=== PATIENT | female | born 1995 | race Caucasian/White ===

== ENCOUNTER 2024-01-27 18:59 | Outpatient (REF) | payer BC, OTHER, SELFPAY ==
[2024-02-02 09:09] LABS: Age Gdln ACOG Testing Note (.); IGP, rfx Aptima HPV ASCU Note (.)
== END 2024-01-27 19:00 | disposition home or self-care (01) ==
LOC: LAB 18:59
PROVIDERS: PCP Family Medicine; Visit Provider Physician Assistant
DX: Z01.419 Encounter for gynecological examination (general) (routine) without abnormal findings (principal)
CPT/HCPCS: 88175

== ENCOUNTER 2024-02-03 10:31 | Outpatient (OUT) | payer BC, OTHER, SELFPAY ==
--- NOTE | 2024-02-03 10:34 | US_ITS ---
[address] [address] Patient Name: FAHEEM BABB MRN: [id number] date: 1995 Sex: F Assigned Patient Location: [facility] Current Patient Location: LAB Accession/Order Number: [id number] Exam Date: 02/03/2024 10:36 Report Date: 02/03/2024 11:31 At the request of: TRISTA BIRCH Procedure: US pelvis EXAMINATION: US pelvis HISTORY: PELVIC PAIN for 6 months increasing in severity COMPARISON: No relevant comparison available. TECHNIQUE: Transabdominal and/or transvaginal sonographic examination was performed as indicated by examination type. FINDINGS: UTERUS: Normal size and appearance. Uterus size: 9.1 x 3.0 x 4.7 cm ENDOMETRIUM: Normal homogeneous appearance. Endometrial thickness: 4 mm RIGHT OVARY: Normal size and appearance. Duplex Doppler demonstrates normal waveform and flow; resistive index 0.5. Ovary size: 4.0 x 2.3 x 3.9 cm LEFT OVARY: Normal size and appearance. Duplex Doppler demonstrates normal waveform and flow; resistive index 0.6. Ovary size: 4.5 x 2.3 x 2.4 cm CUL-DE-SAC: Unremarkable. No significant free fluid. BLADDER: Unremarkable. OTHER: None. US/US pelvis IMPRESSION: 1. Normal pelvic ultrasound. Electronically authenticated by: FERMIN JIMENEZ Date: 02/03/2024 11:31
== END 2024-02-03 10:32 | disposition home or self-care (01) ==
LOC: NOMS 10:32
PROVIDERS: PCP Family Medicine; Visit Provider Obstetrics & Gynecology
DX: R10.2 Pelvic and perineal pain (principal)
CPT/HCPCS: 76856

== ENCOUNTER 2024-03-21 12:39 | Outpatient (OUT) | payer BC, OTHER, SELFPAY ==
--- NOTE | 2024-03-21 12:54 | XR_ITS ---
The [address] [address] Patient Name: FAHEEM BABB MRN: [id number] date: 1995 Sex: F Assigned Patient Location: US Current Patient Location: US Accession/Order Number: [id number] Exam Date: 03/21/2024 13:38 Report Date: 03/22/2024 11:48 At the request of: PURNIMA PINEDO Procedure: XR abdomen 1V EXAMINATION: XR abdomen 1V HISTORY: Kidney Stones COMPARISON: Ultrasound renal bilateral 03/21/2024 FINDINGS: KIDNEY/URETER - RIGHT: No visible renal or ureteral calcifications. KIDNEY/URETER - LEFT: No visible renal or ureteral calcifications. PELVIS: No convincing ureteral stones. Tiny calcification within lower right and lower left pelvis are nonspecific but favor phleboliths. BOWEL: No abnormal dilation or deviation. BONES: No acute abnormality. OTHER: Negative. No abnormal gaseous collections. XR/XR abdomen 1V IMPRESSION: 1. No visible urinary tract calculi on this study. Evaluation is limited by dense overlying bowel content. 2. Ultrasound of the kidneys performed on the same day showed several nonobstructing stones within the kidneys. Electronically authenticated by: FERMIN JIMENEZ Date: 03/22/2024 11:48
--- NOTE | 2024-03-21 12:54 | US_ITS ---
The [address] [address] Patient Name: FAHEEM BABB MRN: [id number] date: 1995 Sex: F Assigned Patient Location: US Current Patient Location: Accession/Order Number: [id number] Exam Date: 03/21/2024 12:58 Report Date: 03/22/2024 06:57 At the request of: PURNIMA PINEDO Procedure: US renal BI EXAMINATION: US renal BI HISTORY: Kidney Stones COMPARISON: No relevant comparison available. TECHNIQUE: Ultrasound examination was performed of the kidneys and urinary bladder. FINDINGS: RIGHT KIDNEY: Contain several small nonobstructing stones. Normal parenchymal echogenicity. Color Doppler demonstrates blood flow within the kidney. Kidney: 11.3 x 4.4 x 4.7 cm LEFT KIDNEY: Contain several nonobstructing stones, largest is 6 mm. Normal parenchymal echogenicity. Color Doppler demonstrates blood flow within the kidney. Kidney: 11.6 x 5.3 x 5.5 cm BLADDER: No visible wall thickening, mass, or calculi. Post void residual: 5 mL URETERAL JETS: Visualized bilaterally. US/US renal BI IMPRESSION: 1. Bilateral nonobstructing nephrolithiasis. Electronically authenticated by: FERMIN JIMENEZ Date: 03/22/2024 06:57
== END 2024-03-21 12:40 | disposition home or self-care (01) ==
LOC: US 12:40
PROVIDERS: PCP Family Medicine; Visit Provider Nurse Practitioner Family
DX: N20.0 Calculus of kidney (principal)
CPT/HCPCS: 74018; 76775

== ENCOUNTER 2024-03-21 12:43 | Outpatient (OUT) | payer BC, OTHER, SELFPAY | END 2024-03-21 12:44 | disposition home or self-care (01) | LOC: PST 12:43 | PROVIDERS: PCP Family Medicine; Visit Provider Obstetrics & Gynecology | DX: Z01.818 Encounter for other preprocedural examination (principal); R10.2 Pelvic and perineal pain ==

== ENCOUNTER 2024-04-01 07:07 | Day surgery (SDC) | payer BC, OTHER, SELFPAY ==
[2024-03-21 14:37] VITALS: BP 112/73; PULSE 68; TEMP 36.4; O2SAT 99; BMI 22.0
[2024-04-01] VITALS (12 sets, daily range): BP systolic 95–114; BP diastolic 62–81; PULSE 70–94; TEMP 36.1–36.3; O2SAT 95–100; BMI 22.0
--- OUTSIDE RECORDS SUMMARY | 2024-04-01 07:12 | XMS_ITS | CCD ---
Author Organization [facility] ion Partnership [facility] Care Team Providers Care Exhibition Specialist Name Role Phone Sri Ramírez MD Primary Care Provider JASON FABIAN Referring Unavailable DESIREE SRI Samaria Primary Care Unavailable JASON FABIAN Referring Unavailable DESIREE SRI Samaria Primary Care Unavailable JASON FABIAN Referring Unavailable DESIREE SRI Samaria Primary Care Unavailable JASON FABIAN Referring Unavailable DESIREE SRI Samaria Primary Care Unavailable DESIREE, DR BAER Primary Care Unavailable BK DENT Admitting Unavailable BK DENT Attending Unavailable DEVAUGHNCHALISA VALDEZ Consulting Unavailable MAXIM, DR WESTON Admitting Unavailable MAXIM, DR WESTON Attending Unavailable DESIREE, DR BAER Primary Care Unavailable MAXIM, DR WESTON Consulting Unavailable DESIREE SRI Samaria Primary Care Unavailable DILCIA LAZO Attending Unavailable Desiree DILLON Sri Samaria Primary Care Provider Kayla Kahn DO Unavailable [phone] [place] BRUNSON-Elvie ENCISO Unavailable SRI RAMÍREZ Primary Care Physician [phone] Kayla Kahn DO R Unavailable SRI RAMÍREZ Attending Unavailable ELVIE BARAHONA Attending Unavailab ALEXIS Camacho Attending Unavailable ALEXIS DONG Attending Unavailable ALEXIS DONG Referring Unavailable SRI RAMÍREZ Attending Unavailable ELVIE BARAHONA Attending Unavailab ELVIE Singer Attending Unavailab TRISTA El Attending Unavailable DAJA EPPERSON Attending Unavailable TRISTA PAN Attending Unavailable TRISTA PAN Attending Unavailable Bonita Yu Attending Unavailable Bonita Yu Attending Unavailable Mitra Ellis Admitting Unavailable Mitra Ellis Attending Unavailable Allergies Allergy Classification Reported Allergen(s) Allergy Type Date of Onset Reaction(s) Facility (16 sources) Bacitracin / Polymyxin B; Translations: [bacitracin-taylor ymyxin B topical] Drug Allergy 3 Unknown (qualifier value) [facility] (16 sources) busPIRone; Translations: [buspirone] Drug Allergy 3 Anxiety, Anxiety (finding) [facility] (16 sources) Escitalopram; Translations: [escitalopram] Drug Allergy 3 Other, Drowsy (finding) [facility] (1 source) busPIRone; Translations: [BuSpar] Drug Allergy [facility] (1 source) Escitalopram; Translations: [Lexapro] Drug Allergy [facility] (1 source) Bacitracin-Poly myxin; Translations: [Bacitracin-Taylor ymyxin] Propensity to adverse reactions (disorder) [facility] Medications Current Medications Medication Drug Class(es) Dates Sig (Normalized) Sig (Original) azithromycin 500 mg oral tablet (4 sources) Macrolide Antimicrobial Start: 02-15-2024 take 1 tablet by mouth once daily azithromycin (Zithromax) 500 MG tablet Indications: Bacterial infection due to mycoplasma Day 1: Take 2 tablets PO onetime dose; Day 2,3,4: Take 1 tablet daily 5 tablet 02/15/2024 Active Clindamycin (1 source) Lincosamide Antibacterial Start: 03-09-2024 End: 03-10-2024 Clindamycin Phosphate (Xaciato) 2 % gel Indications: Bacterial vaginosis Insert 1 applicator into the vagina at bedtime for 1 day 8 g 03/09/2024 03/10/2024 Active doxycycline hyclate 100 mg oral capsule (9 sources) Tetracycline-class Drug Start: 02-15-2024 End: 02-22-2024 doxycycline (Vibramycin) 100 MG capsule Indications: Bacterial infection due to mycoplasma Take 1 capsule (100 mg) by mouth in the morning and 1 capsule (100 mg) before bedtime. Do all this for 7 days. Take with at least 8 ounces (large glass) of water, do not lie down for 30 minutes after. 14 capsule 02/15/2024 02/22/2024 Active Start: 01-11-2024 End: 2024 doxycycline (Vibramycin) 100 MG capsule Indications: Pelvic pain in female Take 1 capsule (100 mg) by mouth in the morning and 1 capsule (100 mg) before bedtime. Take with at least 8 ounces (large glass) of water, do not lie down for 30 minutes after. 60 capsule 01/11/2024 2024 Active escitalopram 5 mg oral tablet (4 sources) Serotonin Reuptake Inhibitor Start: 06-08-2021 escitalopram (LEXAPRO) 5 MG tablet metroNIDAZOLE 0.0075 mg/mg vaginal gel (6 sources) Nitroimidazole Antimicrobial Start: 03-09-2024 End: 03-14-2024 metroNIDAZOLE (Metrogel) 0.75 % vaginal gel Indications: Bacterial vaginosis Insert into the vagina Daily for 5 days 70 g 03/09/2024 03/14/2024 Active Start: 2024 End: 02-17-2024 take 1 tablet by mouth in the morning metroNIDAZOLE (Flagyl) 500 MG tablet Indications: BV (bacterial vaginosis) Take 1 tablet (500 mg) by mouth in the morning and 1 tablet (500 mg) before bedtime. Do all this for 7 days. Do not drink alcohol while taking this medication. 14 tablet 2024 02/17/2024 Active Start: 01-13-2024 End: 01-27-2024 take 1 tablet by mouth in the morning metroNIDAZOLE (Flagyl) 500 MG tablet Indications: BV (bacterial vaginosis) Take 1 tablet (500 mg) by mouth in the morning and 1 tablet (500 mg) before bedtime. Do all this for 7 days. Do not drink alcohol while taking this medication. 14 tablet 01/13/2024 01/27/2024 Discontinued moxifloxacin 400 mg oral tablet (2 sources) Quinolone Antimicrobial Start: 02-15-2024 End: 02-22-2024 take 1 tablet by mouth once daily moxifloxacin (Avelox) 400 MG tablet Indications: Bacterial infection due to mycoplasma Take 1 tablet (400 mg) by mouth Daily for 7 days start medication AFTER completing course of Doxycycline & Azithromycin. 7 tablet 02/15/2024 02/22/2024 Active polyethylene glycol 3350 17757 mg powder for oral solution (4 sources) Osmotic Laxative Start: 06-12-2021 End: 07-12-2021 polyethylene glycol (GLYCOLAX) 17 GM/SCOOP powder Take 17 g by mouth daily 1530 g 1 06/12/2021 07/12/2021 Active tamsulosin hydrochloride 0.4 mg oral capsule (4 sources) alpha-Adrenergic Yaquelin Start: 06-12-2021 take 1 capsule by mouth once daily tamsulosin (FLOMAX) 0.4 MG capsule Take 1 capsule by mouth daily 30 capsule 0 06/12/2021 Active Completed/Discontinued Medications Medication Drug Class(es) Dates Sig (Normalized) Sig (Original) atomoxetine 40 mg oral capsule (3 sources) Norepinephrine Reuptake Inhibitor End: 01-11-2024 take 1 capsule by mouth once daily atomoxetine (Strattera) 40 MG capsule Take 1 capsule by mouth Daily 01/11/2024 Discontinued (Other) sertraline 25 mg oral tablet (3 sources) Serotonin Reuptake Inhibitor Start: 11-16-2023 End: 11-15-2024 take 1 tablet by mouth once daily sertraline (Zoloft) 25 MG tablet Indications: Generalized anxiety disorder (CMS/HCC) Take 1 tablet (25 mg) by mouth Daily 30 tablet 1 11/16/2023 01/11/2024 Discontinued (Other) Problems Active Problems Problem Classification Problem Date Documented Da te Episodic/Chronic Abdominal pain (20 sources) Suprapubic pain; Translations: [Pelvic and perineal pain] Onset: 09-06-2022 Episodic Adjustment disorders (16 sources) Adjustment disorder with mixed anxiety and depressed mood; Translations: [Adjustment disorder with mixed anxiety and depressed mood] Onset: 09-06-2022 09-06-2022 Chronic Allergic reactions (1 source) Unspecified contact dermatitis, unspecified cause; Translations: [UNS CONTACT DERMATITIS UNS CAUSE] Onset: 05-05-2022 Episodic Anxiety disorders (20 sources) Anxiety; Translations: [Anxiety disorder, unspecified] Onset: 09-06-2022 09-06-2022 Chronic Bacterial infection; unspecified site (6 sources) Mycoplasma infection; Translations: [Mycoplasma infection, unspecified site] Onset: 02-15-2024 02-15-2024 Episodic Calculus of urinary tract (11 sources) Kidney stone; Translations: [Calculus of kidney] Onset: 07-25-2013 03-27-2014 Episodic Genitourinary symptoms and ill-defined conditions (13 sources) Dysuria; Translations: [Dysuria] Onset: 03-01-2024 Episodic Inflammatory diseases of female pelvic organs (7 sources) Bacterial vaginosis; Translations: [Acute vaginitis] Onset: 02-15-2024 02-15-2024 Episodic Menstrual disorders (20 sources) Amenorrhea; Translations: [Amenorrhea, unspecified] Onset: 09-06-2022 09-06-2022 Chronic Mood disorders (16 sources) Bipolar affective disorder, currently depressed, moderate; Translations: [Bipolar disorder, current episode depressed, moderate] Onset: 09-06-2022 09-06-2022 Chronic Other diseases of kidney and ureters (3 sources) Hydronephrosis; Translations: [Hydronephrosis with renal and ureteral calculous obstruction] Episodic Other female genital disorders (6 sources) Vaginal odor; Translations: [Other specified noninflammatory disorders of vagina] Onset: 02-15-2024 02-15-2024 Episodic Other gastrointestinal disorders (16 sources) Irritable bowel syndrome with diarrhea; Translations: [Irritable bowel syndrome with diarrhea] Onset: 09-06-2022 09-06-2022 Chronic Other gastrointestinal disorders (16 sources) Slow transit constipation; Translations: [Slow transit constipation] Onset: 09-06-2022 09-06-2022 Episodic Other infections; including parasitic (16 sources) History of chlamydial infection; Translations: [Personal history of other infectious and parasitic diseases] Onset: 03-26-2020 10-21-2023 Episodic Other inflammatory condition of skin (3 sources) Pruritus, unspecified; Translations: [PRURITUS UNSPECIFIED] Onset: 05-03-2022 Episodic Other nervous system disorders (16 sources) Inattention; Translations: [Attention and concentration deficit] Onset: 09-06-2022 09-06-2022 Chronic Urinary tract infections (7 sources) Cystitis, unspecified with hematuria; Translations: [Urinary tract infectious disease] Onset: 09-22-2023 02-15-2024 Episodic Past or Other Problems Problem Classification Problem Date Documented Date Episodic/Chronic Complication of device; implant or graft (13 sources) Disorder of intrauterine contraceptive device; Translations: [Unspecified complication of genitourinary prosthetic device, implant and graft, initial encounter] Onset: 09-06-2022 09-06-2022 Episodic Immunizations and screening for infectious disease (1 source) Encounter for screening for human papillomavirus (HPV); Translations: [ENC SCREENING HUMAN PAPILLOMAVIRUS] Onset: 05-22-2021 Episodic Other complications of (13 sources) Anxiety in ; Translations: [Other mental disorders complicating , unspecified trimester] Onset: 03-26-2020 11-17-2022 Episodic Other complications of (13 sources) 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 ; Translations: [Other mental disorders complicating , unspecified trimester] Onset: 03-26-2020 11-17-2022 Episodic Other screening for suspected conditions (not mental disorders or infectious disease) (4 sources) Encounter for screening for malignant neoplasm of cervix; Translations: [ENC SCREENING MALIG NEOPLASM CERV] Onset: 05-21-2021 Episodic Results Test Name Value Interpretation Reference Range Facility C Urineon 03-24-2024 Bacteria identified Cx Nom (U) Microbiology PROCEDURE: Urine Culture [R1] SOURCE: U CleanCatch BODY SITE: COLLECTED DATE/TIME: 03/21/2024 16:10 EST RECEIVED DATE/TIME: 03/22/2024 18:32 EST START DATE/TIME: 03/22/2024 18:32 EST FREE TEXT SOURCE: Mitra Mcfarlane Alysha J FINAL REPORTS Final Report [] Verified Date/Time: 03/24/2024 09:13 EST >100,000 cfu/ml Klebsiella pneumoniae SUSCEPTIBILITY RESULTS LEGEND: S=Susceptible, N/R=Not Reported, Blank=Data not available, or drug not advisable or tested, I=Intermediate, ESBL=Extended spectrum beta-lactamase, R=Resistant, TFG=Thymidine-depende nt strain, PAUL=Beta-lactamase positive, RIO=mcg/m;(mg/L), S*=Predicted susceptible interp, R*=Predicted resistant interp Klepne Antibiotic RIO Dilutn RIO Interp Ampicillin >16 R Ampicillin/ <=8/4 S Sulbactam Aztreonam <=4 S Cefazolin <=2 S Cefepime <=2 S Ceftazidime <=1 S Ceftazidime/ <=8 S Avibactam Ceftriaxone <=1 S Cefuroxime <=4 S Ciprofloxacin <=0.25 S Ertapenem <=0.5 S Gentamicin <=2 S Levofloxacin <=0.5 S Meropenem <=1 S Nitrofurantoin 64 I Piperacillin/ <=8 S Tazobactam Tetracycline >8 R Tobramycin <=2 S Trimethoprim/ <=2/38 S Sulfa Performing Locations R1: This test was performed at: [facility], [address] [place] [address], [phone]- , , [facility] Comment on above: Performed By: #### 2 [id number] #### [facility] [address] [place] [address] Reminderson 03-01-2024 Reminders Reminders From: Anayeli Laureano To: EU - Administrative; Sent: 03/01/2024 11:42:31 EST Show up: 03/22/2024 11:42:00 EST Subject: Ambulatory Reminder Due Date/Time: 05/28/2024 11:42:00 EST Reminder/Recall Patient needs scheduled with SUR[facility] for a 3 month F/U, due back in May 2024 Normal [facility] Urinalysis macro (dipstick) panel (U)on 02-15-2024 Bilirubin, UA Negative Negative - 4(70) +++ mg/dL [facility] Blood, UA Negative Negative - 50 Allen/mcL [facility] Clarity, UA Clear [facility] Color, UA Yellow [facility] [employer] Glucose, UA Negative Negative - 1999(110) ++++ mg/dL [facility] Interpretation and review of laboratory results Normal [facility] Ketones, UA Negative Negative - 160(16) ++++ mg/dL [facility] Leukocytes, UA Negative Negative - 500+++ Andrei/mcL [facility] Nitrite, UA Negative Negative - Positive [facility] pH, UA 7 5 - 9 [facility] [employer] [facility] Protein, UA Negative Negative - 1999(20) ++++ mg/dL [facility] Spec Grav, UA 1.01 1 - 1.[address] [facility] Urobilinogen, UA 0.2 0.2 - 12 mg/dL [facility] IGP,APTIMA HPV,AGE GDLNon AGE GDLN ACOG TESTING Note . [facility] Comment on above: TESTS RESULT FLAG UN ITS REF RANGE LAB Clinician Provided Cytology Information Source.............Cervix;Endocervix No. of containers..01 ThinPrep Vial Age Algo ACOG Dione... -11 05 FLAG LEGEND: L-Low Normal,H-High Normal,LL-Alert Low,HH-Alert High <-Panic Low,>-Panic High,A-Abnormal,AA-Critical Abnormal Performed at: 01 =[facility] [address] [place] [address] Cristiane Eduardo MD, IGP, RFX APTIMA HPV ASCU Note . [facility] Comment on above: TESTS RESULT FLAG UN ITS REF RANGE LAB DIAGNOSIS: 02 NEGATIVE FOR INTRAEPITHELIAL LESION OR MALIGNANCY. Specimen adequacy: 02 Satisfactory for evaluation. Endocervical and/or squamous metaplastic cells (endocervical component) are present. Performed by: Jemma Sin, Surgery Technician (ASC) . 02 Note: Note 03 The Pap smear is a screening test designed to aid in the detection of premalignant and malignant conditions of the uterine cervix. It is not a diagnostic procedure and should not be used as the sole means of detecting cervical cancer. Both false-positive and false-negative reports do occur. Test Methodology: Note 03 This liquid based ThinPrep(R) pap test was screened with the use of an image guided system. . 02 The HPV DNA reflex criteria were not met with this specimen result therefore, no HPV testing was performed. FLAG LEGEND: L-Low Normal,H-High Normal,LL-Alert Low,HH-Alert High <-Panic Low,>-Panic High,A-Abnormal,AA-Critical Abnormal Performed at: 02 [facility] [address] [address] [address] [place] [address] Mayur Coleman MD, [address] [address] Cristiane Eduardo MD, Performed at: =G - [facility] [address] [id number] Book Coverer: Cristiane Eduardo MD, Phone: [phone] Performed at: [facility] - [facility] [address] [address] [place], [place] [id number] Book Coverer: Mayur Coleman MD, Phone: [phone] BRUSH-SPATULA CERVIX ENDOCERVIX CL[facility]ISYNC [facility] Cytology Cervical or vaginal smear or scraping studyon 01-27-2024 [facility] No Panel Informationon 01-12 STAPHYLOCOCCUS EPIDERMIDIS, HAEMOLYTICUS, LUGDUNENSIS, SAPROPHYTICUS (URINA [address] [facility] STAPHYLOCOCCUS EPIDERMIDIS, HAEMOLYTICUS, LUGDUNENSIS, SAPROPHYTICUS (URINA Not detected [facility] URINARY TRACT INFECTION (HTR X)on 01-13-2024 ACINETOBACTER BAUMANII 0.000 [facility] ACINETOBACTER BAUMANII Not detected [facility] REAL ALBICANS, PARAPSILOSIS, TROPICALIS 0.000 [facility] REAL ALBICANS, PARAPSILOSIS, TROPICALIS Not detected [facility] Healthcare REAL GLABRATA 0.000 [facility] GLAB[facility] Not detected [facility] ealthcare REAL KRUSEI 0.000 [facility] REAL KRUSEI Not detected [facility] Hea lthcare CITROBACTER FREUNDII 0.000 [facility] Healthcare CITROBACTER FREUNDII Not detected NO [facility] ENTEROBACTER AEROGENES, CLOACAE 0.000 [facility] re ENTEROBACTER AEROGENES, CLOACAE Not detected [facility] ENTEROCOCCUS FAECALIS, FAECIUM 0.000 [facility] ENTEROCOCCUS FAECALIS, FAECIUM Not detected [facility] ESCHERICHIA COLI 0.000 [facility] ESCHERICHIA COLI Not detected [facility] H ealthcare KLEBSIELLA PNEUMONIAE, OXYTOCA 0.000 [facility] are KLEBSIELLA PNEUMONIAE, OXYTOCA Not detected [facility] are MORGANELLA MORGANII 0.000 [facility] MORGANELLA MORGANII Not detected [facility] PROTEUS MIRABILIS, VULGARIS 0.000 [facility] PROTEUS MIRABILIS, VULGARIS Not detected [facility] PSEUDOMONAS AERUGINOSA 0.000 [facility] PSEUDOMONAS AERUGINOSA Not detected [facility] SERRATIA MARCESCENS 0.000 [facility] SERRATIA MARCESCENS Not detected [facility] STAPHYLOCOCCUS AUREUS 0.000 [facility] STAPHYLOCOCCUS AUREUS Not detected [facility] STREPTOCOCCUS AGALACTIAE (GROUP B STREP) 0.000 [facility] STREPTOCOCCUS AGALACTIAE (GROUP B STREP) Not detected [facility] STREPTOCOCCUS PYOGENES (GROUP A STREP) 0.000 [facility] STREPTOCOCCUS PYOGENES (GROUP A STREP) Not detected [facility] HCG ( test) Ql (U)o n 01-11-2024 Interpretation and review of laboratory results Normal [facility] Preg Test, Ur Negative [facility] Urinalysis macro (dipstick) panel (U)on 01-11-2024 Bilirubin, UA Negative Negative - 4(70) +++ mg/dL [facility] Blood, UA Positive Negative - 50 Allen/mcL [facility] Clarity, UA Clear [facility] re Color, UA Yellow [facility] Glucose, UA Negative Negative - 1999(110) ++++ mg/dL [facility] Interpretation and review of laboratory results Abnormal [facility] Ketones, UA Positive Negative - 160(16) ++++ mg/dL [facility] Leukocytes, UA Negative Negative - 500+++ Andrei/mcL [facility] Nitrite, UA Negative Negative - Positive [facility] pH, UA 6.5 5 - 9 [facility] e Protein, UA Negative Negative - 1999(20) ++++ mg/dL [facility] Spec Grav, UA 1.015 1 - 1.[address] [facility] Urobilinogen, UA 1.0 0.2 - 12 mg/dL [facility] XR CERVICAL SPINE COMPLETE 4 -5 VIEWSon 09-28-2023 XR CERVICAL SPINE COMPLETE 4-5 VIEWS FINDINGS: Normal disc space heights. No significant osteophyte formation. Mild diffuse facet arthropathy. No significant neuroforaminal compromise. IMPRESSION: Minimal arthritis, normal alignment. TRANSCRIBED BY: ELECTRONICALLY SIGNED BY: Elpidio Díaz MD Normal Not Available Cult,Urineon 09-23-2023 Cult,Urine Specimen Description .URINE Unknown Culture NO SIGNIFICANT GROWTH Report Status FINAL 09/23/[address] [facility] Comment on above: Performed By: #### U RC #### [address] [place] [address] Book Coverer: Moisés Carl MD [place] [phone] Book Coverer: Wan Morales MD HCG, ,Urineon 09-21 Beta HCG ( test) Ql (U) Negative Normal NEG [facility] Comment on above: Result Comment: Spec imens with hCG levels near the threshold of the test (25 mIU/mL) may give a negative or indeterminate result. In such cases, another test should be performed with a new specimen in 48-72 hours. If early is suspected clinically in this setting, correlation with quantitative serum b-hCG level is suggested. Performed By: #### U AX VIDAL, UMICAO #### [address] [address] Book Coverer: Wan Morales MD UA w/Reflex Cultureon 2023 Bilirubin, SemiQt,Ur Negative Abnormal NEG [facility] Comment on above: Performed By: #### U AX UHCG, UMICAO #### [address] [address] Book Coverer: Wan Morales MD Blood, Urine LARGE Abnormal NEG [facility] Comment on above: Performed By: #### U AX, UHCG, UMICAO #### [address] [address] Book Coverer: Wan Morales MD Clarity (U) SLIGHTLY CLOUDY Abnormal CLEAR [facility] Comment on above: Performed By: #### U AX, UHCG, UMICAO #### [address] [address] Book Coverer: Wan Morales MD Color (U) Red Abnormal YEL [facility] Comment on above: Performed By: #### U AX, UHCG, UMICAO #### [place] [address] Book Coverer: Wan Morales MD Comment INTERPRET WITH CAUTION DUE TO INTENSE COLOR OF URINE. Normal [facility] Comment on above: Performed By: #### U AX, UHCG, UMICAO #### [address] [address] Book Coverer: Wan Morales MD Glucose Ql (U) Negative Normal NEG [facility] Comment on above: Performed By: #### U AX, UHCG, UMICAO #### [address] [address] Book Coverer: Wan Morales MD Ketones Ql (U) Negative Normal NEG [facility] Comment on above: Performed By: #### U AX, UHCG, UMICAO #### [address] [address] Book Coverer: Wan Morales MD Leukocyte esterase Test strip Ql (U) MODERATE Abnormal NEG [facility] Comment on above: Performed By: #### U AX, UHCG, UMICAO #### [address] [address] Book Coverer: Wan Morales MD Nitrite,Ur Positive Abnormal NEG [facility] Comment on above: Performed By: #### U AX, UHCG, UMICAO #### [place] [address] Book Coverer: Wan Morales MD PH,Ur 7.0 Normal 5.0-8.[address] [facility] Comment on above: Performed By: #### U AX UHCG, UMICAO #### [place] [address] Book Coverer: Wan Morales MD Protein Ql (U) 3+ mg/dL Abnormal NEG [facility] Comment on above: Performed By: #### U AX CG, UMICAO #### [place] [address] Book Coverer: Wan Morales MD Spec. Spencer,Ur 1.010 Normal 1.005-1.030 [facility] Comment on above: Performed By: #### U GRAZYNA VIDAL, UMICAO #### [place] [address] Book Coverer: Wan Morales MD Urobilinogen,Ur Normal Normal 0.0-1.[address] [facility] Comment on above: Performed By: #### U AX UHCG, UMICAO #### [place] [address] Book Coverer: Wan Morales MD Urinalysis,Microon 4 Bacteria MODERATE Abnormal NONE [facility] Comment on above: Performed By: #### U AX, UHCG, UMICAO #### [place] [address] Book Coverer: Wan Morales MD Epithelial cells LM Ql (Urine sed) 5 TO 10 Normal 0-[address] [facility] Comment on above: Performed By: #### U AX, UHCG, UMICAO #### [place] [address] Book Coverer: Wan Morales MD Other Observations Culture ordered base d on defined criteria. Abnormal NREQ [facility] Comment on above: Performed By: #### U AX, UHCG, UMICAO #### [place] [id number] Book Coverer: Wan Morales MD Urine RBC's TOO NUMEROUS TO COUNT Normal 0-2 [facility] Comment on above: Performed By: #### U AX, UHCG, UMICAO #### [place] [address] Book Coverer: Wan Morales MD Urine WBC's TOO NUMEROUS TO COUNT Normal 0-5 [facility] Comment on above: Performed By: #### U AX, UHCG, UMICAO #### [place] [address] Book Coverer: Wan Morales MD US RENAL COMPLETEon 06-21-19 US RENAL COMPLETE EXAMINATION: RETROPERITONEAL ULTRASOUND OF THE KIDNEYS AND URINARY BLADDER 06/19/2021 COMPARISON: None HISTORY: ORDERING SYSTEM PROVIDED HISTORY: Ureteral stone with hydronephrosis FINDINGS: Kidneys: The right kidney measures 11.9 cm in length and the left kidney measures 10.3 cm in length. Kidneys demonstrate normal cortical echogenicity. No evidence of hydronephrosis. Left renal stones measure up to 5 mm. Bladder: Unremarkable appearance of the bladder. No significant post void residual. IMPRESSION: 1. Nonobstructing left renal stones measuring up to 5 mm. 2. No hydronephrosis. Interpreted by: Sri Galeas MD Signed by: Sri Galeas MD 06/20/21 Final result Normal [facility] 1. Nonobstructing left renal stones measuring up to 5 mm. 2. No hydronephrosis. [facility] EXAMINATION: RETROPERITONEAL ULTRASOUND OF THE KIDNEYS AND URINARY BLADDER 06/19/2021 COMPARISON: None HISTORY: ORDERING SYSTEM PROVIDED HISTORY: Ureteral stone with hydronephrosis FINDINGS: Kidneys: The right kidney measures 11.9 cm in length and the left kidney measures 10.3 cm in length. Kidneys demonstrate normal cortical echogenicity. No evidence of hydronephrosis. Left renal stones measure up to 5 mm. Bladder: Unremarkable appearance of the bladder. No significant post void residual. [facility] Sri Galeas MD - 06/20/2021 EXAMINATION: RETROPERITONEAL ULTRASOUND OF THE KIDNEYS AND URINARY BLADDER 06/19/2021 COMPARISON: None HISTORY: ORDERING SYSTEM PROVIDED HISTORY: Ureteral stone with hydronephrosis FINDINGS: Kidneys: The right kidney measures 11.9 cm in length and the left kidney measures 10.3 cm in length. Kidneys demonstrate normal cortical echogenicity. No evidence of hydronephrosis. Left renal stones measure up to 5 mm. Bladder: Unremarkable appearance of the bladder. No significant post void residual. IMPRESSION: 1. Nonobstructing left renal stones measuring up to 5 mm. 2. No hydronephrosis. [employer] Phone: US RENAL COMPLETEOrdered By: Sri Galeas on 06-20-2021 [employer] Phone: US RENAL COMPLETEon 06-20-19 Radiology Study observation (narrative) [employer] Phone: XR ABDOMEN (KUB) (SINGLE AP VIEW)on 06-19-2021 XR ABDOMEN (KUB) (SINGLE AP VIEW) EXAMINATION: ONE SUPINE XRAY VIEW(S) OF THE ABDOMEN 06/19/2021 4:30 pm COMPARISON: None. HISTORY: ORDERING SYSTEM PROVIDED HISTORY: Ureteral stone with hydronephrosis TECHNOLOGIST PROVIDED HISTORY: susprected ureteral stone with hydro on prior US and KUB, no ureteral jet noted on right FINDINGS: The bowel gas pattern is nonobstructive. No calcifications are seen projecting over the renal silhouettes. No definite calcifications are seen along the course of the urine collecting system. Osseous structures are normal. IMPRESSION: No definite evidence of renal or ureteral stones. Interpreted by: See Herrera Signed by: See Herrera 06/19/21 Final result Normal [facility] No definite evidence of renal or ureteral stones. [facility] EXAMINATION: ONE SUPINE XRAY VIEW(S) OF THE ABDOMEN 06/19/2021 4:30 pm COMPARISON: None. HISTORY: ORDERING SYSTEM PROVIDED HISTORY: Ureteral stone with hydronephrosis TECHNOLOGIST PROVIDED HISTORY: susprected ureteral stone with hydro on prior US and KUB, no ureteral jet noted on right FINDINGS: The bowel gas pattern is nonobstructive. No calcifications are seen projecting over the renal silhouettes. No definite calcifications are seen along the course of the urine collecting system. Osseous structures are normal. [facility] See Herrera - 06/19/2021 EXAMINATION: ONE SUPINE XRAY VIEW(S) OF THE ABDOMEN 06/19/2021 4:30 pm COMPARISON: None. HISTORY: ORDERING SYSTEM PROVIDED HISTORY: Ureteral stone with hydronephrosis TECHNOLOGIST PROVIDED HISTORY: susprected ureteral stone with hydro on prior US and KUB, no ureteral jet noted on right FINDINGS: The bowel gas pattern is nonobstructive. No calcifications are seen projecting over the renal silhouettes. No definite calcifications are seen along the course of the urine collecting system. Osseous structures are normal. IMPRESSION: No definite evidence of renal or ureteral stones. [employer] Phone: Radiology Study observation (narrative) [employer] Phone: XR ABDOMEN (KUB) (SINGLE AP VIEW)Ordered By: See Herrera on 06-19-2021 [employer] Phone: Cult,Urineon 06-14-2021 Cult,Urine Specimen Description .VOIDED URINE Culture NO SIGNIFICANT GROWTH Report Status FINAL 06/14/2021 Normal [facility] Comment on above: Performed By: #### U #### [facility] [employer] [address] [place] [address] Book Coverer: Moisés Carl MD [facility] [address] [place] [address] Book Coverer: Filemon Gutiérrez MD Urinalysis w/ Microon 2021 ----- Normal [facility] Comment on above: Performed By: #### U AMIC #### [facility] [address] [place], [place] [id number] Book Coverer: Filemon Gutiérrez MD Epithelial cells LM Ql (Urine sed) 2 TO 5 Normal 0-25 [facility] Comment on above: Performed By: #### U AMIC #### [facility] [address] [place], [place] [id number] Book Coverer: Filemon Gutiérrez MD Urine RBC's 0 TO 2 Normal 0-2 [facility] Comment on above: Performed By: #### U AMIC #### [facility] [address] [place], [place] [id number] Book Coverer: Filemon Gutiérrez MD Urine WBC's 0 TO 2 Normal 0-5 [facility] Comment on above: Performed By: #### U AMIC #### [facility] [address] [place], [place] [id number] Book Coverer: Filemon Gutiérrez MD Bilirubin, SemiQt,Ur Negative Normal NEG [facility] Comment on above: Performed By: #### U AMIC #### [facility] [address] [place], [place] [id number] Book Coverer: Filemon Gutiérrez MD Blood, Urine Negative Normal NEG [facility] Comment on above: Performed By: #### U AMIC #### [facility] [address] [place], [place] [id number] Book Coverer: Filemon Gutiérrez MD Clarity (U) Clear Normal CLEAR [facility] Comment on above: Performed By: #### U AMIC #### [facility] [address] [place], [place] [id number] Book Coverer: Filemon Gutiérrez MD Color (U) Yellow Normal YEL [facility] Comment on above: Performed By: #### U AMIC #### [facility] [address] [place] [address] Dr[address] [place], [place] [id number] Book Coverer: Filemon Gutiérrez MD Glucose Ql (U) Negative Normal NEG [facility] Comment on above: Performed By: #### U AMIC #### [facility] [address] [place], [place] [id number] Book Coverer: Filemon Gutiérrez MD Ketones Ql (U) Negative Normal NEG [facility] Comment on above: Performed By: #### U AMIC #### [facility] [address] [place] [address] Dr. [place], [place] [id number] Book Coverer: Filemon Gutiérrez MD Leukocyte esterase Test strip Ql (U) Negative Normal NEG [facility] Comment on above: Performed By: #### U AMIC #### [facility] [address] [place], [place] [id number] Book Coverer: Filemon Gutiérrez MD Nitrite,Ur Negative Normal NEG [facility] Comment on above: Performed By: #### U AMIC #### [facility] [address] [place] [address] Dr. [place], [place] [id number] Book Coverer: Filemon Gutiérrez MD PH,Ur 7.0 Normal 5.0-9.0 [facility] Comment on above: Performed By: #### U AMIC #### [facility] [address] [place], [place] [phone] Book Coverer: Filemon Gutiérrez MD Protein Ql (U) Negative Normal NEG [facility] Comment on above: Performed By: #### U AMIC #### [facility] [address] [place] [address] [place] [address] Book Coverer: Filemon Gutiérrez MD Spec. Spencer,Ur 1.010 Normal 1.010-1.020 [facility] Comment on above: Performed By: #### U AMIC #### [facility] [address] [place], [place] [phone] Book Coverer: Filemon Gutiérrez MD Urobilinogen,Ur Normal Normal NORM [facility] Comment on above: Performed By: #### U AMIC #### [facility] [address] [place] [address] Book Coverer: Filemon Gutiérrez MD Urinalysis with Microscopico n 06-12-2021 - [facility] Bilirubin Urine Negative NEGATIVE [facility] Color, UA Yellow Yellow [facility] Epithelial Cells UA 2 TO 5 [facility] Glucose, Ur Negative NEGATIVE [facility] Ketones Ql (U) Negative NEGATIVE [facility] Leukocyte esterase Test strip Ql (U) Negative NEGATIVE [facility] Nitrite, Urine Negative NEGATIVE [facility] pH, UA 7.0 [facility] Protein, UA Negative NEGATIVE [facility] RBC, UA 0 TO 2 [facility] Specific Spencer, UA 1.010 [facility] Turbidity UA Clear Clear [facility] Urine Hgb Negative NEGATIVE [facility] Urobilinogen, Urine Normal Normal [facility] WBC, UA 0 TO 2 [facility] PAP ACOG PANEL 2: 21 to 29on 05-25-2021 . . Normal [facility] Comment on above: Performed By: #### [id number] #### [facility] [address] [place] [address] Age Gdln ACOG Testing - [facility] Comment on above: Performed By: #### 4 [id number] #### [facility] [address] DIAGNOSIS: Comment [facility] Comment on above: Result Comment: NEGA TIVE FOR INTRAEPITHELIAL LESION OR MALIGNANCY. Performed By: #### 4 [id number] #### [facility] [address] [place] [address] Methodology: Comment [facility] Comment on above: Result Comment: This liquid based ThinPrep(R) pap test was screened with the use of an image guided system. Performed By: #### 4 [id number] #### [facility] [address] Note: Comment Normal [facility] Comment on above: Result Comment: The Pap smear is a screening test designed to aid in the detection of premalignant and malignant conditions of the uterine cervix. It is not a diagnostic procedure and should not be used as the sole means of detecting cervical cancer. Both false-positive and false-negative reports do occur. . Performed By: #### 4 [id number] #### [facility] [address] Performed by: Comment Normal [facility] Comment on above: Result Comment: Mariia Negron Surgery Technician (ASCP) Performed By: #### 4 [id number] #### [facility] [address] [place] [address] Reflex Criteria: Comment Normal [facility] Comment on above: Result Comment: The HPV DNA reflex criteria were not met with this specimen result therefore, no HPV testing was performed. . Performed By: #### 4 [id number] #### [facility] [address] [place] [address] Specimen adequacy: Comment Normal [facility] Comment on above: Result Comment: Sati sfactory for evaluation. Endocervical and/or squamous metaplastic cells (endocervical component) are present. Performed By: #### 4 [id number] #### [facility] [address] [place] [address] Vital Signs Date Time Vital Sign Value Performing Clinician Facility 03-09-2024 11:20-0500 Body mass index (BMI) [Ratio] 22.55 kg/m2 [place] Work Phone: [facility] 03-09-2024 11:20-0500 Body weight 65.32 kg [place] Work Phone: [facility] 03-09-2024 11:20-0500 Diastolic blood pressure 70 mm[Hg] [place] Work Phone: [facility] 03-09-2024 11:20-0500 Systolic blood pressure 114 mm[Hg] Trista Maxim DO Work Phone: [facility] 03-01-2024 10:47-0500 Blood Pressure Location Bonita Orzech [facility] 03-01-2024 10:47-0500 Diastolic blood pressure 66 mm[Hg] Bonita Orzech [facility] 03-01-2024 10:47-0500 Heart rate 79 /min Bonita Orzech [facility] 03-01-2024 10:47-0500 Respiratory rate 19 /min Bonita Orzech [facility] 03-01-2024 10:47-0500 Systolic blood pressure 102 mm[Hg] Bonita Orzech [facility] 02-15-2024 11:11-0500 Body mass index (BMI) [Ratio] 22.4 kg/m2 Trisat Maxim DO Work Phone: [facility] 02-15-2024 11:11-0500 Body weight 64.86 kg Trista Maxim DO Work Phone: [facility] 02-15-2024 11:11-0500 Diastolic blood pressure 70 mm[Hg] Trista Maxim DO Work Phone: [facility] 02-15-2024 11:11-0500 Systolic blood pressure 110 mm[Hg] Trista Maxim DO Work Phone: [facility] 01-27-2024 14:13-0400 Body mass index (BMI) [Ratio] 22.08 kg/m2 Daja CUELLAR Work Phone: [facility] 01-27-2024 14:13-0400 Body weight 63.96 kg Daja CUELLAR Work Phone: [facility] 01-27-2024 14:13-0400 Diastolic blood pressure 68 mm[Hg] Daja CUELLAR Work Phone: [facility] 01-27-2024 14:13-0400 Systolic blood pressure 110 mm[Hg] Daja CUELLAR Work Phone: [facility] 01-11-2024 11:52-0400 Body mass index (BMI) [Ratio] 22.42 kg/m2 Trista Maxim DO Work Phone: [facility] 01-11-2024 11:52-0400 Body weight 64.92 kg Trista Maxim DO Work Phone: [facility] 01-11-2024 11:52-0400 Diastolic blood pressure 72 mm[Hg] Trista Maxim DO Work Phone: [facility] 01-11-2024 11:52-0400 Systolic blood pressure 108 mm[Hg] Trista Maxim DO Work Phone: [facility] Encounters Encounter Date Encounter Type Care Provider Facility Start: 03-21-2024 End: 03-21-2024 ambulatory Mitra J Galea Facility:[facility] Start: 03-21-2024 End: 03-21-2024 Lab Drop off Mitra J Galea [facility] Start: 03-21-2024 End: 03-21-2024 ambulatory Bonita X Orzech Facility:[facility] Start: 03-21-2024 End: 03-21-2024 Patient encounter procedure Bonita X Orzech [facility] Start: 03-09-2024 End: 03-09-2024 Bamboo flowsheet Trista Maxim DO Work Phone: [facility] Start: 03-09-2024 End: 03-09-2024 Bamboo flowsheet Trista Maxim DO Work Phone: [facility] Start: 03-09-2024 End: 03-09-2024 Office outpatient visit 15 minutes Trista Maxim DO Work Phone: [facility] Comment on above: Pre-op evaluation; Pelvic pain in female; Bacterial vaginosis Start: 03-09-2024 End: 03-09-2024 Preprocedural examination done Trista Maxim DO Work Phone: [facility] Start: 03-09-2024 End: 03-09-2024 ambulatory TRISTA MAXIM Not Available Start: 03-01-2024 End: 03-01-2024 ambulatory Bonita X Orzech Facility:[facility] Start: 03-01-2024 End: 03-01-2024 Patient encounter procedure Bonita X Orzech [facility] Start: 02-15-2024 End: 02-15-2024 Bamboo flowsheet Trista Maxim DO Work Phone: [facility] Start: 02-15-2024 End: 02-15-2024 Bamboo flowsheet Trista Maxim DO Work Phone: [facility] Start: 02-15-2024 End: 02-15-2024 Office outpatient visit 15 minutes Trista Maxim DO Work Phone: [facility] Comment on above: Bacterial vaginosis; Urinary tract infection without hematuria, site unspecified; Vaginal odor; Bacterial infection due to mycoplasma Start: 02-15-2024 End: 02-15-2024 ambulatory TRISTA MAXIM Not Available Start: 01-27-2024 End: 01-27-2024 Bamboo flowsheet Daja CUELLAR Work Phone: [facility] Start: 01-27-2024 End: 02-02-2024 Bamboo flowsheet Daja CUELLAR Work Phone: [facility] Start: 01-27-2024 End: 02-02-2024 Clinisync Result Encounter Generic External Data Provider [facility] External [facility] Unsolicited Start: 01-27-2024 End: 01-27-2024 Patient encounter procedure Daja Epperson PA Work Phone: [facility] Work Phone: Start: 01-27-2024 End: 01-27-2024 Periodic preventive med est patient 18-39 yrs Daja Connor CUELLAR Work Phone: [facility] Comment on above: Well woman exam with routine gynecological exam Start: 01-27-2024 End: 01-27-2024 ambulatory DAJA EPPERSON Not Available Start: 01-11-2024 End: 01-11-2024 Bamboo flowsheet Trista Maxim DO Work Phone: [facility] Start: 01-11-2024 End: 01-13-2024 External Result Encounter Trista Maxim DO Work Phone: [facility] Unsolicited Start: 01-11-2024 End: 01-13-2024 External Result Encounter Trista Maxim DO Work Phone: [facility] Unsolicited Start: 01-11-2024 End: 01-11-2024 ambulatory TRISTA MAXIM Not Available Start: 01-11-2024 End: 01-11-2024 Office outpatient visit 15 minutes Trista Maxim DO Work Phone: [facility] Comment on above: Pelvic pain in femal e Start: 11-16-2023 End: 11-16-2023 ambulatory ELVIE M MARVEL-NOSSEK Not Available Start: 10-21-2023 End: 10-21-2023 ambulatory ELVIE M MARVEL-NOSSEK Not Available Start: 10-21-2023 End: 10-21-2023 ambulatory SRI Mera DESIREE Not Available Start: 09-28-2023 End: 09-28-2023 ambulatory ALEXIS DONG Not Available Start: 09-22-2023 End: 09-22-2023 Emergency department patient visit SRI RAMÍREZ [facility] Start: 08-03-2023 End: 08-03-2023 ambulatory ALEXIS DONG Not Available Start: 05-04-2023 End: 05-04-2023 ambulatory ELVIE Evans [place] Not Available Start: 05-04-2023 End: 05-04-2023 ambulatory SRI RAMÍREZ Not Available Start: 05-03-2022 End: 05-03-[address] SRI RAMÍREZ Facility:[facility] Start: 06-19-2021 End: 06-22-2021 ambulatory JASON Driscoll [facility] Start: 06-19-2021 End: 06-21-2021 Subsequent hospital visit by physician Juan Miguel Wilcox [address] [place] [address] Radiology Comment on above: Ureteral stone with hydronephrosis Ureteral stone with hydronephrosis; Suprapubic pain; Dysuria; Urgency of urination Start: 06-12-2021 End: 06-13-2021 ambulatory JASON FABIAN [facility] Start: 06-12-2021 End: 06-12-2021 Subsequent hospital visit by physician Sri Ramírez MD Work Phone: [facility] Laboratory Comment on above: Ureteral stone with hydronephrosis; Suprapubic pain; Dysuria; Urgency of urination Start: 05-21-2021 End: 05-21-[address] TRISTA PAN Facility:[facility] Procedures Date Procedure Procedure Detail Performing Clinician Start: 02-15-2024 Urnls dip stick/tabl et rgnt non-auto w/o micrscp Trista Maxim DO Work Phone: Start: 01-27-2024 IGP,APTIMA HPV,AGE GDLN Daja CUELLAR Work Phone: Start: 01-27-2024 Cytp cerv/vag auto t hin layer prep mnl screen Trista Maxim DO Work Phone: Start: 01-11-2024 URINARY TRACT INFECT ION (HTRX) Trista Pan DO Work Phone: Start: 01-11-2024 End: 01-11-2024 Urnls dip stick/tablet rgnt non-auto w/o micrscp Trista Maxim DO Work Phone: Start: 06-19-2021 Radiologic exam abdo men 1 view Jason Fabian SIGN PAINTER - INVESTMENT BANKING ANALYST Work Phone: Start: 06-19-2021 Us retroperitoneal r eal time w/image complete Jason Fabian SIGN PAINTER - INVESTMENT BANKING ANALYST Work Phone: Start: 06-12-2021 Urnls dip stick/tabl et reagent auto microscopy Jason Fabian SIGN PAINTER - INVESTMENT BANKING ANALYST Work Phone: Start: 04-13-2014 Lithotripsy Bonita Orz ech Plan of Treatment Date Care Activity Detail Author Start: 06-24-2030 DTaP/Tdap/Td vaccine (8 - Td or Tdap) DTaP/Tdap/Td vaccine (8 - Td or Tdap) [facility] Start: 02-06-2025 End: 02-06-2025 Patient encounter procedure 02/06/2025 11:00 AM EDT Office Visit [facility] [address] [place] [id number] Trista Pan, DO [address] [place], [place] [id number] [facility] Start: 03-09-2024 End: 03-09-2024 Patient encounter procedure 03/09/2024 11:20 AM EST Consult [facility] [address] [place] [id number] Trista Pan, DO [address] [place] [address] Arrived [facility] Comment on above: Arrived Start: 02-15-2024 End: 02-15-2024 Patient encounter procedure [facility] Comment on above: Arrived Start: 02-03-2024 End: 02-03-2024 Professional / ancillary services management 02/03/2024 10:30 AM EDT Ancillary Procedure [facility] [address] [place] [id number] [facility] Start: 01-27-2024 End: 01-27-2024 Patient encounter procedure [facility] Comment on above: Arrived Start: 01-20-2024 End: 01-20-2024 Professional / ancillary services management 01/20/2024 8:30 AM EDT Ancillary Procedure [facility] [address] [place] [phone] [facility] Start: 01-11-2024 End: 01-10-2025 SURESWAB(R) ADVANCED VAGINITIS PLUS, TMA SURESWAB(R) ADVANCED VAGINITIS PLUS, TMA Pathology and Cytology Routine Pelvic pain in female Expected: 01/11/2024 (Approximate), Expires: 01/10/2025 [facility] Work Phone: Comment on above: Expected: 01/11/2024 (Approximate), Expires: 01/10/2025 Start: 01-11-2024 End: 01-10-2025 US for US PELVIS-TRANSVAG IF INDICATED Imaging Routine Pelvic pain in female Expected: 01/11/2024 (Approximate), Expires: 01/10/2025 [facility] Comment on above: Expected: 01/11/2024 (Approximate), Expires: 01/10/2025 Start: 12-13-2023 Influenza vaccination Influenza Vacc ine (#1) [facility] Start: 06-27-2021 End: 06-27-2021 Patient encounter procedure 06/27/2021 Office Visit Urology Jason Fabian, SIGN PAINTER - INVESTMENT BANKING ANALYST [address] [facility] [address] [facility] [place] [address] [facility] Start: 06-19-2021 End: 06-19-2021 Patient encounter procedure 06/19/2021 Appointment Radiology [facility] Ultrasound Start: 03-04-2021 COVID-19 Vaccine (3 - Booster for Pfizer series) COVID-19 Vaccine (3 - Booster for Pfizer series) [facility] Start: 12-12-2020 Influenza vaccination Flu vaccine (# 1) [facility] Start: 2018 Screening for malign ant neoplasm of cervix Pap smear [facility] Start: 2013 Screening for Chlamy stan trachomatis Chlamydia screen [facility] Start: 02-11-2012 [facility] Start: 2009 Depression Screen Depression Screen [facility] Start: 2003 Pneumococcal 0-64 ye ars Vaccine (1 of 2 - PPSV23) Pneumococcal 0-64 years Vaccine (1 of 2 - PPSV23) [facility] Start: 1998 Varicella vaccine (1 of 2 - 2-dose childhood series) Varicella vaccine (1 of 2 - 2-dose childhood series) [facility] Start: 1997 Hepatitis C screening Hepatitis C sc reen [facility] Bacteria identified in Urine by Culture Urine culture Microbiology Routine Pelvic pain in female Ordered: 01/11/2024 [facility] Comment on above: Ordered: 01/11/2024 CHLAMYDIA TRACHOMATI S (GENITO/STI) CHLAMYDIA TRACHOMATIS (GENITO/STI) Lab Routine Vaginal odor Ordered: 02/15/2024 [facility] Comment on above: Ordered: 02/15/2024 CHLAMYDIA TRACHOMATI S (GENITO/STI) CHLAMYDIA TRACHOMATIS (GENITO/STI) Lab Routine Pelvic pain in female Ordered: 01/11/2024 [facility] Comment on above: Ordered: 01/11/2024 End: 06-12-2021 Culture, Urine [facility] Work Phone: Comment on above: 1 Occurrences starti ng 06/12/2021 until 06/12/2021 Cytology Cervical or vaginal smear or scraping study Pap Smear Pathology and Cytology Routine Well woman exam with routine gynecological exam Ordered: 01/27/2024 [facility] [employer] Work Phone: Comment on above: Ordered: 01/27/2024 Neisseria gonorrhoea e DNA [Presence] in Unspecified specimen by REKHA with probe detection Neisseria gonorrhea DNA probe, direct Lab Routine Vaginal odor Ordered: 02/15/2024 [facility] Comment on above: Ordered: 02/15/2024 Neisseria gonorrhoea e DNA [Presence] in Unspecified specimen by REKHA with probe detection Neisseria gonorrhea DNA probe, direct Lab Routine Pelvic pain in female Ordered: 01/11/2024 [facility] Comment on above: Ordered: 01/11/2024 SURESWAB(R) ADVANCED VAGINITIS PLUS, TMA SURESWAB(R) ADVANCED VAGINITIS PLUS, TMA Pathology and Cytology Routine Bacterial vaginosis Vaginal odor Ordered: 02/15/2024 [facility] Work Phone: Comment on above: Ordered: 02/15/2024 Immunizations Immunization Date Immunization Notes Care Provider [facility] 06-24-2020 diphtheria, tetanus toxoids and pertussis vaccine Trista Maxim DO Work Phone: [facility] 06-04-2010 human papilloma viru s vaccine, quadrivalent Trista Maxim DO Work Phone: [facility] 02-05-2010 human papilloma viru s vaccine, quadrivalent Trista Maxim DO Work Phone: [facility] 11-26-2009 human papilloma viru s vaccine, quadrivalent Trista Maxim DO Work Phone: [facility] 11-26-2009 tetanus toxoid, redu riky diphtheria toxoid, and acellular pertussis vaccine, adsorbed Trista Maxim DO Work Phone: [facility] 10-27-2002 diphtheria, tetanus toxoids and acellular pertussis vaccine, unspecified formulation Trista Maxim DO Work Phone: [facility] Work Phone: 10-27-2002 measles, mumps and rubella virus vaccine Trista Maxim DO Work Phone: [facility] 10-27-2002 poliovirus vaccine, inactivated Trista Maxim DO Work Phone: [facility] 05-15-1998 diphtheria, tetanus toxoids and acellular pertussis vaccine, unspecified formulation Trista Maxim DO Work Phone: [facility] 05-15-1998 haemophilus influenz ae type b vaccine, PRP-T conjugate Trista Maxim DO Work Phone: [facility] 05-15-1998 measles, mumps and rubella virus vaccine Trista Maxim DO Work Phone: [facility] 05-15-1998 poliovirus vaccine, inactivated Trista Maxim DO Work Phone: [facility] 1997 diphtheria, tetanus toxoids and acellular pertussis vaccine, unspecified formulation Trisat Maxim DO Work Phone: [facility] 1997 haemophilus influenz ae type b conjugate and Hepatitis B vaccine Trista Maxim DO Work Phone: [facility] 1997 diphtheria, tetanus toxoids and acellular pertussis vaccine, unspecified formulation Trista Maxim DO Work Phone: [facility] 1997 haemophilus influenz ae type b vaccine, conjugate unspecified formulation Trista Maxim DO Work Phone: [facility] 1997 poliovirus vaccine, inactivated Trista Maxim DO Work Phone: [facility] 1997 diphtheria, tetanus toxoids and acellular pertussis vaccine, unspecified formulation Trista Amxim DO Work Phone: [facility] 1997 haemophilus influenz ae type b vaccine, conjugate unspecified formulation Trista Maxim DO Work Phone: [facility] 1997 hepatitis B vaccine, pediatric or pediatric/adolescent dosage Trista Maxim DO Work Phone: [facility] 1997 poliovirus vaccine, inactivated Trista Maxim DO Work Phone: [facility] 1997 hepatitis B vaccine, pediatric or pediatric/adolescent dosage Trista Maxim DO Work Phone: [facility] Payers Date Payer Category Payer [facility] [id number] 2023 Unknown BCBS BCBS [id number] 2023-Present [phone] [address] [place] [address] [id number] 2020 Medicaid [facility] MEDICA[facility] [place] [employer] [id number] 2020-Present [address] [place] [address] [id number] 2020 Medicaid (Managed Care) [employer] [facility] [employer] [id number] 2020 Unknown [id number] 1997 Unknown [id number] 73 1997 Unknown [id number] 2.16.840.1.782614.3.579.2.1 73 1997 Unknown [id number] 2.16.840.1.016866.3.579.2.1 73 1997 Unknown [id number] 2.16.840.1.077523.3.579.2.1 73 1997 Unknown [id number] 2.16.840.1.434298.3.579.2.5 93 1997 Unknown [id number] 2.16.840.1.391248.3.579.2.5 93 1997 Unknown [id number] 2.16.840.1.240641.3.579.2.1 75 1997 Unknown [id number] 2.16.840.1.151674.3.579.2.1 259 1997 Unknown [id number] 2.16.840.1.000162.3.579.2.1 259 1997 Unknown [id number] 2.16.840.1.805395.3.579.2.1 259 1997 Unknown [id number] 2.16.840.1.547479.3.579.2.1 259 1997 Unknown [id number] 2.16.840.1.951429.3.579.2.1 259 1997 Unknown [id number] 2.16.840.1.491206.3.579.2.1 259 1997 Unknown [id number] 2.16.840.1.800655.3.579.2.1 259 1997 Unknown [id number] 2.16.840.1.401233.3.579.2.1 259 1997 Unknown [id number] 2.16.840.1.311739.3.579.2.1 259 1997 Unknown [id number] 2.16.840.1.875694.3.579.2.1 259 1997 Unknown [id number] 2.16.840.1.216497.3.579.2.1 259 1997 Unknown [id number] 2.16.840.1.585921.3.579.2.1 259 1997 Unknown [id number] 2.16.840.1.017073.3.579.2.7 27 1997 Unknown [id number] 2.16.840.1.162521.3.579.2.7 27 1997 Unknown [id number] 2.16.840.1.360925.3.579.2.7 27 1959 Unknown [id number] 1.2.840.318199.1.13.239.2.7 .[id number] 1959 Unknown [id number] [id number] .[id number] 1959 Unknown [id number] Social History Date Type Detail Facility Start: 06-12-2021 End: 11-16-2023 Tobacco smoking status [facility] Start: 06-12-2021 End: 09-24-2023 Cigarettes smoked current (pack per day) - Reported 0.25 [facility] Start: 06-12-2021 End: 11-16-2023 Tobacco use and exposure Smokeless tobacco non-user [facility] Phone: Start: 06-12-2021 Alcohol intake Current non-drinker of alcohol (finding) [facility] Phone: Start: 1997 Sex Assigned At Not on file [facility] Phone: History of tobacco use Current smoker [facility] Start: 11-16-2023 End: 01-11-2024 Alcoholic beverage intake Lifetime non-drinker (finding) [facility] Start: 09-24-2023 End: 11-16-2023 [id number] Health Literacy [facility] How often do you nee d to have someone help you when you read instructions, pamphlets, or other written material from your doctor or pharmacy [SILS] Never [facility] Do you belong to any clubs or organizations such as mandaen groups, unions, fraternal or athletic groups, or school groups? No [facility] How often to you hav e a drink containing alcohol? Never [facility] Do you feel stress - tense, restless, nervous, or anxious, or unable to sleep at night because your mind is troubled all the time - these days [OSQ] Rather much [facility] (I/We) worried wheth er (my/our) food would run out before (I/we) got money to buy more. Never true [facility] Start: 05-04-2023 Alcohol Comment caffeine: 1-2 cups coffee or energy drink occasionally [facility] Functional Status Date Assessment Result Facility 03-01-2024 Functional Status N/A [facility] Clinical Notes 01-11-2024 to 03-21-2024 Anatressa Mcintosh, OCCUPATIONAL HEALTH AND SAFETY MANAGER - 03/09/2024 11:20 AM ESTSusamanish Phipps, OCCUPATIONAL HEALTH AND SAFETY MANAGER - 02/15/2024 11:00 AM ALIAS Gallegos - 01/27/2024 2:00 PM EDTSusamanish Phipps, OCCUPATIONAL HEALTH AND SAFETY MANAGER - 01/11/2024 11:10 AM EDT Note Date & Type Note Facility 03-21-2024 Evaluation + Plan note Diagnostic Tests PendingUrine Culture 03/21/24 [facility] 03-09-2024 History of Present illness Narrative Reason for Appointment: Patient ID: Faheem Belcher is a 29 y.o. female who presents for Pre-op Visit Patient presents today for Pre Op appointment. Patient is scheduled to undergo Da Neha assisted Diagnostic Laparoscopy, possible ZAHRA, possible FOE, possible BSO on 04/01/[address] Pan at [facility]. MEDICATIONS Current Outpatient Medications Medication Instructions azithromycin (Zithromax) 500 MG tablet Day 1: Take 2 tablets PO onetime dose; Day 2,3,4: Take 1 tablet daily ALLERGIES Allergies Allergen Reactions Bacitracin-Polymyxin B Other Reaction(s): Unknown Lexapro [Escitalopram] Other groggy Buspar [Buspirone] Anxiety Caused heart palpitations and increased anxiety PROBLEMS Active Ambulatory Problems Diagnosis Date Noted Adjustment disorder with mixed anxiety and depressed mood (CMS/HCC) 09/06/2022 Amenorrhea 09/06/2022 Anxiety 09/06/2022 Bipolar affective disorder, currently depressed, moderate (CMS/HCC) 09/06/2022 Complication of intrauterine device (IUD) ([facility]) 09/06/2022 Inattention 09/06/2022 Irregular menses 09/06/2022 Irritable bowel syndrome with diarrhea 09/06/2022 Menstrual cramp 09/06/2022 Pain in pelvis 09/06/2022 Generalized anxiety disorder ([facility]) 09/06/2022 Post-traumatic stress disorder ([facility]) 09/06/2022 Slow transit constipation 09/06/2022 Anxiety during 03/26/2020 Depression affecting ([facility]) 03/26/2020 History of chlamydia 03/26/2020 Bacterial infection due to mycoplasma 02/15/2024 Vaginal odor 02/15/2024 Urinary tract infection without hematuria 02/15/2024 Bacterial vaginosis 02/15/2024 Resolved Ambulatory Problems Diagnosis Date Noted No Resolved Ambulatory Problems Past Medical History: Diagnosis Date ADHD (attention deficit hyperactivity disorder) ([facility]) Bipolar disorder (manic depression) ([facility]) BMI 24.0-24.9, adult Chicken pox 2007 Headache IBS (irritable bowel syndrome) Intrauterine device surveillance Pelvic pain Urinary tract infection HISTORY PAST MEDICAL HISTORY SOCIAL HISTORY Past Medical History: Diagnosis Date ADHD (attention deficit hyperactivity disorder) ([facility]) Adjustment disorder with mixed anxiety and depressed mood ([facility]) Amenorrhea Anxiety Bipolar disorder (manic depression) ([facility]) BMI 24.0-24.9, adult Chicken pox 2007 Complication of intrauterine device (IUD) ([facility]) Headache IBS (irritable bowel syndrome) IBS with diarrhea Inattention Intrauterine device surveillance Irregular menses Pelvic pain Urinary tract infection Social History Tobacco Use Smoking status: Former Current packs/day: 0.50 Average packs/day: 0.5 packs/day for 5.0 years (2.5 ttl pk-yrs) Types: Cigarettes Smokeless tobacco: Never Vaping Use Vaping status: Never Used Substance Use Topics Alcohol use: Never Comment: caffeine: 1-2 cups coffee or energy drink occasionally Drug use: Never Types: Marijuana Comment: Quit in August FAMILY HISTORY Family History Problem Relation Name Age of Onset Cancer Mother kaila Mental illness Mother kaila manic depressive bipolar disorder No Known Problems Brother 2 brothers Breast cancer Paternal Grandmother juan pablo Cancer Paternal Grandmother juan pablo No Known Problems Daughter SURGICAL HISTORY Past Surgical History: Procedure Laterality Date LITHOTRIPSY 2015 kidney stones/lithotrypsy PAP SMEAR 05/21/2021 negative WISDOM TOOTH EXTRACTION 2015 [place] teeth REVIEW OF SYSTEMS Review of Systems: Review of Systems Constitutional: Negative. HENT: Negative. Eyes: Negative. Respiratory: Negative. Cardiovascular: Negative. Gastrointestinal: Negative. Genitourinary: Positive for dyspareunia and pelvic pain. Musculoskeletal: Negative. Skin: Negative. Neurological: Negative. All other systems reviewed and are negative. Hematological: Negative. Endocrine: Negative. Allergic/Immunologic: Negative. OBJECTIVE Objective: Physical Exam Constitutional: Appearance: Normal appearance. She is well-developed. Cardiovascular: Rate and Rhythm: Normal rate and regular rhythm. Pulmonary: Effort: Pulmonary effort is normal. Breath sounds: Normal breath sounds. Abdominal: General: Bowel sounds are normal. There is no distension. Palpations: Abdomen is soft. Tenderness: There is no abdominal tenderness. There is no guarding or rebound. Musculoskeletal: General: No swelling. Normal range of motion. Right lower leg: No edema. Left lower leg: No edema. Neurological: Mental Status: She is alert and oriented to person, place, and time. Skin: General: Skin is warm and dry. Psychiatric: Mood and Affect: Mood normal. Behavior: Behavior normal. Vitals and nursing note reviewed. Exam conducted with a cupola repairer present. Vitals: Estimated body mass index is 22.55 kg/m as calculated from the following: Height as of 10/21/23: 5' 7 . Weight as of this encounter: 144 lb. BP: 114/70 Patient's last menstrual period was 02/26/2024 (exact date). ASSESSMENT & PLAN ICD-10-CM 1. Pre-op evaluation Z01.818 2. Pelvic pain in female R10.2 3. Bacterial vaginosis N76.0 B96.89 Pre Op: Patient is doing well but has complaints of pelvic pain and dyspareunia. I have discussed conservative management vs. surgical management with the patient in detail and patient desires surgical management at this time. Patient will undergo Da Neha assisted Diagnostic Laparoscopy, possible ZAHRA, possible FOE, possible BSO on 04/01/24. Surgical consents were signed, mmc was reviewed, and patient is to proceed to [facility] OR. Pt has vaginal discharge and recurrent bv- rx for xaciato and metrogel faxed to pharmacy. Follow Up: Patient is to follow up between 1-2 weeks post operative to assess proper healing and recovery from procedure. Documented by Ana Mcintosh LPN on behalf of: Trista Pan DO documented in this encounter [facility] 02-15-2024 History of Present illness Narrative Reason for Appointment: Patient ID: Faheem Belcher is a 29 y.o. female who presents for Vaginitis/Bacterial Vaginosis (Pt present today for follow up on BV/UTI. Pt complains of having an odor and would like cx's done at todays visit. ) Patient presents today for Consult appointment. MEDICATIONS Current Outpatient Medications Medication Instructions azithromycin (Zithromax) 500 MG tablet Day 1: Take 2 tablets PO onetime dose; Day 2,3,4: Take 1 tablet daily doxycycline (VIBRAMYCIN) 100 mg, Oral, 2 times daily, Take with at least 8 ounces (large glass) of water, do not lie down for 30 minutes after metroNIDAZOLE (FLAGYL) 500 mg, Oral, 2 times daily, Do not drink alcohol while taking this medication moxifloxacin (AVELOX) 400 mg, Oral, Daily, start medication AFTER completing course of Doxycycline & Azithromycin. ALLERGIES Allergies Allergen Reactions Bacitracin-Polymyxin B Other Reaction(s): Unknown Lexapro [Escitalopram] Other groggy Buspar [Buspirone] Anxiety Caused heart palpitations and increased anxiety PROBLEMS Active Ambulatory Problems Diagnosis Date Noted Adjustment disorder with mixed anxiety and depressed mood ([facility]) 09/06/2022 Amenorrhea 09/06/2022 Anxiety 09/06/2022 Bipolar affective disorder, currently depressed, moderate (CMS/[facility]) 09/06/2022 Complication of intrauterine device (IUD) (CMS/[facility]) 09/06/2022 Inattention 09/06/2022 Irregular menses 09/06/2022 Irritable bowel syndrome with diarrhea 09/06/2022 Menstrual cramp 09/06/2022 Pain in pelvis 09/06/2022 Generalized anxiety disorder (CMS/HCC) 09/06/2022 Post-traumatic stress disorder (CMS/[facility]) 09/06/2022 Slow transit constipation 09/06/2022 Anxiety during 03/26/2020 Depression affecting ([facility]) 03/26/2020 History of chlamydia 03/26/2020 Resolved Ambulatory Problems Diagnosis Date Noted No Resolved Ambulatory Problems Past Medical History: Diagnosis Date ADHD (attention deficit hyperactivity disorder) ([facility]) Bipolar disorder (manic depression) ([facility]) BMI 24.0-24.9, adult Chicken pox 2007 Headache IBS (irritable bowel syndrome) Intrauterine device surveillance Pelvic pain Urinary tract infection HISTORY PAST MEDICAL HISTORY SOCIAL HISTORY Past Medical History: Diagnosis Date ADHD (attention deficit hyperactivity disorder) ([facility]) Adjustment disorder with mixed anxiety and depressed mood ([facility]) Amenorrhea Anxiety Bipolar disorder (manic depression) ([facility]) BMI 24.0-24.9, adult Chicken pox 2007 Complication of intrauterine device (IUD) ([facility]) Headache IBS (irritable bowel syndrome) IBS with diarrhea Inattention Intrauterine device surveillance Irregular menses Pelvic pain Urinary tract infection Social History Tobacco Use Smoking status: Former Current packs/day: 0.50 Average packs/day: 0.5 packs/day for 5.0 years (2.5 ttl pk-yrs) Types: Cigarettes Smokeless tobacco: Never Vaping Use Vaping status: Never Used Substance Use Topics Alcohol use: Never Comment: caffeine: 1-2 cups coffee or energy drink occasionally Drug use: Never Types: Marijuana Comment: Quit in August FAMILY HISTORY Family History Problem Relation Name Age of Onset Cancer Mother kaila Mental illness Mother kaila manic depressive bipolar disorder No Known Problems Brother 2 brothers Breast cancer Paternal Grandmother juan pablo Cancer Paternal Grandmother juan pablo No Known Problems Daughter SURGICAL HISTORY Past Surgical History: Procedure Laterality Date LITHOTRIPSY 2015 kidney stones/lithotrypsy PAP SMEAR 05/21/2021 negative WISDOM TOOTH EXTRACTION 2015 [place] teeth REVIEW OF SYSTEMS Review of Systems: Review of Systems Genitourinary: Positive for vaginal discharge. All other systems reviewed and are negative. OBJECTIVE Objective: Physical Exam Constitutional: Appearance: Normal appearance. She is well-developed. Genitourinary: Vulva normal. Cardiovascular: Rate and Rhythm: Normal rate and regular rhythm. Pulmonary: Effort: Pulmonary effort is normal. Breath sounds: Normal breath sounds. Abdominal: General: Bowel sounds are normal. There is no distension. Palpations: Abdomen is soft. Tenderness: There is no abdominal tenderness. There is no guarding or rebound. Musculoskeletal: General: No swelling. Normal range of motion. Right lower leg: No edema. Left lower leg: No edema. Neurological: Mental Status: She is alert and oriented to person, place, and time. Skin: General: Skin is warm and dry. Psychiatric: Mood and Affect: Mood normal. Behavior: Behavior normal. Vitals and nursing note reviewed. Exam conducted with a cupola repairer present. Vitals: Estimated body mass index is 22.4 kg/m as calculated from the following: Height as of 10/21/23: 5' 7 . Weight as of this encounter: 143 lb. BP: 110/70 Patient's last menstrual period was 01/18/2024. ASSESSMENT & PLAN ICD-10-CM 1. Bacterial vaginosis N76.0 SURESWAB(R) ADVANCED VAGINITIS PLUS, TMA B96.89 2. Urinary tract infection without hematuria, site unspecified N39.0 POCT urinalysis dipstick manually resulted 3. Vaginal odor N89.8 SURESWAB(R) ADVANCED VAGINITIS PLUS, TMA CHLAMYDIA TRACHOMATIS (GENITO/STI) Neisseria gonorrhea DNA probe, direct 4. Bacterial infection due to mycoplasma A49.3 doxycycline (Vibramycin) 100 MG capsule azithromycin (Zithromax) 500 MG tablet moxifloxacin (Avelox) 400 MG tablet Patient presents today for vaginal discharge. Obtained vaginal cultures to be sent out and patient will be made aware of results when reviewed. Sent in medication regimen for Mycoplasma and explained to patient how to take medications. Patient voiced that she has frequent UTI's and would like a referral to Urology. Patient aware that [facility] will reach out to her to sent up surgery date for Dx Lap as well. Patient aware of referral process. Documented by Estela Phipps LPN on behalf of: Trista Pan DO documented in this encounter [facility] 01-27-2024 History of Present illness Narrative Reason for Appointment: Patient ID: Faheem Belcher is a 28 y.o. female who presents for Well Women Visit Patient presents today for Annual Exam. MEDICATIONS Current Outpatient Medications Medication Instructions doxycycline (VIBRAMYCIN) 100 mg, Oral, 2 times daily, Take with at least 8 ounces (large glass) of water, do not lie down for 30 minutes after ALLERGIES Allergies Allergen Reactions Bacitracin-Polymyxin B Other Reaction(s): Unknown Lexapro [Escitalopram] Other groggy Buspar [Buspirone] Anxiety Caused heart palpitations and increased anxiety PROBLEMS Active Ambulatory Problems Diagnosis Date Noted Adjustment disorder with mixed anxiety and depressed mood ([facility]) 09/06/2022 Amenorrhea 09/06/2022 Anxiety 09/06/2022 Bipolar affective disorder, currently depressed, moderate ([facility]) 09/06/2022 Complication of intrauterine device (IUD) ([facility]) 09/06/2022 Inattention 09/06/2022 Irregular menses 09/06/2022 Irritable bowel syndrome with diarrhea 09/06/2022 Menstrual cramp 09/06/2022 Pain in pelvis 09/06/2022 Generalized anxiety disorder ([facility]) 09/06/2022 Post-traumatic stress disorder ([facility]) 09/06/2022 Slow transit constipation 09/06/2022 Anxiety during 03/26/2020 Depression affecting ([facility]) 03/26/2020 History of chlamydia 03/26/2020 Resolved Ambulatory Problems Diagnosis Date Noted No Resolved Ambulatory Problems Past Medical History: Diagnosis Date ADHD (attention deficit hyperactivity disorder) ([facility]) Bipolar disorder (manic depression) ([facility]) BMI 24.0-24.9, adult Chicken pox 2007 Headache IBS (irritable bowel syndrome) Intrauterine device surveillance Pelvic pain Urinary tract infection HISTORY PAST MEDICAL HISTORY SOCIAL HISTORY Past Medical History: Diagnosis Date ADHD (attention deficit hyperactivity disorder) ([facility]) Adjustment disorder with mixed anxiety and depressed mood ([facility]) Amenorrhea Anxiety Bipolar disorder (manic depression) ([facility]) BMI 24.0-24.9, adult Chicken pox 2007 Complication of intrauterine device (IUD) ([facility]) Headache IBS (irritable bowel syndrome) IBS with diarrhea Inattention Intrauterine device surveillance Irregular menses Pelvic pain Urinary tract infection Social History Tobacco Use Smoking status: Former Current packs/day: 0.50 Average packs/day: 0.5 packs/day for 5.0 years (2.5 ttl pk-yrs) Types: Cigarettes Smokeless tobacco: Never Vaping Use Vaping status: Never Used Substance Use Topics Alcohol use: Never Comment: caffeine: 1-2 cups coffee or energy drink occasionally Drug use: Never Types: Marijuana Comment: Quit in August FAMILY HISTORY Family History Problem Relation Name Age of Onset Cancer Mother kaila Mental illness Mother kaila manic depressive bipolar disorder No Known Problems Brother 2 brothers Breast cancer Paternal Grandmother juan pablo Cancer Paternal Grandmother juan pablo No Known Problems Daughter SURGICAL HISTORY Past Surgical History: Procedure Laterality Date LITHOTRIPSY 2014 kidney stones/lithotrypsy PAP SMEAR 05/21/2021 negative WISDOM TOOTH EXTRACTION 2015 [place] teeth REVIEW OF SYSTEMS Review of Systems: Review of Systems Constitutional: Negative. HENT: Negative. Eyes: Negative. Respiratory: Negative. Cardiovascular: Negative. Gastrointestinal: Negative. Genitourinary: Negative. Musculoskeletal: Negative. Skin: Negative. Neurological: Negative. All other systems reviewed and are negative. Hematological: Negative. Endocrine: Negative. Allergic/Immunologic: Negative. OBJECTIVE Objective: Physical Exam Constitutional: Appearance: Normal appearance. Genitourinary: Right Adnexa: not tender and no mass present. Left Adnexa: not tender and no mass present. No cervical discharge. Breasts: Breasts are soft. Right: Normal. Left: Normal. HENT: Head: Normocephalic. Nose: Nose normal. Mouth/Throat: Mouth: Mucous membranes are moist. Cardiovascular: Rate and Rhythm: Normal rate. Pulmonary: Effort: Pulmonary effort is normal. Abdominal: General: Bowel sounds are normal. Palpations: Abdomen is soft. Musculoskeletal: General: Normal range of motion. Cervical back: Normal range of motion. Neurological: General: No focal deficit present. Mental Status: She is alert. Skin: General: Skin is warm and dry. Psychiatric: Mood and Affect: Mood normal. Vitals and nursing note reviewed. Exam conducted with a cupola repairer present. Vitals: Estimated body mass index is 22.08 kg/m as calculated from the following: Height as of 10/21/23: 5' 7 . Weight as of this encounter: 141 lb. BP: 110/68 Patient's last menstrual period was 01/18/2024. ASSESSMENT & PLAN ICD-10-CM 1. Well woman exam with routine gynecological exam Z01.419 Pap Smear Annual Exam: Patient presents today for an annual exam. Patient states she is doing well and has no complaints. Pap was obtained without difficulty. No orders of the defined types were placed in this encounter. Follow Up: Patient is to return in one year for annual unless needed otherwise. Documented by ALISA Coyle on behalf of: ALISA Coyle documented in this encounter [facility] 01-11-2024 History of Present illness Narrative Reason for Appointment: Patient ID: Faheem Belcher is a 28 y.o. female who presents for pelvic pressure Patient presents today for Consult appointment. MEDICATIONS No current outpatient medications ALLERGIES Allergies Allergen Reactions Bacitracin-Polymyxin B Other Reaction(s): Unknown Lexapro [Escitalopram] Other groggy Buspar [Buspirone] Anxiety Caused heart palpitations and increased anxiety PROBLEMS Active Ambulatory Problems Diagnosis Date Noted Adjustment disorder with mixed anxiety and depressed mood ([facility]/HCC) 09/06/2022 Amenorrhea 09/06/2022 Anxiety 09/06/2022 Bipolar affective disorder, currently depressed, moderate (CMS/HCC) 09/06/2022 Complication of intrauterine device (IUD) (CMS/HCC) 09/06/2022 Inattention 09/06/2022 Irregular menses 09/06/2022 Irritable bowel syndrome with diarrhea 09/06/2022 Menstrual cramp 09/06/2022 Pain in pelvis 09/06/2022 Generalized anxiety disorder ([facility]/HCC) 09/06/2022 Post-traumatic stress disorder ([facility]/HCC) 09/06/2022 Slow transit constipation 09/06/2022 Anxiety during 03/26/2020 Depression affecting (CMS/HCC) 03/26/2020 History of chlamydia 03/26/2020 Resolved Ambulatory Problems Diagnosis Date Noted No Resolved Ambulatory Problems Past Medical History: Diagnosis Date ADHD (attention deficit hyperactivity disorder) (CMS/HCC) Bipolar disorder (manic depression) (CMS/HCC) BMI 24.0-24.9, adult Chicken pox 2007 Headache IBS (irritable bowel syndrome) Intrauterine device surveillance Pelvic pain Urinary tract infection HISTORY PAST MEDICAL HISTORY SOCIAL HISTORY Past Medical History: Diagnosis Date ADHD (attention deficit hyperactivity disorder) (CMS/HCC) Adjustment disorder with mixed anxiety and depressed mood (CMS/HCC) Amenorrhea Anxiety Bipolar disorder (manic depression) (CMS/HCC) BMI 24.0-24.9, adult Chicken pox 2007 Complication of intrauterine device (IUD) ([facility]) Headache IBS (irritable bowel syndrome) IBS with diarrhea Inattention Intrauterine device surveillance Irregular menses Pelvic pain Urinary tract infection Social History Tobacco Use Smoking status: Former Current packs/day: 0.50 Average packs/day: 0.5 packs/day for 5.0 years (2.5 ttl pk-yrs) Types: Cigarettes Smokeless tobacco: Never Vaping Use Vaping status: Never Used Substance Use Topics Alcohol use: Never Comment: caffeine: 1-2 cups coffee or energy drink occasionally Drug use: Never Types: Marijuana Comment: Quit in August FAMILY HISTORY Family History Problem Relation Name Age of Onset Cancer Mother kaila Mental illness Mother kaila manic depressive bipolar disorder No Known Problems Brother 2 brothers Breast cancer Paternal Grandmother juan pablo Cancer Paternal Grandmother juan pablo No Known Problems Daughter SURGICAL HISTORY Past Surgical History: Procedure Laterality Date LITHOTRIPSY 2014 kidney stones/lithotrypsy PAP SMEAR 05/21/2021 negative WISDOM TOOTH EXTRACTION 2015 [place] teeth REVIEW OF SYSTEMS Review of Systems: Review of Systems Genitourinary: Positive for pelvic pain, vaginal bleeding and vaginal pain. All other systems reviewed and are negative. OBJECTIVE Objective: Physical Exam Constitutional: Appearance: Normal appearance. She is well-developed. Genitourinary: Vulva normal. Cardiovascular: Rate and Rhythm: Normal rate and regular rhythm. Pulmonary: Effort: Pulmonary effort is normal. Breath sounds: Normal breath sounds. Abdominal: General: Bowel sounds are normal. There is no distension. Palpations: Abdomen is soft. Tenderness: There is no abdominal tenderness. There is no guarding or rebound. Musculoskeletal: General: No swelling. Normal range of motion. Right lower leg: No edema. Left lower leg: No edema. Neurological: Mental Status: She is alert and oriented to person, place, and time. Skin: General: Skin is warm and dry. Psychiatric: Mood and Affect: Mood normal. Behavior: Behavior normal. Vitals and nursing note reviewed. Exam conducted with a cupola repairer present. Vitals: Estimated body mass index is 22.42 kg/m as calculated from the following: Height as of 10/21/23: 5' 7 . Weight as of this encounter: 143 lb 1.9 oz. BP: 108/72 No LMP recorded. ASSESSMENT & PLAN ICD-10-CM 1. Pelvic pain in female R10.2 POCT urinalysis dipstick manually resulted POCT , urine manually resulted SURESWAB(R) ADVANCED VAGINITIS PLUS, TMA Neisseria gonorrhea DNA probe, direct CHLAMYDIA TRACHOMATIS (GENITO/STI) US PELVIS-TRANSVAG IF INDICATED Urine culture Patient presents today for pelvic pain. Urine dip obtained in office showed trace blood. Urine will be sent off for culture. Obtained vaginal cultures and sent Doxycycline to patients pharmacy to take BID for 1 month. Patient to setup follow up appointment in 4 weeks to assess symptoms. Discussed with patient possible interstitial cystitis and if no improvement then patient will have referral to Urology. Patient verbalized understanding and will follow up in 1 month. Documented by Estela Phipps LPN on behalf of: Trista Pan DO documented in this encounter [facility] Evaluation + Plan note No data available for this section [facility] Evaluation note Diagnosis Ureteral stone with hydronephrosis Calculus of ureter Suprapubic pain Abdominal pain, other specified site Dysuria Urgency of urination documented in this encounter [employer] Phone: evaluation note* Diagnosis Ureteral stone with hydronephrosis Calculus of ureter documented in this encounter [facility] [employer]: evaluation note* Diagnosis Ureteral stone with hydronephrosis Calculus of ureter Suprapubic pain Abdominal pain, other specified site Dysuria Urgency of urination documented in this encounter [employer]: evaluation note* Diagnosis Well woman exam with routine gynecological exam Routine gynecological examination documented in this encounter [facility] HealthcareEvaluation note* Diagnosis Bacterial vaginosis Unspecified vaginitis and vulvovaginitis Urinary tract infection without hematuria, site unspecified Vaginal odor Unspecified symptom associated with female genital organs Bacterial infection due to mycoplasma documented in this encounter [facility] HealthcareEvaluation note* Diagnosis Pre-op evaluation Pelvic pain in female Unspecified symptom associated with female genital organs Bacterial vaginosis Unspecified vaginitis and vulvovaginitis documented in this encounter [facility] HealthcareEvaluation note* Diagnosis Pelvic pain in female Unspecified symptom associated with female genital organs documented in this encounter [facility] Discharge instructions No data available for this section [facility] progress note No data available for this section [facility] Advance Directives Documents on File Type Date Recorded Patient Clinical Review Nurse Expl anation ACP-Advance Directive ACP-Power of Hadoop Application Developer Latest Code Status on File Code Status Date Activated Date Inactivated Comments Full Code 03/28/2014 9:49 AM 03/28/2014 5:17 PM Documents on File Type Date Recorded Patient Clinical Review Nurse Expl anation ACP-Advance Directive ACP-[employer] Application Developer Latest Code Status on File Code Status Date Activated Date Inactivated Comments Full Code 03/28/2014 9:49 AM 03/28/2014 5:17 PM Reason for Referral Specialty Diagnoses / Procedures Referred By Contac t Referred To Contact Radiology Diagnoses Ureteral stone with hydronephrosis Suprapubic pain Dysuria Urgency of urination Procedures US RENAL COMPLETE Jason Fabian, SIGN PAINTER - INVESTMENT BANKING ANALYST [address] [facility] [address] [place] [address] Referral ID Status Reason Start Date Expiration Date Visits Re quested Visits Authorized [id number] Closed 06/12/2021 06/12/2022 1 1 Summary Purpose Family History No Family History Records FoundNo Family History Records FoundNo Family History Records Found No data available for this section No Family History Records FoundNo Family History Records Found No data available for this section No data available for this section No Family History Records FoundNo Family History Records Found Additional Source Comments Care Teams (unrecognized sec tion and content) Exhibition Specialist Relationship Specialty Start Date End Date Sri Ramírez MD [address] [place] [address] PCP - General 07/20/13 Exhibition Specialist Relationship Specialty Start Date End Date Sri Ramírez MD [address] [place] [address] PCP - General 07/20/13 Exhibition Specialist Relationship Specialty Start Date End Date Sri Ramírez MD [address] [place] [address] PCP - General 07/20/13 Exhibition Specialist Relationship Specialty Start Date End Date Sri Ramírez MD [address] [place] [address] PCP - General 07/20/13 Exhibition Specialist Relationship Specialty Start Date End Date Sri Ramírez MD [address] [place] [address] PCP - General Family Medicine 09/19/22 Elvie Barahona, SIGN PAINTER-[facility] [address] [facility] [address] [place] [address] PCP - [employer] 09/12/23 Kayla Kahn DO [address] [place] [address] Referring Physician 09/19/22 Exhibition Specialist Relationship Specialty Start Date End Date Sri Ramírez MD [address] [place] [address] PCP - General Family Medicine 09/19/22 Elvie Barahona, SIGN PAINTER-[facility] [address] [facility] [address] [place] [address] PCP - [employer] 09/12/23 Kayla Kahn DO [address] [place] [address] Referring Physician 09/19/22 Exhibition Specialist Relationship Specialty Start Date End Date Sri Ramírez MD [address] [facility] [address] PCP - General Family Medicine 09/19/22 Elvie Barahona, SIGN PAINTER-[facility] [address] [facility] [address] [place] [address] PCP - [employer] 09/12/23 Kayla Kahn DO [address] [place] [address] Referring Physician 09/19/22 Exhibition Specialist Relationship Specialty Start Date End Date Sri Ramírez MD [address] [facility] [address] PCP - General Family Medicine 09/19/22 Elvie Barahona, SIGN PAINTER-MUSIC MIXER [address] [facility] [address] [place] [address] PCP - [employer] 09/12/23 Kayla Kahn DO [address] [place] [address] Referring Physician 09/19/22 Exhibition Specialist Relationship Specialty Start Date End Date Sri Ramírez MD [address] [facility] [place] [address] PCP - General Family Medicine 09/19/22 Elive Barahona, SIGN PAINTER-MUSIC MIXER [address] [facility] [address] [place] [address] PCP - [employer] 09/12/23 Kayla Kahn DO [address] [place] [address] Referring Physician 09/19/22 Exhibition Specialist Relationship Specialty Start Date End Date Sri Ramírez MD [address] [place] [address] PCP - General Family Medicine 09/19/22 Elvie Barahona, SIGN PAINTER-MUSIC MIXER [address] [facility] [address] [place] [address] PCP - [employer] 09/12/23 Kayla Kahn DO [address] [place] [address] Referring Physician 09/19/22 Exhibition Specialist Relationship Specialty Start Date End Date Sri Ramírez MD [address] [place] [address] PCP - General Family Medicine 09/19/22 Elvie Barahona, BOY-MUSIC MIXER [address] [facility] [address] [place] [address] PCP - [employer] 09/12/23 Kay[facility]ahn DO [address] [facility] [address] [place] [address] Referring Physician 09/19/22 Reason for Visit (unrecogniz ed section and content) Specialty Diagnoses / Procedures Referred By Wilman coker Referred To Contact Radiology Diagnoses Ureteral stone with hydronephrosis Suprapubic pain Dysuria Urgency of urination Procedures US RENAL COMPLETE Jason Fabian, SIGN PAINTER - INVESTMENT BANKING ANALYST [address] [facility] [address] [place] [address] Referral ID Status Reason Start Date Expiration Date Visits Re quested Visits Authorized [id number] Closed 06/12/2021 06/12/2022 1 1 Reason Comments Well Women Visit Reason Comments Vaginitis/Bacterial Vaginosis Pt present today for follow up on BV/UTI. Pt complains of having an odor and would like cx's done at todays visit. Reason Comments Pre-op Visit Reason Comments pelvic pressure INFORMATION SOURCE (unrecogn ized section and content) DATE CREATED AUTHOR 06/23/2021 [facility] DATE CREATED AUTHOR AUTHOR'S ORGANIZ ATION 05/20/2022 [facility] DATE CREATED AUTHOR AUTHOR'S ORGANIZ ATION 09/25/2023 [facility] DATE CREATED AUTHOR AUTHOR'S ORGANIZ ATION 03/12/2024 [facility] DATE CREATED AUTHOR AUTHOR'S ORGANIZ ATION 03/24/2024 [facility] DATE CREATED AUTHOR AUTHOR'S ORGANIZ ATION 03/27/2024 [facility] FOR RECORDS PERTAINING TO PATIENTS WHO ARE OR HAVE BEEN ENROLLED IN A CHEMICAL DEPENDENCY/SUBSTANCEABUSE PROGRAM, SOME INFORMATION MAY BE OMITTED. This clinical summary was aggregated from multiple sources. Caution should be exercised in using it in the provision of clinical care. This summary normalizes information from multiple sources, and as a consequence, information in this document may materially change the coding, format and clinical context of patient data. In addition, data may be omitted in some cases. CLINICAL DECISIONS SHOULD BE BASED ON THE PRIMARY CLINICAL RECORDS. [employer] provides no warranty or guarantee of the accuracy or completeness of information in this document.
[2024-04-01 07:21] LABS: Basophils Percent Auto 0.4 % (0.2-2.0); Eosinophils Absolute Auto 0.1 10^3/uL (0.0-0.7); Eosinophils Percent Auto 2.3 % (0.9-7.0); Hemoglobin 14.4 g/dL (12.0-16.0); Immature Granulocytes Abs Auto 0.01 10^3/uL (0.00-0.03); Immature Granulocytes Pct Auto 0.2 % (0.0-0.5); Lymphocytes Percent Auto 42.5 % (20.5-60.0); Mean Corpuscular HGB Conc 34.3 g/dL (29.9-35.2); Mean Corpuscular Hemoglobin 30.6 pg (26.7-34.0); Mean Corpuscular Volume 89.2 fL (81.0-99.0); Mean Platelet Volume 9.4 fL (9.5-13.5); Monocytes Absolute Auto 0.5 10^3/uL (0.3-0.8); Neutrophils Absolute Auto 2.1 10^3/uL (1.4-6.5); Neutrophils Percent Auto 43.6 % (43.0-75.0); Platelet Count 293 10^3/uL (150-450); Red Blood Count 4.71 10^6/uL (4.20-5.40); Red Cell Distribution Width 11.9 % (11.0-15.0); White Blood Count 4.7 10^3/uL (4.0-11.0)
[2024-04-01 07:46] LABS: HCG Quantitative <1 mIU/mL
[2024-04-01] MEDS: LACTATED RINGER'S SOLUTION 1,000 ML 50 ML IV (07:47)
--- NOTE | 2024-04-01 09:05 | PM.ONB ---
Brief Operative Note Date of procedure: 04/01/24 Pre-op diagnosis general: pelvic pain Post-op diagnosis: other (posterior culdesac endometriosis) Procedure: NAME OF PROCEDURE: [diagnostic laparoscopy ] findings-posterior culdesac endometriosis PROCEDURE: The patient was taken back to the Operating Room where she was placed in dorsal lithotomy position after given general anesthesia. The patient was prepped and draped in normal sterile fashion. A sponge stick was placed into the patient's vagina. Attention was turned to the patient's abdomen, where a small umbilical incision was made. The fascia was tented using Shama clamps and the fascia was entered sharply. Confirmation of intraabdominal placement of the 10 mm port was confirmed under direct visualization using a laparoscope. The patient's abdomen was then insufflated using CO2 gas with approximately 4 liters. A second port was placed left laterally, this was done under direct visualization with a 5 mm port. Survey of the patient's abdomen demonstrated normal liver and gallbladder. Survey of the patient's pelvic anatomy demonstrated normal appearing rt and lt ovary and tubes as well as normal appearing uterus. posterior culdesac endometrial implants could be noted, no evidence of any pelvic disease was seen, normal appearing pelvic cavity. All instruments were removed from the patient's abdomen. The patient's abdomen was deinsufflated of CO2 gas. The patient tolerated the procedure well. Sponge stick was removed from the patient's vagina. The patient's infraumbilical fascia was closed using #0 Vicryl on a GI needle. The patient's skin was closed laterally and infraumbilically using 4-0 Vicryl. The patient tolerated the procedure well. Sponge, lap and needle counts were correct x 2. The patient was taken to Recovery Room in stable condition. Anesthesia: GETA Surgeon: Jose Pan Survey Technologist: Consuelo Che Estimated blood loss (mL): 5 Pathology: none sent Condition: stable Disposition: PACU Urinary Catheter Management Urinary Catheter Management Urethral: Cath placed during this visit: no
--- NOTE | 2024-04-01 10:05 | PC.NURSE ---
1005: pt ambulates to bathroom with minimal assistance,pt voids without difficulty.
[2024-04-01] MEDS: HYDROCODONE/ACET 5-325 MG TABLET 1 TAB PO (10:18)
== END 2024-04-01 11:20 | disposition home or self-care (01) ==
PROVIDERS: PCP Family Medicine; Visit Provider Obstetrics & Gynecology
PROC: (CPT 49320; principal; 2024-04-01 08:25)
DX: N80.329 Endometriosis of the posterior cul-de-sac, unspecified depth (principal); R10.2 Pelvic and perineal pain; Z87.442 Personal history of urinary calculi; Z87.440 Personal history of urinary (tract) infections; Z88.8 Allergy status to other drugs, medicaments and biological substances
CPT/HCPCS: 49320; 36415; 84702; 85025; J1100; J1885; J2250; J2405; J2704; J3010

== ENCOUNTER 2024-06-01 18:33 | Emergency (ER) | payer BC, OTHER, SELFPAY ==
[2024-06-01 18:38] VITALS: BP 141/97; PULSE 96; TEMP 36.8; O2SAT 100; BMI 21.9
--- NOTE | 2024-06-01 18:40 | ED_ITS ---
HPI - Wound/Laceration General Chief Complaint: Wound/Laceration Stated Complaint: RIGHT THUMB LACERATION Time Seen by Provider: 06/01/24 18:35 Source: patient History of Present Illness HPI narrative: Patient is a very pleasant 29-year-old female who presents to the emergency department for a laceration to the right thumb that occurred at home just prior to arrival. She was attempting to open a metal can of tomatoes when she sliced her thumb on the edge. She has had moderate bleeding since that time. Tetanus is up-to-date. No other associated injuries. She is right-hand dominant. Related Data Home Medications ?Medication ?Instructions ?Recorded ?Confirmed Bacillus coagulans-inulin 1 cap PO 03/21/24 billion cell-250 mg capsule (Probiotic Formula (inulin)) multivitamin (Daily Multi-Vitamin 1 tab PO DAILY 03/21/24 04/01/24 tablet) Previous Rx's ?Medication ?Instructions ?Recorded hydrocodone 5 mg-acetaminophen 325 1 tab PO Q4H PRN pain 4 days #16 04/01/24 mg tablet tabs ibuprofen 800 mg tablet 800 mg PO Q8H PRN pain 14 days #40 04/01/24 tabs Allergies Allergy/AdvReac Type Severity Reaction Status Date / Time bacitracin (From Neosporin Allergy Rash Verified 06/01/24 18:37 ([id number])) buspirone (From BuSpar) Allergy Anxiety Verified 06/01/24 18:37 escitalopram (From Lexapro) Allergy Fatigued Verified 06/01/24 18:37 neomycin (From Neosporin Allergy Rash Verified 06/01/24 18:37 ([id number])) polymyxin B (From Neosporin Allergy Rash Verified 06/01/24 18:37 ([id number])) Review of Systems ROS Constitutional Denies: fever or chills Ears, nose, mouth, and throat Denies: throat pain or nasal congestion Respiratory Denies: shortness of breath Gastrointestinal Denies: nausea or vomiting Integumentary/Breast Denies: rash Neurological Denies: numbness in extremities or weakness in extremities Hematologic/Lymphatic Denies: easy bruising or easy bleeding PFS PFS Medical History (Updated 06/01/24 @ 19:08 by ALISA Doty) Neck pain ?M54.2 - Cervicalgia (ICD-10) Anemia ?D64.9 - Anemia, unspecified (ICD-10) ADHD ?F90.9 - Attention-deficit hyperactivity disorder, unspecified type (ICD-10) Depression ?F32.A - Depression, unspecified (ICD-10) Migraine ?G43.909 - Migraine, unspecified, not intractable, without status migrainosus (ICD-10) Urinary tract infection ?N39.0 - Urinary tract infection, site not specified (ICD-10) Pelvic pain ?R10.2 - Pelvic and perineal pain (ICD-10) Kidney stones ?N20.0 - Calculus of kidney (ICD-10) IBS (irritable bowel syndrome) ?K58.9 - Irritable bowel syndrome, unspecified (ICD-10) Anxiety ?F41.9 - Anxiety disorder, unspecified (ICD-10) Surgical History (Updated 04/01/24 @ 07:27 by Ronel Israel) History of lithotripsy ?Z98.890 - Other specified postprocedural states (ICD-10) H/O removal of cyst ?Z98.890 - Other specified postprocedural states (ICD-10) History of wisdom tooth extraction ?K08.409 - Partial loss of teeth, unspecified cause, unspecified class (ICD- 10) Family History (Updated 03/21/24 @ 14:21 by Ita Ramírez NP) Other Family history of breast cancer Family history of heart disease Family history of hypertension Family history of myocardial infarction Family history of stroke Social History Within the past year, how often did you have a drink containing alcohol: never Score interpretation: A score less than 3 is consistent with normal alcohol consumption. Smoking status: Former smoker Non-prescribed substance use: denies use Previous occupational history: [employer] Highest level of school completed/degree received: Associate degree: occupational, technical, vocational program Little interest or pleasure in doing things: not at all Feeling down, depressed, or hopeless: not at all Exam Narrative Exam Narrative: Gen.: Awake, alert, in no distress Head: Normocephalic, atraumatic ENT: Moist mucous membranes Respiratory: No respiratory distress Extremities: Normal flexion and extension at the IP joint of the right thumb. 2.5 cm laceration noted across the fat pad of the right thumb. Minimal pulsatile bleeding from a capillary noted, no bone or significant tissue exposure Psych: Normal mood and affect Neuro: No focal neuro deficit Skin: Warm, dry Constitutional Vital Signs, click to edit/add: Last Vital Signs Temp 98.2 F 06/01/24 18:38 Pulse 96 H 06/01/24 18:38 Resp 20 06/01/24 18:38 BP 141/97 H 06/01/24 18:38 Pulse Ox 100 06/01/24 18:38 O2 Del Method Room Air 06/01/24 18:38 Course Vital Signs Vital signs: Vital Signs Temperature 98.2 F 06/01/24 18:38 Pulse Rate 96 H 06/01/24 18:38 Respiratory Rate 06/01/24 18:38 Blood Pressure 141/97 H 06/01/24 18:38 Pulse Oximetry 100 06/01/24 18:38 Oxygen Delivery Method Room Air 06/01/24 18:38 Temperature 98.2 F 06/01/24 18:38 Pulse Rate 96 H 06/01/24 18:38 Respiratory Rate 06/01/24 18:38 Blood Pressure 141/97 H 06/01/24 18:38 Pulse Oximetry 100 06/01/24 18:38 Oxygen Delivery Method Room Air 06/01/24 18:38 MDM - Wound/Laceration MDM Narrative Medical decision making narrative: Laceration repaired without difficulty. Please see procedure note for details. Patient was feeling nauseous prior to the procedure and was given Zofran ODT. She was encouraged to continue wound care for home. She is allergic to topical antibiotic ointments. She was encouraged to use Vaseline for wound care at home. Laceration repair: Done under sterile conditions. The use of Shur-Clens prep the area. Digital block with lidocaine 1% was used, approximately 5 cc. The wound was irrigated copiously with normal saline. The wound was explored there was no evidence of foreign material. The laceration was approximated with 4-0 nylon. 5 interrupted sutures were placed. Patient tolerated the procedure well. The patient was neurovascularly intact post. the patient had bacitracin applied to the laceration and a dry sterile dressing was place. The patient will need to follow-up in the next 8-10 days for removal SUPERVISED APC VISIT, PHYSICIAN ATTESTATION: Based on the medical record the care appears appropriate. ? Medical Records Attestation: I reviewed the patient's medical records. Discharge Plan Discharge Chief Complaint: Wound/Laceration Clinical Impression: Laceration of thumb Patient Disposition: Home, Self-Care Time of Disposition Decision: 19:07 Condition: Good Prescriptions / Home Meds: No Action Probiotic Formula (inulin) 1 billion-250 cell-mg capsule PO multivitamin [Daily Multi-Vitamin] Tablet 1 tab PO DAILY ibuprofen 800 mg tablet 800 mg PO Q8H PRN (Reason: pain) 14 Days Qty: 40 0RF hydrocodone-acetaminophen 5-325 mg tablet 1 tab PO Q4H PRN (Reason: pain) 4 Days Qty: 16 0RF Print Language: Sinhala Instructions: Finger Laceration (ED) Additional Instructions: Sutures removed in 8 to 10 days with primary care or urgent care Referrals: BUFFY DIANE [Primary Care Provider] - 1 week
--- OUTSIDE RECORDS SUMMARY | 2024-06-01 18:41 | XMS_ITS | CCD ---
Author Organization [facility] Care Team Providers Care Teacher Lip Reading Name Role Phone Sri Ramírez MD Primary Care Provider [phone] JASON FABIAN Referring Unavailable DESIREE, SRI Mera Primary Care Unavailable PARSJASON WELCH Referring Unavailable DESIREE, SRI Samaria Primary Care Unavailable JASON FABIAN Referring Unavailable DESIREE, SRI Mera Primary Care Unavailable JASON FABIAN Referring Unavailable DESIREE, SRI Mera Primary Care Unavailable DESIREE, DR BAER Primary Care Unavailable BK DENT Admitting Unavailable BK DENT Attending Unavailable ALISA MOULTON Consulting Unavailable MAXIM, DR WESTON Admitting Unavailable MAXIM, DR WESTON Attending Unavailable DESIREE, DR BAER Primary Care Unavailable MAXIM, DR WESTON Consulting Unavailable DESIREE SRI Mera Primary Care Unavailable DILCIA LAZO Attending Unavailable Desiree DILLON Sri Samaria Primary Care Provider Damien Kahn DOca Richard Unavailable Aris BRUNSON-Elvie ENCISO Unavailable DESIREE SRI Samaria Primary Care Physician Femi ROQUE Kayla R Unavailable Bonita Yu Attending Unavailable Bonita Yu Attending Unavailable Mitra Ellis Attending Unavailable Mitra Ellis Admitting Unavailable JONAH GOMEZ Attending Unavailable JONAH GOMEZ Attending Unavailable DAJA EPPERSON Attending Unavailable ALEXIS DONG Attending Unavailable ALEXIS DONG Attending Unavailable ALEXIS DONG Referring Unavailable DESIREE SRI Samaria Attending Unavailable ELVIE BARAHONA Attending Unavailab le ELVIE BARAHONA Attending Unavailab JOSE El Attending Unavailable DAJA EPPERSON Attending Unavailable JOSE PAN Attending Unavailable JOSE PAN Attending Unavailable JOSE PAN Attending Unavailable Allergies Allergy Classification Reported Allergen(s) Allergy Type Date of Onset Reaction(s) Facility (20 sources) Bacitracin / Polymyxin B; Translations: [bacitracin-taylor ymyxin B topical] Drug Allergy 3 Unknown (qualifier value) [facility] (20 sources) busPIRone; Translations: [buspirone] Drug Allergy 3 Anxiety, Anxiety (finding) [facility] (20 sources) Escitalopram; Translations: [escitalopram] Drug Allergy 3 Other, Drowsy (finding) [facility] (2 sources) busPIRone; Translations: [BuSpar] Drug Allergy [facility] (2 sources) Escitalopram; Translations: [Lexapro] Drug Allergy [facility] (2 sources) Bacitracin-Poly myxin; Translations: [Bacitracin-Taylor ymyxin] Propensity to adverse reactions (disorder) [facility] Medications Current Medications Medication Drug Class(es) Dates Sig (Normalized) Sig (Original) Clindamycin (1 source) Lincosamide Antibacterial Start: 03-09-2024 [...] 06-08-2021 escitalopram (LEXAPRO) 5 MG tablet metroNIDAZOLE 0.013 mg/mg vaginal gel (10 sources) Nitroimidazole Antimicrobial Start: 05-23-2024 End: 05-23-2024 metroNIDAZOLE (Nuvessa) 1.3 % gel Indications: Vaginal discharge , Vaginal burning Insert 5 g into the vagina 1 time for 1 dose 5 g 05/23/2024 05/23/2024 Discontinued (Other) Start: 03-09-2024 End: 03-14-2024 metroNIDAZOLE (Metrogel) 0.7 5 % vaginal gel Indications: Bacterial vaginosis Insert [...] & Azithromycin. 7 tablet 02/15/2024 02/22/2024 Active Multiple Vitamin (multivitamin) tablet (5 sources) take 1 tablet by mouth once daily Multiple Vitamin (multivitamin) tablet Take 1 tablet by mouth Daily Active polyethylene glycol 3350 22282 mg powder for oral solution (4 sources) [...] mouth daily 30 capsule 0 06/12/2021 Active ubidecarenone 30 mg oral capsule (2 sources) take 1 capsule by mouth once daily co-enzyme Q-10 30 MG capsule Take 30 mg by mouth Daily Active Completed/Discontinued Medications Medication Drug Class(es) Dates Sig (Normalized) Sig (Original) atomoxetine 40 mg oral capsule (3 sources) Norepinephrine Reuptake Inhibitor End: 01-11-2024 take 1 capsule by mouth once daily atomoxetine (Strattera) 40 MG capsule Take 1 capsule by mouth Daily 01/11/2024 Discontinued (Other) azithromycin 500 mg oral tablet (8 sources) Macrolide Antimicrobial Start: 02-15-2024 End: 04-20-2024 take 1 tablet by mouth once daily azithromycin (Zithromax) 500 MG tablet Indications: Bacterial infection due to mycoplasma Day 1: Take 2 tablets PO onetime dose; Day 2,3,4: Take 1 tablet daily 5 tablet 02/15/2024 04/20/2024 Discontinued (Therapy completed) sertraline 25 mg oral tablet (3 sources) Serotonin Reuptake Inhibitor Start: 11-16-2023 End: 11-15-2024 take 1 tablet by mouth once daily sertraline (Zoloft) 25 MG tablet Indications: Generalized anxiety disorder (CMS/HCC) Take 1 tablet (25 mg) by mouth Daily 30 tablet 1 11/16/2023 01/11/2024 Discontinued (Other) Problems Active Problems Problem Classification Problem Date Documented Da te Episodic/Chronic Adjustment disorders (20 sources) Adjustment disorder with mixed anxiety and depressed mood; Translations: [Adjustment disorder with mixed anxiety and depressed mood] Onset: 09-06-2022 09-06-2022 Chronic Allergic reactions (1 source) Unspecified contact dermatitis, unspecified cause; Translations: [UNS CONTACT DERMATITIS UNS CAUSE] Onset: 05-05-2022 Episodic Anxiety disorders (20 sources) Anxiety; Translations: [Anxiety disorder, unspecified] Onset: 09-06-2022 09-06-2022 Chronic Calculus of urinary tract (13 sources) Kidney stone; Translations: [Calculus of kidney] Onset: 07-25-2013 03-27-2014 Episodic Genitourinary symptoms and ill-defined conditions (15 sources) Dysuria; Translations: [Dysuria] Onset: 03-01-2024 Episodic Menstrual disorders (20 sources) Amenorrhea; Translations: [Amenorrhea, unspecified] Onset: 09-06-2022 09-06-2022 Chronic Mood disorders (20 sources) Bipolar affective disorder, currently depressed, moderate; Translations: [Bipolar disorder, current episode depressed, moderate] Onset: 09-06-2022 09-06-2022 Chronic Other aftercare (2 sources) Surgical follow-up; Translations: [Encounter for follow-up examination after completed treatment for conditions other than malignant neoplasm] 04-20-2024 Episodic Other diseases of kidney and ureters (3 sources) Hydronephrosis; Translations: [Hydronephrosis with renal and ureteral calculous obstruction] Episodic Other female genital disorders (2 sources) Vaginal discharge; Translations: [Other specified noninflammatory disorders of vagina] 05-23-2024 Episodic Other female genital disorders (2 sources) Burning sensation of vagina; Translations: [Other specified conditions associated with female genital organs and menstrual cycle] 05-23-2024 Episodic Other gastrointestinal disorders (20 sources) Irritable bowel syndrome with diarrhea; Translations: [Irritable bowel syndrome with diarrhea] Onset: 09-06-2022 09-06-2022 Chronic Other inflammatory condition of skin (3 sources) Pruritus, unspecified; Translations: [PRURITUS UNSPECIFIED] Onset: 05-03-2022 Episodic Other nervous system disorders (20 sources) Inattention; Translations: [Attention and concentration deficit] Onset: 09-06-2022 09-06-2022 Chronic Past or Other Problems Problem Classification Problem Date Documented Da te Episodic/Chronic Abdominal pain (20 sources) Suprapubic pain; Translations: [Pelvic and perineal pain] Onset: 09-06-2022 Episodic Bacterial infection; unspecified site (13 sources) Mycoplasma infection; Translations: [Mycoplasma infection, unspecified site] Onset: 02-15-2024 02-15-2024 Episodic Complication of device; implant or graft (20 sources) Disorder of intrauterine contraceptive device; Translations: [Unspecified complication of genitourinary prosthetic device, implant and graft, initial encounter] Onset: 09-06-2022 09-06-2022 Episodic Immunizations and screening for infectious disease (1 source) Encounter for screening for human papillomavirus (HPV); Translations: [ENC SCREENING HUMAN PAPILLOMAVIRUS] Onset: 05-22-2021 Episodic Inflammatory diseases of female pelvic organs (14 sources) Bacterial vaginosis; Translations: [Acute vaginitis] Onset: 02-15-2024 02-15-2024 Episodic Other complications of (20 sources) Anxiety in ; Translations: [Other mental disorders complicating , unspecified trimester] Onset: 03-26-2020 11-17-2022 Episodic Other complications of (20 sources) 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 ; Translations: [Other mental disorders complicating , unspecified trimester] Onset: 03-26-2020 11-17-2022 Episodic Other female genital disorders (13 sources) Vaginal odor; Translations: [Other specified noninflammatory disorders of vagina] Onset: 02-15-2024 02-15-2024 Episodic Other gastrointestinal disorders (20 sources) Slow transit constipation; Translations: [Slow transit constipation] Onset: 09-06-2022 09-06-2022 Episodic Other infections; including parasitic (20 sources) History of chlamydial infection; Translations: [Personal history of other infectious and parasitic diseases] Onset: 03-26-2020 10-21-2023 Episodic Other screening for suspected conditions (not mental disorders or infectious disease) (4 sources) Encounter for screening for malignant neoplasm of cervix; Translations: [ENC SCREENING MALIG NEOPLASM CERV] Onset: 05-21-2021 Episodic Urinary tract infections (14 sources) Cystitis, unspecified with hematuria; Translations: [Urinary tract infectious disease] Onset: 09-22-2023 02-15-2024 Episodic Results Test Name Value Interpretation Reference Range Facility Reminderson 04-12-2024 Reminders Reminders From: Anayeli Laureano To: EU - Administrative; Sent: 03/01/2024 11:42:31 EST Show up: 03/22/2024 11:42:00 EST Subject: Ambulatory Reminder Due Date/Time: 05/28/2024 11:42:00 EST Reminder/Recall Patient needs scheduled with SURYA for a 3 month F/U, due back in May 2024 MAY 16 W/ [facility] IN [facility] ALL CBC WITH AUTO DIFFon BASOPHILS ABSOLUTE AUTO 0 [facility] Basophils/100 WBC (Bld) 0.4 % 0.2 - 2.0 % [facility] Eosinophils/100 WBC (Bld) 2.3 % 0.9 - 7.0 % [facility] Erythrocyte distribution width (RBC) [Ratio] 11.9 % 11.0 - 15.0 % [facility] Hematocrit (Bld) [Volume fraction] 42 % 36.0 - 48.0 % [facility] Hemoglobin (Bld) [Mass/Vol] 14.4 g/dL 12.0 - 16.0 g/dL [facility] IMMATURE GRANULOCYTES ABS AUTO 0.01 [facility] Immature granulocytes/100 WBC (Bld) 0.2 % 0.0 - 0.5 % [facility] Interpretation and review of laboratory results Abnormal [facility] LYMPHOC[facility]TES ABSOLUTE AUTO 2 [facility] Lymphocytes/100 WBC (Bld) 42.5 % 20.5 - 60.0 % [facility] MCH (RBC) [Entitic mass] 30.6 pg 26.7 - 34.0 pg [facility] MCHC (RBC) [Mass/Vol] 34.3 g/dL 29.9 - 35.2 g/dL [facility] MCV (RBC) [Entitic vol] 89.2 fL 81.0 - 99.0 fL [facility] MONOCYTES ABSOLUTE AUTO 0.5 [facility] Monocytes/100 WBC (Bld) 11 % 1.7 - 12.0 % [facility] NEUTROPHILS ABSOLUTE AUTO 2.1 [facility] Neutrophils/100 WBC (Bld) 43.6 % 43.0 - 75.0 % [facility] Platelet mean volume (Bld) [Entitic vol] 9.4 fL Low 9.5 - 13.5 fL [facility] EO # 0.1 [facility] PLT 293 [facility] RBC 4.71 [facility] WBC 4.7 [facility] C Urineon 03-24-2024 Bacteria identified Cx Nom (U) Microbiology PROCEDURE: Urine Culture [R1] SOURCE: U CleanCatch BODY SITE: COLLECTED DATE/TIME: 03/21/2024 16:10 EST RECEIVED DATE/TIME: 03/22/2024 18:32 EST START DATE/TIME: 03/22/2024 18:32 EST FREE TEXT SOURCE: Rhonda NEGRO, Mitra NEGRO, Mitra Barrera FINAL REPORTS Final Report [] Verified Date/Time: [...] Locations R1: This test was performed at: [facility], [address] [place] [address], [phone] [phone] , [facility] Comment on above: Performed By: #### [id number] #### [facility] [address] [place] [id number] Urinalysis macro (dipstick) panel (U)on 02-15-2024 Bilirubin, UA Negative Negative - 4(70) +++ mg/dL [facility] Blood, UA Negative Negative - 50 Allen/mcL [facility] Clarity, UA [facility] re Color, UA Yellow [facility] e Glucose, UA Negative Negative - 1999(110) ++++ mg/dL [facility] Interpretation and review of laboratory results Normal [facility] Ketones, UA Negative Negative - 160(16) ++++ mg/dL [facility] Leukocytes, UA Negative Negative - 500+++ Andrei/mcL [facility] Nitrite, UA Negative Negative - Positive [facility] pH, UA 7 5 - 9 [facility] Protein, UA Negative Negative - 1999(20) ++++ mg/dL [facility] Spec Grav, UA 1.01 1 - 1.03 [facility] Urobilinogen, UA 0.2 0.2 - 12 mg/dL [facility] IGP,APTIMA HPV,AGE GDLNon AGE GDLN ACOG TESTING Note . [facility] Comment on above: TESTS RESULT FLAG UN ITS REF RANGE LAB Clinician Provided Cytology Information Source.............Cervix;Endocervix No. of containers..01 ThinPrep Vial Age Leslie TERRELL Dione... FLAG LEGEND: L-Low Normal,H-High Normal,LL-Alert Low,HH-Alert High <-Panic Low,>-Panic High,A-Abnormal,AA-Critical Abnormal Performed at: 01 [facility] [address] [place] [address] Cristiane Eduardo MD, IGP, RFX APTIMA HPV ASCU Note . [facility] Comment on above: TESTS RESULT FLAG UN ITS REF RANGE LAB DIAGNOSIS: 02 NEGATIVE FOR INTRAEPITHELIAL LESION OR MALIGNANCY. Specimen adequacy: 02 Satisfactory for evaluation. Endocervical and/or squamous metaplastic cells (endocervical component) are present. Performed by: Jemma Sin Property Controller ([facility]) . 02 Note: Note 03 The Pap [...] <-Panic Low,>-Panic High,A-Abnormal,AA-Critical Abnormal Performed at: 02 [facility] [address] [place] [address] Mayur Coleman MD, 03 WB [facility] [address] [address] Cristiane Eduardo MD, Performed at: =G - [facility] [address] [id number] Fitness Centre Manager: Cristiane Eduardo MD, Phone: [phone] Performed at: [facility] - [facility] [address] [place], [place] [id number] Fitness Centre Manager: Mayur Coleman MD, Phone: [phone] BRUSH-SPATULA CERVIX ENDOCERVIX [facility] Cytology Cervical or vaginal smear or scraping studyon 01-27-2024 [facility] No Panel Informationon 01-12 STAPHYLOCOCCUS EPIDERMIDIS, HAEMOLYTICUS, LUGDUNENSIS, SAPROPHYTICUS (URINA 0.000 [facility] STAPHYLOCOCCUS EPIDERMIDIS, HAEMOLYTICUS, LUGDUNENSIS, SAPROPHYTICUS (URINA Not detected [facility] URINARY TRACT INFECTION (HTR X)on 01-13-2024 ACINETOBACTER BAUMANII 0.000 [facility] ACINETOBACTER BAUMANII Not detected [facility] REAL ALBICANS, PARAPSILOSIS, TROPICALIS 0.000 [facility] REAL ALBICANS, PARAPSILOSIS, TROPICALIS Not detected [facility] REAL GLABRATA 0.000 [facility] REAL GLABRATA Not detected [facility] REAL KRUSEI 0.000 [facility] REAL KRUSEI Not detected [facility] CITROBACTER FREUNDII 0.000 [facility] CITROBACTER FREUNDII Not detected [facility] ENTEROBACTER AEROGENES, CLOACAE 0.000 [facility] ENTEROBACTER AEROGENES, CLOACAE Not detected [facility] ENTEROCOCCUS FAECALIS, FAECIUM 0.000 [facility] ENTEROCOCCUS FAECALIS, FAECIUM Not detected [facility] ESCHERICHIA COLI 0.000 [facility] ESCHERICHIA COLI Not detected [facility] KLEBSIELLA PNEUMONIAE, OXYTOCA 0.000 [facility] KLEBSIELLA PNEUMONIAE, OXYTOCA Not detected [facility] MORGANELLA MORGANII 0.000 [facility] MORGANELLA MORGANII Not detected [facility] PROTEUS MIRABILIS, VULGARIS 0.000 [facility] PROTEUS MIRABILIS, VULGARIS Not detected [facility] PSEUDOMONAS AERUGINOSA 0.000 [facility] PSEUDOMONAS AERUGINOSA Not detected [facility] SERRATIA MARCESCENS 0.000 [facility] SERRATIA MARCESCENS Not detected [facility] STAPHYLOCOCCUS AUREUS 0.000 [facility] STAPHYLOCOCCUS AUREUS Not detected [facility] STREPTOCOCCUS AGALACTIAE (GROUP B STREP) 0.000 [facility] STREPTOCOCCUS AGALACTIAE (GROUP B STREP) Not detected [facility] STREPTOCOCCUS PYOGENES (GROUP A STREP) 0.000 [facility] STREPTOCOCCUS PYOGENES (GROUP A STREP) Not detected [facility] HCG ( test) Ql (U)o n 01-11-2024 Interpretation and review of laboratory results Normal [facility] Preg Test, Ur Negative [facility] Urinalysis macro (dipstick) panel (U)on 01-11-2024 Bilirubin, UA Negative Negative - 4(70) +++ mg/dL [facility] Blood, UA Positive Negative - 50 Allen/mcL [facility] Clarity, UA Clear [facility] Color, UA Yellow [facility] Glucose, UA Negative Negative - 2000(110) ++++ mg/dL [facility] Interpretation and review of laboratory results Abnormal [facility] Ketones, UA Positive Negative - 160(16) ++++ mg/dL [facility] Leukocytes, UA Negative Negative - 500+++ Andrei/mcL [facility] Nitrite, UA Negative Negative - Positive [facility] pH, UA 6.5 5 - 9 [facility] Protein, UA Negative Negative - 2000(20) ++++ mg/dL [facility] Spec Grav, UA 1.015 1 - 1.03 [facility] Urobilinogen, UA 1.0 0.2 - 12 mg/dL [facility] XR CERVICAL SPINE COMPLETE 4 [...] SIGNIFICANT GROWTH Report Status FINAL 09/23/2023 Normal [facility] Comment on above: Performed By: #### U RC #### [place] [address] Fitness Centre Manager: Moisés Carl MD [address] [address] Fitness Centre Manager: Wan Morales MD HCG, ,Urineon 09-21 Beta HCG ( test) Ql (U) Negative Normal NEG [facility] Comment on above: Result Comment: Spec imens with hCG levels near the threshold of the test (25 mIU/mL) may give a negative or indeterminate result. In such cases, another test should be performed with a new specimen in 48-72 hours. If early is suspected clinically in this setting, correlation with quantitative serum b-hCG level is suggested. Performed By: #### U AX, UHCG, UMICAO #### [address] [address] Fitness Centre Manager: Wan Morales MD UA w/Reflex Cultureon 2023 Bilirubin, SemiQt,Ur Negative Abnormal NEG [facility] Comment on above: Performed By: #### U AX, UHCG, UMICAO #### [address] [address] Fitness Centre Manager: Wan Morales MD Blood, Urine LARGE Abnormal NEG [facility] Comment on above: Performed By: #### U AX, UHCG, UMICAO #### [address] [address] Fitness Centre Manager: Wan Morales MD Clarity (U) SLIGHTLY CLOUDY Abnormal CLEAR [facility] Comment on above: Performed By: #### U AX, UHCG, UMICAO #### [place] [address] Fitness Centre Manager: Wan Morales MD Color (U) Red Abnormal YEL [facility] Comment on above: Performed By: #### U AX, UHCG, UMICAO #### [address] [address] Fitness Centre Manager: Wan Morales MD Comment INTERPRET WITH CAUTION DUE TO INTENSE COLOR OF URINE. Normal [facility] Comment on above: Performed By: #### U AX, UHCG, UMICAO #### [address] [address] Fitness Centre Manager: Wan Morales MD Glucose Ql (U) Negative Normal NEG [facility] Comment on above: Performed By: #### U AX, UHCG, UMICAO #### [address] [address] Fitness Centre Manager: Wan Morales MD Ketones Ql (U) Negative Normal NEG [facility] Comment on above: Performed By: #### U AX, UHCG, UMICAO #### [place] [address] Fitness Centre Manager: Wan Morales MD Leukocyte esterase Test strip Ql (U) MODERATE Abnormal NEG [facility] Comment on above: Performed By: #### U AX, UHCG, UMICAO #### [place] [id number] Fitness Centre Manager: Wan Morales MD Nitrite,Ur Positive Abnormal NEG [facility] Comment on above: Performed By: #### U AX, UHCG, UMICAO #### [place] [address] Fitness Centre Manager: Wan Morales MD PH,Ur 7.0 Normal 5.0-8.0 [facility] Comment on above: Performed By: #### U AX, CG, UMICAO #### [place] [id number] Fitness Centre Manager: Wan Morales MD Protein Ql (U) 3+ mg/dL Abnormal NEG [facility] Comment on above: Performed By: #### U AX, UHCG, UMICAO #### [place] [address] Fitness Centre Manager: Wan Morales MD Spec. [place],Ur 1.010 Normal 1.005-1.030 [facility] Comment on above: Performed By: #### U AX, UHCG, UMICAO #### [place] [id number] Fitness Centre Manager: Wan Morales MD Urobilinogen,Ur Normal Normal 0.0-1.0 [facility] Comment on above: Performed By: #### U AX, UHCG, UMICAO #### [place] [address] Fitness Centre Manager: Wan Morales MD Urinalysis,Microon 4 Bacteria MODERATE Abnormal NONE [facility] Comment on above: Performed By: #### U AX, UHCG, UMICAO #### [place] [address] Fitness Centre Manager: Wan Morales MD Epithelial cells LM Ql (Urine sed) 5 TO 10 Normal 0-5 [facility] Comment on above: Performed By: #### U AX, UHCG, UMICAO #### [place] [address] Fitness Centre Manager: Wan Morales MD Other Observations Culture ordered base d on defined criteria. Abnormal NREQ [facility] Comment on above: Performed By: #### U AX, UHCG, UMICAO #### [place] [address] Fitness Centre Manager: Wan Morales MD Urine RBC's TOO NUMEROUS TO COUNT Normal 0-2 Me [facility] Comment on above: Performed By: #### U AX, UHCG, UMICAO #### [place] [address] Fitness Centre Manager: Wan Morales MD Urine WBC's TOO NUMEROUS TO COUNT Normal 0-5 Me [facility] Comment on above: Performed By: #### U AX, UHCG, UMICAO #### [place] [address] Fitness Centre Manager: Wan Morales MD US RENAL COMPLETEon 06-21-19 [...] Sri Galeas MD 06/20/21 Final result Normal [facility] 1. Nonobstructing left renal stones measuring up to 5 mm. 2. No hydronephrosis. [facility] RIS CONSOLIDATED EXAMINATION: RETROPERITONEAL ULTRASOUND OF THE KIDNEYS [...] the bladder. No significant post void residual. [facility] RIS CONSOLIDATED Sri Galeas MD - 06/20/2021 EXAMINATION: [...] up to 5 mm. 2. No hydronephrosis. [employer] Phone: US RENAL COMPLETEOrdered By: Sri Galeas on 06-20-2021 [employer] Phone: US RENAL COMPLETEon 06-20-19 Radiology Study observation (narrative) [employer] Phone: XR ABDOMEN (KUB) (SINGLE AP VIEW)on [...] by: See Herrera 06/19/21 Final result Normal [facility] No definite evidence of renal or ureteral stones. [facility] CONSOLIDATED EXAMINATION: ONE SUPINE XRAY VIEW(S) OF [...] urine collecting system. Osseous structures are normal. [facility] CONSOLIDATED See Herrera - 06/19/2021 EXAMINATION: ONE [...] definite evidence of renal or ureteral stones. [employer] Phone: Radiology Study observation (narrative) [facility] [employer] Phone: XR ABDOMEN (KUB) (SINGLE AP VIEW)Ordered By: See Herrera on 06-19-2021 [facility] Phone: Cult,Urineon 06-14-2021 Cult,Urine Specimen Description .VOIDED URINE Culture NO SIGNIFICANT GROWTH Report Status FINAL 06/14/2021 Normal [facility] Comment on above: Performed By: #### U RC #### [facility] [address] [place], [place] [id number] Fitness Centre Manager: Moisés Carl MD [facility] [address] [place] [address] [place] [address] Fitness Centre Manager: Filemon Gutiérrez MD Urinalysis w/ Microon 2021 ----- Normal [facility] Comment on above: Performed By: #### U AMIC #### [facility] [address] [place] [address] Dr. [place], [place] [id number] Fitness Centre Manager: Filemon Gutiérrez MD Epithelial cells LM Ql (Urine sed) 2 TO 5 Normal 0-25 [facility] Comment on above: Performed By: #### U AMIC #### [facility] [address] [place] [address] Dr. [place], [place] [id number] Fitness Centre Manager: Filemon Gutiérrez MD Urine RBC's 0 TO 2 Normal 0-2 [facility] Comment on above: Performed By: #### U AMIC #### [facility] [address] [place] [address] Fitness Centre Manager: Filemon Gutiérrez MD Urine WBC's 0 TO 2 Normal 0-5 [facility] Comment on above: Performed By: #### U AMIC #### [facility] [address] [place] [address] Fitness Centre Manager: Filemon Gutiérrez MD Bilirubin, SemiQt,Ur Negative Normal NEG [facility] Comment on above: Performed By: #### U AMIC #### [facility] [address] [place] [address] Fitness Centre Manager: Filemon Gutiérrez MD Blood, Urine Negative Normal NEG [facility] Comment on above: Performed By: #### U AMIC #### [facility] [address] [place] [address] Fitness Centre Manager: Filemon Gutiérrez MD Clarity (U) Clear Normal CLEAR [facility] Comment on above: Performed By: #### U AMIC #### [facility] [address] [place] [address] Fitness Centre Manager: Filemon Gutiérrez MD Color (U) Yellow Normal YEL [facility] Comment on above: Performed By: #### U AMIC #### [facility] [address] [place], [facility] Fitness Centre Manager: Filemon Gutiérrez MD Glucose Ql (U) Negative Normal NEG [facility] Comment on above: Performed By: #### U AMIC #### [facility] [address] [place] [address] [place] [address] Fitness Centre Manager: Filemon Gutiérrez MD Ketones Ql (U) Negative Normal NEG [facility] Comment on above: Performed By: #### U AMIC #### [facility] [address] [place], [facility] Fitness Centre Manager: Filemon Gutiérrez MD Leukocyte esterase Test strip Ql (U) Negative Normal NEG [facility] Comment on above: Performed By: #### U AMIC #### [facility] [address] [place] [address] Fitness Centre Manager: Filemon Gutiérrez MD Nitrite,Ur Negative Normal NEG [facility] Comment on above: Performed By: #### U AMIC #### [facility] [address] [place], [place] [id number] Fitness Centre Manager: Filemon Gutiérrez MD PH,Ur 7.0 Normal 5.0-9.0 [facility] Comment on above: Performed By: #### U AMIC #### [facility] [address] [place], [place] [id number] Fitness Centre Manager: Filemon Gutiérrez MD Protein Ql (U) Negative Normal NEG [facility] Comment on above: Performed By: #### U AMIC #### [facility] [address] [place], [place] [id number] Fitness Centre Manager: Filemon Gutiérrez MD Spec. [place],Ur 1.010 Normal 1.010-1.020 [facility] Comment on above: Performed By: #### U AMIC #### [facility] [address] [place] [address] [place], [place] [id number] Fitness Centre Manager: Filemon Gutiérrez MD Urobilinogen,Ur Normal Normal NORM [facility] Comment on above: Performed By: #### U AMIC #### [facility] [address] [place], [place] [id number] Fitness Centre Manager: Filemon Gutiérrez MD Urinalysis with Microscopico n 06-12-2021 - [facility] Bilirubin Urine Negative NEGATIVE [facility] Color, UA Yellow Yellow [facility] Epithelial Cells UA 2 TO 5 [facility] Glucose, Ur Negative NEGATIVE [facility] Ketones Ql (U) Negative NEGATIVE [facility] Leukocyte esterase Test strip Ql (U) Negative NEGATIVE [facility] Nitrite, Urine Negative NEGATIVE [facility] pH, UA 7.0 [facility] Protein, UA Negative NEGATIVE [facility] RBC, UA 0 TO 2 [facility] Specific [place], UA 1.010 [facility] Turbidity UA Clear Clear [facility] Urine Hgb Negative NEGATIVE [facility] Urobilinogen, Urine Normal Normal [facility] WBC, UA 0 TO 2 [facility] PAP ACOG PANEL 2: 21 to 29on 05-25-2021 . . Normal [facility] Comment on above: Performed By: #### [id number] #### [facility] [address] [place] [address] Age Gdln ACOG Testing 21-[address] [facility] Comment on above: Performed By: #### [id number] #### [facility] [address] [place] [address] DIAGNOSIS: Comment [facility] Comment on above: Result Comment: NEGA TIVE FOR INTRAEPITHELIAL LESION OR MALIGNANCY. Performed By: #### [id number] #### [facility] [address] [place] [address] Methodology: Comment [facility] Comment on above: Result Comment: This liquid based ThinPrep(R) pap test was screened with the use of an image guided system. Performed By: #### [id number] #### [facility] [address] [place] [address] Note: Comment [facility] Comment on above: Result Comment: The Pap smear is a screening test designed to aid in the detection of premalignant and malignant conditions of the uterine cervix. It is not a diagnostic procedure and should not be used as the sole means of detecting cervical cancer. Both false-positive and false-negative reports do occur. . Performed By: #### [id number] #### [facility] [address] [place] [address] Performed by: Comment Normal [facility] Comment on above: Result Comment: Mariia Negron Property Controller (ASCP) Performed By: #### [id number] #### [facility] [address] [place] [address] Reflex Criteria: Comment [facility] Comment on above: Result Comment: The HPV DNA reflex criteria were not met with this specimen result therefore, no HPV testing was performed. . Performed By: #### [id number] #### [facility] [address] [place] [address] Specimen adequacy: Comment Normal [facility] Comment on above: Result Comment: Sati sfactory for evaluation. Endocervical and/or squamous metaplastic cells (endocervical component) are present. Performed By: #### [id number] #### [facility] [address] [place] [address] Vital Signs Date Time Vital Sign Value Performing Clinician Facility 05-23-2024 09:03-0500 Body mass index (BMI) [Ratio] 22.57 kg/m2 Daja CUELLAR Work Phone: [facility] 05-23-2024 09:03-0500 Body weight 65.37 kg Daja CUELLAR Work Phone: [facility] 05-23-2024 09:03-0500 Diastolic blood pressure 74 mm[Hg] Daja CUELLAR Work Phone: [facility] 05-23-2024 09:03-0500 Systolic blood pressure 118 mm[Hg] Daja CUELLAR Work Phone: [facility] 04-20-2024 14:37-0500 Body mass index (BMI) [Ratio] 22.57 kg/m2 Jose Maxim DO Work Phone: [facility] 04-20-2024 14:37-0500 Body weight 65.37 kg Jose Maxim DO Work Phone: [facility] 04-20-2024 14:37-0500 Diastolic blood pressure 68 mm[Hg] Jose Maxim DO Work Phone: [facility] 04-20-2024 14:37-0500 Systolic blood pressure 106 mm[Hg] Jose Maxim DO Work Phone: [facility] 03-09-2024 11:20-0500 Body mass index (BMI) [Ratio] 22.55 kg/m2 Jose Maxim DO Work Phone: [facility] 03-09-2024 11:20-0500 Body weight 65.32 kg Jose Maxim DO Work Phone: [facility] 03-09-2024 11:20-0500 Diastolic blood pressure 70 mm[Hg] Jose Maxim DO Work Phone: [facility] 03-09-2024 11:20-0500 Systolic blood pressure 114 mm[Hg] Jose Maxim DO Work Phone: [facility] 03-01-2024 10:47-0500 Blood Pressure Location Bonita Orzech [facility] 03-01-2024 10:47-0500 Diastolic blood pressure 66 mm[Hg] Bonita Orzech [facility] 03-01-2024 10:47-0500 Heart rate 79 /min Bonita Orzech [facility] 03-01-2024 10:47-0500 Respiratory rate 19 /min Bonita Orzech [facility] 03-01-2024 10:47-0500 Systolic blood pressure 102 mm[Hg] Bonita Orzech [facility] 02-15-2024 11:11-0500 Body mass index (BMI) [Ratio] 22.4 kg/m2 Jose Maxim DO Work Phone: [facility] 02-15-2024 11:11-0500 Body weight 64.86 kg Jose Maxim DO Work Phone: [facility] 02-15-2024 11:11-0500 Diastolic blood pressure 70 mm[Hg] Jose Maxim DO Work Phone: [facility] 02-15-2024 11:11-0500 Systolic blood pressure 110 mm[Hg] Jose Maxim DO Work Phone: [facility] 01-27-2024 14:13-0400 Body mass index (BMI) [Ratio] 22.08 kg/m2 Daja CUELLAR Work Phone: [facility] 01-27-2024 14:13-0400 Body weight 63.96 kg Daja CUELLAR Work Phone: [facility] 01-27-2024 14:13-0400 Diastolic blood pressure 68 mm[Hg] Daja CUELLAR Work Phone: [facility] 01-27-2024 14:13-0400 Systolic blood pressure 110 mm[Hg] Daja CUELLAR Work Phone: [facility] 01-11-2024 11:52-0400 Body mass index (BMI) [Ratio] 22.42 kg/m2 Jose Maxim DO Work Phone: [facility] 01-11-2024 11:52-0400 Body weight 64.92 kg Jose Maxim DO Work Phone: [facility] 01-11-2024 11:52-0400 Diastolic blood pressure 72 mm[Hg] Jose Maxim DO Work Phone: [facility] 01-11-2024 11:52-0400 Systolic blood pressure 108 mm[Hg] Jose Maxim DO Work Phone: [facility] Encounters Encounter Date Encounter Type Care Provider Facility Start: 05-23-2024 End: 05-23-2024 Bamboo flowsheet Daja CUELLAR Work Phone: [facility] Start: 05-23-2024 End: 05-23-2024 Bamboo flowsheet Daja CUELLAR Work Phone: [facility] Start: 05-23-2024 ambulatory JONAH GOMEZ Facili ty: [facility] Start: 05-23-2024 End: 05-23-2024 ambulatory DAJA EPPERSON Not Available Start: 05-23-2024 End: 05-23-2024 Office outpatient visit 15 minutes Daja CUELLAR Work Phone: [facility] Comment on above: Vaginal discharge; Vaginal burning Start: 05-16-2024 End: 05-16-2024 ambulatory JONAH GOMEZ Facility:[facility] Start: 05-16-2024 End: 05-16-2024 Patient encounter procedure JONAH GOMEZ [facility] Start: 04-20-2024 End: 04-20-2024 Bamboo flowsheet Daja CUELLAR Work Phone: [facility] Start: 04-20-2024 End: 04-20-2024 Bamboo flowsheet Daja CUELLAR Work Phone: [facility] Start: 04-20-2024 End: 04-20-2024 Postop follow up visit related to original px Jose Maxim DO Work Phone: [facility] Comment on above: Postoperative examin ation Start: 04-20-2024 End: 04-20-2024 ambulatory JOSE MAXIM Not Available Start: 04-01-2024 End: 04-01-2024 Clinisync Result Encounter Generic External Data Provider [facility] Unsolicited Start: 04-01-2024 End: 04-01-2024 Clinisync Result Encounter Generic External Data Provider [facility] Unsolicited Start: 03-21-2024 End: 03-21-2024 ambulatory Mitra J Leroyea [place] Start: 03-21-2024 End: 03-21-2024 Lab Drop off Mitra Barrera Gale[facility] Start: 03-21-2024 End: 03-21-2024 ambulatory Bonita X Orzech Facility:[facility] Start: 03-21-2024 End: 03-21-2024 Patient encounter procedure Bonita X Orzech [facility] Start: 03-09-2024 End: 03-09-2024 Bamboo flowsheet Jose Maxim DO Work Phone: [facility] Start: 03-09-2024 End: 03-09-2024 Bamboo flowsheet Jose Maxim DO Work Phone: [facility] Start: 03-09-2024 End: 03-09-2024 Office outpatient visit 15 minutes Jose Maxim DO Work Phone: [facility] Comment on above: Pre-op evaluation; Pelvic pain in female; Bacterial vaginosis Start: 03-09-2024 End: 03-09-2024 Preprocedural examination done Jose Maxim DO Work Phone: [facility] Start: 03-09-2024 End: 03-09-2024 ambulatory JOSE MAXIM Not Available Start: 03-01-2024 End: 03-01-2024 ambulatory Bonita X Orzech Facility:[facility] Start: 03-01-2024 End: 03-01-2024 Patient encounter procedure Bonita X Orzech [facility] Start: 02-15-2024 End: 02-15-2024 Bamboo flowsheet Jose Maxim DO Work Phone: [facility] Start: 02-15-2024 End: 02-15-2024 Bamboo flowsheet Jose Maxim DO Work Phone: [facility] Start: 02-15-2024 End: 02-15-2024 Office outpatient visit 15 minutes Jose Maxim DO Work Phone: [facility] Comment on above: Bacterial vaginosis; Urinary tract infection without hematuria, site unspecified; Vaginal odor; Bacterial infection due to mycoplasma Start: 02-15-2024 End: 02-15-2024 ambulatory JOSE MAXIM Not Available Start: 01-27-2024 End: 01-27-2024 Bamboo flowsheet Daja CUELLAR Work Phone: [facility] Start: 01-27-2024 End: 02-02-2024 Bamboo flowsheet Daja CUELLAR Work Phone: [facility] Start: 01-27-2024 End: 02-02-2024 Clinisync Result Encounter Generic External Data Provider [facility] External [facility] Unsolicited Start: 01-27-2024 End: 01-27-2024 Patient encounter procedure Daja Umanaey PA Work Phone: [facility] Work Phone: Start: 01-27-2024 End: 01-27-2024 Periodic preventive med est patient 18-39 yrs Daja Umanajuve CUELLAR Work Phone: [facility] Comment on above: Well woman exam with routine gynecological exam Start: 01-27-2024 End: 01-27-2024 ambulatory DAJA EPPERSON Not Available Start: 01-11-2024 End: 01-11-2024 Bamboo flowsheet Jose Maxim DO Work Phone: [facility] Start: 01-11-2024 End: 01-13-2024 External Result Encounter Jose Maxim DO Work Phone: [facility] Unsolicited Start: 01-11-2024 End: 01-13-2024 External Result Encounter Jose Maxim DO Work Phone: [facility] Unsolicited Start: 01-11-2024 End: 01-11-2024 ambulatory JOSE MAXIM Not Available Start: 01-11-2024 End: 01-11-2024 Office outpatient visit 15 minutes Jose Maxim DO Work Phone: [facility] Comment on above: Pelvic pain in femal e Start: 11-16-2023 End: 11-16-2023 ambulatory ELVIE M MARVEL-NOSSEK Not Available Start: 10-21-2023 End: 10-21-2023 ambulatory ELVIE M MARVEL-NOSSEK Not Available Start: 10-21-2023 End: 10-21-2023 ambulatory SRI RAMÍREZ Not Available Start: 09-28-2023 End: 09-28-2023 ambulatory ALEXIS DONG Not Available Start: 09-22-2023 End: 09-22-2023 Emergency department patient visit SRI Mera DESIREE [facility] Start: 08-03-2023 End: 08-03-2023 ambulatory ALEXIS DONG Not Available Start: 05-03-2022 End: 05-03-[address] SRI RAMÍREZ Facility:[facility] Start: 06-19-2021 End: 06-22-2021 ambulatory JASON Driscoll [facility] Start: 06-19-2021 End: 06-21-2021 Subsequent hospital visit by physician Juan Miguel Wilcox [address] [place] [address] Radiology Comment on above: Ureteral stone with hydronephrosis Ureteral stone with hydronephrosis; Suprapubic pain; Dysuria; Urgency of urination Start: 06-12-2021 End: 06-13-2021 ambulatory JASON FABIAN [facility] Start: 06-12-2021 End: 06-12-2021 Subsequent hospital visit by physician Sri Ramírez MD Work Phone: [facility] Comment on above: Ureteral stone with hydronephrosis; Suprapubic pain; Dysuria; Urgency of urination Start: 05-21-2021 End: 05-21-[address] JOSE PAN Facility:[facility] Procedures Date Procedure Procedure Detail Performing Clinician Start: 04-01-2024 ALL CBC WITH AUTO DIFF Jose Maxim DO Work Phone: Start: 02-15-2024 Urnls dip stick/tabl et rgnt non-auto w/o micrscp Jose Maxim DO Work Phone: Start: 01-27-2024 IGP,APTIMA HPV,AGE GDLN Daja CUELLAR Work Phone: Start: 01-27-2024 Cytp cerv/vag auto t hin layer prep mnl screen Jose Maxim DO Work Phone: Start: 01-11-2024 URINARY TRACT INFECT ION (HTRX) Jose Maxim DO Work Phone: Start: 01-11-2024 End: 01-11-2024 Urnls dip stick/tablet rgnt non-auto w/o micrscp Jose Maxim DO Work Phone: Start: 06-19-2021 Radiologic exam abdo men 1 view Jason Fabian IMAGERY ANALYST - ENAMEL DIPPER Work Phone: Start: 06-19-2021 Us retroperitoneal r eal time w/image complete Jason Fabian IMAGERY ANALYST - ENAMEL DIPPER Work Phone: Start: 06-12-2021 Urnls dip stick/tabl et reagent auto microscopy Jason Fabian IMAGERY ANALYST - ENAMEL DIPPER Work Phone: Start: 04-13-2014 Lithotripsy Bonita Orz ech Plan of Treatment Date Care Activity Detail Author Start: 06-24-2030 DTaP/Tdap/Td vaccine (8 - Td or Tdap) DTaP/Tdap/Td vaccine (8 - Td or Tdap) [employer] Start: 02-06-2025 End: 02-06-2025 Patient encounter procedure 02/06/2025 11:00 AM EDT Office Visit [facility] [address] [place] [id number] Jose Pan, DO [address] [place] [address] [facility] Start: 04-20-2024 End: 04-20-2024 Patient encounter procedure 04/20/2024 8:50 AM EST Office Visit [facility] [address] [place] [phone] Daja Epperson, ALISA [address] [place] [address] Arrived [facility] Comment on above: Arrived Start: 03-09-2024 End: 03-09-2024 Patient encounter procedure 03/09/2024 11:20 AM EST Consult [facility] [address] [place] [id number] Jose Pan, DO [address] [place] [address] Arrived [facility] Comment on above: Arrived Start: 02-15-2024 End: 02-15-2024 Patient encounter procedure [facility] Comment on above: Arrived Start: 02-03-2024 End: 02-03-2024 Professional / ancillary services management 02/03/2024 10:30 AM EDT Ancillary Procedure [facility] [address] [place] [address] [facility] Start: 01-27-2024 End: 01-27-2024 Patient encounter procedure [facility] Comment on above: Arrived Start: 01-20-2024 End: 01-20-2024 Professional / ancillary services management 01/20/2024 8:30 AM EDT Ancillary Procedure [facility] [address] [place] [address] [facility] Start: 01-11-2024 End: 01-10-2025 SURESWAB(R) ADVANCED VAGINITIS PLUS, TMA SURESWAB(R) ADVANCED VAGINITIS PLUS, TMA Pathology and Cytology Routine Pelvic pain in female Expected: 01/11/2024 (Approximate), Expires: 01/10/2025 [facility] Work Phone: Comment on above: Expected: 01/11/2024 (Approximate), Expires: 01/10/2025 Start: 01-11-2024 End: 01-10-2025 US for US PELVIS-TRANSVAG IF INDICATED Imaging Routine Pelvic pain in female Expected: 01/11/2024 (Approximate), Expires: 01/10/2025 [facility] Comment on above: Expected: 01/11/2024 (Approximate), Expires: 01/10/2025 Start: 12-13-2023 Influenza vaccination Influenza Vacc ine (#1) [facility] Start: 06-27-2021 End: 06-27-2021 Patient encounter procedure 06/27/2021 Office Visit Urology Jason Fabian, IMAGERY ANALYST - ENAMEL DIPPER [address] [place] [address] [facility] Start: 06-19-2021 End: 06-19-2021 Patient encounter procedure 06/19/2021 Appointment Radiology [facility] Start: 03-04-2021 COVID-19 Vaccine (3 - Booster for Pfizer series) COVID-19 Vaccine (3 - Booster for Pfizer series) [facility] Start: 12-12-2020 Influenza vaccination Flu vaccine (# 1) [facility] Start: 2018 Screening for malign ant neoplasm of cervix Pap smear [facility] Start: 2013 Screening for Chlamy stan trachomatis Chlamydia screen [facility] Start: 02-11-2012 HIV screening HIV screen [facility] Start: 2009 Depression Screen Depression Screen [facility] Start: 2003 Pneumococcal 0-64 ye ars Vaccine (1 of 2 - PPSV23) Pneumococcal 0-64 years Vaccine (1 of 2 - PPSV23) [facility] Start: 1998 Varicella vaccine (1 of 2 - 2-dose childhood series) Varicella vaccine (1 of 2 - 2-dose childhood series) [facility] Start: 1997 Hepatitis C screening Hepatitis C sc reen [facility] Bacteria identified in Urine by Culture Urine culture Microbiology Routine Pelvic pain in female Ordered: 01/11/2024 [facility] Comment on above: Ordered: 01/11/2024 CHLAMYDIA TRACHOMATI S (GENITO/STI) CHLAMYDIA TRACHOMATIS (GENITO/STI) Lab Routine Vaginal odor Ordered: 02/15/2024 [facility] Comment on above: Ordered: 02/15/2024 CHLAMYDIA TRACHOMATI S (GENITO/STI) CHLAMYDIA TRACHOMATIS (GENITO/STI) Lab Routine Pelvic pain in female Ordered: 01/11/2024 [facility] Comment on above: Ordered: 01/11/2024 CHLAMYDIA TRACHOMATI S (GENITO/STI) CHLAMYDIA TRACHOMATIS (GENITO/STI) Lab Routine Vaginal discharge Vaginal burning Ordered: 05/23/2024 [facility] Comment on above: Ordered: 05/23/2024 End: 06-12-2021 Culture, Urine [facility] Work Phone: Comment on above: 1 Occurrences starti ng 06/12/2021 until 06/12/2021 Cytology Cervical or vaginal smear or scraping study Pap Smear Pathology and Cytology Routine Well woman exam with routine gynecological exam Ordered: 01/27/2024 [facility] Work Phone: Comment on above: Ordered: 01/27/2024 Neisseria gonorrhoea e DNA [Presence] in Unspecified specimen by REKHA with probe detection Neisseria gonorrhea DNA probe, direct Lab Routine Vaginal odor Ordered: 02/15/2024 [facility] Comment on above: Ordered: 02/15/2024 Neisseria gonorrhoea e DNA [Presence] in Unspecified specimen by REKHA with probe detection Neisseria gonorrhea DNA probe, direct Lab Routine Pelvic pain in female Ordered: 01/11/2024 [facility] Comment on above: Ordered: 01/11/2024 Neisseria gonorrhoea e DNA [Presence] in Unspecified specimen by REKHA with probe detection Neisseria gonorrhea DNA probe, direct Lab Routine Vaginal discharge Vaginal burning Ordered: 05/23/2024 [facility] Comment on above: Ordered: 05/23/2024 SURESWAB(R) ADVANCED VAGINITIS PLUS, TMA SURESWAB(R) ADVANCED VAGINITIS PLUS, TMA Pathology and Cytology Routine Bacterial vaginosis Vaginal odor Ordered: 02/15/2024 [facility] Work Phone: Comment on above: Ordered: 02/15/2024 SURESWAB(R) ADVANCED VAGINITIS PLUS, TMA SURESWAB(R) ADVANCED VAGINITIS PLUS, TMA Pathology and Cytology Routine Vaginal discharge Vaginal burning Ordered: 05/23/2024 [facility] Work Phone: Comment on above: Ordered: 05/23/2024 Immunizations Immunization Date Immunization Notes Care Provider [facility] 06-24-2020 diphtheria, tetanus toxoids and pertussis vaccine Jose Maxim DO Work Phone: [facility] 06-04-2010 human papilloma viru s vaccine, quadrivalent Jose Maxim DO Work Phone: [facility] 02-05-2010 human papilloma viru s vaccine, quadrivalent Jose Maxim DO Work Phone: [facility] 11-26-2009 human papilloma viru s vaccine, quadrivalent Jose Maxim DO Work Phone: [facility] 11-26-2009 tetanus toxoid, redu riky diphtheria toxoid, and acellular pertussis vaccine, adsorbed Jose Maxim DO Work Phone: [facility] 10-27-2002 diphtheria, tetanus toxoids and acellular pertussis vaccine, unspecified formulation Jose Maxim DO Work Phone: [facility] Work Phone: 10-27-2002 measles, mumps and rubella virus vaccine Jose Maxim DO Work Phone: [facility] 10-27-2002 poliovirus vaccine, inactivated Jose Maxim DO Work Phone: [facility] 05-15-1998 diphtheria, tetanus toxoids and acellular pertussis vaccine, unspecified formulation Jose Maxim DO Work Phone: [facility] 05-15-1998 haemophilus influenz ae type b vaccine, PRP-T conjugate Jose Maxim DO Work Phone: [facility] 05-15-1998 measles, mumps and rubella virus vaccine Jose Maxim DO Work Phone: [facility] 05-15-1998 poliovirus vaccine, inactivated Jose Maxim DO Work Phone: [facility] 1997 diphtheria, tetanus toxoids and acellular pertussis vaccine, unspecified formulation Jose Maxim DO Work Phone: [facility] 1997 haemophilus influenz ae type b conjugate and Hepatitis B vaccine Jose Maxim DO Work Phone: [facility] 1997 diphtheria, tetanus toxoids and acellular pertussis vaccine, unspecified formulation Jose Maxim DO Work Phone: [facility] 1997 haemophilus influenz ae type b vaccine, conjugate unspecified formulation Jose Maxim DO Work Phone: [facility] 1997 poliovirus vaccine, inactivated Jose Maxim DO Work Phone: [facility] 1997 diphtheria, tetanus toxoids and acellular pertussis vaccine, unspecified formulation Jose Maxim DO Work Phone: [facility] 1997 haemophilus influenz ae type b vaccine, conjugate unspecified formulation Jose Maxim DO Work Phone: [facility] 1997 hepatitis B vaccine, pediatric or pediatric/adolescent dosage Jose Maxim DO Work Phone: [facility] 1997 poliovirus vaccine, inactivated Jose Maxim DO Work Phone: [facility] 1997 hepatitis B vaccine, pediatric or pediatric/adolescent dosage Jose Maxim DO Work Phone: [facility] Healthcare Payers Date Payer Category Payer [facility] BCBS [id number] 2023 [id number]-Present [phone] [address] [place] [address] [id number] 2020 Medicaid [employer] [place] [id number] 2020-Present [address] [place] [address] [id number] 2020 Medicaid (Managed Care) [employer] [id number] 2020 Unknown [id number] 1997 Unknown [id number] 2.16.840.1.507803.3.579.2.1 73 1997 Unknown [id number] 2.16.840.1.214880.3.579.2.1 73 1997 Unknown [id number] 2.16.840.1.622347.3.579.2.1 73 1997 Unknown [id number] 2.16.840.1.961088.3.579.2.1 73 1997 Unknown [id number] 2.16.840.1.556301.3.579.2.5 93 1997 Unknown [id number] 2.16.840.1.722644.3.579.2.5 93 1997 Unknown [id number] 2.16.840.1.255792.3.579.2.1 75 1997 Unknown [id number] 2.16.840.1.686903.3.579.2.7 27 1997 Unknown [id number] 2.16.840.1.505917.3.579.2.7 27 1997 Unknown [id number] 2.16.840.1.540807.3.579.2.7 27 1997 Unknown [id number] 2.16.840.1.788718.3.579.2.7 27 1997 Unknown [id number] 2.16.840.1.006043.3.579.2.7 27 1997 Unknown [id number] 2.16.840.1.794385.3.579.2.1 259 1997 Unknown [id number] 2.16.840.1.372035.3.579.2.1 259 1997 Unknown [id number] 2.16.840.1.582614.3.579.2.1 259 1997 Unknown [id number] 2.16.840.1.600534.3.579.2.1 259 1997 Unknown [id number] 2.16.840.1.081642.3.579.2.1 259 1997 Unknown [id number] 2.16.840.1.456494.3.579.2.1 259 1997 Unknown [id number] 2.16.840.1.687785.3.579.2.1 259 1997 Unknown [id number] 2.16.840.1.705526.3.579.2.1 259 1997 Unknown [id number] 2.16.840.1.445636.3.579.2.1 259 1997 Unknown [id number] 2.16.840.1.524830.3.579.2.1 259 1997 Unknown [id number] 2.16.840.1.840859.3.579.2.1 259 1997 Unknown [id number] 2.16.840.1.925165.3.579.2.1 259 1959 Unknown [id number] 1.2.840.731548.1.13.239.2.7 .[id number] 1959 Unknown [id number] [id number] .[id number] 1959 Unknown [id number] Social History Date Type Detail Facility Start: 06-12-2021 End: 11-16-2023 Tobacco smoking status AKIS Ex-smoker [facility] History of tobacco use Cigarette Smoker [facility] [place] Phone: Start: 06-12-2021 End: 09-24-2023 Cigarettes smoked current (pack per day) - Reported 0.25 [facility] Start: 06-12-2021 End: 11-16-2023 Tobacco use and exposure Smokeless tobacco non-user [employer] Phone: Start: 06-12-2021 Alcohol intake Current non-drinker of alcohol (finding) [employer] Phone: Start: 1995 Sex Assigned At Not on file [employer] Phone: History of tobacco use Current smoker [facility] Start: 01-11-2024 End: 04-20-2024 Alcoholic beverage intake Lifetime non-drinker (finding) [facility] Start: 09-24-2023 End: 11-16-2023 [id number] Health Literacy [facility] How often do you nee d to have someone help you when you read instructions, pamphlets, or other written material from your doctor or pharmacy [SILS] Never [facility] Do you belong to any clubs or organizations such as latter day groups, unions, fraternal or athletic groups, or [...] 03-01-2024 Functional Status N/A [facility] Clinical Notes 01-11-2024 to 05-23-2024 ALISA Coyle - 05/23/2024 8:40 AM Malou Mcintosh LPN - 04/20/2024 2:00 PM Malou Mcintosh LPN - 03/09/2024 11:20 AM ESTSusan Юлияr, INVESTMENT SALES ASSISTANT - 02/15/2024 11:00 AM EST Note Date & Type Note Facility 05-23-2024 History of Present illness Narrative Reason for Appointment: Patient ID: Sarah Belcher is a 29 y.o. female who presents for BV and Cultures Patient presents today for STD Check. MEDICATIONS Current Outpatient Medications Medication Instructions co-enzyme Q-10 30 mg, Oral, Daily Multiple Vitamin (multivitamin) tablet 1 tablet, Oral, Daily ALLERGIES Allergies Allergen Reactions Bacitracin-Polymyxin B Other Reaction(s): Unknown Escitalopram Other groggy Other Reaction(s): Sleepy Buspar [Buspirone] Anxiety Caused heart palpitations and increased anxiety PROBLEMS Active Ambulatory Problems Diagnosis Date Noted Adjustment disorder with mixed anxiety and depressed mood ([facility]) 09/06/2022 Amenorrhea 09/06/2022 Anxiety 09/06/2022 Bipolar affective disorder, currently depressed, moderate ([facility]) 09/06/2022 Complication of intrauterine device (IUD) ([facility]) 09/06/2022 Inattention 09/06/2022 Irregular menses 09/06/2022 Irritable bowel syndrome with diarrhea 09/06/2022 Menstrual cramp 09/06/2022 Pain in pelvis 09/06/2022 Generalized anxiety disorder ([facility]) 09/06/2022 Post-traumatic stress disorder ([facility]) 09/06/2022 Slow transit constipation 09/06/2022 Anxiety during 03/26/2020 Depression affecting ([facility]) 03/26/2020 History of chlamydia 03/26/2020 Bacterial infection due to mycoplasma 02/15/2024 Vaginal odor 02/15/2024 Urinary tract infection without hematuria 02/15/2024 Bacterial vaginosis 02/15/2024 Resolved Ambulatory Problems Diagnosis Date Noted No Resolved Ambulatory Problems Past Medical History: Diagnosis Date ADHD (attention deficit hyperactivity disorder) ([facility]) Bipolar disorder (manic depression) ([facility]) BMI 24.0-24.9, adult Chicken pox 2007 Headache IBS (irritable bowel syndrome) Intrauterine device surveillance Pelvic pain Urinary tract infection HISTORY PAST MEDICAL HISTORY SOCIAL HISTORY Past Medical History: Diagnosis Date ADHD (attention deficit hyperactivity disorder) ([facility]) Adjustment disorder with mixed anxiety and depressed mood ([facility]) Amenorrhea Anxiety Bipolar disorder (manic depression) ([facility]) BMI 24.0-24.9, adult Chicken pox 2008 Complication of intrauterine device (IUD) ([facility]) Headache IBS (irritable bowel syndrome) IBS with [...] HISTORY Past Surgical History: Procedure Laterality Date LAPAROSCOPY DIAGNOSTIC / BIOPSY / ASPIRATION / LYSIS 04/01/2024 LITHOTRIPSY 2014 kidney stones/lithotrypsy PAP SMEAR 05/21/2021 negative WISDOM TOOTH EXTRACTION 2015 [place] teeth REVIEW OF SYSTEMS Review of Systems: Review of Systems Constitutional: Negative. HENT: Negative. Eyes: Negative. Respiratory: Negative. Cardiovascular: Negative. Gastrointestinal: Negative. Genitourinary: Negative. Musculoskeletal: Negative. Skin: Negative. Neurological: Negative. All other systems reviewed and are negative. Hematological: Negative. Endocrine: Negative. Allergic/Immunologic: Negative. OBJECTIVE Objective: Physical Exam Constitutional: Appearance: Normal appearance. She is normal weight. HENT: Head: Normocephalic. Cardiovascular: Rate and Rhythm: Normal rate. Pulses: Normal pulses. Pulmonary: Effort: Pulmonary effort is normal. Breath sounds: Normal breath sounds. Abdominal: Palpations: Abdomen is soft. Musculoskeletal: General: Normal range of motion. Neurological: General: No focal deficit present. Mental Status: She is alert and oriented to person, place, and time. Psychiatric: Mood and Affect: Mood normal. Behavior: Behavior normal. Thought Content: Thought content normal. Judgment: Judgment normal. Vitals and nursing note reviewed. Vitals: Estimated body mass index is 22.57 kg/m as calculated from the following: Height as of 10/21/23: 5' 7 . Weight as of this encounter: 144 lb 1.9 oz. BP: 118/74 No LMP recorded. ASSESSMENT & PLAN ICD-10-CM 1. Vaginal discharge N89.8 SURESWAB(R) ADVANCED VAGINITIS PLUS, TMA CHLAMYDIA TRACHOMATIS (GENITO/STI) Neisseria gonorrhea DNA probe, direct 2. Vaginal burning N94.89 SURESWAB(R) ADVANCED VAGINITIS PLUS, TMA CHLAMYDIA TRACHOMATIS (GENITO/STI) Neisseria gonorrhea DNA probe, direct Patient presents for recurrent BV. Patient states she has had multiple treatments, including treatment for mycoplasma in past to help treat Bv. Previous cultures positive for BV only. Culutres obtained and we will send in script for nuvessa Documented by Ameena Booker MA on behalf of: ALISA Coyle documented in this encounter [facility] 04-20-2024 History of Present illness Narrative Reason for Appointment: Patient ID: Sarah Belcher is a 29 y.o. female who presents for Post-op Visit Patient presents today for 2 Week Post Op Follow Up appointment. MEDICATIONS Current Outpatient Medications Medication Instructions Multiple Vitamin (multivitamin) tablet 1 tablet, Oral, Daily ALLERGIES Allergies Allergen Reactions Bacitracin-Polymyxin B Other Reaction(s): Unknown Escitalopram Other groggy Other Reaction(s): Sleepy Buspar [Buspirone] Anxiety Caused heart palpitations and increased anxiety PROBLEMS Active Ambulatory Problems Diagnosis Date Noted Adjustment disorder with mixed anxiety and depressed mood ([facility]) 09/06/2022 Amenorrhea 09/06/2022 Anxiety 09/06/2022 Bipolar affective disorder, currently depressed, moderate ([facility]) 09/06/2022 Complication of intrauterine device (IUD) ([facility]) 09/06/2022 Inattention 09/06/2022 Irregular menses 09/06/2022 Irritable bowel syndrome with diarrhea 09/06/2022 Menstrual cramp 09/06/2022 Pain in pelvis 09/06/2022 Generalized anxiety disorder (CMS/HCC) 09/06/2022 Post-traumatic stress disorder ([facility]) 09/06/2022 Slow transit constipation 09/06/2022 Anxiety during 03/26/2020 Depression affecting ([facility] 03/26/2020 History of chlamydia 03/26/2020 Bacterial infection due to mycoplasma 02/15/2024 Vaginal odor 02/15/2024 Urinary tract infection without hematuria 02/15/2024 Bacterial vaginosis 02/15/2024 Resolved Ambulatory Problems Diagnosis Date Noted No Resolved Ambulatory Problems Past Medical History: Diagnosis Date ADHD (attention deficit hyperactivity disorder) ([facility]) Bipolar disorder (manic depression) ([facility]) BMI 24.0-24.9, adult Chicken pox 2007 Headache IBS (irritable bowel syndrome) Intrauterine device surveillance Pelvic pain Urinary tract infection HISTORY PAST MEDICAL HISTORY SOCIAL HISTORY Past Medical History: Diagnosis Date ADHD (attention deficit hyperactivity disorder) ([facility]) Adjustment disorder with mixed anxiety and depressed mood ([facility]) Amenorrhea Anxiety Bipolar disorder (manic depression) ([facility]) BMI 24.0-24.9, adult Chicken pox 2007 Complication of intrauterine device (IUD) ([facility]) Headache IBS (irritable bowel syndrome) IBS with [...] HISTORY Past Surgical History: Procedure Laterality Date LAPAROSCOPY DIAGNOSTIC / BIOPSY / ASPIRATION / LYSIS 04/01/2024 LITHOTRIPSY 2015 kidney stones/lithotrypsy PAP SMEAR 05/21/2021 negative WISDOM TOOTH EXTRACTION 2015 [place] teeth REVIEW OF SYSTEMS Review of Systems: [...] nursing note reviewed. Exam conducted with a chief meter reader present. Vitals: Estimated body mass index is 22.57 kg/m as calculated from the following: Height as of 10/21/23: 5' 7 . Weight as of this encounter: 144 lb 1.9 oz. BP: 106/68 Patient's last menstrual period was 04/19/2024. ASSESSMENT & PLAN ICD-10-CM 1. Postoperative examination Z09 Pt presents for postop visit - dx lap- surgery discussed with pt in detail. Incisions healing well with no signs and symptoms of infection. Pt to return for annual unless needed sooner? Documented by Ana Mcintosh LPN on behalf of: Jose Pan DO documented in this encounter [facility] 03-29-2024 Note Urology Office/Clini c Note Chief Complaint referral HPI Staff 29 year old female referred by Dr. Pan for recurrent UTI. Pt. states she does have a H/O kidney stones. Pt. states last kidney stone was 2013 and had Lithotripsy done UA micro/UA with reflex culture 09/22/23 renal US 06/20/21 KUB 06/19/21 Urine culture 06/12/21 Dysuria: occasionally Incomplete bladder emptying: no Hematuria: Pt. states September 21 she had gross hematuria. Pt. states she was in [place] [facility] for cystitis Frequency: 2-3 hours Urgency: yes Nocturia: no Stream: good stream Post void dripping: no Wearing pads/ Depends: no Urge incontinence: no Stress incontinence: occasionally, Incontinence without Sensory Awareness: no Abdominal pain: Pt. states in the morning she will have lower abd pain, once she voids she still will have some discomfort for a while Flank pain: occasionally bilateral History of Present Illness I have reviewed and verified the staff HPI to be accurate for this encounter. Portions of this record may have been created with voice recognition artificial intelligence software, specifically [employer], [employer] and or [employer]. Substitutions may have occurred due to the inherent limitations of voice recognition and artificial intelligence software. Review of Systems PHQ Score Initial Depression Screen Score: 0 SCORE Physical Exam Vitals & Measurements HR: 79(Peripheral) RR: 19 BP: 102/66 HT: 69 in HT: 174 cm WT: 63 kg WT: 138.891 lb BMI: 20.81 General: Well developed, well nourished, in no acute distress. Genitourinary: Flank Pain: none. Bladder: nonpalpable. Assessment/Plan BBS 14 1. Gross hematuria (R31.0: Gross hematuria) Gross hematuria, frequency, urgency, dysuria, low back pain UCX 09/22/2023 negative Treated with Macrobid twice daily x 7 days Does not recall stone passing, but states she felt pretty bad and could have been stone episode Per external pharmacy review patient also had Bactrim DS twice daily x 3 days in July See #2 UA today w/ trace intact blood, no signs of infection. Denies UTI sxs at this time. Denies any recurrence of gross hem since that episode. 2. Bladder pain (R39.89: Other symptoms and signs involving the genitourinary system) Pelvic pain x 6 months, increasing in severity Pelvic ultrasound 02/03/2024 negative Is having workup w/ OBGYN regarding poss endometriosis dx May be PLATINUM AND PALLADIUM KETTLE TENDER source of pain Does not necessarily improve w/ abx treatment PVR today 0 3. Kidney stones (N20.0: Calculus of kidney) hx of lithotripsy about 2013 Denies any know stone event since R US 06/20/21 with nonobstructing left renal stones measuring up to 5 mm KUB 06/19/2021 negative Discussed imagine w/ pt. Would like to update as unclear if recent gross hem episode could have been stone event? Pt agrees. Discussed generalized stone prevention - pt encouraged to increase fluid intake so that he/she producing 2.5L of urine daily. Add 1/4 cup of lemon juice to water throughout the day or can also drink sugar free lemonade or clear soda. Avoid dark dakota. Restrict sodium intake. Restrict animal protein. -KUB/ MARCIA at [facility], call pt w/ results Orders: cephalexin, 500 mg = 1 cap(s), Oral, BID, X 7 day(s), # 14 cap(s), Refills(s) 0, Pharmacy: [id number], 174, cm, 03/01/24 10:48:00 EST, Height/Length Dosing, 63, kg, 03/01/24 10:48:00 EST, Weight Dosing Follow-up No qualifying data available Problem List/Past Medical History Ongoing Adjustment disorder with mixed anxiety and depressed mood Amenorrhea Anxiety Bipolar affective disorder, currently depressed, moderate Bladder pain Generalized anxiety disorder Gross hematuria H/O chlamydia infection Inattention Irregular menses Irritable bowel syndrome with diarrhea Kidney stone Kidney stones Pain in pelvis Post-traumatic stress disorder Slow transit constipation Historical No qualifying data Procedure/Surgical History Lithotripsy (2014). Medications cephalexin 500 mg Cap, 500 mg= 1 cap(s), Oral, BID Allergies Bacitracin-Polymyxin (Unknown) BuSpar (Anxiety) Lexapro (Sleepy) Social History Alcohol Never., 03/01/2024 Substance Abuse Never., 03/01/2024 Tobacco Former smoker, quit more than 30 days ago Tobacco Use:., 03/01/2024 Family History Cancer: Mother. Mental illness: Mother. Primary malignant neoplasm of female breast: Grandparent. [facility] Comment on above: Result Comment: Elec tronically Signed By: SRUTHI Yu APRN, Bonita Reynolds\.br\Date and Time Signed: 03/29/24 10:28 EST 03-21-2024 Evaluation + Plan note Diagnostic Tests PendingUrine Culture 03/21/24 [facility] 03-09-2024 History of Present illness Narrative Reason for Appointment: Patient ID: Sarah Belcher is a 29 y.o. female who presents for Pre-op Visit Patient presents today for Pre Op appointment. Patient is scheduled to undergo Da Neha assisted Diagnostic Laparoscopy, possible ZAHRA, possible FOE, possible BSO on 04/01/[address] Pan at [facility]. MEDICATIONS Current Outpatient Medications Medication Instructions azithromycin (Zithromax) 500 MG tablet Day 1: Take 2 tablets PO onetime dose; Day 2,3,4: Take 1 tablet daily ALLERGIES Allergies Allergen Reactions Bacitracin-Polymyxin B Other Reaction(s): Unknown Lexapro [Escitalopram] Other groggy Buspar [Buspirone] Anxiety Caused heart palpitations and increased anxiety PROBLEMS Active Ambulatory Problems Diagnosis Date Noted Adjustment disorder with mixed anxiety and depressed mood ([facility]) 09/06/2022 Amenorrhea 09/06/2022 Anxiety 09/06/2022 Bipolar affective disorder, currently depressed, moderate ([facility]) 09/06/2022 Complication of intrauterine device (IUD) ([facility]) 09/06/2022 Inattention 09/06/2022 Irregular menses 09/06/2022 Irritable bowel syndrome with diarrhea 09/06/2022 Menstrual cramp 09/06/2022 Pain in pelvis 09/06/2022 Generalized anxiety disorder ([facility]) 09/06/2022 Post-traumatic stress disorder ([facility]) 09/06/2022 Slow transit constipation 09/06/2022 Anxiety during 03/26/2020 Depression affecting ([facility]) 03/26/2020 History of chlamydia 03/26/2020 Bacterial infection due to mycoplasma 02/15/2024 Vaginal odor 02/15/2024 Urinary tract infection without hematuria 02/15/2024 Bacterial vaginosis 02/15/2024 Resolved Ambulatory Problems Diagnosis Date Noted No Resolved Ambulatory Problems Past Medical History: Diagnosis Date ADHD (attention deficit hyperactivity disorder) ([facility]) Bipolar disorder (manic depression) ([facility]) BMI 24.0-24.9, adult Chicken pox 2007 Headache IBS (irritable bowel syndrome) Intrauterine device surveillance Pelvic pain Urinary tract infection HISTORY PAST MEDICAL HISTORY SOCIAL HISTORY Past Medical History: Diagnosis Date ADHD (attention deficit hyperactivity disorder) ([facility]) Adjustment disorder with mixed anxiety and depressed mood ([facility]) Amenorrhea Anxiety Bipolar disorder (manic depression) ([facility]) BMI 24.0-24.9, adult Chicken pox 2008 Complication of intrauterine device (IUD) ([facility]) Headache IBS (irritable bowel syndrome) IBS with [...] SMEAR 05/21/2021 negative WISDOM TOOTH EXTRACTION 2015 [place] teeth REVIEW OF SYSTEMS Review of Systems: [...] nursing note reviewed. Exam conducted with a chief meter reader present. Vitals: Estimated body mass index is [...] reviewed, and patient is to proceed to [facility] OR. Pt has vaginal discharge and recurrent bv- rx for xaciato and metrogel faxed to pharmacy. Follow Up: Patient is to follow up between 1-2 weeks post operative to assess proper healing and recovery from procedure. Documented by Ana Mcintosh LPN on behalf of: Jose Pan DO documented in this encounter [facility] 02-15-2024 History of Present illness Narrative Reason for Appointment: Patient ID: Sarah Belcher is a 29 y.o. female who [...] disorder with mixed anxiety and depressed mood ([facility]) 09/06/2022 Amenorrhea 09/06/2022 Anxiety 09/06/2022 Bipolar affective disorder, currently depressed, moderate ([facility]) 09/06/2022 Complication of intrauterine device (IUD) ([facility]) 09/06/2022 Inattention 09/06/2022 Irregular menses 09/06/2022 Irritable bowel syndrome with diarrhea 09/06/2022 Menstrual cramp 09/06/2022 Pain in pelvis 09/06/2022 Generalized anxiety disorder ([facility]) 09/06/2022 Post-traumatic stress disorder ([facility]) 09/06/2022 Slow transit constipation 09/06/2022 Anxiety during 03/26/2020 Depression affecting ([facility]) 03/26/2020 History of chlamydia 03/26/2020 Resolved Ambulatory Problems Diagnosis Date Noted No Resolved Ambulatory Problems Past Medical History: Diagnosis Date ADHD (attention deficit hyperactivity disorder) [place] Bipolar disorder (manic depression) ([facility] BMI 24.0-24.9, adult Chicken pox 2007 Headache IBS (irritable bowel syndrome) Intrauterine device surveillance Pelvic pain Urinary tract infection HISTORY PAST MEDICAL HISTORY SOCIAL HISTORY Past Medical History: Diagnosis Date ADHD (attention deficit hyperactivity disorder) ([facility] Adjustment disorder with mixed anxiety and depressed mood ([facility]) Amenorrhea Anxiety Bipolar disorder (manic depression) ([facility] BMI 24.0-24.9, adult Chicken pox 2008 Complication of intrauterine device (IUD) ([facility] Headache IBS (irritable bowel syndrome) IBS with [...] SMEAR 05/21/2021 negative WISDOM TOOTH EXTRACTION 2015 [place] teeth REVIEW OF SYSTEMS Review of Systems: [...] nursing note reviewed. Exam conducted with a chief meter reader present. Vitals: Estimated body mass index is [...] a referral to Urology. Patient aware that [facility] [employer] will reach out to her to sent up surgery date for Dx Lap as well. Patient aware of referral process. Documented by Estela Phipps LPN on behalf of: Jose Pan DO documented in this encounter [facility] 01-27-2024 History of Present illness Narrative Reason for Appointment: Patient ID: Sarah Belcher is a 28 y.o. female who [...] disorder with mixed anxiety and depressed mood ([facility]) 09/06/2022 Amenorrhea 09/06/2022 Anxiety 09/06/2022 Bipolar affective disorder, currently depressed, moderate ([facility]) 09/06/2022 Complication of intrauterine device (IUD) ([facility]) 09/06/2022 Inattention 09/06/2022 Irregular menses 09/06/2022 Irritable bowel syndrome with diarrhea 09/06/2022 Menstrual cramp 09/06/2022 Pain in pelvis 09/06/2022 Generalized anxiety disorder ([facility]) 09/06/2022 Post-traumatic stress disorder ([facility]) 09/06/2022 Slow transit constipation 09/06/2022 Anxiety during 03/26/2020 Depression affecting ([facility]) 03/26/2020 History of chlamydia 03/26/2020 Resolved Ambulatory Problems Diagnosis Date Noted No Resolved Ambulatory Problems Past Medical History: Diagnosis Date ADHD (attention deficit hyperactivity disorder) ([facility]) Bipolar disorder (manic depression) ([facility] BMI 24.0-24.9, adult Chicken pox 2008 Headache IBS (irritable bowel syndrome) Intrauterine device surveillance Pelvic pain Urinary tract infection HISTORY PAST MEDICAL HISTORY SOCIAL HISTORY Past Medical History: Diagnosis Date ADHD (attention deficit hyperactivity disorder) ([facility] Adjustment disorder with mixed anxiety and depressed mood ([facility]) Amenorrhea Anxiety Bipolar disorder (manic depression) ([facility] BMI 24.0-24.9, adult Chicken pox 2008 Complication of intrauterine device (IUD) ([facility] Headache IBS (irritable bowel syndrome) IBS with [...] SMEAR 05/21/2021 negative WISDOM TOOTH EXTRACTION 2015 [place] teeth REVIEW OF SYSTEMS Review of Systems: [...] nursing note reviewed. Exam conducted with a chief meter reader present. Vitals: Estimated body mass index is [...] of: ALISA Coyle documented in this encounter [facility] 01-11-2024 History of Present illness Narrative Reason for Appointment: Patient ID: Sarah Belcher is a 28 y.o. female who presents for pelvic pressure Patient presents today for Consult appointment. MEDICATIONS No current outpatient medications ALLERGIES Allergies Allergen Reactions Bacitracin-Polymyxin B Other Reaction(s): Unknown Lexapro [Escitalopram] Other groggy Buspar [Buspirone] Anxiety Caused heart palpitations and increased anxiety PROBLEMS Active Ambulatory Problems Diagnosis Date Noted Adjustment disorder with mixed anxiety and depressed mood ([facility]) 09/06/2022 Amenorrhea 09/06/2022 Anxiety 09/06/2022 Bipolar affective disorder, currently depressed, moderate ([facility]) 09/06/2022 Complication of intrauterine device (IUD) ([facility]) 09/06/2022 Inattention 09/06/2022 Irregular menses 09/06/2022 Irritable bowel syndrome with diarrhea 09/06/2022 Menstrual cramp 09/06/2022 Pain in pelvis 09/06/2022 Generalized anxiety disorder ([facility]) 09/06/2022 Post-traumatic stress disorder ([facility]) 09/06/2022 Slow transit constipation 09/06/2022 Anxiety during 03/26/2020 Depression affecting ([facility] 03/26/2020 History of chlamydia 03/26/2020 Resolved Ambulatory Problems Diagnosis Date Noted No Resolved Ambulatory Problems Past Medical History: Diagnosis Date ADHD (attention deficit hyperactivity disorder) ([facility] Bipolar disorder (manic depression) ([facility] BMI 24.0-24.9, adult Chicken pox 2007 Headache IBS (irritable bowel syndrome) Intrauterine device surveillance Pelvic pain Urinary tract infection HISTORY PAST MEDICAL HISTORY SOCIAL HISTORY Past Medical History: Diagnosis Date ADHD (attention deficit hyperactivity disorder) ([facility] Adjustment disorder with mixed anxiety and depressed mood ([facility]) Amenorrhea Anxiety Bipolar disorder (manic depression) ([facility] BMI 24.0-24.9, adult Chicken pox 2007 Complication of intrauterine device (IUD) ([facility] Headache IBS (irritable bowel syndrome) IBS with [...] SMEAR 05/21/2021 negative WISDOM TOOTH EXTRACTION 2015 [place] teeth REVIEW OF SYSTEMS Review of Systems: [...] nursing note reviewed. Exam conducted with a chief meter reader present. Vitals: Estimated body mass index is [...] by Estela Phipps LPN on behalf of: Jose Pan DO documented in this encounter [facility] Evaluation + Plan note No data available for this section [facility] Evaluation note Diagnosis Ureteral stone with hydronephrosis Calculus of ureter Suprapubic pain Abdominal pain, other specified site Dysuria Urgency of urination documented in this encounter [employer] Phone: evaluation note* Diagnosis Ureteral stone with hydronephrosis Calculus of ureter documented in this encounter [employer] Phone: evaluation note* Diagnosis Ureteral stone with hydronephrosis Calculus of ureter Suprapubic pain Abdominal pain, other specified site Dysuria Urgency of urination documented in this encounter [employer] Phone: evaluation note* Diagnosis Well woman exam with routine gynecological exam Routine gynecological examination documented in this encounter [facility] HealthcareEvaluation note* Diagnosis Bacterial vaginosis Unspecified vaginitis and vulvovaginitis Urinary tract infection without hematuria, site unspecified Vaginal odor Unspecified symptom associated with female genital organs Bacterial infection due to mycoplasma documented in this encounter [facility] note* Diagnosis Pre-op evaluation Pelvic pain in female Unspecified symptom associated with female genital organs Bacterial vaginosis Unspecified vaginitis and vulvovaginitis documented in this encounter [facility] note* Diagnosis Pelvic pain in female Unspecified symptom associated with female genital organs documented in this encounter [facility]* Diagnosis Postoperative examination Follow-up examination, following unspecified surgery documented in this encounter [facility]* Diagnosis Vaginal discharge Leukorrhea, not specified as infective Vaginal burning Other specified symptom associated with female genital organs documented in this encounter [facility] Discharge instructions No data available for this section [facility] [employer] progress note No data available for this section [facility] [employer] Advance Directives No Advanced Directives Records FoundDocuments on File Type Date Recorded Patient Major Assembler Expl anation ACP-Advance Directive ACP-Power of Log Inspector Latest Code Status on File Code Status Date Activated Date Inactivated Comments Full Code 03/28/2014 9:49 AM 03/28/2014 5:17 PM Documents on File Type Date Recorded Patient Major Assembler Expl anation ACP-Advance Directive ACP-Power of Log Inspector Latest Code Status on File Code Status Date Activated Date Inactivated Comments Full Code 03/28/2014 9:49 AM 03/28/2014 5:17 PM Reason for Referral Specialty Diagnoses / Procedures Referred By Contac t Referred To Contact Radiology Diagnoses Ureteral stone with hydronephrosis Suprapubic pain Dysuria Urgency of urination Procedures US RENAL COMPLETE Jason Fabian, IMAGERY ANALYST - ENAMEL DIPPER [address] [facility] [address] [place] [address] Referral ID Status Reason Start Date Expiration Date Visits Re quested Visits Authorized [id number] Closed 06/12/2021 06/12/2022 1 1 Summary Purpose [...] Care Teams (unrecognized sec tion and content) Teacher Lip Reading Relationship Specialty Start Date End Date Sri Ramírez MD [address] [place] [address] PCP - General 07/20/13 Teacher Lip Reading Relationship Specialty Start Date End Date Sri Ramírez MD [address] [place] [address] PCP - General 07/20/13 Teacher Lip Reading Relationship Specialty Start Date End Date Sri Ramírez MD [address] [place] [address] PCP - General 07/20/13 Teacher Lip Reading Relationship Specialty Start Date End Date Sri Ramírez MD [address] [place] [address] PCP - General 07/20/13 Teacher Lip Reading Relationship Specialty Start Date End Date Sri Ramírez MD [facility] [place] [address] PCP - General Family Medicine 09/19/22 Elvie Barahona, IMAGERY ANALYST-PERFORMANCE IMPROVEMENT CONSULTANT [address] [facility] [address] [place] [address] PCP - [place] [employer] 09/12/23 Kayla Kahn DO [address] [place] [address] Referring Physician 09/19/22 Teacher Lip Reading Relationship Specialty Start Date End Date Sri Ramírez MD [address] [place] [address] PCP - General Family Medicine 09/19/22 Elvie Barahona, IMAGERY ANALYST-PERFORMANCE IMPROVEMENT CONSULTANT [address] [facility] [address] [place] [address] PCP - [place] [employer] 09/12/23 Kayla Kahn DO [address] [place] [address] Referring Physician 09/19/22 Teacher Lip Reading Relationship Specialty Start Date End Date Sri Ramírez MD [address] [place] [address] PCP - General Family Medicine 09/19/22 Elvie Barahona, IMAGERY ANALYST-PERFORMANCE IMPROVEMENT CONSULTANT [address] [facility] [address] [place] [address] PCP - [place] [employer] 09/12/23 Kayla Kahn DO [address] [place] [address] Referring Physician 09/19/22 Teacher Lip Reading Relationship Specialty Start Date End Date Sri Ramírez MD [address] [place], [place] [id number] PCP - General Family Medicine 09/19/22 Elvie Barahona, IMAGERY ANALYST-PERFORMANCE IMPROVEMENT CONSULTANT [address] [facility] [address] [place] [address] PCP - [place] [employer] 09/12/23 Kayla Kahn DO [address] [place] [address] Referring Physician 09/19/22 Teacher Lip Reading Relationship Specialty Start Date End Date Sri Ramírez MD [address] [place] [address] PCP - General Family Medicine 09/19/22 Elvie Barahona, IMAGERY ANALYST-PERFORMANCE IMPROVEMENT CONSULTANT [address] [facility] [address] [place] [address] PCP - [place] [employer] 09/12/23 Kayla Kahn DO [address] [place] [address] Referring Physician 09/19/22 Teacher Lip Reading Relationship Specialty Start Date End Date Sri Ramírez MD [address] [place] [address] PCP - General [facility] 09/19/22 Elvie Barahona, IMAGERY ANALYST-[facility] [address] [facility] [address] [place] [address] PCP - [place] [employer] 09/12/23 Kayla Kahn DO [address] [place] [address] Referring Physician 09/19/22 Teacher Lip Reading Relationship Specialty Start Date End Date Sri Ramírez MD [address] [place] [address] PCP - General Family Medicine 09/19/22 Elvie Barahona, IMAGERY ANALYST-PERFORMANCE IMPROVEMENT CONSULTANT [address] [facility] [address] [place] [address] PCP - [place] [employer] 09/12/23 Kayla Kahn DO [address] [place] [address] Referring Physician 09/19/22 Teacher Lip Reading Relationship Specialty Start Date End Date Sri Ramírez MD [address] [place] [address] PCP - General Family Medicine 09/19/22 Elvie Barahona, IMAGERY ANALYST-PERFORMANCE IMPROVEMENT CONSULTANT [address] [facility] [address] [place] [address] PCP - [place] [employer] 09/12/23 Kayla Kahn DO [address] [place] [address] Referring Physician 09/19/22 Teacher Lip Reading Relationship Specialty Start Date End Date Sri Ramírez MD [address] [place] [address] PCP - General Family Medicine 09/19/22 Elvie Barahona, IMAGERY ANALYST-PERFORMANCE IMPROVEMENT CONSULTANT [address] [facility] [address] [place] [address] PCP - [place] [employer] 09/12/23 Kayla Kahn DO [address] [place] [address] Referring Physician 09/19/22 Teacher Lip Reading Relationship Specialty Start Date End Date Sri Ramírez MD [address] [place] [address] PCP - General Family Medicine 09/19/22 Elvie Barahona, IMAGERY ANALYST-PERFORMANCE IMPROVEMENT CONSULTANT [address] [address] PCP - [place] [employer] 09/12/23 Kayla Kahn DO [address] [place] [address] Referring Physician 09/19/22 Teacher Lip Reading Relationship Specialty Start Date End Date Sri Ramírez MD [address] [place] [address] PCP - General Family Medicine 09/19/22 Elvie Barahona APRN-PERFORMANCE IMPROVEMENT CONSULTANT [address] [address] PCP - [place] [employer] 09/12/23 Kayla Kahn DO [address] [place] [address] Referring Physician 09/19/22 Reason for Visit (unrecogniz ed section and content) Specialty Diagnoses / Procedures Referred By Wilman coker Referred To Contact Radiology Diagnoses Ureteral stone with hydronephrosis Suprapubic pain Dysuria Urgency of urination Procedures US RENAL COMPLETE Jason Fabian, IMAGERY ANALYST - ENAMEL DIPPER [address] [facility] [address] [place] [address] Referral ID Status Reason Start Date Expiration Date Visits Re quested Visits Authorized [id number] Closed 06/12/2021 06/12/2022 1 1 Reason Comments Well Women Visit Reason Comments Vaginitis/Bacterial Vaginosis Pt present today for follow up on BV/UTI. Pt complains of having an odor and would like cx's done at todays visit. Reason Comments Pre-op Visit Reason Comments pelvic pressure Reason Comments Post-op Visit Reason Comments BV and Cultures INFORMATION SOURCE (unrecogn ized section and content) DATE CREATED AUTHOR 06/23/2021 [facility] DATE CREATED AUTHOR AUTHOR'S ORGANIZ ATION 05/20/2022 [facility] DATE CREATED AUTHOR AUTHOR'S ORGANIZ ATION 09/25/2023 [facility] DATE CREATED AUTHOR AUTHOR'S ORGANIZ ATION 03/27/2024 Higdon Harshad [facility] DATE CREATED AUTHOR AUTHOR'S ORGANIZ ATION 04/13/2024 [facility] DATE CREATED AUTHOR AUTHOR'S ORGANIZ ATION 05/24/2024 [facility] DATE CREATED AUTHOR AUTHOR'S ORGANIZ ATION 05/24/2024 [facility] FOR RECORDS PERTAINING TO PATIENTS WHO ARE [...] BE BASED ON THE PRIMARY CLINICAL RECORDS. [facility] [employer] provides no warranty or guarantee of the accuracy or completeness of information in this document.
[2024-06-01] MEDS: ONDANSETRON 4 MG RAPDIS TABLET SL (19:06)
[2024-06-01] MEDS: LIDOCAINE HCL 1% 100 MG/10 ML MDV INJ (19:06)
--- NOTE | 2024-06-01 19:12 | PC.NURSE ---
i gave this patient verbal and paper discharge orders along with 1 work note and this patient voices yes to understanding these. at time of discharge this patient voices no concerns and shows no signs of distress. the PA dressed this laceration prior to discharge
== END 2024-06-01 19:14 | disposition home or self-care (01) ==
PROVIDERS: Emergency Provider Student in an Organized Health Care Education/Training Program; PCP Family Medicine
DX: S61.011A Laceration without foreign body of right thumb without damage to nail, initial encounter (principal); W26.8XXA Contact with other sharp object(s), not elsewhere classified, initial encounter; Z87.891 Personal history of nicotine dependence
CPT/HCPCS: 12001; 99283; Q0162

== ENCOUNTER 2024-08-12 18:57 | Emergency (ER) | payer BC, SELFPAY ==
[2024-08-12 19:06] VITALS: BP 132/88; PULSE 104; TEMP 36.8; O2SAT 99; BMI 21.7
[2024-08-12 20:26] LABS: Basophils Percent Auto 0.2 % (0.2-2.0); Eosinophils Percent Auto 0.6 % (0.9-7.0); Hematocrit 41.3 % (36.0-48.0); Hemoglobin 14.5 g/dL (12.0-16.0); Immature Granulocytes Abs Auto 0.03 10^3/uL (0.00-0.03); Immature Granulocytes Pct Auto 0.5 % (0.0-0.5); Lymphocytes Percent Auto 15.9 % (20.5-60.0); Mean Corpuscular HGB Conc 35.1 g/dL (29.9-35.2); Mean Corpuscular Hemoglobin 30.9 pg (26.7-34.0); Mean Corpuscular Volume 87.9 fL (81.0-99.0); Mean Platelet Volume 9.7 fL (9.5-13.5); Monocytes Absolute Auto 0.6 10^3/uL (0.3-0.8); Monocytes Percent Auto 9.1 % (1.7-12.0); Neutrophils Absolute Auto 4.8 10^3/uL (1.4-6.5); Neutrophils Percent Auto 73.7 % (43.0-75.0); Platelet Count 264 10^3/uL (150-450); Red Cell Distribution Width 12.2 % (11.0-15.0); White Blood Count 6.5 10^3/uL (4.0-11.0)
[2024-08-12 20:28] LABS: Bilirubin Urine NEGATIVE (NEGATIVE); Blood Urine TRACE-I (NEGATIVE); Clarity Urine CLEAR (CLEAR); Color Urine LT. YELLOW (YELLOW); Glucose Urine UA NEGATIVE (NEGATIVE); Ketones Urine NEGATIVE (NEGATIVE); Leukocyte Esterase Urine NEGATIVE (NEGATIVE); Nitrite Urine NEGATIVE (NEGATIVE); Protein Urine NEGATIVE (NEG/TRACE); Specific Gravity Urine <=1.005 (1.005-1.025); Urobilinogen Urine 0.2 EU/dL (0.2-1.0); pH Urine 6.5 (5.0-9.0)
[2024-08-12 20:33] LABS: HCG Qualitative Urine* POSITIVE (NEGATIVE); Internal Control Within Normal Limits
[2024-08-12 20:41] LABS: WBC Urine 0-2 #/HPF (NONE SEEN)
[2024-08-12 20:42] LABS: Amorphous Sediment Urine MODERATE; Bacteria Urine MODERATE #/HPF (NONE SEEN); Cast Seen? NONE SEEN #/LPF (NONE SEEN); Crystals Seen? None Seen #/HPF (None Seen); Mucus Urine NONE SEEN (NONE SEEN); Squamous Epithelial Cell Urine MODERATE #/LPF (NONE/RARE); Urine Culture Indicated YES-FRMC
[2024-08-12 20:43] LABS: RBC Urine 0-2 #/HPF (0-2)
[2024-08-12 20:46] LABS: Alanine Aminotransferase 18 U/L (14-59); Albumin Globulin Ratio 1.1; Albumin Level 3.9 g/dL (3.4-5.0); Alkaline Phosphatase 58 U/L (46-116); Anion Gap 11.2; Aspartate Amino Transferase 18 U/L (15-37); BUN Creatinine Ratio 13.3; Calcium 9.4 mg/dL (8.5-10.1); Carbon Dioxide 31.3 mmol/L (21.0-32.0); Chloride 101 mmol/L (98-107); Estimated GFR (African America >60 (>=60 mL/min/1.73m^2); Estimated GFR (Non-African Ame >60 (>=60 mL/min/1.73m^2); Globulin 3.5 g/dL; Glucose 84 mg/dL (74-106); Potassium 3.5 mmol/L (3.5-5.1); Sodium 140 mmol/L (136-145); Total Protein 7.4 g/dL (6.4-8.2)
[2024-08-12] MEDS: ONDANSETRON PF 4 MG/2 ML VIAL IV (20:52)
[2024-08-12 21:09] LABS: HCG Quantitative 115376 mIU/mL
--- NOTE | 2024-08-12 21:22 | ED.GENADUL1 ---
Documented by User: Daja Ryan 08/12/24 21:35 HPI HPI - General Adult General Chief complaint: OB/Uterine Contractions Stated complaint: abdominal pain-8 weeks Time Seen by Provider: 08/12/24 19:59 Source: patient Mode of arrival: walk-in Limitations: no limitations History of Present Illness HPI narrative: 29-year-old female presents here with chief complaint of abdominal cramping and nausea and vomiting. She is currently 8 weeks per dating. She is scheduled to have her official OB intake this week at Dr. Pan's office. She is here because she had some cramping and small spotting of brown dark blood while she was here in our waiting room. She says she has had nausea and vomiting but unable to keep food or fluids down recently. She does not appear toxic or lethargic. Her abdomen soft nontender palpation she is afebrile. She believes she is A+ blood type. Related Data Home Medications ?Medication ?Instructions ?Recorded ?Confirmed Bacillus coagulans-inulin 1 cap PO 03/21/24 billion cell-250 mg capsule (Probiotic Formula (inulin)) multivitamin (Daily Multi-Vitamin 1 tab PO DAILY 03/21/24 08/12/24 tablet) Previous Rx's ?Medication ?Instructions ?Recorded ondansetron 4 mg disintegrating 4 mg PO Q8H PRN nausea and 08/12/24 tablet vomiting 20 days #30 tabs Allergies Allergy/AdvReac Type Severity Reaction Status Date / Time bacitracin (From Neosporin Allergy Rash Verified 08/12/24 19:10 ([id number])) buspirone (From BuSpar) Allergy Anxiety Verified 08/12/24 19:10 escitalopram (From Lexapro) Allergy Fatigued Verified 08/12/24 19:10 neomycin (From Neosporin Allergy Rash Verified 08/12/24 19:10 ([id number])) polymyxin B (From Neosporin Allergy Rash Verified 08/12/24 19:10 ([id number])) Opioid HPI Opioid Management Most Recent Opioid Data: Last Pain Scale 6 06/01/24, 18:54 Review of Systems ROS Status of ROS 10 or more systems reviewed and unremarkable except as noted in history and below PFSH PFSH Medical History Neck pain ?M54.2 - Cervicalgia (ICD-10) Anemia ?D64.9 - Anemia, unspecified (ICD-10) ADHD ?F90.9 - Attention-deficit hyperactivity disorder, unspecified type (ICD-10) Depression ?F32.A - Depression, unspecified (ICD-10) Migraine ?G43.909 - Migraine, unspecified, not intractable, without status migrainosus (ICD-10) Urinary tract infection ?N39.0 - Urinary tract infection, site not specified (ICD-10) Pelvic pain ?R10.2 - Pelvic and perineal pain (ICD-10) Kidney stones ?N20.0 - Calculus of kidney (ICD-10) IBS (irritable bowel syndrome) ?K58.9 - Irritable bowel syndrome, unspecified (ICD-10) Anxiety ?F41.9 - Anxiety disorder, unspecified (ICD-10) Surgical History History of lithotripsy ?Z98.890 - Other specified postprocedural states (ICD-10) H/O removal of cyst ?Z98.890 - Other specified postprocedural states (ICD-10) History of wisdom tooth extraction ?K08.409 - Partial loss of teeth, unspecified cause, unspecified class (ICD-10) Family History Other Family history of breast cancer Family history of heart disease Family history of hypertension Family history of myocardial infarction Family history of stroke Social History Within the past year, how often did you have a drink containing alcohol: never Score interpretation: A score less than 3 is consistent with normal alcohol consumption. 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 General: The patient appears well and in no apparent distress. Patient is resting comfortably on cart. Skin: Warm, dry, no pallor noted. There is no rash noted. Head: Normocephalic, atraumatic Eye: Normal conjunctiva, no drainage, EOMI. PERRL Ears, Nose, Mouth, and Throat: oral mucosa is moist. Nares patent. Mouth without vesicles. Ear canals patent. Tm's without Erythema Cardiovascular: Regular Rate and Rhythm Respiratory: Patient is in no distress, no accessory muscle use, lungs are clear to auscultation, no wheezing, rales or rhonchi Back: non-tender, no CVA tenderness bilaterally to percussion. GI: Normal bowel sounds, no tenderness to palpation, no masses appreciated. No rebound, guarding, or rigidity noted. Musculoskeletal: The patient has no evidence of calf tenderness, no pitting edema, symmetrical pulses noted bilaterally Neurological: A&O x4, normal speech Psychiatric: Cooperative Constitutional Vital Signs, click to edit/add: Last Vital Signs Temp 98.2 F 08/12/24 19:06 Pulse 104 H 08/12/24 19:06 Resp 18 08/12/24 19:06 BP 132/88 08/12/24 19:06 Pulse Ox 99 08/12/24 19:06 O2 Del Method Room Air 08/12/24 19:06 Course Vital Signs Vital signs: Vital Signs Temperature 98.2 F 08/12/24 19:06 Pulse Rate 104 H 08/12/24 19:06 Respiratory Rate 18 08/12/24 19:06 Blood Pressure 132/88 08/12/24 19:06 Pulse Oximetry 99 08/12/24 19:06 Oxygen Delivery Method Room Air 08/12/24 19:06 Temperature 98.2 F 08/12/24 19:06 Pulse Rate 104 H 08/12/24 19:06 Respiratory Rate 18 08/12/24 19:06 Blood Pressure 132/88 08/12/24 19:06 Pulse Oximetry 99 08/12/24 19:06 Oxygen Delivery Method Room Air 08/12/24 19:06 Medical Decision Making MDM Narrative Medical decision making narrative: 29-year-old female presents here with chief complaint of abdominal cramping and nausea and vomiting. She is currently 8 weeks per dating. She is scheduled to have her official OB intake this week at Dr. Maxim's office. She is here because she had some cramping and small spotting of brown dark blood while she was here in our waiting room. She says she has had nausea and vomiting but unable to keep food or fluids down recently. She does not appear toxic or lethargic. Her abdomen soft nontender palpation she is afebrile. She believes she is A+ blood type. Here concern for nausea vomiting with . She also states she had small brown spotting. Ultrasound was performed and showed a heart rate of around 175 single live intrauterine measuring approximately 8 weeks. Patient does have an intake at Dr. Pan's office this week. She will be discharged home with Zofran. Patient is able to keep fluids down and to feels much better at this time. Patient be discharged home with abdominal pain in and hyperemesis. Patient is encouraged to follow-up with the office as scheduled or call office if symptoms change or worsen. Differential Diagnosis Differential Diagnosis: abdominal pain , hyperemesis Medical Records Medical records reviewed: Yes I reviewed the patient's medical records Lab Data Lab results reviewed: Yes I reviewed the patient's lab results Labs: Lab Results 08/12/24 Range/Units 20:15 WBC 6.5 (4.0-11.0) 10^3/uL RBC 4.70 (4.20-5.40) 10^6/uL Hgb 14.5 (12.0-16.0) g/dL Hct 41.3 (36.0-48.0) % MCV 87.9 (81.0-99.0) fL MCH 30.9 (26.7-34.0) pg MCHC 35.1 (29.9-35.2) g/dL RDW 12.2 (11.0-15.0) % Plt Count 264 (150-450) 10^3/uL MPV 9.7 (9.5-13.5) fL Neut % (Auto) 73.7 (43.0-75.0) % Lymph % (Auto) 15.9 L (20.5-60.0) % [place] % (Auto) 9.1 (1.7-12.0) % Eos % (Auto) 0.6 L (0.9-7.0) % Baso % (Auto) 0.2 (0.2-2.0) % Neut # (Auto) 4.8 (1.4-6.5) 10^3/uL Lymph # (Auto) 1.0 L (1.2-3.8) 10^3/uL [place] # (Auto) 0.6 (0.3-0.8) 10^3/uL Eos # (Auto) 0.0 (0.0-0.7) 10^3/uL Baso # (Auto) 0.0 (0.0-0.1) 10^3/uL Abs Immat Gran (auto) 0.03 (0.00-0.03) 10^3/uL Imm/Tot Granulo (auto) 0.5 (0.0-0.5) % Sodium 140 (136-145) mmol/L Potassium 3.5 (3.5-5.1) mmol/L Chloride 101 (98-107) mmol/L Carbon Dioxide 31.3 (21.0-32.0) mmol/L Anion Gap 11.2 BUN 8.0 (7.0-18.0) mg/dL Creatinine 0.60 (0.55-1.02) mg/dL Est GFR ( Amer) >60 (>=60 mL/min/1.73m^2) Est GFR (Non-Af Amer) >60 (>=60 mL/min/1.73m^2) BUN/Creatinine Ratio 13.3 Glucose 84 (74-106) mg/dL Calcium 9.4 (8.5-10.1) mg/dL Total Bilirubin 1.0 (0.2-1.0) mg/dL AST 18 (15-37) U/L ALT 18 (14-59) U/L Alkaline Phosphatase 58 (46-116) U/L Total Protein 7.4 (6.4-8.2) g/dL Albumin 3.9 (3.4-5.0) g/dL Globulin 3.5 g/dL Albumin/Globulin Ratio 1.1 HCG, Quant 175114 mIU/mL Urine Color Lt. yellow (YELLOW) Urine Clarity Clear (CLEAR) Urine pH 6.5 (5.0-9.0) Ur Specific [place] <=1.005 A (1.005-1.025) Urine Protein Negative (NEG/TRACE) mg/dL Urine Glucose (UA) Negative (NEGATIVE) mg/dL Urine Ketones Negative (NEGATIVE) mg/dL Urine Occult Blood Trace-i (NEGATIVE) Urine Nitrite Negative (NEGATIVE) Urine Bilirubin Negative (NEGATIVE) Urine Urobilinogen 0.2 (0.2-1.0) EU/dL Ur Leukocyte Esterase Negative (NEGATIVE) Urine RBC 0-2 (0-2) #/HPF Urine WBC 0-2 A (NONE SEEN) #/HPF Ur Squamous Epith Cells Moderate A (NONE/RARE) #/LPF Urine Crystals None seen (None Seen) #/HPF Amorphous Sediment Moderate Urine Bacteria Moderate A (NONE SEEN) #/HPF Urine Casts None seen (NONE SEEN) #/LPF Urine Mucus None seen (NONE SEEN) Ur Culture Indicated[place] [place] HCG, Qual Positive A (NEGATIVE) Discharge Plan Discharge Chief Complaint: OB/Uterine Contractions Clinical Impression: Abdominal pain during , Nausea and vomiting during Patient Disposition: Home, Self-Care Time of Disposition Decision: 21:20 Condition: Good Mode of Transportation: Private Vehicle Prescriptions / Home Meds: New ondansetron 4 mg tablet,disintegrating 4 mg PO Q8H PRN (Reason: nausea and vomiting) 20 Days Qty: 30 0RF No Action Probiotic Formula (inulin) 1 billion-250 cell-mg capsule PO multivitamin [Daily Multi-Vitamin] Tablet 1 tab PO DAILY Print Language: Wallisian Instructions: Nausea and Vomiting in (ED), Abdominal Pain in (ED) Referrals: Jose Pan DO [Physician, [employer]NAGER] - 08/18/24 Referral Note: as scheduled BUFFY DIANE [Primary Care Provider, Family Practice] - 1 week Discharge Date/Time: 08/12/24 21:37 Documented by User: Serena Enriquez DO 08/14/24 02:40 HPI HPI - General Adult General Chief complaint: OB/Uterine Contractions Stated complaint: abdominal pain-8 weeks Time Seen by Provider: 08/12/24 19:59 Related Data Home Medications ?Medication ?Instructions ?Recorded ?Confirmed Bacillus coagulans-inulin 1 cap PO 03/21/24 billion cell-250 mg capsule (Probiotic Formula (inulin)) multivitamin (Daily Multi-Vitamin 1 tab PO DAILY 03/21/24 08/12/24 tablet) Previous Rx's ?Medication ?Instructions ?Recorded ondansetron 4 mg disintegrating 4 mg PO Q8H PRN nausea and 08/12/24 tablet vomiting 20 days #30 tabs Allergies Allergy/AdvReac Type Severity Reaction Status Date / Time bacitracin (From Neosporin Allergy Rash Verified 08/12/24 19:10 ([id number])) buspirone (From BuSpar) Allergy Anxiety Verified 08/12/24 19:10 escitalopram (From Lexapro) Allergy Fatigued Verified 08/12/24 19:10 neomycin (From Neosporin Allergy Rash Verified 08/12/24 19:10 ([id number])) polymyxin B (From Neosporin Allergy Rash Verified 08/12/24 19:10 ([id number])) Opioid HPI Opioid Management Most Recent Opioid Data: Last Pain Scale 6 06/01/24, 18:54 PFSH PFS Medical History Neck pain ?M54.2 - Cervicalgia (ICD-10) Anemia ?D64.9 - Anemia, unspecified (ICD-10) ADHD ?F90.9 - Attention-deficit hyperactivity disorder, unspecified type (ICD-10) Depression ?F32.A - Depression, unspecified (ICD-10) Migraine ?G43.909 - Migraine, unspecified, not intractable, without status migrainosus (ICD-10) Urinary tract infection ?N39.0 - Urinary tract infection, site not specified (ICD-10) Pelvic pain ?R10.2 - Pelvic and perineal pain (ICD-10) Kidney stones ?N20.0 - Calculus of kidney (ICD-10) IBS (irritable bowel syndrome) ?K58.9 - Irritable bowel syndrome, unspecified (ICD-10) Anxiety ?F41.9 - Anxiety disorder, unspecified (ICD-10) Surgical History History of lithotripsy ?Z98.890 - Other specified postprocedural states (ICD-10) H/O removal of cyst ?Z98.890 - Other specified postprocedural states (ICD-10) History of wisdom tooth extraction ?K08.409 - Partial loss of teeth, unspecified cause, unspecified class (ICD-10) Family History Other Family history of breast cancer Family history of heart disease Family history of hypertension Family history of myocardial infarction Family history of stroke Social History Within the past year, how often did you have a drink containing alcohol: never Score interpretation: A score less than 3 is consistent with normal alcohol consumption. 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 Highest level of school completed/degree received: Associate degree: occupational, technical, vocational program Little interest or pleasure in doing things: not at all Feeling down, depressed, or hopeless: not at all Exam Constitutional Vital Signs, click to edit/add: Last Vital Signs Temp 98.2 F 08/12/24 19:06 Pulse 104 H 08/12/24 19:06 Resp 18 08/12/24 19:06 BP 132/88 08/12/24 19:06 Pulse Ox 99 08/12/24 19:06 O2 Del Method Room Air 08/12/24 19:06 Course Vital Signs Vital signs: Vital Signs Temperature 98.2 F 08/12/24 19:06 Pulse Rate 104 H 08/12/24 19:06 Respiratory Rate 18 08/12/24 19:06 Blood Pressure 132/88 08/12/24 19:06 Pulse Oximetry 99 08/12/24 19:06 Oxygen Delivery Method Room Air 08/12/24 19:06 Temperature 98.2 F 08/12/24 19:06 Pulse Rate 104 H 08/12/24 19:06 Respiratory Rate 18 08/12/24 19:06 Blood Pressure 132/88 08/12/24 19:06 Pulse Oximetry 99 08/12/24 19:06 Oxygen Delivery Method Room Air 08/12/24 19:06 Medical Decision Making Differential Diagnosis Differential Diagnosis: abdominal pain , hyperemesis, dehydration, viral illness, otitis Lab Data Labs: Lab Results 08/12/24 Range/Units 20:15 WBC 6.5 (4.0-11.0) 10^3/uL RBC 4.70 (4.20-5.40) 10^6/uL Hgb 14.5 (12.0-16.0) g/dL Hct 41.3 (36.0-48.0) % MCV 87.9 (81.0-99.0) fL MCH 30.9 (26.7-34.0) pg MCHC 35.1 (29.9-35.2) g/dL RDW 12.2 (11.0-15.0) % Plt Count 264 (150-450) 10^3/uL MPV 9.7 (9.5-13.5) fL Neut % (Auto) 73.7 (43.0-75.0) % Lymph % (Auto) 15.9 L (20.5-60.0) % [place] % (Auto) 9.1 (1.7-12.0) % Eos % (Auto) 0.6 L (0.9-7.0) % Baso % (Auto) 0.2 (0.2-2.0) % Neut # (Auto) 4.8 (1.4-6.5) 10^3/uL Lymph # (Auto) 1.0 L (1.2-3.8) 10^3/uL [place] # (Auto) 0.6 (0.3-0.8) 10^3/uL Eos # (Auto) 0.0 (0.0-0.7) 10^3/uL Baso # (Auto) 0.0 (0.0-0.1) 10^3/uL Abs Immat Gran (auto) 0.03 (0.00-0.03) 10^3/uL Imm/Tot Granulo (auto) 0.5 (0.0-0.5) % Sodium 140 (136-145) mmol/L Potassium 3.5 (3.5-5.1) mmol/L Chloride 101 (98-107) mmol/L Carbon Dioxide 31.3 (21.0-32.0) mmol/L Anion Gap 11.2 BUN 8.0 (7.0-18.0) mg/dL Creatinine 0.60 (0.55-1.02) mg/dL Est GFR ( Amer) >60 (>=60 mL/min/1.73m^2) Est GFR (Non-Af Amer) >60 (>=60 mL/min/1.73m^2) BUN/Creatinine Ratio 13.3 Glucose 84 (74-106) mg/dL Calcium 9.4 (8.5-10.1) mg/dL Total Bilirubin 1.0 (0.2-1.0) mg/dL AST 18 (15-37) U/L ALT 18 (14-59) U/L Alkaline Phosphatase 58 (46-116) U/L Total Protein 7.4 (6.4-8.2) g/dL Albumin 3.9 (3.4-5.0) g/dL Globulin 3.5 g/dL Albumin/Globulin Ratio 1.1 HCG, Quant [id number] mIU/mL Urine Color Lt. yellow (YELLOW) Urine Clarity Clear (CLEAR) Urine pH 6.5 (5.0-9.0) Ur Specific [place] <=1.005 A (1.005-1.025) Urine Protein Negative (NEG/TRACE) mg/dL Urine Glucose (UA) Negative (NEGATIVE) mg/dL Urine Ketones Negative (NEGATIVE) mg/dL Urine Occult Blood Trace-i (NEGATIVE) Urine Nitrite Negative (NEGATIVE) Urine Bilirubin Negative (NEGATIVE) Urine Urobilinogen 0.2 (0.2-1.0) EU/dL Ur Leukocyte Esterase Negative (NEGATIVE) Urine RBC 0-2 (0-2) #/HPF Urine WBC 0-2 A (NONE SEEN) #/HPF Ur Squamous Epith Cells Moderate A (NONE/RARE) #/LPF Urine Crystals None seen (None Seen) #/HPF Amorphous Sediment Moderate Urine Bacteria Moderate A (NONE SEEN) #/HPF Urine Casts None seen (NONE SEEN) #/LPF Urine Mucus None seen (NONE SEEN) Ur Culture Indicated? [place] [place] HCG, Qual Positive A (NEGATIVE) Discharge Plan Discharge Chief Complaint: OB/Uterine Contractions Clinical Impression: Abdominal pain during , Nausea and vomiting during Patient Disposition: Home, Self-Care Time of Disposition Decision: 21:20 Condition: Good Mode of Transportation: Private Vehicle Prescriptions / Home Meds: New ondansetron 4 mg tablet,disintegrating 4 mg PO Q8H PRN (Reason: nausea and vomiting) 20 Days Qty: 30 0RF No Action Probiotic Formula (inulin) 1 billion-250 cell-mg capsule PO multivitamin [Daily Multi-Vitamin] Tablet 1 tab PO DAILY Print Language: Wallisian Instructions: Nausea and Vomiting in (ED), Abdominal Pain in (ED) Referrals: Jose Pan DO [Physician, [employer] PROGRAM MANAGER] - 08/18/24 Referral Note: as scheduled BUFFY DIANE [Primary Care Provider, Family Practice] - 1 week Discharge Date/Time: 08/12/24 21:37 Procedures ED US Ultrasound Pelvic Ultrasound Pelvic exam #1: Status: positive Anatomical areas examined: uterus Indications: other (Patient is nauseous and not feeling well and concerned that there is something wrong with her baby. She is not having any abdominal pain but she is concerned.) Exam type: limited transabdominal ultrasound Impression: normal exam and live IUP
== END 2024-08-12 21:37 | disposition home or self-care (01) ==
PROVIDERS: Physician Assistant; Emergency Provider Emergency Medicine; PCP Family Medicine
DX: O26.891 Other specified pregnancy related conditions, first trimester (principal); R10.9 Unspecified abdominal pain; O21.9 Vomiting of pregnancy, unspecified; Z3A.08 8 weeks gestation of pregnancy; Z87.891 Personal history of nicotine dependence
CPT/HCPCS: 36415; 76817; 80053; 81001; 84702; 84703; 85025; 86900; 86901; 87086; 96374; 99285; J2405

== ENCOUNTER 2024-08-22 10:04 | Outpatient (OUT) | payer BC, MEDICAID, SELFPAY ==
--- OUTSIDE RECORDS SUMMARY | 2024-08-22 10:28 | XMS_ITS | CCD ---
Author Organization [facility] Care Team Providers Care Clinic Specialist Name Role Phone Sri Ramírez MD Primary Care Provider JASON FABIAN Referring Unavailable BENEDICTO, SRI Mera Primary Care Unavailable PARSJASON WELCH Referring Unavailable BENEDICTO, SRI Mera Primary Care Unavailable JASON FABIAN Referring Unavailable BENEDICTO, SRI Mera Primary Care Unavailable JASON FABIAN Referring Unavailable BENEDICTO SRI Mera Primary Care Unavailable BENEDICTO, DR BAER Primary Care Unavailable BK DENT Admitting Unavailable BK DENT Attending Unavailable ALISA MOULTON Consulting Unavailable MAXIM, DR WESTON Admitting Unavailable MAXIM, DR WESTON Attending Unavailable BENEDICTO, DR BAER Primary Care Unavailable MAXIM, DR WESTON Consulting Unavailable BENEDICTO SRI Mera Primary Care Unavailable DILCIA LAZO Attending Unavailable Sri Ramírez MD Primary Care Provider [phone] Femi ROQUE Kayla R Unavailable [phone] Sharifa-Nossek SOCIAL STAFF WORKER-PIPE BENDING MACHINE OPERATOR, Elvie M Unavailable BENEDICTO SRI Samaria Primary Care Physician [phone] Femi ROQUE, Kayla R Unavailable Bonita Yu Attending Unavailable Bonita Yu Attending Unavailable Mitra Ellis Attending Unavailable Mitra Ellis Admitting Unavailable Femi ROQUE Kayla R Unavailable Bonita Yu Attending Unavailable JONAH GOMEZ Attending Unavailable JONAH GOMEZ Attending Unavailable JONAH GOMEZ Attending Unavailable DAJA EPPERSON Attending Unavailable REGGIE SUH Attending Unavailable BENEDICTO SRI Samaria Attending Unavailable BENEDICTOSRI Referring Unavailable ALEXIS DONG Attending Unavailable ALEXIS DONG Referring Unavailable SRI RAMÍREZ Attending Unavailable ELVIE BARAHONA Attending Unavailab ELVIE Singer Attending Unavailab JOSE El Attending Unavailable DAJA EPPERSON Attending Unavailable JOSE PAN Attending Unavailable MAXIM, JOSE Attending Unavailable JOSE PAN Attending Unavailable Allergies Allergy Classification Reported Allergen(s) Allergy Type Date of Onset Reaction(s) Facility (20 sources) Bacitracin / Polymyxin B; Translations: [bacitracin-taylor ymyxin B topical] Drug Allergy 3 Unknown (qualifier value) [facility] (20 sources) busPIRone; Translations: [buspirone] Drug Allergy 3 Anxiety, Anxiety (finding) [facility] (20 sources) Escitalopram; Translations: [escitalopram] Drug Allergy 3 Other, Drowsy (finding) [facility] (2 sources) busPIRone; Translations: [BuSpar] Drug Allergy [facility] (2 sources) Escitalopram; Translations: [Lexapro] Drug Allergy [facility] (2 sources) Bacitracin-Poly myxin; Translations: [Bacitracin-Taylor ymyxin] Propensity to adverse reactions (disorder) [facility] Medications Current Medications Medication Drug Class(es) Dates Sig (Normalized) Sig (Original) cephalexin 500 mg oral capsule (3 sources) Cephalosporin Antibacterial Start: 06-10-2024 End: 06-17-2024 cephalexin (Keflex) 500 MG capsule Indications: Cellulitis of finger of right hand Take 1 capsule (500 mg) by mouth in the morning and 1 capsule (500 mg) at noon and 1 capsule (500 mg) in the evening and 1 capsule (500 mg) before bedtime. Do all this for 7 days. 28 capsule 06/10/2024 06/17/2024 Active Clindamycin (1 source) Lincosamide Antibacterial Start: [...] 02/15/2024 02/22/2024 Active Multiple Vitamin (multivitamin) tablet (15 sources) take 1 tablet by mouth once daily Multiple Vitamin (multivitamin) tablet Take 1 tablet by mouth Daily Active ondansetron 4 mg disintegrating oral tablet (1 source) Serotonin-3 Receptor Antagonist Start: 08-13-2024 ondansetron ODT (Zofran-ODT) 4 MG disintegrating tablet DISSOLVE 1 TABLET on tongue EVERY 8 HOURS NEEDED FOR NAUSEA & FOR VOMITING 08/13/2024 Active polyethylene glycol 3350 99665 mg powder for oral solution (4 sources) [...] 06/12/2021 Active ubidecarenone 30 mg oral capsule (12 sources) take 1 capsule by mouth once [...] [Anxiety disorder, unspecified] Onset: 09-06-2022 09-06-2022 Chronic Genitourinary symptoms and ill-defined conditions (20 sources) Dysuria; Translations: [Dysuria] Onset: 03-01-2024 Episodic Menstrual disorders (20 sources) Amenorrhea; Translations: [Amenorrhea, unspecified] Onset: 09-06-2022 09-06-2022 Chronic Mood disorders (20 sources) Bipolar affective disorder, currently depressed, moderate; Translations: [Bipolar disorder, current episode depressed, moderate] Onset: 09-06-2022 09-06-2022 Chronic Nonmalignant breast conditions (2 sources) Lump in lower outer quadrant of left breast; Translations: [Unspecified lump in the left breast, lower outer quadrant] 07-18-2024 Episodic Other aftercare (2 sources) Surgical follow-up; Translations: [Encounter for follow-up examination after completed treatment for conditions other than malignant neoplasm] 04-20-2024 Episodic Other aftercare (2 sources) Removal of sutures done; Translations: [Encounter for removal of sutures] 06-10-2024 Episodic Other diseases of kidney and ureters [...] and concentration deficit] Onset: 09-06-2022 09-06-2022 Chronic Other and delivery including normal (2 sources) ; Translations: [Encounter for supervision of normal , unspecified, unspecified trimester] 08-18-2024 Episodic Skin and subcutaneous tissue infections (2 sources) Cellulitis of finger of right hand; Translations: [Cellulitis of right finger] 06-10-2024 Episodic Past or Other Problems Problem Classification Problem Date Documented Da te Episodic/Chronic Abdominal pain (20 sources) Suprapubic pain; Translations: [Pelvic and perineal pain] Onset: 09-06-2022 Episodic Bacterial infection; unspecified site (20 sources) Mycoplasma infection; Translations: [Mycoplasma infection, unspecified site] Onset: 02-15-2024 02-15-2024 Episodic Calculus of urinary tract (18 sources) Kidney stone; Translations: [Calculus of kidney] Onset: 07-25-2013 03-27-2014 Episodic Complication of device; implant or graft (20 sources) Disorder of intrauterine contraceptive device; Translations: [Unspecified complication of genitourinary prosthetic device, implant and graft, initial encounter] Onset: 09-06-2022 09-06-2022 Episodic Immunizations and screening for infectious disease (1 source) Encounter for screening for human papillomavirus (HPV); Translations: [ENC SCREENING HUMAN PAPILLOMAVIRUS] Onset: 05-22-2021 Episodic Inflammatory diseases of female pelvic organs (20 sources) Bacterial vaginosis; Translations: [Acute vaginitis] Onset: 02-15-2024 02-15-2024 Episodic Other complications of (20 sources) Anxiety in ; Translations: [Other mental disorders complicating , unspecified trimester] Onset: 03-26-2020 11-17-2022 Episodic Other complications of (20 sources) 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 ; Translations: [Other mental disorders complicating , unspecified trimester] Onset: 03-26-2020 11-17-2022 Episodic Other complications of (6 sources) Other mental disorders complicating , unspecified trimester; Translations: [Mental disorders of mother, antepartum condition or complication] Onset: 03-26-2020 11-17-2022 Episodic Other female genital disorders (20 sources) Vaginal odor; Translations: [Other specified noninflammatory [...] CERV] Onset: 05-21-2021 Episodic Urinary tract infections (20 sources) Cystitis, unspecified with hematuria; Translations: [Urinary tract infectious disease] Onset: 09-22-2023 02-15-2024 Episodic Results Test Name Value Interpretation Reference Range Facility HCG ( test) Ql (U)o n 08-18-2024 Interpretation and review of laboratory results Abnormal [facility] Preg Test, Ur Positive Negative [facility] US OB TRANSVAGINALon 025 US OB TRANSVAGINAL EXAM: US OB TRANSVAGINAL HISTORY: Dating. LMP 06/19/2024. . COMPARISON: None. TECHNIQUE: Two-dimensional transvaginal grayscale and color Doppler ultrasound imaging of the pelvis was performed. FINDINGS: The uterus demonstrates a normal homogeneous echotexture. The cervical os is closed. The right ovary measures 4.5 x 1.7 x 1.9 cm and demonstrates a normal echotexture. There is normal color Doppler flow. The left ovary measures 4.2 x 2.8 x 3.0 cm and demonstrates a normal echotexture. There is normal color Doppler flow. No fluid is present within the cul-de-sac. There is a single, live intrauterine gestation identified with a heart rate of 181 beats per minute and a crown-rump length measurement of 2.2 cm, correlating to a gestational age of 8 weeks 6 days (+/- 6 days). There is no subchorionic hemorrhage visualized. A yolk sac is visualized. IMPRESSION: 1. Single, live intrauterine gestation 8 weeks, 4 days by LMP. Today's ultrasound measurements correlate with a gestational age of 8 weeks 6 days (+/- 6 days). ALAN by today's ultrasound is 05/25/2024. Interpreted by: Electronically signed by CARMINA REYNOSO II, MD, PHD at 21-Aug-2024 08:21:12 PM [facility] Normal Not Available Comment on above: Order Comment: US OB TRANSVAGINAL No LMP recorded. Urinalysis macro (dipstick) panel (U)on 08-18-2024 Bilirubin, UA Negative Negative - 4(70) +++ mg/dL [facility] Blood, UA Negative Negative - 50 Allen/mcL [facility] Clarity, UA Clear [facility] Color, UA Yellow [facility] Glucose, UA Negative Negative - 1999(110) ++++ mg/dL [facility] Interpretation and review of laboratory results Normal [facility] Ketones, UA Negative Negative - 160(16) ++++ mg/dL [facility] Leukocytes, UA Negative Negative - 500+++ Andrei/mcL [facility] Nitrite, UA Negative Negative - Positive [facility] pH, UA 7 5 - 9 [facility] Protein, UA Negative Negative - 1999(20) ++++ mg/dL [facility] Spec Grav, UA 1.01 1 - 1.03 [facility] Urobilinogen, UA 0.2 0.2 - 12 mg/dL [facility] Ambulatory Visit Summaryon 0 08-01-2024 Ambulatory Visit Summary Ambulatory Visit Summary FAHEEM BELCHER :1995 Visit Date:08/01/2024 Ambulatory Visit Instructions Your Diagnosis UTI symptoms Your Care Team Attending Physician - JONAH GOMEZ PA-C Primary Care Physician - BENEDICTO DILLON, SRI Mera This Is Your Medications List Non-Formulary Medication (demannose and cranberry) bifidobacterium-lacto bacillus (Probiotic 10 Ultra Strength) multivitamin, (Vitafusion ) Procedures Performed Lithotripsy (2014). Discharge Vitals Temperature (Temporal Artery) 37 ???C Heart Rate (Peripheral) 89 Respiratory Rate 16 Blood Pressure 137/82 Height 174 cm Height 69 in Weight 64 kg Weight 141.096 lb BMI 21.14 Medications What How Much When Instructions Unchanged bifidobacterium-lacto bacillus (Probiotic 10 Ultra Strength) 1 Capsules By Mouth Every day Unchanged multivitamin, (Vitafusion ) Chewed Every day Unchanged Non-Formulary Medication (demannose and cranberry) See instructions Allergies Bacitracin-Polymyxin (Unknown) BuSpar (Anxiety) Lexapro (Sleepy) Problems Ongoing - Any problem that you are currently receiving treatment for. Adjustment disorder with mixed anxiety and depressed mood Amenorrhea Anxiety Bipolar affective disorder, currently depressed, moderate Bladder pain Generalized anxiety disorder Gross hematuria H/O chlamydia infection Inattention Irregular menses Irritable bowel syndrome with diarrhea Kidney stone Kidney stones Pain in pelvis Post-traumatic stress disorder Slow transit constipation Patient Survey You may receive a survey via text or e-mail asking about your office visit. Please share your experience with us by completing your survey. We appreciate your feedback and thank you for choosing us for your care. Normal [facility] Urology Office/Clinic Noteon 08-01-2024 Urology Office/Clinic Note Urology Office/Clinic Note Chief Complaint possible UTI HPI Staff Pt is here for possible UTI. She is 6 weeks . Dx: gross hematuria, bladder pain and kidney stones. States that she has been having a pressure that makes her feel like she constantly has to void this is chronic but worse last few days. Has mild burning. States that intercourse is very painful for her also chronic but recently worse. Denies any visible blood. Pt states that she does have some low back pain off and on but no flank pain or abdominal pain. Review of Systems PHQ Score Initial Depression Screen Score: 0 SCORE no fever, chills, malaise, myalgia. no rash/lesions. no chest pain, palpitations, or SOB. no nausea, vomiting. Physical Exam Vitals & Measurements T: 37 ???C(Temporal Artery) HR: 89(Peripheral) RR: 16 BP: 137/82 HT: 69 in HT: 174 cm WT: 141.096 lb WT: 64 kg BMI: 21.14 General: nontoxic, NAD Mouth: moist mucosa Lungs: normal respiratory effort Cardio: regular rate, good distal perfusion Abdomen: nondistended Neurologic: Grossly normal Skin: No rashes or suspicious lesions Assessment/Plan 1. Bladder pain (R39.89: Other symptoms and signs involving the genitourinary system) x1 yr. Evaluated by OBGYN and dx'd w mild-moderate Endometriosis he took care of what he could while he was in there. Didn't notice any change in urinary sx/pelvic pain after procedure. Does not necessarily change w abx. Called w sx 03/21. Cx showed 100k Klebsiella. Tx'd w Bactrim x5d. Sx persisted so AO sent 7d Keflex. MANAGER FINE spoke with her about possible IC. We discussed this at length today. Unfortunately there aren't great studies about safety of Amitriptyline or Elmiron with . Anticholinergics should be used with caution. I did advise there are some reports of improvement w antihistamines, which are safe in . Pt will speak w OB and consider this. Can consider other meds once she has baby. Pt noticed worsening sx past few days. Was concerned for UTI since she's . UA looks totally normal. No indication for Cx. Pt requesting to be able to submit UA throughout when she has sx flares. This is fine. Does not need appt every time (as this could delay evaluation). However once she is no longer , will need to follow office policy regarding appts. Pt verbalizes understanding and is grateful for plan while . 2. Kidney stones (N20.0: Calculus of kidney) Hx of lithotripsy about 2013. Denies any know stone event since. R US 06/20/21 with nonobstructing left renal stones measuring up to 5 mm. KUB 06/19/2021 negative. MARCIA 03/21/24 shows bilat nonobstructing stones up to 6mm. However these were not visible on KUB 03/21/24. Pt has had no flank pain, gross hematuria, abdominal pain. Bladder/pelvic pain does not feel consistent w previous stone episodes. Orders: E&M of Est. Patient Moderate 30-39 Min 88868 Urnls Dip Stick Auto w/o Microscopy POC 82001 Follow-up With When Contact Information Call for UTI symptoms. Call to schedule follow up after . Additional Instructions: Patient Education Kidney Stones, Uteh-ft-Hdxh Problem List/Past Medical History Ongoing Adjustment disorder with mixed anxiety and depressed mood Amenorrhea Anxiety Bipolar affective disorder, currently depressed, moderate Bladder pain Generalized anxiety disorder Gross hematuria H/O chlamydia infection Inattention Irregular menses Irritable bowel syndrome with diarrhea Kidney stones Pain in pelvis Post-traumatic stress disorder Slow transit constipation Historical No qualifying data Procedure/Surgical History Lithotripsy (2014). Medications demannose and cranberry, See Instructions Probiotic 10 Ultra Strength, 1 cap(s), Oral, Daily Vitafusion , Chewed, Daily Allergies Bacitracin-Polymyxin (Unknown) BuSpar (Anxiety) Lexapro (Sleepy) Social History Alcohol Never., 03/01/2024 Substance Abuse Never., 03/01/2024 Tobacco Former smoker, quit more than 30 days ago Tobacco Use:. Never Smokeless Tobacco Use:. Cigarettes, Household tobacco concerns: No. Yes, 08/01/2024 Family History Cancer: Mother. Mental illness: Mother. Primary malignant neoplasm of female breast: Grandparent. Lab Results Ambulatory Point of Care Results Bilirubin Urine Dipstick: Negative (08/01/24 13:23:00) Blood Urine Dipstick: Negative (08/01/24 13:23:00) Glucose Urine Dipstick: Negative (08/01/24 13:23:00) Ketones Urine Dipstick: Negative (08/01/24 13:23:00) Leukocytes Urine Dipstick: Negative (08/01/24 13:23:00) Nitrite Urine Dipstick: Negative (08/01/24 13:23:00) Protein Urine Dipstick: Negative (08/01/24 13:23:00) Specific Brandon Urine Dipstick: <=1.005 (08/01/24 13:23:00) Urine Appearance Urine Dipstick: Clear (08/01/24 13:23:00) Urine Color Urine Dipstick: Yellow (08/01/24 13:23:00) Urobilinogen Urine Dipstick: Normal 0.2-1 EU/dl (08/01/24 13:23:00) pH Urine Dipstick (more content not included)... Normal [facility] Comment on above: Result Comment: Elec tronically Signed By: JONAH GOMEZ PA-C\.robbin\Date and Time Signed: 08/01/24 16:14 EDT BI US BREAST LIMITED LEFTon 07-20-2024 BI US BREAST LIMITED LEFT This is a summary report. The complete report is available in the patient's medical record. If you cannot access the medical record, please contact the sending organization for a detailed fax or copy. Examination: BI US BREAST LIMITED LEFT Reason for Study: breast lump Comparison: None Technique: Left breast ultrasound study was performed from the 3:00 to the 5 o'clock position to include area of lump. Findings: No obvious solid or cystic mass. No obvious solid vascular mass to suggest neoplasm. No obvious abnormal calcifications or vascularity. No obvious ductal dilatation. Dense fibroglandular tissue is noted. IMPRESSION: Impression: Left breast ultrasound study fails to convincingly demonstrate evidence of neoplasm. Dense fibroglandular tissue not felt to be acutely significant. BI-RADS 2 ELECTRONICALLY SIGNED BY: Jairo Hernández M.D. Normal Not Available Reminderson 04-12-2024 Reminders Reminders From: Anayeli Laureano To: EU - Administrative; Sent: 03/01/2024 11:42:31 EST Show up: 03/22/2024 11:42:00 EST Subject: Ambulatory Reminder Due Date/Time: 05/28/2024 11:42:00 EST Reminder/Recall Patient needs scheduled with SURYA for a 3 month F/U, due back in May 2024 MAY 16 W/ [facility] IN [place] Normal [facility] ALL CBC WITH AUTO DIFFon BASOPHILS ABSOLUTE AUTO 0 [facility] Basophils/100 WBC (Bld) 0.4 % 0.2 - 2.0 % [facility] Eosinophils/100 WBC (Bld) 2.3 % 0.9 - 7.0 % [facility] Erythrocyte distribution width (RBC) [Ratio] 11.9 % 11.0 - 15.0 % [facility] Hematocrit (Bld) [Volume fraction] 42 % 36.0 - 48.0 % [facility] Hemoglobin (Bld) [Mass/Vol] 14.4 g/dL 12.0 - 16.0 g/dL [facility] IMMATURE GRANULOCYTES ABS AUTO 0.01 [facility] Immature granulocytes/100 WBC (Bld) 0.2 % 0.0 - 0.5 % [facility] Interpretation and review of laboratory results Abnormal [facility] LYMPHOCYTES ABSOLUTE AUTO 2 [facility] Lymphocytes/100 WBC (Bld) 42.5 % 20.5 - 60.0 % [facility] MCH (RBC) [Entitic mass] 30.6 pg 26.7 - 34.0 pg [facility] MCHC (RBC) [Mass/Vol] 34.3 g/dL 29.9 - 35.2 g/dL [facility] MCV (RBC) [Entitic vol] 89.2 fL 81.0 - 99.0 fL [facility] MONOCYTES ABSOLUTE AUTO 0.5 [facility] Monocytes/100 WBC (Bld) 11 % 1.7 - 12.0 % [facility] NEUTROPHILS ABSOLUTE AUTO 2.1 [facility] Neutrophils/100 WBC (Bld) 43.6 % 43.0 - 75.0 % [facility] Platelet mean volume (Bld) [Entitic vol] 9.4 fL Low 9.5 - 13.5 fL [facility] EO # 0.1 [facility] TB PLT 293 [facility] RBC 4.71 [facility] WBC 4.7 [facility] C Urineon 03-24-2024 Bacteria identified [...] Locations R1: This test was performed at: [facility], [address] [place] [address], [id number] , [place], Normal [facility] Comment on above: Performed By: #### [id number] #### [facility] [address] [place] [id number] Urinalysis macro (dipstick) panel (U)on 02-15-2024 Bilirubin, UA Negative Negative - 4(70) +++ mg/dL [facility] Blood, UA Negative Negative - 50 Allen/mcL [facility] Clarity, UA Clear [facility] [employer] re Color, UA Yellow [facility] [employer] [facility] Glucose, UA Negative Negative - 1999(110) ++++ mg/dL [facility] Interpretation and review of laboratory results Normal [facility] Ketones, UA Negative Negative - 160(16) ++++ mg/dL [facility] Leukocytes, UA Negative Negative - 500+++ Andrei/mcL [facility] Nitrite, UA Negative Negative - Positive [facility] pH, UA 7 5 - 9 [facility] [employer] e Protein, UA Negative Negative - 1999(20) ++++ mg/dL [facility] Spec Grav, UA 1.01 1 - 1.03 [facility] Urobilinogen, UA 0.2 0.2 - 12 mg/dL [facility] IGP,APTIMA HPV,AGE GDLNon AGE GDLN ACOG TESTING Note . [facility] Comment on above: TESTS RESULT FLAG UN ITS REF RANGE LAB Clinician Provided Cytology Information Source.............Cervix;Endocervix No. of containers..01 ThinPrep Vial Age Algo ACOG Dione... -11 05 FLAG LEGEND: L-Low Normal,H-High Normal,LL-Alert Low,HH-Alert High <-Panic Low,>-Panic High,A-Abnormal,AA-Critical Abnormal Performed at: 01 =G [facility] [address] [place] [address] Cristiane Eduardo MD, IGP, RFX APTIMA HPV ASCU Note . [facility] Comment on above: TESTS RESULT FLAG UN ITS REF RANGE LAB DIAGNOSIS: 02 NEGATIVE FOR INTRAEPITHELIAL LESION OR MALIGNANCY. Specimen adequacy: 02 Satisfactory for evaluation. Endocervical and/or squamous metaplastic cells (endocervical component) are present. Performed by: Jemma Sin, Industrial Economics Professor ([facility]) . 02 Note: Note 03 The Pap [...] <-Panic Low,>-Panic High,A-Abnormal,AA-Critical Abnormal Performed at: 02 [facility] [address] [address] [address] [place] [address] Mayur Coleman MD, [address] [address] Cristiane Eduardo MD, Performed at: =G - [facility] [id number] [place] Working Supervisor: Cristiane Eduardo MD, Phone: [phone] Performed at: [facility] [address] [address] [place], [place] [id number] [place] Working Supervisor: Mayur Coleman MD, Phone: [phone] BRUSH-SPATULA CERVIX ENDOCERVIX [facility] Cytology Cervical or vaginal smear or scraping studyon 01-27-2024 [facility] No Panel Informationon 01-12 STAPHYLOCOCCUS EPIDERMIDIS, HAEMOLYTICUS, LUGDUNENSIS, SAPROPHYTICUS (URINA 0.000 [facility] STAPHYLOCOCCUS EPIDERMIDIS, HAEMOLYTICUS, LUGDUNENSIS, SAPROPHYTICUS (URINA Not detected [facility] URINARY TRACT INFECTION (HTR X)on 01-13-2024 ACINETOBACTER BAUMANII 0.000 [facility] ACINETOBACTER BAUMANII Not detected [facility] REAL ALBICANS, PARAPSILOSIS, TROPICALIS 0.000 [facility] Healthcare REAL ALBICANS, PARAPSILOSIS, TROPICALIS Not detected [facility] Healthcare REAL GLABRATA 0.000 [facility] REAL GLABRATA Not detected [facility] REAL KRUSEI 0.000 [facility] REAL KRUSEI Not detected [facility] Hea lthcare CITROBACTER FREUNDII 0.000 [facility] CITROBACTER FREUNDII Not detected [place] [facility] ENTEROBACTER AEROGENES, CLOACAE 0.000 [facility] Healthoh re ENTEROBACTER AEROGENES, CLOACAE Not detected [facility] re ENTEROCOCCUS FAECALIS, FAECIUM 0.000 [facility] Healthcar e ENTEROCOCCUS FAECALIS, FAECIUM Not detected [facility] Healthcar e ESCHERICHIA COLI 0.000 [facility] Hea lthcare ESCHERICHIA COLI Not detected [facility] H ealthcare KLEBSIELLA PNEUMONIAE, OXYTOCA 0.000 [facility] are KLEBSIELLA PNEUMONIAE, OXYTOCA Not detected [facility] are MORGANELLA MORGANII 0.000 [facility] MORGANELLA MORGANII Not detected [facility] PROTEUS MIRABILIS, VULGARIS 0.000 [facility] PROTEUS MIRABILIS, VULGARIS Not detected [facility] PSEUDOMONAS AERUGINOSA 0.000 [facility] PSEUDOMONAS AERUGINOSA Not detected [facility] SERRATIA MARCESCENS 0.000 [facility] SERRATIA MARCESCENS Not detected [facility] STAPHYLOCOCCUS AUREUS 0.000 [facility] STAPHYLOCOCCUS AUREUS Not detected [facility] STREPTOCOCCUS AGALACTIAE (GROUP B STREP) 0.000 [facility] STREPTOCOCCUS AGALACTIAE (GROUP B STREP) Not detected [facility] STREPTOCOCCUS PYOGENES (GROUP A STREP) 0.000 [facility] STREPTOCOCCUS PYOGENES (GROUP A STREP) Not detected [facility] H[facility] ( test) Ql (U)o n 01-11-2024 Interpretation and review of laboratory results Normal [facility] Preg Test, Ur Negative [facility] Urinalysis macro (dipstick) panel (U)on 01-11-2024 Bilirubin, UA Negative Negative - (70) +++ mg/dL [facility] Blood, UA Positive Negative - 50 Allen/mcL [facility] Clarity, UA Clear [facility] re Color, UA Yellow [facility] Healthcar e Glucose, UA Negative Negative - 1999(110) ++++ mg/dL [facility] Interpretation and review of laboratory results Abnormal [facility] Ketones, UA Positive Negative - 160(16) ++++ mg/dL [facility] Leukocytes, UA Negative Negative - 500+++ Andrei/mcL [facility] Nitrite, UA Negative Negative - Positive [facility] pH, UA 6.5 5 - 9 [facility] Healthcar e Protein, UA Negative Negative - 1999(20) ++++ mg/dL [facility] Spec Grav, UA 1.015 1 - 1.03 [facility] Urobilinogen, UA 1.0 0.2 - 12 mg/dL [facility] XR CERVICAL SPINE [...] GROWTH Report Status FINAL 09/23/2023 Normal [facility] Comment on above: Performed By: #### U RC #### [address] [address] [place] Working Supervisor: Moisés Carl MD [address] [address] [place] Working Supervisor: Wan Morales MD HCG, ,Urineon 09-21 Beta HCG ( test) Ql (U) Negative Normal NEG [facility] Comment on above: Result Comment: Spec [...] #### U AX, UHCG, UMICAO #### [address] [address] [place] Working Supervisor: Wan Morales MD UA w/Reflex Cultureon 2023 Bilirubin, SemiQt,Ur Negative Abnormal NEG [facility] Comment on above: Performed By: #### U AX, UHCG, UMICAO #### [address] [address] [place] Working Supervisor: Wan Morales MD Blood, Urine LARGE Abnormal NEG [facility] Comment on above: Performed By: #### U AX, UHCG, UMICAO #### [address] [address] [place] Working Supervisor: Wan Morales MD Clarity (U) SLIGHTLY CLOUDY Abnormal CLEAR [facility] Comment on above: Performed By: #### U AX, UHCG, UMICAO #### [address] [address] [place] Working Supervisor: Wan Morales MD Color (U) Red Abnormal YEL [facility] Comment on above: Performed By: #### U AX, UHCG, UMICAO #### [place] [address] Shore Working Supervisor: Wan Morales MD Comment INTERPRET WITH CAUTION DUE TO INTENSE COLOR OF URINE. Normal [facility] Comment on above: Performed By: #### U AX, UHCG, UMICAO #### [address] [address] [place] Working Supervisor: Wan Morales MD Glucose Ql (U) Negative Normal NEG [facility] Comment on above: Performed By: #### U AX, UHCG, UMICAO #### [address] [address] [place] Working Supervisor: Wan Morales MD Ketones Ql (U) Negative Normal NEG [facility] Comment on above: Performed By: #### U AX, UHCG, UMICAO #### [address] [address] [place] Working Supervisor: Wna Morales MD Leukocyte esterase Test strip Ql (U) MODERATE Abnormal NEG [facility] Comment on above: Performed By: #### U AX, UHCG, UMICAO #### [address] [place] [address] Shore Working Supervisor: Wan Morales MD Nitrite,Ur Positive Abnormal NEG [facility] Comment on above: Performed By: #### U AX, UHCG, UMICAO #### [place] [address] Shore Working Supervisor: Wan Morales MD PH,Ur 7.0 Normal 5.0-8.0 [facility] Comment on above: Performed By: #### U AX, UHCG, UMICAO #### [place] [address] Shore Working Supervisor: Wan Morales MD Protein Ql (U) 3+ mg/dL Abnormal NEG [facility] Comment on above: Performed By: #### U AX, UHCG, UMICAO #### [place] [address] Shore Working Supervisor: Wan Morales MD Spec. Brandon,Ur 1.010 Normal 1.005-1.030 [facility] Comment on above: Performed By: #### U AX, UHCG, UMICAO #### [place] [address] Shore Working Supervisor: Wan Morales MD Urobilinogen,Ur Normal Normal 0.0-1.0 [facility] Comment on above: Performed By: #### U AX, UHCG, UMICAO #### [place] [address] [place] Working Supervisor: Wan Morales MD Urinalysis,Microon 4 Bacteria MODERATE Abnormal NONE [facility] Comment on above: Performed By: #### U AX, UHCG, UMICAO #### [place] [address] Shore Working Supervisor: Wan Morales MD Epithelial cells LM Ql (Urine sed) 5 TO 10 Normal 0-5 [facility] Comment on above: Performed By: #### U AX, UHCG, UMICAO #### [place] [address] [place] Working Supervisor: Wan Morales MD Other Observations Culture ordered base d on defined criteria. Abnormal NREQ [facility] Comment on above: Performed By: #### U AX, UHCG, UMICAO #### [place] [address] Shore Working Supervisor: Wan Morales MD Urine RBC's TOO NUMEROUS TO COUNT Normal 0-2 [facility] Comment on above: Performed By: #### U AX, UHCG, UMICAO #### [place] [address] [place] Working Supervisor: Wan Morales MD Urine WBC's TOO NUMEROUS TO COUNT Normal 0-5 [facility] Comment on above: Performed By: #### U AX, UHCG, UMICAO #### [place] [address] Shore Working Supervisor: Wan Morales MD US RENAL COMPLETEon 06-21-19 [...] Sri Galeas MD 06/20/21 Final result Normal [facility] 1. Nonobstructing left renal stones measuring up to 5 mm. 2. No hydronephrosis. [facility] EXAMINATION: RETROPERITONEAL ULTRASOUND OF THE KIDNEYS [...] the bladder. No significant post void residual. [facility] Sri Galeas MD - 06/20/2021 EXAMINATION: [...] up to 5 mm. 2. No hydronephrosis. [employer] Phone: US RENAL COMPLETEOrdered By: Sri Galeas on 06-20-2021 [employer] Phone: US RENAL COMPLETEon 06-20-19 Radiology Study observation (narrative) [employer] Phone: XR ABDOMEN (KUB) (SINGLE AP VIEW)on [...] by: See Herrera 06/19/21 Final result Normal [facility] No definite evidence of renal or ureteral stones. [facility] EXAM[facility]ATION: ONE SUPINE XRAY VIEW(S) OF [...] urine collecting system. Osseous structures are normal. [facility] See Herrera - 06/19/2021 EXAMINATION: ONE [...] definite evidence of renal or ureteral stones. [employer] Phone: Radiology Study observation (narrative) [employer] Phone: XR ABDOMEN (KUB) (SINGLE AP VIEW)Ordered By: See Herrera on 06-19-2021 [employer] Phone: Cult,Urineon 06-14-2021 Cult,Urine Specimen Description .VOIDED URINE Culture NO SIGNIFICANT GROWTH Report Status FINAL 06/14/2021 Normal [facility] Comment on above: Performed By: #### U #### [employer] [address] [place], [place] [id number] [place] Working Supervisor: Moisés Carl MD [facility] [address] [place] [address] [place] [address] [place] Working Supervisor: Filemon Gutiérrez MD Urinalysis w/ Microon 2021 ----- Normal [facility] Comment on above: Performed By: #### U AMIC #### [facility] [address] [place] [address] [place]. [place], [place] [id number] [place] Working Supervisor: Filemon Gutiérrez MD Epithelial cells LM Ql (Urine sed) 2 TO 5 Normal 0-25 [facility] Comment on above: Performed By: #### U AMIC #### [facility] [address] [place] [address] Dr. [place], [place] [id number] [place] Working Supervisor: Filemon Gutiérrez MD Urine RBC's 0 TO 2 Normal 0-2 [facility] Comment on above: Performed By: #### U AMIC #### [facility] [address] [place] [address] Dr. [place], [place] [phone] [place] Working Supervisor: Filemon Gutiérrez MD Urine WBC's 0 TO 2 Normal 0-5 [facility] Comment on above: Performed By: #### U AMIC #### [facility] [address] [place] [address] Dr. [place], [place] [phone] [place] Working Supervisor: Filemon Gutiérrez MD Bilirubin, SemiQt,Ur Negative Normal NEG [facility] Comment on above: Performed By: #### U AMIC #### [facility] [address] [place] [address] [place]. [place], [place] [phone] [place] Working Supervisor: Filemon Gutiérrez MD Blood, Urine Negative Normal NEG [facility] Comment on above: Performed By: #### U AMIC #### [facility] [address] [place], [place] [phone] [place] Working Supervisor: Filemon Gutiérrez MD Clarity (U) Clear Normal CLEAR [facility] Comment on above: Performed By: #### U AMIC #### [facility] [address] [place] [address] Dr. [place], [place] [phone] [place] Working Supervisor: Filemon Gutiérrez MD Color (U) Yellow Normal YEL [facility] Comment on above: Performed By: #### U AMIC #### [facility] [address] [place] [address] Dr. [place], [place] [phone] [place] Working Supervisor: Filemon Gutiérrez MD Glucose Ql (U) Negative Normal NEG [facility] in Hospital Comment on above: Performed By: #### U AMIC #### [facility] [address] [place] [address] Dr. [place], [place] [phone] [place] Working Supervisor: Filemon Gutiérrez MD Ketones Ql (U) Negative Normal NEG [facility] in Hospital Comment on above: Performed By: #### U AMIC #### [facility] [address] [place] [address] Dr. [place], [place] [phone] [place] Working Supervisor: Filemon Gutiérrez MD Leukocyte esterase Test strip Ql (U) Negative Normal NEG [facility] Comment on above: Performed By: #### U AMIC #### [address] [place], [place] [phone] [place] Working Supervisor: Filemon Gutiérrez MD Nitrite,Ur Negative Normal [facility] Comment on above: Performed By: #### U AMIC #### [facility] [address] [place] [address] Dr. [place], [place] [phone] [place] Working Supervisor: Filemon Gutiérrez MD PH,Ur 7.0 Normal 5.0-9.0 [facility] Comment on above: Performed By: #### U AMIC #### [facility] [address] [place] [address] Dr. [place], [place] [phone] [place] Working Supervisor: Filemon Gutiérrez MD Protein Ql (U) Negative Normal NEG [facility] in Hospital Comment on above: Performed By: #### U AMIC #### [facility] [address] [place] [address] [place] [place], [place] [phone] Shore Working Supervisor: Filemon Gutiérrez MD Spec. Brandon,Ur 1.010 Normal 1.010-1.020 [facility] Comment on above: Performed By: #### U AMIC #### [facility] [address] [place], [place] [phone] [place] Working Supervisor: Filemon Gutiérrez MD Urobilinogen,Ur Normal Normal NORM [facility] Comment on above: Performed By: #### U AMIC #### [facility] [address] [place] [address] [place] Working Supervisor: Filemon Gutiérrez MD Urinalysis with Microscopico n 06-12-2021 - [facility] Bilirubin [facility] Color, UA Yellow Yellow [facility] Epithelial Cells UA 2 TO 5 [facility] Glucose, Ur Negative NEGATIVE [facility] Ketones Ql (U) Negative NEGATIVE [facility] Leukocyte esterase Test strip Ql (U) Negative NEGATIVE [facility] Nitrite, Urine Negative NEGATIVE [facility] pH, UA 7.0 [facility] Protein, UA Negative NEGATIVE [facility] RBC, UA 0 TO 2 [facility] Specific Brandon, UA 1.010 [facility] Turbidity UA Clear Clear [facility] Urine Hgb Negative NEGATIVE [facility] Urobilinogen, Urine Normal Normal [facility] WBC, UA 0 TO 2 [facility] PAP ACOG PANEL 2: 21 to 31on 05-25-[address] [facility] Comment on above: Performed By: #### [id number] #### [facility] [address] [place] [address] Age Gdln ACOG Testing 21-29 [facility] Comment on above: Performed By: #### 4 [id number] #### [facility] [address] [place] [address] DIAGNOSIS: Comment [facility] Comment on above: Result Comment: NEGA TIVE FOR INTRAEPITHELIAL LESION OR MALIGNANCY. Performed By: #### 4 [id number] #### [facility] [address] [address] Methodology: Comment Normal [facility] Comment on above: Result Comment: This liquid based ThinPrep(R) pap test was screened with the use of an image guided system. Performed By: #### 4 [id number] #### [facility] [address] [place] [address] Note: Comment Normal [facility] Comment on above: Result Comment: The Pap smear is a screening test designed to aid in the detection of premalignant and malignant conditions of the uterine cervix. It is not a diagnostic procedure and should not be used as the sole means of detecting cervical cancer. Both false-positive and false-negative reports do occur. . Performed By: #### [id number] #### [facility] [address] [place] [address] Performed by: Comment Normal [facility] Comment on above: Result Comment: Mariia Negron Industrial Economics Professor (ASCP) Performed By: #### [id number] #### [facility] [address] [place] [address] Reflex Criteria: Comment Normal [facility] Comment on above: Result Comment: The HPV DNA reflex criteria were not met with this specimen result therefore, no HPV testing was performed. . Performed By: #### [id number] #### [facility] [address] [place] [address] Specimen adequacy: Comment Normal [facility] Comment on above: Result Comment: Sati sfactory for evaluation. Endocervical and/or squamous metaplastic cells (endocervical component) are present. Performed By: #### 4 [id number] #### [facility] [address] [place] [address] Vital Signs Date Time Vital Sign Value Performing Clinician Facility 08-18-2024 13:39-0400 Body mass index (BMI) [Ratio] 22.87 kg/m2 [facility] Nurse [facility] 08-18-2024 13:39-0400 Body weight 66.22 kg [facility] Nurse [facility] 08-18-2024 13:39-0400 Diastolic blood pressure 68 mm[Hg] [facility] Nurse [facility] 08-18-2024 13:39-0400 Systolic blood pressure 118 mm[Hg] [facility] Nurse [facility] 07-18-2024 08:15-0400 Body height 170.2 cm Sri Ramírez MD Work Phone: [facility] 07-18-2024 08:15-0400 Body mass index (BMI) [Ratio] 23.05 kg/m2 Sri Ramírez MD Work Phone: [facility] 07-18-2024 08:15-0400 Body weight 66.77 kg Sri Ramírez MD Work Phone: [facility] 07-18-2024 08:15-0400 Diastolic blood pressure 70 mm[Hg] Sri Ramírez MD Work Phone: [facility] 07-18-2024 08:15-0400 Heart rate 92 /min Sri Ramírez MD Work Phone: [facility] 07-18-2024 08:15-0400 Respiratory rate 18 /min Sri Ramírez MD Work Phone: [facility] 07-18-2024 08:15-0400 SaO2% (BldA) [Mass fraction] 99 % Sri Ramírez MD Work Phone: [facility] 07-18-2024 08:15-0400 Systolic blood pressure 122 mm[Hg] Sri Ramírez MD Work Phone: [facility] 06-10-2024 08:03-0500 Body mass index (BMI) [Ratio] 22.96 kg/m2 Reggie Suh CERTIFIED PERSONAL CHEF Work Phone: [facility] 06-10-2024 08:03-0500 Body temperature 95 [degF] Reggie Suh CERTIFIED PERSONAL CHEF Work Phone: [facility] 06-10-2024 08:03-0500 Body weight 66.5 kg Reggie Suh CERTIFIED PERSONAL CHEF Work Phone: [facility] 06-10-2024 08:03-0500 Diastolic blood pressure 78 mm[Hg] Reggie Suh CERTIFIED PERSONAL CHEF Work Phone: [facility] 06-10-2024 08:03-0500 Heart rate 96 /min Reggie Suh CERTIFIED PERSONAL CHEF Work Phone: [facility] 06-10-2024 08:03-0500 SaO2% (BldA) [Mass fraction] 98 % Reggie Suh CERTIFIED PERSONAL CHEF Work Phone: [facility] 06-10-2024 08:03-0500 Systolic blood pressure 122 mm[Hg] Reggie Suh CERTIFIED PERSONAL CHEF Work Phone: [facility] 05-23-2024 09:03-0500 Body mass index (BMI) [Ratio] 22.57 kg/m2 Daja [place] PA Work Phone: [facility] 05-23-2024 09:03-0500 Body weight 65.37 kg Daja [place] PA Work Phone: [facility] 05-23-2024 09:03-0500 Diastolic blood pressure 74 mm[Hg] Daja Connor PA Work Phone: [facility] 05-23-2024 09:03-0500 Systolic blood pressure 118 mm[Hg] Daja [place] PA Work Phone: [facility] 04-20-2024 14:37-0500 Body mass index (BMI) [Ratio] 22.57 kg/m2 Jose Maxim DO Work Phone: [facility] 04-20-2024 14:37-0500 Body weight 65.37 kg Jose Maxim DO Work Phone: [facility] 04-20-2024 14:37-0500 Diastolic blood pressure 68 mm[Hg] Jose Maxim DO Work Phone: [facility] 04-20-2024 14:37-0500 Systolic blood pressure 106 mm[Hg] Jose Maxim DO Work Phone: [facility] 03-09-2024 11:20-0500 Body mass index (BMI) [Ratio] 22.55 kg/m2 Jose Maxim DO Work Phone: [facility] 03-09-2024 11:20-0500 Body weight 65.32 kg Jose Maxim DO Work Phone: [facility] 03-09-2024 11:20-0500 Diastolic blood pressure 70 mm[Hg] Jose Maxim DO Work Phone: [facility] 03-09-2024 11:20-0500 Systolic blood pressure 114 mm[Hg] Jose Maxim DO Work Phone: [facility] 03-01-2024 10:47-0500 Blood Pressure Location Bonita Orzech [facility] 03-01-2024 10:47-0500 Diastolic blood pressure 66 mm[Hg] Bonita Orzech [facility] 03-01-2024 10:47-0500 Heart rate 79 /min Bonita Orzech [facility] 03-01-2024 10:47-0500 Respiratory rate 19 /min Bonita Orzech [facility] 03-01-2024 10:47-0500 Systolic blood pressure 102 mm[Hg] Bonita Orzech [facility] 02-15-2024 11:11-0500 Body mass index (BMI) [Ratio] 22.4 kg/m2 Jose Maxim DO Work Phone: [facility] 02-15-2024 11:11-0500 Body weight 64.86 kg Jose Maxim DO Work Phone: [facility] 02-15-2024 11:11-0500 Diastolic blood pressure 70 mm[Hg] Jose Maxim DO Work Phone: [facility] 02-15-2024 11:11-0500 Systolic blood pressure 110 mm[Hg] Jose Maxim DO Work Phone: [facility] 01-27-2024 14:13-0400 Body mass index (BMI) [Ratio] 22.08 kg/m2 Daja Epperson ALISA Work Phone: [facility] 01-27-2024 14:13-0400 Body weight 63.96 kg Daja Epperson PA Work Phone: [facility] 01-27-2024 14:13-0400 Diastolic blood pressure 68 mm[Hg] Daja Epperson ALISA Work Phone: [facility] 01-27-2024 14:13-0400 Systolic blood pressure 110 mm[Hg] Daja Epperson PA Work Phone: [facility] 01-11-2024 11:52-0400 Body mass index (BMI) [Ratio] 22.42 kg/m2 Joes Maxim DO Work Phone: [facility] 01-11-2024 11:52-0400 Body weight 64.92 kg Jose Maxim DO Work Phone: [facility] 01-11-2024 11:52-0400 Diastolic blood pressure 72 mm[Hg] Jose Maxim DO Work Phone: [facility] 01-11-2024 11:52-0400 Systolic blood pressure 108 mm[Hg] Jose Maxim DO Work Phone: [facility] Healthcare Encounters Encounter Date Encounter Type Care Provider Facility Start: 08-18-2024 End: 08-18-2024 ambulatory DAJA EPPERSON Not Available Start: 08-18-2024 End: 08-18-2024 Office outpatient visit 5 minutes [facility] Maxim Nurse [facility] Comment on above: GA: [id number] Start: 08-18-2024 End: 08-18-2024 ambulatory DAJA CONNOR Not Available Start: 08-12-2024 End: 08-13-2024 Clinisync Result Encounter Generic External Data Provider [facility] External Department Unsolicited Start: 08-12-2024 End: 08-15-2024 Clinisync Result Encounter Generic External Data Provider [facility] External Department Unsolicited Start: 08-12-2024 End: 08-15-2024 External Result Encounter Daja Connor PA Work Phone: [facility] External Department Unsolicited Start: 08-02-2024 ambulatory Bonita X Orzech Facilit y:[facility] Ty[facility] Start: 08-01-2024 End: 08-01-2024 ambulatory JONAH GOMEZ Facility: [facility] Start: 07-20-2024 End: 07-20-2024 ambulatory SRI RAMÍREZ Not Available Start: 07-18-2024 End: 07-18-2024 Bamboo flowsheet Sri Ramírez MD Work Phone: [facility] Start: 07-18-2024 End: 07-18-2024 Bamboo flowsheet Sri Ramírez MD Work Phone: [facility] Start: 07-18-2024 End: 07-18-2024 Office outpatient visit 15 minutes Sri Ramírez MD Work Phone: [facility] Comment on above: Mass of lower outer quadrant of left breast (Primary Dx) Start: 07-18-2024 End: 07-18-2024 ambulatory SRI RAMÍREZ Not Available Start: 06-10-2024 End: 06-10-2024 Bamboo flowsheet Reggiemane Suh CERTIFIED PERSONAL CHEF Work Phone: [facility] Start: 06-10-2024 End: 06-10-2024 Bamboo flowsheet Reggie Majors CERTIFIED PERSONAL CHEF Work Phone: [facility] Start: 06-10-2024 End: 06-10-2024 Telephone encounter Sri Ramírez MD Work Phone: [facility] Start: 06-10-2024 End: 06-10-2024 Office outpatient visit 25 minutes Reggie Suh CERTIFIED PERSONAL CHEF Work Phone: [facility] Comment on above: Encounter for remova l of sutures (Primary Dx); Cellulitis of finger of right hand Start: 06-10-2024 End: 06-10-2024 ambulatory REGGIE MAJORS Not Available Start: 05-23-2024 End: 05-23-2024 Bamboo flowsheet Daja CUELLAR Work Phone: [facility] Start: 05-23-2024 End: 05-23-2024 Bamboo flowsheet Daja CUELLAR Work Phone: [facility] Start: 05-23-2024 ambulatory JONAH GOMEZ Facili ty:[facility] Start: 05-23-2024 End: 05-23-2024 ambulatory DAJA EPPERSON Not Available Start: 05-23-2024 End: 05-23-2024 Office outpatient visit 15 minutes Daja CUELLAR Work Phone: [facility] Comment on above: Vaginal discharge; Vaginal burning Start: 05-16-2024 End: 05-16-2024 ambulatory JONAH GOMEZ Facility:[facility] Start: 05-16-2024 End: 05-16-2024 Patient encounter procedure JONAH GOMEZ [facility] Start: 04-20-2024 End: 04-20-2024 Bamboo flowsheet Daja [...] Unsolicited Start: 03-21-2024 End: 03-21-2024 ambulatory Mitra Ellis Facility:[facility] Start: 03-21-2024 End: 03-21-2024 Lab Drop off Mitra Ellis [facility] Start: 03-21-2024 End: 03-21-2024 ambulatory Bonita X Orzech Facility:[facility] Start: 03-21-2024 End: 03-21-2024 Patient encounter procedure Bonita X Orzech [facility] Start: 03-09-2024 End: 03-09-2024 Bamboo flowsheet Jose Maxim DO Work Phone: [facility] Start: 03-09-2024 End: 03-09-2024 Bamboo flowsheet Jose Maxim DO Work Phone: [facility] Start: 03-09-2024 End: 03-09-2024 Office outpatient visit 15 minutes Jose Maxim DO Work Phone: [facility] Comment on above: Pre-op evaluation; Pelvic pain in female; Bacterial vaginosis Start: 03-09-2024 End: 03-09-2024 Preprocedural examination done Jose Maxim DO Work Phone: [facility] Start: 03-09-2024 End: 03-09-2024 ambulatory JOSE MAXIM Not Available Start: 03-01-2024 End: 03-01-2024 ambulatory Bonita X Orzech Facility:[facility] Start: 03-01-2024 End: 03-01-2024 Patient encounter procedure Bonita X Orzech [facility] Start: 02-15-2024 End: 02-15-2024 Bamboo flowsheet Jose Maxim DO Work Phone: [facility] Start: 02-15-2024 End: 02-15-2024 Bamboo flowsheet Ojse Maxim DO Work Phone: [facility] Start: 02-15-2024 End: 02-15-2024 Office outpatient visit 15 minutes Jose Maxim DO Work Phone: [facility] Comment on above: Bacterial vaginosis; Urinary tract infection without hematuria, site unspecified; Vaginal odor; Bacterial infection due to mycoplasma Start: 02-15-2024 End: 02-15-2024 ambulatory JOSE MAXIM Not Available Start: 01-27-2024 End: 01-27-2024 Bamboo flowsheet Daja CUELLAR Work Phone: [facility] Start: 01-27-2024 End: 02-02-2024 Bamboo flowsheet Daja CUELLAR Work Phone: [facility] Start: 01-27-2024 End: 02-02-2024 Clinisync Result Encounter Generic External Data Provider [facility] External Department Unsolicited Start: 01-27-2024 End: 01-27-2024 Patient encounter procedure Daja CUELLAR Work Phone: [facility] Work Phone: Start: 01-27-2024 End: 01-27-2024 Periodic preventive med est patient 18-39 yrs Daja CUELLAR Work Phone: [facility] Comment on above: Well woman exam with routine gynecological exam Start: 01-27-2024 End: 01-27-2024 ambulatory DAJA EPPERSON Not Available Start: 01-11-2024 End: 01-11-2024 Bamboo flowsheet Jose Maxim DO Work Phone: [facility] Start: 01-11-2024 End: 01-13-2024 External Result Encounter Jose Maxim DO Work Phone: [facility] Unsolicited Start: 01-11-2024 End: 01-13-2024 External Result Encounter Jose Maxim DO Work Phone: [facility] External Department Unsolicited Start: 01-11-2024 End: 01-11-2024 ambulatory JOSE MAXIM Not Available Start: 01-11-2024 End: 01-11-2024 Office outpatient visit 15 minutes Jose Maxim DO Work Phone: [facility] Comment on above: Pelvic pain in femal e Start: 11-16-2023 End: 11-16-2023 ambulatory ELVIE Evans SHARIFA-NOSSEK Not Available Start: 10-21-2023 End: 10-21-2023 ambulatory ELVIE GRIER-NOSSEK Not Available Start: 10-21-2023 End: 10-21-2023 ambulatory SRI RAMÍREZ Not Available Start: 09-28-2023 End: 09-28-2023 ambulatory ALEXIS DONG Not Available Start: 09-22-2023 End: 09-22-2023 Emergency department patient visit SRI ASTUDILLOER [facility] Start: 05-03-2022 End: 05-03-[address] SRI RAMÍREZ Facility:[facility] Start: 06-19-2021 End: 06-22-2021 ambulatory JASON Driscoll [facility] Start: 06-19-2021 End: 06-21-2021 Subsequent hospital visit by physician Juan Miguel Wilcox [address] [place] [address] Radiology Comment on above: Ureteral stone with hydronephrosis Ureteral stone with hydronephrosis; Suprapubic pain; Dysuria; Urgency of urination Start: 06-12-2021 End: 06-13-2021 ambulatory JASON Americo FABIAN [facility] Start: 06-12-2021 End: 06-12-2021 Subsequent hospital visit by physician Sri Ramírez MD Work Phone: [facility] Laboratory Comment on above: Ureteral stone with hydronephrosis; Suprapubic pain; Dysuria; Urgency of urination Start: 05-21-2021 End: 05-21-[address] JOSE PAN Facility:[facility] Procedures Date Procedure Procedure Detail Performing Clinician Start: 08-18-2024 Urnls dip stick/tabl et rgnt non-auto w/o micrscp Jose Pan DO Work Phone: Start: 08-12-2024 Culture bacterial quanttative colony count urine Daja CUELLAR Work Phone: Start: 08-12-2024 URINE CULTURE - [facility] External Data Provider Start: 04-01-2024 ALL CBC WITH AUTO DIFF Jose Chacono DO Work Phone: Start: 02-15-2024 Urnls dip stick/tabl et rgnt non-auto w/o micrscp Jose Maxim DO Work Phone: Start: 01-27-2024 IGP,APTIMA HPV,AGE GDLN Daja Epperson PA Work Phone: Start: 01-27-2024 Cytp cerv/vag auto t hin layer prep mnl screen Josematthieu Chacono DO Work Phone: Start: 01-11-2024 URINARY TRACT INFECT ION (HTRX) Josematthieu Chacono DO Work Phone: Start: 01-11-2024 End: 01-11-2024 Urnls dip stick/tablet rgnt non-auto w/o micrscp Jose Maxim DO Work Phone: Start: 06-19-2021 Radiologic exam abdo men 1 view Jason Fabian [employer] WORK[employer] - [employer] Work Phone: Start: 06-19-2021 Us retroperitoneal r eal time w/image complete Jason Fabian [employer] WORKER - [employer] Work Phone: Start: 06-12-2021 Urnls dip stick/tabl et reagent auto microscopy Jason Fabian [employer]FF WORKER - [employer] Work Phone: Start: 04-13-2014 Lithotripsy Bonita Orz ech Plan of Treatment Date Care Activity Detail Author Start: 06-24-2030 DTaP/Tdap/Td vaccine (8 - Td or Tdap) DTaP/Tdap/Td vaccine (8 - Td or Tdap) [facility] Start: 02-06-2025 End: 02-06-2025 Patient encounter procedure 02/06/2025 11:00 AM EDT Office Visit [facility] [address] [place] [address] Jose Pan [address] [place] [address] [facility] Start: 12-12-2024 Influenza vaccination Influenz a Vaccine (Season Ended) [facility] Start: 09-14-2024 End: 09-14-2024 Patient encounter procedure 09/14/2024 1:40 PM EDT Routine [address] [place] [address] Jose Pan, [address] [place] [address] [facility] Start: 08-18-2024 End: 08-18-2025 ABO/Rh ABO/Rh Lab Routine Missed menses , unspecified gestational age Expected: 08/18/2024 (Approximate), Expires: 08/18/2025 [facility] Comment on above: Expected: 08/18/2024 (Approximate), Expires: 08/18/2025 Start: 08-18-2024 End: 08-18-2025 Blood type and Indirect antibody screen panel - Blood Type and screen Lab Routine Missed menses , unspecified gestational age Expected: 08/18/2024 (Approximate), Expires: 08/18/2025 [facility] Work Phone: Comment on above: Expected: 08/18/2024 (Approximate), Expires: 08/18/2025 Start: 08-18-2024 End: 08-18-2025 Drugs of abuse panel - Urine by Screen method Rapid drug screen, urine Lab Routine , unspecified gestational age Encounter for supervision of normal first in first trimester Expected: 08/18/2024 (Approximate), Expires: 08/18/2025 [facility] Comment on above: Expected: 08/18/2024 (Approximate), Expires: 08/18/2025 Start: 08-18-2024 End: 08-18-2024 ambulatory 08/18/2024 1:00 PM EDT Initial [facility] [address] [place] [address] [facility] Start: 08-18-2024 End: 08-18-2024 Professional / ancillary services management 08/18/2024 12:30 PM EDT Ancillary Procedure [facility] [address] [place] [phone] [facility] Start: 07-20-2024 End: 07-20-2024 Professional / ancillary services management 07/20/2024 3:30 PM EDT Ancillary Procedure [facility] [address] [place] [id number] [facility] Start: 07-18-2024 End: 09-17-2025 US Breast - left Left breast US complete Imaging Routine Mass of lower outer quadrant of left breast Expected: 07/18/2024, Expires: 09/17/2025 [facility] Work Phone: Comment on above: Expected: 07/18/2024 , Expires: 09/17/2025 Start: 07-18-2024 End: 07-18-2024 Patient encounter procedure 07/18/2024 8:20 AM EDT Office Visit [facility] [address] [facility] [place] [phone] Sri Ramírez MD [address] [facility] [place] [address] Arrived [facility] Comment on above: Arrived Start: 06-10-2024 End: 06-10-2024 Patient encounter procedure 06/10/2024 8:00 AM EST Office Visit [facility] [address] [facility] [place] [phone] Reggie Suh NP [address] [facility] [place] [address] Arrived [facility] Comment on above: Arrived Start: 04-20-2024 End: 04-20-2024 Patient encounter procedure 04/20/2024 8:50 AM EST Office Visit [facility] [address] [place] [phone] Daja Epperson, ALISA [address] [place], [place] [phone] Arrived [facility] Comment on above: Arrived Start: 03-09-2024 End: 03-09-2024 Patient encounter procedure 03/09/2024 11:20 AM EST Consult [facility] [address] [place] [address] Jose Pan, DO [address] [place], [place] [phone] Arrived [facility] Comment on above: Arrived Start: 02-15-2024 End: 02-15-2024 Patient encounter procedure [facility] Comment on above: Arrived Start: 02-03-2024 End: 02-03-2024 Professional / ancillary services management 02/03/2024 10:30 AM EDT Ancillary Procedure [facility] [address] [place] [address] [facility] Start: 01-27-2024 End: 01-27-2024 Patient encounter procedure [facility] Comment on above: Arrived Start: 01-20-2024 End: 01-20-2024 Professional / ancillary services management 01/20/2024 8:30 AM EDT Ancillary Procedure [facility] [address] [place] [address] [facility] Start: 01-11-2024 End: 01-10-2025 SURESWAB(R) ADVANCED VAGINITIS PLUS, TMA SURESWAB(R) ADVANCED VAGINITIS PLUS, TMA Pathology and Cytology Routine Pelvic pain in female Expected: 01/11/2024 (Approximate), Expires: 01/10/2025 [facility] Work Phone: Comment on above: Expected: 01/11/2024 (Approximate), Expires: 01/10/2025 Start: 01-11-2024 End: 01-10-2025 US for US PELVIS-TRANSVAG IF INDICATED Imaging Routine Pelvic pain in female Expected: 01/11/2024 (Approximate), Expires: 01/10/2025 [facility] Comment on above: Expected: 01/11/2024 (Approximate), Expires: 01/10/2025 Start: 12-13-2023 Influenza vaccination Influenza Vacc ine (#1) [facility] Start: 06-27-2021 End: 06-27-2021 Patient encounter procedure 06/27/2021 Office Visit Urology Jason Fabian, SOC[employer] STAFF WORKER - [employer] [address] [facility] [address] [place] [phone] [facility] Start: 06-19-2021 End: 06-19-2021 Patient encounter procedure 06/19/2021 Appointment Radiology [facility]trasound Start: 03-04-2021 COVID-19 Vaccine (3 - Booster for Pfizer series) COVID-19 Vaccine (3 - Booster for Pfizer series) [facility] Start: 12-12-2020 Influenza vaccination Flu vaccine (# 1) [facility] Start: 2018 Screening for malign ant neoplasm of cervix Pap smear [facility] Start: 2013 Screening for Chlamy stan trachomatis Chlamydia screen [facility] Start: 02-11-2012 HIV screening HIV screen [facility] Start: 2009 Depression Screen Depression Screen [facility] Start: 2003 Pneumococcal 0-64 ye ars Vaccine (1 of 2 - PPSV23) Pneumococcal 0-64 years Vaccine (1 of 2 - PPSV23) [facility] Start: 1998 Varicella vaccine (1 of 2 - 2-dose childhood series) Varicella vaccine (1 of 2 - 2-dose childhood series) [facility] Start: 1997 Hepatitis C screening Hepatitis C sc [facility] Bacteria identified in Urine by Culture Urine culture Microbiology Routine Pelvic pain in female Ordered: 01/11/2024 [facility] Comment on above: Ordered: 01/11/2024 Bacteria identified in Urine by Culture Urine culture Microbiology Routine 08/12/2024 8:15 PM EDT [facility] Work Phone: Bacteria identified in Urine by Culture Urine culture Microbiology Routine Missed menses Ordered: 08/18/2024 [facility] Comment on above: Ordered: 08/18/2024 CBC W Auto Different ial panel - Blood CBC and differential Lab Routine Missed menses , unspecified gestational age Ordered: 08/18/2024 [facility] Comment on above: Ordered: 08/18/2024 CHLAMYDIA TRACHOMATI S (GENITO/STI) CHLAMYDIA TRACHOMATIS (GENITO/STI) Lab Routine Vaginal odor Ordered: 02/15/2024 [facility] Comment on above: Ordered: 02/15/2024 CHLAMYDIA TRACHOMATI S (GENITO/STI) CHLAMYDIA TRACHOMATIS (GENITO/STI) Lab Routine Pelvic pain in female Ordered: 01/11/2024 [facility] Comment on above: Ordered: 01/11/2024 CHLAMYDIA TRACHOMATI S (GENITO/STI) CHLAMYDIA TRACHOMATIS (GENITO/STI) Lab Routine Vaginal discharge Vaginal burning Ordered: 05/23/2024 [facility] Comment on above: Ordered: 05/23/2024 End: 06-12-2021 Culture, Urine [facility] [employer] Work Phone: Comment on above: 1 Occurrences starti ng 06/12/2021 until 06/12/2021 Cytology Cervical or vaginal smear or scraping study Pap Smear Pathology and Cytology Routine Well woman exam with routine gynecological exam Ordered: 01/27/2024 [facility] Work Phone: Comment on above: Ordered: 01/27/2024 Hemoglobin A1c/Hemoglobin.total in Blood Hemoglobin A1c Lab Routine Missed menses , unspecified gestational age Ordered: 08/18/2024 [facility] Comment on above: Ordered: 08/18/2024 Hepatitis B virus surface Ag [Presence] in Serum or Plasma by Immunoassay Hepatitis B surface antigen Lab Routine Missed menses , unspecified gestational age Ordered: 08/18/2024 [facility] Comment on above: Ordered: 08/18/2024 Hepatitis C virus Ab [Presence] in Serum or Plasma by Immunoassay Hepatitis C antibody Lab Routine Missed menses , unspecified gestational age Ordered: 08/18/2024 [facility] Comment on above: Ordered: 08/18/2024 HIV-1/HIV-2 antigen/antibody combination immunoassay HIV-1 and HIV-2 antibodies Lab Routine Missed menses , unspecified gestational age Ordered: 08/18/2024 [facility] Comment on above: Ordered: 08/18/2024 Neisseria gonorrhoea e DNA [Presence] in Unspecified specimen by REKHA with probe detection Neisseria gonorrhea DNA probe, direct Lab Routine Vaginal odor Ordered: 02/15/2024 [facility] Comment on above: Ordered: 02/15/2024 Neisseria gonorrhoea e DNA [Presence] in Unspecified specimen by REKHA with probe detection Neisseria gonorrhea DNA probe, direct Lab Routine Pelvic pain in female Ordered: 01/11/2024 [facility] Comment on above: Ordered: 01/11/2024 Neisseria gonorrhoea e DNA [Presence] in Unspecified specimen by REKHA with probe detection Neisseria gonorrhea DNA probe, direct Lab Routine Vaginal discharge Vaginal burning Ordered: 05/23/2024 [facility] Comment on above: Ordered: 05/23/2024 Reagin Ab [Presence] in Serum by RPR RPR Lab Routine Missed menses , unspecified gestational age Ordered: 08/18/2024 [facility] Comment on above: Ordered: 08/18/2024 Rubella antibody, IgG Rubella an tibody, IgG Lab Routine Missed menses , unspecified gestational age Ordered: 08/18/2024 [facility] Comment on above: Ordered: 08/18/2024 SURESWAB(R) ADVANCED VAGINITIS PLUS, TMA SURESWAB(R) ADVANCED VAGINITIS PLUS, TMA Pathology and Cytology Routine Bacterial vaginosis Vaginal odor Ordered: 02/15/2024 [facility] Work Phone: Comment on above: Ordered: 02/15/2024 SURESWAB(R) ADVANCED VAGINITIS PLUS, TMA SURESWAB(R) ADVANCED VAGINITIS PLUS, TMA Pathology and Cytology Routine Vaginal discharge Vaginal burning Ordered: 05/23/2024 [facility] Work Phone: Comment on above: Ordered: 05/23/2024 URINE CULTURE - [facility] [place] URINE CULTU RE - [facility] [place] Lab Routine 08/12/2024 8:15 PM EDT [facility] Immunizations Immunization Date Immunization Notes Care Provider Kinza lawton 06-24-2020 diphtheria, tetanus toxoids and pertussis vaccine [facility] [employer] Work Phone: [facility] 06-04-2010 human papilloma viru s vaccine, quadrivalent Jose Maxim DO Work Phone: [facility] 02-05-2010 human papilloma viru s vaccine, quadrivalent Jose Maxim DO Work Phone: [facility] 11-26-2009 human papilloma viru s vaccine, quadrivalent Jose Maxim DO Work Phone: [facility] 11-26-2009 tetanus toxoid, redu riky diphtheria toxoid, and acellular pertussis vaccine, adsorbed Jose Maxim DO Work Phone: [facility] 10-27-2002 diphtheria, tetanus toxoids and acellular pertussis vaccine, unspecified formulation Jose Maxim DO Work Phone: [facility] Work Phone: 10-27-2002 measles, mumps and rubella virus vaccine Jose Maxim DO Work Phone: [facility] 10-27-2002 poliovirus vaccine, inactivated Jose Maxim DO Work Phone: [facility] 05-15-1998 diphtheria, tetanus toxoids and acellular pertussis vaccine, unspecified formulation Jose Maxim DO Work Phone: [facility] 05-15-1998 haemophilus influenz ae type b vaccine, PRP-T conjugate Jose Maxim DO Work Phone: [facility] 05-15-1998 measles, mumps and rubella virus vaccine Jose Maxim DO Work Phone: [facility] 05-15-1998 poliovirus vaccine, inactivated Jose Maxim DO Work Phone: [facility] 1997 diphtheria, tetanus toxoids and acellular pertussis vaccine, unspecified formulation Jose Maxim DO Work Phone: [facility] 1997 haemophilus influenz ae type b conjugate and Hepatitis B vaccine Jose Maxim DO Work Phone: [facility] 1997 diphtheria, tetanus toxoids and acellular pertussis vaccine, unspecified formulation Jose Maxim DO Work Phone: [facility] 1997 haemophilus influenz ae type b vaccine, conjugate unspecified formulation Jose Maxim DO Work Phone: [facility] 1997 poliovirus vaccine, inactivated Jose Maxim DO Work Phone: [facility] 1997 diphtheria, tetanus toxoids and acellular pertussis vaccine, unspecified formulation Jose Maxim DO Work Phone: [facility] 1997 haemophilus influenz ae type b vaccine, conjugate unspecified formulation Jose Maxim DO Work Phone: [facility] 1997 hepatitis B vaccine, pediatric or pediatric/adolescent dosage Jose Maxim DO Work Phone: [facility] 1997 poliovirus vaccine, inactivated Jose Maxim DO Work Phone: [facility] 1997 hepatitis B vaccine, pediatric or pediatric/adolescent dosage Jose Maxim DO Work Phone: [facility] Payers Date Payer Category Payer [facility] [id number] 2023 Unknown [facility] xxxxxx [id number] 2023-Present [phone] [address] [place] [address] [id number] 2020 Medicaid [facility] MEDICAID [place] MEDICAID [id number] 2020-Present [address] [place] [address] [id number] 2020 Medicaid (Managed Care) [facility] MEDICAID [id number] 2020 Unknown [id number] 1997 Unknown [id number] 2.16.840.1.559339.3.579.2.1 73 1997 Unknown [id number] 2.16.840.1.523176.3.579.2.1 73 1997 Unknown [id number] 2.16.840.1.792846.3.579.2.1 73 1997 Unknown [id number] 2.16.840.1.637191.3.579.2.1 73 1997 Unknown [id number] 2.16.840.1.069079.3.579.2.5 93 1997 Unknown [id number] 2.16.840.1.522448.3.579.2.5 93 1997 Unknown [id number] 2.16.840.1.804031.3.579.2.1 75 1997 Unknown [id number] 2.16.840.1.864762.3.579.2.7 27 1997 Unknown [id number] 2.16.840.1.988305.3.579.2.7 27 1997 Unknown [id number] 2.16.840.1.978338.3.579.2.7 27 1997 Unknown [id number] 2.16.840.1.017656.3.579.2.7 27 1997 Unknown [id number] 2.16.840.1.465896.3.579.2.7 27 1997 Unknown [id number] 2.16.840.1.599076.3.579.2.7 27 1997 Unknown [id number] 2.16.840.1.929381.3.579.2.7 27 1997 Unknown [id number] 2.16.840.1.777285.3.579.2.1 259 1997 Unknown [id number] 2.16.840.1.041818.3.579.2.1 259 1997 Unknown [id number] 2.16.840.1.603945.3.579.2.1 259 1997 Unknown [id number] 2.16.840.1.547299.3.579.2.1 259 1997 Unknown [id number] 2.16.840.1.737727.3.579.2.1 259 1997 Unknown [id number] 2.16.840.1.926676.3.579.2.1 259 1997 Unknown [id number] 2.16.840.1.974865.3.579.2.1 259 1997 Unknown [id number] 2.16.840.1.707219.3.579.2.1 259 1997 Unknown [id number] 2.16.840.1.771159.3.579.2.1 259 1997 Unknown [id number] 2.16.840.1.479292.3.579.2.1 259 1997 Unknown [id number] 2.16.840.1.893679.3.579.2.1 259 1997 Unknown [id number] 2.16.840.1.641724.3.579.2.1 259 1997 Unknown [id number] 2.16.840.1.730230.3.579.2.1 259 1997 Unknown [id number] 2.16.840.1.277508.3.579.2.1 259 1997 Unknown [id number] 2.16.840.1.855233.3.579.2.1 259 1997 Unknown [id number] 2.16.840.1.361421.3.579.2.1 259 1959 Unknown [id number] 1.2.840.210031.1.13.239.2.7 .3.927637.315 1959 Unknown [id number] 1.2.840.533444.1.13.239.2.7 .3.631626.315 1959 Unknown [id number] Social History Date Type Detail Facility Start: 06-12-2021 End: 11-16-2023 Tobacco smoking status [facility] Ex-smoker [facility] History of tobacco use Cigarette Smoker [facility] [email or web address] Phone: Start: 06-12-2021 End: 09-24-2023 Cigarettes smoked current (pack per day) - Reported 0.25 [facility] Start: 06-12-2021 End: 11-16-2023 Tobacco use and exposure Smokeless [facility]-user [email or web address] Phone: Start: 06-12-2021 Alcohol intake Current non-drinker of alcohol (finding) [employer] Phone: Start: 1995 Sex Assigned At Not on file [employer] Phone: History of tobacco use Current smoker [facility] Start: 01-11-2024 End: 08-18-2024 Alcoholic beverage intake Lifetime non-drinker (finding) [facility] Start: 09-24-2023 End: 07-18-2024 [id number] Health Literacy [facility] How often do you nee d to have someone help you when you read instructions, pamphlets, or other written material from your doctor or pharmacy [SILS] Never [facility] Do you belong to any clubs or organizations such as taoism groups, unions, fraternal or athletic groups, or [...] coffee or energy drink occasionally [facility] Start: 07-03-2024 [facility] Functional Status Date Assessment Result Facility 03-01-2024 Functional Status N/A [facility] Clinical Notes 01-11-2024 to 08-18-2024 Nasreen Figueroa MA - 08/18/2024 1:00 PM Namrata Ramírez MD - 07/18/2024 8:20 AM EDTTelephone Encounter - Lopez Gan - 06/10/2024 9:17 AM ESTTelephone Encounter - Lopez Gan - 06/10/2024 9:17 AM EST Note Date & Type Note Facility 08-18-2024 History of Presen t illness Narrative Reason for Appointment: Patient ID: Faheem Belcher is a 29 y.o. female who presents for Amenorrhea Patient presents today for a Nurse OB Intake appointment. Patient is 8w4d with a Estimated Date of Delivery: 03/26/25 OB History Para Term AB Living 2 0 1 SAB IAB Ectopic Multiple Live Births 1 # Outcome Date GA Lbr Derek/2nd Weight Sex Type Anes PTL Lv 2 Current 1 06/22/20 F Vag-Spont VIRIDIANA Obstetric Comments Menarche: age 14 Premenstrual Syndrome symptoms: tension , pelvic pain, irritability Menstruation: Time last menstrual period - 1 to 2 months. Time between period - 21 to 32 days apart, Lasts: 2-7 days Pad/tampon use per day 4-6. Character of period: severe pain Last pap smear date 05/21/2021 neg Current Medications: has a current medication list which includes the following prescription(s): ondansetron odt, co-enzyme q-10, and multivitamin. Medical History: Active Ambulatory Problems Diagnosis Date Noted Adjustment disorder with mixed anxiety and depressed mood ([facility]) 09/06/2022 Amenorrhea 09/06/2022 Anxiety 09/06/2022 Bipolar affective disorder, currently depressed, moderate ([facility]) 09/06/2022 Complication of intrauterine device (IUD) ([facility]) 09/06/2022 Inattention 09/06/2022 Irregular menses 09/06/2022 Irritable bowel syndrome with diarrhea 09/06/2022 Menstrual cramp 09/06/2022 Pain in pelvis 09/06/2022 Generalized anxiety disorder ([facility]) 09/06/2022 Post-traumatic stress disorder ([facility]) 09/06/2022 Slow transit constipation 09/06/2022 Anxiety during 03/26/2020 Depression affecting ([facility]) 03/26/2020 History of chlamydia 03/26/2020 Bacterial infection due to mycoplasma 02/15/2024 Vaginal odor 02/15/2024 Urinary tract infection without hematuria 02/15/2024 Bacterial vaginosis 02/15/2024 Bladder pain 07/18/2024 Calculus of kidney 07/25/2013 Gross hematuria 07/18/2024 Resolved Ambulatory Problems Diagnosis Date Noted No Resolved Ambulatory Problems Past Medical History: Diagnosis Date ADHD (attention deficit hyperactivity disorder) ([facility]) Bipolar disorder (manic depression) ([facility]) BMI 24.0-24.9, adult Chicken pox 2007 Headache IBS (irritable bowel syndrome) Intrauterine device surveillance Pelvic pain Urinary tract infection Family History Problem Relation Name Age of Onset Cancer Mother kaila Mental illness Mother kaila manic depressive bipolar disorder No Known Problems Brother 2 brothers Breast cancer Paternal Grandmother juan pablo Cancer Paternal Grandmother juan pablo No Known Problems Daughter Social History Tobacco Use Smoking status: Former Current packs/day: 0.50 Average packs/day: 0.5 packs/day for 5.0 years (2.5 ttl pk-yrs) Types: Cigarettes Smokeless tobacco: Never Vaping Use Vaping status: Never Used Substance Use Topics Alcohol use: Never Comment: caffeine: 1-2 cups coffee or energy drink occasionally Drug use: Never Types: Marijuana Comment: Quit in August Past Surgical History: Procedure Laterality Date LAPAROSCOPY DIAGNOSTIC / BIOPSY / ASPIRATION / LYSIS 04/01/2024 LITHOTRIPSY 2014 kidney stones/lithotrypsy PAP SMEAR 05/21/2021 negative WISDOM TOOTH EXTRACTION 2015 [place] teeth Allergies Allergen Reactions Bacitracin-Polymyxin B Other Reaction(s): Unknown Escitalopram Other groggy Other Reaction(s): Sleepy Buspar [Buspirone] Anxiety Caused heart palpitations and increased anxiety Vitals: Estimated body mass index is 22.87 kg/m as calculated from the following: Height as of 07/18/24: 5' 7 . Weight as of this encounter: 146 lb. BP: 118/68 Patient's last menstrual period was 06/19/2024. Assessment/Plan Diagnoses and all orders for this visit: Missed menses - Type and screen; Future - ABO/Rh; Future - CBC and differential - Hemoglobin A1c - RPR - Rubella antibody, IgG - Hepatitis B surface antigen - Hepatitis C antibody - HIV-1 and HIV-2 antibodies - Urine culture - POCT , urine manually resulted - POCT urinalysis dipstick manually resulted , unspecified gestational age - Type and screen; Future - ABO/Rh; Future - CBC and differential - Hemoglobin A1c - RPR - Rubella antibody, IgG - Hepatitis B surface antigen - Hepatitis C antibody - HIV-1 and HIV-2 antibodies - Rapid drug screen, urine; Future Encounter for supervision of normal first in first trimester - Rapid drug screen, urine; Future Nurse Note: Patient unsure of [employer] to one. OB Intake: Patient presents today for first OB visit. Patients history has been reviewed in great detail including any potential risks. Patient signed consent forms and patient desires testing in both trimesters. Patient currently has no complaints and has been advised to drink 6-8 glasses of water a day, eat no raw or undercooked meat, and stay away from [facility]. Patient has also been advised to not change litter boxes and eat 6 small meals a day. Patient has been consulted regarding the do's and don'ts of . Patient was given labs and all questions and concerns were answered. Follow Up: Patient is to return in 4 weeks for routine OB appointment. Follow Up: Patient is to have labs drawn at directed and return to office for initial OB appointment with provider. Patient may call office as needed with any concerns or questions. Nurse Visit Completed by: Nasreen Figueroa MA documented in this encounter [facility] 08-01-2024 Note Patient Education Urology Kidney Stones Kidney stones are rock-like masses that form inside of the kidneys. Kidneys are organs that make pee (urine). A kidney stone may move into other parts of the urinary tract, including: ??? The tubes that connect the kidneys to the bladder (ureters). ??? The bladder. ??? The tube that carries urine out of the body (urethra). Kidney stones can cause very bad pain and can block the flow of pee. The stone usually leaves your body through your pee. A doctor may need to take out the stone. What are the causes? Kidney stones may be caused by: ??? Too much calcium in the body. This may be caused by too much parathyroid hormone in the blood. ??? Uric acid crystals in the bladder. The body makes uric acid when you eat certain foods. ??? Narrowing of one or both of the ureters. ??? A kidney blockage that you were born with. ??? Past surgery on the kidney or the ureters. What increases the risk? You are more likely to develop this condition if: ??? You have had a kidney stone in the past. ??? Other people in your family have had kidney stones. ??? You do not drink enough water. ??? You eat a diet that is high in protein, salt (sodium), or sugar. ??? You are very overweight (obese). What are the signs or symptoms? Symptoms of a kidney stone may include: ??? Pain in the side of the belly, right below the ribs. Pain usually spreads to the groin. ??? Needing to pee often or right away. ??? Pain when peeing. ??? Blood in your pee. ??? Feeling like you may vomit (nauseous). ??? Vomiting. ??? Fever and chills. How is this treated? Treatment depends on the size, location, and makeup of the kidney stones. The stones will often pass out of the body when you pee. You may need to: ??? Drink more fluid to help pass the stone. ? In some cases, you may be given fluids through an IV tube at the hospital. ??? Take medicine for pain. ??? Change your diet to help keep kidney stones from coming back. Sometimes, you may need: ??? A procedure to break up kidney stones using a beam of light (laser) or shock waves. ??? Surgery to remove the kidney stones. Follow these instructions at home: Medicines ??? Take [id number] and prescription medicines only as told by your doctor. ??? Ask your doctor if the medicine prescribed to you requires you to avoid driving or using machinery. Eating and drinking ??? Drink enough fluid to keep your pee pale yellow. ? You may be told to drink at least 8?10 glasses of water each day. This will help you pass the stone. ??? If told by your doctor, change your diet. You may be told to: ? Limit how much salt you eat. ? Eat more fruits and vegetables. ? Limit how much meat, poultry, fish, and eggs you eat. ??? Follow instructions from your doctor about what you may eat and drink. General instructions ??? Collect pee samples as told by your doctor. You may need to collect a pee sample: ? 24 hours after a stone comes out. ? 8?12 weeks after a stone comes out, and every 6?12 months after that. ??? Strain your pee every time you pee. Use the strainer that your doctor recommends. ??? Do not throw out the stone. Keep it so that it can be tested by your doctor. ??? Keep all follow-up visits. You may need X-rays and ultrasounds to make sure the stone has come out. How is this prevented? To prevent another kidney stone: ??? Drink enough fluid to keep your pee pale yellow. This is the best way to prevent kidney stones. ??? Eat healthy foods. ??? Avoid certain foods as told by your doctor. You may be told to eat less protein. ??? Stay at a healthy weight. Where to find more information ??? National Kidney Foundation (NKF): kidney.org ??? U[employer] Care Foundation (UCF): urologyhealth.org Contact a doctor if: ??? You have pain that gets worse or does not get better with medicine. Get help right away if: ??? You have a fever or chills. ??? You get very bad pain. ??? You get new pain in your belly. ??? You faint. ??? You cannot pee. This information is not intended to replace advice given to you by your health care provider. Make sure you discuss any questions you have with your health care provider. Document Revised: 11/21/2022 Document Reviewed: 11/21/2022 [employer] Patient Education ? 2023 [employer]. [facility] 07-18-2024 History of Presen t illness Narrative Images from the original note were not included. Faheem Belcher is a 29 y.o. female presents with chief complaint of Annual Exam and Breast Mass HPI: HPI History of Present Illness The patient presents for evaluation of a lump in her left breast. She was last seen in 10/2023, at which time she reported a palpable mass in her left breast. The initial assessment suggested the presence of fibroids, and an ultrasound was recommended. However, during her subsequent annual visit with her RN [facility], the diagnosis of bilateral fibroids was confirmed, leading her to forego the ultrasound. Over the past weekend, she has noticed an increase in the size of the left breast mass, accompanied by tenderness. She recently had a positive test. She is scheduled to see her RN [facility]GR[facility]ARE in 08/2024. Supplemental Information She takes D-mannose and cranberry due to a history of urinary tract infections (UTIs), and she also takes a probiotic. MEDICATIONS D-mannose, cranberry, probiotic SUBJECTIVE: MEDICATIONS: Current Outpatient Medications Medication Instructions co-enzyme Q-10 30 mg, Daily Multiple Vitamin (multivitamin) tablet 1 tablet, Daily ALLERGIES: Allergies Allergen Reactions Bacitracin-Polymyxin B Other Reaction(s): Unknown Escitalopram Other groggy Other Reaction(s): Sleepy Buspar [Buspirone] Anxiety Caused heart palpitations and increased anxiety SURGICAL HISTORY: Past Surgical History: Procedure Laterality Date LAPAROSCOPY DIAGNOSTIC / BIOPSY / ASPIRATION / LYSIS 04/01/2024 LITHOTRIPSY 2014 kidney stones/lithotrypsy PAP SMEAR 05/21/2021 negative WISDOM TOOTH EXTRACTION 2015 [place] teeth FAMILY HISTORY: Family History Problem Relation Name Age of Onset Cancer Mother kaila Mental illness Mother kaila manic depressive bipolar disorder No Known Problems Brother 2 brothers Breast cancer Paternal Grandmother juan pablo Cancer Paternal Grandmother juan pablo No Known Problems Daughter SOCIAL HISTORY: Social History Tobacco Use Smoking status: Former Current packs/day: 0.50 Average packs/day: 0.5 packs/day for 5.0 years (2.5 ttl pk-yrs) Types: Cigarettes Smokeless tobacco: Never Vaping Use Vaping status: Never Used Substance Use Topics Alcohol use: Never Comment: caffeine: 1-2 cups coffee or energy drink occasionally Drug use: Never Types: Marijuana Comment: Quit in August Depression: Not at risk (07/18/2024) PHQ-2 PHQ-2 Score: 0 REVIEW OF SYMPTOMS: Review of Systems OBJECTIVE: Visit Vitals BP 122/70 (BP Location: Left arm, Patient Position: Sitting, BP Cuff Size: Adult) Pulse 92 Resp 18 Ht 5' 7 Wt 147 lb 3.2 oz SpO2 99% BMI 23.05 kg/m OB Status Having periods Smoking Status Former BSA 1.78 m Physical Exam Fibrous nodule left breast at 4 o'clock ASSESSMENT AND PLAN: Assessment/Plan Problem List Items Addressed This Visit None Visit Diagnoses Mass of lower outer quadrant of left breast - Primary Relevant Orders Left breast US complete Assessment & Plan 1. Left breast lump. The etiology of the lump is likely hormonal, potentially indicative of fibroadenomas or breast cysts. An ultrasound has been ordered to further investigate the nature of the lump. She has been advised to report any increase in the size of the lump. documented in this encounter [facility] 06-10-2024 Telephone encounter Note Faheem called - she asked if its ok that you go ahead and send the referral for her hand now,please. Ty [facility] 06-10-2024 Miscellaneous Notes Faheem called - she asked if its ok that you go ahead and send the referral for her hand now,please. Ty documented in this encounter [facility] 06-10-2024 History of Presen t illness Narrative Images from the original note were not included. Faheem Belcher is a 29 y.o. female presents with chief complaint of ER Follow-up HPI: Patient presents to the office for an ER follow up and suture removal. Reports she was opening a can of tomatoes and cut her right 1st finger (thumb). She was seen in the ER on 06/01/24 and 5 sutures were placed in her right thumb. Has been cleaning the area 1-2 times a day and has been using vaseoline on the area as she is allergic to Neosporin and Bacitracin. Reports still having increasing swelling, pain, and discolored drainage from the wound. Reports the drainage is a orange/green color. She was not placed on antibiotics in the ER. Tetanus is up to date. Has good ROM of her right thumb. Flowsheet Row Patient Outreach from 06/09/2024 in [facility] with Massimo Buchanan LPN Hospital Information ED, Hospital or Correction Facility Discharge? ED Patient has been contacted within 1 week of being seen in the ED No Have two attempts been made to contact the patient within one week of being seen in the ED? Yes Diagnosis Right thumb laceration. Discharge Date 06/01/24 Discharged To: Home Setting Discharge Hospital [facility] Engagement Admission Date 06/01/24 Medications Appointments Does the patient have a primary care provider? Yes [Dr. Sri Ramírez.] Nursing Interventions -- [Scheduled for follow-up on June 10.] Self Management Patient Teaching Wrap Up Wrap Up Additional Comments Suture removal in 8 to 10 days. ER Follow-up SUBJECTIVE: MEDICATIONS: ALLERGIES Current Outpatient Medications Medication Instructions co-enzyme Q-10 30 mg, Daily Multiple Vitamin (multivitamin) tablet 1 tablet, Daily Allergies Allergen Reactions Bacitracin-Polymyxin B Other Reaction(s): Unknown Escitalopram Other groggy Other Reaction(s): Sleepy Buspar [Buspirone] Anxiety Caused heart palpitations and increased anxiety PAST MEDICAL HISTORY: SOCIAL HISTORY SURGICAL HISTORY: Past Medical History: Diagnosis Date ADHD (attention deficit hyperactivity disorder) ([facility]) Adjustment disorder with mixed anxiety and depressed mood ([facility]) Amenorrhea Anxiety Bipolar disorder (manic depression) ([facility]) BMI 24.0-24.9, adult Chicken pox 2008 Complication of intrauterine device (IUD) ([facility]) Headache IBS (irritable bowel syndrome) IBS with [...] Never Types: Marijuana Comment: Quit in August Past Surgical History: Procedure Laterality Date LAPAROSCOPY DIAGNOSTIC / BIOPSY / ASPIRATION / LYSIS 04/01/2024 LITHOTRIPSY 2015 kidney stones/lithotrypsy PAP SMEAR 05/21/2021 negative WISDOM TOOTH EXTRACTION 2015 [place] teeth REVIEW OF SYMPTOMS: Review of Systems Constitutional: Negative. HENT: Negative. Eyes: Negative. Respiratory: Negative. Cardiovascular: Negative. Gastrointestinal: Negative. Genitourinary: Negative. Musculoskeletal: Negative. Skin: Positive for wound. Neurological: Negative. Psychiatric/Behavioral: Negative. OBJECTIVE: Vitals: 06/10/24 0803 BP: 122/78 Pulse: 96 Temp: 95 F SpO2: 98% Physical Exam Vitals and nursing note reviewed. HENT: Head: Normocephalic and atraumatic. Cardiovascular: Rate and Rhythm: Normal rate and regular rhythm. Heart sounds: Normal heart sounds. Pulmonary: Effort: Pulmonary effort is normal. Breath sounds: Normal breath sounds. Skin: General: Skin is warm and dry. Findings: Laceration present. Comments: Closed laceration noted to right thumb. 5 Sutures noted. Slight redness around the area, increased swelling Neurological: General: No focal deficit present. Mental Status: She is alert and oriented to person, place, and time. Psychiatric: Mood and Affect: Mood normal. Behavior: Behavior normal. ASSESSMENT AND PLAN: Assessment/Plan 5 sutures removed from right thumb. Area was well approximated and closed before suture removal. During suture removal, the middle of the laceration on the pad of her right thumb opened up again. Steri strips placed over the middle of the laceration on right thumb to close the area again. Problem List Items Addressed This Visit None Visit Diagnoses Encounter for removal of sutures - Primary Cellulitis of finger of right hand Relevant Medications cephalexin (Keflex) 500 MG capsule Take 1 capsule (500 mg) by mouth in the morning and 1 capsule (500 mg) at noon and 1 capsule (500 mg) in the evening and 1 capsule (500 mg) before bedtime. Do all this for 7 days Keep area clean and dry for 24 hours after steri strips Clean with soap and water a couple times daily Continue use of Vasoline to area. Keep area covered while doing things but keep open to air at night and throughout the day when you can. Keflex given for increased redness and swelling. If still having increased pain, swelling, or redness after 3-5 days on antibiotics, please call the office. May need referral to hand specialist if still having issues Follow up as needed. documented in this encounter [facility] 05-23-2024 History of Presen t illness Narrative Reason for Appointment: Patient ID: [...] disorder with mixed anxiety and depressed mood ([facility]) 09/06/2022 Amenorrhea 09/06/2022 Anxiety 09/06/2022 Bipolar affective disorder, currently depressed, moderate ([facility]) 09/06/2022 Complication of intrauterine device (IUD) ([facility]) 09/06/2022 Inattention 09/06/2022 Irregular menses 09/06/2022 Irritable bowel syndrome with diarrhea 09/06/2022 Menstrual cramp 09/06/2022 Pain in pelvis 09/06/2022 Generalized anxiety disorder ([facility]) 09/06/2022 Post-traumatic stress disorder ([facility]) 09/06/2022 Slow transit constipation 09/06/2022 Anxiety during 03/26/2020 Depression affecting ([facility]) 03/26/2020 History of chlamydia 03/26/2020 Bacterial infection due to mycoplasma 02/15/2024 Vaginal odor 02/15/2024 Urinary tract infection without hematuria 02/15/2024 Bacterial vaginosis 02/15/2024 Resolved Ambulatory Problems Diagnosis Date Noted No Resolved Ambulatory Problems Past Medical History: Diagnosis Date ADHD (attention deficit hyperactivity disorder) ([facility]) Bipolar disorder (manic depression) ([facility]) BMI 24.0-24.9, adult Chicken pox 2007 Headache IBS (irritable bowel syndrome) Intrauterine device surveillance Pelvic pain Urinary tract infection HISTORY PAST MEDICAL HISTORY SOCIAL HISTORY Past Medical History: Diagnosis Date ADHD (attention deficit hyperactivity disorder) ([facility]) Adjustment disorder with mixed anxiety and depressed mood ([facility]) Amenorrhea Anxiety Bipolar disorder (manic depression) ([facility]) BMI 24.0-24.9, adult Chicken pox 2007 Complication of intrauterine device (IUD) ([facility]) Headache IBS (irritable bowel syndrome) IBS with [...] SMEAR 05/21/2021 negative WISDOM TOOTH EXTRACTION 2015 [place] teeth REVIEW OF SYSTEMS Review of Systems: [...] of: ALISA Coyle documented in this encounter [facility] 04-20-2024 History of Presen t illness Narrative Reason for Appointment: Patient ID: [...] disorder with mixed anxiety and depressed mood ([facility]) 09/06/2022 Amenorrhea 09/06/2022 Anxiety 09/06/2022 Bipolar affective disorder, currently depressed, moderate ([facility]) 09/06/2022 Complication of intrauterine device (IUD) ([facility]) 09/06/2022 Inattention 09/06/2022 Irregular menses 09/06/2022 Irritable bowel syndrome with diarrhea 09/06/2022 Menstrual cramp 09/06/2022 Pain in pelvis 09/06/2022 Generalized anxiety disorder ([facility]) 09/06/2022 Post-traumatic stress disorder ([facility]) 09/06/2022 Slow transit constipation 09/06/2022 Anxiety during 03/26/2020 Depression affecting ([facility]) 03/26/2020 History of chlamydia 03/26/2020 Bacterial infection due to mycoplasma 02/15/2024 Vaginal odor 02/15/2024 Urinary tract infection without hematuria 02/15/2024 Bacterial vaginosis 02/15/2024 Resolved Ambulatory Problems Diagnosis Date Noted No Resolved Ambulatory Problems Past Medical History: Diagnosis Date ADHD (attention deficit hyperactivity disorder) ([facility] [facility]) Bipolar disorder (manic depression) ([facility]) BMI 24.0-24.9, adult Chicken pox 2007 Headache IBS (irritable bowel syndrome) Intrauterine device surveillance Pelvic pain Urinary tract infection HISTORY PAST MEDICAL HISTORY SOCIAL HISTORY Past Medical History: Diagnosis Date ADHD (attention deficit hyperactivity disorder) ([facility]) Adjustment disorder with mixed anxiety and depressed mood ([facility]) Amenorrhea Anxiety Bipolar disorder (manic depression) ([facility]) BMI 24.0-24.9, adult Chicken pox 2007 Complication of intrauterine device (IUD) ([facility]) Headache IBS (irritable bowel syndrome) IBS with [...] SMEAR 05/21/2021 negative WISDOM TOOTH EXTRACTION 2015 [place] teeth REVIEW OF SYSTEMS Review of Systems: [...] nursing note reviewed. Exam conducted with a retail analytics manager present. Vitals: Estimated body mass index is [...] Jose Pan DO documented in this encounter [facility] 03-29-2024 Note Urology Office/Clini c Note Chief [...] gross hematuria. Pt. states she was in [facility] for cystitis Frequency: 2-3 hours Urgency: [...] with voice recognition artificial intelligence software, specifically [employer] and or [employer]. Substitutions may have occurred due to the [...] OBGYN regarding poss endometriosis dx May be MANAGER FINE source of pain Does not necessarily improve [...] free lemonade or clear soda. Avoid dark [place]. Restrict sodium intake. Restrict animal protein. -KUB/ MARCIA at [facility], call pt w/ results Orders: cephalexin, 500 mg = 1 cap(s), Oral, BID, X 7 day(s), # 14 cap(s), Refills(s) 0, Pharmacy: [id number], 174, cm, 03/01/24 10:48:00 EST, Height/Length [...] Primary malignant neoplasm of female breast: Grandparent. [facility] Comment on above: Result Comment: Elec tronically Signed By: SRUTHI Yu APRN, [facility]\.br\Date and Time Signed: 03/29/24 10:28 EST 03-21-2024 Evaluation + Plan note Diagnostic Tests PendingUrine Culture 03/21/24 [facility] 03-09-2024 History of Presen t illness Narrative Reason for Appointment: Patient ID: Faheem Belcher is a 29 y.o. female who presents for Pre-op Visit Patient presents today for Pre Op appointment. Patient is scheduled to undergo Da Neha assisted Diagnostic Laparoscopy, possible ZAHRA, possible FOE, possible BSO on 04/01/[address] Pan at [facility] MEDICATIONS Current Outpatient Medications Medication Instructions azithromycin [...] anxiety disorder (CMS/HCC) 09/06/2022 Post-traumatic stress disorder ([facility]) 09/06/2022 Slow transit constipation 09/06/2022 Anxiety during 03/26/2020 Depression affecting ([facility]) 03/26/2020 History of chlamydia 03/26/2020 Bacterial infection due to mycoplasma 02/15/2024 Vaginal odor 02/15/2024 Urinary tract infection without hematuria 02/15/2024 Bacterial vaginosis 02/15/2024 Resolved Ambulatory Problems Diagnosis Date Noted No Resolved Ambulatory Problems Past Medical History: Diagnosis Date ADHD (attention deficit hyperactivity disorder) ([facility]) Bipolar disorder (manic depression) ([facility]) BMI 24.0-24.9, adult Chicken pox 2007 Headache IBS (irritable bowel syndrome) Intrauterine device surveillance Pelvic pain Urinary tract infection HISTORY PAST MEDICAL HISTORY SOCIAL HISTORY Past Medical History: Diagnosis Date ADHD (attention deficit hyperactivity disorder) ([facility]) Adjustment disorder with mixed anxiety and depressed mood ([facility]) Amenorrhea Anxiety Bipolar disorder (manic depression) ([facility]) BMI 24.0-24.9, adult Chicken pox 2007 Complication of intrauterine device (IUD) ([facility]) Headache IBS (irritable bowel syndrome) IBS with [...] SMEAR 05/21/2021 negative WISDOM TOOTH EXTRACTION 2015 [place] teeth REVIEW OF SYSTEMS Review of Systems: [...] nursing note reviewed. Exam conducted with a retail analytics manager present. Vitals: Estimated body mass index is [...] reviewed, and patient is to proceed to [facility] OR. Pt has vaginal discharge and recurrent bv- rx for xaciato and metrogel faxed to pharmacy. Follow Up: Patient is to follow up between 1-2 weeks post operative to assess proper healing and recovery from procedure. Documented by Ana Mcintosh LPN on behalf of: Jose Pan DO documented in this encounter [facility] 02-15-2024 History of Presen t illness Narrative Reason for Appointment: Patient ID: Faheem Beclher is a 29 y.o. female who presents [...] disorder with mixed anxiety and depressed mood ([facility]) 09/06/2022 Amenorrhea 09/06/2022 Anxiety 09/06/2022 Bipolar affective disorder, currently depressed, moderate ([facility]) 09/06/2022 Complication of intrauterine device (IUD) ([facility]) 09/06/2022 Inattention 09/06/2022 Irregular menses 09/06/2022 Irritable bowel syndrome with diarrhea 09/06/2022 Menstrual cramp 09/06/2022 Pain in pelvis 09/06/2022 Generalized anxiety disorder ([facility]) 09/06/2022 Post-traumatic stress disorder ([facility]) 09/06/2022 Slow transit constipation 09/06/2022 Anxiety during 03/26/2020 Depression affecting ([facility]) 03/26/2020 History of chlamydia 03/26/2020 Resolved Ambulatory Problems Diagnosis Date Noted No Resolved Ambulatory Problems Past Medical History: Diagnosis Date ADHD (attention deficit hyperactivity disorder) ([facility]) Bipolar disorder (manic depression) ([facility]) BMI 24.0-24.9, adult Chicken pox 2008 Headache IBS (irritable bowel syndrome) Intrauterine device surveillance Pelvic pain Urinary tract infection HISTORY PAST MEDICAL HISTORY SOCIAL HISTORY Past Medical History: Diagnosis Date ADHD (attention deficit hyperactivity disorder) ([facility]) Adjustment disorder with mixed anxiety and depressed mood ([facility]) Amenorrhea Anxiety Bipolar disorder (manic depression) ([facility]) BMI 24.0-24.9, adult Chicken pox 2008 Complication of intrauterine device (IUD) ([facility]) Headache IBS (irritable bowel syndrome) IBS with [...] SMEAR 05/21/2021 negative WISDOM TOOTH EXTRACTION 2015 [place] teeth REVIEW OF SYSTEMS Review of Systems: [...] nursing note reviewed. Exam conducted with a retail analytics manager present. Vitals: Estimated body mass index is [...] a referral to Urology. Patient aware that Building Performance Consultant will reach out to her to sent up surgery date for Dx Lap as well. Patient aware of referral process. Documented by Estela Phipps LPN on behalf of: Jose Pan DO documented in this encounter [facility] 01-27-2024 History of Presen t illness Narrative Reason for Appointment: Patient ID: [...] disorder with mixed anxiety and depressed mood ([facility]) 09/06/2022 Amenorrhea 09/06/2022 Anxiety 09/06/2022 Bipolar affective disorder, currently depressed, moderate ([facility]) 09/06/2022 Complication of intrauterine device (IUD) ([facility]) 09/06/2022 Inattention 09/06/2022 Irregular menses 09/06/2022 Irritable bowel syndrome with diarrhea 09/06/2022 Menstrual cramp 09/06/2022 Pain in pelvis 09/06/2022 Generalized anxiety disorder ([facility]) 09/06/2022 Post-traumatic stress disorder ([facility]) 09/06/2022 Slow transit constipation 09/06/2022 Anxiety during 03/26/2020 Depression affecting ([facility]) 03/26/2020 History of chlamydia 03/26/2020 Resolved Ambulatory Problems Diagnosis Date Noted No Resolved Ambulatory Problems Past Medical History: Diagnosis Date ADHD (attention deficit hyperactivity disorder) ([facility]) Bipolar disorder (manic depression) ([facility]) BMI 24.0-24.9, adult Chicken pox 2007 Headache IBS (irritable bowel syndrome) Intrauterine device surveillance Pelvic pain Urinary tract infection HISTORY PAST MEDICAL HISTORY SOCIAL HISTORY Past Medical History: Diagnosis Date ADHD (attention deficit hyperactivity disorder) ([facility]) Adjustment disorder with mixed anxiety and depressed mood ([facility]) Amenorrhea Anxiety Bipolar disorder (manic depression) ([facility]) BMI 24.0-24.9, adult Chicken pox 2008 Complication of intrauterine device (IUD) ([facility]) Headache IBS (irritable bowel syndrome) IBS with [...] SMEAR 05/21/2021 negative WISDOM TOOTH EXTRACTION 2015 [place] teeth REVIEW OF SYSTEMS Review of Systems: [...] nursing note reviewed. Exam conducted with a retail analytics manager present. Vitals: Estimated body mass index is [...] of: ALISA Coyle documented in this encounter [facility] 01-11-2024 History of Presen t illness Narrative Reason for Appointment: Patient ID: [...] disorder with mixed anxiety and depressed mood ([facility]) 09/06/2022 Amenorrhea 09/06/2022 Anxiety 09/06/2022 Bipolar affective disorder, currently depressed, moderate ([facility]) 09/06/2022 Complication of intrauterine device (IUD) ([facility]) 09/06/2022 Inattention 09/06/2022 Irregular menses 09/06/2022 Irritable bowel syndrome with diarrhea 09/06/2022 Menstrual cramp 09/06/2022 Pain in pelvis 09/06/2022 Generalized anxiety disorder ([facility]) 09/06/2022 Post-traumatic stress disorder ([facility]) 09/06/2022 Slow transit constipation 09/06/2022 Anxiety during 03/26/2020 Depression affecting ([facility]) 03/26/2020 History of chlamydia 03/26/2020 Resolved Ambulatory Problems Diagnosis Date Noted No Resolved Ambulatory Problems Past Medical History: Diagnosis Date ADHD (attention deficit hyperactivity disorder) ([facility]) Bipolar disorder (manic depression) ([facility]) BMI 24.0-24.9, adult Chicken pox 2007 Headache IBS (irritable bowel syndrome) Intrauterine device surveillance Pelvic pain Urinary tract infection HISTORY PAST MEDICAL HISTORY SOCIAL HISTORY Past Medical History: Diagnosis Date ADHD (attention deficit hyperactivity disorder) ([facility]) Adjustment disorder with mixed anxiety and depressed mood ([facility]) Amenorrhea Anxiety Bipolar disorder (manic depression) ([facility]) BMI 24.0-24.9, adult Chicken pox 2007 Complication of intrauterine device (IUD) ([facility]) Headache IBS (irritable bowel syndrome) IBS with [...] SMEAR 05/21/2021 negative WISDOM TOOTH EXTRACTION 2015 [place] teeth REVIEW OF SYSTEMS Review of Systems: [...] nursing note reviewed. Exam conducted with a retail analytics manager present. Vitals: Estimated body mass index is [...] Jose Pan DO documented in this encounter [facility] Evaluation + Plan note No data available for this section [facility] [id number] Evaluation note Diagnosis Ureteral stone with hydronephrosis Calculus of ureter Suprapubic pain Abdominal pain, other specified site Dysuria Urgency of urination documented in this encounter [employer] Phone: evaluation note* Diagnosis Ureteral stone with hydronephrosis Calculus of ureter documented in this encounter [employer] Phone: evaluation note* Diagnosis Ureteral stone with hydronephrosis Calculus of ureter Suprapubic pain Abdominal pain, other specified site Dysuria Urgency of urination documented in this encounter [employer] Phone: evaluation note* Diagnosis Well woman exam with routine gynecological exam Routine gynecological examination documented in this encounter [facility] HealthcareEvaluation note* Diagnosis Bacterial vaginosis Unspecified vaginitis and vulvovaginitis Urinary tract infection without hematuria, site unspecified Vaginal odor Unspecified symptom associated with female genital organs Bacterial infection due to mycoplasma documented in this encounter [facility] HealthcareEvaluation note* Diagnosis Pre-op evaluation Pelvic pain in female Unspecified symptom associated with female genital organs Bacterial vaginosis Unspecified vaginitis and vulvovaginitis documented in this encounter [facility] HealthcareEvaluation note* Diagnosis Pelvic pain in female Unspecified symptom associated with female genital organs documented in this encounter [facility] HealthcareEvaluation note* Diagnosis Postoperative examination Follow-up examination, following unspecified surgery documented in this encounter [facility] HealthcareEvaluation note* Diagnosis Vaginal discharge Leukorrhea, not specified as infective Vaginal burning Other specified symptom associated with female genital organs documented in this encounter [facility] HealthcareEvaluation note* Diagnosis Encounter for removal of sutures- Primary Cellulitis of finger of right hand documented in this encounter [facility] HealthcareEvaluation note* Diagnosis Mass of lower outer quadrant of left breast- Primary documented in this encounter [facility] HealthcareEvaluation note* Diagnosis Missed menses , unspecified gestational age Encounter for supervision of normal first in first trimester documented in this encounter [facility] HealthcareHospital Discharge instructions No data available for this section [facility] progress note No data available for this section [facility] Advance Directives No Advanced Directives Records FoundDocuments on File Type Date Recorded Patient Municipal Services Manager Expl anation ACP-Advance Directive ACP-[employer] Shift Manager Latest Code Status on File Code Status Date Activated Date Inactivated Comments Full Code 03/28/2014 9:49 AM 03/28/2014 5:17 PM Documents on File Type Date Recorded Patient Municipal Services Manager Expl anation ACP-Advance Directive ACP[employer] Shift Manager Latest Code Status on File Code Status Date Activated Date Inactivated Comments Full Code 03/28/2014 9:49 AM 03/28/2014 5:17 PM Reason for Referral Specialty Diagnoses / Procedures Referred By Wilman coker Referred To Contact Radiology Diagnoses Ureteral stone with hydronephrosis Suprapubic pain Dysuria Urgency of urination Procedures US RENAL COMPLETE Jason Fabian, SOCIAL STAFF WORKER - [employer]EL STAFF MEMBER [address] [place] [address] Referral ID Status Reason Start Date Expiration Date Visits Re quested Visits Authorized [id number] Closed 06/12/2021 06/12/2022 1 1 Summary Purpose [...] Care Teams (unrecognized sec tion and content) Clinic Specialist Relationship Specialty Start Date End Date Sri Ramírez MD [address] [place] [address] PCP - General 07/20/13 Clinic Specialist Relationship Specialty Start Date End Date Sri Ramírez MD [address] [place] [address] PCP - General 07/20/13 Clinic Specialist Relationship Specialty Start Date End Date Sri Ramírez MD [address] [place] [address] PCP - General 07/20/13 Clinic Specialist Relationship Specialty Start Date End Date Sri Ramírez MD [address] [place] [address] PCP - General 07/20/13 Clinic Specialist Relationship Specialty Start Date End Date Sri Ramírez MD [facility] [place] [address] PCP - General Family Medicine 09/19/22 Elvie Barahona, SOCIAL STAFF WORKER-PIPE BENDING MACHINE OPERATOR [address] [facility] [address] [place] [address] PCP - [place] 09/12/23 Kayla Kahn DO [address] [facility] [address] [place] [address] Referring Physician 09/19/22 Clinic Specialist Relationship Specialty Start Date End Date Sri Ramírez MD [address] [place] [address] PCP - General Family Medicine 09/19/22 Elvie Barahona, SOCIAL STAFF WORKER-PIPE BENDING MACHINE OPERATOR [address] [facility] [address] [place] [address] PCP - [place] [employer] 09/12/23 Kayla Kahn DO [address] [place] [address] Referring Physician 09/19/22 Clinic Specialist Relationship Specialty Start Date End Date Sri Ramírez MD [address] [place] [address] PCP - General Family Medicine 09/19/22 Elvie Barahona, SOCIAL STAFF WORKER-PIPE BENDING MACHINE OPERATOR [address] [facility] [address] [place] [address] PCP - [place] [employer] 09/12/23 Kayla Kahn DO [address] [facility] [address] [place] [address] Referring Physician 09/19/22 Clinic Specialist Relationship Specialty Start Date End Date Sri Ramírez MD [address] [place] [address] PCP - General Family Medicine 09/19/22 Elvie Barahona, SOCIAL STAFF WORKER-PIPE BENDING MACHINE OPERATOR [address] [facility] [address] [place] [address] PCP - [place] 09/12/23 Kayla Kahn DO [address] [place] [address] Referring Physician 09/19/22 Clinic Specialist Relationship Specialty Start Date End Date Sri Ramírez MD [address] [place] [address] PCP - General Family Medicine 09/19/22 Elvie Barahona, SOCIAL STAFF WORKER-[facility] [address] [facility] [address] [place] [address] PCP - [place] [employer] 09/12/23 Kayla Kahn DO [address] [place] [address] Referring Physician 09/19/22 Clinic Specialist Relationship Specialty Start Date End Date Sri Ramírez MD [address] [place] [address] PCP - General Family Medicine 09/19/22 Elvie Barahona, [facility] [address] [facility] [address] [place] [address] PCP - [place] [employer] 09/12/23 Kayla Kahn DO [address] [place] [address] Referring Physician 09/19/22 Clinic Specialist Relationship Specialty Start Date End Date Sri Ramírez MD [address] [place] [address] PCP - General Family Medicine 09/19/22 Elvie Barahona, SOCIAL STAFF WORKER-[facility] [address] [facility] [address] [place] [address] PCP - [place] [employer] 09/12/23 Kayla Kahn DO [address] [place] [address] Referring Physician 09/19/22 Clinic Specialist Relationship Specialty Start Date End Date Sri Ramírez MD [address] [facility] [place] [address] PCP - General Family Medicine 09/19/22 Elvie Barahona, SOCIAL STAFF WORKER-[facility] [address] [facility] [address] [place] [address] PCP - [place] [employer] 09/12/23 Kayla Kahn DO [address] [facility] [place] [address] Referring Physician 09/19/22 Clinic Specialist Relationship Specialty Start Date End Date Sri Ramírez MD [address] [place] [address] PCP - General Family Medicine 09/19/22 Elvie Barahona, SOCIAL STAFF WORKER-[facility] [address] [place] [address] PCP - [place] [employer] 09/12/23 Kayla Kahn DO [address] [facility] [place] [address] Referring Physician 09/19/22 Clinic Specialist Relationship Specialty Start Date End Date Sri Ramírez MD [address] [place] [address] PCP - General Family Medicine 09/19/22 Elvie Barahona, SOCIAL STAFF WORKER-[facility] [address] [facility] [address] [place] [address] PCP - [place] [employer] 09/12/23 Kayla Kahn DO [address] [place] [facility] [place] [address] Referring Physician 09/19/22 Clinic Specialist Relationship Specialty Start Date End Date Sri Ramírez MD [address] [facility] [place] [address] PCP - General Family Medicine 09/19/22 Elvie Barahnoa, SOCIAL STAFF WORKER-PIPE BENDING MACHINE OPERATOR [address] [facility] [address] [place] [address] PCP - [place] [employer] 09/12/23 Kayla Kahn DO [address] [facility] [place] [address] Referring Physician 09/19/22 Clinic Specialist Relationship Specialty Start Date End Date Sri Ramírez MD [address] [facility] [place] [address] PCP - General Family Medicine 09/19/22 Elvie Barahona, SOCIAL STAFF WORKER-PIPE BENDING MACHINE OPERATOR [address] [facility] [address] [place] [address] PCP - [place] [employer] 09/12/23 Kayla Kahn DO [address] [facility] [place] [address] Referring Physician 09/19/22 Clinic Specialist Relationship Specialty Start Date End Date Sri Ramírez MD [address] [facility] [place] [address] PCP - General Family Medicine 09/19/22 Elvie Barahona, SOCIAL STAFF WORKER-PIPE BENDING MACHINE OPERATOR [address] [facility] [address] [place] [address] PCP - [employer] [employer] 09/12/23 Kayla Kahn DO [address] [place] [address] Referring Physician 09/19/22 Clinic Specialist Relationship Specialty Start Date End Date Sri Ramírez MD [address] [place] [address] PCP - General Family Medicine 09/19/22 Elvie Barahona, SOCIAL STAFF WORKER-[facility] [address] [facility] [address] [place] [address] PCP - [place] [employer] 09/12/23 Kayla Kahn DO [address] [place] [address] Referring Physician 09/19/22 Clinic Specialist Relationship Specialty Start Date End Date Sri Ramírez MD [address] [place] [address] PCP - General Family Medicine 09/19/22 Elvie Barahona, SOCIAL STAFF WORKER-[facility] [address] [address] PCP - [place] [employer] 09/12/23 Kayla Kahn DO [address] [facility] [address] Referring Physician 09/19/22 Clinic Specialist Relationship Specialty Start Date End Date Sri Ramírez MD [address] [place] [address] PCP - General Family Medicine 09/19/22 Elvie Barahona, SOCIAL STAFF WORKER-PIPE BENDING MACHINE OPERATOR [address] [facility] [address] [place] [address] PCP - [place] [employer] 09/12/23 Kayla Kahn DO [address] [place] [address] Referring Physician 09/19/22 Reason for Visit (unrecogniz ed section and content) Specialty Diagnoses / Procedures Referred By Contac t Referred To Contact Radiology Diagnoses Ureteral stone with hydronephrosis Suprapubic pain Dysuria Urgency of urination Procedures US RENAL COMPLETE Jason Fabian, SOCIAL STAFF WORKER - [employer] STAFF MEMBER [address] [place] [address] Referral ID Status Reason Start Date Expiration Date Visits Re quested Visits Authorized [id number] Closed 06/12/2021 06/12/2022 1 1 Reason Comments Well Women Visit Reason Comments Vaginitis/Bacterial Vaginosis Pt present today for follow up on BV/UTI. Pt complains of having an odor and would like cx's done at todays visit. Reason Comments Pre-op Visit Reason Comments pelvic pressure Reason Comments Post-op Visit Reason Comments BV and Cultures Reason Comments ER Follow-up Reason Comments Annual Exam Breast Mass Reason Comments Amenorrhea INFORMATION SOURCE (unrecogn ized section and content) DATE CREATED AUTHOR 06/23/2021 Joann Ferraro [facility] DATE CREATED AUTHOR AUTHOR'S ORGANIZ ATION 05/20/2022 [facility] DATE CREATED AUTHOR AUTHOR'S ORGANIZ ATION 09/25/2023 [facility] DATE CREATED AUTHOR AUTHOR'S ORGANIZ ATION 03/27/2024 [facility] DATE CREATED AUTHOR AUTHOR'S ORGANIZ ATION 04/13/[address] [place] [address] [facility] DATE CREATED AUTHOR AUTHOR'S ORGANIZ ATION 08/02/2024 [place] [facility] DATE CREATED AUTHOR AUTHOR'S ORGANIZ ATION 08/22/2024 [facility] EPIC FOR RECORDS PERTAINING TO PATIENTS WHO ARE [...] BE BASED ON THE PRIMARY CLINICAL RECORDS. [facility]. provides no warranty or guarantee of the accuracy or completeness of information in this document.
[2024-08-22 10:38] LABS: BOX Test Reference Lab unity; BOX Test Sent Out unity
[2024-08-22 10:42] LABS: Basophils Percent Auto 0.2 % (0.2-2.0); Eosinophils Absolute Auto 0.1 10^3/uL (0.0-0.7); Eosinophils Percent Auto 0.9 % (0.9-7.0); Hematocrit 38.5 % (36.0-48.0); Hemoglobin 13.5 g/dL (12.0-16.0); Immature Granulocytes Abs Auto 0.02 10^3/uL (0.00-0.03); Immature Granulocytes Pct Auto 0.2 % (0.0-0.5); Lymphocytes Absolute Auto 1.8 10^3/uL (1.2-3.8); Lymphocytes Percent Auto 22.2 % (20.5-60.0); Mean Corpuscular HGB Conc 35.1 g/dL (29.9-35.2); Mean Corpuscular Volume 88.5 fL (81.0-99.0); Mean Platelet Volume 9.4 fL (9.5-13.5); Monocytes Absolute Auto 0.5 10^3/uL (0.3-0.8); Monocytes Percent Auto 5.6 % (1.7-12.0); Neutrophils Absolute Auto 5.7 10^3/uL (1.4-6.5); Neutrophils Percent Auto 70.9 % (43.0-75.0); Platelet Count 282 10^3/uL (150-450); Red Blood Count 4.35 10^6/uL (4.20-5.40); Red Cell Distribution Width 12.3 % (11.0-15.0); White Blood Count 8.1 10^3/uL (4.0-11.0)
[2024-08-22 11:04] LABS: Amphetamine Screen Urine NEGATIVE (NEGATIVE); Benzodiazepines Screen Urine NEGATIVE (NEGATIVE); Cannabinoid Screen Urine NEGATIVE (NEGATIVE); Cocaine Screen Urine NEGATIVE (NEGATIVE); Methamphetamines Screen Urine NEGATIVE (NEGATIVE); Opiate Screen Urine NEGATIVE (NEGATIVE); Phencyclidine Screen Urine NEGATIVE (NEGATIVE)
[2024-08-22 11:05] LABS: Barbiturates Screen Urine NEGATIVE (NEGATIVE); Buprenorphine Screen Urine NEGATIVE (NEGATIVE); Methadone Screen Urine NEGATIVE (NEGATIVE); Oxycodone Screen Urine NEGATIVE (NEGATIVE); Tricyclic Antidepressant Urine NEGATIVE (NEGATIVE)
[2024-08-22 11:16] LABS: Estimated Average Glucose 97 mg/dL
[2024-08-23 05:07] LABS: HIV Ab/p24 Ag Screen Non Reactive (Non Reactive)
[2024-08-23 06:07] LABS: HBsAg Screen Negative (Negative); HCV Ab Non Reactive (Non Reactive)
[2024-08-23 07:07] LABS: Rubella Antibodies, IgG 3.49 index (Immune >0.99)
[2024-08-23 12:08] LABS: Rapid Plasma Reagin, Quant Non Reactive titer (NonRea<1:1)
== END 2024-08-22 10:05 | disposition home or self-care (01) ==
PROVIDERS: PCP Family Medicine; Visit Provider Obstetrics & Gynecology
DX: Z34.01 Encounter for supervision of normal first pregnancy, first trimester (principal); Z36.0 Encounter for antenatal screening for chromosomal anomalies; N92.6 Irregular menstruation, unspecified
CPT/HCPCS: 36415; 80307; 83036; 85025; 86592; 86762; 86803; 86850; 86900; 86901; 87086; 87340; 87389

== ENCOUNTER 2024-11-02 14:26 | Outpatient (OUT) | payer BC, SELFPAY | END 2024-11-02 14:27 | disposition home or self-care (01) | LOC: LAB 14:27 | PROVIDERS: PCP Family Medicine; Visit Provider Obstetrics & Gynecology | DX: Z34.92 Encounter for supervision of normal pregnancy, unspecified, second trimester (principal) | CPT/HCPCS: 36415; 82105 ==

== ENCOUNTER 2024-11-07 10:56 | Outpatient (OUT) | payer BC, SELFPAY ==
--- OUTSIDE RECORDS SUMMARY | 2024-11-07 10:58 | XMS_ITS | Encounter Summary ---
Author Organization [facility] Address [address] [facility] [place] [address] Care Team Providers Care Instrumental Music Teacher Name Role Phone Sri Ramírez MD Primary Care Provider [phone] Kayla Kahn DO Unavailable [phone] Maria Elena Stephenson RESPIRATORY CLINICIAN Unavailable [phone] Daisy Hurst INDUSTRIAL WELDER-VISUALIZER Unavailable Encounter Details Date Type Department Care Team (Late Contact Info) Description 09/06/2022 Orders Only [facility] [address] [facility] [address] [place] [address] Saira Murray LPN Social History Tobacco Use Types Packs/Day Years Used Date Smoking Tobacco: Never Assessed Comments Unknown Sex and Gender Information Value Date Recorded Sex Assigned at Not on file Legal Sex Female 6:40 PM EDT Gender Identity Not on file Sexual Orientation Not on file documented as of this encounter Plan of Treatment Upcoming Encounters Date Type Department Care Team (Late Contact Info) Description 11/07/2024 2:00 PM EDT Routine [facility] [address] [facility] [place] [address] Jose Pan DO [address] [place] [address] documented as of this encounter Visit Diagnoses Not on filedocumented in this encounter Care Teams Instrumental Music Teacher Relationship Specialty Start Date End Date Sri Ramírez MD [address] [facility] [place] [address] PCP - General Family Medicine 09/19/22 Maria Elena Stephenson NP [address] [place] [address] PCP - [facility] 10/11/22 Daisy Hurst, INDUSTRIAL WELDER-VISUALIZER [address] [facility] [address] [place] [address] [facility] 09/12/23 Kayla Kahn DO [address] [place] [address] Referring Physician 09/19/22 documented as of this encounter
--- OUTSIDE RECORDS SUMMARY | 2024-11-07 10:58 | XMS_ITS | Patient Health Record ---
Author Organization [facility] es Address [address] [place] [address] Care Team Providers Care Vp Organizational Development Name Role Phone Dr. Elpidio Michelle Primary Care Provider Reason For Referral No Information Plan Of Treatment No Information Insurance Providers Payer Name Payer Address Payer Phone Subscriber Number Group Number Insured Name Patient Relationship to Insured Coverage Start Date Coverage End Date zDENTAL BUCKEYE-te rmed [address] [address] [place] [address] [id number] FAHEEM BASURTO Self - patient is the insured [facility] [place] after BUCKEYE-te rmed [address] [place] [address] [id number] FAHEEM BASURTO Self - patient is the insured 1
--- OUTSIDE RECORDS SUMMARY | 2024-11-07 10:58 | XMS_ITS | Encounter Summary ---
Author Organization [facility] Address [address] [facility] [place] [address] Care Team Providers Care Garden Machinery Mechanic Name Role Phone Sri Ramírez MD Primary Care Provider [phone] Kayla Kahn DO Unavailable [phone] Encounter Details Date Type Department Care Team (Late st Contact Info) Description 08/29/2024 Abstract [facility] [address] [facility] [place] [address] Jose Pan DO [address] [facility] [address] [place], [facility] Social History Tobacco Use Types Packs/Day Years Used Date Smoking Tobacco: Former Cigarettes 0.5 5 Smokeless Tobacco: Never Alcohol Use Standard Drinks/Week Comments Never 0 (1 standard drink = 0.6 oz pure alcohol) caffeine: 1-2 cups coffee or energy drink occasionally B1300 Health Literacy Answer Date Recor ded How often do you need to hav e someone help you when you read instructions, pamphlets, or other written material from your doctor or pharmacy? Never 09/24/2023 Social Connection and Isolat ion Panel [NHANES] Answer Date Recorded In a typical week, how many times do you talk on the phone with family, friends, or neighbors? More than three times a week 09/24/2023 How often do you get togethe r with friends or relatives? Twice a week 09/24/2023 How often do you attend [facility] or anabaptist services? Patient declined 09/24/2023 Do you belong to any clubs o r organizations such as rastafarian groups, unions, fraternal or athletic groups, or school groups? No 09/24/2023 How often do you attend meet ings of the clubs or organizations you belong to? Never 09/24/2023 Are you , , di vorced, , never , or living with a partner? Patient declined 09/24/2023 AUDIT-C Answer Date Recorded Q1: How often do you have a drink containing alcohol? Never 09/24/2023 Q2: How many drinks containi ng alcohol do you have on a typical day when you are drinking? Patient does not drink Q3: How often do you have si x or more drinks on one occasion? Never 09/24/2023 Overall Financial Resource Strain (CARDIA) Answe r Date Recorded How hard is it for you to pa y for the very basics like food, housing, medical care, and heating? Not hard at all 09/24/2023 PHQ-2 Answer Date Recorded Patient Health Questionnaire-2 Score 0 07/18/2024 [facility] - Occupational Stress Questionnaire Answer Date Recorded Do you feel stress - tense, restless, nervous, or anxious, or unable to sleep at night because your mind is troubled all the time - these days? Rather much 09/24/2023 Exercise Vital Sign Answer Date Recorde d On average, how many days pe r week do you engage in moderate to strenuous exercise (like a brisk walk)? 3 days 09/24/2023 On average, how many minutes do you engage in exercise at this level? 60 min 09/24/2023 Hunger Vital Sign Answer Date Recorded Within the past 12 months, y ou worried that your food would run out before you got the money to buy more. Never true 09/24/19 24 Within the past 12 months, t he food you bought just didn't last and you didn't have money to get more. Never true 09/24/2023 PRAPARE - Transportation Answer Date Re corded In the past 12 months, has l ack of transportation kept you from medical appointments or from getting medications? No 09/11 In the past 12 months, has l ack of transportation kept you from meetings, work, or from getting things needed for daily living? No 09/24/2023 Housing Stability Vital Sign Answer Jose Elias e Recorded In the last 12 months, was t here a time when you were not able to pay the mortgage or rent on time? No 09/24/2023 In the past 12 months, how m any times have you moved where you were living? 0 09/24/2023 At any time in the past 12 [facility], were you homeless or living in a snf (including now)? No 09/24/2023 Estimated Date of Delivery Comme nts Yes 03/26/2025 Based on last me nstrual period of 06/19/2024 Sex and Gender Information Value Date Recorded Sex Assigned at Not on file Legal Sex Female 6:40 PM EDT Gender Identity Not on file Sexual Orientation Not on file documented as of this encounter Plan of Treatment Upcoming Encounters Date Type Department Care Team (Late st Contact Info) Description 11/07/2024 2:00 PM EDT Routine [facility] [address] [facility] [place] [id number] Jose Pan DO [address] [facility] [place] [address] documented as of this encounter Visit Diagnoses Not on filedocumented in this encounter Care Teams Garden Machinery Mechanic Relationship Specialty Start Date End Date Sri Ramírez MD [address] [place] [address] PCP - General Family Medicine 09/19/22 Kayla Kahn DO [address] [place] [address] Referring Physician 09/19/22 documented as of this encounter
--- OUTSIDE RECORDS SUMMARY | 2024-11-07 10:58 | XMS_ITS | Clinical Summary ---
Author Organization [facility] Address [address] [place] [address] Care Team Providers Care Eyedotter Name Role Phone Sri Ramírez MD Primary Care Provider [phone] Kayla Kahn DO Unavailable [phone] Allergies Active Allergy Reactions Criticality Noted Date Comments Bacitracin-Polymyxin B 09/06/2022 Other Reaction(s): Unknown Buspirone Anxiety Low 01/07/2023 Caused heart palpitations and increased anxiety Escitalopram Other 01/07/2023 groggy Other Reaction(s): Sleepy Medications Multiple Vitamin (multivitamin) tablet Take 1 tablet by mouth Daily Active co-enzyme Q-10 30 MG capsule Take 30 mg by mouth Daily Active ondansetron ODT (Zofran-ODT) 4 MG disintegrating tablet DISSOLVE 1 TABLET on tongue EVERY 8 HOURS NEEDED FOR NAUSEA & FOR VOMITING Active Active Problems Problem Noted Date Diagnosed Date Bladder pain 07/18/2024 Gross hematuria 07/18/2024 Bacterial infection due to mycoplasma 02/15/2024 Vaginal odor 02/15/2024 Urinary tract infection without hematuria 2023 Bacterial vaginosis 02/15/2024 Adjustment disorder with mixed anxiety and depre ssed mood 09/06/2022 Amenorrhea 09/06/2022 Anxiety 09/06/2022 Bipolar affective disorder, currently depressed, moderate 09/06/2022 Complication of intrauterine device (IUD) 2022 Inattention 09/06/2022 Irregular menses 09/06/2022 Irritable bowel syndrome with diarrhea Menstrual cramp 09/06/2022 Pain in pelvis 09/06/2022 Generalized anxiety disorder 09/06/2022 Post-traumatic stress disorder 09/06/2022 Slow transit constipation 09/06/2022 Anxiety during ([facility]) 03/26/2020 Depression affecting 03/26/2020 History of chlamydia 03/26/2020 Calculus of kidney 07/25/2013 Estimated Date of Delivery Comme nts Yes 03/26/2025 Based on last me nstrual period of 06/19/2024 Encounters Date Type Department Care Team Description 11/02/2024 Clinisync Result Encounter [facility] External Department Unsolicited Jose Pan DO 10/10/2024 2:20 PM EDT [place] [phone] Jose Pan, Second trimester ([facility]); 16 weeks gestation of ([facility]); Screening, , for anatomic survey ([facility]) 10/10/2024 Bamboo flowsheet [facility] [address] [place] [address] Jose Pan DO 09/28/2024 2:50 PM EDT Office Visit [facility] [address] [place] [phone] Daja Ryan PA Second trimester ([facility]); 14 weeks gestation of ([facility]); Screen for STD (sexually transmitted disease) 09/28/2024 External Result Encounter NOMS External Department Unsolicited Daja Ryan PA 09/28/2024 Bamboo flowsheet [facility] [address] [place] [address] Daja Ryan PA 09/13/2024 1:40 PM EDT Routine [facility] [address] [place] [address] Jose Pan DO First trimester ([facility]); 12 weeks gestation of ([facility]); Urinary tract infection in mother during , antepartum ([facility]) 09/13/2024 [place]amboo [place] [address] Jose Pan, DO 08/29/2024 Abstract [facility] [address] [place] [address] Jose Pan, DO 08/22/2024 Clinisync Result Encounter NOMS External Department Unsolicited Jose Pan, DO 08/18/2024 1:00 PM EDT [place] [address] GA: 8w4d 08/18/2024 12:30 PM EDT Ancillary [place] [address] Missed menses 08/16/2024 Patient Outreach [facility] [address] [place] [address] Gisele Daily LSW 08/15/2024 Abstract [facility] [address] [place] [address] Jose Pan, DO 08/15/2024 Telephone [facility] [address] [address] [place] [address] Jose Pan, DO 08/14/2024 Abstract [facility] [address] [place] [phone] Sri Ramírez MD 08/14/2024 Abstract [facility] [address] [place] [phone] Sri Ramírez MD 08/13/2024 Travel 08/12/2024 External Result Encounter [facility]OM[facility] External Department Unsolicited Daja Ryan PA 08/12/2024 Clinisync Result Encounter [facility] External Department Unsolicited Provider, Generic External Data from Last 3 Months Immunizations Immunization Administration Dates Next Due DTP 06/24/2020 DTaP, Unspecified 10/27/2002, 9,1997,1997,0 1997 HPV, Quadrivalent 06/04/2010,02/05/2010,11/27/19 10 Hep B, Adolescent or Pediatric 1997,1996 HiB, unspecified 1997,1997 Hib (PRP-T) 05/15/1998 Hib / Hep B 1997 IPV 10/27/2002,05/15/1998,1997 ,1997 MMR 10/27/2002,05/15/1998 Tdap 11/26/2009 Family History Medical History Relation Name Comments No Known Problems Brother 2 brothers No Known Problems Daughter Cancer Mother kaila Mental illness Mother kaila manic depress kandy bipolar disorder Breast cancer Paternal Grandmother juan pablo Cancer Paternal Grandmother juan pablo Relation Name Status Comments Brother 2 Daughter Alive Father Alive Maternal Grandmother Mother kalia Alive Paternal Grandmother juan pablo Alive Social History Tobacco Use Types Packs/Day Years Used Date Smoking Tobacco: Former Cigarettes 0.5 5 Smokeless Tobacco: Never Tobacco Cessation:Counseling Given: Not Answered Alcohol Use Standard Drinks/Week Comments Never 0 [...] week 09/24/2023 How often do you attend chur or jainism services? Patient declined 09/24/2023 Do you belong to any clubs o r organizations such as adventism groups, unions, fraternal or athletic groups, or [...] Recorded Patient Health Questionnaire-2 Score 0 07/18/2024 [facility] - Occupational Stress Questionnaire Answer Date Recorded [...] any time in the past [address] [facility], were you homeless or living in a half-way (including now)? No 09/24/2023 Estimated Date of Delivery Comme nts Yes 03/26/2025 Based on last me nstrual period of 06/19/2024 Sex and Gender Information Value Date Recorded Sex Assigned at Not on file Legal Sex Female 6:40 PM EDT Gender Identity Not on file Sexual Orientation Not on file Last Filed Vital Signs Vital Sign Reading Time Taken Comments Blood Pressure 108/60 10/10/2024 2:44 PM EDT Pulse 92 07/18/2024 8:15 AM EDT Temperature 35 C (95 F) 06/10/2024 8:03 AM EST Respiratory Rate 18 07/18/2024 8:15 AM EDT Oxygen Saturation 99% 07/18/2024 8:15 AM EDT Inhaled Oxygen Concentration - - Weight 69.5 kg (153 lb 4 oz) 10/10/2024 2:44 PM EDT Height 170.2 cm (5' 7 ) 07/18/2024 8:15 AM EDT Body Mass Index 24 07/18/2024 8:15 AM EDT Plan of Treatment Upcoming Encounters Date Type Department Care Team (Late st Contact Info) Description 11/07/2024 2:00 PM EDT Routine [facility] [address] [place] [address] Jose Pan DO [address] [place] [address] Health Maintenance Due Date Last Done Comments Influenza Vaccine (#1) 2024 Procedures Procedure Name Priority Date/Time Associated Diagnosis Comments AFP, SERUM, OPEN SPINA BIFIDA Routine 11/02/2024 2:38 PM EDT POCT URINALYSIS DIPSTICK Routine 10/10/2024 2:51 PM EDT Second trimester ([facility]) RECURRENT VAGINITIS (HTRX) Routine 09/28/2024 3:56 PM EDT POCT URINALYSIS DIPSTICK Routine 09/28/2024 3:30 PM EDT Second trimester ([facility]) POCT URINALYSIS DIPSTICK Routine 09/13/2024 2:09 PM EDT First trimester ([facility]) 12 weeks gestation of ([facility]) HBSAG SCREEN Routine 08/22/2024 10:32 AM EDT RAPID PLASMA REAGIN, QUANT Routine 08/22/2024 10:32 AM EDT HCV ANTIBODY RFX TO QUANT PCR Routine 08/22/2024 10:32 AM EDT ALL RUBELLA IGG AB Routine 08/22/2024 10 :32 AM EDT HIV AB/P24 AG WITH REFLEX Routine 08/22/2024 10:32 AM EDT ALL TYPE AND SCREEN Routine 08/22/2024 1 0:32 AM EDT MLR HEMOGLOBIN A1C Routine 08/22/2024 10 :32 AM EDT ALL CBC WITH AUTO DIFF Routine 08/22/2024 10:32 AM EDT BOX TEST Routine 08/22/2024 10:32 AM EDT URINE CULTURE, ROUTINE Routine 08/22/2024 10:14 AM EDT [facility] DRUG SCREEN RAPID (URINE) Routine 08/22/2024 10:14 AM EDT POCT URINALYSIS DIPSTICK Routine 08/18/2024 1:41 PM EDT Missed menses POCT , URINE Routine 08/18/2024 1:41 PM EDT Missed menses US OB TRANSVAGINAL Routine 08/18/2024 12 :58 PM EDT Missed menses URINE CULTURE - [facility] Routine 08/12/2024 8:15 PM EDT CULTURE, URINE, ROUTINE Routine 08/12/2024 8:15 PM EDT from Last 3 Months Results * AFP, SERUM, OPEN SPINA BIFIDA (11/02/2024 2:38 PM EDT) RESULTS Report . [facility] TEST RESULTS: *Screen Negative* . [facility] GEST. AGE ON COLLECTION DATE 19.4 . weeks [facility] GESTAT. AGE BASED ON LMP . [facility] Comment: Recalculations are not recommended when gestational dating by LMP and ultrasound are within 10 days. [age] [facility] RACE . [facility] WEIGHT 153 . lbs [facility] INSULIN DEP DIABETES No . TB MULTIPLE GESTATION No . [facility] AFP VALUE 52.0 . ng/mL [facility] AFP MOM 1.01 . [facility] [place] [address] [place] [id number] . [facility] INTERPRETATION Comment . [facility] Comment: Interpretation: Screen Negative This result is screen negative for OSB. The AFP MoM calculated is based on the gestational age provided. MS-AFP can identify up to 80% of open neural tube defects. Closed neural tube defects and some open defects may not be detected by this test. This test does not screen for Down Syndrome or Trisomy 18. If screening for Down Syndrome or Trisomy 18 is desired, contact [facility] to discuss available options. The [employer] recommends amniocentesis be offered to women age 35 and older. COMMENT: Comment . [facility] Comment: Alejandra Santiago, Ph.D., [facility] Director References: Available Upon Request. Multiples Of Median Cutoffs For AFP Elevations Mascorro 2.5 Black 2.8 IDD 2.0 Twins 4.5 Abbreviation Definitions IDD - Insulin Dep Diabetes OSBR - Open Spina Bifida Risk For further inquiries contact [facility] at [phone]. This test was developed and its performance characteristics determined by [facility]. It has not been cleared or approved by the Food and Drug Administration. Performed at: [facility] [address] [place], [place] [id number] [employer] Paralegal: Halina Hill [facility], Phone: [phone] 11/02/2024 2:38 PM EDT 11/02/2024 2:40 PM EDT Narrative [facility] - 11/04/2024 1:07 AM EDT N N LMP [id number] 1 16 N 1 Y 153 N N N N N White/ us Generic External Data Provider LAB BLOOD ORDERAB LES Final Result [facility] * POCT urinalysis dipstick manually resulted (10/10/2024 2:51 PM EDT) Only the most recent of4 resultswithin the time period is included. Color, UA Yellow Clarity, UA Clear Glucose, UA Negative Negative - 2000(110) ++++ mg/dL Bilirubin, UA Negative Negative - 4(70) +++ mg/dL Ketones, UA Negative Negative - 160(16) ++++ mg/dL Spec Grav, UA 1.020 1 - 1.03 Blood, UA Negative Negative - 50 Allen/mcL pH, UA 7.0 5 - 9 Protein, UA Negative Negative - 2000(20) ++++ mg/dL Urobilinogen, UA 0.2 0.2 - 12 mg/dL Leukocytes, UA Negative Negative - 500+++ Nadrei/mcL Nitrite, UA Negative Negative - Positive Urine 10/10/2024 2:51 PM EDT us Jose Maxim DO POINT OF CARE TEST ENTER/EDIT OR DERABLES Final Result * RECURRENT VAGINITIS (HTRX) (09/28/2024 3:56 PM EDT) ATOPOBIUM VAGINAE 0 19.961 - 24.689 ppm 09/30/2024 6:40 AM EDT [facility] ATOPOBIUM VAGINAE Not Detected 19.961 - 24.689 ppm 09/30/2024 6:40 AM EDT [facility] BVAB 2,3 (BACTERIAL VAGINOSIS ASSOCIATED BACTERIA 2, 3); MOBILUNCUS SPP 0 19.961 - 24.689 ppm 09/30/2024 6:41 AM EDT [facility] BVAB 2,3 (BACTERIAL VAGINOSIS ASSOCIATED BACTERIA 2, 3); MOBILUNCUS SPP Not Detected 19.961 - 24.689 ppm 09/30/2024 6:41 AM EDT [facility] REAL ALBICANS, PARAPSILOSIS, TROPICALIS 0 19.961 - 30.770 ppm 09/30/2024 6:41 AM EDT [facility] REAL ALBICANS, PARAPSILOSIS, TROPICALIS Not Detected 19.961 - 30.770 ppm 09/30/2024 6:41 AM EDT [facility] REAL GLABRATA 0 23.000 - 32.138 ppm 09/30/2024 6:40 AM EDT [facility] REAL GLABRATA Not Detected 23.000 - 32.138 ppm 09/30/2024 6:40 AM EDT [facility] REAL KRUSEI 0 23.000 - 32.271 ppm 09/30/2024 6:40 AM EDT [facility] REAL KRUSEI Not Detected 23.000 - 32.271 ppm 09/30/2024 6:40 AM EDT [facility] CHLAMYDIA TRACHOMATIS 0 23.000 - 31.467 ppm 09/30/2024 6:41 AM EDT [facility] CHLAMYDIA TRACHOMATIS Not Detected 23.000 - 31.467 ppm 09/30/2024 6:41 AM EDT [facility] GARDNERELLA VAGINALIS 0 19.961 - 24.689 ppm 09/30/2024 6:40 AM EDT [facility] GARDNERELLA VAGINALIS Not Detected 19.961 - 24.689 ppm 09/30/2024 6:40 AM EDT [facility] MEGASPHAERA (TYPES 1, 2) 0 19.961 - 24.689 ppm 09/30/2024 6:41 AM EDT [facility] MEGASPHAERA (TYPES 1, 2) Not Detected 19.961 - 24.689 ppm 09/30/2024 6:41 AM EDT [facility] NEISSERIA GONORRHOEAE 0 23.000 - 32.117 ppm 09/30/2024 6:41 AM EDT [facility] NEISSERIA GONORRHOEAE Not Detected 23.000 - 32.117 ppm 09/30/2024 6:41 AM EDT [facility] TRICHOMONAS VAGINALIS 0 23.000 - 32.119 ppm 09/30/2024 6:40 AM EDT [facility] TRICHOMONAS VAGINALIS Not Detected 23.000 - 32.119 ppm 09/30/2024 6:40 AM EDT [facility] MYCOPLASMA GENITALIUM 0 19.961 - 24.689 ppm 09/30/2024 6:41 AM EDT [facility] MYCOPLASMA GENITALIUM Not Detected 19.961 - 24.689 ppm 09/30/2024 6:41 AM EDT [facility] Tissue 09/28/2024 3:56 PM EDT 09/30/2024 1:41 AM EDT us Daja CUELLAR LAB BLOOD ORDERABLES Final Resul t [facility] [address] [facility] [address] * BOX TEST (08/22/2024 10:32 AM EDT) BOX TEST SENT OUT [facility] BOX1 [facility] BOX2 08/22/24 [facility] 08/22/2024 10:3 2 AM EDT 08/22/2024 10:36 AM EDT Narrative [facility] - 08/22/2024 10:38 AM EDT UNITY BOX Generic External Data Provider LAB BLOOD ORDERAB LES Final Result Performing Organization Address [facility] Co ny Phone Number [facility] * HBSAG SCREEN (08/22/2024 10:32 AM EDT) [facility] HBSAG SCREEN Negative Negative [facility] Comment: Performed at: [address] [id number] [employer] Paralegal: Anthony Harrison PhD, Phone: [phone] 08/22/2024 10:3 2 AM EDT 08/22/2024 10:36 AM EDT Narrative [facility] - 08/23/2024 12:08 PM EDT Jose Maxim DO LAB BLOOD ORDERABLES Final Resul t Performing Organization Address [facility] Phone Number [facility] * RAPID PLASMA REAGIN, QUANT (08/22/2024 10:32 AM EDT) [facility] RAPID PLASMA REAGIN, QUANT Non Reactive NonRea<1: 1 titer [facility] Comment: Please Note: This test does not meet current guidelines for screening and diagnosis of syphilis. This test is intended for following treatment response in patients being treated for syphilis infection. To screen for syphilis infection, a reflex cascade that includes both RPR and a treponema-specific assay should be utilized, such as Treponema pallidum (Syphilis) Screening [place] (274714) or Rapid Plasma Reagin (RPR) Test With Reflex to Quantitative RPR and Confirmatory Treponema pallidum Antibodies (162069). Performed at: [address] [id number] [employer] Paralegal: Anthony Harrison PhD, Phone: [phone] 08/22/2024 10:3 2 AM EDT 08/22/2024 10:36 AM EDT Narrative [facility] - 08/23/2024 12:08 PM EDT Jose Maxim DO LAB BLOOD ORDERABLES Final Resul t Performing Organization Address [facility]/ZIP Co de Phone Number [facility] * HIV AB/P24 AG WITH REFLEX (08/22/2024 10:32 AM EDT) Pathologist [facility] HIV AB/P24 AG SCREEN Non Reactive Non Reactive [facility] Comment: HIV-1/HIV-2 antibodies and HIV-1 p24 antigen were NOT detected. There is no laboratory evidence of HIV infection. HIV Negative Performed at: [address] [id number] [employer] Paralegal: Anthony Harrison PhD, Phone: [phone] 08/22/2024 10:3 2 AM EDT 08/22/2024 10:36 AM EDT Narrative [facility] - 08/23/2024 5:07 AM EDT us Jose Pan DO LAB BLOOD ORDERABLES Final Resul t Performing Organization Address [facility] Phone Number [facility] * HCV ANTIBODY RFX TO QUANT PCR (08/22/2024 10:32 AM EDT) [facility] HCV AB Non Reactive Non Reactive [facility] INTERPRETATION: Comment . [facility] Comment: Not infected with HCV unless early or acute infection is suspected (which may be delayed in an immunocompromised individual), or other evidence exists to indicate HCV infection. Performed at: [address] [id number] [employer] Paralegal: Anthony Harrison PhD, Phone: [phone] 08/22/2024 10:3 2 AM EDT 08/22/2024 10:36 AM EDT Narrative [facility] 08/23/2024 7:07 AM EDT us Generic External Data Provider LAB BLOOD ORDERAB LES Final Result Performing Organization Address [facility] de Phone Number [facility] * MLR HEMOGLOBIN A1C (08/22/2024 10:32 AM EDT) [facility] GLYCOHEMOGLOBIN A1C 5.0 4.5 - 6.2 % [facility] Comment: ADA RECOMMENDED LIMIT 4.0 - 6.0 ADA THERAPEUTIC TARGET < 7.0 ACTION SUGGESTED > 7.0 ESTIMATED AVERAGE GLUCOSE 97 mg/dL TB 08/22/2024 10:3 2 AM EDT 08/22/2024 10:36 AM EDT Narrative [facility] - 08/22/2024 11:22 AM EDT us Jose Chacono DO CL[facility] Final Result Performing Organization Address [facility]/ZIP Co de Phone Number [facility] * ALL TYPE AND SCREEN (08/22/2024 10:32 AM EDT) [facility] BLOOD TYPE A Positive [facility] ANTIBODY SCREEN NEGATIVE TB 08/22/2024 10:3 2 AM EDT 08/22/2024 10:36 AM EDT [facility]INIS[facility] - 08/22/2024 11:52 AM EDT [facility] , Generic External Data Provider [facility] F inal Result Performing Organization Address [facility] de Phone Number [facility] * ALL RUBELLA IGG AB (08/22/2024 10:32 AM EDT) [facility] RUBELLA ANTIBODIES, IGG 3.49 Immune >0.99 index [facility] Comment: Non-immune <0.90 Equivocal 0.90 - 0.99 Immune >0.99 Performed at: [address] [id number] [employer] Paralegal: Anthony Harrison PhD, Phone: [phone] 08/22/2024 10:3 2 AM EDT 08/22/2024 10:36 AM EDT Narrative [facility] - 08/23/2024 7:07 AM EDT Generic External Data Provider [facility] F inal Result Performing Organization Address [facility] Co de Phone Number [facility] * (ABNORMAL) ALL CBC WITH AUTO DIFF (08/22/2024 10:32 AM EDT) [facility] WBC 8.1 4.0 - 11.0 10 3/uL [facility]H TBH RBC 4.35 4.20 - 5.40 10 6/uL [facility]H HGB 13.5 12.0 - 16.0 g/dL [facility] TBH HCT 38.5 36.0 - 48.0 % [facility]H MCV 88.5 81.0 - 99.0 fL [facility]H TBH MCH 31.0 26.7 - 34.0 pg TBH TB MCHC 35.1 29.9 - 35.2 g/dL TB[facility] TB RDW 12.3 11.0 - 15.0 % [facility] TBH PLT 282 150 - 450 10 3/uL [facility] TBH MPV 9.4(L) 9.5 - 13.5 fL [facility] NEUTROPHILS PERCENT AUTO 70.9 43.0 - 75.0 % [facility] LYMPHOCYTES PERCENT AUTO 22.2 20.5 - 60.0 % [facility] MONOCYTES PERCENT AUTO 5.6 1.7 - 12.0 % [facility] TBH EO % 0.9 0.9 - 7.0 % [facility] BASOPHILS PERCENT AUTO 0.2 0.2 - 2.0 % [facility] IMMATURE GRANULOCYTES PCT AUTO 0.2 0.0 - 0.5 % [facility] NEUTROPHILS ABSOLUTE AUTO 5.7 1.4 - 6.5 10 3/uL [facility] LYMPHOCYTES ABSOLUTE AUTO 1.8 1.2 - 3.8 10 3/uL [facility] MONOCYTES ABSOLUTE AUTO 0.5 0.3 - 0.8 10 3/uL [facility] TBH EO # 0.1 0.0 - 0.7 10 3/uL [facility] BASOPHILS ABSOLUTE AUTO 0.0 0.0 - 0.1 10 3/uL [facility] IMMATURE GRANULOCYTES ABS AUTO 0.02 0.00 - 0.03 10 3/uL [facility] 08/22/2024 10:3 2 AM EDT 08/22/2024 10:36 AM EDT Narrative [facility] - 08/22/2024 10:47 AM EDT us Jose Maxim DO [facility] Final Result [facility] * URINE CULTURE, ROUTINE (08/22/2024 10:14 AM EDT) URINE CULTURE, ROUTINE Urine Culture, Routine [facility] URINE CULTURE, ROUTINE Culture shows less than 10,000 colony forming units of bacteria per [facility] URINE CULTURE, ROUTINE milliliter of urine. This colony count is not generally considered [facility] URINE CULTURE, ROUTINE to be clinically significant. [facility] URINE CULTURE, ROUTINE Performed at: - [facility], ROUTINE [address], [place] [id number] [facility] URINE CULTURE, ROUTINE [employer] Paralegal: Anthony Harrison PhD, Phone: [phone] [facility] 08/22/2024 10:1 4 AM EDT 08/22/2024 10:36 AM EDT Narrative [facility] - 08/23/2024 9:07 PM EDT us Generic External Data Provider LAB BLOOD ORDERAB LES Final Result [facility] * [facility] DRUG SCREEN RAPID (URINE) (08/22/2024 10:14 AM EDT) CANNABINOID SCREEN URINE NEGATIVE NEGATIVE TB[facility] PHENCYCLIDINE SCREEN URINE NEGATIVE NEGATIVE TB[facility] COCAINE SCREEN URINE NEGATIVE NEGATIVE TBH METHAMPHETAMINES SCREEN URINE NEGATIVE NEGATIVE TBH OPIATE SCREEN URINE NEGATIVE NEGATIVE TBH AMPHETAMINE SCREEN URINE NEGATIVE NEGATIVE TBH BENZODIAZEPINES SCREEN URINE NEGATIVE NEGATIVE TBH TRICYCLIC ANTIDEPRESSANT URINE NEGATIVE NEGATIVE TBH METHADONE SCREEN URINE NEGATIVE NEGATIVE TBH BARBITURATES SCREEN URINE NEGATIVE NEGATIVE TBH OXYCODONE SCREEN URINE NEGATIVE NEGATIVE TBH BUPRENORPHINE SCREEN URINE NEGATIVE NEGATIVE [facility] Comment: DRUG CLASS TEST SYSTEM CUT-OFF CONCENTRATIONS ARE FOLLOWS: AMP (Amphetamine): 500 ng/mL BAR (Barbiturates): 200 ng/mL BZO (Benzodiazepines): 150 ng/mL BUP (Buprenorphine): 10 ng/mL BO (Cocaine): 150 ng/mL mAMP (Methamphetamine): 500 ng/mL MTD (Methadone): 200 ng/mL OPI (Opiates): 100 ng/mL OXY (Oxycodone): 100 ng/mL PCP (Phencyclidine): 25 ng/mL THC (Cannabinoids): 50 ng/mL TCA (Trycyclic Antidepressants): 300 ng/mL 08/22/2024 10:1 4 AM EDT 08/22/2024 10:36 AM EDT Narrative [facility] - 08/22/2024 11:05 AM EDT us Jose Maxim DO CLINISYNC Final Result [facility] * (ABNORMAL) POCT , urine manually resulted (08/18/2024 1:41 PM EDT) Preg Test, Ur Positive Negative Urine 08/18/2024 1:41 PM EDT us Jose Maxim DO POINT OF CARE TEST ENTER/EDIT OR DERABLES Final Result * US OB transvaginal (08/18/2024 12:58 PM EDT) Anatomical Region Laterality Modality Body Ultrasound 08/21/2024 8:22 PM EDT Narrative 08/21/2024 8:22 PM EDT EXAM: US OB TRANSVAGINAL HISTORY: Dating. LMP [...] II, MD, PHD at 21-Aug-2024 08:21:12 PM [facility] Procedure Note Carmina Reynoso MD - 08/21/2024 EXAM: US OB TRANSVAGINAL HISTORY: Dating. LMP 06/19/2024. . COMPARISON: None. TECHNIQUE: Two-dimensional transvaginal grayscale and color Dopplerultrasound imaging of the pelvis was performed. FINDINGS: The uterus demonstrates a normal homogeneous echotexture. The cervical osis closed. The right ovary measures 4.5 x 1.7 x 1.9 cm and demonstrates a normalechotexture. There is normal color Doppler flow. The left ovary measures 4.2 x 2.8 x 3.0 cm and demonstrates a normalechotexture. There is normal color Doppler flow. No fluid is present within the cul-de-sac. There is a single, live intrauterine gestation identified with a fetalheart rate of 181 beats per minute and a crown-rump length measurement of2.2 cm, correlating to a gestational age of 8 weeks 6 days (+/- 6 days).There is no subchorionic hemorrhage visualized. A yolk sac isvisualized. IMPRESSION: 1. Single, live intrauterine gestation 8 weeks, 4 days by LMP. Today'sultrasound measurements correlate with a gestational age of 8 weeks 6days (+/- 6 days). ALAN by today's ultrasound is 05/25/2024. Interpreted by: Electronically signed by CARMINA REYNOSO II, MD, PHD [id number] 08:21:12 PM [facility] us Jose Maxim DO IMG OB US PROCEDURES Final Resul t * URINE CULTURE - [facility] (08/12/2024 8:15 PM EDT) [facility] URINE CULTURE - FR Urine Culture - FR <9,000 colonies/ml mixed [facility] URINE CULTURE - FR bacterial skin contaminants [facility] URINE CULTURE - FR 2 Days [facility] URINE CULTURE - [facility] URINE CULTURE - [facility] Testing performed at [facility] URINE CULTURE - FR [address] [place] [address] [facility] 08/12/2024 8:15 PM EDT 08/12/2024 8:24 PM EDT Narrative CLIN[facility] - 08/15/2024 3:30 PM EDT us Generic External Data Provider LAB BLOOD ORDERAB LES Final Result [facility] * Urine culture (08/12/2024 8:15 PM EDT) [facility] NOTE <9,000 colonies/ml mixed bacterial skin contaminants 2 Days 08/15/2024 7:57 AM EDT [facility] Urine Urine specimen obtained by clean catch procedure / Unknown 08/12/2024 8:15 PM EDT 08/13/2024 12:40 PM EDT Comment:Clean-Voided Midstre am [facility] MICROBIOLOGY - GENERAL ORDER DAGMAR Final Result Performing Organization Address [facility] Co de Phone Number [facility] [address] [place] [address], [facility] [address] [place] [address] from Last 3 Months Insurance [facility] Care Teams Eyedotter Relationship Specialty Start Date End Date Sri Ramírez MD [address] [place] [address] PCP - General Family Medicine 09/19/22 Kayla Kahn DO [address] [place] [address] Referring Physician 09/19/22
--- OUTSIDE RECORDS SUMMARY | 2024-11-07 10:58 | XMS_ITS | Encounter Summary ---
Author Organization [facility] Address [address] [facility] [place] [address] Care Team Providers Care Administrative Director Name Role Phone Sri Ramírez MD Primary Care Provider [phone] Kayla Kahn DO Unavailable [phone] Encounter Details Date Type Department Care Team (Late st Contact Info) Description 08/14/2024 Abstract [facility] [address] [facility] [place] [address] Sri Ramírez MD [address] [facility] [place] [address] Social History Tobacco Use Types Packs/Day Years [...] week 09/24/2023 How often do you attend [facility] or zoroastrian services? Patient declined 09/24/2023 Do you belong to any clubs o r organizations such as mandaeism groups, unions, fraternal or athletic groups, or [...] Recorded Patient Health Questionnaire-2 Score 0 07/18/2024 [facility] of Occupat ional [facility] - Occupational Stress Questionnaire Answer Date Recorded [...] any time in the past 12 m [facility], were you homeless or living in a long term (including now)? No 09/24/2023 Comments No Sex and Gender Information Value Date Recorded Sex Assigned at Not on file Legal Sex Female 6:40 PM EDT Gender Identity Not on file Sexual Orientation Not on file documented as of this encounter Plan of Treatment Upcoming Encounters Date Type Department Care Team (Late st Contact Info) Description 11/07/2024 2:00 PM EDT Routine [facility] [address] [place] [address] Jose Pan DO [address] [place], [place] [id number] documented as of this encounter Visit Diagnoses Not on filedocumented in this encounter Care Teams Administrative Director Relationship Specialty Start Date End Date Sri Ramírez MD [address] [place] [address] PCP - General Family Medicine 09/19/22 Kayla Kahn DO [address] [facility] [place] [address] Referring Physician 09/19/22 documented as of this encounter
--- OUTSIDE RECORDS SUMMARY | 2024-11-07 10:58 | XMS_ITS | Encounter Summary ---
Author Organization [facility] Address [address] [place] [address] Care Team Providers Care Cap Inspector Name Role Phone Sri Ramírez MD Primary Care Provider [phone] Kayla Kahn DO Unavailable [phone] Encounter Details Date Type Department Care Team (Late st Contact Info) Description 11/02/2024 Clinisync Result Encounter [facility] External Department Unsolicited Jose Pan DO [address] [place] [address] Social History Tobacco Use Types Packs/Day Years [...] How often do you attend chur or latter day services? Patient declined 09/24/2023 Do you belong to any clubs o r organizations such as uatsdin groups, unions, fraternal or athletic groups, or [...] 0 07/18/2024 [facility] of Occupat ional [facility] - Occupational Stress Questionnaire Answer Date [...] any time in the past 12 m [facility], were you homeless or living in a prison (including now)? No 09/24/2023 Estimated Date of [...] PM EDT Routine [facility] [address] [place] [address] Jose Pan DO [address] [place] [address] documented as of this encounter Procedures Procedure Name Priority Date/Time Associated Diagnosis Comments AFP, SERUM, OPEN SPINA BIFIDA Routine 11/02/2024 2:38 PM EDT documented in this encounter Results * AFP, SERUM, OPEN SPINA BIFIDA (11/02/2024 2:38 PM EDT) RESULTS Report . [facility] TEST RESULTS: *Screen Negative* . [facility] GEST. AGE ON COLLECTION DATE 19.4 . weeks [facility] GESTAT. AGE BASED ON LMP . [facility] Comment: Recalculations are not recommended when gestational dating by LMP and ultrasound are within 10 days. [age]AN [age] . [age] [facility] RACE . [facility] WEIGHT 153 . lbs [facility] INSULIN DEP DIABETES No . [facility] MULTIPLE GESTATION No . [facility] AFP VALUE 52.0 . ng/mL [facility] AFP MOM 1.01 . [facility] OS[place] [address] [place] [address] . [facility] INTERPRETATION Comment . [facility] Comment: Interpretation: Screen Negative This result [...] Customer Services to discuss available options. The [employer] recommends amniocentesis be offered to women age 35 and older. COMMENT: Comment . [facility] Comment: Alejandra Santiago, Ph.D., [facility] Director References: Available Upon Request. Multiples Of Median Cutoffs For AFP Elevations Mascorro 2.5 Black 2.8 IDD 2.0 Twins 4.5 Abbreviation Definitions IDD - Insulin Dep Diabetes OSBR - Open Spina Bifida Risk For further inquiries contact [employer] [facility] at [phone]. This test was developed and its performance characteristics determined by [employer]. It has not been cleared or approved by the Food and Drug Administration. Performed at: [facility] [address] [id number] Vp Medical: Halina Hill [facility], Phone: [phone] 11/02/2024 2:38 PM EDT 11/02/2024 2:40 PM EDT Narrative ANILA - 11/04/2024 1:07 AM EDT N N LMP [id number] 1 16 N 1 Y 153 N N N N N White/ us Generic External Data Provider LAB BLOOD ORDERAB LES Final Result Performing Organization Address City/State/[facility] Co in Phone Number [facility] documented in this encounter Visit Diagnoses Not on filedocumented in this encounter Care Teams Cap Inspector Relationship Specialty Start Date End Date Sri Ramírez MD [address] [facility] [place] [address] PCP - General Family Medicine 09/19/22 Kayla Kahn DO [address] [facility] [place] [address] Referring Physician 09/19/22 documented as of this encounter
--- OUTSIDE RECORDS SUMMARY | 2024-11-07 10:58 | XMS_ITS | Encounter Summary ---
Author Organization [facility] Address [address] [place] [address] Care Team Providers Care Color Paste Mixing Supervisor Name Role Phone Buffy Diane MD Primary Care Provider [phone] Kayla Kahn DO Unavailable [phone] Daisy Hurst BATTERY LOADER-AIR SUPPORT CONTROL OFFICER Unavailable Encounter Details Date Type Department Care Team (Late st Contact Info) Description 02/03/2024 Clinisync Result Encounter [facility] External Department Unsolicited Provider, Generic External Data Social History Tobacco Use Types Packs/Day Years [...] 09/24/2023 How often do you attend chur ch or buddhism services? Patient declined 09/24/2023 Do you belong to any clubs o r organizations such as temple groups, unions, fraternal or athletic groups, or [...] Date Recorded Patient Health Questionnaire-2 Score 0 11/16/2023 [facility] of Occupat ional Health - Occupational Stress Questionnaire Answer Date Recorded [...] any time in the past 12 m [facility], were you homeless or living in a half-way (including now)? No 09/24/2023 Comments Unknown Sex and Gender Information Value Date Recorded Sex Assigned at Not on file Legal Sex Female 6:40 PM EDT Gender Identity Not on file Sexual Orientation Not on file documented as of this encounter Plan of Treatment Upcoming Encounters Date Type Department Care Team (Late st Contact Info) Description 11/07/2024 2:00 PM EDT Routine [facility] [address] [place] [phone] Trista Pan DO [address] [place] [address] documented as of this encounter Procedures Procedure Name Priority Date/Time Associated Diagnosis Comments US PELVIS 02/03/2024 11:31 AM EDT documented in this encounter Results * US PELVIS (02/03/2024 11:31 AM EDT) Anatomical Region Laterality Modality Other 02/03/2024 11:3 1 AM EDT Narrative 02/03/2024 11:33 AM EDT The [address] [address] Ultrasound Report Signed Patient: FAHEEM BELCHER MR#: [id number] : 1995 Acct:[id number] Age/Sex: 28 / F ADM Date: 02/03/24 Loc: [facility] Attending Dr: Trista Pan D.O. Ordering Physician: Trista Pan D.O. Date of Service: 02/03/24 Procedure(s): US pelvis Accession Number(s): [id number] cc: BUFFY DIANE ; Trista Pan D.O. The [address] [address] Patient Name: FAHEEM BELCHER MRN: [facility]:[id number] date: 1995 Sex: F Assigned Patient Location: [facility] Current Patient Location: LAB Accession/Order Number: [id number] Exam Date: 02/03/2024 10:36 Report Date: 02/03/2024 11:31 At the request of: TRISTA PAN Procedure: US pelvis EXAMINATION: US pelvis HISTORY: PELVIC PAIN for 6 months increasing in severity COMPARISON: No relevant comparison available. TECHNIQUE: Transabdominal and/or transvaginal sonographic examination was performed as indicated by examination type. FINDINGS: UTERUS: Normal size and appearance. Uterus size: 9.1 x 3.0 x 4.7 cm ENDOMETRIUM: Normal homogeneous appearance. Endometrial thickness: 4 mm RIGHT OVARY: Normal size and appearance. Duplex Doppler demonstrates normal waveform and flow; resistive index 0.5. Ovary size: 4.0 x 2.3 x 3.9 cm LEFT OVARY: Normal size and appearance. Duplex Doppler demonstrates normal waveform and flow; resistive index 0.6. Ovary size: 4.5 x 2.3 x 2.4 cm CUL-DE-SAC: Unremarkable. No significant free fluid. BLADDER: Unremarkable. OTHER: None. US/US pelvis IMPRESSION: 1. Normal pelvic ultrasound. Electronically authenticated by: GARY VASQUEZ Date: 02/03/2024 11:31 Dictated By: Gary Vasquez M.D. Signed By: 02/03/24 1133 DD/ 1131 TD/TT: Medical Staff Assistant: Procedure Note Radiology, Radiologist, MD - 02/03/2024 [place] [address] Ultrasound Report Signed Patient: FAHEEM BELCHER RMR#: [id number] : 1995Acct:[id number] Age/Sex: 28 / FADM Date: 02/03/24 Loc: [facility] Attending Dr: Trista Pan D.O. Ordering Physician: Trista Pan D.O. Date of Service: 02/03/24 Procedure(s): US pelvis Accession Number(s): [id number] cc: BUFFY DIANE ; Trista Pan D.O. [address] [address] Patient Name: FAHEEM BELCHER MRN: [id number] date: 1995 Sex: F Assigned Patient Location: [facility] Current Patient Location: LAB Accession/Order Number: [id number] Exam Date: 02/03/2024 10:36 Report Date: 02/03/2024 11:31 At the request of: TRISTA PAN Procedure: US pelvis EXAMINATION: US pelvis HISTORY: PELVIC PAIN for 6 months increasing in severity COMPARISON: No relevant comparison available. TECHNIQUE: Transabdominal and/or transvaginal sonographic examination was performed as indicated by examination type. FINDINGS: UTERUS: Normal size and appearance. Uterus size: 9.1 x 3.0 x 4.7 cm ENDOMETRIUM: Normal homogeneous appearance. Endometrial thickness: 4 mm RIGHT OVARY: Normal size and appearance. Duplex Doppler demonstratesnormal waveform and flow; resistive index 0.5. Ovary size: 4.0 x 2.3 x 3.9 cm LEFT OVARY: Normal size and appearance. Duplex Doppler demonstrates normal waveform and flow; resistive index 0.6. Ovary size: 4.5 x 2.3 x 2.4 cm CUL-DE-SAC: Unremarkable. No significant free fluid. BLADDER: Unremarkable. OTHER: None. US/US pelvis IMPRESSION: 1. Normal pelvic ultrasound. Electronically authenticated by: GARY VASQUEZ Date: 02/03/2024 11:31 Dictated By: Gary Vasquez M.D. Signed By:02/03/24 1133 DD/ 1131 TD/TT: Medical Staff Assistant: us Generic External Data Provider [facility] Final Result documented in this encounter Visit Diagnoses Not on filedocumented in this encounter Care Teams Color Paste Mixing Supervisor Relationship Specialty Start Date End Date Buffy Diane MD [address] [place] [address] PCP - General Family Medicine 09/19/22 Daisy Hurst, BATTERY LOADER-AIR SUPPORT CONTROL OFFICER [address] [address] PCP - [place] [employer] 09/12/23 Kayla Kahn DO [address] [place] [address] Referring Physician 09/19/22 documented as of this encounter
--- OUTSIDE RECORDS SUMMARY | 2024-11-07 10:58 | XMS_ITS | Encounter Summary ---
Author Organization [facility] Address [address] [place] [address] Care Team Providers Care Electronic Health Records Specialist Name Role Phone Buffy Diane MD Primary Care Provider [phone] Kayla Kahn DO Unavailable [phone] Daisy Hurst PARI MUTUAL TICKET CHECKER-STRIPPING SHOVEL OILER Unavailable Encounter Details Date Type Department Care Team (Late st Contact Info) Description 03/22/2024 Clinisync Result Encounter [facility] External Department Unsolicited [...] often do you attend chur ch or oriental orthodox services? Patient declined 09/24/2023 Do you belong to any clubs o r organizations such as zoroastrian groups, unions, fraternal or athletic groups, or [...] Recorded Patient Health Questionnaire-2 Score 0 11/16/2023 [facility] of Occupat ional Health - Occupational Stress [...] any time in the past 12 m [facility], were you homeless or living in a intermediate (including now)? No 09/24/2023 Comments Unknown Sex [...] PM EDT Routine [facility] [address] [place] [phone] Jose Pan DO [address] [place] [address] documented as of this encounter Procedures Procedure Name Priority Date/Time Associated Diagnosis Comments XR ABDOMEN 1V 03/22/2024 11:48 AM EST documented in this encounter Results * XR ABDOMEN 1V (03/22/2024 11:48 AM EST) Anatomical Region Laterality Modality Other 03/22/2024 11:4 8 AM EST Narrative 03/22/2024 11:51 AM EST The [address] [address] XRay Report Signed Patient: FAHEEM BELCHER MR#: [id number] : 1995 Acct:[id number] Age/Sex: 29 / F ADM Date: 03/21/24 Loc: US Attending Dr: Bonita Yu JUNIOR QA ANALYST Ordering Physician: Bonita Yu NP Date of Service: 03/21/24 Procedure(s): XR abdomen 1V Accession Number(s): [id number] cc: BUFFY DIANE ; Bonita Yu NP The [address] [address] Patient Name: FAHEEM BELCHER MRN: [id number] date: 1995 Sex: F Assigned Patient Location: US Current Patient Location: US Accession/Order Number: [id number] Exam Date: 03/21/2024 13:38 Report Date: 03/22/2024 11:48 At the request of: BONITA YU Procedure: XR abdomen 1V EXAMINATION: XR abdomen 1V HISTORY: Kidney Stones COMPARISON: Ultrasound renal bilateral 03/21/2024 FINDINGS: KIDNEY/URETER - RIGHT: No visible renal or ureteral calcifications. KIDNEY/URETER - LEFT: No visible renal or ureteral calcifications. PELVIS: No convincing ureteral stones. Tiny calcification within lower right and lower left pelvis are nonspecific but favor phleboliths. BOWEL: No abnormal dilation or deviation. BONES: No acute abnormality. OTHER: Negative. No abnormal gaseous collections. XR/XR abdomen 1V IMPRESSION: 1. No visible urinary tract calculi on this study. Evaluation is limited by dense overlying bowel content. 2. Ultrasound of the kidneys performed on the same day showed several nonobstructing stones within the kidneys. Electronically authenticated by: GARY VASQUEZ Date: 03/22/2024 11:48 Dictated By: Gary Vasquez M.D. Signed By: 03/22/24 1151 DD/ 1148 TD/TT: Optometric Aide: Procedure Note Radiology, Radiologist, - 03/22/2024 [place] [address] XRay Report Signed Patient: FAHEEM BELCHER RMR#: [id number] : 1995Acct:[id number] Age/Sex: 29 / FADM Date: 03/21/24 Loc: US Attending Dr: Bonita Yu NP Ordering Physician: Bonita Yu NP Date of Service: 03/21/24 Procedure(s): XR abdomen 1V Accession Number(s): [id number] cc: BUFFY DIANE ; Bonita Yu NP The [place] [id number] Patient Name: FAHEEM BELCHER MRN: [facility]:[id number] date: 1995 Sex: F Assigned Patient Location: US Current Patient Location: US Accession/Order Number: [id number] Exam Date: 03/21/2024 13:38 Report Date: 03/22/2024 11:48 At the request of: BONITA YU Procedure: XR abdomen 1V EXAMINATION: XR abdomen 1V HISTORY: Kidney Stones COMPARISON: Ultrasound renal bilateral 03/21/2024 FINDINGS: KIDNEY/URETER - RIGHT: No visible renal or ureteral calcifications. KIDNEY/URETER - LEFT: No visible renal or ureteral calcifications. PELVIS: No convincing ureteral stones. Tiny calcification within lowerright and lower left pelvis are nonspecific but favor phleboliths. BOWEL: No abnormal dilation or deviation. BONES: No acute abnormality. OTHER: Negative. No abnormal gaseous collections. XR/XR abdomen 1V IMPRESSION: 1. No visible urinary tract calculi on this study. Evaluation is limitedby dense overlying bowel content. 2. Ultrasound of the kidneys performed on the same day showed several nonobstructing stones within the kidneys. Electronically authenticated by: GARY VASQUEZ Date: 03/22/2024 11:48 Dictated By: Gary Vasquez M.D. Signed By:03/22/24 1151 DD/ 1148 TD/TT: Optometric Aide: Generic External Data Provider [facility] Final Result documented in this encounter Visit Diagnoses Not on filedocumented in this encounter Care Teams Electronic Health Records Specialist Relationship Specialty Start Date End Date Buffy Diane MD [address] [place] [address] PCP - General Family Medicine 09/19/22 Daisy Hurst, PARI MUTUAL TICKET CHECKER-STRIPPING SHOVEL OILER [address] [facility] [address] [place] [address] PCP - [place] [facility] 09/12/23 Kayla Kahn DO [address] [place] [address] Referring Physician 09/19/22 documented as of this encounter
--- OUTSIDE RECORDS SUMMARY | 2024-11-07 10:58 | XMS_ITS ---
Author Organization [facility] Source Produ ction (ClinicalSummary Clone) Address Unknown Care Team Providers Care Rug Touch Up Painter Name Role Phone Unavailable Primary Care Physician Unavailab le Results * [UNITY] ANEUPLOIDY NIPT Performed by: Message Missile Component Value Range Date Fraction 9.4% 08/28/2024 06 :07 am UT Rh(D) NIPT RhD DETECTED 08/28/2024 06:0 7 am UTC Sex Chromosome Aneuploidy NOT DETECTED 06:07 am UTC Monosomy X LOW RISK <1 in 10,000 2024 06:07 am UTC Trisomy 13 LOW RISK <1 in 10,000 2024 06:07 am UTC Trisomy 18 LOW RISK <1 in 10,000 2024 06:07 am UTC Trisomy 21 LOW RISK <1 in 10,000 2024 06:07 am UTC Sex FEMALE 08/28/2024 06:0 7 am UTC Gestation WHITMAN 08/29/19 06:07 am UT For detailed report, see PDF See PDF 08/28/2024 06:07 am UTC 08/28/2024 06:0 7 am UT Social History Observation Value Start Date End Date
--- OUTSIDE RECORDS SUMMARY | 2024-11-07 10:58 | XMS_ITS | Encounter Summary ---
Author Organization [facility] Address [address] [place] [address] Care Team Providers Care Water Quality Analyst Name Role Phone Buffy Diane MD Primary Care Provider [phone] Kayla Kahn DO Unavailable [phone] Daisy Hurst GLOST PLACER-CEMENT TRUCK DRIVER Unavailable Encounter Details Date Type Department Care [...] often do you attend chur ch or sikhism services? Patient declined 09/24/2023 Do you belong to any clubs o r organizations such as jehovah's witness groups, unions, fraternal or athletic groups, or [...] Recorded Patient Health Questionnaire-2 Score 0 11/16/2023 [facility] - Occupational Stress [...] any time in the past 12 m [facility], were you homeless or living in a halfway (including now)? No 09/24/2023 Comments Unknown Sex [...] PM EDT Routine [facility] [address] [place] [address] Jose Pan DO [address] [place] [address] documented as of this encounter Procedures Procedure Name Priority Date/Time Associated Diagnosis Comments US RENAL BI 03/22/2024 6:57 AM EST documented in this encounter Results * US RENAL BI (03/22/2024 6:57 AM EST) Anatomical Region Laterality Modality Other 03/22/2024 6:57 AM EST Narrative 03/22/2024 6:59 AM EST The [address] [address] Ultrasound Report Signed Patient: FAHEEM BELCHER MR#: [id number] : 1995 Acct:[id number] Age/Sex: 29 / F ADM Date: 03/21/24 Loc: US Attending Dr: Bonita Yu CABANA ATTENDANT Ordering Physician: Bonita Yu NP Date of Service: 03/21/24 Procedure(s): US renal BI Accession Number(s): [id number] cc: BUFFY DIANE ; Bonita Yu NP The [address] [address] Patient Name: FAHEEM BELCHER MRN: [id number] date: 1995 Sex: F Assigned Patient Location: US Current Patient Location: Accession/Order Number: [id number] Exam Date: 03/21/2024 12:58 Report Date: 03/22/2024 06:57 At the request of: BONITA YU Procedure: US renal BI EXAMINATION: US renal BI HISTORY: Kidney Stones COMPARISON: No relevant comparison available. TECHNIQUE: Ultrasound examination was performed of the kidneys and urinary bladder. FINDINGS: RIGHT KIDNEY: Contain several small nonobstructing stones. Normal parenchymal echogenicity. Color Doppler demonstrates blood flow within the kidney. Kidney: 11.3 x 4.4 x 4.7 cm LEFT KIDNEY: Contain several nonobstructing stones, largest is 6 mm. Normal parenchymal echogenicity. Color Doppler demonstrates blood flow within the kidney. Kidney: 11.6 x 5.3 x 5.5 cm BLADDER: No visible wall thickening, mass, or calculi. Post void residual: 5 mL URETERAL JETS: Visualized bilaterally. US/US renal BI IMPRESSION: 1. Bilateral nonobstructing nephrolithiasis. Electronically authenticated by: GARY VASQUEZ Date: 03/22/2024 06:57 Dictated By: Gary Vasquez M.D. Signed By: 03/22/2459 DD/ TD/TT: Signal Inspector: Procedure Note Radiology, Radiologist, MD - 03/22/2024 [place] [address] Ultrasound Report Signed Patient: FAHEEM BELCHER RMR#: [id number] : 1995Acct:[id number] Age/Sex: 29 / FADM Date: 03/21/24 Loc: US Attending Dr: Bonita Yu CABANA ATTENDANT Ordering Physician: Bonita Yu NP Date of Service: 03/21/24 Procedure(s): US renal BI Accession Number(s): [id number] cc: BUFFY DIANE ; Bonita Yu NP The [address] [address] Patient Name: FAHEEM BELCHER MRN: [id number] date: 1995 Sex: F Assigned Patient Location: US Current Patient Location: Accession/Order Number: [id number] Exam Date: 03/21/2024 12:58 Report Date: 03/22/2024 06:57 At the request of: BONITA YU Procedure: US renal BI EXAMINATION: US renal BI HISTORY: Kidney Stones COMPARISON: No relevant comparison available. TECHNIQUE: Ultrasound examination was performed of the kidneys and urinary bladder. FINDINGS: RIGHT KIDNEY: Contain several small nonobstructing stones. Normalparenchymal echogenicity. Color Doppler demonstrates blood flow within the kidney.Kidney: 11.3 x 4.4 x 4.7 cm LEFT KIDNEY: Contain several nonobstructing stones, largest is 6 mm.Normal parenchymal echogenicity. Color Doppler demonstrates blood flow within the kidney. Kidney: 11.6 x 5.3 x 5.5 cm BLADDER: No visible wall thickening, mass, or calculi. Post void residual:5 mL URETERAL JETS: Visualized bilaterally. US/US renal BI IMPRESSION: 1. Bilateral nonobstructing nephrolithiasis. Electronically authenticated by: GARY VASQUEZ Date: 03/22/2024 06:57 Dictated By: Gary Vasquez M.D. Signed By:03/22/2459 DD/ 6 TD/TT: Signal Inspector: us Generic External Data Provider [facility] Final Result documented in this encounter Visit Diagnoses Not on filedocumented in this encounter Care Teams Water Quality Analyst Relationship Specialty Start Date End Date Buffy Diane MD [address] [place] [address] PCP - General Family Medicine 09/19/22 Daisy Hurst APRN-CEMENT TRUCK DRIVER [address] [place] [address] PCP - [place] [employer] 09/12/23 Kayla Kahn DO [address] [place] [address] Referring Physician 09/19/22 documented as of this encounter
--- OUTSIDE RECORDS SUMMARY | 2024-11-07 10:58 | XMS_ITS | Encounter Summary ---
Author Organization [facility] Address [address] [facility] [place] [address] Care Team Providers Care Outreach Consultant Name Role Phone Sri Ramírez MD Primary Care Provider [phone] Kayla Kahn DO Unavailable [phone] Maria Elena Stephenson WAREHOUSE HELPER Unavailable [phone] Daisy Hrust COAL OR ORE CONTROLLER-BODY REPAIRER Unavailable Encounter Details Date Type Department Care Team (Late Contact Info) Description 12/20/2022 Abstract [facility] [address] [facility] [place] [address] Sri Ramírez MD [address] [place] [address] Social History Tobacco Use Types Packs/Day Years Used Date Smoking Tobacco: Former Cigarettes Alcohol Use Standard Drinks/Week Comments Never 0 (1 standard drink = 0.6 oz pur e alcohol) caffeine: 1-2 cups/day coffee Comments Unknown Sex and Gender Information Value Date Recorded Sex Assigned at Not on file Legal Sex Female 6:40 PM EDT Gender Identity Not on file Sexual Orientation Not on file documented as of this encounter Plan of Treatment Upcoming Encounters Date Type Department Care Team (Late Contact Info) Description 11/07/2024 2:00 PM EDT Routine [facility] [address] [place] [address] Jose Pan DO [address] [place] [address] documented as of this encounter Visit Diagnoses Not on filedocumented in this encounter Care Teams Outreach Consultant Relationship Specialty Start Date End Date Sri Ramírez MD [address] [facility] [place] [address] PCP - General Family Medicine 09/19/22 Maria Elena Stephenson, WAREHOUSE HELPER [address] [place] [address] PCP - [facility] 10/11/22 Daisy Hurst APRN-BODY REPAIRER [address] [place] [address] PCP - [place] [facility] 09/12/23 Kayla Kahn DO [address] [place] [address] Referring Physician 09/19/22 documented as of this encounter
--- OUTSIDE RECORDS SUMMARY | 2024-11-07 10:58 | XMS_ITS | Encounter Summary ---
Author Organization [facility] Address [address] [facility] [place] [address] Care Team Providers Care Technical Laboratory Asst Name Role Phone Sri Ramírez MD Primary Care Provider [phone] Kayla Kahn DO Unavailable [phone] Encounter Details Date Type Department Care Team (Late st Contact Info) Description 08/15/2024 Abstract [facility] [address] [facility] [place] [address] Jose Pan DO [address] [facility] [address] [place], [facility] Social History Tobacco Use Types Packs/Day Years [...] week 09/24/2023 How often do you attend [facility] or congregational services? Patient declined 09/24/2023 Do you belong to any clubs o r organizations such as hindu groups, unions, fraternal or athletic groups, or [...] Recorded Patient Health Questionnaire-2 Score 0 07/18/2024 [facility] - Occupational Stress Questionnaire Answer Date [...] any time in the past 12 m [facility], were you homeless or living in a residential (including now)? No 09/24/2023 Comments No Sex [...] PM EDT Routine [facility] [address] [place] [place] [address] Jose Pan DO [address] [facility] [address] [place], [place] [id number] documented as of this encounter Visit Diagnoses Not on filedocumented in this encounter Care Teams Technical Laboratory Asst Relationship Specialty Start Date End Date Sri Ramírez MD [address] [place] [address] PCP - General Family Medicine 09/19/22 Kayla Kahn DO [address] [place] [address] Referring Physician 09/19/22 documented as of this encounter
--- OUTSIDE RECORDS SUMMARY | 2024-11-07 10:58 | XMS_ITS | Encounter Summary ---
Author Organization [facility] Address [address] [place] [address] Care Team Providers Care Storm Chaser Name Role Phone Sri Ramírez MD Primary Care Provider [phone] Kayla Kahn DO Unavailable [phone] Maria Elena Stephenson [employer] Unavailable [phone] Daisy Hurst STRAIGHTEDGE MAN-GAS METER REPAIR SUPERVISOR Unavailable Encounter Details Date Type Department Care Team (Late st Contact Info) Description 11/17/2022 Abstract [facility] [address] [place] [address] Maye Salvador, [employer] Social History Tobacco Use Types Packs/Day Years [...] PM EDT Routine [facility] [address] [facility] [place] [address] Jose Pan DO [address] [facility] [address] [place], [place] [address] documented as of this encounter Visit Diagnoses Not on filedocumented in this encounter Care Teams Storm Chaser Relationship Specialty Start Date End Date Sri Ramírez MD [address] [place] [address] PCP - General Family Medicine 09/19/22 Maria Elena Stephenson, VIC [address] [place] [address] PCP - [facility] 10/11/22 Daisy Hurst APRN-GAS METER REPAIR SUPERVISOR [address] [address] [facility] 09/12/23 Kayla Kahn DO [address] [place] [address] Referring Physician 09/19/22 documented as of this encounter
--- OUTSIDE RECORDS SUMMARY | 2024-11-07 10:58 | XMS_ITS | Encounter Summary ---
Author Organization [facility] Address [address] [facility] [place] [address] Care Team Providers Care Software Design Engineer Name Role Phone Sri Ramírez MD Primary Care Provider [phone] Kayla Kahn DO Unavailable [phone] Encounter Details Date Type Department Care Team (Late st Contact Info) Description 08/14/2024 Abstract [facility] [address] [facility] [place] [address] Sri Ramírez MD [address] [facility] [place] [address] Social History Tobacco Use Types [...] week 09/24/2023 How often do you attend [facility] or alevism services? Patient declined 09/24/2023 Do you belong to any clubs o r organizations such as pentecostalism groups, unions, fraternal or athletic groups, or [...] Recorded Patient Health Questionnaire-2 Score 0 07/18/2024 [facility] - Occupational Stress Questionnaire Answer Date [...] any time in the past 12 m [facility], were you homeless or living in a intermediate (including now)? No 09/24/2023 Comments No Sex [...] [address] [facility] [place] [address] Jose Pan DO [address] [facility] [address] [place], [place] [address] documented as of this encounter Visit Diagnoses Not on filedocumented in this encounter Care Teams Software Design Engineer Relationship Specialty Start Date End Date Sri Ramírez MD [address] [place] [address] PCP - General Family Medicine 09/19/22 Kayla Kahn DO [address] [facility] [place] [address] Referring Physician 09/19/22 documented as of this encounter
--- OUTSIDE RECORDS SUMMARY | 2024-11-07 10:58 | XMS_ITS | Encounter Summary ---
Author Organization [facility] Address [address] [facility] [address] Care Team Providers Care Threading Machine Operator Name Role Phone Sri Ramírez MD Primary Care Provider [phone] Kayla Kahn DO Unavailable [phone] Daisy Hurst PROFESSOR OF LATIN AMERICAN STUDIES-BIN PACKER Unavailable Encounter Details Date Type Department Care Team (Late st Contact Info) Description 04/01/2024 Abstract [facility] [address] [facility] [place] [address] Jose Pan DO [address] [facility] [address] [place], [facility] Social History Tobacco Use Types Packs/Day Years [...] week 09/24/2023 How often do you attend [facility] or islam services? Patient declined 09/24/2023 Do you belong to any clubs o r organizations such as holiness groups, unions, fraternal or athletic groups, or [...] Recorded Patient Health Questionnaire-2 Score 0 11/16/2023 [facility] Occupat ional [place] - Occupational Stress Questionnaire Answer Date Recorded [...] any time in the past 12 m [facility], were you homeless or living in a long term (including now)? No 09/24/2023 Comments Unknown Sex [...] OBGYN [address] [facility] [place] [address] Jose Pan DO [address] [facility] [place] [address] documented as of this encounter Visit Diagnoses Not on filedocumented in this encounter Care Teams Threading Machine Operator Relationship Specialty Start Date End Date Sri Ramírez MD [facility] [place] [address] PCP - General Family Medicine 09/19/22 Daisy Hurst APRN-BIN PACKER [address] [facility] [address] [place] [address] PCP - [facility] 09/12/23 Kayla Kahn DO [address] [place] [address] Referring Physician 09/19/22 documented as of this encounter
--- NOTE | 2024-11-07 10:59 | US_ITS ---
The [address] [address] Patient Name: FAHEEM BABB MRN: [id number] date: 1995 Sex: F Assigned Patient Location: Current Patient Location: US Accession/Order Number: [id number] Exam Date: 11/07/2024 12:17 Report Date: 11/07/2024 12:24 At the request of: TRISTA BIRCH DO Procedure: US OB cervical length CLINICAL DATA: Anatomy screening ULTRASOUND OB ANATOMY COMPARISON: 08/12/2024 There is a single live intrauterine gestation in transverse presentation with head to the maternal right. The amniotic fluid volume is subjectively normal. There is an anterior placenta which is unremarkable in appearance. There is cardiac and somatic activity with heart rate of 152 bpm. The neural axis and all 4 extremities were surveyed by the immigration lawyer. 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 No other abnormalities were reported. The stomach, bladder, three-vessel cord with insertion, kidneys, diaphragm, female genitalia, four-chamber heart with right and left outflow tracts and facial features were seen. The following measurements were obtained: Biparietal diameter 5.0 cm 21 weeks 1 day 84% Head circumference 18.4 cm 20 weeks 5 days 69% Abdominal circumference 14.9 cm 20 weeks 1 day 46% Femur length 3.3 cm 20 weeks 1 day 41% The composite ultrasound age based on these measurements is 20 weeks 4 days +/- 1 week 3 days. This is within standard deviation of dates based on last menstrual period on the comparison. US/US OB anatomy IMPRESSION: SINGLE LIVE INTRAUTERINE GESTATION WITH ULTRASOUND AGE OF 20 WEEKS 4 DAYS. UNREMARKABLE ANATOMY SURVEY OTHER THAN CHOROID PLEXUS CYSTS. OB CERVICAL LENGTH COMPARISON: 08/12/2024 The cervix was evaluated with the transvaginal probe. The cervix is closed and the length is estimated at 4.4 cm. The anterior placenta is approximately 3.1 cm from the internal cervical os. IMPRESSION: UNREMARKABLE, CLOSED CERVIX. Impression dictated by: Ana Michael M.D. 11/07/2024 12:24 PM Dictation Location: [place] [address] Electronically authenticated by: [id number] Y Date: 11/07/2024 12:24
--- NOTE | 2024-11-07 11:04 | US_ITS ---
The [address] [address] Patient Name: FAHEEM BABB MRN: [id number] date: 1995 Sex: F Assigned Patient Location: Current Patient Location: US Accession/Order Number: [id number] Exam Date: 11/07/2024 12:17 Report Date: 11/07/2024 12:24 At the request of: TRISTA BIRCH DO Procedure: US OB cervical length CLINICAL DATA: Anatomy screening ULTRASOUND OB ANATOMY COMPARISON: 08/12/2024 There is a single live intrauterine gestation in transverse presentation with head to the maternal right. The amniotic fluid volume is subjectively normal. There is an anterior placenta which is unremarkable in appearance. There is cardiac and somatic activity with heart rate of 152 bpm. The neural axis and all 4 extremities were surveyed by the esters and emulsifiers supervisor. 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 No other abnormalities were reported. The stomach, bladder, three-vessel cord with insertion, kidneys, diaphragm, female genitalia, four-chamber heart with right and left outflow tracts and facial features were seen. The following measurements were obtained: Biparietal diameter 5.0 cm 21 weeks 1 day 84% Head circumference 18.4 cm 20 weeks 5 days 69% Abdominal circumference 14.9 cm 20 weeks 1 day 46% Femur length 3.3 cm 20 weeks 1 day 41% The composite ultrasound age based on these measurements is 20 weeks 4 days +/- 1 week 3 days. This is within standard deviation of dates based on last menstrual period on the comparison. US/US OB cervical length IMPRESSION: SINGLE LIVE INTRAUTERINE GESTATION WITH ULTRASOUND AGE OF 20 WEEKS 4 DAYS. UNREMARKABLE ANATOMY SURVEY OTHER THAN CHOROID PLEXUS CYSTS. OB CERVICAL LENGTH COMPARISON: 08/12/2024 The cervix was evaluated with the transvaginal probe. The cervix is closed and the length is estimated at 4.4 cm. The anterior placenta is approximately 3.1 cm from the internal cervical os. IMPRESSION: UNREMARKABLE, CLOSED CERVIX. Impression dictated by: Ana Michael M.D. 11/07/2024 12:24 PM Dictation Location: [place] [address] Electronically authenticated by: [id number] Y Date: 11/07/2024 12:24
== END 2024-11-07 10:57 | disposition home or self-care (01) ==
LOC: US 10:56
PROVIDERS: PCP Family Medicine; Visit Provider Obstetrics & Gynecology
DX: Z36.89 Encounter for other specified antenatal screening (principal); Z3A.20 20 weeks gestation of pregnancy
CPT/HCPCS: 76805; 76817

== ENCOUNTER 2024-12-05 13:00 | Outpatient (OUT) | payer BC, SELFPAY ==
--- OUTSIDE RECORDS SUMMARY | 2024-12-05 13:02 | XMS_ITS | Patient Health Record ---
Author Organization [facility] Address [address] [place] [address] Care Team Providers Care Coding Coordinator Name Role Phone Dr. Elpidio Michelle Primary Care Provider Reason For Referral No Information Plan Of Treatment No Information Insurance Providers Payer Name Payer Address Payer Phone Subscriber Number Group Number Insured Name Patient Relationship to Insured Coverage Start Date Coverage End Date zDENTAL BUCKEYE-te rmed 22 [address] [address] [place] [address] [id number] FAHEEM BASURTO Self - [facility] the [facility] [employer] after BUCKEYE-te rmed 22 [address] [place] [address] [id number] FAHEEM BASURTO Self - patient is the insured 1
--- NOTE | 2024-12-05 13:06 | US_ITS ---
The [address] [address] Patient Name: FAHEEM BABB MRN: [id number] date: 1995 Sex: F Assigned Patient Location: US Current Patient Location: US Accession/Order Number: [id number] Exam Date: 12/05/2024 13:08 Report Date: 12/05/2024 14:33 At the request of: JAKE PHAM Procedure: US OB follow up OB ultrasound. Reason for exam:Follow-up choroid plexus cysts. Comparison:Anatomy ultrasound 11/07/2024 Technique: Transabdominal imaging of the gravid uterus was obtained. Findings: The previously identified choroid plexus cysts are less conspicuous on today's study but likely still appear to be present as seen on the cine imaging. heart rate 159 bpm. US/US OB follow up Impression: The previously identified choroid plexuses are less conspicuous on today's study but appear to still be present best seen on the cine imaging. Impression dictated by: Elpidio Brush Jr., D.O. 12/05/2024 2:33 PM Dictation Location: [place] [address] Electronically authenticated by: [id number] Y Date: 12/05/2024 14:33
== END 2024-12-05 13:01 | disposition home or self-care (01) ==
LOC: US 13:00
PROVIDERS: PCP Family Medicine; Visit Provider Nurse Practitioner Family
DX: Z36.89 Encounter for other specified antenatal screening (principal); Z36.2 Encounter for other antenatal screening follow-up
CPT/HCPCS: 76816

== ENCOUNTER 2024-12-10 09:04 | Outpatient (OUT) | payer BC, SELFPAY ==
--- OUTSIDE RECORDS SUMMARY | 2024-12-05 13:50 | XMS_ITS | Encounter Summary ---
Author Organization [facility] Address [address] [place] [address] Care Team Providers Care Rag Washer Name Role Phone Sri Ramírez MD Primary Care Provider [phone] Kayla Kahn DO Unavailable [phone] Reason for Visit * Reason Comments Routine Visit Encounter Details Date Type Department Care Team ([facility] Contact Info) Description 12/05/2024 1:50 PM EDT Routine [facility] [address] [facility] [address] Jose Pan DO [address] [facility] [place] [address] Acne, unspecified acne type (Primary Dx); Second trimester ([facility]); 24 weeks gestation of ([facility]); Diabetes mellitus screening; Screening, , for anatomic survey ([facility]) Social History Tobacco Use Types Packs/Day Years [...] How often do you attend chur or hoahaoism services? Patient declined 09/24/2023 Do you belong to any clubs o r organizations such as gnosticist groups, unions, fraternal or athletic groups, or [...] Recorded Patient Health Questionnaire-2 Score 0 07/18/2024 [facility] Occupat ional Health - Occupational Stress [...] any time in the past 12 m [facility], were you homeless or living in a detention (including now)? No 09/24/2023 Estimated Date of Delivery Comme nts Yes 03/26/2025 Based on last me nstrual period of 06/19/2024 Sex and Gender Information Value Date Recorded Sex Assigned at Not on file Legal Sex Female 6:40 PM EDT Gender Identity Not on file Sexual Orientation Not on file documented as of this encounter Last Filed Vital Signs Vital Sign Reading Time Taken Comments Blood Pressure 110/72 12/05/2024 2:09 PM EDT Pulse - - Temperature - - Respiratory Rate - - Oxygen Saturation - - Inhaled Oxygen Concentration - - Weight 73 kg (161 lb) 12/05/2024 2:09 PM EDT Height - - Body Mass Index 25.22 07/18/2024 8:15 AM EDT documented in this encounter Progress Notes * Padmini Gunter NP - 12/05/2024 1:50 PM EDT Reason for Appointment: Patient ID: Sarah Belcher is a 29 y.o. female who presents for Routine Visit Patient presents today for Return OB appointment. MEDICATIONS Current Outpatient Medications Medication Instructions co-enzyme Q-10 30 mg, Daily Multiple Vitamin (multivitamin) tablet 1 tablet, Daily ondansetron ODT (Zofran-ODT) 4 MG disintegrating tablet DISSOLVE 1 TABLET on tongue EVERY 8 HOURS NEEDED FOR NAUSEA & FOR VOMITING ALLERGIES Allergies Allergen Reactions Bacitracin-Polymyxin B Other Reaction(s): Unknown Escitalopram Other groggy Other Reaction(s): Sleepy Buspar [Buspirone] Anxiety Caused heart palpitations and increased anxiety PROBLEMS Active Ambulatory Problems Diagnosis Date Noted Adjustment disorder with mixed anxiety and depressed mood 09/06/2022 Amenorrhea 09/06/2022 Anxiety 09/06/2022 Bipolar affective disorder, currently depressed, moderate ([facility]) 09/06/2022 Complication of intrauterine device (IUD) 09/06/2022 Inattention 09/06/2022 Irregular menses 09/06/2022 Irritable bowel syndrome with diarrhea 09/06/2022 Menstrual cramp 09/06/2022 Pain in pelvis 09/06/2022 Generalized anxiety disorder 09/06/2022 Post-traumatic stress disorder 09/06/2022 Slow transit constipation 09/06/2022 Anxiety during ([facility]) 03/26/2020 Depression affecting ([facility]) 03/26/2020 History of chlamydia 03/26/2020 Bacterial infection due to mycoplasma 02/15/2024 Vaginal odor 02/15/2024 Urinary tract infection without hematuria 02/15/2024 Bacterial vaginosis 02/15/2024 Bladder pain 07/18/2024 Calculus of kidney 07/25/2013 Gross hematuria 07/18/2024 Resolved Ambulatory Problems Diagnosis Date Noted No Resolved Ambulatory Problems Past Medical History: Diagnosis Date ADHD (attention deficit hyperactivity disorder) Bipolar disorder (manic depression) ([facility]) BMI 24.0-24.9, adult Chicken pox 2007 Headache IBS (irritable bowel syndrome) Intrauterine device surveillance Pelvic pain Urinary tract infection HISTORY PAST MEDICAL HISTORY SOCIAL HISTORY Past Medical History: Diagnosis Date ADHD (attention deficit hyperactivity disorder) Adjustment disorder with mixed anxiety and depressed mood Amenorrhea Anxiety Bipolar disorder (manic depression) ([facility]) BMI 24.0-24.9, adult Chicken pox 2007 Complication of intrauterine device (IUD) Headache IBS (irritable bowel syndrome) IBS with [...] SMEAR 05/21/2021 negative WISDOM TOOTH EXTRACTION 2015 [place] teeth REVIEW OF SYSTEMS Review of Systems: [...] nursing note reviewed. Exam conducted with a unemployment inspector present. Vitals: Estimated body mass index is 25.22 kg/m?? as calculated from the following: Height as of 07/18/24: 5' 7 . Weight as of this encounter: 161 lb. BP: 110/72 Patient's last menstrual period was 06/19/2024. ASSESSMENT & PLAN ICD-10-CM 1. Second trimester ([facility]) Z34.92 POCT urinalysis dipstick manually resulted 2. 24 weeks gestation of ([facility]) Z3A.24 3. Diabetes mellitus screening Z13.1 CBC Glucose tolerance, 1 hour CBC Glucose tolerance, 1 hour Return OB: Patient presents today for a routine obstetrics appointment. Patient is currently 24w1d . Patient states she is doing well but has complaints of being tired due to current . Patient has verbalizes frequent movement. labor precautions was discussed/given and patient was instructed to perform kick counts three times a day. Orders Placed This Encounter Procedures CBC Glucose tolerance, 1 hour POCT urinalysis dipstick manually resulted Follow Up: Patient is to return to office in 2 week for routine OB appointment. Will repeat anatomy ultrasoundin 4 weeks at 28 weeks. Reviewed ultrasound today and previously identified choroid plexuses are less conspicuous on 12/05/24 study. Documented by Padmini Gunter NP on behalf of: Jose Pan DO documented in this encounter Plan of Treatment Upcoming Encounters Date Type Department Care Team (Late st Contact Info) Description 12/28/2024 1:20 PM EDT Routine [facility] [address] [facility] [address] Jose Pan DO [address] [place], [place] [id number] Scheduled Orders Name Type Priority Associated Diagnoses Orde r Schedule CBC Lab Routine Diabetes mellitus screening Expected: 12/05/2024 (Approximate), Expires: 12/05/2025 Glucose tolerance, 1 hour Lab Routine Diabetes mellitus screening Expected: 12/05/2024 (Approximate), Expires: 12/05/2025 OB 14+ weeks anatomy scan Imaging Routine Screening, , for anatomic survey ([facility]) Expected: 12/05/2024, Expires: 03/07/2025 documented as of this encounter Procedures Procedure Name Priority Date/Time Associated Diagnosis Comments POCT URINALYSIS DIPSTICK Routine 12/05/2024 2:15 PM EDT Second trimester ([facility]) documented in this encounter Results * POCT urinalysis dipstick manually resulted (12/05/2024 2:15 PM EDT) Color, UA Yellow Clarity, UA Clear Glucose, UA Negative Negative - 2000(110) ++++ mg/dL Bilirubin, UA Negative Negative - 4(70) +++ mg/dL Ketones, UA Negative Negative - 160(16) ++++ mg/dL Spec Grav, UA 1.010 1 - 1.03 Blood, UA Negative Negative - 50 Allen/mcL pH, UA 6.5 5 - 9 Protein, UA Negative Negative - 2000(20) ++++ mg/dL Urobilinogen, UA 0.2 0.2 - 12 mg/dL Leukocytes, UA Negative Negative - 500+++ Andrei/mcL Nitrite, UA Negative Negative - Positive Urine 12/05/2024 2:15 PM EDT [facility] DO POINT OF CARE TEST ENTER/EDIT OR DERABLES Final Result documented in this encounter Visit Diagnoses Diagnosis Acne, unspecified acne type- Primary Second trimester ([facility]) state, incidental 24 weeks gestation of ([facility]) Diabetes mellitus screening Screening for diabetes mellitus Screening, , for anatomic survey ([facility]) Encounter for anatomic survey documented in this encounter Care Teams Rag Washer Relationship Specialty Start Date End Date Sri Ramírez MD [address] [place] [address] PCP - General Family Medicine 09/19/22 Kayla Kahn DO [address] [place] [address] Referring Physician 09/19/22 documented as of this encounter
--- OUTSIDE RECORDS SUMMARY | 2024-12-10 09:06 | XMS_ITS | Encounter Summary ---
Author Organization [facility] Address [address] [place] [address] Care Team Providers Care Fuel Truck Driver Name Role Phone Buffy Diane MD Primary Care Provider [phone] Kayla Kahn DO Unavailable [phone] Daisy Hurst ARCHITECT MANAGER-PRODUCT DEVELOPMENT CONSULTANT Unavailable Encounter Details Date Type Department Care [...] often do you attend chur ch or pentecostal services? Patient declined 09/24/2023 Do you belong [...] Recorded Patient Health Questionnaire-2 Score 0 11/16/2023 [facility] Occupat ional Health - [...] any time in the past 12 m [facility], were you homeless or living in a alf (including now)? No 09/24/2023 Comments Unknown Sex [...] [address] [place] [address] Jose Pan DO [address] [facility] [place] [address] documented as of this encounter Procedures Procedure Name Priority Date/Time Associated Diagnosis Comments US RENAL BI 03/22/2024 6:57 AM EST documented in this encounter Results * US RENAL BI (03/22/2024 6:57 AM EST) Anatomical Region Laterality Modality Other 03/22/2024 6:57 AM EST Narrative 03/22/2024 6:59 AM EST The [address] [address] Ultrasound Report Signed Patient: FAHEEM BELCHER MR#: [id number] : 1995 Acct:[id number] Age/Sex: 29 / F ADM Date: 03/21/24 Loc: US Attending Dr: Bonita Yu SENIOR ANALYTICAL CHEMIST Ordering Physician: Bonita Yu NP Date of Service: 03/21/24 Procedure(s): US renal BI Accession Number(s): [id number] cc: BUFFY DIANE ; Bonita Yu NP The [address] [address] Patient Name: FAHEEM BELCHER MRN: [id number] date: 1995 Sex: F Assigned Patient Location: US Current Patient Location: Accession/Order Number: [id number] Exam Date: 03/21/2024 12:58 Report Date: 03/22/2024 [...] Vasquez M.D. Signed By: 03/22/2459 DD/ TD/TT: Stiff Leg Derrick Operator: Procedure Note Radiology, Radiologist, MD - 03/22/2024 [place] [address] Ultrasound Report Signed Patient: FAHEEM BELCHER RMR#: [id number] : 1995Acct:[id number] Age/Sex: 29 / FADM Date: 03/21/24 Loc: US Attending Dr: Bonita Yu SENIOR ANALYTICAL CHEMIST Ordering Physician: Bonita Yu NP Date of Service: 03/21/24 Procedure(s): US renal BI Accession Number(s): [id number] cc: BUFFY DIANE ; Bonita Yu NP The [address] [address] Patient Name: FAHEEM BELCHER MRN: [id number] date: 1995 Sex: F Assigned Patient Location: US Current Patient Location: Accession/Order Number: [id number] Exam Date: 03/21/2024 12:58 Report Date: 03/22/2024 [...] Vasquez M.D. Signed By:03/22/2459 DD/ 6 TD/TT: Stiff Leg Derrick Operator: us Generic External Data Provider [facility] Final Result documented in this encounter Visit Diagnoses Not on filedocumented in this encounter Care Teams Fuel Truck Driver Relationship Specialty Start Date End Date Buffy Diane MD [address] [place] [address] PCP - General Family Medicine 09/19/22 Daisy Hurst APRN-PRODUCT DEVELOPMENT CONSULTANT [address] [place] [address] PCP - [place] [employer] 09/12/23 Kayla Kahn DO [address] [place] [address] Referring Physician 09/19/22 documented as of this encounter
--- OUTSIDE RECORDS SUMMARY | 2024-12-10 09:07 | XMS_ITS | Encounter Summary ---
Author Organization [facility] Address [address] [place] [address] Care Team Providers Care Railcar Switcher Name Role Phone Buffy Diane MD Primary Care Provider [phone] Kayla Kahn DO Unavailable [phone] Daisy Hurst ELEVATOR REPAIRER-REPTILE KEEPER Unavailable Encounter Details Date Type Department Care [...] often do you attend chur ch or scientologist services? Patient declined 09/24/2023 Do you belong to any clubs o r organizations such as congregational groups, unions, fraternal or athletic groups, or [...] Patient Health Questionnaire-2 Score 0 11/16/2023 [facility] of Occupat ional Health - Occupational [...] any time in the past 12 m [facility], were you homeless or living in a penitentiary (including now)? No 09/24/2023 Comments Unknown Sex [...] PM EDT Routine [facility] [address] [facility] [place] [phone] Trista Pan DO [address] [facility] [place] [address] documented as of this encounter Procedures Procedure Name Priority Date/Time Associated Diagnosis Comments US PELVIS 02/03/2024 11:31 AM EDT documented in this encounter Results * US PELVIS (02/03/2024 11:31 AM EDT) Anatomical Region Laterality Modality Other 02/03/2024 11:3 1 AM EDT Narrative 02/03/2024 11:33 AM EDT The [address] [address] Ultrasound Report Signed Patient: FAHEEM BELCHER MR#: [id number] : 1995 Acct:[id number] Age/Sex: 28 / F ADM Date: 02/03/24 Loc: [facility] Attending Dr: Trista Pan D.O. Ordering Physician: Trista Pan D.O. Date of Service: 02/03/24 Procedure(s): US pelvis Accession Number(s): [id number] cc: BUFFY DIANE ; Trista Pan D.O. The [address] [address] Patient Name: FAHEEM BELCHER MRN: [facility]:[id number] date: 1995 Sex: F Assigned Patient Location: [facility] Current Patient Location: LAB Accession/Order Number: [id number] Exam Date: 02/03/2024 10:36 Report Date: 02/03/2024 [...] Signed By: 02/03/24 1133 DD/ 1131 TD/TT: White Mixing Operator: Procedure Note Radiology, Radiologist, MD - 02/03/2024 [place] [address] Ultrasound Report Signed Patient: FAHEEM BELCHER RMR#: [id number] : 1995Acct:[id number] Age/Sex: 28 / FADM Date: 02/03/24 Loc: [facility] Attending Dr: Trista Pan D.O. Ordering Physician: Trista Pan D.O. Date of Service: 02/03/24 Procedure(s): US pelvis Accession Number(s): [id number] cc: BUFFY DIANE ; Trista Pan D.O. [address] [address] Patient Name: FAHEEM BELCHER MRN: [id number] date: 1995 Sex: F Assigned Patient Location: [facility] Current Patient Location: LAB Accession/Order Number: [id number] Exam Date: 02/03/2024 10:36 Report Date: 02/03/2024 [...] M.D. Signed By:02/03/24 1133 DD/ 1131 TD/TT: White Mixing Operator: us Generic External Data Provider [facility] Final Result documented in this encounter Visit Diagnoses Not on filedocumented in this encounter Care Teams Railcar Switcher Relationship Specialty Start Date End Date Buffy Diane MD [address] [place] [address] PCP - General Family Medicine 09/19/22 Daisy Hurst, ELEVATOR REPAIRER-REPTILE KEEPER [address] [address] PCP - [place] [employer] 09/12/23 Kayla Kahn DO [address] [place] [address] Referring Physician 09/19/22 documented as of this encounter
--- OUTSIDE RECORDS SUMMARY | 2024-12-10 09:07 | XMS_ITS | Encounter Summary ---
Author Organization [facility] Address [address] [place] [address] Care Team Providers Care Singing Teacher Name Role Phone Sri Ramírez MD Primary Care Provider [phone] Kayla Kahn DO Unavailable [phone] Maria Elena Stephenson KILN REPAIRER Unavailable [phone] Daisy Hurst WAREHOUSE INVENTORY CLERK-CHIEF METER READER Unavailable Encounter Details Date Type Department Care Team (Late st Contact Info) Description 11/17/2022 Abstract [facility] [address] [place] [address] Maye Salvador, KILN REPAIRER Social History Tobacco Use Types Packs/Day Years [...] EDT Routine [facility] [address] [facility] [place] [address] Jose Pan DO [address] [facility] [address] [place] [place], [place] [address] documented as of this encounter Visit Diagnoses Not on filedocumented in this encounter Care Teams Singing Teacher Relationship Specialty Start Date End Date Sri Ramírez MD [address] [place] [address] PCP - General Family Medicine 09/19/22 Maria Elena Stephenson, VIC [address] [place] [address] PCP - [facility] 10/11/22 Daisy Hurst APRN-CHIEF METER READER [address] [address] PCP - [facility] 09/12/23 Kayla Kahn DO [address] [place] [address] Referring Physician 09/19/22 documented as of this encounter
--- OUTSIDE RECORDS SUMMARY | 2024-12-10 09:07 | XMS_ITS | Encounter Summary ---
Author Organization [facility] Address [address] [facility] [place] [address] Care Team Providers Care Officer Lieutenant Name Role Phone Sri Ramírez MD Primary Care Provider [phone] Kayla Kahn DO Unavailable [phone] Encounter Details Date Type Department Care Team (Late st Contact Info) Description 08/14/2024 Abstract [facility] [address] [facility] [place] [address] Sri Ramírez MD [address] [facility] [place] [address] Social History Tobacco Use Types [...] week 09/24/2023 How often do you attend [facility] or synagogue services? Patient declined 09/24/2023 Do you belong to any clubs o r organizations such as buddhist groups, unions, fraternal or athletic groups, or [...] Recorded Patient Health Questionnaire-2 Score 0 07/18/2024 [facility] Occupat ional [facility] - Occupational Stress Questionnaire Answer Date [...] any time in the past 12 m [facility], were you homeless or living in a senior living (including now)? No 09/24/2023 Comments No Sex [...] PM EDT Routine [facility] [address] [facility] [place] [address] Jose Pan DO [address] [facility] [address] [place], [place] [address] documented as of this encounter Visit Diagnoses Not on filedocumented in this encounter Care Teams Officer Lieutenant Relationship Specialty Start Date End Date Sri Ramírez MD [address] [place] [address] PCP - General Family Medicine 09/19/22 Kayla Kahn DO [address] [facility] [place] [address] Referring Physician 09/19/22 documented as of this encounter
--- OUTSIDE RECORDS SUMMARY | 2024-12-10 09:07 | XMS_ITS | Patient Health Record ---
Author Organization [facility] es Address [address] [place] [address] Care Team Providers Care Yeast Pusher Name Role Phone Dr. Elpidio Michelle Primary Care Provider [phone] Reason For Referral No Information Plan Of Treatment No Information Insurance Providers Payer Name Payer Address Payer Phone Subscriber Number Group Number Insured Name Patient Relationship to Insured Coverage Start Date Coverage End Date zDENTAL BUCKEYE-te rmed 22 [address] [address] [place] [address] [id number] FAHEEM BASURTO Self - patient is the insured [facility] [employer] MEDICAID [employer] after BUCKEYE-te rmed 22 [address] [place] [address] [id number] FAHEEM BASURTO Self - patient is the insured 1
--- OUTSIDE RECORDS SUMMARY | 2024-12-10 09:07 | XMS_ITS | Encounter Summary ---
Author Organization [facility] Address [address] [place] [address] Care Team Providers Care Consultant Intern Name Role Phone Buffy Diane MD Primary Care Provider [phone] Kayla Kahn DO Unavailable [phone] Encounter Details Date Type Department Care Team (Late st Contact Info) Description 12/05/2024 Clinisync Result Encounter [facility] External Department Unsolicited [...] often do you attend chur ch or taoist services? Patient declined 09/24/2023 Do you belong to any clubs o r organizations such as jain groups, unions, fraternal or athletic groups, or [...] Recorded Patient Health Questionnaire-2 Score 0 07/18/2024 [facility] of Occupat ional Health - Occupational [...] time in the past 12 m [facility], were you homeless or living in a [place] (including now)? No 09/24/2023 Estimated Date of [...] PM EDT Routine [facility] [address] [facility] [place] [address] Jose Pan DO [address] [facility] [place] [address] documented as of this encounter Procedures Procedure Name Priority Date/Time Associated Diagnosis Comments US OB FOLLOW UP 12/05/2024 2:33 PM EDT documented in this encounter Results * US OB FOLLOW UP (12/05/2024 2:33 PM EDT) Anatomical Region Laterality Modality Radiographic Erin ging 12/05/2024 2:33 PM EDT Narrative 12/05/2024 2:36 PM EDT [address] [address] Ultrasound Report Signed Patient: FAHEEM BELCHER MR#: [id number] : 1995 Acct:[id number] Age/Sex: 29 / F ADM Date: 12/05/24 Loc: US Attending Dr: Jake Gunter Ordering Physician: Jake Gunter Date of Service: 12/05/24 Procedure(s): US OB follow up Accession Number(s): [id number] cc: BUFFY DIANE ; Jake Gunter [address] [address] Patient Name: FAHEEM BELCHER MRN: [id number] date: 1995 Sex: F Assigned Patient Location: US Current Patient Location: US Accession/Order Number: [id number] Exam Date: 12/05/2024 13:08 Report Date: 12/05/2024 14:33 At the request of: JAKE GUNTER Procedure: US OB follow up OB ultrasound. Reason for exam:Follow-up choroid plexus cysts. Comparison:Anatomy ultrasound 11/07/2024 Technique: Transabdominal imaging of the gravid uterus was obtained. Findings: The previously identified choroid plexus cysts are less conspicuous on today's study but likely still appear to be present as seen on the cine imaging. heart rate 159 bpm. US/US OB follow up Impression: The previously identified choroid plexuses are less conspicuous on today's study but appear to still be present best seen on the cine imaging. Impression dictated by: Elpidio Brush Jr., D.O. 12/05/2024 2:33 PM Dictation Location: [place] [address] Electronically authenticated by: [id number] Y Date: 12/05/2024 14:33 Dictated By: Elipdio Brush M.D. Signed By: 12/05/24 1436 DD/ 1433 TD/TT: Projector Operator: Procedure Note Radiology, Radiologist, MD - 12/05/2024 [place] [address] Ultrasound Report Signed Patient: FAHEEM BELCHER RMR#: [id number] : 1995Acct:[id number] Age/Sex: 29 / FADM Date: 12/05/24 Loc: US Attending Dr: Jake Gunter Ordering Physician: Jake Gunter Date of Service: 12/05/24 Procedure(s): US OB follow up Accession Number(s): [id number] cc: BUFFY DIANE ; Jake Gunter The [place] [id number] Patient Name: FAHEEM BELCHER MRN: [facility]:[id number] date: 1995 Sex: F Assigned Patient Location: US Current Patient Location: US Accession/Order Number: [id number] Exam Date: 12/05/2024 13:08 Report Date: 12/05/2024 14:33 At the request of: JAKE GUNTER Procedure: US OB follow up OB ultrasound. Reason for exam:Follow-up choroid plexus cysts. Comparison:Anatomy ultrasound 11/07/2024 Technique: Transabdominal imaging of the gravid uterus was obtained. Findings: The previously identified choroid plexus cysts are less conspicuous ontoday's study but likely still appear to be present as seen on the cine imaging. heart rate 159 bpm. US/US OB follow up Impression: The previously identified choroid plexuses are less conspicuous on today's study but appear to still be present best seen on the cine imaging. Impression dictated by: Elpidio Brush Jr., D.O. 12/05/2024 2:33 PM Dictation Location: [place] [address] Electronically authenticated by: [id number] Y Date: 4:33 Dictated By: Elpidio Brush M.D. Signed By:12/05/24 1436 DD/ 1433 TD/TT: Projector Operator: us Generic External Data Provider IMG XR PROCEDURES Final Result documented in this encounter Visit Diagnoses Not on filedocumented in this encounter Care Teams Consultant Intern Relationship Specialty Start Date End Date Buffy Diane MD [address] [place] [address] PCP - General Family Medicine 09/19/22 Kayla Kahn DO [address] [place] [address] Referring Physician 09/19/22 documented as of this encounter
--- OUTSIDE RECORDS SUMMARY | 2024-12-10 09:07 | XMS_ITS | Encounter Summary ---
Author Organization [facility] Address [address] [facility] [place] [address] Care Team Providers Care Laborer Cheesemaking Name Role Phone Sri Ramírez MD Primary Care Provider [phone] Kayla Kahn DO Unavailable [phone] Maria Elena Stephenson TRAVEL PHYSICAL THERAPIST Unavailable [phone] Daisy Hurst BUNDLE COLLECTOR-MANAGER STORAGE Unavailable Encounter Details Date Type Department Care Team (Late Contact Info) Description 12/20/2022 Abstract [facility] [address] [facility] [place] [address] Sri Ramírez MD [address] [place] [address] Social History Tobacco Use Types [...] Department Care Team (Late Contact Info) Description 12/28/2024 1:20 PM EDT Routine [facility] [address] [facility] [place] [address] Jose Pan DO [address] [place] [address] documented as of this encounter Visit Diagnoses Not on filedocumented in this encounter Care Teams Laborer Cheesemaking Relationship Specialty Start Date End Date Sri Ramírez MD [address] [facility] [place] [address] PCP - General Family Medicine 09/19/22 Maria Elena Stephenson, TRAVEL PHYSICAL THERAPIST [address] [place] [address] PCP - [facility] 10/11/22 Daisy Hurst APRN-MANAGER STORAGE [address] [place] [address] PCP - [facility] 09/12/23 Kayla Kahn DO [address] [place] [address] Referring Physician 09/19/22 documented as of this encounter
--- OUTSIDE RECORDS SUMMARY | 2024-12-10 09:07 | XMS_ITS | Encounter Summary ---
Author Organization [facility] Address [address] [facility] [place] [address] Care Team Providers Care Digital Coordinator Name Role Phone Sri Ramírez MD Primary Care Provider [phone] Kayla Kahn DO Unavailable [phone] Encounter Details Date Type Department Care Team (Late st Contact Info) Description 08/14/2024 Abstract [facility] [address] [facility] [place] [address] Sri Ramírez MD [address] [facility] [place] [address] Social History Tobacco Use Types [...] week 09/24/2023 How often do you attend [facility] or mormon services? Patient declined 09/24/2023 Do you belong to any clubs o r organizations such as catholic groups, unions, fraternal or athletic groups, or [...] Recorded Patient Health Questionnaire-2 Score 0 07/18/2024 [facility] of Occupat ional [facility] - Occupational Stress Questionnaire Answer [...] any time in the past 12 m [facility], were you homeless or living in a detention (including now)? No 09/24/2023 Comments No Sex [...] Routine [facility] [address] [place] [id number] Jose Pan DO [address] [place], [place] [id number] documented as of this encounter Visit Diagnoses Not on filedocumented in this encounter Care Teams Digital Coordinator Relationship Specialty Start Date End Date Sri Ramírez MD [address] [place] [address] PCP - General Family Medicine 09/19/22 Kayla Kahn DO [address] [facility] [place] [address] Referring Physician 09/19/22 documented as of this encounter
--- OUTSIDE RECORDS SUMMARY | 2024-12-10 09:07 | XMS_ITS | Encounter Summary ---
Author Organization [facility] Address [address] [facility] [place] [address] Care Team Providers Care Small Brake Form Operator Name Role Phone Sri Ramírez MD Primary Care Provider [phone] Kayla Kahn DO Unavailable [phone] Encounter Details Date Type Department Care Team (Late st Contact Info) Description 08/29/2024 Abstract [facility] [address] [facility] [place] [address] Jose Pan DO [address] [facility] [address] [place], [facility] Social History Tobacco Use Types Packs/Day [...] week 09/24/2023 How often do you attend [facility] or denominational services? Patient declined 09/24/2023 Do you belong to any clubs o r organizations such as christianity groups, unions, fraternal or athletic groups, or [...] Recorded Patient Health Questionnaire-2 Score 0 07/18/2024 [facility] - Occupational Stress Questionnaire Answer Date [...] any time in the past 12 m [facility], were you homeless or living in a custodial (including now)? No 09/24/2023 Estimated Date of [...] PM EDT Routine [facility] [address] [facility] [id number] Jose Pan DO [address] [facility] [place] [address] documented as of this encounter Visit Diagnoses Not on filedocumented in this encounter Care Teams Small Brake Form Operator Relationship Specialty Start Date End Date Sri Ramírez MD [address] [place] [address] PCP - General Family Medicine 09/19/22 Kayla Kahn DO [address] [place] [address] Referring Physician 09/19/22 documented as of this encounter
--- OUTSIDE RECORDS SUMMARY | 2024-12-10 09:07 | XMS_ITS | Clinical Summary ---
Author Organization [facility] Address [address] [place] [address] Care Team Providers Care Director Channel Name Role Phone Sri Ramírez MD Primary Care Provider [phone] Kayla Kahn DO Unavailable [phone] Allergies Active Allergy Reactions Criticality Noted Date [...] HOURS NEEDED FOR NAUSEA & FOR VOMITING 08/14/19 25 Active azelaic acid (Finacea) 15 % gelIndications:Acn e, unspecified acne type Apply 1 application topically in the morning and 1 application before bedtime. 60 g 11 12/06/19 25 026 Active Active Problems Problem Noted Date Diagnosed [...] 09/06/2022 Slow transit constipation 09/06/2022 Anxiety during ([facility]) 03/26/2020 Depression affecting 03/26/2020 History of chlamydia 03/26/2020 Calculus of kidney 07/25/2013 Estimated Date of Delivery Comme nts Yes 03/26/2025 Based on last me nstrual period of 06/19/2024 Encounters Date Type Department Care Team Description 12/05/2024 1:50 PM EDT Routine [facility] [address] [place] [phone] Trista Pan DO Acne, unspecified acne type (Primary Dx); Second trimester ([facility]); 24 weeks gestation of ([facility]); Diabetes mellitus screening; Screening, , for anatomic survey ([facility]) 12/05/2024 Clinisync Result Encounter [facility] External Department Unsolicited Provider, Generic External Data 12/05/2024 Orders Only [facility] [place] [place] [phone] Estela Phipps LPN Encounter for follow-up ultrasound of anatomy ([facility]) 11/07/2024 2:00 PM EDT Routine [facility] [address] [place] [address] Trista Pan DO Screening, , for anatomic survey ([facility]) (Primary Dx); Second trimester ([facility]); 20 weeks gestation of ([facility]) 11/07/2024 Clinisync Result Encounter [facility] External Department Unsolicited Trista Pan DO 11/07/2024 Clinisync Result Encounter [facility] External Department Unsolicited Provider, Generic External Data 11/02/2024 Clinisync Result Encounter [facility] External Department Unsolicited Trista Pan DO 10/10/2024 2:20 PM [place] [address] Trista Pan DO Second trimester ([facility]); 16 weeks gestation of ([facility]); Screening, , for anatomic survey ([facility]) 10/10/2024 Bamboo [place] [address] Trista Pan DO 09/28/2024 2:50 PM [place] [address] Daja Ryan PA Second trimester ([facility]); 14 weeks gestation of ([facility]); Screen for STD (sexually transmitted disease) 09/28/2024 External Result Encounter [facility] External Department Unsolicited Daja Ryan PA 09/28/2024 Bamboo flowsheet [facility] [place] [address] Daja Ryan PA 09/13/2024 1:40 PM ED[place] [phone] Trista Pan DO First trimester ([facility]); 12 weeks gestation of ([facility]); Urinary tract infection in mother during , antepartum ([facility]) 09/13/2024 [place] [address] Trista Pan DO from Last 3 Months Immunizations Immunization Administration [...] Daughter Alive Father Alive Maternal Grandmother Mother kaila Alive Paternal Grandmother juan pablo Alive Social [...] often do you attend chur ch or gnosticist services? Patient declined 09/24/2023 Do you belong to any clubs o r organizations such as orthodox groups, unions, fraternal or athletic groups, or [...] Recorded Patient Health Questionnaire-2 Score 0 07/18/2024 [facility] - Occupational [...] any time in the past 12 m [facility], were you homeless or living in a nursing home (including now)? No 09/24/2023 Estimated Date of [...] Pressure 110/72 12/05/2024 2:09 PM EDT Pulse 92 07/18/2024 8:15 AM EDT Temperature 35 C (95 F) 06/10/2024 8:03 AM EST Respiratory Rate 18 07/18/2024 8:15 AM EDT Oxygen Saturation 99% 07/18/2024 8:15 AM EDT Inhaled Oxygen Concentration - - Weight 73 kg (161 lb) 12/05/2024 2:09 PM EDT Height 170.2 cm (5' 7 ) 07/18/2024 8:15 AM EDT Body Mass Index 25.22 07/18/2024 8:15 AM EDT Plan of Treatment Upcoming Encounters Date Type Department Care Team (Late st Contact Info) Description 12/28/2024 1:20 PM EDT Routine [facility] [address] [place] [address] Trista Pan DO [address] [place] [address] Health Maintenance Due Date Last Done Comments Influenza Vaccine (#1) 2024 Procedures Procedure Name Priority Date/Time Associated Diagnosis Comments US OB FOLLOW UP 12/05/2024 2:33 PM EDT POCT URINALYSIS DIPSTICK Routine 12/05/2024 2:15 PM EDT Second trimester ([facility]) POCT URINALYSIS DIPSTICK Routine 11/07/2024 2:17 PM EDT Second trimester ([facility]) US OB CERVICAL LENGTH 11/07/2024 12:24 PM EDT US OB ANATOMY 11/07/2024 12:24 PM EDT AFP, SERUM, OPEN SPINA BIFIDA Routine 11/02/2024 2:38 PM EDT POCT URINALYSIS DIPSTICK Routine 10/10/2024 2:51 PM EDT Second trimester ([facility]) RECURRENT VAGINITIS (HTRX) Routine 09/28/2024 3:56 PM EDT POCT URINALYSIS DIPSTICK Routine 09/28/2024 3:30 PM EDT Second trimester ([facility]) POCT URINALYSIS DIPSTICK Routine 09/13/2024 2:09 PM EDT First trimester ([facility]) 12 weeks gestation of ([facility]) from Last 3 Months Results * US OB FOLLOW UP (12/05/2024 2:33 PM EDT) Anatomical Region Laterality Modality Radiographic Erin ging 12/05/2024 2:33 PM EDT Narrative 12/05/2024 2:36 PM EDT [address] [address] Ultrasound Report Signed Patient: FAHEEM BELCHER MR#: [id number] : 1995 Acct:[id number] Age/Sex: 29 / F ADM Date: 12/05/24 Loc: US Attending Dr: Padmini Gunter Ordering Physician: Padmini Gunter Date of Service: 12/05/24 Procedure(s): US OB follow up Accession Number(s): [id number] cc: SRI RAMÍREZ Kristina The [address] [address] Patient Name: FAHEEM BELCHER MRN: [id number] date: 1995 Sex: F Assigned Patient Location: US Current Patient Location: US Accession/Order Number: [id number] Exam Date: 12/05/2024 13:08 Report Date: 12/05/2024 14:33 At the request of: PADMINI GUNTER Procedure: US OB follow up OB [...] imaging. Impression dictated by: Elpidio Brush Jr., DYoanaOYoana 12/05/2024 2:33 PM Dictation Location: [place] [address] Electronically authenticated by: [id number] Y Date: 12/05/2024 14:33 Dictated By: Elpidio Brush M.D. Signed By: 12/05/24 1436 DD/ 1433 TD/TT: Reproduction Technician: Procedure Note Radiology, Radiologist, MD - 12/05/2024 [place] [address] Ultrasound Report Signed Patient: FAHEEM BELCHER RMR#: [id number] : 1995Acct:[id number] Age/Sex: 29 / FADM Date: 12/05/24 Loc: US Attending Dr: Padmini Gunter Ordering Physician: Padmini Gunter Date of Service: 12/05/24 Procedure(s): US OB follow up Accession Number(s): [id number] cc: SRI ARMÍREZ Kristina The [place] [id number] Patient Name: FAHEEM BELCHER MRN: [id number] date: 1995 Sex: F Assigned Patient Location: US Current Patient Location: US Accession/Order Number: [id number] Exam Date: 12/05/2024 13:08 Report Date: 12/05/2024 14:33 At the request of: PADMINI EBERLY Procedure: US OB follow up OB ultrasound. [...] Jr., D.O. 12/05/2024 2:33 PM Dictation Location: [place] [address] Electronically authenticated by: [id number] Y Date: 4:33 Dictated By: Elpidio Brush M.D. Signed By:12/05/24 1436 DD/ 1433 TD/TT: Reproduction Technician: Generic External Data Provider IMG XR PROCEDURES Final Result * POCT urinalysis dipstick manually resulted (12/05/2024 2:15 PM EDT) Only the most recent of5 resultswithin the time period is included. Color, UA Yellow Clarity, UA Clear Glucose, UA Negative Negative - 1999(110) ++++ mg/dL Bilirubin, UA Negative Negative - 4(70) +++ mg/dL Ketones, UA Negative Negative - 160(16) ++++ mg/dL Spec Grav, UA 1.010 1 - 1.03 Blood, UA Negative Negative - 50 Allen/mcL pH, UA 6.5 5 - 9 Protein, UA Negative Negative - 1999(20) ++++ mg/dL Urobilinogen, UA 0.2 0.2 - 12 mg/dL Leukocytes, UA Negative Negative - 500+++ Andrei/mcL Nitrite, UA Negative Negative - Positive Urine 12/05/2024 2:15 PM EDT us Trista Pan DO POINT OF CARE TEST ENTER/EDIT OR DERABLES Final Result * US OB CERVICAL LENGTH (11/07/2024 12:24 PM EDT) Anatomical Region Laterality Modality Other 11/07/2024 12:2 4 PM EDT Narrative 11/07/2024 12:26 [place] [address] Ultrasound Report Signed Patient: FAHEEM BELCHER MR#: [id number] : 1995 Acct:[id number] Age/Sex: 29 / F ADM Date: 11/07/24 Loc: US Attending Dr: Trista Pan D.O. Ordering Physician: Trista Pan D.O. Date of Service: 11/07/24 Procedure(s): US OB cervical length Accession Number(s): [id number] cc: SRI RAMÍREZ ; Trista Pan D.O. [place] [id number] Patient Name: FAHEEM BELCHER MRN: [id number] date: 1995 Sex: F Assigned Patient Location: US Current Patient Location: US Accession/Order Number: [id number] Exam Date: 11/07/2024 12:17 Report Date: 11/07/2024 12:24 At the request of: TRISTA PAN DO Procedure: US OB cervical length CLINICAL DATA: Anatomy screening ULTRASOUND OB ANATOMY COMPARISON: 08/12/2024 There is a single live intrauterine gestation in transverse presentation with head to the maternal right. The amniotic fluid volume is subjectively normal. There is an anterior placenta which is unremarkable in appearance. There is cardiac and somatic activity with heart rate of 152 bpm. The neural axis and all 4 extremities were surveyed by the respiratory tech. 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 No other abnormalities were reported. The stomach, bladder, three-vessel cord with insertion, kidneys, diaphragm, female genitalia, four-chamber heart with right and left outflow tracts and facial features were seen. The following measurements were obtained: Biparietal diameter 5.0 cm 21 weeks 1 day 84% Head circumference 18.4 cm 20 weeks 5 days 69% Abdominal circumference 14.9 cm 20 weeks 1 day 46% Femur length 3.3 cm 20 weeks 1 day 41% The composite ultrasound age based on these measurements is 20 weeks 4 days +/- 1 week 3 days. This is within standard deviation of dates based on last menstrual period on the comparison. US/US OB cervical length IMPRESSION: SINGLE LIVE INTRAUTERINE GESTATION WITH ULTRASOUND AGE OF 20 WEEKS 4 DAYS. UNREMARKABLE ANATOMY SURVEY OTHER THAN CHOROID PLEXUS CYSTS. OB CERVICAL LENGTH COMPARISON: 08/12/2024 The cervix was evaluated with the transvaginal probe. The cervix is closed and the length is estimated at 4.4 cm. The anterior placenta is approximately 3.1 cm from the internal cervical os. IMPRESSION: UNREMARKABLE, CLOSED CERVIX. Impression dictated by: Ana Michael M.D. 11/07/2024 12:24 PM Dictation Location: [place] [address] Electronically authenticated by: [id number] Y Date: 11/07/2024 12:24 Dictated By: Ana Michael M.D. Signed By: 11/07/24 1226 DD/ 1224 TD/TT: Reproduction Technician: Procedure Note Radiology, Radiologist, - 11/07/2024 [place] [address] Ultrasound Report Signed Patient: FAHEEM BELCHER RMR#: [id number] : 1995Acct:[id number] Age/Sex: 29 / FADM Date: 11/07/24 Loc: US Attending Dr: Trista Pan D.O. Ordering Physician: Trista Pan D.O. Date of Service: 11/07/24 Procedure(s): US OB cervical length Accession Number(s): [id number] cc: SRI RAMÍREZ ; Trista Pan D.O. The [place] [address] Patient Name: FAHEEM BELCHER MRN: [id number] date: 1995 Sex: F Assigned Patient Location: US Current Patient Location: US Accession/Order Number: [id number] Exam Date: 11/07/2024 12:17 Report Date: 11/07/2024 12:24 At the request of: TRISTA PAN DO Procedure: US OB cervical length CLINICAL DATA: Anatomy screening ULTRASOUND OB ANATOMY COMPARISON: 08/12/2024 There is a single live intrauterine gestation in transverse presentationwith head to the maternal right. The amniotic fluid volume is subjectivelynormal. There is an anterior placenta which is unremarkable in appearance. Thereis cardiac and somatic activity with heart rate of 152 bpm. The neural axis and all 4 extremities were surveyed by the respiratory tech. 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 No other abnormalities werereported. The stomach, bladder, three-vessel cord with insertion, kidneys, diaphragm, female genitalia, four-chamber heart with right and leftoutflow tracts and facial features were seen. The following measurements were obtained: Biparietal diameter 5.0 cm 21 weeks 1 day 84% Head circumference 18.4 cm 20 weeks 5 days 69% Abdominal circumference 14.9 cm 20 weeks 1 day 46% Femur length 3.3 cm 20 weeks 1 day 41% The composite ultrasound age based on these measurements is 20 weeks 4days +/- 1 week 3 days. This is within standard deviation of dates based onlast menstrual period on the comparison. US/US OB cervical length IMPRESSION: SINGLE LIVE INTRAUTERINE GESTATION WITH ULTRASOUND AGE OF 20 WEEKS 4 DAYS. UNREMARKABLE ANATOMY SURVEY OTHER THAN CHOROID PLEXUS CYSTS. OB CERVICAL LENGTH COMPARISON: 08/12/2024 The cervix was evaluated with the transvaginal probe. The cervix isclosed and the length is estimated at 4.4 cm. The anterior placenta isapproximately 3.1 cm from the internal cervical os. IMPRESSION: UNREMARKABLE, CLOSED CERVIX. Impression dictated by: Ana Michael M.D. 11/07/2024 12:24 PM Dictation Location: [place] [address] Electronically authenticated by: [id number] Y Date: 2:24 Dictated By: Ana Michael M.D. Signed By:11/07/24 1226 DD/ 1224 TD/TT: Reproduction Technician: us Trista Pan DO [facility] Final Result * US OB ANATOMY (11/07/2024 12:24 PM EDT) Anatomical Region Laterality Modality Other 11/07/2024 12:2 4 PM EDT Narrative 11/07/2024 12:26 PM EDT [address] [address] Ultrasound Report Signed Patient: FAHEEM BELCHER MR#: [id number] : 1995 Acct:[id number] Age/Sex: 29 / F ADM Date: 11/07/24 Loc: US Attending Dr: Trista Pan D.O. Ordering Physician: Trista Pan D.O. Date of Service: 11/07/24 Procedure(s): US OB anatomy Accession Number(s): [id number] cc: SRI RAMÍREZ ; Trista Pan D.O. [address] [address] Patient Name: FAHEEM BELCHER MRN: [id number] date: 1995 Sex: F Assigned Patient Location: US Current Patient Location: US Accession/Order Number: [id number] Exam Date: 11/07/2024 12:17 Report Date: 11/07/2024 12:24 At the request of: TRISTA PAN DO Procedure: US OB cervical length CLINICAL DATA: Anatomy screening ULTRASOUND OB ANATOMY COMPARISON: 08/12/2024 There is a single live intrauterine gestation in transverse presentation with head to the maternal right. The amniotic fluid volume is subjectively normal. There is an anterior placenta which is unremarkable in appearance. There is cardiac and somatic activity with heart rate of 152 bpm. The neural axis and all 4 extremities were surveyed by the respiratory tech. 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 No other abnormalities were reported. The stomach, bladder, three-vessel cord with insertion, kidneys, diaphragm, female genitalia, four-chamber heart with right and left outflow tracts and facial features were seen. The following measurements were obtained: Biparietal diameter 5.0 cm 21 weeks 1 day 84% Head circumference 18.4 cm 20 weeks 5 days 69% Abdominal circumference 14.9 cm 20 weeks 1 day 46% Femur length 3.3 cm 20 weeks 1 day 41% The composite ultrasound age based on these measurements is 20 weeks 4 days +/- 1 week 3 days. This is within standard deviation of dates based on last menstrual period on the comparison. US/US OB anatomy IMPRESSION: SINGLE LIVE INTRAUTERINE GESTATION WITH ULTRASOUND AGE OF 20 WEEKS 4 DAYS. UNREMARKABLE ANATOMY SURVEY OTHER THAN CHOROID PLEXUS CYSTS. OB CERVICAL LENGTH COMPARISON: 08/12/2024 The cervix was evaluated with the transvaginal probe. The cervix is closed and the length is estimated at 4.4 cm. The anterior placenta is approximately 3.1 cm from the internal cervical os. IMPRESSION: UNREMARKABLE, CLOSED CERVIX. Impression dictated by: Ana Michael M.D. 11/07/2024 12:24 PM Dictation Location: [place] [address] Electronically authenticated by: [id number] Y Date: 11/07/2024 12:24 Dictated By: Ana Michael M.D. Signed By: 11/07/24 1226 DD/ 1224 TD/TT: Reproduction Technician: Procedure Note Radiology, Radiologist, MD - 11/07/2024 [place] [address] Ultrasound Report Signed Patient: FAHEEM BELCHER RMR#: [id number] : 1995Acct:[id number] Age/Sex: 29 / FADM Date: 11/07/24 Loc: US Attending Dr: Trista Pan D.O. Ordering Physician: Trista Pan D.O. Date of Service: 11/07/24 Procedure(s): US OB anatomy Accession Number(s): [id number] cc: SRI RAMÍREZ ; Trista Pan D.O. The [place] [address] Patient Name: FAHEEM BELCHER MRN: [id number] date: 1995 Sex: F Assigned Patient Location: US Current Patient Location: US Accession/Order Number: [id number] Exam Date: 11/07/2024 12:17 Report Date: 11/07/2024 12:24 At the request of: TRISTA PAN DO Procedure: US OB cervical length CLINICAL DATA: Anatomy screening ULTRASOUND OB ANATOMY COMPARISON: 08/12/2024 There is a single live intrauterine gestation in transverse presentationwith head to the maternal right. The amniotic fluid volume is subjectivelynormal. There is an anterior placenta which is unremarkable in appearance. Thereis cardiac and somatic activity with heart rate of 152 bpm. The neural axis and all 4 extremities were surveyed by the respiratory tech. 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 No other abnormalities werereported. The stomach, bladder, three-vessel cord with insertion, kidneys, diaphragm, female genitalia, four-chamber heart with right and leftoutflow tracts and facial features were seen. The following measurements were obtained: Biparietal diameter 5.0 cm 21 weeks 1 day 84% Head circumference 18.4 cm 20 weeks 5 days 69% Abdominal circumference 14.9 cm 20 weeks 1 day 46% Femur length 3.3 cm 20 weeks 1 day 41% The composite ultrasound age based on these measurements is 20 weeks 4days +/- 1 week 3 days. This is within standard deviation of dates based onlast menstrual period on the comparison. US/US OB anatomy IMPRESSION: SINGLE LIVE INTRAUTERINE GESTATION WITH ULTRASOUND AGE OF 20 WEEKS 4 DAYS. UNREMARKABLE ANATOMY SURVEY OTHER THAN CHOROID PLEXUS CYSTS. OB CERVICAL LENGTH COMPARISON: 08/12/2024 The cervix was evaluated with the transvaginal probe. The cervix isclosed and the length is estimated at 4.4 cm. The anterior placenta isapproximately 3.1 cm from the internal cervical os. IMPRESSION: UNREMARKABLE, CLOSED CERVIX. Impression dictated by: Ana Michael M.D. 11/07/2024 12:24 PM Dictation Location: [place] [address] Electronically authenticated by: [id number] Y Date: 2:24 Dictated By: Ana Michael M.D. Signed By:11/07/24 1226 DD/ 1224 TD/TT: Reproduction Technician: us Generic External Data Provider [facility] Final Result * AFP, SERUM, OPEN SPINA BIFIDA (11/02/2024 2:38 PM EDT) RESULTS Report . [facility] TEST RESULTS: *Screen Negative* . [facility] GEST. AGE ON COLLECTION DATE 19.4 . weeks [facility] GESTAT. AGE BASED ON LMP . [facility] Comment: Recalculations are not recommended when gestational dating by LMP and ultrasound are within 10 days. [age] [facility] RACE . [facility] WEIGHT 153 . lbs [facility] INSULIN DEP DIABETES No . [facility] MULTIPLE GESTATION No . [facility] AFP VALUE 52.0 . ng/mL [facility] AFP MOM 1.01 . [facility] [place] [address] . [facility] INTERPRETATION Comment . [facility] Comment: Interpretation: Screen Negative This result [...] Customer Services to discuss available options. The [place] [employer] recommends amniocentesis be offered to women age 35 and older. COMMENT: Comment . [facility] Comment: Alejandra Santiago, Ph.D., [facility] Director References: Available Upon Request. Multiples Of Median Cutoffs For AFP Elevations Mascorro 2.5 Black 2.8 IDD 2.0 Twins 4.5 Abbreviation Definitions IDD - Insulin Dep Diabetes OSBR - Open Spina Bifida Risk For further inquiries contact [employer] at [phone]. This test was developed and its performance characteristics determined by [employer]. It has not been cleared or approved by the Food and Drug Administration. Performed at: [facility] [address] [place], [place] [id number] Bail Agent: Halina Hill [facility], Phone: [phone] 11/02/2024 2:38 PM EDT 11/02/2024 2:40 PM EDT Narrative [facility] - 11/04/2024 1:07 AM EDT N N LMP [id number] 1 16 N 1 Y 153 N N N N N White/ us Generic External Data Provider LAB BLOOD ORDERAB LES Final Result [facility] * RECURRENT VAGINITIS (HTRX) (09/28/2024 3:56 PM EDT) [facility] ATOPOBIUM VAGINAE 0 19.961 - 24.689 ppm 09/30/2024 6:40 AM EDT [facility] ATOPOBIUM VAGINAE Not Detected 19.961 - 24.689 ppm 09/30/2024 6:40 AM EDT [facility] [place] BVAB 2,3 (BACTERIAL VAGINOSIS ASSOCIATED BACTERIA 2, 3); MOBILUNCUS SPP 0 19.961 - 24.689 ppm 09/30/2024 6:41 AM EDT [facility] BVAB 2,3 (BACTERIAL VAGINOSIS ASSOCIATED BACTERIA 2, 3); MOBILUNCUS SPP Not Detected 19.961 - 24.689 ppm 09/30/2024 6:41 AM EDT [facility] REAL ALBICANS, PARAPSILOSIS, TROPICALIS 0 19.961 - 30.770 ppm 09/30/2024 6:41 AM EDT [facility] REAL ALBICANS, PARAPSILOSIS, TROPICALIS Not Detected 19.961 - 30.770 ppm 09/30/2024 6:41 AM EDT [facility] REAL GLABRATA 0 23.000 - 32.138 ppm 09/30/2024 6:40 AM EDT [facility] REAL GLABRATA Not Detected 23.000 - 32.138 ppm 09/30/2024 6:40 AM EDT [facility] REAL KRUSEI 0 23.000 - 32.271 ppm 09/30/2024 6:40 AM EDT [facility] REAL KRUSEI Not Detected 23.000 - 32.271 ppm 09/30/2024 6:40 AM EDT [facility] CHLAMYDIA TRACHOMATIS 0 23.000 - 31.467 ppm 09/30/2024 6:41 AM EDT [facility] CHLAMYDIA TRACHOMATIS Not Detected 23.000 - 31.467 ppm 09/30/2024 6:41 AM EDT [facility] [place] GARDNERELLA VAGINALIS 0 19.961 - 24.689 ppm 09/30/2024 6:40 AM EDT [facility] [place] GARDNERELLA VAGINALIS Not Detected 19.961 - 24.689 ppm 09/30/2024 6:40 AM EDT [facility] MEGASPHAERA (TYPES 1, 2) 0 19.961 - 24.689 ppm 09/30/2024 6:41 AM EDT [facility] MEGASPHAERA (TYPES 1, 2) Not Detected 19.961 - 24.689 ppm 09/30/2024 6:41 AM EDT [facility] NEISSERIA GONORRHOEAE 0 23.000 - 32.117 ppm 09/30/2024 6:41 AM EDT [facility] NEISSERIA GONORRHOEAE Not Detected 23.000 - 32.117 ppm 09/30/2024 6:41 AM EDT [facility] TRICHOMONAS VAGINALIS 0 23.000 - 32.119 ppm 09/30/2024 6:40 AM EDT [facility] [place] TRICHOMONAS VAGINALIS Not Detected 23.000 - 32.119 ppm 09/30/2024 6:40 AM EDT [facility] MYCOPLASMA GENITALIUM 0 19.961 - 24.689 ppm 09/30/2024 6:41 AM EDT [facility] MYCOPLASMA GENITALIUM Not Detected 19.961 - 24.689 ppm 09/30/2024 6:41 AM EDT [facility] Tissue 09/28/2024 3:56 PM EDT 09/30/2024 1:41 AM EDT us Daja CUELLAR LAB BLOOD ORDERABLES Final Resul t [facility] [address] [facility] [place] [address] from Last 3 Months Insurance BCBS Care Teams Director Channel Relationship Specialty Start Date End Date Sri Ramírez MD [address] [place] [address] PCP - General Family Medicine 09/19/22 Kayla Kahn DO [address] [place] [address] Referring Physician 09/19/22
--- OUTSIDE RECORDS SUMMARY | 2024-12-10 09:07 | XMS_ITS | Encounter Summary ---
Author Organization [facility] Address [address] [facility] [place] [address] Care Team Providers Care Insurance Customer Service Specialist Name Role Phone Sri Ramírez MD Primary Care Provider [phone] Kayla Kahn DO Unavailable [phone] Encounter Details Date Type Department Care Team (Late st Contact Info) Description 12/05/2024 Orders Only [facility] [address] [place] [address] [place] [address] Estela Phipps LPN Encounter for follow-up ultrasound of anatomy ([facility]) Social History Tobacco Use Types Packs/Day Years [...] How often do you attend chur or nondenominational services? Patient declined 09/24/2023 Do you belong to any clubs o r organizations such as judaism groups, unions, fraternal or athletic groups, or [...] Recorded Patient Health Questionnaire-2 Score 0 07/18/2024 [facility] - Occupational Stress Questionnaire Answer [...] [facility] were you homeless or living in a skilled nursing (including now)? No 09/24/2023 Estimated Date of Delivery Comme nts Yes 03/26/2025 Based on last me nstrual period of 06/19/2024 Sex and Gender Information Value Date Recorded Sex Assigned at Not on file Legal Sex Female 6:40 PM EDT Gender Identity Not on file Sexual Orientation Not on file documented as of this encounter Progress Notes * Estela Phipps LPN - 12/05/2024 1:17 PM EDT biomedical repair technician for [facility] called and voiced order was needed to follow up anatomy. Sent to [facility] Radiology and [facility] Scheduling--ss documented in this encounter Plan of Treatment Upcoming Encounters Date Type Department Care Team (Late st Contact Info) Description 12/28/2024 1:20 PM EDT Routine [facility] [address] [place] [address] Jose Pan DO [address] [place] [address] Scheduled Orders Name Type Priority Associated Diagnoses Orde r Schedule US OB limited 1+ fetuses Imaging Routine Encounter for follow-up ultrasound of anatomy ([facility]) Expected: 12/05/2024, Expires: 03/07/2025 documented as of this encounter Visit Diagnoses Diagnosis Encounter for follow-up ultrasound of anatomy ([facility]) documented in this encounter Care Teams Insurance Customer Service Specialist Relationship Specialty Start Date End Date Sri Ramírez MD [address] [place] [address] PCP - General Family Medicine 09/19/22 Kayla Kahn DO [address] [place] [address] Referring Physician 09/19/22 documented as of this encounter
--- OUTSIDE RECORDS SUMMARY | 2024-12-10 09:07 | XMS_ITS | Encounter Summary ---
Author Organization [facility] Address [address] [facility] [place] [address] Care Team Providers Care Die Sinker Apprentice Name Role Phone Sri Ramírez MD Primary Care Provider [phone] Kayla Kahn DO Unavailable [phone] Encounter Details Date Type Department Care Team (Late st Contact Info) Description 08/15/2024 Abstract [facility] [address] [facility] [place] [address] Jose Pan DO [address] [facility] [address] [place], [facility] Social History Tobacco Use Types Packs/Day [...] often do you attend [facility] or scientologist services? Patient declined 09/24/2023 Do you belong to any clubs o r organizations such as nondenominational groups, unions, fraternal or athletic groups, or [...] Health Questionnaire-2 Score 0 07/18/2024 [facility] - Occupational Stress Questionnaire Answer Date [...] were you homeless or living in a chcf (including now)? No 09/24/2023 Comments No Sex [...] PM EDT Routine [facility] [address] [facility] [place] [id number] Jose Pan DO [address] [facility] [address] [place], [place] [id number] documented as of this encounter Visit Diagnoses Not on filedocumented in this encounter Care Teams Die Sinker Apprentice Relationship Specialty Start Date End Date Sri Ramírez MD [address] [place] [address] PCP - General Family Medicine 09/19/22 Kayla Kahn DO [address] [place] [address] Referring Physician 09/19/22 documented as of this encounter
--- OUTSIDE RECORDS SUMMARY | 2024-12-10 09:07 | XMS_ITS | Encounter Summary ---
Author Organization [facility] Address [address] [facility] [place] [address] Care Team Providers Care Fishing Guide Name Role Phone Sri Ramírez MD Primary Care Provider [phone] Kayla Kahn DO Unavailable [phone] Maria Elena Stephenson COW BUYER Unavailable [phone] Daisy Hurst INSTRUCTIONAL SUPPORT TECHNICIAN-BILLING CLERK Unavailable Encounter Details Date Type Department Care Team (Late Contact Info) Description 09/06/2022 Orders Only [facility] [address] [facility] [address] [place] [address] Saira Murray LPN Social History [...] 12/28/2024 1:20 PM EDT Routine [facility] [address] [facility] [place] [address] Jose Pan DO [address] [place] [address] documented as of this encounter Visit Diagnoses Not on filedocumented in this encounter Care Teams Fishing Guide Relationship Specialty Start Date End Date Sri Ramírez MD [address] [facility] [place] [address] PCP - General Family Medicine 09/19/22 Maria Elena Stephenson NP [address] [facility] [place] [address] PCP - [facility] 10/11/22 Daisy Hurst, INSTRUCTIONAL SUPPORT TECHNICIAN-BILLING CLERK [address] [facility] [address] [place] [address] [facility] 09/12/23 Kayla Kahn DO [address] [place] [address] Referring Physician 09/19/22 documented as of this encounter
--- OUTSIDE RECORDS SUMMARY | 2024-12-10 09:07 | XMS_ITS | CCD ---
Author Organization [facility] Care Team Providers Care Private Branch Exchange Operator Name Role Phone Sri Ramírez MD Primary Care Provider [phone] JASON FABIAN Referring Unavailable BENEDICTO, SRI Mera Primary Care Unavailable PARSELLJASON Referring Unavailable BENEDICTO, SRI Mera Primary Care Unavailable JASON FABIAN Referring Unavailable BENEDICTO, SRI Mera Primary Care Unavailable JASON FABIAN Referring Unavailable BENEDICTO, SRI Mera Primary Care Unavailable BENEDICTO, DR BAER Primary Care Unavailable BK DENT Admitting Unavailable BK DENT Attending Unavailable ALISA MOULTON Consulting Unavailable MAXIM, DR WESTON Admitting Unavailable MAXIM, DR WESTON Attending Unavailable BENEDICTO, DR BAER Primary Care Unavailable MAXIM, DR WESTON Consulting Unavailable BENEDICTO SRI Mera Primary Care Unavailable DILCIA LAZO Attending Unavailable Sri Ramírez MD Primary Care Provider Femi ROQUE, Kayla R Unavailable Sharifa-Nossek DOOR REPAIRER BUS-DIRECTOR MEDICAL, Daisy M Unavailable SRI RAMÍREZ Primary Care Physician Femi ROQUE, Kayla R Unavailable Bonita Yu Attending Unavailable Bonita Yu Attending Unavailable Mitra Ellis Attending Unavailable Mitra Ellis Admitting Unavailable Femi ROQUE Kayla R Unavailable [phone] Bnoita Yu Attending Unavailable JONAH GOMEZ Attending Unavailable JONAH GOMEZ Attending Unavailable JONAH GOMEZ Attending Unavailable DAJA EPPERSON Attending Unavailable REGGIE SUH Attending Unavailable BENEDICTO SRI Samaria Attending Unavailable BENEDICTO SRI Mera Referring Unavailable MAXIM, JOSE Attending Unavailable DAJA EPPERSON Attending Unavailable MAXIM, JOSE Attending Unavailable MAXIM, JOSE Attending Unavailable DAJA EPPERSON Attending Unavailable MAXIM, JOSE Attending Unavailable MAXIM, JOSE Attending Unavailable MAXIM, JOSE Attending Unavailable MAXIM, JOSE Attending Unavailable MAXIM, JOSE Attending Unavailable Allergies Allergy Classification Reported Allergen(s) Allergy Type Date of Onset Reaction(s) Facility (20 sources) Bacitracin / Polymyxin B; Translations: [bacitracin-taylor ymyxin B topical] Drug Allergy 3 Unknown (qualifier value) [facility] (20 sources) busPIRone; Translations: [buspirone] Drug Allergy 3 Anxiety, Anxiety (finding) [facility] (20 sources) Escitalopram; Translations: [escitalopram] Drug Allergy 3 Other, Drowsy (finding) [facility] (2 sources) busPIRone; Translations: [BuSpar] Drug Allergy [facility] Repository (2 sources) Escitalopram; Translations: [Lexapro] Drug Allergy [facility] Rep[facility] (2 sources) Bacitracin-Poly myxin; Translations: [Bacitracin-Taylor ymyxin] Propensity to adverse reactions (disorder) [facility] Repository Medications Current Medications Medication Drug Class(es) Dates Sig (Normalized) Sig (Original) azelaic acid 0.15 mg/mg topical gel (2 sources) Start: 12-05-2024 End: 12-05-2025 azelaic acid (Finacea) 15 % gel Indications: Acne, unspecified acne type Apply 1 application topically in the morning and 1 application before bedtime. 60 g 11 12/05/2024 12/05/2025 Active cephalexin 500 mg oral capsule (3 sources) [...] 02/15/2024 02/22/2024 Active Multiple Vitamin (multivitamin) tablet (20 sources) take 1 tablet by mouth once daily Multiple Vitamin (multivitamin) tablet Take 1 tablet by mouth Daily Active nitrofurantoin, macrocrystals 25 mg / nitrofurantoin, monohydrate 75 mg oral capsule (2 sources) Nitrofuran Antibacterial Start: 09-13-2024 End: 09-20-2024 take 1 capsule by mouth in the morning nitrofurantoin, macrocrystal-monohy drate, (Macrobid) 100 MG capsule Indications: Urinary tract infection in mother during , antepartum Take 1 capsule (100 mg) by mouth in the morning and 1 capsule (100 mg) before bedtime. Do all this for 7 days. 14 capsule 09/13/2024 09/20/2024 Active ondansetron 4 mg disintegrating oral tablet (20 sources) Serotonin-3 Receptor Antagonist Start: 08-13-2024 ondansetron ODT (Zofran-ODT) 4 MG disintegrating tablet DISSOLVE 1 TABLET on tongue EVERY 8 HOURS NEEDED FOR NAUSEA & FOR VOMITING 08/13/2024 Active polyethylene glycol 3350 12904 mg powder for oral solution (4 sources) [...] 06/12/2021 Active ubidecarenone 30 mg oral capsule (20 sources) take 1 capsule by mouth once [...] [Anxiety disorder, unspecified] Onset: 09-06-2022 09-06-2022 Chronic Immunizations and screening for infectious disease (3 sources) Encounter for screening for human papillomavirus (HPV); Translations: [Patient encounter status] Onset: 05-22-2021 09-28-2024 Episodic Menstrual disorders (20 sources) Amenorrhea; Translations: [...] for removal of sutures] 06-10-2024 Episodic Other complications of (2 sources) Urinary tract infection in ; Translations: [Unspecified infection of urinary tract in , unspecified trimester] 09-13-2024 Episodic Other diseases of kidney and ureters [...] 09-06-2022 Chronic Other and delivery including normal (12 sources) ; Translations: [Encounter for supervision of normal , unspecified, unspecified trimester] 08-18-2024 Episodic Other screening for suspected conditions (not mental disorders or infectious disease) (12 sources) Encounter for screening for malignant neoplasm of cervix; Translations: [Patient encounter status] Onset: 05-21-2021 Episodic Other skin disorders (2 sources) Acne; Translations: [Acne, unspecified] 12-05-2024 Episodic Residual codes; unclassified (2 sources) Gestation period, 12 weeks; Translations: [12 weeks gestation of ] 09-13-2024 Episodic Residual codes; unclassified (2 sources) Gestation period, 14 weeks; Translations: [14 weeks gestation of ] 09-28-2024 Episodic Residual codes; unclassified (2 sources) Gestation period, 16 weeks; Translations: [16 weeks gestation of ] 10-10-2024 Episodic Residual codes; unclassified (2 sources) Gestation period, 20 weeks; Translations: [20 weeks gestation of ] 11-07-2024 Episodic Residual codes; unclassified (2 sources) Gestation period, 24 weeks; Translations: [24 weeks gestation of ] 12-05-2024 Episodic Skin and subcutaneous tissue infections (2 [...] 02-15-2024 02-15-2024 Episodic Calculus of urinary tract (20 sources) Kidney stone; Translations: [Calculus of kidney] Onset: 07-25-2013 03-27-2014 Episodic Complication of device; implant or graft (20 sources) Disorder of intrauterine contraceptive device; Translations: [Unspecified complication of genitourinary prosthetic device, implant and graft, initial encounter] Onset: 09-06-2022 09-06-2022 Episodic Genitourinary symptoms and ill-defined conditions (20 sources) [...] 11-17-2022 Episodic Other complications of (20 sources) Other mental disorders complicating , unspecified [...] and parasitic diseases] Onset: 03-26-2020 10-21-2023 Episodic Urinary tract infections (20 sources) Cystitis, unspecified with hematuria; Translations: [Urinary tract infectious disease] Onset: 09-22-2023 02-15-2024 Episodic Results Test Name Value Interpretation Reference Range Facility US for multiple gestation pr egnancy limitedon 12-05-[address] [address] Ultrasound Report Signed Patient: FAHEEM BELCHER MR#: [id number] : 1995 Acct:[id number] Age/Sex: 29 / F ADM Date: 12/05/24 Loc: US Attending Dr: Jake Gunter Ordering Physician: Jake Gunter Date of Service: 12/05/24 Procedure(s): US OB follow up Accession Number(s): [id number] cc: SRI RAMÍREZ ; Jake Gunter [address] [address] Patient Name: FAHEEM BELCHER MRN: [id number] date: 1995 Sex: F Assigned Patient Location: US Current Patient Location: US Accession/Order Number: [id number] Exam Date: 12/05/2024 13:08 Report Date: 12/05/2024 [...] Jr., D.O. 12/05/2024 2:33 PM Dictation Location: [place] [address] Electronically authenticated by: [id number] Y Date: 12/05/2024 14:33 Dictated By: Elpidio Brush M.D. Signed By: 12/05/24 1436 DD/ 143 TD/TT: Applications Sales Consultant: [facility] Radiology, Radiologist, - 12/05/2024 [place] [address] Ultrasound Report Signed Patient: FAHEEM BELCHER MR#: [id number] : 1995 Acct:[id number] Age/Sex: 29 / F ADM Date: 12/05/24 Loc: US Attending Dr: Jake Gunter Ordering Physician: Jake Gunter Date of Service: 12/05/24 Procedure(s): US OB follow up Accession Number(s): [id number] cc: SRI RAMÍREZ ; Jake Gunter The [address] [address] Patient Name: FAHEEM BELCHER MRN: [id number] date: 1995 Sex: F Assigned Patient Location: US Current Patient Location: US Accession/Order Number: [id number] Exam Date: 12/05/2024 13:08 Report Date: 12/05/2024 14:33 At the request of: JAKE EBERLY Procedure: US OB follow up OB [...] Jr., D.O. 12/05/2024 2:33 PM Dictation Location: [place] [address] Electronically authenticated by: [id number] Y Date: 12/05/2024 14:33 Dictated By: Elpidio Brush M.D. Signed By: 12/05/24 1436 DD/ 1433 TD/TT: Applications Sales Consultant: [facility] Radiology Study observation (narrative) [facility] US for multiple gestation pr egnancy limitedOrdered By: Radiologist Radiology on 12-05-2024 [facility] e Work Phone: Urinalysis macro (dipstick) panel (U)on 12-05-2024 Bilirubin, UA Negative Negative - 4(70) +++ mg/dL [facility] Blood, UA Negative Negative - 50 Allen/mcL [facility] Clarity, UA Clear [facility] Color, UA Yellow [facility] e Glucose, UA Negative Negative - 2000(110) ++++ mg/dL [facility] Interpretation and review of laboratory results Normal [facility] Ketones, UA Negative Negative - 160(16) ++++ mg/dL [facility] Leukocytes, UA Negative Negative - 500+++ Andrei/mcL [facility] Nitrite, UA Negative Negative - Positive [facility] pH, UA 6.5 5 - 9 [facility] [employer] e Protein, UA Negative Negative - 1999(20) ++++ mg/dL [facility] Spec Grav, UA 1.01 1 - 1.03 [facility] Urobilinogen, UA 0.2 0.2 - 12 mg/dL [facility] No Panel InformationOrdered By: Radiologist Radiology on 11-07-2024 [facility] [employer] e Work Phone: No Panel Informationon 11-07 Radiology Study observation (narrative) [facility] US OB ANATOMYon 11-07-2024 [place] [address] Ultrasound Report Signed Patient: FAHEEM BELCHER MR#: [id number] : 1995 Acct:[id number] Age/Sex: 29 / F ADM Date: 11/07/24 Loc: US Attending Dr: Jose Pan D.O. Ordering Physician: Jose Pan D.O. Date of Service: 11/07/24 Procedure(s): US OB anatomy Accession Number(s): [id number] cc: SRI RAMÍREZ ; Jose Pan D.O. [address] [address] Patient Name: FAHEEM BELCHER MRN: [id number] date: 1995 Sex: F Assigned Patient Location: Current Patient Location: US Accession/Order Number: [id number] Exam Date: 11/07/2024 12:17 Report Date: 11/07/2024 12:24 At the request of: JOSE PAN DO Procedure: US OB cervical length [...] all 4 extremities were surveyed by the tanker driver. 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 [...] Michael M.D. 11/07/2024 12:24 PM Dictation Location: [place] [address] Electronically authenticated by: [id number] Y Date: 11/07/2024 12:24 Dictated By: Ana Michael M.D. Signed By: 11/07/24 1226 DD/ 1224 TD/TT: Applications Sales Consultant: [facility] Radiology, Radiologist, MD - 11/07/2024 [place] [address] Ultrasound Report Signed Patient: FAHEEM BELCHER MR#: [id number] : 1995 Acct:[id number] Age/Sex: 29 / F ADM Date: 11/07/24 Loc: US Attending Dr: Jose Pan D.O. Ordering Physician: Jose Pan D.O. Date of Service: 11/07/24 Procedure(s): US OB anatomy Accession Number(s): [id number] cc: SRI RAMÍREZ ; Jose Pan D.O. The [address] [address] Patient Name: FAHEEM BELCHER MRN: [id number] date: 1995 Sex: F Assigned Patient Location: US Current Patient Location: US Accession/Order Number: [id number] Exam Date: 11/07/2024 12:17 Report Date: 11/07/2024 12:24 At the request of: JOSE PAN DO Procedure: US OB cervical length [...] all 4 extremities were surveyed by the tanker driver. 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 [...] Michael M.D. 11/07/2024 12:24 PM Dictation Location: [place] [address] Electronically authenticated by: [id number] Y Date: 11/07/2024 12:24 Dictated By: Ana Michael M.D. Signed By: 11/07/24 1226 DD/ 1224 TD/TT: Applications Sales Consultant: [facility] OB CERVICAL LENGTHon 10-[address] [address] Ultrasound Report Signed Patient: FAHEEM BELCHER MR#: [id number] : 1995 Acct:[id number] Age/Sex: 29 / F ADM Date: 11/07/24 Loc: US Attending Dr: Jose Pan D.O. Ordering Physician: Jose Pan D.O. Date of Service: 11/07/24 Procedure(s): US OB cervical length Accession Number(s): [id number] cc: SRI RAMÍREZ ; Jose Pan D.O. [address] [address] Patient Name: FAHEEM BELCHER MRN: [id number] date: 1995 Sex: F Assigned Patient Location: US Current Patient Location: US Accession/Order Number: [id number] Exam Date: 11/07/2024 12:17 Report Date: 11/07/2024 12:24 At the request of: JOSE PAN DO Procedure: US OB cervical length [...] all 4 extremities were surveyed by the tanker driver. 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 [...] Michael M.D. 11/07/2024 12:24 PM Dictation Location: [place] [address] Electronically authenticated by: [id number] Y Date: 11/07/2024 12:24 Dictated By: Ana Michael M.D. Signed By: 11/07/24 1226 DD/ 1224 TD/TT: Applications Sales Consultant: [facility] Radiology, Radiologist, MD - 11/07/2024 [place] [address] Ultrasound Report Signed Patient: FAHEEM BELCHER MR#: [id number] : 1995 Acct:[id number] Age/Sex: 29 / F ADM Date: 11/07/24 Loc: US Attending Dr: Jose Pan D.O. Ordering Physician: Jose Pan D.O. Date of Service: 11/07/24 Procedure(s): US OB cervical length Accession Number(s): [id number] cc: SRI RAMÍREZ ; Jose Pan D.O. The [place] [address] Patient Name: FAHEEM BELCHER MRN: [facility]:[id number] date: 1995 Sex: F Assigned Patient Location: US Current Patient Location: US Accession/Order Number: [id number] Exam Date: 11/07/2024 12:17 Report Date: 11/07/2024 12:24 At the request of: JOSE PAN DO Procedure: US OB cervical length [...] all 4 extremities were surveyed by the tanker driver. 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 [...] Michael M.D. 11/07/2024 12:24 PM Dictation Location: [place] [address] Electronically authenticated by: [id number] Y Date: 11/07/2024 12:24 Dictated By: Ana Michael M.D. Signed By: 11/07/24 1226 DD/ 1224 TD/TT: Applications Sales Consultant: [facility] Urinalysis macro (dipstick) panel (U)on 11-07-2024 Bilirubin, UA Negative Negative - 4(70) +++ mg/dL [facility] Blood, UA Negative Negative - 50 Allen/mcL [facility] Clarity, UA Clear [facility] re Color, UA Yellow [facility] Glucose, UA Negative Negative - 2000(110) ++++ mg/dL [facility] Interpretation and review of laboratory results Normal [facility] Ketones, UA Negative Negative - 160(16) ++++ mg/dL [facility] Leukocytes, UA Negative Negative - 500+++ Andrei/mcL [facility] Nitrite, UA Negative Negative - Positive [facility] pH, UA 6 5 - 9 [facility] e Protein, UA Negative Negative - 2000(20) ++++ mg/dL [facility] Spec Grav, UA 1.015 1 - 1.03 [facility] Urobilinogen, UA 0.2 0.2 - 12 mg/dL [facility] AFP, SERUM, OPEN SPINA BIFID Aon 11-04-2024 AFP MOM 1.01 . [facility] AFP VALUE 52.0 ng/mL . [facility] COMMENT: Comment . [facility] e Comment on above: Alejandra Santiago , Ph.D., [facility] Director References: Available Upon Request. Multiples Of Median Cutoffs For AFP Elevations Mascorro 2.5 Black 2.8 IDD 2.0 Twins 4.5 Abbreviation Definitions IDD - Insulin Dep Diabetes OSBR - Open Spina Bifida Risk For further inquiries contact [employer] at [phone]. This test was developed and its performance characteristics determined by [employer]. It has not been cleared or approved by the Food and Drug Administration. Performed at: [facility] [place], [place] [id number] Silverware Washer: Halina Hill [facility], Phone: [phone] GEST. AGE ON COLLECTION DATE 19.4 . weeks [facility] GESTAT. AGE BASED ON LMP . [facility] Comment on above: Recalculations are n ot recommended when gestational dating by LMP and ultrasound are within 10 days. INSULIN DEP DIABETES No . [facility] INTERPRETATION Comment . [facility] Healt hcare Comment on above: Interpretation: Scre en Negative This result is screen negative for [...] Customer Services to discuss available options. The [employer] recommends amniocentesis be offered to women age 35 and older. [age] [facility] MULTIPLE GESTATION No . [facility] OSBR RISK [address] [place] [address] . [facility] RACE . [facility] RESULTS Report . [facility] TEST RESULTS: Negative . [facility] WEIGHT 153 . lbs [facility] N N LMP [id number] 1 16 N 1 Y 153 N N N N N White/ [facility] e Urinalysis macro (dipstick) panel (U)on 10-10-2024 Bilirubin, UA Negative Negative - 4(70) +++ mg/dL [facility] Blood, UA Negative Negative - 50 Allen/mcL [facility] Clarity, UA Clear [facility] re Color, UA Yellow [facility] Glucose, UA Negative Negative - 1999(110) ++++ mg/dL [facility] Interpretation and review of laboratory results Normal [facility] Ketones, UA Negative Negative - 160(16) ++++ mg/dL [facility] Leukocytes, UA Negative Negative - 500+++ Andrei/mcL [facility] Nitrite, UA Negative Negative - Positive [facility] pH, UA 7 5 - 9 [facility] Protein, UA Negative Negative - 1999(20) ++++ mg/dL [facility] Spec Grav, UA 1.02 1 - 1.03 [facility] Urobilinogen, UA 0.2 0.2 - 12 mg/dL [facility] RECURRENT VAGINITIS (HTRX)on 09-30-2024 ATOPOBIUM VAGINAE 0 [facility] ATOPOBIUM VAGINAE Not detected [facility] BVAB 2,3 (BACTERIAL VAGINOSIS ASSOCIATED BACTERIA 2, 3); MOBILUNCUS SPP 0 [facility] BVAB 2,3 (BACTERIAL VAGINOSIS ASSOCIATED BACTERIA 2, 3); MOBILUNCUS SPP Not detected [facility] REAL ALBICANS, PARAPSILOSIS, TROPICALIS 0 [facility] REAL ALBICANS, PARAPSILOSIS, TROPICALIS Not detected [facility] REAL GLABRATA 0 [facility] REAL GLABRATA Not detected [facility] REAL KRUSEI 0 [facility] hcare REAL KRUSEI Not detected [facility] CHLAMYDIA TRACHOMATIS 0 [facility] CHLAMYDIA TRACHOMATIS Not detected [facility] GARDNERELLA VAGINALIS 0 [facility] GARDNERELLA VAGINALIS Not detected [facility] MEGASPHAERA (TYPES 1, 2) 0 [facility] MEGASPHAERA (TYPES 1, 2) Not detected [facility] MYCOPLASMA GENITALIUM 0 [facility] MYCOPLASMA GENITALIUM Not detected [facility] NEISSERIA GONORRHOEAE 0 [facility] NEISSERIA GONORRHOEAE Not detected [facility] TRICHOMONAS VAGINALIS 0 [facility] TRICHOMONAS VAGINALIS Not detected [facility] Urinalysis macro (dipstick) panel (U)on 09-28-2024 Bilirubin, UA Negative Negative - 4(70) +++ mg/dL [facility] Blood, UA Positive Negative - 50 Allen/mcL [facility] Healthcare Comment on above: trace Clarity, UA Clear [facility] re Color, UA Yellow [facility] Glucose, UA Negative Negative - 1999(110) ++++ mg/dL [facility] Interpretation and review of laboratory results Normal [facility] Ketones, UA Negative Negative - 160(16) ++++ mg/dL [facility] Leukocytes, UA Negative Negative - 500+++ Andrei/mcL [facility] Nitrite, UA Negative Negative - Positive [facility] pH, UA 6.5 5 - 9 [facility] Protein, UA Negative Negative - 1999(20) ++++ mg/dL [facility] Spec Grav, UA 1.025 1 - 1.03 [facility] Urobilinogen, UA 0.2 0.2 - 12 mg/dL [facility] Urinalysis macro (dipstick) panel (U)on 09-13-2024 Bilirubin, UA Negative Negative - 4(70) +++ mg/dL [facility] Blood, UA Positive Negative - 50 Allen/mcL [facility] Clarity, UA Clear [facility] Color, UA Yellow [facility] Glucose, UA Negative Negative - 1999(110) ++++ mg/dL [facility] Interpretation and review of laboratory results Abnormal [facility] Ketones, UA Positive Negative - 160(16) ++++ mg/dL [facility] Leukocytes, UA Negative Negative - 500+++ Andrei/mcL [facility] Nitrite, UA Negative Negative - Positive [facility] pH, UA 7 5 - 9 [facility] Protein, UA Negative Negative - 1999(20) ++++ mg/dL [facility] Spec Grav, UA 1.02 1 - 1.03 [facility] Urobilinogen, UA 1.0 0.2 - 12 mg/dL [facility] BOX TESTon 08-22-2024 [facility] [address] unity [facility] BOX2 08/22/24 [facility] [place] [facility] [employer] [facility] HCG ( test) Ql (U)o n 08-18-2024 Interpretation and review of laboratory results Abnormal [facility] Preg Test, Ur Positive Negative [facility] OB TRANSVAGINALon 025 US [...] II, MD, PHD at 21-Aug-2024 08:21:12 PM [facility] Normal Not Available Comment on above: Order Comment: US OB TRANSVAGINAL No LMP recorded. Urinalysis macro (dipstick) panel (U)on 08-18-2024 Bilirubin, UA Negative Negative - 4(70) +++ mg/dL [facility] Blood, UA Negative Negative - 50 Allen/mcL [facility] Clarity, UA Clear [facility] Color, UA Yellow [facility] Glucose, UA Negative Negative - 1999(110) ++++ mg/dL [facility] Interpretation and review of laboratory results Normal [facility] Ketones, UA Negative Negative - 160(16) ++++ mg/dL [facility] Leukocytes, UA Negative Negative - 500+++ Andrei/mcL [facility] Nitrite, UA Negative Negative - Positive [facility] pH, UA 7 5 - 9 [facility] e Protein, UA Negative Negative - 1999(20) ++++ mg/dL [facility] Spec Grav, UA 1.01 1 - 1.03 [facility] Urobilinogen, UA 0.2 0.2 - 12 mg/dL [facility] Ambulatory Visit Summaryon 0 08-01-2024 Ambulatory Visit Summary Ambulatory Visit Summary FAHEEM BELCHER :1995 Visit Date:08/01/2024 Ambulatory Visit Instructions Your Diagnosis UTI symptoms Your Care Team Attending Physician - JONAH GOMEZ PA-C Primary Care Physician - SRI RAMÍREZ MD This Is Your Medications List Non-Formulary Medication (demannose and cranberry) bifidobacterium-lact obacillus (Probiotic 10 Ultra Strength) multivitamin, (Vitafusion ) Procedures Performed Lithotripsy (2014). Discharge Vitals Temperature (Temporal Artery) 37 ???C Heart Rate (Peripheral) 89 Respiratory Rate 16 Blood Pressure 137/82 Height 174 cm Height 69 in Weight 64 kg Weight 141.096 lb BMI 21.14 Medications What How Much When Instructions Unchanged bifidobacterium-lact obacillus (Probiotic 10 Ultra Strength) 1 Capsules By [...] for choosing us for your care. Normal [facility] Urology Office/Clinic Noteon 08-01-2024 Urology Office/Clinic Note [...] Sx persisted so AO sent 7d Keflex. HOTEL RECEPTIONIST spoke with her about possible IC. We [...] E&M of Est. Patient Moderate 30-39 Min [id number] Urnls Dip Stick Auto w/o Microscopy POC [id number] Follow-up With When Contact Information Call for UTI symptoms. Call to schedule follow up after . Additional Instructions: Patient Education Kidney Stones, [id number] Problem List/Past Medical History Ongoing Adjustment disorder [...] Protein Urine Dipstick: Negative (08/01/24 13:23:00) Specific [place] Urine Dipstick: <=1.005 (08/01/24 13:23:00) Urine Appearance Urine Dipstick: Clear (08/01/24 13:23:00) Urine Color Urine Dipstick: Yellow (08/01/24 13:23:00) Urobilinogen Urine Dipstick: Normal 0.2-1 EU/dl (08/01/24 13:23:00) pH Urine Dipstick (more content not included)... Normal [facility] Comment on above: Result Comment: Elec tronically [...] Normal Not Available Reminderson 04-12-2024 Reminders Reminders - From: Anayeli Laureano To: EU - Administrative; Sent: 03/01/2024 11:42:31 EST Show up: 03/22/2024 11:42:00 EST Subject: Ambulatory Reminder Due Date/Time: 05/28/2024 11:42:00 EST Reminder/Recall Patient needs scheduled with SURYA for a 3 month F/U, due back in May 2024 MAY 16 W/ SURYA IN [facility] ALL CBC WITH AUTO DIFFon BASOPHILS ABSOLUTE AUTO 0 [facility] Basophils/100 WBC (Bld) 0.4 % 0.2 - 2.0 % [facility] Eosinophils/100 WBC (Bld) 2.3 % 0.9 - 7.0 % [facility] Erythrocyte distribution width (RBC) [Ratio] 11.9 % 11.0 - 15.0 % [facility] Hematocrit (Bld) [Volume fraction] 42 % 36.0 - 48.0 % [facility] (Bld) [Mass/Vol] 14.4 g/dL 12.0 - 16.0 g/dL [facility] IMMATURE GRANULOCYTES ABS AUTO 0.01 [facility] Immature granulocytes/100 WBC (Bld) 0.2 % 0.0 - 0.5 % [facility] Interpretation and review of laboratory results Abnormal [facility] LYMPHOCYTES ABSOLUTE AUTO 2 [facility] Lymphocytes/100 WBC (Bld) 42.5 % 20.5 - 60.0 % [facility] MCH (RBC) [Entitic mass] 30.6 pg 26.7 - 34.0 pg [facility] MCHC (RBC) [Mass/Vol] 34.3 g/dL 29.9 - 35.2 g/dL [facility] MCV (RBC) [Entitic vol] 89.2 fL 81.0 - 99.0 fL [facility] MONOCYTES ABSOLUTE AUTO 0.5 [facility] Monocytes/100 WBC (Bld) 11 % 1.7 - 12.0 % [facility] NEUTROPHILS ABSOLUTE AUTO 2.1 [facility] Neutrophils/100 WBC (Bld) 43.6 % 43.0 - 75.0 % [facility] Platelet mean volume (Bld) [Entitic vol] 9.4 fL Low 9.5 - 13.5 fL [facility] EO # 0.1 [facility] [...] 03/22/2024 18:32 EST FREE TEXT SOURCE: Mitra Mcfarlane, Mitra Barrera FINAL REPORTS Final Report [] Verified Date/Time: 03/24/2024 09:13 EST >100,000 cfu/ml Klebsiella pneumoniae SUSCEPTIBILITY RESULTS LEGEND: S=Susceptible, N/R=Not Reported, Blank=Data not available, or drug not advisable or tested, I=Intermediate, ESBL=Extended spectrum beta-lactamase, R=Resistant, TFG=Thymidine-depend ent strain, PAUL=Beta-lactamase positive, RIO=mcg/m;(mg/L), S*=Predicted susceptible interp, [...] This test was performed at: [facility], [address] [place] [address], [id number] , , [facility] Comment on above: Performed By: #### 2 [id number] #### [facility] [address] [place] [id number] Urinalysis macro (dipstick) panel (U)on 02-15-2024 Bilirubin, UA Negative Negative - 4(70) +++ mg/dL [facility] Blood, UA Negative Negative - 50 Allen/mcL [facility] Clarity, UA Clear [facility] re Color, UA Yellow [facility] Glucose, UA Negative Negative - 1999(110) ++++ mg/dL [facility] Interpretation and review of laboratory results Normal [facility] Ketones, UA Negative Negative - 160(16) ++++ mg/dL [facility] Leukocytes, UA Negative Negative - 500+++ Andrei/mcL [facility] Nitrite, UA Negative Negative - Positive [facility] pH, UA 7 5 - 9 [facility] Protein, UA Negative Negative - 1999(20) ++++ mg/dL [facility] Spec Grav, UA 1.01 1 - 1.03 [facility] Urobilinogen, UA 0.2 0.2 - 12 mg/dL [facility] IGP,APTIMA HPV,AGE GDLNon AGE GDLN ACOG TESTING Note . [facility] Comment on above: TESTS RESULT FLAG [facility] REF RANGE LAB Clinician Provided Cytology Information Source.............Cervix;Endocervix No. of containers..01 ThinPrep Vial Age Algo ACOG Dione... FLAG LEGEND: L-Low Normal,H-High Normal,LL-Alert Low,HH-Alert High <-Panic Low,>-Panic High,A-Abnormal,AA-Critical Abnormal Performed at: 01 =G [address] [address] Cristiane Eduardo MD, IGP, RFX APTIMA HPV ASCU Note . [facility] Comment on above: TESTS RESULT FLAG [facility] REF RANGE LAB DIAGNOSIS: 02 NEGATIVE FOR INTRAEPITHELIAL LESION OR MALIGNANCY. Specimen adequacy: 02 Satisfactory for evaluation. Endocervical and/or squamous metaplastic cells (endocervical component) are present. Performed by: Jemma Sin [employer] Ii Assembler (ASCP) . 02 Note: Note 03 The Pap [...] Low,>-Panic High,A-Abnormal,AA-Critical Abnormal Performed at: 02 [facility] [address] [place] [address] Mayur Coleman MD, 03 WB [facility] [address] [address] Cristiane Eduardo MD, Performed at: =G - [facility] [address] [id number] Silverware Washer: Cristiane Eduardo MD, Phone: [phone] Performed at: [facility] [address] [employer] [place], [place] [id number] Silverware Washer: Mayur Coleman MD, Phone: [phone] BRUSH-SPATULA CERVIX ENDOCERVIX [facility] Cytology Cervical or vaginal smear or scraping studyon 01-27-2024 [facility] No Panel Informationon 01-12 STAPHYLOCOCCUS EPIDERMIDIS, HAEMOLYTICUS, LUGDUNENSIS, SAPROPHYTICUS (URINA 0.000 [facility] STAPHYLOCOCCUS EPIDERMIDIS, HAEMOLYTICUS, LUGDUNENSIS, SAPROPHYTICUS (URINA Not detected [facility] URINARY TRACT INFECTION (HTR X)on 01-13-2024 ACINETOBACTER BAUMANII 0.000 [facility] ACINETOBACTER BAUMANII Not detected [facility] REAL ALBICANS, PARAPSILOSIS, TROPICALIS 0.000 [facility] REAL ALBICANS, PARAPSILOSIS, TROPICALIS Not detected [facility] REAL GLABRATA 0.000 [facility] REAL GLABRATA Not detected [facility] REAL KRUSEI 0.000 [facility] REAL KRUSEI Not detected [facility] CITROBACTER FREUNDII 0.000 [facility] CITROBACTER FREUNDII Not detected [facility] ENTEROBACTER AEROGENES, CLOACAE 0.000 [facility] ENTEROBACTER AEROGENES, CLOACAE Not detected [facility] ENTEROCOCCUS FAECALIS, FAECIUM 0.000 [facility] ENTEROCOCCUS FAECALIS, FAECIUM Not detected [facility] ESCHERICHIA COLI 0.000 [facility] ESCHERICHIA COLI Not detected [facility] KLEBSIELLA PNEUMONIAE, OXYTOCA 0.000 [facility] KLEBSIELLA PNEUMONIAE, OXYTOCA Not detected [facility] MORGANELLA MORGANII 0.000 [facility] MORGANELLA MORGANII Not detected [facility] PROTEUS MIRABILIS, VULGARIS 0.000 [facility] PROTEUS MIRABILIS, VULGARIS Not detected [facility] PSEUDOMONAS AERUGINOSA 0.000 [facility] PSEUDOMONAS AERUGINOSA Not detected [facility] SERRATIA MARCESCENS 0.000 [facility] SERRATIA MARCESCENS Not detected [facility] STAPHYLOCOCCUS AUREUS 0.000 [facility] STAPHYLOCOCCUS AUREUS Not detected [facility] STREPTOCOCCUS AGALACTIAE (GROUP B STREP) 0.000 [facility] STREPTOCOCCUS AGALACTIAE (GROUP B STREP) Not detected [facility] STREPTOCOCCUS PYOGENES (GROUP A STREP) 0.000 [facility] STREPTOCOCCUS PYOGENES (GROUP A STREP) Not detected [facility] HCG ( test) Ql (U)o n 01-11-2024 Interpretation and review of laboratory results Normal [facility] Preg Test, Ur Negative [facility] Urinalysis macro (dipstick) panel (U)on 01-11-2024 Bilirubin, UA Negative Negative - 4(70) +++ mg/dL [facility] Blood, UA Positive Negative - 50 Allen/mcL [facility] Clarity, UA Clear [facility] re Color, UA Yellow [facility] Glucose, UA Negative Negative - 1999(110) ++++ mg/dL [facility] Interpretation and review of laboratory results Abnormal [facility] Ketones, UA Positive Negative - 160(16) ++++ mg/dL [facility] Leukocytes, UA Negative Negative - 500+++ Andrei/mcL [facility] Nitrite, UA Negative Negative - Positive [facility] pH, UA 6.5 5 - 9 [facility] e Protein, UA Negative Negative - 1999(20) ++++ mg/dL [facility] Spec Grav, UA 1.015 1 - 1.03 [facility] Urobilinogen, UA 1.0 0.2 - 12 mg/dL [facility] Cult,Urineon 09-23-2023 Cult,Urine Specimen Description .URINE Unknown Culture NO SIGNIFICANT GROWTH Report Status FINAL 09/23/2023 Normal [facility] Comment on above: Performed By: #### U RC #### [address] [id number] Silverware Washer: Moisés Carl MD [address] [address] Silverware Washer: Wan Morales MD HCG, ,Urineon 09-21 Beta HCG ( test) Ql (U) Negative Normal NEG [facility] Comment on above: Result Comment: Spec [...] By: #### U AX, UHCG, UMICAO #### [address] [address] Silverware Washer: Wan Morales MD UA w/Reflex Cultureon 2023 Bilirubin, SemiQt,Ur Negative Abnormal NEG [facility] Comment on above: Performed By: #### U AX, UHCG, UMICAO #### [address] [address] Silverware Washer: Wan Morales MD Blood, Urine LARGE Abnormal NEG [facility] Comment on above: Performed By: #### U AX, UHCG, UMICAO #### [address] [address] Silverware Washer: Wan Morales MD Clarity (U) SLIGHTLY CLOUDY Abnormal CLEAR [facility] Comment on above: Performed By: #### U AX, UHCG, UMICAO #### [address] [address] Silverware Washer: Wan Morales MD Color (U) Red Abnormal YEL [facility] Comment on above: Performed By: #### U AX, UHCG, UMICAO #### [address] [id number] Silverware Washer: Wan Morales MD Comment INTERPRET WITH CAUTION DUE TO INTENSE COLOR OF URINE. Normal [facility] Comment on above: Performed By: #### U AX, UHCG, UMICAO #### [address] [address] Silverware Washer: Wan Morales MD Glucose Ql (U) Negative Normal NEG [facility] Comment on above: Performed By: #### U AX, UHCG, UMICAO #### [address] [id number] Silverware Washer: Wan Morales MD Ketones Ql (U) Negative Normal NEG [facility] Comment on above: Performed By: #### U AX, CG, UMICAO #### [place] [address] Silverware Washer: Wan Morales MD Leukocyte esterase Test strip Ql (U) MODERATE Abnormal NEG [facility] Comment on above: Performed By: #### U AX, CG, UMICAO #### [place] [address] Silverware Washer: Wan Morales MD Nitrite,Ur Positive Abnormal NEG [facility] Comment on above: Performed By: #### U AX, UHCG, UMICAO #### [place] [address] Silverware Washer: Wan Morales MD PH,Ur 7.0 Normal 5.0-8.0 [facility] Comment on above: Performed By: #### U AX, [facility], UMICAO #### [place] [address] Silverware Washer: Wan Morales MD Protein Ql (U) 3+ mg/dL Abnormal NEG [facility] Comment on above: Performed By: #### U AX, CG, UMICAO #### [place] [address] Silverware Washer: Wan Morales MD Spec. [place],Ur 1.010 Normal 1.005-1.030 [facility] Comment on above: Performed By: #### U AX, UHCG, UMICAO #### [place] [id number] Silverware Washer: Wan Morales MD Urobilinogen,Ur Normal Normal 0.0-1.0 [facility] Comment on above: Performed By: #### U AX, UHCG, UMICAO #### [place] [address] Silverware Washer: Wan Morales MD Urinalysis,Microon 4 Bacteria MODERATE Abnormal NONE [facility] Comment on above: Performed By: #### U AX, UHCG, UMICAO #### [place] [address] Silverware Washer: Wan Morales MD Epithelial cells LM Ql (Urine sed) 5 TO 10 Normal 0-5 [facility] Comment on above: Performed By: #### U AX, UHCG, UMICAO #### [place] [address] Silverware Washer: Wan Morales MD Other Observations Culture ordered based on defined criteria. Abnormal NREQ [facility] Comment on above: Performed By: #### U AX, UHCG, UMICAO #### [place] [address] Silverware Washer: Wan Morales MD Urine RBC's TOO NUMEROUS TO COUNT Normal 0-2 [facility] Comment on above: Performed By: #### U AX, UHCG, UMICAO #### [place] [address] Silverware Washer: Wan Morales MD Urine WBC's TOO NUMEROUS TO COUNT Normal 0-5 [facility] Comment on above: Performed By: #### U AX, UHCG, UMICAO #### [place] [address] Silverware Washer: Wan Morales MD US RENAL COMPLETEon 06-21-19 [...] Sri Galeas MD 06/20/[address] [facility] 1. Nonobstructing left renal stones measuring up to 5 mm. 2. No hydronephrosis. [facility] EXAMINATION: RETROPERITONEAL ULTRASOUND OF THE KIDNEYS [...] the bladder. No significant post void residual. [facility] Sri Galeas MD - 06/20/2021 EXAMINATION: [...] up to 5 mm. 2. No hydronephrosis. [employer] Phone: US RENAL COMPLETEOrdered By: Sri Galeas on 06-20-2021 [employer] Phone: US RENAL COMPLETEon 06-20-19 Radiology Study observation (narrative) [employer] Phone: XR ABDOMEN (KUB) (SINGLE AP VIEW)on [...] stones. Interpreted by: See Herrera Signed by: eSe Herrera 06/19/[address] [facility] No definite evidence of renal or ureteral stones. [facility] EXAMINATION: ONE SUPINE [...] urine collecting system. Osseous structures are normal. [facility] See Herrera - [...] definite evidence of renal or ureteral stones. [employer] Phone: Radiology Study observation (narrative) [facility] [employer] Phone: XR ABDOMEN (KUB) (SINGLE AP VIEW)Ordered By: See Herrera on 06-19-2021 [facility] [employer] Phone: Cult,Urineon 06-14-2021 Cult,Urine Specimen Description .VOIDED URINE Culture NO SIGNIFICANT GROWTH Report Status FINAL 06/14/[address] [facility] Comment on above: Performed By: #### U RC #### [facility] [address] [place], [place] [id number] Silverware Washer: Moisés Carl MD [facility] [address] [place] [address] [place] [address] Silverware Washer: Filemon Gutiérrez MD Urinalysis w/ Microon 2021 ----- Normal [facility] Comment on above: Performed By: #### U AMIC #### [facility] [address] [place] [address] Silverware Washer: Filemon Gutiérrez MD Epithelial cells LM Ql (Urine sed) 2 TO 5 Normal 0-25 [facility] Comment on above: Performed By: #### U AMIC #### [facility] [address] [place] [address] Silverware Washer: Filemon Gutiérrez MD Urine RBC's 0 TO 2 Normal 0-2 [facility] Comment on above: Performed By: #### U AMIC #### [facility] [address] [place] [address] Silverware Washer: Filemon Gutiérrez MD Urine WBC's 0 TO 2 Normal 0-5 [facility] Comment on above: Performed By: #### U AMIC #### [facility] [address] [place] [address] Silverware Washer: Filemon Gutiérrez MD Bilirubin, SemiQt,Ur Negative Normal NEG [facility] Comment on above: Performed By: #### U AMIC #### [facility] [address] [place], [place] [phone] Silverware Washer: Filemon Gutiérrez MD Blood, Urine Negative Normal NEG [facility] Comment on above: Performed By: #### U AMIC #### [facility] [address] [place] [address] Dr[place], [place] [phone] Silverware Washer: Filemon Gutiérrez MD Clarity (U) Clear Normal CLEAR [facility] Comment on above: Performed By: #### U AMIC #### [facility] [address] [place], [place] [phone] Silverware Washer: Filemon Gutiérrez MD Color (U) Yellow Normal YEL [facility] Comment on above: Performed By: #### U AMIC #### [facility] [address] [place] [address] Dr. [place], [place] [phone] Silverware Washer: Filemon Gutiérrez MD Glucose Ql (U) Negative Normal NEG [facility] Comment on above: Performed By: #### U AMIC #### [facility] [address] [place] [address] Dr. [place], [place] [phone] Silverware Washer: Filemon Gutiérrez MD Ketones Ql (U) Negative Normal NEG [facility] Comment on above: Performed By: #### U AMIC #### [facility] [address] [place] [address] Dr. [place], [place] [phone] Silverware Washer: Filemon Gutiérrez MD Leukocyte esterase Test strip Ql (U) Negative Normal NEG [facility] Comment on above: Performed By: #### U AMIC #### [facility] [address] [place] [address] Dr. [place], [place] [phone] Silverware Washer: Filemon Gutiérrez MD Nitrite,Ur Negative Normal NEG [facility] Comment on above: Performed By: #### U AMIC #### [facility] [address] [place] [address] Dr. [place], [place] [phone] Silverware Washer: Filemon Gutiérrez MD PH,Ur 7.0 Normal 5.0-9.0 [facility] Comment on above: Performed By: #### U AMIC #### [facility] [address] [place] [address] Silverware Washer: Filemon Gutiérrez MD Protein Ql (U) Negative Normal NEG [facility] Comment on above: Performed By: #### U AMIC #### [facility] [address] [place], [place] [phone] Silverware Washer: Filemon Gutiérrez MD Spec. [place],Ur 1.010 Normal 1.010-1.020 [facility] Comment on above: Performed By: #### U AMIC #### [facility] [address] [place] [address] [place] [address] Silverware Washer: Filemon Gutiérrez MD Urobilinogen,Ur Normal Normal NORM [facility] Comment on above: Performed By: #### U AMIC #### [facility] [address] [place] [address] [place] [address] Silverware Washer: Filemon Gutiérrez MD Urinalysis with Microscopico n 06-12-2021 - [facility] Bilirubin Urine Negative NEGATIVE [facility] Color, UA Yellow Yellow [facility] Epithelial Cells UA 2 TO 5 [facility] Glucose, Ur Negative NEGATIVE [facility] Ketones Ql (U) Negative NEGATIVE [facility] Leukocyte esterase Test strip Ql (U) Negative NEGATIVE [facility] Nitrite, Urine Negative NEGATIVE [facility] pH, UA 7.0 [facility] Protein, UA Negative NEGATIVE [facility] RBC, UA 0 TO 2 [facility] Specific [place], UA 1.010 [facility] Turbidity UA Clear Clear [facility] Urine Hgb Negative NEGATIVE [facility] Urobilinogen, Urine Normal Normal [facility] WBC, UA 0 TO 2 [facility] PAP ACOG PANEL 2: 21 to 29on 05-25-2021 . . Normal Comment on above: Performed By: #### 4 [id number] #### [facility] [address] [place] [address] Age Gdln ACOG Testing 21-29 Normal Comment on above: Performed By: #### 4 [id number] #### [facility] [address] [place] [address] DIAGNOSIS: Comment Normal Comment on above: Result Comment: NEGA TIVE FOR INTRAEPITHELIAL LESION OR MALIGNANCY. Performed By: #### 4 [id number] #### [facility] [address] [address] Methodology: Comment Normal Comment on above: Result Comment: This liquid based ThinPrep(R) pap test was screened with the use of an image guided system. Performed By: #### 4 [id number] #### [facility] [address] [place] [address] Note: Comment Normal Comment on above: Result Comment: The Pap smear is a screening test designed to aid in the detection of premalignant and malignant conditions of the uterine cervix. It is not a diagnostic procedure and should not be used as the sole means of detecting cervical cancer. Both false-positive and false-negative reports do occur. . Performed By: #### 4 [id number] #### [facility] [address] [place] [address] Performed by: Comment Normal [facility] Comment on above: Result Comment: Mariia Negron Electrical Accessories Ii Assembler (ASCP) Performed By: #### 4 [id number] #### [facility] [address] [place] [address] Reflex Criteria: Comment Normal [facility] Comment on above: Result Comment: The HPV DNA reflex criteria were not met with this specimen result therefore, no HPV testing was performed. . Performed By: #### 4 [id number] #### [facility] [address] [place] [address] Specimen adequacy: Comment Normal [facility] Comment on above: Result Comment: Sati sfactory for evaluation. Endocervical and/or squamous metaplastic cells (endocervical component) are present. Performed By: #### 4 [id number] #### [facility] [address] [place] [address] Vital Signs Date Time Vital Sign Value Performing Clinician Facility 12-05-2024 14:09-0400 Body mass index (BMI) [Ratio] 25.22 kg/m2 Jose Maxim DO Work Phone: [facility] 12-05-2024 14:09040 Body weight 73.03 kg Jose Maxim DO Work Phone: [facility] 12-05-2024 14:09-0400 Diastolic blood pressure 72 mm[Hg] Jose Maxim DO Work Phone: [facility] 12-05-2024 14:09-0400 Systolic blood pressure 110 mm[Hg] Jose Maxim DO Work Phone: [facility] 11-07-2024 14:11-0400 Body mass index (BMI) [Ratio] 24.59 kg/m2 Jose Maxim DO Work Phone: [facility] 11-07-2024 14:11-0400 Body weight 71.22 kg Jose Maxim DO Work Phone: [facility] 11-07-2024 14:11-0400 Diastolic blood pressure 70 mm[Hg] Jose Maxim DO Work Phone: [facility] 11-07-2024 14:11-0400 Systolic blood pressure 118 mm[Hg] Jose Maxim DO Work Phone: [facility] 10-10-2024 14:44-0400 Body mass index (BMI) [Ratio] 24 kg/m2 Jose Maxim DO Work Phone: [facility] 10-10-2024 14:44-0400 Body weight 69.51 kg Jose Maxim DO Work Phone: [facility] 10-10-2024 14:44-0400 Diastolic blood pressure 60 mm[Hg] Jose Maxim DO Work Phone: [facility] 10-10-2024 14:44-0400 Systolic blood pressure 108 mm[Hg] Jose Maxim DO Work Phone: [facility] 09-28-2024 15:30-0400 Body mass index (BMI) [Ratio] 23.34 kg/m2 Daja Epperson PA Work Phone: [facility] 09-28-2024 15:30-0400 Body weight 67.59 kg Daja Connor PA Work Phone: [facility] 09-28-2024 15:30-0400 Diastolic blood pressure 70 mm[Hg] Daja Connor PA Work Phone: [facility] 09-28-2024 15:30-0400 Systolic blood pressure 116 mm[Hg] Daja Umanaey PA Work Phone: [facility] 09-13-2024 14:04-0400 Body mass index (BMI) [Ratio] 22.99 kg/m2 Jose Maxim DO Work Phone: [facility] 09-13-2024 14:04-0400 Body weight 66.59 kg Jose Maxim DO Work Phone: [facility] 09-13-2024 14:04-0400 Diastolic blood pressure 70 mm[Hg] Jose Maxim DO Work Phone: [facility] 09-13-2024 14:04-0400 Systolic blood pressure 114 mm[Hg] Jose Maxim DO Work Phone: [facility] 08-18-2024 13:39-0400 Body mass index (BMI) [Ratio] 22.87 kg/m2 [facility] 08-18-2024 13:39-0400 Body weight 66.22 kg [facility] [facility] 08-18-2024 13:39-0400 Diastolic blood pressure 68 mm[Hg] Nom Nurse [facility] 08-18-2024 13:39-0400 Systolic blood pressure 118 mm[Hg] Noms Nurse [facility] 07-18-2024 08:15-0400 Body height 170.2 cm Sri Ramírez MD Work Phone: [facility] 07-18-2024 08:15-0400 Body mass index (BMI) [Ratio] 23.05 kg/m2 Sri Ramírez MD Work Phone: [facility] 07-18-2024 08:15-0400 Body weight 66.77 kg Sri Ramírze MD Work Phone: [facility] 07-18-2024 08:15-0400 Diastolic blood pressure 70 mm[Hg] Sri Ramírez MD Work Phone: [facility] 07-18-2024 08:15-0400 Heart rate 92 /min Sri Ramírez MD Work Phone: [facility] 07-18-2024 08:15-0400 Respiratory rate 18 /min Sri Ramírez MD Work Phone: [facility] 07-18-2024 08:15-0400 SaO2% (BldA) [Mass fraction] 99 % Sri Ramírez MD Work Phone: [facility] 07-18-2024 08:15-0400 Systolic blood pressure 122 mm[Hg] Sri Ramírez MD Work Phone: [facility] 06-10-2024 08:03-0500 Body mass index (BMI) [Ratio] 22.96 kg/m2 Reggie Majors FORGING PRESS OPERATOR Work Phone: [facility] 06-10-2024 08:03-0500 Body temperature 95 [degF] Reggie Majors FORGING PRESS OPERATOR Work Phone: [facility] 06-10-2024 08:03-0500 Body weight 66.5 kg Reggie Majors FORGING PRESS OPERATOR Work Phone: [facility] 06-10-2024 08:03-0500 Diastolic blood pressure 78 mm[Hg] Reggie Majors FORGING PRESS OPERATOR Work Phone: [facility] 06-10-2024 08:03-0500 Heart rate 96 /min Reggie Majors FORGING PRESS OPERATOR Work Phone: [facility] 06-10-2024 08:03-0500 SaO2% (BldA) [Mass fraction] 98 % Reggie Majors FORGING PRESS OPERATOR Work Phone: [facility] 06-10-2024 08:03-0500 Systolic blood pressure 122 mm[Hg] Reggie Suh FORGING PRESS OPERATOR Work Phone: [facility] 05-23-2024 09:03-0500 Body mass index (BMI) [Ratio] 22.57 kg/m2 Daja Connor PA Work Phone: [facility] 05-23-2024 09:03-0500 Body weight 65.37 kg Daja Connor PA Work Phone: [facility] 05-23-2024 09:03-0500 Diastolic blood pressure 74 mm[Hg] Daja Forsyth PA Work Phone: [facility] 05-23-2024 09:03-0500 Systolic blood pressure 118 mm[Hg] Daja Connor PA Work Phone: [facility] 04-20-2024 14:37-0500 Body mass index (BMI) [Ratio] 22.57 kg/m2 Jose Maxim DO Work Phone: [facility] 04-20-2024 14:37-0500 Body weight 65.37 kg Jose Maxim DO Work Phone: [facility] 04-20-2024 14:37-0500 Diastolic blood pressure 68 mm[Hg] Jose Maxim DO Work Phone: [facility] 04-20-2024 14:37-0500 Systolic blood pressure 106 mm[Hg] Jose Maxim DO Work Phone: [facility] 03-09-2024 11:20-0500 Body mass index (BMI) [Ratio] 22.55 kg/m2 Jose Maxim DO Work Phone: [facility] 03-09-2024 11:20-0500 Body weight 65.32 kg Jose Maxim DO Work Phone: [facility] 03-09-2024 11:20-0500 Diastolic blood pressure 70 mm[Hg] Jose Maxim DO Work Phone: [facility] 03-09-2024 11:20-0500 Systolic blood pressure 114 mm[Hg] Jose Maxim DO Work Phone: [facility] 03-01-2024 10:47-0500 Blood Pressure Location Bonita Orzech [facility] 03-01-2024 10:47-0500 Diastolic blood pressure 66 mm[Hg] Bonita Orzech [facility] 03-01-2024 10:47-0500 Heart rate 79 /min Bonita Orzech [facility] 03-01-2024 10:47-0500 Respiratory rate 19 /min Bonita Orzech [facility] 03-01-2024 10:47-0500 Systolic blood pressure 102 mm[Hg] Bonita Orzech [facility] 02-15-2024 11:11-0500 Body mass index (BMI) [Ratio] 22.4 kg/m2 Jose Maxim DO Work Phone: [facility] 02-15-2024 11:11-0500 Body weight 64.86 kg Jose Maxim DO Work Phone: [facility] 02-15-2024 11:11-0500 Diastolic blood pressure 70 mm[Hg] Jose Maxim DO Work Phone: [facility] 02-15-2024 11:11-0500 Systolic blood pressure 110 mm[Hg] Jose Maxim DO Work Phone: [facility] 01-27-2024 14:13-0400 Body mass index (BMI) [Ratio] 22.08 kg/m2 Daja CUELLAR Work Phone: [facility] 01-27-2024 14:13-0400 Body weight 63.96 kg Daja CUELLAR Work Phone: [facility] [employer] 01-27-2024 14:13-0400 Diastolic blood pressure 68 mm[Hg] Daja Umanajuve CUELLAR Work Phone: [facility] [employer] 01-27-2024 14:13-0400 Systolic blood pressure 110 mm[Hg] Daja Epperson ALISA Work Phone: [facility] [employer] 01-11-2024 11:52-0400 Body mass index (BMI) [Ratio] 22.42 kg/m2 Jose Maxim DO Work Phone: [facility] [employer] 01-11-2024 11:52-0400 Body weight 64.92 kg Jose Maxim DO Work Phone: [facility] [employer] 01-11-2024 11:52-0400 Diastolic blood pressure 72 mm[Hg] Jose Maxim DO Work Phone: [facility] [employer] 01-11-2024 11:52-0400 Systolic blood pressure 108 mm[Hg] Jose Maxim DO Work Phone: [facility] Healthcare Encounters Encounter Date Encounter Type Care Provider Facility Start: 12-05-2024 End: 12-05-2024 Clinisync Result Encounter Generic External Data Provider [facility] External Department Unsolicited Start: 12-05-2024 End: 12-05-2024 Clinisync Result Encounter Generic External Data Provider [facility] External Department Unsolicited Start: 12-05-2024 End: 12-05-2024 flow sheet Jose Maxim DO Work Phone: [facility] Comment on above: Acne, unspecified ac ne type (Primary Dx); Second trimester ([facility]); 24 weeks gestation of ([facility]); Diabetes mellitus screening; Screening, , for anatomic survey ([facility]) Start: 12-05-2024 End: 12-05-2024 ambulatory JOSE MAXIM Not Available Start: 11-07-2024 End: 11-07-2024 Clinisync Result Encounter Generic External Data Provider [facility] External Department Unsolicited Start: 11-07-2024 End: 11-07-2024 Clinisync Result Encounter Generic External Data Provider [facility] External Department Unsolicited Start: 11-07-2024 End: 11-07-2024 flow sheet Jose Maxim DO Work Phone: [facility] Comment on above: Screening, , for anatomic survey ([facility]) (Primary Dx); Second trimester ([facility]); 20 weeks gestation of ([facility]) Start: 11-07-2024 End: 11-07-2024 ambulatory JOSE MAXIM Not Available Start: 11-02-2024 End: 11-04-2024 Clinisync Result Encounter Jose Maxim DO Work Phone: [facility] External Department Unsolicited Start: 11-02-2024 End: 11-04-2024 Clinisync Result Encounter Jose Maxim DO Work Phone: [facility] External Department Unsolicited Start: 10-10-2024 End: 10-10-2024 flow sheet Jose Maxim DO Work Phone: [facility] Comment on above: Second trimester pre gnancy ([facility]); 16 weeks gestation of ([facility]); Screening, , for anatomic survey ([facility]) Start: 10-10-2024 End: 10-10-2024 ambulatory JOSE MAXIM Not Available Start: 10-10-2024 End: 10-10-2024 Bamboo flowsheet Jose Maxim DO Work Phone: [facility] Start: 10-10-2024 End: 10-10-2024 Bamboo flowsheet Jose Maxim DO Work Phone: [facility] Start: 09-28-2024 End: 09-28-2024 Office outpatient visit 15 minutes Daja CUELLAR Work Phone: [facility] Comment on above: Second trimester pre gnancy ([facility]); 14 weeks gestation of ([facility]); Screen for STD (sexually transmitted disease) Start: 09-28-2024 End: 09-28-2024 ambulatory DAJA EPPERSON Not Available Start: 09-28-2024 End: 09-28-2024 Bamboo flowsheet Daja CUELLAR Work Phone: [facility] Start: 09-28-2024 End: 09-30-2024 Bamboo flowsheet Daja CUELLAR Work Phone: [facility] Start: 09-28-2024 End: 09-30-2024 External Result Encounter Daja CUELLAR Work Phone: [facility] External Department Unsolicited Start: 09-13-2024 End: 09-13-2024 Bamboo flowsheet Jose Maxim DO Work Phone: [facility] Start: 09-13-2024 End: 09-13-2024 Bamboo flowsheet Jose Maxim DO Work Phone: [facility] Start: 09-13-2024 End: 09-13-2024 ambulatory JOSE MAXIM Not Available Start: 09-13-2024 End: 09-13-2024 flow sheet Jose Maxim DO Work Phone: [facility] Comment on above: First trimester preg francisca; 12 weeks gestation of ; Urinary tract infection in mother during , antepartum Start: 08-22-2024 End: 08-22-2024 Clinisync Result Encounter Jose Maxim DO Work Phone: [facility] External [facility] Unsolicited Start: 08-22-2024 End: 08-22-2024 Clinisync Result Encounter Jose Maxim DO Work Phone: [facility] External Department Unsolicited Start: 08-18-2024 End: 08-18-2024 ambulatory DAJA EPPERSON [...] 08-12-2024 End: 08-15-2024 External Result Encounter Daja CUELLAR Work Phone: [facility] Unsolicited Start: 08-02-2024 ambulatory Bonita X Orzech Facilit y:[facility] Start: 08-01-2024 End: 08-01-2024 ambulatory JONAH GOMEZ [...] Dx) Start: 07-18-2024 End: 07-18-2024 ambulatory SRI Mera BENEDICTO Not Available Start: 06-10-2024 End: 06-10-2024 Bamboo flowsheet Reggie Suh FORGING PRESS OPERATOR Work Phone: [facility] Start: 06-10-2024 End: 06-10-2024 Bamboo flowsheet Reggiemane Suh FORGING PRESS OPERATOR Work Phone: [facility] Start: 06-10-2024 End: 06-10-2024 Telephone encounter Sri Ramírez MD Work Phone: [facility] Start: 06-10-2024 End: 06-10-2024 Office outpatient visit 25 minutes Reggie Suh FORGING PRESS OPERATOR Work Phone: [facility] Comment on above: Encounter for remova l of sutures (Primary Dx); Cellulitis of finger of right hand Start: 06-10-2024 End: 06-10-2024 ambulatory REGGIE OCHOAS Not Available Start: 05-23-2024 End: 05-23-2024 Bamboo flowsheet Daja CUELLAR Work Phone: [facility] Start: 05-23-2024 End: 05-23-2024 Bamboo flowsheet Daja CUELLAR Work Phone: [facility] Start: 05-23-2024 [facility]ulatory [facility] Start: 05-23-2024 End: 05-23-2024 ambulatory DAJA EPPERSON Not Available Start: 05-23-2024 End: 05-23-2024 Office outpatient visit 15 minutes Daja CUELLAR Work Phone: [facility] Comment on above: Vaginal discharge; Vaginal burning Start: 05-16-2024 End: 05-16-2024 ambulatory JONAH GOMEZ Facility:[facility] Start: 05-16-2024 End: 05-16-2024 Patient encounter procedure JONAH GOMEZ [facility] Start: 04-20-2024 End: 04-20-2024 Bamboo flowsheet Daja CUELLAR Work Phone: [facility] Start: 04-20-2024 End: 04-20-2024 Bamboo flowsheet Daja CUELLAR Work Phone: [facility] Start: 04-20-2024 End: 04-20-2024 Postop follow up visit related to original px Jose Maxim DO Work Phone: [facility] Comment on above: Postoperative examin ation Start: 04-20-2024 End: 04-20-2024 ambulatory JOSE MAXIM Not Available Start: 04-01-2024 End: 04-01-2024 Clinisync Result Encounter Generic External Data Provider [facility] External Department Unsolicited Start: 04-01-2024 End: 04-01-2024 Clinisync Result Encounter Generic External Data Provider [facility] External Department Unsolicited Start: 03-21-2024 End: 03-21-2024 ambulatory Mitra Ellis [place] Start: 03-21-2024 End: 03-21-2024 Lab Drop off Mitra Ellis [facility] Start: 03-21-2024 End: 03-21-2024 ambulatory Bonita X Orzech [facility] Start: 03-21-2024 End: 03-21-2024 Patient encounter procedure Bonita X Orzech [facility] Start: 03-09-2024 End: 03-09-2024 Bamboo flowsheet Jose Maxim DO Work Phone: [facility] Start: 03-09-2024 End: 03-09-2024 Bamboo flowsheet Jose Maxim DO Work Phone: [facility] Start: 03-09-2024 End: 03-09-2024 Office outpatient visit 15 minutes Jsoe Maxim DO Work Phone: [facility] Comment on above: Pre-op evaluation; Pelvic pain in female; Bacterial vaginosis Start: 03-09-2024 End: 03-09-2024 Preprocedural examination done Jose Maxim DO Work Phone: [facility] Start: 03-09-2024 End: 03-09-2024 ambulatory JOSE MAXIM Not Available Start: 03-01-2024 End: 03-01-2024 ambulatory Bonita X Orzech [facility] Start: 03-01-2024 End: 03-01-2024 Patient encounter procedure Bonita X Orzech [facility] Start: 02-15-2024 End: 02-15-2024 Bamboo flowsheet Jose Maxim DO Work Phone: [facility] Start: 02-15-2024 End: 02-15-2024 Bamboo flowsheet Jose Maxim DO Work Phone: [facility] Start: 02-15-2024 End: 02-15-2024 Office outpatient visit 15 minutes Jose Maxim DO Work Phone: [facility] Comment on above: Bacterial vaginosis; Urinary tract infection without hematuria, site unspecified; Vaginal odor; Bacterial infection due to mycoplasma Start: 02-15-2024 End: 02-15-2024 ambulatory JOSE MAXIM Not Available Start: 01-27-2024 End: 01-27-2024 Bamboo flowsheet Daja CUELLAR Work Phone: [facility] Start: 01-27-2024 End: 02-02-2024 Bamboo flowsheet Daja CUELLAR Work Phone: [facility] Start: 01-27-2024 End: 02-02-2024 Clinisync Result Encounter Generic External Data Provider [facility] External Department Unsolicited Start: 01-27-2024 End: 01-27-2024 Patient encounter procedure Daja CUELLAR Work Phone: [facility] Work Phone: Start: 01-27-2024 End: 01-27-2024 Periodic preventive med est patient 18-39 yrs Daja CUELLAR Work Phone: [facility] Comment on above: Well woman exam with routine gynecological exam Start: 01-27-2024 End: 01-27-2024 ambulatory DAJA EPPERSON Not Available Start: 01-11-2024 End: 01-11-2024 Bamboo flowsheet Jose Maxim DO Work Phone: [facility] Start: 01-11-2024 End: 01-13-2024 External Result Encounter Jose Maxim DO Work Phone: [facility] External Department Unsolicited Start: 01-11-2024 End: 01-13-2024 External Result Encounter Jose Maxim DO Work Phone: [facility] External Department Unsolicited Start: 01-11-2024 End: 01-11-2024 ambulatory JOSE PAN Not Available Start: 01-11-2024 End: 01-11-2024 Office outpatient visit 15 minutes Jose aPn DO Work Phone: [facility] Comment on above: Pelvic pain in femal e Start: 09-22-2023 End: 09-22-2023 Emergency department patient visit SRI RAMÍREZ [facility] Start: 05-03-2022 End: 05-03-[address] SRI RAMÍREZ Facility:[facility] Start: 06-19-2021 End: 06-22-2021 ambulatory JASON [facility] Start: 06-19-2021 End: 06-21-2021 Subsequent hospital visit by physician Juan Miguel Gardner Dr [address] Radiology Comment on above: Ureteral stone with hydronephrosis Ureteral stone with hydronephrosis; Suprapubic pain; Dysuria; Urgency of urination Start: 06-12-2021 End: 06-13-2021 ambulatory JASON [facility] Start: 06-12-2021 End: 06-12-2021 Subsequent hospital visit by physician Sri Ramírez MD Work Phone: [facility] Laboratory Comment on above: Ureteral stone with hydronephrosis; Suprapubic pain; Dysuria; Urgency of urination Start: 05-21-2021 End: 05-21-[address] JOSE PAN Facility:[facility] Procedures Date Procedure Procedure Detail Performing Clinician Start: 12-05-2024 US for multiple gest ation limited Generic External Data Provider Start: 12-05-2024 Urnls dip stick/tabl et rgnt non-auto w/o micrscp Jose Maxim DO Work Phone: Start: 11-07-2024 Urnls dip stick/tabl et rgnt non-auto w/o micrscp Jose Maxim DO Work Phone: Start: 11-07-2024 US OB ANATOMY Generic E xternal Data Provider Start: 11-07-2024 US OB CERVICAL LENGTH C orey Maxim DO Work Phone: Start: 11-02-2024 AFP, SERUM, OPEN SPI NA BIFIDA Generic External Data Provider Start: 10-10-2024 Urnls dip stick/tabl et rgnt non-auto w/o micrscp Jose Maxim DO Work Phone: Start: 09-28-2024 RECURRENT VAGINITIS (HTRX) Daja CUELLAR Work Phone: Start: 09-28-2024 Urnls dip stick/tabl et rgnt non-auto w/o micrscp Daja CUELLAR Work Phone: Start: 09-13-2024 Urnls dip stick/tabl et rgnt non-auto w/o micrscp Jose Maxim DO Work Phone: Start: 08-22-2024 BOX TEST Generic Ex ternal Data Provider Start: 08-18-2024 Urnls dip stick/tabl et rgnt non-auto w/o micrscp Jose Maxim DO Work Phone: Start: 08-12-2024 Culture bacterial quanttative colony count urine Daja CUELLAR Work Phone: Start: 08-12-2024 [place]INE [place]ULTURE [place] [facility] [place] External Data Provider Start: 04-01-2024 [...] dip stick/tablet rgnt non-auto w/o micrscp Jose Pan DO Work Phone: Start: 06-19-2021 Radiologic exam abdo men 1 view Jason Driscoll Caren [employer]OR REPAIRER [employer] - [employer]TLE [employer]READER Work Phone: Start: 06-19-2021 Us retroperitoneal r eal time w/image complete Jason Driscoll Caren DOOR REPAIRER [employer] - [employer]TLE [employer]READER Work Phone: Start: 06-12-2021 Urnls dip stick/tabl et reagent auto microscopy Jason Fabian DOOR REPAIRER BUS - SHUTTLE THREADER Work Phone: Start: 04-13-2014 Lithotripsy Bonita Orz ech Plan of Treatment Date Care Activity Detail Author Start: 06-24-2030 DTaP/Tdap/Td vaccine (8 - Td or Tdap) DTaP/Tdap/Td vaccine (8 - Td or Tdap) [facility] Start: 02-06-2025 End: 02-06-2025 Patient encounter procedure 02/06/2025 11:00 AM EDT Office Visit [facility] [address] [place] [phone] Jose Pan, [address] [place] [address] [facility] Start: 12-28-2024 End: 12-28-2024 Patient encounter procedure 12/28/2024 1:20 PM EDT Routine [facility] [address] [place] [address] Jose Pan DO [address] [place], [place] [id number] [facility] Start: 12-12-2024 Influenza vaccination [facility] Start: 12-08-2024 End: 02-07-2025 US for US OB 14+ weeks anatomy scan Imaging Routine Screening, , for anatomic survey ([facility]) Expected: 12/08/2024, Expires: 02/07/2025 [facility] [employer] [employer] [employer] Work Phone: Comment on above: Expected: 12/08/2024 , Expires: 02/07/2025 Start: 12-05-2024 End: 12-05-2025 CBC panel - Blood by Automated count CBC Lab Routine Diabetes mellitus screening Expected: 12/05/2024 (Approximate), Expires: 12/05/2025 [facility] [employer] [place] [employer] Work Phone: Comment on above: Expected: 12/05/2024 (Approximate), Expires: 12/05/2025 Start: 12-05-2024 End: 12-05-2025 Measurement of glucose 1 hour after glucose challenge for glucose tolerance test Glucose tolerance, 1 hour Lab Routine Diabetes mellitus screening Expected: 12/05/2024 (Approximate), Expires: 12/05/2025 [facility] [employer] Comment on above: Expected: 12/05/2024 (Approximate), Expires: 12/05/2025 Start: 12-05-2024 End: 03-07-2025 US for US OB 14+ weeks anatomy scan Imaging Routine Screening, , for anatomic survey ([facility]) Expected: 12/05/2024, Expires: 03/07/2025 [facility] [employer] Work Phone: Comment on above: Expected: 12/05/2024 , Expires: 03/07/2025 Start: 12-05-2024 End: 12-05-2024 Professional / ancillary services management 12/05/2024 1:00 PM EDT Ancillary Procedure [facility] [address] [place] [address] [place] [address] [facility] Start: 11-07-2024 End: 11-07-2024 Patient encounter procedure [facility] Start: 10-10-2024 End: 10-10-2024 Patient encounter procedure [facility] Comment on above: Arrived Start: 10-10-2024 End: 12-10-2024 Alpha fetoprotein, maternal Alpha fetoprotein, maternal Lab Routine Second trimester ([facility]) Expected: 10/10/2024 (Approximate), Expires: 12/10/2024 [facility] Comment on above: Expected: 10/10/2024 (Approximate), Expires: 12/10/2024 Start: 10-10-2024 End: 01-10-2025 US for US OB 14+ weeks anatomy scan Imaging Routine Screening, , for anatomic survey ([facility]) Expected: 10/10/2024, Expires: 01/10/2025 [facility] Work Phone: Comment on above: Expected: 10/10/2024 , Expires: 01/10/2025 Start: 09-28-2024 End: 09-28-2024 Patient encounter procedure 09/28/2024 2:50 PM EDT Office Visit [facility] [address] [place] [phone] Daja Epperson PA [address] [facility] [address] [place], [place] [id number] Arrived [facility] Comment on above: Arrived Start: 09-14-2024 End: 09-14-2024 Patient encounter procedure 09/14/2024 1:40 PM EDT Routine [facility] [address] [place] [phone] Jose Pan DO [address] [facility] [place] [address] [facility] Start: 08-18-2024 End: 08-18-2025 ABO/Rh ABO/Rh Lab Routine Missed menses , unspecified gestational age Expected: 08/18/2024 (Approximate), Expires: 08/18/2025 [facility] Comment on above: Expected: 08/18/2024 (Approximate), Expires: 08/18/2025 Start: 08-18-2024 End: 08-18-2025 Blood type and Indirect antibody screen panel - Blood Type and screen Lab Routine Missed menses , unspecified gestational age Expected: 08/18/2024 (Approximate), Expires: 08/18/2025 [facility] Work Phone: Comment on above: Expected: 08/18/2024 (Approximate), Expires: 08/18/2025 Start: 08-18-2024 End: 08-18-2025 Drugs of abuse panel - Urine by Screen method Rapid drug screen, urine Lab Routine , unspecified gestational age Encounter for supervision of normal first in first trimester Expected: 08/18/2024 (Approximate), Expires: 08/18/2025 [facility] Comment on above: Expected: 08/18/2024 (Approximate), Expires: 08/18/2025 Start: 08-18-2024 End: 08-18-2024 ambulatory 08/18/2024 1:00 PM EDT Initial [facility] [address] [place] [address] [facility] Start: 08-18-2024 End: 08-18-2024 Professional / ancillary services management 08/18/2024 12:30 PM EDT Ancillary Procedure [facility] [address] [place] [address] [facility] Start: 07-20-2024 End: 07-20-2024 Professional / ancillary services management 07/20/2024 3:30 PM EDT Ancillary Procedure [facility] [address] [place] [address] [facility] Start: 07-18-2024 End: 09-17-2025 US Breast - left Left breast US complete Imaging Routine Mass of lower outer quadrant of left breast Expected: 07/18/2024, Expires: 09/17/2025 [facility] Work Phone: Comment on above: Expected: 07/18/2024 , Expires: 09/17/2025 Start: 07-18-2024 End: 07-18-2024 Patient encounter procedure 07/18/2024 8:20 AM EDT Office Visit [facility] [address] [place] [phone] Sri Ramírez MD [address] [facility] [place] [address] Arrived [facility] Comment on above: Arrived Start: 06-10-2024 End: 06-10-2024 Patient encounter procedure 06/10/2024 8:00 AM EST Office Visit [facility] [address] [facility] [place] [phone] Reggie Suh NP [address] [facility] [place] [address] Arrived [facility] Comment on above: Arrived Start: 04-20-2024 End: 04-20-2024 Patient encounter procedure 04/20/2024 8:50 AM EST Office Visit [facility] [address] [place] [phone] Daja Epperson PA [address] [facility] [address] [place], [place] [phone] Arrived [facility] Comment on above: Arrived Start: 03-09-2024 End: 03-09-2024 Patient encounter procedure 03/09/2024 11:20 AM EST Consult [facility] [address] [place] [address] Jose Pan DO [address] [place] [address] Arrived [facility] Comment on above: Arrived Start: 02-15-2024 End: 02-15-2024 Patient encounter procedure [facility] Comment on above: Arrived Start: 02-03-2024 End: 02-03-2024 Professional / ancillary services management 02/03/2024 10:30 AM EDT Ancillary Procedure [facility] [address] [place] [address] [facility] Start: 01-27-2024 End: 01-27-2024 Patient encounter procedure [facility] Comment on above: Arrived Start: 01-20-2024 End: 01-20-2024 Professional / ancillary services management 01/20/2024 8:30 AM EDT Ancillary Procedure [facility] [facility] [address] [place] [id number] [facility] Start: 01-11-2024 End: 01-10-2025 SURESWAB(R) ADVANCED VAGINITIS PLUS, TMA SURESWAB(R) ADVANCED VAGINITIS PLUS, TMA Pathology and Cytology Routine Pelvic pain in female Expected: 01/11/2024 (Approximate), Expires: 01/10/2025 [facility] Work Phone: Comment on above: Expected: 01/11/2024 (Approximate), Expires: 01/10/2025 Start: 01-11-2024 End: 01-10-2025 US for US PELVIS-TRANSVAG IF INDICATED Imaging Routine Pelvic pain in female Expected: 01/11/2024 (Approximate), Expires: 01/10/2025 [facility] Comment on above: Expected: 01/11/2024 (Approximate), Expires: 01/10/2025 Start: 12-13-2023 Influenza vaccination Influenza Vacc ine (#1) [facility] Start: 06-27-2021 End: 06-27-2021 Patient encounter procedure 06/27/2021 Office Visit Urology Jason Fabian, DOOR REPAIRER [employer] - [employer] [address] [place] [address] [facility] UROLOGY Part of [facility] Start: 06-19-2021 End: 06-19-2021 Patient encounter procedure 06/19/2021 Appointment Radiology [facility] Ultrasound Start: 03-04-2021 COVID-19 Vaccine (3 - Booster for Pfizer series) COVID-19 Vaccine (3 - Booster for Pfizer series) [facility] Start: 12-12-2020 Influenza vaccination Flu vaccine (# 1) [facility] Start: 2018 Screening for malign ant neoplasm of cervix Pap smear [facility] Start: 2013 Screening for Chlamy stan trachomatis Chlamydia screen [facility] Start: 02-11-2012 HIV screening HIV screen [facility] Start: 2009 Depression Screen Depression Screen [facility] Start: 2003 Pneumococcal 0-64 ye ars Vaccine (1 of 2 - PPSV23) Pneumococcal 0-64 years Vaccine (1 of 2 - PPSV23) [facility] Start: 1998 Varicella vaccine (1 of 2 - 2-dose childhood series) Varicella vaccine (1 of 2 - 2-dose childhood series) [facility] Start: 1997 Hepatitis C screening Hepatitis C sc reen [facility] Bacteria identified in Urine by Culture Urine culture Microbiology Routine Pelvic pain in female Ordered: 01/11/2024 [facility] Comment on above: Ordered: 01/11/2024 Bacteria identified in Urine by Culture Urine culture Microbiology Routine 08/12/2024 8:15 PM EDT [facility] [employer] Work Phone: Bacteria identified in Urine by Culture Urine culture Microbiology Routine Missed menses Ordered: 08/18/2024 [facility] Comment on above: Ordered: 08/18/2024 CBC W Auto Different ial panel - Blood CBC and differential Lab Routine Missed menses , unspecified gestational age Ordered: 08/18/2024 [facility] Comment on above: Ordered: 08/18/2024 CHLAMYDIA TRACHOMATI S (GENITO/STI) CHLAMYDIA TRACHOMATIS (GENITO/STI) Lab Routine Vaginal odor Ordered: 02/15/2024 [facility] Comment on above: Ordered: 02/15/2024 CHLAMYDIA TRACHOMATI S (GENITO/STI) CHLAMYDIA TRACHOMATIS (GENITO/STI) Lab Routine Pelvic pain in female Ordered: 01/11/2024 [facility] Comment on above: Ordered: 01/11/2024 CHLAMYDIA TRACHOMATI S (GENITO/STI) CHLAMYDIA TRACHOMATIS (GENITO/STI) Lab Routine Vaginal discharge Vaginal burning Ordered: 05/23/2024 [facility] Comment on above: Ordered: 05/23/2024 CHLAMYDIA TRACHOMATI S (GENITO/STI) CHLAMYDIA TRACHOMATIS (GENITO/STI) Lab Routine Screen for STD (sexually transmitted disease) Ordered: 09/28/2024 [facility] Comment on above: Ordered: 09/28/2024 End: 06-12-2021 Culture, Urine [facility] Work Phone: Comment on above: 1 Occurrences starti ng 06/12/2021 until 06/12/2021 Cytology Cervical or vaginal smear or scraping study Pap Smear Pathology and Cytology Routine Well woman exam with routine gynecological exam Ordered: 01/27/2024 [facility] Work Phone: Comment on above: Ordered: 01/27/2024 Hemoglobin A1c/Hemoglobin.total in Blood Hemoglobin A1c Lab Routine Missed menses , unspecified gestational age Ordered: 08/18/2024 [facility] Comment on above: Ordered: 08/18/2024 Hepatitis B virus surface Ag [Presence] in Serum or Plasma by Immunoassay Hepatitis B surface antigen Lab Routine Missed menses , unspecified gestational age Ordered: 08/18/2024 [facility] Comment on above: Ordered: 08/18/2024 Hepatitis C virus Ab [Presence] in Serum or Plasma by Immunoassay Hepatitis C antibody Lab Routine Missed menses , unspecified gestational age Ordered: 08/18/2024 [facility] Comment on above: Ordered: 08/18/2024 HIV-1/HIV-2 antigen/antibody combination immunoassay HIV-1 and HIV-2 antibodies Lab Routine Missed menses , unspecified gestational age Ordered: 08/18/2024 [facility] Comment on above: Ordered: 08/18/2024 Neisseria gonorrhoea e DNA [Presence] in Unspecified specimen by REKHA with probe detection Neisseria gonorrhea DNA probe, direct Lab Routine Vaginal odor Ordered: 02/15/2024 [facility] Comment on above: Ordered: 02/15/2024 Neisseria gonorrhoea e DNA [Presence] in Unspecified specimen by REKAH with probe detection Neisseria gonorrhea DNA probe, direct Lab Routine Pelvic pain in female Ordered: 01/11/2024 [facility] Comment on above: Ordered: 01/11/2024 Neisseria gonorrhoea e DNA [Presence] in Unspecified specimen by REKHA with probe detection Neisseria gonorrhea DNA probe, direct Lab Routine Vaginal discharge Vaginal burning Ordered: 05/23/2024 [facility] Comment on above: Ordered: 05/23/2024 Neisseria gonorrhoea e DNA [Presence] in Unspecified specimen by REKHA with probe detection Neisseria gonorrhea DNA probe, direct Lab Routine Screen for STD (sexually transmitted disease) Ordered: 09/28/2024 [facility] Comment on above: Ordered: 09/28/2024 Reagin Ab [Presence] in Serum by RPR RPR Lab Routine Missed menses , unspecified gestational age Ordered: 08/18/2024 [facility] Comment on above: Ordered: 08/18/2024 Rubella antibody, IgG Rubella an tibody, IgG Lab Routine Missed menses , unspecified gestational age Ordered: 08/18/2024 [facility] Comment on above: Ordered: 08/18/2024 SURESWAB(R) ADVANCED VAGINITIS PLUS, TMA SURESWAB(R) ADVANCED VAGINITIS PLUS, TMA Pathology and Cytology Routine Bacterial vaginosis Vaginal odor Ordered: 02/15/2024 [facility] Work Phone: Comment on above: Ordered: 02/15/2024 SURESWAB(R) ADVANCED VAGINITIS PLUS, TMA SURESWAB(R) ADVANCED VAGINITIS PLUS, TMA Pathology and Cytology Routine Vaginal discharge Vaginal burning Ordered: 05/23/2024 [facility] Work Phone: Comment on above: Ordered: 05/23/2024 SURESWAB(R) ADVANCED VAGINITIS PLUS, TMA SURESWAB(R) ADVANCED VAGINITIS PLUS, TMA Pathology and Cytology Routine Screen for STD (sexually transmitted disease) Ordered: 09/28/2024 [facility] Work Phone: Comment on above: Ordered: 09/28/2024 [place] [facility] [place] [facility] [place] Routine 08/12/2024 8:15 PM EDT [facility] Immunizations Immunization Date Immunization Notes Care Provider [facility] 06-24-2020 diphtheria, tetanus toxoids and pertussis vaccine Jose Maxim DO Work Phone: [facility] 06-04-2010 human papilloma viru s vaccine, quadrivalent Jose Maxim DO Work Phone: [facility] 02-05-2010 human papilloma viru s vaccine, quadrivalent Jose Maxim DO Work Phone: [facility] 11-26-2009 human papilloma viru s vaccine, quadrivalent Jose Maxim DO Work Phone: [facility] 11-26-2009 tetanus toxoid, redu riky diphtheria toxoid, and acellular pertussis vaccine, adsorbed Jose Maxim DO Work Phone: [facility] 10-27-2002 diphtheria, tetanus toxoids and acellular pertussis vaccine, unspecified formulation Jose Maxim DO Work Phone: [facility] Work Phone: 10-27-2002 measles, mumps and rubella virus vaccine Jose Maxim DO Work Phone: [facility] 10-27-2002 poliovirus vaccine, inactivated Jose Maxim DO Work Phone: [facility] 05-15-1998 diphtheria, tetanus toxoids and acellular pertussis vaccine, unspecified formulation Jose Maxim DO Work Phone: [facility] 05-15-1998 haemophilus influenz ae type b vaccine, PRP-T conjugate Ojse Maxim DO Work Phone: [facility] 05-15-1998 measles, mumps and rubella virus vaccine Jose Maxim DO Work Phone: [facility] 05-15-1998 poliovirus vaccine, inactivated Jose Maxim DO Work Phone: [facility] 1997 diphtheria, tetanus toxoids and acellular pertussis vaccine, unspecified formulation Jose Maxim DO Work Phone: [facility] 1997 haemophilus influenz ae type b conjugate and Hepatitis B vaccine Jose Maxim DO Work Phone: [facility] 1997 diphtheria, tetanus toxoids and acellular pertussis vaccine, unspecified formulation Jose Maxim DO Work Phone: [facility] 1997 haemophilus influenz ae type b vaccine, conjugate unspecified formulation Jose Maxim DO Work Phone: [facility] 1997 poliovirus vaccine, inactivated Jose Maxim DO Work Phone: [facility] 1997 diphtheria, tetanus toxoids and acellular pertussis vaccine, unspecified formulation Jose Maxim DO Work Phone: [facility] 1997 haemophilus influenz ae type b vaccine, conjugate unspecified formulation Jose Maxim DO Work Phone: [facility] 1997 hepatitis B vaccine, pediatric or pediatric/adolescent dosage Jose Maxim DO Work Phone: [facility] 1997 poliovirus vaccine, inactivated Jose Maxim DO Work Phone: [facility] 1997 hepatitis B vaccine, pediatric or pediatric/adolescent dosage Jose Maxim DO Work Phone: [facility] Healthcare Payers Date Payer Category Payer [facility] BCBS [id number] 2023 [id number] 2023-Present [phone] [address] [place] [address] [id number] 2020 Medicaid [employer] [employer] [id number] 2020-Present [address] [place] [address] [id number] 2020 Medicaid (Managed Care) [employer] [id number] 2020 Unknown [id number] 1997 Unknown [id number] 2.16.840.1.292152.3.579.2.1 73 1997 Unknown [id number] 2.16.840.1.253529.3.579.2.1 73 1997 Unknown [id number] 2.16.840.1.586211.3.579.2.1 73 1997 Unknown [id number] 2.16.840.1.595811.3.579.2.1 73 1997 Unknown [id number] 2.16.840.1.312828.3.579.2.5 93 1997 Unknown [id number] 2.16.840.1.252697.3.579.2.5 93 1997 Unknown [id number] 2.16.840.1.437994.3.579.2.1 75 1997 Unknown [id number] 2.16.840.1.955534.3.579.2.7 27 1997 Unknown [id number] 2.16.840.1.862892.3.579.2.7 27 1997 Unknown [id number] 2.16.840.1.408027.3.579.2.7 27 1997 Unknown [id number] 2.16.840.1.689418.3.579.2.7 27 1997 Unknown [id number] 2.16.840.1.888918.3.579.2.7 27 1997 Unknown [id number] 2.16.840.1.052145.3.579.2.7 27 1997 Unknown [id number] 2.16.840.1.066958.3.579.2.7 27 1997 Unknown [id number] 2.16.840.1.811113.3.579.2.1 259 1997 Unknown [id number] 2.16.840.1.383087.3.579.2.1 259 1997 Unknown [id number] 2.16.840.1.109914.3.579.2.1 259 1997 Unknown [id number] 2.16.840.1.176785.3.579.2.1 259 1997 Unknown [id number] 2.16.840.1.215678.3.579.2.1 259 1997 Unknown [id number] 2.16.840.1.109442.3.579.2.1 259 1997 Unknown [id number] 2.16.840.1.653699.3.579.2.1 259 1997 Unknown [id number] 2.16.840.1.236683.3.579.2.1 259 1997 Unknown [id number] 2.16.840.1.319015.3.579.2.1 259 1997 Unknown [id number] 2.16.840.1.534854.3.579.2.1 259 1997 Unknown [id number] 2.16.840.1.581544.3.579.2.1 259 1997 Unknown [id number] 2.16.840.1.065838.3.579.2.1 259 1997 Unknown [id number] 2.16.840.1.022081.3.579.2.1 259 1997 Unknown [id number] 2.16.840.1.852795.3.579.2.1 259 1997 Unknown [id number] 2.16.840.1.265697.3.579.2.1 259 1997 Unknown [id number] 2.16.840.1.667385.3.579.2.1 259 1959 Unknown [id number] 1.2.840.237748.1.13.239.2.7 .3.493869.315 1959 Unknown [id number] 1.2.840.375593.1.13.239.2.7 .3.371284.315 1959 Unknown [id number] Social History Date Type Detail Facility Start: 06-12-2021 End: 11-16-2023 Tobacco smoking status [facility] Start: 06-12-2021 End: 09-24-2023 Cigarettes smoked current (pack per day) - Reported 0.25 [facility] Start: 06-12-2021 End: 11-16-2023 Tobacco use and exposure Smokeless tobacco non-user [employer] Phone: Start: 06-12-2021 Alcohol intake Current non-drinker of alcohol (finding) [employer] Phone: Start: 1997 Sex Assigned At Not on file [employer] Phone: History of tobacco use Current smoker [facility] Start: 01-11-2024 End: 09-28-2024 Alcoholic beverage intake Lifetime non-drinker (finding) [facility] Start: 09-24-2023 End: 07-18-2024 [id number] Health Literacy [facility] How often do you nee d to have someone help you when you read instructions, pamphlets, or other written material from your doctor or pharmacy [SILS] Never [facility] Do you belong to any clubs or organizations such as anabaptist groups, unions, fraternal or athletic groups, or [...] 03-01-2024 Functional Status N/A [facility] Clinical Notes 01-11-2024 to 12-05-2024 Jake Guntre NP - 12/05/2024 1:50 PM Ricardo Gunter NP - 11/07/2024 2:00 PM Ricardo Gunter NP - 10/10/2024 2:20 PM EDTMandrea Figueroa MA - 09/28/2024 2:50 PM EDT Note Date & Type Note Facility 12-05-2024 History of Presen t illness Narrative Reason [...] 09/06/2022 Bipolar affective disorder, currently depressed, moderate (HCC) 09/06/2022 Complication of intrauterine device (IUD) 09/06/2022 Inattention 09/06/2022 Irregular menses 09/06/2022 Irritable bowel syndrome with diarrhea 09/06/2022 Menstrual cramp 09/06/2022 Pain in pelvis 09/06/2022 Generalized anxiety disorder 09/06/2022 Post-traumatic stress disorder 09/06/2022 Slow transit constipation 09/06/2022 Anxiety during ([facility]) 03/26/2020 Depression affecting ([facility]) 03/26/2020 History of chlamydia 03/26/2020 Bacterial infection due to mycoplasma 02/15/2024 Vaginal odor 02/15/2024 Urinary tract infection without hematuria 02/15/2024 Bacterial vaginosis 02/15/2024 Bladder pain 07/18/2024 Calculus of kidney 07/25/2013 Gross hematuria 07/18/2024 Resolved Ambulatory Problems Diagnosis Date Noted No Resolved Ambulatory Problems Past Medical History: Diagnosis Date ADHD (attention deficit hyperactivity disorder) Bipolar disorder (manic depression) ([facility]) BMI 24.0-24.9, adult Chicken pox 2007 Headache IBS (irritable bowel syndrome) Intrauterine device surveillance Pelvic pain Urinary tract infection HISTORY PAST MEDICAL HISTORY SOCIAL HISTORY Past Medical History: Diagnosis Date ADHD (attention deficit hyperactivity disorder) Adjustment disorder with mixed anxiety and depressed mood Amenorrhea Anxiety Bipolar disorder (manic depression) ([facility]) BMI 24.0-24.9, adult Chicken pox 2007 Complication [...] SMEAR 05/21/2021 negative WISDOM TOOTH EXTRACTION 2015 [place] teeth REVIEW OF SYSTEMS Review of Systems: [...] nursing note reviewed. Exam conducted with a supervisor drilling and shooting present. Vitals: Estimated body mass index is 25.22 kg/m as calculated from the following: Height as of 07/18/24: 5' 7 . Weight as of this encounter: 161 lb. BP: 110/72 Patient's last menstrual period was 06/19/2024. ASSESSMENT & PLAN ICD-10-CM 1. Second trimester ([facility]) Z34.92 POCT urinalysis dipstick manually resulted 2. 24 weeks gestation of ([facility]) Z3A.24 3. Diabetes mellitus screening Z13.1 CBC [...] for routine OB appointment. Will repeat anatomy ultrasound in 4 weeks at 28 weeks. Reviewed ultrasound today and previously identified choroid plexuses are less conspicuous on 12/05/24 study. Documented by Jake Gunter NP on behalf of: Jose Pan DO documented in this encounter [facility] 11-07-2024 History of Presen t illness Narrative Reason [...] 09/06/2022 Bipolar affective disorder, currently depressed, moderate ([facility]) 09/06/2022 Complication of intrauterine device (IUD) 09/06/2022 Inattention 09/06/2022 Irregular menses 09/06/2022 Irritable bowel syndrome with diarrhea 09/06/2022 Menstrual cramp 09/06/2022 Pain in pelvis 09/06/2022 Generalized anxiety disorder 09/06/2022 Post-traumatic stress disorder 09/06/2022 Slow transit constipation 09/06/2022 Anxiety during ([facility]) 03/26/2020 Depression affecting ([facility]) 03/26/2020 History of chlamydia 03/26/2020 Bacterial infection due to mycoplasma 02/15/2024 Vaginal odor 02/15/2024 Urinary tract infection without hematuria 02/15/2024 Bacterial vaginosis 02/15/2024 Bladder pain 07/18/2024 Calculus of kidney 07/25/2013 Gross hematuria 07/18/2024 Resolved Ambulatory Problems Diagnosis Date Noted No Resolved Ambulatory Problems Past Medical History: Diagnosis Date ADHD (attention deficit hyperactivity disorder) Bipolar disorder (manic depression) ([facility]) BMI 24.0-24.9, adult Chicken pox 2008 Headache IBS (irritable bowel syndrome) Intrauterine device surveillance Pelvic pain Urinary tract infection HISTORY PAST MEDICAL HISTORY SOCIAL HISTORY Past Medical History: Diagnosis Date ADHD (attention deficit hyperactivity disorder) Adjustment disorder with mixed anxiety and depressed mood Amenorrhea Anxiety Bipolar disorder (manic depression) ([facility]) BMI 24.0-24.9, adult Chicken pox 2008 Complication of intrauterine device (IUD) Headache IBS [...] SMEAR 05/21/2021 negative WISDOM TOOTH EXTRACTION 2015 [place] teeth REVIEW OF SYSTEMS Review of Systems: [...] nursing note reviewed. Exam conducted with a supervisor drilling and shooting present. Vitals: Estimated body mass index is 24.59 kg/m as calculated from the following: Height as of 25: 5' 7 . Weight as of this encounter: 157 lb. BP: 118/70 Patient's last menstrual period was 06/19/2024. ASSESSMENT & PLAN (Z34.92) Second trimester ([facility]) Plan: POCT urinalysis dipstick manually resulted (Z3A.20) 20 weeks gestation of ([facility]) Return OB: Patient presents today for a routine obstetrics appointment. Patient is currently 20w1d . Patient states she is doing well but has complaints of being tired due to current . Patient has verbalizes frequent movement. labor precautions was discussed/given and patient was instructed to perform kick counts three times a day. Orders Placed This Encounter Procedures US OB 14+ weeks anatomy scan POCT urinalysis dipstick manually resulted Follow Up: Patient is to return to office in 4 week for routine OB appointment. Will repeat anatomy ultrasound in 4 weeks choroid cyst noted on last ultrasound Documented by Jake Gunter NP on behalf of: Jose Pan DO documented in this encounter [facility] 10-10-2024 History of Presen t illness Narrative Reason [...] 09/06/2022 Bipolar affective disorder, currently depressed, moderate ([facility]) 09/06/2022 Complication of intrauterine device (IUD) 09/06/2022 Inattention 09/06/2022 Irregular menses 09/06/2022 Irritable bowel syndrome with diarrhea 09/06/2022 Menstrual cramp 09/06/2022 Pain in pelvis 09/06/2022 Generalized anxiety disorder 09/06/2022 Post-traumatic stress disorder 09/06/2022 Slow transit constipation 09/06/2022 Anxiety during ([facility]) 03/26/2020 Depression affecting ([facility]) 03/26/2020 History of chlamydia 03/26/2020 Bacterial infection due to mycoplasma 02/15/2024 Vaginal odor 02/15/2024 Urinary tract infection without hematuria 02/15/2024 Bacterial vaginosis 02/15/2024 Bladder pain 07/18/2024 Calculus of kidney 07/25/2013 Gross hematuria 07/18/2024 Resolved Ambulatory Problems Diagnosis Date Noted No Resolved Ambulatory Problems Past Medical History: Diagnosis Date ADHD (attention deficit hyperactivity disorder) Bipolar disorder (manic depression) ([facility]) BMI 24.0-24.9, adult Chicken pox 2007 Headache IBS (irritable bowel syndrome) Intrauterine device surveillance Pelvic pain Urinary tract infection HISTORY PAST MEDICAL HISTORY SOCIAL HISTORY Past Medical History: Diagnosis Date ADHD (attention deficit hyperactivity disorder) Adjustment disorder with mixed anxiety and depressed mood Amenorrhea Anxiety Bipolar disorder (manic depression) ([facility]) BMI 24.0-24.9, adult Chicken pox 2007 Complication [...] SMEAR 05/21/2021 negative WISDOM TOOTH EXTRACTION 2015 [place] teeth REVIEW OF SYSTEMS Review of Systems: [...] nursing note reviewed. Exam conducted with a supervisor drilling and shooting present. Vitals: Estimated body mass index is 24 kg/m as calculated from the following: Height as of 25: 5' 7 . Weight as of this encounter: 153 lb 4 oz. BP: 108/60 Patient's last menstrual period was 06/19/2024. ASSESSMENT & PLAN ICD-10-CM 1. Second trimester ([facility]) Z34.92 Alpha fetoprotein, maternal Alpha fetoprotein, maternal POCT urinalysis dipstick manually resulted 2. 16 weeks gestation of ([facility]) Z3A.16 3. Screening, , for anatomic survey ([facility]) Z36.89 US OB 14+ weeks anatomy scan Return OB: Patient presents today for a routine obstetrics appointment. Patient is currently 16w1d . Patient states she is doing well but has complaints of being tired due to current . Patient has verbalizes frequent movement. labor precautions was discussed/given and patient was instructed to perform kick counts three times a day. Orders Placed This Encounter Procedures US OB 14+ weeks anatomy scan Alpha fetoprotein, maternal POCT urinalysis dipstick manually resulted Follow Up: Patient is to return to office in 4 week for routine OB appointment. Documented by Jake Gunter NP on behalf of: Jose Pan DO documented in this encounter [facility] 09-28-2024 History of Presen t illness Narrative Reason [...] 09/06/2022 Bipolar affective disorder, currently depressed, moderate ([facility]) 09/06/2022 Complication of intrauterine device (IUD) 09/06/2022 Inattention 09/06/2022 Irregular menses 09/06/2022 Irritable bowel syndrome with diarrhea 09/06/2022 Menstrual cramp 09/06/2022 Pain in pelvis 09/06/2022 Generalized anxiety disorder 09/06/2022 Post-traumatic stress disorder 09/06/2022 Slow transit constipation 09/06/2022 Anxiety during ([facility]) 03/26/2020 Depression affecting ([facility]) 03/26/2020 History of chlamydia 03/26/2020 Bacterial infection due to mycoplasma 02/15/2024 Vaginal odor 02/15/2024 Urinary tract infection without hematuria 02/15/2024 Bacterial vaginosis 02/15/2024 Bladder pain 07/18/2024 Calculus of kidney 07/25/2013 Gross hematuria 07/18/2024 Resolved Ambulatory Problems Diagnosis Date Noted No Resolved Ambulatory Problems Past Medical History: Diagnosis Date ADHD (attention deficit hyperactivity disorder) Bipolar disorder (manic depression) ([facility]) BMI 24.0-24.9, adult Chicken pox 2007 Headache IBS (irritable bowel syndrome) Intrauterine device surveillance Pelvic pain Urinary tract infection HISTORY PAST MEDICAL HISTORY SOCIAL HISTORY Past Medical History: Diagnosis Date ADHD (attention deficit hyperactivity disorder) Adjustment disorder with mixed anxiety and depressed mood Amenorrhea Anxiety Bipolar disorder (manic depression) ([facility]) BMI 24.0-24.9, adult Chicken pox 2007 Complication [...] SMEAR 05/21/2021 negative WISDOM TOOTH EXTRACTION 2015 [place] teeth REVIEW OF SYSTEMS Review of Systems: Review of Systems All other systems reviewed and are negative. [...] nursing note reviewed. Exam conducted with a supervisor drilling and shooting present. Vitals: Estimated body mass index is 23.34 kg/m as calculated from the following: Height as of 07/18/24: 5' 7 . Weight as of this encounter: 149 lb. BP: 116/70 Patient's last menstrual period was 06/19/2024. ASSESSMENT & PLAN ICD-10-CM 1. Second trimester ([facility]) Z34.92 POCT urinalysis dipstick manually resulted 2. 14 weeks gestation of ([facility]) Z3A.14 3. Screen for STD (sexually transmitted disease) Z11.3 SURESWAB(R) ADVANCED VAGINITIS PLUS, TMA CHLAMYDIA TRACHOMATIS (GENITO/STI) Neisseria gonorrhea DNA probe, direct Return OB/Annual Exam: Patient presents today for an annual exam/routine obstetrics appointment. Patient is currently 14w3d . Complaining of light yellow discharge and feeling uncomfortable/itching for a few days. Patient is doing well and states she has no complaints. Pap was done on 01/27/2024 and not due until January 2025. Cultures was obtained without difficulty. Orders Placed This Encounter Procedures CHLAMYDIA TRACHOMATIS (GENITO/STI) Neisseria gonorrhea DNA probe, direct POCT urinalysis dipstick manually resulted Follow Up: Patient is to return to our office in 4 weeks for routine OB appointment Documented by Nasreen Figueroa MA on behalf of: ALISA Coyle Reason for Appointment: Patient ID: Faheem Belcher is a 29 y.o. female who presents for Routine Visit Patient presents today for Acute Visit. MEDICATIONS Current Outpatient Medications Medication Instructions co-enzyme [...] 09/06/2022 Bipolar affective disorder, currently depressed, moderate ([facility]) 09/06/2022 Complication of intrauterine device (IUD) 09/06/2022 Inattention 09/06/2022 Irregular menses 09/06/2022 Irritable bowel syndrome with diarrhea 09/06/2022 Menstrual cramp 09/06/2022 Pain in pelvis 09/06/2022 Generalized anxiety disorder 09/06/2022 Post-traumatic stress disorder 09/06/2022 Slow transit constipation 09/06/2022 Anxiety during ([facility]) 03/26/2020 Depression affecting ([facility]) 03/26/2020 History of chlamydia 03/26/2020 Bacterial infection due to mycoplasma 02/15/2024 Vaginal odor 02/15/2024 Urinary tract infection without hematuria 02/15/2024 Bacterial vaginosis 02/15/2024 Bladder pain 07/18/2024 Calculus of kidney 07/25/2013 Gross hematuria 07/18/2024 Resolved Ambulatory Problems Diagnosis Date Noted No Resolved Ambulatory Problems Past Medical History: Diagnosis Date ADHD (attention deficit hyperactivity disorder) Bipolar disorder (manic depression) ([facility]) BMI 24.0-24.9, adult Chicken pox 2007 Headache IBS (irritable bowel syndrome) Intrauterine device surveillance Pelvic pain Urinary tract infection HISTORY PAST MEDICAL HISTORY SOCIAL HISTORY Past Medical History: Diagnosis Date ADHD (attention deficit hyperactivity disorder) Adjustment disorder with mixed anxiety and depressed mood Amenorrhea Anxiety Bipolar disorder (manic depression) ([facility]) BMI 24.0-24.9, adult Chicken pox 2007 Complication [...] SMEAR 05/21/2021 negative WISDOM TOOTH EXTRACTION 2015 [place] teeth REVIEW OF SYSTEMS Review of Systems: Review of Systems Constitutional: Negative. HENT: Negative. Eyes: Negative. Respiratory: Negative. Cardiovascular: Negative. Gastrointestinal: Negative. Genitourinary: Positive for vaginal discharge. Musculoskeletal: Negative. Skin: Negative. Neurological: Negative. All [...] nursing note reviewed. Exam conducted with a supervisor drilling and shooting present. Vitals: Estimated body mass index is 23.34 kg/m as calculated from the following: Height as of 07/18/24: 5' 7 . Weight as of this encounter: 149 lb. BP: 116/70 Patient's last menstrual period was 06/19/2024. ASSESSMENT & PLAN ICD-10-CM 1. Second trimester ([facility]) Z34.92 POCT urinalysis dipstick manually resulted 2. 14 weeks gestation of ([facility]) Z3A.14 3. Screen for STD (sexually transmitted disease) Z11.3 SURESWAB(R) ADVANCED VAGINITIS PLUS, TMA CHLAMYDIA TRACHOMATIS (GENITO/STI) Neisseria gonorrhea DNA probe, direct Patient presents with complaints of vaginal discharge. She denies any pelvic pain today. Cultures are obtained today. She will return in 2 weeks for her routine OB appointment. Documented by Jake Gunter NP on behalf of: ALISA Coyle documented in this encounter [facility] 09-13-2024 History of Presen t illness Narrative Reason [...] disorder with mixed anxiety and depressed mood ([facility]) 09/06/2022 Amenorrhea 09/06/2022 Anxiety 09/06/2022 Bipolar affective disorder, currently depressed, moderate ([facility]) 09/06/2022 Complication of intrauterine device (IUD) ([facility]) 09/06/2022 Inattention 09/06/2022 Irregular menses 09/06/2022 Irritable bowel syndrome with diarrhea 09/06/2022 Menstrual cramp 09/06/2022 Pain in pelvis 09/06/2022 Generalized anxiety disorder ([facility]) 09/06/2022 Post-traumatic stress disorder ([facility]) 09/06/2022 Slow transit constipation 09/06/2022 Anxiety during 03/26/2020 Depression affecting ([facility]) 03/26/2020 History of chlamydia 03/26/2020 Bacterial infection due to mycoplasma 02/15/2024 Vaginal odor 02/15/2024 Urinary tract infection without hematuria 02/15/2024 Bacterial vaginosis 02/15/2024 Bladder pain 07/18/2024 Calculus of kidney 07/25/2013 Gross hematuria 07/18/2024 Resolved Ambulatory Problems Diagnosis Date Noted No Resolved Ambulatory Problems Past Medical History: Diagnosis Date ADHD (attention deficit hyperactivity disorder) ([facility]) Bipolar disorder (manic depression) ([facility]) BMI 24.0-24.9, adult Chicken pox 2007 Headache IBS (irritable bowel syndrome) Intrauterine device surveillance Pelvic pain Urinary tract infection HISTORY PAST MEDICAL HISTORY SOCIAL HISTORY Past Medical History: Diagnosis Date ADHD (attention deficit hyperactivity disorder) ([facility]) Adjustment disorder with mixed anxiety and depressed mood ([facility]) Amenorrhea Anxiety Bipolar disorder (manic depression) ([facility]) BMI 24.0-24.9, adult Chicken pox 2007 Complication of intrauterine device (IUD) ([facility]) Headache IBS (irritable bowel syndrome) IBS [...] SMEAR 05/21/2021 negative WISDOM TOOTH EXTRACTION 2015 [place] teeth REVIEW OF SYSTEMS Review of Systems: [...] nursing note reviewed. Exam conducted with a supervisor drilling and shooting present. Vitals: Estimated body mass index is 22.99 kg/m as calculated from the following: Height as of 07/18/24: 5' 7 . Weight as of this encounter: 146 lb 12.8 oz. BP: 114/70 Patient's last menstrual period was 06/19/2024. ASSESSMENT & PLAN ICD-10-CM 1. First trimester Z34.91 POCT urinalysis dipstick manually resulted 2. 12 weeks gestation of Z3A.12 POCT urinalysis dipstick manually resulted New OB: Patient presents today for 1st time obstetrics appointment with provider. Patient is currently 12w2d . Patients history has been reviewed in great detail including any potential risks. Patient stated she currently has no complaints. Expectations throughout regarding labs, ultrasounds, and appointments have been discussed with the patient in detail. It was reiterated that the patient is to drink 6-8 glasses of water a day, eat 6 small meals a day, do not consume raw or undercooked meat, and stay away from [facility]. Patient has been consulted regarding any further do's and don'ts of . Patient voiced understanding and all questions and concerns were answered. Pt has uti symptoms- rx for macrobid faxed to pharmacy. Orders Placed This Encounter Procedures POCT urinalysis dipstick manually resulted Follow Up: Patient is to return in 4 weeks for routine OB appointment. Documented by Ana Mcintosh LPN on behalf of: Jose Pan DO documented in this encounter [facility] 08-18-2024 History of Presen t illness Narrative [...] disorder with mixed anxiety and depressed mood ([facility]) 09/06/2022 Amenorrhea 09/06/2022 Anxiety 09/06/2022 Bipolar affective disorder, currently depressed, moderate ([facility]) 09/06/2022 Complication of intrauterine device (IUD) ([facility]) 09/06/2022 Inattention 09/06/2022 Irregular menses 09/06/2022 Irritable bowel syndrome with diarrhea 09/06/2022 Menstrual cramp 09/06/2022 Pain in pelvis 09/06/2022 Generalized anxiety disorder ([facility]) 09/06/2022 Post-traumatic stress disorder ([facility]) 09/06/2022 Slow transit constipation 09/06/2022 Anxiety during 03/26/2020 Depression affecting ([facility]) 03/26/2020 History of chlamydia 03/26/2020 Bacterial infection due to mycoplasma 02/15/2024 Vaginal odor 02/15/2024 Urinary tract infection without hematuria 02/15/2024 Bacterial vaginosis 02/15/2024 Bladder pain 07/18/2024 Calculus of kidney 07/25/2013 Gross hematuria 07/18/2024 Resolved Ambulatory Problems Diagnosis Date Noted No Resolved Ambulatory Problems Past Medical History: Diagnosis Date ADHD (attention deficit hyperactivity disorder) ([facility]) Bipolar disorder (manic depression) ([facility]) BMI 24.0-24.9, adult Chicken pox 2007 Headache [...] SMEAR 05/21/2021 negative WISDOM TOOTH EXTRACTION 2015 [place] teeth Allergies Allergen Reactions Bacitracin-Polymyxin B Other [...] urine; Future Nurse Note: Patient unsure of [place] [employer] to one. OB Intake: Patient presents today for first OB visit. Patients history has been reviewed in great detail including any potential risks. Patient signed consent forms and patient desires testing in both trimesters. Patient currently has no complaints and has been advised to drink 6-8 glasses of water a day, eat no raw or undercooked meat, and stay away from [facility]. Patient has also been advised to [...] Nasreen Figueroa MA documented in this encounter [facility] 08-01-2024 Note Patient Education Urology Kidney Stones [...] these instructions at home: Medicines ??? Take [id number] and prescription medicines only as told by [...] provider. Document Revised: 11/21/2022 Document Reviewed: 11/21/2022 [employer] Patient Education ? 2023 [employer]. [facility] 07-18-2024 History of Presen t illness Narrative [...] during her subsequent annual visit with her STAFF COUNSEL, the diagnosis of bilateral fibroids was confirmed, leading her to forego the ultrasound. Over the past weekend, she has noticed an increase in the size of the left breast mass, accompanied by tenderness. She recently had a positive test. She is scheduled to see her STAFF COUNSEL in 08/2024. Supplemental Information She takes D-mannose [...] SMEAR 05/21/2021 negative WISDOM TOOTH EXTRACTION 2015 [place] teeth FAMILY HISTORY: Family History Problem Relation [...] of the lump. documented in this encounter [facility] 06-10-2024 Telephone encounter Note Faheem called - she asked if its ok that you go ahead and send the referral for her hand now,please. Ty [facility] 06-10-2024 Miscellaneous Notes Faheem called - she asked if its ok that you go ahead and send the referral for her hand now,please. Ty documented in this encounter [facility] 06-10-2024 History of Presen t illness Narrative [...] Flowsheet Row Patient Outreach from 06/09/2024 in [facility] with Massimo Buchanan LPN Hospital Information ED, Hospital or [facility] Facility Discharge? ED Patient has been contacted within 1 week of being seen in the ED No Have two attempts been made to contact the patient within one week of being seen in the ED? Yes Diagnosis Right thumb laceration. Discharge Date 06/01/24 Discharged To: Home Setting Discharge Hospital [facility] Admission Date 06/01/24 Medications Appointments Does the [...] Diagnosis Date ADHD (attention deficit hyperactivity disorder) ([facility]) Adjustment disorder with mixed anxiety and depressed mood ([facility]) Amenorrhea Anxiety Bipolar disorder (manic depression) ([facility]) BMI 24.0-24.9, adult Chicken pox 2008 Complication of intrauterine device (IUD) ([facility]) Headache IBS (irritable bowel syndrome) IBS with [...] SMEAR 05/21/2021 negative WISDOM TOOTH EXTRACTION 2015 [place] teeth REVIEW OF SYMPTOMS: Review of Systems [...] up as needed. documented in this encounter [facility] 05-23-2024 History of Presen t illness Narrative [...] disorder with mixed anxiety and depressed mood ([facility]) 09/06/2022 Amenorrhea 09/06/2022 Anxiety 09/06/2022 Bipolar affective disorder, currently depressed, moderate ([facility]) 09/06/2022 Complication of intrauterine device (IUD) ([facility]) 09/06/2022 Inattention 09/06/2022 Irregular menses 09/06/2022 Irritable bowel syndrome with diarrhea 09/06/2022 Menstrual cramp 09/06/2022 Pain in pelvis 09/06/2022 Generalized anxiety disorder ([facility]) 09/06/2022 Post-traumatic stress disorder ([facility]) 09/06/2022 Slow transit constipation 09/06/2022 Anxiety during 03/26/2020 Depression affecting ([facility]) 03/26/2020 History of chlamydia 03/26/2020 Bacterial infection due to mycoplasma 02/15/2024 Vaginal odor 02/15/2024 Urinary tract infection without hematuria 02/15/2024 Bacterial vaginosis 02/15/2024 Resolved Ambulatory Problems Diagnosis Date Noted No Resolved Ambulatory Problems Past Medical History: Diagnosis Date ADHD (attention deficit hyperactivity disorder) ([facility]) Bipolar disorder (manic depression) ([facility]) BMI 24.0-24.9, adult Chicken pox 2007 Headache IBS (irritable bowel syndrome) Intrauterine device surveillance Pelvic pain Urinary tract infection HISTORY PAST MEDICAL HISTORY SOCIAL HISTORY Past Medical History: Diagnosis Date ADHD (attention deficit hyperactivity disorder) ([facility]) Adjustment disorder with mixed anxiety and depressed mood ([facility]) Amenorrhea Anxiety Bipolar disorder (manic depression) ([facility]) BMI 24.0-24.9, adult Chicken pox 2007 Complication of intrauterine device (IUD) ([facility]) Headache IBS (irritable bowel syndrome) IBS [...] SMEAR 05/21/2021 negative WISDOM TOOTH EXTRACTION 2015 [place] teeth REVIEW OF SYSTEMS Review of Systems: [...] of: ALISA Coyle documented in this encounter [facility] 04-20-2024 History of Presen t illness Narrative [...] disorder with mixed anxiety and depressed mood ([facility]) 09/06/2022 Amenorrhea 09/06/2022 Anxiety 09/06/2022 Bipolar affective disorder, currently depressed, moderate ([facility]) 09/06/2022 Complication of intrauterine device (IUD) ([facility]) 09/06/2022 Inattention 09/06/2022 Irregular menses 09/06/2022 Irritable bowel syndrome with diarrhea 09/06/2022 Menstrual cramp 09/06/2022 Pain in pelvis 09/06/2022 Generalized anxiety disorder (CMS/[facility]) 09/06/2022 Post-traumatic stress disorder ([facility]) 09/06/2022 Slow transit constipation 09/06/2022 Anxiety during 03/26/2020 Depression affecting ([facility]) 03/26/2020 History of chlamydia 03/26/2020 Bacterial infection due to mycoplasma 02/15/2024 Vaginal odor 02/15/2024 Urinary tract infection without hematuria 02/15/2024 Bacterial vaginosis 02/15/2024 Resolved Ambulatory Problems Diagnosis Date Noted No Resolved Ambulatory Problems Past Medical History: Diagnosis Date ADHD (attention deficit hyperactivity disorder) ([facility]) Bipolar disorder (manic depression) ([facility]) BMI 24.0-24.9, adult Chicken pox 2008 Headache IBS (irritable bowel syndrome) Intrauterine device surveillance Pelvic pain Urinary tract infection HISTORY PAST MEDICAL HISTORY SOCIAL HISTORY Past Medical History: Diagnosis Date ADHD (attention deficit hyperactivity disorder) ([facility]) Adjustment disorder with mixed anxiety and depressed mood ([facility]) Amenorrhea Anxiety Bipolar disorder (manic depression) ([facility]) BMI 24.0-24.9, adult Chicken pox 2008 Complication of intrauterine device (IUD) ([facility]) Headache IBS (irritable bowel syndrome) IBS [...] SMEAR 05/21/2021 negative WISDOM TOOTH EXTRACTION 2015 [place] teeth REVIEW OF SYSTEMS Review of Systems: [...] nursing note reviewed. Exam conducted with a supervisor drilling and shooting present. Vitals: Estimated body mass index is [...] Jose Pan DO documented in this encounter [facility] 03-29-2024 Note Urology Office/Clini c Note [...] gross hematuria. Pt. states she was in [place] ER for cystitis Frequency: 2-3 hours Urgency: [...] with voice recognition artificial intelligence software, specifically [employer], [employer] and or [employer]. Substitutions may have occurred due to the [...] OBGYN regarding poss endometriosis dx May be [employer] source of pain Does not necessarily improve [...] intake. Restrict animal protein. -KUB/ MARCIA at [facility], call pt w/ results Orders: cephalexin, 500 mg = 1 cap(s), Oral, BID, X 7 day(s), # 14 cap(s), Refills(s) 0, Pharmacy: [id number], 174, cm, 03/01/24 10:48:00 EST, Height/Length [...] Primary malignant neoplasm of female breast: Grandparent. [facility] Comment on above: Result Comment: Elec tronically Signed By: SRUTHI Yu APRN, [place] X\.br\Date and Time Signed: 03/29/24 10:28 EST 03-21-2024 Evaluation + Plan note Diagnostic Tests PendingUrine Culture 03/21/24 [facility] 03-09-2024 History of Presen t illness Narrative Reason for Appointment: Patient ID: Faheem Belcher is a 29 y.o. female who presents for Pre-op Visit Patient presents today for Pre Op appointment. Patient is scheduled to undergo Da Neha assisted Diagnostic Laparoscopy, possible ZAHRA, possible FOE, possible BSO on 04/01/[address] Pan at [facility]. MEDICATIONS Current Outpatient Medications Medication Instructions azithromycin (Zithromax) 500 MG tablet Day 1: Take 2 tablets PO onetime dose; Day 2,3,4: Take 1 tablet daily ALLERGIES Allergies Allergen Reactions Bacitracin-Polymyxin B Other Reaction(s): Unknown Lexapro [Escitalopram] Other groggy Buspar [Buspirone] Anxiety Caused heart palpitations and increased anxiety PROBLEMS Active Ambulatory Problems Diagnosis Date Noted Adjustment disorder with mixed anxiety and depressed mood ([facility]) 09/06/2022 Amenorrhea 09/06/2022 Anxiety 09/06/2022 Bipolar affective disorder, currently depressed, moderate ([facility]) 09/06/2022 Complication of intrauterine device (IUD) ([facility]) 09/06/2022 Inattention 09/06/2022 Irregular menses 09/06/2022 Irritable bowel syndrome with diarrhea 09/06/2022 Menstrual cramp 09/06/2022 Pain in pelvis 09/06/2022 Generalized anxiety disorder ([facility]) 09/06/2022 Post-traumatic stress disorder ([facility]) 09/06/2022 Slow transit constipation 09/06/2022 Anxiety during 03/26/2020 Depression affecting ([facility]) 03/26/2020 History of chlamydia 03/26/2020 Bacterial infection due to mycoplasma 02/15/2024 Vaginal odor 02/15/2024 Urinary tract infection without hematuria 02/15/2024 Bacterial vaginosis 02/15/2024 Resolved Ambulatory Problems Diagnosis Date Noted No Resolved Ambulatory Problems Past Medical History: Diagnosis Date ADHD (attention deficit hyperactivity disorder) ([facility]) Bipolar disorder (manic depression) ([facility]) BMI 24.0-24.9, adult Chicken pox 2007 Headache IBS (irritable bowel syndrome) Intrauterine device surveillance Pelvic pain Urinary tract infection HISTORY PAST MEDICAL HISTORY SOCIAL HISTORY Past Medical History: Diagnosis Date ADHD (attention deficit hyperactivity disorder) ([facility]) Adjustment disorder with mixed anxiety and depressed mood ([facility]) Amenorrhea Anxiety Bipolar disorder (manic depression) ([facility]) BMI 24.0-24.9, adult Chicken pox 2007 Complication of intrauterine device (IUD) ([facility]) Headache IBS (irritable bowel syndrome) IBS [...] SMEAR 05/21/2021 negative WISDOM TOOTH EXTRACTION 2015 [place] teeth REVIEW OF SYSTEMS Review of Systems: [...] nursing note reviewed. Exam conducted with a supervisor drilling and shooting present. Vitals: Estimated body mass index is [...] reviewed, and patient is to proceed to [facility] OR. Pt has vaginal discharge and recurrent bv- rx for xaciato and metrogel faxed to pharmacy. Follow Up: Patient is to follow up between 1-2 weeks post operative to assess proper healing and recovery from procedure. Documented by Ana Mcintosh LPN on behalf of: Jose Pan DO documented in this encounter [facility] 02-15-2024 History of Presen t illness Narrative [...] (CMS/HCC) 09/06/2022 Complication of intrauterine device (IUD) ([facility]) 09/06/2022 Inattention 09/06/2022 Irregular menses 09/06/2022 Irritable bowel syndrome with diarrhea 09/06/2022 Menstrual cramp 09/06/2022 Pain in pelvis 09/06/2022 Generalized anxiety disorder ([facility]) 09/06/2022 Post-traumatic stress disorder ([facility]) 09/06/2022 Slow transit constipation 09/06/2022 Anxiety during 03/26/2020 Depression affecting ([facility]) 03/26/2020 History of chlamydia 03/26/2020 Resolved Ambulatory Problems Diagnosis Date Noted No Resolved Ambulatory Problems Past Medical History: Diagnosis Date ADHD (attention deficit hyperactivity disorder) ([facility]) Bipolar disorder (manic depression) ([facility]) BMI 24.0-24.9, adult Chicken pox 2007 Headache IBS (irritable bowel syndrome) Intrauterine device surveillance Pelvic pain Urinary tract infection HISTORY PAST MEDICAL HISTORY SOCIAL HISTORY Past Medical History: Diagnosis Date ADHD (attention deficit hyperactivity disorder) ([facility]) Adjustment disorder with mixed anxiety and depressed mood ([facility] [facility] [place] [facility] Amenorrhea Anxiety Bipolar disorder (manic depression) ([facility]) BMI 24.0-24.9, adult Chicken pox 2007 Complication of intrauterine device (IUD) ([facility]) Headache IBS (irritable bowel syndrome) IBS [...] SMEAR 05/21/2021 negative WISDOM TOOTH EXTRACTION 2015 [place] teeth REVIEW OF SYSTEMS Review of Systems: [...] nursing note reviewed. Exam conducted with a supervisor drilling and shooting present. Vitals: Estimated body mass index is [...] a referral to Urology. Patient aware that [employer] Estate [employer] will reach out to her to sent up surgery date for Dx Lap as well. Patient aware of referral process. Documented by Estela Phipps LPN on behalf of: Jose Pan DO documented in this encounter [facility] 01-27-2024 History of Presen t illness Narrative [...] disorder with mixed anxiety and depressed mood ([facility]) 09/06/2022 Amenorrhea 09/06/2022 Anxiety 09/06/2022 Bipolar affective disorder, currently depressed, moderate ([facility]) 09/06/2022 Complication of intrauterine device (IUD) ([facility]) 09/06/2022 Inattention 09/06/2022 Irregular menses 09/06/2022 Irritable bowel syndrome with diarrhea 09/06/2022 Menstrual cramp 09/06/2022 Pain in pelvis 09/06/2022 Generalized anxiety disorder ([facility]) 09/06/2022 Post-traumatic stress disorder ([facility]) 09/06/2022 Slow transit constipation 09/06/2022 Anxiety during 03/26/2020 Depression affecting ([facility]) 03/26/2020 History of chlamydia 03/26/2020 Resolved Ambulatory Problems Diagnosis Date Noted No Resolved Ambulatory Problems Past Medical History: Diagnosis Date ADHD (attention deficit hyperactivity disorder) (CMS/HCC) Bipolar disorder (manic depression) ([facility]) BMI 24.0-24.9, adult Chicken pox 2007 Headache IBS (irritable bowel syndrome) Intrauterine device surveillance Pelvic pain Urinary tract infection HISTORY PAST MEDICAL HISTORY SOCIAL HISTORY Past Medical History: Diagnosis Date ADHD (attention deficit hyperactivity disorder) ([facility]) Adjustment disorder with mixed anxiety and depressed mood ([facility]) Amenorrhea Anxiety Bipolar disorder (manic depression) (CMS/HCC) BMI 24.0-24.9, adult Chicken pox 2008 Complication of intrauterine device (IUD) ([facility]) Headache IBS (irritable bowel syndrome) IBS with [...] SMEAR 05/21/2021 negative WISDOM TOOTH EXTRACTION 2015 [place] teeth REVIEW OF SYSTEMS Review of Systems: [...] nursing note reviewed. Exam conducted with a supervisor drilling and shooting present. Vitals: Estimated body mass index is 22.08 kg/m as calculated from the following: Height as of 24: 5' 7 . Weight as of this [...] of: ALISA Coyle documented in this encounter [facility] 01-11-2024 History of Presen t illness Narrative [...] disorder with mixed anxiety and depressed mood ([facility]) 09/06/2022 Amenorrhea 09/06/2022 Anxiety 09/06/2022 Bipolar affective disorder, currently depressed, moderate ([facility]) 09/06/2022 Complication of intrauterine device (IUD) ([facility]) 09/06/2022 Inattention 09/06/2022 Irregular menses 09/06/2022 Irritable bowel syndrome with diarrhea 09/06/2022 Menstrual cramp 09/06/2022 Pain in pelvis 09/06/2022 Generalized anxiety disorder ([facility]) 09/06/2022 Post-traumatic stress disorder ([facility]) 09/06/2022 Slow transit constipation 09/06/2022 Anxiety during 03/26/2020 Depression affecting ([facility]) 03/26/2020 History of chlamydia 03/26/2020 Resolved Ambulatory Problems Diagnosis Date Noted No Resolved Ambulatory Problems Past Medical History: Diagnosis Date ADHD (attention deficit hyperactivity disorder) ([facility]) Bipolar disorder (manic depression) ([facility]) BMI 24.0-24.9, adult Chicken pox 2008 Headache IBS (irritable bowel syndrome) Intrauterine device surveillance Pelvic pain Urinary tract infection HISTORY PAST MEDICAL HISTORY SOCIAL HISTORY Past Medical History: Diagnosis Date ADHD (attention deficit hyperactivity disorder) ([facility]) Adjustment disorder with mixed anxiety and depressed mood ([facility]) Amenorrhea Anxiety Bipolar disorder (manic depression) ([facility]) BMI 24.0-24.9, adult Chicken pox 2008 Complication of intrauterine device (IUD) ([facility]) Headache IBS (irritable bowel syndrome) IBS with [...] SMEAR 05/21/2021 negative WISDOM TOOTH EXTRACTION 2015 [place] teeth REVIEW OF SYSTEMS Review of Systems: [...] nursing note reviewed. Exam conducted with a supervisor drilling and shooting present. Vitals: Estimated body mass index is 22.42 kg/m as calculated from the following: Height as of 24: 5' 7 . Weight as of this [...] Jose Pan DO documented in this encounter [facility] Evaluation + Plan note No data available for this section [facility] [employer] Evaluation note Diagnosis Ureteral stone with hydronephrosis Calculus of ureter Suprapubic pain Abdominal pain, other specified site Dysuria Urgency of urination documented in this encounter [employer] Phone: evaluation note* Diagnosis Ureteral stone with hydronephrosis Calculus of ureter documented in this encounter [employer] Phone: evaluation note* Diagnosis Ureteral stone with hydronephrosis Calculus of ureter Suprapubic pain Abdominal pain, other specified site Dysuria Urgency of urination documented in this encounter [employer] Phone: evaluation note* Diagnosis Well woman exam with routine gynecological exam Routine gynecological examination [facility] Diagnosis Bacterial vaginosis Unspecified vaginitis and vulvovaginitis Urinary tract infection without hematuria, site unspecified Vaginal odor Unspecified symptom associated with female genital organs Bacterial infection due to mycoplasma [facility] Diagnosis Pre-op evaluation Pelvic pain in female Unspecified symptom associated with female genital organs Bacterial vaginosis Unspecified vaginitis and vulvovaginitis documented in this encounter [facility]* Diagnosis Pelvic pain in female Unspecified symptom associated with female genital organs [facility]* Diagnosis Postoperative examination Follow-up examination, following unspecified surgery [facility]* Diagnosis Vaginal discharge Leukorrhea, not specified as infective Vaginal burning Other specified symptom associated with female genital organs documented in this encounter [facility]* Diagnosis Encounter for removal of sutures- Primary Cellulitis of finger of right hand documented in this encounter [facility]* Diagnosis Mass of lower outer quadrant of left breast- Primary [facility]* Diagnosis Missed menses , unspecified gestational age Encounter for supervision of normal first in first trimester [facility]* Diagnosis First trimester state, incidental 12 weeks gestation of Urinary tract infection in mother during , antepartum [facility]* Diagnosis Second trimester ([facility]) state, incidental 14 weeks gestation of ([facility]) Screen for STD (sexually transmitted disease) Screening examination for venereal disease documented [facility]* Diagnosis Second trimester ([facility]) state, incidental 16 weeks gestation of ([facility]) Screening, , for anatomic survey ([facility]) Encounter for anatomic survey [facility] Diagnosis Screening, , for anatomic survey ([facility])- Primary Encounter for anatomic survey Second trimester ([facility]) state, incidental 20 weeks gestation of ([facility]) documented [facility]* Diagnosis Acne, unspecified acne type- Primary Second trimester ([facility]) state, incidental 24 weeks gestation of ([facility]) Diabetes mellitus screening Screening for diabetes mellitus Screening, , for anatomic survey ([facility]) Encounter for anatomic survey [facility] No data available for this section [facility] progress note No data available for this section [facility] Advance Directives No Advanced Directives Records FoundDocuments on File Type Date Recorded Patient Tooling Manager Expl anation ACP-Advance Directive ACP-Power of Agricultural Production Engineer Latest Code Status on File Code Status Date Activated Date Inactivated Comments Full Code 03/28/2014 9:49 AM 03/28/2014 5:17 PM Documents on File Type Date Recorded Patient Tooling Manager Expl anation ACP-Advance Directive ACP-Power of Agricultural Production Engineer Latest Code Status on File Code Status Date Activated Date Inactivated Comments Full Code 03/28/2014 9:49 AM 03/28/2014 5:17 PM Reason for Referral Specialty Diagnoses / Procedures Referred By Wilman coker Referred To Contact Radiology Diagnoses Ureteral stone with hydronephrosis Suprapubic pain Dysuria Urgency of urination Procedures US RENAL COMPLETE Jason Fabian, DOOR REPAIRER BUS - SHUTTLE THREADER [address] [facility] [address] [place] [address] Referral ID Status Reason Start Date Expiration Date Visits Re quested Visits Authorized [id number] Closed 06/12/2021 06/12/2022 1 1 Summary Purpose [...] Care Teams (unrecognized sec tion and content) Private Branch Exchange Operator Relationship Specialty Start Date End Date Sri Ramírez MD [address] [place], [place] [id number] PCP - General 07/20/13 Private Branch Exchange Operator Relationship Specialty Start Date End Date Sri Ramírez MD [address] [place] [id number] PCP - General 07/20/13 Private Branch Exchange Operator Relationship Specialty Start Date End Date Sri Ramírez MD [address] [facility] [place] [address] PCP - General 07/20/13 Private Branch Exchange Operator Relationship Specialty Start Date End Date Sri Ramírez MD [address] [facility] [place] [address] PCP - General 07/20/13 Private Branch Exchange Operator Relationship Specialty Start Date End Date Sri Ramírez MD [address] [facility] [place] [address] PCP - General Family Medicine 09/19/22 Daisy Hurst, DOOR REPAIRER BUS-DIRECTOR MEDICAL [address] [facility] [address] [place] [address] PCP - [place] [employer] 09/12/23 Kayla Kahn DO [address] [place] [address] Referring Physician 09/19/22 Private Branch Exchange Operator Relationship Specialty Start Date End Date Sri Ramírez MD [address] [facility] [place] [address] PCP - General Family Medicine 09/19/22 Daisy Hurts, DOOR REPAIRER BUS-DIRECTOR MEDICAL [address] [facility] [address] [place] [address] PCP - [place] [employer] 09/12/23 Kayla Kahn DO [address] [place] [address] Referring Physician 09/19/22 Private Branch Exchange Operator Relationship Specialty Start Date End Date Sri Ramírez MD [address] [place] [address] PCP - General Family Medicine 09/19/22 Daisy Hurst, DOOR REPAIRER BUS-DIRECTOR MEDICAL [address] [facility] [address] [place] [address] PCP - [place] [employer] 09/12/23 Kayla Kahn DO [address] [place] [address] Referring Physician 09/19/22 Private Branch Exchange Operator Relationship Specialty Start Date End Date Sri Ramírez MD [address] [place] [address] PCP - General [facility] Medicine 09/19/22 Daisy Hurst, DOOR REPAIRER BUS-DIRECTOR MEDICAL [address] [facility] [address] [place] [address] PCP - [place] [employer] 09/12/23 Kayla Kahn DO [address] [place] [address] Referring Physician 09/19/22 Private Branch Exchange Operator Relationship Specialty Start Date End Date Sri Ramírez MD [address] [place] [address] PCP - General [facility] Medicine 09/19/22 Daisy Hurst, DOOR REPAIRER BUS-DIRECTOR MEDICAL [address] [facility] [address] [place] [address] PCP - [place] [employer] 09/12/23 Kayla Kahn DO [address] [facility] [place] [address] Referring Physician 09/19/22 Private Branch Exchange Operator Relationship Specialty Start Date End Date Sri Ramírez MD [address] [place] [address] PCP - General Family Medicine 09/19/22 Daisy Hurst, DOOR REPAIRER BUS-DIRECTOR MEDICAL [address] [facility] [address] [place] [address] PCP - [place] [employer] 09/12/23 Kayla Kahn DO [address] [place] [address] Referring Physician 09/19/22 Private Branch Exchange Operator Relationship Specialty Start Date End Date Sri Ramírez MD [address] [place] [address] PCP - General Family Medicine 09/19/22 Daisy Hurst, DOOR REPAIRER BUS-DIRECTOR MEDICAL [address] [facility] [address] [place] [address] PCP - [place] [employer] 09/12/23 Kayla Kahn DO [address] [facility] [address] [place] [address] Referring Physician 09/19/22 Private Branch Exchange Operator Relationship Specialty Start Date End Date Sri Ramírez MD [address] [place] [address] PCP - General Family Medicine 09/19/22 Daisy Hurst, DOOR REPAIRER BUS-[facility] [address] [facility] [address] [place] [address] PCP - [place] [employer] 09/12/23 Kayla Kahn DO [address] [place] [address] Referring Physician 09/19/22 Private Branch Exchange Operator Relationship Specialty Start Date End Date Sri Ramírez MD [address] [place] [address] PCP - General Family Medicine 09/19/22 Daisy Hurst, [facility] [address] [facility] [address] [place] [address] PCP - [place] [employer] 09/12/23 Kayla Kahn DO [address] [place] [address] Referring Physician 09/19/22 Private Branch Exchange Operator Relationship Specialty Start Date End Date Sri Ramírez MD [address] [place] [address] PCP - General Family Medicine 09/19/22 Daisy Hurst, [facility] [address] [facility] [address] [place] [address] PCP - [place] [employer] 09/12/23 Kayla Kahn DO [address] [place] [address] Referring Physician 09/19/22 Private Branch Exchange Operator Relationship Specialty Start Date End Date Sri Ramírez MD [address] [place] [address] PCP - General Family Medicine 09/19/22 Daisy Hurst, DOOR REPAIRER BUS-DIRECTOR MEDICAL 112 [facility] [address] [place] [address] PCP - [place] [employer] 09/12/23 Kayla Kahn DO [address] [place] [address] Referring Physician 09/19/22 Private Branch Exchange Operator Relationship Specialty Start Date End Date Sri Ramírez MD [address] [place] [address] PCP - General Family Medicine 09/19/22 Daisy Hurst, DOOR REPAIRER BUS-DIRECTOR MEDICAL [address] [address] PCP - [place] [employer] 09/12/23 Kayla Kahn DO [address] [facility] [place] [address] Referring Physician 09/19/22 Private Branch Exchange Operator Relationship Specialty Start Date End Date Sri Ramírez MD [address] [place] [address] PCP - General Family Medicine 09/19/22 Daisy Hurst, DOOR REPAIRER BUS-DIRECTOR MEDICAL [address] [address] PCP - [place] [employer] 09/12/23 Kayla Kahn DO [address] [place] [address] Referring Physician 09/19/22 Private Branch Exchange Operator Relationship Specialty Start Date End Date Sri Ramírez MD [address] [place] [address] PCP - General Family Medicine 09/19/22 Daisy Hurst, DOOR REPAIRER BUS-DIRECTOR MEDICAL 112 [facility] [address] [place] [address] PCP - [place] [employer] 09/12/23 Kayla Kahn DO [address] [place] [address] Referring Physician 09/19/22 Private Branch Exchange Operator Relationship Specialty Start Date End Date Sri Ramírez MD [address] [place] [address] PCP - General Family Medicine 09/19/22 Daisy Hurst, DOOR REPAIRER BUS-DIRECTOR MEDICAL [address] [address] PCP - [place] [employer] 09/12/23 Kayla Kahn DO [address] [place] [address] Referring Physician 09/19/22 Private Branch Exchange Operator Relationship Specialty Start Date End Date Sri Ramírez MD [address] [place] [address] PCP - General Family Medicine 09/19/22 Daisy Hurst, DOOR REPAIRER BUS-DIRECTOR MEDICAL 112 [facility] [address] [place] [address] PCP - [place] [employer] 09/12/23 Kayla Kahn DO [address] [place] [address] Referring Physician 09/19/22 Private Branch Exchange Operator Relationship Specialty Start Date End Date Sri Ramírez MD [address] [place] [address] PCP - General Family Medicine 09/19/22 Kayla Kahn DO [address] [facility] [place] [address] Referring Physician 09/19/22 Private Branch Exchange Operator Relationship Specialty Start Date End Date Sri Ramírez MD [address] [facility] [place] [address] PCP - General Family Medicine 09/19/22 Kayla Kahn DO [address] [facility] [place] [address] Referring Physician 09/19/22 Private Branch Exchange Operator Relationship Specialty Start Date End Date Sri Ramírez MD [address] [facility] [place] [address] PCP - General Family Medicine 09/19/22 Kayla Kahn DO [address] [facility] [place] [address] Referring Physician 09/19/22 Private Branch Exchange Operator Relationship Specialty Start Date End Date Sri Ramírez MD [address] [facility] [place] [address] PCP - General Family Medicine 09/19/22 Kayla Kahn DO [address] [facility] [place] [address] Referring Physician 09/19/22 Private Branch Exchange Operator Relationship Specialty Start Date End Date Sri Ramírez MD [address] [facility] [place] [address] PCP - General Family Medicine 09/19/22 Kayla Kahn DO [address] [facility] [place] [address] Referring Physician 09/19/22 Private Branch Exchange Operator Relationship Specialty Start Date End Date Sri Ramírez MD [address] [facility] [place] [address] PCP - General Family Medicine 09/19/22 Kayla Kahn DO [address] [facility] [place] [address] Referring Physician 09/19/22 Private Branch Exchange Operator Relationship Specialty Start Date End Date Sri Ramírez MD [address] [facility] [place] [address] PCP - General Family Medicine 09/19/22 Kayla Kahn DO [address] [facility] [place] [address] Referring Physician 09/19/22 Private Branch Exchange Operator Relationship Specialty Start Date End Date Sri Ramírez MD [address] [facility] [place] [address] PCP - General Family Medicine 09/19/22 Kayla Kahn DO [address] [place] [address] Referring Physician 09/19/22 Reason for Visit (unrecogniz ed section and content) Specialty Diagnoses / Procedures Referred By Wilman coker Referred To Contact Radiology Diagnoses Ureteral stone with hydronephrosis Suprapubic pain Dysuria Urgency of urination Procedures US RENAL COMPLETE Jason Fabian, DOOR REPAIRER BUS - SHUTTLE THREADER [address] [facility] [address] [place] [address] Referral ID Status Reason Start Date Expiration Date Visits Re quested Visits Authorized [id number] Closed 06/12/2021 06/12/2022 1 1 Reason Comments [...] Annual Exam Breast Mass Reason Comments Amenorrhea Reason Comments Routine Visit INFORMATION SOURCE (unrecogn ized section and content) DATE CREATED AUTHOR 06/23/2021 [facility] [address] [facility] DATE CREATED AUTHOR AUTHOR'S ORGANIZ ATION 05/20/2022 [facility] DATE CREATED AUTHOR AUTHOR'S ORGANIZ ATION 09/25/2023 [facility] DATE CREATED AUTHOR AUTHOR'S ORGANIZ ATION 03/27/[address] [facility] DATE CREATED AUTHOR AUTHOR'S ORGANIZ ATION 04/13/[address] [facility] DATE CREATED AUTHOR AUTHOR'S ORGANIZ ATION 08/02/[address] [facility] DATE CREATED AUTHOR AUTHOR'S ORGANIZ ATION 12/06/2024 [facility] dical Specialists EPIC FOR RECORDS PERTAINING TO PATIENTS [...] BE BASED ON THE PRIMARY CLINICAL RECORDS. [facility]. provides no warranty or guarantee of the accuracy or completeness of information in this document.
--- OUTSIDE RECORDS SUMMARY | 2024-12-10 09:07 | XMS_ITS | Encounter Summary ---
Author Organization [facility] Address [address] [place] [address] Care Team Providers Care Career Professional Name Role Phone Sri Ramírez MD Primary Care Provider [phone] Kayla Kahn DO Unavailable [phone] Daisy Hurst SURGICAL SERVICES MANAGER-CROP PRODUCTION ADVISOR Unavailable Encounter Details Date Type Department Care Team (Late st Contact Info) Description 04/01/2024 Abstract [facility] [address] [address] Jose Pan DO [address], [facility] Social History Tobacco Use Types Packs/Day Years [...] week 09/24/2023 How often do you attend [facility] or worship services? Patient declined 09/24/2023 Do you belong [...] Recorded Patient Health Questionnaire-2 Score 0 11/16/2023 [facility] of Occupat ional [facility] - Occupational Stress Questionnaire Answer Date [...] health care facility (including now)? No 09/24/2023 Comments Unknown Sex and Gender Information Value Date Recorded Sex Assigned at Not on file Legal Sex Female 6:40 PM EDT Gender Identity Not on file Sexual Orientation Not on file documented as of this encounter Plan of Treatment Upcoming Encounters Date Type Department Care Team (Late st Contact Info) Description 12/28/2024 1:20 PM EDT Routine [facility] [address] [place] [phone] Jose Pan DO [address] [place] [address] documented as of this encounter Visit Diagnoses Not on filedocumented in this encounter Care Teams Career Professional Relationship Specialty Start Date End Date Sri Ramírez MD [facility] [place] [address] PCP - General Family Medicine 09/19/22 Daisy Hurst APRN-CROP PRODUCTION ADVISOR [address] [facility] [address] [place] [address] PCP - [place] [employer] 09/12/23 Kayla Kahn DO [address] [place] [address] Referring Physician 09/19/22 documented as of this encounter
[2024-12-10 10:41] LABS: Hematocrit 38.5 % (36.0-48.0); Hemoglobin 12.9 g/dL (12.0-16.0); Immature Granulocytes Abs Auto 0.15 10^3/uL (0.00-0.03); Immature Granulocytes Pct Auto 1.3 % (0.0-0.5); Lymphocytes Absolute Auto 1.4 10^3/uL (1.2-3.8); Mean Corpuscular HGB Conc 33.5 g/dL (29.9-35.2); Mean Corpuscular Hemoglobin 31.2 pg (26.7-34.0); Mean Corpuscular Volume 93.0 fL (81.0-99.0); Platelet Count 237 10^3/uL (150-450); Red Blood Count 4.14 10^6/uL (4.20-5.40); White Blood Count 11.6 10^3/uL (4.0-11.0)
[2024-12-10 11:21] LABS: Glucose 1 Hour 124 mg/dL (<130)
== END 2024-12-10 09:05 | disposition home or self-care (01) ==
LOC: LAB 09:04
PROVIDERS: PCP Family Medicine; Visit Provider Obstetrics & Gynecology
DX: Z13.1 Encounter for screening for diabetes mellitus (principal)
CPT/HCPCS: 36415; 82950; 85025

== ENCOUNTER 2025-02-01 13:33 | Outpatient (OUT) | payer BC, SELFPAY ==
--- OUTSIDE RECORDS SUMMARY | 2025-01-09 10:10 | XMS_ITS | Encounter Summary ---
Author Organization [facility] Address [address] [place] [address] Care Team Providers Care Program Research Specialist Name Role Phone Sri Ramírez MD Primary Care Provider [phone] Kayla Kahn DO Unavailable [phone] Reason for Visit * ReasonCommentsRoutine Visit Encounter Details DateTypeDepartmentCare Team (Latest Contact Info)Kfkwbgjnfah29/29/2025 10:10 AM EDTRoutine [facility] [address] [place] [address] Padmini Gunter, V[place] [address] [place] [address] Third [facility] ([facility]); 29 weeks gestation of ([facility]); Choroid plexus cyst Social History Tobacco UseTypesPacks/DayYears UsedDateSmoking Tobacco: FormerCigarettes0.55 Smokeless Tobacco: NeverAlcohol UseStandard Drinks/WeekCommentsNever0 (1 standard drink = 0.6 oz pure alcohol)caffeine: 1-2 cups coffee or energy drink [id number] Health LiteracyAnswerDate RecordedHow often do you need to have someone help you when you read instructions, pamphlets, or other written material from your doctor or pharmacy?Never09/24/2023Social Connection and Isolation PanelAnswerDate RecordedIn a typical week, how many times do you talk on the phone with family, friends, or neighbors?More than three times a week 09/24/2023How often do you get together with friends or relatives?Twice a week 09/24/2023How often do you attend muslim or mormonism services?Patient declined 09/24/2023o you belong to any clubs or organizations such as muslim groups, unions, fraternal or athletic groups, or school groups?No09/24/2023How often do you attend meetings of the clubs or organizations you belong to?Never09/24/2023 Are you , , , , never , or living with a partner?Patient xuxffbwg92/13/2024UDIT-CAnswerDate RecordedQ1: How often do you have a drink containing alcohol?Never09/24/2023Q2: How many drinks containing alcohol do you have on a typical day when you are drinking?Patient does not drink09/24/2023Q3: How often do you have six or more drinks on one occasion? Never09/24/2023Overall Financial Resource Strain (CARDIA)AnswerDate RecordedHow hard is it for you to pay for the very basics like food, housing, medical care, and heating?Not hard at all09/24/2023HQ-2AnswerDate RecordedPatient Health Questionnaire-2 [id number] of Occupational Health - Occupational Stress QuestionnaireAnswerDate RecordedDo you feel stress - tense, restless, nervous, or anxious, or unable to sleep at night because yourmind is troubled all the time - these days?Rather much09/24/2023Exercise Vital Sign AnswerDate RecordedOn average, how many days per week do you engage in moderate to strenuous exercise (like a brisk walk)?3 days09/24/2023On average, how many minutes do you engage in exercise at this level?60 min09/24/2023Hunger Vital SignAnswerDate RecordedWithin the past 12 months, you worried that your food would run out before you got the money to buymore.Never true09/24/2023Within the past 12 months, the food you bought just didn't last and you didn't have money to get more.Never true09/24/2023RAPARE - TransportationAnswerDate RecordedIn the past 12 months, has lack of transportation kept you from medical appointments or from getting medications?No09/24/2023In the past 12 months, has lack of transportation kept you from meetings, work, or from getting things needed for daily living?No09/24/2023Housing Stability Vital SignAnswerDate RecordedIn the last 12 months, was there a time when you were not able to pay the mortgage or rent on time?No09/24/2023In the past 12 months, how many times have you moved where you were living?t any time in the past 12 months, were you homeless or living in a half-way (including now)?No09/24/2023 Estimated Date of EadcearfFptebetcWos22/14/2025ased on last menstrual period of 06/19/2024Sex and Gender InformationValueDate RecordedSex Assigned at BirthNot on fileLegal NahAmbowd70/15/2023 6:40 PM EDTGender IdentityNot on file Sexual OrientationNot on filedocumented as of this encounter Last Filed Vital Signs Vital SignReadingTime TakenCommentsBlood Uonjuutc257/7209 10:17 AM EDT Pulse--Temperature--Respiratory Rate--Oxygen Saturation--Inhaled Oxygen Concentration--Kxekuu40.1 kg (170 lb)01/09/2025 10:17 AM EDTHeight--Body Mass Index26.6304 8:15 AM EDTdocumented in this encounter Progress Notes * Padmini Gunter NP - 01/09/2025 10:10 AM EDT Reason for Appointment: Patient ID: Sarah Belcher is a 29 y.o. female who presents for Routine Visit Patient presents today for Return OB appointment. MEDICATIONS Current Outpatient Medications Medication Instructions azelaic acid (Finacea) 15 % gel 1 application , Topical, 2 times daily co-enzyme Q-10 30 mg, Daily Multiple Vitamin [...] 09/06/2022 Bipolar affective disorder, currently depressed, moderate ([facility]) 09/06/2022 Complication of intrauterine device (IUD) 09/06/2022 Inattention 09/06/2022 Irregular menses 09/06/2022 Irritable bowel syndrome with diarrhea 09/06/2022 Menstrual cramp 09/06/2022 Pain in pelvis 09/06/2022 Generalized anxiety disorder 09/06/2022 Post-traumatic stress disorder 09/06/2022 Slow transit constipation 09/06/2022 Anxiety during ([facility]) 03/26/2020 Depression affecting ([facility]) 03/26/2020 History of chlamydia 03/26/2020 Bacterial infection due to mycoplasma 02/15/2024 Vaginal odor 02/15/2024 Urinary tract infection without hematuria 02/15/2024 Bacterial vaginosis 02/15/2024 Bladder pain 07/18/2024 Calculus of kidney 07/25/2013 Gross hematuria 07/18/2024 Resolved Ambulatory Problems Diagnosis Date Noted No Resolved Ambulatory Problems Past Medical History: Diagnosis Date ADHD (attention deficit hyperactivity disorder) Bipolar disorder (manic depression) ([facility]) BMI 24.0-24.9, adult Chicken pox 2007 Headache IBS (irritable bowel syndrome) Intrauterine device surveillance Pelvic pain Urinary tract infection HISTORY PAST MEDICAL HISTORY SOCIAL HISTORY Past Medical History: Diagnosis Date ADHD (attention deficit hyperactivity disorder) Adjustment disorder with mixed anxiety and depressed mood Amenorrhea Anxiety Bipolar disorder (manic depression) ([facility]) BMI 24.0-24.9, adult [...] SMEAR 05/21/2021 negative WISDOM TOOTH EXTRACTION 2015 [place] REVIEW OF SYSTEMS Review of Systems: [...] nursing note reviewed. Exam conducted with a permastone installer present. Vitals: Estimated body mass index is 26.31 kg/m?? as calculated from the following: Height as of 07/18/24: 5' 7 . Weight as of 12/28/24: 168 lb. BP: Patient's last menstrual period was 06/19/2024. ASSESSMENT & PLAN ICD-10-CM 1. Third trimester ([facility]) Z34.93 POCT urinalysis dipstick manually resulted 2. 29 weeks gestation of ([facility]) Z3A.29 3. Choroid plexus cyst G93.0 US OB limited 1+ fetuses Return OB: Patient presents today for a routine obstetrics appointment. Patient is currently 29w1d . Patient states she is doing well but has complaints of being tired due to current . Patient has verbalizes frequent movement. labor precautions was discussed/given and patient was instructed to perform kick counts three times a day. A repeat US for Choroid cysts given to patient to obtain. Orders Placed This Encounter Procedures US OB limited 1+ fetuses POCT urinalysis dipstick manually resulted Follow Up: Patient is to return to office in 3-4 week for routine OB appointment. Documented by Shruthi Vaz MA on behalf of: Padmini Gunter NP documented in this encounter Miscellaneous Notes * Addendum Note - Shruthi Vaz MA - 01/09/2025 10:10 AM EDTAddended by: SHRUTHI VAZ on: 01/23/2025 11:46 AM Modules accepted: Orders documented in this encounter Plan of Treatment DateTypeDepartmentCare Team (Latest Contact Info)Yspeczxxfga11/28/2025 10:20 AM EDTRoutine [facility] [address] [place] [address] Jose Pan DO [address] [place] [address] documented as of this encounter Procedures Procedure NamePriorityDate/TimeAssociated DiagnosisCommentsPOCT URINALYSIS YMEKEQGZEdzakdu51/29/2025 10:19 AM EDT Third trimester ([facility]) documented in this encounter Results * POCT urinalysis dipstick manually resulted (01/09/2025 10:19 AM EDT)Component ValueRef RangeTest MethodAnalysis TimePerformed AtPathologist SignatureColor, UAYellowClarity, UAClearGlucose, UANegativeNegative - 2000(110) ++++ mg/dL Bilirubin, UANegativeNegative - 4(70) +++ mg/dLKetones, UANegativeNegative - 160(16) ++++ mg/dLSpec Grav, UA1.0101 - 1.03Blood, UANegativeNegative - 50 Allen/mcLpH, UA7.05 - 9Protein, UANegativeNegative - 2000(20) ++++ mg/dL Urobilinogen, UA1.00.2 - 12 mg/dLLeukocytes, UANegativeNegative - 500+++ Andrei/mcLNitrite, UANegativeNegative - PositiveSpecimen (Source)Anatomical Location / LateralityCollection Method / VolumeCollection TimeReceived Time Urine01/09/2025 10:19 AM EDT Narrative Authorizing ProviderResult TypeResult StatusPadmini Gunter NPPOINT OF CARE TEST ENTER/EDIT ORDERABLESFinal Result documented in this encounter Visit Diagnoses Diagnosis Third trimester ([facility]) state, incidental 29 weeks gestation of ([facility]) Choroid plexus cyst Cerebral cysts documented in this encounter Care Teams Team MemberRelationshipSpecialtyStart DateEnd Date Sri Ramírez MD [address] [place] [address] PCP - GeneralFamily Medicine09/19/22 Kayla Kahn DO [address] [place] [address] Referring Physician09/19/22documented as of this encounter
--- OUTSIDE RECORDS SUMMARY | 2025-01-24 09:30 | XMS_ITS | Encounter Summary ---
Author Organization [facility] Address [address] [place] [address] Care Team Providers Care Legal Document Assistant Name Role Phone Sri Ramírez MD Primary Care Provider [phone] Kayla Kahn DO Unavailable [phone] Encounter Details DateTypeDepartmentCare Team (Latest Contact Info)Aqlwitlazef33/14/2025 9:30 AM EDTAncillary Procedure [facility] [address] [place] [address] [place] [address] Encounter for ultrasound recheck of choroid plexus cyst, antepartum ([facility]) Social History Tobacco UseTypesPacks/DayYears UsedDateSmoking Tobacco: FormerCigarettes0.55 Smokeless Tobacco: NeverAlcohol UseStandard Drinks/WeekCommentsNever0 (1 standard drink = 0.6 oz pure alcohol)caffeine: 1-2 cups coffee or energy drink [id number] Health LiteracyAnswerDate RecordedHow often do you need [...] a week 09/24/2023How often do you attend nondenominational or confucianism services?Patient declined 09/24/2023o you belong to any clubs or organizations such as nondenominational groups, unions, fraternal or athletic groups, or school groups?No09/24/2023How often do you attend meetings of the clubs or organizations you belong to?Never09/24/2023 Are you , , , , never , or living with a partner?Patient lgwtwmfo03/13/2024UDIT-CAnswerDate RecordedQ1: How often do you have a [...] heating?Not hard at all09/24/2023HQ-2AnswerDate RecordedPatient Health Questionnaire-2 Jkwwa352[facility] [place] of Occupational Health - Occupational Stress QuestionnaireAnswerDate [...] were you homeless or living in a longterm (including now)?No09/24/2023 Estimated Date of SozafmngNimwkuopHql22/14/2025ased on last menstrual period of 06/19/2024Sex and Gender InformationValueDate RecordedSex Assigned at BirthNot on fileLegal CjrKrkgsx90/15/2023 6:40 PM EDTGender IdentityNot on file Sexual OrientationNot on filedocumented as of this encounter Plan of Treatment DateTypeDepartmentCare Team (Latest Contact Info)Mqrlytzzpfx72/28/2025 10:20 AM EDTRoutine [facility] [address] [place] [address] Jose Pan, [address] [place] [address] documented as of this encounter Procedures Procedure NamePriorityDate/TimeAssociated DiagnosisCommentsUS OB LIMITED 1+ MHNGFZVFgvtwyv83/14/2025 10:06 AM EDT Encounter for ultrasound recheck of choroid plexus cyst, antepartum ([facility]) documented in this encounter Results * OB limited 1+ fetuses (01/24/2025 10:06 AM [...] Díaz MD Authorizing ProviderResult TypeResult StatusCorey Maxim DOIMG OB US PROCEDURES Final Result documented in this encounter Visit Diagnoses Diagnosis Encounter for ultrasound recheck of choroid plexus cyst, antepartum ([facility]) documented in this encounter Care Teams Team MemberRelationshipSpecialtyStart DateEnd Date Sri Ramírez MD [address] [facility] [place] [address] PCP - GeneralFamily Medicine09/19/22 Kayla Kahn DO [address] [place] [address] Referring Physician09/19/22documented as of this encounter
--- OUTSIDE RECORDS SUMMARY | 2025-01-24 10:00 | XMS_ITS | Encounter Summary ---
Author Organization [facility] Address [address] [place] [address] Care Team Providers Care Plant Operations Engineer Name Role Phone Sri Ramírez MD Primary Care Provider [phone] Kayla Kahn DO Unavailable [phone] Reason for Visit * ReasonCommentsRoutine Visit Encounter Details DateTypeDepartmentCare Team (Latest Contact Info)Gjcfjdnfcfv28/14/2025 10:00 AM EDTRoutine [facility] [address] [place] [place] [address] Jose Pan DO [address] [place] [address] Encounter for ultrasound recheck of choroid plexus cyst, antepartum ([facility]); Third trimester ([facility]); 31 weeks gestation of ([facility]); size inconsistent with dates ([facility] Social History Tobacco UseTypesPacks/DayYears UsedDateSmoking Tobacco: FormerCigarettes0.55 Smokeless Tobacco: NeverAlcohol UseStandard Drinks/WeekCommentsNever0 (1 standard drink = 0.6 oz pure alcohol)caffeine: 1-2 cups coffee or energy drink [id number] Health LiteracyAnswerDate RecordedHow often do you need [...] a week 09/24/2023How often do you attend zoroastrian or adventist services?Patient declined 09/24/2023o you belong to any clubs or organizations such as zoroastrian groups, unions, fraternal or athletic groups, or school groups?No09/24/2023How often do you attend meetings of the clubs or organizations you belong to?Never09/24/2023 Are you , , , , never , or living with a partner?Patient edzrmewf64/13/2024UDIT-CAnswerDate RecordedQ1: How often do you have a [...] heating?Not hard at all09/24/2023HQ-2AnswerDate RecordedPatient Health Questionnaire-2 Jzxbo742F[facility] [place] of Occupational Health - Occupational Stress QuestionnaireAnswerDate [...] were you homeless or living in a group home (including now)?No09/24/2023 Estimated Date of FjrhnlejLvudigaxSac55/14/2025ased on last menstrual period of 06/19/2024Sex and Gender InformationValueDate RecordedSex Assigned at BirthNot on fileLegal LrtVlzrji60/15/2023 6:40 PM EDTGender IdentityNot on file Sexual OrientationNot on filedocumented as of this encounter Last Filed Vital Signs Vital SignReadingTime TakenCommentsBlood Fqiugkbm760/7201/24/2025 10:15 AM EDT Pulse--Temperature--Respiratory Rate--Oxygen Saturation--Inhaled Oxygen Concentration--Txqtsd69.2 kg (172 lb 6.4 oz)01/24/2025 10:15 AM EDTHeight--Body Mass Xezkq8500/07/2025 8:15 AM EDTdocumented in this encounter Progress [...] depressed, moderate ([facility]) 09/06/2022 Complication of intrauterine device (IUD) 09/06/2022 Inattention 09/06/2022 Irregular menses 09/06/2022 Irritable bowel syndrome with diarrhea 09/06/2022 Menstrual cramp 09/06/2022 Pain in pelvis 09/06/2022 Generalized anxiety disorder 09/06/2022 Post-traumatic stress disorder 09/06/2022 Slow transit constipation 09/06/2022 Anxiety during ([facility]) 03/26/2020 Depression affecting ([facility]) 03/26/2020 History of chlamydia 03/26/2020 Bacterial infection due to mycoplasma 02/15/2024 Vaginal odor 02/15/2024 Urinary tract infection without hematuria 02/15/2024 Bacterial vaginosis 02/15/2024 Bladder pain 07/18/2024 Calculus of kidney 07/25/2013 Gross hematuria 07/18/2024 Resolved Ambulatory Problems Diagnosis Date Noted No Resolved Ambulatory Problems Past Medical History: Diagnosis Date ADHD (attention deficit hyperactivity disorder) Bipolar disorder (manic depression) ([facility]) BMI 24.0-24.9, adult Chicken pox 2007 Headache [...] nursing note reviewed. Exam conducted with a fretted string instrument repairer present. Vitals: Estimated body mass index is 27 kg/m?? as calculated from the following: Height as of 07/18/24: 5' 7 . Weight as of this encounter: 172 lb 6.4 oz. BP: 108/72 Patient's last menstrual period was 06/19/2024. ASSESSMENT & PLAN ICD-10-CM 1. Encounter for ultrasound recheck of choroid plexus cyst, antepartum ([facility]) O35.03X0 US OB limited 1+ fetuses 2. Third trimester ([facility]) Z34.93 3. 31 weeks gestation of ([facility]) Z3A.31 POCT urinalysis dipstick manually resulted 4. size inconsistent with dates ([facility]) O26.849 US OB follow up transabdominal approach [...] (manic depression) ([facility]) BMI 24.0-24.9, adult Chicken pox 2007 Complication of intrauterine device (IUD) Headache IBS (irritable bowel syndrome) IBS with diarrhea Inattention Intrauterine device surveillance Irregular menses Pelvic pain Urinary tract infection [3] Family History Problem Relation Name Age of Onset Cancer Mother kaial Mental illness Mother kaila manic depressive bipolar disorder No Known Problems Brother 2 brothers Breast cancer Paternal Grandmother juan pablo Cancer Paternal Grandmother juan pablo No Known Problems Daughter [4] Past Surgical History: Procedure Laterality Date LAPAROSCOPY DIAGNOSTIC / BIOPSY / ASPIRATION / LYSIS 04/01/2024 LITHOTRIPSY 2014 kidney stones/lithotrypsy PAP SMEAR 05/21/2021 negative WISDOM TOOTH EXTRACTION 2014 [place] teeth documented in this encounter Plan of Treatment DateTypeDepartmentCare Team (Latest Contact Info)Jpjztemscwy67/28/2025 10:20 AM EDTRoutine [facility] [address] [place] [place] [address] Jose Pan, [address] [place], [place] [id number] NameTypePriorityAssociated DiagnosesOrder ScheduleUS OB follow up transabdominal approachImagingRoutine size inconsistent with dates ([facility]) Expected: 01/24/2025, Expires: 05/27/2025documented as of this encounter Procedures Procedure NamePriorityDate/TimeAssociated DiagnosisCommentsPOCT URINALYSIS BTXNXVCWOahyuwt86/14/2025 10:23 AM EDT 31 weeks gestation of ([facility]) documented in this encounter Results * POCT [...] 10:23 AM EDT Narrative Authorizing ProviderResult TypeResult StatusCorematthieu Pan DOPOINT OF CARE TEST ENTER/EDIT ORDERABLESFinal [...] Díaz MD Authorizing ProviderResult TypeResult StatusCorey Maxim [facility] OB US PROCEDURES Final Result documented in this encounter Visit Diagnoses Diagnosis Encounter for ultrasound recheck of choroid plexus cyst, antepartum ([facility]) Encounter for ultrasound recheck of choroid plexus cyst, antepartum ([facility]) Third trimester ([facility]) state, incidental 31 weeks gestation of ([facility]) size inconsistent with dates ([facility]) documented in this encounter Care Teams Team MemberRelationshipSpecialtyStart DateEnd Date Sri Ramírez MD [address], [place] [id number] PCP - GeneralFamily Medicine09/19/22 Kayla Kahn DO [address] [place] [address] Referring Physician09/19/22documented as of this encounter
--- NOTE | 2025-02-01 13:35 | US_ITS ---
The [address] [address] Patient Name: FAHEEM BABB MRN: [id number] date: 1995 Sex: F Assigned Patient Location: Current Patient Location: Accession/Order Number: [id number] Exam Date: 02/01/2025 13:36 Report Date: 02/02/2025 08:33 At the request of: TRISTA BIRCH DO Procedure: US OB growth ULTRASOUND OB GROWTH COMPARISON: 11/07/2024 and 12/05/2004 CLINICAL DATA: size and consistent with dates There is a single live intrauterine gestation in cephalic presentation. There is cardiac and somatic activity with heart rate of 144 bpm. The amniotic fluid index measures 15.8 cm which is in upper normal range. The following measurements were obtained: Biparietal diameter 8.0 cm 32 weeks 1 day 34% Head circumference 30.3 cm 33 weeks 5 days 46% Abdominal circumference 28.7 cm 32 weeks 5 days 58% Femur length 6.2 cm 32 weeks 5 days 26% The composite ultrasound age based on these measurements is 32 weeks 5 days +/- 2 weeks 2 days. This correlates with dates based on the prior. The estimated date of delivery is 03/24/2025. Estimated weight is 4 lbs. 6 oz. +/- 11 ounces (43%). US/US OB growth IMPRESSION: SINGLE LIVE INTRAUTERINE GESTATION WITH ULTRASOUND AGE OF 32 WEEKS 5 DAYS Impression dictated by: Ana Michael M.D. 02/02/2025 8:33 AM Dictation Location: [place] [address] Electronically authenticated by: [id number] Y Date: 02/02/2025 08:33
--- OUTSIDE RECORDS SUMMARY | 2025-02-01 13:36 | XMS_ITS | Encounter Summary ---
Author Organization [facility] Address [address] [place] [address] Care Team Providers Care C D Area Supervisor Name Role Phone Sri Ramírez MD Primary Care Provider [phone] Kayla Kahn DO Unavailable [phone] Encounter Details DateTypeDepartmentCare Team (Latest Contact Info)Dmcmzteyxpd62/20/2025bstract [facility] [address] [place] [address] [place] [address] Ameena Booker MA Social History Tobacco UseTypesPacks/DayYears UsedDateSmoking Tobacco: FormerCigarettes0.55 Smokeless Tobacco: NeverAlcohol UseStandard Drinks/WeekCommentsNever0 (1 standard drink = 0.6 oz pure alcohol)caffeine: 1-2 cups coffee or energy drink kixqseogirzhY2164 Health LiteracyAnswerDate RecordedHow often do you need [...] a week 09/24/2023How often do you attend protestant or catholic services?Patient declined 09/24/2023o you belong to any clubs or organizations such as protestant groups, unions, fraternal or athletic groups, or school groups?No09/24/2023How often do you attend meetings of the clubs or organizations you belong to?Never09/24/2023 Are you , , , , never , or living with a partner?Patient kuqffybl61/13/2024UDIT-CAnswerDate RecordedQ1: How often do you have a [...] heating?Not hard at all09/24/2023HQ-2AnswerDate RecordedPatient Health Questionnaire-2 Slcby928Finblue mountain hospital [place] of Occupational Health - Occupational Stress QuestionnaireAnswerDate [...] homeless or living in a penitentiary (including now)?No09/24/2023 Estimated Date of RgjacwglHzcoyrkfPwf27/14/2025Based on last menstrual period of 06/19/2024Sex and Gender InformationValueDate RecordedSex Assigned at BirthNot on fileLegal SjsTowsns73/15/2023 6:40 PM EDTGender IdentityNot on file Sexual OrientationNot on filedocumented as of this encounter Plan of Treatment DateTypeDepartmentCare Team (Latest Contact Info)Qgtxmwopmvg32/28/2025 10:20 AM EDTRoutine [facility] [address] [place] [address] Jose Pan DO [address] [facility] [address] [place], [place] [address] documented as of this encounter Visit Diagnoses Not on filedocumented in this encounter Care Teams Team MemberRelationshipSpecialtyStart DateEnd Date Sri Ramírez MD [address] [place] [address] PCP - GeneralFamily Medicine09/19/22 Kayla Kahn DO [address] [place] [address] Referring Physician09/19/22documented as of this encounter
--- OUTSIDE RECORDS SUMMARY | 2025-02-01 13:36 | XMS_ITS | Patient Health Record ---
Author Organization [facility] Address [address] [place] [address] Care Team Providers Care Director Of Hotel Operations Name Role Phone Dr. Elpidio Michelle Primary Care Provider [phone] Reason For Referral No Information Plan Of Treatment No Information Insurance Providers Payer Name Payer Address Payer Phone Subscriber Number Group Number Insured Name Patient Relationship to Insured Coverage Start Date Coverage End Date zDENTAL SHERIEKATRIN-termed 22 [address] [place] [address] [id number] Fadi BASURTO - patient is the [id number] 2020[facility] [employer] after SHERIEANTHONYRaymundo-termed [address] [place] [phone] [id number], HAILEYSelf - patient is the [id number] 2020
--- OUTSIDE RECORDS SUMMARY | 2025-02-01 13:37 | XMS_ITS | Clinical Summary ---
Author Organization [facility] Address [address] [place] [address] Care Team Providers Care Geologist Name Role Phone Sri Ramírez MD Primary Care Provider [phone] Kayla Kahn DO Unavailable [phone] Allergies Active AllergyReactionsCriticalityNoted DateCommentsBacitracin-Polymyxin B 09/06/2022 Other Reaction(s): Unknown QdpqawezrIiyktsbSaq52/27/2023 Caused heart palpitations and increased anxiety PlroiixkqkvsWtomh73/27/2023 groggy Other Reaction(s): Sleepy Medications MedicationSigDispense QuantityRefillsLast FilledStart DateEnd DateStatus Multiple Vitamin (multivitamin) tablet Take 1 tablet by mouth DailyActive co-enzyme Q-10 30 MG capsule Take 30 mg by mouth DailyActive ondansetron ODT (Zofran-ODT) 4 MG disintegrating tablet DISSOLVE 1 TABLET on tongue EVERY 8 HOURS NEEDED FOR NAUSEA & FOR VOMITING 5Active azelaic acid (Finacea) 15 % gel Indications:Acne, unspecified acne typeApply 1 application topically in the morning and 1 application before bedtime. 60 g 1108/25/470442/6Active Active Problems ProblemNoted DateDiagnosed DateBladder pain07/18/2024Gross bmeerpllg31/07/2025 Bacterial infection due to wfacsvzajq26/04/2024Vaginal odor02/15/2024Urinary tract infection without nepnpbkkb94/04/2024acterial hezdggsfb98/04/2024 Adjustment disorder with mixed anxiety and depressed mood09/06/2022menorrhea 09/06/20220199Skqrijc75/27/2023ipolar affective disorder, currently depressed, hjydgcbc78/27/2023omplication of intrauterine device (IUD)09/06/2022Inattention 09/06/2022Irregular dbccpx7909/06/2022Irritable bowel syndrome with diarrhea 09/06/2022Menstrual cramp09/06/2022ain in aaqncw6309/06/2022eneralized anxiety xontshsz45/27/2023ost-traumatic stress selqvfva68/27/2023Slow transit uwtzhagvzevq24/27/2023nxiety during ([facility])03/26/2020Depression affecting mhzplwhzy37/14/2020History of /14/2020Calculus of kidney 07/25/2013Estimated Date of BlnssyizJejqcpiyNzg36/14/2025ased on last menstrual period of 06/19/2024 Encounters DateTypeDepartmentCare RnnsUwgfahvwxmu99/20/20[place] [address] Jhony [place], [place] 01/24/2025 10:00 [place] [address] Trista Pan DO Encounter for ultrasound recheck of choroid plexus cyst, antepartum ([facility]); Third trimester ([facility]); 31 weeks gestation of ([facility]); size inconsistent with dates ([facility])01/24/2025 9:30 AM EDTAncillary Procedure [facility] [address] Encounter for ultrasound recheck of choroid plexus cyst, antepartum ([facility])01/09/2025 10:10 AM EDTRoutine PABLITO Craft [facility] [address] Padmini Gunter, VIC Third trimester ([facility]); 29 weeks gestation of ([facility]); Choroid plexus cyst09/29/2025Bamboo flowsheet [facility] [address] [place] [phone] Padmini Gunter NP 5Abstract [facility] [address] [place] [phone] Trista Pan DO 12/28/2024 3:20 PM EDTRoutine [facility] [address] [place] [phone] Daja Ryan PA Second trimester ([facility]); 27 weeks gestation of ([facility])5Bamboo flowsheet [facility] DOMINGUEZN [address] [place] [address] Daja Ryan PA 5Clinisync Result Encounter [facility]OM[facility] External Department Unsolicited Provider, Generic External Data 12/05/2024 1:50 PM EDTRoutine [facility] DOMINGUEZN [address] [place] [address] Trista Pan DO Acne, unspecified acne type (Primary Dx); Second trimester ([facility]); 24 weeks gestation of ([facility]); Diabetes mellitus screening; Screening, , for anatomic survey ([facility])5Clinisync Result Encounter [facility] External Department Unsolicited Provider, Generic External Data 12/05/2024Orders Only [facility] [address] [place] [phone] Estela Phipps LPN Encounter for follow-up ultrasound of anatomy ([facility])11/07/2024 2:00 PM EDTRoutine [facility] ROBIN [address] [place] [phone] Trista Pan DO Screening, , for anatomic survey ([facility]) (Primary Dx); Second trimester ([facility]); 20 weeks gestation of ([facility])5Clinisync Result Encounter [facility] External Department Unsolicited Trista Pan DO 11/07/2024linisync Result Encounter [facility] External Department Unsolicited Provider, Generic External Data 11/02/2024linisync Result Encounter [facility] External Department Unsolicited Trista Pan, from Last 3 Months Immunizations ImmunizationAdministration DatesNext FaoDSU501DTaP, Xhwxqmgvebx80/17/2003 ,05/15/1998,1997,1997,1997HPV, Epnnfozrfiqg96/22/2011, 02/05/2010,11/26/2009Hep B, Adolescent or Gkfbqhqpc68/23/1998,1997HiB, nmxzuqhfnnw68/27/1998,1997Hib (PRP-T)05/15/1998Hib / Hep B009/11/1997IPV 10/27/2002,05/15/1998,1997,1997MMR10/27/2002,05/15/1998Tdap 11/26/2009 Family History Medical HistoryRelationNameCommentsNo Known ProblemsBrother2 brothersNo Known ProblemsDaughterCancerMotherbernadetteMental illnessMotherbernadettemanic depressive bipolar disorderBreast cancerPaternal GrandmotherdebCancerPaternal TivvbgvgbaooidDczwfeokTbpeSvbcdfPbjgbzszPvqvnet2QiszcfxjVmgmgGgtyqzMxpppJscizczq GrandmotherMotherbernadetteAlivePaternal GrandmotherdebAlive Social History Tobacco UseTypesPacks/DayYears UsedDateSmoking Tobacco: FormerCigarettes0.55 Smokeless Tobacco: Never Tobacco Cessation:Counseling Given: Not Answered Alcohol UseStandard Drinks/WeekCommentsNever0 (1 standard drink = 0.6 oz pure alcohol)caffeine: 1-2 cups coffee or energy drink ujfgeenzbjqlG6732 Health LiteracyAnswerDate RecordedHow often do you need to have someone help you when you read instructions, pamphlets, or other written material from your doctor or pharmacy?Never09/24/2023Social Connection and Isolation PanelAnswerDate Recorded In a typical week, how many times do you talk on the phone with family, friends, or neighbors?More than three times a week09/24/2023How often do you get together with friends or relatives?Twice a week09/24/2023How often do you attend pentecostal or sabianism services?Patient evyxdugz16/13/2024o you belong to any clubs or organizations such as pentecostal groups, unions, fraternal or athletic groups, or school groups?No09/24/2023How often do you attend meetings of the clubs or organizations you belong to?Never09/24/2023re you , , , , never , or living with a partner?Patient lbiwvqcr46/13/2024 AUDIT-CAnswerDate RecordedQ1: How often do you have a drink containing alcohol? Never09/24/2023Q2: How many drinks containing alcohol do you have on a typical day when you are drinking?Patient does not drink09/24/2023Q3: How often do you have six or more drinks on one occasion?Never09/24/2023Overall Financial Resource Strain (CARDIA)AnswerDate RecordedHow hard is it for you to pay for the very basics like food, housing, medical care, and heating?Not hard at all 09/24/2023HQ-2AnswerDate RecordedPatient Health Questionnaire-2 Score0 07/18/2024[facility] [place] [facility] Occup[facility] - Occupational Stress QuestionnaireAnswerDate RecordedDo you feel stress - tense, restless, nervous, or anxious, or unable to sleep at night because yourmind is troubled all the time - these days?Rather much09/24/2023Exercise Vital SignAnswerDate RecordedOn average, how many days per week do you engage in moderate to strenuous exercise (like a brisk walk)?3 days09/24/2023On average, how many minutes do you engage in exercise at this level?60 min09/24/2023Hunger Vital SignAnswerDate Recorded Within the past 12 months, you worried that your food would run out before you got the money to buymore.Never true09/24/2023Within the past 12 months, the food you bought just didn't last and you didn't have money to get more.Never true 09/24/2023RAPARE - TransportationAnswerDate RecordedIn the past 12 months, has lack of transportation kept you from medical appointments or from getting medications?No09/24/2023In the past 12 months, has lack of transportation kept you from meetings, work, or from getting things needed for daily living?No 09/24/2023Housing Stability Vital SignAnswerDate RecordedIn the last 12 months, was there a time when you were not able to pay the mortgage or rent on time?No 09/24/2023In the past 12 months, how many times have you moved where you were living?t any time in the past 12 months, were you homeless or living in a halfway (including now)?No09/24/2023Estimated Date of Delivery QvztythjQnr24/14/2025ased on last menstrual period of 06/19/2024Sex and Gender InformationValueDate RecordedSex Assigned at BirthNot on fileLegal SexFemale 06/25/2022 6:40 PM EDTGender IdentityNot on fileSexual OrientationNot on file Last Filed Vital Signs Vital SignReadingTime TakenCommentsBlood Eoceofdg214/7201/24/2025 10:15 AM EDT Xffve3637 8:15 AM ALRQltzeaazxrp93 ??C (95 ??F)06/10/2024 8:03 AM EST Respiratory Dzin173107/18/2024 8:15 AM EDTOxygen Tnsvlbtfri44%07/18/2024 8:15 AM EDTInhaled Oxygen Concentration--Axhpoa68.2 kg (172 lb 6.4 oz)01/24/2025 10:15 AM OBMBujxvr767.2 cm (5' 7 )07/18/2024 8:15 AM EDTBody Mass Atmdp1885/07/2025 8:15 AM EDT Plan of Treatment DateTypeDepartmentCare Team (Latest Contact Info)Gbkaepveyct16/28/2025 10:20 AM EDTRoutine [facility] [address] [place] [address] Trista Pan DO [address] [place] [address] Health MaintenanceDue DateLast DoneCommentsInfluenza Vaccine (#1)12/12/2024 Procedures Procedure NamePriorityDate/TimeAssociated DiagnosisCommentsPOCT URINALYSIS XGWTDYZATegzzdg78/14/2025 10:23 AM EDT 31 weeks gestation of ([facility]) US OB LIMITED 1+ BZZZTAVQurzipd35/14/2025 10:06 AM EDT Encounter for ultrasound recheck of choroid plexus cyst, antepartum ([facility]) POCT URINALYSIS IIEBVGIGHyddvcm26/29/2025 10:19 AM EDT Third trimester ([facility]) POCT URINALYSIS MQXSVUBNXkrajjc11/17/2025 3:47 PM EDT Second trimester ([facility]) 27 weeks gestation of ([facility]) ALL CBC WITH AUTO YUGGWcdhcdu50/30/2025 10:15 AM EDT GLUCOSE 1 FHALDqqoehg06/30/2025 10:15 AM EDT US OB FOLLOW UP12/05/2024 2:33 PM EDT POCT URINALYSIS EULVFRCCFwleswe78/25/2025 2:15 PM EDT Second trimester ([facility]) POCT URINALYSIS OMADPCVBElfyoco84/28/2025 2:17 PM EDT Second trimester ([facility]) US OB CERVICAL QXCUBE9311/07/2024 12:24 PM EDT US OB WDPPORZ8111/07/2024 12:24 PM EDT AFP, SERUM, OPEN SPINA OYPONQVqsaidb55/23/2025 2:38 PM EDT from Last 3 Months Results * POCT urinalysis dipstick manually resulted (01/24/2025 10:23 AM EDT) Only the most recent of5 resultswithin the time period is included. ComponentValueRef RangeTest MethodAnalysis TimePerformed AtPathologist Signature Color, UAYellowClarity, UAClearGlucose, UANegativeNegative - 2000(110) ++++ mg/dLBilirubin, UANegativeNegative - 4(70) +++ mg/dLKetones, UANegativeNegative - 160(16) ++++ mg/dLSpec Grav, UA1.0101 - 1.03Blood, UANegativeNegative - 50 Allen/mcLpH, UA6.55 - 9Protein, UANegativeNegative - 2000(20) ++++ mg/dL Urobilinogen, UA2.00.2 - 12 mg/dLLeukocytes, UANegativeNegative - 500+++ Andrei/mcL Nitrite, UANegativeNegative - PositiveSpecimen (Source)Anatomical Location / LateralityCollection Method / VolumeCollection TimeReceived FyjuHcesk73/14/2025 10:23 AM EDT Narrative Authorizing ProviderResult TypeResult StatusCorey Maxim DOPOINT OF CARE TEST ENTER/EDIT ORDERABLESFinal Result [...] Díaz MD Authorizing ProviderResult TypeResult StatusCorey Maxim [facility] PROCED[facility] Final Result * GLUCOSE 1 HOUR (12/10/2024 10:15 AM EDT)ComponentValueRef RangeTest Method Analysis TimePerformed AtPathologist SignatureGLUCOSE 1 IUSD369<130 mg/dLTBH Specimen (Source)Anatomical Location / LateralityCollection Method / Volume Collection TimeReceived Time12/10/2024 10:15 AM EDT12/10/2024 10:16 AM EDT Narrative [facility] - 12/10/2024 11:26 AM EDT Authorizing ProviderResult TypeResult StatusCorematthieu Pan DOL BLOOD ORDERABLES Final ResultPerforming OrganizationAddressCity/State/ZIP CodePhone Number [facility] * (ABNORMAL) ALL CBC WITH AUTO DIFF (12/10/2024 10:15 AM EDT)ComponentValueRef RangeTest MethodAnalysis TimePerformed AtPathologist SignatureTBH WBC11.6(H) 4.0 - 11.0 10 3/uLTBHTBH RBC4.14(L)4.20 - 5.40 10 6/uLTBHTBH HGB12.912.0 - 16.0 g/dLTBHTBH HCT38.536.0 - 48.0 %TBHTBH MCV93.081.0 - 99.0 fLTBHTBH MCH31.2 26.7 - 34.0 pgTBHTBH MCHC33.529.9 - 35.2 g/dLTBHTBH RDW13.111.0 - 15.0 %TBHTBH VGQ327615 - 450 10 3/uLTBHTBH MPV9.99.5 - 13.5 fLTBHNEUTROPHILS PERCENT AUTO 81.6(H)43.0 - 75.0 %TBHLYMPHOCYTES PERCENT AUTO12.3(L)20.5 - 60.0 %TBH MONOCYTES PERCENT AUTO4.11.7 - 12.0 %TBHTBH EO %0.4(L)0.9 - 7.0 %TBHBASOPHILS PERCENT AUTO0.30.2 - 2.0 %TBHIMMATURE GRANULOCYTES PCT AUTO1.3(H)0.0 - 0.5 % TBHNEUTROPHILS ABSOLUTE AUTO9.5(H)1.4 - 6.5 10 3/uLTBHLYMPHOCYTES ABSOLUTE AUTO1.41.2 - 3.8 10 3/uLTBHMONOCYTES ABSOLUTE AUTO0.50.3 - 0.8 10 3/uLTBHTBH EO #0.10.0 - 0.7 10 3/uLTBHBASOPHILS ABSOLUTE AUTO0.00.0 - 0.1 10 3/uLTBH IMMATURE GRANULOCYTES ABS AUTO0.15(H)0.00 - 0.03 10 3/uLTBHSpecimen (Source) Anatomical Location / LateralityCollection Method / VolumeCollection Time Received Time12/10/2024 10:15 AM EDT12/10/2024 10:16 AM EDT Narrative [facility] - 12/10/2024 11:28 AM EDT Authorizing ProviderResult TypeResult StatusCorey Maxim DOCLINISYNCFinal Result Performing OrganizationAddressCity/State/ZIP CodePhone Number [facility] TB * OB FOLLOW UP (12/05/2024 2:33 PM EDT)Anatomical RegionLateralityModality Radiographic ImagingSpecimen (Source)Anatomical Location / Laterality Collection Method / VolumeCollection TimeReceived Time12/05/2024 2:33 PM EDT Narrative 12/05/2024 2:36 PM EDT [facility] ?[address] ? [place] [address] ? Ultrasound Report ? Signed ? Patient: FAHEEM BELCHER R ?MR#: [id number] ?? : 1995 ?Acct:[id number] ?? Age/Sex: 29 / F ?ADM Date: 12/05/24 ?? Loc: US ? Attending Dr: Padmini Gunter ? Ordering Physician: Padmini Gunter ?? Date of Service: 12/05/24 ?? Procedure(s): US OB follow up ?? Accession Number(s): [id number] ? cc: SRI RAMÍREZ ; JaniPadmini ? [facility] ? [address] ? [place] [address] ? Patient Name: ?? FAHEEM BELCHER ? MRN: [facility]:[id number] ? date: 1995 ?Sex: F ?? Assigned Patient Location: ?? Current Patient Location: US ?? Accession/Order Number: [id number] ?? Exam Date: 12/05/2024 ??13:08 ?Report Date: 12/05/2024 ??14:33 ? At the request of: ?? PADMINI ??JANI ? Procedure: ??US OB follow up ? OB ultrasound. ? Reason for exam:Follow-up choroid plexus cysts. ? Comparison:Anatomy ultrasound 11/07/2024 ? Technique: Transabdominal imaging of the gravid uterus was obtained. ? Findings: ? The previously identified choroid plexus cysts are less conspicuous on today's ?? study but likely still appear to be present as seen on the cine imaging. ? heart rate 159 bpm. ? US/US OB follow up ?? Impression: ? The previously identified choroid plexuses are less conspicuous on today's ?? study but appear to still be present best seen on the cine imaging. ? Impression dictated by: Elpidio Brush Jr., DYoanaOYoana ??12/05/2024 2:33 PM ? Dictation Location: [facility]- ? Electronically authenticated by: [id number] ??Y ?? Date: 12/05/2024 ??14:33 ? Dictated By: ?Elpidio Brush M.D. ? Signed By: ?12/05/24 1436 ? DD/ 1433 ? TD/TT: ? Plant Worker: Procedure Note Radiology, Radiologist, MD - 12/05/2024 [place] [address] Ultrasound Report Signed Patient: FAHEEM BELCHER R#: [id number] : 1995Acct:[id number] Age/Sex: 29 / FADM Date: 12/05/24 Loc: US Attending Dr: Padmini Gunter Ordering Physician: Padmini Gunter Date of Service: 12/05/24 Procedure(s): US OB follow up Accession Number(s): [id number] cc: SRI RAMÍREZ Kristina The [place] [id number] Patient Name: FAHEEM BELCHER MRN: [id number] date: 1995 Sex: F Assigned Patient Location: US Current Patient Location: US Accession/Order Number: [id number] Exam Date: 12/05/2024 13:08 Report Date: 12/05/2024 [...] Jr., D.O. 12/05/2024 2:33 PM Dictation Location: [place] [address] Electronically authenticated by: [id number] Y Date: 514:33 Dictated By: Elpidio Brush M.D. Signed By:12/05/24 1436 DD/ 1433 TD/TT: Plant Worker: Authorizing ProviderResult TypeResult StatusGeneric External Data ProviderIMG XR PROCEDURESFinal Result * US OB CERVICAL LENGTH (11/07/2024 12:24 PM EDT)Anatomical RegionLaterality ModalityOtherSpecimen (Source)Anatomical Location / LateralityCollection Method / VolumeCollection TimeReceived Time11/07/2024 12:24 PM EDT Narrative 11/07/2024 12:26 PM EDT [facility] ?[address] ? [place] [address] ? Ultrasound Report ? Signed ? Patient: HOLLEY,FAHEEM R ?MR#: [id number] ?? : 1995 ?Acct:[id number] ?? Age/Sex: 29 / F ?ADM Date: 07/28/25 ?? Loc: US ? Attending Dr: Trista Pan D.O. ? Ordering Physician: Trista Pan D.O. ?? Date of Service: 11/07/24 ?? Procedure(s): US OB cervical length ?? Accession Number(s): [id number] ? cc: SRI RAMÍREZ ; Trista Pan D.O. ? [facility] ? [address] ? [place] [address] ? Patient Name: ?? FAHEEM BELCHER ? MRN: [facility]:[id number] ? date: 1995 ?Sex: F ?? Assigned Patient Location: US ?? Current Patient Location: US ?? Accession/Order Number: [id number] ?? Exam Date: 11/07/2024 ??12:17 ?Report Date: 11/07/2024 ??12:24 ? At the request of: ?? TRISTA ??MAXIM ??DO ? Procedure: ??US OB cervical length ? CLINICAL DATA: Anatomy screening ? ULTRASOUND OB ANATOMY ? COMPARISON: 08/12/2024 ? There is a single live intrauterine gestation in transverse presentation with ?? head to the maternal right. ??The amniotic fluid volume is subjectively normal. ?? There is an anterior placenta which is unremarkable in appearance. ??There is ?? cardiac and somatic activity with heart rate of 152 bpm. ??The neural ?? axis and all 4 extremities were surveyed by the wearing apparel folder. ??There are ?? complex cord plexus cysts bilaterally. ??No other abnormalities were reported. ? The stomach, bladder, three-vessel cord with insertion, kidneys, ?? diaphragm, female genitalia, four-chamber heart with right and left outflow ?? tracts and facial features were seen. ?? The following measurements were obtained: ?? Biparietal diameter ? 5.0 cm ?? 21 weeks 1 day ?84% ?? Head circumference ? 18.4 cm ?? 20 weeks 5 days ?69% ?? Abdominal circumference ?14.9 cm ?? 20 weeks 1 day ? 46% ?? Femur length ?3.3 cm ?? 20 weeks 1 day ? 41% ?? The composite ultrasound age based on these measurements is 20 weeks 4 days ?? +/- 1 week 3 days. ??This is within standard deviation of dates based on last ?? menstrual period on the comparison. ? US/ OB cervical length ?? IMPRESSION: ? SINGLE LIVE INTRAUTERINE GESTATION WITH ULTRASOUND AGE OF 20 WEEKS 4 DAYS. ? UNREMARKABLE ANATOMY SURVEY OTHER THAN CHOROID PLEXUS CYSTS. ? OB CERVICAL LENGTH ? COMPARISON: 08/12/2024 ? The cervix was evaluated with the transvaginal probe. ??The cervix is closed ?? and the length is estimated at 4.4 cm. ??The anterior placenta is approximately ?? 3.1 cm from the internal cervical os. ? IMPRESSION: ? UNREMARKABLE, CLOSED CERVIX. ? Impression dictated by: Ana Michael M.D. ??11/07/2024 12:24 PM ? Dictation Location: [place] [address] ? Electronically authenticated by: [id number] ??Y ?? Date: 11/07/2024 ??12:24 ? Dictated By: ?Ana Michael M.D. ? Signed By: ?11/07/24 1226 ? DD/ 1224 ? TD/TT: ? Plant Worker: Procedure Note Radiology, Radiologist, - 11/07/2024 [place] [address] Ultrasound Report Signed Patient: FAHEEM BELCHER RMR#: [id number] : 1995Acct:[id number] Age/Sex: 29 / FADM Date: 11/07/24 Loc: US Attending Dr: Trista Pan D.O. Ordering Physician: Trista Pan D.O. Date of Service: 11/07/24 Procedure(s): US OB cervical length Accession Number(s): [id number] cc: SRI RAMÍREZ ; Trista Pan D.O. The [address] [address] Patient Name: FAHEEM BELCHER MRN: [facility]:[id number] date: 1995 Sex: F Assigned Patient Location: US Current Patient Location: US Accession/Order Number: [id number] Exam Date: 11/07/2024 12:17 Report Date: 11/07/2024 [...] all 4 extremities were surveyed by the wearing apparel folder. 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 [...] Michael M.D. 11/07/2024 12:24 PM Dictation Location: [place] [address] Electronically authenticated by: [id number] Y Date: 2:24 Dictated By: Ana Michael M.D. Signed By:11/07/24 1226 DD/ 1224 TD/TT: Plant Worker: Authorizing ProviderResult TypeResult StatusCorey Maxim DOCLINISYNC IMAGINGFinal Result * US OB ANATOMY (11/07/2024 12:24 PM EDT)Anatomical RegionLateralityModality OtherSpecimen (Source)Anatomical Location / LateralityCollection Method / VolumeCollection TimeReceived Time11/07/2024 12:24 PM EDT Narrative 11/07/2024 12:26 PM EDT [facility] ?[address] ? [place], [facility] ? Ultrasound Report ? Signed ? Patient: FAHEEM BELCHER R ?MR#: [id number] ?? : 1995 ?Acct:[id number] ?? Age/Sex: 29 / F ?ADM Date: 11/07/24 ?? Loc: US ? Attending Dr: Trista Pan D.O. ? Ordering Physician: Trista Pan D.O. ?? Date of Service: 11/07/24 ?? Procedure(s): US OB anatomy ?? Accession Number(s): [id number] ? cc: SRI RAMÍREZ ; Trista Pan D.O. ? [facility] ? [address] ? [place] [address] ? Patient Name: ?? FAHEEM BELCHER ? MRN: [facility]:[id number] ? date: 1995 ?Sex: F ?? Assigned Patient Location: US ?? Current Patient Location: US ?? Accession/Order Number: [id number] ?? Exam Date: 11/07/2024 ??12:17 ?Report Date: 11/07/2024 ??12:24 ? At the request of: ?? TRISTA ??MAXIM ??DO ? Procedure: ??US OB cervical length ? CLINICAL DATA: Anatomy screening ? ULTRASOUND OB ANATOMY ? COMPARISON: 08/12/2024 ? There is a single live intrauterine gestation in transverse presentation with ?? head to the maternal right. ??The amniotic fluid volume is subjectively normal. ?? There is an anterior placenta which is unremarkable in appearance. ??There is ?? cardiac and somatic activity with heart rate of 152 bpm. ??The neural ?? axis and all 4 extremities were surveyed by the wearing apparel folder. ??There are ?? complex cord plexus cysts bilaterally. ??No other abnormalities were reported. ? The stomach, bladder, three-vessel cord with insertion, kidneys, ?? diaphragm, female genitalia, four-chamber heart with right and left outflow ?? tracts and facial features were seen. ?? The following measurements were obtained: ?? Biparietal diameter ? 5.0 cm ?? 21 weeks 1 day ?84% ?? Head circumference ? 18.4 cm ?? 20 weeks 5 days ?69% ?? Abdominal circumference ?14.9 cm ?? 20 weeks 1 day ? 46% ?? Femur length ?3.3 cm ?? 20 weeks 1 day ? 41% ?? The composite ultrasound age based on these measurements is 20 weeks 4 days ?? +/- 1 week 3 days. ??This is within standard deviation of dates based on last ?? menstrual period on the comparison. ? / OB anatomy ?? IMPRESSION: ? SINGLE LIVE INTRAUTERINE GESTATION WITH ULTRASOUND AGE OF 20 WEEKS 4 DAYS. ? UNREMARKABLE ANATOMY SURVEY OTHER THAN CHOROID PLEXUS CYSTS. ? OB CERVICAL LENGTH ? COMPARISON: 08/12/2024 ? The cervix was evaluated with the transvaginal probe. ??The cervix is closed ?? and the length is estimated at 4.4 cm. ??The anterior placenta is approximately ?? 3.1 cm from the internal cervical os. ? IMPRESSION: ? UNREMARKABLE, CLOSED CERVIX. ? Impression dictated by: Ana Michael M.D. ??11/07/2024 12:24 PM ? Dictation Location: [facility] ? Electronically authenticated by: [id number] ??Y ?? Date: 11/07/2024 ??12:24 ? Dictated By: ?Ana Michael M.D. ? Signed By: ?11/07/24 1226 ? DD/ 1224 ? TD/TT: ? Plant Worker: Procedure Note Radiology, Radiologist, MD - 11/07/[address] [address] Ultrasound Report Signed Patient: FAHEEM BELCHER RMR#: [id number] : 1995Acct:[id number] Age/Sex: 29 / FADM Date: 11/07/24 Loc: US Attending Dr: Trista Pan D.O. Ordering Physician: Trista Pan D.O. Date of Service: 11/07/24 Procedure(s): US OB anatomy Accession Number(s): [id number] cc: SRI RAMÍREZ ; Trista Pan D.O. [place] [id number] Patient Name: FAHEEM BELCHER MRN: [id number] date: 1995 Sex: F Assigned Patient Location: [place] Current Patient Location: [place] Accession/Order Number: [id number] Exam Date: 11/07/2024 12:17 Report Date: 11/07/2024 [...] all 4 extremities were surveyed by the wearing apparel folder. 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 [...] Michael M.D. 11/07/2024 12:24 PM Dictation Location: [place] [address] Electronically authenticated by: [id number] Y Date: 2:24 Dictated By: Ana Michael M.D. Signed By:11/07/24 1226 DD/ 1224 TD/TT: Plant Worker: Authorizing ProviderResult TypeResult StatusGeneric External Data Provider [facility] IMAGINGFinal Result * AFP, SERUM, OPEN SPINA BIFIDA (11/02/2024 2:38 PM EDT)ComponentValueRef Range Test MethodAnalysis TimePerformed AtPathologist SignatureRESULTSReport.TBHTEST RESULTS:*Screen Negative*.TBHGEST. AGE ON COLLECTION DATE19.4. weeksTBHGESTAT. AGE BASED ONLMP.TBHComment: Recalculations are not recommended when gestational dating by LMP and ultrasound are within 10 days. MATERNAL AGE AT EDD30.1. yrTBHRACECaucasian.WCOOPKABT207. lbsTBHINSULIN DEP DIABETESNo.TBHMULTIPLE GESTATIONNo.TBHAFP VALUE52.0. ng/mLTBHAFP MOM1.01.TBHOSBR RISK 1 [id number].TBHINTERPRETATIONComment.TBHComment: Interpretation: Screen Negative This result is screen [...] Genetic Customer Services to discuss available options. ??The [employer] recommends amniocentesis be offered to women age 35 and older. COMMENT:Comment.TBHComment: Alejandra Santiago, Ph.D., [facility] Director References: Available Upon Request. Multiples Of Median Cutoffs ?For AFP Elevations Mascorro ?? 2.5 ? Black ?2.8 IDD ? 2.0 ? Twins ?4.5 ?Abbreviation Definitions IDD - Insulin Dep Diabetes OSBR - Open Spina Bifida Risk For further inquiries contact [facility] at [phone]. This test was developed and its performance characteristics determined by [employer]. It has not been cleared or approved by the Food and Drug Administration. Performed at: ?? - [place] [address] [place], [place] [id number] Lumber Sorter: Halina Hill [facility], Phone: ??[phone] Specimen (Source)Anatomical Location / LateralityCollection Method / Volume Collection TimeReceived Time11/02/2024 2:38 PM EDT11/02/2024 2:40 PM EDT Narrative [facility] - 11/04/2024 1:07 AM EDT N N LMP [id number] 1 16 N 1 Y 153 N N N N N White/ Authorizing ProviderResult TypeResult StatusGeneric External Data ProviderLAB BLOOD ORDERABLESFinal ResultPerforming OrganizationAddressCity/State/ZIP Code Phone Number [facility] Last 3 Months Insurance Care Teams Team MemberRelationshipSpecialtyStart DateEnd Date Sri Ramírez MD [address] [place], [place] [phone] PCP - GeneralFamily Medicine09/19/22 Kayla Kahn DO [address] [place] [address] Referring Physician09/19/22
--- OUTSIDE RECORDS SUMMARY | 2025-02-01 13:38 | XMS_ITS | CCD ---
Author Organization [facility] Care Team Providers Care Towing Pilot Name Role Phone Sri Ramírez MD Primary Care Provider JASON BRADLEY Referring Unavailable BENEDICTO, SRI Mera Primary Care Unavailable PARSELLJASON Referring Unavailable BENEDICTO, SRI Mera Primary Care Unavailable JASON BRADLEY Referring Unavailable BENEDICTO, SRI Mera Primary Care Unavailable JASON BRADLEY Referring Unavailable BENEDICTO, SRI Mera Primary Care Unavailable BENEDICTO, DR BAER Primary Care Unavailable BK DENT Admitting Unavailable BK DENT Attending Unavailable ALISA MOULTON Consulting Unavailable MAXIM, DR WESTON Admitting Unavailable MAXIM, DR WESTON Attending Unavailable BENEDICTO, DR BAER Primary Care Unavailable MAXIM, DR WESTON Consulting Unavailable BENEDICTO SRI Mera Primary Care Unavailable DILCIA LAZO Attending Unavailable Sri Ramírez MD Primary Care Provider [phone] Femi ROQUE, Kayla R Unavailable Sharifa[employer] SHIPPING [employer] RECEIVING WEIGHER-NEUROLOGY TEACHER, Daisy M Unavailable SRI RAMÍREZ Primary Care Physician Femi ROQUE, Kayla R Unavailable Bonita Yu Attending Unavailable Bonita Yu Attending Unavailable Mitra Ellis Attending Unavailable Mitra Ellis Admitting Unavailable Femi ROQUE Kayla R Unavailable Bonita Yu Attending Unavailable JONAH GOMEZ Attending Unavailable JONAH GOMEZ Attending Unavailable JONAH GOMEZ Attending Unavailable DAJA RYAN Attending Unavailable REGGIE DONOVAN Attending Unavailable BENEDICTO SRI Samaria Attending Unavailable BENEDICTO SRI Samaria Referring Unavailable MAXIM, JOSE Attending Unavailable CONNOR, DAJA Attending Unavailable MAXIM, JOSE Attending Unavailable MAXIM, JOSE Attending Unavailable MAXIM, JOSE Attending Unavailable CONNOR, DAJA Attending Unavailable ANKITJAKE COVARRUBIAS Attending Unavailable ANKITJAKE COVARRUBIAS Referring Unavailable CONNOR, DAJA Attending Unavailable MAXIM, JOSE Attending Unavailable MAXIM, JOSE Attending Unavailable MAXIM, JOSE Attending Unavailable MAXIM, JOSE Attending Unavailable Allergies Allergy ClassificationReported Allergen(s)Allergy TypeDate of OnsetReaction(s) Facility (20 sources)Bacitracin / Polymyxin B; Translations: [bacitracin-polymyxin B topical]Drug Vsqrffn22-23-1510Vqtxkis (qualifier value)[facility] (20 sources)busPIRone; Translations: [buspirone]Drug Yoxabjt00-86-2104Oczlvcz, Anxiety (finding)[facility] (20 sources)Escitalopram; Translations: [escitalopram]Drug Ugqibdl33-01-3641 Other, Drowsy (finding)[facility] (2 sources)busPIRone; Translations: [BuSpar][facility] ([facility] sources)Escitalopram; Translations: [Lexapro][facility] (2 sources)Bacitracin-Polymyxin; Translations: [Bacitracin-Polymyxin]Propensity to adverse reactions (disorder)[facility] Medications Current Medications MedicationDrug Class(es)DatesSig (Normalized)Sig (Original)azelaic acid 0.15 mg/mg topical gel (11 sources)Start: 12-05-2024 End: 65-26-6642jsznlde acid (Finacea) 15 % gel Indications: Acne, unspecified acne type Apply 1 application topically in the morning and 1 application before bedtime. 60 g 11 12/05/2024 12/05/2025 Activecephalexin 500 mg oral capsule (3 sources)Cephalosporin AntibacterialStart: 06-10-2024 End: 14-42-1272koczddkgrt (Keflex) 500 MG capsule Indications: Cellulitis of finger of right hand Take 1 capsule (500 mg) by mouth in the morning and 1 capsule (500 mg) at noon and 1 capsule (500 mg) in the eveningand 1 capsule (500 mg) before bedtime. Do all this for 7 days. 28 capsule 06/10/2024 06/17/2024 ActiveClindamycin (1 source)Lincosamide AntibacterialStart: 03-09-2024 End: 11-40-2082Uvwhgnhgcvh Phosphate (Xaciato) 2 % gel Indications: Bacterial vaginosis Insert 1 applicator into the vagina at bedtime for 1 day 8 g 03/09/2024 03/10/2024 Activedoxycycline hyclate 100 mg oral capsule (9 sources)Tetracycline-class DrugStart: 02-15-2024 End: 73-29-7397flaczasevgy (Vibramycin) 100 MG capsule Indications: Bacterial infection due to mycoplasma Take 1 capsule (100 mg) by mouth in the morning and 1 capsule (100 mg) before bedtime. Do all this for 7 days. Take with at least 8 ounces (large glass) of water, do not lie down for 30 minutes after. 14 capsule 02/15/2024 02/22/2024 ActiveStart: 01-11-2024 End: 28-36-0259soogudxvksh (Vibramycin) 100 MG capsule Indications: Pelvic pain in female Take 1 capsule (100 mg) by mouth in the morning and 1 capsule (100 mg) before bedtime. Take with at least 8 ounces (large glass) of water, do not lie down for 30 minutes after. 60 capsule 01/11/2024 2024 Activeescitalopram 5 mg oral tablet (4 sources)Serotonin Reuptake InhibitorStart: 42-63-3951xzerftktedsx (LEXAPRO) 5 MG tabletmetroNIDAZOLE 0.013 mg/mg vaginal gel (10 sources)Nitroimidazole AntimicrobialStart: 05-23-2024 End: 19-46-3598bggqzTEGSYXDA (Nuvessa) 1.3 % gel Indications: Vaginal discharge , Vaginal burning Insert 5 g into the vagina 1 time for 1 dose 5 g 05/23/2024 05/23/2024 Discontinued (Other)Start: 03-09-2024 End: 58-26-8827rwkmwOFGVXEMT (Metrogel) 0.75 % vaginal gel Indications: Bacterial vaginosis Insert into the vaginaDaily for 5 days 70 g 03/09/2024 03/14/2024 ActiveStart: 2024 End: 82-08-2476olht 1 tablet by mouth in the morningmetroNIDAZOLE (Flagyl) 500 MG tablet Indications: BV (bacterial vaginosis) Take 1 tablet (500 mg) by mouth in the morning and 1 tablet (500 mg) before bedtime. Do all this for 7 days. Do not drink alcohol while taking this medication. 14 tablet 2024 02/17/2024 ActiveStart: 01-13-2024 End: 68-23-5514bufi 1 tablet by mouth in the morningmetroNIDAZOLE (Flagyl) 500 MG tablet Indications: BV (bacterial vaginosis) Take 1 tablet (500 mg) by mouth in the morning and 1 tablet (500 mg) before bedtime. Do all this for 7 days. Do not drink alcohol while taking this medication. 14 tablet 01/13/2024 01/27/2024 Discontinuedmoxifloxacin 400 mg oral tablet (2 sources)Quinolone AntimicrobialStart: 02-15-2024 End: 48-08-4604erqw 1 tablet by mouth once dailymoxifloxacin (Avelox) 400 MG tablet Indications: Bacterial infection due to mycoplasma Take 1 tablet (400 mg) by mouth Daily for 7 days start medication AFTER completing course of Doxycycline & Azithromycin. 7 tablet 02/15/2024 02/22/2024 ActiveMultiple Vitamin (multivitamin) tablet (20 sources)take 1 tablet by mouth once dailyMultiple Vitamin (multivitamin) tablet Take 1 tablet by mouth Daily Activenitrofurantoin, macrocrystals 25 mg / nitrofurantoin, monohydrate 75 mg oral capsule (2 sources)Nitrofuran AntibacterialStart: 09-13-2024 End: 83-29-1419qkvx 1 capsule by mouth in the morningnitrofurantoin, macrocrystal-monohydrate, (Macrobid) 100 MG capsule Indications: Urinary tract infection in mother during , antepartum Take 1 capsule (100 mg) by mouth in the morning and 1 capsule (100 mg) before bedtime. Do all this for 7 days. 14 capsule 09/13/2024 09/20/2024 Activeondansetron 4 mg disintegrating oral tablet (20 sources)Serotonin-3 Receptor AntagonistStart: 91-73-2767xnsdwnptesm ODT (Zofran-ODT) 4 MG disintegrating tablet DISSOLVE 1 TABLET on tongue EVERY 8 HOURS NEEDED FOR NAUSEA & FOR VOMITING 08/13/2024 Activepolyethylene glycol 3350 60697 mg powder for oral solution (4 sources)Osmotic LaxativeStart: 06-12-2021 End: 76-76-3767wxgshljvtans glycol (GLYCOLAX) 17 GM/SCOOP powder Take 17 g by mouth daily 1530 g 1 06/12/2021 07/12/2021 Activetamsulosin hydrochloride 0.4 mg oral capsule (4 sources)alpha-Adrenergic BlockerStart: 62-07-9975hlye 1 capsule by mouth once dailytamsulosin (FLOMAX) 0.4 MG capsule Take 1 capsule by mouth daily 30 capsule 0 06/12/2021 Activeubidecarenone 30 mg oral capsule (20 sources)take 1 capsule by mouth once dailyco-enzyme Q-10 30 MG capsule Take 30 mg by mouth Daily Active Completed/Discontinued Medications MedicationDrug Class(es)DatesSig (Normalized)Sig (Original)atomoxetine 40 mg oral capsule (3 sources)Norepinephrine Reuptake Inhibitor End: 71-19-8729ujpd 1 capsule by mouth once dailyatomoxetine (Strattera) 40 MG capsule Take 1 capsule by mouth Daily 01/11/2024 Discontinued (Other) azithromycin 500 mg oral tablet (8 sources)Macrolide AntimicrobialStart: 02-15-2024 End: 71-91-5870ierj 1 tablet by mouth once dailyazithromycin (Zithromax) 500 MG tablet Indications: Bacterial infection due to mycoplasma Day 1: Take 2 tablets PO onetime dose; Day 2,3,4: Take 1 tablet daily 5 tablet 02/15/2024 04/20/2024 Discontinued (Therapy completed)sertraline 25 mg oral tablet (3 sources)Serotonin Reuptake InhibitorStart: 11-16-2023 End: 60-06-9993mpxa 1 tablet by mouth once dailysertraline (Zoloft) 25 MG tablet Indications: Generalized anxiety disorder (CMS/HCC) Take 1 tablet (25 mg) by mouth Daily 30 tablet 1 11/16/2023 01/11/2024 Discontinued (Other) Problems Active Problems Problem ClassificationProblemDateDocumented DateEpisodic/ChronicAdjustment disorders (20 sources)Adjustment disorder with mixed anxiety and depressed mood; Translations: [Adjustment disorder with mixed anxiety and depressed mood]Onset: 644287-63-0020ZlknnryCwduetmf reactions (1 source)Unspecified contact dermatitis, unspecified cause; Translations: [[facility] CONTACT DERMATITIS UNS CAUSE]Onset: 43-90-0707UokqnqsaDtbknau disorders (20 sources)Anxiety; Translations: [Anxiety disorder, unspecified]Onset: 787901-83-0025FleegpxZvaiyzcosvcof and screening for infectious disease (3 sources)Encounter for screening for human papillomavirus (HPV); Translations: [Patient encounter status]Onset: 511860-85-4420XbkpknlyYyhgysilz disorders (20 sources)Amenorrhea; Translations: [Amenorrhea, unspecified]Onset: 09-06-2022 12-01-2023DrwgieaRiwn disorders (20 sources)Bipolar affective disorder, currently depressed, moderate; Translations: [Bipolar disorder, currentepisode depressed, moderate]Onset: 548126-49-1942XvfyzbrGpiaogiulpwq breast conditions (2 sources)Lump in lower outer quadrant of left breast; Translations: [Unspecified lump in the left breast, lower outer quadrant]28-29-6989Riknfdtp Other aftercare (2 sources)Surgical follow-up; Translations: [Encounter for follow-up examination after completed treatment for conditions other than malignant neoplasm]95-64-4119JohwtpbeNzucz aftercare (2 sources)Removal of sutures done; Translations: [Encounter for removal of sutures]77-10-8526UtygwmzrYxrvh complications of (2 sources)Urinary tract infection in ; Translations: [Unspecified infection of urinary tract in , unspecified trimester]09-13-2024 EpisodicOther complications of (2 sources) size does not accord with dates; Translations: [Uterine size- date discrepancy, unspecified trimester]94-98-5494PyfslzeaNmpdj diseases of kidney and ureters (3 sources)Hydronephrosis; Translations: [Hydronephrosis with renal and ureteral calculous obstruction]EpisodicOther female genital disorders (2 sources)Vaginal discharge; Translations: [Other specified noninflammatory disorders of vagina]20-77-7053LqspqrygXikux female genital disorders (2 sources)Burning sensation of vagina; Translations: [Other specified conditions associated with female genital organs and menstrual cycle]05-23-2024 EpisodicOther gastrointestinal disorders (20 sources)Irritable bowel syndrome with diarrhea; Translations: [Irritable bowel syndrome with diarrhea]Onset: 384997-73-4352RnnkykqDcqry inflammatory condition of skin (3 sources)Pruritus, unspecified; Translations: [PRURITUS UNSPECIFIED]Onset: 40-57-3650VjduxyusWwcqb nervous system disorders (20 sources)Inattention; Translations: [Attention and concentration deficit] Onset: 825489-42-1866GlmjwivNflzo nervous system disorders (2 sources)Choroid plexus cyst; Translations: [Cerebral cysts]07-34-0533Mvmnyoz Other and delivery including normal (18 sources); Translations: [Encounter for supervision of normal , unspecified, unspecified trimester]96-53-4608LtzkszszJfcht screening for suspected conditions (not mental disorders or infectious disease) (14 sources)Encounter for screening for malignant neoplasm of cervix; Translations: [Patient encounter status]Onset: 16-13-1945GqvnbopsEdibf skin disorders (2 sources)Acne; Translations: [Acne, unspecified]34-06-4344TpqtztbpDcrjzaxu codes; unclassified (2 sources)Gestation period, 12 weeks; Translations: [12 weeks gestation of ]60-44-1983DueqxnhhRphitrkq codes; unclassified (2 sources)Gestation period, 14 weeks; Translations: [14 weeks gestation of ]44-84-7283OdhbibsrRasbveln codes; unclassified (2 sources)Gestation period, 16 weeks; Translations: [16 weeks gestation of ]52-01-8562WqglpzlkYwlqagga codes; unclassified (2 sources)Gestation period, 20 weeks; Translations: [20 weeks gestation of ]94-52-6317KdyoldepQwrkdneu codes; unclassified (2 sources)Gestation period, 24 weeks; Translations: [24 weeks gestation of ]35-12-0060DiasfwabPqqrujue codes; unclassified (2 sources)Gestation period, 27 weeks; Translations: [27 weeks gestation of ]96-63-1653VhxwtdimXkldleez codes; unclassified (2 sources)Gestation period, 29 weeks; Translations: [29 weeks gestation of ]89-60-2530SiylvzkyEjermmml codes; unclassified (2 sources)Gestation period, 31 weeks; Translations: [31 weeks gestation of ]96-52-1318JyvzzvdqIbrz and subcutaneous tissue infections (2 sources)Cellulitis of finger of right hand; Translations: [Cellulitis of right finger]22-46-9893PqwxrodmPwjccucjcnuv (2 sources)Pain in pelvis; Translations: [Pain in pelvis]Onset: 09-06-2022 09-06-2022 Past or Other Problems Problem ClassificationProblemDateDocumented DateEpisodic/ChronicAbdominal pain (20 sources)Suprapubic pain; Translations: [Pelvic and perineal pain]Onset: 03-14-9905VbtgcsucNexkpdxgh infection; unspecified site (20 sources)Mycoplasma infection; Translations: [Mycoplasma infection, unspecified site]Onset: 744002-29-4195AvgieyhtCiyiqlvc of urinary tract (20 sources)Kidney stone; Translations: [Calculus of kidney]Onset: 07-25-2013 04-54-0872OuvlalohVksipjpctigj of device; implant or graft (20 sources)Disorder of intrauterine contraceptive device; Translations: [Unspecified complication of genitourinary prosthetic device, implant and graft, initial encounter]Onset: 239457-80-0744GzqthfhyBglailwblgznm symptoms and ill-defined conditions (20 sources)Dysuria; Translations: [Dysuria]Onset: 85-34-7105Aiqwmlla Inflammatory diseases of female pelvic organs (20 sources)Bacterial vaginosis; Translations: [Acute vaginitis]Onset: 666062-64-5660TlcpjsxdQvmge complications of (20 sources)Anxiety in ; Translations: [Other mental disorders complicating , unspecified trimester]Onset: EpisodicOther complications of (20 sources)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 ; Translations: [Other mental disorders complicating , unspecified trimester]Onset: 674736-06-6083IkaxvycgUcpfq complications of (20 sources)Other mental disorders complicating , unspecified trimester; Translations: [Mental disorders of mother, antepartum condition or complication]Onset: 006196-58-3855WupqpgxqKxmiy female genital disorders (20 sources)Vaginal odor; Translations: [Other specified noninflammatory disorders of vagina]Onset: 868517-26-7216ZhcmjataAjbcx gastrointestinal disorders (20 sources)Slow transit constipation; Translations: [Slow transit constipation] Onset: 322401-38-2879PxskoexaVxjcp infections; including parasitic (20 sources)History of chlamydial infection; Translations: [Personal history of other infectious and parasitic diseases]Onset: 829352-59-5487Myurxois Urinary tract infections (20 sources)Cystitis, unspecified with hematuria; Translations: [Urinary tract infectious disease]Onset: 060227-80-6393Tihavxob Results Test NameValueInterpretationReference RangeFacilityUS OB LIMITED 1+ FETUSESon 80-03-3712DM OB LIMITED 1+ FETUSESFINDINGS: Comparison made with prior examination of November 18, 2024. Single viable intrauterine with normal and cardiac activity, heart rate 144 bpm. Intracranial examinations demonstrates no significant choroid plexus cyst or hydrocephalus. Gestational age of 31 weeks, 2 days with an estimated delivery date of March 26, 2025. IMPRESSION: Normal intracranial appearing, viable intrauterine . TRANSCRIBED BY: ELECTRONICALLY SIGNED BY: Arnel RivasalNot AvailableComment on above:Order Comment: US OB REEVAL ABN Estimated Date of Delivery: 03/26/25 Gestational Age as of 01/24/2025: 26z6yOkbtvyvgyo macro (dipstick) panel (U)on 27-16-3390Cjntbxezy, UANegativeNegative - 4(70) +++ mg/dLNOMS HealthcareBlood, UANegativeNegative - 50 Allen/mcLNOMS HealthcareClarity, UAClearNOMS Healthcare Color, UAYellowNOMS HealthcareGlucose, UANegativeNegative - 2000(110) ++++ mg/dL NOMS HealthcareKetones, UANegativeNegative - 160(16) ++++ mg/dLNOMS Healthcare Leukocytes, UANegativeNegative - 500+++ Andrei/mcLNOMS HealthcareNitrite, UA NegativeNegative - PositiveNOMS HealthcarepH, UA6.55 - 9NOMS HealthcareProtein, UANegativeNegative - 1999(20) ++++ mg/dLNOMS HealthcareSpec Grav, UA1.0101 - 1.03NOMS HealthcareUrobilinogen, UA2.00.2 - 12 mg/dLNOMS HealthcareNOMS HealthcareUrinalysis macro (dipstick) panel (U)on 57-54-7923Vxoqwkfgb, UA NegativeNegative - 4(70) +++ mg/dLNOMS HealthcareBlood, UANegativeNegative - 50 Allen/mcLNOMS HealthcareClarity, UAClearNOMS HealthcareColor, UAYellowNOMS HealthcareGlucose, UANegativeNegative - 1999(110) ++++ mg/dLNOMS Healthcare Interpretation and review of laboratory resultsNormalNOMS HealthcareKetones, UA NegativeNegative - 160(16) ++++ mg/dLNOMS HealthcareLeukocytes, UANegative Negative - 500+++ Andrei/mcLNOMS HealthcareNitrite, UANegativeNegative - Positive NOMS HealthcarepH, UA75 - 9NOMS HealthcareProtein, UANegativeNegative - 1999(20) ++++ mg/dLNOMS HealthcareSpec Grav, UA1.011 - 1.03NOMS HealthcareUrobilinogen, UA1.00.2 - 12 mg/dLNOMS HealthcareNOMS HealthcareUrinalysis macro (dipstick) panel (U)on 03-62-2113Xjowpukju, UANegativeNegative - 4(70) +++ mg/dLNOMS HealthcareBlood, UANegativeNegative - 50 Allen/mcLNOMS HealthcareClarity, UAClear NOMS HealthcareColor, UAYellowNOMS HealthcareGlucose, UANegativeNegative - 1999(110) ++++ mg/dLNOMS HealthcareInterpretation and review of laboratory resultsNormalNOMS HealthcareKetones, UANegativeNegative - 160(16) ++++ mg/dLNOMS HealthcareLeukocytes, UANegativeNegative - 500+++ Andrei/mcLNOMS HealthcareNitrite, UANegativeNegative - PositiveNOMS HealthcarepH, UA6.55 - 9N[facility] Protein, UANegativeNegative - 2000(20) ++++ mg/dLNOMS HealthcareSpec Grav, UA 1.011 - 1.03NOMS HealthcareUrobilinogen, UA1.00.2 - 12 mg/dLNOMS HealthcareNOMS HealthcareGLUCOSE 1 HOURon 83-42-2888Qbxxiui [Mass/Vol]124 mg/dLNINF - 130 mg/dL NOMS HealthcareCLINISYNCNOMS HealthcareUS for multiple gestation limitedon 21-32-9131VdjDe [place], [place] [address] Ultrasound Report Signed Patient: FAHEEM BABB MR#: [id number] : 1995 Acct:[id number] Age/Sex: 29 / F ADM Date: 12/05/24 Loc: US Attending Dr: Jake Gunter Ordering Physician: Jake Gunter Date of Service: 12/05/24 Procedure(s): US OB follow up Accession Number(s): [id number] cc: SRI RAMÍREZ Kristina [place] [address] Patient Name: FAHEEM BABB MRN: [id number] date: 1995 Sex: F Assigned Patient Location: US Current Patient Location: US Accession/Order Number: [id number] Exam Date: 12/05/2024 13:08 Report Date: 12/05/2024 [...] Jr., D.O. 12/05/2024 2:33 PM Dictation Location: [place] [address] Electronically authenticated by: [id number] Y Date: 12/05/2024 14:33 Dictated By: Elpidio Brush M.D. Signed By: 12/05/24 1436 DD/ 32 TD/TT: Chair Car Attendant:TBHRadiology, Radiologist, MD - 12/05/2024 [place] [address] Ultrasound Report Signed Patient: FAHEEM BABB MR#: [id number] : 1995 Acct:[id number] Age/Sex: 29 / F ADM Date: 12/05/24 Loc: US Attending Dr: Jake Gunter Ordering Physician: Jake Gunter Date of Service: 12/05/24 Procedure(s): US OB follow up Accession Number(s): [id number] cc: SRI RAMÍREZ Kristina [place] [address] Patient Name: FAHEEM BABB MRN: [id number] date: 1995 Sex: F Assigned Patient Location: US Current Patient Location: US Accession/Order Number: [id number] Exam Date: 12/05/2024 13:08 Report Date: 12/05/2024 [...] Jr., D.O. 12/05/2024 2:33 PM Dictation Location: [place] [address] Electronically authenticated by: [id number] Y Date: 12/05/2024 14:33 Dictated By: Elpidio Brush M.D. Signed By: 12/05/24 1436 DD/ 32 TD/TT: Chair Car Attendant: [facility] LouisRad[facility] Study observation (narrative)NOMS HealthcareUS for multiple gestation limitedOrdered By: Radiologist Radiology on 21-73-0966FW[facility] Work Phone: Urinalysis macro (dipstick) panel (U)on 12-05-2024 Bilirubin, UANegativeNegative - 4(70) +++ mg/dLNOMS HealthcareBlood, UANegative Negative - 50 Allen/mcLNOMS HealthcareClarity, UAClearNOMS HealthcareColor, UA YellowNOMS HealthcareGlucose, UANegativeNegative - 2000(110) ++++ mg/dLNOMS HealthcareInterpretation and review of laboratory resultsNormalNOMS Healthcare Ketones, UANegativeNegative - 160(16) ++++ mg/dLNOMS HealthcareLeukocytes, UA NegativeNegative - 500+++ Andrei/mcLNOMS HealthcareNitrite, UANegativeNegative - PositiveNOMS HealthcarepH, UA6.55 - 9NOMS HealthcareProtein, UANegativeNegative - 2000(20) ++++ mg/dLNOMS HealthcareSpec Grav, UA1.011 - 1.03N[facility] Urobilinogen, UA0.20.2 - 12 mg/dLNOMS HealthcareNOMS HealthcareNo Panel InformationOrdered By: Radiologist Radiology on 84-60-1074[facility] Work Phone: No Panel Informationon 55-01-4082Uqanfhmpf Study observation (narrative)NOMS HealthcareUS OB ANATOMYon 55-61-4369[place]nDe [place] [address] Ultrasound Report Signed Patient: FAHEEM BABB MR#: [id number] : 1995 Acct:[id number] Age/Sex: 29 / F ADM Date: 11/07/24 Loc: US Attending Dr: Jose Pan D.O. Ordering Physician: Jose Pan D.O. Date of Service: 11/07/24 Procedure(s): US OB anatomy Accession Number(s): [id number] cc: SRI RAMÍREZ ; Jose Pan D.O. [place] [id number] Patient Name: FAHEEM BABB MRN: [id number] date: 1995 Sex: F Assigned Patient Location: US Current Patient Location: US Accession/Order Number: [id number] Exam Date: 11/07/2024 12:17 Report Date: 11/07/2024 [...] all 4 extremities were surveyed by the monument erector. 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 [...] Michael M.D. 11/07/2024 12:24 PM Dictation Location: [place] [address] Electronically authenticated by: [id number] Y Date: 11/07/2024 12:24 Dictated By: Ana Michael M.D. Signed By: 11/07/24 1226 DD/ 1224 TD/TT: Chair Car Attendant:TBHRadiology, Radiologist, - 11/07/2024 [place] [address] Ultrasound Report Signed Patient: FAHEEM BABB MR#: [id number] : 1995 Acct:[id number] Age/Sex: 29 / F ADM Date: 11/07/24 Loc: US Attending Dr: Jose Pan D.O. Ordering Physician: Jose Pan D.O. Date of Service: 11/07/24 Procedure(s): US OB anatomy Accession Number(s): [id number] cc: SRI RAMÍREZ ; Jose Pan D.O. The [place] [id number] Patient Name: FAHEEM BABB MRN: [id number] date: 1995 Sex: F Assigned Patient Location: US Current Patient Location: US Accession/Order Number: [id number] Exam Date: 11/07/2024 12:17 Report Date: 11/07/2024 [...] all 4 extremities were surveyed by the monument erector. 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 [...] Michael M.D. 11/07/2024 12:24 PM Dictation Location: [place] [address] Electronically authenticated by: [id number] Y Date: 11/07/2024 12:24 Dictated By: Ana Michael M.D. Signed By: 11/07/24 1226 DD/ 1224 TD/TT: Chair Car Attendant: PABLITO Germain OB CERVICAL LENGTHon 35-69-3836[place]fDe [place] [address] Ultrasound Report Signed Patient: FAHEEM BABB MR#: [id number] : 1995 Acct:[id number] Age/Sex: 29 / F ADM Date: 11/07/24 Loc: US Attending Dr: Jose Pan D.O. Ordering Physician: Jose Pan D.O. Date of Service: 11/07/24 Procedure(s): US OB cervical length Accession Number(s): [id number] cc: SRI RAMÍREZ ; Jose Pan D.O. [place] [id number] Patient Name: FAHEEM BABB MRN: [id number] date: 1995 Sex: F Assigned Patient Location: Current Patient Location: US Accession/Order Number: [id number] Exam Date: 11/07/2024 12:17 Report Date: 11/07/2024 [...] all 4 extremities were surveyed by the monument erector. 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 [...] Michael M.D. 11/07/2024 12:24 PM Dictation Location: [place] [address] Electronically authenticated by: [id number] Y Date: 11/07/2024 12:24 Dictated By: Ana Michael M.D. Signed By: 11/07/24 1226 DD/ 1224 TD/TT: Chair Car Attendant:CHRISadiologmatthieu, Radiologist, - 11/07/[address] [address] Ultrasound Report Signed Patient: FAHEEM BABB MR#: [id number] : 1995 Acct:[id number] Age/Sex: 29 / F ADM Date: 11/07/24 Loc: US Attending Dr: Jose Pan D.O. Ordering Physician: Jose Pan D.O. Date of Service: 11/07/24 Procedure(s): US OB cervical length Accession Number(s): [id number] cc: SRI RAMÍREZ ; Jose Pan D.O. The [address] [address] Patient Name: FAHEEM BABB MRN: [id number] date: 1995 Sex: F Assigned Patient Location: US Current Patient Location: US Accession/Order Number: [id number] Exam Date: 11/07/2024 12:17 Report Date: 11/07/2024 [...] all 4 extremities were surveyed by the monument erector. 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 [...] Michael M.D. 11/07/2024 12:24 PM Dictation Location: [place] [address] Electronically authenticated by: [id number] Y Date: 11/07/2024 12:24 Dictated By: Ana Michael M.D. Signed By: 11/07/24 1226 DD/ 1224 TD/TT: Chair Car Attendant: [facility]. LouisUrinalysis macro (dipstick) panel (U)on 22-53-7595Mrjyjbaga, UA NegativeNegative - 4(70) +++ mg/dLNOMS HealthcareBlood, UANegativeNegative - 50 Allen/mcLNOMS HealthcareClarity, UAClearNOMS HealthcareColor, UAYellowNOMS HealthcareGlucose, UANegativeNegative - 2000(110) ++++ mg/dLNOMS Healthcare Interpretation and review of laboratory resultsNormalNOMS HealthcareKetones, UA NegativeNegative - 160(16) ++++ mg/dLNOMS HealthcareLeukocytes, UANegative Negative - 500+++ Andrei/mcLNOMS HealthcareNitrite, UANegativeNegative - Positive NOMS HealthcarepH, UA65 - 9NOMS HealthcareProtein, UANegativeNegative - 2000(20) ++++ mg/dLNOMS HealthcareSpec Grav, UA1.0151 - 1.03NOMS HealthcareUrobilinogen, UA0.20.2 - 12 mg/dLNOMS HealthcareNOMS HealthcareAFP, SERUM, OPEN SPINA BIFIDA on 94-07-3870RTA MOM1.01.NOMS HealthcareAFP VALUE52.0 ng/mL.[facility] Healthcare COMMENT:Comment.[facility] HealthcareComment on above:Alejandra Santiago, Ph.D., [facility] Director References: Available Upon Request. Multiples Of Median Cutoffs For AFP Elevations Mascorro 2.5 Black 2.8 IDD 2.0 Twins 4.5 Abbreviation Definitions IDD - Insulin Dep Diabetes OSBR - Open Spina Bifida Risk For further inquiries contact [facility] at [phone]. This test was developed and its performance characteristics determined by [facility] It has not been cleared or approved by the Food and Drug Administration. Performed at: [facility] [address] [facility], [place], [place] [id number] Frit Mixer: Halina Hill [facility], Phone: [phone] GEST. AGE ON COLLECTION DATE19.4. weeksNOOK HealthcareGESTAT. AGE BASED ONLMP. [facility] HealthcareComment on above:Recalculations are not recommended when gestational dating by LMP and ultrasound are within 10 days. INSULIN DEP DIABETESNo.[facility] HealthcareINTERPRETATIONComment.[facility] Healthcare Comment on above:Interpretation: Screen Negative This result is screen negative [...] Customer Services to discuss available options. The [employer] recommends amniocentesis be offered to women age 35 and older. MATERNAL AGE AT EDD28.1. yrNOOK HealthcareMULTIPLE GESTATIONNo.[facility]OM Healthcare OSBR RISK 1 [id number].NOM HealthcareRACECaucasian.[facility] HealthcareRESULTSReport. [facility] HealthcareTEST RESULTS:Negative.[facility] GsopjiappsKFYEWM036. lbsNOMS HealthcarePREGNANCY N N LMP [id number] 1 16 N 1 Y 153 N N N N N White/ CLINISYNCNOMS HealthcareUrinalysis macro (dipstick) panel (U)on 10-10-2024 Bilirubin, UANegativeNegative - 4(70) +++ mg/dLNOMS HealthcareBlood, UANegative Negative - 50 Allen/mcLNOMS HealthcareClarity, UAClearNOMS HealthcareColor, UA YellowNOMS HealthcareGlucose, UANegativeNegative - 2000(110) ++++ mg/dLDA[facility] HealthcareInterpretation and review of laboratory resultsNormalNOOK Healthcare Ketones, UANegativeNegative - 160(16) ++++ mg/dLNOOK HealthcareLeukocytes, UA NegativeNegative - 500+++ Andrei/mcLNOOK HealthcareNitrite, UANegativeNegative - PositiveNOMS HealthcarepH, UA75 - 9NOMS HealthcareProtein, UANegativeNegative - 2000(20) ++++ mg/dLNOOK HealthcareSpec Grav, UA1.021 - 1.03NOOK Healthcare Urobilinogen, UA0.20.2 - 12 mg/dLNOCitizens Memorial HealthcareNOOK HealthcareRECURRENT VAGINITIS (HTRX)on 49-74-7527HLTFFZECW ZSIXMDZ1EIKA HealthcareATOPOBIUM VAGINAE Not detectedNOMS HealthcareBVAB 2,3 (BACTERIAL VAGINOSIS ASSOCIATED BACTERIA 2, 3); MOBILUNCUS [id number] HealthcareBVAB 2,3 (BACTERIAL VAGINOSIS ASSOCIATED BACTERIA 2, 3); MOBILUNCUS SPPNot detectedNOMS HealthcareCANDIDA ALBICANS, PARAPSILOSIS, [id number] HealthcareCANDIDA ALBICANS, PARAPSILOSIS, TROPICALISNot detectedNOMS HealthcareCANDIDA EPVNVUAH2TFKL HealthcareCANDIDA GLABRATANot detectedNOMS HealthcareCANDIDA JITZOR4FNNP HealthcareCANDIDA KRUSEI Not detectedNOMS HealthcareCHLAMYDIA OCWEOHZHBYD8ZFHZ HealthcareCHLAMYDIA TRACHOMATISNot detectedNOMS HealthcareGARDNERELLA LLPEREAEN4YGTV Healthcare GARDNERELLA VAGINALISNot detectedNOMS HealthcareMEGASPHAERA (TYPES 1, 2)0NOMS HealthcareMEGASPHAERA (TYPES 1, 2)Not detectedNOMS HealthcareMYCOPLASMA HYENSNSDYY7YVCL HealthcareMYCOPLASMA GENITALIUMNot detectedNOMS Healthcare NEISSERIA DPYXFTQUSRC6NWIJ HealthcareNEISSERIA GONORRHOEAENot detectedNOMS HealthcareTRICHOMONAS CFCSHPGIE2DWTF HealthcareTRICHOMONAS VAGINALISNot detected NOMS HealthcareNOMS HealthcareUrinalysis macro (dipstick) panel (U)on 09-28-2024 Bilirubin, UANegativeNegative - 4(70) +++ mg/dLNOMS HealthcareBlood, UAPositive Negative - 50 Allen/mcLNOMS HealthcareComment on above:traceClarity, UAClearNOMS HealthcareColor, UAYellowNOMS HealthcareGlucose, UANegativeNegative - 2000(110) ++++ mg/dLNOMS HealthcareInterpretation and review of laboratory resultsNormal NOMS HealthcareKetones, UANegativeNegative - 160(16) ++++ mg/dLNOMS Healthcare Leukocytes, UANegativeNegative - 500+++ Andrei/mcLNOMS HealthcareNitrite, UA NegativeNegative - PositiveNOMS HealthcarepH, UA6.55 - 9NOMS HealthcareProtein, UANegativeNegative - 1999(20) ++++ mg/dLNOMS HealthcareSpec Grav, UA1.0251 - 1.03NOMS HealthcareUrobilinogen, UA0.20.2 - 12 mg/dLNOMS HealthcareNOMS HealthcareUrinalysis macro (dipstick) panel (U)on 86-46-1434Fejvdvtvr, UA NegativeNegative - 4(70) +++ mg/dLNOMS HealthcareBlood, UAPositiveNegative - 50 Allen/mcLNOMS HealthcareClarity, UAClearNOMS HealthcareColor, UAYellowNOMS HealthcareGlucose, UANegativeNegative - 2000(110) ++++ mg/dLNOMS Healthcare Interpretation and review of laboratory resultsAbnormalNOMS HealthcareKetones, UAPositiveNegative - 160(16) ++++ mg/dLNOMS HealthcareLeukocytes, UANegative Negative - 500+++ Andrei/Central Park HospitalNOOK HealthcareNitrite, UANegativeNegative - Positive NOMS HealthcarepH, UA75 - 9NOMS HealthcareProtein, UANegativeNegative - 2000(20) ++++ mg/dLNOMS HealthcareSpec Grav, UA1.021 - 1.03NOMS HealthcareUrobilinogen, UA1.00.2 - 12 mg/dLNOMS HealthcareNOMS HealthcareBOX TESTon 61-33-6455RFO TEST SENT OUTunThe [facility] HsyflmimbpHQN1pogseBZBW PgcjhczrijIRU82/12/25NOOK Healthcare [facility]ISYNCD[facility] HealthcareHCG ( test) Ql (U)on 96-15-6026Ogpbjgyjrpibac and review of laboratory resultsAbnormalNOMS HealthcarePreg Test, UrPositive NegativeNOMS HealthcareNOMS HealthcareUS OB TRANSVAGINALon 56-49-1835RE OB TRANSVAGINALEXAM: US OB TRANSVAGINAL HISTORY: Dating. LMP 06/19/2024. [...] II, MD, PHD at 21-Aug-2024 08:21:12 PM [facility] TeleradiologyNormalNot AvailableComment on above:Order Comment: US OB TRANSVAGINAL No LMP recorded.Urinalysis macro (dipstick) panel (U)on 34-69-7992Rbsrxdwqp, UA NegativeNegative - 4(70) +++ mg/dLNOMS HealthcareBlood, UANegativeNegative - 50 Allen/mcLNOMS HealthcareClarity, UAClearNOMS HealthcareColor, UAYellowNOMS HealthcareGlucose, UANegativeNegative - 2000(110) ++++ mg/dLNOMS Healthcare Interpretation and review of laboratory resultsNormalNOMS HealthcareKetones, UA NegativeNegative - 160(16) ++++ mg/dLNOMS HealthcareLeukocytes, UANegative Negative - 500+++ Andrei/mcLNOMS HealthcareNitrite, UANegativeNegative - Positive NOMS HealthcarepH, UA75 - 9NOMS HealthcareProtein, UANegativeNegative - 2000(20) ++++ mg/dLNOOK HealthcareSpec Grav, UA1.011 - 1.03NOOK HealthcareUrobilinogen, UA0.20.2 - 12 mg/dLNOCitizens Memorial HealthcareNOOK HealthcareAmbulatory Visit Summaryon 45-07-0722Nnvctebsgv Visit SummaryAmbulatory Visit Summary FAHEEM BABB :1995 Visit Date:08/01/2024 Ambulatory Visit Instructions Your Diagnosis UTI symptoms Your Care Team Attending Physician - JONAH GOMEZ PA-C Primary Care Physician - SRI RAMÍREZ MD This Is Your Medications List Non-Formulary Medication (demannose and cranberry) bifidobacterium-lactobacillus (Probiotic 10 Ultra Strength) multivitamin, (Vitafusion ) Procedures Performed Lithotripsy (2014). Discharge Vitals Temperature (Temporal Artery) 37 ???C Heart Rate (Peripheral) 89 Respiratory Rate 16 Blood Pressure 137/82 Height 174 cm Height 69 in Weight 64 kg Weight 141.096 lb BMI 21.14 Medications What How Much When Instructions Unchanged bifidobacterium-lactobacillus (Probiotic 10 Ultra Strength) 1 Capsules By [...] you for choosing us for your care. [facility] HospitalUrology Office/Clinic Noteon 29-19-4759Ytlitoi Office/Clinic NoteUrology Office/Clinic Note Chief Complaint possible UTI HPI Staff Pt is here for possible UTI. She is 6 weeks . Dx: gross hematuria, bladder pain and kidney stones. States that she has been having a pressure that makes her feel like she constantly has to void thisis chronic but worse last few days. Has [...] Sx persisted so AO sent 7d Keflex. SOIL TESTER spoke with her about possible IC. We discussed this at length today. Unfortunately there aren'tgreat studies about safety of Amitriptyline or Elmiron with . Anticholinergics should be used with caution. I did advise there are some reports of improvement w antihistamines, which are safe in . Pt will speak w OB and consider this. Can consider other meds once she has baby. Pt noticed worsening sx past few days. Was concerned for UTI since she's . UA looks totallynormal. No indication for Cx. Pt requesting to be able to submit UA throughout when she has sx flares. This is fine. Does not need appt every time (as this could delay evaluation). However once she is no longer , will need to follow office policy regarding appts. Pt verbalizes understanding and is grateful forplan while . 2. Kidney stones (N20.0: Calculus [...] E&M of Est. Patient Moderate 30-39 Min [address] Urnls Dip Stick Auto w/o Microscopy POC 42658 Follow-up With When Contact Information Call for UTI symptoms. Call to schedule follow up after . Additional Instructions: Patient Education Kidney Stones, Hhys-ug-Qorm Problem List/Past Medical History Ongoing Adjustment disorder [...] Protein Urine Dipstick: Negative (08/01/24 13:23:00) Specific Haiku Urine Dipstick: <=1.005 (08/01/24 13:23:00) Urine Appearance Urine Dipstick: Clear (08/01/24 13:23:00) Urine Color Urine Dipstick: Yellow (08/01/24 13:23:00) Urobilinogen Urine Dipstick: Normal 0.2-1 EU/dl (08/01/24 13:23:00) pH Urine Dipstick (more content not included)...[facility] City HospitalComment on above:Result Comment: Electronically Signed By: JONAH GOMEZ PA-C\.robbin\Date and Time Signed: 08/02/2515:14 EDTBI US BREAST LIMITED LEFT on 97-02-4528JN US BREAST LIMITED LEFTThis is a summary report. The complete report [...] BI-RADS 2 ELECTRONICALLY SIGNED BY: Jairo Hernández M.D.NormalNot AvailableBaylor Scott & White Medical [facility] 45-74-0168PucjoblckUzvvcfbdi From: Anayeli Laureano To: EU - Administrative; Sent: 03/01/2024 11:42:31 EST Show up: 03/22/2024 11:42:00 EST Subject: Ambulatory Reminder Due Date/Time: 05/28/2024 11:42:00 EST Reminder/Recall Patient needs scheduled with SURYA for a 3 month F/U, due back in May 2024May 3, 25 W/ [facility] WITH AUTO DIFFon 76-60-8256EBCFXAZFL ABSOLUTE TXAU9UKEK HealthcareBasophils/100 WBC (Bld) 0.4 %0.2 - 2.0 %NOMS HealthcareEosinophils/100 WBC (Bld)2.3 %0.9 - 7.0 %NOMS HealthcareErythrocyte distribution width (RBC) [Ratio]11.9 %11.0 - 15.0 %NOMS HealthcareHematocrit (Bld) [Volume fraction]42 %36.0 - 48.0 %[facility] Healthcare Hemoglobin (Bld) [Mass/Vol]14.4 g/dL12.0 - 16.0 g/dLNOOK HealthcareIMMATURE GRANULOCYTES ABS AUTO0.01NOMS HealthcareImmature granulocytes/100 WBC (Bld)0.2 % 0.0 - 0.5 %NOM HealthcareInterpretation and review of laboratory results AbnormalNOMS HealthcareLYMPHOCYTES ABSOLUTE HTOJ0IXHF HealthcareLymphocytes/100 WBC (Bld)42.5 %20.5 - 60.0 %NOMSaint Louis University Health Science CenterH (RBC) [Entitic mass]30.6 pg26.7 - 34.0 pgNOPike County Memorial HospitalHC (RBC) [Mass/Vol]34.3 g/dL29.9 - 35.2 g/dLNOCitizens Memorial HealthcareMCV (RBC) [Entitic vol]89.2 fL81.0 - 99.0 fLNOOK HealthcareMONOCYTES ABSOLUTE AUTO0.5NOMS HealthcareMonocytes/100 WBC (Bld)11 %1.7 - 12.0 %NOMS HealthcareNEUTROPHILS ABSOLUTE AUTO2.1NOMS HealthcareNeutrophils/100 WBC (Bld) 43.6 %43.0 - 75.0 %NOMS HealthcarePlatelet mean volume (Bld) [Entitic vol]9.4 fL Low9.5 - 13.5 fLNOMS [facility] EO #0.1NOMS HealthcareTB UPF468XQOF HealthcareTB RBC4.71NOMS HealthcareFAIRVIEW H[facility]ITAL WBC4.7NOMS HealthcareCLINISYNCNOMS [facility] Urineon 31-09-2723Mkqlbkrh identified Cx Nom (U)Microbiology PROCEDURE: Urine Culture [R1] SOURCE: U CleanCatch [...] or tested, I=Intermediate, ESBL=Extended spectrum beta-lactamase, R=Resistant, TFG=Thymidine-dependent strain, PAUL=Beta-lactamase positive, RIO=mcg/m;(mg/L), S*=Predicted susceptible interp, [...] Locations R1: This test was performed at: [facility], [address] [place] [address], [address] , , YqooyrIbkfbgTwin City HospitalComment on above:Performed By: #### [id number] #### [facility] [address] [place] [address]Jgoxmshnej macro (dipstick) panel (U)on 63-39-8503Ennllylwm, UA NegativeNegative - 4(70) +++ mg/dLNOMS HealthcareBlood, UANegativeNegative - 50 Allen/mcLNOOK HealthcareClarity, UAClearNOMS HealthcareColor, UAYellowNOMS HealthcareGlucose, UANegativeNegative - 2000(110) ++++ mg/dLNOOK Healthcare Interpretation and review of laboratory resultsNormalNOOK HealthcareKetones, UA NegativeNegative - 160(16) ++++ mg/dLNOMS HealthcareLeukocytes, UANegative Negative - 500+++ Andrei/mcLNOMS HealthcareNitrite, UANegativeNegative - Positive NOMS HealthcarepH, UA75 - 9NOMS HealthcareProtein, UANegativeNegative - 2000(20) ++++ mg/dLNOMS HealthcareSpec Grav, UA1.011 - 1.03NOMS HealthcareUrobilinogen, UA0.20.2 - 12 mg/dLNOMS HealthcareNOMS HealthcareIGP,APTIMA HPV,AGE GDLNon 56-40-8172NQC GDLN ACOG TESTINGNote.NOMS HealthcareComment on above:TESTS RESULT FLAG UNITS REF RANGE LAB Clinician Provided Cytology Information Source.............Cervix;Endocervix No. of containers..01 ThinPrep Vial Age Leslie TERRELL Dione... FLAG LEGEND: L-Low Normal,H-High Normal,LL-Alert Low,HH-Alert High <-Panic Low,>-Panic High,A-Abnormal,AA-Critical Abnormal Performed at: 01 =G [facility] [address] [place] [address] Cristiane Eduardo MD, IGP, RFX APTIMA HPV ASCUNote.NOMS HealthcareComment on above:TESTS RESULT FLAG UNITS REF RANGE LAB DIAGNOSIS: 02 NEGATIVE FOR INTRAEPITHELIAL LESION OR MALIGNANCY. Specimen adequacy: 02 Satisfactory for evaluation. Endocervical and/or squamous metaplastic cells (endocervical component) are present. Performed by: Jemma Sin Automation Tender ([facility]) . 02 Note: Note 03 [...] High,A-Abnormal,AA-Critical Abnormal Performed at: 02 KWCYT [facility] [facility] [address] [place] [address] Mayur Coleman MD, 03 WB [facility] [address] [address] Cristiane Eduardo MD, Performed at: =G - [facility] [address] [id number] Frit Mixer: Cristiane Eduardo MD, Phone: [phone] Performed at: [facility] [address] [place], [place] [id number] Frit Mixer: Mayur Coleman MD, Phone: [phone] BRUSH-SPATULA CERVIX ENDOCERVIX CLINISYNCNOOK HealthcareCytology Cervical or vaginal smear or scraping studyon 36-86-6154BKIG HealthcareNo Panel Informationon 54-05-3978MWCUMRQRFOYPFH EPIDERMIDIS, HAEMOLYTICUS, LUGDUNENSIS, SAPROPHYTICUS (URINA0.000NOMS Healthcare STAPHYLOCOCCUS EPIDERMIDIS, HAEMOLYTICUS, LUGDUNENSIS, SAPROPHYTICUS (URINANot detectedNOMS HealthcareURINARY TRACT INFECTION (HTRX)on 08-79-6997KINPOEHKRHDWR BAUMANII0.000NOMS HealthcareACINETOBACTER BAUMANIINot detectedNOMS Healthcare REAL ALBICANS, PARAPSILOSIS, TROPICALIS0.000NOMS HealthcareCANDIDA ALBICANS, PARAPSILOSIS, TROPICALISNot detectedNOMS HealthcareCANDIDA GLABRATA0.000NOMS HealthcareCANDIDA GLABRATANot detectedNOMS HealthcareCANDIDA KRUSEI0.000NOMS HealthcareCANDIDA KRUSEINot detectedNOMS HealthcareCITROBACTER FREUNDII0.000NOMS HealthcareCITROBACTER FREUNDIINot detectedNOMS HealthcareENTEROBACTER AEROGENES, CLOACAE0.000NOMS HealthcareENTEROBACTER AEROGENES, CLOACAENot detectedNOMS HealthcareENTEROCOCCUS FAECALIS, FAECIUM0.000N[facility] Healthcare ENTEROCOCCUS FAECALIS, FAECIUMNot detectedNOMS HealthcareESCHERICHIA COLI0.000 NOMS HealthcareESCHERICHIA COLINot detectedNOMS HealthcareKLEBSIELLA PNEUMONIAE, OXYTOCA0.000NOMS HealthcareKLEBSIELLA PNEUMONIAE, OXYTOCANot detectedNOMS HealthcareMORGANELLA MORGANII0.000NOMS HealthcareMORGANELLA MORGANIINot detected NOMS HealthcarePROTEUS MIRABILIS, VULGARIS0.000NOMS HealthcarePROTEUS MIRABILIS, VULGARISNot detectedNOMS HealthcarePSEUDOMONAS AERUGINOSA0.000NOMS Healthcare PSEUDOMONAS AERUGINOSANot detectedNOMS HealthcareSERRATIA MARCESCENS0.000NOMS HealthcareSERRATIA MARCESCENSNot detectedNOMS HealthcareSTAPHYLOCOCCUS AUREUS 0.000NOMS HealthcareSTAPHYLOCOCCUS AUREUSNot detectedNOMS Healthcare STREPTOCOCCUS AGALACTIAE (GROUP B STREP)0.000NOMS HealthcareSTREPTOCOCCUS AGALACTIAE (GROUP B STREP)Not detectedNOMS HealthcareSTREPTOCOCCUS PYOGENES (GROUP A STREP)0.000NOMS HealthcareSTREPTOCOCCUS PYOGENES (GROUP A STREP)Not detectedNOMS HealthcareNOMS HealthcareHCG ( test) Ql (U)on 01-11-2024 Interpretation and review of laboratory resultsNormalNOMS HealthcarePreg Test, UrNegativeNOMS HealthcareNOMS HealthcareUrinalysis macro (dipstick) panel (U)on 83-09-6486Hpdeqhbre, UANegativeNegative - 4(70) +++ mg/dLNOMS HealthcareBlood, UAPositiveNegative - 50 Allen/mcLNOMS HealthcareClarity, UAClearNOMS Healthcare Color, UAYellowNOMS HealthcareGlucose, UANegativeNegative - 2000(110) ++++ mg/dL NOMS HealthcareInterpretation and review of laboratory resultsAbnormalNOMS HealthcareKetones, UAPositiveNegative - 160(16) ++++ mg/dLNOMS Healthcare Leukocytes, UANegativeNegative - 500+++ Andrei/mcLNOMS HealthcareNitrite, UA NegativeNegative - PositiveNOMS HealthcarepH, UA6.55 - 9NOMS HealthcareProtein, UANegativeNegative - 2000(20) ++++ mg/dLNOMS HealthcareSpec Grav, UA1.0151 - 1.03NOMS HealthcareUrobilinogen, UA1.00.2 - 12 mg/dLNOMS HealthcareNOMS HealthcareCult,Urineon 26-23-1579Qlta,UrineSpecimen Description .URINE Unknown Culture NO SIGNIFICANT GROWTH Report Status FINAL 09/23/2023NoSelect Medical Specialty Hospital - Southeast OhioComment on above:Performed By: #### URC #### [facility] [address] [place], [place] [id number] Frit Mixer: Moisés Carl MD [address] [address] Frit Mixer: Wan Morales MDHCG, ,Urineon 29-62-6314Kqeq HCG ( test) Ql (U)NegativeNoalNorwalk Memorial HospitalComment on above:Result Comment: Specimens with hCG levels near the threshold of the test (25 mIU/mL) may give a negative or indeterminate result. In such cases, another test should be performed with a new specimen in 48-72 hours. If early is suspected clinically in this setting, correlation with quantitative serum b-hCG level is suggested.Performed By: #### UAX, UHCG, UMICAO #### [address] [address] Frit Mixer: Wan Morales MDUA w/Reflex Cultureon 79-35-8469Exlgyftdl, SemiQt,UrNegativeAbnormalNEGMercy Emanuel Medical CenterComment on above: Performed By: #### UAX, UHCG, UMICAO #### [address] [id number] Frit Mixer: Brynn Werner, UrineLARGEAbnormalNEGMerSan Francisco VA Medical CenterComment on above:Performed By: #### UAX, UHCG, UMICAO #### [address] [id number] Frit Mixer: MICKEY Wernerlarity (U)SLIGHTLY CLOUDYAbnormalCLEARMercy Emanuel Medical CenterComment on above:Performed By: #### UAX, UHCG, UMICAO #### [address] [address] Frit Mixer: MICKEY Wernerolor (U)RedAbnormalYELMerSan Francisco VA Medical CenterComment on above:Performed By: #### UAX, UHCG, UMICAO #### [address] [id number] Frit Mixer: Iman WernerINTERPRET WITH CAUTION DUE TO INTENSE COLOR OF URINE.NormalMercy Emanuel Medical CenterComment on above:Performed By: #### UAX, UHCG, UMICAO #### [address] [address] Frit Mixer: Wan Morales MDGlucose Ql (U)NegativeNormalNEGMerSan Francisco VA Medical CenterComment on above:Performed By: #### UAX, UHCG, UMICAO #### [address] [id number] Frit Mixer: Lucia Werner Ql (U)NegativeNormalNEGThe Surgical Hospital At SouthwoodsComment on above:Performed By: #### UAX, UHCG, UMICAO #### [place] [address] Frit Mixer: Wan Morales MDLeukocyte esterase Test strip Ql (U)MODERATE AbnormalNEGMerSan Francisco VA Medical CenterComment on above:Performed By: #### UAX, UHCG, UMICAO #### [place] [address] Frit Mixer: Shirley Werner,UrPositiveAbnormalNEGThe Surgical Hospital At SouthwoodsComment on above:Performed By: #### UAX, UHCG, UMICAO #### [place] [address] Frit Mixer: SONNY Werner,Ur7.8Zywgrg8.0-8.0The Surgical Hospital At SouthwoodsComment on above:Performed By: #### UAX, UHCG, UMICAO #### [place] [address] Frit Mixer: Rnee Werner Ql (U)3+ mg/dLAbnormalNEGThe Surgical Hospital At SouthwoodsComment on above:Performed By: #### UAX, UHCG, UMICAO #### [place] [address] Frit Mixer: Jared Werner. Haiku,Ur1.385Ogztar9.005-1.030The Surgical Hospital At SouthwoodsComment on above:Performed By: #### UAX, UHCG, UMICAO #### [facility] [id number] Frit Mixer: Wan Morales MDUrobilinogen,UrNormalNormal0.0-1.0The Surgical Hospital At SouthwoodsComment on above:Performed By: #### UAX, UHCG, UMICAO #### [place] [address] Frit Mixer: Wan Morales MDUrinalysis,Microon 68-71-2907DqtqzmuhJKGWOJWI AbnormalNONEMercy Emanuel Medical CenterComment on above:Performed By: #### UAX, UHCG, UMICAO #### [place] [address] Frit Mixer: Wan Morales MDEpithelial cells LM Ql (Urine sed)5 TO 10Normal 0-5The Surgical Hospital At SouthwoodsComment on above:Performed By: #### UAX, UHCG, UMICAO #### [place] [address] Frit Mixer: Wan Morales MDOther ObservationsCulture ordered based on defined criteria.AbnormalNREQThe Surgical Hospital At SouthwoodsComment on above: Performed By: #### UAX, UHCG, UMICAO #### [place] [id number] Frit Mixer: Brennan Werner RBC'sTOO NUMEROUS TO COUNTNormal0-2Mercy Emanuel Medical CenterComment on above:Performed By: #### UAX, UHCG, UMICAO #### [address] [id number] Frit Mixer: Brennan Werner WBC'sTOO NUMEROUS TO COUNTNormal0-5Mercy Emanuel Medical CenterComment on above:Performed By: #### UAX, [facility], [facility] #### [facility] [address] [place] [id number] Frit Mixer: Wan Morales MDUS RENAL COMPLETEon 78-37-3801LV RENAL COMPLETE EXAMINATION: RETROPERITONEAL ULTRASOUND OF THE [...] Signed by: Sri Galeas MD 06/20/21 Final resultNormalMercy Natchaug Hospital1. Nonobstructing left renal stones measuring up to 5 mm. 2. No hydronephrosis. [facility] CONSOLIDATEDEXAMINATION: RETROPERITONEAL ULTRASOUND OF THE KIDNEYS AND URINARY [...] the bladder. No significant post void residual. [facility] Sri Hall MD - 06/20/2021 EXAMINATION: RETROPERITONEAL ULTRASOUND OF [...] up to 5 mm. 2. No hydronephrosis. [employer] Phone: us RENAL COMPLETEOrdered By: Sri Galeas on [id number] Phone: us RENAL COMPLETEon 89-18-0840Kgnlqasnp Study observation (narrative)[employer] Phone: XR ABDOMEN (KUB) (SINGLE AP VIEW)on [id number] ABDOMEN (KUB) (SINGLE AP VIEW)EXAMINATION: ONE SUPINE XRAY VIEW(S) OF THE ABDOMEN [...] Herrera Signed by: See Herrera 06/19/21 Final resultNormalWestern Reserve HospitalNo definite evidence of renal or ureteral stones. [facility] RIS CONSOLIDATEDEXAMINATION: ONE SUPINE XRAY VIEW(S) OF THE ABDOMEN [...] urine collecting system. Osseous structures are normal. [facility] See Wilburn - 06/19/2021 EXAMINATION: ONE SUPINE XRAY VIEW(S) [...] definite evidence of renal or ureteral stones. [facility] HospitalAisleBuyer Phone: radiology Study observation (narrative)[facility] tibdit Phone: XR ABDOMEN (KUB) (SINGLE AP VIEW)Ordered By: See Herrera on [phone] tibdit Phone: Cult,Urineon [id number],UrineSpecimen Description .VOIDED URINE Culture NO SIGNIFICANT GROWTH Report Status FINAL 06/14/2021NoAdena Fayette Medical CenterComment on above: Performed By: #### URC #### [address] [id number] Frit Mixer: Moisés Carl MD [address] [place] [address] Frit Mixer: Filemon Gutiérrez MDUrinalysis w/ Microon 06-12-2021-----[facility] HospitalComment on above:Performed By: #### UAMIC #### [address] [place], [place] [address] Frit Mixer: Filemon Gutiérrez MDEpithelial cells LM Ql (Urine sed)2 TO 3Uduzzf7-97 Western Reserve HospitalComment on above:Performed By: #### UAMIC #### [facility] [address] [place] [address] [place] [address] Frit Mixer: Filemon Gutiérrez MDUrine RBC's0 TO 2Yvllih8-1AohkwSelect Medical Specialty Hospital - Trumbull Comment on above:Performed By: #### UAMIC #### [address] [place] [address] Frit Mixer: Filemon Gutiérrez MDUrine WBC's0 TO 3Fhjvrt9-2LgzimWestern Reserve Hospital Comment on above:Performed By: #### UAMIC #### [facility] [address] [place] [address] Dr. [place], [place] [id number] Frit Mixer: Filemon Gutiérrez MDBilirubin, SemiQt,UrNegativeNormalNEGMerWaterbury HospitalComment on above:Performed By: #### UAMIC #### [facility] [address] [place] [address] Dr. [place], [facility]83 Frit Mixer: Poppy Kayood, UrineNegativeProMedica Memorial Hospital Comment on above:Performed By: #### UAMIC #### [address] [place], [facility]83 Frit Mixer: MICKEY Kaylarity ()ClearNormalCLEARWestern Reserve Hospital Comment on above:Performed By: #### UAMIC #### [facility] [address] [place] [address] Dr. [place], [facility]83 Frit Mixer: MICKEY Kayolor (U)YellowNormalYMercy Health – The Jewish Hospital Comment on above:Performed By: #### UAMIC #### [facility] [address] [place] [address] Dr. [place], [facility]83 Frit Mixer: Filemon Gutiérrez MDGlucose Ql (U)NegativeNormalNEGWestern Reserve HospitalComment on above:Performed By: #### UAMIC #### [facility] [address] [place] [address] Dr. [place], [facility]83 Frit Mixer: Filemon Gutiérrez MDKetones Ql (U)NegativeNormalNEGWestern Reserve HospitalComment on above:Performed By: #### UAMIC #### [facility] [address] [place] [address] [place] [address] Frit Mixer: Filemon Gutiérrez MDLeukocyte esterase Test strip Ql (U)NegativeNormal NEGWestern Reserve HospitalComment on above:Performed By: #### UAMIC #### [facility] [address] [place] [address] Dr. [place], [place] [id number] Frit Mixer: Viki Kayite,UrNegativeNormalNEGMercy [facility] on above:Performed By: #### UAMIC #### [facility] [address] [place] [address] Dr. [place], [place] 7596383 Frit Mixer: SONNY Kay,Ur7.6Awztev7.0-9.0Mercy Natchaug HospitalComment on above:Performed By: #### UAMIC #### [facility] [address] [place] [address] [place] [address] Frit Mixer: SONNY Kayrotein Ql (U)NegativeNormalNEGMercy Toluca HospitalComment on above:Performed By: #### UAMIC #### [address] [place], [place] [address]683 Frit Mixer: LINH Kaypec. Haiku,Ur1.352Qlxgdv5.010-1.020Mercy Toluca HospitalComment on above:Performed By: #### UAMIC #### [facility] [address] [place] [address] Dr. [place], [place] 5555383 Frit Mixer: Angelica Kaybilinogen,UrNormalNormalNORMMercy Natchaug HospitalComment on above:Performed By: #### UAMIC #### [address] [place], [place] [address]183 Frit Mixer: Filemon Gutiérrez MDUrinalysis with Microscopicon 06-12-2021-[facility] HospitalBilirubin UrineNegativeNEGATIVEMercy HealthColor, UAYellowYellowMercy HealthEpithelial Cells UA2 TO 5Mercy HealthGlucose, UrNegativeNEGATIVEMercy HealthKetones Ql (U)NegativeNEGATIVEMercy HealthLeukocyte esterase Test strip Ql (U)NegativeNEGATIVEMercy HealthNitrite, UrineNegativeNEGATIVEMercy HealthpH, UA 7.0Mercy HealthProtein, UANegativeNEGATIVEMercy HealthRBC, UA0 TO 2[facility] Specific Haiku, UA1.010Mercy HealthTurbidity UAClearClearMercy HealthUrine Hgb NegativeNEGATIVEMercy HealthUrobilinogen, UrineNormalNormalMercy HealthWBC, UA0 TO 2Mercy HealthMercy HealthPAP ACOG PANEL 2: 21 to 29on 05-25-2021..NormalThe Miami Valley HospitalComment on above:Performed By: #### [id number] #### [facility] [address] [address] [address] J[address]ene StreetAge Gdln ACOG Ujtdmin51-06PhpfavXnsMemorial Health System Marietta Memorial HospitalComcorewell health blodgett hospital on above:Performed By: #### [id number] #### [facility] [address] [place] [address] Dr. Jolene StreetDIAGNOSIS:CommentCleveland Clinic Children's Hospital for Rehabilitation on above: Result Comment: NEGATIVE FOR INTRAEPITHELIAL LESION OR MALIGNANCY.Performed By: #### [id number] #### [facility] [address] [place] [address] Dr. Jolene StreetMethodology:CommentCleveland Clinic Children's Hospital for Rehabilitation on above: Result Comment: This liquid based ThinPrep(R) pap test was screened with the use of an image guided system.Performed By: #### [id number] #### [facility] [address] [place] [address] Dr. Jolene StreetNote:CommentCleveland Clinic Children's Hospital for Rehabilitation on above:Result Comment: The Pap smear is a screening test designed to aid in the detection of premalignant and malignant conditions of the uterine cervix. It is not a diagnostic procedure and should not be used as the sole means of detecting cervical cancer. Both false-positive and false-negative reports do occur. .Performed By: #### [id number] #### [facility] [address] [place] [address] Dr. Jolene StreetPerformed by:CommentCleveland Clinic Children's Hospital for Rehabilitation on above: Result Comment: Grisel Negron, Automation Tender (ASCP)Performed By: #### [id number] #### [facility] [address] [place], [place] [address] Dr. Jolene StreetReflex Criteria:CommentCleveland Clinic Children's Hospital for Rehabilitation on above:Result Comment: The HPV DNA reflex criteria were not met with this specimen result therefore, no HPV testing was performed. .Performed By: #### [id number] #### [facility] [address] [address] [address] Jolene StreetSpecimen adequacy:CommentMercy Health St. Elizabeth Boardman HospitalComcorewell health blodgett hospital on above:Result Comment: Satisfactory for evaluation. Endocervical and/or squamous metaplastic cells (endocervical component) are present.Performed By: #### [id number] #### [facility] [address] [address] Vital Signs Date TimeVital SignValuePerforming BwkolxpoxMiveqfcw92-77-9149 10:15-0400Body mass index (BMI) [Ratio]27 kg/d5Szrxu Maxim DO Work Phone: 1(714)093-[address] [place], [place] [address]Ldypjkeylb67-80-1933 10:150400Body hsekfi66.2 kg Jose Maxim DO Work Phone: [phone])[facility] [place], [place] [address]Rtrzodjbrw67-49-9170 10:15-0400Diastolic blood hhvqcjex87 mm[Hg]Jose Maxim DO Work Phone: 1(593)[facility] [place], [place] [address]Prwadjltnp18-88-9161 10:15-0400Systolic blood lzjkjiwo841 mm[Hg]Jose Maxim DO Work Phone: 1(852)[facility] [place], [place] [address]Ccaedmarrt84-88-6819 10:17-0400Body mass index (BMI) [Ratio]26.63 kg/u0YwgsvmysJake Gunter DISABILITY INSURANCE HEARING OFFICER Work Phone: [phone] [place], [place] [address]Uusrgaumfx84-55-1234 10:170400Body bewrpc13.11 kgKrmikael Gunter DISABILITY INSURANCE HEARING OFFICER Work Phone: 1(135)[facility] [place], [place] [address]Hesxsydlba23-61-1622 10:17-0400Diastolic blood rsplptef19 mm[Hg]Jake Gunter DISABILITY INSURANCE HEARING OFFICER Work Phone: [phone] [place], [place] [address]Utxobkjbdw70-62-0918 10:17-0400Systolic blood mm[Hg]Jake Gunter NP Work Phone: [facility] LouisBgwbpgqtlj90-76-8489 15:40-0400Body mass index (BMI) [Ratio]26.31 kg/m2Daja CUELLAR Work Phone: [facility] LouisYgolrqylwt10-61-8001 15:40-0400Body ansmlh28.2 kg Daja CUELLAR Work Phone: [phone]-[facility] LouisZafloytjbc69-99-8657 15:40-0400Diastolic blood hgxwrsuw77 mm[Hg]Daja CUELLAR Work Phone: [phone])216-[facility] LouisGypuktstzk82-53-9070 15:40-0400Systolic blood mm[Hg]Daja CUELLAR Work Phone: [phone] [place], [place] [address]Cfddydxpik39-24-0759 14:09-0400Body mass index (BMI) [Ratio]25.22 kg/a6Dihgs Maxim DO Work Phone: 1(303)[facility] [place], [place] [address]Sequefpbzr98-66-5858 14:09-0400Body .03 kgCorey Maxim DO Work Phone: [phone])264-[address] [place], [place] [address]Aqorvkpboq08-34-7549 14:09-0400Diastolic blood pbtinfjf57 mm[Hg]Jose Maxim DO Work Phone: 1(782)682-[address] [place], [place] [address]Wdwmucozsf72-72-2787 14:09-0400Systolic blood ernfhixz867 mm[Hg]Jose Maxim DO Work Phone: [phone])613-[address] [place], [place] [address]Hmcpmumukq77-33-2137 14:11-0400Body mass index (BMI) [Ratio]24.59 kg/x3Ospcq Maxim DO Work Phone: 1(658)346-[address] [place], [place] [address]Fslmubvnfb13-21-3826 14:11-0400Body ltxkby23.22 kgCorey Maxim DO Work Phone: 1(231)[facility] [place], [place] [address]Gnsvoabzyh81-91-1227 14:11-0400Diastolic blood yhwjqzhm82 mm[Hg]Jose Maxim DO Work Phone: 1(171)659-[address] [place], [place] [address]Kdgjycymgf79-16-0214 14:11-0400Systolic blood mm[Hg]Jose Maxim DO Work Phone: [facility] LouisSilctmyhjx54-33-2125 14:44-0400Body mass index (BMI) [Ratio]24 kg/e7Irgjv Maxim DO Work Phone: [facility] LouisYntypxterb42-68-4261 14:44-0400Body jxlzul84.51 kgCorey Maxim DO Work Phone: [facility] LouisIsdsbbvkox02-80-4518 14:44-0400Diastolic blood ldgbxxro45 mm[Hg]Jose Maxim DO Work Phone: [facility] LouisWwjqiroiqq60-88-5418 14:44-0400Systolic blood lvaaauwd199 mm[Hg]Jose Maxim DO Work Phone: [phone] [place], [place] [address]Gmalglzzux96-87-4559 15:30-0400Body mass index (BMI) [Ratio]23.34 kg/m2Amy Connor PA Work Phone: 1(057)802-[address] [place], [place] [address]Tspwhlfjeq53-76-2279 15:30-0400Body qxjzov16.59 kgAmy Connor PA Work Phone: 1(810)058-[address] [place], [place] [address]Ltlbepfwth45-64-9670 15:30-0400Diastolic blood mm[Hg]Daja Connor PA Work Phone: [facility] LouisIszepjoeki30-84-4425 15:30-0400Systolic blood mm[Hg]Daja Connor PA Work Phone: [facility] LouisDecyarbsrq53-54-4597 14:04-0400Body mass index (BMI) [Ratio]22.99 kg/j5Bdvpk Maxim DO Work Phone: 1([phone])430-[address] [place], [place] [address]Rhppndalcg68-53-8100 14:04-0400Body .59 kgCorey Maxim DO Work Phone: [facility] LouisStyeyejhwd13-71-4583 14:04-0400Diastolic blood qoukienh94 mm[Hg]Jose Maxim DO Work Phone: [facility] LouisCwcdiynphw76-94-6871 14:04-0400Systolic blood qqucabbt866 mm[Hg]Jose Maxim DO Work Phone: [facility] LouisBfhqgsluvv84-22-2976 13:39-0400Body mass index (BMI) [Ratio]22.87 kg/m2[facility]05-08-2025 13:39-0400Body .22 kgNoFreeman [facility]opa[facility] & [facility]05-08-2025 13:39-0400Diastolic blood dqzwhirc43 mm[Hg][facility]05-08-2025 13:39-0400Systolic blood yjuewzlg446 mm[Hg][facility]04-07-2025 08:15-0400Body mrrwty749.2 cmSri Ramírez MD Work Phone: [facility] LouisLmdxypwagc76-14-3269 08:15-0400Body mass index (BMI) [Ratio]23.05 kg/m2Sri Ramírez MD Work Phone: [facility] LouisIpuxltrytn14-85-1569 08:15-0400Body ywfmyd00.77 kgSri Ramírez MD Work Phone: [facility] LouisUzpzmvvuzi83-64-2960 08:15-0400Diastolic blood yxmpolzt77 mm[Hg]Sri Ramírez MD Work Phone: [facility] LouisJuynrofpvy90-61-6123 08:15-0400Heart rate92 /min Sri Ramírez MD Work Phone: [facility] LouisKtzafahejm00-74-8446 08:15-0400Respiratory rate18 /minSri Ramírez MD Work Phone: [facility] LouisWfutrvghex48-08-9612 08:15-4447WfI2% (BldA) [Mass fraction]99 %Sri Ramírez MD Work Phone: [facility] LouisAjwsimvigp25-45-2713 08:15-0400Systolic blood goxrrvxn170 mm[Hg]Sri Ramírez MD Work Phone: [facility] LouisHntwarlygx10-68-2868 08:03-0500Body mass index (BMI) [Ratio]22.96 kg/o9Qbxloj [facility] Citygabriella HO Work Phone: [facility] LouisNsjvpazdrk38-44-4837 08:03-0500Body afjurwadluu90 [degF]Reggie Donovan DISABILITY INSURANCE HEARING OFFICER Work Phone: [facility] LouisEfxobevynb26-07-1850 08:03-0500Body eoppfq62.5 kg Reggie Donovan DISABILITY INSURANCE HEARING OFFICER Work Phone: [facility] LouisNscafjzjus79-13-0174 08:03-0500Diastolic blood whkddnap37 mm[Hg]Reggie Donovan DISABILITY INSURANCE HEARING OFFICER Work Phone: [facility] LouisLdwkdbbchm86-88-0555 08:03-0500Heart rate96 /min Reggie Donovan DISABILITY INSURANCE HEARING OFFICER Work Phone: [facility] LouisIimywyddta26-09-3333 08:03-5300QcP2% (BldA) [Mass fraction]98 %Reggie Donovan DISABILITY INSURANCE HEARING OFFICER Work Phone: [facility] LouisVhbceyumav95-31-5437 08:03-0500Systolic blood trraayka896 mm[Hg]Reggie Donovan DISABILITY INSURANCE HEARING OFFICER Work Phone: [facility] LouisWmfqlhgwai50-35-8594 09:03-0500Body mass index (BMI) [Ratio]22.57 kg/m2Amy Connor PA Work Phone: [facility] LouisCcpwhtgxox66-01-4326 09:03-0500Body ypgfpp40.37 kgAmy Bedford PA Work Phone: [facility] LouisFvpmvoparo21-95-5802 09:03-0500Diastolic blood sdrgyuio68 mm[Hg]Daja Connor PA Work Phone: [facility] LouisDfmauwcuae31-21-6379 09:03-0500Systolic blood efrxdjdf740 mm[Hg]Daja Connor PA Work Phone: [facility] LouisOwstdhcywr69-53-1007 14:37-0500Body mass index (BMI) [Ratio]22.57 kg/y2Uxbpu Maxim DO Work Phone: [facility] LouisFigribdhzn86-23-5872 14:37-0500Body .37 kgCorey Maxim DO Work Phone: [facility] LouisApmcsahpgu14-98-7839 14:37-0500Diastolic blood lzodvkkb89 mm[Hg]Jose Maxim DO Work Phone: [facility] LouisFbdbexrcfd46-02-2075 14:37-0500Systolic blood cxckbihv763 mm[Hg]Jose Maxim DO Work Phone: [facility] LouisSjkenrbbcs47-21-2630 11:20-0500Body mass index (BMI) [Ratio]22.55 kg/r2Sijla Maxim DO Work Phone: 1(987)458-[address] [place], [place] [address]Cdlecghrbp95-71-4776 11:20-0500Body .32 kgCorey Maxim DO Work Phone: 1(678)970-[address] [place] [address]-27-2024 11:20-0500Diastolic blood axhmcmvl26 mm[Hg]Jose Maxim DO Work Phone: 1(146)350-[address] [place], [place] [address]Kdehxjwnln18-89-1149 11:20-0500Systolic blood nzysfakc382 mm[Hg]Jose Maxim DO Work Phone: 1(868)720-[address] [place], [place] [address]Uivbyzfdvz19-36-5939 10:47-0500Blood Pressure LocationAurora Orzech [facility]11-19-2024 10:47-0500Diastolic blood luawwkyt02 mm[Hg]Bonita Orzech [facility]11-19-2024 10:47-0500Heart rate79 /minAurora Orzech [facility]11-19-2024 10:47-0500Respiratory rate19 /minAurora Orzech [facility]11-19-2024 10:47-0500Systolic blood xbndtuby567 mm[Hg]Bonita Orzech [facility]11-04-2024 11:11-0500Body mass index (BMI) [Ratio]22.4 kg/b8Yzzkr Maxim DO Work Phone: [facility] LouisZreuoioubg15-88-5956 11:11-0500Body fzteid89.86 kgCorey Maxim DO Work Phone: [facility] LouisFyrspvfopl02-45-9661 11:11-0500Diastolic blood ssmhhawc37 mm[Hg]Jose Maxim DO Work Phone: 1(757)380-[facility] LouisAkvcgtnvzi39-28-5363 11:11-0500Systolic blood vurescrf511 mm[Hg]Jose Maxim DO Work Phone: 1(470)041-[facility] LouisOnqyeioskm53-81-3040 14:13-0400Body mass index (BMI) [Ratio]22.08 kg/m2Amy Connor CUELLAR Work Phone: [facility] LouisXjgffpyisx32-76-9717 14:13-0400Body prswxe22.96 kgAmy Connor CUELLAR Work Phone: 1(620)782-[address] [place], [place] [address]Wywodcljdg96-83-8925 14:13-0400Diastolic blood mm[Hg]Daja CUELLAR Work Phone: [facility] LouisWnbtdradyn90-18-1425 14:13-0400Systolic blood tgmtuwec509 mm[Hg]Daja CUELLAR Work Phone: 1(140)654-[facility] LouisJppkdvwkqr34-76-3540 11:52-0400Body mass index (BMI) [Ratio]22.42 kg/f3Vigev Maxim DO Work Phone: 1(828)516-[address] [place], [place] [address]Nahqabcvyi62-92-1953 11:52-0400Body koacgu53.92 kgCorey Maxim DO Work Phone: [facility] LouisZauggkolkb56-81-9068 11:52-0400Diastolic blood zyqlxnbl58 mm[Hg]Jose Maxim DO Work Phone: 1(140)500-[facility] CenterTen[facility] St[facility] LouisJfuzditrpk49-83-7882 11:52-0400Systolic blood ybzskskm681 mm[Hg]Jose Maxim DO Work Phone: [facility] Healthcare Encounters Encounter DateEncounter TypeCare ProviderFacilityStart: 01-24-2025 End: 18-57-8574Qkbdyzla flow sheetCorey Maxim DO Work Phone: [facility] Beverly OBGYNComment on above:Encounter for ultrasound recheck of choroid plexus cyst, antepartum ([facility]); Third trimester ([facility]); 31 weeks gestation of ([facility]); size inconsistent with dates ([facility])Start: 01-24-2025 End: 30-00-9879evhkchpkhjLXRBW FAZIONot AvailableStart: 01-09-2025 End: 53-83-8521Iwhyxg Jv Gunter NP Work Phone: [facility] OBGYNStart: 01-09-2025 End: 64-40-6055Sojiho Jv Gunter NP Work Phone: [facility] OBGYNStart: 01-09-2025 End: 63-29-6003Vtwrgter flow sheetJake Gunter NP Work Phone: [facility] Vanesa OBGYNComment on above:Third trimester ([facility]); 29 weeks gestation of ([facility]); Choroid plexus cystStart: 01-09-2025 End: 29-32-1762wtsktalwzzAEQDCXBH EBERLYNot AvailableStart: 12-28-2024 End: 31-97-3073qeoupthjnjWCU RAMEYNot AvailableStart: 12-28-2024 End: 19-89-1312Wswomdui flow Debby CUELLAR Work Phone: [facility] Vanesa OBGYNComment on above:Second trimester ([facility]); 27 weeks gestation of ([facility])Start: 12-28-2024 End: 99-44-3928Laiudf Minnie CUELLAR Work Phone: [facility]anesa OBGYNStart: 12-28-2024 End: 34-45-1163Mqqyou Minnie CUELLAR Work Phone: [facility]a OBGYNStart: 12-10-2024 End: 42-80-3298Aqrnhsyfr Result EncounterGeneric External Data ProviderNOMS External Department UnsolicitedStart: 12-10-2024 End: 78-46-8867Vbdtfvhee Result EncounterGeneric External Data ProviderNOMS External Department UnsolicitedStart: 12-05-2024 End: 07-79-5057Iurgcylls Result EncounterGeneric External Data ProviderNOMS External Department UnsolicitedStart: 12-05-2024 End: 19-95-1302Mfnxqliij Result EncounterGeneric External Data ProviderNOMS External Department UnsolicitedStart: 12-05-2024 End: 76-12-0840Innesdjj flow sheetCorey Maxim DO Work Phone: [facility] Vanesa OBGYNComment on above:Acne, unspecified acne type (Primary Dx); Second trimester ([facility]); 24 weeks gestation of ([facility]); Diabetes mellitus screening; Screening, , for anatomic survey ([facility])Start: 12-05-2024 End: 20-38-5815vyndynebcoSARLE FAZIONot AvailableStart: 11-07-2024 End: 44-73-8700Waudwydnl Result EncounterGeneric External Data ProviderNOMS External Department UnsolicitedStart: 11-07-2024 End: 55-50-6406Vzeesduff Result EncounterGeneric External Data ProviderNOMS External Department UnsolicitedStart: 11-07-2024 End: 84-51-1008Abzrxqww flow sheetCorey Maxim DO Work Phone: noMS Vanesa OBGYNComment on above:Screening, , for anatomic survey ([facility]) (Primary Dx); Second trimester ([facility]); 20 weeks gestation of ([facility])Start: 11-07-2024 End: 85-00-0976nnstviqhmrOYGJE FAZIONot AvailableStart: 11-02-2024 End: 14-72-7222Yzfxywmur Result EncounterCorey Maxim DO Work Phone: noMS External Department UnsolicitedStart: 11-02-2024 End: 08-46-8212Rjqwpzbme Result EncounterCorey Maxim DO Work Phone: [facility] External Department UnsolicitedStart: 10-10-2024 End: 51-81-2335Zijekhli flow sheetCorey Maxim DO Work Phone: [facility] BCP OBComment on above:Second trimester ([facility]); 16 weeks gestation of ([facility]); Screening, , for anatomic survey ([facility])Start: 10-10-2024 End: 95-15-5470vqevcplfzcSRKIK FAZIONot AvailableStart: 10-10-2024 End: 11-43-4435Ttqaav flowsheetCorey Maxim DO Work Phone: [facility] BCP OBStart: 10-10-2024 End: 78-05-5506Dbkchd flowsheetCorey Maxim DO Work Phone: [facility] BCP OBStart: 09-28-2024 End: 83-52-0257Zhwpyo outpatient visit 15 minutesDaja CUELLAR Work Phone: [facility] BCP OBComment on above:Second trimester ([facility]); 14 weeks gestation of ([facility]); Screen for STD (sexually transmitted disease)Start: 09-28-2024 End: 53-05-4727zetixezxblSOO RAMEYNot AvailableStart: 09-28-2024 End: 26-95-9763Bjklbh flowsGermania CUELLAR Work Phone: [facility] BCP OBStart: 09-28-2024 End: 89-06-1204Rhwebj flowsGermania CUELLAR Work Phone: [facility] BCP OBStart: 09-28-2024 End: 07-06-3718Vfaedtql Result EncounterDaja CUELLAR Work Phone: [facility] External Department UnsolicitedStart: 09-13-2024 End: 11-03-6844Llexbn flowsheetCorey Maxim DO Work Phone: [facility] BCP OBStart: 09-13-2024 End: 68-96-1601Yfbbad flowsheetCorey Maxim DO Work Phone: noms BCP OBStart: 09-13-2024 End: 20-91-6605egrxokbsasQAVRI FAZIONot AvailableStart: 09-13-2024 End: 69-87-8416Frhysmno flow sheetCorey Maxim DO Work Phone: noms BCP OBComment on above:First trimester ; 12 weeks gestation of ; Urinary tract infection in mother during , antepartumStart: 08-22-2024 End: 11-13-4369Lcsguzzxf Result EncounterCorey Maxim DO Work Phone: noms External Department UnsolicitedStart: 08-22-2024 End: 23-77-7660Tdkqstngl Result EncounterCorey Maxim DO Work Phone: noms External Department UnsolicitedStart: 08-18-2024 End: 44-45-4060vkjzohekcbVJK Berenice AvailableStart: 08-18-2024 End: 43-49-8267Yjvrlk outpatient visit 5 minutesNoms Bcp Ob Maxim NurseNOMS BCP OBComment on above:[place]: 8c7eHaiix: 08-18-2024 End: 57-23-6991zzcpxonhlcRQV RAMEYNot AvailableStart: 08-12-2024 End: 81-49-7321Yaoqztdbw Result EncounterGeneric External Data ProviderNOMS External Department UnsolicitedStart: 08-12-2024 End: 34-39-9743Kyfxonzfa Result EncounterGeneric External Data ProviderNOMS External Department UnsolicitedStart: 08-12-2024 End: 94-37-0544Gdbpbsfr Result EncounterDaja Ryan PA Work Phone: noms External Department UnsolicitedStart: 08-02-2024 ambulatoryAurora X OrzechFacility:[place]Start: 08-01-2024 End: 50-71-9582jtouotqxbrUYBHBNRQ E PERRYFacility:[place]Start: 07-20-2024 End: 16-32-7139efkpchxxarSZTD F BOWERNot AvailableStart: 07-18-2024 End: 66-74-6177Tmmcuj flowsAlonso Ramírez MD Work Phone: [facility] FNR FMStart: 07-18-2024 End: 28-49-6343Suxnwc flowsAlonso Ramírez MD Work Phone: [facility] FNR FMStart: 07-18-2024 End: 68-31-5654Njljuu outpatient visit 15 minutesSri Ramírez MD Work Phone: NOMS FNR FMComment on above:Mass of lower outer quadrant of left breast (Primary Dx)Start: 07-18-2024 End: 59-25-5364hbrjzvkdumKHWK F BOWERNot AvailableStart: 06-10-2024 End: 19-56-5011Tvkanh flowsheetEncompass Health Rehabilitation Hospital Of Scottsdalemane Donovan DISABILITY INSURANCE HEARING OFFICER Work Phone: NOMS FNR FMStart: 06-10-2024 End: 13-28-0395Zzbjei flowsheetEncompass Health Rehabilitation Hospital Of Scottsdalemane Qustodio DISABILITY INSURANCE HEARING OFFICER Work Phone: NOMS FNR FMStart: 06-10-2024 End: 58-15-8316Ctuisjark encounterSri Ramírez MD Work Phone: NOMS FNR FMStart: 06-10-2024 End: 71-72-8011Rtsxkh outpatient visit 25 minutesReggie Donovan DISABILITY INSURANCE HEARING OFFICER Work Phone: NOMS FNR FMComment on above:Encounter for removal of sutures (Primary Dx); Cellulitis of finger of right handStart: 06-10-2024 End: 00-64-0157aivlrwiihzONREUT MAJORSNot AvailableStart: 05-23-2024 End: 66-41-4273Grvxsi Minnie Ryan PA Work Phone: NOMS BCP OBStart: 05-23-2024 End: 96-36-6640Bkpfwl flowsGermanai Ryan PA Work Phone: NOMS BCP OBStart: 17-98-1022lucszpejytCRWSZYJN E PATRICIA Facility:[facility]Start: 05-23-2024 End: 79-17-3142maqwddjkqtDEP RAMEYNot AvailableStart: 05-23-2024 End: 93-13-8464Ggoaoi outpatient visit 15 minutesAmy Connor CUELLAR Work Phone: noms [facility] OBComment on above:Vaginal discharge; Vaginal burningStart: 05-16-2024 End: 41-77-0623mtoyzcpvqrYRPUEHFJ E PERRYFacility:[facility] BellevueStart: 05-16-2024 End: 65-98-1492Zhhsinx encounter procedureJENNIFER E PATRICIA [facility] Vanesa start: 04-20-2024 End: 46-43-4923Wijhvk flowsheetDaja CUELLAR Work Phone: noms [facility] OBStart: 04-20-2024 End: 00-31-0336Zlbrpk crisheetDaja CUELLAR Work Phone: noms [facility] OBStart: 04-20-2024 End: 09-84-5102Apddtw follow up visit related to original pxCorey Maxim DO Work Phone: noms [facility] OBComment on above:Postoperative examination Start: 04-20-2024 End: 81-37-8784yftmkonvqdHUHAR FAZIONot AvailableStart: 04-01-2024 End: 36-47-4956Nysvpwvvl Result EncounterGeneric External Data ProviderNOMS External Department UnsolicitedStart: 04-01-2024 End: 34-89-4627Ikeumcqbt Result EncounterGeneric External Data ProviderNOMS External Department UnsolicitedStart: 03-21-2024 End: 62-66-0086bozbrdinlnCahsuy J GaleaFacility:FTMCStart: 03-21-2024 End: 65-60-4775Hdq Drop offMitra Ellis [facility] Start: 03-21-2024 End: 16-88-7269hluokbukrbQbbtri X OrzechFacility:EU BellevueStart: 03-21-2024 End: 12-50-9138Uysbdgt encounter procedureAurora X Orzech [facility] start: 03-09-2024 End: 74-87-5739Jruair flowsheetCorey Maxim DO Work Phone: noms BCP OBStart: 03-09-2024 End: 10-52-3191Cfcvff flowsheetCorey Maxim DO Work Phone: noms BCP OBStart: 03-09-2024 End: 29-33-5963Jznudc outpatient visit 15 minutesCorey Maxim DO Work Phone: noms BCP OBComment on above:Pre-op evaluation; Pelvic pain in female; Bacterial vaginosisStart: 03-09-2024 End: 36-08-4471Nchduoihuwdem examination doneCorey Maxim DO Work Phone: noMS HealthcareStart: 03-09-2024 End: 64-92-1306fdrkdiigywTOORY FAZIONot AvailableStart: 03-01-2024 End: 59-66-6839tebzsldrbgWthjui X OrzechFacility:EU BellevueStart: 03-01-2024 End: 02-35-3874Qcjyzob encounter procedureAurora X Orzech [facility] start: 02-15-2024 End: 82-89-5333Xwqpmp flowsheetCorey Maxim DO Work Phone: noms BCP OBStart: 02-15-2024 End: 15-75-7618Efeyud flowsheetCorey Maxim DO Work Phone: noMS BCP OBStart: 02-15-2024 End: 17-66-6066Ubumuu outpatient visit 15 minutesCorey Maxim DO Work Phone: noms BCP OBComment on above:Bacterial vaginosis; Urinary tract infection without hematuria, site unspecified; Vaginal odor; Bacterial infection due to mycoplasmaStart: 02-15-2024 End: 34-85-7465bgtgpoiaswSTEXP FAZIONot AvailableStart: 01-27-2024 End: 81-42-7863Tjgcao flowsGermania CUELLAR Work Phone: noms [facility] OBStart: 01-27-2024 End: 53-83-2033Oaypgz flowsheetDaja CUELLAR Work Phone: noms [facility] OBStart: 01-27-2024 End: 57-07-6405Dngrkwwwx Result EncounterGeneric External Data ProviderNOMS External Department UnsolicitedStart: 01-27-2024 End: 77-32-5910Wfcwtne encounter procedureDaja CUELLAR Work Phone: noms [facility] Work Phone: Start: 01-27-2024 End: 89-72-1413Fchabgxp preventive med est patient 18-39 yrsDaja CUELLAR Work Phone: noms [facility] OBComment on above:Well woman exam with routine gynecological examStart: 01-27-2024 End: 28-91-3281blwtymdlvuFWV RAMEYNot AvailableStart: 01-11-2024 End: 43-50-5552Vmjuln flowsheetCorey Maxim DO Work Phone: noms [facility] OBStart: 01-11-2024 End: 21-52-0860Dgiaiuhe Result EncounterCorey Maxim DO Work Phone: NOOO External Department UnsolicitedStart: 01-11-2024 End: 02-20-8700Mtzjaznn Result EncounterCorey Maxim DO Work Phone: noms External Department UnsolicitedStart: 01-11-2024 End: 36-04-4197Xawsjl outpatient visit 15 minutesCorey Maxim DO Work Phone: noms BCP OBComment on above:Pelvic pain in female Start: 09-22-2023 End: 33-26-8741Ptcftarge department patient visitSRI Chaud[facility]ary [facility] CenterStart: 05-03-2022 End: 43-84-2125cjehzruoudXS MARY BOWERFacility:M8Dubkz: 06-19-2021 End: 71-31-8210opsjqmzsaxAVFZVJXDetroit Receiving Hospital HospitalStart: 06-19-2021 End: 75-41-2368Ftwmzijphe hospital visit by Steph Wilcox [address] [place] [address] RadiologyComment on above:Ureteral stone with hydronephrosis Ureteral stone with hydronephrosis; Suprapubic pain; Dysuria; Urgency of urinationStart: 06-12-2021 End: 82-16-9802cdqpmamhgyIRFOWCJDetroit Receiving Hospital HospitalStart: 06-12-2021 End: 62-89-2161Zbykasfttl hospital visit by Reji Ramírez MD Work Phone: mthz LaboratoryComment on above:Ureteral stone with hydronephrosis; Suprapubic pain; Dysuria; Urgency of urinationStart: 05-21-2021 End: 33-35-7545mlnmzvtrvbQA JOSE FAZIOFacility:H1 Procedures DateProcedureProcedure DetailPerforming ClinicianStart: 89-02-2408Vfxxq dip stick/tablet rgnt non-auto w/o micrscpCorey Maxim DO Work Phone: Start: 27-21-0001Tpgwk dip stick/tablet rgnt non-auto w/o micrscpKrmikael Gunter NP Work Phone: Start: 86-37-6268Devnq dip stick/tablet rgnt non-auto w/o micrscpAmy Connor PA Work Phone: Start: 48-30-0266VTBVQUZ 1 HOURCorey Maxim DO Work Phone: Start: 65-48-3379JU for multiple gestation limitedGeneric External Data ProviderStart: 17-63-2167Eicdu dip stick/tablet rgnt non-auto w/o micrscpCorey Maxim DO Work Phone: Start: 01-14-7501Wubwj dip stick/tablet rgnt non-auto w/o micrscpCorey Maxim DO Work Phone: Start: 69-76-5413WV OB ANATOMYGeneric External Data ProviderStart: 81-08-2946ZK OB CERVICAL LENGTHCorey Maxim DO Work Phone: Start: 35-90-8018FRZ, SERUM, OPEN SPINA BIFIDAGeneric External Data ProviderStart: 69-94-2893Vrvyn dip stick/tablet rgnt non-auto w/o micrscpCorey Maxim DO Work Phone: Start: 34-60-4858GVHWVMIWJ VAGINITIS (HTRX)Daja CUELLAR Work Phone: Start: 99-01-5237Gjcdh dip stick/tablet rgnt non-auto w/o micrscpAmy Connor CUELLAR Work Phone: Start: 14-08-1976Kwkpv dip stick/tablet rgnt non-auto w/o micrscpCorey Maxim DO Work Phone: Start: 15-22-2670TAF TESTGeneric External Data ProviderStart: 99-35-0766Wfqbn dip stick/tablet rgnt non-auto w/o micrscpCorey Maxim DO Work Phone: Start: 64-67-8520Mwexiqp bacterial quanttative colony count urineDaja CUELLAR Work Phone: Start: 01-74-2118AYXKQ CULTURE - FRMCGeneric External Data ProviderStart: 13-98-6554OVD CBC WITH AUTO DIFFCorey Maxim DO Work Phone: Start: 14-48-5661Nzkga dip stick/tablet rgnt non-auto w/o micrscpCorey Maxim DO Work Phone: Start: 31-99-9482BGX,APTIMA HPV,AGE GDLNDaja CUELLAR Work Phone: Start: 83-17-3613Njpc cerv/vag auto thin layer prep mnl screenCorey Maxim DO Work Phone: Start: 17-98-6936HDISROV TRACT INFECTION (HTRX)Jose Maxim DO Work Phone: Start: 01-11-2024 End: 04-53-6007Ydliq dip stick/tablet rgnt non-auto w/o micrscpCorey Maxim DO Work Phone: Start: 78-78-5199Sjmnujccpl exam abdomen 1 viewBethany Americo AddictiveN EXENDIS Work Phone: Start: 68-03-3559Ls retroperitoneal real time w/image completeBeany Americo AddictiveN - Clinithink Work Phone: Start: 50-19-9205Pvdvd dip stick/tablet reagent auto microscopyBeany Americo AddictiveN EXENDIS Work Phone: Start: 69-66-5202LwedtbwvrpxOkpuhq Orzech Plan of Treatment DateCare ActivityDetailAuthorStart: 86-62-2374JFqX/Tdap/Td vaccine (8 - Td or Tdap)DTaP/Tdap/Td vaccine (8 - Td or Tdap)[facility] HospitalStart: 02-06-2025 End: 09-65-5614Rlutvtb encounter procedureNOMS BCP OBStart: 01-24-2025 End: 67-71-1392UH for pregnancyNOMS HealthcareComment on above:Expected: 01/24/2025, Expires: 05/27/2025Start: 01-24-2025 End: 82-17-7384Kbnfcyd encounter mpfkhocwz47/14/2025 10:00 AM EDT Routine NOMS Vanesa ROBIN [address] [facility] [place] [address] Jose Pan DO [address] [place] [address] NOMGabriella BOWERStart: 01-24-2025 End: 31-27-5553Ugfngcbwxvuy / ancillary services /14/2025 9:30 AM EDT Ancillary Procedure NOMS Vanesa ROBIN [address] [facility] [place] [phone] Beverly OBGYNStart: 01-23-2025 End: 80-88-2550SD for pregnancyUS OB limited 1+ fetuses Imaging Routine Encounter for ultrasound recheck of choroid plexus cyst, antepartum ([facility]) Expected: 01/23/2025 (Approximate), Expires: 01/23/2026[facility] Work Phone: comment on above:Expected: 01/23/2025 (Approximate), Expires: 01/23/2026Start: 01-09-2025 End: 65-09-1468HO for pregnancyUS OB limited 1+ fetuses Imaging Routine Choroid plexus cyst Expected: 01/09/2025, Expires: 04/10/2025[facility] Healthcare Work Phone: comment on above:Expected: 01/09/2025, Expires: 04/10/2025Start: 01-09-2025 End: 94-12-5481Xjwvyka encounter procedureNOMS Vanesa OBGYNComment on above: ArrivedStart: 12-28-2024 End: 94-97-1363Jcrqrxt encounter kdnenreep53/17/2025 1:20 PM EDT Routine NOMGabriella ROBIN [address] [facility] [address] [place], [id number] Jose Pan DO [address] [place] [address] NOMS Vanesa OBGYNStart: 12-12-2024 Influenza vaccinationNOOK HealthcareStart: 12-08-2024 End: 10-09-9782VP for pregnancyUS OB 14+ weeks anatomy scan Imaging Routine Screening, , for anatomic survey ([facility]) Expected: 12/08/2024, Expires: 02/07/2025[facility] Healthcare Work Phone: comment on above:Expected: 12/08/2024, Expires: 02/07/2025Start: 12-05-2024 End: 49-41-0646YFJ panel - Blood by Automated countCBC Lab Routine Diabetes mellitus screening Expected: 12/05/2024 (Approximate), Expires: 12/05/2025[facility] Work Phone: comment on above:Expected: 12/05/2024 (Approximate), Expires: 12/05/2025Start: 12-05-2024 End: 76-37-0359Lnpafyrbxzs of glucose 1 hour after glucose challenge for glucose tolerance testGlucose tolerance, 1 hour Lab Routine Diabetes mellitus screening Expected: 12/05/2024 (Approximate), Expires: 12/05/2025[facility] HealthcareComment on above:Expected: 12/05/2024 (Approximate), Expires: 12/05/2025Start: 12-05-2024 End: 96-47-9043JU for pregnancyUS OB 14+ weeks anatomy scan Imaging Routine Screening, , for anatomic survey ([facility]) Expected: 12/05/2024, Expires: 03/07/2025[facility] Work Phone: comment on above:Expected: 12/05/2024, Expires: 03/07/2025Start: 12-05-2024 End: 11-43-3860Oveeproohomt / ancillary services zcorkvhkag01/25/2025 1:00 PM EDT Ancillary Procedure [facility] Vanesa OBGYN [address] [place] [address] [place] [address] NZFS Vanesa OBGYNStart: 11-07-2024 End: 11-67-7224Ybyvokk encounter procedureNOMS BCP OBStart: 10-10-2024 End: 40-52-6284Editbzd encounter procedureNOMS BCP OBComment on above:Arrived Start: 10-10-2024 End: 40-48-2672Dhvij fetoprotein, maternalAlpha fetoprotein, maternal Lab Routine Second trimester ([facility]) Expected: 10/10/2024 (Approximate), Expires: 12/10/2024[facility] HealthcareComment on above:Expected: 10/10/2024 (Approximate), Expires: 12/10/2024Start: 10-10-2024 End: 33-35-8096IK for pregnancyUS OB 14+ weeks anatomy scan Imaging Routine Screening, , for anatomic survey ([facility]) Expected: 10/10/2024, Expires: 01/10/2025[facility] Work Phone: comment on above:Expected: 10/10/2024, Expires: 01/10/2025Start: 09-28-2024 End: 75-57-5727Ypzqevi encounter uohdkqzdp72/18/2025 2:50 PM EDT Office Visit [facility]OM[facility] BCP OB [address] [facility] [place] [address] Daja Ryan PA [address] [place], [place] [phone] ArrivedNOOK BCP OBComment on above:ArrivedStart: 09-14-2024 End: 94-69-7617Meejyih encounter cecqtuooo64/04/2025 1:40 PM EDT Routine NOM[facility] BCP OB [address] [facility] [place] [address] Jose Pan, DO [address] [place], [place] [phone] NOMS BCP OBStart: 08-18-2024 End: 51-10-0503QUN/RhABO/Rh Lab Routine Missed menses , unspecified gestational age Expected: 08/18/2024 (Approximate), Expires: 08/18/2025NOMS HealthcareComment on above:Expected: 08/18/2024 (Approximate), Expires: 08/18/2025Start: 08-18-2024 End: 31-45-6924Lscaw type and Indirect antibody screen panel - BloodType and screen Lab Routine Missed menses , unspecified gestational age Expected: 08/18/2024 (Approximate), Expires: 08/18/2025[facility] Work Phone: comment on above:Expected: 08/18/2024 (Approximate), Expires: 08/18/2025Start: 08-18-2024 End: 15-18-3208Umlwb of abuse panel - Urine by Screen methodRapid drug screen, urine Lab Routine , unspecified gestational age Encounter for supervision of normal first in first trimester Expected: 08/18/2024 (Approximate), Expires: 08/18/2025NOMS HealthcareComment on above:Expected: 08/18/2024 (Approximate), Expires: 08/18/2025Start: 08-18-2024 End: 84-92-0018rnbnszxzmn58/08/2025 1:00 PM EDT Initial [facility] [address] [facility] [place] [address] PBIX BCP OBStart: 08-18-2024 End: 49-93-1113Vsudqituhawi / ancillary services ungxcenxdf62/08/2025 12:30 PM EDT Ancillary Procedure [facility] [address] [facility] [place] [address] GXWG BCP OBStart: 07-20-2024 End: 11-37-1859Nuxapwahqfco / ancillary services hbwputgyjb75/09/2025 3:30 PM EDT Ancillary Procedure NOM[facility] FNR ULTRASOUND [address] [facility] [place] [address] NOMS FNR ULTRASOUNDStart: 07-18-2024 End: 50-24-7938DY Breast - leftLeft breast US complete Imaging Routine Mass of lower outer quadrant of left breast Expected: 07/18/2024, Expires: 09/17/2025 [facility] Work Phone: Comment on above:Expected: 07/18/2024, Expires: 09/17/2025Start: 07-18-2024 End: 75-43-7146Qgtaggl encounter hhtaizpmt15/07/2025 8:20 AM EDT Office Visit NOMS FNR FM [address] [facility] [place] [address] Sri Ramírez MD [address] [facility] [place] [address] ArrivedNOMS FNR FMComment on above:ArrivedStart: 06-10-2024 End: 41-06-0904Wvkzalo encounter jeinortnd59/28/2025 8:00 AM EST Office Visit [facility] FNR FM [address] [facility] [place] [address] Reggie Donovan NP [address] [facility] [place] [address] ArrivedNOMS FNR FMComment on above:ArrivedStart: 04-20-2024 End: 95-95-5209Bxmrwre encounter fbtbhkpik33/08/2025 8:50 AM EST Office Visit [facility] BCP OB [address] [facility] [place] [address] Daja Ryan, PA [address] [place], [place] [phone] ArrivedNOMS BCP OBComment on above:ArrivedStart: 03-09-2024 End: 28-24-0941Vtciylw encounter hqabejwxt53/27/2024 11:20 AM EST Consult [facility]OM[facility] BCP OB [address] [facility] [place] [address] Jose Pan DO [address] [place], [place] [address] ArrivedNOMS BCP OBComment on above:ArrivedStart: 02-15-2024 End: 91-25-1588Fjzwwjd encounter procedureNOMS BCP OBComment on above:Arrived Start: 02-03-2024 End: 41-51-0499Ltkuejgofxgk / ancillary services gwohxhkzit03/23/2024 10:30 AM EDT Ancillary Procedure [facility] BCP OB [address] [facility] [address] [place] [phone] NOMS BCP OBStart: 01-27-2024 End: 98-13-1769Dyapazf encounter procedureNOMS BCP OBComment on above:Arrived Start: 01-20-2024 End: 76-98-6842Uhgajpfgvuug / ancillary services uhouefhgwe18/09/2024 8:30 AM EDT Ancillary Procedure [facility] [address] [place] [address] [place] [address] TGHT BCP OBStart: 01-11-2024 End: 00-77-8193XFNLVOJH(R) ADVANCED VAGINITIS PLUS, TMASURESWAB(R) ADVANCED VAGINITIS PLUS, TMA Pathology and Cytology Routine Pelvic pain in female Expect ed: 01/11/2024 (Approximate), Expires: 01/10/2025[facility] Work Phone: comment on above:Expected: 01/11/2024 (Approximate), Expires: 01/10/2025Start: 01-11-2024 End: 73-75-4828AK for pregnancyUS PELVIS-TRANSVAG IF INDICATED Imaging Routine Pelvic pain in female Expected: 01/11/2024 (Approximate), Expires: 01/10/2025 [facility] HealthcareComment on above:Expected: 01/11/2024 (Approximate), Expires: 01/10/2025Start: 28-93-8252Wkdvaqdmd vaccinationInfluenza Vaccine (#1)[facility]Start: 06-27-2021 End: 14-13-6667Lizhksr encounter beyvggynu56/17/2022 Office Visit Urology Jason Bradley, SHIPPING AND RECEIVING [employer] - [employer] [address] [place], [phone] [facility]: 06-19-2021 End: 69-20-5732Ankeote encounter mttucfmxl75/09/2022 Appointment [facility]iologyC[facility] UltrasoundStart: 83-56-1972MOAFK-19 Vaccine (3 - Booster for Pfizer series)COVID-19 Vaccine (3 - Booster for Pfizer series)[facility]Start: 09-08-4263Igdmgexfn vaccinationFlu vaccine (#1)[facility] HospitalStart: 2018 Screening for malignant neoplasm of cervixPap smearC[facility]: 2013 Screening for Chlamydia trachomatisChlamydia screenC[facility]: 02-11-2012 HIV screeningHIV screenCleveland Clinic [facility]: 12-28-3143Wkvqddfvpj ScreenDepression [facility]: 51-36-7670Cbthqceuiorl 0-64 years Vaccine (1 of 2 - PPSV23)Pneumococcal 0-64 years Vaccine (1 of 2 - PPSV23)[facility]: 57-72-3352Huyvwnlbx vaccine (1 of 2 - 2-dose childhood series)Varicella vaccine (1 of 2 - 2-dose childhood series)[facility]: 29-43-3025Fucgajmcf C screeningHepatitis C [facility] HospitalBacteria identified in Urine by Culture Urine culture Microbiology Routine Pelvic pain in female Ordered: 01/11/2024[facility] HealthcareComment on above:Ordered: 01/11/2024acteria identified in Urine by CultureUrine culture Microbiology Routine 08/12/2024 8:15 PM [facility] Work Phone: bacteria identified in Urine by CultureUrine culture Microbiology Routine Missed menses Ordered: 08/18/2024[facility] HealthcareComment on above:Ordered: 08/18/2024BC W Auto Differential panel - BloodCBC and differential Lab Routine Missed menses , unspecified gestational age Ordered: 08/18/2024NOMS HealthcareComment on above:Ordered: 08/18/2024HLAMYDIA TRACHOMATIS (GENITO/STI)CHLAMYDIA TRACHOMATIS (GENITO/STI) Lab Routine Vaginal odor Ordered: 02/15/2024[facility] HealthcareComment on above:Ordered: 02/15/2024 CHLAMYDIA TRACHOMATIS (GENITO/STI)CHLAMYDIA TRACHOMATIS (GENITO/STI) Lab Routine Pelvic pain in female Ordered: 01/11/2024[facility] HealthcareComment on above: Ordered: 01/11/2024HLAMYDIA TRACHOMATIS (GENITO/STI)CHLAMYDIA TRACHOMATIS (GENITO/STI) Lab Routine Vaginal discharge Vaginal burning Ordered: 05/23/2024 [facility] HealthcareComment on above:Ordered: 05/23/2024HLAMYDIA TRACHOMATIS (GENITO/STI)CHLAMYDIA TRACHOMATIS (GENITO/STI) Lab Routine Screen for STD (sexually transmitted disease) Ordered: 09/28/2024[facility] HealthcareComment on above:Ordered: 09/28/2024 End: 89-20-9508Wdyxfxa, UrineMercy Health Work Phone: comment on above:1 Occurrences starting 06/12/2021 until 2Cytology Cervical or vaginal smear or scraping studyPap Smear Pathology and Cytology Routine Well woman exam with routine gynecological exam Ordered: 01/27/2024[facility] Healthcare Work Phone: comment on above:Ordered: 01/27/2024Hemoglobin A1c/Hemoglobin.total in BloodHemoglobin A1c Lab Routine Missed menses , unspecified gestational age Ordered: 08/18/2024[facility] HealthcareComment on above: Ordered: 08/18/2024Hepatitis B virus surface Ag [Presence] in Serum or Plasma by ImmunoassayHepatitis B surface antigen Lab Routine Missed menses , unspecified gestational age Ordered: 08/18/2024[facility] HealthcareComment on above: Ordered: 08/18/2024Hepatitis C virus Ab [Presence] in Serum or Plasma by ImmunoassayHepatitis C antibody Lab Routine Missed menses , unspecified gestational age Ordered: 08/18/2024[facility] HealthcareComment on above:Ordered: 08/18/2024HIV-1/HIV-2 antigen/antibody combination immunoassayHIV-1 and HIV-2 antibodies Lab Routine Missed menses , unspecified gestational age Ordered: 08/18/2024[facility] HealthcareComment on above:Ordered: 08/18/2024Neisseria gonorrhoeae DNA [Presence] in Unspecified specimen by REKHA with probe detection Neisseria gonorrhea DNA probe, direct Lab Routine Vaginal odor Ordered: 02/15/2024[facility] HealthcareComment on above:Ordered: 02/15/2024Neisseria gonorrhoeae DNA [Presence] in Unspecified specimen by REKHA with probe detection Neisseria gonorrhea DNA probe, direct Lab Routine Pelvic pain in female Ordered: 01/11/2024[facility] HealthcareComment on above:Ordered: 01/11/2024Neisseria gonorrhoeae DNA [Presence] in Unspecified specimen by REKHA with probe detection Neisseria gonorrhea DNA probe, direct Lab Routine Vaginal discharge Vaginal burning Ordered: 05/23/2024[facility] HealthcareComment on above:Ordered: 05/23/2024 Neisseria gonorrhoeae DNA [Presence] in Unspecified specimen by REKHA with probe detectionNeisseria gonorrhea DNA probe, direct Lab Routine Screen for STD (sexually transmitted disease) Ordered: 09/28/20[address] LouisComment on above:Ordered: 09/28/2024Reagin Ab [Presence] in Serum by RPRRPR Lab Routine Missed menses , unspecified gestational age Ordered: 08/18/2024[facility] HealthcareComment on above:Ordered: 08/18/2024Rubella antibody, IgGRubella antibody, IgG Lab Routine Missed menses , unspecified gestational age Ordered: 08/18/2024[facility] HealthcareComment on above:Ordered: 08/18/2024 SURESWAB(R) ADVANCED VAGINITIS PLUS, TMASURESWAB(R) ADVANCED VAGINITIS PLUS, TMA Pathology and Cytology Routine Bacterial vaginosis Vaginalodor Ordered: 02/15/2024[facility] Healthcare Work Phone: comment on above:Ordered: 02/15/2024SURESWAB(R) ADVANCED VAGINITIS PLUS, TMASURESWAB(R) ADVANCED VAGINITIS PLUS, TMA Pathology and Cytology Routine Vaginal discharge Vaginal burning Ordered: 05/23/2024[facility] Healthcare Work Phone: comment on above:Ordered: 05/23/2024SURESWAB(R) ADVANCED VAGINITIS PLUS, TMASURESWAB(R) ADVANCED VAGINITIS PLUS, TMA Pathology and Cytology Routine Screen for STD (sexually transmitted disease) Ordered: 09/28/2024[facility] [employer] Work Phone: comment on above:Ordered: 09/28/20[facility] [place] [facility] [place] Routine 08/12/2024 8:[address] [place] Immunizations Immunization DateImmunizationNotesCare [id number], tetanus toxoids and pertussis vaccineCorey Maxim DO Work Phone[id number] papilloma virus vaccine, quadrivalentCorey Maxim DO Work Phone: [facility] [facility] LouisFecsgahjwz39-45-2153dciqd papilloma virus vaccine, quadrivalentCorey Maxim DO Work Phone: [facility] LouisXfyiygaoto35-85-0990szqun papilloma virus vaccine, quadrivalentCorey Maxim DO Work Phone: [phone] [place], [place] [address]Cntrmsvmyw72-31-1886uvhphmg toxoid, reduced diphtheria toxoid, and acellular pertussis vaccine, adsorbedCorey Maxim DO Work Phone: [phone]-[facility] LouisJsnokxscsw27-13-9417qbeiqgmyet, tetanus toxoids and acellular pertussis vaccine, unspecified formulationCorey Maxim DO Work Phone: [phone] [place] [address] Work Phone: [phone]buui, mumps and rubella virus vaccine Jose Maxim DO Work Phone: [phone] [place], [place] [address]Onkmwiqwsp44-69-3288cbkubfhwpa vaccine, inactivatedCorey Maxim DO Work Phone: [phone]-[facility] LouisWqqmerndin75-02-1904jcafialzsl, tetanus toxoids and acellular pertussis vaccine, unspecified formulationCorey Maxim DO Work Phone: [phone] LouisDyqifqmkiy00-87-0092irmutkncjpc influenzae type b vaccine, PRP-T conjugateCorey Maxim DO Work Phone: [facility] LouisZngnzdckky08-44-9681ggqmwzi, mumps and rubella virus vaccineCorey Maxim DO Work Phone: [phone] [place], [place] [address]Axdcktskmi73-25-8851nqfxrllqio vaccine, inactivatedCorey Maxim DO Work Phone: [phone] [place], [place] [address]Jadhduypyn56-24-7306yvesnrdtpx, tetanus toxoids and acellular pertussis vaccine, unspecified formulationCorey Maxim DO Work Phone: [phone] [address] LouisNxolfoszjp82-70-9413iggrntijhet influenzae type b conjugate and Hepatitis B vaccineCorey Maxim DO Work Phone: [phone] [place], [place] [address]Jifjeqyagu69-68-7511udhkoychxk, tetanus toxoids and acellular pertussis vaccine, unspecified formulationCorey Maxim DO Work Phone: [phone] LouisVvewafhsnv97-76-3677uidxfqzhtii influenzae type b vaccine, conjugate unspecified formulationCorey Maxim DO Work Phone: [facility] LouisLmccaunvlz69-42-6354saubayjfon vaccine, inactivatedCorey Maxim DO Work Phone: [facility] LouisZnxnslcyxt87-93-6280gmjuubtpjb, tetanus toxoids and acellular pertussis vaccine, unspecified formulationCorey Maxim DO Work Phone: [facility] LouisQasunpedfh60-75-2424rtqybtxbbdz influenzae type b vaccine, conjugate unspecified formulationCorey Maxim DO Work Phone: [facility] LouisSaixfzfioe47-85-8710gttwikjfw B vaccine, pediatric or pediatric/adolescent dosageCorey Maxim DO Work Phone: [facility] LouisGixndjtsdg59-95-7705tbplicjpdu vaccine, inactivatedCorey Maxim DO Work Phone: [facility] LouisXjmxrhtona24-71-2002fqtekfmwm B vaccine, pediatric or pediatric/adolescent dosageCorey Maxim DO Work Phone: [facility] Payers DatePayer CategoryPayerPolicy [id number] Member Subscriber Plan / Payer (Effective 2023-Present) Name: Faheem Babb Relation to Subscriber: Spouse Name: MIHAI BABB Date of : 1995 Address: [address] [place] [address] Payer ID: Not on file Type: Not on file Address: [address] [place] [id number] BCBS [id number] 2023-Present [phone] [address] [place] [phone] [id number] 2021[place]icaid[place] [facility] MED[place] [id number] 2020-Present [address] [place] [id number] Medicaid (Managed Care)[employer] [employer] Member Subscriber Plan / Payer (Effective 2020-Present) Name: Faheem Babb Relation to Subscriber: Self Name: Faheem Babb Payer ID: Not on file Group ID: Not on file Type: Not on file Address: [address] [place] [id number] 2..1.028016.3.57[id number] 2..1.903696.3.57[id number] 2.0.1.624204.3.57[id number] 2..1.819395.3.57[id number] 2.0.1.086145.3.579.2.08856-21-3016Kklafno8337419 2.0.1.694935.3.57[id number] 2.0.1.217386.3.579.[id number] 2.0.1.076362.3.579.[id number] 2.16.840.1.322155.3.579.2.[id number] 2.16.840.1.157239.3.579.2.[id number] 2.16.840.1.011153.3.57[id number] 2.16.840.1.647435.3.57[id number] 2.16840.1.552428.3.579.[id number] 2.16840.1.088934.3.579.2.55069-71-7385Qbnlnyb60561421 2.840.1.652295.3.57[id number] 2.840.1.104653.3.579.2.7[id number] 2.840.1.021813.3.57[id number] 2.16.840.1.401532.3.57[id number] 2.840.1.454602.3.579.2.229711-28-5649Ywrryym03232159 2.16840.1.801705.3.579.2.812162-82-0746Ajlnkbm59912130 2.16840.1.834220.3.579.2.705360-85-9271Pkbqjlw14331489 2.16.840.1.727107.3.579.2.330897-95-7420Gwlhmfm34865526 2.16840.1.415104.3.579.2.412125-78-8381Vjoqepe1507721 2.16.840.1.844491.3.579.2.521972-31-0845Qupvayh1242641 2.16.840.1.475990.3.579.2.557375-69-2454Qkczfte2004292 2.16.840.1.025011.3.579.2.954586-00-3001Lufjjti2018179 2.16.840.1.273994.3.579.2.374065-25-7101Wrqkelg0865207 2.16.840.1.422459.3.57[id number] 2.16.840.1.087229.3.579.2.987488-40-3847Kumocbn0484747 2.16.840.1.210370.3.579.2.780690-91-5694Hydvdtp6209834 2.16.840.1.932817.3.579.2.195791-21-6791Tgzujpb1829985 2.16.840.1.542555.3.579.2.329843-95-7536Nulhlvl2049013 2.16.840.1.195009.3.579.2.[id number] 1.2.840.654601.1.13.239.2.7.3.363692.39506-79-2309Lczqdes479883990959 1.2.840.451195.1.13.239.2.7.3.804913.34689-43-7101Avtmrxc9387576546624 Social History DateTypeDetailFacilityStart: 06-12-2021 End: 63-51-4112Dktbtkq smoking status NHISEx-smokerMercy HealthHistory of tobacco useCigarette SmokerMercy Health Work Phone: start: 06-12-2021 End: 57-72-7536Hifheptfzh smoked current (pack per day) - Reported0.25NOOK HealthcareStart: 06-12-2021 End: 95-22-6672Lkxqotm use and exposureSmokeless tobacco non-userThe Bellevue HospitalCoupFlip Work Phone: start: 86-77-7684Auahoxm intakeCurrent non-drinker of alcohol (finding)[employer] Phone: start: 69-75-6553Kyy Assigned At BirthNot on [facility] MorrisNav[facility] [employer] Phone: History of tobacco useCurrent smokerDAVIS HOSP[facility] Healthcare Start: 01-11-2024 End: 99-98-6769Peknbgxzc beverage intakeLifetime non-drinker (finding)[facility] HealthcareStart: 09-24-2023 End: 56-37-0879N0640 Health LiteracyNOOK HealthcareStart: 52-22-4411Yus often do you need to have someone help you when you read instructions, pamphlets, or other written material from your doctor or pharmacy [SILS]NeverNOMS HealthcareDo you belong to any clubs or organizations such as yazdanism groups, unions, fraternal or athletic groups, or school groups?NoNOMS HealthcareHow often to you have a drink containing alcohol?NeverNOMS HealthcareDo you feel stress - tense, restless, nervous, or anxious, or unable to sleep at night because yourmind is troubled all the time - these days [OSQ]Rather muchNOMS Healthcare(I/We) worried whether (my/our) food would run out before (I/we) got money to buy more.Never trueNOMS HealthcareStart: 25-07-0098Twbnvgm Commentcaffeine: 1-2 cups coffee or energy drink occasionallyNOMS HealthcareStart: 14-39-7284PumjlcbwkQWLT Healthcare Functional Status FecyGyykgqircoVkklkoYuzlizlx26-79-5340Ljilohhqha StatusN/AExecutive [facility]rology of [facility] Clinical Notes 01-11-2024 to 01-24-2025 Note Date & QfirAkghCxmofxvq64-45-4552 History of Present illness Narrative* Ana Dayna, CLASSROOM AIDE - 01/24/2025 10:00 AM EDT Reason for Appointment: Patient ID: Faheem Babb is a 29 y.o. female who presents [...] 09/06/2022 Bipolar affective disorder, currently depressed, moderate ([facility]) 09/06/2022 Complication of intrauterine device (IUD) 09/06/2022 Inattention 09/06/2022 Irregular menses 09/06/2022 Irritable bowel syndrome with diarrhea 09/06/2022 Menstrual cramp 09/06/2022 Pain in pelvis 09/06/2022 Generalized anxiety disorder 09/06/2022 Post-traumatic stress disorder 09/06/2022 Slow transit constipation 09/06/2022 Anxiety during ([facility]) 03/26/2020 Depression affecting ([facility]) 03/26/2020 History of chlamydia 03/26/2020 Bacterial infection due to mycoplasma 02/15/2024 Vaginal odor 02/15/2024 Urinary tract infection without hematuria 02/15/2024 Bacterial vaginosis 02/15/2024 Bladder pain 07/18/2024 Calculus of kidney 07/25/2013 Gross hematuria 07/18/2024 Resolved Ambulatory Problems Diagnosis Date Noted No Resolved Ambulatory Problems Past Medical History: Diagnosis Date ADHD (attention deficit hyperactivity disorder) Bipolar disorder (manic depression) ([facility]) BMI 24.0-24.9, adult Chicken pox 2007 [...] nursing note reviewed. Exam conducted with a online health and fitness coach present. Vitals: Estimated body mass index is 27 kg/m as calculated from the following: Height as of 25: 5' 7 . Weight as of this encounter: 172 lb 6.4 oz. BP: 108/72 Patient's last menstrual period was 06/19/2024. ASSESSMENT & PLAN ICD-10-CM 1. Encounter for ultrasound recheck of choroid plexus cyst, antepartum ([facility]) O35.03X0 US OB limited 1+ fetuses 2. Third trimester ([facility]) Z34.93 3. 31 weeks gestation of ([facility]) Z3A.31 POCT urinalysis dipstick manually resulted 4. size inconsistent with dates ([facility]) O26.849 US OB follow up transabdominal [...] mood Amenorrhea Anxiety Bipolar disorder (manic depression) ([facility]) BMI 24.0-24.9, adult Chicken pox 2008 [...] SMEAR 05/21/2021 negative WISDOM TOOTH EXTRACTION 2014 [facility] documented in this encounterTen[address]. LouisClozninlfi86-55-7460 History of Present illness Narrative* Jake Gunter NP - 01/09/2025 10:10 AM EDT Reason for Appointment: Patient ID: Faheem Babb is a 29 y.o. female who presents [...] 09/06/2022 Bipolar affective disorder, currently depressed, moderate ([facility]) 09/06/2022 Complication of intrauterine device (IUD) 09/06/2022 Inattention 09/06/2022 Irregular menses 09/06/2022 Irritable bowel syndrome with diarrhea 09/06/2022 Menstrual cramp 09/06/2022 Pain in pelvis 09/06/2022 Generalized anxiety disorder 09/06/2022 Post-traumatic stress disorder 09/06/2022 Slow transit constipation 09/06/2022 Anxiety during ([facility]) 03/26/2020 Depression affecting ([facility]) 03/26/2020 History of chlamydia 03/26/2020 Bacterial infection due to mycoplasma 02/15/2024 Vaginal odor 02/15/2024 Urinary tract infection without hematuria 02/15/2024 Bacterial vaginosis 02/15/2024 Bladder pain 07/18/2024 Calculus of kidney 07/25/2013 Gross hematuria 07/18/2024 Resolved Ambulatory Problems Diagnosis Date Noted No Resolved Ambulatory Problems Past Medical History: Diagnosis Date ADHD (attention deficit hyperactivity disorder) Bipolar disorder (manic depression) ([facility]) BMI 24.0-24.9, adult Chicken pox 2007 Headache IBS (irritable bowel syndrome) Intrauterine device surveillance Pelvic pain Urinary tract infection HISTORY PAST MEDICAL HISTORY SOCIAL HISTORY Past Medical History: Diagnosis Date ADHD (attention deficit hyperactivity disorder) Adjustment disorder with mixed anxiety and depressed mood Amenorrhea Anxiety Bipolar disorder (manic depression) ([facility]) BMI 24.0-24.9, adult Chicken pox 2007 [...] SMEAR 05/21/2021 negative WISDOM TOOTH EXTRACTION 2015 [facility] REVIEW OF SYSTEMS Review of Systems: [...] nursing note reviewed. Exam conducted with a online health and fitness coach present. Vitals: Estimated body mass index is 26.31 kg/m as calculated from the following: Height as of 07/18/24: 5' 7 . Weight as of 12/28/24: 168 lb. BP: Patient's last menstrual period was 06/19/2024. ASSESSMENT & PLAN ICD-10-CM 1. Third trimester ([facility]) Z34.93 POCT urinalysis dipstick manually resulted 2. 29 weeks gestation of ([facility]) Z3A.29 3. Choroid plexus cyst G93.0 US [...] week for routine OB appointment. Documented by Nasreen Figueroa MA on behalf of: Jake Gunter NP documented in this encounterTenet St. LouisOiddwiolay45-03-8075 History of Present illness Narrative* ALISA Coyle - 12/28/2024 3:20 PM EDT Reason for Appointment: Patient ID: Faheem Babb is a 29 y.o. female who presents [...] 09/06/2022 Slow transit constipation 09/06/2022 Anxiety during ([facility]) 03/26/2020 Depression affecting ([facility]) 03/26/2020 History of chlamydia 03/26/2020 Bacterial infection due to mycoplasma 02/15/2024 Vaginal odor 02/15/2024 Urinary tract infection without hematuria 02/15/2024 Bacterial vaginosis 02/15/2024 Bladder pain 07/18/2024 Calculus of kidney 07/25/2013 Gross hematuria 07/18/2024 Resolved Ambulatory Problems Diagnosis Date Noted No Resolved Ambulatory Problems Past Medical History: Diagnosis Date ADHD (attention deficit hyperactivity disorder) Bipolar disorder (manic depression) ([facility]) BMI 24.0-24.9, adult Chicken pox 2007 Headache IBS (irritable bowel syndrome) Intrauterine device surveillance Pelvic pain Urinary tract infection HISTORY PAST MEDICAL HISTORY SOCIAL HISTORY Past Medical History: Diagnosis Date ADHD (attention deficit hyperactivity disorder) Adjustment disorder with mixed anxiety and depressed mood Amenorrhea Anxiety Bipolar disorder (manic depression) ([facility]) BMI 24.0-24.9, adult Chicken pox 2007 [...] SMEAR 05/21/2021 negative WISDOM TOOTH EXTRACTION 2015 [facility] REVIEW OF SYSTEMS Review of Systems: [...] reviewed. Vitals: Estimated body mass index is 26.31 kg/m as calculated from the following: Height as of 07/18/24: 5' 7 . Weight as of this encounter: 168 lb. BP: 108/68 Patient's last menstrual period was 06/19/2024. ASSESSMENT & PLAN ICD-10-CM 1. Second trimester ([facility]) Z34.92 POCT urinalysis dipstick manually resulted 2. 27 weeks gestation of ([facility]) Z3A.27 POCT urinalysis dipstick manually resulted Return OB: Patient presents today for a routine obstetrics appointment. Patient is currently 27w3d . Patient states she is doing well but has complaints of being tired due to current . Patient has verbalizes frequent movement. labor precautions was discussed/given and patient was instructed to perform kick counts three times a day. Orders Placed This Encounter Procedures POCT urinalysis dipstick manually resulted Follow Up: Patient is to return to office in 2 week for routine OB appointment. Documented by ALISA Coyle on behalf of: ALISA Coyle documented in this encounterTenet St. LouisTwbkcimrvb84-66-4738 History of Present illness Narrative* Jake Gunter NP - 12/05/2024 1:50 PM EDT Reason for Appointment: Patient ID: Faheem Babb is a 29 y.o. female who presents [...] 09/06/2022 Bipolar affective disorder, currently depressed, moderate ([facility]) 09/06/2022 Complication of intrauterine device (IUD) 09/06/2022 Inattention 09/06/2022 Irregular menses 09/06/2022 Irritable bowel syndrome with diarrhea 09/06/2022 Menstrual cramp 09/06/2022 Pain in pelvis 09/06/2022 Generalized anxiety disorder 09/06/2022 Post-traumatic stress disorder 09/06/2022 Slow transit constipation 09/06/2022 Anxiety during ([facility]) 03/26/2020 Depression affecting ([facility]) 03/26/2020 History of chlamydia 03/26/2020 Bacterial infection due to mycoplasma 02/15/2024 Vaginal odor 02/15/2024 Urinary tract infection without hematuria 02/15/2024 Bacterial vaginosis 02/15/2024 Bladder pain 07/18/2024 Calculus of kidney 07/25/2013 Gross hematuria 07/18/2024 Resolved Ambulatory Problems Diagnosis Date Noted No Resolved Ambulatory Problems Past Medical History: Diagnosis Date ADHD (attention deficit hyperactivity disorder) Bipolar disorder (manic depression) ([facility]) BMI 24.0-24.9, adult Chicken pox 2007 Headache IBS (irritable bowel syndrome) Intrauterine device surveillance Pelvic pain Urinary tract infection HISTORY PAST MEDICAL HISTORY SOCIAL HISTORY Past Medical History: Diagnosis Date ADHD (attention deficit hyperactivity disorder) Adjustment disorder with mixed anxiety and depressed mood Amenorrhea Anxiety Bipolar disorder (manic depression) ([facility]) BMI 24.0-24.9, adult Chicken pox 2007 [...] SMEAR 05/21/2021 negative WISDOM TOOTH EXTRACTION 2015 [facility] REVIEW OF SYSTEMS Review of Systems: [...] nursing note reviewed. Exam conducted with a online health and fitness coach present. Vitals: Estimated body mass index is 25.22 kg/m as calculated from the following: Height as of 25: 5' 7 . Weight as of this encounter: 161 lb. BP: 110/72 Patient's last menstrual period was 06/19/2024. ASSESSMENT & PLAN ICD-10-CM 1. Second trimester ([facility]) Z34.92 POCT urinalysis dipstick manually resulted 2. 24 weeks gestation of ([facility]) Z3A.24 3. Diabetes mellitus screening Z13.1 [...] of: Jose Pan DO documented in this encounterTenet St. LouisMgjdotiaia84-53-8982 History of Present illness Narrative* Jake Gunter NP - 11/07/2024 2:00 PM EDT Reason for Appointment: Patient ID: Faheem Babb is a 29 y.o. female who presents [...] 09/06/2022 Bipolar affective disorder, currently depressed, moderate ([facility]) 09/06/2022 Complication of intrauterine device (IUD) 09/06/2022 Inattention 09/06/2022 Irregular menses 09/06/2022 Irritable bowel syndrome with diarrhea 09/06/2022 Menstrual cramp 09/06/2022 Pain in pelvis 09/06/2022 Generalized anxiety disorder 09/06/2022 Post-traumatic stress disorder 09/06/2022 Slow transit constipation 09/06/2022 Anxiety during ([facility]) 03/26/2020 Depression affecting ([facility]) 03/26/2020 History of chlamydia 03/26/2020 Bacterial infection due to mycoplasma 02/15/2024 Vaginal odor 02/15/2024 Urinary tract infection without hematuria 02/15/2024 Bacterial vaginosis 02/15/2024 Bladder pain 07/18/2024 Calculus of kidney 07/25/2013 Gross hematuria 07/18/2024 Resolved Ambulatory Problems Diagnosis Date Noted No Resolved Ambulatory Problems Past Medical History: Diagnosis Date ADHD (attention deficit hyperactivity disorder) Bipolar disorder (manic depression) ([facility]) BMI 24.0-24.9, adult Chicken pox 2007 Headache IBS (irritable bowel syndrome) Intrauterine device surveillance Pelvic pain Urinary tract infection HISTORY PAST MEDICAL HISTORY SOCIAL HISTORY Past Medical History: Diagnosis Date ADHD (attention deficit hyperactivity disorder) Adjustment disorder with mixed anxiety and depressed mood Amenorrhea Anxiety Bipolar disorder (manic depression) ([facility]) BMI 24.0-24.9, adult Chicken pox 2007 [...] SMEAR 05/21/2021 negative WISDOM TOOTH EXTRACTION 2015 [facility] REVIEW OF SYSTEMS Review of Systems: [...] nursing note reviewed. Exam conducted with a online health and fitness coach present. Vitals: Estimated body mass index is 24.59 kg/m as calculated from the following: Height as of 07/18/24: 5' 7 . Weight as of this encounter: 157 lb. BP: 118/70 Patient's last menstrual period was 06/19/2024. ASSESSMENT & PLAN (Z34.92) Second trimester ([facility]) Plan: POCT urinalysis dipstick manually resulted (Z3A.20) 20 weeks gestation of ([facility]) Return OB: Patient presents today for a [...] appointment. Will repeat anatomy ultrasoundin 4 weeks choroid cyst noted on last ultrasound Documented by Jake Gunter NP on behalf of: Jose Pan DO documented in this encounterTenet St. LouisLyccwtxucb41-03-0679 History of Present illness Narrative* Jake Gunter NP - 10/10/2024 2:20 PM EDT Reason for Appointment: Patient ID: Faheem Babb is a 29 y.o. female who presents [...] 09/06/2022 Bipolar affective disorder, currently depressed, moderate ([facility]) 09/06/2022 Complication of intrauterine device (IUD) 09/06/2022 Inattention 09/06/2022 Irregular menses 09/06/2022 Irritable bowel syndrome with diarrhea 09/06/2022 Menstrual cramp 09/06/2022 Pain in pelvis 09/06/2022 Generalized anxiety disorder 09/06/2022 Post-traumatic stress disorder 09/06/2022 Slow transit constipation 09/06/2022 Anxiety during ([facility]) 03/26/2020 Depression affecting ([facility]) 03/26/2020 History of chlamydia 03/26/2020 Bacterial infection due to mycoplasma 02/15/2024 Vaginal odor 02/15/2024 Urinary tract infection without hematuria 02/15/2024 Bacterial vaginosis 02/15/2024 Bladder pain 07/18/2024 Calculus of kidney 07/25/2013 Gross hematuria 07/18/2024 Resolved Ambulatory Problems Diagnosis Date Noted No Resolved Ambulatory Problems Past Medical History: Diagnosis Date ADHD (attention deficit hyperactivity disorder) Bipolar disorder (manic depression) ([facility]) BMI 24.0-24.9, adult Chicken pox 2008 Headache IBS (irritable bowel syndrome) Intrauterine device surveillance Pelvic pain Urinary tract infection HISTORY PAST MEDICAL HISTORY SOCIAL HISTORY Past Medical History: Diagnosis Date ADHD (attention deficit hyperactivity disorder) Adjustment disorder with mixed anxiety and depressed mood Amenorrhea Anxiety Bipolar disorder (manic depression) ([facility]) BMI 24.0-24.9, adult Chicken pox 2008 [...] SMEAR 05/21/2021 negative WISDOM TOOTH EXTRACTION 2015 [facility] REVIEW OF SYSTEMS Review of Systems: [...] nursing note reviewed. Exam conducted with a online health and fitness coach present. Vitals: Estimated body mass index is 24 kg/m as calculated from the following: Height as of 25: 5' 7 . Weight as of this encounter: 153 lb 4 oz. BP: 108/60 Patient's last menstrual period was 06/19/2024. ASSESSMENT & PLAN ICD-10-CM 1. Second trimester ([facility]) Z34.92 Alpha fetoprotein, maternal Alpha fetoprotein, maternal POCT urinalysis dipstick manually resulted 2. 16 weeks gestation of ([facility]) Z3A.16 3. Screening, , for anatomic survey ([facility]) Z36.89 US OB 14+ weeks anatomy scan [...] of: Jose Pan DO documented in this encounterTenet St. LouisPlcqctzynd82-71-6528 History of Present illness Narrative* Nasreen Figueroa MA - 09/28/2024 2:50 PM EDT Reason for Appointment: Patient ID: Faheem Babb is a 29 y.o. female who presents [...] 09/06/2022 Bipolar affective disorder, currently depressed, moderate ([facility]) 09/06/2022 Complication of intrauterine device (IUD) 09/06/2022 Inattention 09/06/2022 Irregular menses 09/06/2022 Irritable bowel syndrome with diarrhea 09/06/2022 Menstrual cramp 09/06/2022 Pain in pelvis 09/06/2022 Generalized anxiety disorder 09/06/2022 Post-traumatic stress disorder 09/06/2022 Slow transit constipation 09/06/2022 Anxiety during ([facility]) 03/26/2020 Depression affecting ([facility]) 03/26/2020 History of chlamydia 03/26/2020 Bacterial infection due to mycoplasma 02/15/2024 Vaginal odor 02/15/2024 Urinary tract infection without hematuria 02/15/2024 Bacterial vaginosis 02/15/2024 Bladder pain 07/18/2024 Calculus of kidney 07/25/2013 Gross hematuria 07/18/2024 Resolved Ambulatory Problems Diagnosis Date Noted No Resolved Ambulatory Problems Past Medical History: Diagnosis Date ADHD (attention deficit hyperactivity disorder) Bipolar disorder (manic depression) ([facility]) BMI 24.0-24.9, adult Chicken pox 2007 Headache IBS (irritable bowel syndrome) Intrauterine device surveillance Pelvic pain Urinary tract infection HISTORY PAST MEDICAL HISTORY SOCIAL HISTORY Past Medical History: Diagnosis Date ADHD (attention deficit hyperactivity disorder) Adjustment disorder with mixed anxiety and depressed mood Amenorrhea Anxiety Bipolar disorder (manic depression) ([facility]) BMI 24.0-24.9, adult Chicken pox 2007 [...] SMEAR 05/21/2021 negative WISDOM TOOTH EXTRACTION 2015 [facility] REVIEW OF SYSTEMS Review of Systems: [...] nursing note reviewed. Exam conducted with a online health and fitness coach present. Vitals: Estimated body mass index is 23.34 kg/m as calculated from the following: Height as of 07/18/24: 5' 7 . Weight as of this encounter: 149 lb. BP: 116/70 Patient's last menstrual period was 06/19/2024. ASSESSMENT & PLAN ICD-10-CM 1. Second trimester ([facility]) Z34.92 POCT urinalysis dipstick manually resulted 2. 14 weeks gestation of ([facility]) Z3A.14 3. Screen for STD (sexually transmitted [...] was done on 01/27/2024 and not due untilJanuary 2025. Cultures was obtained without difficulty. Orders Placed This Encounter Procedures CHLAMYDIA TRACHOMATIS (GENITO/STI) Neisseria gonorrhea DNA probe, direct POCT urinalysis dipstick manually resulted Follow Up: Patient is to return to our office in 4 weeks for routine OB appointment Documented by Nasreen Figueroa MA on behalf of: ALISA Coyle * Jake Gunter NP - 09/28/2024 2:50 PM EDT Reason for Appointment: Patient ID: Faheem Babb is a 29 y.o. female who presents [...] 09/06/2022 Slow transit constipation 09/06/2022 Anxiety during ([facility]) 03/26/2020 Depression affecting ([facility]) 03/26/2020 History of chlamydia 03/26/2020 Bacterial infection due to mycoplasma 02/15/2024 Vaginal odor 02/15/2024 Urinary tract infection without hematuria 02/15/2024 Bacterial vaginosis 02/15/2024 Bladder pain 07/18/2024 Calculus of kidney 07/25/2013 Gross hematuria 07/18/2024 Resolved Ambulatory Problems Diagnosis Date Noted No Resolved Ambulatory Problems Past Medical History: Diagnosis Date ADHD (attention deficit hyperactivity disorder) Bipolar disorder (manic depression) ([facility]) BMI 24.0-24.9, adult Chicken pox 2007 Headache IBS (irritable bowel syndrome) Intrauterine device surveillance Pelvic pain Urinary tract infection HISTORY PAST MEDICAL HISTORY SOCIAL HISTORY Past Medical History: Diagnosis Date ADHD (attention deficit hyperactivity disorder) Adjustment disorder with mixed anxiety and depressed mood Amenorrhea Anxiety Bipolar disorder (manic depression) ([facility]) BMI 24.0-24.9, adult Chicken pox 2007 [...] SMEAR 05/21/2021 negative WISDOM TOOTH EXTRACTION 2015 [facility] REVIEW OF SYSTEMS Review of Systems: [...] nursing note reviewed. Exam conducted with a online health and fitness coach present. Vitals: Estimated body mass index is 23.34 kg/m as calculated from the following: Height as of 07/18/24: 5' 7 . Weight as of this encounter: 149 lb. BP: 116/70 Patient's last menstrual period was 06/19/2024. ASSESSMENT & PLAN ICD-10-CM 1. Second trimester ([facility]) Z34.92 POCT urinalysis dipstick manually resulted 2. 14 weeks gestation of ([facility]) Z3A.14 3. Screen for STD (sexually transmitted disease) Z11.3 SURESWAB(R) ADVANCED VAGINITIS PLUS, TMA CHLAMYDIA TRACHOMATIS (GENITO/STI) Neisseria gonorrhea DNA probe, direct Patient presents with complaints of vaginal discharge. She denies any pelvic pain today. Cultures are obtained today. She will return in 2 weeks for her routine OB appointment. Documented by Jake Gunter NP on behalf of: ALISA Coyle documented in this encounterTenet St. [id number] History of Present illness Narrative* Ana Mcintosh LPN - 09/13/2024 1:40 PM EDT Reason for Appointment: Patient ID: Faheem Babb is a 29 y.o. female who presents [...] disorder with mixed anxiety and depressed mood ([facility]) 09/06/2022 Amenorrhea 09/06/2022 Anxiety 09/06/2022 Bipolar affective disorder, currently depressed, moderate ([facility]) 09/06/2022 Complication of intrauterine device (IUD) ([facility]) 09/06/2022 Inattention 09/06/2022 Irregular menses 09/06/2022 Irritable bowel syndrome with diarrhea 09/06/2022 Menstrual cramp 09/06/2022 Pain in pelvis 09/06/2022 Generalized anxiety disorder ([facility]) 09/06/2022 Post-traumatic stress disorder ([facility]) 09/06/2022 Slow transit constipation 09/06/2022 Anxiety during 03/26/2020 Depression affecting ([facility]) 03/26/2020 History of chlamydia 03/26/2020 Bacterial infection due to mycoplasma 02/15/2024 Vaginal odor 02/15/2024 Urinary tract infection without hematuria 02/15/2024 Bacterial vaginosis 02/15/2024 Bladder pain 07/18/2024 Calculus of kidney 07/25/2013 Gross hematuria 07/18/2024 Resolved Ambulatory Problems Diagnosis Date Noted No Resolved Ambulatory Problems Past Medical History: Diagnosis Date ADHD (attention deficit hyperactivity disorder) ([facility]) Bipolar disorder (manic depression) ([facility]) BMI 24.0-24.9, adult Chicken pox 2007 Headache IBS (irritable bowel syndrome) Intrauterine device surveillance Pelvic pain Urinary tract infection HISTORY PAST MEDICAL HISTORY SOCIAL HISTORY Past Medical History: Diagnosis Date ADHD (attention deficit hyperactivity disorder) ([facility]) Adjustment disorder with mixed anxiety and depressed mood ([facility]) Amenorrhea Anxiety Bipolar disorder (manic depression) ([facility]) BMI 24.0-24.9, adult Chicken pox 2007 Complication of intrauterine device (IUD) ([facility]) Headache IBS (irritable bowel syndrome) IBS [...] SMEAR 05/21/2021 negative WISDOM TOOTH EXTRACTION 2015 [facility] REVIEW OF SYSTEMS Review of Systems: [...] nursing note reviewed. Exam conducted with a online health and fitness coach present. Vitals: Estimated body mass index is [...] or undercooked meat, and stay away from [facility]. Patient has been consulted regarding any further do's and don'tsof . Patient voiced understanding and all questions and concerns were answered. Pt has uti symptoms- rx for macrobid faxed to pharmacy. Orders Placed This Encounter Procedures POCT urinalysis dipstick manually resulted Follow Up: Patient is to return in 4 weeks for routine OB appointment. Documented by Ana Mcintosh LPN on behalf of: Jose Pan DO documented in this encounterTenet St. [id number] History of Present illness Narrative* Nasreen Figueroa MA - 08/18/2024 1:00 PM EDT Reason for Appointment: Patient ID: Faheem Babb is a 29 y.o. female who presents [...] disorder with mixed anxiety and depressed mood ([facility]) 09/06/2022 Amenorrhea 09/06/2022 Anxiety 09/06/2022 Bipolar affective disorder, currently depressed, moderate ([facility]) 09/06/2022 Complication of intrauterine device (IUD) ([facility]) 09/06/2022 Inattention 09/06/2022 Irregular menses 09/06/2022 Irritable bowel syndrome with diarrhea 09/06/2022 Menstrual cramp 09/06/2022 Pain in pelvis 09/06/2022 Generalized anxiety disorder ([facility]) 09/06/2022 Post-traumatic stress disorder ([facility]) 09/06/2022 Slow transit constipation 09/06/2022 Anxiety during 03/26/2020 Depression affecting ([facility]) 03/26/2020 History of chlamydia 03/26/2020 Bacterial infection due to mycoplasma 02/15/2024 Vaginal odor 02/15/2024 Urinary tract infection without hematuria 02/15/2024 Bacterial vaginosis 02/15/2024 Bladder pain 07/18/2024 Calculus of kidney 07/25/2013 Gross hematuria 07/18/2024 Resolved Ambulatory Problems Diagnosis Date Noted No Resolved Ambulatory Problems Past Medical History: Diagnosis Date ADHD (attention deficit hyperactivity disorder) ([facility]) Bipolar disorder (manic depression) ([facility]) BMI 24.0-24.9, adult Chicken pox 2007 [...] SMEAR 05/21/2021 negative WISDOM TOOTH EXTRACTION 2015 [facility] Allergies Allergen Reactions Bacitracin-Polymyxin B Other [...] urine; Future Nurse Note: Patient unsure of [place] [employer] to one. OB Intake: Patient presents today for first OB visit. Patients history has been reviewed in great detail including any potential risks. Patient signed consent forms and patient desires testing in both trimesters. Patient currently has no complaints and has been advised to drink 6-8 glasses of water a day, eatno raw or undercooked meat, and stay away from [facility]. Patient has also been advised to not change litter boxes and eat 6 small meals a day. Patient has been consulted regarding the do's and don'ts ofpregnancy. Patient was given labs and all questions [...] by: Nasreen Figueroa MA documented in this encounterTenet St. [id number] NotePatient Education Urology Kidney Stones Kidney stones are [...] these instructions at home: Medicines ??? Take [id number] and prescription medicines only as told by [...] provider. Document Revised: 11/21/2022 Document Reviewed: 11/21/2022 [employer] Patient Education ? 2023 [employer].[facility] 07-18-2024 History of Present illness Narrative* Sri Ramírez MD - 07/18/2024 8:20 AM EDT Images from the original note were not included. Faheem Babb is a 29 y.o. female presents with [...] during her subsequent annual visit with her [employer], the diagnosis of bilateral fibroids was confirmed, leading her to forego the ultrasound. Over the past weekend, she has noticed an increase in the sizeof the left breast mass, accompanied by tenderness. She recently had a positive test. Sheis scheduled to see her [employer] in 08/2024. Supplemental Information She takes D-mannose and cranberry due to a history of urinary tract infections (UTIs), and she alsotakes a probiotic. MEDICATIONS D-mannose, cranberry, probiotic SUBJECTIVE: [...] SMEAR 05/21/2021 negative WISDOM TOOTH EXTRACTION 2015 [facility] FAMILY HISTORY: Family History Problem Relation [...] size of the lump. documented in this encounterTenet St. [id number] Telephone encounter Note* Telephone Encounter - Lopez Gan - 06/10/2024 9:17 AM EST Faheem called - she asked if its ok that you go ahead and send the referral for her hand now,please. Ty [facility]et St[facility] [id number] Miscellaneous Notes* Telephone Encounter - Lopez Gan - 06/10/2024 9:17 AM EST Faheem called - she asked if its ok that you go ahead and send the referral for her hand now,please. Ty documented in this encounterTenet St. [id number] History of Present illness Narrative* Reggie Donovan NP - 06/10/2024 8:00 AM EST Images from the original note were not included. Faheem Babb is a 29 y.o. female presents with [...] and discolored drainage from the wound. Reports thedrainage is a orange/green color. She was not placed on antibiotics in the ER. Tetanus is up to date. Has good ROM of her right thumb. Flowsheet Row Patient Outreach from 06/09/2024 in [facility] with Massimo Buchanan LPN Hospital Information ED, Hospital or Halfway Facility Discharge? ED Patient has been contacted within 1 week of being seen in the ED No Have two attempts been made to contact the patient within one week of being seen in the ED? Yes Diagnosis Right thumb laceration. Discharge Date 06/01/24 Discharged To: Home Setting Discharge Hospital [facility] Admission Date 06/01/24 Medications Appointments Does the [...] Diagnosis Date ADHD (attention deficit hyperactivity disorder) ([facility]) Adjustment disorder with mixed anxiety and depressed mood ([facility]) Amenorrhea Anxiety Bipolar disorder (manic depression) ([facility]) BMI 24.0-24.9, adult Chicken pox 2008 Complication of intrauterine device (IUD) ([facility]) Headache IBS (irritable bowel syndrome) IBS [...] SMEAR 05/21/2021 negative WISDOM TOOTH EXTRACTION 2015 [facility] REVIEW OF SYMPTOMS: Review of Systems [...] after 3-5 days on antibiotics, please call theoffice. May need referral to hand specialist if still having issues Follow up as needed. documented in this encounterTenet St. [id number] History of Present illness Narrative* ALISA Coyle - 05/23/2024 8:40 AM EST Reason for Appointment: Patient ID: Faheem Babb is a 29 y.o. female who presents [...] 09/06/2022 Bipolar affective disorder, currently depressed, moderate ([facility]) 09/06/2022 Complication of intrauterine device (IUD) ([facility]) 09/06/2022 Inattention 09/06/2022 Irregular menses 09/06/2022 Irritable bowel syndrome with diarrhea 09/06/2022 Menstrual cramp 09/06/2022 Pain in pelvis 09/06/2022 Generalized anxiety disorder ([facility]) 09/06/2022 Post-traumatic stress disorder ([facility]) 09/06/2022 Slow transit constipation 09/06/2022 Anxiety during 03/26/2020 Depression affecting ([facility]) 03/26/2020 History of chlamydia 03/26/2020 Bacterial infection due to mycoplasma 02/15/2024 Vaginal odor 02/15/2024 Urinary tract infection without hematuria 02/15/2024 Bacterial vaginosis 02/15/2024 Resolved Ambulatory Problems Diagnosis Date Noted No Resolved Ambulatory Problems Past Medical History: Diagnosis Date ADHD (attention deficit hyperactivity disorder) ([facility]) Bipolar disorder (manic depression) ([facility]) BMI 24.0-24.9, adult Chicken pox 2007 Headache IBS (irritable bowel syndrome) Intrauterine device surveillance Pelvic pain Urinary tract infection HISTORY PAST MEDICAL HISTORY SOCIAL HISTORY Past Medical History: Diagnosis Date ADHD (attention deficit hyperactivity disorder) ([facility]) Adjustment disorder with mixed anxiety and depressed mood ([facility]) Amenorrhea Anxiety Bipolar disorder (manic depression) ([facility]) BMI 24.0-24.9, adult Chicken pox 2008 Complication of intrauterine device (IUD) ([facility]) Headache IBS (irritable bowel syndrome) IBS with [...] SMEAR 05/21/2021 negative WISDOM TOOTH EXTRACTION 2015 [facility] REVIEW OF SYSTEMS Review of Systems: [...] behalf of: ALISA Coyle documented in this encounterTenet St. [id number] History of Present illness Narrative* nAa Mcintosh, CLIFFORD - 04/20/2024 2:00 PM EST Reason for Appointment: Patient ID: Faheem Babb is a 29 y.o. female who presents [...] disorder with mixed anxiety and depressed mood ([facility]) 09/06/2022 Amenorrhea 09/06/2022 Anxiety 09/06/2022 Bipolar affective disorder, currently depressed, moderate ([facility]) 09/06/2022 Complication of intrauterine device (IUD) ([facility]) 09/06/2022 Inattention 09/06/2022 Irregular menses 09/06/2022 Irritable bowel syndrome with diarrhea 09/06/2022 Menstrual cramp 09/06/2022 Pain in pelvis 09/06/2022 Generalized anxiety disorder ([facility]) 09/06/2022 Post-traumatic stress disorder ([facility]) 09/06/2022 Slow transit constipation 09/06/2022 Anxiety during 03/26/2020 Depression affecting ([facility]) 03/26/2020 History of chlamydia 03/26/2020 Bacterial infection due to mycoplasma 02/15/2024 Vaginal odor 02/15/2024 Urinary tract infection without hematuria 02/15/2024 Bacterial vaginosis 02/15/2024 Resolved Ambulatory Problems Diagnosis Date Noted No Resolved Ambulatory Problems Past Medical History: Diagnosis Date ADHD (attention deficit hyperactivity disorder) ([facility]) Bipolar disorder (manic depression) ([facility]) BMI 24.0-24.9, adult Chicken pox 2007 Headache IBS (irritable bowel syndrome) Intrauterine device surveillance Pelvic pain Urinary tract infection HISTORY PAST MEDICAL HISTORY SOCIAL HISTORY Past Medical History: Diagnosis Date ADHD (attention deficit hyperactivity disorder) ([facility]) Adjustment disorder with mixed anxiety and depressed mood ([facility]) Amenorrhea Anxiety Bipolar disorder (manic depression) ([facility]) BMI 24.0-24.9, adult Chicken pox 2008 Complication of intrauterine device (IUD) ([facility]) Headache IBS (irritable bowel syndrome) IBS [...] SMEAR 05/21/2021 negative WISDOM TOOTH EXTRACTION 2015 [facility] REVIEW OF SYSTEMS Review of Systems: [...] nursing note reviewed. Exam conducted with a online health and fitness coach present. Vitals: Estimated body mass index is [...] of: Jose Pan DO documented in this encounterTenet St. [id number] NoteUrology Office/Clinic Note Chief Complaint referral HPI Staff 29 [...] gross hematuria. Pt. states she was in [place] ER for cystitis Frequency: 2-3 hours Urgency: [...] with voice recognition artificial intelligence software, specifically Swish, Whyd and or [employer]. Substitutions may have occurred due to the [...] OBGYN regarding poss endometriosis dx May be SOIL TESTER source of pain Does not necessarily improve [...] intake. Restrict animal protein. -KUB/ MARCIA at [facility], call pt w/ results Orders: cephalexin, 500 mg = 1 cap(s), Oral, BID, X 7 day(s), # 14 cap(s), Refills(s) 0, Pharmacy: [id number], 174, cm, 03/01/24 10:48:00 EST, Height/Length [...] Mother. Primary malignant neoplasm of female breast: Grandparent.[facility] CenterComment on above:Result Comment: Electronically Signed By: SRUTHI Yu APRN, [place] X\.br\Date and Time Signed: 03/29/24 10:28 [id number] Evaluation + Plan note Diagnostic Tests Pending * Urine Culture 03/21/24 [facility] 11-27-2024 History of Present illness Narrative* Ana Mcintosh LPN - 03/09/2024 11:20 AM EST Reason for Appointment: Patient ID: Faheem Babb is a 29 y.o. female who presents for Pre-op Visit Patient presents today for Pre Op appointment. Patient is scheduled to undergo [place] Neha assisted Diagnostic Laparoscopy, possible ZAHRA, possible FOE, possible BSO on 04/01/[address] Pan at [facility]. MEDICATIONS Current Outpatient Medications Medication Instructions azithromycin (Zithromax) 500 MG tablet Day 1: Take 2 tablets PO onetime dose; Day 2,3,4: Take 1 tablet daily ALLERGIES Allergies Allergen Reactions Bacitracin-Polymyxin B Other Reaction(s): Unknown Lexapro [Escitalopram] Other groggy Buspar [Buspirone] Anxiety Caused heart palpitations and increased anxiety PROBLEMS Active Ambulatory Problems Diagnosis Date Noted Adjustment disorder with mixed anxiety and depressed mood ([facility]) 09/06/2022 Amenorrhea 09/06/2022 Anxiety 09/06/2022 Bipolar affective disorder, currently depressed, moderate ([facility]) 09/06/2022 Complication of intrauterine device (IUD) ([facility]) 09/06/2022 Inattention 09/06/2022 Irregular menses 09/06/2022 Irritable bowel syndrome with diarrhea 09/06/2022 Menstrual cramp 09/06/2022 Pain in pelvis 09/06/2022 Generalized anxiety disorder ([facility]) 09/06/2022 Post-traumatic stress disorder ([facility]) 09/06/2022 Slow transit constipation 09/06/2022 Anxiety during 03/26/2020 Depression affecting ([facility]) 03/26/2020 History of chlamydia 03/26/2020 Bacterial infection due to mycoplasma 02/15/2024 Vaginal odor 02/15/2024 Urinary tract infection without hematuria 02/15/2024 Bacterial vaginosis 02/15/2024 Resolved Ambulatory Problems Diagnosis Date Noted No Resolved Ambulatory Problems Past Medical History: Diagnosis Date ADHD (attention deficit hyperactivity disorder) ([facility]) Bipolar disorder (manic depression) ([facility]) BMI 24.0-24.9, adult Chicken pox 2007 Headache IBS (irritable bowel syndrome) Intrauterine device surveillance Pelvic pain Urinary tract infection HISTORY PAST MEDICAL HISTORY SOCIAL HISTORY Past Medical History: Diagnosis Date ADHD (attention deficit hyperactivity disorder) ([facility]) Adjustment disorder with mixed anxiety and depressed mood ([facility]) Amenorrhea Anxiety Bipolar disorder (manic depression) ([facility]) BMI 24.0-24.9, adult Chicken pox 2007 Complication of intrauterine device (IUD) ([facility]) Headache IBS (irritable bowel syndrome) IBS with [...] SMEAR 05/21/2021 negative WISDOM TOOTH EXTRACTION 2015 [facility] REVIEW OF SYSTEMS Review of Systems: [...] nursing note reviewed. Exam conducted with a online health and fitness coach present. Vitals: Estimated body mass index is [...] were signed, mmc was reviewed, and patient isto proceed to [facility]. Pt has vaginal discharge and recurrent bv- rx for xaciato and metrogel faxed to pharmacy. Follow Up: Patient is to follow up between 1-2 weeks post operative to assess proper healing and recovery fromprocedure. Documented by Ana Mcintosh LPN on behalf of: Jose Pan DO documented in this encounterTenet St. [id number] History of Present illness Narrative* Estela Phipps LPN - 02/15/2024 11:00 AM EST Reason for Appointment: Patient ID: Faheem Babb is a 29 y.o. female who presents [...] disorder with mixed anxiety and depressed mood ([facility]) 09/06/2022 Amenorrhea 09/06/2022 Anxiety 09/06/2022 Bipolar affective disorder, currently depressed, moderate [facility] [facility]) 09/06/2022 Complication of intrauterine device (IUD) ([facility]) 09/06/2022 Inattention 09/06/2022 Irregular menses 09/06/2022 Irritable bowel syndrome with diarrhea 09/06/2022 Menstrual cramp 09/06/2022 Pain in pelvis 09/06/2022 Generalized anxiety disorder ([facility] 09/06/2022 Post-traumatic stress disorder ([facility]) 09/06/2022 Slow transit constipation 09/06/2022 Anxiety during 03/26/2020 Depression affecting ([facility]) 03/26/2020 History of chlamydia 03/26/2020 Resolved Ambulatory Problems Diagnosis Date Noted No Resolved Ambulatory Problems Past Medical History: Diagnosis Date ADHD (attention deficit hyperactivity disorder) ([facility]) Bipolar disorder (manic depression) ([facility]) BMI 24.0-24.9, adult Chicken pox 2007 Headache IBS (irritable bowel syndrome) Intrauterine device surveillance Pelvic pain Urinary tract infection HISTORY PAST MEDICAL HISTORY SOCIAL HISTORY Past Medical History: Diagnosis Date ADHD (attention deficit hyperactivity disorder) ([facility]) Adjustment disorder with mixed anxiety and depressed mood ([facility]) Amenorrhea Anxiety Bipolar disorder (manic depression) ([facility]) BMI 24.0-24.9, adult Chicken pox 2008 Complication of intrauterine device (IUD) ([facility]) Headache IBS (irritable bowel syndrome) IBS with [...] SMEAR 05/21/2021 negative WISDOM TOOTH EXTRACTION 2015 [place] [facility] REVIEW OF SYSTEMS Review of Systems: [...] nursing note reviewed. Exam conducted with a online health and fitness coach present. Vitals: Estimated body mass index is [...] Sent in medication regimen for Mycoplasma and explainedto patient how to take medications. Patient voiced that she has frequent UTI's and would like a refe rral to Urology. Patient aware that Recreation Technician will reach out to her to sent up surgery datefor Dx Lap as well. Patient aware of referral process. Documented by Estela Phipps LPN on behalf of: Jose Pan DO documented in this encounterNOMS [id number] History of Present illness Narrative* ALISA Coyle - 01/27/2024 2:00 PM EDT Reason for Appointment: Patient ID: Faheem Babb is a 28 y.o. female who presents [...] disorder with mixed anxiety and depressed mood ([facility]) 09/06/2022 Amenorrhea 09/06/2022 Anxiety 09/06/2022 Bipolar affective disorder, currently depressed, moderate ([facility] 09/06/2022 Complication of intrauterine device (IUD) ([facility]) 09/06/2022 Inattention 09/06/2022 Irregular menses 09/06/2022 Irritable bowel syndrome with diarrhea 09/06/2022 Menstrual cramp 09/06/2022 Pain in pelvis 09/06/2022 Generalized anxiety disorder ([facility]) 09/06/2022 Post-traumatic stress disorder ([facility]) 09/06/2022 Slow transit constipation 09/06/2022 Anxiety during 03/26/2020 Depression affecting ([facility]) 03/26/2020 History of chlamydia 03/26/2020 Resolved Ambulatory Problems Diagnosis Date Noted No Resolved Ambulatory Problems Past Medical History: Diagnosis Date ADHD (attention deficit hyperactivity disorder) ([facility]) Bipolar disorder (manic depression) ([facility]) BMI 24.0-24.9, adult Chicken pox 2007 Headache IBS (irritable bowel syndrome) Intrauterine device surveillance Pelvic pain Urinary tract infection HISTORY PAST MEDICAL HISTORY SOCIAL HISTORY Past Medical History: Diagnosis Date ADHD (attention deficit hyperactivity disorder) ([facility]) Adjustment disorder with mixed anxiety and depressed mood ([facility]) Amenorrhea Anxiety Bipolar disorder (manic depression) ([facility]/HCC) BMI 24.0-24.9, adult Chicken pox 2008 Complication of intrauterine device (IUD) ([facility]) Headache IBS (irritable bowel syndrome) IBS [...] SMEAR 05/21/2021 negative WISDOM TOOTH EXTRACTION 2015 [facility] REVIEW OF SYSTEMS Review of Systems: [...] nursing note reviewed. Exam conducted with a online health and fitness coach present. Vitals: Estimated body mass index is [...] behalf of: ALISA Coyle documented in this encounterTenet St. [id number] History of Present illness Narrative* Estela Phipps, CLIFFORD - 01/11/2024 11:10 AM EDT Reason for Appointment: Patient ID: Faheem Babb is a 28 y.o. female who presents for pelvic pressure Patient presents today for Consult appointment. MEDICATIONS No current outpatient medications ALLERGIES Allergies Allergen Reactions Bacitracin-Polymyxin B Other Reaction(s): Unknown Lexapro [Escitalopram] Other groggy Buspar [Buspirone] Anxiety Caused heart palpitations and increased anxiety PROBLEMS Active Ambulatory Problems Diagnosis Date Noted Adjustment disorder with mixed anxiety and depressed mood ([facility]) 09/06/2022 Amenorrhea 09/06/2022 Anxiety 09/06/2022 Bipolar affective disorder, currently depressed, moderate ([facility]) 09/06/2022 Complication of intrauterine device (IUD) ([facility]) 09/06/2022 Inattention 09/06/2022 Irregular menses 09/06/2022 Irritable bowel syndrome with diarrhea 09/06/2022 Menstrual cramp 09/06/2022 Pain in pelvis 09/06/2022 Generalized anxiety disorder ([facility]) 09/06/2022 Post-traumatic stress disorder ([facility]) 09/06/2022 Slow transit constipation 09/06/2022 Anxiety during 03/26/2020 Depression affecting ([facility]) 03/26/2020 History of chlamydia 03/26/2020 Resolved Ambulatory Problems Diagnosis Date Noted No Resolved Ambulatory Problems Past Medical History: Diagnosis Date ADHD (attention deficit hyperactivity disorder) ([facility]) Bipolar disorder (manic depression) ([facility]) BMI 24.0-24.9, adult Chicken pox 2008 Headache IBS (irritable bowel syndrome) Intrauterine device surveillance Pelvic pain Urinary tract infection HISTORY PAST MEDICAL HISTORY SOCIAL HISTORY Past Medical History: Diagnosis Date ADHD (attention deficit hyperactivity disorder) ([facility]) Adjustment disorder with mixed anxiety and depressed mood ([facility]) Amenorrhea Anxiety Bipolar disorder (manic depression) ([facility]) BMI 24.0-24.9, adult Chicken pox 2008 Complication of intrauterine device (IUD) ([facility]) Headache IBS (irritable bowel syndrome) IBS [...] SMEAR 05/21/2021 negative WISDOM TOOTH EXTRACTION 2015 [facility] REVIEW OF SYSTEMS Review of Systems: [...] nursing note reviewed. Exam conducted with a online health and fitness coach present. Vitals: Estimated body mass index is [...] obtained in office showed trace blood. Urine willbe sent off for culture. Obtained vaginal cultures [...] of: Jose Pan DO documented in this encounterNOOK HealthcareEvaluation + Plan note No data available for this section [facility] evalltkjeu [facility]* Diagnosis Ureteral stone with hydronephrosis Calculus of ureter Suprapubic pain Abdominal pain, other specified site Dysuria Urgency of urination documented in this encounter [facility] Phone: evaluation note* Diagnosis Ureteral stone with hydronephrosis Calculus of ureter documented in this encounter [employer] Phone: evaluation note* Diagnosis Ureteral stone with hydronephrosis Calculus of ureter Suprapubic pain Abdominal pain, other specified site Dysuria Urgency of urination documented in this encounter [employer] Phone: evaluation note* Diagnosis Well woman exam [...] vaginitis and vulvovaginitis documented in this encounter [facility] Healthcare[facility] note* Diagnosis Pelvic pain in female Unspecified symptom associated with female genital organs documented in this encounter [facility] note* Diagnosis Postoperative examination Follow-up examination, following unspecified surgery documented in this encounter [facility]* Diagnosis Vaginal discharge Leukorrhea, not specified as infective Vaginal burning Other specified symptom associated with female genital organs documented in this encounter [facility]* Diagnosis Encounter for removal of sutures- Primary Cellulitis of finger of right hand documented in this encounter [facility] HealthcareEvaluation note* Diagnosis Mass of lower [...] encounter [facility]Evaluation note* Diagnosis Second trimester ([facility]) state, incidental 14 weeks gestation of ([facility]) Screen for STD (sexually transmitted disease) Screening examination for venereal disease documented in this encounter [facility]* Diagnosis Second trimester ([facility]) state, incidental 16 weeks gestation of ([facility]) Screening, , for anatomic survey ([facility]) Encounter for anatomic survey documented in this encounter [facility]* Diagnosis Screening, , for anatomic survey ([facility])- Primary Encounter for anatomic survey Second trimester ([facility]) state, incidental 20 weeks gestation of ([facility]) documented in this encounter [facility]* Diagnosis Acne, unspecified acne type- Primary Second trimester ([facility]) state, incidental 24 weeks gestation of ([facility]) Diabetes mellitus screening Screening for diabetes mellitus Screening, , for anatomic survey ([facility]) Encounter for anatomic survey documented in this encounter [facility] HealthcareEvaluation note* Diagnosis Second trimester ([facility]) state, incidental 27 weeks gestation of ([facility]) documented in this encounter [facility]* Diagnosis Third trimester ([facility]) state, incidental 29 weeks gestation of ([facility]) Choroid plexus cyst Cerebral cysts documented in this encounter [facility] HealthcareEvaluation note* Diagnosis Encounter for ultrasound recheck of choroid plexus cyst, antepartum ([facility]) Third trimester ([facility]) state, incidental 31 weeks gestation of ([facility]) size inconsistent with dates ([facility]) documented in this encounter [facility] HealthcareHospital Discharge instructions No data available for this section [facility] progress note No data available for this section [facility] Advance Directives No Advanced Directives Records FoundDocuments on File TypeDate RecordedPatient RepresentativeExplanationACP-Advance DirectiveACP-Power of AttorneyCode StatusDate ActivatedDate InactivatedCommentsFull Code03/28/2014 9:49 AM03/28/2014 5:17 PMTypeDate RecordedPatient RepresentativeExplanationACP- Advance DirectiveACP-Power of AttorneyCode StatusDate ActivatedDate Inactivated CommentsFull Code03/28/2014 9:49 AM03/28/2014 5:17 PM Reason for Referral SpecialtyDiagnoses / ProceduresReferred By ContactReferred To ContactRadiology Diagnoses Ureteral stone with hydronephrosis Suprapubic pain Dysuria Urgency of urination Procedures US RENAL COMPLETE Jason Bradley, SHIPPING AND RECEIVING WEIGHER - PARQUET FLOOR LAYER'S HELPER [address] [place] [address] Referral IDStatusReasonStart DateExpiration DateVisits RequestedVisits [id number] Summary Purpose Family History No Family History [...] Care Teams (unrecognized sec tion and content) Team MemberRelationshipSpecialtyStart DateEnd Date Sri Ramírez MD [address] [place] [address] [facility] - [facility] MemberRelationshipSpecialtyStart DateEnd Date Sri Ramírez MD [facility] [place] [address] PCP - [place] [phone] MemberRelationshipSpecialtyStart DateEnd [facility] Sri Ramírez MD [facility] [place] [address] PCP - [place] [phone] MemberRelationshipSpecialtyStart DateEnd Date Sri Ramírez MD [address] [place] [id number] PCP - [place] [address]Te MemberRelationshipSpecialtyStart DateEnd Date Sri Ramírez MD [address] [place] [address] PCP - GeneralFainly [facility]09/19/22 Daisy Hurst APRN-NEUROLOGY TEACHER [address] [facility] [address] [place] [address] PCP - [facility]09/12/23 Kayla Kahn DO [address] [place] [address] Referring Physician09/19/22Te MemberRelationshipSpecialtyStart DateEnd Date Sri Ramírez MD [address] [place] [facility] [address] PCP - [facility]09/19/22 Daisy Hurst, SHIPPING AND RECEIVING WEIGHER-NEUROLOGY TEACHER [address] [place] [address] PCP - [facility]09/12/23 Kayla Kahn, DO [address] [place] [address] Referring Physician09/19/22Te MemberRelationshipSpecialtyStart DateEnd Date Sri Ramírez MD [address] [place] [facility] [address] PCP - [facility] Medicine09/19/22 Daisy Hurst, SHIPPING AND RECEIVING WEIGHER-NEUROLOGY TEACHER [address] [facility] [address] [place] [address] PCP - [employer]09/12/23 Kayla Kahn DO [address] [place] [address] Referring Physician09/19/22Te MemberRelationshipSpecialtyStart DateEnd Date Sri Ramírez MD [address] [place] [address] PCP - [facility] Medicine09/19/22 Daisy Hurst, SHIPPING AND RECEIVING WEIGHER-NEUROLOGY TEACHER [address] [place] [address] PCP - [employer]09/12/23 Kayla Kahn DO [address] [facility] [address] [place] [address] Referring Physician09/19/22Te MemberRelationshipSpecialtyStart DateEnd [facility] Sri Ramírez MD [address] [place] [address] PCP - [facility] Medicine09/19/22 Daisy Hurst, SHIPPING AND RECEIVING WEIGHER-NEUROLOGY TEACHER [address] [facility] [address] [place] [address] PCP - [employer]09/12/23 Kayla Kahn DO [address] [place] [address] Referring Physician09/19/22Te MemberRelationshipSpecialtyStart [facility] Sri Ramírez MD [address] [place] [address] PCP - [facility] Medicine09/19/22 Daisy Hurst, SHIPPING AND RECEIVING WEIGHER-NEUROLOGY TEACHER [address] [facility] [address] [place] [address] PCP - [employer]09/12/23 Kayla Kahn DO [address] [place] [address] Referring Physician09/19/22Te MemberRelationshipSpecialtyStart DateEnd [facility] Sri Ramírez MD [address] [place] [address] PCP - GeneralFamily Medicine09/19/22 Daisy Hurst, SHIPPING AND RECEIVING WEIGHER-NEUROLOGY TEACHER [address] [facility] [address] [place] [address] PCP - [employer]09/12/23 Kayla Kahn, DO [address] [place] [address] Referring Physician09/19/22Team MemberRelationshipSpecialtyStart DateEnd Date Sri Ramírez MD [address] [place] [address] PCP - [facility]FaCol[facility]09/19/22 Daisy Hurst, SHIPPING AND RECEIVING WEIGHER-NEUROLOGY TEACHER [address] [facility] [address] [place] [address] PCP - [employer]09/12/23 Kayla Kahn DO [address] [place] [address] Referring Physician09/19/22Team MemberRelationshipSpecialtyStart DateEnd Date Sri Ramírez MD [address] [place] [address] PCP - [facility] Medicine09/19/22 Daisy Hurst, SHIPPING AND RECEIVING WEIGHER-NEUROLOGY TEACHER [address] [facility] [address] [place] [address] PCP - [employer]09/12/23 Kayla Kahn DO [address] [facility] [place] [address] Referring Physician09/19/22Te MemberRelationshipSpecialtyStart [facility] Sri Ramírez MD [address] [facility] [place] [address] PCP - GeneralFamily Medicine09/19/22 Daisy Hurst, SHIPPING AND RECEIVING WEIGHER-NEUROLOGY TEACHER [address] [place] [address] PCP - [employer]09/12/23 Kayla Kahn DO [address] [facility] [place] [address] Referring Physician09/19/22Te MemberRelationshipSpecialtyStart [facility] Sri Ramírez MD [address] [facility] [place] [address] PCP - [facility] Medicine09/19/22 Daisy Hurst, SHIPPING AND RECEIVING WEIGHER-NEUROLOGY TEACHER [address] [facility] [address] [place] [address] PCP - [employer]09/12/23 Kayla Kahn DO [address] [facility] [place] [address] Referring Physician09/19/22Te MemberRelationshipSpecialtyStart [facility] Sri Ramírez MD [address] [place] [address] PCP - [facility] Medicine09/19/22 Daisy Hurst, SHIPPING AND RECEIVING WEIGHER-NEUROLOGY TEACHER [address] [place] [address] PCP - [employer]09/12/23 Kayla Kahn DO [facility] [place] [address] Referring Physician09/19/22Team MemberRelationshipSpecialtyStart [facility] Sri Ramírez MD [address] [place] [address] PCP - GeneralFamily Medicine09/19/22 Daisy Hurst SHIPPING AND RECEIVING WEIGHER-NEUROLOGY TEACHER [address] [place] [address] PCP - [employer]09/12/23 Kayla Kahn DO [facility] [place] [address] Referring Physician09/19/22Team MemberRelationshipSpecialtyStart DateOakbend Medical Center Sri Ramírez MD [facility] [place] [address] PCP - GeneralFamily Medicine09/19/22 Daisy Hurst, SHIPPING AND RECEIVING WEIGHER-NEUROLOGY TEACHER [address] [place] [address] PCP - [employer]09/12/23 Kayla Kahn DO [address] [place] [address] Referring Physician09/19/22Te MemberRelationshipSpecialtyStart DateOakbend Medical Center Sri Ramírez MD [address] [facility] [place] [address] PCP - GeneralFamily Medicine09/19/22 Daisy Hurst, [facility] [address] [facility] [address] [place] [address] PCP - [employer]09/12/23 Kayla Kahn DO [address] [facility] [place] [address] Referring Physician09/19/22Te MemberRelationshipSpecialtyStart DateEnd Date Sri Ramírez MD [address] [facility] [place] [address] PCP - [facility] Medicine09/19/22 Daisy Hurst, SHIPPING AND RECEIVING WEIGHER-NEUROLOGY TEACHER [address] [facility] [address] [place] [address] PCP - [employer]09/12/23 Kayla Kahn DO [address] [facility] [place] [address] Referring Physician09/19/22Te MemberRelationshipSpecialtyStart DateEnd Date Sri Ramírez MD [address] [place] [address] PCP - [facility]09/19/22 Kayla Kahn DO [address] [facility] [place] [address] Referring Physician09/19/22Team MemberRelationshipSpecialtyStart DateEnd Date Sri Ramírez MD [address] [place] [address] PCP - [facility] Medicine09/19/22 Kayla Kahn DO [address] [place] [address] Referring Physician09/19/22Te MemberRelationshipSpecialtyStart DateEnd Date Sri Ramírez MD [address] [place] [address] PCP - [facility]09/19/22 Kayla Kahn DO [address] [place] [address] Referring Physician09/19/22Te MemberRelationshipSpecialtyStart DateEnd Date Sri Ramírez MD [address] [place] [address] PCP - [facility]09/19/22 Kayla Kahn DO [address] [place] [address] Referring Physician09/19/22Te MemberRelationshipSpecialtyStart DateEnd Date Sri Ramírez MD [address] [place] [address] PCP - [facility]09/19/22 Kalya Kahn DO [address] [place] [address] Referring Physician09/19/22Team MemberRelationshipSpecialtyStart DateEnd Date Sri Ramírez MD [address] [facility] [place] [address] PCP - [facility] Medicine09/19/22 Kayla Kahn DO [address] [place] [address] Referring Physician09/19/22Team MemberRelationshipSpecialtyStart DateEnd Date Sri Ramírez MD [address] [place] [address] PCP - [facility]09/19/22 Kayla Kahn DO [address] [place] [address] Referring Physician09/19/22Te MemberRelationshipSpecialtyStart DateEnd Date Sri Ramírez MD [address] [place] [address] PCP - [facility]09/19/22 Kayla Kahn DO [address] [place] [address] Referring Physician09/19/22Te MemberRelationshipSpecialtyStart DateEnd Date Sri Ramírez MD [address] [place] [address] PCP - [facility]09/19/22 Kayla Kahn DO [address] [place] [address] Referring Physician09/19/22Team MemberRelationshipSpecialtyStart DateEnd Date Sri Ramírez MD [address] [place] [address] PCP - GeneralFamily Medicine09/19/22 Kayla Kahn DO [address] [place] [address] Referring Physician09/19/22 Reason for Visit (unrecogniz ed section and content) SpecialtyDiagnoses / ProceduresReferred By ContactReferred To ContactRadiology Diagnoses Ureteral stone with hydronephrosis Suprapubic pain Dysuria Urgency of urination Procedures US RENAL COMPLETE Jason Bradley, SHIPPING AND RECEIVING WEIGHER - PARQUET FLOOR LAYER'S HELPER [address] [facility] [address] [place] [address] Referral IDStatusReasonStart DateExpiration DateVisits RequestedVisits [id number] Women VisitReason CommentsVaginitis/Bacterial VaginosisPt present today for follow up on BV/UTI. Pt complains of having an odor and would like cx's done at todays visit.Reason CommentsPre-op VisitReasonCommentspelvic pressureReasonCommentsPost-op Visit ReasonCommentsBV and CulturesReasonCommentsER Follow-upReasonCommentsAnnual Exam Breast MassReasonCommentsAmenorrheaReasonCommentsRoutine Visit INFORMATION SOURCE (unrecogn ized section and content) DATE CREATED AUTHOR 06/23/2021 [facility] DATE CREATED AUTHOR AUTHOR'S ORGANIZ ATION 05/20/2022 [facility] DATE CREATED AUTHOR AUTHOR'S ORGANIZ ATION 09/25/2023 [facility] DATE CREATED AUTHOR AUTHOR'S ORGANIZ ATION 03/27/2024 [facility] DATE CREATED AUTHOR AUTHOR'S ORGANIZ ATION 04/13/2024 [facility] DATE CREATED AUTHOR AUTHOR'S ORGANIZ ATION 08/02/2024 [facility] DATE CREATED AUTHOR AUTHOR'S ORGANIZ ATION 01/25/2025 [facility] FOR RECORDS PERTAINING TO PATIENTS WHO ARE [...] BE BASED ON THE PRIMARY CLINICAL RECORDS. [facility] provides no warranty or guarantee of the accuracy or completeness of information in this document.
== END 2025-02-01 13:34 | disposition home or self-care (01) ==
LOC: US 13:33
PROVIDERS: PCP Family Medicine; Visit Provider Obstetrics & Gynecology
DX: O26.843 Uterine size-date discrepancy, third trimester (principal); Z3A.32 32 weeks gestation of pregnancy
CPT/HCPCS: 76816

== ENCOUNTER 2025-02-15 13:31 | Observation (INO) | payer BC, SELFPAY ==
--- OUTSIDE RECORDS SUMMARY | 2025-01-24 09:00 | XMS_ITS | Encounter Summary ---
Author Organization [facility] Address [address] [place] [address] Care Team Providers Care Media Arts Professor Name Role Phone Sri Ramírez MD Primary Care Provider [phone] Kayla Kahn DO Unavailable [phone] Reason for Visit * ReasonCommentsRoutine Visit Encounter Details DateTypeDepartmentCare Team (Latest Contact Info)Xjnirfcngxd53/14/2025 10:00 AM EDTRoutine [facility] [address] [address] Jose Pan DO [address] [place] [address] Encounter for ultrasound recheck of choroid plexus cyst, antepartum ([facility]); Third trimester ([facility]); 31 weeks gestation of ([facility]); size inconsistent with dates ([facility]) Social History Tobacco UseTypesPacks/DayYears UsedDateSmoking Tobacco: FormerCigarettes0.55 Smokeless Tobacco: NeverAlcohol UseStandard Drinks/WeekCommentsNever0 (1 standard drink = 0.6 oz pure alcohol)caffeine: 1-2 cups coffee or energy drink [id number] Health LiteracyAnswerDate RecordedHow often do you need [...] a week 09/24/2023How often do you attend holiness or lutheran services?Patient declined 09/24/2023o you belong to any clubs or organizations such as holiness groups, unions, fraternal or athletic groups, or school groups?No09/24/2023How often do you attend meetings of the clubs or organizations you belong to?Never09/24/2023 Are you , , , , never , or living with a partner?Patient lyzxpzqc42/13/2024UDIT-CAnswerDate RecordedQ1: How often do you have a [...] heating?Not hard at all09/24/2023HQ-2AnswerDate RecordedPatient Health Questionnaire-2 Ncupu538Finameric[facility] [place] of Occupational Health - Occupational Stress QuestionnaireAnswerDate [...] were you homeless or living in a assisted (including now)?No09/24/2023 Estimated Date of KkhvijmyRxwhuxdcNma68/14/2025ased on last menstrual period of 06/19/2024Sex and Gender InformationValueDate RecordedSex Assigned at BirthNot on fileLegal UcqMhovay14/15/2023 6:40 PM EDTGender IdentityNot on file Sexual OrientationNot on filedocumented as of this encounter Last Filed Vital Signs Vital SignReadingTime TakenCommentsBlood Fbthqsos443/7201/24/2025 10:15 AM EDT Pulse--Temperature--Respiratory Rate--Oxygen Saturation--Inhaled Oxygen Concentration--Kzasjf67.2 kg (172 lb 6.4 oz)01/24/2025 10:15 AM EDTHeight--Body Mass Zeozd5807/07/2025 8:15 AM EDTdocumented in this encounter Progress Notes * Ana Mcintosh LPN - 01/24/2025 10:00 AM EDT Reason for Appointment: Patient ID: [...] NEEDED FOR NAUSEA & FOR VOMITING ALLERGIES Allergies[1] PROBLEMS Active Ambulatory Problems Diagnosis Date Noted Adjustment disorder with mixed anxiety and depressed mood 09/06/2022 Amenorrhea 09/06/2022 Anxiety 09/06/2022 Bipolar affective disorder, currently depressed, moderate ([facility]) 09/06/2022 Complication of intrauterine device (IUD) 09/06/2022 Inattention 09/06/2022 Irregular menses 09/06/2022 Irritable bowel syndrome with diarrhea 09/06/2022 Menstrual cramp 09/06/2022 Pain in pelvis 09/06/2022 Generalized anxiety disorder 09/06/2022 Post-traumatic stress disorder 09/06/2022 Slow transit constipation 09/06/2022 Anxiety during ([facility]) 03/26/2020 Depression affecting ([facility]) 03/26/2020 History of chlamydia 03/26/2020 Bacterial infection due to mycoplasma 02/15/2024 Vaginal odor 02/15/2024 Urinary tract infection without hematuria 02/15/2024 Bacterial vaginosis 02/15/2024 Bladder pain 07/18/2024 Calculus of kidney 07/25/2013 Gross hematuria 07/18/2024 Resolved Ambulatory Problems Diagnosis Date Noted No Resolved Ambulatory Problems Past Medical History: Diagnosis Date ADHD (attention deficit hyperactivity disorder) Bipolar disorder (manic depression) ([facility]) BMI 24.0-24.9, adult Chicken pox 2007 Headache IBS (irritable bowel syndrome) Intrauterine device surveillance Pelvic pain Urinary tract infection HISTORY PAST MEDICAL HISTORY SOCIAL HISTORY Medical History[2] Social History Tobacco Use Smoking status: Former Current packs/day: 0.50 Average packs/day: 0.5 packs/day for 5.0 years (2.5 ttl pk-yrs) Types: Cigarettes Smokeless tobacco: Never Vaping Use Vaping status: Never Used Substance Use Topics Alcohol use: Never Comment: caffeine: 1-2 cups coffee or energy drink occasionally Drug use: Never Types: Marijuana Comment: Quit in August FAMILY HISTORY Family History[3] SURGICAL HISTORY Surgical History[4] REVIEW OF SYSTEMS Review of Systems: Review [...] nursing note reviewed. Exam conducted with a manager of software present. Vitals: Estimated body mass index is 27 kg/m?? as calculated from the following: Height as of 07/18/24: 5' 7 . Weight as of this encounter: 172 lb 6.4 oz. BP: 108/72 Patient's last menstrual period was 06/19/2024. ASSESSMENT & PLAN ICD-10-CM 1. Encounter for ultrasound recheck of choroid plexus cyst, antepartum ([facility]) O35.03X0 US OB limited 1+ fetuses 2. Third trimester ([facility]) Z34.93 3. 31 weeks gestation of ([facility]) Z3A.31 POCT urinalysis dipstick manually resulted 4. size inconsistent with dates ([facility]) O26.849 US OB follow up transabdominal approach Documented by Ana Mcintosh LPN on behalf of: Jose Pan DO [1] Allergies Allergen Reactions Bacitracin-Polymyxin B Other Reaction(s): Unknown Escitalopram Other groggy Other Reaction(s): Sleepy Buspar [Buspirone] Anxiety Caused heart palpitations and increased anxiety [2] Past Medical History: Diagnosis Date ADHD (attention deficit hyperactivity disorder) Adjustment disorder with mixed anxiety and depressed mood Amenorrhea Anxiety Bipolar disorder (manic depression) ([facility]) BMI 24.0-24.9, adult Chicken pox 2007 Complication of intrauterine device (IUD) Headache IBS (irritable bowel syndrome) IBS with diarrhea Inattention Intrauterine device surveillance Irregular menses Pelvic pain Urinary tract infection [3] Family History Problem Relation Name Age of Onset Cancer Mother kaila Mental illness Mother kaila manic depressive bipolar disorder No Known Problems Brother 2 brothers Breast cancer Paternal Grandmother juan pablo Cancer Paternal Grandmother juan pablo No Known Problems Daughter [4] Past Surgical History: Procedure Laterality Date LAPAROSCOPY DIAGNOSTIC / BIOPSY / ASPIRATION / LYSIS 04/01/2024 LITHOTRIPSY 2014 kidney stones/lithotrypsy PAP SMEAR 05/21/2021 negative WISDOM TOOTH EXTRACTION 2014 [place] teeth documented in this encounter Plan of Treatment DateTypeDepartmentCare Team (Latest Contact Info)Oozsxyfgcxh17/11/2025 10:30 AM ESTRoutine [facility] [address] [phone] Jose Pan, [address] [place], [place] [id number] NameTypePriorityAssociated DiagnosesOrder ScheduleUS OB follow up transabdominal approachImagingRoutine size inconsistent with dates ([facility]) Expected: 01/24/2025, Expires: 05/27/2025documented as of this encounter Procedures Procedure NamePriorityDate/TimeAssociated DiagnosisCommentsPOCT URINALYSIS EZNGYXCKHrevhth37/14/2025 10:23 AM EDT 31 weeks gestation of ([facility]) documented in this encounter Results * POCT urinalysis dipstick manually resulted (01/24/2025 10:23 AM EDT)Component ValueRef RangeTest MethodAnalysis TimePerformed AtPathologist SignatureColor, UAYellowClarity, UAClearGlucose, UANegativeNegative - 2000(110) ++++ mg/dL Bilirubin, UANegativeNegative - 4(70) +++ mg/dLKetones, UANegativeNegative - 160(16) ++++ mg/dLSpec Grav, UA1.0101 - 1.03Blood, UANegativeNegative - 50 Allen/mcLpH, UA6.55 - 9Protein, UANegativeNegative - 2000(20) ++++ mg/dL Urobilinogen, UA2.00.2 - 12 mg/dLLeukocytes, UANegativeNegative - 500+++ Andrei/mcLNitrite, UANegativeNegative - PositiveSpecimen (Source)Anatomical Location / LateralityCollection Method / VolumeCollection TimeReceived Time Urine01/24/2025 10:23 AM EDT Narrative Authorizing ProviderResult TypeResult StatusJose Pan DOPOINT OF CARE TEST ENTER/EDIT ORDERABLESFinal Result * US OB limited 1+ fetuses (01/24/2025 10:06 AM EDT)Anatomical RegionLaterality ModalityBodyUltrasoundSpecimen (Source)Anatomical Location / Laterality Collection Method / VolumeCollection TimeReceived Time01/24/2025 12:04 PM EDT Impressions 01/24/2025 2:47 PM EDT Normal intracranial appearing, viable intrauterine . TRANSCRIBED BY: ? ELECTRONICALLY SIGNED BY: Elpidio Díaz MD Narrative 01/24/2025 2:47 PM EDT FINDINGS: Comparison made with prior examination of November 18, 2024. Single viable intrauterine with normal and cardiac activity, heart rate 144 bpm. ?? Intracranial examinations demonstrates no significant choroid plexus cyst or hydrocephalus. Gestational age of 31 weeks, 2 days with an estimated delivery date of March 26, 2025. Procedure Note Elpidio Díaz MD - 01/24/2025 FINDINGS: Comparison made with prior examination of November 18, 2024. Single viable intrauterine with normal and cardiacactivity, heart rate 144 bpm. Intracranial examinations demonstrates no significant choroid plexus cystor hydrocephalus. Gestational age of 31 weeks, 2 days with an estimated delivery date ofMarch 26, 2025. IMPRESSION: Normal intracranial appearing, viable intrauterine . TRANSCRIBED BY: ELECTRONICALLY SIGNED BY: Elpidio Díaz MD Authorizing ProviderResult TypeResult StatusCorey Maxim [facility] OB US PROCEDURES Final Result documented in this encounter Visit Diagnoses Diagnosis Encounter for ultrasound recheck of choroid plexus cyst, antepartum ([facility]) Encounter for ultrasound recheck of choroid plexus cyst, antepartum ([facility]) Third trimester ([facility]) state, incidental 31 weeks gestation of ([facility]) size inconsistent with dates ([facility]) documented in this encounter Care Teams Team MemberRelationshipSpecialtyStart DateEnd Date Sri Ramírez MD [address] [place], [place] [id number] PCP - GeneralFamily Medicine09/19/22 Kayla Kahn DO [address] [place] [address] Referring Physician09/19/22documented as of this encounter
--- OUTSIDE RECORDS SUMMARY | 2025-02-07 09:20 | XMS_ITS | Encounter Summary ---
Author Organization [facility] Address [address] [place] [address] Care Team Providers Care Metal Storage Worker Name Role Phone Sri Ramírez MD Primary Care Provider [phone] Kayla Kahn DO Unavailable [phone] Reason for Visit * ReasonCommentsRoutine Visit Encounter Details DateTypeDepartmentCare Team (Latest Contact Info)Ymtjtxxkwbq69/28/2025 10:20 AM EDTRoutine [facility] [address] [place] [phone] Jose Pan DO [address] [place] [phone] Third trimester ([facility]); 33 weeks gestation of ([facility]) Social History Tobacco UseTypesPacks/DayYears UsedDateSmoking Tobacco: FormerCigarettes0.55 Smokeless Tobacco: NeverAlcohol UseStandard Drinks/WeekCommentsNever0 (1 standard drink = 0.6 oz pure alcohol)caffeine: 1-2 cups coffee or energy drink [id number] Health LiteracyAnswerDate RecordedHow often do you need [...] a week 09/24/2023How often do you attend mandaen or alevism services?Patient declined 09/24/2023o you belong to any clubs or organizations such as mandaen groups, unions, fraternal or athletic groups, or school groups?No09/24/2023How often do you attend meetings of the clubs or organizations you belong to?Never09/24/2023 Are you , , , , never , or living with a partner?Patient mgghlrei76/13/2024UDIT-CAnswerDate RecordedQ1: How often do you have a [...] heating?Not hard at all09/24/2023HQ-2AnswerDate RecordedPatient Health Questionnaire-2 Ouoyz786Finhigh[facility] [place] of Occupational Health - Occupational Stress QuestionnaireAnswerDate [...] were you homeless or living in a fci (including now)?No09/24/2023 Estimated Date of MprxtfbxVhzbuwjxImw13/14/2025ased on last menstrual period of 06/19/2024Sex and Gender InformationValueDate RecordedSex Assigned at BirthNot on fileLegal OecRfrodk05/15/2023 6:40 PM EDTGender IdentityNot on file Sexual OrientationNot on filedocumented as of this encounter Last Filed Vital Signs Vital SignReadingTime TakenCommentsBlood Mitebmuh343/6802/07/2025 10:23 AM EDT Pulse--Temperature--Respiratory Rate--Oxygen Saturation--Inhaled Oxygen Concentration--Otxled19.7 kg (175 lb 12.8 oz)02/07/2025 10:23 AM [...] 09/06/2022 Bipolar affective disorder, currently depressed, moderate ([facility]) 09/06/2022 Complication of intrauterine device (IUD) 09/06/2022 Inattention 09/06/2022 Irregular menses 09/06/2022 Irritable bowel syndrome with diarrhea 09/06/2022 Menstrual cramp 09/06/2022 Pain in pelvis 09/06/2022 Generalized anxiety disorder 09/06/2022 Post-traumatic stress disorder 09/06/2022 Slow transit constipation 09/06/2022 Anxiety during ([facility]) 03/26/2020 Depression affecting ([facility]) 03/26/2020 History of chlamydia 03/26/2020 Bacterial infection due to mycoplasma 02/15/2024 Vaginal odor 02/15/2024 Urinary tract infection without hematuria 02/15/2024 Bacterial vaginosis 02/15/2024 Bladder pain 07/18/2024 Calculus of kidney 07/25/2013 Gross hematuria 07/18/2024 Resolved Ambulatory Problems Diagnosis Date Noted No Resolved Ambulatory Problems Past Medical History: Diagnosis Date ADHD (attention deficit hyperactivity disorder) Bipolar disorder (manic depression) ([facility]) BMI 24.0-24.9, adult Chicken pox 2007 Headache IBS (irritable bowel syndrome) Intrauterine device surveillance Pelvic pain Urinary tract infection HISTORY PAST MEDICAL HISTORY SOCIAL HISTORY Past Medical History: Diagnosis Date ADHD (attention deficit hyperactivity disorder) Adjustment disorder with mixed anxiety and depressed mood Amenorrhea Anxiety Bipolar disorder (manic depression) ([facility]) BMI 24.0-24.9, adult Chicken pox 2007 [...] SMEAR 05/21/2021 negative WISDOM TOOTH EXTRACTION 2015 [facility] [place] [facility] REVIEW OF SYSTEMS Review of Systems: [...] nursing note reviewed. Exam conducted with a spanish lecturer present. Vitals: Estimated body mass index is 27.53 kg/m?? as calculated from the following: Height as of 07/18/24: 5' 7 . Weight as of this encounter: 175 lb 12.8 oz. BP: 102/68 Patient's last menstrual period was 06/19/2024. Assessment/Plan ICD-10-CM 1. Third trimester ([facility]) Z34.93 2. 33 weeks gestation of ([facility]) Z3A.33 POCT urinalysis dipstick manually resulted Return [...] Plan of Treatment DateTypeDepartmentCare Team (Latest Contact Info)Twbxkundkcp79/11/2025 10:30 AM ESTRoutine [facility] [address] [place] [phone] Jose Pan DO [address] [place] [address] documented as of this encounter Procedures Procedure NamePriorityDate/TimeAssociated DiagnosisCommentsPOCT URINALYSIS RIFDYPZDAooiwxk36/28/2025 10:33 AM EDT 33 weeks gestation of ([facility]) documented in this encounter Results * POCT [...] this encounter Visit Diagnoses Diagnosis Third trimester ([facility]) state, incidental 33 weeks gestation of ([facility]) documented in this encounter Care Teams Team MemberRelationshipSpecialtyStart DateEnd Date Sri Ramírez MD [address] [place] [address] PCP - GeneralFamily Medicine09/19/22 Kayla Kahn DO [address] [place] [address] Referring Physician09/19/22documented as of this encounter
--- OUTSIDE RECORDS SUMMARY | 2025-02-15 13:38 | XMS_ITS | Clinical Summary ---
Author Organization [facility] Address [address] [place] [address] Care Team Providers Care Anatomic Pathology Manager Name Role Phone Sri Ramírez MD Primary Care Provider [phone] Kayla Kahn DO Unavailable [phone] Allergies Active AllergyReactionsCriticalityNoted DateCommentsBacitracin-Polymyxin B 09/06/2022 Other Reaction(s): Unknown XlkzbwxptEpeewepNjx12/27/2023 Caused heart palpitations and increased anxiety NkhrkljrebgmDqkml21/27/2023 groggy Other Reaction(s): Sleepy Medications MedicationSigDispense QuantityRefillsLast [...] and 1 application before bedtime. 60 g 1108//120568/6Active terconazole (Terazol 7) 0.4 % vaginal cream Indications:Yeast infectionInsert 1 applicator into the vagina at bedtime for 7 days 45 g 02/09/20240413/5Active metroNIDAZOLE (Flagyl) 500 MG tablet Indications:BV (bacterial vaginosis)Take 1 tablet (500 mg) by mouth in the morning and 1 tablet (500 mg) before bedtime. Do all this for 7 days. Do not drink alcohol while taking this medication. 14 tablet 511/5Active Active Problems ProblemNoted DateDiagnosed DateBladder pain07/18/2024Gross qhkuoqxzp24/07/2025 Bacterial infection due to yogzslxkrv45/04/2024Vaginal odor02/15/2024Urinary tract infection without eimplzvyf75/04/2024acterial utkwnjxit41/04/2024 Adjustment disorder with mixed anxiety and depressed mood09/06/2022menorrhea 09/06/20225426Viesuir77/27/2023ipolar affective disorder, currently depressed, rufhyliq65/27/2023omplication of intrauterine device (IUD)09/06/2022Inattention 09/06/2022Irregular xpcptv9309/06/2022Irritable bowel syndrome with diarrhea 09/06/2022Menstrual cramp09/06/2022ain in gyocto6409/06/2022eneralized anxiety bhfctihu95/27/2023ost-traumatic stress iizswecv15/27/2023Slow transit xxiweizdfbpp30/27/2023nxiety during ([facility])03/26/2020Depression affecting lrkanzzxe07/14/2020History of blaokrxle42/14/2020Calculus of kidney 07/25/2013Estimated Date of KqekmnnyWbsfmrwjJmo20/14/2025ased on last menstrual period of 06/19/2024 Encounters DateTypeDepartmentCare VihtYgebhwrisiq65/05/2025Telephone [facility] [place] [address] [place] [address] Trista Pan DO 02/09/2025Telephone [facility] [place] [address] [place] [phone] Nasreen Figueroa MA 02/07/2025 10:20 AM EDTRoutine [facility] [place] [facility] [address] [place] [address] Trista Pan DO Third trimester ([facility]); 33 weeks gestation of ([facility])02/07/2025amboo flowsheet [facility] [address] [address] Trista Pan DO 5Clinisync Result Encounter [facility] External Department Unsolicited Provider, Generic External Data 01/30/2025bstract [facility] [address] [address] Ameena Booker MA 01/24/2025 10:00 AM EDTRoutine [facility] [address] [place] [address] Trista Pan DO Encounter for ultrasound recheck of choroid plexus cyst, antepartum ([facility]); Third trimester ([facility]); 31 weeks gestation of ([facility]); size inconsistent with dates ([facility])01/24/2025 9:30 AM EDTAncillary Procedure [facility] [place] [facility] [address] [place] [address] Encounter for ultrasound recheck of choroid plexus cyst, antepartum ([facility])01/09/2025 10:10 AM EDTRoutine [facility] [place] [facility] [address] [place] [address] Padmini Gunter, V[place] Third trimester ([facility]); 29 weeks gestation of ([facility]); Choroid plexus cyst01/09/2025amboo flowsheet [facility] [place] [facility] [address] [place] [address] Padmini Gunter, VIC 01/05/2025bstract [facility] [address] [place] [address] Trista Pan DO 12/28/2024 3:20 PM EDTRoutine [facility] [address] [place] [address] Daja Ryan PA Second trimester ([facility]); 27 weeks gestation of ([facility])5Bamboo [place] [phone] Daja Ryan PA 5Clinisync Result Encounter [facility] External Department Unsolicited Provider, Generic External Data 12/05/2024 1:50 PM [place] [address] Trista Pan, Acne, unspecified acne type (Primary Dx); Second trimester ([facility]); 24 weeks gestation of ([facility]); Diabetes mellitus screening; Screening, , for anatomic survey ([facility])5Clinisync Result Encounter [facility]OM[facility] External Department Unsolicited Provider, Generic External Data 12/05/2024[place] [phone] Estela Phipps LPN Encounter for follow-up ultrasound of anatomy ([facility])from Last 3 Months Immunizations ImmunizationAdministration DatesNext IarYGU871DTaP, Gqitlzchrfi92/17/2003 ,05/15/1998,1997,1997,1997HPV, Bbthrgvxhwds33/22/2011, 02/05/2010,11/26/2009Hep B, Adolescent or Fzkdzqivr12/23/1998,1997HiB, kafrezudbue67/27/1998,1997Hib (PRP-T)05/15/1998Hib / Hep B009/11/1997IPV 10/27/2002,05/15/1998,1997,1997MMR10/27/2002,05/15/1998Tdap 11/26/2009 Family History Medical HistoryRelationNameCommentsNo Known ProblemsBrother2 brothersNo Known ProblemsDaughterCancerMotherbernadetteMental illnessMotherbernadettemanic depressive bipolar disorderBreast cancerPaternal GrandmotherdebCancerPaternal RcwgouxmnehfclDyokdyyoXtssEfrmhwXskpdwpyFhasoyp5LgiyviuzAaiqpDdmogcUpjhhUwpzexoo GrandmotherMotherbernadetteAlivePaternal GrandmotherdebAlive Social History Tobacco UseTypesPacks/DayYears UsedDateSmoking Tobacco: FormerCigarettes0.55 Smokeless Tobacco: Never Tobacco Cessation:Counseling Given: Not Answered Alcohol UseStandard Drinks/WeekCommentsNever0 (1 standard drink = 0.6 oz pure alcohol)caffeine: 1-2 cups coffee or energy drink jjowknbmdkopB7761 Health LiteracyAnswerDate RecordedHow often do you need [...] relatives?Twice a week09/24/2023How often do you attend congregational or shinto services?Patient /13/2024o you belong to any clubs or organizations such as congregational groups, unions, fraternal or athletic groups, or school groups?No09/24/2023How often do you attend meetings of the clubs or organizations you belong to?Never09/24/2023re you , , , , never , or living with a partner?Patient spigurxz94/13/2024 AUDIT-CAnswerDate RecordedQ1: How often do you have [...] at all 09/24/2023HQ-2AnswerDate RecordedPatient Health Questionnaire-2 Score0 07/18/2024[facility] of Occupational Health - Occupational Stress QuestionnaireAnswerDate [...] a halfway (including now)?No09/24/2023Estimated Date of Delivery ZlkvcbbsBgr02/14/2025Based on last menstrual period of 06/19/2024Sex and Gender InformationValueDate RecordedSex Assigned at BirthNot on fileLegal SexFemale 06/25/2022 6:40 PM EDTGender IdentityNot on fileSexual OrientationNot on file Last Filed Vital Signs Vital SignReadingTime TakenCommentsBlood Xohnmeie518/6810/ 10:23 AM EDT Vimtu1106 8:15 AM KYBJjyuifgrhtf52 ??C (95 ??F)06/10/2024 8:03 AM EST Respiratory Nodk754907/18/2024 8:15 AM EDTOxygen Tmijqprrbt84%07/18/2024 8:15 AM EDTInhaled Oxygen Concentration--Oasrvj86.7 kg (175 lb 12.8 oz)02/07/2025 10:23 AM GIXMsiyco591.2 cm (5' 7 )07/18/2024 8:15 AM EDTBody Mass Index27.53007/18/2024 8:15 AM EDT Plan of Treatment DateTypeDepartmentCare Team (Latest Contact Info)Cqgsuelpdhp13/11/2025 10:30 AM ESTRoutine [facility] [address] [place] [phone] Trista Pan, [address] [place] [address] Health MaintenanceDue DateLast DoneCommentsCOVID-19 Vaccine (2024- season) 506/, 09/11/2020Influenza Vaccine (#1)2024Pneumococcal Vaccine: Pediatrics (0 to 5 Years) and At-Risk Patients (6 to 64 Years)Aged Out No longer eligible based on patient's age to complete this topic Procedures Procedure NamePriorityDate/TimeAssociated DiagnosisCommentsPOCT URINALYSIS FKSJTYXPAgjakxv33/28/2025 10:33 AM EDT 33 weeks gestation of ([facility]) US OB YJSKQV1402/02/2025 8:33 AM EDT POCT URINALYSIS DLSCMKENTaeobvo64/14/2025 10:23 AM EDT 31 weeks gestation of ([facility]) US OB LIMITED 1+ OARJHEHVvnnaeu24/14/2025 10:06 AM EDT Encounter for ultrasound recheck of choroid plexus cyst, antepartum ([facility]) POCT URINALYSIS JAYRIBCCMtjulal39/29/2025 10:19 AM EDT Third trimester ([facility]) POCT URINALYSIS QKVTRRAPNtrzjyk11/17/2025 3:47 PM EDT Second trimester ([facility]) 27 weeks gestation of ([facility]) ALL CBC WITH AUTO GZKJEjlhoxs66/30/2025 10:15 AM EDT GLUCOSE 1 UELBNamaeby23/30/2025 10:15 AM EDT US OB FOLLOW UP12/05/2024 2:33 PM EDT POCT URINALYSIS GKYHWSETMrglntw79/25/2025 2:15 PM EDT Second trimester ([facility]) from Last 3 Months Results * POCT urinalysis dipstick manually resulted (02/07/2025 10:33 AM EDT) Only the most recent of5 resultswithin the time period is included. ComponentValueRef RangeTest MethodAnalysis TimePerformed AtPathologist Signature Color, UAYellowClarity, UAClearGlucose, UANegativeNegative - 2000(110) ++++ mg/dLBilirubin, UANegativeNegative - 4(70) +++ mg/dLKetones, UANegativeNegative - 160(16) ++++ mg/dLSpec Grav, UA1.0101 - 1.03Blood, UANegativeNegative - 50 Allen/mcLpH, UA6.55 - 9Protein, UANegativeNegative - 2000(20) ++++ mg/dL Urobilinogen, UA1.00.2 - 12 mg/dLLeukocytes, UANegativeNegative - 500+++ Andrei/mcL Nitrite, UANegativeNegative - PositiveSpecimen (Source)Anatomical Location / LateralityCollection Method / VolumeCollection TimeReceived SsgpLsxwu36/28/2025 10:33 AM EDT Narrative Authorizing ProviderResult TypeResult StatusCorey Maxim DOPOINT OF CARE TEST ENTER/EDIT ORDERABLESFinal Result * US OB GROWTH (02/02/2025 8:33 AM EDT)Anatomical RegionLateralityModalityOther Specimen (Source)Anatomical Location / LateralityCollection Method / Volume Collection TimeReceived Time02/02/2025 8:33 AM EDT Narrative 02/02/2025 8:35 AM EDT [facility] ?[address] ? [place] [address] ? Ultrasound Report ? Signed ? Patient: FAHEEM BELCHER R ?MR#: [id number] ?? : 1995 ?Acct:[id number] ?? Age/Sex: 29 / F ?ADM Date: 02/01/25 ?? Loc: US ? Attending Dr: Trista Pan D.O. ? Ordering Physician: Trista Pan D.O. ?? Date of Service: 02/01/25 ?? Procedure(s): US OB growth ?? Accession Number(s): [id number] ? cc: SRI RAMÍREZ ; Trista Pan D.O. ? [facility] ? [address] ? [place] [address] ? Patient Name: ?? FAHEEM BELCHER ? MRN: [facility]:[id number] ? date: 1995 ?Sex: F ?? Assigned Patient Location: ?? Current Patient Location: ? Accession/Order Number: [id number] ?? Exam Date: 02/01/2025 ??13:36 ?Report Date: 02/02/2025 ??08:33 ? At the request of: ?? TRISTA ??MAXIM ??DO ? Procedure: ??US OB growth ? ULTRASOUND OB GROWTH ? COMPARISON: 11/07/2024 and 12/05/2004 ? CLINICAL DATA: size and consistent with dates ? There is a single live intrauterine gestation in cephalic presentation. ??There ?? is cardiac and somatic activity with heart rate of 144 bpm. ??The ?? amniotic fluid index measures 15.8 cm which is in upper normal range. ??The ?? following measurements were obtained: ?? Biparietal diameter ?8.0 cm ?? 32 weeks 1 day ?? 34% ?? Head circumference ?30.3 cm ?? 33 weeks 5 days 46% ?? Abdominal ??circumference ??28.7 cm ?? 32 weeks 5 days ??58% ? Femur length ? 6.2 ??cm ?? 32 weeks 5 days ??26% ?? The composite ultrasound age based on these measurements is 32 weeks 5 days ?? +/- 2 weeks 2 days. ??This correlates with dates based on the prior. ??The ?? estimated date of delivery is 03/24/2025. ??Estimated weight is 4 lbs. 6 ?? oz. +/- 11 ounces (43%). ? US/US OB growth ?? IMPRESSION: ? SINGLE LIVE INTRAUTERINE GESTATION WITH ULTRASOUND AGE OF 32 WEEKS 5 DAYS ? Impression dictated by: Ana Michael M.D. ??02/02/2025 8:33 AM ? Dictation Location: [place] [address] ? Electronically authenticated by: [id number] ??Y ?? Date: 02/02/2025 ??08:33 ? Dictated By: ?Ana Michael M.D. ? Signed By: ?02/02/25 0835 ? DD/ 0833 ? TD/TT: ? Clean Rice Grader And Reel Tender: Procedure Note Radiology, Radiologist, MD - 02/02/2025 [place] [address] Ultrasound Report Signed Patient: FAHEEM BELCHER RMR#: [id number] : 1995Acct:[id number] Age/Sex: 29 / FADM Date: 02/01/25 Loc: US Attending Dr: Trista Pan D.O. Ordering Physician: Trista Pan D.O. Date of Service: 02/01/25 Procedure(s): US OB growth Accession Number(s): [id number] cc: SRI RAMÍREZ ; Trista Pan D.O. The [address] [address] Patient Name: FAHEEM BELCHER MRN: [id number] date: 1995 Sex: F Assigned Patient Location: US Current Patient Location: Accession/Order Number: [id number] Exam Date: 02/01/2025 13:36 Report Date: 02/02/2025 08:33 At the request of: TRISTA PAN DO Procedure: US OB growth ULTRASOUND OB GROWTH COMPARISON: 11/07/2024 and 12/05/2004 CLINICAL DATA: size and consistent with dates There is a single live intrauterine gestation in cephalic presentation.There is cardiac and somatic activity with heart rate of 144 bpm. The amniotic fluid index measures 15.8 cm which is in upper normal range. The following measurements were obtained: Biparietal diameter 8.0 cm 32 weeks 1 day 34% Head circumference 30.3 cm 33 weeks 5 days 46% Abdominal circumference 28.7 cm 32 weeks 5 days 58% Femur length 6.2 cm 32 weeks 5 days 26% The composite ultrasound age based on these measurements is 32 weeks 5days +/- 2 weeks 2 days. This correlates with dates based on the prior. The estimated date of delivery is 03/24/2025. Estimated weight is 4lbs. 6 oz. +/- 11 ounces (43%). US/US OB growth IMPRESSION: SINGLE LIVE INTRAUTERINE GESTATION WITH ULTRASOUND AGE OF 32 WEEKS 5 DAYS Impression dictated by: Ana Michael M.D. 02/02/2025 8:33 AM Dictation Location: [place] [address] Electronically authenticated by: [id number] Y Date: 508:33 Dictated By: Ana Michael M.D. Signed By:02/02/2535 DD/ 2 TD/TT: Clean Rice Grader And Reel Tender: Authorizing ProviderResult TypeResult StatusGeneric External Data Provider [facility] IMAGINGFinal Result * US OB limited 1+ fetuses [...] Díaz MD Authorizing ProviderResult TypeResult StatusCorey Maxim MAGANA OB US PROCEDURES Final Result * GLUCOSE 1 HOUR (12/10/2024 10:15 AM EDT)ComponentValueRef RangeTest Method Analysis TimePerformed AtPathologist SignatureGLUCOSE 1 UDRS048<130 mg/dLTBH Specimen (Source)Anatomical Location / LateralityCollection Method / Volume Collection TimeReceived Time12/10/2024 10:15 AM EDT12/10/2024 10:16 AM EDT Narrative [facility] - 12/10/2024 11:26 AM EDT Authorizing ProviderResult TypeResult StatusCorematthieu Pan DOL BLOOD ORDERABLES Final ResultPerforming OrganizationAddressCity/State/ZIP CodePhone Number [facility] * (ABNORMAL) ALL CBC WITH AUTO DIFF (12/10/2024 10:15 AM EDT)ComponentValueRef RangeTest MethodAnalysis TimePerformed AtPathologist SignatureTBH WBC11.6(H) 4.0 - 11.0 10 3/uLTBHTBH RBC4.14(L)4.20 - 5.40 10 6/uLTBHTBH HGB12.912.0 - 16.0 g/dLTBHTBH HCT38.536.0 - 48.0 %TBHTBH MCV93.081.0 - 99.0 fLTBHTBH MCH31.2 26.7 - 34.0 pgTBHTBH MCHC33.529.9 - 35.2 g/dLTBHTBH RDW13.111.0 - 15.0 %TBHTBH LXD125686 - 450 10 3/uLTBHTBH MPV9.99.5 - 13.5 [...] EDT Narrative 12/05/2024 2:36 PM EDT [facility] ?[address] ? [place] [address] ? Ultrasound Report ? Signed ? Patient: HOLLEY,FAHEEM R ?MR#: [id number] ?? : 1995 ?Acct:[id number] ?? Age/Sex: 29 / F ?ADM Date: 08/25/25 ?? Loc: US ? Attending Dr: Padmini Gunter ? Ordering Physician: Padmini Gunter ?? Date of Service: 12/05/24 ?? Procedure(s): US OB follow up ?? Accession Number(s): [id number] ? cc: SRI RAMÍREZ ; Padmini Gunter ? [facility] ? [address] ? [place] [address] ? Patient Name: ?? FAHEEM BELCHER ? MRN: [facility]:[id number] ? date: 1995 ?Sex: F ?? Assigned Patient Location: ?? Current Patient Location: US ?? Accession/Order Number: [id number] ?? Exam Date: 12/05/2024 ??13:08 ?Report Date: 12/05/2024 ??14:33 ? At the request of: ?? PADMINI ??ANKIT ? Procedure: ??US OB follow up ? [...] the cine imaging. ? Impression dictated by: Mitesh Villalba Jr.OYoana ??12/05/2024 2:33 PM ? Dictation Location: [facility] ? Electronically authenticated by: [id number] ??Y ?? Date: 12/05/2024 ??14:33 ? Dictated By: ?Elpidio Brush M.D. ? Signed By: ?12/05/24 1436 ? DD/ 1433 ? TD/TT: ? Clean Rice Grader And Reel Tender: Procedure Note Radiology, Radiologist, MD - 12/05/2024 [place] [address] Ultrasound Report Signed Patient: FAHEEM BELCHER R#: [id number] : 1995Acct:[id number] Age/Sex: 29 / FADM Date: 12/05/24 Loc: US Attending Dr: Padmini Gunter Ordering Physician: Padmini Gunter Date of Service: 12/05/24 Procedure(s): US OB follow up Accession Number(s): [id number] cc: SRI RAMÍREZ ; Padmini Gunter [place] [id number] Patient Name: FAHEEM BELCHER MRN: [id number] date: 1995 Sex: F Assigned Patient Location: US Current Patient Location: US Accession/Order Number: [id number] Exam Date: 12/05/2024 13:08 Report Date: 12/05/2024 [...] Jr., D.O. 12/05/2024 2:33 PM Dictation Location: [place] [address] Electronically authenticated by: [id number] Y Date: 4:33 Dictated By: Elpidio Brush M.D. Signed By:12/05/24 1436 DD/ 32 TD/TT: Clean Rice Grader And Reel Tender: Authorizing ProviderResult TypeResult StatusGeneric External Data ProviderIMG XR PROCEDURESFinal Result from Last 3 Months Insurance Care Teams Team MemberRelationshipSpecialtyStart DateEnd Date Sri Ramírze MD [address] [place] [address] PCP - GeneralFamily Medicine09/19/22 Kayla Kahn DO [address] [place] [address] Referring Physician09/19/22
--- OUTSIDE RECORDS SUMMARY | 2025-02-15 13:38 | XMS_ITS | Encounter Summary ---
Author Organization [facility] Address [address] [place] [address] Care Team Providers Care Dish Maker Name Role Phone Sri Ramírez MD Primary Care Provider [phone] Kayla Kahn DO Unavailable [phone] Encounter Details DateTypeDepartmentCare Team (Latest Contact Info)Pqqgaxketgg16/05/2025Telephone [facility] [place] [facility] [address] [place] [address] Jose Pan DO [address] [place] [id number] Social History Tobacco UseTypesPacks/DayYears UsedDateSmoking Tobacco: FormerCigarettes0.55 Smokeless Tobacco: NeverAlcohol UseStandard Drinks/WeekCommentsNever0 (1 standard drink = 0.6 oz pure alcohol)caffeine: 1-2 cups coffee or energy drink aqvjwozgcgkfC7204 Health LiteracyAnswerDate RecordedHow often do you need [...] a week 09/24/2023How often do you attend hoahaoism or rastafari services?Patient declined 09/24/2023o you belong to any clubs or organizations such as hoahaoism groups, unions, fraternal or athletic groups, or school groups?No09/24/2023How often do you attend meetings of the clubs or organizations you belong to?Never09/24/2023 Are you , , , , never , or living with a partner?Patient obrjzmst55/13/2024UDIT-CAnswerDate RecordedQ1: How often do you have a [...] heating?Not hard at all09/24/2023HQ-2AnswerDate RecordedPatient Health Questionnaire-2 Ctrke947Finen[facility] [place] of Occupational Health - Occupational Stress QuestionnaireAnswerDate [...] homeless or living in a halfway (including now)?No09/24/2023 Estimated Date of TgymdundEckvvzlsUqu27/14/2025Based on last menstrual period of 06/19/2024Sex and Gender InformationValueDate RecordedSex Assigned at BirthNot on fileLegal TbwYdnycd28/15/2023 6:40 PM EDTGender IdentityNot on file Sexual OrientationNot on filedocumented as of this encounter Miscellaneous Notes * Telephone Encounter - Raquel Humphreys LPN - 02/15/2025 11:12 AM EST Patient called the office and she left a voicemail stating the las week off and on she is having really sore sharp pain on right top of belly she will lay on side with heating pad this will help and she will get up to do things and this will make it worse. Patient states that this feels like a ripping feeling. Patient call was returned and she states about 4 fingers high from belly button and she will try torelax and this will help and sometimes really intense. Patient states that she does not think Roslyn Espinal. Patient denies any bleeding and she is on meds for BV at this time. Patient started havingthis pain after her office visit. Patient states that she was going to head in last night but it got better with heating pad then presented back. Called and advised [facility] patient would be coming from home. documented in this encounter Plan of Treatment DateTypeDepartmentCare Team (Latest Contact Info)Yfmzsvbddjq70/11/2025 10:30 AM ESTRoutine [facility] [place] [facility] [address] [place] [phone] Jose Pan, [address] [place] [address] documented as of this encounter Visit Diagnoses Not on filedocumented in this encounter Care Teams Team MemberRelationshipSpecialtyStart DateEnd Date Sri Ramírez MD [address] [place] [address] PCP - GeneralFamily Medicine09/19/22 Kayla Kahn DO [address] [place] [address] Referring Physician09/19/22documented as of this encounter
--- OUTSIDE RECORDS SUMMARY | 2025-02-15 13:38 | XMS_ITS | Encounter Summary ---
Author Organization [facility] Address [address] [place] [address] Care Team Providers Care Cognos Name Role Phone Sri Ramírez MD Primary Care Provider [phone] Kayla Kahn DO Unavailable [phone] Daisy Hurst PERINATAL NURSE-CITY DISPATCHER Unavailable Encounter Details DateTypeDepartmentCare Team (Latest Contact Info)Ihacgxmqjgm86/23/2024Clinisync Result Encounter [facility] External Department Unsolicited Provider, Generic External Data Social History Tobacco UseTypesPacks/DayYears UsedDateSmoking Tobacco: FormerCigarettes0.55 Smokeless Tobacco: NeverAlcohol UseStandard Drinks/WeekCommentsNever0 (1 standard drink = 0.6 oz pure alcohol)caffeine: 1-2 cups coffee or energy drink [id number] Health LiteracyAnswerDate RecordedHow often do you need [...] a week 09/24/2023How often do you attend pentecostal or zoroastrian services?Patient declined 09/24/2023o you belong to any clubs or organizations such as pentecostal groups, unions, fraternal or athletic groups, or school groups?No09/24/2023How often do you attend meetings of the clubs or organizations you belong to?Never06/ Are you , , , , never , or living with a partner?Patient /13/2024UDIT-CAnswerDate RecordedQ1: How often do you have a [...] heating?Not hard at all09/24/2023HQ-2AnswerDate RecordedPatient Health Questionnaire-2 Rifij740[facility] of Occupational Health - Occupational Stress QuestionnaireAnswerDate [...] homeless or living in a detention (including now)?No09/24/2023 CommentsUnknownSex and Gender InformationValueDate RecordedSex Assigned at BirthNot on fileLegal NkqWgibvp77/15/2023 6:40 PM EDTGender IdentityNot on fileSexual OrientationNot on filedocumented as of this encounter Functional Status * Over the past 2 weeks, how often have you been bothered by any of the following problems?QuestionAnswerDate of AssessmentAuthorLittle interest or pleasure in doing thingsNot at all07/18/2024 8:00 AM Oxana Umanzor MA Feeling down, depressed, or hopelessNot at all07/18/2024 8:00 AM Oxana Umanzor MAPatient Health Questionnaire-2 Ccaeu470 8:00 AM EDT Oxana Blanca MA documented as of this encounter Plan of Treatment DateTypeDepartmentCare Team (Latest Contact Info)Zktxsqhcutd53/11/2025 10:30 AM ESTRoutine [facility] [place] [facility] [address] [address] Trista Pan DO [address] [place] [address] documented as of this encounter Procedures Procedure NamePriorityDate/TimeAssociated DiagnosisCommentsUS XXXVKD9502/03/2024 11:31 AM EDT documented in this encounter Results * US PELVIS (02/03/2024 11:31 AM EDT)Anatomical RegionLateralityModalityOther Specimen (Source)Anatomical Location / LateralityCollection Method / Volume Collection TimeReceived Time02/03/2024 11:31 AM EDT Narrative 02/03/2024 11:33 AM EDT [facility] ?[address] ? [place] [address] ? Ultrasound Report ? Signed ? Patient: HOLLEY,FAHEEM R ?MR#: [id number] ?? : 1995 ?Acct:[id number] ?? Age/Sex: 28 / F ?ADM Date: 10/23/24 ?? Loc: [facility] ? Attending Dr: Trista Pan D.O. ? Ordering Physician: Trista Pan D.O. ?? Date of Service: 02/03/24 ?? Procedure(s): US pelvis ?? Accession Number(s): [id number] ? cc: SRI RAMÍREZ ; Trista Pan D.O. ? [facility] ? [address] ? [place] [address] ? Patient Name: ?? FAHEEM BELCHER ? MRN: [facility]:[id number] ? date: 1995 ?Sex: F ?? Assigned Patient Location: [facility] ?? Current Patient Location: LAB ?? Accession/Order Number: [id number] ?? Exam Date: 02/03/2024 ??10:36 ?Report Date: 02/03/2024 ??11:31 ? At the request of: ?? TRISTA ??QUETA ? Procedure: ??US pelvis ? EXAMINATION: US pelvis ? HISTORY: PELVIC PAIN for 6 months increasing in severity ? COMPARISON: No relevant comparison available. ? TECHNIQUE: Transabdominal and/or transvaginal sonographic examination was ?? performed as indicated by examination type. ? FINDINGS: ?? UTERUS: Normal size and appearance. Uterus size: 9.1 x 3.0 x 4.7 cm ?? ENDOMETRIUM: Normal homogeneous appearance. Endometrial thickness: 4 mm ? RIGHT OVARY: Normal size and appearance. Duplex Doppler demonstrates normal ?? waveform and flow; resistive index 0.5. Ovary size: 4.0 x 2.3 x 3.9 cm ? LEFT OVARY: Normal size and appearance. Duplex Doppler demonstrates normal ?? waveform and flow; resistive index 0.6. Ovary size: 4.5 x 2.3 x 2.4 cm ? CUL-DE-SAC: Unremarkable. No significant free fluid. ?? BLADDER: Unremarkable. ?? OTHER: None. ? US/US pelvis ?? IMPRESSION: ? 1. Normal pelvic ultrasound. ? Electronically authenticated by: GARY ??BARBARA ?? Date: 02/03/2024 ??11:31 ? Dictated By: ?Gary Vasquez M.D. ? Signed By: ?02/03/24 1133 ? DD/ 1131 ? TD/TT: ? Clay Washer: Procedure Note Radiology, Radiologist, - 02/03/2024 [place] [address] Ultrasound Report Signed Patient: FAHEEM BELCHER RMR#: [id number] : 1995Acct:[id number] Age/Sex: 28 / FADM Date: 02/03/24 Loc: [facility] Attending Dr: Trista Pan D.O. Ordering Physician: Trista Pan D.O. Date of Service: 02/03/24 Procedure(s): US pelvis Accession Number(s): [id number] cc: SRI RAMÍREZ ; Trista Pan D.O. The [place] [id number] Patient Name: FAHEEM BELCHER MRN: [facility]:[id number] date: 1995 Sex: F Assigned Patient Location: [facility] Current Patient Location: LAB Accession/Order Number: [id number] Exam Date: 02/03/2024 10:36 Report Date: 02/03/2024 [...] M.D. Signed By:02/03/24 1133 DD/ 1131 TD/TT: Clay Washer: Authorizing ProviderResult TypeResult StatusGeneric External Data Provider CLINISYNC IMAGINGFinal Result documented in this encounter Visit Diagnoses Not on filedocumented in this encounter Care Teams Team MemberRelationshipSpecialtyStart DateEnd Date Sri Ramírez MD [address] [place] [address] PCP - GeneralFaally Medicine09/19/22 Sharifa-Daisy Cazares APRN-CITY DISPATCHER [address] [address] PCP - [place] [employer] Kayla Kahn DO [address] [place] [address] Referring Physician09/19/22documented as of this encounter
--- OUTSIDE RECORDS SUMMARY | 2025-02-15 13:38 | XMS_ITS | Encounter Summary ---
Author Organization [facility] Address [address] [place] [address] Care Team Providers Care Elevators Inspector Name Role Phone Sri Ramírez MD Primary Care Provider [phone] Kayla Kahn DO Unavailable [phone] Encounter Details DateTypeDepartmentCare Team (Latest Contact Info)Zhirwyttvnk24/30/2025Telephone [facility] [place] [facility] [address] [place] [place] [address] Henry Oglesby, MA [address] [place] [address] Social History Tobacco UseTypesPacks/DayYears UsedDateSmoking Tobacco: FormerCigarettes0.55 Smokeless Tobacco: NeverAlcohol UseStandard Drinks/WeekCommentsNever0 (1 standard drink = 0.6 oz pure alcohol)caffeine: 1-2 cups coffee or energy drink dbhguvjyenszL9144 Health LiteracyAnswerDate RecordedHow often do you need [...] a week 09/24/2023How often do you attend faith or orthodox services?Patient declined 09/24/2023o you belong to any clubs or organizations such as faith groups, unions, fraternal or athletic groups, or school groups?No09/24/2023How often do you attend meetings of the clubs or organizations you belong to?Never09/24/2023 Are you , , , , never , or living with a partner?Patient xoevwkpv32/13/2024UDIT-CAnswerDate RecordedQ1: How often do you have a [...] heating?Not hard at all09/24/2023HQ-2AnswerDate RecordedPatient Health Questionnaire-2 Dhisf277F[facility] [place] of Occupational Health - Occupational Stress QuestionnaireAnswerDate [...] homeless or living in a alf (including now)?No09/24/2023 Estimated Date of NzyggyhrThaibsaxKav42/14/2025Based on last menstrual period of 06/19/2024Sex and Gender InformationValueDate RecordedSex Assigned at BirthNot on fileLegal JbhBesnkj57/15/2023 6:40 PM EDTGender IdentityNot on file Sexual OrientationNot on filedocumented as of this encounter Miscellaneous Notes * Telephone Encounter - Nasreen Figueroa MA - 02/09/2025 11:46 AM EDT Pt called she was taking monastat 7 for a yeast infection and states it sanchez as she puts it in andstopped it. Pt states she is very irritated w/more vaginal discharge than usual and slight odor. I advised pt flagyl and Terazol (insertion cream) will be sent into her pharmacy. Medication will helpwith all her issues and eventually will heal and not burn/irritated anymore. PVU. documented in this encounter Plan of Treatment DateTypeDepartmentCare Team (Latest Contact Info)Ojcbkdtpeoj13/11/2025 10:30 AM ESTRoutine [facility] [place] [facility] [address] [place] [address] Jose Pan DO [address] [place] [place] [address] documented as of this encounter Visit Diagnoses Diagnosis BV (bacterial vaginosis) Unspecified vaginitis and vulvovaginitis Yeast infection documented in this encounter Care Teams Team MemberRelationshipSpecialtyStart DateEnd Date Sri Ramírez MD [address] [place] [address] PCP - GeneralFamily Medicine09/19/22 Kayla Kahn DO [address] [place] [address] Referring Physician09/19/22documented as of this encounter
--- OUTSIDE RECORDS SUMMARY | 2025-02-15 13:38 | XMS_ITS | Encounter Summary ---
Author Organization [facility] Address [address] [place] [address] Care Team Providers Care Rent And Miscellaneous Remittance Clerk Name Role Phone Buffy Diane MD Primary Care Provider [phone] Kayla Kahn DO Unavailable [phone] Encounter Details DateTypeDepartmentCare Team (Latest Contact Info)Aznykqotgis48/23/2025linisync Result Encounter [facility] External Department Unsolicited Provider, Generic External Data Social History Tobacco UseTypesPacks/DayYears UsedDateSmoking Tobacco: FormerCigarettes0.55 Smokeless Tobacco: NeverAlcohol UseStandard Drinks/WeekCommentsNever0 (1 standard drink = 0.6 oz pure alcohol)caffeine: 1-2 cups coffee or energy drink wmeqsjvkfvrxE1313 Health LiteracyAnswerDate RecordedHow often do you need [...] a week 09/24/2023How often do you attend scientology or denominational services?Patient declined 09/24/2023o you belong to any clubs or organizations such as scientology groups, unions, fraternal or athletic groups, or school groups?No09/24/2023How often do you attend meetings of the clubs or organizations you belong to?Never09/24/2023 Are you , , , , never , or living with a partner?Patient tdiqvtzr72/13/2024UDIT-CAnswerDate RecordedQ1: How often do you have a [...] heating?Not hard at all09/24/2023HQ-2AnswerDate RecordedPatient Health Questionnaire-2 Wzrtl434[facility]an[facility] [place] of Occupational Health - Occupational Stress QuestionnaireAnswerDate [...] times have you moved where you were living?4At any time in the past 12 months, were you homeless or living in a alf (including now)?No09/24/2023 Estimated Date of LlwyiksqKsqbtbsbOaq80/14/2025Based on last menstrual period of 06/19/2024Sex and Gender InformationValueDate RecordedSex Assigned at BirthNot on fileLegal AbuUjavlx89/15/2023 6:40 PM EDTGender IdentityNot on file Sexual OrientationNot on filedocumented as of this encounter Plan of Treatment DateTypeDepartmentCare Team (Latest Contact Info)Scgxpxjhcuv34/11/2025 10:30 AM ESTRoutine [facility] [place] [facility] [address] [place] [address] Trista Pan, DO [address] [place] [address] documented as of this encounter Procedures Procedure NamePriorityDate/TimeAssociated DiagnosisCommentsUS OB GROWTH 02/02/2025 8:33 AM EDT documented in this encounter Results * US OB GROWTH (02/02/2025 8:33 AM EDT)Anatomical RegionLateralityModalityOther Specimen (Source)Anatomical Location / LateralityCollection Method / Volume Collection TimeReceived Time02/02/2025 8:33 AM EDT Narrative 02/02/2025 8:35 AM EDT [facility] ?[address] ? [place] [address] ? Ultrasound Report ? Signed ? Patient: FAHEEM BELCHER R ?MR#: [id number] ?? : 1995 ?Acct:[id number] ?? Age/Sex: 29 / F ?ADM Date: 02/01/25 ?? Loc: US ? Attending Dr: Trista Pan D.O. ? Ordering Physician: Trista Pan D.O. ?? Date of Service: 02/01/25 ?? Procedure(s): US OB growth ?? Accession Number(s): [id number] ? cc: BUFFY DIANE ; Trista Pan D.O. ? [facility] ? [address] ? [place] [address] ? Patient Name: ?? FAHEEM BELCHER ? MRN: [facility]:[id number] ? date: 1995 ?Sex: F ?? Assigned Patient Location: US ?? Current Patient Location: ? Accession/Order Number: [id number] ?? Exam Date: 02/01/2025 ??13:36 ?Report Date: 02/02/2025 ??08:33 ? At the request of: ?? TRISTA ??QUETA ??DO ? Procedure: ??US OB growth ? [...] M.D. ??02/02/2025 8:33 AM ? Dictation Location: [facility]--02 ? Electronically authenticated by: [id number] ??Y ?? Date: 02/02/2025 ??08:33 ? Dictated By: ?Ana Michael M.D. ? Signed By: ?02/02/25 0835 ? DD/ 0833 ? TD/TT: ? Tube Station Attendant: Procedure Note Radiology, Radiologist, - 02/02/2025 [place] [address] Ultrasound Report Signed Patient: FAHEEM BELCHER RMR#: [id number] : 1995Acct:[id number] Age/Sex: 29 / FADM Date: 02/01/25 Loc: US Attending Dr: Trista Pan D.O. Ordering Physician: Trista Pan D.O. Date of Service: 02/01/25 Procedure(s): US OB growth Accession Number(s): [id number] cc: BUFFY DIANE ; Trista Pan D.O. The [address] [address] Patient Name: FAHEEM BELCHER MRN: [id number] date: 1995 Sex: F Assigned Patient Location: Current Patient Location: Accession/Order Number: [id number] Exam Date: 02/01/2025 13:36 Report Date: 02/02/2025 [...] Michael M.D. 02/02/2025 8:33 AM Dictation Location: [place] [address] Electronically authenticated by: [id number] Y Date: 508:33 Dictated By: Ana Michael M.D. Signed By:02/02/25834 DD/ 2 TD/TT: Tube Station Attendant: Authorizing ProviderResult TypeResult StatusGeneric External Data Provider CLINISYNC IMAGINGFinal Result documented in this encounter Visit Diagnoses Not on filedocumented in this encounter Care Teams Team MemberRelationshipSpecialtyStart DateEnd Date Buffy Diane MD [address] [place] [address] PCP - GeneralFamily Medicine09/19/22 Kayla Kahn DO [address] [place] [address] Referring Physician09/19/22documented as of this encounter
--- OUTSIDE RECORDS SUMMARY | 2025-02-15 13:38 | XMS_ITS | Encounter Summary ---
Author Organization [facility] Address [address] [place] [address] Care Team Providers Care Intern Name Role Phone Sri Ramírez MD Primary Care Provider [phone] Kayla Kahn DO Unavailable [phone] Daisy Hurst FINAL INSPECTION SUPERVISOR-MANUFACTURING QUALITY MANAGER Unavailable Encounter Details DateTypeDepartmentCare Team (Latest Contact Info)Zzlhycsbbux87/10/2024linisync Result Encounter [facility] External Department Unsolicited Provider, Generic External Data Social History Tobacco UseTypesPacks/DayYears UsedDateSmoking Tobacco: FormerCigarettes0.55 Smokeless Tobacco: NeverAlcohol UseStandard Drinks/WeekCommentsNever0 (1 standard drink = 0.6 oz pure alcohol)caffeine: 1-2 cups coffee or energy drink inoblzygmankL8103 Health LiteracyAnswerDate RecordedHow often do you need [...] a week 09/24/2023How often do you attend worship or spiritism services?Patient declined 09/24/2023o you belong to any clubs or organizations such as worship groups, unions, fraternal or athletic groups, or school groups?No09/24/2023How often do you attend meetings of the clubs or organizations you belong to?Never06/ Are you , , , , never , or living with a partner?Patient xvzswpic01/13/2024UDIT-CAnswerDate RecordedQ1: How often do you have a [...] heating?Not hard at all09/24/2023HQ-2AnswerDate RecordedPatient Health Questionnaire-2 [facility]tvwi481[facility] [place] of Occupational Health - Occupational Stress QuestionnaireAnswerDate [...] or living in a fci (including now)?No09/24/2023 CommentsUnknownSex and Gender InformationValueDate RecordedSex Assigned at BirthNot on fileLegal DplNbpmzn96/15/2023 6:40 PM EDTGender IdentityNot on fileSexual OrientationNot on filedocumented as of this encounter Functional Status * Over the past 2 weeks, how often have you been bothered by any of the following problems?QuestionAnswerDate of AssessmentAuthorLittle interest or pleasure in doing thingsNot at all07/18/2024 8:00 AM Oxana Umanzor MA Feeling down, depressed, or hopelessNot at all07/18/2024 8:00 AM Oxana Umanzor MAPatient Health Questionnaire-2 Dggvd665 8:00 AM EDT Oxana Blanca MA documented as of this encounter Plan of Treatment DateTypeDepartmentCare Team (Latest Contact Info)Vqvxtarrdbo21/11/2025 10:30 AM ESTRoutine [facility] [place] [facility] [address] [phone] Jose Pan DO [address] [place] [address] documented as of this encounter Procedures Procedure NamePriorityDate/TimeAssociated DiagnosisCommentsXR ABDOMEN 1V 03/22/2024 11:48 AM EST documented in this encounter Results * XR ABDOMEN 1V (03/22/2024 11:48 AM EST)Anatomical RegionLateralityModality OtherSpecimen (Source)Anatomical Location / LateralityCollection Method / VolumeCollection TimeReceived Time03/22/2024 11:48 AM EST Narrative 03/22/2024 11:51 AM EST [facility] ?[address] ? [place] [address] ?XRay Report ? Signed ? Patient: HOLLEY,FAHEEM R ?MR#: [id number] ?? : 1995 ?Acct:[id number] ?? Age/Sex: 29 / F ?ADM Date: 12/09/24 ?? Loc: US ? Attending Dr: Bonita Yu CARD SETTER ? Ordering Physician: Bonita Yu NP ?? Date of Service: 03/21/24 ?? Procedure(s): XR abdomen 1V ?? Accession Number(s): [id number] ? cc: BENEDICTOSRI ; Bonita Yu NP ? [facility] ? [address] ? [place] [address] ? Patient Name: ?? FAHEEM BELCHER ? MRN: [facility]:[id number] ? date: 1995 ?Sex: F ?? Assigned Patient Location: US ?? Current Patient Location: US ?? Accession/Order Number: [id number] ?? Exam Date: 03/21/2024 ??13:38 ?Report Date: 03/22/2024 ??11:48 ? At the request of: ?? BONITA ??KHRIS ? Procedure: ??XR abdomen 1V ? EXAMINATION: XR abdomen 1V ? HISTORY: Kidney Stones ? COMPARISON: Ultrasound renal bilateral 03/21/2024 ? FINDINGS: ?? KIDNEY/URETER - RIGHT: No visible renal or ureteral calcifications. ?? KIDNEY/URETER - LEFT: No visible renal or ureteral calcifications. ?? PELVIS: No convincing ureteral stones. Tiny calcification within lower right ?? and lower left pelvis are nonspecific but favor phleboliths. ? BOWEL: No abnormal dilation or deviation. ?? BONES: No acute abnormality. ?? OTHER: Negative. No abnormal gaseous collections. ? XR/XR abdomen 1V ?? IMPRESSION: ? 1. No visible urinary tract calculi on this study. Evaluation is limited by ?? dense overlying bowel content. ?? 2. Ultrasound of the kidneys performed on the same day showed several ?? nonobstructing stones within the kidneys. ? Electronically authenticated by: GARY ??BARBARA ?? Date: 03/22/2024 ??11:48 ? Dictated By: ?Gary Vasquez M.D. ? Signed By: ?03/22/24 1151 ? DD/ 1148 ? TD/TT: ? Casino Cashier: Procedure Note Radiology, Radiologist, MD - 03/22/[address] [address] XRay Report Signed Patient: FAHEEM BELCHER RMR#: [id number] : 1995Acct:[id number] Age/Sex: 29 / FADM Date: 03/21/24 Loc: US Attending Dr: Bonita Yu NP Ordering Physician: Bonita Yu NP Date of Service: 03/21/24 Procedure(s): XR abdomen 1V Accession Number(s): [id number] cc: SRI RAMÍREZ ; Bonita Yu NP [place] [address] Patient Name: FAHEEM BELCHER MRN: [id number] date: 1995 Sex: F Assigned Patient Location: Current Patient Location: Accession/Order Number: [id number] Exam Date: 03/21/2024 13:38 Report Date: 03/22/2024 [...] M.D. Signed By:03/22/24 1151 DD/ 1148 TD/TT: Casino Cashier: Authorizing ProviderResult TypeResult StatusGeneric External Data Provider CLINISYNC IMAGINGFinal Result documented in this encounter Visit Diagnoses Not on filedocumented in this encounter Care Teams Team MemberRelationshipSpecialtyStart DateEnd Date Sri Ramírez MD [address] [place] [address] [facility] - [facility]/19/22 Daisy Hurst APRN-MANUFACTURING QUALITY MANAGER [address] [facility] [address] [place] [address] PCP - [facility] Kayla Kahn DO [address] [place] [address] Referring Physician09/19/22documented as of this encounter
--- OUTSIDE RECORDS SUMMARY | 2025-02-15 13:38 | XMS_ITS | Encounter Summary ---
Author Organization [facility] Address [address] [place] [address] Care Team Providers Care Systems Test Technician Name Role Phone Sri Ramírez MD Primary Care Provider [phone] Kayla Kahn DO Unavailable [phone] Encounter Details DateTypeDepartmentCare Team (Latest Contact Info)Qserqthrwrx32/28/2025amboo flowsheet [facility] [place] [facility] [address] [place] [address] Jose Pan DO [address] [place] [id number] Social History Tobacco UseTypesPacks/DayYears UsedDateSmoking Tobacco: FormerCigarettes0.55 Smokeless Tobacco: NeverAlcohol UseStandard Drinks/WeekCommentsNever0 (1 standard drink = 0.6 oz pure alcohol)caffeine: 1-2 cups coffee or energy drink laxmoswpabldL6582 Health LiteracyAnswerDate RecordedHow often do you need [...] a week 09/24/2023How often do you attend anabaptist or hinduism services?Patient declined 09/24/2023o you belong to any [...] heating?Not hard at all09/24/2023HQ-2AnswerDate RecordedPatient Health Questionnaire-2 Gwugt862Finuniversity of [facility] [place] of Occupational Health - Occupational Stress QuestionnaireAnswerDate [...] a longterm (including now)?No09/24/2023 Estimated Date of XvqpjykkXuraasmyMiq56/14/2025Based on last menstrual period of 06/19/2024Sex and Gender InformationValueDate RecordedSex Assigned at BirthNot on fileLegal FpxHrbpjt29/15/2023 6:40 PM EDTGender IdentityNot on file Sexual OrientationNot on filedocumented as of this encounter Plan of Treatment DateTypeDepartmentCare Team (Latest Contact Info)Ygducdkbtpc60/11/2025 10:30 AM ESTRoutine [facility] [place] [facility] [address] [place] [phone] Jose Pan DO [address] [place] [address] documented as of this encounter Visit Diagnoses Not on filedocumented in this encounter Care Teams Team MemberRelationshipSpecialtyStart DateEnd Sri Ramírez MD [address] [place] [address] PCP - GeneralFamily Medicine09/19/22 Kayla Kahn DO [address] [place] [address] Referring Physician09/19/22documented as of this encounter
--- OUTSIDE RECORDS SUMMARY | 2025-02-15 13:38 | XMS_ITS | Encounter Summary ---
Author Organization [facility] Address [address] [place] [address] Care Team Providers Care Dope Mixer Name Role Phone Sri Ramírez MD Primary Care Provider [phone] Kayla Kahn DO Unavailable [phone] Daisy Hurst CONSTRUCTION TEACHER-BARREL DRILLER Unavailable Encounter Details DateTypeDepartmentCare Team (Latest Contact Info)Uyburtdyuiz49/10/2024linisync Result Encounter [facility] External Department Unsolicited Provider, Generic External Data Social History Tobacco UseTypesPacks/DayYears UsedDateSmoking Tobacco: FormerCigarettes0.55 Smokeless Tobacco: NeverAlcohol UseStandard Drinks/WeekCommentsNever0 (1 standard drink = 0.6 oz pure alcohol)caffeine: 1-2 cups coffee or energy drink [id number] Health LiteracyAnswerDate RecordedHow often do you need [...] a week 09/24/2023How often do you attend episcopal or restoration services?Patient declined 09/24/2023o you belong to any clubs or organizations such as episcopal groups, unions, fraternal or athletic groups, or school groups?No09/24/2023How often do you attend meetings of the clubs or organizations you belong to?Never06/ Are you , , , , never , or living with a partner?Patient jwibwasb35/13/2024UDIT-CAnswerDate RecordedQ1: How often do you have a [...] heating?Not hard at all09/24/2023HQ-2AnswerDate RecordedPatient Health Questionnaire-2 [id number] Occupational Health - Occupational Stress QuestionnaireAnswerDate [...] were you homeless or living in a long-term (including now)?No09/24/2023 CommentsUnknownSex and Gender InformationValueDate RecordedSex Assigned at BirthNot on fileLegal SqiFaaayx01/15/2023 6:40 PM EDTGender IdentityNot on fileSexual OrientationNot on filedocumented as of this encounter Functional Status * Over the past 2 weeks, how often have you been bothered by any of the following problems?QuestionAnswerDate of AssessmentAuthorLittle interest or pleasure in doing thingsNot at all07/18/2024 8:00 AM Oxana Umanzor MA Feeling down, depressed, or hopelessNot at all07/18/2024 8:00 AM Oxana Umanzor MAPatient Health Questionnaire-2 [id number] 8:00 AM MICHEALT Oxana Blanca MA documented as of this encounter Plan of Treatment DateTypeDepartmentCare Team (Latest Contact Info)Hyksvqvtubi12/11/2025 10:30 AM ESTRoutine [facility] [address] [phone] Jose Pan DO [address] [place] [address] documented as of this encounter Procedures Procedure NamePriorityDate/TimeAssociated DiagnosisCommentsUS RENAL BI03/22/2024 6:57 AM EST documented in this encounter Results * US RENAL BI (03/22/2024 6:57 AM EST)Anatomical RegionLateralityModalityOther Specimen (Source)Anatomical Location / LateralityCollection Method / Volume Collection TimeReceived Time03/22/2024 6:57 AM EST Narrative 03/22/2024 6:59 AM EST [facility] ?[address] ? [place] [address] ? Ultrasound Report ? Signed ? Patient: HOLLEY,FAHEEM R ?MR#: [id number] ?? : 1995 ?Acct:[id number] ?? Age/Sex: 29 / F ?ADM Date: 12/09/24 ?? Loc: US ? Attending Dr: Bonita Yu MACHINE TESTER ? Ordering Physician: Bonita Yu NP ?? Date of Service: 03/21/24 ?? Procedure(s): US renal BI ?? Accession Number(s): [id number] ? cc: SRI RAMÍREZ ; Bonita Yu NP ? [facility] ? [address] ? [place] [address] ? Patient Name: ?? FAHEEM BELCHER ? MRN: [facility]:[id number] ? date: 1995 ?Sex: F ?? Assigned Patient Location: US ?? Current Patient Location: ? Accession/Order Number: [id number] ?? Exam Date: 03/21/2024 ??12:58 ?Report Date: 03/22/2024 ??06:57 ? At the request of: ?? BONITA ??KHRIS ? Procedure: ??US renal BI ? EXAMINATION: US renal BI ? HISTORY: Kidney Stones ? COMPARISON: No relevant comparison available. ? TECHNIQUE: Ultrasound examination was performed of the kidneys and urinary ?? bladder. ? FINDINGS: ? RIGHT KIDNEY: Contain several small nonobstructing stones. Normal parenchymal ?? echogenicity. Color Doppler demonstrates blood flow within the kidney. Kidney: ? 11.3 x 4.4 x 4.7 cm ? LEFT KIDNEY: Contain several nonobstructing stones, largest is 6 mm. Normal ?? parenchymal echogenicity. Color Doppler demonstrates blood flow within the ?? kidney. Kidney: 11.6 x 5.3 x 5.5 cm ? BLADDER: No visible wall thickening, mass, or calculi. Post void residual: 5 ?? mL ? URETERAL JETS: Visualized bilaterally. ? US/US renal BI ?? IMPRESSION: ? 1. Bilateral nonobstructing nephrolithiasis. ? Electronically authenticated by: GARY ??BARBARA ?? Date: 03/22/2024 ??06:57 ? Dictated By: ?Gary Vasquez M.D. ? Signed By: ?03/22/24 0659 ? DD/ 0657 ? TD/TT: ? Glass Furnace Operator: Procedure Note Radiology, Radiologist, MD - 03/22/[address] [address] Ultrasound Report Signed Patient: FAHEEM BELCHER RMR#: [id number] : 1995Acct:[id number] Age/Sex: 29 / FADM Date: 03/21/24 Loc: US Attending Dr: Bonita Yu MACHINE TESTER Ordering Physician: Bonita Yu NP Date of Service: 03/21/24 Procedure(s): US renal BI Accession Number(s): [id number] cc: SRI RAMÍREZ ; Bonita Yu NP [place] [id number] Patient Name: FAHEEM BELCHER MRN: [id number] date: 1995 Sex: F Assigned Patient Location: US Current Patient Location: Accession/Order Number: [id number] Exam Date: 03/21/2024 12:58 Report Date: 03/22/2024 06:57 At the request of: BONITA UY Procedure: US renal BI EXAMINATION: US renal [...] Vasquez M.D. Signed By:03/22/2459 DD/ 6 TD/TT: Glass Furnace Operator: Authorizing ProviderResult TypeResult StatusGeneric External Data Provider [facility]NC IMAGINGFinal Result documented in this encounter Visit Diagnoses Not on filedocumented in this encounter Care Teams Team MemberRelationshipSpecialtyStart DateEnd Date Sri Ramírez MD [address] [place] [address] PCP - GeneralFaprly Medicine09/19/22 Daisy Hurst, CONSTRUCTION TEACHER-BARREL DRILLER [address] [address] PCP - [facility] Kayla Kahn DO [address] [place] [address] Referring Physician09/19/22documented as of this encounter
--- OUTSIDE RECORDS SUMMARY | 2025-02-15 13:38 | XMS_ITS ---
Author Organization [facility] Source Produ ction (ClinicalSummary Clone) Address Unknown Care Team Providers Care Chief Controller Center Name Role Phone Unavailable Primary Care Physician Unavailab le Results * [UNITY] ANEUPLOIDY NIPT Performed by: [employer] Component Value Range Date Fraction 9.4% 08/28/2024 06:07 am UTCRh(D) NIPTRhD SQKNJWPI80/18/2025 06:07 am UTCSex Chromosome AneuploidyNOT WHNATOJH07/18/2025 06:07 am UTCMonosomy XLOW RISK <1 in , 06:07 am UTCTrisomy 13LOW RISK <1 in , 06:07 am UTCTrisomy 18LOW RISK <1 in , 06:07 am UTCTrisomy 21LOW RISK <1 in , 06:07 am UTCFetal AaoWVXCRK05/18/2025 06:07 am UTCPregnancy AcfqfedgyIVTQCAUIT09/18/2025 06:07 am UTCFor detailed report, see PDFSee PDF 08/28/2024 06:07 am UTC08/28/2024 06:07 am UTC Social History Observation Value Start Date End Date
--- OUTSIDE RECORDS SUMMARY | 2025-02-15 13:41 | XMS_ITS | CCD ---
Author Organization [facility] Care Team Providers Care Inspector Bicycle Name Role Phone Sri Ramírez MD Primary Care Provider [phone] JASON BRADLEY Referring Unavailable BENEDICTO, SRI Mera [...] Provider Femi ROQUE, Kayla R Unavailable Sharifa-Nossek HEARING THERAPY DIRECTOR-FARE COLLECTOR, Daisy M Unavailable SRI RAMÍREZ Primary Care Physician [phone] Femi ROQUE, Kayla R Unavailable Bonita Pinedo Attending Unavailable Bonita Pinedo Attending Unavailable Mitra Ellis Attending Unavailable Mitra Ellis Admitting Unavailable Femi ROQUE Kayla R Unavailable Bonita Pinedo Attending Unavailable JONAH GOMEZ Attending Unavailable JONAH GOMEZ Attending Unavailable JONAH GOMEZ Attending Unavailable DAJA RYAN Attending Unavailable REGGIE DONOVAN Attending Unavailable BENEDICTO SRI Samaria Attending Unavailable BENEDICTO SRI Mera Referring Unavailable MAXIM, JOSE Attending Unavailable DAJA RYAN Attending Unavailable MAXIM, JOSE Attending Unavailable MAXIM, JOSE Attending Unavailable MAXIM, JOSE Attending Unavailable DAJA RYAN Attending Unavailable JANI, JAKE Attending Unavailable JANIJAKE NICHOLS Referring Unavailable MAXIM, JOSE Attending Unavailable MAXIM, JOSE Attending Unavailable MAXIM, JOSE Attending Unavailable MAXIM, JOSE Attending Unavailable MAXIM, JOSE Attending Unavailable SharifaDomingo HEARING THERAPY DIRECTOR-FARE COLLECTOR, Daisy Evans Unavailable Allergies Allergy ClassificationReported Allergen(s)Allergy TypeDate of OnsetReaction(s) Facility (20 sources)Bacitracin / Polymyxin B; Translations: [bacitracin-polymyxin B topical]Drug Dpcrqsc35-19-8678Nqyupbt (qualifier value)[facility] (20 sources)busPIRone; Translations: [buspirone]Drug Acafcrt26-02-9947Ysvjqbb, Anxiety (finding)[facility] (20 sources)Escitalopram; Translations: [escitalopram]Drug Ekafeju10-44-9409 Other, Drowsy (finding)[facility] (2 sources)busPIRone; Translations: [BuSpar][facility] ([facility] sources)Escitalopram; Translations: [Lexapro][facility] (2 sources)Bacitracin-Polymyxin; Translations: [Bacitracin-Polymyxin]Propensity to adverse reactions (disorder)[facility] Repository Medications Current Medications MedicationDrug Class(es)DatesSig (Normalized)Sig (Original)azelaic acid 0.15 mg/mg topical gel (15 sources)Start: 12-05-2024 End: 39-07-0655nuggyok acid (Finacea) 15 % gel Indications: Acne, unspecified acne type Apply 1 application topically in the morning and 1 application before bedtime. 60 g 11 12/05/2024 12/05/2025 Activecephalexin 500 mg oral capsule (3 sources)Cephalosporin AntibacterialStart: 06-10-2024 End: 13-39-9782oxwvhnqrzh (Keflex) 500 MG capsule Indications: Cellulitis of finger of right hand Take 1 capsule (500 mg) by mouth in the morning and 1 capsule (500 mg) at noon and 1 capsule (500 mg) in the eveningand 1 capsule (500 mg) before bedtime. Do all this for 7 days. 28 capsule 06/10/2024 06/17/2024 ActiveClindamycin (1 source)Lincosamide AntibacterialStart: 03-09-2024 End: 55-75-8977Jbusygriuot Phosphate (Xaciato) 2 % gel Indications: Bacterial vaginosis Insert 1 applicator into the vagina at bedtime for 1 day 8 g 03/09/2024 03/10/2024 Activedoxycycline hyclate 100 mg oral capsule (9 sources)Tetracycline-class DrugStart: 02-15-2024 End: 66-93-2665leyuxlkkpjw (Vibramycin) 100 MG capsule Indications: Bacterial infection due to mycoplasma Take 1 capsule (100 mg) by mouth in the morning and 1 capsule (100 mg) before bedtime. Do all this for 7 days. Take with at least 8 ounces (large glass) of water, do not lie down for 30 minutes after. 14 capsule 02/15/2024 02/22/2024 ActiveStart: 01-11-2024 End: 46-56-3272vktzwgucpis (Vibramycin) 100 MG capsule Indications: Pelvic pain in female Take 1 capsule (100 mg) by mouth in the morning and 1 capsule (100 mg) before bedtime. Take with at least 8 ounces (large glass) of water, do not lie down for 30 minutes after. 60 capsule 01/11/2024 2024 Activeescitalopram 5 mg oral tablet (4 sources)Serotonin Reuptake InhibitorStart: 11-65-8082qjdxeahkoadh (LEXAPRO) 5 MG tabletmetroNIDAZOLE 0.013 mg/mg vaginal gel (10 sources)Nitroimidazole AntimicrobialStart: 05-23-2024 End: 52-81-3641dyqmbOIGMNVQA (Nuvessa) 1.3 % gel Indications: Vaginal discharge , Vaginal burning Insert 5 g into the vagina 1 time for 1 dose 5 g 05/23/2024 05/23/2024 Discontinued (Other)Start: 03-09-2024 End: 90-31-1919koyaxIQFANGGU (Metrogel) 0.75 % vaginal gel Indications: Bacterial vaginosis Insert into the vaginaDaily for 5 days 70 g 03/09/2024 03/14/2024 ActiveStart: 2024 End: 34-57-6141mdcd 1 tablet by mouth in the morningmetroNIDAZOLE (Flagyl) 500 MG tablet Indications: BV (bacterial vaginosis) Take 1 tablet (500 mg) by mouth in the morning and 1 tablet (500 mg) before bedtime. Do all this for 7 days. Do not drink alcohol while taking this medication. 14 tablet 2024 02/17/2024 ActiveStart: 01-13-2024 End: 86-22-8149dyfo 1 tablet by mouth in the morningmetroNIDAZOLE (Flagyl) 500 MG tablet Indications: BV (bacterial vaginosis) Take 1 tablet (500 mg) by mouth in the morning and 1 tablet (500 mg) before bedtime. Do all this for 7 days. Do not drink alcohol while taking this medication. 14 tablet 01/13/2024 01/27/2024 Discontinuedmoxifloxacin 400 mg oral tablet (2 sources)Quinolone AntimicrobialStart: 02-15-2024 End: 39-40-3189rebn 1 tablet by mouth once dailymoxifloxacin (Avelox) [...] oral capsule (2 sources)Nitrofuran AntibacterialStart: 09-13-2024 End: 49-82-4016ulix 1 capsule by mouth in the morningnitrofurantoin, macrocrystal-monohydrate, (Macrobid) 100 MG capsule Indications: Urinary tract infection in mother during , antepartum Take 1 capsule (100 mg) by mouth in the morning and 1 capsule (100 mg) before bedtime. Do all this for 7 days. 14 capsule 09/13/2024 09/20/2024 Activeondansetron 4 mg disintegrating oral tablet (20 sources)Serotonin-3 Receptor AntagonistStart: 86-42-2022jiedejxzkdn ODT (Zofran-ODT) 4 MG disintegrating tablet DISSOLVE 1 TABLET on tongue EVERY 8 HOURS NEEDED FOR NAUSEA & FOR VOMITING 08/13/2024 Activepolyethylene glycol 3350 10614 mg powder for oral solution (4 sources)Osmotic LaxativeStart: 06-12-2021 End: 85-18-6079mwlxpafwpmga glycol (GLYCOLAX) 17 GM/SCOOP powder Take 17 g by mouth daily 1530 g 1 06/12/2021 07/12/2021 Activetamsulosin hydrochloride 0.4 mg oral capsule (4 sources)alpha-Adrenergic BlockerStart: 29-32-8910mgjn 1 capsule by mouth once dailytamsulosin (FLOMAX) 0.4 MG capsule Take 1 capsule by mouth daily 30 capsule 0 06/12/2021 Activeubidecarenone 30 mg oral capsule (20 sources)take 1 capsule by mouth once dailyco-enzyme Q-10 30 MG capsule Take 30 mg by mouth Daily Active Completed/Discontinued Medications MedicationDrug Class(es)DatesSig (Normalized)Sig (Original)atomoxetine 40 mg oral capsule (3 sources)Norepinephrine Reuptake Inhibitor End: 60-60-2263qypp 1 capsule by mouth once dailyatomoxetine (Strattera) 40 MG capsule Take 1 capsule by mouth Daily 01/11/2024 Discontinued (Other) azithromycin 500 mg oral tablet (8 sources)Macrolide AntimicrobialStart: 02-15-2024 End: 03-56-8439qgjh 1 tablet by mouth once dailyazithromycin (Zithromax) 500 MG tablet Indications: Bacterial infection due to mycoplasma Day 1: Take 2 tablets PO onetime dose; Day 2,3,4: Take 1 tablet daily 5 tablet 02/15/2024 04/20/2024 Discontinued (Therapy completed)sertraline 25 mg oral tablet (3 sources)Serotonin Reuptake InhibitorStart: 11-16-2023 End: 24-48-2232ksxw 1 tablet by mouth once dailysertraline (Zoloft) 25 MG tablet Indications: Generalized anxiety disorder (CMS/HCC) Take 1 tablet (25 mg) by mouth Daily 30 tablet 1 11/16/2023 01/11/2024 Discontinued (Other) Problems Active Problems Problem ClassificationProblemDateDocumented DateEpisodic/ChronicAdjustment disorders (20 sources)Adjustment disorder with mixed anxiety and depressed mood; Translations: [Adjustment disorder with mixed anxiety and depressed mood]Onset: 846118-02-1984JoewatcAxkdepso reactions (1 source)Unspecified contact dermatitis, unspecified cause; Translations: [[employer] CONTACT DERMATITIS UNS CAUSE]Onset: 11-99-1258UlbaiqonJvsgudc disorders (20 sources)Anxiety; Translations: [Anxiety disorder, unspecified]Onset: 447312-46-7823MfacfbbIfzvqmoydqybr and screening for infectious disease (3 sources)Encounter for screening for human papillomavirus (HPV); Translations: [Patient encounter status]Onset: 657881-36-8539PudfzbxnJdgcjfjhy disorders (20 sources)Amenorrhea; Translations: [Amenorrhea, unspecified]Onset: 09-06-2022 96-45-4776LdvhlgiYrtc disorders (20 sources)Bipolar affective disorder, currently depressed, moderate; Translations: [Bipolar disorder, currentepisode depressed, moderate]Onset: 557516-90-1963UsvehdtXwjvofsoheiy breast conditions (2 sources)Lump in lower outer quadrant of left breast; Translations: [Unspecified lump in the left breast, lower outer quadrant]13-12-6386Cxesnhnt Other aftercare (2 sources)Surgical follow-up; Translations: [Encounter for follow-up examination after completed treatment for conditions other than malignant neoplasm]08-75-2191HsofvatzQehvz aftercare (2 sources)Removal of sutures done; Translations: [Encounter for removal of sutures]70-59-3598IetiumtcYduem complications of (2 sources)Urinary tract infection in ; Translations: [Unspecified infection of urinary tract in , unspecified trimester]09-13-2024 EpisodicOther complications of (2 sources) size does not accord with dates; Translations: [Uterine size- date discrepancy, unspecified trimester]69-66-4523MnahdewqJiqci diseases of kidney and ureters (3 sources)Hydronephrosis; Translations: [Hydronephrosis with renal and ureteral calculous obstruction]EpisodicOther female genital disorders (2 sources)Vaginal discharge; Translations: [Other specified noninflammatory disorders of vagina]05-38-8789MowxhlfdBorqi female genital disorders (2 sources)Burning sensation of vagina; Translations: [Other specified conditions associated with female genital organs and menstrual cycle]05-23-2024 EpisodicOther gastrointestinal disorders (20 sources)Irritable bowel syndrome with diarrhea; Translations: [Irritable bowel syndrome with diarrhea]Onset: 545216-40-5822SykytlvOjfua inflammatory condition of skin (3 sources)Pruritus, unspecified; Translations: [PRURITUS UNSPECIFIED]Onset: 65-16-0841SmqmbflaVazwq nervous system disorders (20 sources)Inattention; Translations: [Attention and concentration deficit] Onset: 999987-38-1208LkfsjotCxzqf nervous system disorders (2 sources)Choroid plexus cyst; Translations: [Cerebral cysts]00-43-6298Svjqhjb Other and delivery including normal (20 sources); Translations: [Encounter for supervision of normal , unspecified, unspecified trimester]75-26-9492LqrglnmoDggyw screening for suspected conditions (not mental disorders or infectious disease) (14 sources)Encounter for screening for malignant neoplasm of cervix; Translations: [Patient encounter status]Onset: 25-15-2783QhonzgckVddwa skin disorders (2 sources)Acne; Translations: [Acne, unspecified]03-06-2873MbxqhhroRaglgxou codes; unclassified (2 sources)Gestation period, 12 weeks; Translations: [12 weeks gestation of ]66-35-5641MdxachiqCulvsnps codes; unclassified (2 sources)Gestation period, 14 weeks; Translations: [14 weeks gestation of ]76-95-6551HorxdkwyOrekpzhf codes; unclassified (2 sources)Gestation period, 16 weeks; Translations: [16 weeks gestation of ]46-74-0695BcorlroqIyctpgjm codes; unclassified (2 sources)Gestation period, 20 weeks; Translations: [20 weeks gestation of ]78-87-3352QivnnndhNnosgmvx codes; unclassified (2 sources)Gestation period, 24 weeks; Translations: [24 weeks gestation of ]87-80-8200PsslwjtnOblglbmi codes; unclassified (2 sources)Gestation period, 27 weeks; Translations: [27 weeks gestation of ]88-29-0264VwjnvjctEppihrre codes; unclassified (2 sources)Gestation period, 29 weeks; Translations: [29 weeks gestation of ]83-94-1012QoajjfpwUemnibrc codes; unclassified (2 sources)Gestation period, 31 weeks; Translations: [31 weeks gestation of ]76-25-0815QoistnctSwezfpqe codes; unclassified (2 sources)Gestation period, 33 weeks; Translations: [33 weeks gestation of ]54-75-4102VreggyxrCtqi and subcutaneous tissue infections (2 sources)Cellulitis of finger of right hand; Translations: [Cellulitis of right finger]63-67-6105TnwvbadgAgaoqptgusix (9 sources)Pain in pelvis; Translations: [Pain in pelvis]Onset: 09-06-2022 09-06-2022 Past or Other Problems Problem ClassificationProblemDateDocumented DateEpisodic/ChronicAbdominal pain (20 sources)Suprapubic pain; Translations: [Pelvic and perineal pain]Onset: 94-13-6001CchcnfhsYdkvdvmxq infection; unspecified site (20 sources)Mycoplasma infection; Translations: [Mycoplasma infection, unspecified site]Onset: 626982-94-1558DqqzkuyfGmtoklfr of urinary tract (20 sources)Kidney stone; Translations: [Calculus of kidney]Onset: 07-25-2013 86-14-4304EqcfgyavNgczpxpcuvzh of device; implant or graft (20 sources)Disorder of intrauterine contraceptive device; Translations: [Unspecified complication of genitourinary prosthetic device, implant and graft, initial encounter]Onset: 166631-20-6095TizkssvpZdrvqgqzczvmv symptoms and ill-defined conditions (20 sources)Dysuria; Translations: [Dysuria]Onset: 98-17-8683Mhqlkvlz Inflammatory diseases of female pelvic organs (20 sources)Bacterial vaginosis; Translations: [Acute vaginitis]Onset: 608619-73-8779IfvnkusgBzhbc complications of (20 sources)Anxiety in ; Translations: [Other mental disorders complicating , unspecified trimester]Onset: EpisodicOther complications of (20 sources)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 ; Translations: [Other mental disorders complicating , unspecified trimester]Onset: 961442-75-9068WlnpoyboMqjgl complications of (20 sources)Other mental disorders complicating , unspecified trimester; Translations: [Mental disorders of mother, antepartum condition or complication]Onset: 245175-07-2615UsgqcpvsCjcdl female genital disorders (20 sources)Vaginal odor; Translations: [Other specified noninflammatory disorders of vagina]Onset: 006500-96-8938JiukthwiNgpgs gastrointestinal disorders (20 sources)Slow transit constipation; Translations: [Slow transit constipation] Onset: 392329-29-3686EawkgjjcGuujv infections; including parasitic (20 sources)History of chlamydial infection; Translations: [Personal history of other infectious and parasitic diseases]Onset: 344567-45-0748Fwyrxvzv Urinary tract infections (20 sources)Cystitis, unspecified with hematuria; Translations: [Urinary tract infectious disease]Onset: 566741-80-2227Ydrkcrjk Results Test NameValueInterpretationReference RangeFacilityUrinalysis macro (dipstick) panel (U)on 85-30-3758Qvmxeggiy, UANegativeNegative - 4(70) +++ mg/dLNOMS HealthcareBlood, UANegativeNegative - 50 Allen/mcLNOMS HealthcareClarity, UAClear NOMS HealthcareColor, UAYellowNOMS HealthcareGlucose, UANegativeNegative - 2000(110) ++++ mg/dLNOMS HealthcareInterpretation and review of laboratory resultsNormalNOMS HealthcareKetones, UANegativeNegative - 160(16) ++++ mg/dLNOMS HealthcareLeukocytes, UANegativeNegative - 500+++ Andrei/mcLNOMS HealthcareNitrite, UANegativeNegative - PositiveNOMS HealthcarepH, UA6.55 - 9N[facility] Healthcare Protein, UANegativeNegative - 1999(20) ++++ mg/dLNOMS HealthcareSpec Grav, UA 1.0101 - 1.03NOMS HealthcareUrobilinogen, UA1.00.2 - 12 mg/dLNOMS HealthcareNOMS HealthcareUS OB GROWTHon 59-46-1223Tda [place] [address] Ultrasound Report Signed Patient: FAHEEM BABB MR#: [id number] : 1995 Acct:[id number] Age/Sex: 29 / F ADM Date: 02/01/25 Loc: US Attending Dr: Jose Pan D.O. Ordering Physician: Jose Pan D.O. Date of Service: 02/01/25 Procedure(s): US OB growth Accession Number(s): [id number] cc: SRI RAMÍREZ ; Jose Pan D.O. The [place] [id number] Patient Name: FAHEEM BABB MRN: [id number] date: 1995 Sex: F Assigned Patient Location: US Current Patient Location: Accession/Order Number: [id number] Exam Date: 02/01/2025 13:36 Report Date: 02/02/2025 08:33 At the request of: JOSE PAN DO Procedure: US OB growth ULTRASOUND OB GROWTH COMPARISON: 11/07/2024 and 12/05/2004 CLINICAL DATA: size and consistent with dates There is a single live intrauterine gestation in cephalic presentation. There is cardiac and somatic activity with [...] these measurements is 32 weeks 5 days +/- 2 weeks 2 days. This correlates with dates based on the prior. The estimated date of delivery is 03/24/2025. Estimated weight is 4 lbs. 6 oz. +/- 11 ounces (43%). US/US OB growth IMPRESSION: SINGLE LIVE INTRAUTERINE GESTATION WITH ULTRASOUND AGE OF 32 WEEKS 5 DAYS Impression dictated by: Ana Michael M.D. 02/02/2025 8:33 AM Dictation Location: [place] [address] Electronically authenticated by: [id number] Y Date: 02/02/2025 08:33 Dictated By: Ana Michael M.D. Signed By: 02/02/25834 DD/ 2 TD/TT: Commercial Lines Manager:TBHRadiology, Radiologist, - 02/02/2025 [place] [address] Ultrasound Report Signed Patient: FAHEEM BABB MR#: [id number] : 1995 Acct:[id number] Age/Sex: 29 / F ADM Date: 02/01/25 Loc: US Attending Dr: Jose Pan D.O. Ordering Physician: Jose Pan D.O. Date of Service: 02/01/25 Procedure(s): US OB growth Accession Number(s): [id number] cc: SRI RAMÍREZ ; Jose Pan D.O. The [place] [address] Patient Name: FAHEEM BABB MRN: [id number] date: 1995 Sex: F Assigned Patient Location: Current Patient Location: Accession/Order Number: [id number] Exam Date: 02/01/2025 13:36 Report Date: 02/02/2025 08:33 At the request of: JOSE PAN DO Procedure: US OB growth ULTRASOUND OB GROWTH COMPARISON: 11/07/2024 and 12/05/2004 CLINICAL DATA: size and consistent with dates There is a single live intrauterine gestation in cephalic presentation. There is cardiac and somatic activity with [...] these measurements is 32 weeks 5 days +/- 2 weeks 2 days. This correlates with dates based on the prior. The estimated date of delivery is 03/24/2025. Estimated weight is 4 lbs. 6 oz. +/- 11 ounces (43%). US/US OB growth IMPRESSION: SINGLE LIVE INTRAUTERINE GESTATION WITH ULTRASOUND AGE OF 32 WEEKS 5 DAYS Impression dictated by: Ana Michael M.D. 02/02/2025 8:33 AM Dictation Location: [place] [address] Electronically authenticated by: [id number] Y Date: 02/02/2025 08:33 Dictated By: Ana Michael M.D. Signed By: 02/02/2535 DD/ 2 TD/TT: Commercial Lines Manager: [facility] HospitalRadiology Study observation (narrative)[facility] OB GROWTHOrdered By: Radiologist Radiology on 58-41-2725ZZMVPike County Memorial Hospital Work Phone: US OB LIMITED 1+ FETUSESon 54-26-6443OQ OB LIMITED 1+ FETUSESFINDINGS: Comparison made with prior examination of November 18, 2024. Single viable intrauterine with normal and cardiac activity, heart rate 144 bpm. Intracranial examinations demonstrates no significant choroid plexus cyst or hydrocephalus. Gestational age of 31 weeks, 2 days with an estimated delivery date of March 26, 2025. IMPRESSION: Normal intracranial appearing, viable intrauterine . TRANSCRIBED BY: ELECTRONICALLY SIGNED BY: Cecilio Rivas AvailableComment on above:Order Comment: US OB REEVAL ABN Estimated Date of Delivery: 03/26/25 Gestational Age as of 01/24/2025: 73o1yLeoqywkizv macro (dipstick) panel (U)on 29-76-8783Xapizlxjn, UANegativeNegative - 4(70) +++ mg/dLNOMS HealthcareBlood, UANegativeNegative - 50 Allen/mcLNOMS HealthcareClarity, UAClearNOMS Healthcare Color, UAYellowNOMS HealthcareGlucose, UANegativeNegative - 1999(110) ++++ mg/dL NOMS HealthcareKetones, UANegativeNegative - 160(16) ++++ mg/dLNOMS Healthcare Leukocytes, UANegativeNegative - 500+++ Andrei/mcLNOMS HealthcareNitrite, UA NegativeNegative - PositiveNOMS HealthcarepH, UA6.55 - 9NOMS HealthcareProtein, UANegativeNegative - 1999(20) ++++ mg/dLNOMS HealthcareSpec Grav, UA1.0101 - 1.03NOMS HealthcareUrobilinogen, UA2.00.2 - 12 mg/dLNOMS HealthcareNOMS HealthcareUrinalysis macro (dipstick) panel (U)on 64-15-7450Rxnitoixa, UA NegativeNegative - 4(70) +++ mg/dLNOMS HealthcareBlood, [...] mg/dLNOMS HealthcareNOMS HealthcareUrinalysis macro (dipstick) panel (U)on 98-31-1673Utonqggpz, UANegativeNegative - 4(70) +++ mg/dLNOMS HealthcareBlood, UANegativeNegative [...] - 12 mg/dLNOMS HealthcareNOMS HealthcareGLUCOSE 1 HOURon 40-22-3561Cnwhiup [Mass/Vol]124 mg/dLNINF - 130 mg/dL NOMS HealthcareCLINISYNCNOMS HealthcareUS for multiple gestation limitedon 94-86-7315[place]sf[place] [address] Ultrasound Report Signed Patient: FAHEEM BABB MR#: [id number] : 1995 Acct:[id number] Age/Sex: 29 / F ADM Date: 12/05/24 Loc: US Attending Dr: Jake Gunter Ordering Physician: Jake Gunter Date of Service: 12/05/24 Procedure(s): US OB follow up Accession Number(s): [id number] cc: SRI RAMÍREZ ; Jake Gunter [place] [address] Patient Name: FAHEEM BABB MRN: [id number] date: 1995 Sex: F Assigned Patient Location: US Current Patient Location: US Accession/Order Number: [id number] Exam Date: 12/05/2024 13:08 Report Date: 12/05/2024 [...] Jr., D.O. 12/05/2024 2:33 PM Dictation Location: [place] [address] Electronically authenticated by: [id number] Y Date: 12/05/2024 14:33 Dictated By: Elpidio Brush M.D. Signed By: 12/05/24 1436 DD/ 32 TD/TT: Commercial Lines Manager:TBHRadiology, Radiologist, MD - 12/05/2024 [place] [address] Ultrasound Report Signed Patient: FAHEEM BABB MR#: [id number] : 1995 Acct:[id number] Age/Sex: 29 / F ADM Date: 12/05/24 Loc: US Attending Dr: Jake Gunter Ordering Physician: Jake Gunter Date of Service: 12/05/24 Procedure(s): US OB follow up Accession Number(s): [id number] cc: SRI RAMÍREZ Kristina [facility] [place] [address] Patient Name: FAHEEM BABB MRN: [id number] date: 1995 Sex: F Assigned Patient Location: US Current Patient Location: US Accession/Order Number: [id number] Exam Date: 12/05/2024 13:08 Report Date: 12/05/2024 [...] Jr., D.O. 12/05/2024 2:33 PM Dictation Location: [place] [address] Electronically authenticated by: [id number] Y Date: 12/05/2024 14:33 Dictated By: Elpidio Brush M.D. Signed By: 12/05/24 1436 DD/ 143 TD/TT: Commercial Lines Manager: [facility] HospitalRadiology Study observation (narrative)NOMS HealthcareUS for multiple gestation limitedOrdered By: Radiologist Radiology on 79-43-1951[facility] Work Phone: Urinalysis macro (dipstick) panel [...] HealthcareNo Panel InformationOrdered By: Radiologist Radiology on 05-25-5888[employer] Work Phone: No Panel Informationon 62-83-5550Sdseoysun Study observation (narrative)NOMS HealthcareUS OB ANATOMYon 70-97-2058[address] [address] Ultrasound Report Signed Patient: FAHEEM BABB MR#: [id number] : 1995 Acct:[id number] Age/Sex: 29 / F ADM Date: 11/07/24 Loc: US Attending Dr: Jose Pan D.O. Ordering Physician: Jose Pan D.O. Date of Service: 11/07/24 Procedure(s): US OB anatomy Accession Number(s): [id number] cc: SRI RAMÍREZ ; Jose Pan D.O. [place] [id number] Patient Name: FAHEEM BABB MRN: [id number] date: 1995 Sex: F Assigned Patient Location: US Current Patient Location: US Accession/Order Number: [id number] Exam Date: 11/07/2024 12:17 Report Date: 11/07/2024 [...] all 4 extremities were surveyed by the ripening room hand. 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 [...] Michael M.D. 11/07/2024 12:24 PM Dictation Location: [place] [address] Electronically authenticated by: [id number] Y Date: 11/07/2024 12:24 Dictated By: Ana Michael M.D. Signed By: 11/07/24 1226 DD/ 1224 TD/TT: Commercial Lines Manager:TBHRadiology, Radiologist, - 11/07/2024 [place] [address] Ultrasound Report Signed Patient: FAHEEM BABB MR#: [id number] : 1995 Acct:[id number] Age/Sex: 29 / F ADM Date: 11/07/24 Loc: US Attending Dr: Jose Pan D.O. Ordering Physician: Jose Pan D.O. Date of Service: 11/07/24 Procedure(s): US OB anatomy Accession Number(s): [id number] cc: SRI RAMÍREZ ; Jose Pan D.O. [facility] [place] [id number] Patient Name: FAHEEM BABB MRN: [id number] date: 1995 Sex: F Assigned Patient Location: US Current Patient Location: US Accession/Order Number: [id number] Exam Date: 11/07/2024 12:17 Report Date: 11/07/2024 [...] all 4 extremities were surveyed by the ripening room hand. 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 [...] Michael M.D. 11/07/2024 12:24 PM Dictation Location: [place] [address] Electronically authenticated by: [id number] Y Date: 11/07/2024 12:24 Dictated By: Ana Michael M.D. Signed By: 11/07/24 1226 DD/ 1224 TD/TT: Commercial Lines Manager: PABLITO Germain OB CERVICAL LENGTHon 09-65-[place]16[place], [place] [address] Ultrasound Report Signed Patient: FAHEEM BABB MR#: [id number] : 1995 Acct:[id number] Age/Sex: 29 / F ADM Date: 11/07/24 Loc: US Attending Dr: Jose Pan D.O. Ordering Physician: Jose Pan D.O. Date of Service: 11/07/24 Procedure(s): US OB cervical length Accession Number(s): [id number] cc: SRI RAMÍREZ ; Jose Pan D.O. The [address] [address] Patient Name: FAHEEM BABB MRN: [id number]:[id number] date: 1995 Sex: F Assigned Patient Location: Current Patient Location: Accession/Order Number: [id number] Exam Date: 11/07/2024 12:17 Report Date: 11/07/2024 [...] all 4 extremities were surveyed by the ripening room hand. 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 [...] Michael M.D. 11/07/2024 12:24 PM Dictation Location: [place] [address] Electronically authenticated by: [id number] Y Date: 11/07/2024 12:24 Dictated By: Ana Michael M.D. Signed By: 11/07/24 1226 DD/ 1224 TD/TT: Commercial Lines Manager:CHRISadiologmatthieu Radiologist, - 11/07/2024 The [place] [id number] Ultrasound Report Signed Patient: FAHEEM BABB MR#: [id number] : 1995 Acct:[id number] Age/Sex: 29 / F ADM Date: 11/07/24 Loc: US Attending Dr: Jose Pan D.O. Ordering Physician: Jose Pan D.O. Date of Service: 11/07/24 Procedure(s): US OB cervical length Accession Number(s): [id number] cc: SRI RAMÍREZ ; Jose Pan D.O. The [place] [id number] Patient Name: FAHEEM BABB MRN: [id number] date: 1995 Sex: F Assigned Patient Location: US Current Patient Location: US Accession/Order Number: [id number] Exam Date: 11/07/2024 12:17 Report Date: 11/07/2024 [...] all 4 extremities were surveyed by the ripening room hand. 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 [...] Michael M.D. 11/07/2024 12:24 PM Dictation Location: [place] [address] Electronically authenticated by: [id number] Y Date: 11/07/2024 12:24 Dictated By: Ana Michael M.D. Signed By: 11/07/24 1226 DD/ 1224 TD/TT: Commercial Lines Manager: PABLITO HealthcareUrinalysis macro (dipstick) panel (U)on 51-29-5309Lbgzjsvyu, UA NegativeNegative - 4(70) +++ mg/dLNOMS HealthcareBlood, [...] HealthcareNOMS HealthcareAFP, SERUM, OPEN SPINA BIFIDA on 55-97-8315YVB MOM1.01.NOMS HealthcareAFP VALUE52.0 ng/mL.[facility] COMMENT:Comment.[facility] HospitalComment on above:Alejandra Santiago, Ph.D., [facility] Director References: Available Upon Request. Multiples Of Median Cutoffs For AFP Elevations Mascorro 2.5 Black 2.8 IDD 2.0 Twins 4.5 Abbreviation Definitions IDD - Insulin Dep Diabetes OSBR - Open Spina Bifida Risk For further inquiries contact [employer] [facility] at [phone]. This test was developed and its performance characteristics determined by [employer]. It has not been cleared or approved by the Food and Drug Administration. Performed at: [facility] [address] [facility] [facility] [facility], [place], [place] [address] Funeral Counselor: Halina Hill [facility], Phone: [phone] GEST. AGE ON COLLECTION DATE19.4. weeksNODE HealthcareGESTAT. AGE BASED ONLMP. [facility] HealthcareComment on above:Recalculations are not recommended when gestational dating by LMP and ultrasound are within 10 days. INSULIN DEP DIABETESNo.[facility] HealthcareINTERPRETATIONComment.[facility] Comment on above:Interpretation: Screen Negative This result [...] Customer Services to discuss available options. The [employer] recommends amniocentesis be offered to women age 35 and older. MATERNAL AGE AT EDD28.1. yrNODE HealthcareMULTIPLE GESTATIONNo.[facility] Healthcare OSBR RISK 1 [id number].[facility] HealthcareRACECaucasian.[facility] HospitalRESULTSReport. [facility] HospitalTEST RESULTS:Negative.[facility] HospitalKjqxdjxedfHOHQDM491. lbsNOMS HealthcarePREGNANCY N N LMP 20241010 1 16 N 1 Y 153 N N N N N White/ CLINISYNCNOMS HealthcareUrinalysis macro (dipstick) panel (U)on 10-10-2024 Bilirubin, UANegativeNegative - 4(70) +++ mg/dLNOMS HealthcareBlood, UANegative Negative - 50 Allen/mcLNODE HealthcareClarity, UAClearNOMS HealthcareColor, UA YellowNOMS HealthcareGlucose, UANegativeNegative - 2000(110) ++++ mg/dLNODE HealthcareInterpretation and review of laboratory resultsNormalNODE Healthcare Ketones, UANegativeNegative - 160(16) ++++ mg/dLNODE HealthcareLeukocytes, UA NegativeNegative - 500+++ Andrei/mcLNODE HealthcareNitrite, UANegativeNegative - PositiveNOMS HealthcarepH, UA75 - 9NOMS HealthcareProtein, UANegativeNegative - 2000(20) ++++ mg/dLNODE HealthcareSpec Grav, UA1.021 - 1.03NODE Healthcare Urobilinogen, UA0.20.2 - 12 mg/dLNODE HealthcareNODE HealthcareRECURRENT VAGINITIS (HTRX)on 59-26-5639FAJUHBGZM LAZVZZO7TCFI HealthcareATOPOBIUM VAGINAE Not detectedNOMS HealthcareBVAB 2,3 (BACTERIAL VAGINOSIS ASSOCIATED BACTERIA 2, 3); MOBILUNCUS RMF6BZNG HealthcareBVAB 2,3 (BACTERIAL VAGINOSIS ASSOCIATED BACTERIA 2, 3); MOBILUNCUS SPPNot detectedNOMS HealthcareCANDIDA ALBICANS, PARAPSILOSIS, ZSQIYCQTBR4FXDM HealthcareCANDIDA ALBICANS, PARAPSILOSIS, TROPICALISNot detectedNOMS HealthcareCANDIDA HLATTDFL6NEBU HealthcareCANDIDA GLABRATANot detectedNOMS HealthcareCANDIDA NJGDSH5VQOO HealthcareCANDIDA KRUSEI Not detectedNOMS HealthcareCHLAMYDIA TSMZKISUIZI3VGIO HealthcareCHLAMYDIA TRACHOMATISNot detectedNOMS HealthcareGARDNERELLA KTSTLTAFA1KPIE Healthcare GARDNERELLA VAGINALISNot detectedNOMS HealthcareMEGASPHAERA (TYPES 1, 2)0NOMS HealthcareMEGASPHAERA (TYPES 1, 2)Not detectedNOMS HealthcareMYCOPLASMA XSXRRTDDSE7NBQU HealthcareMYCOPLASMA GENITALIUMNot detectedNOMS Healthcare NEISSERIA CTQOFDSKTNP4HYQJ HealthcareNEISSERIA GONORRHOEAENot detectedNOMS HealthcareTRICHOMONAS KKQGVFWXV7ATFA HealthcareTRICHOMONAS VAGINALISNot detected NOMS HealthcareNOMS HealthcareUrinalysis macro [...] mg/dLNOMS HealthcareNOMS HealthcareUrinalysis macro (dipstick) panel (U)on 52-37-0237Fiefcvxjy, UA NegativeNegative - 4(70) +++ mg/dLNOMS HealthcareBlood, UAPositiveNegative - 50 Allen/mcLNOMS HealthcareClarity, UAClearNOMS HealthcareColor, UAYellowNOMS HealthcareGlucose, UANegativeNegative - 2000(110) ++++ mg/dLNOMS Healthcare Interpretation and review of laboratory resultsAbnormalNOMS HealthcareKetones, UAPositiveNegative - 160(16) ++++ mg/dLNOMS HealthcareLeukocytes, UANegative Negative - 500+++ Andrei/mcLNOMS HealthcareNitrite, UANegativeNegative - Positive NOMS HealthcarepH, UA75 - 9NOMS HealthcareProtein, UANegativeNegative - 1999(20) ++++ mg/dLNOMS HealthcareSpec Grav, UA1.021 - 1.03NOMS HealthcareUrobilinogen, UA1.00.2 - 12 mg/dLNOMS HealthcareNOMS HealthcareBOX TESTon 16-93-6445HHP TEST SENT OUTunthe surgical hospital at southwoodsNODE RgpvxtpthiDWF3jjyzrXQXB HuucvzwgugBAX17/12/25NODE Healthcare UNITY BOX CLINISYNCNOMS HealthcareHCG ( test) Ql (U)on 16-58-7437Mjvxbfvawagsey and review of laboratory resultsAbnormalNOMS HealthcarePreg Test, UrPositive NegativeNOMS HealthcareNOMS HealthcareUS OB TRANSVAGINALon 19-76-0874LY OB TRANSVAGINALEXAM: US OB TRANSVAGINAL HISTORY: Dating. [...] II, MD, PHD at 21-Aug-2024 08:21:12 PM [facility] TeleradiologyNormalNot AvailableComment on above:Order Comment: US OB TRANSVAGINAL No LMP recorded.Urinalysis macro (dipstick) panel (U)on 02-86-3050Igtxfusxv, UA NegativeNegative - 4(70) +++ mg/dLNOMS HealthcareBlood, [...] 1.03NOMS HealthcareUrobilinogen, UA0.20.2 - 12 mg/dLNOMS HealthcareNOMS HealthcareAmbulatory Visit Summaryon 95-09-8218Nshowpknie Visit SummaryAmbulatory Visit Summary FAHEEM BABB :1995 Visit Date:08/01/2024 Ambulatory Visit Instructions Your Diagnosis UTI symptoms Your Care Team Attending Physician - PATRICIA ALBA, JONAH Fonseca Primary Care Physician - BENEDICTO DILLON, SRI [...] you for choosing us for your care. [facility] HospitalUrology Office/Clinic Noteon 76-62-4357Snqeaqk Office/Clinic NoteUrology Office/Clinic Note Chief Complaint possible [...] Sx persisted so AO sent 7d Keflex. HOSPICE MASSAGE THERAPIST spoke with her about possible IC. We [...] E&M of Est. Patient Moderate 30-39 Min 22351 Urnls Dip Stick Auto w/o Microscopy POC 36127 Follow-up With When Contact Information Call for UTI symptoms. Call to schedule follow up after . Additional Instructions: Patient Education Kidney Stones, Etqh-af-Vvuu Problem List/Past Medical History Ongoing Adjustment disorder [...] Protein Urine Dipstick: Negative (08/01/24 13:23:00) Specific [place] Urine Dipstick: <=1.005 (08/01/24 13:23:00) Urine Appearance Urine Dipstick: Clear (08/01/24 13:23:00) Urine Color Urine Dipstick: Yellow (08/01/24 13:23:00) Urobilinogen Urine Dipstick: Normal 0.2-1 EU/dl (08/01/24 13:23:00) pH Urine Dipstick (more content not included)...[facility] HospitalComment on above:Result Comment: Electronically Signed By: JONAH GOMEZ PA-C\.br\Date and Time Signed: 08/02/2515:14 EDTBI US BREAST LIMITED LEFT on 32-16-7523JH US BREAST LIMITED LEFTThis is a summary [...] 2 ELECTRONICALLY SIGNED BY: Jairo Hernández M.D.NormalNot AvailableHca Houston Healthcare Southeast 64-77-0332XqrgjjjilDnppgujzi From: Anayeli Laureano To: EU - Administrative; Sent: 03/01/2024 11:42:31 EST Show up: 03/22/2024 11:42:00 EST Subject: Ambulatory Reminder Due Date/Time: 05/28/2024 11:42:00 EST Reminder/Recall Patient needs scheduled with [facility] for a 3 month F/U, due back in May 2024 MAY 16, 25 [facility] WITH AUTO DIFFon 21-25-0032NQHCIUJRM ABSOLUTE HHLT1LFQE HealthcareBasophils/100 WBC (Bld) 0.4 %0.2 - 2.0 %NOMS HealthcareEosinophils/100 WBC (Bld)2.3 %0.9 - 7.0 %NOMS HealthcareErythrocyte distribution width (RBC) [Ratio]11.9 %11.0 - 15.0 %NOMS HealthcareHematocrit (Bld) [Volume fraction]42 %36.0 - 48.0 %NOMS Healthcare Hemoglobin (Bld) [Mass/Vol]14.4 g/dL12.0 - 16.0 g/dLNODE HealthcareIMMATURE GRANULOCYTES ABS AUTO0.01NOMS HealthcareImmature granulocytes/100 WBC (Bld)0.2 % 0.0 - 0.5 %NOM HealthcareInterpretation and review of laboratory results AbnormalNODE HealthcareLYMPHOCYTES ABSOLUTE CDKN6DQAL HealthcareLymphocytes/100 WBC (Bld)42.5 %20.5 - 60.0 %NOMS [facility] HospitalMCH (RBC) [Entitic mass]30.6 pg26.7 - 34.0 pgNOSaint Luke's North Hospital–Barry RoadMCHC (RBC) [Mass/Vol]34.3 g/dL29.9 - 35.2 g/dLNOSaint Luke's North Hospital–Barry RoadMCV (RBC) [Entitic vol]89.2 fL81.0 - 99.0 fLNODE HealthcareMONOCYTES ABSOLUTE AUTO0.5NOMS HealthcareMonocytes/100 WBC (Bld)11 %1.7 - 12.0 %NOMS HealthcareNEUTROPHILS ABSOLUTE AUTO2.1NOMS HealthcareNeutrophils/100 WBC (Bld) 43.6 %43.0 - 75.0 %NOMS HealthcarePlatelet mean volume (Bld) [Entitic vol]9.4 fL Low9.5 - 13.5 fLNOMS HealthcareTB EO #0.1NOMS HealthcareTBH NGU876XBYS HealthcareTBH RBC4.71NOMS HealthcareTB WBC4.7NOMS HealthcareCLINISYNCNOMS HealthcareC Urineon 77-67-1452Cifxvzch identified Cx Nom (U)Microbiology PROCEDURE: Urine Culture [...] Locations R1: This test was performed at: [facility], [address] [place] [address], [address] [place] [address], AzlqooSwoqsdSelect Medical OhioHealth Rehabilitation HospitalComment on above:Performed By: #### [id number] #### [facility] [address] [place] [address]LY RENAL BIon 01-82-9413[place], [place] [address] Ultrasound Report Signed Patient: FAHEEM BABB MR#: [id number] : 1995 Acct:[id number] Age/Sex: 29 / F ADM Date: 03/21/24 Loc: US Attending Dr: Bonita Pinedo [facility] Ordering Physician: Bonita Pinedo NP Date of Service: 03/21/24 Procedure(s): US renal BI Accession Number(s): [id number] cc: SRI RAMÍREZ ; Bonita Pinedo NP [address] [address] Patient Name: FAHEEM BABB MRN: [id number] date: 1995 Sex: F Assigned Patient Location: Current Patient Location: Accession/Order Number: [id number] Exam Date: 03/21/2024 12:58 Report Date: 03/22/2024 06:57 At the request of: BONITA PINEDO Procedure: US renal BI EXAMINATION: US renal [...] 1. Bilateral nonobstructing nephrolithiasis. Electronically authenticated by: FERMIN JIMENEZ Date: 03/22/2024 06:57 Dictated By: Fermin Jimenez M.D. Signed By: 03/22/2459 DD/ TD/TT: Commercial Lines Manager:TBHRadiology, Radiologist, - 03/22/2024 [place] [address] Ultrasound Report Signed Patient: FAHEEM BABB MR#: [id number] : 1995 Acct:[id number] Age/Sex: 29 / F ADM Date: 03/21/24 Loc: US Attending Dr: Bonita Pinedo NP Ordering Physician: Bonita Pinedo NP Date of Service: 03/21/24 Procedure(s): US renal BI Accession Number(s): [id number] cc: SRI RAMÍREZ ; Bonita Pinedo NP The [address] [address] Patient Name: FAHEEM BABB MRN: [id number] date: 1995 Sex: F Assigned Patient Location: US Current Patient Location: Accession/Order Number: [id number] Exam Date: 03/21/2024 12:58 Report Date: 03/22/2024 06:57 At the request of: BONITA PINEDO Procedure: US renal BI EXAMINATION: US renal [...] 1. Bilateral nonobstructing nephrolithiasis. Electronically authenticated by: FERMIN JIMENEZ Date: 03/22/2024 06:57 Dictated By: Fermin Jimenez M.D. Signed By: 03/22/2459 DD/ 6 TD/TT: Commercial Lines Manager: PABLITO [facility] HospitalRadiology Study observation (narrative)[facility] HospitalUS RENAL BI Ordered By: Radiologist Radiology on 65-11-1295EEFB [employer] Work Phone: XR ABDOMEN 1Von 76-91-6127Z[address] [address] XRay Report Signed Patient: FAHEEM BABB MR#: [id number] : 1995 Acct:[id number] Age/Sex: 29 / F ADM Date: 03/21/24 Loc: US Attending Dr: Bonita Pinedo [facility] Ordering Physician: Bonita Pinedo NP Date of Service: 03/21/24 Procedure(s): XR abdomen 1V Accession Number(s): [id number] cc: SRI RAMÍREZ ; Bonita Pinedo NP [address] [address] Patient Name: FAHEEM BABB MRN: [id number] date: 1995 Sex: F Assigned Patient Location: US Current Patient Location: US Accession/Order Number: [id number] Exam Date: 03/21/2024 13:38 Report Date: 03/22/2024 11:48 At the request of: BONITA PINEDO Procedure: XR abdomen 1V EXAMINATION: XR abdomen [...] stones within the kidneys. Electronically authenticated by: FERMIN JIMENEZ Date: 03/22/2024 11:48 Dictated By: Fermin Jimenez M.D. Signed By: 03/22/24 1151 DD/ 1148 TD/TT: Commercial Lines Manager:TBHRadiology, Radiologist, MD - 03/22/2024 [place] [address] XRay Report Signed Patient: FAHEEM BABB MR#: [id number] : 1995 Acct:[id number] Age/Sex: 29 / F ADM Date: 03/21/24 Loc: US Attending Dr: Bonita Pinedo NP Ordering Physician: Bonita Pinedo NP Date of Service: 03/21/24 Procedure(s): XR abdomen 1V Accession Number(s): [id number] cc: SRI RAMÍREZ ; Bonita Pinedo NP The [place] [id number] Patient Name: FAHEEM BABB MRN: [id number] date: 1995 Sex: F Assigned Patient Location: US Current Patient Location: US Accession/Order Number: [id number] Exam Date: 03/21/2024 13:38 Report Date: 03/22/2024 11:48 At the request of: BONITA ORZECH Procedure: XR abdomen 1V EXAMINATION: XR abdomen [...] stones within the kidneys. Electronically authenticated by: FERMIN JIMENEZ Date: 03/22/2024 11:48 Dictated By: Fermin Jimenez M.D. Signed By: 03/22/24 115 DD/ 1148 TD/TT: Commercial Lines Manager: [facility] HospitalRadiology Study observation (narrative)[facility] HospitalXR ABDOMEN 1VOrdered By: Radiologist Radiology on 94-26-5450NEZXPike County Memorial Hospital Work Phone: Urinalysis macro (dipstick) panel (U)on 02-15-2024 Bilirubin, UANegativeNegative - 4(70) +++ mg/dLNOMS HealthcareBlood, UANegative Negative - 50 Allen/mcLNODE HealthcareClarity, UAClearNODE HealthcareColor, UA YellowNOMS HealthcareGlucose, UANegativeNegative - 2000(110) ++++ mg/dLNODE HealthcareInterpretation and review of laboratory resultsNormalNOSaint Luke's North Hospital–Barry Road Ketones, UANegativeNegative - 160(16) ++++ mg/dLNODE HealthcareLeukocytes, UA NegativeNegative - 500+++ Andrei/mcLNODE HealthcareNitrite, UANegativeNegative - PositiveNOMS HealthcarepH, UA75 - 9NOMS HealthcareProtein, UANegativeNegative - 2000(20) ++++ mg/dLNODE HealthcareSpec Grav, UA1.011 - 1.03NOMS Healthcare Urobilinogen, UA0.20.2 - 12 mg/dLNODE HealthcareNOMS HealthcareUS PELVISon 89-77-2366[place], [place] [address] Ultrasound Report Signed Patient: FAHEEM BABB MR#: [id number] : 1995 Acct:[id number] Age/Sex: 28 / F ADM Date: 02/03/24 Loc: NOMS Attending Dr: Jose Pan D.O. Ordering Physician: Jose Pan D.O. Date of Service: 02/03/24 Procedure(s): US pelvis Accession Number(s): [id number] cc: SRI RAMÍREZ ; Jose Pan D.O. The [place] [address] Patient Name: FAHEEM BABB MRN: [id number] date: 1995 Sex: F Assigned Patient Location: NOMS Current Patient Location: LAB Accession/Order Number: [id number] Exam Date: 02/03/2024 10:36 Report Date: 02/03/2024 11:31 At the request of: JOSE PAN Procedure: US pelvis EXAMINATION: US pelvis [...] 1. Normal pelvic ultrasound. Electronically authenticated by: FERMIN JIMENEZ Date: 02/03/2024 11:31 Dictated By: Fermin Jimenez M.D. Signed By: 02/03/24 1133 DD/ 1131 TD/TT: Commercial Lines Manager:CHRISadiology, Radiologist, - 02/03/2024 [place] [address] Ultrasound Report Signed Patient: FAHEEM BABB MR#: [id number] : 1995 Acct:[id number] Age/Sex: 28 / F ADM Date: 02/03/24 Loc: NOMS Attending Dr: Jose Pan D.O. Ordering Physician: Jose Pan D.O. Date of Service: 02/03/24 Procedure(s): US pelvis Accession Number(s): [id number] cc: SRI RAMÍREZ ; Jose Pan D.O. The [address] [address] Patient Name: FAHEEM BABB MRN: [id number] date: 1995 Sex: F Assigned Patient Location: [facility] Current Patient Location: LAB Accession/Order Number: [id number] Exam Date: 02/03/2024 10:36 Report Date: 02/03/2024 11:31 At the request of: JOSE PAN Procedure: US pelvis EXAMINATION: US pelvis [...] 1. Normal pelvic ultrasound. Electronically authenticated by: FERMIN JIMENEZ Date: 02/03/2024 11:31 Dictated By: Fermin Jimenez M.D. Signed By: 02/03/241132 DD/ 30 TD/TT: Commercial Lines Manager: PABLITO HealthcareRadiology Study observation (narrative)NOMS HealthcareUS PELVIS Ordered By: Radiologist Radiology on 70-31-5730BJHM Healthcare Work Phone: IGP,APTIMA HPV,AGE GDLNon 25-36-7336AZP GDLN ACOG TESTINGNote.[facility] HealthcareComment on above:TESTS RESULT FLAG UNITS REF RANGE LAB Clinician Provided Cytology Information Source.............Cervix;Endocervix No. of containers..01 ThinPrep Vial Age Algo ACOG Dione... -11 05 FLAG LEGEND: L-Low Normal,H-High Normal,LL-Alert Low,HH-Alert High <-Panic Low,>-Panic High,A-Abnormal,AA-Critical Abnormal Performed at: 01 =G Makayla Thomas[address] [address] Cristiane Eduardo MD, IGP, RFX APTIMA HPV ASCUNote.[facility] HealthcareComment on above:TESTS RESULT FLAG UNITS REF RANGE LAB DIAGNOSIS: 02 NEGATIVE FOR INTRAEPITHELIAL LESION OR MALIGNANCY. Specimen adequacy: 02 Satisfactory for evaluation. Endocervical and/or squamous metaplastic cells (endocervical component) are present. Performed by: Jemma Sin Manager Utility ([facility]) . 02 Note: Note 03 The Pap [...] at: 02 [facility] Cy[address] [place] [address] Mayur Coleman MD, 03 WB [facility] [address] [address] Cristiane Eduardo MD, Performed at: = - [facility] [address] [id number] Funeral Counselor: Cristiane Eduardo MD, Phone: [phone] Performed at: [facility] - [facility] [address] [address] [place], [place] [id number] Funeral Counselor: Mayur Coleman MD, Phone: [phone] BRUSH-SPATULA CERVIX ENDOCERVIX CLINISYNCNODE HealthcareCytology Cervical or vaginal smear or scraping studyon 51-16-2609RYIO HealthcareNo Panel Informationon 71-32-6985UHSVJADXDGKEWE EPIDERMIDIS, HAEMOLYTICUS, LUGDUNENSIS, SAPROPHYTICUS (URINA0.000NOMS Healthcare STAPHYLOCOCCUS EPIDERMIDIS, HAEMOLYTICUS, LUGDUNENSIS, SAPROPHYTICUS (URINANot detectedNOMS HealthcareURINARY TRACT INFECTION (HTRX)on 97-09-7266CXNKGOHOVOELN BAUMANII0.000NOMS HealthcareACINETOBACTER BAUMANIINot detectedNOMS Healthcare REAL ALBICANS, [...] A STREP)0.000NOMS HealthcareSTREPTOCOCCUS PYOGENES (GROUP A STREP)Not detectedNODE HealthcareNOMS HealthcareHCG ( test) Ql (U)on 01-11-2024 Interpretation and review of laboratory resultsNormalNODE HealthcarePreg Test, UrNegativeNODE HealthcareNODE HealthcareUrinalysis macro (dipstick) panel (U)on 65-04-1124Ftlpjuzzr, UANegativeNegative - 4(70) +++ mg/dLNOMS HealthcareBlood, UAPositiveNegative - 50 Allen/mcLNODE HealthcareClarity, UAClearNOMS Healthcare Color, UAYellowNOMS HealthcareGlucose, UANegativeNegative - 2000(110) ++++ mg/dL NOMS HealthcareInterpretation and review of laboratory resultsAbnormalNODE HealthcareKetones, UAPositiveNegative - 160(16) ++++ mg/dLNODE Healthcare Leukocytes, UANegativeNegative - 500+++ Andrei/mcLRIVERTON HOSPITAL HealthcareNitrite, UA NegativeNegative - PositiveNODE HealthcarepH, UA6.55 - 9NOMS HealthcareProtein, UANegativeNegative - 2000(20) ++++ mg/dLRIVERTON HOSPITAL HealthcareSpec Grav, UA1.0151 - 1.03NOMS HealthcareUrobilinogen, UA1.00.2 - 12 mg/dLNODE HealthcareNOMS HealthcareCult,Urineon 59-27-0391Jfbf,UrineSpecimen Description .URINE Unknown Culture NO SIGNIFICANT GROWTH Report Status FINAL 09/23/2023NoParkview Health Bryan HospitalComment on above:Performed By: #### URC #### [address] [address] Funeral Counselor: Moisés Carl MD [address] [address] Funeral Counselor: Wan Morales MDINTEGRIS COMM[facility] [place], ,Urineon 29-60-9673Vvtn HCG ( test) Ql (U)NegativeNoMartins Ferry HospitalComment on above:Result Comment: Specimens with hCG levels near the threshold of the test (25 mIU/mL) may give a negative or indeterminate result. In such cases, another test should be performed with a new specimen in 48-72 hours. If early is suspected clinically in this setting, correlation with quantitative serum b-hCG level is suggested.Performed By: #### UAX, UHCG, UMICAO #### [place] [id number] Funeral Counselor: JUAN C Werner w/Reflex Cultureon 45-79-0730Inxgtqzqt, SemiQt,UrNegativeAbnormalNEGMercy West Valley Hospital And Health CenterComment on above: Performed By: #### UAX, UHCG, UMICAO #### [place] [address] Funeral Counselor: Brynn Werner, UrineLARGEAbnormalNEGMerNatividad Medical CenterComment on above:Performed By: #### UAX, UHCG, UMICAO #### [place] [address] Funeral Counselor: MICKEY Wernerlarity (U)SLIGHTLY CLOUDYAbnormalCLEARMercy West Valley Hospital And Health CenterComment on above:Performed By: #### UAGail, UHCG, UMICAO #### [place] [address] Funeral Counselor: MICKEY Wernerolor (U)RedAbnormalYELMerNatividad Medical CenterComment on above:Performed By: #### UAX, UHCG, UMICAO #### [address] [id number] Funeral Counselor: Iman WernerINTERPRET WITH CAUTION DUE TO INTENSE COLOR OF URINE.NormalMercy West Valley Hospital And Health CenterComment on above:Performed By: #### UAX, UHCG, UMICAO #### [place] [address] Funeral Counselor: Wan Morales MDGlucose Ql (U)NegativeNormalNEGMercy West Valley Hospital And Health CenterComment on above:Performed By: #### UAX, UHCG, UMICAO #### [place] [address] Funeral Counselor: Wan Morales MDKetones Ql (U)NegativeNormalNEGMercy West Valley Hospital And Health CenterComment on above:Performed By: #### UAX, UHCG, UMICAO #### [place] [address] Funeral Counselor: Wan Morales MDLeukocyte esterase Test strip Ql (U)MODERATE AbnormalNEGMercy West Valley Hospital And Health CenterComment on above:Performed By: #### UAX, AMBROSECG, UMICAO #### [place] [address] Funeral Counselor: Tian Wernertrite,UrPositiveAbnormalNEGMerNatividad Medical CenterComment on above:Performed By: #### UAX, UHCG, UMICAO #### [place] [address] Funeral Counselor: SONNY Werner,Ur7.1Wtazns8.0-8.0Mer[facility] Hospital And Health CenterComment on above:Performed By: #### UAX, UHCG, UMICAO #### [place] [id number] Funeral Counselor: Rene Werner Ql (U)3+ mg/dLAbnormalNEGMercy Memorial Hospitalcy West Valley Hospital And Health CenterComment on above:Performed By: #### UAX, UHCG, UMICAO #### [place] [address] Funeral Counselor: LINH Wernerpec. [place],Ur1.014Tvypti8.005-1.030Sum[facility] Health Akron CampusComment on above:Performed By: #### UAX, UHCG, UMICAO #### [place] [address] Funeral Counselor: Wan Morales MDUrobilinogen,UrNormalNormal0.0-1.0Sum[facility] Health Akron CampusComment on above:Performed By: #### UAGail, AMBROSECG, UMICAO #### [place] [address] Funeral Counselor: Wan Morales MDUrinalysis,Microon 92-04-2650BdaxveepSHFJCXJA AbnormalNONEMeWest Hills HospitalComment on above:Performed By: #### JEROME, AMBROSECG, UMICAO #### [place] [address] Funeral Counselor: Wan Morales MDEpithelial cells LM Ql (Urine sed)5 TO 10Normal 0-5Sum[facility] Health Akron CampusComment on above:Performed By: #### UAX, UHCG, UMICAO #### [place] [address] Funeral Counselor: Wan Morales MDOther ObservationsCulture ordered based on defined criteria.AbnormalNREQSumma Health Akron CampusComment on above: Performed By: #### UAX, UHCG, UMICAO #### [address], [place] [address] Funeral Counselor: Brennan Werner RBC'sTOO NUMEROUS TO COUNTNormal0-2[facility] And Health CenterComment on above:Performed By: #### UAX, UHCG, UMICAO #### [address] [id number] Funeral Counselor: Brennan Werner WBC'sTOO NUMEROUS TO COUNTNormal0-5MerNatividad Medical CenterComment on above:Performed By: #### UAX, CG, UMICAO #### [address] [address] Funeral Counselor: Wan Morales MDUS RENAL COMPLETEon 79-40-7305MZ RENAL COMPLETE EXAMINATION: RETROPERITONEAL ULTRASOUND OF THE [...] Signed by: Sri Galeas MD 06/20/21 Final resultNoSelect Medical Specialty [facility]on1. Nonobstructing left renal stones measuring up to 5 mm. 2. No hydronephrosis. [facility] RIS CONSOLIDATEDEXAMINATION: RETROPERITONEAL ULTRASOUND OF THE KIDNEYS AND [...] the bladder. No significant post void residual. [facility] Sri Bryson MD - 06/20/2021 EXAMINATION: RETROPERITONEAL ULTRASOUND OF [...] up to 5 mm. 2. No hydronephrosis. [employer] Phone: us RENAL COMPLETEOrdered By: Sri Galeas on 35-50-9923SgygxPrem[employer] Phone: us RENAL COMPLETEon 05-02-5995Xiaisnqfg Study observation (narrative)[employer] Phone: xr ABDOMEN (KUB) (SINGLE AP VIEW)on [phone] ABDOMEN (KUB) (SINGLE AP VIEW)EXAMINATION: ONE SUPINE [...] Herrera Signed by: See Herrera 06/19/21 Final resultNormalMercy Greenwich Hospital definite evidence of renal or ureteral stones. [facility] CONSOLIDATEDEXAMINATION: ONE SUPINE XRAY VIEW(S) OF THE [...] urine collecting system. Osseous structures are normal. PN See Cage P - 06/19/2021 EXAMINATION: ONE SUPINE XRAY VIEW(S) [...] definite evidence of renal or ureteral stones. [employer] Phone: radiology Study observation (narrative)[employer] Phone: XR ABDOMEN (KUB) (SINGLE AP VIEW)Ordered By: See Hererra on 05-58-4423WkkfbPremier Grocery Phone: Cult,Urineon 87-99-8637Pntp,UrineSpecimen Description .VOIDED URINE Culture NO SIGNIFICANT GROWTH Report Status FINAL 06/14/2021NormalKing'S Daughters Medical Center OhioComment on above: Performed By: #### URC #### [facility] [employer] [address] [place], [place] [id number] Funeral Counselor: Moisés Carl MD [facility] [address] [place] [address] [place] [address] Funeral Counselor: Filemon Gutiérrez MDUrinalysis w/ Microon 06-12-2021-----[facility]rus Community HospitalComment on above:Performed By: #### UAMIC #### [address] [place] [address] Funeral Counselor: Filemon Gutiérrez MDEpithelial cells LM Ql (Urine sed)2 TO 5Gmmceu0-49 [facility] OhioComment on above:Performed By: #### UAMIC #### [facility] [address] [place], [place] [id number] Funeral Counselor: Brennan Kay RBC's0 TO 3Mgsvxx2-8IpeqsLicking Memorial Hospital Comment on above:Performed By: #### UAMIC #### [facility] [address] [place], [place] [address] Funeral Counselor: Brennan Kay WBC's0 TO 3Jmodhd6-7CmhwpKing'S Daughters Medical Center Ohio Comment on above:Performed By: #### UAMIC #### [facility] [address] [place], [place] [address] Funeral Counselor: Josie Kayirubin, SemiQt,UrNegativeNormalNEGKing'S Daughters Medical Center OhioComment on above:Performed By: #### UAMIC #### [facility] [address] [place] [address] Dr. [place], [place] [address] Funeral Counselor: Brynn Kay, UrineNegativeNormalNEGKing'S Daughters Medical Center Ohio Comment on above:Performed By: #### UAMIC #### [facility] [address] [place] [address] Dr. [place], [place] [address] Funeral Counselor: MICKEY Kaylarity (U)ClearNormalCLEARKing'S Daughters Medical Center Ohio Comment on above:Performed By: #### UAMIC #### [facility] [address] [place], [place] [address] Funeral Counselor: MICKEY Kayolor (U)YellowNormalYUpper Valley Medical Center Comment on above:Performed By: #### UAMIC #### [facility] [address] [place] [address] Funeral Counselor: Deanna Kay Ql (U)NegativeNormalNEGKing'S Daughters Medical Center OhioComment on above:Performed By: #### UAMIC #### [facility] [address] [place] [address] Funeral Counselor: Filemon Gutiérrez MDKetones Ql (U)NegativeNormalNEGMercy Saint Charles HospitalComment on above:Performed By: #### UAMIC #### [address] [place], [place] [address] Funeral Counselor: Filemon Gutiérrez MDLeukocyte esterase Test strip Ql (U)NegativeNormal NEGMercy Saint Charles HospitalComment on above:Performed By: #### UAMIC #### [address] [place] [address] Funeral Counselor: Tian Kaytrgrace,UrNegativeNormalNEGKing'S Daughters Medical Center [place] Comment on above:Performed By: #### UAMIC #### [address] [place], [place] [address] Funeral Counselor: SONNY Kay,Ur7.8Brorfa6.0-9.0Mercy Danbury HospitalComment on above:Performed By: #### UAMIC #### [address] [place] [address] Funeral Counselor: Rene Kay Ql (U)NegativeNormalNEGMercy Saint Charles HospitalComment on above:Performed By: #### UAMIC #### [facility] [address] [place] [address] [place] [address] Funeral Counselor: Jared Kay. [place],Ur1.807Omxbhx8.010-1.020Mercy Saint Charles HospitalComment on above:Performed By: #### UAMIC #### [facility] [address] [place] [address] Dr. [place], [place] [address] Funeral Counselor: Angelica Kaybilinogen,UrNormalNormalNORMMercy Saint Charles HospitalComment on above:Performed By: #### UAMIC #### [facility] [address] [id number] Funeral Counselor: Filemon Gutiérrez MDUrinalysis with Microscopicon 06-12-2021-Mercy HealthBilirubin UrineNegativeNEGATIVEMercy HealthColor, UAYellowYellowMercy HealthEpithelial Cells UA2 TO 5Mercy HealthGlucose, UrNegativeNEGATIVEMercy HealthKetones Ql (U)NegativeNEGATIVEMercy HealthLeukocyte esterase Test strip Ql (U)NegativeNEGATIVEMercy HealthNitrite, UrineNegativeNEGATIVEMercy HealthpH, UA 7.0Mercy HealthProtein, UANegativeNEGATIVEMercy HealthRBC, UA0 TO 2[facility] Specific [place], UA1.010Mercy HealthTurbidity UAClearClearMercy HealthUrine Hgb NegativeNEGATIVEMercy HealthUrobilinogen, UrineNormalNormalMercy HealthWBC, UA0 TO 2Mercy HealthMercy HealthPAP ACOG PANEL 2: 21 to 29on 05-25-2021..NormalBarney Children'S Medical CenterComment on above:Performed By: #### [id number] #### [facility] [address] [place] [address] Dr. Jolene Cornejo Gdln ACOG Ufrpkei90-75SpocudHucSycamore Medical CenterComharbor beach community hospital on above:Performed By: #### [id number] #### [facility] [address] [place] [address] Dr. Jolene StreetDIAGNOSIS:CommentKettering Health Preble on above: Result Comment: NEGATIVE FOR INTRAEPITHELIAL LESION OR MALIGNANCY.Performed By: #### [id number] #### [facility] [address] [place] [address] [address] Jolene StreetMethodology:CommentNoOhio State Harding Hospital on above: Result Comment: This liquid based ThinPrep(R) pap test was screened with the use of an image guided system.Performed By: #### [id number] #### [facility] [address] [place] [address] Dr. Jolene StreetNote:CommentKettering Health Preble on above:Result Comment: The Pap smear is a screening test designed to aid in the detection of premalignant and malignant conditions of the uterine cervix. It is not a diagnostic procedure and should not be used as the sole means of detecting cervical cancer. Both false-positive and false-negative reports do occur. .Performed By: #### [id number] #### [facility] [address] [place] [address] Dr. Jolene StreetPerformed by:[facility] on above: Result Comment: Grisel Negron, Manager Utility (ASCP)Performed By: #### [id number] #### [facility] [address] [place] [address] Dr. Jolene StreetReflex Criteria:CommentKettering Health Preble on above:Result Comment: The HPV DNA reflex criteria were not met with this specimen result therefore, no HPV testing was performed. .Performed By: #### [id number] #### [place] [address] [address] Jolene StreetSpecimen adequacy:[facility] on above:Result Comment: Satisfactory for evaluation. Endocervical and/or squamous metaplastic cells (endocervical component) are present.Performed By: #### [id number] #### [facility] [address] [place] [address] Vital Signs Date TimeVital SignValuePerforming UxhymetdkJimifesy51-21-6562 10:23040Body mass index (BMI) [Ratio]27.53 kg/v7Axiwk [employer] DO Work Phone: [facility] HospitalTxtuhvfybd09-82-7347 10:Body zkwkaw27.74 kgCorey Maxim DO Work Phone: [phone] HospitalDukpuszdcl81-28-0163 10:23Diastolic blood ybazkorf38 mm[Hg]JosePolicyGenius DO Work Phone: [facility] HospitalTqtvvpvuaf68-38-3712 10:23Systolic blood ocxavdwt403 mm[Hg]Jose [employer] Work Phone: [facility] HospitalXrpbquzxpl20-21-8981 10:15-0400Body mass index (BMI) [Ratio]27 kg/z0Mzgio Maxim DO Work Phone: [phone] [place], [place] [address]Utkavfpkbg10-36-7470 10:15-0400Body ipukzg15.2 kg Jose Maxim DO Work Phone: [phone] [place], [place] [address]Iklpvsctvn41-08-1731 10:15-0400Diastolic blood mm[Hg]Jose Maxim DO Work Phone: [phone] [place], [place] [address]Rkgmtlgedr40-89-4725 10:15-0400Systolic blood vogpsvhm737 mm[Hg]Jose Maxim DO Work Phone: [phone] [place], [place] [address]Wmlepcwein66-52-9098 10:17-0400Body mass index (BMI) [Ratio]26.63 kg/q9MpznadbwJake Gunter [facility] Work Phone: [phone] [place], [place] [address]Hcdyxxudmb82-12-9600 10:17-0400Body .11 kgJake Gunter [facility] Work Phone: [phone] [place], [place] [address]Lmdxlxniey80-09-3467 10:17-0400Diastolic blood rkvpimpg32 mm[Hg]Jake Gunter [facility] Work Phone: [phone] [place], [place] [address]Amhclyruww17-90-3767 10:17-0400Systolic blood zlvmdtek925 mm[Hg]Jake Gunter [facility] Work Phone: [phone] [place], [place] [address]Lzztzugvnb84-79-3085 15:40-0400Body mass index (BMI) [Ratio]26.31 kg/m2Daja CUELLAR Work Phone: [phone] [place], [place] [address]Qzsfuldbfw22-81-7058 15:40-0400Body iphjur55.2 kg Daja CUELLAR Work Phone: [phone] [place], [place] [address]Mnygggpoep77-76-8590 15:40-0400Diastolic blood jrogchse83 mm[Hg]Daja CUELLAR Work Phone: [phone] [place], [place] [address]Pyesxdahcs53-81-7569 15:40-0400Systolic blood dtdnqrko439 mm[Hg]Daja CUELLAR Work Phone: [phone] [place], [place] [address]Uoasjhvgna38-19-8578 14:09-0400Body mass index (BMI) [Ratio]25.22 kg/u7Hgjcd Maxim DO Work Phone: [phone] [place], [place] [address]Rqosfwtexr20-87-3092 14:09-0400Body .03 kgCorey Maxim DO Work Phone: [phone] [place], [place] [address]Ajllpapavc70-88-2212 14:09-0400Diastolic blood eptjgcgy46 mm[Hg]Jose Maxim DO Work Phone: 1(419)[facility] [place], [place] [address]Gjdkfkifpq11-49-1419 14:09-0400Systolic blood dbuzoqyv038 mm[Hg]Jose Maxim DO Work Phone: [phone] [place], [place] 7053107-28-2025 14:11-0400Body mass index (BMI) [Ratio]24.59 kg/z5Iroct Maxim DO Work Phone: 1(647)[facility] [place], [place] [address]Imwgknkdex13-22-2432 14:11-0400Body xsrcot30.22 kgCorey Maxim DO Work Phone: [phone] [place], [place] 7053107-28-2025 14:11-0400Diastolic blood ozprwntn65 mm[Hg]Jose Maxim DO Work Phone: [phone])[address] [place], [place] 7053107-28-2025 14:11-0400Systolic blood nnyaeyay819 mm[Hg]Jose Maxim DO Work Phone: [phone])[address] [place], [place] 7053106-30-2025 14:44-0400Body mass index (BMI) [Ratio]24 kg/j2Tredm Maxim DO Work Phone: 1(590)[address] [place], [place] 7053106-30-2025 14:44-0400Body .51 kgCorey Maxim DO Work Phone: 1(419)[facility] [place], [place] [address]Edzqwolnwl94-41-4748 14:44-0400Diastolic blood isohiiah94 mm[Hg]Jose Maxim DO Work Phone: 1(419)[facility] [place], [place] [address]Yjbctdywcx55-50-9245 14:44-0400Systolic blood istporwn665 mm[Hg]Jose Maxim DO Work Phone: [phone] [place], [place] 7053106-18-2025 15:30-0400Body mass index (BMI) [Ratio]23.34 kg/m2Daja Umanajuve CUELLAR Work Phone: [facility] HospitalRvowfoxrxl34-92-5575 15:30-0400Body .59 kgDaja Ryan ALISA Work Phone: [facility] HospitalAkilciqvzr53-86-2575 15:30-0400Diastolic blood hclznbii74 mm[Hg]Daja Ryan PA Work Phone: [facility] HospitalJozwkatesf07-12-6641 15:30-0400Systolic blood trqcplmo117 mm[Hg]Daja Ryan PA Work Phone: [facility] HospitalNupaznpgpd96-76-1410 14:04-0400Body mass index (BMI) [Ratio]22.99 kg/k1Mwxpc Maxim DO Work Phone: [facility] HospitalUtqzqxdmdj68-69-4144 14:04-0400Body xwifxm50.59 kgCorey Maxim DO Work Phone: [facility] HospitalJrsrveibto63-15-2713 14:04-0400Diastolic blood koqlwmvj49 mm[Hg]Jose Maxim DO Work Phone: [facility] HospitalNctlnrsbwf58-40-7729 14:04-0400Systolic blood fwaeezqo725 mm[Hg]Jose Maxim DO Work Phone: [facility] HospitalNuqbxzgcds03-89-2397 13:39-0400Body mass index (BMI) [Ratio]22.87 kg/m2[facility]05-08-2025 13:39-0400Body ohpyyw17.22 kgNoCoxHealth05-08-2025 13:39-0400Diastolic blood aoxnogxp96 mm[Hg][facility]05-08-2025 13:39-0400Systolic blood dozuusjf388 mm[Hg][facility]04-07-2025 08:15-0400Body pbalsv488.2 cmSri Ramírez MD Work Phone: [facility] HospitalAxpgihgrmm96-01-3074 08:15-0400Body mass index (BMI) [Ratio]23.05 kg/m2Sri Ramírez MD Work Phone: [facility] HospitalCpbpddnepz72-75-9774 08:15-0400Body urzpsn13.77 kgSri Ramírez MD Work Phone: [facility] HospitalShfkzrfsws44-71-6178 08:15-0400Diastolic blood hcmzyxbd30 mm[Hg]Sri Ramírez MD Work Phone: [facility] HospitalZybrhrhptb65-24-1959 08:15-0400Heart rate92 /min Sri Ramírez MD Work Phone: [facility] HospitalMvvoqxiipg71-85-6028 08:15-0400Respiratory rate18 /minSri Ramírez MD Work Phone: [facility] HospitalGalehledde45-97-5284 08:15-4355YyV0% (BldA) [Mass fraction]99 %Sri Ramírez MD Work Phone: [facility] HospitalPbganmblpg59-15-7894 08:15-0400Systolic blood jayozmxs991 mm[Hg]Sri Ramírez MD Work Phone: [facility] HospitalAgdsaopvia56-13-3368 08:03-0500Body mass index (BMI) [Ratio]22.96 kg/e8Qoevhx Majors [facility] Work Phone: [facility] HospitalWqbrwbkpps33-62-7522 08:03-0500Body [degF]Reggie Farfans [facility] Work Phone: [facility] HospitalRuwhghjjll10-88-9700 08:03-0500Body loyjyb28.5 kg Reggie Majors [facility] Work Phone: [facility] HospitalLjlbotiuvn31-38-3537 08:03-0500Diastolic blood bafmduou42 mm[Hg]Reggie Majors [facility] Work Phone: [facility] HospitalIrownihcym72-68-8725 08:03-0500Heart rate96 /min Reggie Majors [facility] Work Phone: [facility] HospitalEppmuejgdd01-64-5906 08:03-6488SaY4% (BldA) [Mass fraction]98 %Reggie Majors [facility] Work Phone: [address] [place], [place] [address]Wxplrarqvm18-11-7093 08:03-0500Systolic blood mm[Hg]Reggie Donovan NP Work Phone: [facility] HospitalWgjgwreicu29-27-7752 09:03-0500Body mass index (BMI) [Ratio]22.57 kg/m2Daja CUELLAR Work Phone: [facility] HospitalNiwxmwyrea98-52-3462 09:03-0500Body .37 kgDaja CUELLAR Work Phone: [facility] HospitalBzoxxmzoid55-90-5078 09:03-0500Diastolic blood dmiwwgsb79 mm[Hg]Daja CUELLAR Work Phone: [phone] [place], [place] [address]Tmtrfrtuhj01-42-8390 09:03-0500Systolic blood wylutrcz775 mm[Hg]Daja CUELLAR Work Phone: [facility] HospitalBepnazspmi88-56-4990 14:37-0500Body mass index (BMI) [Ratio]22.57 kg/a0Uodrf Maxim DO Work Phone: [facility] HospitalYjoaictucs97-40-2746 14:37-0500Body qlofwm64.37 kgCorey Maxim DO Work Phone: [phone] [place], [place] [address]Kutdquebzg40-00-1657 14:37-0500Diastolic blood qoowcdih63 mm[Hg]Jose Maxim DO Work Phone: [facility] HospitalJcxtcrljlr47-01-7300 14:37-0500Systolic blood fxtfiolk792 mm[Hg]Jose Maxim DO Work Phone: [facility] HospitalUnlncywgko30-27-4347 11:20-0500Body mass index (BMI) [Ratio]22.55 kg/l5Yvyvg Maxim DO Work Phone: [phone] [place], [place] [address]Vikmhpqwzc61-49-2498 11:20-0500Body jdzfje34.32 kgCorey Maxim DO Work Phone: [phone])789-[address] [place], [place] [address]Umcvekwlvw11-92-9871 11:20-0500Diastolic blood fitwlmjm27 mm[Hg]Jose Maxim DO Work Phone: 1(860)802-[address] [place], [place] [address]Ewqvoxisre02-08-3821 11:20-0500Systolic blood sqzowxjd740 mm[Hg]Jose Maxim DO Work Phone: [place] [address]Jybhgldorp06-34-9094 10:47-0500Blood Pressure LocationAurora Orzech [facility]11-19-2024 10:47-0500Diastolic blood bfhaquwa15 mm[Hg]Bonita Orzech [facility]11-19-2024 10:47-0500Heart rate79 /minAurora Orzech [facility]11-19-2024 10:47-0500Respiratory rate19 /minAurora Orzech [facility]11-19-2024 10:47-0500Systolic blood bovvroyd076 mm[Hg]Bonita Orzech [facility]11-04-2024 11:11-0500Body mass index (BMI) [Ratio]22.4 kg/r4Ydkwg Maxim DO Work Phone: [facility] HospitalEexoqccjzr48-84-7076 11:11-0500Body iaxpbo71.86 kgCorey Maxim DO Work Phone: [place] [address]Umlnkopljo43-78-7400 11:11-0500Diastolic blood iwhtspip82 mm[Hg]Jose Maxim DO Work Phone: [facility] HospitalDgnxndndjs26-72-2381 11:11-0500Systolic blood lrpcpsex099 mm[Hg]Jose Maxim DO Work Phone: [facility] HospitalNikapadaca76-17-4260 14:13-0400Body mass index (BMI) [Ratio]22.08 kg/m2Daja CUELLAR Work Phone: [place] [address]Vcikjzsaeh99-05-6547 14:13-0400Body .96 kgDaja CUELLAR Work Phone: [facility] HospitalOnjnrobxzg50-27-3481 14:13-0400Diastolic blood svqllzaj05 mm[Hg]Daja CUELLAR Work Phone: NOSaint [facility] RoadIulnuudxcy70-72-2302 14:13-0400Systolic blood zvuxaxlo691 mm[Hg]Daja CUELLAR Work Phone: [facility] HospitalFowmkzsgdn72-39-0618 11:52-0400Body mass index (BMI) [Ratio]22.42 kg/q1Jnqbn Maxim DO Work Phone: [facility] HospitalXtkizzcqin38-24-4140 11:52-0400Body ogjunv75.92 kgCorey Maxim DO Work Phone: [facility] HospitalWhhwxdwtcb92-93-3113 11:52-0400Diastolic blood mm[Hg]Jose Maxim DO Work Phone: [facility] HospitalWbtaorzocg78-45-9734 11:52-0400Systolic blood cpvnuqaa549 mm[Hg]Jose Maxim DO Work Phone: [facility] Encounters Encounter DateEncounter TypeCare ProviderFacilityStart: 02-07-2025 End: 38-84-6275Quruqt flowsheetCorey Maxim DO Work Phone: [phone] Vanesa OBGYNStart: 02-07-2025 End: 59-68-0346Cxgnjv flowsheetCorey Maxim DO Work Phone: [facility] OBGYNStart: 02-07-2025 End: 29-64-9142Lgjxraue flow sheetCorey Maxim DO Work Phone: [facility] Vanesa OBGYNComment on above:Third trimester ([facility]); 33 weeks gestation of ([facility])Start: 02-07-2025 End: 63-93-9777qhihgfjbbqRAUVY FAZIONot AvailableStart: 02-02-2025 End: 01-25-2454Mufmlwtdt Result EncounterGeneric External Data ProviderNOMS External Department UnsolicitedStart: 02-02-2025 End: 45-25-8857Onbcsmnup Result EncounterGeneric External Data ProviderNOMS External Department UnsolicitedStart: 01-24-2025 End: 81-27-6059Abxuydho flow sheetCorey Maxim DO Work Phone: [facility] Vanesa OBGYNComment on above:Encounter for ultrasound recheck of choroid plexus cyst, antepartum ([facility]); Third trimester ([facility]); 31 weeks gestation of ([facility]); size inconsistent with dates ([facility])Start: 01-24-2025 End: 19-80-0522ugsnveqeqkSAMQM FAZIONot AvailableStart: 01-09-2025 End: 67-82-8597Jkazcs Jv Gunter NP Work Phone: [facility]a OBGYNStart: 01-09-2025 End: 24-97-9339Lmlbok Jv Gunter NP Work Phone: [facility] Vanesa OBGYNStart: 01-09-2025 End: 46-87-4511Huzpsfzv flow Gia Gunter NP Work Phone: [facility] Weld OBGYNComment on above:Third trimester ([facility]); 29 weeks gestation of ([facility]); Choroid plexus cystStart: 01-09-2025 End: 34-63-0602oxswfdgvtdDIUSWTLD EBERLYNot AvailableStart: 12-28-2024 End: 51-61-3594fgnzrdhccuWMZ RAMEYMarilin AvailableStart: 12-28-2024 End: 81-19-5830Vciouvcs dulce CUELLAR Work Phone: [facility] OBGYNComment on above:Second trimester ([facility]); 27 weeks gestation of ([facility])Start: 12-28-2024 End: 62-59-4838Xwgzdz Minnie CUELLAR Work Phone: [facility] OBGYNStart: 12-28-2024 End: 22-82-8025Knwqzo flowsheetAmy Connor PA Work Phone: [facility]anesa OBGYNStart: 12-10-2024 End: 57-77-9431Githibcxb Result EncounterGeneric External Data ProviderNOMS External Department UnsolicitedStart: 12-10-2024 End: 53-61-7763Uludywaxq Result EncounterGeneric External Data ProviderNOMS External Department UnsolicitedStart: 12-05-2024 End: 96-47-6388Voamfodzl Result EncounterGeneric External Data ProviderNOMS External Department UnsolicitedStart: 12-05-2024 End: 38-53-3866Wfucoqxrs Result EncounterGeneric External Data ProviderNOMS External Department UnsolicitedStart: 12-05-2024 End: 57-44-7515Qxghnhob flow sheetCorey Maxim DO Work Phone: NOMS Alexis OBGYNComment on above:Acne, unspecified acne type (Primary Dx); Second trimester ([facility]); 24 weeks gestation of ([facility]); Diabetes mellitus screening; Screening, , for anatomic survey ([facility])Start: 12-05-2024 End: 64-50-6735wzxluebzknJKRAN FAZIONot AvailableStart: 11-07-2024 End: 17-71-9057Gdgqfbsxj Result EncounterGeneric External Data ProviderNOMS External Department UnsolicitedStart: 11-07-2024 End: 51-10-5573Omxtwcizk Result EncounterGeneric External Data ProviderNOMS External Department UnsolicitedStart: 11-07-2024 End: 87-13-4990Uqwicati flow sheetCorey Maxim DO Work Phone: noMS Vanesa OBGYNComment on above:Screening, , for anatomic survey ([facility]) (Primary Dx); Second trimester ([facility]); 20 weeks gestation of ([facility])Start: 11-07-2024 End: 06-87-6835unhogkyjazRPMAG FAZIONot AvailableStart: 11-02-2024 End: 77-16-5783Mupbzawpz Result EncounterCorey Maxim DO Work Phone: noms External Department UnsolicitedStart: 11-02-2024 End: 62-79-0315Jpkmkwprw Result EncounterCorey Maxim DO Work Phone: noms External Department UnsolicitedStart: 10-10-2024 End: 89-87-4048Vsslyqwh flow sheetCorey Maxim DO Work Phone: NOMS BCP OBComment on above:Second trimester ([facility]); 16 weeks gestation of ([facility]); Screening, , for anatomic survey ([facility])Start: 10-10-2024 End: 46-85-2230qchzsldrgzZJJRR FAZIONot AvailableStart: 10-10-2024 End: 03-25-7810Bbqhty flowsheetCorey Maxim DO Work Phone: NOMS BCP OBStart: 10-10-2024 End: 76-80-1978Inyhob flowsheetCorey Maxim DO Work Phone: noms BCP OBStart: 09-28-2024 End: 64-16-8636Qpyrzp outpatient visit 15 minutesDaja CUELLAR Work Phone: NOMS BCP OBComment on above:Second trimester ([facility]); 14 weeks gestation of ([facility]); Screen for STD (sexually transmitted disease)Start: 09-28-2024 End: 19-33-4105xgwozeouwsBWQ Berenice AvailableStart: 09-28-2024 End: 58-43-2435Dguovl flowsGermania CUELLAR Work Phone: NOMS BCP OBStart: 09-28-2024 End: 62-66-8209Yqnquc Minnie CUELLAR Work Phone: NOMS BCP OBStart: 09-28-2024 End: 71-51-8669Qfhsqrvh Result EncounterDaja CUELLAR Work Phone: noMS External Department UnsolicitedStart: 09-13-2024 End: 53-63-1924Vcfetc flowsheetCorey Maxim DO Work Phone: NOPK BCP OBStart: 09-13-2024 End: 34-79-7525Vqexic flowsheetCorey Maxim DO Work Phone: NOMS BCP OBStart: 09-13-2024 End: 29-62-7346plxdalutpcYAEKR FAZIONot AvailableStart: 09-13-2024 End: 83-13-9953Choutdzr flow sheetCorey Maxim DO Work Phone: NOPQ BCP OBComment on above:First trimester ; 12 weeks gestation of ; Urinary tract infection in mother during , antepartumStart: 08-22-2024 End: 16-06-4751Oaccxrsde Result EncounterCorey Maxim DO Work Phone: noms External Department UnsolicitedStart: 08-22-2024 End: 61-39-1956Vfyvhppyw Result EncounterCorey Maxim DO Work Phone: noMS External Department UnsolicitedStart: 08-18-2024 End: 07-76-7858tqgqwcmvieLUH RAMEYNot AvailableStart: 08-18-2024 End: 91-63-0507Cklvrg outpatient visit 5 minutesNoms Bcp Ob Maxim NurseNOMS BCP OBComment on above:GA: 3x5sLyqpr: 08-18-2024 End: 72-82-2029npcqnomptwQRP RAMEYNot AvailableStart: 08-12-2024 End: 88-09-9140Hjlxebqpn Result EncounterGeneric External Data ProviderNOMS External Department UnsolicitedStart: 08-12-2024 End: 63-24-9104Oyiaocktm Result EncounterGeneric External Data ProviderNOMS External Department UnsolicitedStart: 08-12-2024 End: 38-32-0989Implhvcm Result EncounterDaja Ryan PA Work Phone: noMS External Department UnsolicitedStart: 08-02-2024 ambulatoryAurora X OrzechFacility:EU [place]uskyStart: 08-01-2024 End: 35-20-2572waqpwwqyhiJAKPKKSE E PERRYFacility:EU BellevueStart: 07-20-2024 End: 77-62-9491rjgkbxbyhhGBCJ F BOWERNot AvailableStart: 07-18-2024 End: 93-08-4680Gcxxkc Jesus Ramírez MD Work Phone: NOMS FNR FMStart: 07-18-2024 End: 74-49-4130Cyfvbk flowsAlonso Ramírez MD Work Phone: NOMS FNR FMStart: 07-18-2024 End: 44-87-5928Lxpnip outpatient visit 15 minutesSri Ramírez MD Work Phone: NOMS FNR FMComment on above:Mass of lower outer quadrant of left breast (Primary Dx)Start: 07-18-2024 End: 28-19-8045xygetutvnqUGXF F BOWERNot AvailableStart: 06-10-2024 End: 36-84-2939Mwbayy flowsAlfonso Donovan [facility] Work Phone: NOMS FNR FMStart: 06-10-2024 End: 17-38-4592Gmutkq flowsAlfonso Donovan [facility] Work Phone: NOMS FNR FMStart: 06-10-2024 End: 03-75-9730Cerqzutqi encounterSri Ramírez MD Work Phone: NOMS FNR FMStart: 06-10-2024 End: 26-74-0106Aejqol outpatient visit 25 minutesReggie Donovan [facility] Work Phone: NOMS FNR FMComment on above:Encounter for removal of sutures (Primary Dx); Cellulitis of finger of right handStart: 06-10-2024 End: 11-41-0303oyjulsjglsLMFSLE MAJORSNot AvailableStart: 05-23-2024 End: 48-99-2407Veiowr Minnie CUELLAR Work Phone: NOCX BCP OBStart: 05-23-2024 End: 94-92-0358Twzsqg Minnie CUELLAR Work Phone: noMS BCP OBStart: 85-36-9838ovailzfyudHHCSUNLZ E PATRICIA Facility:ALISHA Holcombtart: 05-23-2024 End: 13-52-7139qtiolusuofZFD RAMEYNot AvailableStart: 05-23-2024 End: 16-20-4815Ozictc outpatient visit 15 minutesDaja Connor CUELLAR Work Phone: noms BCP OBComment on above:Vaginal discharge; Vaginal burningStart: 05-16-2024 End: 87-30-3319oidhnpxchpSLYTIKPC E PERRYFacility:EU [place]Start: 05-16-2024 End: 98-51-4192Mjuchcr encounter procedureJENNIFER E PATRICIA [facility] start: 04-20-2024 End: 88-20-4253Wwwhtn Minnie CUELLAR Work Phone: noMS BCP OBStart: 04-20-2024 End: 46-39-6761Wktahpraymond CUELLAR Work Phone: NOMS BCP OBStart: 04-20-2024 End: 41-42-2731Yxropk follow up visit related to original pxCorey Maxim DO Work Phone: noms BCP OBComment on above:Postoperative examination Start: 04-20-2024 End: 70-31-7645mfbrfaogwvFCPIS FAZIONot AvailableStart: 04-01-2024 End: 03-78-0671Brnjvxfgt Result EncounterGeneric External Data ProviderNOMS External Department UnsolicitedStart: 04-01-2024 End: 95-72-2507Kkltvevyq Result EncounterGeneric External Data ProviderNOMS External Department UnsolicitedStart: 03-22-2024 End: 78-43-9649Prinwzaft Result EncounterGeneric External Data ProviderNOMS External Department UnsolicitedStart: 03-22-2024 End: 82-49-0901Fgbhpbqdj Result EncounterGeneric External Data ProviderNOMS External Department UnsolicitedStart: 03-21-2024 End: 48-83-3580hducxczxvvRyrgzz J GaleaFacility:FTMCStart: 03-21-2024 End: 00-44-0912Tee Drop offAlysha J Galea [facility] Start: 03-21-2024 End: 26-77-5701sgdicqpmtrXflpuj X OrzechFacility:EU [place]vueStart: 03-21-2024 End: 52-85-2014Xcrvaxi encounter procedureAurora X Orzech [facility] start: 03-09-2024 End: 76-50-0190Weticf flowsheetCorey Maxim DO Work Phone: noms [facility] OBStart: 03-09-2024 End: 94-82-1138Otjzrp flowsheetCorey Maxim DO Work Phone: noms [facility] OBStart: 03-09-2024 End: 44-40-4251Oplxbv outpatient visit 15 minutesCorey Maxim DO Work Phone: noms [facility] OBComment on above:Pre-op evaluation; Pelvic pain in female; Bacterial vaginosisStart: 03-09-2024 End: 08-50-5914Jhtenocnbkpif examination doneCorey Maxim DO Work Phone: NOMS HealthcareStart: 03-09-2024 End: 70-84-1420ojrnyqfybpYSLFB FAZIONot AvailableStart: 03-01-2024 End: 30-02-4443bhdsbtoyptDhnwjs X OrzechFacility:EU [place]vueStart: 03-01-2024 End: 52-54-4327Smjlxng encounter procedureAurora X Orzech [facility] start: 02-15-2024 End: 13-55-0865Swhwet flowsheetCorey Maxim DO Work Phone: noms [facility] OBStart: 02-15-2024 End: 51-12-7358Qcuthc flowsheetCorey Maxim DO Work Phone: noms [facility] OBStart: 02-15-2024 End: 77-76-6216Bahzmt outpatient visit 15 minutesCorey Maxim DO Work Phone: NOMS [facility] OBComment on above:Bacterial vaginosis; Urinary tract infection without hematuria, site unspecified; Vaginal odor; Bacterial infection due to mycoplasmaStart: 02-15-2024 End: 53-33-8152kdxruqgmmnJSQDE FAZIONot AvailableStart: 02-03-2024 End: 69-79-5512Fgqzirank Result EncounterGeneric External Data ProviderNOMS External Department UnsolicitedStart: 02-03-2024 End: 41-79-0347Xhfewejiv Result EncounterGeneric External Data ProviderNOMS External Department UnsolicitedStart: 01-27-2024 End: 37-97-5603Hdryhm flowsGermania CUELLAR Work Phone: noms [facility] OBStart: 01-27-2024 End: 61-79-8684Fdjxmy Minnie CUELLAR Work Phone: NONE [facility] OBStart: 01-27-2024 End: 44-65-7717Kdnacprry Result EncounterGeneric External Data ProviderNOMS External Department UnsolicitedStart: 01-27-2024 End: 34-07-0377Yofjcfz encounter procedureDaja CUELLAR Work Phone: noMS Healthcare Work Phone: Start: 01-27-2024 End: 07-36-7937Setxxswi preventive med est patient 18-39 yrsDaja CUELLAR Work Phone: NOMS [facility] OBComment on above:Well woman exam with routine gynecological examStart: 01-11-2024 End: 57-01-6365Jxyviz flowsheetCorey Maxim DO Work Phone: [phone] BCP OBStart: 01-11-2024 End: 20-00-3393Rrbhvyse Result EncounterCorey Maxim DO Work Phone: noms External Department UnsolicitedStart: 01-11-2024 End: 70-89-6599Jiqvywzq Result EncounterCorey Maxim DO Work Phone: noms External Department UnsolicitedStart: 01-11-2024 End: 53-86-1659Vwgopv outpatient visit 15 minutesCorey Maxim DO Work Phone: noms BCP OBComment on above:Pelvic pain in female Start: 09-22-2023 End: 58-96-2484Awzalgaog department patient visitSRI [facility] Centertart: 05-03-2022 End: 30-58-3680qszkhneyfpLV MARY BOWERFacility:K8Sthjb: 06-19-2021 End: 89-86-7063wxrlbldynwPDOUZISBaptist [facility] HospitalStart: 06-19-2021 End: 48-59-9738Bbcsellijx hospital visit by Steph Gardner [address] RadiologyComment on above:Ureteral stone with hydronephrosis Ureteral stone with hydronephrosis; Suprapubic pain; Dysuria; Urgency of urinationStart: 06-12-2021 End: 68-84-2647husyzkfkirSHRRDZG [facility] HospitalStart: 06-12-2021 End: 75-24-9477Tgtzthidet hospital visit by Reji Ramírez MD Work Phone: mthz LaboratoryComment on above:Ureteral stone with hydronephrosis; Suprapubic pain; Dysuria; Urgency of urinationStart: 05-21-2021 End: 38-04-8403hleiilmzmxSA JOSE FAZIOFacility:H1 Procedures DateProcedureProcedure DetailPerforming ClinicianStart: 53-82-3776Xoikw dip stick/tablet rgnt non-auto w/o micrscpCorey Maxim DO Work Phone: Start: 08-06-9828CW OB GROWTHGeneric External Data ProviderStart: 67-93-2562Ncosl dip stick/tablet rgnt non-auto w/o micrscpCorey Maxim DO Work Phone: Start: 46-77-2951Ulvut dip stick/tablet rgnt non-auto w/o micrscpKristina Jani HO Work Phone: Start: 09-34-1005Ioeac dip stick/tablet rgnt non-auto w/o micrscLesley CUELLAR Work Phone: Start: 73-90-3448ADSCEUO 1 HOURCorey Maxim DO Work Phone: Start: 67-92-1609KI for multiple gestation limitedGeneric External Data ProviderStart: 89-99-1571Ljqsc dip stick/tablet rgnt non-auto w/o micrscpCorey Maxim DO Work Phone: Start: 95-67-5505Ifeth dip stick/tablet rgnt non-auto w/o micrscpCorey Maxim DO Work Phone: Start: 90-55-3933JR OB ANATOMYGeneric External Data ProviderStart: 70-77-4785MH OB CERVICAL LENGTHCorey Maxim DO Work Phone: Start: 97-18-4558CUV, SERUM, OPEN SPINA BIFIDAGeneric External Data ProviderStart: 18-46-1882Tiuaz dip stick/tablet rgnt non-auto w/o micrscpCorey Maxim DO Work Phone: Start: 46-09-2651NSBWCGBTX VAGINITIS (HTRX)Daja CUELLAR Work Phone: Start: 99-92-6826Tqzoy dip stick/tablet rgnt non-auto w/o nanettescLesley CUELLAR Work Phone: Start: 11-79-3818Ffait dip stick/tablet rgnt non-auto w/o micrscpCorey Maxim DO Work Phone: Start: 05-65-7796UJJ TESTGeneric External Data ProviderStart: 02-66-3170Gjgut dip stick/tablet rgnt non-auto w/o micrscpCorey Maxim DO Work Phone: Start: 71-78-5904Fipbyio bacterial quanttative colony count urineDaja Ryan ALISA Work Phone: Start: 68-13-0912APXAW CULTURE - FRMCGeneric External Data ProviderStart: 49-63-2528TQT CBC WITH AUTO DIFFCorey Maxim DO Work Phone: Start: 33-01-3427LZ ABDOMEN 1VGeneric External Data ProviderStart: 59-53-8952MN RENAL BIGeneric External Data ProviderStart: 69-19-6875Hihcp dip stick/tablet rgnt non-auto w/o micrscpCorey Maxim DO Work Phone: Start: 14-16-5798ZA PELVISGeneric External Data ProviderStart: 48-70-8427KHX,APTIMA HPV,AGE GDLNDaja Umanajuve CUELLAR Work Phone: Start: 71-98-1251Nubr cerv/vag auto thin layer prep mnl screenCorey Maxim DO Work Phone: Start: 63-38-2245NPCGTXP TRACT INFECTION (HTRX)Jose Maxim DO Work Phone: Start: 01-11-2024 End: 78-27-8134Ytfth dip stick/tablet rgnt non-auto w/o micrscpCorey Maxim DO Work Phone: Start: 37-79-2002Nvmseztudi exam abdomen 1 viewBethany W Pedroell HEARING THERAPY DIRECTOR - FUNERAL DIRECTOR/EMBALMER Work Phone: Start: 68-44-3337Ji retroperitoneal real time w/image completeBethany W Pedroell HEARING THERAPY DIRECTOR - FUNERAL DIRECTOR/EMBALMER Work Phone: Start: 72-10-6875Sgjzq dip stick/tablet reagent auto microscopyBethany W Pedroell HEARING THERAPY DIRECTOR - FUNERAL DIRECTOR/EMBALMER Work Phone: Start: 36-91-8294PotgwpgjcrvOjqhkx Orzech Plan of Treatment DateCare ActivityDetailAuthorStart: 49-78-1432ECqG/Tdap/Td vaccine (8 - Td or Tdap)DTaP/Tdap/Td vaccine (8 - Td or Tdap)[facility]Start: [facility]30 DTaP/Tdap/Td Vaccines (8 - Td or Tdap)DTaP/Tdap/Td Vaccines (8 - Td or Tdap)NOMS HealthcareStart: 02-21-2025 End: 36-84-9557Qeyaifq encounter aequjetkz21/11/2025 10:30 AM EST Routine [facility] [address] [place] [id number] Jose Pan, DO [address] [place] [address] NOMS [facility] OBGYNStart: 02-07-2025 End: 93-84-2143Cqngrbz encounter procedureNOMS Weld OBGYNComment on above: ArrivedStart: 02-06-2025 End: 86-66-7527Apmhofm encounter procedureNOMS BCP OBStart: 01-24-2025 End: 66-70-8318UU for pregnancyNOMS HealthcareComment on above:Expected: 01/24/2025, Expires: 05/27/2025Start: 01-24-2025 End: 64-94-6131Ssigmkx encounter gxgubpepe17/14/2025 10:00 AM EDT Routine [facility] [address] [place] [address] Jose Pan, DO [address] [place] [address] [facility]OMS [facility] OBGYNStart: 01-24-2025 End: 32-10-9070Dubuuyssaftz / ancillary services cxljecgcjh30/14/2025 9:30 AM EDT Ancillary Procedure [facility] [address] [facility] [address] NOMS Weld OBGYNStart: 01-23-2025 End: 22-77-7451WA for pregnancyUS OB limited 1+ fetuses Imaging Routine Encounter for ultrasound recheck of choroid plexus cyst, antepartum ([facility]) Expected: 01/23/2025 (Approximate), Expires: 01/23/2026[facility] Work Phone: comment on above:Expected: 01/23/2025 (Approximate), Expires: 01/23/2026Start: 01-09-2025 End: 62-80-5310IF for pregnancyUS OB limited 1+ fetuses Imaging Routine Choroid plexus cyst Expected: 01/09/2025, Expires: 04/10/2025[facility] Work Phone: comment on above:Expected: 01/09/2025, Expires: 04/10/2025Start: 01-09-2025 End: 25-72-7898Ipbujql encounter procedureNOMS Vanesa OBGYNComment on above: ArrivedStart: 12-28-2024 End: 62-57-0326Qdfpuzo encounter yliasnmvw31/17/2025 1:20 PM EDT Routine [facility] [address] [place], [id number] Jose Pan DO [address] [place] [address] NOMS [facility] OBGYNStart: 03-99-5126ABZIF- 19 Vaccine ( season)COVID-19 Vaccine ( season)NOMS HealthcareStart: 72-48-2073Cmmcbdhwz vaccinationNOMS HealthcareStart: 12-08-2024 End: 94-41-3312CT for pregnancyUS OB 14+ weeks anatomy scan Imaging Routine Screening, , for anatomic survey ([facility]) Expected: 12/08/2024, Expires: 02/07/2025[facility] Work Phone: comment on above:Expected: 12/08/2024, Expires: 02/07/2025Start: 12-05-2024 End: 16-32-0150ILH panel - Blood by Automated countCBC Lab Routine Diabetes mellitus screening Expected: 12/05/2024 (Approximate), Expires: 12/05/2025[facility] Work Phone: comment on above:Expected: 12/05/2024 (Approximate), Expires: 12/05/2025Start: 12-05-2024 End: 72-76-0028Octduozeyqo of glucose 1 hour after glucose challenge for glucose tolerance testGlucose tolerance, 1 hour Lab Routine Diabetes mellitus screening Expected: 12/05/2024 (Approximate), Expires: 12/05/2025[facility] HealthcareComment on above:Expected: 12/05/2024 (Approximate), Expires: 12/05/2025Start: 12-05-2024 End: 27-45-9061WV for pregnancyUS OB 14+ weeks anatomy scan Imaging Routine Screening, , for anatomic survey ([facility]) Expected: 12/05/2024, Expires: 03/07/2025[facility] Work Phone: comment on above:Expected: 12/05/2024, Expires: 03/07/2025Start: 12-05-2024 End: 96-54-7960Vevahcyumaep / ancillary services /25/2025 1:00 PM EDT Ancillary Procedure [facility] [address] [place] [address] [place] [address] [facility]S [facility] OBGYNStart: 11-07-2024 End: 16-38-0549Bjapglz encounter procedureNOMS BCP OBStart: 10-10-2024 End: 74-53-9401Barntyq encounter procedureNOMS BCP OBComment on above:Arrived Start: 10-10-2024 End: 76-40-8158Okzjb fetoprotein, maternalAlpha fetoprotein, maternal Lab Routine Second trimester ([facility]) Expected: 10/10/2024 (Approximate), Expires: 12/10/2024NODE HealthcareComment on above:Expected: 10/10/2024 (Approximate), Expires: 12/10/2024Start: 10-10-2024 End: 62-02-1528BK for pregnancyUS OB 14+ weeks anatomy scan Imaging Routine Screening, , for anatomic survey ([facility]) Expected: 10/10/2024, Expires: 01/10/2025[facility] Work Phone: comment on above:Expected: 10/10/2024, Expires: 01/10/2025Start: 09-28-2024 End: 19-54-9254Wkmcxxa encounter /18/2025 2:50 PM EDT Office Visit [facility] [address] [facility] [address] Daja Ryan PA [address] [place] [address] ArrivedDAVIES CAMPUS OBComment on above:ArrivedStart: 09-14-2024 End: 16-68-4669Gkfgwrg encounter oncaiokbd13/04/2025 1:40 PM EDT Routine [facility] [address] [facility] [address] Jose Pan, DO [address] [place], [place] [id number] NOMS BCP OBStart: 08-18-2024 End: 26-17-7828OMO/RhABO/Rh Lab Routine Missed menses , unspecified gestational age Expected: 08/18/2024 (Approximate), Expires: 08/18/2025NODE HealthcareComment on above:Expected: 08/18/2024 (Approximate), Expires: 08/18/2025Start: 08-18-2024 End: 88-91-9812Pgzsf type and Indirect antibody screen panel - BloodType and screen Lab Routine Missed menses , unspecified gestational age Expected: 08/18/2024 (Approximate), Expires: 08/18/2025[facility] Work Phone: comment on above:Expected: 08/18/2024 (Approximate), Expires: 08/18/2025Start: 08-18-2024 End: 01-56-7729Xxuub of abuse panel - Urine by Screen methodRapid drug screen, urine Lab Routine , unspecified gestational age Encounter for supervision of normal first in first trimester Expected: 08/18/2024 (Approximate), Expires: 08/18/2025NOMS HealthcareComment on above:Expected: 08/18/2024 (Approximate), Expires: 08/18/2025Start: 08-18-2024 End: 37-49-9063qhiqwxadbt81/08/2025 1:00 PM EDT Initial [facility] [address] [place] [address] KZPJ BCP OBStart: 08-18-2024 End: 70-29-5043Yjbsuchmfrzz / ancillary services /08/2025 12:30 PM EDT Ancillary Procedure [facility] [address] [place] [address] HWYN BCP OBStart: 07-20-2024 End: 68-45-6852Xremskkokbie / ancillary services gdhslliltc16/09/2025 3:30 PM EDT Ancillary Procedure [facility] [address] [facility] [place] [address] SZVP FNR ULTRASOUNDStart: 07-18-2024 End: 13-80-2055DB Breast - leftLeft breast US complete Imaging Routine Mass of lower outer quadrant of left breast Expected: 07/18/2024, Expires: 09/17/2025 [facility] Work Phone: Comment on above:Expected: 07/18/2024, Expires: 09/17/2025Start: 07-18-2024 End: 65-20-4112Mldwiyx encounter /07/2025 8:20 AM EDT Office Visit [facility] [address] [place] [address] Sri Ramírez MD [address] [place] [facility] [place] [place] [address] ArrivedNOMS FNR FMComment on above:ArrivedStart: 06-10-2024 End: 01-27-8494Tnjdrcr encounter gamwuizrd48/28/2025 8:00 AM EST Office Visit [facility] [address] [place] [address] Reggie Donovan NP [address] [facility] [place] [address] ArrivedNOMS FNR FMComment on above:ArrivedStart: 04-20-2024 End: 57-08-2377Orkvntz encounter asxueraec69/08/2025 8:50 AM EST Office Visit [facility] [address] [facility] [address] Daja Ryan PA [address] [facility] [address] [place], [place] [address] ArrivedNOMS BCP OBComment on above:ArrivedStart: 03-09-2024 End: 52-48-0374Vcaucix encounter ethuyuusf71/27/2024 11:20 AM EST Consult [facility] [address] [facility] [address] Jose Pan, [address] [place] [address] ArrivedNOMS BCP OBComment on above:ArrivedStart: 02-15-2024 End: 14-17-0870Ofcyzls encounter procedureNOMS BCP OBComment on above:Arrived Start: 02-03-2024 End: 24-03-1530Lasrbssozbad / ancillary services kchpyhdugf82/23/2024 10:30 AM EDT Ancillary Procedure [facility] [address] [facility] [address] [address] [place] [address] NOMS BCP OBStart: 01-27-2024 End: 90-99-3576Oailkws encounter procedureNOMS [facility] OBComment on above:Arrived Start: 01-20-2024 End: 64-03-9802Vsoazcemchgi / ancillary services /09/2024 8:30 AM EDT Ancillary Procedure [facility] OB [address] [facility] [address] UBVA BCP OBStart: 01-11-2024 End: 72-57-6040NJRNGXWB(R) ADVANCED VAGINITIS PLUS, TMASURESWAB(R) ADVANCED VAGINITIS PLUS, TMA Pathology and Cytology Routine Pelvic pain in female Expect ed: 01/11/2024 (Approximate), Expires: 01/10/2025[facility] Work Phone: comment on above:Expected: 01/11/2024 (Approximate), Expires: 01/10/2025Start: 01-11-2024 End: 15-03-0894GZ for pregnancyUS PELVIS-TRANSVAG IF INDICATED Imaging Routine Pelvic pain in female Expected: 01/11/2024 (Approximate), Expires: 01/10/2025 NOMS HealthcareComment on above:Expected: 01/11/2024 (Approximate), Expires: 01/10/2025Start: 07-23-5773Prsirjois vaccinationInfluenza Vaccine (#1)[facility]: [facility] End: 88-30-6447Mfasxkp encounter mhvbnbalk63/17/2022 Office Visit Urology Jason Bradley, HEARING THERAPY DIRECTOR - FUNERAL DIRECTOR/EMBALMER [address] [place], [address] [facility]Start: 06-19-2021 End: 17-06-1828Luayfbe encounter xxvokoosr82/09/2022 Appointment [facility] UltrasoundStart: 77-32-1043TMMNO-19 Vaccine (3 - Booster for Pfizer series)COVID-19 Vaccine (3 - Booster for Pfizer series)[facility]Start: 67-53-2825Ujdaqdiyb vaccinationFlu vaccine (#1)[facility]: 2018 Screening for malignant neoplasm of cervixPap smearAdams [facility] Hospital: 2013 Screening for Chlamydia trachomatisChlamydia screenAd[facility]: 02-11-2012 HIV screeningHIV screenAdams County Hospital: 88-34-6714Cjqufsa of varicella vaccinationVaricella Vaccines (1 of 2 - 13+ 2-dose series)[facility]: 22-03-8915Obrnxqpgdn ScreenDepression ScreenAdams County Hospital: 2003 Pneumococcal 0-64 years Vaccine (1 of 2 - PPSV23)Pneumococcal 0-64 years Vaccine (1 of 2 - PPSV23)[facility]: 90-24-1070Mwkhbojte vaccine (1 of 2 - 2- dose childhood series)Varicella vaccine (1 of 2 - 2-dose childhood series)[facility]: 88-86-0111Brrvzlpfk C screeningHepatitis C [facility] Bacteria identified in Urine by CultureUrine culture Microbiology Routine Pelvic pain in female Ordered: 01/11/2024[facility] HealthcareComment on above:Ordered: 01/11/2024acteria identified in Urine by CultureUrine culture Microbiology Routine 08/12/2024 8[facility]: bacteria identified in Urine by CultureUrine culture Microbiology Routine Missed menses Ordered: 08/18/2024[facility] HealthcareComment on above:Ordered: 5CBC W Auto Differential panel - BloodCBC and differential Lab Routine Missed menses , unspecified gestational age Ordered: 08/18/2024[facility] HealthcareComment on above:Ordered: 08/18/2024HLAMYDIA TRACHOMATIS (GENITO/STI)CHLAMYDIA TRACHOMATIS (GENITO/STI) Lab Routine Vaginal odor Ordered: 02/15/2024[facility] HealthcareComment on above:Ordered: 02/15/2024 CHLAMYDIA TRACHOMATIS (GENITO/STI)CHLAMYDIA TRACHOMATIS (GENITO/STI) Lab Routine Pelvic pain in female Ordered: 01/11/2024[facility] HealthcareComment on above: Ordered: 01/11/2024HLAMYDIA TRACHOMATIS (GENITO/STI)CHLAMYDIA TRACHOMATIS (GENITO/STI) Lab Routine Vaginal discharge Vaginal burning Ordered: 05/23/2024 [facility] HealthcareComment on above:Ordered: 05/23/2024HLAMYDIA TRACHOMATIS (GENITO/STI)CHLAMYDIA TRACHOMATIS (GENITO/STI) Lab Routine Screen for STD (sexually transmitted disease) Ordered: 09/28/2024[facility] HealthcareComment on above:Ordered: 09/28/2024 End: [id number], [facility]Mer[facility] Work Phone: comment on above:1 Occurrences starting 06/12/2021 until 2Cytology Cervical or vaginal smear or scraping studyPap Smear Pathology and Cytology Routine Well woman exam with routine gynecological exam Ordered: 01/27/2024[facility] Healthcare Work Phone: comment on above:Ordered: 01/27/2024Hemoglobin A1c/Hemoglobin.total in BloodHemoglobin A1c Lab Routine Missed menses , unspecified gestational age Ordered: 08/18/2024[facility] HealthcareComment on above: Ordered: 08/18/2024Hepatitis B virus surface Ag [Presence] in Serum or Plasma by ImmunoassayHepatitis B surface antigen Lab Routine Missed menses , unspecified gestational age Ordered: 08/18/2024[facility] HealthcareComment on above: Ordered: 08/18/2024Hepatitis C virus Ab [Presence] in Serum or Plasma by ImmunoassayHepatitis C antibody Lab Routine Missed menses , unspecified gestational age Ordered: 08/18/2024[facility] HealthcareComment on above:Ordered: 08/18/2024HIV-1/HIV-2 antigen/antibody combination immunoassayHIV-1 and HIV-2 antibodies Lab Routine Missed menses , unspecified gestational age Ordered: 08/18/2024[facility] HealthcareComment on above:Ordered: 08/18/2024Neisseria gonorrhoeae DNA [Presence] in Unspecified specimen by REKHA with probe detection Neisseria gonorrhea DNA probe, direct Lab Routine Vaginal odor Ordered: 02/15/2024[facility] HealthcareComment on above:Ordered: 02/15/2024Neisseria gonorrhoeae DNA [Presence] in Unspecified specimen by REKHA with probe detection Neisseria gonorrhea DNA probe, direct Lab Routine Pelvic pain in female Ordered: 01/11/2024[facility] HealthcareComment on above:Ordered: 01/11/2024Neisseria gonorrhoeae DNA [Presence] in Unspecified specimen by REKHA with probe detection Neisseria gonorrhea DNA probe, direct Lab Routine Vaginal discharge Vaginal burning Ordered: 05/23/2024[facility] HealthcareComment on above:Ordered: 05/23/2024 Neisseria gonorrhoeae DNA [Presence] in Unspecified specimen by REKHA with probe detectionNeisseria gonorrhea DNA probe, direct Lab Routine Screen for STD (sexually transmitted disease) Ordered: 09/28/2024[facility] HealthcareComment on above:Ordered: 09/28/2024Reagin Ab [Presence] in Serum by RPRRPR Lab Routine Missed menses , unspecified gestational age Ordered: 08/18/2024[facility] HealthcareComment on above:Ordered: 08/18/2024Rubella antibody, IgGRubella antibody, IgG Lab Routine Missed menses , unspecified gestational age Ordered: 08/18/2024[facility] HealthcareComment on above:Ordered: 08/18/2024 SURESWAB(R) ADVANCED VAGINITIS PLUS, TMASURESWAB(R) ADVANCED VAGINITIS PLUS, TMA Pathology and Cytology Routine Bacterial vaginosis Vaginalodor Ordered: 02/15/2024[facility] Work Phone: comment on above:Ordered: 02/15/2024SURESWAB(R) ADVANCED VAGINITIS PLUS, TMASURESWAB(R) ADVANCED VAGINITIS PLUS, TMA Pathology and Cytology Routine Vaginal discharge Vaginal burning Ordered: 05/23/2024[facility] Work Phone: comlsyt on above:Ordered: 05/23/2024SURESWAB(R) ADVANCED VAGINITIS PLUS, TMASURESWAB(R) ADVANCED VAGINITIS PLUS, TMA Pathology and Cytology Routine Screen for STD (sexually transmitted disease) Ordered: 09/28/2024[facility] Work Phone: comrwre on above:Ordered: 09/28/2024[facility] Lab Routine 08/12[facility]24 [facility] Immun[facility] Immunization DateImmunizationNotesCare NnlwweanMqtmwyxe23-76-6060szjmfrpxsd, tetanus toxoids and pertussis vaccineCorey Maxim DO Work Phone: [phone] [place], [place] [address]Ffpsgbusll16-81-9076riljh papilloma virus vaccine, quadrivalentCorey Maxim DO Work Phone: [facility] HospitalTscapiowfu41-16-1373fssrv papilloma virus vaccine, quadrivalentCorey Maxim DO Work Phone: [phone] [place], [place] [address]Fgnkesumpq17-41-7817leaxt papilloma virus vaccine, quadrivalentCorey Maxim DO Work Phone: [phone] [place], [place] [address]Fortbqlspr42-58-4046kkdgoil toxoid, reduced diphtheria toxoid, and acellular pertussis vaccine, adsorbedCorey Maxim DO Work Phone: [phone] [place], [place] [address]Uvdrbyedzh09-00-6229sfwacsgwgi, tetanus toxoids and acellular pertussis vaccine, unspecified formulationCorey Maxim DO Work Phone: [phone] [place] [address] Work Phone: [phone]hetkji, mumps and rubella virus vaccine Jose Maxim DO Work Phone: [facility] HospitalYgaonpfdcj73-30-4500twobfzzzlj vaccine, inactivatedCorey Maxim DO Work Phone: [phone] [place], [place] [address]Ftzywudnzb27-30-5975odbkcgcwaf, tetanus toxoids and acellular pertussis vaccine, unspecified formulationCorey Maxim DO Work Phone: [phone] [place], [place] [address]Ymeyaojzzv24-59-2777rlodcgmlzgy influenzae type b vaccine, PRP-T conjugateCorey Maxim DO Work Phone: [facility] HospitalOnvpwcrckd24-41-5994nkqqllh, mumps and rubella virus vaccineCorey Maxim DO Work Phone: [phone] HospitalMgxcrqgbaa01-77-4915nuagfwcpav vaccine, inactivatedCorey Maxim DO Work Phone: [facility] HospitalZwqalvbdyy10-09-8683tosqunqjrq, tetanus toxoids and acellular pertussis vaccine, unspecified formulationCorey Maxim DO Work Phone: [facility] HospitalYbjnkgznfq33-39-2946knlxkpnskph influenzae type b conjugate and Hepatitis B vaccineCorey Maxim DO Work Phone: [phone] HospitalNuipbtgmtl69-48-4142zvacxmcwyy, tetanus toxoids and acellular pertussis vaccine, unspecified formulationCorey Mxaim DO Work Phone: [facility] HospitalCgxtingxjf16-02-8719kkdirfvuipu influenzae type b vaccine, conjugate unspecified formulationCorey Maxim DO Work Phone: [facility] HospitalZtuenktsqj93-95-4382vtuoudsqlk vaccine, inactivatedCorey Maxim DO Work Phone: [facility] HospitalEgcfbbgbau74-44-1744ppnqynjwdr, tetanus toxoids and acellular pertussis vaccine, unspecified formulationCorey Maxim DO Work Phone: [facility] HospitalSdiedfdpoz65-06-1609acacmvljrag influenzae type b vaccine, conjugate unspecified formulationCorey Maxim DO Work Phone: [facility] HospitalXrgeiteiwe93-55-2404ydhsrfrop B vaccine, pediatric or pediatric/adolescent dosageCorey Maxim DO Work Phone: [facility] HospitalAlcmxldkyd05-71-2776tnoagrxpqa vaccine, inactivatedCorey Maxim DO Work Phone: [facility] HospitalHovknqcozk23-37-1043cgrepjpgw B vaccine, pediatric or pediatric/adolescent dosageCorey Maxim DO Work Phone: [facility] Payers DatePayer CategoryPayerPolicy [id number] [id number] BCBS [id number] 2023-Present [phone] [address] [place] [address] [id number] 2021MedicaidBUCKEYEMedicaidBUCKEYE [facility] MEDICAID [place] [id number] 2020-Present [address] [place] [id number] Medicaid (Managed Care)[id number] [id number] 2.16.840.1.457996.[id number] 2.16840.1.667130.3.57[id number] 2.16.840.1.631105.3.57[id number] 2.16.840.1.586886.3.57[id number] 2.16.840.1.988946.3.57[id number] 2.16.840.1.879046.3.57[id number] 2.16.840.1.801017.3.57[id number] 2.16.840.1.523310.3.57[id number] 2.16.840.1.909581.3.57[id number] 2.16.840.1.797492.3.57[id number] 2.16.840.1.313383.3.57[id number] 2.16.840.1.326374.3.57[id number] 2.16.840.1.528251.3.57[id number] 2.16.840.1.165337.3.57[id number] 2.16.840.1.658743.3.579.[id number] 2..840.1.364732.3.57[id number] 2.0.1.146648.3.57[id number] 2.840.1.995580.3.579.[id number] 2.16.840.1.744585.3.57[id number] 2.840.1.574267.3.57[id number] 2.16840.1.690612.3.57[id number] 2.16840.1.462686.3.57[id number] 2.16.840.1.987953.3.57[id number] 2.16.840.1.061580.3.57[id number] 2.16.840.1.480540.3.57[id number] 2.16.840.1.258837.3.57[id number] 2.16.840.1.077725.3.579.2.252027-36-7194Zbtdwvp9534148 2.16.840.1.894554.3.579.2.626014-43-8214Sjbvcbw0707810 2.16.840.1.451201.3.57[id number] 2.16.840.1.661452.3.57[id number] 2.16.840.1.731028.3.579.2.552529-63-4111Rvngpyf4029264 2.16.840.1.546180.3.57[id number] 2.16.840.1.620346.3.579.2.4[id number] 1.2.840.417942.1.13.239.2.7.3.061281.[id number] 1.2.840.539383.1.13.239.2.7.3.137453.36[id number] Social History DateTypeDetailFacilityStart: 06-12-2021 End: 08-83-9100Uernndt smoking status NHISEx-smokerMercy HealthHistory of tobacco useCigarette SmokerMercy Health Work Phone: start: 06-12-2021 End: 15-39-1701Vmbpaqyuzn smoked current (pack per day) - Reported0.25[facility] HealthcareStart: 06-12-2021 End: 41-83-8202Iootijc use and exposureSmokeless tobacco non-userMer [employer] Work Phone: start: 78-85-4285Eyufkru intakeCurrent non-drinker of alcohol (finding)[employer] Work Phone: start: 89-52-9916Ddp Assigned At BirthNot on fileMercy Memorial HospitalOfficial Limited Virtual Work Phone: History of tobacco useCurrent smokerNOMS Healthcare Start: 01-11-2024 End: 64-10-3377Orvzmdclz beverage intakeLifetime non-drinker (finding)[facility] HealthcareStart: 09-24-2023 End: 60-03-4588M7093 Health LiteracyNOMS HealthcareStart: 04-89-5014Dbd often do you need to have someone [...] got money to buy more.Never trueNOMS HealthcareStart: 92-38-8774Mkzsstb Commentcaffeine: 1-2 cups coffee or energy drink occasionallyNOMS HealthcareStart: 78-51-9147ToytpzdarWEYJ Healthcare Functional Status ViwtDjozahhbkiBjwnrxUyxophiv77-67-2750Tyqdgpy Health Questionnaire 2 item (PHQ- 2) [Reported][facility] HospitalNjavgupgpc44-31-5614Wwoorvtjhi StatusN/AExecutive Urology of [facility] Clinical Notes 01-11-2024 to 02-07-2025 Note Date & FqapAuvhVouvblcl08-00-9478 History of Present illness Narrative* Ana Mcintosh, [employer]ATION [employer] - 02/07/2025 10:20 AM EDT Reason for [...] 09/06/2022 Bipolar affective disorder, currently depressed, moderate ([facility]) 09/06/2022 Complication of intrauterine device (IUD) 09/06/2022 Inattention 09/06/2022 Irregular menses 09/06/2022 Irritable bowel syndrome with diarrhea 09/06/2022 Menstrual cramp 09/06/2022 Pain in pelvis 09/06/2022 Generalized anxiety disorder 09/06/2022 Post-traumatic stress disorder 09/06/2022 Slow transit constipation 09/06/2022 Anxiety during ([facility]) 03/26/2020 Depression affecting ([facility]) 03/26/2020 History of chlamydia 03/26/2020 Bacterial infection due to mycoplasma 02/15/2024 Vaginal odor 02/15/2024 Urinary tract infection without hematuria 02/15/2024 Bacterial vaginosis 02/15/2024 Bladder pain 07/18/2024 Calculus of kidney 07/25/2013 Gross hematuria 07/18/2024 Resolved Ambulatory Problems Diagnosis Date Noted No Resolved Ambulatory Problems Past Medical History: Diagnosis Date ADHD (attention deficit hyperactivity disorder) Bipolar disorder (manic depression) ([facility]) BMI 24.0-24.9, adult Chicken pox 2007 Headache IBS (irritable bowel syndrome) Intrauterine device surveillance Pelvic pain Urinary tract infection HISTORY PAST MEDICAL HISTORY SOCIAL HISTORY Past Medical History: Diagnosis Date ADHD (attention deficit hyperactivity disorder) Adjustment disorder with mixed anxiety and depressed mood Amenorrhea Anxiety Bipolar disorder (manic depression) ([facility]) BMI 24.0-24.9, adult Chicken pox 2008 Complication [...] SMEAR 05/21/2021 negative WISDOM TOOTH EXTRACTION 2015 [place] teeth REVIEW OF SYSTEMS Review of Systems: [...] nursing note reviewed. Exam conducted with a log chain worker present. Vitals: Estimated body mass index is 27.53 kg/m as calculated from the following: Height as of 07/18/24: 5' 7 . Weight as of this encounter: 175 lb 12.8 oz. BP: 102/68 Patient's last menstrual period was 06/19/2024. Assessment/Plan ICD-10-CM 1. Third trimester ([facility]) Z34.93 2. 33 weeks gestation of ([facility]) Z3A.33 POCT urinalysis dipstick manually resulted Return [...] of: Jose Pan DO documented in this encounterPike County Memorial HospitalOkzweqogrj09-14-9244 History of Present illness Narrative* Ana Mcintosh LPN - 01/24/2025 10:00 AM [...] 09/06/2022 Bipolar affective disorder, currently depressed, moderate ([facility]) 09/06/2022 Complication of intrauterine device (IUD) 09/06/2022 Inattention 09/06/2022 Irregular menses 09/06/2022 Irritable bowel syndrome with diarrhea 09/06/2022 Menstrual cramp 09/06/2022 Pain in pelvis 09/06/2022 Generalized anxiety disorder 09/06/2022 Post-traumatic stress disorder 09/06/2022 Slow transit constipation 09/06/2022 Anxiety during ([facility]) 03/26/2020 Depression affecting ([facility]) 03/26/2020 History of chlamydia 03/26/2020 Bacterial infection due to mycoplasma 02/15/2024 Vaginal odor 02/15/2024 Urinary tract infection without hematuria 02/15/2024 Bacterial vaginosis 02/15/2024 Bladder pain 07/18/2024 Calculus of kidney 07/25/2013 Gross hematuria 07/18/2024 Resolved Ambulatory Problems Diagnosis Date Noted No Resolved Ambulatory Problems Past Medical History: Diagnosis Date ADHD (attention deficit hyperactivity disorder) Bipolar disorder (manic depression) ([facility]) BMI 24.0-24.9, adult Chicken pox 2007 Headache [...] nursing note reviewed. Exam conducted with a log chain worker present. Vitals: Estimated body mass index is 27 kg/m as calculated from the following: Height as of 07/18/24: 5' 7 . Weight as of this encounter: 172 lb 6.4 oz. BP: 108/72 Patient's last menstrual period was 06/19/2024. ASSESSMENT & PLAN ICD-10-CM 1. Encounter for ultrasound recheck of choroid plexus cyst, antepartum ([facility]) O35.03X0 US OB limited 1+ fetuses 2. Third trimester ([facility]) Z34.93 3. 31 weeks gestation of ([facility]) Z3A.31 POCT urinalysis dipstick manually resulted 4. size inconsistent with dates ([facility]) O26.849 US OB follow up transabdominal approach [...] mood Amenorrhea Anxiety Bipolar disorder (manic depression) ([facility]) BMI 24.0-24.9, adult Chicken pox 2008 Complication [...] SMEAR 05/21/2021 negative WISDOM TOOTH EXTRACTION 2015 [place] teeth documented in this encounterPike County Memorial HospitalJhmypymimo61-10-8495 History of Present illness Narrative* Jake Gunter, [facility] - 01/09/2025 10:10 AM EDT Reason for [...] Slow transit constipation 09/06/2022 Anxiety during ([facility]) 03/26/2020 Depression affecting ([facility]) 03/26/2020 History of chlamydia 03/26/2020 Bacterial infection due to mycoplasma 02/15/2024 Vaginal odor 02/15/2024 Urinary tract infection without hematuria 02/15/2024 Bacterial vaginosis 02/15/2024 Bladder pain 07/18/2024 Calculus of kidney 07/25/2013 Gross hematuria 07/18/2024 Resolved Ambulatory Problems Diagnosis Date Noted No Resolved Ambulatory Problems Past Medical History: Diagnosis Date ADHD (attention deficit hyperactivity disorder) Bipolar disorder (manic depression) ([facility]) BMI 24.0-24.9, adult Chicken pox 2008 Headache IBS (irritable bowel syndrome) Intrauterine device surveillance Pelvic pain Urinary tract infection HISTORY PAST MEDICAL HISTORY SOCIAL HISTORY Past Medical History: Diagnosis Date ADHD (attention deficit hyperactivity disorder) Adjustment disorder with mixed anxiety and depressed mood Amenorrhea Anxiety Bipolar disorder (manic depression) ([facility]) BMI 24.0-24.9, adult Chicken pox 2008 Complication [...] SMEAR 05/21/2021 negative WISDOM TOOTH EXTRACTION 2015 [place] teeth REVIEW OF SYSTEMS Review of Systems: [...] nursing note reviewed. Exam conducted with a log chain worker present. Vitals: Estimated body mass index is 26.31 kg/m as calculated from the following: Height as of 07/18/24: 5' 7 . Weight as of 12/28/24: 168 lb. BP: Patient's last menstrual period was 06/19/2024. ASSESSMENT & PLAN ICD-10-CM 1. Third trimester ([facility]) Z34.93 POCT urinalysis dipstick manually resulted 2. 29 weeks gestation of ([facility]) Z3A.29 3. Choroid plexus cyst G93.0 US [...] of: Jake Gunter NP documented in this encounterPike County Memorial HospitalPrgrugjqtt68-59-5201 History of Present illness Narrative* ALISA Coyle [...] 09/06/2022 Bipolar affective disorder, currently depressed, moderate ([facility]) 09/06/2022 Complication of intrauterine device (IUD) 09/06/2022 Inattention 09/06/2022 Irregular menses 09/06/2022 Irritable bowel syndrome with diarrhea 09/06/2022 Menstrual cramp 09/06/2022 Pain in pelvis 09/06/2022 Generalized anxiety disorder 09/06/2022 Post-traumatic stress disorder 09/06/2022 Slow transit constipation 09/06/2022 Anxiety during ([facility]) 03/26/2020 Depression affecting ([facility]) 03/26/2020 History of chlamydia 03/26/2020 Bacterial infection due to mycoplasma 02/15/2024 Vaginal odor 02/15/2024 Urinary tract infection without hematuria 02/15/2024 Bacterial vaginosis 02/15/2024 Bladder pain 07/18/2024 Calculus of kidney 07/25/2013 Gross hematuria 07/18/2024 Resolved Ambulatory Problems Diagnosis Date Noted No Resolved Ambulatory Problems Past Medical History: Diagnosis Date ADHD (attention deficit hyperactivity disorder) Bipolar disorder (manic depression) ([facility]) BMI 24.0-24.9, adult Chicken pox 2007 Headache IBS (irritable bowel syndrome) Intrauterine device surveillance Pelvic pain Urinary tract infection HISTORY PAST MEDICAL HISTORY SOCIAL HISTORY Past Medical History: Diagnosis Date ADHD (attention deficit hyperactivity disorder) Adjustment disorder with mixed anxiety and depressed mood Amenorrhea Anxiety Bipolar disorder (manic depression) ([facility]) BMI 24.0-24.9, adult Chicken pox 2007 Complication [...] SMEAR 05/21/2021 negative WISDOM TOOTH EXTRACTION 2015 [place] teeth REVIEW OF SYSTEMS Review of Systems: [...] ASSESSMENT & PLAN ICD-10-CM 1. Second trimester ([facility]) Z34.92 POCT urinalysis dipstick manually resulted 2. 27 weeks gestation of ([facility]) Z3A.27 POCT urinalysis dipstick manually resulted Return [...] Documented by ALISA Coyle on behalf of: LAISA Coyle documented in this encounterPike County Memorial HospitalZousgthpzq02-40-4215 History of Present illness Narrative* Jake Gunter [...] 09/06/2022 Bipolar affective disorder, currently depressed, moderate ([facility]) 09/06/2022 Complication of intrauterine device (IUD) 09/06/2022 Inattention 09/06/2022 Irregular menses 09/06/2022 Irritable bowel syndrome with diarrhea 09/06/2022 Menstrual cramp 09/06/2022 Pain in pelvis 09/06/2022 Generalized anxiety disorder 09/06/2022 Post-traumatic stress disorder 09/06/2022 Slow transit constipation 09/06/2022 Anxiety during ([facility]) 03/26/2020 Depression affecting ([facility]) 03/26/2020 History of chlamydia 03/26/2020 Bacterial infection due to mycoplasma 02/15/2024 Vaginal odor 02/15/2024 Urinary tract infection without hematuria 02/15/2024 Bacterial vaginosis 02/15/2024 Bladder pain 07/18/2024 Calculus of kidney 07/25/2013 Gross hematuria 07/18/2024 Resolved Ambulatory Problems Diagnosis Date Noted No Resolved Ambulatory Problems Past Medical History: Diagnosis Date ADHD (attention deficit hyperactivity disorder) Bipolar disorder (manic depression) ([facility]) BMI 24.0-24.9, adult Chicken pox 2007 Headache IBS (irritable bowel syndrome) Intrauterine device surveillance Pelvic pain Urinary tract infection HISTORY PAST MEDICAL HISTORY SOCIAL HISTORY Past Medical History: Diagnosis Date ADHD (attention deficit hyperactivity disorder) Adjustment disorder with mixed anxiety and depressed mood Amenorrhea Anxiety Bipolar disorder (manic depression) ([facility]) BMI 24.0-24.9, adult Chicken pox 2007 Complication [...] SMEAR 05/21/2021 negative WISDOM TOOTH EXTRACTION 2015 [place] teeth REVIEW OF SYSTEMS Review of Systems: [...] nursing note reviewed. Exam conducted with a log chain worker present. Vitals: Estimated body mass index is 25.22 kg/m as calculated from the following: Height as of 07/18/24: 5' 7 . Weight as of this encounter: 161 lb. BP: 110/72 Patient's last menstrual period was 06/19/2024. ASSESSMENT & PLAN ICD-10-CM 1. Second trimester ([facility]) Z34.92 POCT urinalysis dipstick manually resulted 2. 24 weeks gestation of ([facility]) Z3A.24 3. Diabetes mellitus screening Z13.1 CBC [...] of: Jose Pan DO documented in this encounterJennifer Ville [address]Ndvacgyyma67-26-4075 History of Present illness Narrative* Jake Gunter, [facility] - 11/07/2024 2:00 PM EDT Reason for [...] 09/06/2022 Bipolar affective disorder, currently depressed, moderate ([facility]) 09/06/2022 Complication of intrauterine device (IUD) 09/06/2022 Inattention 09/06/2022 Irregular menses 09/06/2022 Irritable bowel syndrome with diarrhea 09/06/2022 Menstrual cramp 09/06/2022 Pain in pelvis 09/06/2022 Generalized anxiety disorder 09/06/2022 Post-traumatic stress disorder 09/06/2022 Slow transit constipation 09/06/2022 Anxiety during ([facility]) 03/26/2020 Depression affecting ([facility]) 03/26/2020 History of chlamydia 03/26/2020 Bacterial infection due to mycoplasma 02/15/2024 Vaginal odor 02/15/2024 Urinary tract infection without hematuria 02/15/2024 Bacterial vaginosis 02/15/2024 Bladder pain 07/18/2024 Calculus of kidney 07/25/2013 Gross hematuria 07/18/2024 Resolved Ambulatory Problems Diagnosis Date Noted No Resolved Ambulatory Problems Past Medical History: Diagnosis Date ADHD (attention deficit hyperactivity disorder) Bipolar disorder (manic depression) ([facility]) BMI 24.0-24.9, adult Chicken pox 2007 Headache IBS (irritable bowel syndrome) Intrauterine device surveillance Pelvic pain Urinary tract infection HISTORY PAST MEDICAL HISTORY SOCIAL HISTORY Past Medical History: Diagnosis Date ADHD (attention deficit hyperactivity disorder) Adjustment disorder with mixed anxiety and depressed mood Amenorrhea Anxiety Bipolar disorder (manic depression) ([facility]) BMI 24.0-24.9, adult Chicken pox 2008 Complication [...] SMEAR 05/21/2021 negative WISDOM TOOTH EXTRACTION 2015 [place] REVIEW OF SYSTEMS Review of Systems: [...] nursing note reviewed. Exam conducted with a log chain worker present. Vitals: Estimated body mass index is 24.59 kg/m as calculated from the following: Height as of 07/18/24: 5' 7 . Weight as of this encounter: 157 lb. BP: 118/70 Patient's last menstrual period was 06/19/2024. ASSESSMENT & PLAN (Z34.92) Second trimester ([facility]) Plan: POCT urinalysis dipstick manually resulted (Z3A.20) 20 weeks gestation of ([facility]) Return OB: Patient presents today for a [...] of: Jose Pan DO documented in this encounterPike County Memorial [id number] History of Present illness Narrative* Jake Gunter [...] 09/06/2022 Bipolar affective disorder, currently depressed, moderate ([facility]) 09/06/2022 Complication of intrauterine device (IUD) 09/06/2022 Inattention 09/06/2022 Irregular menses 09/06/2022 Irritable bowel syndrome with diarrhea 09/06/2022 Menstrual cramp 09/06/2022 Pain in pelvis 09/06/2022 Generalized anxiety disorder 09/06/2022 Post-traumatic stress disorder 09/06/2022 Slow transit constipation 09/06/2022 Anxiety during ([facility]) 03/26/2020 Depression affecting ([facility]) 03/26/2020 History of chlamydia 03/26/2020 Bacterial infection due to mycoplasma 02/15/2024 Vaginal odor 02/15/2024 Urinary tract infection without hematuria 02/15/2024 Bacterial vaginosis 02/15/2024 Bladder pain 07/18/2024 Calculus of kidney 07/25/2013 Gross hematuria 07/18/2024 Resolved Ambulatory Problems Diagnosis Date Noted No Resolved Ambulatory Problems Past Medical History: Diagnosis Date ADHD (attention deficit hyperactivity disorder) Bipolar disorder (manic depression) ([facility]) BMI 24.0-24.9, adult Chicken pox 2007 Headache IBS (irritable bowel syndrome) Intrauterine device surveillance Pelvic pain Urinary tract infection HISTORY PAST MEDICAL HISTORY SOCIAL HISTORY Past Medical History: Diagnosis Date ADHD (attention deficit hyperactivity disorder) Adjustment disorder with mixed anxiety and depressed mood Amenorrhea Anxiety Bipolar disorder (manic depression) ([facility]) BMI 24.0-24.9, adult Chicken pox 2007 Complication [...] SMEAR 05/21/2021 negative WISDOM TOOTH EXTRACTION 2015 [place] REVIEW OF SYSTEMS Review of Systems: [...] nursing note reviewed. Exam conducted with a log chain worker present. Vitals: Estimated body mass index is 24 kg/m as calculated from the following: Height as of 07/18/24: 5' 7 . Weight as of this encounter: 153 lb 4 oz. BP: 108/60 Patient's last menstrual period was 06/19/2024. ASSESSMENT & PLAN ICD-10-CM 1. Second trimester ([facility]) Z34.92 Alpha fetoprotein, maternal Alpha fetoprotein, maternal POCT urinalysis dipstick manually resulted 2. 16 weeks gestation of ([facility]) Z3A.16 3. Screening, , for anatomic survey ([facility]) Z36.89 US OB 14+ weeks anatomy scan [...] of: Jose Pan DO documented in this encounterPike County Memorial [id number] History of Present illness Narrative* Nasreen Figueroa [...] 09/06/2022 Bipolar affective disorder, currently depressed, moderate ([facility]) 09/06/2022 Complication of intrauterine device (IUD) 09/06/2022 Inattention 09/06/2022 Irregular menses 09/06/2022 Irritable bowel syndrome with diarrhea 09/06/2022 Menstrual cramp 09/06/2022 Pain in pelvis 09/06/2022 Generalized anxiety disorder 09/06/2022 Post-traumatic stress disorder 09/06/2022 Slow transit constipation 09/06/2022 Anxiety during ([facility]) 03/26/2020 Depression affecting (HCC) 03/26/2020 History of chlamydia 03/26/2020 Bacterial infection due to mycoplasma 02/15/2024 Vaginal odor 02/15/2024 Urinary tract infection without hematuria 02/15/2024 Bacterial vaginosis 02/15/2024 Bladder pain 07/18/2024 Calculus of kidney 07/25/2013 Gross hematuria 07/18/2024 Resolved Ambulatory Problems Diagnosis Date Noted No Resolved Ambulatory Problems Past Medical History: Diagnosis Date ADHD (attention deficit hyperactivity disorder) Bipolar disorder (manic depression) ([facility]) BMI 24.0-24.9, adult Chicken pox 2007 Headache IBS (irritable bowel syndrome) Intrauterine device surveillance Pelvic pain Urinary tract infection HISTORY PAST MEDICAL HISTORY SOCIAL HISTORY Past Medical History: Diagnosis Date ADHD (attention deficit hyperactivity disorder) Adjustment disorder with mixed anxiety and depressed mood Amenorrhea Anxiety Bipolar disorder (manic depression) ([facility]) BMI 24.0-24.9, adult Chicken pox 2007 Complication [...] SMEAR 05/21/2021 negative WISDOM TOOTH EXTRACTION 2015 [place] REVIEW OF SYSTEMS Review of Systems: [...] nursing note reviewed. Exam conducted with a log chain worker present. Vitals: Estimated body mass index is 23.34 kg/m as calculated from the following: Height as of 07/18/24: 5' 7 . Weight as of this encounter: 149 lb. BP: 116/70 Patient's last menstrual period was 06/19/2024. ASSESSMENT & PLAN ICD-10-CM 1. Second trimester ([facility]) Z34.92 POCT urinalysis dipstick manually resulted 2. 14 weeks gestation of ([facility]) Z3A.14 3. Screen for STD (sexually transmitted [...] 09/06/2022 Bipolar affective disorder, currently depressed, moderate ([facility]) 09/06/2022 Complication of intrauterine device (IUD) 09/06/2022 Inattention 09/06/2022 Irregular menses 09/06/2022 Irritable bowel syndrome with diarrhea 09/06/2022 Menstrual cramp 09/06/2022 Pain in pelvis 09/06/2022 Generalized anxiety disorder 09/06/2022 Post-traumatic stress disorder 09/06/2022 Slow transit constipation 09/06/2022 Anxiety during ([facility]) 03/26/2020 Depression affecting ([facility]) 03/26/2020 History of chlamydia 03/26/2020 Bacterial infection due to mycoplasma 02/15/2024 Vaginal odor 02/15/2024 Urinary tract infection without hematuria 02/15/2024 Bacterial vaginosis 02/15/2024 Bladder pain 07/18/2024 Calculus of kidney 07/25/2013 Gross hematuria 07/18/2024 Resolved Ambulatory Problems Diagnosis Date Noted No Resolved Ambulatory Problems Past Medical History: Diagnosis Date ADHD (attention deficit hyperactivity disorder) Bipolar disorder (manic depression) ([facility]) BMI 24.0-24.9, adult Chicken pox 2007 Headache IBS (irritable bowel syndrome) Intrauterine device surveillance Pelvic pain Urinary tract infection HISTORY PAST MEDICAL HISTORY SOCIAL HISTORY Past Medical History: Diagnosis Date ADHD (attention deficit hyperactivity disorder) Adjustment disorder with mixed anxiety and depressed mood Amenorrhea Anxiety Bipolar disorder (manic depression) ([facility]) BMI 24.0-24.9, adult Chicken pox 2007 Complication [...] SMEAR 05/21/2021 negative WISDOM TOOTH EXTRACTION 2015 [place] REVIEW OF SYSTEMS Review of Systems: [...] nursing note reviewed. Exam conducted with a log chain worker present. Vitals: Estimated body mass index is 23.34 kg/m as calculated from the following: Height as of 07/18/24: 5' 7 . Weight as of this encounter: 149 lb. BP: 116/70 Patient's last menstrual period was 06/19/2024. ASSESSMENT & PLAN ICD-10-CM 1. Second trimester ([facility]) Z34.92 POCT urinalysis dipstick manually resulted 2. 14 weeks gestation of ([facility]) Z3A.14 3. Screen for STD (sexually transmitted disease) Z11.3 SURESWAB(R) ADVANCED VAGINITIS PLUS, TMA CHLAMYDIA TRACHOMATIS (GENITO/STI) Neisseria gonorrhea DNA probe, direct Patient presents with complaints of vaginal discharge. She denies any pelvic pain today. Cultures are obtained today. She will return in 2 weeks for her routine OB appointment. Documented by Jake Gunter NP on behalf of: ALISA Coyle documented in this encounterPike County Memorial [id number] History of Present illness Narrative* Ana Mcintosh, STATION CHIEF - 09/13/2024 1:40 PM EDT Reason for [...] disorder with mixed anxiety and depressed mood ([facility]) 09/06/2022 Amenorrhea 09/06/2022 Anxiety 09/06/2022 Bipolar affective disorder, currently depressed, moderate ([facility]) 09/06/2022 Complication of intrauterine device (IUD) ([facility]) 09/06/2022 Inattention 09/06/2022 Irregular menses 09/06/2022 Irritable bowel syndrome with diarrhea 09/06/2022 Menstrual cramp 09/06/2022 Pain in pelvis 09/06/2022 Generalized anxiety disorder ([facility]) 09/06/2022 Post-traumatic stress disorder ([facility]) 09/06/2022 Slow transit constipation 09/06/2022 Anxiety during 03/26/2020 Depression affecting ([facility]) 03/26/2020 History of chlamydia 03/26/2020 Bacterial infection due to mycoplasma 02/15/2024 Vaginal odor 02/15/2024 Urinary tract infection without hematuria 02/15/2024 Bacterial vaginosis 02/15/2024 Bladder pain 07/18/2024 Calculus of kidney 07/25/2013 Gross hematuria 07/18/2024 Resolved Ambulatory Problems Diagnosis Date Noted No Resolved Ambulatory Problems Past Medical History: Diagnosis Date ADHD (attention deficit hyperactivity disorder) ([facility]) Bipolar disorder (manic depression) ([facility]) BMI 24.0-24.9, adult Chicken pox 2007 Headache IBS (irritable bowel syndrome) Intrauterine device surveillance Pelvic pain Urinary tract infection HISTORY PAST MEDICAL HISTORY SOCIAL HISTORY Past Medical History: Diagnosis Date ADHD (attention deficit hyperactivity disorder) ([facility]) Adjustment disorder with mixed anxiety and depressed mood ([facility]) Amenorrhea Anxiety Bipolar disorder (manic depression) ([facility]) BMI 24.0-24.9, adult Chicken pox 2007 Complication of intrauterine device (IUD) ([facility]) Headache IBS (irritable bowel syndrome) IBS with [...] SMEAR 05/21/2021 negative WISDOM TOOTH EXTRACTION 2015 [place] REVIEW OF SYSTEMS Review of Systems: [...] nursing note reviewed. Exam conducted with a log chain worker present. Vitals: Estimated body mass index is [...] or undercooked meat, and [facility]. Patient has been consulted regarding any further [...] of: Jose Pan DO documented in this encounterPike County Memorial [id number] History of Present illness Narrative* Nasreen Figueroa [...] anxiety disorder (CMS/HCC) 09/06/2022 Post-traumatic stress disorder (CMS/HCC) 09/06/2022 Slow transit constipation 09/06/2022 Anxiety during 03/26/2020 Depression affecting ([facility]) 03/26/2020 History of chlamydia 03/26/2020 Bacterial infection due to mycoplasma 02/15/2024 Vaginal odor 02/15/2024 Urinary tract infection without hematuria 02/15/2024 Bacterial vaginosis 02/15/2024 Bladder pain 07/18/2024 Calculus of kidney 07/25/2013 Gross hematuria 07/18/2024 Resolved Ambulatory Problems Diagnosis Date Noted No Resolved Ambulatory Problems Past Medical History: Diagnosis Date ADHD (attention deficit hyperactivity disorder) ([facility]) Bipolar disorder (manic depression) ([facility]) BMI 24.0-24.9, adult Chicken pox 2007 Headache [...] SMEAR 05/21/2021 negative WISDOM TOOTH EXTRACTION 2015 [place] Allergies Allergen Reactions Bacitracin-Polymyxin B Other [...] urine; Future Nurse Note: Patient unsure of [place] [employer] to one. OB Intake: Patient presents today for first OB visit. Patients history has been reviewed in great detail including any potential risks. Patient signed consent forms and patient desires testing in both trimesters. Patient currently has no complaints and has been advised to drink 6-8 glasses of water a day, eatno raw or undercooked meat, and [facility]. Patient has also been advised to not [...] by: Nasreen Figueroa MA documented in this encounterPike County Memorial [id number] NotePatient Education Urology Kidney Stones Kidney stones [...] these instructions at home: Medicines ??? Take [id number] and prescription medicines only as told by [...] provider. Document Revised: 11/21/2022 Document Reviewed: 11/21/2022 [employer] Patient Education ? 2023 [employer] 07-18-2024 History of Present illness Narrative* Sri [...] during her subsequent annual visit with her BUSINESS INTELLIGENCE ENGINEER, the diagnosis of bilateral fibroids was confirmed, leading her to forego the ultrasound. Over the past weekend, she has noticed an increase in the sizeof the left breast mass, accompanied by tenderness. She recently had a positive test. Sheis scheduled to see her BUSINESS INTELLIGENCE ENGINEER in 08/2024. Supplemental Information She takes D-mannose [...] SMEAR 05/21/2021 negative WISDOM TOOTH EXTRACTION 2015 [place] FAMILY HISTORY: Family History Problem Relation [...] size of the lump. documented in this [facility]02-28-2025 Telephone encounter Note* Telephone Encounter - Lopez Gan - 06/10/2024 9:17 AM EST Faheem called - she asked if its ok that you go ahead and send the referral for her hand now,please. Ty [facility] [id number] Miscellaneous Notes* Telephone Encounter - Lopez Gan - 06/10/2024 9:17 AM EST Faheem called - she asked if its ok that you go ahead and send the referral for her hand now,please. Ty documented in this [facility]02-28-2025 History of Present illness Narrative* Reggie Donovan [...] Row Patient Outreach from 06/09/2024 in [facility] with Massimo Buchanan LPN Hospital Information ED, Hospital or Group Home Facility Discharge? ED Patient has been contacted within 1 week of being seen in the ED No Have two attempts been made to contact the patient within one week of being seen in the ED? Yes Diagnosis Right thumb laceration. Discharge Date 06/01/24 Discharged To: Home Setting Discharge Hospital [facility] Engagement Admission Date 06/01/24 Medications Appointments Does [...] Diagnosis Date ADHD (attention deficit hyperactivity disorder) ([facility]) Adjustment disorder with mixed anxiety and depressed mood ([facility]) Amenorrhea Anxiety Bipolar disorder (manic depression) ([facility]) BMI 24.0-24.9, adult Chicken pox 2007 Complication of intrauterine device (IUD) ([facility]) Headache IBS (irritable bowel syndrome) IBS with [...] SMEAR 05/21/2021 negative WISDOM TOOTH EXTRACTION 2015 [place] REVIEW OF SYMPTOMS: Review of Systems [...] Follow up as needed. documented in this encounterPike County Memorial [id number] History of Present illness Narrative* ALISA Coyle [...] disorder with mixed anxiety and depressed mood ([facility]) 09/06/2022 Amenorrhea 09/06/2022 Anxiety 09/06/2022 Bipolar affective disorder, currently depressed, moderate ([facility]) 09/06/2022 Complication of intrauterine device (IUD) ([facility]) 09/06/2022 Inattention 09/06/2022 Irregular menses 09/06/2022 Irritable bowel syndrome with diarrhea 09/06/2022 Menstrual cramp 09/06/2022 Pain in pelvis 09/06/2022 Generalized anxiety disorder ([facility]) 09/06/2022 Post-traumatic stress disorder ([facility]) 09/06/2022 Slow transit constipation 09/06/2022 Anxiety during 03/26/2020 Depression affecting ([facility]) 03/26/2020 History of chlamydia 03/26/2020 Bacterial infection due to mycoplasma 02/15/2024 Vaginal odor 02/15/2024 Urinary tract infection without hematuria 02/15/2024 Bacterial vaginosis 02/15/2024 Resolved Ambulatory Problems Diagnosis Date Noted No Resolved Ambulatory Problems Past Medical History: Diagnosis Date ADHD (attention deficit hyperactivity disorder) ([facility]) Bipolar disorder (manic depression) ([facility]) BMI 24.0-24.9, adult Chicken pox 2008 Headache IBS (irritable bowel syndrome) Intrauterine device surveillance Pelvic pain Urinary tract infection HISTORY PAST MEDICAL HISTORY SOCIAL HISTORY Past Medical History: Diagnosis Date ADHD (attention deficit hyperactivity disorder) ([facility]) Adjustment disorder with mixed anxiety and depressed mood ([facility]) Amenorrhea Anxiety Bipolar disorder (manic depression) ([facility] BMI 24.0-24.9, adult Chicken pox 2008 Complication of intrauterine device (IUD) ([facility]) Headache IBS (irritable bowel syndrome) IBS with [...] SMEAR 05/21/2021 negative WISDOM TOOTH EXTRACTION 2015 [place] REVIEW OF SYSTEMS Review of Systems: [...] behalf of: ALISA Coyle documented in this encounterPike County Memorial [id number] History of Present illness Narrative* Ana Mcintosh, CLIFFORD - 04/20/2024 2:00 PM EST [...] (CMS/HCC) 09/06/2022 Complication of intrauterine device (IUD) ([facility]) 09/06/2022 Inattention 09/06/2022 Irregular menses 09/06/2022 Irritable bowel syndrome with diarrhea 09/06/2022 Menstrual cramp 09/06/2022 Pain in pelvis 09/06/2022 Generalized anxiety disorder ([facility]) 09/06/2022 Post-traumatic stress disorder ([facility]) 09/06/2022 Slow transit constipation 09/06/2022 Anxiety during 03/26/2020 Depression affecting ([facility]) 03/26/2020 History of chlamydia 03/26/2020 Bacterial infection due to mycoplasma 02/15/2024 Vaginal odor 02/15/2024 Urinary tract infection without hematuria 02/15/2024 Bacterial vaginosis 02/15/2024 Resolved Ambulatory Problems Diagnosis Date Noted No Resolved Ambulatory Problems Past Medical History: Diagnosis Date ADHD (attention deficit hyperactivity disorder) ([facility]) Bipolar disorder (manic depression) ([facility]) BMI 24.0-24.9, adult Chicken pox 2007 Headache IBS (irritable bowel syndrome) Intrauterine device surveillance Pelvic pain Urinary tract infection HISTORY PAST MEDICAL HISTORY SOCIAL HISTORY Past Medical History: Diagnosis Date ADHD (attention deficit hyperactivity disorder) ([facility]) Adjustment disorder with mixed anxiety and depressed mood ([facility]) Amenorrhea Anxiety Bipolar disorder (manic depression) ([facility]) BMI 24.0-24.9, adult Chicken pox 2007 Complication of intrauterine device (IUD) ([facility]) Headache IBS (irritable bowel syndrome) IBS with [...] SMEAR 05/21/2021 negative WISDOM TOOTH EXTRACTION 2015 [place] REVIEW OF SYSTEMS Review of Systems: [...] nursing note reviewed. Exam conducted with a log chain worker present. Vitals: Estimated body mass index is [...] of: Jose Pan DO documented in this encounterPike County Memorial HospitalDenbdahxfm86-04-0579 NoteUrology Office/Clinic Note Chief Complaint referral HPI [...] gross hematuria. Pt. states she was in [place] ER for cystitis Frequency: 2-3 hours Urgency: [...] with voice recognition artificial intelligence software, specifically [employer], [employer] and or meets. Substitutions may have occurred due to the [...] OBGYN regarding poss endometriosis dx May be HOSPICE MASSAGE THERAPIST source of pain Does not necessarily improve [...] intake. Restrict animal protein. -KUB/ MARCIA at [facility], call pt w/ results Orders: cephalexin, 500 mg = 1 cap(s), Oral, BID, X 7 day(s), # 14 cap(s), Refills(s) 0, Pharmacy: [id number], 174, cm, 03/01/24 10:48:00 EST, Height/Length [...] Mother. Primary malignant neoplasm of female breast: Grandparent.[facility] HospitalComment on above:Result Comment: Electronically Signed By: SRUTHI Pinedo APRN, Bonita Reynolds\.br\Date and Time Signed: 03/29/24 10:28 [id number] Evaluation + Plan note Diagnostic Tests Pending * Urine Culture 03/21/24 [facility] [id number] History of Present illness Narrative* Ana Mcintosh, STATION CHIEF - 03/09/2024 11:20 AM EST Reason for Appointment: Patient ID: Faheem Babb is a 29 y.o. female who presents for Pre-op Visit Patient presents today for Pre Op appointment. Patient is scheduled to undergo Da Neha assisted Diagnostic Laparoscopy, possible ZAHRA, possible FOE, possible BSO on 04/01/[address] Pan at [facility]. MEDICATIONS Current Outpatient Medications Medication Instructions azithromycin (Zithromax) 500 MG tablet Day 1: Take 2 tablets PO onetime dose; Day 2,3,4: Take 1 tablet daily ALLERGIES Allergies Allergen Reactions Bacitracin-Polymyxin B Other Reaction(s): Unknown Lexapro [Escitalopram] Other groggy Buspar [Buspirone] Anxiety Caused heart palpitations and increased anxiety PROBLEMS Active Ambulatory Problems Diagnosis Date Noted Adjustment disorder with mixed anxiety and depressed mood ([facility]) 09/06/2022 Amenorrhea 09/06/2022 Anxiety 09/06/2022 Bipolar affective disorder, currently depressed, moderate ([facility]) 09/06/2022 Complication of intrauterine device (IUD) ([facility]) 09/06/2022 Inattention 09/06/2022 Irregular menses 09/06/2022 Irritable bowel syndrome with diarrhea 09/06/2022 Menstrual cramp 09/06/2022 Pain in pelvis 09/06/2022 Generalized anxiety disorder (CMS/HCC) 09/06/2022 Post-traumatic stress disorder ([facility]) 09/06/2022 Slow transit constipation 09/06/2022 Anxiety during 03/26/2020 Depression affecting ([facility] [place] 03/26/2020 History of chlamydia 03/26/2020 Bacterial infection due to mycoplasma 02/15/2024 Vaginal odor 02/15/2024 Urinary tract infection without hematuria 02/15/2024 Bacterial vaginosis 02/15/2024 Resolved Ambulatory Problems Diagnosis Date Noted No Resolved Ambulatory Problems Past Medical History: Diagnosis Date ADHD (attention deficit hyperactivity disorder) ([facility] [place] Bipolar disorder (manic depression) ([facility] [place] BMI 24.0-24.9, adult Chicken pox 2008 Headache IBS (irritable bowel syndrome) Intrauterine device surveillance Pelvic pain Urinary tract infection HISTORY PAST MEDICAL HISTORY SOCIAL HISTORY Past Medical History: Diagnosis Date ADHD (attention deficit hyperactivity disorder) ([facility] [place] Adjustment disorder with mixed anxiety and depressed mood ([facility] [place]) Amenorrhea Anxiety Bipolar disorder (manic depression) ([facility] [place] BMI 24.0-24.9, adult Chicken pox 2008 Complication of intrauterine device (IUD) ([facility] [place] Headache IBS (irritable bowel syndrome) IBS with [...] Onset Cancer Mother kaila Mental illness Mother kaial manic depressive bipolar disorder No Known Problems Brother 2 brothers Breast cancer Paternal Grandmother juan pablo Cancer Paternal Grandmother juan pablo No Known Problems Daughter SURGICAL HISTORY Past Surgical History: Procedure Laterality Date LITHOTRIPSY 2014 kidney stones/lithotrypsy PAP SMEAR 05/21/2021 negative WISDOM TOOTH EXTRACTION 2015 [place] teeth REVIEW OF SYSTEMS Review of Systems: [...] nursing note reviewed. Exam conducted with a log chain worker present. Vitals: Estimated body mass index is [...] was reviewed, and patient isto proceed to [facility] OR. Pt has vaginal discharge and recurrent bv- rx for xaciato and metrogel faxed to pharmacy. Follow Up: Patient is to follow up between 1-2 weeks post operative to assess proper healing and recovery fromprocedure. Documented by Ana Mcintosh LPN on behalf of: Jose Pan DO documented in this encounterPike County Memorial [id number] History of Present illness Narrative* Estela Phipps [...] disorder with mixed anxiety and depressed mood ([facility] [place] 09/06/2022 Amenorrhea 09/06/2022 Anxiety 09/06/2022 Bipolar affective disorder, currently depressed, moderate ([facility] [place] 09/06/2022 Complication of intrauterine device (IUD) ([facility] [place] 09/06/2022 Inattention 09/06/2022 Irregular menses 09/06/2022 Irritable bowel syndrome with diarrhea 09/06/2022 Menstrual cramp 09/06/2022 Pain in pelvis 09/06/2022 Generalized anxiety disorder ([facility] [place] 09/06/2022 Post-traumatic stress disorder ([facility] [place]) 09/06/2022 Slow transit constipation 09/06/2022 Anxiety during 03/26/2020 Depression affecting ([facility] [place] 03/26/2020 History of chlamydia 03/26/2020 Resolved Ambulatory Problems Diagnosis Date Noted No Resolved Ambulatory Problems Past Medical History: Diagnosis Date ADHD (attention deficit hyperactivity disorder) ([facility] [place] Bipolar disorder (manic depression) ([facility] [place] BMI 24.0-24.9, adult Chicken pox 2007 Headache IBS (irritable bowel syndrome) Intrauterine device surveillance Pelvic pain Urinary tract infection HISTORY PAST MEDICAL HISTORY SOCIAL HISTORY Past Medical History: Diagnosis Date ADHD (attention deficit hyperactivity disorder) ([facility] [place] Adjustment disorder with mixed anxiety and depressed mood ([facility] [place]) Amenorrhea Anxiety Bipolar disorder (manic depression) ([facility] [place] BMI 24.0-24.9, adult Chicken pox 2008 Complication of intrauterine device (IUD) ([facility] [place] Headache IBS (irritable bowel syndrome) IBS with [...] SMEAR 05/21/2021 negative WISDOM TOOTH EXTRACTION 2015 [place] teeth REVIEW OF SYSTEMS Review of Systems: [...] nursing note reviewed. Exam conducted with a log chain worker present. Vitals: Estimated body mass index is [...] refe rral to Urology. Patient aware that [employer] will reach out to her to sent up surgery datefor Dx Lap as well. Patient aware of referral process. Documented by Estela Phipps LPN on behalf of: Jose Pan DO documented in this encounterPike County Memorial [id number] History of Present illness Narrative* ALISA Coyle [...] disorder with mixed anxiety and depressed mood ([facility] [place]) 09/06/2022 Amenorrhea 09/06/2022 Anxiety 09/06/2022 Bipolar affective disorder, currently depressed, moderate ([facility] [place] 09/06/2022 Complication of intrauterine device (IUD) (CMS/HCC) 09/06/2022 Inattention 09/06/2022 Irregular menses 09/06/2022 Irritable bowel syndrome with diarrhea 09/06/2022 Menstrual cramp 09/06/2022 Pain in pelvis 09/06/2022 Generalized anxiety disorder [place] 09/06/2022 Post-traumatic stress disorder ([facility] 09/06/2022 Slow transit constipation 09/06/2022 Anxiety during 03/26/2020 Depression affecting ([facility] 03/26/2020 History of chlamydia 03/26/2020 Resolved Ambulatory Problems Diagnosis Date Noted No Resolved Ambulatory Problems Past Medical History: Diagnosis Date ADHD (attention deficit hyperactivity disorder) [place] Bipolar disorder (manic depression) [place] BMI 24.0-24.9, adult Chicken pox 2007 Headache IBS (irritable bowel syndrome) Intrauterine device surveillance Pelvic pain Urinary tract infection HISTORY PAST MEDICAL HISTORY SOCIAL HISTORY Past Medical History: Diagnosis Date ADHD (attention deficit hyperactivity disorder) ([facility] Adjustment disorder with mixed anxiety and depressed mood ([facility] Amenorrhea Anxiety Bipolar disorder (manic depression) ([facility] BMI 24.0-24.9, adult Chicken pox 2008 Complication of intrauterine device (IUD) ([facility] Headache IBS (irritable bowel syndrome) IBS with [...] SMEAR 05/21/2021 negative WISDOM TOOTH EXTRACTION 2015 [place] teeth REVIEW OF SYSTEMS Review of Systems: [...] nursing note reviewed. Exam conducted with a log chain worker present. Vitals: Estimated body mass index is [...] behalf of: ALISA Coyle documented in this encounterPike County Memorial [id number] History of Present illness Narrative* Estela Phipps LPN - 01/11/2024 11:10 AM EDT Reason for [...] disorder with mixed anxiety and depressed mood ([facility] 09/06/2022 Amenorrhea 09/06/2022 Anxiety 09/06/2022 Bipolar affective disorder, currently depressed, moderate ([facility] 09/06/2022 Complication of intrauterine device (IUD) ([facility] 09/06/2022 Inattention 09/06/2022 Irregular menses 09/06/2022 Irritable bowel syndrome with diarrhea 09/06/2022 Menstrual cramp 09/06/2022 Pain in pelvis 09/06/2022 Generalized anxiety disorder ([facility] 09/06/2022 Post-traumatic stress disorder ([facility] 09/06/2022 Slow transit constipation 09/06/2022 Anxiety during 03/26/2020 Depression affecting ([facility] [place] 03/26/2020 History of chlamydia 03/26/2020 Resolved Ambulatory Problems Diagnosis Date Noted No Resolved Ambulatory Problems Past Medical History: Diagnosis Date ADHD (attention deficit hyperactivity disorder) ([facility] [place] Bipolar disorder (manic depression) ([facility] [place] BMI 24.0-24.9, adult Chicken pox 2007 Headache IBS (irritable bowel syndrome) Intrauterine device surveillance Pelvic pain Urinary tract infection HISTORY PAST MEDICAL HISTORY SOCIAL HISTORY Past Medical History: Diagnosis Date ADHD (attention deficit hyperactivity disorder) ([facility] Adjustment disorder with mixed anxiety and depressed mood ([facility] Amenorrhea Anxiety Bipolar disorder (manic depression) ([facility] [place] BMI 24.0-24.9, adult Chicken pox 2007 Complication of intrauterine device (IUD) ([facility] [place] Headache IBS (irritable bowel syndrome) IBS with [...] SMEAR 05/21/2021 negative WISDOM TOOTH EXTRACTION 2015 [place] teeth REVIEW OF SYSTEMS Review of Systems: [...] nursing note reviewed. Exam conducted with a log chain worker present. Vitals: Estimated body mass index is [...] of: Jose Pan DO [facility] + Plan note No data available for this section [facility] [employer] evaluation note* Diagnosis Ureteral stone with hydronephrosis Calculus of ureter Suprapubic pain Abdominal pain, other specified site Dysuria Urgency of urination documented in this encounter [employer]: evaluation note* Diagnosis Ureteral stone with hydronephrosis Calculus of ureter documented in this encounter [employer] Phone: evaluation note* Diagnosis Ureteral stone with hydronephrosis Calculus of ureter Suprapubic pain Abdominal pain, other specified site Dysuria Urgency of urination documented in this encounter [employer] Phone: evaluation note* Diagnosis Well woman exam with routine gynecological exam Routine gynecological examination documented in this encounter [facility]* Diagnosis Bacterial vaginosis Unspecified vaginitis and vulvovaginitis Urinary tract infection without hematuria, site unspecified Vaginal odor Unspecified symptom associated with female genital organs Bacterial infection due to mycoplasma documented in this encounter [facility]* Diagnosis Pre-op evaluation Pelvic pain in female Unspecified symptom associated with female genital organs Bacterial vaginosis Unspecified vaginitis and vulvovaginitis documented in this encounter [facility]* Diagnosis Pelvic pain in female Unspecified symptom associated with female genital organs documented in this encounter [facility] note* Diagnosis Postoperative examination Follow-up examination, following unspecified surgery documented in this encounter [facility]* Diagnosis Vaginal discharge Leukorrhea, not specified as infective Vaginal burning Other specified symptom associated with female genital organs documented in this encounter [facility] note* Diagnosis Encounter for removal of sutures- Primary Cellulitis of finger of right hand documented in this encounter [facility] Healthcare[facility] note* Diagnosis Mass of lower [...] encounter [facility]* Diagnosis Second trimester (HHS-HCC) state, incidental 14 weeks gestation of (HHS-HCC) Screen for STD (sexually transmitted disease) Screening examination for venereal disease documented in this encounter [facility]* Diagnosis Second trimester (HHS-HCC) state, incidental 16 weeks gestation of (HHS-HCC) Screening, , for anatomic survey (HHS-HCC) Encounter for anatomic survey documented in this encounter [facility]* Diagnosis Screening, , for anatomic survey (HHS-HCC)- Primary Encounter for anatomic survey Second trimester (HHS-HCC) state, incidental 20 weeks gestation of (HHS-HCC) documented in this encounter [facility]* Diagnosis Acne, unspecified acne type- Primary Second trimester (HHS-HCC) state, incidental 24 weeks gestation of (HHS-HCC) Diabetes mellitus screening Screening for diabetes mellitus Screening, , for anatomic survey (HHS-HCC) Encounter for anatomic survey documented in this encounter [facility]* Diagnosis Second trimester (HHS-HCC) state, incidental 27 weeks gestation of (HHS-HCC) documented in this encounter [facility]* Diagnosis Third trimester (HHS-HCC) state, incidental 29 weeks gestation of (HHS-HCC) Choroid plexus cyst Cerebral cysts documented in this encounter [facility]* Diagnosis Encounter for ultrasound recheck of choroid plexus cyst, antepartum (HHS-HCC) Third trimester (HHS-HCC) state, incidental 31 weeks gestation of (HHS-HCC) size inconsistent with dates (HHS-HCC) documented in this encounter [facility]* Diagnosis Third trimester (HHS-HCC) state, incidental 33 weeks gestation of (HHS-HCC) [facility] Dis[facility] instructions No data available for this section [facility] progress note No data available for this section [facility] Advance Directives TypeDate RecordedPatient RepresentativeExplanationACP-Advance DirectiveACP-Power of AttorneyCode StatusDate ActivatedDate InactivatedCommentsFull Code03/28/2014 9:49 AM03/28/2014 5:17 PMTypeDate RecordedPatient RepresentativeExplanationACP- Advance DirectiveACP-Power of AttorneyCode StatusDate ActivatedDate Inactivated CommentsFull Code03/28/2014 9:49 AM03/28/2014 5:17 PM Reason for Referral SpecialtyDiagnoses / ProceduresReferred By ContactReferred To ContactRadiology Diagnoses Ureteral stone with hydronephrosis Suprapubic pain Dysuria Urgency of urination Procedures US RENAL COMPLETE Jason Bradley, HEARING THERAPY DIRECTOR - FUNERAL DIRECTOR/EMBALMER [address] [facility] [address] [place] [address] Referral IDStatusReasonStart DateExpiration DateVisits RequestedVisits [id number] Summary Purpose Family History No Family History [...] Team MemberRelationshipSpecialtyStart DateEnd Date Sri Ramírez MD [address] [place] [address] PCP - General07/20/13Team MemberRelationshipSpecialtyStart DateEnd Date Sri Ramírez MD [address] [place] [address] PCP - General07/20/13Team MemberRelationshipSpecialtyStart DateEnd Date Sri Ramírez MD [address] [place], [place] [address], [place] [address] PCP - General07/20/13Team MemberRelationshipSpecialtyStart DateCopiah County Medical Center Sri Ramírez MD [address] [place] [address] PCP - General07/20/13Team MemberRelationshipSpecialtyStart DateEnd [facility] Sri Ramírez MD [address] [place] [address] PCP - GeneralFamily Medicine09/19/22 Daisy Hurst, [facility] [address] [place] [address] PCP - [place] [employer]09/12/23 Kayla Kahn DO [address] [place] [address] Referring Physician09/19/22 MemberRelationshipSpecialtyStart [facility] Sri Ramírez MD [address] [place] [address] PCP - GeneralFamily Medicine09/19/22 Daisy Hurst, HEARING THERAPY DIRECTOR-[facility] [address] [place] [address] PCP - [place] [employer]09/12/23 Kayla Kahn DO [address] [place] [address] Referring Physician09/19/22Team MemberRelationshipSpecialtyStart DateEnd Date Sir Ramírez MD [address] [place] [address] PCP - Generalmily Medicine09/19/22 Daisy Hurst, HEARING THERAPY DIRECTOR-FARE COLLECTOR [address] [place] [address] PCP - [place] [employer]09/12/23 Kayla Kahn, DO [address] [place] [address] Referring Physician09/19/22Team MemberRelationshipSpecialtyStart DateEnd Date Sri Ramírez MD [address] [facility] [place] [address] PCP - [facility] Medicine09/19/22 Daisy Hurst, HEARING THERAPY DIRECTOR-FARE COLLECTOR [address] [facility] [address] [place] [address] PCP - [place] [employer]09/12/23 Kayla Kahn, DO [address] [place] [address] Referring Physician09/19/22Team MemberRelationshipSpecialtyStart DateEnd [facility] Sri Ramírez MD [address] [place] [address] PCP - [facility] Medicine09/19/22 Daisy Hurst, HEARING THERAPY DIRECTOR-FARE COLLECTOR [address] [place] [address] PCP - [place] [employer]09/12/23 Kayla Kahn DO [address] [place] [address] Referring Physician09/19/22Te MemberRelationshipSpecialtyStart DateEnd [facility] Sri Ramírez MD [address] [place] [address] PCP - Generalmily Medicine09/19/22 Daisy Hurst, HEARING THERAPY DIRECTOR-FARE COLLECTOR [address] [facility] [address] [place] [address] PCP - [place] [employer]09/12/23 Kayla Kahn DO [address] [place] [address] Referring Physician09/19/22Te MemberRelationshipSpecialtyStart DateEnd [facility] Sri Ramírez MD [address] [place] [address] PCP - [facility]09/19/22 Daisy Hurst, HEARING THERAPY DIRECTOR-FARE COLLECTOR [address] [facility] [address] [place] [address] PCP - [place] [employer]09/12/23 Kayla Kahn DO [address] [facility] [address] [place] [address] Referring Physician09/19/22Te MemberRelationshipSpecialtyStart DateEnd [facility] Sri Ramírez MD [address] [place] [address] PCP - [facility]09/19/22 Daisy Hurst, HEARING THERAPY DIRECTOR-FARE COLLECTOR [address] [facility] [address] [place] [address] PCP - [place] [employer]09/12/23 Kayla Kahn DO [address] [facility] [place] [address] Referring Physician09/19/22Team MemberRelationshipSpecialtyStart DateEnd Date Sri Ramírez MD [address] [place] [address] PCP - [facility]09/19/22 Daisy Hurst, HEARING THERAPY DIRECTOR-FARE COLLECTOR [address] [facility] [address] [place] [address] PCP - [place] [employer]09/12/23 Kayla Kahn DO [address] [facility] [place] [address] Referring Physician09/19/22Team MemberRelationshipSpecialtyStart DateEnd Date Sri Ramírez MD [address] [place] [address] PCP - [facility]09/19/22 Daisy Hurst, HEARING THERAPY DIRECTOR-FARE COLLECTOR [address] [facility] [address] [place] [address] PCP - [place] [employer]09/12/23 Kayla Kahn DO [address] [facility] [place] [address] Referring Physician09/19/22Te MemberRelationshipSpecialtyStart DateEnd Date Sri Ramírez MD [address] [place] [address] PCP - [facility]09/19/22 Daisy Hurst, HEARING THERAPY DIRECTOR-FARE COLLECTOR [address] [facility] [address] [place] [address] PCP - [place] [employer]09/12/23 Kayla Kahn DO [address] [place] [address] Referring Physician09/19/22Te MemberRelationshipSpecialtyStart DateEnd Date Sri Ramírez MD [address] [place] [address] PCP - [facility]09/19/22 Daisy Hurst, HEARING THERAPY DIRECTOR-FARE COLLECTOR [address] [facility] [address] [place] [address] PCP - [place] [employer]09/12/23 Kayla Kahn DO [address] [place] [address] Referring Physician09/19/22Te MemberRelationshipSpecialtyStart DateEnd Date Sri Ramírez MD [address] [place] [address] PCP - [facility]09/19/22 Daisy Hurst, HEARING THERAPY DIRECTOR-FARE COLLECTOR [address] [facility] [address] [place] [address] PCP - [place] [employer]09/12/23 Kayla Kahn DO [address] [place] [address] Referring Physician09/19/22Te MemberRelationshipSpecialtyStart [facility] Sri Ramírez MD [address] [place] [address] PCP - [facility]09/19/22 Daisy Hurst, HEARING THERAPY DIRECTOR-FARE COLLECTOR [address] [facility] [address] [place] [address] PCP - [place] [employer]09/12/23 Kayla Kahn DO [address] [place] [address] Referring Physician09/19/22Te MemberRelationshipSpecialtyStart [facility] Sri Ramírez MD [address] [place] [address] PCP - [facility]09/19/22 Daisy Hurst, HEARING THERAPY DIRECTOR-FARE COLLECTOR [address] [address] PCP - [place] [employer]09/12/23 Kayla Kahn DO [address] [place] [address] Referring Physician09/19/22Te MemberRelationshipSpecialtyStart [facility] Sri Ramírez MD [address] [place] [address] PCP - GeneralFamily Medicine09/19/22 Daisy Hurst, HEARING THERAPY DIRECTOR-FARE COLLECTOR [address] [place] [address] [place] [address] PCP - [place] [facility]09/12/23 Kayla Kahn DO [address] [place] [address] Referring Physician09/19/22Team MemberRelationshipSpecialtyStart DateEnd [facility] Sri Ramírez MD [address] [place] [address] PCP - [facility]09/19/22 Kayla Kahn DO [address] [place] [address] Referring Physician09/19/22Te MemberRelationshipSpecialtyStart DateEnd [facility] Sri Ramírez MD [facility] [place] [address] PCP - [facility]09/19/22 Kayla Kahn DO [address] [place] [address] Referring Physician09/19/22Team MemberRelationshipSpecialtyStart DateEnd Date Sri Ramírez MD [address] [place] [address] PCP - [facility]09/19/22 Kayla Kahn DO [address] [place] [address] Referring Physician09/19/22Team MemberRelationshipSpecialtyStart DateEnd Sri Ramírez MD [address] [place] [place] [address] PCP - [facility]Unity[facility] Medicine09/19/22 Kayla Kahn DO [address] [place] [address] Referring Physician09/19/22Te MemberRelationshipSpecialtyStart DateEnd Date Sri Ramírez MD [address] [place] [address] PCP - [facility] Medicine09/19/22 Kayla Kahn DO [address] [place] [address] Referring Physician09/19/22Team MemberRelationshipSpecialtyStart DateEnd Date Sri Ramírez MD [address] [place] [address] PCP - [facility] Medicine09/19/22 Kayla Kahn DO [address] [place] [address] Referring Physician09/19/22Te MemberRelationshipSpecialtyStart DateEnd Date Sri Ramírez MD [address] [place] [address] PCP - Generalmily Medicine09/19/22 Kayla Kahn DO [address] [place] [address] Referring Physician09/19/22Te MemberRelationshipSpecialtyStart DateEnd Sri Ramírez MD [address] [place] [address] PCP - [facility] Medicine09/19/22 Kayla Kahn DO [address] [facility] [place] [address] Referring Physician09/19/22Te MemberRelationshipSpecialtyStart DateEnd Date Sri Ramírez MD [address] [place] [place] [address] PCP - [facility] Medicine09/19/22 Kayla Kahn DO [address] [place] [address] Referring Physician09/19/22Te MemberRelationshipSpecialtyStart DateEnd Date Sri Ramírez MD [address] [place] [place] [address] PCP - [facility] Medicine09/19/22 Kayla Kahn DO [address] [place] [place] [address] Referring Physician09/19/22Te MemberRelationshipSpecialtyStart DateEnd Date Sri Ramírez MD [address] [facility] [place] [address] PCP - [facility] Medicine09/19/22 Kayla Kahn DO [address] [place] [address] Referring Physician09/19/22Team MemberRelationshipSpecialtyStart DateEnd Date Sri Ramírez MD [address] [place] [address] PCP - [facility]09/19/22 Daisy Hurst, HEARING THERAPY DIRECTOR-FARE COLLECTOR [address] [facility] [address] [place] [address] [facility] Kayla Kahn DO [address] [place] [address] Referring Physician09/19/22 Reason for Visit (unrecogniz ed section and content) SpecialtyDiagnoses / ProceduresReferred By ContactReferred To ContactRadiology Diagnoses Ureteral stone with hydronephrosis Suprapubic pain Dysuria Urgency of urination Procedures US RENAL COMPLETE Jason Bradley, HEARING THERAPY DIRECTOR - FUNERAL DIRECTOR/EMBALMER 27 [facility] [address] [place] [address] Referral IDStatusReasonStart DateExpiration DateVisits RequestedVisits [id number]/2/20223/[id number] Women VisitReason CommentsVaginitis/Bacterial VaginosisPt present today for follow up on BV/UTI. Pt complains of having an odor and would like cx's done at todays visit.Reason CommentsPre-op VisitReasonCommentspelvic pressureReasonCommentsPost-op Visit ReasonCommentsBV and CulturesReasonCommentsER Follow-upReasonCommentsAnnual Exam Breast MassReasonCommentsAmenorrheaReasonCommentsRoutine Visit INFORMATION SOURCE (unrecogn ized section and content) DATE CREATED AUTHOR 06/23/2021 [facility] DATE CREATED AUTHOR AUTHOR'S ORGANIZ ATION 05/20/2022 [facility] DATE CREATED AUTHOR AUTHOR'S ORGANIZ ATION 09/25/2023 [facility] DATE CREATED AUTHOR AUTHOR'S ORGANIZ ATION 03/27/2024 [facility] DATE CREATED AUTHOR AUTHOR'S ORGANIZ ATION 04/13/2024 [facility] DATE CREATED AUTHOR AUTHOR'S ORGANIZ ATION 08/02/2024 [facility] DATE CREATED AUTHOR AUTHOR'S ORGANIZ ATION 02/08/2025 [facility] EPIC FOR RECORDS PERTAINING TO PATIENTS [...] BE BASED ON THE PRIMARY CLINICAL RECORDS. [employer] [facility]. provides no warranty or guarantee of the accuracy or completeness of information in this document.
[2025-02-15 13:47] VITALS: BP 126/85; PULSE 92
[2025-02-15 14:07] LABS: Glucose Urine UA NEGATIVE (NEGATIVE)
[2025-02-15 14:20] LABS: Cast Seen? NONE SEEN #/LPF (NONE SEEN); Crystals Seen? None Seen #/HPF (None Seen); Urine Culture Indicated YES-LC
--- NOTE | 2025-02-15 14:43 | US_ITS ---
[facility] [place] [id number] Patient Name: FAHEEM BABB MRN: [id number] date: 1995 Sex: F Assigned Patient Location: [facility] Current Patient Location: Accession/Order Number: [id number] Exam Date: 02/15/2025 14:44 Report Date: 02/16/2025 09:04 At the request of: TRISTA BIRCH DO Procedure: US OB BPP w non-stress BIOPHYSICAL PROFILE: CLINICAL INFORMATION: abdominal pain COMPARISON: 02/01/2025 There is a single live intrauterine gestation in cephalic presentation. The reported gestational age is 34 weeks 3 days. The heart rate measures 135 beats per minute. FINDINGS: TONE: 1 or more episodes of activity extension and flexion of extremity or opening and closing of the hand [Y] 2/2 GROSS BODY MOVEMENTS: 3 or more discrete body or limb movements [Y] 2/2 BREATHING MOVEMENTS: 1 or more episodes of breathing lasting at least 30 seconds [Y] 2/2 CHRISTINE: A single deepest vertical pocket of amniotic fluid greater than 2 cm [Y] 2/2 CHRISTINE: 17.2 cm . This is in upper normal range. Total score: 8/8 US/US OB BPP w non-stress IMPRESSION: NORMAL BIOPHYSICAL PROFILE. Impression dictated by: Ana Michael M.D. 02/16/2025 9:04 AM Dictation Location: [place] [address] Electronically authenticated by: [id number] Y Date: 02/16/2025 09:04
== END 2025-02-15 15:27 | disposition home or self-care (01) ==
PROVIDERS: Admitting Provider Obstetrics & Gynecology; PCP Family Medicine; Visit Provider Obstetrics & Gynecology
DX: O99.891 Other specified diseases and conditions complicating pregnancy (principal); R10.9 Unspecified abdominal pain; Z3A.34 34 weeks gestation of pregnancy
CPT/HCPCS: 59025; 76818; 81001; 87086; G0378; G0379

== ENCOUNTER 2025-02-18 22:13 | Emergency (ER) | payer BC, SELFPAY ==
--- OUTSIDE RECORDS SUMMARY | 2025-01-24 09:00 | XMS_ITS | Encounter Summary ---
Author Organization [facility] Address [address] [place] [address] Care Team Providers Care Canal Tender Name Role Phone Sri Ramírez MD Primary Care Provider [phone] Kayla Kahn DO Unavailable [phone] Reason for Visit * ReasonCommentsRoutine Visit Encounter Details DateTypeDepartmentCare Team (Latest Contact Info)Dtyedcxollp39/14/2025 10:00 AM EDTRoutine [facility] [address] [address] Jose Pan DO [address] [place] [address] Encounter for ultrasound recheck of choroid plexus cyst, antepartum ([facility]); Third trimester ([facility]); 31 weeks gestation of ([facility]); size inconsistent with dates ([facility] Social History Tobacco UseTypesPacks/DayYears UsedDateSmoking Tobacco: FormerCigarettes0.55 Smokeless Tobacco: NeverAlcohol UseStandard Drinks/WeekCommentsNever0 (1 standard drink = 0.6 oz pure alcohol)caffeine: 1-2 cups coffee or energy drink [id number] Health LiteracyAnswerDate RecordedHow often do you need [...] a week 09/24/2023How often do you attend restorationist or yazdanism services?Patient declined 09/24/2023o you belong to any clubs or organizations such as restorationist groups, unions, fraternal or athletic groups, or school groups?No09/24/2023How often do you attend meetings of the clubs or organizations you belong to?Never09/24/2023 Are you , , , , never , or living with a partner?Patient vrsnyhim15/13/2024UDIT-CAnswerDate RecordedQ1: How often do you have a [...] heating?Not hard at all09/24/2023HQ-2AnswerDate RecordedPatient Health Questionnaire-2 Fesed575[place] [facility] [place] of Occupational Health - Occupational Stress QuestionnaireAnswerDate [...] were you homeless or living in a mcc (including now)?No09/24/2023 Estimated Date of WztwidtaTxkijckvJyr73/14/2025ased on last menstrual period of 06/19/2024Sex and Gender InformationValueDate RecordedSex Assigned at BirthNot on fileLegal VujSqosml19/15/2023 6:40 PM EDTGender IdentityNot on file Sexual OrientationNot on filedocumented as of this encounter Last Filed Vital Signs Vital SignReadingTime TakenCommentsBlood Zmdsjczg805/7201/24/2025 10:15 AM EDT Pulse--Temperature--Respiratory Rate--Oxygen Saturation--Inhaled Oxygen Concentration--Bybxum22.2 kg (172 lb 6.4 oz)01/24/2025 10:15 AM EDTHeight--Body Mass Ihhzg1407/07/2025 8:15 AM EDTdocumented in this encounter Progress [...] Bipolar affective disorder, currently depressed, moderate ([facility]) 09/06/2022 Complication of intrauterine device (IUD) 09/06/2022 Inattention 09/06/2022 Irregular menses 09/06/2022 Irritable bowel syndrome with diarrhea 09/06/2022 Menstrual cramp 09/06/2022 Pain in pelvis 09/06/2022 Generalized anxiety disorder 09/06/2022 Post-traumatic stress disorder 09/06/2022 Slow transit constipation 09/06/2022 Anxiety during ([facility]) 03/26/2020 Depression affecting ([facility]) 03/26/2020 History of chlamydia 03/26/2020 Bacterial infection due to mycoplasma 02/15/2024 Vaginal odor 02/15/2024 Urinary tract infection without hematuria 02/15/2024 Bacterial vaginosis 02/15/2024 Bladder pain 07/18/2024 Calculus of kidney 07/25/2013 Gross hematuria 07/18/2024 Resolved Ambulatory Problems Diagnosis Date Noted No Resolved Ambulatory Problems Past Medical History: Diagnosis Date ADHD (attention deficit hyperactivity disorder) Bipolar disorder (manic depression) ([facility]) BMI 24.0-24.9, adult Chicken pox 2007 Headache [...] nursing note reviewed. Exam conducted with a athletic gear custodian present. Vitals: Estimated body mass index is 27 kg/m?? as calculated from the following: Height as of 07/18/24: 5' 7 . Weight as of this encounter: 172 lb 6.4 oz. BP: 108/72 Patient's last menstrual period was 06/19/2024. ASSESSMENT & PLAN ICD-10-CM 1. Encounter for ultrasound recheck of choroid plexus cyst, antepartum ([facility]) O35.03X0 US OB limited 1+ fetuses 2. Third trimester ([facility]) Z34.93 3. 31 weeks gestation of ([facility]) Z3A.31 POCT urinalysis dipstick manually resulted 4. size inconsistent with dates ([facility]) O26.849 US OB follow up transabdominal approach [...] Amenorrhea Anxiety Bipolar disorder (manic depression) ([facility]) BMI 24.0-24.9, adult Chicken pox 2007 Complication [...] SMEAR 05/21/2021 negative WISDOM TOOTH EXTRACTION 2014 [place] teeth documented in this encounter Plan of Treatment DateTypeDepartmentCare Team (Latest Contact Info)Synrospipam16/11/2025 10:30 AM ESTRoutine [facility] [address] [place] [phone] Jose Pan, [address] [place], [place] [id number] NameTypePriorityAssociated DiagnosesOrder ScheduleUS OB follow up transabdominal approachImagingRoutine size inconsistent with dates ([facility]) Expected: 01/24/2025, Expires: 05/27/2025documented as of this encounter Procedures Procedure NamePriorityDate/TimeAssociated DiagnosisCommentsPOCT URINALYSIS NGKTRJXJXqsqfxr19/14/2025 10:23 AM EDT 31 weeks gestation of ([facility]) documented in this encounter Results * [...] Díaz MD Authorizing ProviderResult TypeResult StatusCorey Maxim [facility] OB US PROCEDURES Final Result documented in this encounter Visit Diagnoses Diagnosis Encounter for ultrasound recheck of choroid plexus cyst, antepartum ([facility]) Encounter for ultrasound recheck of choroid plexus cyst, antepartum ([facility]) Third trimester ([facility]) state, incidental 31 weeks gestation of ([facility]) size inconsistent with dates ([facility]) documented in this encounter Care Teams Team MemberRelationshipSpecialtyStart DateEnd Date Sri Ramírez MD [address] [place], [place] [id number] PCP - GeneralFamily Medicine09/19/22 Kayla Kahn DO [address] [place] [address] Referring Physician09/19/22documented as of this encounter
--- OUTSIDE RECORDS SUMMARY | 2025-02-07 09:20 | XMS_ITS | Encounter Summary ---
Author Organization [facility] Address [address] [place] [address] Care Team Providers Care Information Coder Name Role Phone Sri Ramírez MD Primary Care Provider [phone] Kayla Kahn DO Unavailable [phone] Reason for Visit * ReasonCommentsRoutine Visit Encounter Details DateTypeDepartmentCare Team (Latest Contact Info)Pkmruzahxqh02/28/2025 10:20 AM EDTRoutine [facility] [address] [place] [phone] Jose Pan DO [address] [place] [id number] Third trimester ([facility]); 33 weeks gestation of ([facility]) Social History Tobacco UseTypesPacks/DayYears UsedDateSmoking Tobacco: FormerCigarettes0.55 Smokeless Tobacco: NeverAlcohol UseStandard Drinks/WeekCommentsNever0 (1 standard drink = 0.6 oz pure alcohol)caffeine: 1-2 cups coffee or energy drink [id number] Health LiteracyAnswerDate RecordedHow often do you need [...] a week 09/24/2023How often do you attend yarsani or methodist services?Patient declined 09/24/2023o you belong to any clubs or organizations such as yarsani groups, unions, fraternal or athletic groups, or school groups?No09/24/2023How often do you attend meetings of the clubs or organizations you belong to?Never09/24/2023 Are you , , , , never , or living with a partner?Patient btkhjykr33/13/2024UDIT-CAnswerDate RecordedQ1: How often do you have a [...] heating?Not hard at all09/24/2023HQ-2AnswerDate RecordedPatient Health Questionnaire-2 Vrgth296Fin[facility] [place] of Occupational Health - Occupational Stress QuestionnaireAnswerDate [...] were you homeless or living in a correction (including now)?No09/24/2023 Estimated Date of PyiofrtpCrohgqfpDxg26/14/2025ased on last menstrual period of 06/19/2024Sex and Gender InformationValueDate RecordedSex Assigned at BirthNot on fileLegal MkoWjmlqg18/15/2023 6:40 PM EDTGender IdentityNot on file Sexual OrientationNot on filedocumented as of this encounter Last Filed Vital Signs Vital SignReadingTime TakenCommentsBlood Wonzozxt359/6802/07/2025 10:23 AM EDT Pulse--Temperature--Respiratory Rate--Oxygen Saturation--Inhaled Oxygen Concentration--Jtynut63.7 kg (175 lb 12.8 oz)02/07/2025 10:23 AM EDTHeight--Body Mass Index27.5304 8:15 AM EDTdocumented in this encounter Progress Notes * Ana Mcintosh, CLIFFORD - 02/07/2025 10:20 AM EDT Reason for Appointment: Patient ID: [...] 09/06/2022 Bipolar affective disorder, currently depressed, moderate ([facility]) 09/06/2022 Complication of intrauterine device (IUD) 09/06/2022 Inattention 09/06/2022 Irregular menses 09/06/2022 Irritable bowel syndrome with diarrhea 09/06/2022 Menstrual cramp 09/06/2022 Pain in pelvis 09/06/2022 Generalized anxiety disorder 09/06/2022 Post-traumatic stress disorder 09/06/2022 Slow transit constipation 09/06/2022 Anxiety during ([facility]) 03/26/2020 Depression affecting ([facility]) 03/26/2020 History of chlamydia 03/26/2020 Bacterial infection due to mycoplasma 02/15/2024 Vaginal odor 02/15/2024 Urinary tract infection without hematuria 02/15/2024 Bacterial vaginosis 02/15/2024 Bladder pain 07/18/2024 Calculus of kidney 07/25/2013 Gross hematuria 07/18/2024 Resolved Ambulatory Problems Diagnosis Date Noted No Resolved Ambulatory Problems Past Medical History: Diagnosis Date ADHD (attention deficit hyperactivity disorder) Bipolar disorder (manic depression) ([facility]) BMI 24.0-24.9, adult Chicken pox 2007 Headache IBS (irritable bowel syndrome) Intrauterine device surveillance Pelvic pain Urinary tract infection HISTORY PAST MEDICAL HISTORY SOCIAL HISTORY Past Medical History: Diagnosis Date ADHD (attention deficit hyperactivity disorder) Adjustment disorder with mixed anxiety and depressed mood Amenorrhea Anxiety Bipolar disorder (manic depression) ([facility]) BMI 24.0-24.9, adult Chicken pox [...] SMEAR 05/21/2021 negative WISDOM TOOTH EXTRACTION 2015 [place] REVIEW OF SYSTEMS Review of Systems: [...] nursing note reviewed. Exam conducted with a material dispatcher present. Vitals: Estimated body mass index is 27.53 kg/m?? as calculated from the following: Height as of 07/18/24: 5' 7 . Weight as of this encounter: 175 lb 12.8 oz. BP: 102/68 Patient's last menstrual period was 06/19/2024. Assessment/Plan ICD-10-CM 1. Third trimester ([facility]) Z34.93 2. 33 weeks gestation of ([facility]) Z3A.33 POCT urinalysis dipstick manually resulted Return OB: Patient presents today for a routine obstetrics appointment. Patient is currently 33w2d . Patient states she is doing well [...] week for routine OB appointment. Documented by Ana Mcintosh LPN on behalf of: Jose Pan DO documented in this encounter Plan of Treatment DateTypeDepartmentCare Team (Latest Contact Info)Alwbvegsbgr68/11/2025 10:30 AM ESTRoutine [facility] [address] [place] [phone] Jose Pan DO [address] [place] [address] documented as of this encounter Procedures Procedure NamePriorityDate/TimeAssociated DiagnosisCommentsPOCT URINALYSIS IBQMDKNVGbekvqp76/28/2025 10:33 AM EDT 33 weeks gestation of ([facility]) documented in this encounter Results * POCT urinalysis dipstick manually resulted (02/07/2025 10:33 AM EDT)Component ValueRef RangeTest MethodAnalysis TimePerformed AtPathologist SignatureColor, UAYellowClarity, UAClearGlucose, UANegativeNegative - 2000(110) ++++ mg/dL Bilirubin, UANegativeNegative - 4(70) +++ mg/dLKetones, UANegativeNegative - 160(16) ++++ mg/dLSpec Grav, UA1.0101 - 1.03Blood, UANegativeNegative - 50 Allen/mcLpH, UA6.55 - 9Protein, UANegativeNegative - 2000(20) ++++ mg/dL Urobilinogen, UA1.00.2 - 12 mg/dLLeukocytes, UANegativeNegative - 500+++ Andrei/mcLNitrite, UANegativeNegative - PositiveSpecimen (Source)Anatomical Location / LateralityCollection Method / VolumeCollection TimeReceived Time Urine10/ 10:33 AM EDT Narrative Authorizing ProviderResult TypeResult StatusCorey Maxim DOPOINT OF CARE TEST ENTER/EDIT ORDERABLESFinal Result documented in this encounter Visit Diagnoses Diagnosis Third trimester ([facility]) state, incidental 33 weeks gestation of ([facility]) documented in this encounter Care Teams Team MemberRelationshipSpecialtyStart DateEnd Date Sri Ramírez MD [address] [place] [place] [address] PCP - GeneralFamily Medicine09/19/22 Kayla Kahn DO [address] [place] [address] Referring Physician09/19/22documented as of this encounter
[2025-02-18 22:28] LABS: Glucose Urine UA NEGATIVE (NEGATIVE)
[2025-02-18 22:29] VITALS: BP 137/83; PULSE 77; TEMP 36.7; O2SAT 99; BMI 27.4
--- NOTE | 2025-02-18 22:34 | ED_ITS ---
HPI - Female Genitourinary General Chief complaint: Urogenital-Female Stated complaint: POSS UTI, 35WKS PREG Time Seen by Provider: 02/18/25 22:30 Source: patient Mode of arrival: walk-in Limitations: no limitations History of Present Illness HPI Narrative: female. [facility] and baby look good. At that time she did have bacteria in her urine but no symptom. 2 days ago started to have UTI symptoms of discomfort with urination and back pain and now presents to be seen. No fever, chills or nausea Related Data Home Medications ?Medication ?Instructions ?Recorded ?Confirmed Bacillus coagulans-inulin 1 cap PO 03/21/24 billion cell-250 mg capsule (Probiotic Formula (inulin)) multivitamin (Daily Multi-Vitamin 1 tab PO DAILY 03/2108/12/24 tablet) Previous Rx's ?Medication ?Instructions ?Recorded ondansetron 4 mg disintegrating 4 mg PO Q8H PRN nausea and 08/12/24 tablet vomiting 20 days #30 tabs Allergies Allergy/AdvReac Type Severity Reaction Status Date / Time bacitracin (From Neosporin Allergy Rash Verified 02/18/25 22:29 (osj-utl-cavxq)) buspirone (From BuSpar) Allergy Anxiety Verified 02/18/25 22:29 escitalopram (From Lexapro) Allergy Fatigued Verified 02/18/25 22:29 neomycin (From Neosporin Allergy Rash Verified 02/18/25 22:29 (exw-cfh-zhtjt)) polymyxin B (From Neosporin Allergy Rash Verified 02/18/25 22:29 (zhh-yna-imvum)) Review of Systems ROS Status of ROS 10 or more systems reviewed and unremark able except as noted in history and below [facility] Medical History Neck pain ?M54.2 - Cervicalgia (ICD-10) Anemia ?D64.9 - Anemia, unspecified (ICD-10) ADHD ?F90.9 - Attention-deficit hyperactivity disorder, unspecified type (ICD-10) Depression ?F32.A - Depression, unspecified (ICD-10) Migraine ?G43.909 - Migraine, unspecified, not intractable, without status migrainosus (ICD-10) Urinary tract infection ?N39.0 - Urinary tract infection, site not specified (ICD-10) Pelvic pain ?R10.2 - Pelvic and perineal pain (ICD-10) Kidney stones ?N20.0 - Calculus of kidney (ICD-10) IBS (irritable bowel syndrome) ?K58.9 - Irritable bowel syndrome, unspecified (ICD-10) Anxiety ?F41.9 - Anxiety disorder, unspecified (ICD-10) Surgical History History of lithotripsy ?Z98.890 - Other specified postprocedural states (ICD-10) H/O removal of cyst ?Z98.890 - Other specified postprocedural states (ICD-10) History of wisdom tooth extraction ?K08.409 - Partial loss of teeth, unspecified cause, unspecified class (ICD- 10) Family History Other Family history of breast cancer Family history of heart disease Family history of hypertension Family history of myocardial infarction Family history of stroke Social History Within the past year, how often did you have a drink containing alcohol: never Score interpretation: A score less than 3 is consistent with normal alcohol consumption. 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 Highest level of school completed/degree received: Associate degree: occupat ional, technical, vocational program Little interest or pleasure in doing things: not at all Feeling down, depressed, or hopeless: not at all Exam Constitutional Vital Signs, click to edit/add: Last Vital Signs Temp 98.0 F 02/18/25 22:29 Pulse 77 02/18/25 22:29 Resp 17 02/18/25 22:29 BP 137/83 02/18/25 22:29 Pulse Ox 99 02/18/25 22:29 O2 Del Method Room Air 02/18/25 22:29 Common normals: no apparent distress, average body habitus, oriented x3, no limitations, healthy appearing, alert and well nourished [facility] Common normals: normocephalic and head/scalp atraumatic Eye Common normals: EOMs intact bilaterally and conjunctivae normal Respiratory Common normals: normal respiratory effort, no retractions, no use of accessory muscles and clear to auscultation bilaterally Cardio Common normals: regular rate, regular rhythm, S1 normal heart sound and S2 normal heart sound GI Other: gravid. mild suprapubic tenderness. no CVA tenderness Extremity Common normals: normal to inspection and full ROM Neuro Common normals: oriented x3, CN's II-XII intact bilaterally, moves all extremities and no focal motor deficits Psych Appearance: grossly normal Course Vital Signs Vital signs: Vital Signs Temperature 98.0 F 02/18/25 22:29 Pulse Rate 77 02/18/25 22:29 Respiratory Rate 17 02/18/25 22:29 Blood Pressure 137/83 02/18/25 22:29 Pulse Oximetry 99 02/18/25 22:29 Oxygen Delivery Method Room Air 02/18/25 22:29 Temperature 98.0 F 02/18/25 22:29 Pulse Rate 77 02/18/25 22:29 Respiratory Rate 17 02/18/25 22:29 Blood Pressure 137/83 02/18/25 22:29 Pulse Oximetry 99 02/18/25 22:29 Oxygen Delivery Method Room Air 02/18/25 22:29 MDM - Female Genitourinary MDM Narrative Medical decision making narrative: presents with urgency and discomfort with urination similar to past UTIs. She is . No fever, chills or nausea. Does have suprapubic tenderness. UA with pyuria . also increased epithelial cells. Urine cx ordered. Patient prescribed keflex and is to follow up with her doctor next week for recheck Lab Data Labs: Lab Results 02/18/25 Range/Units 22:20 Urine Color Lt. yellow (YELLOW) Urine Clarity Clear (CLEAR) Urine pH 6.5 (5.0-9.0) Ur Specific [place] <=1.005 A (1.005-1.025) Urine Protein Negative (NEG/TRACE) mg/dL Urine Glucose (UA) Negative (NEGATIVE) mg/dL Urine Ketones Negative (NEGATIVE) mg/dL Urine Occult Blood Negative (NEGATIVE) Urine Nitrite Negative (NEGATIVE) Urine Bilirubin Negative (NEGATIVE) Urine Urobilinogen 0.2 (0.2-1.0) EU/dL Ur Leukocyte Esterase Trace A (NEGATIVE) Urine RBC 0-2 (0-2) #/HPF Urine WBC 2-5 A (NONE SEEN) #/HPF Ur Squamous Epith Cells Moderate A (NONE/RARE) #/LPF Urine Crystals None seen (None Seen) #/HPF Urine Bacteria Moderate A (NONE SEEN) #/HPF Urine Casts None seen (NONE SEEN) #/LPF Urine Mucus None seen (NONE SEEN) Ur Culture Indicated? Yes-[facility] Discharge Plan Discharge Chief Complaint: Urogenital-Female Clinical Impression: Urinary tract infection Patient Disposition: Home, Self-Care Prescriptions / Home Meds: No Action Probiotic Formula (inulin) 1 billion-250 cell-mg capsule PO multivitamin [Daily Multi-Vitamin] Tablet 1 tab PO DAILY ondansetron 4 mg tablet,disintegrating 4 mg PO Q8H PRN (Reason: nausea and vomiting) 20 Days Qty: 30 0RF Print Language: Citizen Of [place] Instructions: Urinary Tract Infection in Women (ED) Additional Instructions: drink plenty of fluids and follow up with your doctor next week for recheck Referrals: BUFFY DIANE [Primary Care Provider, Family Practice] - 1 week
[2025-02-18 22:38] LABS: Cast Seen? NONE SEEN #/LPF (NONE SEEN); Crystals Seen? None Seen #/HPF (None Seen); Urine Culture Indicated YES-FRMC
--- OUTSIDE RECORDS SUMMARY | 2025-02-18 22:44 | XMS_ITS | Encounter Summary ---
Author Organization [facility] Address [address] [place] [address] Care Team Providers Care Casing Operator Name Role Phone Sri Ramírez MD Primary Care Provider [phone] Kayla Kahn DO Unavailable [phone] Daisy Hurst RN ASSESSMENT-FLAVOR MAKER Unavailable Encounter Details DateTypeDepartmentCare Team (Latest Contact Info)Xvgxpzeoejm51/23/2024Clinisync Result Encounter [facility] External Department Unsolicited Provider, Generic External Data Social History Tobacco UseTypesPacks/DayYears UsedDateSmoking Tobacco: FormerCigarettes0.55 Smokeless Tobacco: NeverAlcohol UseStandard Drinks/WeekCommentsNever0 (1 standard drink = 0.6 oz pure alcohol)caffeine: 1-2 cups coffee or energy drink [id number] Health LiteracyAnswerDate RecordedHow often do you need [...] a week 09/24/2023How often do you attend pentecostalism or buddhist services?Patient declined 09/24/2023o you belong to any clubs or organizations such as pentecostalism groups, unions, fraternal or athletic groups, or school groups?No09/24/2023How often do you attend meetings of the clubs or organizations you belong to?Never06/ Are you , , , , never , or living with a partner?Patient amzaxdkf63/13/2024UDIT-CAnswerDate RecordedQ1: How often do you have a [...] heating?Not hard at all09/24/2023HQ-2AnswerDate RecordedPatient Health Questionnaire-2 Ghucy467Finbrigham city [facility] hospital [place] of Occupational Health - Occupational Stress QuestionnaireAnswerDate [...] or living in a skilled nursing (including now)?No09/24/2023 CommentsUnknownSex and Gender InformationValueDate RecordedSex Assigned at BirthNot on fileLegal WsgMnyzjm99/15/2023 6:40 PM EDTGender IdentityNot on fileSexual OrientationNot on filedocumented as of this encounter Functional Status * Over the past 2 weeks, how often have you been bothered by any of the following problems?QuestionAnswerDate of AssessmentAuthorLittle interest or pleasure in doing thingsNot at all07/18/2024 8:00 AM Oxana Umanzor MA Feeling down, depressed, or hopelessNot at all07/18/2024 8:00 AM Oxana Umanzor MAPatient Health Questionnaire-2 Ajcte278 8:00 AM EDT Oxana Blanca MA documented as of this encounter Plan of Treatment DateTypeDepartmentCare Team (Latest Contact Info)Rizfhegllzv76/11/2025 10:30 AM ESTRoutine [facility] [address] [place] [address] Trista Pan DO [address] [place] [address] documented as of this encounter Procedures Procedure NamePriorityDate/TimeAssociated DiagnosisCommentsUS KKNHVQ0702/03/2024 11:31 AM EDT documented in this encounter Results * US PELVIS (02/03/2024 11:31 AM EDT)Anatomical RegionLateralityModalityOther Specimen (Source)Anatomical Location / LateralityCollection Method / Volume Collection TimeReceived Time02/03/2024 11:31 AM EDT Narrative 02/03/2024 11:33 AM EDT [facility] ?[address] ? [place] [address] ? Ultrasound Report ? Signed ? Patient: HOLLEY,FAHEEM R ?MR#: [id number] ?? : 1995 ?Acct:[id number] ?? Age/Sex: 28 / F ?ADM Date: 10/23/24 ?? Loc: [facility] ? Attending Dr: Trista Pan D.O. ? Ordering Physician: Trista Pan D.O. ?? Date of Service: 02/03/24 ?? Procedure(s): US pelvis ?? Accession Number(s): [id number] ? cc: SRI RAMÍREZ ; Trista Pan D.O. ? [facility] ? [address] ? [place] [address] ? Patient Name: ?? FAHEEM BELCHER ? MRN: [facility]:[id number] ? date: 1995 ?Sex: F ?? Assigned Patient Location: [facility] ?? Current Patient Location: LAB ?? Accession/Order Number: [id number] ?? Exam Date: 02/03/2024 ??10:36 ?Report Date: [...] 1133 ? DD/ 1131 ? TD/TT: ? Char Filter Tank Tender: Procedure Note Radiology, Radiologist, - 02/03/2024 [place] [address] Ultrasound Report Signed Patient: FAHEEM BELCHER RMR#: [id number] : 1995Acct:[id number] Age/Sex: 28 / FADM Date: 02/03/24 Loc: [facility] Attending Dr: Trista Pan D.O. Ordering Physician: Trista Pan D.O. Date of Service: 02/03/24 Procedure(s): US pelvis Accession Number(s): [id number] cc: SRI RAMÍREZ ; Trista Pan D.O. [facility] [place] [id number] Patient Name: FAHEEM BELCHER MRN: [facility]:[id number] date: 1995 Sex: F Assigned Patient Location: [facility] Current Patient Location: LAB Accession/Order Number: [id number] Exam Date: 02/03/2024 10:36 Report Date: 02/03/2024 [...] M.D. Signed By:02/03/24 1133 DD/ 1131 TD/TT: Char Filter Tank Tender: Authorizing ProviderResult TypeResult StatusGeneric External Data Provider [facility] IMAGINGFinal Result documented in this encounter Visit Diagnoses Not on filedocumented in this encounter Care Teams Team MemberRelationshipSpecialtyStart DateEnd Date Sri Ramírez MD [address] [place] [address] PCP - GeneralFakyly Medicine09/19/22 Sharifa-Daisy Cazares APRN-FLAVOR MAKER [address] [address] PCP - [facility] Kayla Kahn DO [address] [place] [address] Referring Physician09/19/22documented as of this encounter
--- OUTSIDE RECORDS SUMMARY | 2025-02-18 22:44 | XMS_ITS | Patient Health Record ---
Author Organization [facility] es Address [address] [place] [address] Care Team Providers Care Publishing Manager Name Role Phone Dr. Elpidio Michelle Primary Care Provider Reason For Referral No Information Plan Of Treatment No Information Insurance Providers Payer Name Payer Address Payer Phone Subscriber Number Group Number Insured Name Patient Relationship to Insured Coverage Start Date Coverage End Date zDENTAL SHERIEKATRIN-termed 22 [address] [place] [address] [id number] Fadi BASURTO - patient is the [id number] 2020[facility] after SHERIEANTHONYRaymundo-termed [address] [place] [phone] [id number], HAILEYSelf - patient is the [id number] 2020
--- OUTSIDE RECORDS SUMMARY | 2025-02-18 22:44 | XMS_ITS | Encounter Summary ---
Author Organization [facility] Address [address] [place] [address] Care Team Providers Care Clinic Office Coordinator Name Role Phone Sri Ramírez MD Primary Care Provider [phone] Kayla Kahn DO Unavailable [phone] Encounter Details DateTypeDepartmentCare Team (Latest Contact Info)Lhatmurqpou00/05/2025Clinisync Result Encounter [facility] External Department Unsolicited Jose Pan DO [address] [place] [address] Social History Tobacco UseTypesPacks/DayYears UsedDateSmoking Tobacco: FormerCigarettes0.55 Smokeless Tobacco: NeverAlcohol UseStandard Drinks/WeekCommentsNever0 (1 standard drink = 0.6 oz pure alcohol)caffeine: 1-2 cups coffee or energy drink [id number] Health LiteracyAnswerDate RecordedHow often do you need [...] 09/24/2023How often do you attend episcopal or hoahaoism services?Patient declined 4Do you belong to any clubs or organizations such as episcopal groups, unions, fraternal or athletic groups, or school groups?No09/24/2023How often do you attend meetings of the clubs or organizations you belong to?Never09/24/2023 Are you , , , , never , or living with a partner?Patient vgqlpiuk79/13/2024UDIT-CAnswerDate RecordedQ1: How often do you have a [...] heating?Not hard at all09/24/2023HQ-2AnswerDate RecordedPatient Health Questionnaire-2 Ugjbi808F[facility] of Occupational Health - Occupational Stress QuestionnaireAnswerDate [...] were you homeless or living in a fdc (including now)?No09/24/2023 Estimated Date of VhqfnbrrPlnkllrgBcm25/14/2025Based on last menstrual period of 06/19/2024Sex and Gender InformationValueDate RecordedSex Assigned at BirthNot on fileLegal IebLvezcl74/15/2023 6:40 PM EDTGender IdentityNot on file Sexual OrientationNot on filedocumented as of this encounter Plan of Treatment DateTypeDepartmentCare Team (Latest Contact Info)Nlrfxdkzzyb82/11/2025 10:30 AM ESTRoutine [facility] [address] [place] [phone] Jose Pan DO [address] [place], [place] [id number] documented as of this encounter Procedures Procedure NamePriorityDate/TimeAssociated DiagnosisCommentsURINE CULTURE, SPBGLPQXvctxpl65/05/2025 11:45 AM EST [facility] URINE MICROSCOPIC AWJUPvksmbs60/05/2025 11:45 AM EST [facility] UA (CLEAN/CATCH) MANUFACTURING ASSEMBLER/MICRO IF IND.Mjbakkr9002/15/2025 11:45 AM EST documented in this encounter Results * URINE CULTURE, ROUTINE (02/15/2025 11:45 AM EST)ComponentValueRef RangeTest MethodAnalysis TimePerformed AtPathologist SignatureURINE CULTURE, ROUTINE ??Urine Culture, Routine TBHURINE CULTURE, ROUTINECulture shows less than 10,000 colony forming units of bacteria perTBHURINE CULTURE, ROUTINEmilliliter of urine. This colony count is not generally consideredTBHURINE CULTURE, ROUTINEto be clinically significant. TBHURINE CULTURE, ROUTINEPerformed at: [facility] HospitalTBHURINE CULTURE, [id number] [place], [place] [id number] CULTURE, ROUTINELab Director: Anthony Harrison PhD, Phone: [phone] (Source)Anatomical Location / LateralityCollection Method / VolumeCollection TimeReceived Time 02/15/2025 11:45 AM EST02/15/2025 2:00 PM EST Narrative [facility] - 02/16/2025 11:08 PM EST Authorizing ProviderResult TypeResult StatusCorey Maxim DOLAB BLOOD ORDERABLES Final ResultPerforming OrganizationAddressCity/State/ZIP CodePhone Number [facility] * (ABNORMAL) [facility] URINE MICROSCOPIC ONLY (02/15/2025 11:45 AM EST)ComponentValue Ref RangeTest MethodAnalysis TimePerformed AtPathologist SignatureTBH WBC0-2 (A)NONE SEEN #/HPFTBHTBH RBC0-20 - 2 #/HPFTBHBACTERIA URINESMALL(A)NONE SEEN #/HPFTBHMUCUS URINENONE SEENNONE SEENTBHSQUAMOUS EPITHELIAL CELL URINEFEW(A) NONE/RARE #/LPFTBHCRYSTALS SEEN?None SeenNone Seen #/HPFTBHCAST SEEN?NONE SEEN NONE SEEN #/LPFTBHURINE CULTURE INDICATEDYES-LCTBHSpecimen (Source)Anatomical Location / LateralityCollection Method / VolumeCollection TimeReceived Time 02/15/2025 11:45 AM EST02/15/2025 2:00 PM EST Narrative [facility] - 02/15/2025 2:20 PM EST Authorizing ProviderResult TypeResult StatusCorey Maxim DOCLINISYNCFinal Result Performing OrganizationAddressCity/State/ZIP CodePhone Number [facility] * (ABNORMAL) [facility] UA (CLEAN/CATCH) MANUFACTURING ASSEMBLER/MICRO IF IND. (02/15/2025 11:45 AM EST) ComponentValueRef RangeTest MethodAnalysis TimePerformed AtPathologist SignatureCOLOR URINELT. YELLOWYELLOWTBHCLARITY URINECLEARCLEARTBHSPECIFIC GRAVITY URINE1.0101.005 - 1.025TBHPH URINE7.05.0 - 9.0TBHPROTEIN URINENEGATIVE NEG/TRACE mg/dLTBHGLUCOSE URINE UANEGATIVENEGATIVE mg/dLTBHBILIRUBIN URINE NEGATIVENEGATIVETBHKETONES URINENEGATIVENEGATIVE mg/dLTBHBLOOD URINENEGATIVE NEGATIVETBHNITRITE URINENEGATIVENEGATIVETBHUROBILINOGEN URINE0.20.2 - 1.0 EU/dLTBHLEUKOCYTE ESTERASE URINETRACE(A)NEGATIVETBHURINE MICROSCOPIC INDICATED YESTBHSpecimen (Source)Anatomical Location / LateralityCollection Method / VolumeCollection TimeReceived Time02/15/2025 11:45 AM EST02/15/2025 2:00 PM EST Narrative [facility] - 02/15/2025 2:20 PM EST Authorizing ProviderResult TypeResult StatusCorey Maxim DOCLINISYNCFinal Result Performing OrganizationAddressCity/State/ZIP CodePhone Number [facility] documented in this encounter Visit Diagnoses Not on filedocumented in this encounter Care Teams Team MemberRelationshipSpecialtyStart DateEnd Date Sri Ramírez MD [address] [place] [address] PCP - GeneralFamily Medicine09/19/22 Kayla Kahn DO [address] [place] [address] Referring Physician09/19/22documented as of this encounter
--- OUTSIDE RECORDS SUMMARY | 2025-02-18 22:44 | XMS_ITS | Encounter Summary ---
Author Organization [facility] Address [address] [place] [address] Care Team Providers Care Balance Engineer Name Role Phone Sri Ramírez MD Primary Care Provider [phone] Kayla Kanh DO Unavailable [phone] Encounter Details DateTypeDepartmentCare Team (Latest Contact Info)Ejbuthpdmrx24/28/2025amboo flowsheet [facility] [address] [address] Jose Pan DO [address] [place] [id number] Social History Tobacco UseTypesPacks/DayYears UsedDateSmoking Tobacco: FormerCigarettes0.55 Smokeless Tobacco: NeverAlcohol UseStandard Drinks/WeekCommentsNever0 (1 standard drink = 0.6 oz pure alcohol)caffeine: 1-2 cups coffee or energy drink [id number] Health LiteracyAnswerDate RecordedHow often do you need [...] a week 09/24/2023How often do you attend anabaptism or church services?Patient declined 09/24/2023o you belong to any clubs or organizations such as anabaptism groups, unions, fraternal or athletic groups, or [...] heating?Not hard at all09/24/2023HQ-2AnswerDate RecordedPatient Health Questionnaire-2 Rzjlw308Finun[facility] of [facility] hospital [place] of Occupational Health - Occupational Stress QuestionnaireAnswerDate [...] a fdc (including now)?No09/24/2023 Estimated Date of SmsztqxzZskucfbdHfy28/14/2025Based on last menstrual period of 06/19/2024Sex and Gender InformationValueDate RecordedSex Assigned at BirthNot on fileLegal HlcNmqycm78/15/2023 6:40 PM EDTGender IdentityNot on file Sexual OrientationNot on filedocumented as of this encounter Plan of Treatment DateTypeDepartmentCare Team (Latest Contact Info)Odvimbguhhl32/11/2025 10:30 AM ESTRoutine [facility] [address] [place] [address] Jose Pan DO [address] [place] [address] documented as of this encounter Visit Diagnoses Not on filedocumented in this encounter Care Teams Team MemberRelationshipSpecialtyStart DateEnd Sri Ramírez MD [address] [place] [address] PCP - GeneralFamily Medicine09/19/22 Kayla Kahn DO [address] [place] [address] Referring Physician09/19/22documented as of this encounter
--- OUTSIDE RECORDS SUMMARY | 2025-02-18 22:44 | XMS_ITS | Encounter Summary ---
Author Organization [facility] Address [address] [place] [address] Care Team Providers Care Sports Coordinator Name Role Phone Sri Ramírez MD Primary Care Provider [phone] Kayla Kahn DO Unavailable [phone] Daisy Hurst MOLD INSPECTOR-PARTS DATA WRITER Unavailable Encounter Details DateTypeDepartmentCare Team (Latest Contact Info)Znowxefakgb50/10/2024linisync Result Encounter [facility] External Department Unsolicited Provider, Generic External Data Social History Tobacco UseTypesPacks/DayYears UsedDateSmoking Tobacco: FormerCigarettes0.55 Smokeless Tobacco: NeverAlcohol UseStandard Drinks/WeekCommentsNever0 (1 standard drink = 0.6 oz pure alcohol)caffeine: 1-2 cups coffee or energy drink [id number] Health LiteracyAnswerDate RecordedHow often do you need [...] a week 09/24/2023How often do you attend gnosticism or baptist services?Patient declined 09/24/2023o you belong to any clubs or organizations such as gnosticism groups, unions, fraternal or athletic groups, or school groups?No09/24/2023How often do you attend meetings of the clubs or organizations you belong to?Never06/ Are you , , , , never , or living with a partner?Patient dskobyqa75/13/2024UDIT-CAnswerDate RecordedQ1: How often do you have a [...] heating?Not hard at all09/24/2023HQ-2AnswerDate RecordedPatient Health Questionnaire-2 Hoyay181F[facility] [place] of Occupational Health - Occupational Stress QuestionnaireAnswerDate [...] homeless or living in a residential (including now)?No09/24/2023 CommentsUnknownSex and Gender InformationValueDate RecordedSex Assigned at BirthNot on fileLegal PprJyagjg67/15/2023 6:40 PM EDTGender IdentityNot on fileSexual OrientationNot on filedocumented as of this encounter Functional Status * Over the past 2 weeks, how often have you been bothered by any of the following problems?QuestionAnswerDate of AssessmentAuthorLittle interest or pleasure in doing thingsNot at all07/18/2024 8:00 AM Oxana Umanzor MA Feeling down, depressed, or hopelessNot at all07/18/2024 8:00 AM Oxana Umanzor MAPatient Health Questionnaire-2 Xsrap127 8:00 AM EDT Oxana Blanca MA documented as of this encounter Plan of Treatment DateTypeDepartmentCare Team (Latest Contact Info)Dnwwmpfgsdl64/11/2025 10:30 AM ESTRoutine [facility] [place] [facility] [address] [id number] Jose Pan DO [address] [place] [address] documented as of this encounter Procedures Procedure NamePriorityDate/TimeAssociated DiagnosisCommentsXR ABDOMEN 1V 03/22/2024 11:48 AM EST documented in this encounter Results * XR ABDOMEN 1V (03/22/2024 11:48 AM EST)Anatomical RegionLateralityModality OtherSpecimen (Source)Anatomical Location / LateralityCollection Method / VolumeCollection TimeReceived Time03/22/2024 11:48 AM EST Narrative 03/22/2024 11:51 AM EST [facility] ?[address] ? [place] [address] ?XRay Report ? Signed ? Patient: HOLLEY,FAHEEM R ?MR#: [id number] ?? : 1995 ?Acct:[id number] ?? Age/Sex: 29 / F ?ADM Date: 12/09/24 ?? Loc: US ? Attending Dr: Bonita Yu [employer] ? Ordering Physician: Bonita Yu NP ?? Date of Service: 03/21/24 ?? Procedure(s): XR abdomen 1V ?? Accession Number(s): [id number] ? cc: BENEDICTOSRI ; Bonita Yu NP ? [facility] ? [address] ? [place] [address] ? Patient Name: ?? FAHEEM BELCHER ? MRN: [facility]:[id number] ? date: 1995 ?Sex: F ?? Assigned Patient Location: US ?? Current Patient Location: [place] ?? Accession/Order Number: [id number] ?? Exam Date: 03/21/2024 ??13:38 ?Report Date: [...] 1151 ? DD/ 1148 ? TD/TT: ? Coin Collector: Procedure Note Radiology, Radiologist, MD - 03/22/[address] [address] XRay Report Signed Patient: FAHEEM BELCHER RMR#: [id number] : 1995Acct:[id number] Age/Sex: 29 / FADM Date: 03/21/24 Loc: US Attending Dr: Bonita Yu NP Ordering Physician: Bonita Yu NP Date of Service: 03/21/24 Procedure(s): XR abdomen 1V Accession Number(s): [id number] cc: SRI RAMÍREZ ; Bonita Yu NP [place] [address] Patient Name: FAHEEM BELCHER MRN: [id number] date: 1995 Sex: F Assigned Patient Location: Current Patient Location: Accession/Order Number: [id number] Exam Date: 03/21/2024 13:38 Report Date: 03/22/2024 [...] M.D. Signed By:03/22/24 1151 DD/ 1148 TD/TT: Coin Collector: Authorizing ProviderResult TypeResult StatusGeneric External Data Provider CLINISYNC IMAGINGFinal Result documented in this encounter Visit Diagnoses Not on filedocumented in this encounter Care Teams Team MemberRelationshipSpecialtyStart DateEnd Date Sri Ramírez MD [address] [place] [address] [facility] - [facility]22 Daisy Hurst APRN-PARTS DATA WRITER [address] [facility] [address] [place] [address] PCP - [place] Kayla Kahn DO [address] [place] [address] Referring Physician09/19/22documented as of this encounter
--- OUTSIDE RECORDS SUMMARY | 2025-02-18 22:44 | XMS_ITS | Encounter Summary ---
Author Organization [facility] Address [address] [place] [address] Care Team Providers Care Police Detective Name Role Phone Sri Ramírez MD Primary Care Provider [phone] Kayla Kahn DO Unavailable [phone] Encounter Details DateTypeDepartmentCare Team (Latest Contact Info)Kyqwdymuxbw26/30/2025Telephone [facility] [place] [facility] [address] [place] [address] Henry [place], [place] [address] [place] [address] Social History Tobacco UseTypesPacks/DayYears UsedDateSmoking Tobacco: FormerCigarettes0.55 Smokeless Tobacco: NeverAlcohol UseStandard Drinks/WeekCommentsNever0 (1 standard drink = 0.6 oz pure alcohol)caffeine: 1-2 cups coffee or energy drink [id number] Health LiteracyAnswerDate RecordedHow often do you need [...] a week 09/24/2023How often do you attend latter day or bahai services?Patient declined 09/24/2023o you belong to any clubs or organizations such as latter day groups, unions, fraternal or athletic groups, or school groups?No09/24/2023How often do you attend meetings of the clubs or organizations you belong to?Never09/24/2023 Are you , , , , never , or living with a partner?Patient ggxatndw42/13/2024UDIT-CAnswerDate RecordedQ1: How often do you have a [...] heating?Not hard at all09/24/2023HQ-2AnswerDate RecordedPatient Health Questionnaire-2 Csreg876Finhuntsman [facility] institute [place] of Occupational Health - Occupational Stress QuestionnaireAnswerDate [...] a longterm (including now)?No09/24/2023 Estimated Date of WazmfkloCvnnwuuvCvh42/14/2025Based on last menstrual period of 06/19/2024Sex and Gender InformationValueDate RecordedSex Assigned at BirthNot on fileLegal FgxMzwboz15/15/2023 6:40 PM EDTGender IdentityNot on file Sexual [...] Plan of Treatment DateTypeDepartmentCare Team (Latest Contact Info)Qykcvvfogzd57/11/2025 10:30 AM ESTRoutine [facility] [place] [facility] [address] [place] [address] Jose Pan DO [address] [place] [address] documented as of this encounter Visit Diagnoses Diagnosis BV (bacterial vaginosis) Unspecified vaginitis and vulvovaginitis Yeast infection documented in this encounter Care Teams Team MemberRelationshipSpecialtyStart DateEnd Date Sri Ramírez MD [address] [place] [address] PCP - GeneralFamily Medicine09/19/22 Kayla Kahn DO [address] [place] [address] Referring Physician09/19/22documented as of this encounter
--- OUTSIDE RECORDS SUMMARY | 2025-02-18 22:44 | XMS_ITS | Encounter Summary ---
Author Organization [facility] Address [address] [place] [address] Care Team Providers Care Service Developer Name Role Phone Buffy Diane MD Primary Care Provider [phone] Kayla Kahn DO Unavailable [phone] Encounter Details DateTypeDepartmentCare Team (Latest Contact Info)Iqaytxervrv09/06/2025Clinisync Result Encounter [facility] External Department Unsolicited Trista Pan DO [address] [place] [address] Social History Tobacco UseTypesPacks/DayYears UsedDateSmoking Tobacco: FormerCigarettes0.55 Smokeless Tobacco: NeverAlcohol UseStandard Drinks/WeekCommentsNever0 (1 standard drink = 0.6 oz pure alcohol)caffeine: 1-2 cups coffee or energy drink [id number] Health LiteracyAnswerDate RecordedHow often do you need [...] a week 09/24/2023How often do you attend evangelical or yarsani services?Patient declined 4Do you belong to any clubs or organizations such as evangelical groups, unions, fraternal or athletic groups, or school groups?No09/24/2023How often do you attend meetings of the clubs or organizations you belong to?Never09/24/2023 Are you , , , , never , or living with a partner?Patient kgyyefoj65/13/2024UDIT-CAnswerDate RecordedQ1: How often do you have a [...] heating?Not hard at all09/24/2023HQ-2AnswerDate RecordedPatient Health Questionnaire-2 Nttdz679Fincentral [facility] medical center [place] of Occupational Health - Occupational Stress QuestionnaireAnswerDate [...] you homeless or living in a senior care (including now)?No09/24/2023 Estimated Date of IrlbuuxcYavvbkilZqw80/14/2025Based on last menstrual period of 06/19/2024Sex and Gender InformationValueDate RecordedSex Assigned at BirthNot on fileLegal AjrYspfyt12/15/2023 6:40 PM EDTGender IdentityNot on file Sexual OrientationNot on filedocumented as of this encounter Plan of Treatment DateTypeDepartmentCare Team (Latest Contact Info)Yhivuhpuyxz02/11/2025 10:30 AM ESTRoutine [facility] [place] [facility] [address] [place] [address] Trista Pan, DO [address] [place] [address] documented as of this encounter Procedures Procedure NamePriorityDate/TimeAssociated DiagnosisCommentsUS OB BPP W NON-OLSUHE2902/16/2025 9:04 AM EST documented in this encounter Results * US OB BPP W NON-STRESS (02/16/2025 9:04 AM EST)Anatomical Region LateralityModalityOtherSpecimen (Source)Anatomical Location / Laterality Collection Method / VolumeCollection TimeReceived Time02/16/2025 9:04 AM EST Narrative 02/16/2025 9:06 AM EST [facility] ?[address] ? [place] [address] ? Ultrasound Report ? Signed ? Patient: FAHEEM BELCHER ?MR#: [id number] ?? : 1995 ?Acct:[id number] ?? Age/Sex: 30 / F ?ADM Date: ?? Loc: [facility] ??256-1 ? Attending Dr: Trista Pan D.O. ? Ordering Physician: Trista Pan D.O. ?? Date of Service: 02/15/25 ?? Procedure(s): US OB BPP w non-stress ?? Accession Number(s): [id number] ? cc: BUFFY DIANE ; Trista Pan D.O. ? [facility] ? [address] ? [place] [address] ? Patient Name: ?? FAHEEM BELCHER ? MRN: [facility]:[id number] ? date: 1995 ?Sex: F ?? Assigned Patient Location: [facility] ?? Current Patient Location: ? Accession/Order Number: [id number] ?? Exam Date: 02/15/2025 ??14:44 ?Report Date: 02/16/2025 ??09:04 ? At the request of: ?? TRISTA ??MAXIM ??DO ? Procedure: ??US OB BPP w non-stress ? BIOPHYSICAL PROFILE: ? CLINICAL INFORMATION: abdominal pain ? COMPARISON: 02/01/2025 ? There is a single live intrauterine gestation in cephalic presentation. ??The ?? reported gestational age is 34 weeks 3 days. ??The heart rate measures ?? 135 beats per minute. ? FINDINGS: ? TONE: 1 or more episodes of activity extension and flexion of ?? extremity or opening and closing of the hand ?[Y] ? 2/2 ?? GROSS BODY MOVEMENTS: 3 or more discrete body or limb movements ?[Y] ? 2/2 ?? BREATHING MOVEMENTS: 1 or more episodes of breathing lasting at ?? least 30 seconds ? [Y] ? 2/2 ?? CHRISTINE: A single deepest vertical pocket of amniotic fluid greater than 2 cm ? [Y] ? 2/2 ?CHRISTINE: 17.2 cm . ??This is in upper normal range. ? Total score: ? 8/8 ? US/US OB BPP w non-stress ?? IMPRESSION: ? NORMAL BIOPHYSICAL PROFILE. ? Impression dictated by: Ana Michael M.D. ??02/16/2025 9:04 AM ? Dictation Location: RADIO-PC-02 ? Electronically authenticated by: [id number] ??Y ?? Date: 02/16/2025 ??09:04 ? Dictated By: ?Ana Michael M.D. ? Signed By: ?02/16/25 0906 ? DD/ 0904 ? TD/TT: ? Welfare Administrator: Procedure Note Radiology, Radiologist, MD - 02/16/[address] [address] Ultrasound Report Signed Patient: FAHEEM BELCHER RMR#: [id number] : 1995Acct:[id number] Age/Sex: 30 / FADM Date: Loc: [facility] 256-[address]: Trista Pan D.O. Ordering Physician: Trista Pan D.O. Date of Service: 02/15/25 Procedure(s): US OB BPP w non-stress Accession Number(s): [id number] cc: BUFFY DIANE ; Trista Pan D.O. [place] [address] Patient Name: FAHEEM BELCHER MRN: [facility]:[id number] date: 1995 Sex: F Assigned Patient Location: [facility] Current Patient Location: Accession/Order Number: [id number] Exam Date: 02/15/2025 14:44 Report Date: 02/16/2025 09:04 At the request of: TRISTA PAN DO Procedure: US OB BPP w non-stress BIOPHYSICAL PROFILE: CLINICAL INFORMATION: abdominal pain COMPARISON: 02/01/2025 There is a single live intrauterine gestation in cephalic presentation.The reported gestational age is 34 weeks 3 days. The heart ratemeasures 135 beats per minute. FINDINGS: TONE: 1 or more episodes of activity extension and flexion of extremity or opening and closing of the hand [Y] 2/2 GROSS BODY MOVEMENTS: 3 or more discrete body or limb movements [Y] 2/2 BREATHING MOVEMENTS: 1 or more episodes of breathing lastingat least 30 seconds [Y] 2/2 CHRISTINE: A single deepest vertical pocket of amniotic fluid greater than 2 cm [Y] 2/2 CHRISTINE: 17.2 cm . This is in upper normal range. Total score: 8/8 US/US OB BPP w non-stress IMPRESSION: NORMAL BIOPHYSICAL PROFILE. Impression dictated by: Ana Michael M.D. 02/16/2025 9:04 AM Dictation Location: [place] [address] Electronically authenticated by: [id number] Y Date: 9:04 Dictated By: Ana Michael M.D. Signed By:02/16/25905 DD/ 3 TD/TT: Welfare Administrator: Authorizing ProviderResult TypeResult StatusCorey Maxim DOCLINISYNC IMAGING Edited Result - Final documented in this encounter Visit Diagnoses Not on filedocumented in this encounter Care Teams Team MemberRelationshipSpecialtyStart DateEnd Date Buffy Diane MD [address] [place] [address] PCP - GeneralFamily Medicine09/19/22 Kayla Kahn DO [address] [place] [address] Referring Physician09/19/22documented as of this encounter
--- OUTSIDE RECORDS SUMMARY | 2025-02-18 22:44 | XMS_ITS | Clinical Summary ---
Author Organization [facility] Address [address] [place] [address] Care Team Providers Care Retail Sales Clerk Name Role Phone Sri Ramírez MD Primary Care Provider [phone] Kayla Kahn DO Unavailable [phone] Allergies Active AllergyReactionsCriticalityNoted DateCommentsBacitracin-Polymyxin B 09/06/2022 Other Reaction(s): Unknown BwaggyuiwRivdongGfn85/27/2023 Caused heart palpitations and increased anxiety FinfuhinxysbQwtqs98/27/2023 groggy Other Reaction(s): Sleepy Medications MedicationSigDispense QuantityRefillsLast [...] and 1 application before bedtime. 60 g 110//715728/6Active terconazole (Terazol 7) 0.4 % vaginal cream Indications:Yeast infectionInsert 1 applicator into the vagina at bedtime for 7 days 45 g 02/09/20240413/09/2024Expired metroNIDAZOLE (Flagyl) 500 MG tablet Indications:BV (bacterial vaginosis)Take 1 tablet (500 mg) by mouth in the morning and 1 tablet (500 mg) before bedtime. Do all this for 7 days. Do not drink alcohol while taking this medication. 14 tablet 511/09/2024Expired Active Problems ProblemNoted DateDiagnosed DateBladder pain07/18/2024Gross iilrsbrzc40/07/2025 Bacterial infection due to luqlpohpwq02/04/2024Vaginal odor02/15/2024Urinary tract infection without ibujpfvdn44/04/2024acterial mqpgvkitc56/04/2024 Adjustment disorder with mixed anxiety and depressed mood09/06/2022menorrhea 09/06/20222281Pnsktav60/27/2023ipolar affective disorder, currently depressed, /27/2023omplication of intrauterine device (IUD)09/06/2022Inattention 09/06/2022Irregular xqgzqy2409/06/2022Irritable bowel syndrome with diarrhea 09/06/2022Menstrual cramp09/06/2022ain in ljfemk5209/06/2022eneralized anxiety prawotmw78/27/2023ost-traumatic stress rehsmnbc43/27/2023Slow transit vjmynlfbiqmu63/27/2023nxiety during ([facility])03/26/2020Depression affecting auzggxqnz44/14/2020History of /14/2020Calculus of kidney 07/25/2013Estimated Date of GvfclbflZmnwawayYgb44/14/2025ased on last menstrual period of 06/19/2024 Encounters DateTypeDepartmentCare BhrwJapedzjbtmn22/06/2025Clinisync Result Encounter [facility] External Department Unsolicited Trista Pan, DO 02/15/2025linisync Result Encounter [facility] External Department Unsolicited Trista Pan, DO 02/15/2025Telephone [facility] [address] [place] [phone] Trista Pan, DO 02/09/2025Telephone [facility] [address] [place] [phone] Nasreen Figueroa MA 02/07/2025 10:20 AM EDTRoutine [facility] [address] [place] [address] Trista Pan DO Third trimester ([facility]); 33 weeks gestation of ([facility])5Bamboo flowsheet [facility] [address] [place] [address] Trista Pan DO 5Clinisync Result Encounter [facility] External Department Unsolicited Provider, Generic External Data 01/30/2025bstract [facility] [address] [place] [phone] Ameena Booker MA 01/24/2025 10:00 AM EDTRoutine [facility] [address] [place] [phone] Trista Pan DO Encounter for ultrasound recheck of choroid plexus cyst, antepartum ([facility]); Third trimester ([facility]); 31 weeks gestation of ([facility]); size inconsistent with dates ([facility])01/24/2025 9:30 AM EDTAncillary Procedure [facility] [address] [place] [address] [place] [phone] Encounter for ultrasound recheck of choroid plexus cyst, antepartum ([facility])01/09/2025 10:10 AM EDTRoutine [facility] [address] [place] [phone] Padmini Gunter, VIC Third trimester ([facility]); 29 weeks gestation of ([facility]); Choroid plexus cyst01/09/2025amboo flowsheet [facility] [address] [place] [phone] Padmini Gunter NP 01/05/2025bstract [facility] [address] [place] [phone] Trista Pan DO 12/28/2024 3:20 PM [place]out[place] [phone] Daja Ryan PA Second trimester ([facility]); 27 weeks gestation of ([facility])5Bamboo [place] [phone] Daja Ryan PA 5Clinisync Result Encounter [facility]OMS External Department Unsolicited Provider, Generic External Data 12/05/2024 1:50 PM [place] [phone] Trista Pan DO Acne, unspecified acne type (Primary Dx); Second trimester ([facility]); 24 weeks gestation of ([facility]); Diabetes mellitus screening; Screening, , for anatomic survey ([facility])5Clinisync Result Encounter [facility]OMS External Department Unsolicited Provider, Generic External Data 12/05/2024[place] [phone] Estela Phipps LPN Encounter for follow-up ultrasound of anatomy ([facility])from Last 3 Months Immunizations ImmunizationAdministration DatesNext NtsXJK261DTaP, Jsddnfjyiis42/17/2003 ,05/15/1998,1997,1997,1997HPV, Fnwrvzofkmsl21/22/2011, 02/05/2010,11/26/2009Hep B, Adolescent or Oakmfvmxh82/23/1998,1997HiB, vvimahbdbve02/27/1998,1997Hib (PRP-T)05/15/1998Hib / Hep B06IPV 10/27/2002,05/15/1998,1997,1997MMR10/27/2002,05/15/1998Tdap 11/26/2009 Family History Medical HistoryRelationNameCommentsNo Known ProblemsBrother2 brothersNo Known ProblemsDaughterCancerMotherbernadetteMental illnessMotherbernadettemanic depressive bipolar disorderBreast cancerPaternal GrandmotherdebCancerPaternal PxxbqsifrimofhBlecobkkXrcwFrlfymDjnlnzfyOrydxzh0LccdgjqsRuudbZizragNnjkmJfafprry GrandmotherMotherbernadetteAlivePaternal GrandmotherdebAlive Social History Tobacco UseTypesPacks/DayYears UsedDateSmoking Tobacco: FormerCigarettes0.55 Smokeless Tobacco: Never Tobacco Cessation:Counseling Given: Not Answered Alcohol UseStandard Drinks/WeekCommentsNever0 (1 standard drink = 0.6 oz pure alcohol)caffeine: 1-2 cups coffee or energy drink ibwfigmyuidzK6033 Health LiteracyAnswerDate RecordedHow often do you need [...] relatives?Twice a week09/24/2023How often do you attend catholic or buddhism services?Patient /13/2024o you belong to any clubs or organizations such as catholic groups, unions, fraternal or athletic groups, or school groups?No09/24/2023How often do you attend meetings of the clubs or organizations you belong to?Never09/24/2023re you , , , , never , or living with a partner?Patient jnmiijgt95/13/2024 AUDIT-CAnswerDate RecordedQ1: How often do you have [...] at all 09/24/2023HQ-2AnswerDate RecordedPatient Health Questionnaire-2 Score0 07/18/2024Fin[facility] [place] [facility] Occup[facility] Health - Occupational Stress QuestionnaireAnswerDate [...] homeless or living in a correction (including now)?No09/24/2023Estimated Date of Delivery MjhfvsifAdx07/14/2025Based on last menstrual period of 06/19/2024Sex and Gender InformationValueDate RecordedSex Assigned at BirthNot on fileLegal SexFemale 06/25/2022 6:40 PM EDTGender IdentityNot on fileSexual OrientationNot on file Last Filed Vital Signs Vital SignReadingTime TakenCommentsBlood Okzzyvga994/6810/ 10:23 AM EDT Gjwks1558 8:15 AM TSZYzmanstnetj69 ??C (95 ??F)06/10/2024 8:03 AM EST Respiratory Rtdd3927 8:15 AM EDTOxygen Mlmotmeykj21%07/18/2024 8:15 AM EDTInhaled Oxygen Concentration--Rdynmi13.7 kg (175 lb 12.8 oz)02/07/2025 10:23 AM UJAEldurd921.2 cm (5' 7 )07/18/2024 8:15 AM EDTBody Mass Index27.53007/18/2024 8:15 AM EDT Plan of Treatment DateTypeDepartmentCare Team (Latest Contact Info)Ioxeukmivci82/11/2025 10:30 AM ESTRoutine [facility] [address] [place] [phone] Trista Pan, [address] [place] [address] Health MaintenanceDue DateLast DoneCommentsCOVID-19 Vaccine ( season) /, 09/11/2020Influenza Vaccine (#1)2024Pneumococcal Vaccine: Pediatrics (0 to 5 Years) and At-Risk Patients (6 to 64 Years)Aged Out No longer eligible based on patient's age to complete this topic Procedures Procedure NamePriorityDate/TimeAssociated DiagnosisCommentsUS OB BPP W NON-FWELEF8102/16/2025 9:04 AM EST URINE CULTURE, SKTMFLVOxzanqo24/05/2025 11:45 AM EST [facility] URINE MICROSCOPIC BERBGyyakgy42/05/2025 11:45 AM EST [facility] UA (CLEAN/CATCH) DIGITAL ADVERTISING SPECIALIST/MICRO IF IND.Eotxgca0702/15/2025 11:45 AM EST POCT URINALYSIS WCTCQIWGXpahiji79/28/2025 10:33 AM EDT 33 weeks gestation of ([facility]) US OB VLLNCL4802/02/2025 8:33 AM EDT POCT URINALYSIS ADTZEICDKvprqcd66/14/2025 10:23 AM EDT 31 weeks gestation of ([facility]) US OB LIMITED 1+ WFRQTNUAeqwvyy56/14/2025 10:06 AM EDT Encounter for ultrasound recheck of choroid plexus cyst, antepartum ([facility]) POCT URINALYSIS UOLTTBJFCbhizvh73/29/2025 10:19 AM EDT Third trimester ([facility]) POCT URINALYSIS OTJPFZEQZaptwck71/17/2025 3:47 PM EDT Second trimester ([facility]) 27 weeks gestation of ([facility]) ALL CBC WITH AUTO LXFEDgubjse36/30/2025 10:15 AM EDT GLUCOSE 1 KABLJawscfl85/30/2025 10:15 AM EDT US OB FOLLOW UP12/05/2024 2:33 PM EDT POCT URINALYSIS QCVUABJEAptmdlh53/25/2025 2:15 PM EDT Second trimester ([facility]) from Last 3 Months Results * US OB BPP W NON-STRESS (02/16/2025 9:04 AM EST)Anatomical Region LateralityModalityOtherSpecimen (Source)Anatomical Location / Laterality Collection Method / VolumeCollection TimeReceived Time02/16/2025 9:04 AM EST Narrative 02/16/2025 9:06 AM EST [facility] ?[address] ? [place] [address] ? Ultrasound Report ? Signed ? Patient: HOLLEY,FAHEEM R ?MR#: [id number] ?? : 1995 ?Acct:[id number] ?? Age/Sex: 30 / F ?ADM Date: ?? Loc: [facility] ??256-1 ? Attending Dr: Trista Pan D.O. ? Ordering Physician: Trista Pan D.O. ?? Date of Service: 02/15/25 ?? Procedure(s): US OB BPP w non-stress ?? Accession Number(s): [id number] ? cc: SRI RAMÍREZ ; Trista Pan D.O. ? [facility] ? [address] ? [place] [address] ? Patient Name: ?? FAHEEM BELCHER ? MRN: [facility]:[id number] ? date: 1995 ?Sex: F ?? Assigned Patient Location: [facility] ?? Current Patient Location: ? Accession/Order Number: [id number] ?? Exam Date: 02/15/2025 ??14:44 ?Report Date: [...] Dictation Location: RADIO-PC-02 ? Electronically authenticated by: [id number] ??Y ?? Date: 02/16/2025 ??09:04 ? Dictated By: ?Ana Michael M.D. ? Signed By: ?02/16/25 0906 ? DD/ 0904 ? TD/TT: ? Assembler Dc Field Yoke: Procedure Note Radiology, Radiologist, MD - 02/16/2025 [place] [address] Ultrasound Report Signed Patient: FAHEEM BELCHER RMR#: [id number] : 1995Acct:[id number] Age/Sex: 30 / FADM Date: Loc: [facility] 256-[address]: Trista Pan D.O. Ordering Physician: Trista Pan D.O. Date of Service: 02/15/25 Procedure(s): US OB BPP w non-stress Accession Number(s): [id number] cc: SRI RAMÍREZ ; Trista Pan D.O. The [place] [address] Patient Name: FAHEEM BELCHER MRN: [id number] date: 1995 Sex: F Assigned Patient Location: [facility] Current Patient Location: Accession/Order Number: [id number] Exam Date: 02/15/2025 14:44 Report Date: 02/16/2025 [...] Michael M.D. 02/16/2025 9:04 AM Dictation Location: [place] [address] Electronically authenticated by: [id number] Y Date: 509:04 Dictated By: Ana Michael M.D. Signed By:02/16/25905 DD/ 3 TD/TT: Assembler Dc Field Yoke: Authorizing ProviderResult TypeResult StatusCorey Maxim DOCLINISYNC IMAGING Edited Result - Final * URINE CULTURE, ROUTINE (02/15/2025 11:45 AM EST)ComponentValueRef RangeTest MethodAnalysis TimePerformed AtPathologist SignatureURINE CULTURE, ROUTINE ??Urine Culture, Routine TBHURINE CULTURE, ROUTINECulture shows less than 10,000 colony forming units of bacteria perTBHURINE CULTURE, ROUTINEmilliliter of urine. This colony count is not generally consideredTBHURINE CULTURE, ROUTINEto be clinically significant. TBHURINE CULTURE, ROUTINEPerformed at: [facility] HealthTBHURINE CULTURE, [id number] [place], [place] [id number] CULTURE, ROUTINELab Director: Anthony Harrison PhD, Phone: [phone] (Source)Anatomical Location / LateralityCollection Method / VolumeCollection [...] Maxim DOCLINISYNCFinal Result Performing OrganizationAddressCity/State/ZIP CodePhone Number [facility] * (ABNORMAL) [facility] UA (CLEAN/CATCH) DIGITAL ADVERTISING SPECIALIST/MICRO IF IND. (02/15/2025 11:45 AM EST) ComponentValueRef [...] Maxim DOCLINISYNCFinal Result Performing OrganizationAddressCity/State/ZIP CodePhone Number [facility] TB * POCT urinalysis dipstick manually resulted (02/07/2025 [...] Location / LateralityCollection Method / VolumeCollection TimeReceived GuwfIiqhv62/28/2025 10:33 AM EDT Narrative Authorizing ProviderResult TypeResult StatusCorey Maxim DOPOINT OF CARE TEST ENTER/EDIT ORDERABLESFinal Result * US OB GROWTH (02/02/2025 8:33 AM EDT)Anatomical RegionLateralityModalityOther Specimen (Source)Anatomical Location / LateralityCollection Method / Volume Collection TimeReceived Time02/02/2025 8:33 AM EDT Narrative 02/02/2025 8:35 AM EDT [facility] ?[address] ? [place] [address] ? Ultrasound Report ? Signed ? Patient: FAHEEM BELCHER ?MR#: [id number] ?? : 1995 ?Acct:[id number] ?? Age/Sex: 29 / F ?ADM Date: 02/01/25 ?? Loc: US ? Attending Dr: Trista Pan D.O. ? Ordering Physician: Trista Pan D.O. ?? Date of Service: 02/01/25 ?? Procedure(s): US OB growth ?? Accession Number(s): [id number] ? cc: SRI RAMÍREZ ; Trista Pan D.O. ? [facility] ? [address] ? [place] [address] ? Patient Name: ?? FAHEEM BELCHER ? MRN: [id number] ? date: 1995 ?Sex: F ?? Assigned Patient Location: US ?? Current Patient Location: ? Accession/Order Number: [id number] ?? Exam Date: 02/01/2025 ??13:36 ?Report Date: [...] M.D. ??02/02/2025 8:33 AM ? Dictation Location: [place] [address] ? Electronically authenticated by: [id number] ??Y ?? Date: 02/02/2025 ??08:33 ? Dictated By: ?Ana Michael M.D. ? Signed By: ?02/02/25 0835 ? DD/ 0833 ? TD/TT: ? Assembler Dc Field Yoke: Procedure Note Radiology, Radiologist, - 02/02/[address] [address] Ultrasound Report Signed Patient: FAHEEM BELCHER RMR#: [id number] : 1995Acct:[id number] Age/Sex: 29 / FADM Date: 02/01/25 Loc: US Attending Dr: Trista Pan D.O. Ordering Physician: Trista Pan D.O. Date of Service: 02/01/25 Procedure(s): US OB growth Accession Number(s): [id number] cc: SRI RAMÍREZ ; Trista Pan D.O. [place] [id number] Patient Name: FAHEEM BELCHER MRN: [id number] date: 1995 Sex: F Assigned Patient Location: US Current Patient Location: Accession/Order Number: [id number] Exam Date: 02/01/2025 13:36 Report Date: 02/02/2025 [...] Michael M.D. 02/02/2025 8:33 AM Dictation Location: [place] [address] Electronically authenticated by: [id number] Y Date: 508:33 Dictated By: Ana Michael M.D. Signed By:02/02/25 0835 DD/ 0833 TD/TT: Assembler Dc Field Yoke: Authorizing ProviderResult TypeResult StatusGeneric External Data Provider [...] Díaz MD Authorizing ProviderResult TypeResult StatusCorey Maxim [facility] OB US PROCEDURES Final Result * GLUCOSE 1 HOUR (12/10/2024 10:15 AM EDT)ComponentValueRef RangeTest Method Analysis TimePerformed AtPathologist SignatureGLUCOSE 1 MVVO724<130 mg/dLTBH Specimen (Source)Anatomical Location / LateralityCollection Method / Volume Collection TimeReceived Time12/10/2024 10:15 AM EDT12/10/2024 10:16 AM EDT Narrative [facility] - 12/10/2024 11:26 AM EDT Authorizing ProviderResult TypeResult StatusCorematthieu Pan DOLAB BLOOD ORDERABLES Final ResultPerforming OrganizationAddressCity/State/ZIP CodePhone Number [facility] * (ABNORMAL) ALL CBC WITH AUTO DIFF (12/10/2024 10:15 AM EDT)ComponentValueRef RangeTest MethodAnalysis TimePerformed AtPathologist SignatureTBH WBC11.6(H) 4.0 - 11.0 10 3/uLTBHTBH RBC4.14(L)4.20 - 5.40 10 6/uLTBHTBH HGB12.912.0 - 16.0 g/dLTBHTBH HCT38.536.0 - 48.0 %TBHTBH MCV93.081.0 - 99.0 fLTBHTBH MCH31.2 26.7 - 34.0 pgTBHTBH MCHC33.529.9 - 35.2 g/dLTBHTBH RDW13.111.0 - 15.0 %TBHTBH QVG744395 - 450 10 3/uLTBHTBH MPV9.99.5 - 13.5 [...] Performing OrganizationAddressCity/State/ZIP CodePhone Number [facility] * US OB FOLLOW UP (12/05/2024 2:33 PM EDT)Anatomical RegionLateralityModality Radiographic ImagingSpecimen (Source)Anatomical Location / Laterality Collection Method / VolumeCollection TimeReceived Time12/05/2024 2:33 PM EDT Narrative 12/05/2024 2:36 PM EDT [facility] ?[address] ? [place] [address] ? Ultrasound Report ? Signed ? Patient: FAHEEM BELCHER R ?MR#: [id number] ?? : 1995 ?Acct:[id number] ?? Age/Sex: 29 / F ?ADM Date: 12/05/24 ?? Loc: US ? Attending Dr: Padmini Gunter ? Ordering Physician: Padmini Gunter ?? Date of Service: 12/05/24 ?? Procedure(s): US OB follow up ?? Accession Number(s): [id number] ? cc: SRI RAMÍREZ ; Padmini Gunter ? [facility] ? [address] ? [place] [address] ? Patient Name: ?? FAHEEM BELCHER ? MRN: [facility]:[id number] ? date: 1995 ?Sex: F ?? Assigned Patient Location: US ?? Current Patient Location: US ?? Accession/Order Number: [id number] ?? Exam Date: 12/05/2024 ??13:08 ?Report Date: [...] ? Impression dictated by: Elpidio Brush Jr., D.O. ??12/05/2024 2:33 PM ? Dictation Location: [facility] ? Electronically authenticated by: [id number] ??Y ?? Date: 12/05/2024 ??14:33 ? Dictated By: ?Elpidio Brush M.D. ? Signed By: ?12/05/246 ? DD/ 1433 ? TD/TT: ? Assembler Dc Field Yoke: Procedure Note Radiology, Radiologist, MD - 12/05/2024 [place] [address] Ultrasound Report Signed Patient: FAHEEM BELCHER RMR#: [id number] : 1995Acct:[id number] Age/Sex: 29 / FADM Date: 12/05/24 Loc: US Attending Dr: Padmini Gunter Ordering Physician: Padmini Gunter Date of Service: 12/05/24 Procedure(s): US OB follow up Accession Number(s): [id number] cc: SRI RAMÍREZ Kristina The [address] [address] Patient Name: FAHEEM BELCHER MRN: [id number] date: 1995 Sex: F Assigned Patient Location: US Current Patient Location: US Accession/Order Number: [id number] Exam Date: 12/05/2024 13:08 Report Date: 12/05/2024 [...] Jr., D.O. 12/05/2024 2:33 PM Dictation Location: [place] [address] Electronically authenticated by: [id number] Y Date: 4:33 Dictated By: Elpidio Brush M.D. Signed By:12/05/24 1436 DD/ 143 TD/TT: Assembler Dc Field Yoke: Authorizing ProviderResult TypeResult StatusGeneric External Data ProviderIMG XR PROCEDURESFinal Result from Last 3 Months Insurance Care Teams Team MemberRelationshipSpecialtyStart DateEnd Date Sri Ramírez MD [address] [place] [address] PCP - GeneralFamily Medicine09/19/22 Kayla Kahn DO [address] [place] [address] Referring Physician09/19/22
--- OUTSIDE RECORDS SUMMARY | 2025-02-18 22:44 | XMS_ITS | CCD ---
Author Organization [facility] Care Team Providers Care Rubber Molder Name Role Phone Sri Ramírez MD Primary [...] Unavailable Sri Ramírez MD Primary Care Provider [phone] Femi ROQUE, Kayla R Unavailable Sharifa-Nossek HEATING ELEMENT REPAIRER-WATERPROOF BAG CUTTING MACHINE OPERATOR, Daisy M Unavailable SRI RAMÍREZ Primary Care Physician Femi ROQUE, Kayla R Unavailable [phone] Bonita Pinedo Attending Unavailable Bonita Pinedo Attending [...] Attending Unavailable MAXIM, JOSE Attending Unavailable SharifaDomingo HEATING ELEMENT REPAIRER-WATERPROOF BAG CUTTING MACHINE OPERATOR, Daisy Evans Unavailable Allergies Allergy ClassificationReported Allergen(s)Allergy TypeDate of OnsetReaction(s) Facility (20 sources)Bacitracin / Polymyxin B; Translations: [bacitracin-polymyxin B topical]Drug Ewqougg50-38-2680Oeypjzl (qualifier value)[facility] (20 sources)busPIRone; Translations: [buspirone]Drug Ssudqsg67-46-2682Tnxzwbc, Anxiety (finding)[facility] (20 sources)Escitalopram; Translations: [escitalopram]Drug Wihtqao87-55-2701 Other, Drowsy (finding)[facility] (2 sources)busPIRone; Translations: [BuSpar][facility] ([facility] sources)Escitalopram; Translations: [Lexapro][facility] (2 sources)Bacitracin-Polymyxin; Translations: [Bacitracin-Polymyxin]Propensity to adverse reactions (disorder)[facility] Medications Current Medications MedicationDrug Class(es)DatesSig (Normalized)Sig (Original)azelaic acid 0.15 mg/mg topical gel (17 sources)Start: 12-05-2024 End: 30-39-3246jzuoope acid (Finacea) 15 % gel Indications: Acne, unspecified acne type Apply 1 application topically in the morning and 1 application before bedtime. 60 g 11 12/05/2024 12/05/2025 Activecephalexin 500 mg oral capsule (3 sources)Cephalosporin AntibacterialStart: 06-10-2024 End: 83-57-2780ulunyuosnb (Keflex) 500 MG capsule Indications: Cellulitis of finger of right hand Take 1 capsule (500 mg) by mouth in the morning and 1 capsule (500 mg) at noon and 1 capsule (500 mg) in the eveningand 1 capsule (500 mg) before bedtime. Do all this for 7 days. 28 capsule 06/10/2024 06/17/2024 ActiveClindamycin (1 source)Lincosamide AntibacterialStart: 03-09-2024 End: 26-83-5802Xrafdylyhpx Phosphate (Xaciato) 2 % gel Indications: Bacterial vaginosis Insert 1 applicator into the vagina at bedtime for 1 day 8 g 03/09/2024 03/10/2024 Activedoxycycline hyclate 100 mg oral capsule (9 sources)Tetracycline-class DrugStart: 02-15-2024 End: 03-63-6373wybzkhzanal (Vibramycin) 100 MG capsule Indications: Bacterial infection due to mycoplasma Take 1 capsule (100 mg) by mouth in the morning and 1 capsule (100 mg) before bedtime. Do all this for 7 days. Take with at least 8 ounces (large glass) of water, do not lie down for 30 minutes after. 14 capsule 02/15/2024 02/22/2024 ActiveStart: 01-11-2024 End: 56-29-5881wbmnxotqppp (Vibramycin) 100 MG capsule Indications: Pelvic pain in female Take 1 capsule (100 mg) by mouth in the morning and 1 capsule (100 mg) before bedtime. Take with at least 8 ounces (large glass) of water, do not lie down for 30 minutes after. 60 capsule 01/11/2024 2024 Activeescitalopram 5 mg oral tablet (4 sources)Serotonin Reuptake InhibitorStart: 46-29-7181yzqkhajvwgpr (LEXAPRO) 5 MG tabletmetroNIDAZOLE 500 mg oral tablet (12 sources)Nitroimidazole AntimicrobialStart: 02-09-2025 End: 22-09-3126tdle 1 tablet by mouth in the morningmetroNIDAZOLE (Flagyl) 500 MG tablet Indications: BV (bacterial vaginosis) Take 1 tablet (500 mg) by mouth in the morning and 1 tablet (500 mg) before bedtime. Do all this for 7 days. Do not drink alcohol while taking this medication. 14 tablet 02/09/2025 02/16/2025 ActiveStart: 05-23-2024 End: 29-77-3576lddfuCZYWXIED (Nuvessa) 1.3 % gel Indications: Vaginal discharge , Vaginal burning Insert 5 g into the vagina 1 time for 1 dose 5 g 05/23/2024 05/23/2024 Discontinued (Other)Start: 03-09-2024 End: 01-68-1611hgjsuQPKLRFUI (Metrogel) 0.75 % vaginal gel Indications: Bacterial vaginosis Insert into the vaginaDaily for 5 days 70 g 03/09/2024 03/14/2024 ActiveStart: 2024 End: 27-98-9255mchw 1 tablet by mouth in the morningmetroNIDAZOLE (Flagyl) 500 MG tablet Indications: BV (bacterial vaginosis) Take 1 tablet (500 mg) by mouth in the morning and 1 tablet (500 mg) before bedtime. Do all this for 7 days. Do not drink alcohol while taking this medication. 14 tablet 2024 02/17/2024 ActiveStart: 01-13-2024 End: 67-28-3350plzw 1 tablet by mouth in the morningmetroNIDAZOLE (Flagyl) 500 MG tablet Indications: BV (bacterial vaginosis) Take 1 tablet (500 mg) by mouth in the morning and 1 tablet (500 mg) before bedtime. Do all this for 7 days. Do not drink alcohol while taking this medication. 14 tablet 01/13/2024 01/27/2024 Discontinuedmoxifloxacin 400 mg oral tablet (2 sources)Quinolone AntimicrobialStart: 02-15-2024 End: 00-53-7513yjiy 1 tablet by mouth once dailymoxifloxacin (Avelox) [...] oral capsule (2 sources)Nitrofuran AntibacterialStart: 09-13-2024 End: 99-00-5100rbas 1 capsule by mouth in the morningnitrofurantoin, macrocrystal-monohydrate, (Macrobid) 100 MG capsule Indications: Urinary tract infection in mother during , antepartum Take 1 capsule (100 mg) by mouth in the morning and 1 capsule (100 mg) before bedtime. Do all this for 7 days. 14 capsule 09/13/2024 09/20/2024 Activeondansetron 4 mg disintegrating oral tablet (20 sources)Serotonin-3 Receptor AntagonistStart: 67-97-0886jpnmsvluthy ODT (Zofran-ODT) 4 MG disintegrating tablet DISSOLVE 1 TABLET on tongue EVERY 8 HOURS NEEDED FOR NAUSEA & FOR VOMITING 08/13/2024 Activepolyethylene glycol 3350 38718 mg powder for oral solution (4 sources)Osmotic LaxativeStart: 06-12-2021 End: 58-04-8887fhrnlrtflsdg glycol (GLYCOLAX) 17 GM/SCOOP powder Take 17 g by mouth daily 1530 g 1 06/12/2021 07/12/2021 Activetamsulosin hydrochloride 0.4 mg oral capsule (4 sources)alpha-Adrenergic BlockerStart: 15-68-6136fven 1 capsule by mouth once dailytamsulosin (FLOMAX) 0.4 MG capsule Take 1 capsule by mouth daily 30 capsule 0 06/12/2021 Activeterconazole 4 mg/ml vaginal cream (2 sources)Azole AntifungalStart: 02-09-2025 End: 67-46-6920aqddzjsadrn (Terazol 7) 0.4 % vaginal cream Indications: Yeast infection Insert 1 applicator into the vagina at bedtime for 7 days 45 g 02/09/2025 02/16/2025 Activeubidecarenone 30 mg oral capsule (20 sources)take 1 capsule by mouth once dailyco-enzyme Q-10 30 MG capsule Take 30 mg by mouth Daily Active Completed/Discontinued Medications MedicationDrug Class(es)DatesSig (Normalized)Sig (Original)atomoxetine 40 mg oral capsule (3 sources)Norepinephrine Reuptake Inhibitor End: 32-99-0497olzo 1 capsule by mouth once dailyatomoxetine (Strattera) 40 MG capsule Take 1 capsule by mouth Daily 01/11/2024 Discontinued (Other) azithromycin 500 mg oral tablet (8 sources)Macrolide AntimicrobialStart: 02-15-2024 End: 75-81-4724jiqp 1 tablet by mouth once dailyazithromycin (Zithromax) 500 MG tablet Indications: Bacterial infection due to mycoplasma Day 1: Take 2 tablets PO onetime dose; Day 2,3,4: Take 1 tablet daily 5 tablet 02/15/2024 04/20/2024 Discontinued (Therapy completed)sertraline 25 mg oral tablet (3 sources)Serotonin Reuptake InhibitorStart: 11-16-2023 End: 35-75-7149jnst 1 tablet by mouth once dailysertraline (Zoloft) 25 MG tablet Indications: Generalized anxiety disorder (CMS/HCC) Take 1 tablet (25 mg) by mouth Daily 30 tablet 1 11/16/2023 01/11/2024 Discontinued (Other) Problems Active Problems Problem ClassificationProblemDateDocumented DateEpisodic/ChronicAdjustment disorders (20 sources)Adjustment disorder with mixed anxiety and depressed mood; Translations: [Adjustment disorder with mixed anxiety and depressed mood]Onset: 623756-18-8880UhnvxnbHfuabrbo reactions (1 source)Unspecified contact dermatitis, unspecified cause; Translations: [UNS CONTACT DERMATITIS UNS CAUSE]Onset: 11-34-7314KpqvkhaoFodeuwp disorders (20 sources)Anxiety; Translations: [Anxiety disorder, unspecified]Onset: 210550-38-3742SctsjojUkohjtzlfosgw and screening for infectious disease (3 sources)Encounter for screening for human papillomavirus (HPV); Translations: [Patient encounter status]Onset: 196555-26-6155ZjyvadesRnqaivnln disorders (20 sources)Amenorrhea; Translations: [Amenorrhea, unspecified]Onset: 09-06-2022 86-38-0783WqmdwwlVhds disorders (20 sources)Bipolar affective disorder, currently depressed, moderate; Translations: [Bipolar disorder, currentepisode depressed, moderate]Onset: 316453-11-7124FbmwusfFlrjejtnhota breast conditions (2 sources)Lump in lower outer quadrant of left breast; Translations: [Unspecified lump in the left breast, lower outer quadrant]32-37-0638Gjhwglmg Other aftercare (2 sources)Surgical follow-up; Translations: [Encounter for follow-up examination after completed treatment for conditions other than malignant neoplasm]57-80-7742ByfcehhgNajtc aftercare (2 sources)Removal of sutures done; Translations: [Encounter for removal of sutures]41-92-3894OhskwuutCecyq complications of (2 sources)Urinary tract infection in ; Translations: [Unspecified infection of urinary tract in , unspecified trimester]09-13-2024 EpisodicOther complications of (2 sources) size does not accord with dates; Translations: [Uterine size- date discrepancy, unspecified trimester]32-45-8625RilltxncNngvs diseases of kidney and ureters (3 sources)Hydronephrosis; Translations: [Hydronephrosis with renal and ureteral calculous obstruction]EpisodicOther female genital disorders (2 sources)Vaginal discharge; Translations: [Other specified noninflammatory disorders of vagina]91-52-3994XhwdzdvuWzeyj female genital disorders (2 sources)Burning sensation of vagina; Translations: [Other specified conditions associated with female genital organs and menstrual cycle]05-23-2024 EpisodicOther gastrointestinal disorders (20 sources)Irritable bowel syndrome with diarrhea; Translations: [Irritable bowel syndrome with diarrhea]Onset: 283493-74-9851JwcidodRmthm inflammatory condition of skin (3 sources)Pruritus, unspecified; Translations: [PRURITUS UNSPECIFIED]Onset: 63-39-1331VwdqcztiQgvmr nervous system disorders (20 sources)Inattention; Translations: [Attention and concentration deficit] Onset: 959737-74-5287EoqaxlfAhbda nervous system disorders (2 sources)Choroid plexus cyst; Translations: [Cerebral cysts]38-79-5437Zbosdyj Other and delivery including normal (20 sources); Translations: [Encounter for supervision of normal , unspecified, unspecified trimester]72-28-7978PzjkdthfWwmto screening for suspected conditions (not mental disorders or infectious disease) (14 sources)Encounter for screening for malignant neoplasm of cervix; Translations: [Patient encounter status]Onset: 94-50-9740WilcsieyUrhxa skin disorders (2 sources)Acne; Translations: [Acne, unspecified]78-44-4074YohhvuwxYvmolzna codes; unclassified (2 sources)Gestation period, 12 weeks; Translations: [12 weeks gestation of ]70-84-6711AlecbxpeVwjjisoz codes; unclassified (2 sources)Gestation period, 14 weeks; Translations: [14 weeks gestation of ]40-09-6441SdijujppFzarnelk codes; unclassified (2 sources)Gestation period, 16 weeks; Translations: [16 weeks gestation of ]59-97-9213RjfpygneQewiwvna codes; unclassified (2 sources)Gestation period, 20 weeks; Translations: [20 weeks gestation of ]42-34-4196OqegdrlrTjgzjeru codes; unclassified (2 sources)Gestation period, 24 weeks; Translations: [24 weeks gestation of ]12-74-6813FtutsnhvRwoxoxae codes; unclassified (2 sources)Gestation period, 27 weeks; Translations: [27 weeks gestation of ]89-76-3212RfurghqiFzrfrhga codes; unclassified (2 sources)Gestation period, 29 weeks; Translations: [29 weeks gestation of ]72-66-3593HutlhqwdOosoizbv codes; unclassified (2 sources)Gestation period, 31 weeks; Translations: [31 weeks gestation of ]50-27-7807MxrrmouvRjsaweck codes; unclassified (2 sources)Gestation period, 33 weeks; Translations: [33 weeks gestation of ]88-78-3887OzndfuunMgoy and subcutaneous tissue infections (2 sources)Cellulitis of finger of right hand; Translations: [Cellulitis of right finger]67-82-0799PcahenvwUgxwlsomwzou (11 sources)Pain in pelvis; Translations: [Pain in pelvis]Onset: 09-06-2022 09-06-2022 Past or Other Problems Problem ClassificationProblemDateDocumented DateEpisodic/ChronicAbdominal pain (20 sources)Suprapubic pain; Translations: [Pelvic and perineal pain]Onset: 41-67-3852NxxbzxlvZnssensgh infection; unspecified site (20 sources)Mycoplasma infection; Translations: [Mycoplasma infection, unspecified site]Onset: 868811-14-7767JrfqygidMqijdpzg of urinary tract (20 sources)Kidney stone; Translations: [Calculus of kidney]Onset: 07-25-2013 95-75-0444MttguujjSdiwdxezcrpq of device; implant or graft (20 sources)Disorder of intrauterine contraceptive device; Translations: [Unspecified complication of genitourinary prosthetic device, implant and graft, initial encounter]Onset: 654051-31-3367YoaihpvaTklsjccyntmpz symptoms and ill-defined conditions (20 sources)Dysuria; Translations: [Dysuria]Onset: 53-47-3664Cgieecdk Inflammatory diseases of female pelvic organs (20 sources)Bacterial vaginosis; Translations: [Acute vaginitis]Onset: 477531-38-0888ShaayzduZahww complications of (20 sources)Anxiety in ; Translations: [Other mental disorders complicating , unspecified trimester]Onset: EpisodicOther complications of (20 sources)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 ; Translations: [Other mental disorders complicating , unspecified trimester]Onset: 414642-76-2316DsvxdxjpXymuv complications of (20 sources)Other mental disorders complicating , unspecified trimester; Translations: [Mental disorders of mother, antepartum condition or complication]Onset: 610197-88-3783MstfxsqjVdlms female genital disorders (20 sources)Vaginal odor; Translations: [Other specified noninflammatory disorders of vagina]Onset: 355990-20-5639GozxubhpEtibb gastrointestinal disorders (20 sources)Slow transit constipation; Translations: [Slow transit constipation] Onset: 527441-09-8164SbgfuwicUxako infections; including parasitic (20 sources)History of chlamydial infection; Translations: [Personal history of other infectious and parasitic diseases]Onset: 485980-94-4495Igsyaztz Urinary tract infections (20 sources)Cystitis, unspecified with hematuria; Translations: [Urinary tract infectious disease]Onset: 935662-88-7992Kbltwcsk Results Test NameValueInterpretationReference RangeFacilityUS OB BPP W NON-STRESS on 36-86-9066[place] [address] Ultrasound Report Signed Patient: FAHEEM BABB MR#: [id number] : 1995 Acct:[id number] Age/Sex: 30 / F ADM Date: Loc: [facility] 256-[address]: Jose Pan D.O. Ordering Physician: Jose Pan D.O. Date of Service: 02/15/25 Procedure(s): US OB BPP w non-stress Accession Number(s): [id number] cc: SRI RAMÍREZ ; Jose Pan D.O. The [place] [address] Patient Name: FAHEEM BABB MRN: [id number] date: 1995 Sex: F Assigned Patient Location: [facility] Current Patient Location: Accession/Order Number: [id number] Exam Date: 02/15/2025 14:44 Report Date: 02/16/2025 09:04 At the request of: JOSE PAN DO Procedure: US OB BPP w non-stress BIOPHYSICAL PROFILE: CLINICAL INFORMATION: abdominal pain COMPARISON: 02/01/2025 There is a single live intrauterine gestation in cephalic presentation. The reported gestational age is 34 weeks 3 days. The heart rate measures 135 beats per minute. FINDINGS: TONE: 1 or more episodes of activity extension and flexion of extremity or opening and closing of the hand [Y] 2/2 GROSS BODY MOVEMENTS: 3 or more discrete body or limb movements [Y] 2/2 BREATHING MOVEMENTS: 1 or more episodes of breathing lasting at least 30 seconds [Y] 2/2 CHRISTINE: A single deepest vertical pocket of amniotic fluid greater than 2 cm [Y] 2/2 CHRISTINE: 17.2 cm . This is in upper normal range. Total score: 8/8 US/US OB BPP w non-stress IMPRESSION: NORMAL BIOPHYSICAL PROFILE. Impression dictated by: Ana Michael M.D. 02/16/2025 9:04 AM Dictation Location: [place] [address] Electronically authenticated by: [id number] Y Date: 02/16/2025 09:04 Dictated By: Ana Michael M.D. Signed By: 02/16/25905 DD/ 3 TD/TT: Product Safety Engineer:CHRISadiologmatthieu, Radiologist, - 02/16/2025 [place] [address] Ultrasound Report Signed Patient: FAHEEM BABB MR#: [id number] : 1995 Acct:[id number] Age/Sex: 30 / F ADM Date: Loc: [facility] 256-[address]: Jose Pan D.O. Ordering Physician: Jose Pan D.O. Date of Service: 02/15/25 Procedure(s): US OB BPP w non-stress Accession Number(s): [id number] cc: SRI RAMÍREZ ; Jose Pan D.O. [facility] [place] [address] Patient Name: FAHEEM BABB MRN: [id number] date: 1995 Sex: F Assigned Patient Location: [facility] Current Patient Location: Accession/Order Number: [id number] Exam Date: 02/15/2025 14:44 Report Date: 02/16/2025 09:04 At the request of: JOSE PAN DO Procedure: US OB BPP w non-stress BIOPHYSICAL PROFILE: CLINICAL INFORMATION: abdominal pain COMPARISON: 02/01/2025 There is a single live intrauterine gestation in cephalic presentation. The reported gestational age is 34 weeks 3 days. The heart rate measures 135 beats per minute. FINDINGS: TONE: 1 or more episodes of activity extension and flexion of extremity or opening and closing of the hand [Y] 2/2 GROSS BODY MOVEMENTS: 3 or more discrete body or limb movements [Y] 2/2 BREATHING MOVEMENTS: 1 or more episodes of breathing lasting at least 30 seconds [Y] 2/2 CHRISTINE: A single deepest vertical pocket of amniotic fluid greater than 2 cm [Y] 2/2 CHRISTINE: 17.2 cm . This is in upper normal range. Total score: 8/8 US/US OB BPP w non-stress IMPRESSION: NORMAL BIOPHYSICAL PROFILE. Impression dictated by: Ana Michael M.D. 02/16/2025 9:04 AM Dictation Location: [place] [address] Electronically authenticated by: [id number] Y Date: 02/16/2025 09:04 Dictated By: Ana Michael M.D. Signed By: 02/16/25905 DD/ 3 TD/TT: Product Safety Engineer: [facility] HOSPITALGabriella HealthcareRadiology Study observation (narrative)NOMS HealthcareUS OB BPP W NON-STRESSOrdered By: Radiologist Radiology on 73-43-7459GDZA Healthcare Work Phone: tbh UA (CLEAN/CATCH) 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 IF IND.on 02-15-2025 BILIRUBIN URINENegativeNEGATIVENOMS HealthcareBLOOD URINENegativeNEGATIVENOMS HealthcareClarity (U)CLEARCLEARNOMS HealthcareColor (U)LT. YELLOWYELLOWNOMS HealthcareGLUCOSE URINE UANegativeNEGATIVE mg/dLNOWY HealthcareInterpretation and review of laboratory resultsAbnormalNOMS HealthcareKetones Ql (U)Negative NEGATIVE mg/dLNOMS HealthcareLeukocyte esterase Test strip Ql (U)TRACEAbnormal NEGATIVENOMS HealthcareNITRITE URINENegativeNEGATIVENOMS HealthcarepH (U)7.0 [pH]5.0 - 9.0NOMS HealthcarePROTEIN URINENegativeNEG/TRACE mg/dLNOMS Healthcare SPECIFIC GRAVITY URINE1.0101.005 - 1.025NOMS HealthcareURINE MICROSCOPIC INDICATEDYESNOMS HealthcareUROBILINOGEN URINE0.2 EU/dL0.2 - 1.0 EU/dLNOMS HealthcareCLINISYNCNOMS HealthcareUrinalysis macro (dipstick) panel (U)on 42-17-9908Hplittwfe, UANegativeNegative - 4(70) +++ mg/dLNOMS HealthcareBlood, UANegativeNegative - 50 Allen/mcLNOMS HealthcareClarity, UAClearNOMS Healthcare Color, UAYellowNOMS HealthcareGlucose, UANegativeNegative - 2000(110) ++++ mg/dL NOMS HealthcareInterpretation and review of laboratory resultsNormalNOMS HealthcareKetones, UANegativeNegative - 160(16) ++++ mg/dLNOMS Healthcare Leukocytes, UANegativeNegative - 500+++ Andrei/mcLNOMS HealthcareNitrite, UA NegativeNegative - PositiveNOMS HealthcarepH, UA6.55 - 9NOMS HealthcareProtein, UANegativeNegative - 1999(20) ++++ mg/dLNOMS HealthcareSpec Grav, UA1.0101 - 1.03NOMS HealthcareUrobilinogen, UA1.00.2 - 12 mg/dLNOMS HealthcareNOMS HealthcareUS OB GROWTHon 17-78-4448Uir [place] [address] Ultrasound Report Signed Patient: FAHEEM BABB MR#: [id number] : 1995 Acct:[id number] Age/Sex: 29 / F ADM Date: 02/01/25 Loc: US Attending Dr: Jose Pan D.O. Ordering Physician: Jose Pan D.O. Date of Service: 02/01/25 Procedure(s): US OB growth Accession Number(s): [id number] cc: SRI RAMÍREZ Corey D.O. [facility] [place] [address] Patient Name: FAHEEM BABB MRN: [id number] date: 1995 Sex: F Assigned Patient Location: [place] Current Patient Location: Accession/Order Number: [id number] Exam Date: 02/01/2025 13:36 Report Date: 02/02/2025 [...] Michael M.D. 02/02/2025 8:33 AM Dictation Location: [place] [address] Electronically authenticated by: [id number] Y Date: 02/02/2025 08:33 Dictated By: Ana Michael M.D. Signed By: 02/02/25834 DD/ 2 TD/TT: Product Safety Engineer:TBHRadiology, Radiologist, MD - 02/02/2025 [place] [address] Ultrasound Report Signed Patient: FAHEEM BABB MR#: [id number] : 1995 Acct:[id number] Age/Sex: 29 / F ADM Date: 02/01/25 Loc: US Attending Dr: Jose Pan D.O. Ordering Physician: Jose Pan D.O. Date of Service: 02/01/25 Procedure(s): US OB growth Accession Number(s): [id number] cc: SRI RAMÍREZ Corey D.O. The [address] [address] Patient Name: FAHEEM BABB MRN: [id number] date: 1995 Sex: F Assigned Patient Location: US Current Patient Location: Accession/Order Number: [id number] Exam Date: 02/01/2025 13:36 Report Date: 02/02/2025 [...] Michael M.D. 02/02/2025 8:33 AM Dictation Location: [facility] Electronically authenticated by: [id number] Y Date: 02/02/2025 08:33 Dictated By: Ana Michael M.D. Signed By: 02/02/25834 DD/ 2 TD/TT: Product Safety Engineer: PABLITO MeyersRadiology Study observation (narrative)[facility] OB GROWTHOrdered By: Radiologist Radiology on 85-47-1267REOJSaint Joseph Health Center Work Phone: US OB LIMITED 1+ FETUSESon 29-26-3352RR OB LIMITED 1+ FETUSESFINDINGS: Comparison made with [...] TRANSCRIBED BY: ELECTRONICALLY SIGNED BY: Elpidio Díaz MDNormalNot AvailableComment on above:Order Comment: US OB REEVAL ABN Estimated Date of Delivery: 03/26/25 Gestational Age as of 01/24/2025: 07p2hHukntrxgxa macro (dipstick) panel (U)on 31-00-7163Fomrwbrck, UANegativeNegative - 4(70) +++ mg/dLNOMS HealthcareBlood, UANegativeNegative [...] mg/dLNOMS HealthcareNOMS HealthcareUrinalysis macro (dipstick) panel (U)on 30-46-1375Srefiytgc, UA NegativeNegative - 4(70) +++ mg/dLNOMS HealthcareBlood, [...] mg/dLNOMS HealthcareNOMS HealthcareUrinalysis macro (dipstick) panel (U)on 63-63-5624Zxgxezuuf, UANegativeNegative - 4(70) +++ mg/dLNOMS HealthcareBlood, UANegativeNegative - 50 Allen/mcLNOMS HealthcareClarity, UAClear NOMS HealthcareColor, UAYellowNOMS HealthcareGlucose, UANegativeNegative - 2000(110) ++++ mg/dLNOMS HealthcareInterpretation and review of laboratory resultsNormalNOMS HealthcareKetones, UANegativeNegative - 160(16) ++++ mg/dLNOMS HealthcareLeukocytes, UANegativeNegative - 500+++ Andrei/mcLNOMS Healthcare Nitrite, UANegativeNegative - PositiveNOMS HealthcarepH, UA6.55 - 9NOMS HealthcareProtein, UANegativeNegative - 2000(20) ++++ mg/dLNOMS HealthcareSpec Grav, UA1.011 - 1.03NOMS HealthcareUrobilinogen, UA1.00.2 - 12 mg/dLNOMS HealthcareNOMS HealthcareGLUCOSE 1 HOURon 02-57-6163Zhtwhju [Mass/Vol]124 mg/dL NINF - 130 mg/dLNOMS HealthcareCLINISYNCNOMS HealthcareUS for multiple gestation limitedon 60-19-5150KgaC[place], [place] [address] Ultrasound Report Signed Patient: FAHEEM BABB MR#: [id number] : 1995 Acct:[id number] Age/Sex: 29 / F ADM Date: 12/05/24 Loc: US Attending Dr: Jake Gunter Ordering Physician: Jake Gunter Date of Service: 12/05/24 Procedure(s): US OB follow up Accession Number(s): [id number] cc: SRI RAMÍREZ Kristina [address] [address] Patient Name: FAHEEM BABB MRN: [id number] date: 1995 Sex: F Assigned Patient Location: US Current Patient Location: US Accession/Order Number: [id number] Exam Date: 12/05/2024 13:08 Report Date: 12/05/2024 [...] Jr., D.O. 12/05/2024 2:33 PM Dictation Location: [place] [address] Electronically authenticated by: [id number] Y Date: 12/05/2024 14:33 Dictated By: Elpidio Brush M.D. Signed By: 12/05/246 DD/ 32 TD/TT: Product Safety Engineer:TBHRadiology, Radiologist, MD - 12/05/2024 [place] [address] Ultrasound Report Signed Patient: FAHEEM BABB MR#: [id number] : 1995 Acct:[id number] Age/Sex: 29 / F ADM Date: 12/05/24 Loc: US Attending Dr: Jake Gunter Ordering Physician: Jake Gunter Date of Service: 12/05/24 Procedure(s): US OB follow up Accession Number(s): [id number] cc: SRI RAMÍREZ ; Jake Gunter The [address] [address] Patient Name: FAHEEM BABB MRN: [id number]:[id number] date: 1995 Sex: F Assigned Patient Location: US Current Patient Location: US Accession/Order Number: [id number] Exam Date: 12/05/2024 13:08 Report Date: 12/05/2024 [...] Jr., D.O. 12/05/2024 2:33 PM Dictation Location: [place] [address] Electronically authenticated by: [id number] Y Date: 12/05/2024 14:33 Dictated By: Elpidio Brush M.D. Signed By: 12/05/24 143 DD/ 32 TD/TT: Product Safety Engineer: [facility] HealthcareRadiology Study observation (narrative)[facility] HealthcareUS for multiple gestation limitedOrdered By: Radiologist Radiology on 62-30-6227VOUHSaint Joseph Health Center Work Phone: Urinalysis macro (dipstick) panel (U)on 12-05-2024 Bilirubin, UANegativeNegative - 4(70) +++ mg/dLNOMS HealthcareBlood, UANegative Negative - 50 Allen/mcLNOMS HealthcareClarity, UAClearNOMS HealthcareColor, UA YellowNOMS HealthcareGlucose, UANegativeNegative - 2000(110) ++++ mg/dLNOWY HealthcareInterpretation and review of laboratory resultsNormalNOMS Healthcare Ketones, UANegativeNegative - 160(16) ++++ mg/dLNOMS HealthcareLeukocytes, UA NegativeNegative - 500+++ Andrei/mcLNOMS HealthcareNitrite, UANegativeNegative - PositiveNOMS HealthcarepH, UA6.55 - 9NOMS HealthcareProtein, UANegativeNegative - 2000(20) ++++ mg/dLNOMS HealthcareSpec Grav, UA1.011 - 1.03NOMS Healthcare Urobilinogen, UA0.20.2 - 12 mg/dLNOMS HealthcareNOMS HealthcareNo Panel InformationOrdered By: Radiologist Radiology on 87-76-2126BWGX Vertive ([email or web address]) Work Phone: No Panel Informationon 63-02-1655Trlizbhds Study observation (narrative)PABLITO MeyersUS OB ANATOMYon 55-45-7404Gmr[address] [address] Ultrasound Report Signed Patient: FAHEEM BABB MR#: [id number] : 1995 Acct:[id number] Age/Sex: 29 / F ADM Date: 11/07/24 Loc: US Attending Dr: Jose Pan D.O. Ordering Physician: Jose Pan D.O. Date of Service: 11/07/24 Procedure(s): US OB anatomy Accession Number(s): [id number] cc: SRI RAMÍREZ ; Jose Pan D.O. The [address] [address] Patient Name: FAHEEM BABB MRN: [id number] date: 1995 Sex: F Assigned Patient Location: US Current Patient Location: US Accession/Order Number: [id number] Exam Date: 11/07/2024 12:17 Report Date: 11/07/2024 [...] all 4 extremities were surveyed by the residential tech. There are complex cord plexus cysts [...] Michael M.D. 11/07/2024 12:24 PM Dictation Location: [place] [address] Electronically authenticated by: [id number] Y Date: 11/07/2024 12:24 Dictated By: Ana Michael M.D. Signed By: 11/07/24 1226 DD/ 1224 TD/TT: Product Safety Engineer:TBHRadiology, Radiologist, - 11/07/2024 [place] [address] Ultrasound Report Signed Patient: FAHEEM BABB MR#: [id number] : 1995 Acct:[id number] Age/Sex: 29 / F ADM Date: 11/07/24 Loc: US Attending Dr: Jose Pan D.O. Ordering Physician: Jose Pan D.O. Date of Service: 11/07/24 Procedure(s): US OB anatomy Accession Number(s): [id number] cc: SRI RAMÍREZ ; Jose Pan D.O. The [address] [address] Patient Name: FAHEEM BABB MRN: [id number]:[id number] date: 1995 Sex: F Assigned Patient Location: US Current Patient Location: US Accession/Order Number: [id number] Exam Date: 11/07/2024 12:17 Report Date: 11/07/2024 12:24 At the request of: JOSE MAXIM DO Procedure: US OB cervical length CLINICAL [...] all 4 extremities were surveyed by the residential tech. There are complex cord plexus cysts [...] Michael M.D. 11/07/2024 12:24 PM Dictation Location: [place] [address] Electronically authenticated by: [id number] Y Date: 11/07/2024 12:24 Dictated By: Ana Michael M.D. Signed By: 11/07/24 1226 DD/ 1224 TD/TT: Product Safety Engineer: PABLITO Germain OB CERVICAL LENGTHon 65-27-5636Fw[address] [address] Ultrasound Report Signed Patient: FAHEEM BABB MR#: [id number] : 1995 Acct:[id number] Age/Sex: 29 / F ADM Date: 11/07/24 Loc: US Attending Dr: Jose Pan D.O. Ordering Physician: Jose Pan D.O. Date of Service: 11/07/24 Procedure(s): US OB cervical length Accession Number(s): [id number] cc: SRI RAMÍREZ ; Jose Pan D.O. [place] [id number] Patient Name: FAHEEM BABB MRN: [facility]:[id number] date: 1995 Sex: F Assigned Patient Location: Current Patient Location: US Accession/Order Number: [id number] Exam Date: 11/07/2024 12:17 Report Date: 11/07/2024 [...] all 4 extremities were surveyed by the residential tech. There are complex cord plexus cysts [...] Michael M.D. 11/07/2024 12:24 PM Dictation Location: [place] [address] Electronically authenticated by: [id number] Y Date: 11/07/2024 12:24 Dictated By: Ana Michael M.D. Signed By: 11/07/24 1226 DD/ 1224 TD/TT: Product Safety Engineer:TBHRadiology, Radiologist, MD - 11/07/2024 [place] [address] Ultrasound Report Signed Patient: FAHEEM BABB MR#: [id number] : 1995 Acct:[id number] Age/Sex: 29 / F ADM Date: 11/07/24 Loc: US Attending Dr: Jose Pan D.O. Ordering Physician: Jose Pan D.O. Date of Service: 11/07/24 Procedure(s): US OB cervical length Accession Number(s): [id number] cc: SRI RAMÍREZ ; Jose Pan D.O. The [place] [id number] Patient Name: FAHEEM BABB MRN: TBH:[id number] date: 1995 Sex: F Assigned Patient Location: US Current Patient Location: US Accession/Order Number: [id number] Exam Date: 11/07/2024 12:17 Report Date: 11/07/2024 [...] all 4 extremities were surveyed by the residential tech. There are complex cord plexus cysts [...] Michael M.D. 11/07/2024 12:24 PM Dictation Location: [place] [address] Electronically authenticated by: [id number] Y Date: 11/07/2024 12:24 Dictated By: Ana Michael M.D. Signed By: 11/07/24 1226 DD/ 1224 TD/TT: Product Safety Engineer: PABLITO MeyersUrinalysis macro (dipstick) panel (U)on 61-20-6478Tqebgoywg, UA NegativeNegative - 4(70) +++ mg/dLNOMS HealthcareBlood, UANegativeNegative - 50 Lalen/mcLNOMS HealthcareClarity, UAClearNOMS HealthcareColor, UAYellowNOMS HealthcareGlucose, UANegativeNegative - 2000(110) ++++ mg/dLNOMS Healthcare Interpretation and review of laboratory resultsNormalNOMS HealthcareKetones, UA NegativeNegative - 160(16) ++++ mg/dLNOMS HealthcareLeukocytes, UANegative Negative - 500+++ Andrei/mcLNOMS HealthcareNitrite, UANegativeNegative - Positive NOMS HealthcarepH, UA65 - 9NOMS HealthcareProtein, UANegativeNegative - 2000(20) ++++ mg/dLNOWY HealthcareSpec Grav, UA1.0151 - 1.03NOWY HealthcareUrobilinogen, UA0.20.2 - 12 mg/dLNOSaint John's Saint Francis Hospital HealthcareAFP, SERUM, OPEN SPINA BIFIDA on 66-83-5051AXD MOM1.01.NOMPemiscot Memorial Health SystemsAFP VALUE52.0 ng/mL.[facility] COMMENT:Comment.[facility] Health CenterComment on above:Alejandra Santiago, Ph.D., [facility] Director References: Available Upon Request. Multiples Of Median Cutoffs For AFP Elevations Mascorro 2.5 Black 2.8 IDD 2.0 Twins 4.5 Abbreviation Definitions IDD - Insulin Dep Diabetes OSBR - Open Spina Bifida Risk For further inquiries contact [facility] at [phone]. This test was developed and its performance characteristics determined by [employer]. It has not been cleared or approved by the Food and Drug Administration. Performed at: [facility] Dlyte.comsaint [facility] [address] [place], [place] [address] Gasoline Tester: Halina Hill [facility], Phone: [phone] GEST. AGE ON COLLECTION DATE19.4. weeksNOSaint Mary's Hospital of Blue SpringsGESTAT. AGE BASED ONLMP. [facility] Health CenterComment on above:Recalculations are not recommended when gestational dating by LMP and ultrasound are within 10 days. INSULIN DEP DIABETESNo.[facility] HealthcareINTERPRETATIONComment.[facility] Comment on above:Interpretation: Screen Negative This result [...] Customer Services to discuss available options. The [employer] recommends amniocentesis be offered to women age 35 and older. MATERNAL AGE AT EDD28.1. yrNOWY HealthcareMULTIPLE GESTATIONNo.[facility] OSBR RISK 1 [id number].NOMS HealthcareRACECaucasian.[facility] Toledo HospitalRESULTSReport. [facility] Health CenterTEST RESULTS:Negative.NOMS AuojrmdcurDGWMIA289. lbsNOMS HealthcarePREGNANCY N N LMP [id number] 1 16 N 1 Y 153 N N N N N White/ CLINISYNCNOWY HealthcareUrinalysis macro (dipstick) panel (U)on 10-10-2024 Bilirubin, UANegativeNegative - 4(70) +++ mg/dLNOMS HealthcareBlood, UANegative Negative - 50 Allen/mcLNOMS HealthcareClarity, UAClearNOMS HealthcareColor, UA YellowNOMS HealthcareGlucose, UANegativeNegative - 2000(110) ++++ mg/dLNOMS HealthcareInterpretation and review of laboratory resultsNormalNOWY Healthcare Ketones, UANegativeNegative - 160(16) ++++ mg/dLNOMS HealthcareLeukocytes, UA NegativeNegative - 500+++ Andrei/mcLNOMS HealthcareNitrite, UANegativeNegative - PositiveNOMS HealthcarepH, UA75 - 9NOMS HealthcareProtein, UANegativeNegative - 2000(20) ++++ mg/dLNOMS HealthcareSpec Grav, UA1.021 - 1.03NOMS Healthcare Urobilinogen, UA0.20.2 - 12 mg/dLNOWY HealthcareNOWY HealthcareRECURRENT VAGINITIS (HTRX)on 36-55-4943NGWACEVYN KUVRLLB7UJFL HealthcareATOPOBIUM VAGINAE Not detectedNOMS HealthcareBVAB 2,3 (BACTERIAL VAGINOSIS ASSOCIATED BACTERIA 2, 3); MOBILUNCUS DWH0IWRZ HealthcareBVAB 2,3 (BACTERIAL VAGINOSIS ASSOCIATED BACTERIA 2, 3); MOBILUNCUS SPPNot detectedNOMS HealthcareCANDIDA ALBICANS, PARAPSILOSIS, IIOFSOMJVK5XXZF HealthcareCANDIDA ALBICANS, PARAPSILOSIS, TROPICALISNot detectedNOMS HealthcareCANDIDA BNWGLZMQ5BJGT HealthcareCANDIDA GLABRATANot detectedNOMS HealthcareCANDIDA SMCMVW0MDCA HealthcareCANDIDA KRUSEI Not detectedNOMS HealthcareCHLAMYDIA ESFZOELCWQY2DWKC HealthcareCHLAMYDIA TRACHOMATISNot detectedNOMS HealthcareGARDNERELLA VMVJVPPJS1ZMTU Healthcare GARDNERELLA VAGINALISNot detectedNOMS HealthcareMEGASPHAERA (TYPES 1, 2)0NOMS HealthcareMEGASPHAERA (TYPES 1, 2)Not detectedNOMS HealthcareMYCOPLASMA CWNFSRVZEN7DOAN HealthcareMYCOPLASMA GENITALIUMNot detectedNOMS Healthcare NEISSERIA HDKFTKZJSML0CQTR HealthcareNEISSERIA GONORRHOEAENot detectedNOMS HealthcareTRICHOMONAS SPBZQNRVU4FRXF HealthcareTRICHOMONAS VAGINALISNot detected NOMS HealthcareNOMS HealthcareUrinalysis macro [...] UANegativeNegative - 2000(20) ++++ mg/dLNOMS HealthcareSpec Grav, UA1.0251 - 1.03NOMS HealthcareUrobilinogen, UA0.20.2 - 12 mg/dLNOMS HealthcareNOMS HealthcareUrinalysis macro (dipstick) panel (U)on 62-45-0101Sepijsnvo, UA NegativeNegative - 4(70) +++ mg/dLNOMS HealthcareBlood, UAPositiveNegative - 50 Allen/mcLNOMS HealthcareClarity, UAClearNOMS HealthcareColor, UAYellowNOMS HealthcareGlucose, UANegativeNegative - 2000(110) ++++ mg/dLNOMS Healthcare Interpretation and review of laboratory resultsAbnormalNOMS HealthcareKetones, UAPositiveNegative - 160(16) ++++ mg/dLNOMS HealthcareLeukocytes, UANegative Negative - 500+++ Andrei/mcLNOMS HealthcareNitrite, UANegativeNegative - Positive NOMS HealthcarepH, UA75 - 9NOMS HealthcareProtein, UANegativeNegative - 2000(20) ++++ mg/dLNOMS HealthcareSpec Grav, UA1.021 - 1.03NOWY HealthcareUrobilinogen, UA1.00.2 - 12 mg/dLNOWY HealthcareNOMS HealthcareBOX TESTon 24-58-3792XUT TEST SENT OUTunityNOWY OdoasjgrzsLKZ7qubdfUMZQ XtoasnmwodMUU70/12/25NOSaint Mary's Hospital [facility] Springs UNITY BOX CLINISYNCNOWY HealthcareHCG ( test) Ql (U)on 81-28-9204Ajyeezupmkcpwk and review of laboratory resultsAbnormalFILLMORE [facility] HealthcarePreg Test, UrPositive NegativeNOSaint John's Saint Francis Hospital HealthcareUS OB TRANSVAGINALon 93-95-2606RK OB TRANSVAGINALEXAM: US OB TRANSVAGINAL HISTORY: Dating. [...] II, MD, PHD at 21-Aug-2024 08:21:12 PM [facility] TeleradiologyNormalNot AvailableComment on above:Order Comment: US OB TRANSVAGINAL No LMP recorded.Urinalysis macro (dipstick) panel (U)on 32-42-6164Owdrkqblt, UA NegativeNegative - 4(70) +++ mg/dLNOMS HealthcareBlood, UANegativeNegative - 50 Allen/mcLNOWY HealthcareClarity, UAClearNOMS HealthcareColor, UAYellowNOMS HealthcareGlucose, UANegativeNegative - 2000(110) ++++ mg/dLNOMS Healthcare Interpretation and review of laboratory resultsNormalNOMS HealthcareKetones, UA NegativeNegative - 160(16) ++++ mg/dLNOMS HealthcareLeukocytes, UANegative Negative - 500+++ Andrei/mcLNOWY HealthcareNitrite, UANegativeNegative - Positive NOMS HealthcarepH, UA75 - 9NOMS HealthcareProtein, UANegativeNegative - 2000(20) ++++ mg/dLNOMS HealthcareSpec Grav, UA1.011 - 1.03NOMS HealthcareUrobilinogen, UA0.20.2 - 12 mg/dLNOMS HealthcareNOMS HealthcareAmbulatory Visit Summaryon 39-18-4355Wnastzffqt Visit SummaryAmbulatory Visit Summary FAHEEM BABB :1995 [...] you for choosing us for your care. [facility]Gen[facility] HospitalUrology Office/Clinic Noteon 73-93-7393Mpffofo Office/Clinic NoteUrology Office/Clinic Note Chief Complaint possible [...] Sx persisted so AO sent 7d Keflex. LOGISTICS/SHIPPER spoke with her about possible IC. We [...] E&M of Est. Patient Moderate 30-39 Min 81045 Urnls Dip Stick Auto w/o Microscopy POC 60537 Follow-up With When Contact Information Call for UTI symptoms. Call to schedule follow up after . Additional Instructions: Patient Education Kidney Stones, Nrzb-kd-Wljh Problem List/Past Medical History Ongoing Adjustment disorder [...] Protein Urine Dipstick: Negative (08/01/24 13:23:00) Specific [place] Urine Dipstick: <=1.005 (08/01/24 13:23:00) Urine Appearance Urine Dipstick: Clear (08/01/24 13:23:00) Urine Color Urine Dipstick: Yellow (08/01/24 13:23:00) Urobilinogen Urine Dipstick: Normal 0.2-1 EU/dl (08/01/24 13:23:00) pH Urine Dipstick (more content not included)...[facility] HospitalComment on above:Result Comment: Electronically Signed By: JONAH GOMEZ PA-C\.robbin\Date and Time Signed: 08/02/2515:14 EDTBI US BREAST LIMITED LEFT on 30-53-4110RR US BREAST LIMITED LEFTThis is a summary [...] 2 ELECTRONICALLY SIGNED BY: Jairo Hernández M.D.NormalNot AvailableChristus Spohn Hospital Alice 53-85-3119YkumfsrbvLzrjitqum From: Anayeli Laureano To: EU - Administrative; Sent: 03/01/2024 11:42:31 EST Show up: 03/22/2024 11:42:00 EST Subject: Ambulatory Reminder Due Date/Time: 05/28/2024 11:42:00 EST Reminder/Recall Patient needs scheduled with SURYA for a 3 month F/U, due back in May 2024 MAY 16 W[facility] WITH AUTO DIFFon 43-87-5059PTSBKIVCW ABSOLUTE COQG8JYXC HealthcareBasophils/100 WBC (Bld) 0.4 %0.2 - 2.0 %NOMS HealthcareEosinophils/100 WBC (Bld)2.3 %0.9 - 7.0 %NOMPemiscot Memorial Health SystemsErythrocyte distribution width (RBC) [Ratio]11.9 %11.0 - 15.0 %NOMPemiscot Memorial Health SystemsHematocrit (Bld) [Volume fraction]42 %36.0 - 48.0 %[facility] Hemoglobin (Bld) [Mass/Vol]14.4 g/dL12.0 - 16.0 g/dLNOWY HealthcareIMMATURE GRANULOCYTES ABS AUTO0.01NOWY HealthcareImmature granulocytes/100 WBC (Bld)0.2 % 0.0 - 0.5 %NOM HealthcareInterpretation and review of laboratory results AbnormalNOMS HealthcareLYMPHOCYTES ABSOLUTE GFNB0FOBG HealthcareLymphocytes/100 WBC (Bld)42.5 %20.5 - 60.0 %NOMPemiscot Memorial Health SystemsMCH (RBC) [Entitic mass]30.6 pg26.7 - 34.0 pgNOParkland Health CenterHC (RBC) [Mass/Vol]34.3 g/dL29.9 - 35.2 g/dLNOSaint Mary's Hospital of Blue SpringsMCV (RBC) [Entitic vol]89.2 fL81.0 - 99.0 fLNOMS HealthcareMONOCYTES ABSOLUTE AUTO0.5NOMS HealthcareMonocytes/100 WBC (Bld)11 %1.7 - 12.0 %NOMS HealthcareNEUTROPHILS ABSOLUTE AUTO2.1NOMS HealthcareNeutrophils/100 WBC (Bld) 43.6 %43.0 - 75.0 %NOMS HealthcarePlatelet mean volume (Bld) [Entitic vol]9.4 fL Low9.5 - 13.5 fLNOMS HealthcareTBH EO #0.1NOMS HealthcareTBH POG928YEJC HealthcareTBH RBC4.71NOMS HealthcareTBH WBC4.7NOMS HealthcareCLINISYNCNOMS HealthcareC Urineon 64-25-8821Omfexisl identified Cx Nom (U)Microbiology PROCEDURE: Urine Culture [...] Locations R1: This test was performed at: [facility], [address] [place] [address], [address] [place] [address], AqyaplFeyivsCleveland Clinic Marymount HospitalComment on above:Performed By: #### [id number] #### [facility] [address] [place] [id number] RENAL BIon 45-36-0945Ucn[place] [address] Ultrasound Report Signed Patient: FAHEEM BABB MR#: [id number] : 1995 Acct:[id number] Age/Sex: 29 / F ADM Date: 03/21/24 Loc: US Attending Dr: Bonita Pinedo MAINTENANCE LEADER Ordering Physician: Bonita Pinedo NP Date of Service: 03/21/24 Procedure(s): US renal BI Accession Number(s): [id number] cc: SRI RAMÍREZ ; Bonita Pinedo MAINTENANCE LEADER [place] [id number] Patient Name: FAHEEM BABB MRN: [id number] date: 1995 Sex: F Assigned Patient Location: Current Patient Location: Accession/Order Number: [id number] Exam Date: 03/21/2024 12:58 Report Date: 03/22/2024 [...] Jimenez M.D. Signed By: 03/22/2459 DD/ TD/TT: Product Safety Engineer:CHRISadiologmatthieu, Radiologist, - 03/22/2024 [place] [address] Ultrasound Report Signed Patient: FAHEEM BABB MR#: [id number] : 1995 Acct:[id number] Age/Sex: 29 / F ADM Date: 03/21/24 Loc: US Attending Dr: Bonita Pinedo NP Ordering Physician: Bonita Pinedo NP Date of Service: 03/21/24 Procedure(s): US renal BI Accession Number(s): [id number] cc: SRI RAMÍREZ ; Bonita Pinedo NP The [place] [id number] Patient Name: FAHEEM BABB MRN: [id number] date: 1995 Sex: F Assigned Patient Location: US Current Patient Location: Accession/Order Number: [id number] Exam Date: 03/21/2024 12:58 Report Date: 03/22/2024 [...] M.D. Signed By: 03/22/2459 DD/ 6 TD/TT: Product Safety Engineer: PABLITO Toledo HospitalRadiology Study observation (narrative)[facility] CenterUS RENAL BI Ordered By: Radiologist Radiology on 28-52-6143ATVN [employer] ([email or web address]) Work Phone: xr ABDOMEN 1Von 11-92-1554FsyJosh[place] [id number] XRay Report Signed Patient: FAHEEM BABB MR#: [id number] : 1995 Acct:[id number] Age/Sex: 29 / F ADM Date: 03/21/24 Loc: US Attending Dr: Bonita Pinedo NP Ordering Physician: Bonita Pinedo NP Date of Service: 03/21/24 Procedure(s): XR abdomen 1V Accession Number(s): [id number] cc: SRI RAMÍREZ ; Bonita Pinedo NP [address] [id number] Patient Name: FAHEEM BABB MRN: [id number] date: 1995 Sex: F Assigned Patient Location: US Current Patient Location: US Accession/Order Number: [id number] Exam Date: 03/21/2024 13:38 Report Date: 03/22/2024 [...] Signed By: 03/22/24 1151 DD/ 1148 TD/TT: Product Safety Engineer:CHRISadiologmatthieu, Radiologist, - 03/22/[address] [address] XRay Report Signed Patient: FAHEEM BABB MR#: [id number] : 1995 Acct:[id number] Age/Sex: 29 / F ADM Date: 03/21/24 Loc: US Attending Dr: Bonita Pinedo NP Ordering Physician: Bonita Pinedo NP Date of Service: 03/21/24 Procedure(s): XR abdomen 1V Accession Number(s): [id number] cc: SRI RAMÍREZ ; Bonita Pinedo NP The [address] [address] Patient Name: FAHEEM BABB MRN: [id number] date: 1995 Sex: F Assigned Patient Location: US Current Patient Location: US Accession/Order Number: [id number] Exam Date: 03/21/2024 13:38 Report Date: 03/22/2024 [...] Signed By: 03/22/24 1151 DD/ 1148 TD/TT: Product Safety Engineer: PABLITO HealthcareRadiology Study observation (narrative)[facility] HealthcareXR ABDOMEN 1VOrdered By: Radiologist Radiology on 60-48-4641DRXPSaint Joseph Health Center Work Phone: Urinalysis macro (dipstick) panel (U)on 02-15-2024 Bilirubin, UANegativeNegative - 4(70) +++ mg/dLNOMS HealthcareBlood, UANegative Negative - 50 Allen/mcLNOMS HealthcareClarity, UAClearNOMS HealthcareColor, UA YellowNOMS HealthcareGlucose, UANegativeNegative - 2000(110) ++++ mg/dLNOMS HealthcareInterpretation and review of laboratory resultsNormalNOMS Healthcare Ketones, UANegativeNegative - 160(16) ++++ mg/dLNOMS HealthcareLeukocytes, UA NegativeNegative - 500+++ Andrei/mcLNOMS HealthcareNitrite, UANegativeNegative - PositiveNOMS HealthcarepH, UA75 - 9NOMS HealthcareProtein, UANegativeNegative - 2000(20) ++++ mg/dLNOMS HealthcareSpec Grav, UA1.011 - 1.03NOMS Healthcare Urobilinogen, UA0.20.2 - 12 mg/dLNOMS HealthcareNOMS HealthcareUS PELVISon 60-75-2377QsmCohasset[place] [address] Ultrasound Report Signed Patient: FAHEEM BABB MR#: [id number] : 1995 Acct:[id number] Age/Sex: 28 / F ADM Date: 02/03/24 Loc: NOMS Attending Dr: Jose Pan D.O. Ordering Physician: Jose Pan D.O. Date of Service: 02/03/24 Procedure(s): US pelvis Accession Number(s): [id number] cc: SRI RAMÍREZ ; Jose Pan D.O. [place] [address] Patient Name: FAHEEM BABB MRN: [id number] date: 1995 Sex: F Assigned Patient Location: [facility] Current Patient Location: LAB Accession/Order Number: [id number] Exam Date: 02/03/2024 10:36 Report Date: 02/03/2024 [...] Signed By: 02/03/24 1133 DD/ 1131 TD/TT: Product Safety Engineer:NANCYHRadiology, Radiologist, - 02/03/2024 [place] [address] Ultrasound Report Signed Patient: FAHEEM BABB MR#: [id number] : 1995 Acct:[id number] Age/Sex: 28 / F ADM Date: 02/03/24 Loc: NOMS Attending Dr: Jose Pan D.O. Ordering Physician: Jose Pan D.O. Date of Service: 02/03/24 Procedure(s): US pelvis Accession Number(s): [id number] cc: SRI RAMÍREZ ; Jose Pan D.O. The [place] [id number] Patient Name: FAHEEM BABB MRN: [id number] date: 1995 Sex: F Assigned Patient Location: [facility] Current Patient Location: LAB Accession/Order Number: [id number] Exam Date: 02/03/2024 10:36 Report Date: 02/03/2024 [...] Signed By: 02/03/24 1133 DD/ 1131 TD/TT: Product Safety Engineer: [facility] CenterRadiology Study observation (narrative)[facility] HealthcareUS PELVIS Ordered By: Radiologist Radiology on 89-40-4752GGLR Healthcare Work Phone: IGP,APTIMA HPV,AGE GDLNon 04-16-1752CYX GDLN ACOG TESTINGNote.[facility] HealthcareComment on above:TESTS RESULT FLAG UNITS REF RANGE LAB Clinician Provided Cytology Information Source.............Cervix;Endocervix No. of containers..01 ThinPrep Vial Age Algo ACOG Dione... - 01 FLAG LEGEND: L-Low Normal,H-High Normal,LL-Alert Low,HH-Alert High <-Panic Low,>-Panic High,A-Abnormal,AA-Critical Abnormal Performed at: 01 =G [address] [place] [address] Cristiane Eduardo MD, IGP, RFX APTIMA HPV ASCUNote.NOMS HealthcareComment on above:TESTS RESULT FLAG UNITS REF RANGE LAB DIAGNOSIS: 02 NEGATIVE FOR INTRAEPITHELIAL LESION OR MALIGNANCY. Specimen adequacy: 02 Satisfactory for evaluation. Endocervical and/or squamous metaplastic cells (endocervical component) are present. Performed by: 02 Marily Sin Candy Packer ([facility]) . 02 Note: Note 03 The Pap [...] High,A-Abnormal,AA-Critical Abnormal Performed at: 02 [facility] [place] [facility] [address] [place] [address] Mayur Coleman MD, 03 WB [facility] [address] [place] [address] Cristiane Eduardo MD, Performed at: =G - [facility] [place] [address] [place], [place] [id number] Gasoline Tester: Cristiane Eduardo MD, Phone: [phone] Performed at: [facility] - [facility] [address] [place], [place] [address] Gasoline Tester: Mayur Coleman MD, Phone: [phone] BRUSH-SPATULA CERVIX ENDOCERVIX CLINISYNCNOMS HealthcareCytology Cervical or vaginal smear or scraping studyon 92-07-7471YXUA HealthcareNo Panel Informationon 18-81-3430AONJACUXWQFUNJ EPIDERMIDIS, HAEMOLYTICUS, LUGDUNENSIS, SAPROPHYTICUS (URINA0.000NOMS Healthcare STAPHYLOCOCCUS EPIDERMIDIS, HAEMOLYTICUS, LUGDUNENSIS, SAPROPHYTICUS (URINANot detectedNOMS HealthcareURINARY TRACT INFECTION (HTRX)on 21-85-9349ZQODHATISZRBZ BAUMANII0.000NOMS HealthcareACINETOBACTER BAUMANIINot detectedNOMS Healthcare REAL ALBICANS, [...] UrNegativeNOMS HealthcareNOMS HealthcareUrinalysis macro (dipstick) panel (U)on 65-62-6154Nzkafhgjr, UANegativeNegative - 4(70) +++ mg/dLNOMS HealthcareBlood, UAPositiveNegative - 50 Allen/mcLNOMS HealthcareClarity, UAClearNOMS Healthcare Color, UAYellowNOMS HealthcareGlucose, UANegativeNegative - 1999(110) ++++ mg/dL NOMS HealthcareInterpretation and review of laboratory resultsAbnormalNOMS HealthcareKetones, UAPositiveNegative - 160(16) ++++ mg/dLNOMS Healthcare Leukocytes, UANegativeNegative - 500+++ Andrei/mcLNOMS HealthcareNitrite, UA NegativeNegative - PositiveNOMS HealthcarepH, UA6.55 - 9NOMS HealthcareProtein, UANegativeNegative - 2000(20) ++++ mg/dLNOMS HealthcareSpec Grav, UA1.0151 - 1.03NOMS HealthcareUrobilinogen, UA1.00.2 - 12 mg/dLNOMS HealthcareNOMS HealthcareCult,Urineon [id number],UrineSpecimen Description .URINE Unknown Culture NO SIGNIFICANT GROWTH Report Status FINAL 09/23/2023NoMercy Health Defiance HospitalComment on above:Performed By: #### URC #### [facility] [employer] [address] [place] [address] Gasoline Tester: Moisés Carl MD [place] [phone] Gasoline Tester: CODEY Werner, ,Urineon 19-02-5958Uili HCG ( test) Ql (U)NegativeNormalNEGMercy Northern Inyo HospitalComment on above:Result Comment: Specimens with hCG levels near the threshold of the test (25 mIU/mL) may give a negative or indeterminate result. In such cases, another test should be performed with a new specimen in 48-72 hours. If early is suspected clinically in this setting, correlation with quantitative serum b-hCG level is suggested.Performed By: #### AMBROSE CANOCG, UMICAO #### [place] [address] Gasoline Tester: JUAN C Werner w/Reflex Cultureon 48-55-5716Emkuppvxq, SemiQt,UrNegativeAbnormalNEGMerBellflower Medical CenterComment on above: Performed By: #### JOHNXAMBROSECG, UMICAO #### [place] [address] Gasoline Tester: Brynn Werner, UrineLARGEAbnormalNEGUniversity Hospitals Beachwood Medical CenterComment on above:Performed By: #### UAX UHCG, UMICAO #### [place] [address] Gasoline Tester: MICKEY Wernerlarity (U)SLIGHTLY CLOUDYAbnormalCLEARMercy Northern Inyo HospitalComment on above:Performed By: #### UAX, UHCG, UMICAO #### [place] [phone] Gasoline Tester: MICKEY Wernerolor (U)RedAbnormalYELMerBellflower Medical CenterComment on above:Performed By: #### UAX, UHCG, UMICAO #### [place] [address] Gasoline Tester: Iman WernerINTERPRET WITH CAUTION DUE TO INTENSE COLOR OF URINE.NormalUniversity Hospitals Beachwood Medical CenterComment on above:Performed By: #### UAX, UHCG, UMICAO #### [place] [address] Gasoline Tester: Wan Morales MDGlucose Ql (U)NegativeNormalNEGUniversity Hospitals Beachwood Medical CenterComment on above:Performed By: #### UAX, UHCG, UMICAO #### [place] [address] Gasoline Tester: Wan Morales MDKetones Ql (U)NegativeNormalNEGUniversity Hospitals Beachwood Medical CenterComment on above:Performed By: #### UAX, UHCG, UMICAO #### [place] [address] Gasoline Tester: Wan Morales MDLeukocyte esterase Test strip Ql (U)MODERATE AbnormalNEGUniversity Hospitals Beachwood Medical CenterComment on above:Performed By: #### UAX, UHCG, UMICAO #### [place] [address] Gasoline Tester: Wan Morales MDNitrite,UrPositiveAbnormalNEGUniversity Hospitals Beachwood Medical CenterComment on above:Performed By: #### UAX, UHCG, UMICAO #### [place] [phone] Gasoline Tester: Wan Morales [facility],Ur7.6Pleeua2.0-8.0University Hospitals Beachwood Medical CenterComment on above:Performed By: #### UAX, UHCG, UMICAO #### [place] [address] Gasoline Tester: SONNY Wernerrotein Ql (U)3+ mg/dLAbnormalNEGUniversity Hospitals Beachwood Medical CenterComment on above:Performed By: #### UAX, UHCG, UMICAO #### [place] [address] Gasoline Tester: LINH Wernerpec. [place],Ur1.510Bsbgxb8.005-1.030University Hospitals Beachwood Medical CenterComment on above:Performed By: #### UAX, UHCG, UMICAO #### [place] [address] Gasoline Tester: Wan Morales MDUrobilinogen,UrNormalNormal0.0-1.0University Hospitals Beachwood Medical CenterComment on above:Performed By: #### JEROME, AMBROSECG, UMICAO #### [place] [address] Gasoline Tester: Wan Morales MDUrinalysis,Microon [id number] AbnormalNONEMercFountain Valley Regional Hospital and Medical CenterComment on above:Performed By: #### UAX, UHCG, UMICAO #### [place] [address] Gasoline Tester: Wan Morales MDEpithelial cells LM Ql (Urine sed)5 TO 10Normal 0-5University Hospitals Beachwood Medical CenterComment on above:Performed By: #### UAX, UHCG, UMICAO #### [place] [phone] Gasoline Tester: Wan Morales MDOther ObservationsCulture ordered based on defined criteria.AbnormalNREQMerBellflower Medical CenterComment on above: Performed By: #### UAX, UHCG, UMICAO #### [facility] [address] [place] [id number] Gasoline Tester: Wan Morales MDUrine RBC'sTOO NUMEROUS TO COUNTNormal0-2Mercy Northern Inyo HospitalComment on above:Performed By: #### UAX, UHCG, UMICAO #### [place] [address] Gasoline Tester: Wan Morales MDUrine WBC'sTOO NUMEROUS TO COUNTNormal0-5Mercy Northern Inyo HospitalComment on above:Performed By: #### UAX, UHCG, UMICAO #### [facility] [id number] [place] [address] Gasoline Tester: Wan Morales MDUS RENAL COMPLETEon [id number] RENAL COMPLETE EXAMINATION: RETROPERITONEAL ULTRASOUND OF THE [...] Signed by: Sri Galeas MD 06/20/21 Final resultNoFort [facility] Hospital1. Nonobstructing left renal stones measuring up to 5 mm. 2. No hydronephrosis. [facility] RIS CONSOLIDATEDEXAMINATION: RETROPERITONEAL ULTRASOUND OF THE KIDNEYS [...] the bladder. No significant post void residual. [facility] Sri Bryson MD - 06/20/2021 EXAMINATION: RETROPERITONEAL [...] up to 5 mm. 2. No hydronephrosis. [employer] Phone: us RENAL COMPLETEOrdered By: Sri Galeas on 04-72-6793YkbodTaomee Phone: us RENAL COMPLETEon [id number] Study observation (narrative)Taomee Phone: xr ABDOMEN (KUB) (SINGLE AP VIEW)on 97-45-8580RJ ABDOMEN (KUB) (SINGLE AP VIEW)EXAMINATION: ONE SUPINE [...] Signed by: See Herrera 06/19/21 Final resultNormalMercy Dalton HospitalNo definite evidence of renal or ureteral stones. [facility] CONSOLIDATEDEXAMINATION: ONE SUPINE XRAY VIEW(S) [...] urine collecting system. Osseous structures are normal. [facility] GLORIARorochrisJoaquimic P - 06/19/2021 EXAMINATION: ONE SUPINE XRAY [...] definite evidence of renal or ureteral stones. [employer] Phone: radiology Study observation (narrative)Taomee Phone: XR ABDOMEN (KUB) (SINGLE AP VIEW)Ordered By: See Herrera on 25-74-7132WglqqTaomee Phone: Cult,Urineon 15-11-9021Rirx,UrineSpecimen Description .VOIDED URINE Culture NO SIGNIFICANT GROWTH Report Status FINAL 06/14/2021NormSt. Mary's Medical CenterComment on above: Performed By: #### URC #### [facility] [employer] [address] [place] [address] Gasoline Tester: Moisés Carl MD [facility] [address] [place] [address] Gasoline Tester: Filemon Gutiérrez MDUrinalysis w/ Microon 06-12-2021-----[facility] Osteopathic ClinicComment on above:Performed By: #### UAMIC #### [facility] [address] [place] [address] Gasoline Tester: Filemon Gutiérrez MDEpithelial cells LM Ql (Urine sed)2 TO 0Czqnsc5-20 [facility] HospitalComment on above:Performed By: #### UAMIC #### [facility] [address] [place], [place] [id number] Gasoline Tester: Brennan Kay RBC's0 TO 2Wulnfb6-8AuatoKettering Health Main Campus Comment on above:Performed By: #### UAMIC #### [facility] [address] [place], [place] 6[address] Gasoline Tester: Brennan Kay WBC's0 TO 8Rlibvy9-7UhknmPromedica Bay Park Hospital Comment on above:Performed By: #### UAMIC #### [facility] [address] [place], [place] [phone] Gasoline Tester: Filemon Gutiérrez MDBilirubin, SemiQt,UrNegativeNormalNEGPromedica Bay Park HospitalComment on above:Performed By: #### UAMIC #### [facility] [address] [place], [place] [phone] Gasoline Tester: Filemon Gutiérrez MDBlood, UrineNegativeNormalNEGPromedica Bay Park Hospital Comment on above:Performed By: #### UAMIC #### [facility] [address] [place], [place] [address] Gasoline Tester: MICKEY Kaylarity (U)ClearNormalCLEARPromedica Bay Park Hospital Comment on above:Performed By: #### UAMIC #### [facility] [address] [place], [place] [address] Gasoline Tester: MICKEY Kayolor (U)YellowNormalYWilson Street Hospital Comment on above:Performed By: #### UAMIC #### [address] [place] [address] Gasoline Tester: Filemon Gutiérrez MDGlucose Ql (U)NegativeNormalNEGMercy The Institute Of LivingComment on above:Performed By: #### UAMIC #### [address] [place], [place] [id number] Gasoline Tester: Filemon Gutiérrez MDKetones Ql (U)NegativeNormalNEGMercy Dalton HospitalComment on above:Performed By: #### UAMIC #### [address] [place], [facility]83 Gasoline Tester: Filemon Gutiérrez MDLeukocyte esterase Test strip Ql (U)NegativeNormal NEGMercy The Institute Of LivingComment on above:Performed By: #### UAMIC #### [address] [place], [facility]83 Gasoline Tester: Filemon Gutiérrez MDNitrite,UrNegativeNormalNEGPromedica Bay Park Hospital Comment on above:Performed By: #### UAMIC #### [address] [place], [place] [address] Gasoline Tester: SONNY Kay,Ur7.2Fyzrzo4.0-9.0Prom[facility] Park HospitalComment on above:Performed By: #### UAMIC #### [address] [place], [place] [address] Gasoline Tester: SONNY Kayrotein Ql (U)NegativeNormalNEGMerSumma Health Barberton Campus HospitalComment on above:Performed By: #### UAMIC #### [address] [place], [place] [address]83 Gasoline Tester: LINH Kaypec. [place],Ur1.412Hernjm7.010-1.020Mercy The Institute Of LivingComment on above:Performed By: #### UAMIC #### [facility] [address] [place] [address] [place] [address] Gasoline Tester: Filemon Gutiérrez MDUrobilinogen,UrNormalNormalNORMMerHospital for Special CareComment on above:Performed By: #### UAMIC #### [facility] [address] [place] [address] Gasoline Tester: Filemon Gutiérrez MDUrinalysis with Microscopicon 06-12-2021-[facility] SystemBilirubin UrineNegativeNEGATIVEMercy HealthColor, UAYellowYellowMercy HealthEpithelial Cells UA2 TO 5Mercy HealthGlucose, UrNegativeNEGATIVEMercy HealthKetones Ql (U)NegativeNEGATIVEMercy HealthLeukocyte esterase Test strip Ql (U)NegativeNEGATIVEMercy HealthNitrite, UrineNegativeNEGATIVEMercy HealthpH, UA 7.0Mercy HealthProtein, UANegativeNEGATIVEMercy HealthRBC, UA0 TO 2[facility] Specific [place], UA1.010Mercy HealthTurbidity UAClearClearMercy HealthUrine Hgb NegativeNEGATIVEMercy HealthUrobilinogen, UrineNormalNormalMercy HealthWBC, UA0 TO 2Mercy HealthMercy HealthPAP ACOG PANEL 2: 21 to 29on 05-25-2021..NormalAvita Health SystemCommymichigan medical center gladwin on above:Performed By: #### [id number] #### [facility] [address] [place] [address] Dr. Jolene Cornejo Gdln ACOG Eutkikn39-19NuzqkmGzrSouthwest General Health CenterComment on above:Performed By: #### [id number] #### [facility] [address] [place] [address] [address] Jolene StreetDIAGNOSIS:CommentNoOhioHealth Dublin Methodist Hospital on above: Result Comment: NEGATIVE FOR INTRAEPITHELIAL LESION OR MALIGNANCY.Performed By: #### [id number] #### [facility] [address] [place] [address] [address]ene StreetMethodology:CommentNoSouthwest General Health CenterCommymichigan medical center gladwin on above: Result Comment: This liquid based ThinPrep(R) pap test was screened with the use of an image guided system.Performed By: #### [id number] #### [place] [address] [address] Jolene StreetNote:CommentMercy Health Clermont Hospital on above:Result Comment: The Pap smear is a screening test designed to aid in the detection of premalignant and malignant conditions of the uterine cervix. It is not a diagnostic procedure and should not be used as the sole means of detecting cervical cancer. Both false-positive and false-negative reports do occur. .Performed By: #### [id number] #### [place] [address] [address] Jolene StreetPerformed by:CommentMercy Health Clermont Hospital on above: Result Comment: Grisel Negron, Candy Packer (ASCP)Performed By: #### [id number] #### [place] [address] [address] Jolene StreetReflex Criteria:CommentMercy Health Clermont Hospital on above:Result Comment: The HPV DNA reflex criteria were not met with this specimen result therefore, no HPV testing was performed. .Performed By: #### [id number] #### [place] [address] [address] Jolene StreetSpecimen adequacy:CommentMercy Health Clermont Hospital on above:Result Comment: Satisfactory for evaluation. Endocervical and/or squamous metaplastic cells (endocervical component) are present.Performed By: #### [id number] #### [facility] [address] [place] [address] Vital Signs Date TimeVital SignValuePerforming YldjddgmjBoieovvo72-66-4865 10:-040Body mass index (BMI) [Ratio]27.53 kg/v3Nrgnn Maxim DO Work Phone: [facility] CenterZbuubqxhob74-67-2672 10:040Body htiroz45.74 kgCorey Maxim DO Work Phone: [facility] CenterXqmlnzkgzb91-75-6520 10:23-0400Diastolic blood enrdufxz16 mm[Hg]Jose Maxim DO Work Phone: [phone] [place], [place] [address]Jeclsyihyb66-08-2903 10:23-0400Systolic blood dkmvkjoc767 mm[Hg]Jose Maxim DO Work Phone: [phone] [place], [place] [address]Cxbetgavvm60-91-2843 10:15-0400Body mass index (BMI) [Ratio]27 kg/v6Ieooj Maxim DO Work Phone: [phone])538-[address] [place], [place] [address]Orcjjzuflq19-03-3169 10:15-0400Body .2 kg Jose Maxim DO Work Phone: [phone] [place] [address]-14-2025 10:15-0400Diastolic blood gaeyffgm45 mm[Hg]Jose Maxim DO Work Phone: [phone] [place], [place] [address]Jibebkbxvf07-71-5794 10:15-0400Systolic blood urzxfthm710 mm[Hg]Jose Maxim DO Work Phone: 1(364)[facility] [place], [place] [address]Ojbnmouxna83-18-8908 10:17-0400Body mass index (BMI) [Ratio]26.63 kg/o5HujlrcxoJake Gunter MAINTENANCE LEADER Work Phone: [phone] [place], [place] [address]Jfmhogqwdr98-23-4641 10:17-0400Body wnljid75.11 kgKrmikael Gunter MAINTENANCE LEADER Work Phone: [phone] [place], [place] [address]Yyxflsatcr70-25-6739 10:17-0400Diastolic blood luqnepdw60 mm[Hg]Jake Gunter MAINTENANCE LEADER Work Phone: [phone] [place], [place] [address]Rhmervpqdc03-25-6884 10:17-0400Systolic blood gkezjjnz236 mm[Hg]Jake Jani MAINTENANCE LEADER Work Phone: [phone] [place] [address]-17-2025 15:40-0400Body mass index (BMI) [Ratio]26.31 kg/m2Daja CUELLAR Work Phone: [facility] CenterFnbtwvisku28-84-8305 15:40-0400Body .2 kg Daja CUELLAR Work Phone: [phone] [place] [address]-17-2025 15:40-0400Diastolic blood pefhgghk53 mm[Hg]Daja CUELLAR Work Phone: 1([phone] [place], [place] [address]Yqhbjtbjqb42-41-7423 15:40-0400Systolic blood lukhfcck711 mm[Hg]Daja CUELLAR Work Phone: [phone] [place], [place] [address]Cqwumgyigs94-63-5427 14:09-0400Body mass index (BMI) [Ratio]25.22 kg/n9Vfpus Maxim DO Work Phone: [phone])126-[address] [place], [place] [address]Vgbixbomed84-55-0920 14:09-0400Body .03 kgCorey Maxim DO Work Phone: 1(419)[facility] [place], [place] [address]Qccpalhoss87-16-4356 14:09-0400Diastolic blood dhyixecd93 mm[Hg]Jose Maxim DO Work Phone: [phone] [place], [place] [address]Efaeslofav41-33-6540 14:09-0400Systolic blood vbcikmmg376 mm[Hg]Jose Maxim DO Work Phone: 1(419)[facility] [place], [place] [address]Hrnoozvloe91-85-2944 14:11-0400Body mass index (BMI) [Ratio]24.59 kg/d7Tapfx Maxim DO Work Phone: 1(085)[facility] [place], [place] [address]Qbzwjdppfh54-03-2401 14:11-0400Body gkdhje41.22 kgCorey Maxim DO Work Phone: 1(203)[facility] [place], [place] [address]Ekwgdxdsem06-92-4930 14:11-0400Diastolic blood qsvnhagg03 mm[Hg]Jose Maxim DO Work Phone: 1(419)[facility] [place], [place] [address]Stldmzpaur87-49-9750 14:11-0400Systolic blood yfnyggzj451 mm[Hg]Jose Maxim DO Work Phone: 1(419)[facility] [place], [place] [address]Iqdpqmvslw96-85-6101 14:44-0400Body mass index (BMI) [Ratio]24 kg/j7Hurcu Maxim DO Work Phone: 1(419)[facility] [place], [place] [address]Lietzotdwn30-95-9096 14:44-0400Body juhzhj65.51 kgCorey Maxim DO Work Phone: [phone] [place], [place] [address]Hilwsbxemt79-04-8634 14:44-0400Diastolic blood gnfxxqlu77 mm[Hg]Jose Maxim DO Work Phone: [facility] CenterXhnobcrrar10-94-6718 14:44-0400Systolic blood lxkdvvky281 mm[Hg]Jose Maxim DO Work Phone: [facility] CenterEkjckddoof49-78-2389 15:30-0400Body mass index (BMI) [Ratio]23.34 kg/m2Daja Ryan PA Work Phone: [facility] CenterLjyozvowoa16-92-6118 15:30-0400Body nxvpel29.59 kgDaja Ryan ALISA Work Phone: [facility] CenterGaurrdzzpd42-06-6499 15:30-0400Diastolic blood amnbomug61 mm[Hg]Daja Ryan ALISA Work Phone: [facility] CenterBlhwdjtdyf30-12-1810 15:30-0400Systolic blood vatolvcc759 mm[Hg]Daja Ryan ALISA Work Phone: [facility] CenterVjhxotpjul54-21-4244 14:04-0400Body mass index (BMI) [Ratio]22.99 kg/v4Emhmc Maxim DO Work Phone: [facility] CenterVpvhwninli53-07-9445 14:04-0400Body epxjkc21.59 kgCorey Maxim DO Work Phone: [facility] CenterRqqtkkfpbl09-14-9739 14:04-0400Diastolic blood phmzyvyq88 mm[Hg]Jose Maxim DO Work Phone: [facility] CenterZdmpxlmaco09-65-1384 14:04-0400Systolic blood rduecrey767 mm[Hg]Jose Maxim DO Work Phone: [facility] CenterAvtzlmfvsr55-14-8460 13:39-0400Body mass index (BMI) [Ratio]22.87 kg/m2[facility]05-08-2025 13:39-0400Body pdhina51.22 kgNoSt. Lukes [facility]05-08-2025 13:39-0400Diastolic blood tqclvumk68 mm[Hg]Noms [facility]05-08-2025 13:39-0400Systolic blood mm[Hg]Pablito SotoSaint Joseph Health CenterCeyzirzbkf63-96-3083 08:15-0400Body kloqqr630.2 cmSri Ramírez MD Work Phone: [phone] [place], [place] [address]Frkdpihpvx08-54-8574 08:15-0400Body mass index (BMI) [Ratio]23.05 kg/m2Sri Ramírez MD Work Phone: [phone] [place], [place] [address]Lgzlaegbkf56-92-6711 08:15-0400Body dzevhd69.77 kgSri Ramírez MD Work Phone: [phone])[facility] [place] [address]-07-2025 08:15-0400Diastolic blood mm[Hg]Sri Ramírez MD Work Phone: 1([phone])[facility] [place], [place] [address]Otdquznqub74-36-6057 08:15-0400Heart rate92 /min Sri Ramírez MD Work Phone: 1(159)[facility] [place], [place] [address]Azshuuruaj79-49-4675 08:15-0400Respiratory rate18 /minSri Ramírez MD Work Phone: 1(405)[facility] [place], [place] [address]Vjvkscvrmo42-73-2645 08:15-1739McD0% (BldA) [Mass fraction]99 %Sri Ramírez MD Work Phone: 1([phone])040-[address] [place], [place] [address]Spikuztlcj55-38-3486 08:15-0400Systolic blood xwpnlfiu899 mm[Hg]Sri Ramírez MD Work Phone: 1(823)683-[address] [place], [place] [address]Skcjbrekbg78-85-9252 08:03-0500Body mass index (BMI) [Ratio]22.96 kg/i2TvngxkReggie Donovan MAINTENANCE LEADER Work Phone: 1(395)400-[address] [place], [place] [address]Dswomrupsp24-70-2598 08:03-0500Body rfdxtytqftj60 [degF]Reggie Donovan MAINTENANCE LEADER Work Phone: 1(263)[facility] [place], [place] [address]Snynfensny33-04-2276 08:03-0500Body ujdxsx61.5 kg Reggie Donovan MAINTENANCE LEADER Work Phone: 1(548)[facility] [place], [place] [address]Wqgwjptnnl36-97-0681 08:03-0500Diastolic blood eqcmwbna43 mm[Hg]Reggie Donovan MAINTENANCE LEADER Work Phone: 1(397)[facility] [place] [address]-28-2025 08:03-0500Heart rate96 /min Reggie Farfangabriella MAINTENANCE LEADER Work Phone: [facility] CenterCweaaxflxx84-01-2921 08:03-8749MoO0% (BldA) [Mass fraction]98 %Reggie Donovan MAINTENANCE LEADER Work Phone: [facility] CenterCmyggjcwxd59-10-9654 08:03-0500Systolic blood jdgrgrel297 mm[Hg]Reggie Adolphgabriella MAINTENANCE LEADER Work Phone: [facility] CenterEnryudbdox56-21-5540 09:03-0500Body mass index (BMI) [Ratio]22.57 kg/m2Amy Connor PA Work Phone: [facility] CenterOtapitvovm14-69-6321 09:03-0500Body aqxxjr47.37 kgAmy Connor CUELLAR Work Phone: [facility] CenterPsqhtxktdp71-92-9836 09:03-0500Diastolic blood fhavuflv28 mm[Hg]Daja CUELLAR Work Phone: [facility] CenterSmkoshovor01-24-9091 09:03-0500Systolic blood amcquhsu660 mm[Hg]Daja Ryan PA Work Phone: [facility] CenterRprdhtronp63-51-7598 14:37-0500Body mass index (BMI) [Ratio]22.57 kg/o1Bjmde Maxim DO Work Phone: [facility] CenterDoiderztam20-77-8583 14:37-0500Body eredkw94.37 kgCorey Maxim DO Work Phone: [facility] CenterAgerlaqpde56-85-3841 14:37-0500Diastolic blood okoldtpv94 mm[Hg]Jose Maxim DO Work Phone: [facility] CenterIglculwnbb26-99-0973 14:37-0500Systolic blood lrsbezlc758 mm[Hg]Jose Maxim DO Work Phone: [facility] CenterMieettieyq65-09-0485 11:20-0500Body mass index (BMI) [Ratio]22.55 kg/z5Ixdxi Maxim DO Work Phone: [place] [address]Yyjqqwqwzh16-34-7560 11:20-0500Body nqyfjv47.32 kgCorey Maxim DO Work Phone: [place] [address]Mmajpucncd73-78-7680 11:20-0500Diastolic blood vbqbjfro65 mm[Hg]Jose Maxim DO Work Phone: [facility] CenterIfujxqpigc05-21-8257 11:20-0500Systolic blood jxgufkfy864 mm[Hg]Jose Maxim DO Work Phone: 1(038)792-[address] [place] [address]-19-2024 10:47-0500Blood Pressure LocationAurora Orzech [facility]11-19-2024 10:47-0500Diastolic blood celbdpkz16 mm[Hg]Bonita Orzech [facility]11-19-2024 10:47-0500Heart rate79 /minAurora Orzech [facility]11-19-2024 10:47-0500Respiratory rate19 /minAurora Orzech [facility]11-19-2024 10:47-0500Systolic blood segbycei011 mm[Hg]Bonita Orzech [facility]11-04-2024 11:11-0500Body mass index (BMI) [Ratio]22.4 kg/v9Lhbzz Maxim DO Work Phone: [place] [address]Gvdnzoclpe94-24-7877 11:11-0500Body .86 kgCorey Maxim DO Work Phone: [place] [address]Fmudbarexj46-98-2949 11:11-0500Diastolic blood rjtlidsp10 mm[Hg]Jose Maxim DO Work Phone: [place] [address]Pxfbzplubl94-60-2201 11:11-0500Systolic blood dszbyojf958 mm[Hg]Jose Maxim DO Work Phone: [facility] CenterIxekmqiprh15-75-4098 14:13-0400Body mass index (BMI) [Ratio]22.08 kg/m2Daja Umanajuve CUELLAR Work Phone: [facility]OSaint [facility] SpringsGawshbcsay52-29-9133 14:13-0400Body .96 kgDaja Umanajuve CUELLAR Work Phone: [facility] CenterCollbsqyso05-06-3111 14:13-0400Diastolic blood gmikdlxc33 mm[Hg]Daja Connor CUELLAR Work Phone: NOSaint [facility] Blue SpringsGkcvlozwnj05-85-8625 14:13-0400Systolic blood rvavcurj793 mm[Hg]Daja Umanajuve CUELLAR Work Phone: [facility] CenterGjzrcvegrc20-25-8935 11:52-0400Body mass index (BMI) [Ratio]22.42 kg/c4Hcdds Maxim DO Work Phone: [phone] CenterNieojorntt75-45-0841 11:52-0400Body wiyjwf14.92 kgCorey Maxim DO Work Phone: NOSaint [facility] of [facility] SpringsGzqipdhsre40-32-4946 11:52-0400Diastolic blood cbuvrfun00 mm[Hg]Jose Maxim DO Work Phone: NOSaint [facility] of Blue SpringsKqlaakouwn45-74-1896 11:52-0400Systolic blood eikitelp960 mm[Hg]Jose Maxim DO Work Phone: [facility] Encounters Encounter DateEncounter TypeCare ProviderFacilityStart: 02-16-2025 End: 14-48-9849Aoyitskjg Result EncounterCorey Maxim DO Work Phone: noMS External Department UnsolicitedStart: 02-16-2025 End: 16-08-5788Qgknqxtdw Result EncounterCorey Maxim DO Work Phone: NOMS External Department UnsolicitedStart: 02-15-2025 End: 00-92-8622Dbiznnqfe Result EncounterCorey Maxim DO Work Phone: noms External Department UnsolicitedStart: 02-15-2025 End: 07-95-1546Idddyzstx Result EncounterCorey Maxim DO Work Phone: noms External Department UnsolicitedStart: 02-07-2025 End: 40-55-0835Ijxtmx flowsheetCorey Maxim DO Work Phone: NO Vanesa OBGYNStart: 02-07-2025 End: 09-45-6698Svckse flowsheetCorey Maxim DO Work Phone: no [place] OBGYNStart: 02-07-2025 End: 14-48-4033Zcxtsjyr flow sheetCorey Maxim DO Work Phone: noms [place] OBGYNComment on above:Third trimester ([facility]); 33 weeks gestation of ([facility])Start: 02-07-2025 End: 32-25-1790omtnrxllspXPKUT FAZIONot AvailableStart: 02-02-2025 End: 61-84-3655Hcgyrqmha Result EncounterGeneric External Data ProviderNOMS External Department UnsolicitedStart: 02-02-2025 End: 98-50-7761Gnyqehtby Result EncounterGeneric External Data ProviderNOMS External Department UnsolicitedStart: 01-24-2025 End: 90-20-8364Okyutndl flow sheetCorey Maxim DO Work Phone: NO [place] OBGYNComment on above:Encounter for ultrasound recheck of choroid plexus cyst, antepartum ([facility]); Third trimester ([facility]); 31 weeks gestation of ([facility]); size inconsistent with dates ([facility])Start: 01-24-2025 End: 28-01-1994lbujdhxwyjUJQYI FAZIONot AvailableStart: 01-09-2025 End: 70-61-2820Ujigsj flowsSp Gunter MAINTENANCE LEADER Work Phone: NOMS [place] OBGYNStart: 01-09-2025 End: 69-84-1834Punqyp flowsSp Gunter MAINTENANCE LEADER Work Phone: NOMS [place] OBGYNStart: 01-09-2025 End: 62-72-5310Psikhidl flow sheetJake Gunter MAINTENANCE LEADER Work Phone: NOMS [place] OBGYNComment on above:Third trimester ([facility]); 29 weeks gestation of ([facility]); Choroid plexus cystStart: 01-09-2025 End: 85-60-4133afiycbccraIYGANNBW EBERLYNot AvailableStart: 12-28-2024 End: 89-89-1955cxjprmlmloWMM RAMEYNot AvailableStart: 12-28-2024 End: 77-99-6349Qvhshanf flow sheetDaja CUELLAR Work Phone: NOMS [facility] OBGYNComment on above:Second trimester ([facility]); 27 weeks gestation of ([facility])Start: 12-28-2024 End: 21-73-5918Hrlros Minnie CUELLAR Work Phone: NOMS [facility] OBGYNStart: 12-28-2024 End: 50-77-8409Qgtlii Minnie CUELLAR Work Phone: NOMS [facility] OBGYNStart: 12-10-2024 End: 67-09-3956Mbjmggjnh Result EncounterGeneric External Data ProviderNOMS External Department UnsolicitedStart: 12-10-2024 End: 58-96-5231Ufpiqxwit Result EncounterGeneric External Data ProviderNOMS External Department UnsolicitedStart: 12-05-2024 End: 26-48-6781Ztclwklbi Result EncounterGeneric External Data ProviderNOMS External Department UnsolicitedStart: 12-05-2024 End: 38-39-5826Kvkobhmqb Result EncounterGeneric External Data ProviderNOMS External Department UnsolicitedStart: 12-05-2024 End: 36-50-4545Fgsgmkyb flow sheetBrucey Maxim DO Work Phone: NOMS [facility] OBGYNComment on above:Acne, unspecified acne type (Primary Dx); Second trimester ([facility]); 24 weeks gestation of ([facility]); Diabetes mellitus screening; Screening, , for anatomic survey ([facility])Start: 12-05-2024 End: 85-95-6411tboqlaafmxGYTXK FAZIONot AvailableStart: 11-07-2024 End: 22-39-1574Jldtihdaj Result EncounterGeneric External Data ProviderNOMS External Department UnsolicitedStart: 11-07-2024 End: 41-72-3576Ashmmknkq Result EncounterGeneric External Data ProviderNOMS External Department UnsolicitedStart: 11-07-2024 End: 15-53-5875Hnumfwkb flow sheetCorey Maxim DO Work Phone: noms [place] OBGYNComment on above:Screening, , for anatomic survey ([facility]) (Primary Dx); Second trimester ([facility]); 20 weeks gestation of ([facility])Start: 11-07-2024 End: 98-76-2941umhhhwpvqnNAMRN FAZIONot AvailableStart: 11-02-2024 End: 10-10-3539Aldswlvds Result EncounterCorey Maxim DO Work Phone: noms External Department UnsolicitedStart: 11-02-2024 End: 28-65-1503Stzbcznvo Result EncounterCorey Maxim DO Work Phone: noms External Department UnsolicitedStart: 10-10-2024 End: 35-49-4883Elnxesnf flow sheetCorey Maxim DO Work Phone: noms BCP OBComment on above:Second trimester ([facility]); 16 weeks gestation of ([facility]); Screening, , for anatomic survey ([facility])Start: 10-10-2024 End: 96-77-9924ypnusfgdfyIUBAV FAZIONot AvailableStart: 10-10-2024 End: 44-38-6388Ahzgec flowsheetCorey Maxim DO Work Phone: NOPQ BCP OBStart: 10-10-2024 End: 61-22-2293Etxvkv flowsheetCorey Maxim DO Work Phone: noms BCP OBStart: 09-28-2024 End: 17-28-1214Yrolhl outpatient visit 15 minutesAmy Connor CUELLAR Work Phone: noms BCP OBComment on above:Second trimester ([facility]); 14 weeks gestation of ([facility]); Screen for STD (sexually transmitted disease)Start: 09-28-2024 End: 33-68-4791badbcmugubXOV CONNORNot AvailableStart: 09-28-2024 End: 92-25-6451Oemadm flowsheetDaja CUELLAR Work Phone: noms BCP OBStart: 09-28-2024 End: 20-51-1220Mixpqg flowsheetDaja CUELLAR Work Phone: noms BCP OBStart: 09-28-2024 End: 54-27-9663Nmpxgyfh Result EncounterDaja CUELLAR Work Phone: noms External Department UnsolicitedStart: 09-13-2024 End: 34-18-7514Baaglu flowsheetCorey Maxim DO Work Phone: noms BCP OBStart: 09-13-2024 End: 93-04-0212Guuncc flowsheetCorey Maxim DO Work Phone: noms BCP OBStart: 09-13-2024 End: 42-57-5609tfolyylsqvIZUGC FAZIONot AvailableStart: 09-13-2024 End: 20-32-1666Kxtgjjqt flow sheetCorey Maxim DO Work Phone: noms BCP OBComment on above:First trimester ; 12 weeks gestation of ; Urinary tract infection in mother during , antepartumStart: 08-22-2024 End: 70-67-5243Msiqwnnet Result EncounterCorey Maxim DO Work Phone: noms External Department UnsolicitedStart: 08-22-2024 End: 36-64-9306Iktjacbri Result EncounterCorey Maxim DO Work Phone: NOBO External Department UnsolicitedStart: 08-18-2024 End: 68-76-8597hgueilidosKPT RAMEYNot AvailableStart: 08-18-2024 End: 38-52-1167Kegbiz outpatient visit 5 minutesNoms Bcp Ob Maxim NurseNOMS BCP OBComment on above:GA: 9g0zIhonf: 08-18-2024 End: 68-51-3124istkfmyjbuRHA RAMEYNot AvailableStart: 08-12-2024 End: 93-19-0221Jfivpnkdu Result EncounterGeneric External Data ProviderNOMS External Department UnsolicitedStart: 08-12-2024 End: 72-10-8330Bdcnvlzlt Result EncounterGeneric External Data ProviderNOMS External Department UnsolicitedStart: 08-12-2024 End: 92-87-6754Jfepaqsz Result EncounterAmy Connor PA Work Phone: noms External Department UnsolicitedStart: 08-02-2024 ambulatoryAurora X OrzechFacility:EU [place]uskyStart: 08-01-2024 End: 91-45-8139oypcssesieTAJOFEPP E PERRYFacility:EU [place]vueStart: 07-20-2024 End: 13-79-0450cqamxvkbreCPYG F BOWERNot AvailableStart: 07-18-2024 End: 84-00-9085Icfpxb Jesus Ramírez MD Work Phone: NORO FNR FMStart: 07-18-2024 End: 36-94-6526Hxtjpr Jesus Ramírez MD Work Phone: noms FNR FMStart: 07-18-2024 End: 86-22-3843Vgopph outpatient visit 15 minutesSri Ramírez MD Work Phone: noms FNR FMComment on above:Mass of lower outer quadrant of left breast (Primary Dx)Start: 07-18-2024 End: 42-57-2818xvgofqpplnCTBD F BOWERNot AvailableStart: 06-10-2024 End: 37-69-6764Iypdfp flowsheetBremane Donovan MAINTENANCE LEADER Work Phone: NOVE FNR FMStart: 06-10-2024 End: 41-04-8466Kbvmqu flowsheetBremane Donovan MAINTENANCE LEADER Work Phone: NOVZ FNR FMStart: 06-10-2024 End: 57-62-0926Pstkjpove encounterSri Ramírez MD Work Phone: noms FNR FMStart: 06-10-2024 End: 55-16-5550Lpaieq outpatient visit 25 minutesBremane Donovan MAINTENANCE LEADER Work Phone: noms FNR FMComment on above:Encounter for removal of sutures (Primary Dx); Cellulitis of finger of right handStart: 06-10-2024 End: 18-20-4310luvklbqxxgKNRBCO MAJORSNot AvailableStart: 05-23-2024 End: 96-91-9296Pcwlak Minnie CUELLAR Work Phone: noms BCP OBStart: 05-23-2024 End: 70-80-2346Eyrndo Minnie CUELLAR Work Phone: noms BCP OBStart: 51-35-5811qljcbdfsusVTVBLJGF E PATRICIA Facility:EU [place]Start: 05-23-2024 End: 80-38-5073ovrkwepiznXDH RAMEYNot AvailableStart: 05-23-2024 End: 55-16-6537Kqiuso outpatient visit 15 minutesAmy Connor CUELLAR Work Phone: NOMS BCP OBComment on above:Vaginal discharge; Vaginal burningStart: 05-16-2024 End: 66-72-9112thiuwtfadlAYFTVMTB E PERRYFacility:EU [place]Start: 05-16-2024 End: 65-06-1789Uzoxtny encounter procedureJENNIFER E PATRICIA [facility] start: 04-20-2024 End: 31-74-6713Uuhgzeraymond CUELLAR Work Phone: noms BCP OBStart: 04-20-2024 End: 60-39-2801Spmvvj flowsheetAmy Connor CUELLAR Work Phone: noms BCP OBStart: 04-20-2024 End: 21-75-0332Dhieht follow up visit related to original pxCorey Maxim DO Work Phone: noms [facility] OBComment on above:Postoperative examination Start: 04-20-2024 End: 29-65-0109yztbqhubuwLHYTA FAZIONot AvailableStart: 04-01-2024 End: 14-42-8552Bshgmtinm Result EncounterGeneric External Data ProviderNOMS External Department UnsolicitedStart: 04-01-2024 End: 17-36-9237Hzlxqzmkw Result EncounterGeneric External Data ProviderNOMS External Department UnsolicitedStart: 03-22-2024 End: 21-35-9546Hdlqjiins Result EncounterGeneric External Data ProviderNOMS External Department UnsolicitedStart: 03-22-2024 End: 17-48-0931Njflqqtmn Result EncounterGeneric External Data ProviderNOMS External Department UnsolicitedStart: 03-21-2024 End: 45-41-1552cbvpvazqftSkzenu J GaleaFacility:FTMCStart: 03-21-2024 End: 26-14-6924Fmb Drop offAlysha J Leroyea [facility] Start: 03-21-2024 End: 59-85-8020cqzzfxrkmiVyrjwj X OrzechFacility:EU [place]Start: 03-21-2024 End: 87-33-9129Miycdwu encounter procedureAurora X Orzech [facility] start: 03-09-2024 End: 75-16-3583Aegpvz flowsheetCorey Maxim DO Work Phone: noms [facility] OBStart: 03-09-2024 End: 51-29-9079Zmrlzi flowsheetCorey Maxim DO Work Phone: noms BCP OBStart: 03-09-2024 End: 60-43-7333Fkilcn outpatient visit 15 minutesCorey Maxim DO Work Phone: noms BCP OBComment on above:Pre-op evaluation; Pelvic pain in female; Bacterial vaginosisStart: 03-09-2024 End: 68-78-6688Ofottuhvmwmnr examination doneCorey Maxim DO Work Phone: NOMS HealthcareStart: 03-09-2024 End: 96-22-4282hgrkacqmxgXLNLK FAZIONot AvailableStart: 03-01-2024 End: 40-11-9538sthlugdcfgEauuzn X OrzechFacility:EU [place]vueStart: 03-01-2024 End: 72-26-4434Qzghmmi encounter procedureAurora X Orzech [facility] start: 02-15-2024 End: 17-81-2004Aatlzv flowsheetCorey Maxim DO Work Phone: noms BCP OBStart: 02-15-2024 End: 25-53-7062Ppltzz flowsheetCorey Maxim DO Work Phone: noms BCP OBStart: 02-15-2024 End: 17-17-2724Tgxkgb outpatient visit 15 minutesCorey Maxim DO Work Phone: noms BCP OBComment on above:Bacterial vaginosis; Urinary tract infection without hematuria, site unspecified; Vaginal odor; Bacterial infection due to mycoplasmaStart: 02-15-2024 End: 76-47-1594bcuhjstqupONSGK FAZIONot AvailableStart: 02-03-2024 End: 49-64-6063Khzahwbxx Result EncounterGeneric External Data ProviderNOMS External Department UnsolicitedStart: 02-03-2024 End: 59-95-9671Tvmwfldms Result EncounterGeneric External Data ProviderNOMS External Department UnsolicitedStart: 01-27-2024 End: 44-27-3191Pdlzld flowsheetDaja CUELLAR Work Phone: NOMS BCP OBStart: 01-27-2024 End: 42-34-0485Bhyobu flowsheetDaja [place] PA Work Phone: NOMS BCP OBStart: 01-27-2024 End: 88-31-0116Engkbdcbp Result EncounterGeneric External Data ProviderNOMS External Department UnsolicitedStart: 01-27-2024 End: 14-17-0652Aiudotg encounter procedureAmy Connor PA Work Phone: [facility] Work Phone: Start: 01-27-2024 End: 47-93-3771Fdbgkcjd preventive med est patient 18-39 yrsAmy Connor CUELLAR Work Phone: noms BCP OBComment on above:Well woman exam with routine gynecological examStart: 01-11-2024 End: 80-42-2751Mbkomo flowsheetCorey Maxim DO Work Phone: NOMS BCP OBStart: 01-11-2024 End: 56-69-4945Mlauqyan Result EncounterCorey Maxim DO Work Phone: NOMS External Department UnsolicitedStart: 01-11-2024 End: 06-62-5765Whntgndf Result EncounterCorey Maxim DO Work Phone: noMS External Department UnsolicitedStart: 01-11-2024 End: 85-17-3790Zibndg outpatient visit 15 minutesCorey Maxim DO Work Phone: noMS BCP OBComment on above:Pelvic pain in female Start: 09-22-2023 End: 14-45-1735Erlkbegum department patient visitSRI [facility] Hospitaltart: 05-03-2022 End: 90-52-5724xsgxkqazcaYS MARY BOWERFacility:X8Vpppn: 06-19-2021 End: 30-22-3160zncpaqhqctAIOYDQMJASON [facility] HospitalStart: 06-19-2021 End: 42-41-3480Qldkwtycnp hospital visit by Steph [address] RadiologyComment on above:Ureteral stone with hydronephrosis Ureteral stone with hydronephrosis; Suprapubic pain; Dysuria; Urgency of urinationStart: 06-12-2021 End: 62-35-6543zqkfdvuoalTURONPBCommunity Hospital HospitalStart: 06-12-2021 End: 11-42-9637Utlbfktekg hospital visit by Reji Ramírez MD Work Phone: mthz LaboratoryComment on above:Ureteral stone with hydronephrosis; Suprapubic pain; Dysuria; Urgency of urinationStart: 05-21-2021 End: 68-23-4764dudjvikjmmIZ JOSE FAZIOFacility:H1 Procedures DateProcedureProcedure DetailPerforming ClinicianStart: 23-53-0126SA OB BPP W NON-STRESSCorey Maxim DO Work Phone: Start: 35-68-7365PNL UA (CLEAN/CATCH) 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 IF IND.Jose Maxim DO Work Phone: Start: 19-48-2924Blcev dip stick/tablet rgnt non-auto w/o micrscpCorey Maxim DO Work Phone: Start: 05-76-0100JY OB GROWTHGeneric External Data ProviderStart: 08-48-5489Hwxql dip stick/tablet rgnt non-auto w/o micrscpCorey Maxim DO Work Phone: Start: 73-99-6167Qzlay dip stick/tablet rgnt non-auto w/o micrscpJake Gunter NP Work Phone: Start: 21-75-4539Riwhg dip stick/tablet rgnt non-auto w/o micrscpAmy Connor CUELLAR Work Phone: Start: 76-81-2856OLKGSAU 1 HOURCorey Maxim DO Work Phone: Start: 42-74-0631PD for multiple gestation limitedGeneric External Data ProviderStart: 98-54-7997Ktqho dip stick/tablet rgnt non-auto w/o micrscpCorey Maxim DO Work Phone: Start: 78-93-5465Mhiar dip stick/tablet rgnt non-auto w/o micrscpCorey Maxim DO Work Phone: Start: 32-96-2436OP OB ANATOMYGeneric External Data ProviderStart: 58-62-9942AO OB CERVICAL LENGTHCorey Maxim DO Work Phone: Start: 65-26-9027RLQ, SERUM, OPEN SPINA BIFIDAGeneric External Data ProviderStart: 81-12-6755Irnre dip stick/tablet rgnt non-auto w/o micrscpCorey Maxim DO Work Phone: Start: 40-58-2880TJZXTBGUJ VAGINITIS (HTRX)Daja CUELLAR Work Phone: Start: 60-20-9361Kojum dip stick/tablet rgnt non-auto w/o micrscpAmy Connor CUELLAR Work Phone: Start: 67-31-4333Eabnt dip stick/tablet rgnt non-auto w/o micrscpCorey Maxim DO Work Phone: Start: 13-94-5951TYG TESTGeneric External Data ProviderStart: 95-85-5819Uhknr dip stick/tablet rgnt non-auto w/o micrscpCorey Maxim DO Work Phone: Start: 55-91-1003Uaopanv bacterial quanttative colony count urineDaja CUELLAR Work Phone: Start: 11-74-1265NYLNQ CULTURE - FRMCGeneric External Data ProviderStart: 64-78-6030ULS CBC WITH AUTO DIFFCorey Maxim DO Work Phone: Start: 42-09-0582AB ABDOMEN 1VGeneric External Data ProviderStart: 14-60-6708ND RENAL BIGeneric External Data ProviderStart: 70-42-6577Dzzum dip stick/tablet rgnt non-auto w/o micrscpCorey Maxim DO Work Phone: Start: 25-17-8542WV PELVISGeneric External Data ProviderStart: 49-07-8521GPD,APTIMA HPV,AGE GDLNAmy Connor CUELLAR Work Phone: Start: 88-91-7541Eccc cerv/vag auto thin layer prep mnl screenCorey Maxim DO Work Phone: Start: 45-88-6142AVNZNWG TRACT INFECTION (HTRX)Jose Maxim DO Work Phone: Start: 01-11-2024 End: 31-36-3840Qglpo dip stick/tablet rgnt non-auto w/o micrscpCorey Maxim DO Work Phone: Start: 99-16-2492Zcrzhseqnu exam abdomen 1 viewBethany W JamOriginell HEATING ELEMENT REPAIRER - AIRDOX FITTER Work Phone: Start: 59-86-0600Gc retroperitoneal real time w/image completeBethany W JamOriginell HEATING ELEMENT REPAIRER - AIR[employer] FITTER Work Phone: Start: 31-99-0596Paqlf dip stick/tablet reagent auto microscopyBethany W JamOriginell HEATING ELEMENT REPAIRER - AIRDO[employer] FITTER Work Phone: Start: 19-88-2248TbfgaonxgkhKghrej Gigi Plan of Treatment DateCare ActivityDetailAuthorStart: 95-79-4428VYoM/Tdap/Td vaccine (8 - Td or Tdap)DTaP/Tdap/Td vaccine (8 - Td or Tdap)[facility]Start: [facility]24[facility]2030 DTaP/Tdap/Td Vaccines (8 - Td or Tdap)DTaP/Tdap/Td Vaccines (8 - Td or Tdap)[facility] HealthcareStart: 02-21-2025 End: 99-37-2179Zwluelj encounter tyvlkbykc67/11/2025 10:30 AM EST Routine [facility] [address] [id number] Jose Pan, DO [address] [place] [place] [address] NOMS [facility] OBGYNStart: 02-07-2025 End: 59-25-8997Qnmelvw encounter procedureNOMS [place] OBGYNComment on above: ArrivedStart: 02-06-2025 End: 06-81-7218Ohjqzvb encounter procedureNOMS BCP OBStart: 01-24-2025 End: 19-81-5316KV for pregnancyNOMS HealthcareComment on above:Expected: 01/24/2025, Expires: 05/27/2025Start: 01-24-2025 End: 11-66-1750Dbzxocw encounter lolyuvolz82/14/2025 10:00 AM EDT Routine [facility]OMGabriella [place] [facility] [address] [place] [phone] Jose Pan, DO [address] [place] [address] NOMGabriella [place] OBGYNStart: 01-24-2025 End: 54-23-9003Xuknkbvpdehu / ancillary services zfxjubknov20/14/2025 9:30 AM EDT Ancillary Procedure [facility]Gabriella [place] [facility] [address] [place] [phone] NOM[facility] [place] OBGYNStart: 01-23-2025 End: 55-83-5993SK for pregnancyUS OB limited 1+ fetuses Imaging Routine Encounter for ultrasound recheck of choroid plexus cyst, antepartum ([facility]) Expected: 01/23/2025 (Approximate), Expires: 01/23/2026[facility] Work Phone: comment on above:Expected: 01/23/2025 (Approximate), Expires: 01/23/2026Start: 01-09-2025 End: 61-23-6739DY for pregnancyUS OB limited 1+ fetuses Imaging Routine Choroid plexus cyst Expected: 01/09/2025, Expires: 04/10/2025[facility] Work Phone: comment on above:Expected: 01/09/2025, Expires: 04/10/2025Start: 01-09-2025 End: 34-09-0986Crxucjw encounter procedureNOMS [place] OBGYNComment on above: ArrivedStart: 12-28-2024 End: 09-07-3773Oqdiohp encounter /17/2025 1:20 PM EDT Routine NOMGabriella [place] [facility] [address] [place], [id number] Jose Pan DO [address] [address] NOMS [place] OBGYNStart: 60-64-7965JXDJW- 19 Vaccine ( season)COVID-19 Vaccine ( season)NOMS HealthcareStart: 61-42-3120Vyueqfnpn vaccinationFILLMORE COMMUNITY MEDICAL CENTER HealthcareStart: 12-08-2024 End: 71-24-6059HW for pregnancyUS OB 14+ weeks anatomy scan Imaging Routine Screening, , for anatomic survey ([facility]) Expected: 12/08/2024, Expires: 02/07/2025[facility] [employer] ([email or web address]) Work Phone: comment on above:Expected: 12/08/2024, Expires: 02/07/2025Start: 12-05-2024 End: 70-19-2639APG panel - Blood by Automated countCBC Lab Routine Diabetes mellitus screening Expected: 12/05/2024 (Approximate), Expires: 12/05/2025[facility] Work Phone: Comment on above:Expected: 12/05/2024 (Approximate), Expires: 12/05/2025Start: 12-05-2024 End: 72-92-1894Efgedskyqdl of glucose 1 hour after glucose challenge for glucose tolerance testGlucose tolerance, 1 hour Lab Routine Diabetes mellitus screening Expected: 12/05/2024 (Approximate), Expires: 12/05/2025[facility] HealthcareComment on above:Expected: 12/05/2024 (Approximate), Expires: 12/05/2025Start: 12-05-2024 End: 51-85-7444QJ for pregnancyUS OB 14+ weeks anatomy scan Imaging Routine Screening, , for anatomic survey ([facility]) Expected: 12/05/2024, Expires: 03/07/2025[facility] Work Phone: comment on above:Expected: 12/05/2024, Expires: 03/07/2025Start: 12-05-2024 End: 17-28-8503Awauxznzfbss / ancillary services flyzjhxtgs50/25/2025 1:00 PM EDT Ancillary Procedure [facility] [address] [place] [address] [place] [address] LDMH V[facility]a OBGYNStart: 11-07-2024 End: 91-99-7560Yocefiz encounter procedureNOMS BCP OBStart: 10-10-2024 End: 70-24-8993Helahwr encounter procedureNOMS BCP OBComment on above:Arrived Start: 10-10-2024 End: 13-66-5919Qboru fetoprotein, maternalAlpha fetoprotein, maternal Lab Routine Second trimester ([facility]) Expected: 10/10/2024 (Approximate), Expires: 12/10/2024[facility] HealthcareComment on above:Expected: 10/10/2024 (Approximate), Expires: 12/10/2024Start: 10-10-2024 End: 08-89-6030PO for pregnancyUS OB 14+ weeks anatomy scan Imaging Routine Screening, , for anatomic survey ([facility]) Expected: 10/10/2024, Expires: 01/10/2025[facility] [employer] ([email or web address]) Work Phone: comment on above:Expected: 10/10/2024, Expires: 01/10/2025Start: 09-28-2024 End: 01-22-3225Qysrhcq encounter qeribcuek30/ 2:50 PM EDT Office Visit [facility] [address] [place] [address] Daja Ryan PA [address] [place], [place] [id number] [facility] OBComment on above:ArrivedStart: 09-14-2024 End: 50-03-8490Yskrhwa encounter sxkwygkaf12/04/2025 1:40 PM EDT Routine [facility] [address] [place] [address] Jose Pan DO [address] [place], [place] [id number] NOMS BCP OBStart: 08-18-2024 End: 17-26-1649USG/RhABO/Rh Lab Routine Missed menses , unspecified gestational age Expected: 08/18/2024 (Approximate), Expires: 08/18/2025[facility] HealthcareComment on above:Expected: 08/18/2024 (Approximate), Expires: 08/18/2025Start: 08-18-2024 End: 81-78-9503Fvgco type and Indirect antibody screen panel - BloodType and screen Lab Routine Missed menses , unspecified gestational age Expected: 08/18/2024 (Approximate), Expires: 08/18/2025[facility] Work Phone: comment on above:Expected: 08/18/2024 (Approximate), Expires: 08/18/2025Start: 08-18-2024 End: 89-39-4668Mkzup of abuse panel - Urine by Screen methodRapid drug screen, urine Lab Routine , unspecified gestational age Encounter for supervision of normal first in first trimester Expected: 08/18/2024 (Approximate), Expires: 08/18/2025[facility] HealthcareComment on above:Expected: 08/18/2024 (Approximate), Expires: 08/18/2025Start: 08-18-2024 End: 38-39-8260gtjgfrtkvl06/08/2025 1:00 PM EDT Initial [facility] [address] [place] [address] DUXH BCP OBStart: 08-18-2024 End: 64-50-3060Xmkhxrveanej / ancillary services /08/2025 12:30 PM EDT Ancillary Procedure [facility] [address] [facility] [place] [address] [place] [phone] HOFH BCP OBStart: 07-20-2024 End: 27-48-0557Ugpxlubfydxl / ancillary services kzeqjwsudd66/09/2025 3:30 PM EDT Ancillary Procedure [facility] [address] [facility] [place] [address] ZMQV FNR ULTRASOUNDStart: 07-18-2024 End: 32-27-1773QC Breast - leftLeft breast US complete Imaging Routine Mass of lower outer quadrant of left breast Expected: 07/18/2024, Expires: 09/17/2025 [facility] Work Phone: Comment on above:Expected: 07/18/2024, Expires: 09/17/2025Start: 07-18-2024 End: 35-50-9874Yamowhy encounter xbeuwmylx02/07/2025 8:20 AM EDT Office Visit [facility] FM [address] [facility] [place] [phone] Sri Ramírez MD [address] [facility] [place] [address] ArrivedNOMS FNR FMComment on above:ArrivedStart: 06-10-2024 End: 56-75-4419Vqjisap encounter cjiwlhqud32/28/2025 8:00 AM EST Office Visit [facility] FM [address] [facility] [place] [phone] Reggie Donovan NP [address] [facility] [place] [address] ArrivedNOMS FNR FMComment on above:ArrivedStart: 04-20-2024 End: 58-83-4500Enfmbfp encounter thznhohlp78/08/2025 8:50 AM EST Office Visit [facility] OB [address] [facility] [place] [address] Daja Ryan PA [address] [facility] [address] [place], [place] [id number] ArrivedNOMS BCP OBComment on above:ArrivedStart: 03-09-2024 End: 93-08-3864Fhptcnb encounter jmavzxgcm19/27/2024 11:20 AM EST Consult [facility] OB [address] [facility] [address] [place] [address] Jose Pan DO [address] [place], [place] [id number] ArrivedNOMS BCP OBComment on above:ArrivedStart: 02-15-2024 End: 26-70-7079Ldrirph encounter procedureNOMS BCP OBComment on above:Arrived Start: 02-03-2024 End: 77-11-9000Atbvaknopibl / ancillary services ttwomlpnef79/23/2024 10:30 AM EDT Ancillary Procedure [facility] [address] [place], [place] [phone] [facility] BCP OBStart: 01-27-2024 End: 86-30-4330Jeqnwvr encounter procedureNOMS BCP OBComment on above:Arrived Start: 01-20-2024 End: 39-86-4757Egibcdptyjhq / ancillary services emqshulvvq05/09/2024 8:30 AM EDT Ancillary Procedure [facility] [address] [place] [address] [facility]OM[facility] BCP OBStart: 01-11-2024 End: 59-73-8756LEGFTKDD(R) ADVANCED VAGINITIS PLUS, TMASURESWAB(R) ADVANCED VAGINITIS PLUS, TMA Pathology and Cytology Routine Pelvic pain in female Expect ed: 01/11/2024 (Approximate), Expires: 01/10/2025[facility] Work Phone: comment on above:Expected: 01/11/2024 (Approximate), Expires: 01/10/2025Start: 01-11-2024 End: 84-24-6986ZO for pregnancyUS PELVIS-TRANSVAG IF INDICATED Imaging Routine Pelvic pain in female Expected: 01/11/2024 (Approximate), Expires: 01/10/2025 [facility] HealthcareComment on above:Expected: 01/11/2024 (Approximate), Expires: 01/10/2025Start: 77-34-1954Cuacydldp vaccinationInfluenza Vaccine (#1)[facility] HealthcareStart: 06-27-2021 End: 24-28-7622Fznjfwc encounter vztqumfxn05/17/2022 Office Visit Urology Jason Bradley, HEATING ELEMENT REPAIRER - [employer] FITTER [address] [facility] [address] [place], [id number] [facility]Start: 06-19-2021 End: 12-79-6523Jwxlkjp encounter fnnqvboon53/09/2022 [facility]oundStart: 06-95-5538TWCNU-19 Vaccine (3 - Booster for Pfizer series)COVID-19 Vaccine (3 - Booster for Pfizer series)[facility]: 80-84-4971Pjydlwokk vaccinationFlu vaccine (#1)[facility] SystemStart: 2018 Screening for malignant neoplasm of cervixPap smearTrinity Health SystemStart: 2013 Screening for Chlamydia trachomatisChlamydia screenTrinity Health SystemStart: 02-11-2012 HIV screeningHIV screenTrinity Health SystemStart: 84-25-6539Yolbhft of varicella vaccinationVaricella Vaccines (1 of 2 - 13+ 2-dose series)[facility] CenterStart: 01-62-1297Ytdzemnbpl ScreenDepression [facility] CenterStart: 2003 Pneumococcal 0-64 years Vaccine (1 of 2 - PPSV23)Pneumococcal 0-64 years Vaccine (1 of 2 - PPSV23)[facility] SystemStart: 30-08-1016Brpplnhde vaccine (1 of 2 - 2- dose childhood series)Varicella vaccine (1 of 2 - 2-dose childhood series)[facility] SystemStcrystal falls: 57-73-9054Ecbineqgx C screeningHepatitis C screenMercy Health Bacteria identified in Urine by CultureUrine culture Microbiology Routine Pelvic pain in female Ordered: 01/11/2024[facility] HealthcareComment on above:Ordered: 01/11/2024acteria identified in Urine by CultureUrine culture Microbiology Routine 08/12/2024 8:[facility] Work Phone: bacteria identified in Urine by CultureUrine culture Microbiology Routine Missed menses Ordered: 08/18/2024[facility] HealthcareComment on above:Ordered: 08/18/2024BC W Auto Differential panel - BloodCBC and differential Lab Routine Missed menses , unspecified gestational age Ordered: 08/18/2024[facility] HealthcareComment on above:Ordered: 08/18/2024HLAMYDIA TRACHOMATIS (GENITO/STI)CHLAMYDIA TRACHOMATIS (GENITO/STI) Lab Routine Vaginal odor Ordered: 02/15/2024[facility] HealthcareComment on above:Ordered: 02/15/2024 CHLAMYDIA TRACHOMATIS (GENITO/STI)CHLAMYDIA TRACHOMATIS (GENITO/STI) Lab Routine Pelvic pain in female Ordered: 01/11/2024[facility] HealthcareComment on above: Ordered: 01/11/2024HLAMYDIA TRACHOMATIS (GENITO/STI)CHLAMYDIA TRACHOMATIS (GENITO/STI) Lab Routine Vaginal discharge Vaginal burning Ordered: 05/23/2024 [facility] HealthcareComment on above:Ordered: 5CHLAMYDIA TRACHOMATIS (GENITO/STI)CHLAMYDIA TRACHOMATIS (GENITO/STI) Lab Routine Screen for STD (sexually transmitted disease) Ordered: 09/28/2024[facility] HealthcareComment on above:Ordered: 09/28/2024 End: 21-98-9283Nbnrace, UrineMercy Health Work Phone: comment on above:1 Occurrences starting 06/12/2021 until 2Cytology Cervical or vaginal smear or scraping studyPap Smear Pathology and Cytology Routine Well woman exam with routine gynecological exam Ordered: 01/27/2024[facility] Healthcare Work Phone: comment on above:Ordered: 01/27/2024Hemoglobin A1c/Hemoglobin.total in BloodHemoglobin A1c Lab Routine Missed menses , unspecified gestational age Ordered: 08/18/2024[facility] HealthcareComment on above: Ordered: 08/18/2024Hepatitis B virus surface Ag [Presence] in Serum or Plasma by ImmunoassayHepatitis B surface antigen Lab Routine Missed menses , unspecified gestational age Ordered: 08/18/2024[facility] HealthcareComment on above: Ordered: 08/18/2024Hepatitis C virus Ab [Presence] in Serum or Plasma by ImmunoassayHepatitis C antibody Lab Routine Missed menses , unspecified gestational age Ordered: 08/18/2024[facility] HealthcareComment on above:Ordered: 08/18/2024HIV-1/HIV-2 antigen/antibody combination immunoassayHIV-1 and HIV-2 antibodies Lab Routine Missed menses , unspecified gestational age Ordered: 08/18/2024[facility] HealthcareComment on above:Ordered: 08/18/2024Neisseria gonorrhoeae DNA [Presence] in Unspecified specimen by REKHA with probe detection Neisseria gonorrhea DNA probe, direct Lab Routine Vaginal odor Ordered: 02/15/2024[facility] HealthcareComment on above:Ordered: 02/15/2024Neisseria gonorrhoeae DNA [Presence] in Unspecified specimen by REKHA with probe detection Neisseria gonorrhea DNA probe, direct Lab Routine Pelvic pain in female Ordered: 01/11/2024[facility] HealthcareComment on above:Ordered: 01/11/2024Neisseria gonorrhoeae DNA [Presence] in Unspecified specimen by REKHA with probe detection Neisseria gonorrhea DNA probe, direct Lab Routine Vaginal discharge Vaginal burning Ordered: 05/23/2024[facility] HealthcareComment on above:Ordered: 05/23/2024 Neisseria gonorrhoeae DNA [Presence] in Unspecified specimen by REKHA with probe detectionNeisseria gonorrhea DNA probe, direct Lab Routine Screen for STD (sexually transmitted disease) Ordered: 09/28/2024[facility] HealthcareComment on above:Ordered: 09/28/2024Reagin Ab [Presence] in Serum by RPRRPR Lab Routine Missed menses , unspecified gestational age Ordered: 08/18/2024[facility] HealthcareComment on above:Ordered: 08/18/2024Rubella antibody, IgGRubella antibody, IgG Lab Routine Missed menses , unspecified gestational age Ordered: 08/18/2024[facility] CenterComment on above:Ordered: 08/18/2024 SURESWAB(R) ADVANCED VAGINITIS PLUS, TMASURESWAB(R) ADVANCED VAGINITIS PLUS, TMA Pathology and Cytology Routine Bacterial vaginosis Vaginalodor Ordered: 02/15/2024[facility] Work Phone: comment on above:Ordered: 02/15/2024SURESWAB(R) ADVANCED VAGINITIS PLUS, TMASURESWAB(R) ADVANCED VAGINITIS PLUS, TMA Pathology and Cytology Routine Vaginal discharge Vaginal burning Ordered: 05/23/2024[facility] Work Phone: combooy on above:Ordered: 05/23/2024SURESWAB(R) ADVANCED VAGINITIS PLUS, TMASURESWAB(R) ADVANCED VAGINITIS PLUS, TMA Pathology and Cytology Routine Screen for STD (sexually transmitted disease) Ordered: 09/28/2024[facility] [employer] ([email or web address]) Work Phone: comvpql on above:Ordered: 09/28/2024[facility] [place] [facility] [facility] [place] Routine 08/12/2024 8:15 PM [facility] [place] Immunizations Immunization DateImmunizationNotesCare GbdlijsdPvhbccqx68-42-3662ooefzdpszz, tetanus toxoids and pertussis vaccineCorey Maxim DO Work Phone: [phone] CenterVufwkumeqx23-73-1301bpwjv papilloma virus vaccine, quadrivalentCorey Maxim DO Work Phone: [phone] [place], [place] [address]Madtqcszcp44-73-6294vudww papilloma virus vaccine, quadrivalentCorey Maxim DO Work Phone: [phone] [place], [place] [address]Wgnkectpbm33-70-6537gzwnj papilloma virus vaccine, quadrivalentCorey Maxim DO Work Phone: [phone] [place], [place] [address]Nakfizscei65-03-4123ygbppjq toxoid, reduced diphtheria toxoid, and acellular pertussis vaccine, adsorbedCorey Maxim DO Work Phone: [phone] [place], [place] [address]Ulutywaxtx64-50-6404pmkzubihpg, tetanus toxoids and acellular pertussis vaccine, unspecified formulationCorey Maxim DO Work Phone: [facility] Work Phone: [phone]en, mumps and rubella virus vaccine Jose Maxim DO Work Phone: [facility] CenterDlzmedojpi97-87-7977mlardsyzvv vaccine, inactivatedCorey Maxim DO Work Phone: [phone] [place], [place] [address]Gawqhmolwm09-64-6409qygtbaezsi, tetanus toxoids and acellular pertussis vaccine, unspecified formulationCorey Maxim DO Work Phone: [phone] [place], [place] [address]Qnzagpbqco95-23-9684vumwhpmqxbj influenzae type b vaccine, PRP-T conjugateCorey Maxim DO Work Phone: [phone] [place], [place] [address]Hjtnqkjwpv18-91-7383kmmxoms, mumps and rubella virus vaccineCorey Maxim DO Work Phone: [phone] [place], [place] [address]Eeuiwaname90-02-2924ljclbhzrws vaccine, inactivatedCorey Maxim DO Work Phone: [phone] [place], [place] [address]Nzhddylyie22-09-2899swjdkpuonb, tetanus toxoids and acellular pertussis vaccine, unspecified formulationCorey Maxim DO Work Phone: [phone] [place], [place] [address]Chcuzeciir48-73-9205bmjucfbjioo influenzae type b conjugate and Hepatitis B vaccineCorey Maxim DO Work Phone: [phone] [place], [place] [address]Czeaxkzobe78-71-2411vkkhvggflj, tetanus toxoids and acellular pertussis vaccine, unspecified formulationCorey Maxim DO Work Phone: [phone] [place], [place] [address]Baxcrprzar73-12-2207wyaednwbkhd influenzae type b vaccine, conjugate unspecified formulationCorey Maxim DO Work Phone: [phone] [place], [place] [address]Zosmascemt58-57-1379jigtghbhpl vaccine, inactivatedCorey Maxim DO Work Phone: [phone] [place], [place] [address]Uwzbsuxnlm09-51-5258xfhoxxipex, tetanus toxoids and acellular pertussis vaccine, unspecified formulationCorey Maxim DO Work Phone: [phone] [place], [place] [address]Zzvhuhoudw87-63-4786mqxkizhfqyh influenzae type b vaccine, conjugate unspecified formulationCorey Maxim DO Work Phone: [facility] CenterApwzmnhyha52-19-5106qpheqxost B vaccine, pediatric or pediatric/adolescent dosageCorey Maxim DO Work Phone: [facility] CenterDvrvfvxdvz02-50-2292yehhxfhlig vaccine, inactivatedCorey Maxim DO Work Phone: [facility] CenterYlruugazyz44-27-8771nnjsrfidh B vaccine, pediatric or pediatric/adolescent dosageCorey Maxim DO Work Phone: [facility] Payers DatePayer CategoryPayerPolicy [id number] [facility] HospitalBS Member Subscriber Plan / Payer (Effective 2023-Present) Name: Faheem Babb Relation to Subscriber: Spouse Name: MIHAI BABB Date of : 1995 Address: [address] [place] [address] Payer ID: Not on file Type: Not on file Address: [address] [place] [id number] [id number] BCBS [id number] 2023-Present [phone] [address] [id number] 2021MedicaidBUCKEYEMedicaidBUCKEYE COMMUNITY MEDICAID [place] MED[place] [id number] 2020-Present [address] [place] [id number] Medicaid (Managed Care)[id number] [id number] 2.16.840.1.480808.3.579.[id number] 2.16.840.1.367221.3.57[id number] 2.16.840.1.917020.3.57[id number] 2.16.840.1.558420.3.57[id number] 2.16.840.1.736431.3.57[id number] 2.16.840.1.926796.3.57[id number] 2.16.840.1.508722.3.57[id number] 2.16.840.1.734475.3.579.2.[id number] 2.16.840.1.529716.3.579.2.47943-00-6494Zuivtqr99051274 2.16.840.1.045208.3.579.2.38996-62-7476Nbcbmrq66833149 2.16.840.1.863285.3.57[id number] 2.16.840.1.538938.3.579.2.69344-18-0518Jbigbci60336101 2.16.840.1.801538.3.579.2.12045-45-4532Ebkctkb08602855 2.16.840.1.072938.3.57[id number] 2.16.840.1.682901.3.579.2.489203-73-2310Gohcztw05652328 2.16.840.1.118226.3.579.2.133848-18-9302Vfmguwg81266998 2.16.840.1.961236.3.579.2.308648-15-3231Crqpfur86170657 2.16.840.1.479384.3.579.2.784064-10-7092Xmdntcg41675356 2.16.840.1.622345.3.579.2.372275-23-6467Bmvdlbh99706554 2.16.840.1.511835.3.579.2.283556-07-4196Mxfexyq74720923 2.16.840.1.152817.3.579.2.260496-11-7816Dzoldaz46650667 2.16.840.1.331516.3.579.2.063904-28-5758Wibdirn93398735 2.16.840.1.206043.3.579.2.304305-49-3351Xedexll32684338 2.16.840.1.231498.3.579.2.270654-49-9830Jijqbjy4431962 2.16.840.1.052561.3.579.2.851740-87-2993Elxrpnz6749939 2.16.840.1.048977.3.579.2.202270-62-5725Llhurfi0405894 2.16.840.1.297717.3.579.2.896950-24-5328Barpnax5850638 2.16.840.1.423037.3.579.2.248485-26-5078Amidspp2908242 2.16.840.1.988092.3.579.2.995457-74-2950Oqhsryo9573990 2.16.840.1.002410.3.579.2.003364-09-4888Ydpmjjk5647830 2.16.840.1.427482.3.579.2.335356-09-3062Ioprcee9383400 2.16.840.1.977164.3.579.2.231776-11-1221Aedkfhk2868426 2.16.840.1.376061.3.579.2.608593-31-2120FtqoyatSCG330234360 1.2.840.832763.1.13.239.2.7.3.808963.34416-20-9841Kexsxfa257379224958 1.2.840.430471.1.13.239.2.7.3.967879.3919[id number] Social History DateTypeDetailFacilityStart: 06-12-2021 End: 21-92-1320Shjqpog smoking status NHISEx-smokerTrinity Health SystemHistory of tobacco useCigarette SmokerFulton County Health Center Streamup Phone: start: 06-12-2021 End: 65-97-4127Rpjdsjcrxu smoked current (pack per day) - Reported0.25N[facility] HealthcareStart: 06-12-2021 End: 35-21-9474Hccydru use and exposureSmokeless tobacco non-userFulton County Health Center Streamup Phone: start: 68-82-8126Hhvnxsr intakeCurrent non-drinker of alcohol (finding)[facility] Stream[employer] Phone: start: 79-45-0585Bxo Assigned At BirthNot on [facility] [employer] Work Phone: History of tobacco useCurrent smokerSaint Joseph Health Center Start: 01-11-2024 End: 96-24-4370Skswywwgf beverage intakeLifetime non-drinker (finding)[facility] HealthcareStart: 09-24-2023 End: 47-82-3374V0909 Health LiteracySaint Joseph Health CenterStart: 32-38-5435Gvo often do you need to have someone help you when you read instructions, pamphlets, or other written material from your doctor or pharmacy [SILS]NeverNOMS HealthcareDo you belong to any clubs or organizations such as judaism groups, unions, fraternal or athletic groups, or school groups?NoNOMS HealthcareHow often to you have a drink containing alcohol?NeverNOMS HealthcareDo you feel stress - tense, restless, nervous, or anxious, or unable to sleep at night because yourmind is troubled all the time - these days [OSQ]Rather muchNOWY Healthcare(I/We) worried whether (my/our) food would run out before (I/we) got money to buy more.Never trueNOWY HealthcareStart: 75-09-5149Tsheitz Commentcaffeine: 1-2 cups coffee or energy drink occasionallyFILLMORE COMMUNITY MEDICAL CENTER HealthcareStart: 77-62-8282ElowmbkuhAAMW Healthcare Functional Status EfopGjpohxkygeYmcqwnKctpjucy86-09-0634Ijaohpd Health Questionnaire 2 item (PHQ- 2) [Reported][facility] CenterQsswzyipwl65-88-6188Wuywpxuepv StatusN/AExecutive Urology of [facility] Clinical Notes 01-11-2024 to 02-07-2025 Note Date & AjhdUrdqQvtirtgq79-63-4008 History of Present illness Narrative* Ana Mcintosh, CLIFFORD - 02/07/2025 10:20 AM [...] affective disorder, currently depressed, moderate ([facility]) 09/06/2022 Complication of intrauterine device (IUD) 09/06/2022 Inattention 09/06/2022 Irregular menses 09/06/2022 Irritable bowel syndrome with diarrhea 09/06/2022 Menstrual cramp 09/06/2022 Pain in pelvis 09/06/2022 Generalized anxiety disorder 09/06/2022 Post-traumatic stress disorder 09/06/2022 Slow transit constipation 09/06/2022 Anxiety during ([facility]) 03/26/2020 Depression affecting ([facility]) 03/26/2020 History of chlamydia 03/26/2020 Bacterial infection due to mycoplasma 02/15/2024 Vaginal odor 02/15/2024 Urinary tract infection without hematuria 02/15/2024 Bacterial vaginosis 02/15/2024 Bladder pain 07/18/2024 Calculus of kidney 07/25/2013 Gross hematuria 07/18/2024 Resolved Ambulatory Problems Diagnosis Date Noted No Resolved Ambulatory Problems Past Medical History: Diagnosis Date ADHD (attention deficit hyperactivity disorder) Bipolar disorder (manic depression) ([facility]) BMI 24.0-24.9, adult Chicken pox 2007 Headache IBS (irritable bowel syndrome) Intrauterine device surveillance Pelvic pain Urinary tract infection HISTORY PAST MEDICAL HISTORY SOCIAL HISTORY Past Medical History: Diagnosis Date ADHD (attention deficit hyperactivity disorder) Adjustment disorder with mixed anxiety and depressed mood Amenorrhea Anxiety Bipolar disorder (manic depression) ([facility]) BMI 24.0-24.9, adult Chicken pox 2007 Complication [...] SMEAR 05/21/2021 negative WISDOM TOOTH EXTRACTION 2015 [place] teeth REVIEW OF SYSTEMS Review of Systems: [...] nursing note reviewed. Exam conducted with a air tester present. Vitals: Estimated body mass index is 27.53 kg/m as calculated from the following: Height as of 25: 5' 7 . Weight as of this encounter: 175 lb 12.8 oz. BP: 102/68 Patient's last menstrual period was 06/19/2024. Assessment/Plan ICD-10-CM 1. Third trimester ([facility]) Z34.93 2. 33 weeks gestation of ([facility]) Z3A.33 POCT urinalysis dipstick manually resulted Return [...] of: Jose Pan DO documented in this encounterSaint Joseph Health CenterQwxkrrvxxu79-66-8342 History of Present illness Narrative* Ana Mcintosh [...] affective disorder, currently depressed, moderate ([facility]) 09/06/2022 Complication of intrauterine device (IUD) 09/06/2022 Inattention 09/06/2022 Irregular menses 09/06/2022 Irritable bowel syndrome with diarrhea 09/06/2022 Menstrual cramp 09/06/2022 Pain in pelvis 09/06/2022 Generalized anxiety disorder 09/06/2022 Post-traumatic stress disorder 09/06/2022 Slow transit constipation 09/06/2022 Anxiety during ([facility]) 03/26/2020 Depression affecting ([facility]) 03/26/2020 History of chlamydia 03/26/2020 Bacterial infection due to mycoplasma 02/15/2024 Vaginal odor 02/15/2024 Urinary tract infection without hematuria 02/15/2024 Bacterial vaginosis 02/15/2024 Bladder pain 07/18/2024 Calculus of kidney 07/25/2013 Gross hematuria 07/18/2024 Resolved Ambulatory Problems Diagnosis Date Noted No Resolved Ambulatory Problems Past Medical History: Diagnosis Date ADHD (attention deficit hyperactivity disorder) Bipolar disorder (manic depression) ([facility]) BMI 24.0-24.9, adult Chicken pox 2007 Headache [...] nursing note reviewed. Exam conducted with a air tester present. Vitals: Estimated body mass index is 27 kg/m as calculated from the following: Height as of 07/18/24: 5' 7 . Weight as of this encounter: 172 lb 6.4 oz. BP: 108/72 Patient's last menstrual period was 06/19/2024. ASSESSMENT & PLAN ICD-10-CM 1. Encounter for ultrasound recheck of choroid plexus cyst, antepartum ([facility]) O35.03X0 US OB limited 1+ fetuses 2. Third trimester ([facility]) Z34.93 3. 31 weeks gestation of ([facility]) Z3A.31 POCT urinalysis dipstick manually resulted 4. size inconsistent with dates ([facility]) O26.849 US OB follow up transabdominal approach [...] Anxiety Bipolar disorder (manic depression) ([facility]) BMI 24.0-24.9, adult Chicken pox 2008 Complication [...] SMEAR 05/21/2021 negative WISDOM TOOTH EXTRACTION 2014 [place] teeth documented in this encounterSaint Joseph Health CenterHjwyuylkzp25-03-2812 History of Present illness Narrative* Jake Gunter [...] affective disorder, currently depressed, moderate ([facility]) 09/06/2022 Complication of intrauterine device (IUD) 09/06/2022 Inattention 09/06/2022 Irregular menses 09/06/2022 Irritable bowel syndrome with diarrhea 09/06/2022 Menstrual cramp 09/06/2022 Pain in pelvis 09/06/2022 Generalized anxiety disorder 09/06/2022 Post-traumatic stress disorder 09/06/2022 Slow transit constipation 09/06/2022 Anxiety during ([facility]) 03/26/2020 Depression affecting ([facility]) 03/26/2020 History of chlamydia 03/26/2020 Bacterial infection due to mycoplasma 02/15/2024 Vaginal odor 02/15/2024 Urinary tract infection without hematuria 02/15/2024 Bacterial vaginosis 02/15/2024 Bladder pain 07/18/2024 Calculus of kidney 07/25/2013 Gross hematuria 07/18/2024 Resolved Ambulatory Problems Diagnosis Date Noted No Resolved Ambulatory Problems Past Medical History: Diagnosis Date ADHD (attention deficit hyperactivity disorder) Bipolar disorder (manic depression) ([facility]) BMI 24.0-24.9, adult Chicken pox 2007 Headache IBS (irritable bowel syndrome) Intrauterine device surveillance Pelvic pain Urinary tract infection HISTORY PAST MEDICAL HISTORY SOCIAL HISTORY Past Medical History: Diagnosis Date ADHD (attention deficit hyperactivity disorder) Adjustment disorder with mixed anxiety and depressed mood Amenorrhea Anxiety Bipolar disorder (manic depression) ([facility]) BMI 24.0-24.9, adult Chicken pox 2007 Complication [...] SMEAR 05/21/2021 negative WISDOM TOOTH EXTRACTION 2015 [place] teeth REVIEW OF SYSTEMS Review of Systems: [...] nursing note reviewed. Exam conducted with a air tester present. Vitals: Estimated body mass index is 26.31 kg/m as calculated from the following: Height as of 07/18/24: 5' 7 . Weight as of 12/28/24: 168 lb. BP: Patient's last menstrual period was 06/19/2024. ASSESSMENT & PLAN ICD-10-CM 1. Third trimester ([facility]) Z34.93 POCT urinalysis dipstick manually resulted 2. 29 weeks gestation of ([facility]) Z3A.29 3. Choroid plexus cyst G93.0 US [...] of: Jake Gunter NP documented in this encounterSaint Joseph Health CenterFqqezzaafl84-27-8716 History of Present illness Narrative* ALISA Coyle [...] affective disorder, currently depressed, moderate ([facility]) 09/06/2022 Complication of intrauterine device (IUD) 09/06/2022 Inattention 09/06/2022 Irregular menses 09/06/2022 Irritable bowel syndrome with diarrhea 09/06/2022 Menstrual cramp 09/06/2022 Pain in pelvis 09/06/2022 Generalized anxiety disorder 09/06/2022 Post-traumatic stress disorder 09/06/2022 Slow transit constipation 09/06/2022 Anxiety during ([facility]) 03/26/2020 Depression affecting ([facility] [facility]) 03/26/2020 History of chlamydia 03/26/2020 Bacterial infection due to mycoplasma 02/15/2024 Vaginal odor 02/15/2024 Urinary tract infection without hematuria 02/15/2024 Bacterial vaginosis 02/15/2024 Bladder pain 07/18/2024 Calculus of kidney 07/25/2013 Gross hematuria 07/18/2024 Resolved Ambulatory Problems Diagnosis Date Noted No Resolved Ambulatory Problems Past Medical History: Diagnosis Date ADHD (attention deficit hyperactivity disorder) Bipolar disorder (manic depression) ([facility]) BMI 24.0-24.9, adult Chicken pox 2007 Headache IBS (irritable bowel syndrome) Intrauterine device surveillance Pelvic pain Urinary tract infection HISTORY PAST MEDICAL HISTORY SOCIAL HISTORY Past Medical History: Diagnosis Date ADHD (attention deficit hyperactivity disorder) Adjustment disorder with mixed anxiety and depressed mood Amenorrhea Anxiety Bipolar disorder (manic depression) ([facility]) BMI 24.0-24.9, adult Chicken pox 2007 Complication [...] SMEAR 05/21/2021 negative WISDOM TOOTH EXTRACTION 2015 [place] REVIEW OF SYSTEMS Review of Systems: [...] ASSESSMENT & PLAN ICD-10-CM 1. Second trimester ([facility]) Z34.92 POCT urinalysis dipstick manually resulted 2. 27 weeks gestation of ([facility]) Z3A.27 POCT urinalysis dipstick manually resulted Return [...] behalf of: ALISA Coyle documented in this encounterNOMS [id number] History of Present illness Narrative* Jake Gunter, MAINTENANCE LEADER - 12/05/2024 1:50 PM EDT Reason for [...] affective disorder, currently depressed, moderate ([facility]) 09/06/2022 Complication of intrauterine device (IUD) 09/06/2022 Inattention 09/06/2022 Irregular menses 09/06/2022 Irritable bowel syndrome with diarrhea 09/06/2022 Menstrual cramp 09/06/2022 Pain in pelvis 09/06/2022 Generalized anxiety disorder 09/06/2022 Post-traumatic stress disorder 09/06/2022 Slow transit constipation 09/06/2022 Anxiety during ([facility]) 03/26/2020 Depression affecting ([facility]) 03/26/2020 History of chlamydia 03/26/2020 Bacterial infection due to mycoplasma 02/15/2024 Vaginal odor 02/15/2024 Urinary tract infection without hematuria 02/15/2024 Bacterial vaginosis 02/15/2024 Bladder pain 07/18/2024 Calculus of kidney 07/25/2013 Gross hematuria 07/18/2024 Resolved Ambulatory Problems Diagnosis Date Noted No Resolved Ambulatory Problems Past Medical History: Diagnosis Date ADHD (attention deficit hyperactivity disorder) Bipolar disorder (manic depression) ([facility]) BMI 24.0-24.9, adult Chicken pox 2007 Headache IBS (irritable bowel syndrome) Intrauterine device surveillance Pelvic pain Urinary tract infection HISTORY PAST MEDICAL HISTORY SOCIAL HISTORY Past Medical History: Diagnosis Date ADHD (attention deficit hyperactivity disorder) Adjustment disorder with mixed anxiety and depressed mood Amenorrhea Anxiety Bipolar disorder (manic depression) ([facility]) BMI 24.0-24.9, adult Chicken pox 2008 Complication [...] SMEAR 05/21/2021 negative WISDOM TOOTH EXTRACTION 2015 [place] REVIEW OF SYSTEMS Review of Systems: [...] nursing note reviewed. Exam conducted with a air tester present. Vitals: Estimated body mass index is 25.22 kg/m as calculated from the following: Height as of 07/18/24: 5' 7 . Weight as of this encounter: 161 lb. BP: 110/72 Patient's last menstrual period was 06/19/2024. ASSESSMENT & PLAN ICD-10-CM 1. Second trimester ([facility]) Z34.92 POCT urinalysis dipstick manually resulted 2. 24 weeks gestation of ([facility]) Z3A.24 3. Diabetes mellitus screening Z13.1 CBC [...] of: Jose Pan DO documented in this encounterSaint Joseph Health [id number] History of Present illness Narrative* Jake Gunter [...] affective disorder, currently depressed, moderate ([facility]) 09/06/2022 Complication of intrauterine device (IUD) 09/06/2022 Inattention 09/06/2022 Irregular menses 09/06/2022 Irritable bowel syndrome with diarrhea 09/06/2022 Menstrual cramp 09/06/2022 Pain in pelvis 09/06/2022 Generalized anxiety disorder 09/06/2022 Post-traumatic stress disorder 09/06/2022 Slow transit constipation 09/06/2022 Anxiety during ([facility] 03/26/2020 Depression affecting ([facility]) 03/26/2020 History of chlamydia 03/26/2020 Bacterial infection due to mycoplasma 02/15/2024 Vaginal odor 02/15/2024 Urinary tract infection without hematuria 02/15/2024 Bacterial vaginosis 02/15/2024 Bladder pain 07/18/2024 Calculus of kidney 07/25/2013 Gross hematuria 07/18/2024 Resolved Ambulatory Problems Diagnosis Date Noted No Resolved Ambulatory Problems Past Medical History: Diagnosis Date ADHD (attention deficit hyperactivity disorder) Bipolar disorder (manic depression) ([facility]) BMI 24.0-24.9, adult Chicken pox 2007 Headache IBS (irritable bowel syndrome) Intrauterine device surveillance Pelvic pain Urinary tract infection HISTORY PAST MEDICAL HISTORY SOCIAL HISTORY Past Medical History: Diagnosis Date ADHD (attention deficit hyperactivity disorder) Adjustment disorder with mixed anxiety and depressed mood Amenorrhea Anxiety Bipolar disorder (manic depression) ([facility]) BMI 24.0-24.9, adult Chicken pox 2007 Complication [...] SMEAR 05/21/2021 negative WISDOM TOOTH EXTRACTION 2015 [place] REVIEW OF SYSTEMS Review of Systems: [...] nursing note reviewed. Exam conducted with a air tester present. Vitals: Estimated body mass index is 24.59 kg/m as calculated from the following: Height as of 25: 5' 7 . Weight as of this encounter: 157 lb. BP: 118/70 Patient's last menstrual period was 06/19/2024. ASSESSMENT & PLAN (Z34.92) Second trimester ([facility]) Plan: POCT urinalysis dipstick manually resulted (Z3A.20) 20 weeks gestation of ([facility]) Return OB: Patient presents today for a [...] of: Jose Pan DO documented in this encounterSaint Joseph Health [id number] History of Present illness Narrative* Jake Gunter [...] 09/06/2022 Slow transit constipation 09/06/2022 Anxiety during ([facility]) 03/26/2020 Depression affecting ([facility]) 03/26/2020 History of chlamydia 03/26/2020 Bacterial infection due to mycoplasma 02/15/2024 Vaginal odor 02/15/2024 Urinary tract infection without hematuria 02/15/2024 Bacterial vaginosis 02/15/2024 Bladder pain 07/18/2024 Calculus of kidney 07/25/2013 Gross hematuria 07/18/2024 Resolved Ambulatory Problems Diagnosis Date Noted No Resolved Ambulatory Problems Past Medical History: Diagnosis Date ADHD (attention deficit hyperactivity disorder) Bipolar disorder (manic depression) ([facility]) BMI 24.0-24.9, adult Chicken pox 2007 Headache IBS (irritable bowel syndrome) Intrauterine device surveillance Pelvic pain Urinary tract infection HISTORY PAST MEDICAL HISTORY SOCIAL HISTORY Past Medical History: Diagnosis Date ADHD (attention deficit hyperactivity disorder) Adjustment disorder with mixed anxiety and depressed mood Amenorrhea Anxiety Bipolar disorder (manic depression) ([facility]) BMI 24.0-24.9, adult Chicken pox 2007 Complication [...] SMEAR 05/21/2021 negative WISDOM TOOTH EXTRACTION 2015 [place] REVIEW OF SYSTEMS Review of Systems: [...] nursing note reviewed. Exam conducted with a air tester present. Vitals: Estimated body mass index is 24 kg/m as calculated from the following: Height as of 25: 5' 7 . Weight as of this encounter: 153 lb 4 oz. BP: 108/60 Patient's last menstrual period was 06/19/2024. ASSESSMENT & PLAN ICD-10-CM 1. Second trimester ([facility]) Z34.92 Alpha fetoprotein, maternal Alpha fetoprotein, maternal POCT urinalysis dipstick manually resulted 2. 16 weeks gestation of ([facility]) Z3A.16 3. Screening, , for anatomic survey ([facility]) Z36.89 US OB 14+ weeks anatomy scan [...] of: Jose Pan DO documented in this encounterSaint Joseph Health [id number] History of Present illness Narrative* Nasreen Figueroa [...] affective disorder, currently depressed, moderate ([facility]) 09/06/2022 Complication of intrauterine device (IUD) 09/06/2022 Inattention 09/06/2022 Irregular menses 09/06/2022 Irritable bowel syndrome with diarrhea 09/06/2022 Menstrual cramp 09/06/2022 Pain in pelvis 09/06/2022 Generalized anxiety disorder 09/06/2022 Post-traumatic stress disorder 09/06/2022 Slow transit constipation 09/06/2022 Anxiety during ([facility] 03/26/2020 Depression affecting ([facility]) 03/26/2020 History of chlamydia 03/26/2020 Bacterial infection due to mycoplasma 02/15/2024 Vaginal odor 02/15/2024 Urinary tract infection without hematuria 02/15/2024 Bacterial vaginosis 02/15/2024 Bladder pain 07/18/2024 Calculus of kidney 07/25/2013 Gross hematuria 07/18/2024 Resolved Ambulatory Problems Diagnosis Date Noted No Resolved Ambulatory Problems Past Medical History: Diagnosis Date ADHD (attention deficit hyperactivity disorder) Bipolar disorder (manic depression) ([facility]) BMI 24.0-24.9, adult Chicken pox 2007 Headache IBS (irritable bowel syndrome) Intrauterine device surveillance Pelvic pain Urinary tract infection HISTORY PAST MEDICAL HISTORY SOCIAL HISTORY Past Medical History: Diagnosis Date ADHD (attention deficit hyperactivity disorder) Adjustment disorder with mixed anxiety and depressed mood Amenorrhea Anxiety Bipolar disorder (manic depression) ([facility]) BMI 24.0-24.9, adult Chicken pox 2008 Complication [...] SMEAR 05/21/2021 negative WISDOM TOOTH EXTRACTION 2015 [place] REVIEW OF SYSTEMS Review of Systems: [...] nursing note reviewed. Exam conducted with a air tester present. Vitals: Estimated body mass index is 23.34 kg/m as calculated from the following: Height as of 07/18/24: 5' 7 . Weight as of this encounter: 149 lb. BP: 116/70 Patient's last menstrual period was 06/19/2024. ASSESSMENT & PLAN ICD-10-CM 1. Second trimester ([facility]) Z34.92 POCT urinalysis dipstick manually resulted 2. 14 weeks gestation of ([facility]) Z3A.14 3. Screen for STD (sexually transmitted [...] affective disorder, currently depressed, moderate ([facility]) 09/06/2022 Complication of intrauterine device (IUD) 09/06/2022 Inattention 09/06/2022 Irregular menses 09/06/2022 Irritable bowel syndrome with diarrhea 09/06/2022 Menstrual cramp 09/06/2022 Pain in pelvis 09/06/2022 Generalized anxiety disorder 09/06/2022 Post-traumatic stress disorder 09/06/2022 Slow transit constipation 09/06/2022 Anxiety during ([facility]) 03/26/2020 Depression affecting ([facility]) 03/26/2020 History of chlamydia 03/26/2020 Bacterial infection due to mycoplasma 02/15/2024 Vaginal odor 02/15/2024 Urinary tract infection without hematuria 02/15/2024 Bacterial vaginosis 02/15/2024 Bladder pain 07/18/2024 Calculus of kidney 07/25/2013 Gross hematuria 07/18/2024 Resolved Ambulatory Problems Diagnosis Date Noted No Resolved Ambulatory Problems Past Medical History: Diagnosis Date ADHD (attention deficit hyperactivity disorder) Bipolar disorder (manic depression) ([facility]) BMI 24.0-24.9, adult Chicken pox 2007 Headache IBS (irritable bowel syndrome) Intrauterine device surveillance Pelvic pain Urinary tract infection HISTORY PAST MEDICAL HISTORY SOCIAL HISTORY Past Medical History: Diagnosis Date ADHD (attention deficit hyperactivity disorder) Adjustment disorder with mixed anxiety and depressed mood Amenorrhea Anxiety Bipolar disorder (manic depression) ([facility]) BMI 24.0-24.9, adult Chicken pox 2007 Complication [...] SMEAR 05/21/2021 negative WISDOM TOOTH EXTRACTION 2015 [place] REVIEW OF SYSTEMS Review of Systems: [...] nursing note reviewed. Exam conducted with a air tester present. Vitals: Estimated body mass index is 23.34 kg/m as calculated from the following: Height as of 25: 5' 7 . Weight as of this encounter: 149 lb. BP: 116/70 Patient's last menstrual period was 06/19/2024. ASSESSMENT & PLAN ICD-10-CM 1. Second trimester ([facility]) Z34.92 POCT urinalysis dipstick manually resulted 2. 14 weeks gestation of ([facility]) Z3A.14 3. Screen for STD (sexually transmitted disease) Z11.3 SURESWAB(R) ADVANCED VAGINITIS PLUS, TMA CHLAMYDIA TRACHOMATIS (GENITO/STI) Neisseria gonorrhea DNA probe, direct Patient presents with complaints of vaginal discharge. She denies any pelvic pain today. Cultures are obtained today. She will return in 2 weeks for her routine OB appointment. Documented by Jake Gunter NP on behalf of: ALISA Coyle documented in this encounterSaint Joseph Health [id number] History of Present illness Narrative* Ana Mcintosh, CLIFFORD - 09/13/2024 1:40 PM EDT Reason for [...] disorder with mixed anxiety and depressed mood ([facility]) 09/06/2022 Amenorrhea 09/06/2022 Anxiety 09/06/2022 Bipolar affective disorder, currently depressed, moderate ([facility]) 09/06/2022 Complication of intrauterine device (IUD) ([facility]) 09/06/2022 Inattention 09/06/2022 Irregular menses 09/06/2022 Irritable bowel syndrome with diarrhea 09/06/2022 Menstrual cramp 09/06/2022 Pain in pelvis 09/06/2022 Generalized anxiety disorder ([facility]) 09/06/2022 Post-traumatic stress disorder ([facility]) 09/06/2022 Slow transit constipation 09/06/2022 Anxiety during 03/26/2020 Depression affecting ([facility]) 03/26/2020 History of chlamydia 03/26/2020 Bacterial infection due to mycoplasma 02/15/2024 Vaginal odor 02/15/2024 Urinary tract infection without hematuria 02/15/2024 Bacterial vaginosis 02/15/2024 Bladder pain 07/18/2024 Calculus of kidney 07/25/2013 Gross hematuria 07/18/2024 Resolved Ambulatory Problems Diagnosis Date Noted No Resolved Ambulatory Problems Past Medical History: Diagnosis Date ADHD (attention deficit hyperactivity disorder) ([facility]) Bipolar disorder (manic depression) ([facility]) BMI 24.0-24.9, adult Chicken pox 2008 Headache IBS (irritable bowel syndrome) Intrauterine device surveillance Pelvic pain Urinary tract infection HISTORY PAST MEDICAL HISTORY SOCIAL HISTORY Past Medical History: Diagnosis Date ADHD (attention deficit hyperactivity disorder) ([facility]) Adjustment disorder with mixed anxiety and depressed mood ([facility]) Amenorrhea Anxiety Bipolar disorder (manic depression) ([facility]) BMI 24.0-24.9, adult Chicken pox 2008 Complication of intrauterine device (IUD) ([facility]) Headache IBS (irritable bowel syndrome) [...] Onset Cancer Mother kaila Mental illness Mother kiala manic depressive bipolar disorder No Known Problems Brother 2 brothers Breast cancer Paternal Grandmother juan pablo Cancer Paternal Grandmother juan pablo No Known Problems Daughter SURGICAL HISTORY Past Surgical History: Procedure Laterality Date LAPAROSCOPY DIAGNOSTIC / BIOPSY / ASPIRATION / LYSIS 04/01/2024 LITHOTRIPSY 2014 kidney stones/lithotrypsy PAP SMEAR 05/21/2021 negative WISDOM TOOTH EXTRACTION 2015 [place] REVIEW OF SYSTEMS Review of Systems: [...] nursing note reviewed. Exam conducted with a air tester present. Vitals: Estimated body mass index is [...] or undercooked meat, and stay away from [facility]. Patient has been consulted regarding any [...] of: Jose Pan DO documented in this encounterSaint Joseph Health [id number] History of Present illness Narrative* Nasreen Figueroa [...] disorder with mixed anxiety and depressed mood ([facility]) 09/06/2022 Amenorrhea 09/06/2022 Anxiety 09/06/2022 Bipolar affective disorder, currently depressed, moderate ([facility]) 09/06/2022 Complication of intrauterine device (IUD) ([facility]) 09/06/2022 Inattention 09/06/2022 Irregular menses 09/06/2022 Irritable bowel syndrome with diarrhea 09/06/2022 Menstrual cramp 09/06/2022 Pain in pelvis 09/06/2022 Generalized anxiety disorder ([facility]) 09/06/2022 Post-traumatic stress disorder ([facility]) 09/06/2022 Slow transit constipation 09/06/2022 Anxiety during 03/26/2020 Depression affecting ([facility]) 03/26/2020 History of chlamydia 03/26/2020 Bacterial infection due to mycoplasma 02/15/2024 Vaginal odor 02/15/2024 Urinary tract infection without hematuria 02/15/2024 Bacterial vaginosis 02/15/2024 Bladder pain 07/18/2024 Calculus of kidney 07/25/2013 Gross hematuria 07/18/2024 Resolved Ambulatory Problems Diagnosis Date Noted No Resolved Ambulatory Problems Past Medical History: Diagnosis Date ADHD (attention deficit hyperactivity disorder) ([facility]) Bipolar disorder (manic depression) ([facility]) BMI 24.0-24.9, adult Chicken pox 2008 Headache [...] SMEAR 05/21/2021 negative WISDOM TOOTH EXTRACTION 2014 [place] [facility] Allergies Allergen Reactions Bacitracin-Polymyxin B Other [...] urine; Future Nurse Note: Patient unsure of [place] [employer] [facility]. OB Intake: Patient presents today for first OB visit. Patients history has been reviewed in great detail including any potential risks. Patient signed consent forms and patient desires testing in both trimesters. Patient currently has no complaints and has been advised to drink 6-8 glasses of water a day, eatno raw or undercooked meat, and stay away from [facility]. Patient has also been advised to [...] by: Nasreen Figueroa MA documented in this encounterSaint Joseph Health [id number] NotePatient Education Urology Kidney Stones Kidney stones [...] these instructions at home: Medicines ??? Take ijeu-sde-xdegdut and prescription medicines only as told by [...] provider. Document Revised: 11/21/2022 Document Reviewed: 11/21/2022 Emb[employer] Patient Education ? 2023 [employer] 07-18-2024 History of Present illness Narrative* [...] during her subsequent annual visit with her DIGITAL PRODUCTION OPERATOR, the diagnosis of bilateral fibroids was confirmed, leading her to forego the ultrasound. Over the past weekend, she has noticed an increase in the sizeof the left breast mass, accompanied by tenderness. She recently had a positive test. Sheis scheduled to see her DIGITAL PRODUCTION OPERATOR in 08/2024. Supplemental Information She takes D-mannose [...] SMEAR 05/21/2021 negative WISDOM TOOTH EXTRACTION 2015 [place] [facility] FAMILY HISTORY: Family History Problem Relation [...] size of the lump. documented in this encounterSaint Joseph Health [id number] Telephone encounter Note* Telephone Encounter - Lopez Gan - 06/10/2024 9:17 AM EST Faheem called - she asked if its ok that you go ahead and send the referral for her hand now,please. Ty [facility] [id number] Miscellaneous Notes* Telephone Encounter - Lopez Gan - 06/10/2024 9:17 AM EST Faheem called - she asked if its ok that you go ahead and send the referral for her hand now,please. Ty documented in this encounterSaint Joseph Health [id number] History of Present illness Narrative* Reggie Donovan [...] [place]anan LPN Hospital Information ED, Hospital or Shelter Facility Discharge? ED Patient has been contacted within 1 week of being seen in the ED No Have two attempts been made to contact the patient within one week of being seen in the ED? Yes Diagnosis Right thumb laceration. Discharge Date 06/01/24 Discharged To: Home Setting Discharge Hospital [facility] Admission Date 06/01/24 Medications Appointments Does [...] Diagnosis Date ADHD (attention deficit hyperactivity disorder) ([facility]) Adjustment disorder with mixed anxiety and depressed mood ([facility]) Amenorrhea Anxiety Bipolar disorder (manic depression) ([facility]) BMI 24.0-24.9, adult Chicken pox 2008 Complication of intrauterine device (IUD) ([facility]) Headache IBS (irritable bowel syndrome) IBS with [...] SMEAR 05/21/2021 negative WISDOM TOOTH EXTRACTION 2015 [place] [facility] REVIEW OF SYMPTOMS: Review of Systems [...] Follow up as needed. documented in this encounterSaint Joseph Health [id number] History of Present illness Narrative* ALISA Coyle [...] disorder with mixed anxiety and depressed mood ([facility]) 09/06/2022 Amenorrhea 09/06/2022 Anxiety 09/06/2022 Bipolar affective disorder, currently depressed, moderate ([facility]) 09/06/2022 Complication of intrauterine device (IUD) ([facility]) 09/06/2022 Inattention 09/06/2022 Irregular menses 09/06/2022 Irritable bowel syndrome with diarrhea 09/06/2022 Menstrual cramp 09/06/2022 Pain in pelvis 09/06/2022 Generalized anxiety disorder ([facility]) 09/06/2022 Post-traumatic stress disorder ([facility]) 09/06/2022 Slow transit constipation 09/06/2022 Anxiety during 03/26/2020 Depression affecting ([facility]) 03/26/2020 History of chlamydia 03/26/2020 Bacterial infection due to mycoplasma 02/15/2024 Vaginal odor 02/15/2024 Urinary tract infection without hematuria 02/15/2024 Bacterial vaginosis 02/15/2024 Resolved Ambulatory Problems Diagnosis Date Noted No Resolved Ambulatory Problems Past Medical History: Diagnosis Date ADHD (attention deficit hyperactivity disorder) ([facility]) Bipolar disorder (manic depression) ([facility]) BMI 24.0-24.9, adult Chicken pox 2007 Headache IBS (irritable bowel syndrome) Intrauterine device surveillance Pelvic pain Urinary tract infection HISTORY PAST MEDICAL HISTORY SOCIAL HISTORY Past Medical History: Diagnosis Date ADHD (attention deficit hyperactivity disorder) ([facility]) Adjustment disorder with mixed anxiety and depressed mood ([facility]) Amenorrhea Anxiety Bipolar disorder (manic depression) ([facility]) BMI 24.0-24.9, adult Chicken pox 2007 Complication of intrauterine device (IUD) ([facility]) Headache IBS (irritable bowel syndrome) IBS with [...] SMEAR 05/21/2021 negative WISDOM TOOTH EXTRACTION 2015 [place] REVIEW OF SYSTEMS Review of Systems: [...] behalf of: ALISA Coyle documented in this encounterSaint Joseph Health [id number] History of Present illness Narrative* Ana Mcintosh, PLANNING SUPERVISOR - 04/20/2024 2:00 PM EST Reason for [...] disorder with mixed anxiety and depressed mood ([facility]) 09/06/2022 Amenorrhea 09/06/2022 Anxiety 09/06/2022 Bipolar affective disorder, currently depressed, moderate ([facility]) 09/06/2022 Complication of intrauterine device (IUD) ([facility]) 09/06/2022 Inattention 09/06/2022 Irregular menses 09/06/2022 Irritable bowel syndrome with diarrhea 09/06/2022 Menstrual cramp 09/06/2022 Pain in pelvis 09/06/2022 Generalized anxiety disorder (CMS/HCC) 09/06/2022 Post-traumatic stress disorder ([facility]) 09/06/2022 Slow transit constipation 09/06/2022 Anxiety during 03/26/2020 Depression affecting (CMS/HCC) 03/26/2020 History of chlamydia 03/26/2020 Bacterial infection due to mycoplasma 02/15/2024 Vaginal odor 02/15/2024 Urinary tract infection without hematuria 02/15/2024 Bacterial vaginosis 02/15/2024 Resolved Ambulatory Problems Diagnosis Date Noted No Resolved Ambulatory Problems Past Medical History: Diagnosis Date ADHD (attention deficit hyperactivity disorder) ([facility]) Bipolar disorder (manic depression) ([facility]) BMI 24.0-24.9, adult Chicken pox 2007 Headache IBS (irritable bowel syndrome) Intrauterine device surveillance Pelvic pain Urinary tract infection HISTORY PAST MEDICAL HISTORY SOCIAL HISTORY Past Medical History: Diagnosis Date ADHD (attention deficit hyperactivity disorder) ([facility]) Adjustment disorder with mixed anxiety and depressed mood ([facility]) Amenorrhea Anxiety Bipolar disorder (manic depression) ([facility]) BMI 24.0-24.9, adult Chicken pox 2007 Complication of intrauterine device (IUD) ([facility]) Headache IBS (irritable bowel syndrome) [...] SMEAR 05/21/2021 negative WISDOM TOOTH EXTRACTION 2015 [place] REVIEW OF SYSTEMS Review of Systems: [...] nursing note reviewed. Exam conducted with a air tester present. Vitals: Estimated body mass index is [...] of: Jose Pan DO documented in this encounterSaint Joseph Health [id number] NoteUrology Office/Clinic Note Chief Complaint referral HPI [...] gross hematuria. Pt. states she was in [place] [facility] for cystitis Frequency: 2-3 hours Urgency: [...] with voice recognition artificial intelligence software, specifically [employer], [employer] and or [employer]. Substitutions may have occurred due to the [...] OBGYN regarding poss endometriosis dx May be LOGISTICS/SHIPPER source of pain Does not necessarily improve [...] intake. Restrict animal protein. -KUB/ MARCIA at [facility], call pt w/ results Orders: cephalexin, 500 mg = 1 cap(s), Oral, BID, X 7 day(s), # 14 cap(s), Refills(s) 0, Pharmacy: [facility], 174, cm, 03/01/24 10:48:00 EST, Height/Length [...] Mother. Primary malignant neoplasm of female breast: Grandparent.Gen[facility] HospitalComment on above:Result Comment: Electronically Signed By: SRUTHI Pinedo APRN, [place] X\.br\Date and Time Signed: 03/29/24 10:28 [id number] Evaluation + Plan note Diagnostic Tests Pending * Urine Culture 03/21/24 [facility] 11-27-2024 History of Present illness Narrative* Ana Mcintosh LPN - 03/09/2024 11:20 AM EST Reason for Appointment: Patient ID: Faheem Babb is a 29 y.o. female who presents for Pre-op Visit Patient presents today for Pre Op appointment. Patient is scheduled to undergo Da Neha assisted Diagnostic Laparoscopy, possible ZAHRA, possible FOE, possible BSO on 04/01/[address] Pan at [facility]. MEDICATIONS Current Outpatient Medications Medication Instructions azithromycin (Zithromax) 500 MG tablet Day 1: Take 2 tablets PO onetime dose; Day 2,3,4: Take 1 tablet daily ALLERGIES Allergies Allergen Reactions Bacitracin-Polymyxin B Other Reaction(s): Unknown Lexapro [Escitalopram] Other groggy Buspar [Buspirone] Anxiety Caused heart palpitations and increased anxiety PROBLEMS Active Ambulatory Problems Diagnosis Date Noted Adjustment disorder with mixed anxiety and depressed mood ([facility]) 09/06/2022 Amenorrhea 09/06/2022 Anxiety 09/06/2022 Bipolar affective disorder, currently depressed, moderate ([facility]) 09/06/2022 Complication of intrauterine device (IUD) ([facility]) 09/06/2022 Inattention 09/06/2022 Irregular menses 09/06/2022 Irritable bowel syndrome with diarrhea 09/06/2022 Menstrual cramp 09/06/2022 Pain in pelvis 09/06/2022 Generalized anxiety disorder ([facility]) 09/06/2022 Post-traumatic stress disorder ([facility]) 09/06/2022 Slow transit constipation 09/06/2022 Anxiety during 03/26/2020 Depression affecting ([facility]) 03/26/2020 History of chlamydia 03/26/2020 Bacterial infection due to mycoplasma 02/15/2024 Vaginal odor 02/15/2024 Urinary tract infection without hematuria 02/15/2024 Bacterial vaginosis 02/15/2024 Resolved Ambulatory Problems Diagnosis Date Noted No Resolved Ambulatory Problems Past Medical History: Diagnosis Date ADHD (attention deficit hyperactivity disorder) ([facility]) Bipolar disorder (manic depression) ([facility]) BMI 24.0-24.9, adult Chicken pox 2007 Headache IBS (irritable bowel syndrome) Intrauterine device surveillance Pelvic pain Urinary tract infection HISTORY PAST MEDICAL HISTORY SOCIAL HISTORY Past Medical History: Diagnosis Date ADHD (attention deficit hyperactivity disorder) ([facility]) Adjustment disorder with mixed anxiety and depressed mood ([facility]) Amenorrhea Anxiety Bipolar disorder (manic depression) ([facility]) BMI 24.0-24.9, adult Chicken pox 2007 Complication of intrauterine device (IUD) ([facility]) Headache IBS (irritable bowel syndrome) IBS with [...] SMEAR 05/21/2021 negative WISDOM TOOTH EXTRACTION 2015 [place] REVIEW OF SYSTEMS Review of Systems: [...] nursing note reviewed. Exam conducted with a air tester present. Vitals: Estimated body mass index is [...] was reviewed, and patient isto proceed to [facility] OR. Pt has vaginal discharge and recurrent bv- rx for xaciato and metrogel faxed to pharmacy. Follow Up: Patient is to follow up between 1-2 weeks post operative to assess proper healing and recovery fromprocedure. Documented by Ana Mcintosh LPN on behalf of: Jose Pan DO documented in this encounterSaint Joseph Health [id number] History of Present illness Narrative* Estela Phipps [...] disorder with mixed anxiety and depressed mood ([facility]) 09/06/2022 Amenorrhea 09/06/2022 Anxiety 09/06/2022 Bipolar affective disorder, currently depressed, moderate ([facility]) 09/06/2022 Complication of intrauterine device (IUD) ([facility]) 09/06/2022 Inattention 09/06/2022 Irregular menses 09/06/2022 Irritable bowel syndrome with diarrhea 09/06/2022 Menstrual cramp 09/06/2022 Pain in pelvis 09/06/2022 Generalized anxiety disorder ([facility]) 09/06/2022 Post-traumatic stress disorder ([facility]) 09/06/2022 Slow transit constipation 09/06/2022 Anxiety during 03/26/2020 Depression affecting ([facility]) 03/26/2020 History of chlamydia 03/26/2020 Resolved Ambulatory Problems Diagnosis Date Noted No Resolved Ambulatory Problems Past Medical History: Diagnosis Date ADHD (attention deficit hyperactivity disorder) ([facility]) Bipolar disorder (manic depression) ([facility]) BMI 24.0-24.9, adult Chicken pox 2007 Headache IBS (irritable bowel syndrome) Intrauterine device surveillance Pelvic pain Urinary tract infection HISTORY PAST MEDICAL HISTORY SOCIAL HISTORY Past Medical History: Diagnosis Date ADHD (attention deficit hyperactivity disorder) ([facility]) Adjustment disorder with mixed anxiety and depressed mood ([facility]) Amenorrhea Anxiety Bipolar disorder (manic depression) ([facility]) BMI 24.0-24.9, adult Chicken pox 2008 Complication of intrauterine device (IUD) ([facility]) Headache IBS (irritable bowel syndrome) [...] SMEAR 05/21/2021 negative WISDOM TOOTH EXTRACTION 2015 [place] REVIEW OF SYSTEMS Review of Systems: [...] nursing note reviewed. Exam conducted with a air tester present. Vitals: Estimated body mass index is [...] refe rral to Urology. Patient aware that [employer] will reach out to her to sent up surgery datefor Dx Lap as well. Patient aware of referral process. Documented by Estela Phipps LPN on behalf of: Jose Pan DO documented in this encounterSaint Joseph Health [id number] History of Present illness Narrative* ALISA Coyle [...] disorder with mixed anxiety and depressed mood ([facility]) 09/06/2022 Amenorrhea 09/06/2022 Anxiety 09/06/2022 Bipolar affective disorder, currently depressed, moderate ([facility]) 09/06/2022 Complication of intrauterine device (IUD) ([facility]) 09/06/2022 Inattention 09/06/2022 Irregular menses 09/06/2022 Irritable bowel syndrome with diarrhea 09/06/2022 Menstrual cramp 09/06/2022 Pain in pelvis 09/06/2022 Generalized anxiety disorder ([facility]) 09/06/2022 Post-traumatic stress disorder ([facility]) 09/06/2022 Slow transit constipation 09/06/2022 Anxiety during 03/26/2020 Depression affecting ([facility]) 03/26/2020 History of chlamydia 03/26/2020 Resolved Ambulatory Problems Diagnosis Date Noted No Resolved Ambulatory Problems Past Medical History: Diagnosis Date ADHD (attention deficit hyperactivity disorder) ([facility]) Bipolar disorder (manic depression) ([facility]) BMI 24.0-24.9, adult Chicken pox 2008 Headache IBS (irritable bowel syndrome) Intrauterine device surveillance Pelvic pain Urinary tract infection HISTORY PAST MEDICAL HISTORY SOCIAL HISTORY Past Medical History: Diagnosis Date ADHD (attention deficit hyperactivity disorder) ([facility]) Adjustment disorder with mixed anxiety and depressed mood ([facility]) Amenorrhea Anxiety Bipolar disorder (manic depression) ([facility]) BMI 24.0-24.9, adult Chicken pox 2008 Complication of intrauterine device (IUD) ([facility]) Headache IBS (irritable bowel syndrome) [...] SMEAR 05/21/2021 negative WISDOM TOOTH EXTRACTION 2015 [place] REVIEW OF SYSTEMS Review of Systems: [...] nursing note reviewed. Exam conducted with a air tester present. Vitals: Estimated body mass index is [...] behalf of: ALISA Coyle documented in this encounterSaint Joseph Health [id number] History of Present illness Narrative* Estela Phipps [...] disorder with mixed anxiety and depressed mood ([facility]) 09/06/2022 Amenorrhea 09/06/2022 Anxiety 09/06/2022 Bipolar affective disorder, currently depressed, moderate ([facility]) 09/06/2022 Complication of intrauterine device (IUD) ([facility]) 09/06/2022 Inattention 09/06/2022 Irregular menses 09/06/2022 Irritable bowel syndrome with diarrhea 09/06/2022 Menstrual cramp 09/06/2022 Pain in pelvis 09/06/2022 Generalized anxiety disorder ([facility]) 09/06/2022 Post-traumatic stress disorder ([facility]) 09/06/2022 Slow transit constipation 09/06/2022 Anxiety during 03/26/2020 Depression affecting ([facility]) 03/26/2020 History of chlamydia 03/26/2020 Resolved Ambulatory Problems Diagnosis Date Noted No Resolved Ambulatory Problems Past Medical History: Diagnosis Date ADHD (attention deficit hyperactivity disorder) ([facility]) Bipolar disorder (manic depression) ([facility]) BMI 24.0-24.9, adult Chicken pox 2007 Headache IBS (irritable bowel syndrome) Intrauterine device surveillance Pelvic pain Urinary tract infection HISTORY PAST MEDICAL HISTORY SOCIAL HISTORY Past Medical History: Diagnosis Date ADHD (attention deficit hyperactivity disorder) ([facility]) Adjustment disorder with mixed anxiety and depressed mood ([facility]) Amenorrhea Anxiety Bipolar disorder (manic depression) ([facility]) BMI 24.0-24.9, adult Chicken pox 2007 Complication of intrauterine device (IUD) ([facility]) Headache IBS (irritable bowel syndrome) [...] SMEAR 05/21/2021 negative WISDOM TOOTH EXTRACTION 2015 [place] REVIEW OF SYSTEMS Review of Systems: [...] nursing note reviewed. Exam conducted with a air tester present. Vitals: Estimated body mass index is [...] of: Jose Pan DO documented in this encounterFILLMORE COMM[facility] HealthcareEvaluation + Plan note No data available for this section [facility] evaluation note* Diagnosis Ureteral stone with hydronephrosis Calculus of ureter Suprapubic pain Abdominal pain, other specified site Dysuria Urgency of urination documented in this encounter [employer]: evaluation note* Diagnosis Ureteral stone with hydronephrosis Calculus of ureter documented in this encounter [employer]: evaluation note* Diagnosis Ureteral stone with hydronephrosis Calculus of ureter Suprapubic pain Abdominal pain, other specified site Dysuria Urgency of urination documented in this encounter [employer] Phone: evaluation note* Diagnosis Well woman exam [...] of right hand documented in this encounter [facility] HealthcareEvaluation note* Diagnosis Mass of lower outer [...] available for this section [facility] progress note No data available for this section [facility] Advance Directives TypeDate RecordedPatient RepresentativeExplanationACP-Advance DirectiveACP-Power of AttorneyCode StatusDate ActivatedDate InactivatedCommentsFull Code03/28/2014 9:49 AM03/28/2014 5:17 PMTypeDate RecordedPatient RepresentativeExplanationACP- Advance DirectiveACP-Power of AttorneyCode StatusDate ActivatedDate Inactivated CommentsFull Code03/28/2014 9:49 AM03/28/2014 5:17 PM Reason for Referral SpecialtyDiagnoses / ProceduresReferred By ContactReferred To ContactRadiology Diagnoses Ureteral stone with hydronephrosis Suprapubic pain Dysuria Urgency of urination Procedures US RENAL COMPLETE Jason Bradley, HEATING ELEMENT REPAIRER - AIRDOX FITTER [address] [place] [address] Referral IDStatusReasonStart DateExpiration DateVisits RequestedVisits [id number] Summary Purpose Family History No Family History [...] MemberRelationshipSpecialtyStart DateEnd Date Sri Ramírez MD [address] [place] [address] PCP - General07/20/13Team MemberRelationshipSpecialtyStart DateEnd Date Sri Ramírez MD [address] [place] [address] PCP - [facility]07/20/13Te MemberRelationshipSpecialtyStart DateEnd Date Sri Ramírez MD [address] [place] [address] PCP - General07/20/13Team MemberRelationshipSpecialtyStart DateEnd Date Sri Ramírez MD [address] [place] [address] PCP - [facility]07/20/13Te MemberRelationshipSpecialtyStart DateEnd Date Sri Ramírez MD [facility] [place] [address] [facility] - [facility]09/19/22 Daisy Hurst, HEATING ELEMENT REPAIRER-WATERPROOF BAG CUTTING MACHINE OPERATOR [address] [place] [address] PCP - [facility] [employer]09/12/23 Kayla Kahn DO [address] [place] [address] Referring Physician09/19/22Team MemberRelationshipSpecialtyStart DateEnd [facility] Sri Ramírez MD [address] [place] [address] PCP - [facility]09/19/22 Daisy Hurst, HEATING ELEMENT REPAIRER-WATERPROOF BAG CUTTING MACHINE OPERATOR [address] [place] [address] PCP - [facility]09/12/23 Kayla Kahn, [address] [place] [address] Referring Physician09/19/22Team MemberRelationshipSpecialtyStart DateEnd Date Sri Ramírez MD [address] [facility] [place] [address] PCP - [facility] Medicine09/19/22 Daisy Hurst, HEATING ELEMENT REPAIRER-WATERPROOF BAG CUTTING MACHINE OPERATOR [address] [place] [address] PCP - [facility] [employer]09/12/23 Kayla Kahn DO [address] [place] [address] Referring Physician09/19/22Te MemberRelationshipSpecialtyStart [facility] Sri Ramírez MD [address] [facility] [place] [address] PCP - GeneralFamily Medicine09/19/22 Daisy Hurst, HEATING ELEMENT REPAIRER-WATERPROOF BAG CUTTING MACHINE OPERATOR [address] [facility] [address] [place] [address] PCP - [facility] [employer]09/12/23 Kayla Kahn DO [address] [facility] [address] [place] [address] Referring Physician09/19/22Te MemberRelationshipSpecialtyStart [facility] Sri Ramírez MD [address] [facility] [place] [address] PCP - Generalmily Medicine09/19/22 Daisy Hurst, HEATING ELEMENT REPAIRER-WATERPROOF BAG CUTTING MACHINE OPERATOR [address] [facility] [address] [place] [address] PCP - [facility] [employer]09/12/23 Kayla Kahn DO [address] [place] [facility] [place] [address] Referring Physician09/19/22Te MemberRelationshipSpecialtyStart [facility] Sri Ramírez MD [address] [place] [facility] [place] [address] PCP - GeneralFamily Medicine09/19/22 Daisy Hurst, HEATING ELEMENT REPAIRER-WATERPROOF BAG CUTTING MACHINE OPERATOR [address] [facility] [address] [place] [address] PCP - [facility] [employer]09/12/23 Kayla Kahn DO [address] [place] [facility] [place] [address] Referring Physician09/19/22Te MemberRelationshipSpecialtyStart [facility] Sri Ramírez MD [address] [place] [facility] [place] [address] PCP - GeneralFamily Medicine09/19/22 Daisy Hurst, HEATING ELEMENT REPAIRER-WATERPROOF BAG CUTTING MACHINE OPERATOR [address] [facility] [address] [place] [address] PCP - [facility] [employer]09/12/23 Kayla Kahn, DO [address] [facility] [address] [place] [address] Referring Physician09/19/22Te MemberRelationshipSpecialtyStart [facility] Sri Ramírez MD [address] [place] [facility] [place] [address] PCP - GeneralFamily Medicine09/19/22 Daisy Hurst, HEATING ELEMENT REPAIRER-WATERPROOF BAG CUTTING MACHINE OPERATOR [address] [facility] [address] [place] [address] PCP - [facility] [employer]09/12/23 Kayla Kahn DO [address] [place] [facility] [place] [address] Referring Physician09/19/22Te MemberRelationshipSpecialtyStart [facility] Sri Ramírez MD [address] [place] [facility] [place] [address] PCP - [facility]Fabaystate [facility] Medicine09/19/22 Daisy Hurst, HEATING ELEMENT REPAIRER-WATERPROOF BAG CUTTING MACHINE OPERATOR [address] [facility] [address] [place] [address] PCP - [facility] [employer]09/12/23 Kayla Kahn DO [address] [place] [facility] [place] [address] Referring Physician09/19/22Team MemberRelationshipSpecialtyStart DateEnd Date Sri Ramírez MD [address] [place] [facility] [place] [address] PCP - [facility]Miller [facility]09/19/22 Daisy Hurst, HEATING ELEMENT REPAIRER-WATERPROOF BAG CUTTING MACHINE OPERATOR [address] [facility] [address] [place] [address] PCP - [facility] [employer]09/12/23 Kayla Kahn DO [address] [place] [facility] [place] [address] Referring Physician09/19/22Team MemberRelationshipSpecialtyStart DateEnd Date Sri Ramírez MD [address] [place] [facility] [place] [address] PCP - [facility]Miller [facility]09/19/22 Daisy Hurst, HEATING ELEMENT REPAIRER-WATERPROOF BAG CUTTING MACHINE OPERATOR [address] [facility] [address] [place] [address] PCP - [facility] [employer]09/12/23 Kayla Kahn DO [address] [facility] [place] [address] Referring Physician09/19/22Te MemberRelationshipSpecialtyStart [facility] Sri Ramírez MD [address] [facility] [place] [address] PCP - GeneralFamily Medicine09/19/22 Daisy Hurst, HEATING ELEMENT REPAIRER-WATERPROOF BAG CUTTING MACHINE OPERATOR [address] [place] [address] PCP - [facility] [employer]09/12/23 Kayla Kahn DO [address] [facility] [place] [address] Referring Physician09/19/22Te MemberRelationshipSpecialtyStart [facility] Sri Ramírez MD [address] [place] [address] PCP - [facility] Medicine09/19/22 Daisy Hurst, HEATING ELEMENT REPAIRER-WATERPROOF BAG CUTTING MACHINE OPERATOR [address] [place] [address] PCP - [facility] [employer]09/12/23 Kayla Kahn DO [address] [place] [address] Referring Physician09/19/22Te MemberRelationshipSpecialtyStart [facility] Sri Ramírez MD [address] [place] [address] [facility]09/19/22 Daisy Hurst, HEATING ELEMENT REPAIRER-WATERPROOF BAG CUTTING MACHINE OPERATOR [address] [facility] [address] [place] [address] PCP - [facility] [employer]09/12/23 Kayla Kahn DO [address] [place] [address] Referring Physician09/19/22Te MemberRelationshipSpecialtyStart [place] [facility] Sri Ramírez MD [address] [place] [address] [facility] - [facility]22 Daisy Hurst, HEATING ELEMENT REPAIRER-WATERPROOF BAG CUTTING MACHINE OPERATOR [address] [facility] [address] [place] [address] PCP - [place] [employer]09/12/23 Kayla Kahn DO [address] [place] [address] Referring Physician09/19/22Te MemberRelationshipSpecialtyStart [facility] Sri Ramírez MD [address] [place] [address] PCP - Generalmily Medicine09/19/22 Daisy Hurst, HEATING ELEMENT REPAIRER-WATERPROOF BAG CUTTING MACHINE OPERATOR [address] [facility] [address] [place] [address] PCP - [place] [employer]09/12/23 Kayla Kahn DO [address] [place] [address] Referring Physician09/19/22Te MemberRelationshipSpecialtyStart [facility] Date Sri Ramírez MD [address] [place] [address] PCP - [facility] Medicine09/19/22 Kayla Khan DO [address] [place] [address] Referring Physician09/19/22Te MemberRelationshipSpecialtyStart DateEnd Date Sri Ramírez MD [address] [place] [facility] [place] [address] PCP - [facility]09/19/22 Kayla Kahn DO [address] [place] [facility] [place] [address] Referring Physician09/19/22Te MemberRelationshipSpecialtyStart DateEnd Date Sri Ramírez MD [address] [facility] [place] [address] PCP - [facility]09/19/22 Kayla Kahn DO [address] [place] [address] Referring Physician09/19/22Te MemberRelationshipSpecialtyStart DateEnd Date Sri Ramírez MD [address] [place] [address] PCP - [facility]09/19/22 Kayla Kahn DO [address] [facility] [place] [address] Referring Physician09/19/22Team MemberRelationshipSpecialtyStart DateEnd Date Sri Ramírez MD [address] [facility] [place] [address] PCP - [facility] Medicine09/19/22 Kayla Kahn DO [address] [place] [address] Referring Physician09/19/22Team MemberRelationshipSpecialtyStart DateEnd Date Sri Ramírez MD [address] [place] [address] PCP - [facility]09/19/22 Kayla Kahn DO [address] [place] [address] Referring Physician09/19/22Te MemberRelationshipSpecialtyStart DateEnd Date Sri Ramírez MD [address] [place] [address] PCP - [facility]09/19/22 Kayla Kahn DO [address] [place] [address] Referring Physician09/19/22Te MemberRelationshipSpecialtyStart DateEnd Date Sri Ramírez MD [address] [place] [address] PCP - [facility] Medicine09/19/22 Kayla Kahn DO [address] [place] [address] Referring Physician09/19/22Team MemberRelationshipSpecialtyStart DateEnd [facility] Sri Ramírez MD [address] [place] [address] PCP - Generalmily Medicine09/19/22 Kayla Kahn DO [address] [place] [address] Referring Physician09/19/22Team MemberRelationshipSpecialtyStart DateEnd [facility] Sri Ramírez MD [facility] [place] [address] PCP - [facility] Medicine09/19/22 Kayla Kanh DO [facility] [place] [address] Referring Physician09/19/22Team MemberRelationshipSpecialtyStart DateEnd [facility] Sri Ramírez MD [facility] [place] [address] PCP - [facility] Medicine09/19/22 Kayla Kahn DO [facility] [place] [address] Referring Physician09/19/22Team MemberRelationshipSpecialtyStart DateEnd [facility] Sri Ramírez MD [facility] [place] [address] PCP - Generalm[facility] Medicine09/19/22 Daisy Hurst APRN-WATERPROOF BAG CUTTING MACHINE OPERATOR [address] [facility] [address] [place] [address] PCP - Jorden Monteiro Kayla Kahn DO [address] [place] [address] Referring Physician09/19/22 Reason for Visit (unrecogniz ed section and content) SpecialtyDiagnoses / ProceduresReferred By ContactReferred To ContactRadiology Diagnoses Ureteral stone with hydronephrosis Suprapubic pain Dysuria Urgency of urination Procedures US RENAL COMPLETE Jason Bradley, HEATING ELEMENT REPAIRER - AIRDOX FITTER [address] [facility] [address] [place] [address] Referral IDStatusReasonStart DateExpiration DateVisits RequestedVisits [id number] Women VisitReason CommentsVaginitis/Bacterial VaginosisPt present today for follow up on BV/UTI. Pt complains of having an odor and would like cx's done at todays visit.Reason CommentsPre-op VisitReasonCommentspelvic pressureReasonCommentsPost-op Visit ReasonCommentsBV and CulturesReasonCommentsER Follow-upReasonCommentsAnnual Exam Breast MassReasonCommentsAmenorrheaReasonCommentsRoutine Visit INFORMATION SOURCE (unrecogn ized section and content) DATE CREATED AUTHOR 06/23/2021 [facility] DATE CREATED AUTHOR AUTHOR'S ORGANIZ ATION 05/20/2022 [facility] DATE CREATED AUTHOR AUTHOR'S ORGANIZ ATION 09/25/2023 [facility] DATE CREATED AUTHOR AUTHOR'S ORGANIZ ATION 03/27/2024 [facility] DATE CREATED AUTHOR AUTHOR'S ORGANIZ ATION 04/13/2024 [facility] DATE CREATED AUTHOR AUTHOR'S ORGANIZ ATION 08/02/2024 [facility] DATE CREATED AUTHOR AUTHOR'S ORGANIZ ATION 02/08/2025 [facility] EPIC FOR RECORDS PERTAINING TO [...] BE BASED ON THE PRIMARY CLINICAL RECORDS. [facility] provides no warranty or guarantee of the accuracy or completeness of information in this document.
--- OUTSIDE RECORDS SUMMARY | 2025-02-18 22:44 | XMS_ITS | Encounter Summary ---
Author Organization [facility] Address [address] [place] [address] Care Team Providers Care Bridge Gang Worker Name Role Phone Sri Ramírez MD Primary Care Provider [phone] Kayla Kahn DO Unavailable [phone] Daisy Hurst FIELD LIABILITY GENERALIST-[employer]USIC [employer]ESSION[employer] Unavailable Encounter Details DateTypeDepartmentCare Team (Latest Contact Info)Jdiicdjzlpv73/10/2024linisync Result Encounter [facility] External Department Unsolicited Provider, Generic External Data Social History Tobacco UseTypesPacks/DayYears UsedDateSmoking Tobacco: FormerCigarettes0.55 Smokeless Tobacco: NeverAlcohol UseStandard Drinks/WeekCommentsNever0 (1 standard drink = 0.6 oz pure alcohol)caffeine: 1-2 cups coffee or energy drink [id number] Health LiteracyAnswerDate RecordedHow often do you need [...] 09/24/2023How often do you attend restorationist or denominational services?Patient declined 09/24/2023o you belong to any clubs or organizations such as restorationist groups, unions, fraternal or athletic groups, or school groups?No09/24/2023How often do you attend meetings of the clubs or organizations you belong to?Never06/ Are you , , , , never , or living with a partner?Patient suafsose46/13/2024UDIT-CAnswerDate RecordedQ1: How often do you have a [...] heating?Not hard at all09/24/2023HQ-2AnswerDate RecordedPatient Health Questionnaire-2 Owvxg658[facility] [place] of Occupational Health - Occupational Stress QuestionnaireAnswerDate [...] or living in a longterm (including now)?No09/24/2023 CommentsUnknownSex and Gender InformationValueDate RecordedSex Assigned at BirthNot on fileLegal QkwKuxhfi24/15/2023 6:40 PM EDTGender IdentityNot on fileSexual OrientationNot on filedocumented as of this encounter Functional Status * Over the past 2 weeks, how often have you been bothered by any of the following problems?QuestionAnswerDate of AssessmentAuthorLittle interest or pleasure in doing thingsNot at all07/18/2024 8:00 AM Oxana Umanzor MA Feeling down, depressed, or hopelessNot at all07/18/2024 8:00 AM Oxana Umanzor MAPatient Health Questionnaire-2 Xeewk190 8:00 AM MICHEALT Oxana Blanca MA documented as of this encounter Plan of Treatment DateTypeDepartmentCare Team (Latest Contact Info)Irotaxvhtll80/11/2025 10:30 AM ESTRoutine [facility] [address] [id number] Jose Pan DO [address] [facility] [address] [place] [address] documented as of this encounter Procedures Procedure NamePriorityDate/TimeAssociated DiagnosisCommentsUS RENAL BI03/22/2024 6:57 AM EST documented in this encounter Results * US RENAL BI (03/22/2024 6:57 AM EST)Anatomical RegionLateralityModalityOther Specimen (Source)Anatomical Location / LateralityCollection Method / Volume Collection TimeReceived Time03/22/2024 6:57 AM EST Narrative 03/22/2024 6:59 AM EST [facility] ?[address] ? [place] [address] ? Ultrasound Report ? Signed ? Patient: HOLLEY,FAHEEM R ?MR#: [id number] ?? : 1995 ?Acct:[id number] ?? Age/Sex: 29 / F ?ADM Date: 12/09/24 ?? Loc: US ? Attending Dr: Bonita Yu CUTTER HELPER ? Ordering Physician: Bonita Yu NP ?? Date of Service: 03/21/24 ?? Procedure(s): US renal BI ?? Accession Number(s): [id number] ? cc: SRI RAMÍREZ ; Bonita Yu NP ? [facility] ? [address] ? [place] [address] ? Patient Name: ?? FAHEEM BELCHER ? MRN: [facility]:[id number] ? date: 1995 ?Sex: F ?? Assigned Patient Location: US ?? Current Patient Location: ? Accession/Order Number: [id number] ?? Exam Date: 03/21/2024 ??12:58 ?Report Date: [...] 0659 ? DD/ 0657 ? TD/TT: ? Show Jumping Instructor: Procedure Note Radiology, Radiologist, MD - 03/22/[address] [address] Ultrasound Report Signed Patient: FAHEEM BELCHER RMR#: [id number] : 1995Acct:[id number] Age/Sex: 29 / FADM Date: 03/21/24 Loc: US Attending Dr: Bonita Yu CUTTER HELPER Ordering Physician: Bonita Yu NP Date of Service: 03/21/24 Procedure(s): US renal BI Accession Number(s): [id number] cc: SIR RAMÍREZ ; Bonita Yu NP [place] [id number] Patient Name: FAHEEM BELCHER MRN: [id number] date: 1995 Sex: F Assigned Patient Location: [place] Current Patient Location: Accession/Order Number: [id number] Exam Date: 03/21/2024 12:58 Report Date: 03/22/2024 [...] Vasquez M.D. Signed By:03/22/2459 DD/ 6 TD/TT: Show Jumping Instructor: Authorizing ProviderResult TypeResult StatusGeneric External Data Provider [facility] IMAGINGFinal Result documented in this encounter Visit Diagnoses Not on filedocumented in this encounter Care Teams Team MemberRelationshipSpecialtyStart DateEnd Date Sri Ramírez MD [address] [place] [address] PCP - GeneralFacaly Medicine09/19/22 Daisy Hurst, FIELD LIABILITY GENERALIST-MUSIC PROFESSIONALS [address] [address] PCP - [facility] Kayla Kahn DO [address] [place] [address] Referring Physician09/19/22documented as of this encounter
--- OUTSIDE RECORDS SUMMARY | 2025-02-18 22:45 | XMS_ITS | Encounter Summary ---
Author Organization [facility] Address [address] [place] [address] Care Team Providers Care Sliver Lapper Name Role Phone Sri Ramírez MD Primary Care Provider [phone] Kayla Kahn DO Unavailable [phone] Encounter Details DateTypeDepartmentCare Team (Latest Contact Info)Espxarfrxbh58/05/2025Telephone [facility] [address] [place] [address] Jose aPn DO [address] [facility] [address] [place] [id number] Social History Tobacco UseTypesPacks/DayYears UsedDateSmoking Tobacco: FormerCigarettes0.55 Smokeless Tobacco: NeverAlcohol UseStandard Drinks/WeekCommentsNever0 (1 standard drink = 0.6 oz pure alcohol)caffeine: 1-2 cups coffee or energy drink [id number] Health LiteracyAnswerDate RecordedHow often do you need [...] 09/24/2023How often do you attend episcopal or scientology services?Patient declined 09/24/2023o you belong to any clubs or organizations such as episcopal groups, unions, fraternal or athletic groups, or school groups?No09/24/2023How often do you attend meetings of the clubs or organizations you belong to?Never09/24/2023 Are you , , , , never , or living with a partner?Patient ggygngkk21/13/2024UDIT-CAnswerDate RecordedQ1: How often do you have a [...] heating?Not hard at all09/24/2023HQ-2AnswerDate RecordedPatient Health Questionnaire-2 Hucyd784[facility] [place] of Occupational Health - Occupational Stress QuestionnaireAnswerDate [...] were you homeless or living in a mcfp (including now)?No09/24/2023 Estimated Date of LnfbatesHosjhrkfZkl05/14/2025Based on last menstrual period of 06/19/2024Sex and Gender InformationValueDate RecordedSex Assigned at BirthNot on fileLegal IkwKcjags38/15/2023 6:40 PM EDTGender IdentityNot on file Sexual [...] Patient states that she does not think [place]. Patient denies any bleeding and she [...] Plan of Treatment DateTypeDepartmentCare Team (Latest Contact Info)Lpwbkxvpyvy78/11/2025 10:30 AM ESTRoutine [facility] [address] [place] [address] Jose Pan, [address] [facility] [place] [address] documented as of this encounter Visit Diagnoses Not on filedocumented in this encounter Care Teams Team MemberRelationshipSpecialtyStart DateEnd Date Sri Ramíerz MD [address] [place] [address] PCP - GeneralFamily Medicine09/19/22 Kayla Kahn DO [address] [place] [address] Referring Physician09/19/22documented as of this encounter
[2025-02-18] MEDS: CEPHALEXIN 500 MG CAPSULE 1000 MG PO (23:12)
--- NOTE | 2025-02-18 23:15 | PC.NURSE ---
i gave this patient verbal and written discharge orders along with 1 Rx and this patient voices yes to understanding these. at time of discharge this patient voices no concerns, needs and shows no signs of distress
== END 2025-02-18 23:15 | disposition home or self-care (01) ==
PROVIDERS: Emergency Provider Internal Medicine; PCP Family Medicine
DX: O23.43 Unspecified infection of urinary tract in pregnancy, third trimester (principal); N39.0 Urinary tract infection, site not specified; Z3A.35 35 weeks gestation of pregnancy; Z87.891 Personal history of nicotine dependence
CPT/HCPCS: 81001; 87086; 99283; 99285

== ENCOUNTER 2025-02-27 20:27 | Outpatient (REF) | payer BC, SELFPAY ==
--- OUTSIDE RECORDS SUMMARY | 2025-02-27 20:31 | XMS_ITS | CCD ---
Author Organization [facility] Care Team Providers Care Hog Killer Name Role Phone Desiree DILLON Sri Mera Primary Care Provider [phone] JASON BRADLEY Referring Unavailable DESIREE, SRI Mera Primary Care Unavailable PARSELLJASON Referring Unavailable DESIREE, SRI Samaria Primary Care Unavailable PARSJASON WELCH Referring Unavailable DESIREE, SRI Mera Primary Care Unavailable JASON BRADLEY Referring Unavailable DESIREE, SRI Mera Primary Care Unavailable DESIREE, DR BAER Primary Care Unavailable BK DENT Admitting Unavailable BK DENT Attending Unavailable ALISA MOULTON Consulting Unavailable MAXIM, DR WESTON Admitting Unavailable MAXIM, DR WESTON Attending Unavailable DESIREE, DR BAER Primary Care Unavailable MAXIM, DR WESTON Consulting Unavailable [facility], SRI Samaria Primary Care Unavailable DILCIA LAZO Attending Unavailable Desiree DILLON Sri Samaria Primary Care Provider [phone] Femi ROQUE, Kayla R Unavailable Sharifa-Nossek MECHANICAL MAINTENANCE-FITNESS TEACHERDaisy M Unavailable DESIREE SRI Mera Primary Care Physician Femi ROQUE, Kayla R Unavailable Bonita Pinedo Attending Unavailable Bonita Pinedo Attending Unavailable Mitra Ellis Attending Unavailable Mitra Ellis Admitting Unavailable Femi ROQUE Kayla R Unavailable Bonita Pinedo Attending Unavailable JONAH GOMEZ Attending Unavailable JONAH GOMEZ Attending Unavailable JONAH GOMEZ Attending Unavailable Sharifa-Nossek MECHANICAL MAINTENANCE-FITNESS TEACHER, Daisy M Unavailable DAJA RYAN Attending Unavailable MAJORS, REGGIE Attending Unavailable DESIREE, SRI F Attending Unavailable DESIREE SRI F Referring Unavailable MAXIM, JOSE Attending Unavailable DAJA RYAN Attending Unavailable MAXIM, JOSE Attending Unavailable MAXIM, JOSE Attending Unavailable MAXIM, JOSE Attending Unavailable DAJA RYAN Attending Unavailable JANI, JAKE Attending Unavailable JANI, JAKE Referring Unavailable MAXIM, JOSE Attending Unavailable MAXIM, JOSE Attending Unavailable MAXIM, JOSE Attending Unavailable MAXIM, JOSE Attending Unavailable MAXIM, JOSE Attending Unavailable Allergies Allergy ClassificationReported Allergen(s)Allergy TypeDate of OnsetReaction(s) Facility (20 sources)Bacitracin / Polymyxin B; Translations: [bacitracin-polymyxin B topical]Drug Tgavykr64-93-7944Hzmjkxr (qualifier value)[facility] (20 sources)busPIRone; Translations: [buspirone]Drug Tayewmo98-08-8645Sfejfgp, Anxiety (finding)[facility] (20 sources)Escitalopram; Translations: [escitalopram]Drug Qikvywb83-37-1669 Other, Drowsy (finding)[facility] (2 sources)busPIRone; Translations: [BuSpar][facility] (2 sources)Escitalopram; Translations: [Lexapro][facility] (2 sources)Bacitracin-Polymyxin; Translations: [Bacitracin-Polymyxin]Propensity to adverse reactions (disorder)[facility] Medications Current Medications MedicationDrug Class(es)DatesSig (Normalized)Sig (Original)azelaic acid 0.15 mg/mg topical gel (18 sources)Start: 12-05-2024 End: 90-22-6746lajzmnw acid (Finacea) 15 % gel Indications: Acne, unspecified acne type Apply 1 application topically in the morning and 1 application before bedtime. 60 g 11 12/05/2024 12/05/2025 Activecephalexin 500 mg oral capsule (3 sources)Cephalosporin AntibacterialStart: 06-10-2024 End: 05-92-8864yjzzjpdrdz (Keflex) 500 MG capsule Indications: Cellulitis of finger of right hand Take 1 capsule (500 mg) by mouth in the morning and 1 capsule (500 mg) at noon and 1 capsule (500 mg) in the eveningand 1 capsule (500 mg) before bedtime. Do all this for 7 days. 28 capsule 06/10/2024 06/17/2024 ActiveClindamycin (1 source)Lincosamide AntibacterialStart: 03-09-2024 End: 28-66-5141Mtdzpszufqq Phosphate (Xaciato) 2 % gel Indications: Bacterial vaginosis Insert 1 applicator into the vagina at bedtime for 1 day 8 g 03/09/2024 03/10/2024 Activedoxycycline hyclate 100 mg oral capsule (9 sources)Tetracycline-class DrugStart: 02-15-2024 End: 95-44-9075ghutcwdbqni (Vibramycin) 100 MG capsule Indications: Bacterial infection due to mycoplasma Take 1 capsule (100 mg) by mouth in the morning and 1 capsule (100 mg) before bedtime. Do all this for 7 days. Take with at least 8 ounces (large glass) of water, do not lie down for 30 minutes after. 14 capsule 02/15/2024 02/22/2024 ActiveStart: 01-11-2024 End: 95-64-5639myovmrabjqw (Vibramycin) 100 MG capsule Indications: Pelvic pain in female Take 1 capsule (100 mg) by mouth in the morning and 1 capsule (100 mg) before bedtime. Take with at least 8 ounces (large glass) of water, do not lie down for 30 minutes after. 60 capsule 01/11/2024 2024 Activeescitalopram 5 mg oral tablet (4 sources)Serotonin Reuptake InhibitorStart: 88-06-6397rdfbdjkescsn (LEXAPRO) 5 MG tabletmetroNIDAZOLE 500 mg oral tablet (12 sources)Nitroimidazole AntimicrobialStart: 02-09-2025 End: 65-46-6381xmty 1 tablet by mouth in the morningmetroNIDAZOLE (Flagyl) 500 MG tablet Indications: BV (bacterial vaginosis) Take 1 tablet (500 mg) by mouth in the morning and 1 tablet (500 mg) before bedtime. Do all this for 7 days. Do not drink alcohol while taking this medication. 14 tablet 02/09/2025 02/16/2025 ActiveStart: 05-23-2024 End: 77-24-0060kbviwVMYTOVUT (Nuvessa) 1.3 % gel Indications: Vaginal discharge , Vaginal burning Insert 5 g into the vagina 1 time for 1 dose 5 g 05/23/2024 05/23/2024 Discontinued (Other)Start: 03-09-2024 End: 63-63-2760uyqntZEGPHPCO (Metrogel) 0.75 % vaginal gel Indications: Bacterial vaginosis Insert into the vaginaDaily for 5 days 70 g 03/09/2024 03/14/2024 ActiveStart: 2024 End: 49-95-2462dovb 1 tablet by mouth in the morningmetroNIDAZOLE (Flagyl) 500 MG tablet Indications: BV (bacterial vaginosis) Take 1 tablet (500 mg) by mouth in the morning and 1 tablet (500 mg) before bedtime. Do all this for 7 days. Do not drink alcohol while taking this medication. 14 tablet 2024 02/17/2024 ActiveStart: 01-13-2024 End: 53-96-4714nsnx 1 tablet by mouth in the morningmetroNIDAZOLE (Flagyl) 500 MG tablet Indications: BV (bacterial vaginosis) Take 1 tablet (500 mg) by mouth in the morning and 1 tablet (500 mg) before bedtime. Do all this for 7 days. Do not drink alcohol while taking this medication. 14 tablet 01/13/2024 01/27/2024 Discontinuedmoxifloxacin 400 mg oral tablet (2 sources)Quinolone AntimicrobialStart: 02-15-2024 End: 18-25-0263qjtv 1 tablet by mouth once dailymoxifloxacin (Avelox) [...] oral capsule (2 sources)Nitrofuran AntibacterialStart: 09-13-2024 End: 85-41-5584jnwj 1 capsule by mouth in the morningnitrofurantoin, macrocrystal-monohydrate, (Macrobid) 100 MG capsule Indications: Urinary tract infection in mother during , antepartum Take 1 capsule (100 mg) by mouth in the morning and 1 capsule (100 mg) before bedtime. Do all this for 7 days. 14 capsule 09/13/2024 09/20/2024 Activeondansetron 4 mg disintegrating oral tablet (20 sources)Serotonin-3 Receptor AntagonistStart: 49-44-8891loeyjiivpsc ODT (Zofran-ODT) 4 MG disintegrating tablet DISSOLVE 1 TABLET on tongue EVERY 8 HOURS NEEDED FOR NAUSEA & FOR VOMITING 08/13/2024 Activepolyethylene glycol 3350 17831 mg powder for oral solution (4 sources)Osmotic LaxativeStart: 06-12-2021 End: 56-19-0919mdykkiclplpv glycol (GLYCOLAX) 17 GM/SCOOP powder Take 17 g by mouth daily 1530 g 1 06/12/2021 07/12/2021 Activetamsulosin hydrochloride 0.4 mg oral capsule (4 sources)alpha-Adrenergic BlockerStart: 30-39-2920rkhx 1 capsule by mouth once dailytamsulosin (FLOMAX) 0.4 MG capsule Take 1 capsule by mouth daily 30 capsule 0 06/12/2021 Activeterconazole 4 mg/ml vaginal cream (2 sources)Azole AntifungalStart: 02-09-2025 End: 92-99-1623ohmjyikqeyj (Terazol 7) 0.4 % vaginal cream Indications: Yeast infection Insert 1 applicator into the vagina at bedtime for 7 days 45 g 02/09/2025 02/16/2025 Activeubidecarenone 30 mg oral capsule (20 sources)take 1 capsule by mouth once dailyco-enzyme Q-10 30 MG capsule Take 30 mg by mouth Daily Active Completed/Discontinued Medications MedicationDrug Class(es)DatesSig (Normalized)Sig (Original)atomoxetine 40 mg oral capsule (3 sources)Norepinephrine Reuptake Inhibitor End: 71-41-6625ipgz 1 capsule by mouth once dailyatomoxetine (Strattera) 40 MG capsule Take 1 capsule by mouth Daily 01/11/2024 Discontinued (Other) azithromycin 500 mg oral tablet (8 sources)Macrolide AntimicrobialStart: 02-15-2024 End: 29-28-1151vuuz 1 tablet by mouth once dailyazithromycin (Zithromax) 500 MG tablet Indications: Bacterial infection due to mycoplasma Day 1: Take 2 tablets PO onetime dose; Day 2,3,4: Take 1 tablet daily 5 tablet 02/15/2024 04/20/2024 Discontinued (Therapy completed)sertraline 25 mg oral tablet (3 sources)Serotonin Reuptake InhibitorStart: 11-16-2023 End: 10-75-7804iicp 1 tablet by mouth once dailysertraline (Zoloft) 25 MG tablet Indications: Generalized anxiety disorder (CMS/HCC) Take 1 tablet (25 mg) by mouth Daily 30 tablet 1 11/16/2023 01/11/2024 Discontinued (Other) Problems Active Problems Problem ClassificationProblemDateDocumented DateEpisodic/ChronicAdjustment disorders (20 sources)Adjustment disorder with mixed anxiety and depressed mood; Translations: [Adjustment disorder with mixed anxiety and depressed mood]Onset: 418196-40-5238TxrrdgqLhoqtqcp reactions (1 source)Unspecified contact dermatitis, unspecified cause; Translations: [[facility] CONTACT DERMATITIS UNS CAUSE]Onset: 09-01-4776UmabdkvdAqrqaym disorders (20 sources)Anxiety; Translations: [Anxiety disorder, unspecified]Onset: 602730-20-2226LlznvssDjxpdlrvvcsjr and screening for infectious disease (3 sources)Encounter for screening for human papillomavirus (HPV); Translations: [Patient encounter status]Onset: 105280-58-0706HuidzzzzBdbbgignh disorders (20 sources)Amenorrhea; Translations: [Amenorrhea, unspecified]Onset: 09-06-2022 50-84-2021DuidzybHfql disorders (20 sources)Bipolar affective disorder, currently depressed, moderate; Translations: [Bipolar disorder, currentepisode depressed, moderate]Onset: 627283-48-7134EcrvvezRgabtkhweott breast conditions (2 sources)Lump in lower outer quadrant of left breast; Translations: [Unspecified lump in the left breast, lower outer quadrant]38-25-2100Gsfdbyuu Other aftercare (2 sources)Surgical follow-up; Translations: [Encounter for follow-up examination after completed treatment for conditions other than malignant neoplasm]56-54-1543OfuamwubHlayj aftercare (2 sources)Removal of sutures done; Translations: [Encounter for removal of sutures]85-80-5603UscmbhtnEjrmx complications of (2 sources)Urinary tract infection in ; Translations: [Unspecified infection of urinary tract in , unspecified trimester]09-13-2024 EpisodicOther complications of (2 sources) size does not accord with dates; Translations: [Uterine size- date discrepancy, unspecified trimester]52-09-2513WmwmkcbuQyfkf diseases of kidney and ureters (3 sources)Hydronephrosis; Translations: [Hydronephrosis with renal and ureteral calculous obstruction]EpisodicOther female genital disorders (2 sources)Vaginal discharge; Translations: [Other specified noninflammatory disorders of vagina]14-92-7402RepcppqaHpyhw female genital disorders (2 sources)Burning sensation of vagina; Translations: [Other specified conditions associated with female genital organs and menstrual cycle]05-23-2024 EpisodicOther gastrointestinal disorders (20 sources)Irritable bowel syndrome with diarrhea; Translations: [Irritable bowel syndrome with diarrhea]Onset: 400768-44-7786LtojafxHrwfg inflammatory condition of skin (3 sources)Pruritus, unspecified; Translations: [PRURITUS UNSPECIFIED]Onset: 75-40-6737DfingcwsRcoqd nervous system disorders (20 sources)Inattention; Translations: [Attention and concentration deficit] Onset: 157410-43-6827OjugnocDdbwg nervous system disorders (2 sources)Choroid plexus cyst; Translations: [Cerebral cysts]18-50-1570Myygfvx Other and delivery including normal (20 sources); Translations: [Encounter for supervision of normal , unspecified, unspecified trimester]31-07-5397HeqgvwbzSsmcz screening for suspected conditions (not mental disorders or infectious disease) (14 sources)Encounter for screening for malignant neoplasm of cervix; Translations: [Patient encounter status]Onset: 90-19-8238FsfsvoctFztjc skin disorders (2 sources)Acne; Translations: [Acne, unspecified]81-64-1466PstzgwdsVuojcjxr codes; unclassified (2 sources)Gestation period, 12 weeks; Translations: [12 weeks gestation of ]25-07-5106XqxtnxszAekaseju codes; unclassified (2 sources)Gestation period, 14 weeks; Translations: [14 weeks gestation of ]55-47-1711JqgohpobNciqakfv codes; unclassified (2 sources)Gestation period, 16 weeks; Translations: [16 weeks gestation of ]75-06-0978RkcerjdzSpzeagfj codes; unclassified (2 sources)Gestation period, 20 weeks; Translations: [20 weeks gestation of ]21-38-7353RcdhasyiLgskuvfm codes; unclassified (2 sources)Gestation period, 24 weeks; Translations: [24 weeks gestation of ]01-99-6800AaasixpeJuvslrvo codes; unclassified (2 sources)Gestation period, 27 weeks; Translations: [27 weeks gestation of ]61-09-2993GuxskbecJljugbzv codes; unclassified (2 sources)Gestation period, 29 weeks; Translations: [29 weeks gestation of ]55-92-9533AagupqvcCnaqnlib codes; unclassified (2 sources)Gestation period, 31 weeks; Translations: [31 weeks gestation of ]67-76-3384NxursqbaTxmuxuyx codes; unclassified (2 sources)Gestation period, 33 weeks; Translations: [33 weeks gestation of ]06-99-4451CvgjpyngEuhq and subcutaneous tissue infections (2 sources)Cellulitis of finger of right hand; Translations: [Cellulitis of right finger]25-77-5802GhgxoouuDzjryeeuztsp (12 sources)Pain in pelvis; Translations: [Pain in pelvis]Onset: 09-06-2022 09-06-2022 Past or Other Problems Problem ClassificationProblemDateDocumented DateEpisodic/ChronicAbdominal pain (20 sources)Suprapubic pain; Translations: [Pelvic and perineal pain]Onset: 56-55-3763LntxdwkpGatwjbayw infection; unspecified site (20 sources)Mycoplasma infection; Translations: [Mycoplasma infection, unspecified site]Onset: 115594-09-4756GcsmvswsWdimnjrx of urinary tract (20 sources)Kidney stone; Translations: [Calculus of kidney]Onset: 07-25-2013 28-76-3559MpinrzizHggaugfrvulh of device; implant or graft (20 sources)Disorder of intrauterine contraceptive device; Translations: [Unspecified complication of genitourinary prosthetic device, implant and graft, initial encounter]Onset: 717347-00-5667OelmxhvxAqwnylwtetlvs symptoms and ill-defined conditions (20 sources)Dysuria; Translations: [Dysuria]Onset: 00-02-1080Lryxaiel Inflammatory diseases of female pelvic organs (20 sources)Bacterial vaginosis; Translations: [Acute vaginitis]Onset: 759587-68-9333SybcbqmsUqyyq complications of (20 sources)Anxiety in ; Translations: [Other mental disorders complicating , unspecified trimester]Onset: EpisodicOther complications of (20 sources)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 ; Translations: [Other mental disorders complicating , unspecified trimester]Onset: 644776-45-4057XxufvyyfLfklx complications of (20 sources)Other mental disorders complicating , unspecified trimester; Translations: [Mental disorders of mother, antepartum condition or complication]Onset: 968298-81-8880XityiimkCunwv female genital disorders (20 sources)Vaginal odor; Translations: [Other specified noninflammatory disorders of vagina]Onset: 185596-11-2605XrnggzohJhhto gastrointestinal disorders (20 sources)Slow transit constipation; Translations: [Slow transit constipation] Onset: 286921-49-1396ArnfyppiXfwkw infections; including parasitic (20 sources)History of chlamydial infection; Translations: [Personal history of other infectious and parasitic diseases]Onset: 161349-09-6977Johuzvbw Urinary tract infections (20 sources)Cystitis, unspecified with hematuria; Translations: [Urinary tract infectious disease]Onset: 264393-38-6917Axgbctvg Results Test NameValueInterpretationReference RangeFacilityUS OB BPP W NON-STRESS on 89-69-[place]25[place]qn[place] [address] Ultrasound Report Signed Patient: FAHEEM BABB MR#: [id number] : 1995 Acct:[id number] Age/Sex: 30 / F ADM Date: Loc: [facility] 256-[address]: Jose Pan D.O. Ordering Physician: Jose Pan D.O. Date of Service: 02/15/25 Procedure(s): US OB BPP w non-stress Accession Number(s): [id number] cc: SRI RAMÍREZ ; Jose Pan D.O. The [place] [address] Patient Name: FAHEEM BABB MRN: [id number] date: 1995 Sex: F Assigned Patient Location: [facility] Current Patient Location: Accession/Order Number: [id number] Exam Date: 02/15/2025 14:44 Report Date: 02/16/2025 [...] Michael M.D. 02/16/2025 9:04 AM Dictation Location: [place] [address] Electronically authenticated by: [id number] Y Date: 02/16/2025 09:04 Dictated By: Ana Michael M.D. Signed By: 02/16/25905 DD/ 3 TD/TT: Quality Assurance Practice Manager:CHRISadiologmatthieu, Radiologist, - 02/16/2025 [place] [address] Ultrasound Report Signed Patient: FAHEEM BABB MR#: [id number] : 1995 Acct:[id number] Age/Sex: 30 / F ADM Date: Loc: [facility] 256-[address]: Jose Pan D.O. Ordering Physician: Jose Pan D.O. Date of Service: 02/15/25 Procedure(s): US OB BPP w non-stress Accession Number(s): [id number] cc: SRI RAMÍREZ ; Jose Pan D.O. [facility] [place] [address] Patient Name: FAHEEM BABB MRN: [id number] date: 1995 Sex: F Assigned Patient Location: [facility] Current Patient Location: Accession/Order Number: [id number] Exam Date: 02/15/2025 14:44 Report Date: 02/16/2025 [...] Michael M.D. 02/16/2025 9:04 AM Dictation Location: [place] [address] Electronically authenticated by: [id number] Y Date: 02/16/2025 09:04 Dictated By: Ana Michael M.D. Signed By: 02/16/25905 DD/ 3 TD/TT: Quality Assurance Practice Manager: [facility] HOSPITALGabriella HealthcareRadiology Study observation (narrative)NOMS HealthcareUS OB BPP W NON-STRESSOrdered By: Radiologist Radiology on 72-53-6104WFYT [facility] Work Phone: tbh UA (CLEAN/CATCH) FITNESS TEACHER/MICRO IF IND.on 02-15-2025 BILIRUBIN URINENegativeNEGATIVENOMS HealthcareBLOOD URINENegativeNEGATIVENOMS HealthcareClarity (U)CLEARCLEARNOMS HealthcareColor (U)LT. YELLOWYELLOWNOMS HealthcareGLUCOSE URINE UANegativeNEGATIVE mg/dLNOIL HealthcareInterpretation and review of laboratory resultsAbnormalNOMS HealthcareKetones Ql (U)Negative NEGATIVE mg/dLNOMS HealthcareLeukocyte esterase Test strip Ql (U)TRACEAbnormal NEGATIVENOMS HealthcareNITRITE URINENegativeNEGATIVENOMS HealthcarepH (U)7.0 [pH]5.0 - 9.0NOMS HealthcarePROTEIN URINENegativeNEG/TRACE mg/dLNOMS Healthcare SPECIFIC GRAVITY URINE1.0101.005 - 1.025NOMS HealthcareURINE MICROSCOPIC INDICATEDYESNOMS HealthcareUROBILINOGEN URINE0.2 EU/dL0.2 - 1.0 EU/dLNOMS HealthcareCLINISYNCNOMS HealthcareUrinalysis macro (dipstick) panel (U)on 29-84-9972Mklryylet, UANegativeNegative - 4(70) +++ mg/dLNOMS HealthcareBlood, UANegativeNegative [...] - 12 mg/dLNOMS HealthcareNOMS HealthcareUS OB GROWTHon 43-26-3176Svq [place] [address] Ultrasound Report Signed Patient: FAHEEM BABB MR#: [id number] : 1995 Acct:[id number] Age/Sex: 29 / F ADM Date: 02/01/25 Loc: US Attending Dr: Jose Pan D.O. Ordering Physician: Jose Pan D.O. Date of Service: 02/01/25 Procedure(s): US OB growth Accession Number(s): [id number] cc: SRI RAMÍREZ Corey D.O. [facility] [place] [address] Patient Name: FAHEEM BABB MRN: [id number] date: 1995 Sex: F Assigned Patient Location: [place] Current Patient Location: Accession/Order Number: [id number] Exam Date: 02/01/2025 13:36 Report Date: 02/02/2025 [...] Michael M.D. 02/02/2025 8:33 AM Dictation Location: [place] [address] Electronically authenticated by: [id number] Y Date: 02/02/2025 08:33 Dictated By: Ana Michael M.D. Signed By: 02/02/25834 DD/ 2 TD/TT: Quality Assurance Practice Manager:TBHRadiology, Radiologist, MD - 02/02/2025 [place] [address] Ultrasound Report Signed Patient: FAHEEM BABB MR#: [id number] : 1995 Acct:[id number] Age/Sex: 29 / F ADM Date: 02/01/25 Loc: US Attending Dr: Jose Pan D.O. Ordering Physician: Jose Pan D.O. Date of Service: 02/01/25 Procedure(s): US OB growth Accession Number(s): [id number] cc: SRI RAMÍREZ Corey D.O. The [address] [address] Patient Name: FAHEEM BABB MRN: [id number] date: 1995 Sex: F Assigned Patient Location: [place] Current Patient Location: Accession/Order Number: [id number] Exam Date: 02/01/2025 13:36 Report Date: 02/02/2025 [...] Michael M.D. 02/02/2025 8:33 AM [facility]ict[facility] by: [id number] Y Date: 02/02/2025 08:33 Dictated By: Ana Michael M.D. Signed By: 02/02/25834 DD/ 2 TD/TT: Quality Assurance Practice Manager: PABLITO MeyersRadiology Study observation (narrative)[facility] OB GROWTHOrdered By: Radiologist Radiology on 72-35-1467[facility] Work Phone: [place] OB LIMITED 1+ FETUSESon 59-84-1531[place] OB LIMITED 1+ FETUSESFINDINGS: Comparison made with [...] Delivery: 03/26/25 Gestational Age as of 01/24/2025: 89m6vOahcjehrwq macro (dipstick) panel (U)on 27-56-6717Yfctuyggp, UANegativeNegative - 4(70) +++ mg/dLNOMS HealthcareBlood, UANegativeNegative [...] mg/dLNOMS HealthcareNOMS HealthcareUrinalysis macro (dipstick) panel (U)on 18-02-7130Tasbtcqsp, UA NegativeNegative - 4(70) +++ mg/dLNOMS HealthcareBlood, [...] mg/dLNOMS HealthcareNOMS HealthcareUrinalysis macro (dipstick) panel (U)on 82-89-8709Kmhanhdmt, UANegativeNegative - 4(70) +++ mg/dLNOMS HealthcareBlood, UANegativeNegative [...] - 12 mg/dLNOMS HealthcareNOMS HealthcareGLUCOSE 1 HOURon 84-32-3993Xfpcesn [Mass/Vol]124 mg/dL NINF - 130 mg/dLNOMS HealthcareCLINISYNCNOMS HealthcareUS for multiple gestation limitedon 60-66-1054XyqPal[place] [address] Ultrasound Report Signed Patient: FAHEEM BABB MR#: [id number] : 1995 Acct:[id number] Age/Sex: 29 / F ADM Date: 12/05/24 Loc: US Attending Dr: Jake Gunter Ordering Physician: Jake Gunter Date of Service: 12/05/24 Procedure(s): US OB follow up Accession Number(s): [id number] cc: SRI RAMÍREZ Kristina [address] [address] Patient Name: FAHEEM BABB MRN: [id number] date: 1995 Sex: F Assigned Patient Location: US Current Patient Location: US Accession/Order Number: [id number] Exam Date: 12/05/2024 13:08 Report Date: 12/05/2024 [...] Jr., D.O. 12/05/2024 2:33 PM Dictation Location: [place] [address] Electronically authenticated by: [id number] Y Date: 12/05/2024 14:33 Dictated By: Elpidio Brush M.D. Signed By: 12/05/246 DD/ 32 TD/TT: Quality Assurance Practice Manager:TBHRadiology, Radiologist, MD - 12/05/2024 [place] [address] Ultrasound Report Signed Patient: FAHEEM BABB MR#: [id number] : 1995 Acct:[id number] Age/Sex: 29 / F ADM Date: 12/05/24 Loc: US Attending Dr: Jake Gunter Ordering Physician: Jake Gunter Date of Service: 12/05/24 Procedure(s): US OB follow up Accession Number(s): [id number] cc: SRI RAMÍREZ ; Jake Gunter The [address] [address] Patient Name: FAHEEM BABB MRN: [id number] date: 1995 Sex: F Assigned Patient Location: US Current Patient Location: US Accession/Order Number: [id number] Exam Date: 12/05/2024 13:08 Report Date: 12/05/2024 [...] Jr., D.O. 12/05/2024 2:33 PM Dictation Location: [place] [address] Electronically authenticated by: [id number] Y Date: 12/05/2024 14:33 Dictated By: Elpidio Brush M.D. Signed By: 12/05/24 143 DD/ 32 TD/TT: Quality Assurance Practice Manager: [facility] HealthcareRadiology Study observation (narrative)[facility] HealthcareUS for multiple gestation limitedOrdered By: Radiologist Radiology on 54-61-5877DCHYCox North Work Phone: Urinalysis macro (dipstick) panel (U)on 12-05-2024 Bilirubin, UANegativeNegative - 4(70) +++ mg/dLNOMS HealthcareBlood, UANegative Negative - 50 Allen/mcLNOMS HealthcareClarity, UAClearNOMS HealthcareColor, UA YellowNOMS HealthcareGlucose, UANegativeNegative - 2000(110) ++++ mg/dLNOIL HealthcareInterpretation and review of laboratory resultsNormalNOMS Healthcare Ketones, UANegativeNegative - 160(16) ++++ mg/dLNOMS HealthcareLeukocytes, UA NegativeNegative - 500+++ Andrei/mcLNOMS HealthcareNitrite, UANegativeNegative - PositiveNOMS HealthcarepH, UA6.55 - 9NOMS HealthcareProtein, UANegativeNegative - 2000(20) ++++ mg/dLNOMS HealthcareSpec Grav, UA1.011 - 1.03NOMS Healthcare Urobilinogen, UA0.20.2 - 12 mg/dLNOMS HealthcareNOMS HealthcareNo Panel InformationOrdered By: Radiologist Radiology on 96-71-1049ITGF [employer] Work Phone: No Panel Informationon 28-08-1717Oxjezenrc Study observation (narrative)PABLITO MeyersUS OB ANATOMYon 86-15-1848Jnz[address] [address] Ultrasound Report Signed Patient: FAHEEM BABB MR#: [id number] : 1995 Acct:[id number] Age/Sex: 29 / F ADM Date: 11/07/24 Loc: US Attending Dr: Jose Pan D.O. Ordering Physician: Jose Pan D.O. Date of Service: 11/07/24 Procedure(s): US OB anatomy Accession Number(s): [id number] cc: SRI RAMÍREZ ; Jose Pan D.O. The [address] [address] Patient Name: FAHEEM BABB MRN: [id number] date: 1995 Sex: F Assigned Patient Location: US Current Patient Location: US Accession/Order Number: [id number] Exam Date: 11/07/2024 12:17 Report Date: 11/07/2024 [...] all 4 extremities were surveyed by the blind aide. 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 [...] Michael M.D. 11/07/2024 12:24 PM Dictation Location: [place] [address] Electronically authenticated by: [id number] Y Date: 11/07/2024 12:24 Dictated By: Ana Michael M.D. Signed By: 11/07/24 1226 DD/ 1224 TD/TT: Quality Assurance Practice Manager:TBHRadiology, Radiologist, - 11/07/2024 [place] [address] Ultrasound Report Signed Patient: FAHEEM BABB MR#: [id number] : 1995 Acct:[id number] Age/Sex: 29 / F ADM Date: 11/07/24 Loc: US Attending Dr: Jose Pan D.O. Ordering Physician: Jose Pan D.O. Date of Service: 11/07/24 Procedure(s): US OB anatomy Accession Number(s): [id number] cc: SRI RAMÍREZ ; Jose Pan D.O. The [address] [address] Patient Name: FAHEEM BABB MRN: TBH:[id number] date: 1995 Sex: F Assigned Patient Location: US Current Patient Location: US Accession/Order Number: [id number] Exam Date: 11/07/2024 12:17 Report Date: 11/07/2024 [...] all 4 extremities were surveyed by the blind aide. 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 [...] Michael M.D. 11/07/2024 12:24 PM Dictation Location: [place] [address] Electronically authenticated by: [id number] Y Date: 11/07/2024 12:24 Dictated By: Ana Michael M.D. Signed By: 11/07/24 1226 DD/ 1224 TD/TT: Quality Assurance Practice Manager: PABLITO Germain OB CERVICAL LENGTHon 24-98-5531M[address] [address] Ultrasound Report Signed Patient: FAHEEM BABB MR#: [id number] : 1995 Acct:[id number] Age/Sex: 29 / F ADM Date: 11/07/24 Loc: US Attending Dr: Jose Pan D.O. Ordering Physician: Jose Pan D.O. Date of Service: 11/07/24 Procedure(s): US OB cervical length Accession Number(s): [id number] cc: SRI RAMÍREZ ; Jose Pan D.O. [place] [id number] Patient Name: FAHEEM BABB MRN: [facility]:[id number] date: 1995 Sex: F Assigned Patient Location: Current Patient Location: US Accession/Order Number: [id number] Exam Date: 11/07/2024 12:17 Report Date: 11/07/2024 [...] all 4 extremities were surveyed by the blind aide. 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 [...] Michael M.D. 11/07/2024 12:24 PM Dictation Location: [place] [address] Electronically authenticated by: [id number] Y Date: 11/07/2024 12:24 Dictated By: Ana Michael M.D. Signed By: 11/07/24 1226 DD/ 1224 TD/TT: Quality Assurance Practice Manager:TBHRadiology, Radiologist, MD - 11/07/2024 [place] [address] Ultrasound Report Signed Patient: FAHEEM BABB MR#: [id number] : 1995 Acct:[id number] Age/Sex: 29 / F ADM Date: 11/07/24 Loc: US Attending Dr: Jose Pan D.O. Ordering Physician: Jose Pan D.O. Date of Service: 11/07/24 Procedure(s): US OB cervical length Accession Number(s): [id number] cc: SRI RAMÍREZ ; Jose Pan D.O. The [place] [id number] Patient Name: FAHEEM BABB MRN: [facility]:[id number] date: 1995 Sex: F Assigned Patient Location: US Current Patient Location: US Accession/Order Number: [id number] Exam Date: 11/07/2024 12:17 Report Date: 11/07/2024 [...] all 4 extremities were surveyed by the blind aide. 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 [...] Michael M.D. 11/07/2024 12:24 PM Dictation Location: [place] [address] Electronically authenticated by: [id number] Y Date: 11/07/2024 12:24 Dictated By: Ana Michael M.D. Signed By: 11/07/24 1226 DD/ 1224 TD/TT: Quality Assurance Practice Manager: PABLITO MeyersUrinalysis macro (dipstick) panel (U)on 98-84-5801Ebdmkpjeh, UA NegativeNegative - 4(70) +++ mg/dLNOMS HealthcareBlood, UANegativeNegative - 50 Allen/mcLNOMS HealthcareClarity, UAClearNOMS HealthcareColor, UAYellowNOMS HealthcareGlucose, UANegativeNegative - 2000(110) ++++ mg/dLNOMS Healthcare Interpretation and review of laboratory resultsNormalNOMS HealthcareKetones, UA NegativeNegative - 160(16) ++++ mg/dLNOMS HealthcareLeukocytes, UANegative Negative - 500+++ Andrei/mcLNOMS HealthcareNitrite, UANegativeNegative - Positive NOMS HealthcarepH, UA65 - 9NOMS HealthcareProtein, UANegativeNegative - 2000(20) ++++ mg/dLNOIL HealthcareSpec Grav, UA1.0151 - 1.03NOIL HealthcareUrobilinogen, UA0.20.2 - 12 mg/dLNOSoutheast Missouri Community [facility] HealthcareAFP, SERUM, OPEN SPINA BIFIDA on 73-26-2474KYT MOM1.01.NOMSsm RehabAFP VALUE52.0 ng/mL.[facility] COMMENT:Comment.Cox NorthComment on above:Alejandra Santiago, Ph.D., [facility] Director References: Available Upon Request. Multiples Of Median Cutoffs For AFP Elevations Mascorro 2.5 Black 2.8 IDD 2.0 Twins 4.5 Abbreviation Definitions IDD - Insulin Dep Diabetes OSBR - Open Spina Bifida Risk For further inquiries contact [facility] at [phone]. This test was developed and its performance characteristics determined by [employer]. It has not been cleared or approved by the Food and Drug Administration. Performed at: [facility] [address] [place], [place] [address] Solutions Market Consultant: Halina Hill [facility], Phone: [phone] GEST. AGE ON COLLECTION DATE19.4. weeksNOCoxHealthGESTAT. AGE BASED ONLMP. [facility] NorthComment on above:Recalculations are not recommended when gestational dating by LMP and ultrasound are within 10 days. INSULIN DEP DIABETESNo.[facility] HealthcareINTERPRETATIONComment.[facility] Comment on above:Interpretation: Screen Negative This result [...] Customer Services to discuss available options. The [employer] recommends amniocentesis be offered to women age 35 and older. MATERNAL AGE AT EDD28.1. yrNOIL HealthcareMULTIPLE GESTATIONNo.[facility] OSBR RISK 1 [id number].NOMS HealthcareRACECaucasian.[facility] HospitalRESULTSReport. Cox NorthTEST RESULTS:Negative.NOMS PkekvqzlfhAQMLRN880. lbsNOMS HealthcarePREGNANCY N N LMP [id number] 1 16 N 1 Y 153 N N N N N White/ CLINISYNCNOIL HealthcareUrinalysis macro (dipstick) panel (U)on 10-10-2024 Bilirubin, UANegativeNegative - 4(70) +++ mg/dLNOMS HealthcareBlood, UANegative Negative - 50 Allen/mcLNOMS HealthcareClarity, UAClearNOMS HealthcareColor, UA YellowNOMS HealthcareGlucose, UANegativeNegative - 2000(110) ++++ mg/dLNOMS HealthcareInterpretation and review of laboratory resultsNormalNOIL Healthcare Ketones, UANegativeNegative - 160(16) ++++ mg/dLNOMS HealthcareLeukocytes, UA NegativeNegative - 500+++ Andrei/mcLNOMS HealthcareNitrite, UANegativeNegative - PositiveNOMS HealthcarepH, UA75 - 9NOMS HealthcareProtein, UANegativeNegative - 2000(20) ++++ mg/dLNOMS HealthcareSpec Grav, UA1.021 - 1.03NOMS Healthcare Urobilinogen, UA0.20.2 - 12 mg/dLNOIL HealthcareNOIL HealthcareRECURRENT VAGINITIS (HTRX)on 06-78-9561SUFWZRTCG RBVVXNC1GPZV HealthcareATOPOBIUM VAGINAE Not detectedNOMS HealthcareBVAB 2,3 (BACTERIAL VAGINOSIS ASSOCIATED BACTERIA 2, 3); MOBILUNCUS AGF3XGOO HealthcareBVAB 2,3 (BACTERIAL VAGINOSIS ASSOCIATED BACTERIA 2, 3); MOBILUNCUS SPPNot detectedNOMS HealthcareCANDIDA ALBICANS, PARAPSILOSIS, DDXYYCSZOS9DRCM HealthcareCANDIDA ALBICANS, PARAPSILOSIS, TROPICALISNot detectedNOMS HealthcareCANDIDA JVDQEJSC5FHKE HealthcareCANDIDA GLABRATANot detectedNOMS HealthcareCANDIDA RTJFHY6EXFP HealthcareCANDIDA KRUSEI Not detectedNOMS HealthcareCHLAMYDIA YRIXBSPMEOV3PFMN HealthcareCHLAMYDIA TRACHOMATISNot detectedNOMS HealthcareGARDNERELLA ADJOOSEEO5WYMF Healthcare GARDNERELLA VAGINALISNot detectedNOMS HealthcareMEGASPHAERA (TYPES 1, 2)0NOMS HealthcareMEGASPHAERA (TYPES 1, 2)Not detectedNOMS HealthcareMYCOPLASMA SQHIUXHKIT6CJZC HealthcareMYCOPLASMA GENITALIUMNot detectedNOMS Healthcare NEISSERIA RODJGABMXMG8XOUT HealthcareNEISSERIA GONORRHOEAENot detectedNOMS HealthcareTRICHOMONAS IOLKOQIBA1NSQK HealthcareTRICHOMONAS VAGINALISNot detected NOMS HealthcareNOMS HealthcareUrinalysis macro [...] mg/dLNOMS HealthcareNOMS HealthcareUrinalysis macro (dipstick) panel (U)on 19-47-9609Phealklha, UA NegativeNegative - 4(70) +++ mg/dLNOMS HealthcareBlood, UAPositiveNegative - 50 Allen/mcLNOMS HealthcareClarity, UAClearNOMS HealthcareColor, UAYellowNOMS HealthcareGlucose, UANegativeNegative - 2000(110) ++++ mg/dLNOMS Healthcare Interpretation and review of laboratory resultsAbnormalNOMS HealthcareKetones, UAPositiveNegative - 160(16) ++++ mg/dLNOMS HealthcareLeukocytes, UANegative Negative - 500+++ Andrei/mcLNOMS HealthcareNitrite, UANegativeNegative - Positive NOMS HealthcarepH, UA75 - 9NOMS HealthcareProtein, UANegativeNegative - 2000(20) ++++ mg/dLNOMS HealthcareSpec Grav, UA1.021 - 1.03NOIL HealthcareUrobilinogen, UA1.00.2 - 12 mg/dLNOIL HealthcareNOMS HealthcareBOX TESTon 09-86-4645EFZ TEST SENT OUTunityNOIL YykfvnsnqlWUT8yeamgHCOC PhmxtswhfyRNB99/12/25NOCoxHealth UNITY BOX CLINISYNCNOIL HealthcareHCG ( test) Ql (U)on 22-79-6404Vnlseuwlojshkh and review of laboratory resultsAbnormalT[facility]ELE [facility] HealthcarePreg Test, UrPositive NegativeNOSoutheast [facility] HealthcareUS OB TRANSVAGINALon 38-68-8770AN OB TRANSVAGINALEXAM: US OB TRANSVAGINAL HISTORY: Dating. [...] II, MD, PHD at 21-Aug-2024 08:21:12 PM [facility] TeleradiologyNormalNot AvailableComment on above:Order Comment: US OB TRANSVAGINAL No LMP recorded.Urinalysis macro (dipstick) panel (U)on 92-54-4585Zumnomrhn, UA NegativeNegative - 4(70) +++ mg/dLNOMS HealthcareBlood, UANegativeNegative - 50 Allen/mcLNOIL HealthcareClarity, UAClearNOMS HealthcareColor, UAYellowNOMS HealthcareGlucose, UANegativeNegative - 2000(110) ++++ mg/dLNOMS Healthcare Interpretation and review of laboratory resultsNormalNOMS HealthcareKetones, UA NegativeNegative - 160(16) ++++ mg/dLNOMS HealthcareLeukocytes, UANegative Negative - 500+++ Andrei/mcLNOIL HealthcareNitrite, UANegativeNegative - Positive NOMS HealthcarepH, UA75 - 9NOMS HealthcareProtein, UANegativeNegative - 2000(20) ++++ mg/dLNOMS HealthcareSpec Grav, UA1.011 - 1.03NOMS HealthcareUrobilinogen, UA0.20.2 - 12 mg/dLNOMS HealthcareNOMS HealthcareAmbulatory Visit Summaryon 55-90-2769Zpxpuiveoc Visit SummaryAmbulatory Visit Summary FAHEEM BABB :1995 [...] you for choosing us for your care. [facility]ianChildren[facility] Hospital Of ColumbusUrology Office/Clinic Noteon 48-56-0209Nqhacps Office/Clinic NoteUrology Office/Clinic Note Chief Complaint possible [...] Sx persisted so AO sent 7d Keflex. DIRECTOR OF REHABILITATION AND WELLNESS spoke with her about possible IC. We [...] E&M of Est. Patient Moderate 30-39 Min 42068 Urnls Dip Stick Auto w/o Microscopy POC 78548 Follow-up With When Contact Information Call for UTI symptoms. Call to schedule follow up after . Additional Instructions: Patient Education Kidney Stones, Dxpl-uy-Auoj Problem List/Past Medical History Ongoing Adjustment disorder [...] Protein Urine Dipstick: Negative (08/01/24 13:23:00) Specific [place] Urine Dipstick: <=1.005 (08/01/24 13:23:00) Urine Appearance Urine Dipstick: Clear (08/01/24 13:23:00) Urine Color Urine Dipstick: Yellow (08/01/24 13:23:00) Urobilinogen Urine Dipstick: Normal 0.2-1 EU/dl (08/01/24 13:23:00) pH Urine Dipstick (more content not included)...[facility] St[facility] Anne HospitalComment on above:Result Comment: Electronically Signed By: JONAH GOMEZ PA-C\.robbin\Date and Time Signed: 08/02/2515:14 EDTBI US BREAST LIMITED LEFT on 33-01-5888QD US BREAST LIMITED LEFTThis is a summary [...] 2 ELECTRONICALLY SIGNED BY: Jairo Hernández M.D.NormalNot AvailableBrownfield Regional Medical Center 60-30-4460VfvvgmqsdXcpbuurmf From: Anayeli Laureano To: EU - Administrative; Sent: 03/01/2024 11:42:31 EST Show up: 03/22/2024 11:42:00 EST Subject: Ambulatory Reminder Due Date/Time: 05/28/2024 11:42:00 EST Reminder/Recall Patient needs scheduled with SUR[facility] for a 3 month F/U, due back in May 2024 MAY 16 [facility] WITH AUTO DIFFon 03-28-3179PCDOYBHTP ABSOLUTE RNDO1AZKC HealthcareBasophils/100 WBC (Bld) 0.4 %0.2 - 2.0 %NOMS HealthcareEosinophils/100 WBC (Bld)2.3 %0.9 - 7.0 %NOMSsm RehabErythrocyte distribution width (RBC) [Ratio]11.9 %11.0 - 15.0 %NOMSsm RehabHematocrit (Bld) [Volume fraction]42 %36.0 - 48.0 %[facility] Hemoglobin (Bld) [Mass/Vol]14.4 g/dL12.0 - 16.0 g/dLNOIL HealthcareIMMATURE GRANULOCYTES ABS AUTO0.01NOIL HealthcareImmature granulocytes/100 WBC (Bld)0.2 % 0.0 - 0.5 %NOM HealthcareInterpretation and review of laboratory results AbnormalNOMS HealthcareLYMPHOCYTES ABSOLUTE VUWX7GLPY HealthcareLymphocytes/100 WBC (Bld)42.5 %20.5 - 60.0 %NOMSsm RehabMCH (RBC) [Entitic mass]30.6 pg26.7 - 34.0 pgNOProgress West HospitalHC (RBC) [Mass/Vol]34.3 g/dL29.9 - 35.2 g/dLNOCoxHealthMCV (RBC) [Entitic vol]89.2 fL81.0 - 99.0 fLNOMS HealthcareMONOCYTES ABSOLUTE AUTO0.5NOMS HealthcareMonocytes/100 WBC (Bld)11 %1.7 - 12.0 %NOMS HealthcareNEUTROPHILS ABSOLUTE AUTO2.1NOMS HealthcareNeutrophils/100 WBC (Bld) 43.6 %43.0 - 75.0 %NOMS HealthcarePlatelet mean volume (Bld) [Entitic vol]9.4 fL Low9.5 - 13.5 fLNOMS HealthcareTBH EO #0.1NOMS HealthcareTBH GSA614EUFL HealthcareTBH RBC4.71NOMS HealthcareTBH WBC4.7NOMS HealthcareCLINISYNCNOMS HealthcareC Urineon 69-98-5931Aptcxcec identified Cx Nom (U)Microbiology PROCEDURE: Urine Culture [...] Locations R1: This test was performed at: [facility], [address] [place] [address], [address] [place] [address], LroqbyOldszoMercy Health St. Anne HospitalComment on above:Performed By: #### [id number] #### [facility] [address] [place] [address]EV RENAL BIon 13-16-0747[place]zz[place] [address] Ultrasound Report Signed Patient: FAHEEM BABB MR#: [id number] : 1995 Acct:[id number] Age/Sex: 29 / F ADM Date: 03/21/24 Loc: US Attending Dr: Bonita Pinedo PICK REMOVER Ordering Physician: Bonita Pinedo NP Date of Service: 03/21/24 Procedure(s): US renal BI Accession Number(s): [id number] cc: SRI RAMÍREZ ; Bonita Pinedo PICK REMOVER [place] [id number] Patient Name: FAHEEM BABB MRN: [facility]:[id number] date: 1995 Sex: F Assigned Patient Location: Current Patient Location: Accession/Order Number: [id number] Exam Date: 03/21/2024 12:58 Report Date: 03/22/2024 [...] Jimenez M.D. Signed By: 03/22/2459 DD/ TD/TT: Quality Assurance Practice Manager:CHRISadiologmatthieu, Radiologist, - 03/22/2024 [place] [address] Ultrasound Report Signed Patient: FAHEEM BABB MR#: [id number] : 1995 Acct:[id number] Age/Sex: 29 / F ADM Date: 03/21/24 Loc: US Attending Dr: Bonita Pinedo NP Ordering Physician: Bonita Pinedo NP Date of Service: 03/21/24 Procedure(s): US renal BI Accession Number(s): [id number] cc: SRI RAMÍREZ ; Bonita Pinedo NP The [place] [phone] Patient Name: FAHEEM BABB MRN: [facility]:[id number] date: 1995 Sex: F Assigned Patient Location: US Current Patient Location: Accession/Order Number: [id number] Exam Date: 03/21/2024 12:58 Report Date: 03/22/2024 [...] M.D. Signed By: 03/22/2459 DD/ 6 TD/TT: Quality Assurance Practice Manager: PABLITO [facility] HospitalRadiology Study observation (narrative)[facility]US RENAL BI Ordered By: Radiologist Radiology on 32-30-3165RCLM [employer] Work Phone: xr ABDOMEN 1Von 89-72-1382[place] [id number] XRay Report Signed Patient: FAHEEM BABB MR#: [id number] : 1995 Acct:[id number] Age/Sex: 29 / F ADM Date: 03/21/24 Loc: US Attending Dr: Bonita Pinedo NP Ordering Physician: Bonita Pinedo NP Date of Service: 03/21/24 Procedure(s): XR abdomen 1V Accession Number(s): [id number] cc: SRI RAMÍREZ ; Bonita Pinedo NP [address] [id number] Patient Name: FAHEEM BABB MRN: [id number]:[id number] date: 1995 Sex: F Assigned Patient Location: US Current Patient Location: US Accession/Order Number: [id number] Exam Date: 03/21/2024 13:38 Report Date: 03/22/2024 [...] Signed By: 03/22/24 1151 DD/ 1148 TD/TT: Quality Assurance Practice Manager:CHRISadiologmatthieu, Radiologist, - 03/22/[address] [address] XRay Report Signed Patient: FAHEEM BABB MR#: [id number] : 1995 Acct:[id number] Age/Sex: 29 / F ADM Date: 03/21/24 Loc: US Attending Dr: Bonita Pinedo NP Ordering Physician: Bonita Pinedo NP Date of Service: 03/21/24 Procedure(s): XR abdomen 1V Accession Number(s): [id number] cc: SRI RAMÍREZ ; Bonita Pinedo NP The [address] [address] Patient Name: FAHEEM BABB MRN: [facility]:[id number] date: 1995 Sex: F Assigned Patient Location: US Current Patient Location: US Accession/Order Number: [id number] Exam Date: 03/21/2024 13:38 Report Date: 03/22/2024 [...] Signed By: 03/22/24 1151 DD/ 1148 TD/TT: Quality Assurance Practice Manager: PABLITO HealthcareRadiology Study observation (narrative)[facility] HealthcareXR ABDOMEN 1VOrdered By: Radiologist Radiology on 97-62-9106CPUICox North Work Phone: Urinalysis macro (dipstick) panel (U)on [...] UA0.20.2 - 12 mg/dLNOMS HealthcareNOMS HealthcareUS PELVISon 32-39-0014HdpPalmer[place] [address] Ultrasound Report Signed Patient: FAHEEM BABB MR#: [id number] : 1995 Acct:[id number] Age/Sex: 28 / F ADM Date: 02/03/24 Loc: NOMS Attending Dr: Jose Pan D.O. Ordering Physician: Jose Pan D.O. Date of Service: 02/03/24 Procedure(s): US pelvis Accession Number(s): [id number] cc: SRI RAMÍREZ ; Jose Pan D.O. [place] [address] Patient Name: FAHEEM BABB MRN: [id number] date: 1995 Sex: F Assigned Patient Location: [facility] Current Patient Location: LAB Accession/Order Number: [id number] Exam Date: 02/03/2024 10:36 Report Date: 02/03/2024 [...] Signed By: 02/03/24 1133 DD/ 1131 TD/TT: Quality Assurance Practice Manager:NANCYHRadiology, Radiologist, - 02/03/2024 [place] [address] Ultrasound Report Signed Patient: FAHEEM BABB MR#: [id number] : 1995 Acct:[id number] Age/Sex: 28 / F ADM Date: 02/03/24 Loc: NOMS Attending Dr: Jose Pan D.O. Ordering Physician: Jose Pan D.O. Date of Service: 02/03/24 Procedure(s): US pelvis Accession Number(s): [id number] cc: SRI RAMÍREZ ; Jose Pan D.O. The [place] [id number] Patient Name: FAHEEM BABB MRN: [id number] date: 1995 Sex: F Assigned Patient Location: [facility] Current Patient Location: LAB Accession/Order Number: [id number] Exam Date: 02/03/2024 10:36 Report Date: 02/03/2024 [...] Signed By: 02/03/24 1133 DD/ 1131 TD/TT: Quality Assurance Practice Manager: [facility] NorthRadiology Study observation (narrative)[facility] HealthcareUS PELVIS Ordered By: Radiologist Radiology on 49-14-9656RUWZ Healthcare Work Phone: IGP,APTIMA HPV,AGE GDLNon 94-93-5083TRN GDLN ACOG TESTINGNote.[facility] HealthcareComment on above:TESTS RESULT FLAG UNITS REF RANGE LAB Clinician Provided Cytology Information Source.............Cervix;Endocervix No. of containers..01 ThinPrep Vial Age Algo ACOG Dione... - 01 FLAG LEGEND: L-Low Normal,H-High Normal,LL-Alert Low,HH-Alert High <-Panic Low,>-Panic High,A-Abnormal,AA-Critical Abnormal Performed at: 01 =G [address] [place] [address] Cristiane Eduardo MD, IGP, RFX APTIMA HPV ASCUNote.NOMS HealthcareComment on above:TESTS RESULT FLAG UNITS REF RANGE LAB DIAGNOSIS: 02 NEGATIVE FOR INTRAEPITHELIAL LESION OR MALIGNANCY. Specimen adequacy: 02 Satisfactory for evaluation. Endocervical and/or squamous metaplastic cells (endocervical component) are present. Performed by: 02 Marily Sin Telephonic Nurse Case Manager ([facility]) . 02 Note: Note 03 The [...] High,A-Abnormal,AA-Critical Abnormal Performed at: 02 [facility] [place] [facility] [address] [place] [address] Mayur Coleman MD, 03 WB [facility] [address] [place] [address] Cristiane Eduardo MD, Performed at: =G - [facility] [place] [address] [place], [place] [id number] Solutions Market Consultant: Cristiane Eduardo MD, Phone: [phone] Performed at: [facility] - [facility] [address] [place], [place] [id number] Solutions Market Consultant: Mayur Coleman MD, Phone: [phone] BRUSH-SPATULA CERVIX ENDOCERVIX CLINISYNCNOMS HealthcareCytology Cervical or vaginal smear or scraping studyon 96-24-5412BNZA HealthcareNo Panel Informationon 31-05-2322UEHWEVJSSFIVWK EPIDERMIDIS, HAEMOLYTICUS, LUGDUNENSIS, SAPROPHYTICUS (URINA0.000NOMS Healthcare STAPHYLOCOCCUS EPIDERMIDIS, HAEMOLYTICUS, LUGDUNENSIS, SAPROPHYTICUS (URINANot detectedNOMS HealthcareURINARY TRACT INFECTION (HTRX)on 18-96-8541NIOAZSFNJPFZE BAUMANII0.000NOMS HealthcareACINETOBACTER BAUMANIINot detectedNOMS Healthcare REAL ALBICANS, [...] UrNegativeNOMS HealthcareNOMS HealthcareUrinalysis macro (dipstick) panel (U)on 54-73-3773Pwjkixaxf, UANegativeNegative - 4(70) +++ mg/dLNOMS HealthcareBlood, UAPositiveNegative [...] HealthcareUrobilinogen, UA1.00.2 - 12 mg/dLNOMS HealthcareNOMS HealthcareCult,Urineon 82-07-5021Ulrm,UrineSpecimen Description .URINE Unknown Culture NO SIGNIFICANT GROWTH Report Status FINAL 09/23/2023NoOhio State East HospitalComment on above:Performed By: #### URC #### [facility] Funding Options [address] [place] [address] Solutions Market Consultant: Moisés Carl MD [place] [phone] Solutions Market Consultant: CODEY Werner, ,Urineon 27-63-1773Wrlz HCG ( test) Ql (U)NegativeNormalNEGMercy Glendale Research HospitalComment on above:Result Comment: Specimens with hCG levels near the threshold of the test (25 mIU/mL) may give a negative or indeterminate result. In such cases, another test should be performed with a new specimen in 48-72 hours. If early is suspected clinically in this setting, correlation with quantitative serum b-hCG level is suggested.Performed By: #### AMBROSE CANOCG, UMICAO #### [place] [address] Solutions Market Consultant: JUAN C Werner w/Reflex Cultureon 61-69-4902Zoexqdosj, SemiQt,UrNegativeAbnormalNEGMerSHC Specialty HospitalComment on above: Performed By: #### JOHNXAMBROSECG, UMICAO #### [place] [address] Solutions Market Consultant: Brynn Werner, UrineLARGEAbnormalNEGMadison HealthComment on above:Performed By: #### UAX UHCG, UMICAO #### [place] [address] Solutions Market Consultant: MICKEY Wernerlarity (U)SLIGHTLY CLOUDYAbnormalCLEARMercy Glendale Research HospitalComment on above:Performed By: #### UAX, UHCG, UMICAO #### [place] [phone] Solutions Market Consultant: MICKEY Wernerolor (U)RedAbnormalYELMerSHC Specialty HospitalComment on above:Performed By: #### UAX, UHCG, UMICAO #### [place] [address] Solutions Market Consultant: Iman WernerINTERPRET WITH CAUTION DUE TO INTENSE COLOR OF URINE.NormalMadison HealthComment on above:Performed By: #### UAX, UHCG, UMICAO #### [place] [address] Solutions Market Consultant: Wan Morales MDGlucose Ql (U)NegativeNormalNEGMadison HealthComment on above:Performed By: #### UAX, UHCG, UMICAO #### [place] [address] Solutions Market Consultant: Wan Morales MDKetones Ql (U)NegativeNormalNEGMadison HealthComment on above:Performed By: #### UAX, UHCG, UMICAO #### [place] [address] Solutions Market Consultant: Wan Morales MDLeukocyte esterase Test strip Ql (U)MODERATE AbnormalNEGMadison HealthComment on above:Performed By: #### UAX, UHCG, UMICAO #### [place] [address] Solutions Market Consultant: Wan Morales MDNitrite,UrPositiveAbnormalNEGMadison HealthComment on above:Performed By: #### UAX, UHCG, UMICAO #### [place] [id number] Solutions Market Consultant: Wan Morales [facility] CENTER,Ur7.3Ttovyc5.0-8.0Madison HealthComment on above:Performed By: #### UAX, UHCG, UMICAO #### [place] [address] Solutions Market Consultant: SONNY Wernerrotein Ql (U)3+ mg/dLAbnormalNEGMadison HealthComment on above:Performed By: #### UAX, UHCG, UMICAO #### [place] [address] Solutions Market Consultant: LINH Wernerpec. [place],Ur1.494Atvnsv1.005-1.030Madison HealthComment on above:Performed By: #### UAX, UHCG, UMICAO #### [place] [address] Solutions Market Consultant: Wan Morales MDUrobilinogen,UrNormalNormal0.0-1.0Madison HealthComment on above:Performed By: #### JEROME, AMBROSECG, UMICAO #### [place] [address] Solutions Market Consultant: Wan Morales MDUrinalysis,Microon 44-45-3702ZvytblpxQVMPRTNO AbnormalNONEMercLoma Linda University Medical CenterComment on above:Performed By: #### UAX, UHCG, UMICAO #### [place] [address] Solutions Market Consultant: Wan Morales MDEpithelial cells LM Ql (Urine sed)5 TO 10Normal 0-5Madison HealthComment on above:Performed By: #### UAX, UHCG, UMICAO #### [place] [id number] Solutions Market Consultant: Wan Morales MDOther ObservationsCulture ordered based on defined criteria.AbnormalNREQMerSHC Specialty HospitalComment on above: Performed By: #### UAX, UHCG, UMICAO #### [facility] [address] [place] [id number] Solutions Market Consultant: Wan Morales MDUrine RBC'sTOO NUMEROUS TO COUNTNormal0-2[facility] Research HospitalComment on above:Performed By: #### UAX, UHCG, UMICAO #### [place] [address] Solutions Market Consultant: Wan Morales MDUrine WBC'sTOO NUMEROUS TO COUNTNormal0-5[facility] Research HospitalComment on above:Performed By: #### UAX, UHCG, UMICAO #### [facility] [address] [place] [address] Solutions Market Consultant: Wan Morales MDUS RENAL COMPLETEon [phone] RENAL COMPLETE EXAMINATION: RETROPERITONEAL ULTRASOUND OF THE [...] Signed by: Sri Galeas MD 06/20/21 Final resultNoMercy Health Kings Mills Hospital1. Nonobstructing left renal stones measuring up [...] the bladder. No significant post void residual. [facility] Sri Bryson MD - 06/20/2021 [...] up to 5 mm. 2. No hydronephrosis. [employer] Phone: us RENAL COMPLETEOrdered By: Sri Galeas on [phone] Live Phone: us RENAL COMPLETEon [phone] Study observation (narrative)[employer] Phone: xr ABDOMEN (KUB) (SINGLE AP VIEW)on [phone] ABDOMEN (KUB) (SINGLE AP VIEW)EXAMINATION: ONE SUPINE [...] Signed by: See Herrera 06/19/21 Final resultNormalMercy Midlothian HospitalNo definite evidence of renal or ureteral stones. [facility] CONSOLIDATEDEXAMINATION: ONE SUPINE XRAY VIEW(S) [...] collecting system. Osseous structures are normal. [facility] GLORIARorochrisWarrenic P - 06/19/2021 EXAMINATION: ONE SUPINE XRAY [...] definite evidence of renal or ureteral stones. [employer] Phone: radiology Study observation (narrative)[employer] Phone: XR ABDOMEN (KUB) (SINGLE AP VIEW)Ordered By: See Herrera on [phone] Live Phone: Cult,Urineon [phone],UrineSpecimen Description .VOIDED URINE Culture NO SIGNIFICANT GROWTH Report Status FINAL 06/14/2021NormSouthern Ohio Medical CenterComment on above: Performed By: #### URC #### [facility] HospitalFD[facility] [address] [place] [address] Solutions Market Consultant: Moisés Carl MD [facility] [address] [place] [address] Solutions Market Consultant: Filemon Gutiérrez MDUrinalysis w/ Microon 06-12-2021-----[facility] Community HospitalComment on above:Performed By: #### UAMIC #### [facility] [address] [place] [address] Solutions Market Consultant: Filemon Gutiérrez MDEpithelial cells LM Ql (Urine sed)2 TO 8Lidhok7-05 Flower HospitalComment on above:Performed By: #### UAMIC #### [facility] [address] [place], [place] [id number] Solutions Market Consultant: Brennan Kay RBC's0 TO 2Vtagky5-1ScdytKettering Health Washington Township Comment on above:Performed By: #### UAMIC #### [facility] [address] [place], [place] [id number] Solutions Market Consultant: Brennan Kay WBC's0 TO 4Xxyojj2-9UaooaFlower Hospital Comment on above:Performed By: #### UAMIC #### [facility] [address] [place], [place] [phone] Solutions Market Consultant: Filemon Gutiérrez MDBilirubin, SemiQt,UrNegativeNormalNEGFlower HospitalComment on above:Performed By: #### UAMIC #### [facility] [address] [place], [place] [id number] Solutions Market Consultant: Filemon Gutiérrez MDBlood, UrineNegativeNormalNEGFlower Hospital Comment on above:Performed By: #### UAMIC #### [facility] [address] [place], [place] [id number] Solutions Market Consultant: MICKEY Kaylarity (U)ClearNormalCLEARFlower Hospital Comment on above:Performed By: #### UAMIC #### [facility] [address] [place], [place] [id number] Solutions Market Consultant: MICKEY Kayolor (U)YellowNormalYUniversity Hospitals St. [facility] Comment on above:Performed By: #### UAMIC #### [address] [place] [address] Solutions Market Consultant: Filemon Gutiérrez MDGlucose Ql (U)NegativeNormalNEGMercy Stamford HospitalComment on above:Performed By: #### UAMIC #### [address] [place], [place] [id number] Solutions Market Consultant: Filemon Gutiérrez MDKetones Ql (U)NegativeNormalNEGMercy Midlothian HospitalComment on above:Performed By: #### UAMIC #### [address] [place], [facility]83 Solutions Market Consultant: Filemon Gutiérrez MDLeukocyte esterase Test strip Ql (U)NegativeNormal NEGMercy Stamford HospitalComment on above:Performed By: #### UAMIC #### [address] [place], [facility]83 Solutions Market Consultant: Filemon Gutiérrez MDNitrite,UrNegativeNormalNEGFlower Hospital Comment on above:Performed By: #### UAMIC #### [address] [place], [place] [address] Solutions Market Consultant: SONNY Kay,Ur7.5Vvkkzp7.0-9.0Flower HospitalComment on above:Performed By: #### UAMIC #### [address] [place], [place] [address] Solutions Market Consultant: SONNY Kayrotein Ql (U)NegativeNormalNEGMerMercy Health Lorain Hospital HospitalComment on above:Performed By: #### UAMIC #### [address] [place], [place] [address] Solutions Market Consultant: LINH Kaypec. [place],Ur1.978Cquxbl4.010-1.020Mercy Stamford HospitalComment on above:Performed By: #### UAMIC #### [facility] [address] [place] [address] [place] [address] Solutions Market Consultant: Filemon Gutiérrez MDUrobilinogen,UrNormalNormalNORMMerDanbury HospitalComment on above:Performed By: #### UAMIC #### [facility] [address] [place] [address] Solutions Market Consultant: Filemon Gutiérrez MDUrinalysis with Microscopicon 06-12-2021-[facility] HospitalBilirubin UrineNegativeNEGATIVEMercy HealthColor, UAYellowYellowMercy HealthEpithelial Cells UA2 TO 5Mercy HealthGlucose, UrNegativeNEGATIVEMercy HealthKetones Ql (U)NegativeNEGATIVEMercy HealthLeukocyte esterase Test strip Ql (U)NegativeNEGATIVEMercy HealthNitrite, UrineNegativeNEGATIVEMercy HealthpH, UA 7.0Mercy HealthProtein, UANegativeNEGATIVEMercy HealthRBC, UA0 TO 2[facility] Specific [place], UA1.010Mercy HealthTurbidity UAClearClearMercy HealthUrine Hgb NegativeNEGATIVEMercy HealthUrobilinogen, UrineNormalNormalMercy HealthWBC, UA0 TO 2Mercy HealthMercy HealthPAP ACOG PANEL 2: 21 to 29on 05-25-2021..NormalPromedica Toledo HospitalCommunson healthcare cadillac hospital on above:Performed By: #### [id number] #### [facility] [address] [place] [address] Dr. Jolene Cornejo Gdln ACOG Rdlwmhd21-25BycqmdYebWVUMedicine Harrison Community HospitalComment on above:Performed By: #### [id number] #### [facility] [address] [address] [address] J[address]ene StreetDIAGNOSIS:CommentNoTrinity Health System West Campus on above: Result Comment: NEGATIVE FOR INTRAEPITHELIAL LESION OR MALIGNANCY.Performed By: #### [id number] #### [facility] [address] [address] [address]ene StreetMethodology:CommentNoWVUMedicine Harrison Community HospitalCommunson healthcare cadillac hospital on above: Result Comment: This liquid based ThinPrep(R) pap test was screened with the use of an image guided system.Performed By: #### [id number] #### [place] [address] Dr. Jolene StreetNote:CommentAdena Fayette Medical Center on above:Result Comment: The Pap smear is a screening test designed to aid in the detection of premalignant and malignant conditions of the uterine cervix. It is not a diagnostic procedure and should not be used as the sole means of detecting cervical cancer. Both false-positive and false-negative reports do occur. .Performed By: #### [id number] #### [place] [address] Dr[address] Jolene StreetPerformed by:CommentAdena Fayette Medical Center on above: Result Comment: Grisel Negron, Telephonic Nurse Case Manager (ASCP)Performed By: #### [id number] #### [place] [address] Dr[address] Jolene StreetReflex Criteria:CommentAdena Fayette Medical Center on above:Result Comment: The HPV DNA reflex criteria were not met with this specimen result therefore, no HPV testing was performed. .Performed By: #### [id number] #### [place] [address] Dr[address] Jolene StreetSpecimen adequacy:CommentAdena Fayette Medical Center on above:Result Comment: Satisfactory for evaluation. Endocervical and/or squamous metaplastic cells (endocervical component) are present.Performed By: #### [id number] #### [facility] [address] [place] [address] [address] Vital Signs Date TimeVital SignValuePerforming ItuefodtbZbkivxyr97-85-9682 10:-040Body mass index (BMI) [Ratio]27.53 kg/e0Fetqf Maxim DO Work Phone: [facility] NorthTolhvuxiuv16-77-2739 10:040Body sbnyvd97.74 kgCorey Maxim DO Work Phone: [facility] NorthVkzhxkgutq34-22-8522 10:23-0400Diastolic blood qslkvicw21 mm[Hg]Jose Maxim DO Work Phone: [phone] [place], [place] [address]Bhvpmqwial92-94-3466 10:23-0400Systolic blood pzscmlra128 mm[Hg]Jose Maxim DO Work Phone: [phone] [place], [place] [address]Lgnqiwmaid23-51-7065 10:15-0400Body mass index (BMI) [Ratio]27 kg/f6Svaqs Maxim DO Work Phone: [phone] [place], [place] [address]Joikbzoyos45-89-6799 10:15-0400Body dtgzea68.2 kg Jose Maxim DO Work Phone: [phone] [place] [address]-14-2025 10:15-0400Diastolic blood nkikmsnf21 mm[Hg]Jose Maxim DO Work Phone: [phone] [place], [place] [address]Inudnkfvzr07-69-3874 10:15-0400Systolic blood lhyfsiep812 mm[Hg]Jose Maxim DO Work Phone: [phone] [place], [place] [address]Oufxbneifj24-79-9615 10:17-0400Body mass index (BMI) [Ratio]26.63 kg/z6XltxeketJake Gunter [employer]OVER Work Phone: [phone] [place], [place] [address]Ourdegvptg05-98-4752 10:17-0400Body thebho33.11 kgKrmikael Gunter [employer] Work Phone: [phone] [place], [place] [address]Ecmytzteup12-62-0134 10:17-0400Diastolic blood mvpclzaa83 mm[Hg]Jake Gunter [employer] Work Phone: [phone] [place], [place] [address]Rxowihxsfa16-72-5910 10:17-0400Systolic blood yprhbggi840 mm[Hg]Jake Jani [employer] Work Phone: [phone] [place] [address]-17-2025 15:40-0400Body mass index (BMI) [Ratio]26.31 kg/m2Daja CUELLAR Work Phone: [facility] NorthAlzsxossow92-58-5538 15:40-0400Body exsnta64.2 kg Daja CUELLAR Work Phone: [phone] [place] [address]-17-2025 15:40-0400Diastolic blood wucpuudj88 mm[Hg]Daja CUELLAR Work Phone: [phone] [place], [place] [address]Ymlhummynh14-34-9958 15:40-0400Systolic blood bwxydsjf574 mm[Hg]Daja CUELLAR Work Phone: [phone] [place], [place] [address]Hvlgvkkgag16-51-7987 14:09-0400Body mass index (BMI) [Ratio]25.22 kg/v2Jjmxt Maxim DO Work Phone: [phone] [place], [place] [address]Lcizehtgyt90-75-5067 14:09-0400Body ezwddr24.03 kgCorey Maxim DO Work Phone: [phone])[facility] [place], [place] [address]Nhuvzziqsf21-58-1504 14:09-0400Diastolic blood juneqifi83 mm[Hg]Jose Maxim DO Work Phone: [phone] [place], [place] [address]Xlvazpqzcr34-29-8436 14:09-0400Systolic blood sepbjryl911 mm[Hg]Jose Maxim DO Work Phone: [phone] [place], [place] [address]Nfkxtnnbja10-61-7678 14:11-0400Body mass index (BMI) [Ratio]24.59 kg/s0Yxoet Maxim DO Work Phone: 1(430)[facility] [place], [place] [address]Bmzssxiqod27-63-6378 14:11-0400Body qbroej64.22 kgCorey Maxim DO Work Phone: 1(554)[facility] [place], [place] [address]Nfthvesxjw21-64-5720 14:11-0400Diastolic blood czzmkbpi49 mm[Hg]Jose Maxim DO Work Phone: [phone])[facility] [place], [place] [address]Ngovboiwki68-28-4220 14:11-0400Systolic blood mhiiipgk488 mm[Hg]Jose Maxim DO Work Phone: [phone])[facility] [place], [place] [address]Nbxatolkrb75-11-6814 14:44-0400Body mass index (BMI) [Ratio]24 kg/w6Gvuwr Maxim DO Work Phone: 1(419)[facility] [place], [place] [address]Ibbuyfyszp74-43-4343 14:44-0400Body ydwmoi76.51 kgCorey Maixm DO Work Phone: [phone] [place], [place] [address]Cvdkiordcu11-57-1310 14:44-0400Diastolic blood fmhppdro39 mm[Hg]Jose Maxim DO Work Phone: [facility] NorthKmnjzfcvpq45-17-8799 14:44-0400Systolic blood mm[Hg]Jose Maxim DO Work Phone: [facility] NorthBfrduzwcbv85-67-0538 15:30-0400Body mass index (BMI) [Ratio]23.34 kg/m2Daja Ryan PA Work Phone: [phone] NorthKizpfbeqiq22-31-9002 15:30-0400Body kftryt72.59 kgDaja Ryan ALISA Work Phone: [facility] NorthPmphvvnfwa85-02-2918 15:30-0400Diastolic blood qkcxoarc26 mm[Hg]Daja Ryan ALISA Work Phone: [facility] NorthVixupmwhfn31-12-1301 15:30-0400Systolic blood tavyhtdp050 mm[Hg]Daja Ryan ALISA Work Phone: [facility] NorthUckucuiktc30-34-5586 14:04-0400Body mass index (BMI) [Ratio]22.99 kg/j1Ijnit Maxim DO Work Phone: [facility] NorthOnnrrgnawi72-70-3270 14:04-0400Body uenhzn33.59 kgCorey Maxim DO Work Phone: [facility] NorthYokeuqdltt41-31-3665 14:04-0400Diastolic blood fokqkuur88 mm[Hg]Jose Maxim DO Work Phone: [facility] NorthKmejlrnuul23-10-6471 14:04-0400Systolic blood ddbmlbru827 mm[Hg]Jose Maxim DO Work Phone: [facility] NorthPssqiapvre99-17-1551 13:39-0400Body mass index (BMI) [Ratio]22.87 kg/m2[facility]05-08-2025 13:39-0400Body .22 kgNoMercy hospital springfield05-08-2025 13:39-0400Diastolic blood bsfwwiuw51 mm[Hg]Noms [facility]05-08-2025 13:39-0400Systolic blood btvqsinq756 mm[Hg]Pablito SotoCox NorthHgwtenfoee18-79-0034 08:15-0400Body bffifr093.2 cmSri Ramírez MD Work Phone: [phone] [place], [place] [address]Exxedorqwe04-56-8181 08:15-0400Body mass index (BMI) [Ratio]23.05 kg/m2Sri Ramírez MD Work Phone: [phone] [place], [place] [address]Fizcsguueh53-90-8362 08:15-0400Body xlthix51.77 kgSri Ramírez MD Work Phone: [phone])[facility] [place] [address]-07-2025 08:15-0400Diastolic blood mm[Hg]Sri Ramírez MD Work Phone: 1(439)[facility] [place], [place] [address]Mgyvgyhgtx72-06-0677 08:15-0400Heart rate92 /min Sri Ramírez MD Work Phone: 1(299)[facility] [place], [place] [address]Bvaczkmfxh55-31-2736 08:15-0400Respiratory rate18 /minSri Ramírez MD Work Phone: 1(891)[facility] [place], [place] [address]Ixeivpnffe54-27-4707 08:15-8676PfQ5% (BldA) [Mass fraction]99 %Sri Ramírez MD Work Phone: [phone])[phone] [place], [place] [address]Sbomzgrmba24-56-6276 08:15-0400Systolic blood qmsmjluf674 mm[Hg]Sri Ramírez MD Work Phone: 1(306)990-[address] [place], [place] [address]Lnwvrtwinv41-94-5540 08:03-0500Body mass index (BMI) [Ratio]22.96 kg/v6DfnzurReggie Donovan [employer] Work Phone: 1(106)970-[address] [place], [place] [address]Zbwaxmkagg96-27-9033 08:03-0500Body lvnxupapeim38 [degF]Reggie Donovan [employer] Work Phone: 1(763)[facility] [place], [place] [address]Biomzixtte38-24-0028 08:03-0500Body iuaimj20.5 kg Reggie Donovan [employer] Work Phone: 1(286)[facility] [place], [place] [address]Wgckrqbmgy08-86-5545 08:03-0500Diastolic blood eukxtzih78 mm[Hg]Reggie Donovan [employer] Work Phone: 1(137)[facility] [place] [address]-28-2025 08:03-0500Heart rate96 /min Reggie Farfangabriella P[employer]OVER Work Phone: [facility] NorthRrxwnsblsa66-53-1759 08:03-7358TfX3% (BldA) [Mass fraction]98 %Reggie Donoavn P[employer]OVER Work Phone: [facility] NorthZnhgsilzuf19-66-8228 08:03-0500Systolic blood xyaupdjt798 mm[Hg]Reggie Adolphgabriella [employer]OVER Work Phone: [facility] NorthRqzncwneru04-31-4909 09:03-0500Body mass index (BMI) [Ratio]22.57 kg/m2Amy Connor PA Work Phone: [facility] NorthTsqvlrbgwf21-95-1507 09:03-0500Body ryatuv16.37 kgAmy Connor CUELLAR Work Phone: [facility] NorthCllekysdpg23-12-6138 09:03-0500Diastolic blood mm[Hg]Daja CUELLAR Work Phone: [facility] NorthBqwmikhisd53-51-9528 09:03-0500Systolic blood ffmadsnp368 mm[Hg]Daja Ryan PA Work Phone: [facility] NorthLbwmkjptjx80-89-2400 14:37-0500Body mass index (BMI) [Ratio]22.57 kg/l2Kyuvz Maxim DO Work Phone: [facility] NorthXlkksmdvci28-66-5653 14:37-0500Body nmvruv75.37 kgCorey Maxim DO Work Phone: [facility] NorthZnndaluuub27-51-5579 14:37-0500Diastolic blood rmdcmbpe72 mm[Hg]Jose Maxim DO Work Phone: [facility] NorthJnergtvzqx89-36-1004 14:37-0500Systolic blood azeeibvg626 mm[Hg]Jose Maxim DO Work Phone: [facility] NorthRehaxuundt11-15-4595 11:20-0500Body mass index (BMI) [Ratio]22.55 kg/f2Temgc Maxim DO Work Phone: [place] [address]Otdcgvbbdf85-51-5213 11:20-0500Body dedfmh53.32 kgCorey Maxim DO Work Phone: [place] [address]Rccxmeeucj70-29-5888 11:20-0500Diastolic blood msmlnywk58 mm[Hg]Jose Maxim DO Work Phone: [facility] NorthMefmlvjmqo85-64-4654 11:20-0500Systolic blood dwbojerp456 mm[Hg]Jose Maxim DO Work Phone: 1([phone] [place] [address]-19-2024 10:47-0500Blood Pressure LocationAurora Orzech [facility]11-19-2024 10:47-0500Diastolic blood zqacnuky27 mm[Hg]Bonita Orzech [facility]11-19-2024 10:47-0500Heart rate79 /minAurora Orzech [facility]11-19-2024 10:47-0500Respiratory rate19 /minAurora Orzech [facility]11-19-2024 10:47-0500Systolic blood edxnrljn529 mm[Hg]Bonita Orzech [facility]11-04-2024 11:11-0500Body mass index (BMI) [Ratio]22.4 kg/z6Wqgct Maxim DO Work Phone: [place] [address]Asjiwyqhyd89-51-5657 11:11-0500Body pnyccv55.86 kgCorey Maxim DO Work Phone: [place] [address]Elaartkwdp46-03-5655 11:11-0500Diastolic blood akebonun03 mm[Hg]Jose Maxim DO Work Phone: [place] [address]Kgidokidqe76-17-8604 11:11-0500Systolic blood eukqdxzl308 mm[Hg]Jose Maxim DO Work Phone: [facility] NorthXoocpxwpiq67-61-6480 14:13-0400Body mass index (BMI) [Ratio]22.08 kg/m2Daja Connor CUELLAR Work Phone: NOCoxHealthGmynvtctux51-54-0578 14:13-0400Body wwpaac74.96 kgDaja Connor CUELLAR Work Phone: [facility] NorthQquwbqrtbv73-32-0732 14:13-0400Diastolic blood flyffqcq13 mm[Hg]Daja Connor CUELLAR Work Phone: [facility] NorthRiwqnccecl32-65-0289 14:13-0400Systolic blood mltmagfs306 mm[Hg]Daja Umanajuve CUELLAR Work Phone: [facility] NorthEdcgnepynp28-79-3940 11:52-0400Body mass index (BMI) [Ratio]22.42 kg/k5Rkqug Maxim DO Work Phone: [phone] NorthCpookadqvs69-36-2390 11:52-0400Body qxkzru74.92 kgCorey Maxim DO Work Phone: [facility] NorthYqwprfefqn77-43-6893 11:52-0400Diastolic blood efqctnvz25 mm[Hg]Jose Maxim DO Work Phone: [facility] NorthNpdqejktbr63-21-5092 11:52-0400Systolic blood mm[Hg]Jose Maxim DO Work Phone: [facility] Healthcare Encounters Encounter DateEncounter TypeCare ProviderFacilityStart: 02-21-2025 End: 07-63-9487Qirhqx flowsheetCorey Maxim DO Work Phone: NOIL Candler OBGYNStart: 02-21-2025 End: 93-70-9773Irggvg flowsheetCorey Maxim DO Work Phone: NOIL Candler OBGYNStart: 02-21-2025 End: 08-63-0530iqhopzwblyPOIKS FAZIONot AvailableStart: 02-16-2025 End: 14-15-6662Ezvkvukac Result EncounterCorey Maxim DO Work Phone: noms External Department UnsolicitedStart: 02-16-2025 End: 67-72-9286Dkyuookya Result EncounterCorey Maxim DO Work Phone: noms External Department UnsolicitedStart: 02-15-2025 End: 61-86-8897Jedgzzzyk Result EncounterCorey Maxim DO Work Phone: NOTB External Department UnsolicitedStart: 02-15-2025 End: 38-77-0227Nczkdakhd Result EncounterCorey Maxim DO Work Phone: noms External Department UnsolicitedStart: 02-07-2025 End: 34-47-9443Hkckfx flowsheetCorey Maxim DO Work Phone: NOTS Candler OBGYNStart: 02-07-2025 End: 44-04-5596Ntumcq flowsheetCorey Maxim DO Work Phone: NOUO Vanesa OBGYNStart: 02-07-2025 End: 91-30-3353Idbglazj flow sheetCorey Maxim DO Work Phone: NOMS Vanesa OBGYNComment on above:Third trimester ([facility]); 33 weeks gestation of ([facility])Start: 02-07-2025 End: 15-47-2938omyeayngiuWUNJE FAZIONot AvailableStart: 02-02-2025 End: 13-62-1617Dywodagkj Result EncounterGeneric External Data ProviderNOMS External Department UnsolicitedStart: 02-02-2025 End: 72-62-9946Ccyhavlas Result EncounterGeneric External Data ProviderNOMS External Department UnsolicitedStart: 01-24-2025 End: 23-03-1600Xinoxnge flow sheetCorey Maxim DO Work Phone: NOOX Vanesa OBGYNComment on above:Encounter for ultrasound recheck of choroid plexus cyst, antepartum ([facility]); Third trimester ([facility]); 31 weeks gestation of ([facility]); size inconsistent with dates ([facility])Start: 01-24-2025 End: 86-42-7288axwwtzolsgJYHQD ANDRESMIKEONot AvailableStart: 01-09-2025 End: 42-54-5686Zmtyeq flowsSp Gunter NP Work Phone: NOMS Vanesa OBGYNStart: 01-09-2025 End: 10-06-7268Xyvyzi flowsheetJake Gunter [employer]OVER Work Phone: NOMS Vanesa OBGYNStart: 01-09-2025 End: 83-65-6396Qlpfilkf flow sheetJake Gunter NP Work Phone: NOMS Vanesa OBGYNComment on above:Third trimester ([facility]); 29 weeks gestation of ([facility]); Choroid plexus cystStart: 01-09-2025 End: 73-78-8945yfqrycdfulWAOWQTNZ JANINot AvailableStart: 12-28-2024 End: 52-04-8956rxcinxcznrPSX RAMEYNot AvailableStart: 12-28-2024 End: 06-45-2588Putmfbff flow Debby CUELLAR Work Phone: NOMS Candler OBGYNComment on above:Second trimester ([facility]); 27 weeks gestation of ([facility])Start: 12-28-2024 End: 08-81-5536Jnoybw Minnie CUELLAR Work Phone: NOMS Candler OBGYNStart: 12-28-2024 End: 80-66-1881Ytvfmp Minnie CUELLAR Work Phone: NOMS Vanesa OBGYNStart: 12-10-2024 End: 34-92-1950Nngqvuctz Result EncounterGeneric External Data ProviderNOMS External Department UnsolicitedStart: 12-10-2024 End: 18-00-3191Acpnhcbqn Result EncounterGeneric External Data ProviderNOMS External Department UnsolicitedStart: 12-05-2024 End: 46-31-6496Axniaalbg Result EncounterGeneric External Data ProviderNOMS External Department UnsolicitedStart: 12-05-2024 End: 61-39-3489Eeutvlyfr Result EncounterGeneric External Data ProviderNOMS External Department UnsolicitedStart: 12-05-2024 End: 98-02-7870Gbgbkgke flow sheetCorey Maxim DO Work Phone: [facility] OBGYNComment on above:Acne, unspecified acne type (Primary Dx); Second trimester ([facility]); 24 weeks gestation of ([facility]); Diabetes mellitus screening; Screening, , for anatomic survey ([facility])Start: 12-05-2024 End: 01-24-4455kjhbgsxbxjZFSPG FAZIONot AvailableStart: 11-07-2024 End: 40-91-9348Ddilglvax Result EncounterGeneric External Data ProviderNOMS External Department UnsolicitedStart: 11-07-2024 End: 20-19-9621Eszomloxs Result EncounterGeneric External Data ProviderNOMS External Department UnsolicitedStart: 11-07-2024 End: 89-79-7347Wjdtwpnk flow sheetCorey Maxim DO Work Phone: NOMS Alexis OBGYNComment on above:Screening, , for anatomic survey ([facility]) (Primary Dx); Second trimester ([facility]); 20 weeks gestation of ([facility])Start: 11-07-2024 End: 75-07-9867tpvnhvufkeSYNWR FAZIONot AvailableStart: 11-02-2024 End: 31-06-6941Prgqltfte Result EncounterCorey Maxim DO Work Phone: noMS External Department UnsolicitedStart: 11-02-2024 End: 65-13-2801Wpwjhzvos Result EncounterCorey Maxim DO Work Phone: noms External Department UnsolicitedStart: 10-10-2024 End: 56-16-5537Zmzwgepy flow sheetCorey Maxim DO Work Phone: NOMS BCP OBComment on above:Second trimester ([facility]); 16 weeks gestation of ([facility]); Screening, , for anatomic survey ([facility])Start: 10-10-2024 End: 08-88-7611kntwfijrlaKLTEY FAZIONot AvailableStart: 10-10-2024 End: 90-81-2761Vciyvv flowsheetCorey Maxim DO Work Phone: NOMS BCP OBStart: 10-10-2024 End: 91-26-6720Cgddzx flowsheetCorey Maxim DO Work Phone: NOMS BCP OBStart: 09-28-2024 End: 41-67-6692Xwtovs outpatient visit 15 minutesDaja CUELLAR Work Phone: NOMS [facility] OBComment on above:Second trimester ([facility]); 14 weeks gestation of ([facility]); Screen for STD (sexually transmitted disease)Start: 09-28-2024 End: 89-71-0750hdhmzsskagYSU Berenice AvailableStart: 09-28-2024 End: 16-58-8810Pfxsoh Minnie CUELLAR Work Phone: NOMS BCP OBStart: 09-28-2024 End: 78-16-7058Yjwbbw Minnie CUELLAR Work Phone: NOMS BCP OBStart: 09-28-2024 End: 90-18-4290Bnxvfcut Result EncounterDaja CUELLAR Work Phone: NOMS External Department UnsolicitedStart: 09-13-2024 End: 36-69-1815Wdtzpi flowsheetCorey Maxim DO Work Phone: NOMS BCP OBStart: 09-13-2024 End: 88-72-7873Sghztb flowsheetCorey Maxim DO Work Phone: NOMS BCP OBStart: 09-13-2024 End: 39-59-8519ounbtmtjwnZGTJJ FAZIONot AvailableStart: 09-13-2024 End: 68-23-6241Dqzqbcow flow sheetCorey Maxim DO Work Phone: noms BCP OBComment on above:First trimester ; 12 weeks gestation of ; Urinary tract infection in mother during , antepartumStart: 08-22-2024 End: 70-64-5296Glsiucdot Result EncounterCorey Maxim DO Work Phone: noms External Department UnsolicitedStart: 08-22-2024 End: 08-01-1496Mdtftlbtx Result EncounterCorey Maxim DO Work Phone: noms External Department UnsolicitedStart: 08-18-2024 End: 58-11-2871rziakwltrfYOI Berenice AvailableStart: 08-18-2024 End: 71-70-5516Irvljc outpatient visit 5 minutesNoms Bcp Ob Maxim NurseNOMS BCP OBComment on above:GA: 1m3aMwrco: 08-18-2024 End: 66-35-4396siycomydkuMYB CONNORNot AvailableStart: 08-12-2024 End: 01-49-9793Tdaojyuzn Result EncounterGeneric External Data ProviderNOMS External Department UnsolicitedStart: 08-12-2024 End: 81-24-9524Zilhgbcgq Result EncounterGeneric External Data ProviderNOMS External Department UnsolicitedStart: 08-12-2024 End: 77-19-7258Bnupcgwh Result EncounterDaja CUELLAR Work Phone: noms External Department UnsolicitedStart: 08-02-2024 ambulatoryAurora X OrzechFacility:EU [place]Start: 08-01-2024 End: 46-63-1791knaxfbuhqkRLQJXNLD E PERRYFacility:EU [place]vueStart: 07-20-2024 End: 24-30-4234wmpyobzmnrMCBB F BOWERNot AvailableStart: 07-18-2024 End: 00-64-4562Sgtexn Jesus Ramírez MD Work Phone: noms FNR FMStart: 07-18-2024 End: 54-16-2545Joihsg Jesus Ramírez MD Work Phone: NOMS FNR FMStart: 07-18-2024 End: 58-42-1016Ftlucv outpatient visit 15 minutesSri Ramírez MD Work Phone: NOMS FNR FMComment on above:Mass of lower outer quadrant of left breast (Primary Dx)Start: 07-18-2024 End: 65-67-4583ywejzvlepyXIPP F BOWERNot AvailableStart: 06-10-2024 End: 20-31-0392Wfmgyi flowsheetThrasos [employer] Work Phone: NOMS FNR FMStart: 06-10-2024 End: 82-82-7405Apwwqu flowsheetBannerLucidLogix Technologies [employer] Work Phone: NOMS FNR FMStart: 06-10-2024 End: 33-25-7761Fzpcfgtor encounterSri Ramírez MD Work Phone: NOMS FNR FMStart: 06-10-2024 End: 99-82-4145Ncuyzm outpatient visit 25 minutesBreencompass health rehabilitation hospital of [facility] [employer] Work Phone: NOMS FNR FMComment on above:Encounter for removal of sutures (Primary Dx); Cellulitis of finger of right handStart: 06-10-2024 End: 90-90-8786nmorkluoaeZNFXMH MAJORSNot AvailableStart: 05-23-2024 End: 97-58-5343Dwjjim flowsGermania CUELLAR Work Phone: NOMS BCP OBStart: 05-23-2024 End: 22-47-9247Hfhgvs flowsGermania CUELLAR Work Phone: NOMS BCP OBStart: 44-69-5931nvnfayxyuvVITJUKAX E PATRICIA Facility: [place]Start: 05-23-2024 End: 87-38-4782asmrdrtfliBBD RAMEYNot AvailableStart: 05-23-2024 End: 50-58-8440Ruyhlb outpatient visit 15 minutesDaja CUELLAR Work Phone: NOMS BCP OBComment on above:Vaginal discharge; Vaginal burningStart: 05-16-2024 End: 72-78-3208uhfongrwsoNSXVDKKF E PERRYFacility:EU [place]Start: 05-16-2024 End: 08-17-4572Xtrsklw encounter procedureJENNIFER E PATRICIA [facility] [place] start: 04-20-2024 End: 52-19-5277Ubsyvl Minnie CUELLAR Work Phone: noms BCP OBStart: 04-20-2024 End: 92-12-3210Byyeca Minnie CUELLAR Work Phone: noms BCP OBStart: 04-20-2024 End: 70-49-4561Zmnfuh follow up visit related to original pxCorey Maxim DO Work Phone: noms BCP OBComment on above:Postoperative examination Start: 04-20-2024 End: 55-69-7635sfobcbodviWBDXC FAZIONot AvailableStart: 04-01-2024 End: 63-40-3185Lllillyzp Result EncounterGeneric External Data ProviderNOMS External Department UnsolicitedStart: 04-01-2024 End: 12-62-1964Rqfbwdpzl Result EncounterGeneric External Data ProviderNOMS External Department UnsolicitedStart: 03-22-2024 End: 97-59-1904Rlriumsbh Result EncounterGeneric External Data ProviderNOMS External Department UnsolicitedStart: 03-22-2024 End: 42-07-9519Rnxzubocp Result EncounterGeneric External Data ProviderNOMS External Department UnsolicitedStart: 03-21-2024 End: 43-34-6108dzodozvbkbJyaxik J GaleaFacility:FTMCStart: 03-21-2024 End: 37-80-2204Hef Drop offAlyshayden Ellis [facility] Start: 03-21-2024 End: 49-26-4356bvsjcebnyyGzvywt X OrzechFacility:EU [place]vueStart: 03-21-2024 End: 07-28-2483Fnnyxpy encounter procedureAurora X Orzech [facility] start: 03-09-2024 End: 93-62-1410Wdjsqi flowsheetCorey Maxim DO Work Phone: noms BCP OBStart: 03-09-2024 End: 16-59-3412Qlzamk flowsheetCorey Maxim DO Work Phone: noms [facility] OBStart: 03-09-2024 End: 73-26-4080Hjfupz outpatient visit 15 minutesCorey Maxim DO Work Phone: noMS [facility] OBComment on above:Pre-op evaluation; Pelvic pain in female; Bacterial vaginosisStart: 03-09-2024 End: 12-57-9489Ecmbvnniuutqt examination doneCorey Maxim DO Work Phone: NOMS HealthcareStart: 03-09-2024 End: 43-40-9564znfcxyapfxKINYZ FAZIONot AvailableStart: 03-01-2024 End: 94-10-9011nrxgsvildkUxxpdu X OrzechFacility:EU Bellevtart: 03-01-2024 End: 05-47-0709Ejslsqk encounter procedureAurora X Orzech [facility] start: 02-15-2024 End: 96-47-4594Vpekkx flowsheetCorey Maxim DO Work Phone: noms BCP OBStart: 02-15-2024 End: 82-89-9578Ynaegp flowsheetCorey Maxim DO Work Phone: noms [facility] OBStart: 02-15-2024 End: 55-51-2792Pupnnz outpatient visit 15 minutesCorey Maxim DO Work Phone: NOMS [facility] OBComment on above:Bacterial vaginosis; Urinary tract infection without hematuria, site unspecified; Vaginal odor; Bacterial infection due to mycoplasmaStart: 02-03-2024 End: 44-57-7377Yvdsgpblr Result EncounterGeneric External Data ProviderNOMS External Department UnsolicitedStart: 02-03-2024 End: 21-47-4904Mqohyrwou Result EncounterGeneric External Data ProviderNOMS External Department UnsolicitedStart: 01-27-2024 End: 54-07-9343Uskfey flowsGermania CUELLAR Work Phone: noms [facility] OBStart: 01-27-2024 End: 26-81-6850Libmxh flowsheetDaja CUELLAR Work Phone: NOMS [facility] OBStart: 01-27-2024 End: 49-14-1301Smrbrfwlx Result EncounterGeneric External Data ProviderNOIL External Department UnsolicitedStart: 01-27-2024 End: 62-97-0228Fifwlqp encounter procedureDaja CUELLAR Work Phone: noms [facility] Work Phone: Start: 01-27-2024 End: 92-76-6214Wclzbmaw preventive med est patient 18-39 yrsDaja Connor CUELLAR Work Phone: noms [facility] OBComment on above:Well woman exam with routine gynecological examStart: 01-11-2024 End: 13-37-1994Tumsxt flowsheetCorey Maxim DO Work Phone: NOMS BCP OBStart: 01-11-2024 End: 31-62-3003Wufbrmqw Result EncounterCorey Maxim DO Work Phone: noms External Department UnsolicitedStart: 01-11-2024 End: 27-27-0221Jzyruhhf Result EncounterCorey Maxim DO Work Phone: noms External Department UnsolicitedStart: 01-11-2024 End: 76-08-1172Rbffoe outpatient visit 15 minutesCorey Maxim DO Work Phone: noms [facility] OBComment on above:Pelvic pain in female Start: 09-22-2023 End: 93-92-4735Cegxtcegw department patient visitSRI [facility] CenterStart: 05-03-2022 End: 48-64-1491ehoyypilokHK SRI Olicility:T1Mfwqt: 06-19-2021 End: 12-03-8015omsailzmckQDLUZIECorewell Health [facility] HospitalStart: 06-19-2021 End: 09-88-7626Coatzikuyb hospital visit by Steph Gardner [address] RadiologyComment on above:Ureteral stone with hydronephrosis Ureteral stone with hydronephrosis; Suprapubic pain; Dysuria; Urgency of urinationStart: 06-12-2021 End: 87-68-8484guhwwpahigEEKEJTOUniversity Hospitals Parma Medical Centertart: 06-12-2021 End: 46-36-2045Distnhanym hospital visit by Reji Ramírez MD Work Phone: mthz LaboratoryComment on above:Ureteral stone with hydronephrosis; Suprapubic pain; Dysuria; Urgency of urinationStart: 05-21-2021 End: 14-28-7984tvwxmqaskcXU JOSE FAZIOFacility:H1 Procedures DateProcedureProcedure DetailPerforming ClinicianStart: 58-24-3750VV OB BPP W NON-STRESSCorey Maxim DO Work Phone: Start: 82-22-4534YBM UA (CLEAN/CATCH) FITNESS TEACHER/MICRO IF IND.Jose Maxim DO Work Phone: Start: 49-45-0246Ypmqq dip stick/tablet rgnt non-auto w/o micrscpCorey Maxim DO Work Phone: Start: 37-62-7920PI OB GROWTHGeneric External Data ProviderStart: 81-55-8072Xnhwo dip stick/tablet rgnt non-auto w/o micrscpCorey Maxim DO Work Phone: Start: 02-51-6131Xmmel dip stick/tablet rgnt non-auto w/o micrscpKrmikael Gunter NP Work Phone: Start: 90-90-1980Dzbhg dip stick/tablet rgnt non-auto w/o micrscpAmy Connor CUELLAR Work Phone: Start: 58-13-6591KNJUNRV 1 HOURCorey Maxim DO Work Phone: Start: 19-87-4256FS for multiple gestation limitedGeneric External Data ProviderStart: 97-29-2791Encsr dip stick/tablet rgnt non-auto w/o micrscpCorey Maxim DO Work Phone: Start: 50-46-1826Pinsm dip stick/tablet rgnt non-auto w/o micrscpCorey Maxim DO Work Phone: Start: 98-84-2268RZ OB ANATOMYGeneric External Data ProviderStart: 70-98-5488ET OB CERVICAL LENGTHCorey Maxim DO Work Phone: Start: 67-32-8948HAY, SERUM, OPEN SPINA BIFIDAGeneric External Data ProviderStart: 92-31-4993Rddtt dip stick/tablet rgnt non-auto w/o micrscpCorey Maxim DO Work Phone: Start: 14-93-2450TZQPYMDNX VAGINITIS (HTRX)Daja CUELLAR Work Phone: Start: 26-73-2806Ettey dip stick/tablet rgnt non-auto w/o micrscpAmy Connor CUELLAR Work Phone: Start: 41-61-9724Fgxha dip stick/tablet rgnt non-auto w/o micrscpCorey Maxim DO Work Phone: Start: 62-69-1777GJB TESTGeneric External Data ProviderStart: 59-35-0159Dwpfv dip stick/tablet rgnt non-auto w/o micrscpCorey Maxim DO Work Phone: Start: 61-29-4736Aqoegqe bacterial quanttative colony count urineDaja Ryan ALISA Work Phone: Start: 11-92-3169MFWIU CULTURE - FRMCGeneric External Data ProviderStart: 01-12-2229QZM CBC WITH AUTO DIFFCorey Maxim DO Work Phone: Start: 96-27-1031MO ABDOMEN 1VGeneric External Data ProviderStart: 05-55-3870CD RENAL BIGeneric External Data ProviderStart: 86-38-8239Pwfjg dip stick/tablet rgnt non-auto w/o micrscpCorey Maxim DO Work Phone: Start: 06-56-9427TN PELVISGeneric External Data ProviderStart: 79-64-1849AQB,APTIMA HPV,AGE GDLNDaja Ryan ALISA Work Phone: Start: 19-71-5826Khxs cerv/vag auto thin layer prep mnl screenCorey Maxim DO Work Phone: Start: 28-83-5967UVNEXQY TRACT INFECTION (HTRX)Jose Maxim DO Work Phone: Start: 01-11-2024 End: 62-74-0432Emjwe dip stick/tablet rgnt non-auto w/o micrscpCorey Maxim DO Work Phone: Start: 86-49-5555Tcqqeeuwzg exam abdomen 1 viewBethany W Parsell MECHANICAL MAINTENANCE - DIRECTOR OF OPERATIONS SUPPORT Work Phone: Start: 06-38-0169Me retroperitoneal real time w/image completeBethany W Parsell MECHANICAL MAINTENANCE - DIRECTOR OF OPERATIONS SUPPORT Work Phone: Start: 49-84-1470Aaeii dip stick/tablet reagent auto microscopyBethany W Parsell MECHANICAL MAINTENANCE - DIRECTOR OF OPERATIONS SUPPORT Work Phone: Start: 78-27-2006NygqagfcvceBrdnxz Orzech Plan of Treatment DateCare ActivityDetailAuthorStart: 05-00-5004FMfC/Tdap/Td vaccine (8 - Td or Tdap)DTaP/Tdap/Td vaccine (8 - Td or Tdap)[facility] HospitalStart: 06-24-2030 DTaP/Tdap/Td Vaccines (8 - Td or Tdap)DTaP/Tdap/Td Vaccines (8 - Td or Tdap)NOMS HealthcareStart: 02-21-2025 End: 58-10-7824Phhszbj encounter procedureNOMS Vanesa OBGYNComment on above: ArrivedStart: 02-07-2025 End: 53-91-5403Ewnmtuv encounter procedureNOMS [place] OBGYNComment on above: ArrivedStart: 02-06-2025 End: 07-76-9594Ysyvqoz encounter procedureNOMS BCP OBStart: 01-24-2025 End: 49-89-8958CI for pregnancyNOMS HealthcareComment on above:Expected: 01/24/2025, Expires: 05/27/2025Start: 01-24-2025 End: 87-75-4048Zwvkxrg encounter yikmxzqtq34/14/2025 10:00 AM EDT Routine [facility]anesa [facility]BG[facility] [address] [place] [phone] Jose Pan DO [address] [place], [place] [id number] NOMS Vanesa OBGYNStart: 01-24-2025 End: 15-51-8347Pdzxcgrytxrc / ancillary services wszbkvjwoh70/14/2025 9:30 AM EDT Ancillary Procedure NOMGabriella [place] OBG[facility] [address] [facility] [phone] NOMS Vanesa OBGYNStart: 01-23-2025 End: 15-09-7228WS for pregnancyUS OB limited 1+ fetuses Imaging Routine Encounter for ultrasound recheck of choroid plexus cyst, antepartum ([facility]) Expected: 01/23/2025 (Approximate), Expires: 01/23/2026[facility] Work Phone: comment on above:Expected: 01/23/2025 (Approximate), Expires: 01/23/2026Start: 01-09-2025 End: 48-57-9148GR for pregnancyUS OB limited 1+ fetuses Imaging Routine Choroid plexus cyst Expected: 01/09/2025, Expires: 04/10/2025[facility] Work Phone: comment on above:Expected: 01/09/2025, Expires: 04/10/2025Start: 01-09-2025 End: 45-45-2951Ascecel encounter procedureNOMS [place] OBGYNComment on above: ArrivedStart: 12-28-2024 End: 90-09-1549Mmalkxw encounter kcvntshux69/17/2025 1:20 PM EDT Routine NOMGabriella [place] OBGYN [address] [place], [id number] Jose Pan DO [address] [place] [address] NOMS Vanesa OBGYNStart: 98-78-3494INURV- 19 Vaccine ( season)COVID-19 Vaccine ( season)NOMS HealthcareStart: 34-76-5888Aavmrsxnn vaccinationNOIL HealthcareStart: 12-08-2024 End: 25-07-9102SG for pregnancyUS OB 14+ weeks anatomy scan Imaging Routine Screening, , for anatomic survey ([facility]) Expected: 12/08/2024, Expires: 02/07/2025NO[facility] Healthcare Work Phone: comment on above:Expected: 12/08/2024, Expires: 02/07/2025Start: 12-05-2024 End: 34-32-5443ZTT panel - Blood by Automated countCBC Lab Routine Diabetes mellitus screening Expected: 12/05/2024 (Approximate), Expires: 12/05/2025[facility] Work Phone: comment on above:Expected: 12/05/2024 (Approximate), Expires: 12/05/2025Start: 12-05-2024 End: 96-64-3216Twkukcwoaja of glucose 1 hour after glucose challenge for glucose tolerance testGlucose tolerance, 1 hour Lab Routine Diabetes mellitus screening Expected: 12/05/2024 (Approximate), Expires: 12/05/2025NOIL HealthcareComment on above:Expected: 12/05/2024 (Approximate), Expires: 12/05/2025Start: 12-05-2024 End: 26-70-8737HL for pregnancyUS OB 14+ weeks anatomy scan Imaging Routine Screening, , for anatomic survey ([facility]) Expected: 12/05/2024, Expires: 03/07/2025[facility] Work Phone: comment on above:Expected: 12/05/2024, Expires: 03/07/2025Start: 12-05-2024 End: 78-27-0664Vgrejmzgzltp / ancillary services provpisylg33/25/2025 1:00 PM EDT Ancillary Procedure NOMS Vanesa ROBIN [address] [place] [address] [place] [address] GRXM Vanesa OBGYNStart: 11-07-2024 End: 49-67-4923Ynvxaqp encounter procedureNOMS BCP OBStart: 10-10-2024 End: 14-84-8364Jvdcawe encounter procedureNOMS BCP OBComment on above:Arrived Start: 10-10-2024 End: 03-76-5069Gpbyw fetoprotein, maternalAlpha fetoprotein, maternal Lab Routine Second trimester ([facility]) Expected: 10/10/2024 (Approximate), Expires: 12/10/2024NOIL HealthcareComment on above:Expected: 10/10/2024 (Approximate), Expires: 12/10/2024Start: 10-10-2024 End: 53-72-7591PW for pregnancyUS OB 14+ weeks anatomy scan Imaging Routine Screening, , for anatomic survey ([facility]) Expected: 10/10/2024, Expires: 01/10/2025[facility] Work Phone: comment on above:Expected: 10/10/2024, Expires: 01/10/2025Start: 09-28-2024 End: 48-27-8674Papkvlw encounter ctaomblfn01/18/2025 2:50 PM EDT Office Visit NOM[facility] OB [address] [place] [address] Daja Ryan PA [address] [place], [place] [phone] [facility]rivedINLAND [facility] OBComment on above:ArrivedStart: 09-14-2024 End: 45-79-4249Kqoekgk encounter lgwplgnqo58/04/2025 1:40 PM EDT Routine NOMS BCP OB [address] [place] [address] Jose Pan DO [address] [place], [place] [phone] NOMS BCP OBStart: 08-18-2024 End: 16-51-6954QRS/RhABO/Rh Lab Routine Missed menses , unspecified gestational age Expected: 08/18/2024 (Approximate), Expires: 08/18/2025NOIL HealthcareComment on above:Expected: 08/18/2024 (Approximate), Expires: 08/18/2025Start: 08-18-2024 End: 09-46-9460Xsiwz type and Indirect antibody screen panel - BloodType and screen Lab Routine Missed menses , unspecified gestational age Expected: 08/18/2024 (Approximate), Expires: 08/18/2025[facility] Work Phone: comment on above:Expected: 08/18/2024 (Approximate), Expires: 08/18/2025Start: 08-18-2024 End: 83-59-8685Rsyya of abuse panel - Urine by Screen methodRapid drug screen, urine Lab Routine , unspecified gestational age Encounter for supervision of normal first in first trimester Expected: 08/18/2024 (Approximate), Expires: 08/18/2025NOIL HealthcareComment on above:Expected: 08/18/2024 (Approximate), Expires: 08/18/2025Start: 08-18-2024 End: 54-64-2388kszmeaixwk10/08/2025 1:00 PM EDT Initial [facility] OB [address] [place] [address] OFMS BCP OBStart: 08-18-2024 End: 42-47-3750Kehlganrjjyf / ancillary services enjytzeror17/08/2025 12:30 PM EDT Ancillary Procedure [facility] OB [address] [place] [address] ZPYC BCP OBStart: 07-20-2024 End: 42-97-9259Mlruktnufthd / ancillary services hnkksdxotx26/09/2025 3:30 PM EDT Ancillary Procedure NOMS [facility] [address] [facility] [address] YQHS FNR ULTRASOUNDStart: 07-18-2024 End: 85-90-8954JR Breast - leftLeft breast US complete Imaging Routine Mass of lower outer quadrant of left breast Expected: 07/18/2024, Expires: 09/17/2025 [facility] Work Phone: Comment on above:Expected: 07/18/2024, Expires: 09/17/2025Start: 07-18-2024 End: 96-20-3878Lndglzq encounter unsknjgia29/07/2025 8:20 AM EDT Office Visit NOM[facility] FM [address] [facility] [address] [place] [phone] Sri Ramírez MD [address] [place] [address] ArrivedNOMS FNR FMComment on above:ArrivedStart: 06-10-2024 End: 98-80-5134Rqtokyk encounter usfiqiluj03/28/2025 8:00 AM EST Office Visit N[facility] FM [address] [place] [phone] Reggie Donovan NP [address] [facility] [place] [address] ArrivedLOUISEIL FNR FMComment on above:ArrivedStart: 04-20-2024 End: 13-40-9951Haedhol encounter ryrlsdvnw48/08/2025 8:50 AM EST Office Visit N[facility] OB [address] [place] [address] Daja Ryan PA [address] [place] [address] ArrivedNOMS BCP OBComment on above:ArrivedStart: 03-09-2024 End: 37-37-2966Udkkpfs encounter cvubwsxnw36/27/2024 11:20 AM EST Consult [facility] OB [address] [place] [address] Jose Pan DO [address] [place] [address] ArrivedNOMS BCP OBComment on above:ArrivedStart: 02-15-2024 End: 64-33-4071Lelfhcv encounter procedureNOMS BCP OBComment on above:Arrived Start: 02-03-2024 End: 93-26-1963Vtbstacwujly / ancillary services szcfjivqnm30/23/2024 10:30 AM EDT Ancillary Procedure [facility] OB [address] [place] [phone] NOMS BCP OBStart: 01-27-2024 End: 05-05-2263Ndsgkpx encounter procedureNOMS BCP OBComment on above:Arrived Start: 01-20-2024 End: 38-48-0304Zpfeqlqorqtk / ancillary services ozybymogjm13/09/2024 8:30 AM EDT Ancillary Procedure [facility] OB [address] [place] [address] NOMS BCP OBStart: 01-11-2024 End: 06-62-8100GJSMAKOP(R) ADVANCED VAGINITIS PLUS, TMASURESWAB(R) ADVANCED VAGINITIS PLUS, TMA Pathology and Cytology Routine Pelvic pain in female Expect ed: 01/11/2024 (Approximate), Expires: 01/10/2025[facility] Work Phone: comment on above:Expected: 01/11/2024 (Approximate), Expires: 01/10/2025Start: 01-11-2024 End: 57-09-9844LT for pregnancyUS PELVIS-TRANSVAG IF INDICATED Imaging Routine Pelvic pain in female Expected: 01/11/2024 (Approximate), Expires: 01/10/2025 [facility] HealthcareComment on above:Expected: 01/11/2024 (Approximate), Expires: 01/10/2025Start: 20-62-4754Fnmymxjfn vaccinationInfluenza Vaccine (#1)[facility]: [facility] End: 80-23-6330Gtwlpeh encounter pkxkxmguz78/17/2022 Office Visit Urology Jason Bradley, MECHANICAL MAINTENANCE - DIRECTOR OF OPERATIONS SUPPORT [address] [place], [id number] [facility]Start: 06-19-2021 End: 80-62-2314Schnmry encounter grcpetwrt23/09/2022 [facility]: 15-75-7121UMDAW-19 Vaccine (3 - Booster for Pfizer series)COVID-19 Vaccine (3 - Booster for Pfizer series)[facility]: 44-79-2239Wlgdiekmb vaccinationFlu vaccine (#1)[facility] 2018 Screening for malignant neoplasm of cervixPap smearAdena [facility] HealthStart: 2013 Screening for Chlamydia trachomatisChlamydia screenAdena [facility] HealthStart: 02-11-2012 HIV screeningHIV screenAdena [facility] HealthStart: 88-87-4563Bcikeyu of varicella vaccinationVaricella Vaccines (1 of 2 - 13+ 2-dose series)[facility] HealthcareStart: 43-74-8894Ocxfjdxtlx ScreenDepression ScreenAdena [facility] HealthStart: 2003 Pneumococcal 0-64 years Vaccine (1 of 2 - PPSV23)Pneumococcal 0-64 years Vaccine (1 of 2 - PPSV23)[facility]: 98-73-3055Hoxyxjhxs vaccine (1 of 2 - 2- dose childhood series)Varicella vaccine (1 of 2 - 2-dose childhood series)[facility]: 13-03-4820Lrdqxwlcx C screeningHepatitis C screenMercy Health Bacteria identified in Urine by CultureUrine culture Microbiology Routine Pelvic pain in female Ordered: 01/11/2024[facility] HealthcareComment on above:Ordered: 4Bacteria identified in Urine by CultureUrine culture Microbiology Routine 08/12/2024 8:15 PM [facility] Work Phone: bacteria identified in Urine by CultureUrine culture Microbiology Routine Missed menses Ordered: 08/18/2024[facility] HealthcareComment on above:Ordered: 5CBC W Auto Differential panel - BloodCBC and differential Lab Routine Missed menses , unspecified gestational age Ordered: 08/18/2024[facility] HealthcareComment on above:Ordered: 5CHLAMYDIA TRACHOMATIS (GENITO/STI)CHLAMYDIA TRACHOMATIS (GENITO/STI) Lab Routine Vaginal odor Ordered: 02/15/2024[facility] HealthcareComment on above:Ordered: 02/15/2024 CHLAMYDIA TRACHOMATIS (GENITO/STI)CHLAMYDIA TRACHOMATIS (GENITO/STI) Lab Routine Pelvic pain in female Ordered: 01/11/2024[facility] HealthcareComment on above: Ordered: 4CHLAMYDIA TRACHOMATIS (GENITO/STI)CHLAMYDIA TRACHOMATIS (GENITO/STI) Lab Routine Vaginal discharge Vaginal burning Ordered: 05/23/[address] [facility] HealthcareComment on above:Ordered: 5CHLAMYDIA TRACHOMATIS (GENITO/STI)CHLAMYDIA TRACHOMATIS (GENITO/STI) Lab Routine Screen for STD (sexually transmitted disease) Ordered: 09/28/2024[facility] HealthcareComment on above:Ordered: 09/28/2024 End: [id number], [facility] Work Phone: comment on above:1 Occurrences starting 06/12/2021 until 2Cytology Cervical or vaginal smear or scraping studyPap Smear Pathology and Cytology Routine Well woman exam with routine gynecological exam Ordered: 01/27/2024[facility] Healthcare Work Phone: Comment on above:Ordered: 01/27/2024Hemoglobin A1c/Hemoglobin.total in BloodHemoglobin A1c Lab Routine Missed menses , unspecified gestational age Ordered: 08/18/2024[facility] HealthcareComment on above: Ordered: 08/18/2024Hepatitis B virus surface Ag [Presence] in Serum or Plasma by ImmunoassayHepatitis B surface antigen Lab Routine Missed menses , unspecified gestational age Ordered: 08/18/2024[facility] HealthcareComment on above: Ordered: 08/18/2024Hepatitis C virus Ab [Presence] in Serum or Plasma by ImmunoassayHepatitis C antibody Lab Routine Missed menses , unspecified gestational age Ordered: 08/18/2024[facility] HealthcareComment on above:Ordered: 08/18/2024HIV-1/HIV-2 antigen/antibody combination immunoassayHIV-1 and HIV-2 antibodies Lab Routine Missed menses , unspecified gestational age Ordered: 08/18/2024[facility] HealthcareComment on above:Ordered: 08/18/2024Neisseria gonorrhoeae DNA [Presence] in Unspecified specimen by REKHA with probe detection Neisseria gonorrhea DNA probe, direct Lab Routine Vaginal odor Ordered: 02/15/2024[facility] HealthcareComment on above:Ordered: 02/15/2024Neisseria gonorrhoeae DNA [Presence] in Unspecified specimen by REKHA with probe detection Neisseria gonorrhea DNA probe, direct Lab Routine Pelvic pain in female Ordered: 01/11/2024[facility] HealthcareComment on above:Ordered: 01/11/2024Neisseria gonorrhoeae DNA [Presence] in Unspecified specimen by REKHA with probe detection Neisseria gonorrhea DNA probe, direct Lab Routine Vaginal discharge Vaginal burning Ordered: 05/23/2024[facility] HealthcareComment on above:Ordered: 05/23/2024 Neisseria gonorrhoeae DNA [Presence] in Unspecified specimen by REKHA with probe detectionNeisseria gonorrhea DNA probe, direct Lab Routine Screen for STD (sexually transmitted disease) Ordered: 09/28/2024[facility] HealthcareComment on above:Ordered: 09/28/2024Reagin Ab [Presence] in Serum by RPRRPR Lab Routine Missed menses , unspecified gestational age Ordered: 08/18/2024[facility] HealthcareComment on above:Ordered: 08/18/2024Rubella antibody, IgGRubella antibody, IgG Lab Routine Missed menses , unspecified gestational age Ordered: 08/18/2024[facility]:Ordered: 08/18/2024 SURESWAB(R) ADVANCED VAGINITIS PLUS, TMASURESWAB(R) ADVANCED VAGINITIS PLUS, TMA Pathology and Cytology Routine Bacterial vaginosis Vaginalodor Ordered: 02/15/2024[facility] [employer] Work Phone: comment on above:Ordered: 02/15/2024SURESWAB(R) ADVANCED VAGINITIS PLUS, TMASURESWAB(R) ADVANCED VAGINITIS PLUS, TMA Pathology and Cytology Routine Vaginal discharge Vaginal burning Ordered: 05/23/2024[facility] Work Phone: comlaqd on above:Ordered: 05/23/2024SURESWAB(R) ADVANCED VAGINITIS PLUS, TMASURESWAB(R) ADVANCED VAGINITIS PLUS, TMA Pathology and Cytology Routine Screen for STD (sexually transmitted disease) Ordered: 09/28/2024[facility] Work Phone: comgzbp on above:Ordered: 09/28/2024[facility] [place] [facility] [place] Lab Routine 08/12/2024 8:15 PM [facility] Immunizations Immunization DateImmunizationNotesCare MldwfuzfTbtincxy70-91-6081tnmvwhsyiy, tetanus toxoids and pertussis vaccineCorey Maxim DO Work Phone: [phone] [place], [place] [address]Ybymlxgzzr53-73-4022wwlre papilloma virus vaccine, quadrivalentCorey Maxim DO Work Phone: [phone] NorthDzuwtbpgzd74-37-6749iiffd papilloma virus vaccine, quadrivalentCorey Maxim DO Work Phone: [phone] [place], [place] [address]Pkabudtzly42-62-1517srasd papilloma virus vaccine, quadrivalentCorey Maxim DO Work Phone: [phone] [place], [place] [address]Wdedqzxiae60-53-7681txliurt toxoid, reduced diphtheria toxoid, and acellular pertussis vaccine, adsorbedCorey Maxim DO Work Phone: [phone] [place], [place] [address]Assjtzxprb37-15-2053lpiowaahdb, tetanus toxoids and acellular pertussis vaccine, unspecified formulationCorey Maxim DO Work Phone: [phone] [place] [address] Work Phone: [phone], mumps and rubella virus vaccine Jose Maxim DO Work Phone: [phone] [place], [place] [address]Miwaqbgwzm20-24-6972bqvnjhqinb vaccine, inactivatedCorey Maxim DO Work Phone: [phone] [place], [place] [address]Vxyzzaynam60-08-9040sisvxulatt, tetanus toxoids and acellular pertussis vaccine, unspecified formulationCorey Maxim DO Work Phone: [phone] [place], [place] [address]Dxzsunrttz42-96-9762hsdwvqhcxog influenzae type b vaccine, PRP-T conjugateCorey Maxim DO Work Phone: [phone] [place], [place] [address]Utjohgazjk06-31-7547vnrsvys, mumps and rubella virus vaccineCorey Maxim DO Work Phone: [phone] [place], [place] [address]Tuzamigwge46-01-5343rilukbizqc vaccine, inactivatedCorey Maxim DO Work Phone: [phone] [place], [place] [address]Ichxwxadfm07-56-5441ddspzivcaz, tetanus toxoids and acellular pertussis vaccine, unspecified formulationCorey Maxim DO Work Phone: [phone] [place], [place] [address]Tavsimejqd34-94-4675giarwqdkjni influenzae type b conjugate and Hepatitis B vaccineCorey Maxim DO Work Phone: [phone] [place], [place] [address]Qfmmeoftpe46-97-1640jvqfsecynz, tetanus toxoids and acellular pertussis vaccine, unspecified formulationCorey Maxim DO Work Phone: [phone] [place], [place] [address]Nioklxsyer37-02-4988ipsxyrklels influenzae type b vaccine, conjugate unspecified formulationCorey Maxim DO Work Phone: [phone] [place], [place] [address]Vjtvsmjpoc53-47-2298uwflfpfjns vaccine, inactivatedCorey Maxim DO Work Phone: [phone] [place], [place] [address]Dsvycuhbji98-41-8506rspyqvnpmq, tetanus toxoids and acellular pertussis vaccine, unspecified formulationCorey Maxim DO Work Phone: [phone] [place], [place] [address]Jipvccuzes52-98-4734soqxksswweq influenzae type b vaccine, conjugate unspecified formulationCorey Maxim DO Work Phone: [facility] NorthRzdrhumlai94-78-3987qduejuqox B vaccine, pediatric or pediatric/adolescent dosageCorey Maxim DO Work Phone: [facility] NorthNwwqonfbvy45-30-5327icsabxfkbs vaccine, inactivatedCorey Maxim DO Work Phone: [facility] NorthXgsghmlryz45-83-3054luldjxmlf B vaccine, pediatric or pediatric/adolescent dosageCorey Maxim DO Work Phone: [facility] Payers DatePayer CategoryPayerPolicy [id number] [facility] Member Subscriber Plan / Payer (Effective 2023-Present) Name: Faheem Babb Relation to Subscriber: Spouse Name: MIHAI BABB Date of : 1993 Address: [address] [place] [address] Payer ID: Not on file Type: Not on file Address: [address] [place] [phone] [id number] BCBS [id number] 2023-Present [phone] [address] [place] [address] [id number] 2021MedicaidBUCKEYEMedicaidBU[place]KEYE [place] MEDICAID [place] [id number] 2020-Present [address] [place] [id number] Medicaid (Managed Care)[id number] [id number] 2.16.840.1.383433.[id number] 2.16.840.1.772831.3.57[id number] 2.16.840.1.955422.3.57[id number] 2.16.840.1.673178.3.579.2.09224-49-8209Szqesmh1665849 2.16.840.1.157997.3.579.2.62557-19-7170Qtxrxmh8641571 2.16.840.1.551512.3.579.2.6[id number] 2.16.840.1.724711.3.57[id number] 2.16.840.1.818205.3.579.2.[id number] 2.16.840.1.027943.3.579.2.00517-07-8324Kdliqrs88178165 2.16.840.1.639419.3.579.2.24264-55-9462Eitdjrp73779112 2.16.840.1.849079.3.579.2.44919-22-7920Fuojqax17803668 2.16.840.1.128531.3.579.2.06548-77-6759Tdjuqjx44385300 2.16.840.1.215258.3.579.2.61745-35-7931Frdshmu89408633 2.16.840.1.526874.3.579.2.00041-23-4236Kiggrhg93176467 2.16.840.1.046551.3.579.2.211127-88-8887Kwjequt23414466 2.16.840.1.778730.3.579.2.952858-81-0034Ctwnjmb31146564 2.16.840.1.069200.3.579.2.999628-62-2992Upvvpxm97709753 2.16840.1.624483.3.579.2.692338-78-9768Mnvuyed55611110 2.160.1.628124.3.579.2.458596-05-5417Pfudxbj89548190 2.840.1.266379.3.579.2.526906-24-1220Jxantcr51772436 2.840.1.577466.3.579.2.647745-88-2225Ndchinn75641999 2.16840.1.769964.3.579.2.159792-11-6964Nsjdpiv50205832 2.840.1.521091.3.579.2.464845-00-8834Glvyyoy02995687 2.16840.1.362921.3.579.2.693112-89-7227Phhdswp22116925 2.840.1.441551.3.579.2.008767-76-5183Oarhwfb2609496 2.16840.1.182134.3.579.2.505111-64-8087Flspaxy1327789 2.840.1.614206.3.579.2.775636-82-1304Ulgpdty2506229 2.16840.1.332518.3.579.2.534620-49-2762Ktuwigf8200110 2.16.840.1.089329.3.579.2.429254-28-9588Ahdegbb5789466 2.16.840.1.975900.3.579.2.634798-95-0111Mgfqlyf2427144 2.16.840.1.424254.3.579.2.537684-23-6559Qxvrbqu7685785 2.16.840.1.726833.3.579.2.562426-74-9566Uecwukl6837635 2.16.840.1.776141.3.579.2.631349-06-6449UxqbtucQNV744472893 1.2.840.989949.1.13.239.2.7.3.630718.69010-69-9166Ljlbzhv227868116667 1.2.840.174031.1.13.239.2.7.3.837827.81073-09-8330Kfodpwu5647449172064 Social History DateTypeDetailFacilityStart: 06-12-2021 End: 92-01-1154Kloeqrc smoking status NHISEx-smokerAvita Health System Bucyrus HospitalHistory of tobacco useCigarette SmokerAdena [facility] MyCadbox Phone: start: 06-12-2021 End: 28-08-7726Imwehzrumb smoked current (pack per day) - Reported0.25[facility] HealthcareStart: 06-12-2021 End: 32-74-6909Ecrespo use and exposureSmokeless tobacco non-userBlanchard Valley Health System Blanchard Valley HospitalTactile Phone: start: 83-56-6538Ykelhfd intakeCurrent non-drinker of alcohol (finding)[facility] [employer] Phone: start: 47-05-2400Gbe Assigned At BirthNot on Community Medical CenterTactile Phone: History of tobacco useCurrent smokerC[facility] Start: 01-11-2024 End: 92-90-1930Bxkeqeaos beverage intakeLifetime non-drinker (finding)[facility] HealthcareStart: 09-24-2023 End: 90-54-9016H9384 Health LiteracyT[facility]ELE VALLEY [facility]OSPITAL HealthcareStart: 10-75-5747Kfd often do you need to have someone help you when you read instructions, pamphlets, or other written material from your doctor or pharmacy [SILS]NeverNOMS HealthcareDo you belong to any clubs or organizations such as baptism groups, unions, fraternal or athletic groups, or school groups?NoNOMS HealthcareHow often to you have a drink containing alcohol?NeverNOMS HealthcareDo you feel stress - tense, restless, nervous, or anxious, or unable to sleep at night because yourmind is troubled all the time - these days [OSQ]Rather muchNOIL Healthcare(I/We) worried whether (my/our) food would run out before (I/we) got money to buy more.Never trueNOIL HealthcareStart: 06-58-5610Xhgjoza Commentcaffeine: 1-2 cups coffee or energy drink occasionallyNOIL HealthcareStart: 37-88-2223XjowxvaqmHWIS Healthcare Functional Status QtebCycufzjlepZennibWenvhuhr86-46-1072Uhtzfzm Health Questionnaire 2 item (PHQ- 2) [Reported][facility]ox NorthMgpcuuxpyy90-32-2082Rcqeiavyci StatusN/AExecutive [facility]rology of [facility] Clinical Notes 01-11-2024 to 02-07-2025 Note Date & UlxxFnjuVaoncilh99-25-6881 History of Present illness Narrative* Ana Mcintosh LPN - 02/07/2025 10:20 AM EDT Reason for [...] affective disorder, currently depressed, moderate ([facility]) 09/06/2022 Complication of intrauterine device (IUD) 09/06/2022 Inattention 09/06/2022 Irregular menses 09/06/2022 Irritable bowel syndrome with diarrhea 09/06/2022 Menstrual cramp 09/06/2022 Pain in pelvis 09/06/2022 Generalized anxiety disorder 09/06/2022 Post-traumatic stress disorder 09/06/2022 Slow transit constipation 09/06/2022 Anxiety during ([facility]) 03/26/2020 Depression affecting ([facility]) 03/26/2020 History of chlamydia 03/26/2020 Bacterial infection due to mycoplasma 02/15/2024 Vaginal odor 02/15/2024 Urinary tract infection without hematuria 02/15/2024 Bacterial vaginosis 02/15/2024 Bladder pain 07/18/2024 Calculus of kidney 07/25/2013 Gross hematuria 07/18/2024 Resolved Ambulatory Problems Diagnosis Date Noted No Resolved Ambulatory Problems Past Medical History: Diagnosis Date ADHD (attention deficit hyperactivity disorder) Bipolar disorder (manic depression) ([facility]) BMI 24.0-24.9, adult Chicken pox 2007 Headache IBS (irritable bowel syndrome) Intrauterine device surveillance Pelvic pain Urinary tract infection HISTORY PAST MEDICAL HISTORY SOCIAL HISTORY Past Medical History: Diagnosis Date ADHD (attention deficit hyperactivity disorder) Adjustment disorder with mixed anxiety and depressed mood Amenorrhea Anxiety Bipolar disorder (manic depression) ([facility]) BMI 24.0-24.9, adult Chicken pox [...] SMEAR 05/21/2021 negative WISDOM TOOTH EXTRACTION 2015 [facility] REVIEW OF SYSTEMS Review of Systems: [...] nursing note reviewed. Exam conducted with a third rail installer present. Vitals: Estimated body mass index is 27.53 kg/m as calculated from the following: Height as of 25: 5' 7 . Weight as of this encounter: 175 lb 12.8 oz. BP: 102/68 Patient's last menstrual period was 06/19/2024. Assessment/Plan ICD-10-CM 1. Third trimester ([facility]) Z34.93 2. 33 weeks gestation of ([facility]) Z3A.33 POCT urinalysis dipstick manually resulted [...] of: Jose Pan DO documented in this encounterCox NorthOasodecumx60-81-1223 History of Present illness Narrative* Ana Mcintosh [...] affective disorder, currently depressed, moderate ([facility]) 09/06/2022 Complication of intrauterine device (IUD) 09/06/2022 Inattention 09/06/2022 Irregular menses 09/06/2022 Irritable bowel syndrome with diarrhea 09/06/2022 Menstrual cramp 09/06/2022 Pain in pelvis 09/06/2022 Generalized anxiety disorder 09/06/2022 Post-traumatic stress disorder 09/06/2022 Slow transit constipation 09/06/2022 Anxiety during ([facility]) 03/26/2020 Depression affecting ([facility]) 03/26/2020 History of chlamydia 03/26/2020 Bacterial infection due to mycoplasma 02/15/2024 Vaginal odor 02/15/2024 Urinary tract infection without hematuria 02/15/2024 Bacterial vaginosis 02/15/2024 Bladder pain 07/18/2024 Calculus of kidney 07/25/2013 Gross hematuria 07/18/2024 Resolved Ambulatory Problems Diagnosis Date Noted No Resolved Ambulatory Problems Past Medical History: Diagnosis Date ADHD (attention deficit hyperactivity disorder) Bipolar disorder (manic depression) ([facility]) BMI 24.0-24.9, adult Chicken pox [...] nursing note reviewed. Exam conducted with a third rail installer present. Vitals: Estimated body mass index is 27 kg/m as calculated from the following: Height as of 07/18/24: 5' 7 . Weight as of this encounter: 172 lb 6.4 oz. BP: 108/72 Patient's last menstrual period was 06/19/2024. ASSESSMENT & PLAN ICD-10-CM 1. Encounter for ultrasound recheck of choroid plexus cyst, antepartum ([facility]) O35.03X0 US OB limited 1+ fetuses 2. Third trimester ([facility]) Z34.93 3. 31 weeks gestation of ([facility]) Z3A.31 POCT urinalysis dipstick manually resulted 4. size inconsistent with dates ([facility]) O26.849 US OB follow up transabdominal [...] Anxiety Bipolar disorder (manic depression) ([facility]) BMI 24.0-24.9, adult Chicken pox [...] SMEAR 05/21/2021 negative WISDOM TOOTH EXTRACTION 2015 [place] [facility] documented in this encounterCox NorthFgjpxlnjaq08-01-7623 History of Present illness Narrative* Jake Gunter [...] affective disorder, currently depressed, moderate ([facility]) 09/06/2022 Complication of intrauterine device (IUD) 09/06/2022 Inattention 09/06/2022 Irregular menses 09/06/2022 Irritable bowel syndrome with diarrhea 09/06/2022 Menstrual cramp 09/06/2022 Pain in pelvis 09/06/2022 Generalized anxiety disorder 09/06/2022 Post-traumatic stress disorder 09/06/2022 Slow transit constipation 09/06/2022 Anxiety during ([facility]) 03/26/2020 Depression affecting ([facility]) 03/26/2020 History of chlamydia 03/26/2020 Bacterial infection due to mycoplasma 02/15/2024 Vaginal odor 02/15/2024 Urinary tract infection without hematuria 02/15/2024 Bacterial vaginosis 02/15/2024 Bladder pain 07/18/2024 Calculus of kidney 07/25/2013 Gross hematuria 07/18/2024 Resolved Ambulatory Problems Diagnosis Date Noted No Resolved Ambulatory Problems Past Medical History: Diagnosis Date ADHD (attention deficit hyperactivity disorder) Bipolar disorder (manic depression) ([facility]) BMI 24.0-24.9, adult Chicken pox 2007 Headache IBS (irritable bowel syndrome) Intrauterine device surveillance Pelvic pain Urinary tract infection HISTORY PAST MEDICAL HISTORY SOCIAL HISTORY Past Medical History: Diagnosis Date ADHD (attention deficit hyperactivity disorder) Adjustment disorder with mixed anxiety and depressed mood Amenorrhea Anxiety Bipolar disorder (manic depression) ([facility]) BMI 24.0-24.9, adult Chicken pox [...] SMEAR 05/21/2021 negative WISDOM TOOTH EXTRACTION 2014 [place] [facility] REVIEW OF SYSTEMS Review of Systems: [...] nursing note reviewed. Exam conducted with a third rail installer present. Vitals: Estimated body mass index is 26.31 kg/m as calculated from the following: Height as of 07/18/24: 5' 7 . Weight as of 12/28/24: 168 lb. BP: Patient's last menstrual period was 06/19/2024. ASSESSMENT & PLAN ICD-10-CM 1. Third trimester ([facility]) Z34.93 POCT urinalysis dipstick manually resulted 2. 29 weeks gestation of ([facility]) Z3A.29 3. Choroid plexus cyst G93.0 [...] of: Jake Gunter NP documented in this encounterCox NorthGpmkxygkcw20-53-3999 History of Present illness Narrative* ALISA Coyle [...] affective disorder, currently depressed, moderate ([facility]) 09/06/2022 Complication of intrauterine device (IUD) 09/06/2022 Inattention 09/06/2022 Irregular menses 09/06/2022 Irritable bowel syndrome with diarrhea 09/06/2022 Menstrual cramp 09/06/2022 Pain in pelvis 09/06/2022 Generalized anxiety disorder 09/06/2022 Post-traumatic stress disorder 09/06/2022 Slow transit constipation 09/06/2022 Anxiety during ([facility]) 03/26/2020 Depression affecting ([facility]) 03/26/2020 History of chlamydia 03/26/2020 Bacterial infection due to mycoplasma 02/15/2024 Vaginal odor 02/15/2024 Urinary tract infection without hematuria 02/15/2024 Bacterial vaginosis 02/15/2024 Bladder pain 07/18/2024 Calculus of kidney 07/25/2013 Gross hematuria 07/18/2024 Resolved Ambulatory Problems Diagnosis Date Noted No Resolved Ambulatory Problems Past Medical History: Diagnosis Date ADHD (attention deficit hyperactivity disorder) Bipolar disorder (manic depression) ([facility]) BMI 24.0-24.9, adult Chicken pox 2007 Headache IBS (irritable bowel syndrome) Intrauterine device surveillance Pelvic pain Urinary tract infection HISTORY PAST MEDICAL HISTORY SOCIAL HISTORY Past Medical History: Diagnosis Date ADHD (attention deficit hyperactivity disorder) Adjustment disorder with mixed anxiety and depressed mood Amenorrhea Anxiety Bipolar disorder (manic depression) ([facility]) BMI 24.0-24.9, adult Chicken pox [...] SMEAR 05/21/2021 negative WISDOM TOOTH EXTRACTION 2015 [place] [facility] REVIEW OF SYSTEMS Review of Systems: [...] ASSESSMENT & PLAN ICD-10-CM 1. Second trimester ([facility]) Z34.92 POCT urinalysis dipstick manually resulted 2. 27 weeks gestation of ([facility]) Z3A.27 POCT urinalysis dipstick manually resulted [...] behalf of: ALISA Coyle documented in this encounterCox NorthZoscxydeia29-90-4677 History of Present illness Narrative* Jake Gunter [...] affective disorder, currently depressed, moderate ([facility]) 09/06/2022 Complication of intrauterine device (IUD) 09/06/2022 Inattention 09/06/2022 Irregular menses 09/06/2022 Irritable bowel syndrome with diarrhea 09/06/2022 Menstrual cramp 09/06/2022 Pain in pelvis 09/06/2022 Generalized anxiety disorder 09/06/2022 Post-traumatic stress disorder 09/06/2022 Slow transit constipation 09/06/2022 Anxiety during ([facility]) 03/26/2020 Depression affecting ([facility]) 03/26/2020 History of chlamydia 03/26/2020 Bacterial infection due to mycoplasma 02/15/2024 Vaginal odor 02/15/2024 Urinary tract infection without hematuria 02/15/2024 Bacterial vaginosis 02/15/2024 Bladder pain 07/18/2024 Calculus of kidney 07/25/2013 Gross hematuria 07/18/2024 Resolved Ambulatory Problems Diagnosis Date Noted No Resolved Ambulatory Problems Past Medical History: Diagnosis Date ADHD (attention deficit hyperactivity disorder) Bipolar disorder (manic depression) ([facility]) BMI 24.0-24.9, adult Chicken pox 2007 Headache IBS (irritable bowel syndrome) Intrauterine device surveillance Pelvic pain Urinary tract infection HISTORY PAST MEDICAL HISTORY SOCIAL HISTORY Past Medical History: Diagnosis Date ADHD (attention deficit hyperactivity disorder) Adjustment disorder with mixed anxiety and depressed mood Amenorrhea Anxiety Bipolar disorder (manic depression) ([facility]) BMI 24.0-24.9, adult Chicken pox [...] SMEAR 05/21/2021 negative WISDOM TOOTH EXTRACTION 2015 [place] [facility] REVIEW OF SYSTEMS Review of Systems: [...] nursing note reviewed. Exam conducted with a third rail installer present. Vitals: Estimated body mass index is 25.22 kg/m as calculated from the following: Height as of 07/18/24: 5' 7 . Weight as of this encounter: 161 lb. BP: 110/72 Patient's last menstrual period was 06/19/2024. ASSESSMENT & PLAN ICD-10-CM 1. Second trimester [facility] [facility] Z34.92 POCT urinalysis dipstick manually resulted 2. 24 weeks gestation of ([facility]) Z3A.24 3. Diabetes mellitus screening Z13.1 [...] of: Jose Pan DO documented in this encounterCox [id number] History of Present illness Narrative* Jake Gunter [...] affective disorder, currently depressed, moderate ([facility]) 09/06/2022 Complication of intrauterine device (IUD) 09/06/2022 Inattention 09/06/2022 Irregular menses 09/06/2022 Irritable bowel syndrome with diarrhea 09/06/2022 Menstrual cramp 09/06/2022 Pain in pelvis 09/06/2022 Generalized anxiety disorder 09/06/2022 Post-traumatic stress disorder 09/06/2022 Slow transit constipation 09/06/2022 Anxiety during ([facility]) 03/26/2020 Depression affecting ([facility]) 03/26/2020 History of chlamydia 03/26/2020 Bacterial infection due to mycoplasma 02/15/2024 Vaginal odor 02/15/2024 Urinary tract infection without hematuria 02/15/2024 Bacterial vaginosis 02/15/2024 Bladder pain 07/18/2024 Calculus of kidney 07/25/2013 Gross hematuria 07/18/2024 Resolved Ambulatory Problems Diagnosis Date Noted No Resolved Ambulatory Problems Past Medical History: Diagnosis Date ADHD (attention deficit hyperactivity disorder) Bipolar disorder (manic depression) ([facility]) BMI 24.0-24.9, adult Chicken pox 2007 Headache IBS (irritable bowel syndrome) Intrauterine device surveillance Pelvic pain Urinary tract infection HISTORY PAST MEDICAL HISTORY SOCIAL HISTORY Past Medical History: Diagnosis Date ADHD (attention deficit hyperactivity disorder) Adjustment disorder with mixed anxiety and depressed mood Amenorrhea Anxiety Bipolar disorder (manic depression) ([facility]) BMI 24.0-24.9, adult Chicken pox [...] SMEAR 05/21/2021 negative WISDOM TOOTH EXTRACTION 2015 [place] [facility] REVIEW OF SYSTEMS Review of Systems: [...] nursing note reviewed. Exam conducted with a third rail installer present. Vitals: Estimated body mass index is 24.59 kg/m as calculated from the following: Height as of 25: 5' 7 . Weight as of this encounter: 157 lb. BP: 118/70 Patient's last menstrual period was 06/19/2024. ASSESSMENT & PLAN (Z34.92) Second trimester ([facility]) Plan: POCT urinalysis dipstick manually resulted (Z3A.20) 20 weeks gestation of ([facility]) Return OB: Patient presents today [...] of: Jose Pan DO documented in this encounterCox [id number] History of Present illness Narrative* Jake Gunter [...] 09/06/2022 Slow transit constipation 09/06/2022 Anxiety during ([facility]) 03/26/2020 Depression affecting ([facility]) 03/26/2020 History of chlamydia 03/26/2020 Bacterial infection due to mycoplasma 02/15/2024 Vaginal odor 02/15/2024 Urinary tract infection without hematuria 02/15/2024 Bacterial vaginosis 02/15/2024 Bladder pain 07/18/2024 Calculus of kidney 07/25/2013 Gross hematuria 07/18/2024 Resolved Ambulatory Problems Diagnosis Date Noted No Resolved Ambulatory Problems Past Medical History: Diagnosis Date ADHD (attention deficit hyperactivity disorder) Bipolar disorder (manic depression) ([facility]) BMI 24.0-24.9, adult Chicken pox 2007 Headache IBS (irritable bowel syndrome) Intrauterine device surveillance Pelvic pain Urinary tract infection HISTORY PAST MEDICAL HISTORY SOCIAL HISTORY Past Medical History: Diagnosis Date ADHD (attention deficit hyperactivity disorder) Adjustment disorder with mixed anxiety and depressed mood Amenorrhea Anxiety Bipolar disorder (manic depression) ([facility]) BMI 24.0-24.9, adult Chicken pox [...] SMEAR 05/21/2021 negative WISDOM TOOTH EXTRACTION 2015 [place] [facility] REVIEW OF SYSTEMS Review of Systems: [...] nursing note reviewed. Exam conducted with a third rail installer present. Vitals: Estimated body mass index is 24 kg/m as calculated from the following: Height as of 07/18/24: 5' 7 . Weight as of this encounter: 153 lb 4 oz. BP: 108/60 Patient's last menstrual period was 06/19/2024. ASSESSMENT & PLAN ICD-10-CM 1. Second trimester ([facility]) Z34.92 Alpha fetoprotein, maternal Alpha fetoprotein, maternal POCT urinalysis dipstick manually resulted 2. 16 weeks gestation of ([facility]) Z3A.16 3. Screening, , for anatomic survey ([facility]) Z36.89 US OB 14+ weeks anatomy [...] of: Jose Pan DO documented in this encounterCox [id number] History of Present illness Narrative* Nasreen Figueroa [...] affective disorder, currently depressed, moderate ([facility]) 09/06/2022 Complication of intrauterine device (IUD) 09/06/2022 Inattention 09/06/2022 Irregular menses 09/06/2022 Irritable bowel syndrome with diarrhea 09/06/2022 Menstrual cramp 09/06/2022 Pain in pelvis 09/06/2022 Generalized anxiety disorder 09/06/2022 Post-traumatic stress disorder 09/06/2022 Slow transit constipation 09/06/2022 Anxiety during ([facility]) 03/26/2020 Depression affecting ([facility]) 03/26/2020 History of chlamydia 03/26/2020 Bacterial infection due to mycoplasma 02/15/2024 Vaginal odor 02/15/2024 Urinary tract infection without hematuria 02/15/2024 Bacterial vaginosis 02/15/2024 Bladder pain 07/18/2024 Calculus of kidney 07/25/2013 Gross hematuria 07/18/2024 Resolved Ambulatory Problems Diagnosis Date Noted No Resolved Ambulatory Problems Past Medical History: Diagnosis Date ADHD (attention deficit hyperactivity disorder) Bipolar disorder (manic depression) ([facility]) BMI 24.0-24.9, adult Chicken pox 2007 Headache IBS (irritable bowel syndrome) Intrauterine device surveillance Pelvic pain Urinary tract infection HISTORY PAST MEDICAL HISTORY SOCIAL HISTORY Past Medical History: Diagnosis Date ADHD (attention deficit hyperactivity disorder) Adjustment disorder with mixed anxiety and depressed mood Amenorrhea Anxiety Bipolar disorder (manic depression) ([facility]) BMI 24.0-24.9, adult Chicken pox [...] SMEAR 05/21/2021 negative WISDOM TOOTH EXTRACTION 2015 [place] [facility] REVIEW OF SYSTEMS Review of Systems: [...] nursing note reviewed. Exam conducted with a third rail installer present. Vitals: Estimated body mass index is 23.34 kg/m as calculated from the following: Height as of 07/18/24: 5' 7 . Weight as of this encounter: 149 lb. BP: 116/70 Patient's last menstrual period was 06/19/2024. ASSESSMENT & PLAN ICD-10-CM 1. Second trimester ([facility]) Z34.92 POCT urinalysis dipstick manually resulted 2. 14 weeks gestation of ([facility]) Z3A.14 3. Screen for STD (sexually [...] affective disorder, currently depressed, moderate ([facility]) 09/06/2022 Complication of intrauterine device (IUD) 09/06/2022 Inattention 09/06/2022 Irregular menses 09/06/2022 Irritable bowel syndrome with diarrhea 09/06/2022 Menstrual cramp 09/06/2022 Pain in pelvis 09/06/2022 Generalized anxiety disorder 09/06/2022 Post-traumatic stress disorder 09/06/2022 Slow transit constipation 09/06/2022 Anxiety during ([facility]) 03/26/2020 Depression affecting ([facility]) 03/26/2020 History of chlamydia 03/26/2020 Bacterial infection due to mycoplasma 02/15/2024 Vaginal odor 02/15/2024 Urinary tract infection without hematuria 02/15/2024 Bacterial vaginosis 02/15/2024 Bladder pain 07/18/2024 Calculus of kidney 07/25/2013 Gross hematuria 07/18/2024 Resolved Ambulatory Problems Diagnosis Date Noted No Resolved Ambulatory Problems Past Medical History: Diagnosis Date ADHD (attention deficit hyperactivity disorder) Bipolar disorder (manic depression) ([facility]) BMI 24.0-24.9, adult Chicken pox 2007 Headache IBS (irritable bowel syndrome) Intrauterine device surveillance Pelvic pain Urinary tract infection HISTORY PAST MEDICAL HISTORY SOCIAL HISTORY Past Medical History: Diagnosis Date ADHD (attention deficit hyperactivity disorder) Adjustment disorder with mixed anxiety and depressed mood Amenorrhea Anxiety Bipolar disorder (manic depression) ([facility]) BMI 24.0-24.9, adult Chicken pox [...] SMEAR 05/21/2021 negative WISDOM TOOTH EXTRACTION 2015 [place] REVIEW OF SYSTEMS Review of Systems: [...] nursing note reviewed. Exam conducted with a third rail installer present. Vitals: Estimated body mass index is 23.34 kg/m as calculated from the following: Height as of 07/18/24: 5' 7 . Weight as of this encounter: 149 lb. BP: 116/70 Patient's last menstrual period was 06/19/2024. ASSESSMENT & PLAN ICD-10-CM 1. Second trimester ([facility]) Z34.92 POCT urinalysis dipstick manually resulted 2. 14 weeks gestation of ([facility]) Z3A.14 3. Screen for STD (sexually transmitted disease) Z11.3 SURESWAB(R) ADVANCED VAGINITIS PLUS, TMA CHLAMYDIA TRACHOMATIS (GENITO/STI) Neisseria gonorrhea DNA probe, direct Patient presents with complaints of vaginal discharge. She denies any pelvic pain today. Cultures are obtained today. She will return in 2 weeks for her routine OB appointment. Documented by Jake Gunter NP on behalf of: ALISA oCyle documented in this encounterCox [id number] History of Present illness Narrative* Ana Mcintosh, [...] disorder with mixed anxiety and depressed mood ([facility]) 09/06/2022 Amenorrhea 09/06/2022 Anxiety 09/06/2022 Bipolar affective disorder, currently depressed, moderate ([facility]) 09/06/2022 Complication of intrauterine device (IUD) ([facility]) 09/06/2022 Inattention 09/06/2022 Irregular menses [...] Diagnosis Date ADHD (attention deficit hyperactivity disorder) ([facility]) Bipolar disorder (manic depression) ([facility]) BMI 24.0-24.9, adult Chicken pox 2008 Headache IBS (irritable bowel syndrome) Intrauterine device surveillance Pelvic pain Urinary tract infection HISTORY PAST MEDICAL HISTORY SOCIAL HISTORY Past Medical History: Diagnosis Date ADHD (attention deficit hyperactivity disorder) ([facility]) Adjustment disorder with mixed anxiety and depressed mood ([facility]) Amenorrhea Anxiety Bipolar disorder (manic depression) ([facility]) BMI 24.0-24.9, adult Chicken pox 2008 Complication of intrauterine device (IUD) ([facility]) Headache IBS (irritable bowel syndrome) [...] SMEAR 05/21/2021 negative WISDOM TOOTH EXTRACTION 2015 [place] [facility] REVIEW OF SYSTEMS Review of Systems: [...] nursing note reviewed. Exam conducted with a third rail installer present. Vitals: Estimated body mass index [...] or undercooked meat, and stay away from [facility]. Patient has been consulted regarding any [...] of: Jose Pan DO documented in this encounterCox [id number] History of Present illness Narrative* Nasreen Figueroa [...] disorder with mixed anxiety and depressed mood ([facility]) 09/06/2022 Amenorrhea 09/06/2022 Anxiety 09/06/2022 Bipolar affective disorder, currently depressed, moderate ([facility]) 09/06/2022 Complication of intrauterine device (IUD) ([facility]) 09/06/2022 Inattention 09/06/2022 Irregular menses 09/06/2022 Irritable bowel syndrome with diarrhea 09/06/2022 Menstrual cramp 09/06/2022 Pain in pelvis 09/06/2022 Generalized anxiety disorder ([facility]) 09/06/2022 Post-traumatic stress disorder ([facility]) 09/06/2022 Slow transit constipation 09/06/2022 Anxiety during 03/26/2020 Depression affecting ([facility]) 03/26/2020 History of chlamydia 03/26/2020 Bacterial infection due to mycoplasma 02/15/2024 Vaginal odor 02/15/2024 Urinary tract infection without hematuria 02/15/2024 Bacterial vaginosis 02/15/2024 Bladder pain 07/18/2024 Calculus of kidney 07/25/2013 Gross hematuria 07/18/2024 Resolved Ambulatory Problems Diagnosis Date Noted No Resolved Ambulatory Problems Past Medical History: Diagnosis Date ADHD (attention deficit hyperactivity disorder) ([facility]) Bipolar disorder (manic depression) ([facility]) BMI 24.0-24.9, adult Chicken pox 2008 Headache [...] SMEAR 05/21/2021 negative WISDOM TOOTH EXTRACTION 2015 [place] [facility] Allergies Allergen Reactions Bacitracin-Polymyxin B Other [...] urine; Future Nurse Note: Patient unsure of [employer] to one. OB Intake: Patient presents today for first OB visit. Patients history has been reviewed in great detail including any potential risks. Patient signed consent forms and patient desires testing in both trimesters. Patient currently has no complaints and has been advised to drink 6-8 glasses of water a day, eatno raw or undercooked meat, and stay away from formerly [facility]. Patient has also been advised to [...] by: Nasreen Figueroa MA documented in this encounterCox [id number] NotePatient Education Urology Kidney Stones Kidney stones [...] these instructions at home: Medicines ??? Take [id number] and prescription medicines only as told by [...] provider. Document Revised: 11/21/2022 Document Reviewed: 11/21/2022 [employer] Patient Education ? 2023 [employer] 07-18-2024 History of Present illness Narrative* Sri [...] during her subsequent annual visit with her POCKET CLOSER, the diagnosis of bilateral fibroids was confirmed, leading her to forego the ultrasound. Over the past weekend, she has noticed an increase in the sizeof the left breast mass, accompanied by tenderness. She recently had a positive test. Sheis scheduled to see her POCKET CLOSER in 08/2024. Supplemental Information She takes D-mannose [...] SMEAR 05/21/2021 negative WISDOM TOOTH EXTRACTION 2015 [place] [facility] FAMILY HISTORY: Family History Problem Relation [...] size of the lump. documented in this encounterCox [id number] Telephone encounter Note* Telephone Encounter - Lopez Gan - 06/10/2024 9:17 AM EST Faheem called - she asked if its ok that you go ahead and send the referral for her hand now,please. Ty Cox [id number] Miscellaneous Notes* Telephone Encounter - Lopez Gan - 06/10/2024 9:17 AM EST Faheem called - she asked if its ok that you go ahead and send the referral for her hand now,please. Ty documented in this encounterCox [id number] History of Present illness Narrative* Reggie Donovan [...] Buchanan LPN Hospital Information ED, Hospital or Custodial Facility Discharge? ED Patient has been contacted within 1 week of being seen in the ED No Have two attempts been made to contact the patient within one week of being seen in the ED? Yes Diagnosis Right thumb laceration. Discharge Date 06/01/24 Discharged To: Home Setting Discharge Hospital [facility] Engagement Admission Date 06/01/24 Medications Appointments [...] Diagnosis Date ADHD (attention deficit hyperactivity disorder) ([facility]) Adjustment disorder with mixed anxiety and depressed mood ([facility]) Amenorrhea Anxiety Bipolar disorder (manic depression) ([facility]) BMI 24.0-24.9, adult Chicken pox 2008 Complication of intrauterine device (IUD) ([facility]) Headache IBS (irritable bowel syndrome) [...] SMEAR 05/21/2021 negative WISDOM TOOTH EXTRACTION 2015 [place] [facility] REVIEW OF SYMPTOMS: Review of Systems [...] Follow up as needed. documented in this encounterCox [id number] History of Present illness Narrative* ALISA Coyle [...] disorder with mixed anxiety and depressed mood ([facility]) 09/06/2022 Amenorrhea 09/06/2022 Anxiety 09/06/2022 Bipolar affective disorder, currently depressed, moderate ([facility]) 09/06/2022 Complication of intrauterine device (IUD) ([facility]) 09/06/2022 Inattention 09/06/2022 Irregular menses 09/06/2022 Irritable bowel syndrome with diarrhea 09/06/2022 Menstrual cramp 09/06/2022 Pain in pelvis 09/06/2022 Generalized anxiety disorder ([facility]) 09/06/2022 Post-traumatic stress disorder ([facility]) 09/06/2022 Slow transit constipation 09/06/2022 Anxiety during 03/26/2020 Depression affecting ([facility]) 03/26/2020 History of chlamydia 03/26/2020 Bacterial infection due to mycoplasma 02/15/2024 Vaginal odor 02/15/2024 Urinary tract infection without hematuria 02/15/2024 Bacterial vaginosis 02/15/2024 Resolved Ambulatory Problems Diagnosis Date Noted No Resolved Ambulatory Problems Past Medical History: Diagnosis Date ADHD (attention deficit hyperactivity disorder) ([facility]) Bipolar disorder (manic depression) ([facility]) BMI 24.0-24.9, adult Chicken pox 2007 Headache IBS (irritable bowel syndrome) Intrauterine device surveillance Pelvic pain Urinary tract infection HISTORY PAST MEDICAL HISTORY SOCIAL HISTORY Past Medical History: Diagnosis Date ADHD (attention deficit hyperactivity disorder) ([facility]) Adjustment disorder with mixed anxiety and depressed mood ([facility]) Amenorrhea Anxiety Bipolar disorder (manic depression) ([facility]) BMI 24.0-24.9, adult Chicken pox 2007 Complication of intrauterine device (IUD) ([facility]) Headache IBS (irritable bowel syndrome) [...] SMEAR 05/21/2021 negative WISDOM TOOTH EXTRACTION 2015 [place] [facility] REVIEW OF SYSTEMS Review of Systems: [...] behalf of: ALISA Coyle documented in this encounterCox [id number] History of Present illness Narrative* Ana Mcintosh LPN - 04/20/2024 2:00 PM EST Reason for [...] disorder with mixed anxiety and depressed mood ([facility]) 09/06/2022 Amenorrhea 09/06/2022 Anxiety 09/06/2022 Bipolar affective disorder, currently depressed, moderate ([facility]) 09/06/2022 Complication of intrauterine device (IUD) ([facility]) 09/06/2022 Inattention 09/06/2022 Irregular menses 09/06/2022 Irritable bowel syndrome with diarrhea 09/06/2022 Menstrual cramp 09/06/2022 Pain in pelvis 09/06/2022 Generalized anxiety disorder ([facility]) 09/06/2022 Post-traumatic stress disorder ([facility]) 09/06/2022 Slow transit constipation 09/06/2022 Anxiety during 03/26/2020 Depression affecting ([facility]) 03/26/2020 History of chlamydia 03/26/2020 Bacterial infection due to mycoplasma 02/15/2024 Vaginal odor 02/15/2024 Urinary tract infection without hematuria 02/15/2024 Bacterial vaginosis 02/15/2024 Resolved Ambulatory Problems Diagnosis Date Noted No Resolved Ambulatory Problems Past Medical History: Diagnosis Date ADHD (attention deficit hyperactivity disorder) ([facility]) Bipolar disorder (manic depression) ([facility]) BMI 24.0-24.9, adult Chicken pox 2007 Headache IBS (irritable bowel syndrome) Intrauterine device surveillance Pelvic pain Urinary tract infection HISTORY PAST MEDICAL HISTORY SOCIAL HISTORY Past Medical History: Diagnosis Date ADHD (attention deficit hyperactivity disorder) ([facility]) Adjustment disorder with mixed anxiety and depressed mood ([facility]) Amenorrhea Anxiety Bipolar disorder (manic depression) ([facility]) BMI 24.0-24.9, adult Chicken pox 2007 Complication of intrauterine device (IUD) ([facility]) Headache IBS (irritable bowel syndrome) IBS with [...] SMEAR 05/21/2021 negative WISDOM TOOTH EXTRACTION 2015 [place] [facility] REVIEW OF SYSTEMS Review of Systems: [...] nursing note reviewed. Exam conducted with a third rail installer present. Vitals: Estimated body mass index [...] of: Jose Pan DO documented in this encounterCox [id number] NoteUrology Office/Clinic Note Chief Complaint referral HPI [...] gross hematuria. Pt. states she was in [place] ER for cystitis Frequency: 2-3 hours Urgency: [...] with voice recognition artificial intelligence software, specifically [employer], [employer] and or [employer]. Substitutions may have occurred due to the [...] OBGYN regarding poss endometriosis dx May be [facility]OR OF RE[facility]ILITATION AND WELLNESS source of pain Does not necessarily improve [...] intake. Restrict animal protein. -KUB/ MARCIA at [facility], call pt w/ results Orders: cephalexin, 500 mg = 1 cap(s), Oral, BID, X 7 day(s), # 14 cap(s), Refills(s) 0, Pharmacy: [id number], 174, cm, 03/01/24 10:48:00 EST, Height/Length [...] Mother. Primary malignant neoplasm of female breast: Grandparent.[facility] on [facility]:Result Comment: Electronically Signed By: SRUTHI Pinedo APRN, [place]\.br\Date and Time Signed: 03/29/24 10:28 [id number] Evaluation + Plan note Diagnostic Tests Pending * Urine Culture 03/21/24 [facility] 11-27-2024 History of Present illness Narrative* Ana Mcintosh LPN - 03/09/2024 11:20 AM EST Reason for Appointment: Patient ID: Faheem Babb is a 29 y.o. female who presents for Pre-op Visit Patient presents today for Pre Op appointment. Patient is scheduled to undergo Da Neha assisted Diagnostic Laparoscopy, possible ZAHRA, possible FOE, possible BSO on 04/01/[address] Pan at [facility]. MEDICATIONS Current Outpatient Medications Medication Instructions azithromycin (Zithromax) 500 MG tablet Day 1: Take 2 tablets PO onetime dose; Day 2,3,4: Take 1 tablet daily ALLERGIES Allergies Allergen Reactions Bacitracin-Polymyxin B Other Reaction(s): Unknown Lexapro [Escitalopram] Other groggy Buspar [Buspirone] Anxiety Caused heart palpitations and increased anxiety PROBLEMS Active Ambulatory Problems Diagnosis Date Noted Adjustment disorder with mixed anxiety and depressed mood ([facility]) 09/06/2022 Amenorrhea 09/06/2022 Anxiety 09/06/2022 Bipolar affective disorder, currently depressed, moderate ([facility]) 09/06/2022 Complication of intrauterine device (IUD) ([facility]) 09/06/2022 Inattention 09/06/2022 Irregular menses 09/06/2022 Irritable bowel syndrome with diarrhea 09/06/2022 Menstrual cramp 09/06/2022 Pain in pelvis 09/06/2022 Generalized anxiety disorder ([facility]) 09/06/2022 Post-traumatic stress disorder ([facility]) 09/06/2022 Slow transit constipation 09/06/2022 Anxiety during 03/26/2020 Depression affecting ([facility]) 03/26/2020 History of chlamydia 03/26/2020 Bacterial infection due to mycoplasma 02/15/2024 Vaginal odor 02/15/2024 Urinary tract infection without hematuria 02/15/2024 Bacterial vaginosis 02/15/2024 Resolved Ambulatory Problems Diagnosis Date Noted No Resolved Ambulatory Problems Past Medical History: Diagnosis Date ADHD (attention deficit hyperactivity disorder) ([facility]) Bipolar disorder (manic depression) ([facility]) BMI 24.0-24.9, adult Chicken pox 2007 Headache IBS (irritable bowel syndrome) Intrauterine device surveillance Pelvic pain Urinary tract infection HISTORY PAST MEDICAL HISTORY SOCIAL HISTORY Past Medical History: Diagnosis Date ADHD (attention deficit hyperactivity disorder) ([facility]) Adjustment disorder with mixed anxiety and depressed mood ([facility]) Amenorrhea Anxiety Bipolar disorder (manic depression) ([facility]) BMI 24.0-24.9, adult Chicken pox 2007 Complication of intrauterine device (IUD) ([facility]) Headache IBS (irritable bowel syndrome) [...] SMEAR 05/21/2021 negative WISDOM TOOTH EXTRACTION 2015 [place] teeth REVIEW OF SYSTEMS Review of Systems: [...] nursing note reviewed. Exam conducted with a third rail installer present. Vitals: Estimated body mass index [...] of: Jose Pan DO documented in this encounterCox [id number] History of Present illness Narrative* Estela Phipps [...] disorder with mixed anxiety and depressed mood ([facility]) 09/06/2022 Amenorrhea 09/06/2022 Anxiety 09/06/2022 Bipolar affective disorder, currently depressed, moderate ([facility]) 09/06/2022 Complication of intrauterine device (IUD) ([facility]) 09/06/2022 Inattention 09/06/2022 Irregular menses 09/06/2022 Irritable bowel syndrome with diarrhea 09/06/2022 Menstrual cramp 09/06/2022 Pain in pelvis 09/06/2022 Generalized anxiety disorder ([facility]) 09/06/2022 Post-traumatic stress disorder ([facility]) 09/06/2022 Slow transit constipation 09/06/2022 Anxiety during 03/26/2020 Depression affecting ([facility]) 03/26/2020 History of chlamydia 03/26/2020 Resolved Ambulatory Problems Diagnosis Date Noted No Resolved Ambulatory Problems Past Medical History: Diagnosis Date ADHD (attention deficit hyperactivity disorder) ([facility]) Bipolar disorder (manic depression) ([facility]) BMI 24.0-24.9, adult Chicken pox 2007 Headache IBS (irritable bowel syndrome) Intrauterine device surveillance Pelvic pain Urinary tract infection HISTORY PAST MEDICAL HISTORY SOCIAL HISTORY Past Medical History: Diagnosis Date ADHD (attention deficit hyperactivity disorder) ([facility]) Adjustment disorder with mixed anxiety and depressed mood ([facility]) Amenorrhea Anxiety Bipolar disorder (manic depression) ([facility]) BMI 24.0-24.9, adult Chicken pox 2008 Complication of intrauterine device (IUD) ([facility]) Headache IBS (irritable bowel syndrome) IBS with [...] SMEAR 05/21/2021 negative WISDOM TOOTH EXTRACTION 2015 [place] teeth REVIEW OF SYSTEMS Review of Systems: [...] nursing note reviewed. Exam conducted with a third rail installer present. Vitals: Estimated body mass index [...] refe rral to Urology. Patient aware that [facility] will reach out to her to sent up surgery datefor Dx Lap as well. Patient aware of referral process. Documented by Estela Phipps LPN on behalf of: Jose Pan DO documented in this encounterCox [id number] History of Present illness Narrative* ALISA Coyle [...] disorder with mixed anxiety and depressed mood ([facility]) 09/06/2022 Amenorrhea 09/06/2022 Anxiety 09/06/2022 Bipolar affective disorder, currently depressed, moderate ([facility]) 09/06/2022 Complication of intrauterine device (IUD) ([facility]) 09/06/2022 Inattention 09/06/2022 Irregular menses 09/06/2022 Irritable bowel syndrome with diarrhea 09/06/2022 Menstrual cramp 09/06/2022 Pain in pelvis 09/06/2022 Generalized anxiety disorder ([facility]) 09/06/2022 Post-traumatic stress disorder ([facility]) 09/06/2022 Slow transit constipation 09/06/2022 Anxiety during 03/26/2020 Depression affecting ([facility]) 03/26/2020 History of chlamydia 03/26/2020 Resolved Ambulatory Problems Diagnosis Date Noted No Resolved Ambulatory Problems Past Medical History: Diagnosis Date ADHD (attention deficit hyperactivity disorder) ([facility]) Bipolar disorder (manic depression) ([facility]) BMI 24.0-24.9, adult Chicken pox 2008 Headache IBS (irritable bowel syndrome) Intrauterine device surveillance Pelvic pain Urinary tract infection HISTORY PAST MEDICAL HISTORY SOCIAL HISTORY Past Medical History: Diagnosis Date ADHD (attention deficit hyperactivity disorder) ([facility]) Adjustment disorder with mixed anxiety and depressed mood ([facility]) Amenorrhea Anxiety Bipolar disorder (manic depression) ([facility]) BMI 24.0-24.9, adult Chicken pox 2008 Complication of intrauterine device (IUD) ([facility]) Headache IBS (irritable bowel syndrome) IBS with [...] SMEAR 05/21/2021 negative WISDOM TOOTH EXTRACTION 2015 [place] teeth REVIEW OF SYSTEMS Review of Systems: [...] nursing note reviewed. Exam conducted with a third rail installer present. Vitals: Estimated body mass index [...] behalf of: ALISA Coyle documented in this encounterCox [id number] History of Present illness Narrative* Estela Phipps [...] disorder with mixed anxiety and depressed mood ([facility]) 09/06/2022 Amenorrhea 09/06/2022 Anxiety 09/06/2022 Bipolar affective disorder, currently depressed, moderate ([facility]) 09/06/2022 Complication of intrauterine device (IUD) ([facility]) 09/06/2022 Inattention 09/06/2022 Irregular menses 09/06/2022 Irritable bowel syndrome with diarrhea 09/06/2022 Menstrual cramp 09/06/2022 Pain in pelvis 09/06/2022 Generalized anxiety disorder ([facility]) 09/06/2022 Post-traumatic stress disorder ([facility]) 09/06/2022 Slow transit constipation 09/06/2022 Anxiety during 03/26/2020 Depression affecting ([facility]) 03/26/2020 History of chlamydia 03/26/2020 Resolved Ambulatory Problems Diagnosis Date Noted No Resolved Ambulatory Problems Past Medical History: Diagnosis Date ADHD (attention deficit hyperactivity disorder) ([facility]) Bipolar disorder (manic depression) ([facility]) BMI 24.0-24.9, adult Chicken pox 2007 Headache IBS (irritable bowel syndrome) Intrauterine device surveillance Pelvic pain Urinary tract infection HISTORY PAST MEDICAL HISTORY SOCIAL HISTORY Past Medical History: Diagnosis Date ADHD (attention deficit hyperactivity disorder) ([facility]) Adjustment disorder with mixed anxiety and depressed mood ([facility]) Amenorrhea Anxiety Bipolar disorder (manic depression) ([facility]) BMI 24.0-24.9, adult Chicken pox 2007 Complication of intrauterine device (IUD) ([facility]) Headache IBS (irritable bowel syndrome) IBS with [...] SMEAR 05/21/2021 negative WISDOM TOOTH EXTRACTION 2015 [place] teeth REVIEW OF SYSTEMS Review of Systems: [...] nursing note reviewed. Exam conducted with a third rail installer present. Vitals: Estimated body mass index [...] Jose Pan DO documented in this encounterNOMS HealthcareEvaluation + Plan note No data available for this section [facility] evaluation note* Diagnosis Ureteral stone with hydronephrosis Calculus of ureter Suprapubic pain Abdominal pain, other specified site Dysuria Urgency of urination documented in this encounter [employer]: evaluation note* Diagnosis Ureteral stone with hydronephrosis Calculus of ureter documented in this encounter [employer]: evaluation note* Diagnosis Ureteral stone with hydronephrosis Calculus of ureter Suprapubic pain Abdominal pain, other specified site Dysuria Urgency of urination documented in this encounter [employer]: evaluation note* Diagnosis Well woman exam [...] available for this section [facility] progress note No data available for this section [facility] Advance Directives TypeDate RecordedPatient RepresentativeExplanationACP-Advance DirectiveACP-Power of AttorneyCode StatusDate ActivatedDate InactivatedCommentsFull Code03/28/2014 9:49 AM03/28/2014 5:17 PMTypeDate RecordedPatient RepresentativeExplanationACP- Advance DirectiveACP-Power of AttorneyCode StatusDate ActivatedDate Inactivated CommentsFull Code03/28/2014 9:49 AM03/28/2014 5:17 PM Reason for Referral SpecialtyDiagnoses / ProceduresReferred By ContactReferred To ContactRadiology Diagnoses Ureteral stone with hydronephrosis Suprapubic pain Dysuria Urgency of urination Procedures US RENAL COMPLETE Jason Bradley, MECHANICAL MAINTENANCE - DIRECTOR OF OPERATIONS SUPPORT [address] [facility] [address] [place] [address] Referral IDStatusReasonStart DateExpiration DateVisits RequestedVisits [id number] Summary Purpose Family History No Family History [...] MemberRelationshipSpecialtyStart DateEnd Date Sri Ramírez MD [address] [place] [address] PCP - General07/20/13Team MemberRelationshipSpecialtyStart DateEnd Date Sri Ramírez MD [address] [place] [address] PCP - General07/20/13Team MemberRelationshipSpecialtyStart DateEnd Date Sri Ramírez MD [address] [place] [address] PCP - General07/20/13Team MemberRelationshipSpecialtyStart DateEnd Date Sri Ramírez MD [address] [place] [address] PCP - General07/20/13Team MemberRelationshipSpecialtyStart DateEnd Date Sri Ramírez MD [facility] [place] [address] PCP - GeneralFamily Medicine09/19/22 Daisy Hurst, MECHANICAL MAINTENANCE-FITNESS TEACHER [address] [place] [address] PCP - [employer]09/12/23 Kayla Kahn DO [address] [place] [address] Referring Physician09/19/22Team MemberRelationshipSpecialtyStart DateEnd Date Sri Ramírez MD [address] [place] [address] PCP - GeneralFamily Medicine09/19/22 Daisy Hurst, MECHANICAL MAINTENANCE-FITNESS TEACHER [address] [facility] [address] [place] [address] PCP - [employer]09/12/23 Kayla Kahn, [address] [facility] [address] [place] [address] Referring Physician09/19/22Te MemberRelationshipSpecialtyStart DateEnd Date Sri Ramírez MD [address] [place] [facility] [place] [address] PCP - GeneralFamily Medicine09/19/22 Daisy Hurst, MECHANICAL MAINTENANCE-FITNESS TEACHER [address] [place] [address] PCP - [employer]09/12/23 Kayla Kahn DO [address] [place] [address] Referring Physician09/19/22Te MemberRelationshipSpecialtyStart [facility] Sri Ramírez MD [address] [place] [address] PCP - [facility] Medicine09/19/22 Daisy Hurst, MECHANICAL MAINTENANCE-FITNESS TEACHER [address] [place] [address] PCP - [employer]09/12/23 Kayla Kahn DO [address] [place] [address] Referring Physician09/19/22Te MemberRelationshipSpecialtyStart [facility] Date Sri Ramírez MD [address] [place] [facility] [address] PCP - [facility]Mary [facility] Medicine09/19/22 Daisy Hurst, MECHANICAL MAINTENANCE-FITNESS TEACHER [address] [facility] [address] [place] [address] PCP - [employer]09/12/23 Kayla Kahn DO [address] [place] [facility] [address] Referring Physician09/19/22Te MemberRelationshipSpecialtyStart [facility] Sri Ramírez MD [address] [place] [facility] [address] PCP - [facility]ver[facility] Medicine09/19/22 Daisy Hurst, MECHANICAL MAINTENANCE-FITNESS TEACHER [address] [facility] [address] [place] [address] PCP - [employer]09/12/23 Kayla Kahn DO [address] [place] [facility] [place] [address] Referring Physician09/19/22Te MemberRelationshipSpecialtyStart DateEnd [facility] Sri Ramírez MD [address] [place] [facility] [address] PCP - [facility] Medicine09/19/22 Daisy Hurst, MECHANICAL MAINTENANCE-FITNESS TEACHER [address] [facility] [address] [place] [address] PCP - [employer]09/12/23 Kayla Kahn DO [address] [facility] [address] [place] [address] Referring Physician09/19/22Te MemberRelationshipSpecialtyStart DateEnd Date Sri Ramírez MD [address] [place] [facility] [place] [address] PCP - [facility] Medicine09/19/22 Daisy Hurst, MECHANICAL MAINTENANCE-FITNESS TEACHER [address] [facility] [address] [place] [address] PCP - [employer]09/12/23 Kayla Kahn DO [address] [place] [address] Referring Physician09/19/22Te MemberRelationshipSpecialtyStart DateEnd Sri Ramírez MD [address] [place] [address] PCP - [facility] Medicine09/19/22 Daisy Hurst, MECHANICAL MAINTENANCE-FITNESS TEACHER [address] [facility] [address] [place] [address] PCP - [employer]09/12/23 Kayla Kahn DO [address] [place] [address] Referring Physician09/19/22Team MemberRelationshipSpecialtyStart DateEnd Sri Ramírez MD [address] [place] [address] PCP - [facility]Ad[facility]09/19/22 Daisy Hurst, MECHANICAL MAINTENANCE-FITNESS TEACHER [address] [facility] [address] [place] [address] PCP - [employer]09/12/23 Kayla Kahn DO [address] [place] [address] Referring Physician09/19/22Team MemberRelationshipSpecialtyStart DateEnd Date Sri Ramírez MD [address] [place] [address] PCP - GeneralAd[facility] Gordon09/19/22 Daisy Hurst, MECHANICAL MAINTENANCE-FITNESS TEACHER [address] [facility] [address] [place] [address] PCP - [employer]09/12/23 Kayla Kahn DO [address] [place] [facility] [address] Referring Physician09/19/22Te MemberRelationshipSpecialtyStart [facility] Sri Ramírez MD [address] [facility] [place] [address] PCP - GeneralFamily Medicine09/19/22 Daisy Hurst, MECHANICAL MAINTENANCE-FITNESS TEACHER [address] [facility] [address] [place] [address] PCP - [employer]09/12/23 Kayla Kahn DO [address] [place] [facility] [place] [address] Referring Physician09/19/22Te MemberRelationshipSpecialtyStart DateEnd [facility] Sri Ramírez MD [address] [facility] [place] [address] PCP - GeneralFamily Medicine09/19/22 Daisy Hurst, MECHANICAL MAINTENANCE-FITNESS TEACHER [address] [facility] [address] [place] [address] PCP - [employer]09/12/23 Kayla Kahn DO [address] [place] [facility] [place] [address] Referring Physician09/19/22Te MemberRelationshipSpecialtyStart DateEnd [facility] Sri Ramírez MD [address] [place] [facility] [place] [address] PCP - GeneralFamily Medicine09/19/22 Daisy Hurst, MECHANICAL MAINTENANCE-FITNESS TEACHER [address] [facility] [address] [place] [address] PCP - [employer]09/12/23 Kayla Kahn DO [address] [place] [facility] [place] [address] Referring Physician09/19/22[facility] MemberRelationshipSpecialtyStart [facility] Sri Ramírez MD [address] [place] [facility] [place] [address] PCP - [facility] Medicine09/19/22 Daisy Hurst, MECHANICAL MAINTENANCE-FITNESS TEACHER [address] [facility] [address] [place] [address] PCP - [employer]09/12/23 Kayla Kahn DO [address] [place] [facility] [place] [address] Referring Physician09/19/22 MemberRelationshipSpecialtyStart [facility] Sri Ramírez MD [address] [place] [facility] [place] [address] PCP - [facility] Medicine09/19/22 Daisy Hurst, MECHANICAL MAINTENANCE-FITNESS TEACHER [address] [facility] [address] [place] [address] PCP - [employer]09/12/23 Kayla Kahn DO [address] [place] [facility] [place] [address] Referring Physician09/19/22Team MemberRelationshipSpecialtyStart DateEnd Date Sri Ramírez MD [address] [place] [address] PCP - [facility] Medicine09/19/22 Kayla Kahn DO [address] [place] [address] Referring Physician09/19/22Te MemberRelationshipSpecialtyStart DateEnd Date Sri Ramírez MD [address] [place] [address] PCP - [facility]09/19/22 Kayla Kahn DO [address] [place] [address] Referring Physician09/19/22Te MemberRelationshipSpecialtyStart DateEnd Date Sri Ramírez MD [address] [place] [address] PCP - [facility]09/19/22 Kayla Kahn DO [address] [place] [address] Referring Physician09/19/22Te MemberRelationshipSpecialtyStart DateEnd Date Sri Ramírez MD [address] [place] [address] PCP - [facility] Medicine09/19/22 Kayla Kahn DO [address] [place] [address] Referring Physician09/19/22Team MemberRelationshipSpecialtyStart DateEnd Date Sri Ramírez MD [address] [place] [address] PCP - [facility] Medicine09/19/22 Kayla Kahn DO [address] [place] [address] Referring Physician09/19/22Team MemberRelationshipSpecialtyStart DateEnd Date Sri Ramírez MD [address] [place] [address] PCP - [facility] Medicine09/19/22 Kayla Kahn DO [address] [place] [address] Referring Physician09/19/22Team MemberRelationshipSpecialtyStart DateEnd Date Sri Ramírez MD [address] [place] [address] PCP - [facility] Medicine09/19/22 Kayla Kahn DO [address] [place] [address] Referring Physician09/19/22Team MemberRelationshipSpecialtyStart DateEnd Date Sri Ramírez MD [address] [place] [address] PCP - [facility]Ad[facility]09/19/22 Kayla Kahn DO [address] [place] [address] Referring Physician09/19/22Team MemberRelationshipSpecialtyStart [facility] Sri Ramírez MD [address] [place] [address] PCP - [facility] Medicine09/19/22 Kayla Kahn DO [address] [place] [address] Referring Physician09/19/22Team MemberRelationshipSpecialtyStart [facility] Sri Ramírez MD [address] [place] [address] PCP - [facility] Medicine09/19/22 Kayla Kahn DO [address] [place] [address] Referring Physician09/19/22Team MemberRelationshipSpecialtyStart [facility] Sri Ramírez MD [address] [place] [address] PCP - [facility] Medicine09/19/22 Kayla Kahn DO [address] [place] [address] Referring Physician09/19/22Team MemberRelationshipSpecialtyStart [facility] Sri Ramírez MD [address] [place] [address] PCP - Generalmily Medicine09/19/22 Daisy Hurst MECHANICAL MAINTENANCE-FITNESS TEACHER [address] [place] [address] [address] [place] [address] PCP - [employer] Kayla Kahn DO [address] [place] [address] Referring Physician09/19/22Team MemberRelationshipSpecialtyStart DateEnd Date Sri Ramírez MD [address] [place] [address] PCP - GeneralFancly Medicine09/19/22 Kayla Kahn DO [address] [place] [address] Referring Physician09/19/22 Reason for Visit (unrecogniz ed section and content) SpecialtyDiagnoses / ProceduresReferred By ContactReferred To ContactRadiology Diagnoses Ureteral stone with hydronephrosis Suprapubic pain Dysuria Urgency of urination Procedures US RENAL COMPLETE Jason Bradley, MECHANICAL MAINTENANCE - DIRECTOR OF OPERATIONS SUPPORT [address] [facility] [address] [place] [address] Referral IDStatusReasonStart DateExpiration DateVisits RequestedVisits [id number] Women VisitReason CommentsVaginitis/Bacterial VaginosisPt present today for follow up on BV/UTI. Pt complains of having an odor and would like cx's done at todays visit.Reason CommentsPre-op VisitReasonCommentspelvic pressureReasonCommentsPost-op Visit ReasonCommentsBV and CulturesReasonCommentsER Follow-upReasonCommentsAnnual Exam Breast MassReasonCommentsAmenorrheaReasonCommentsRoutine Visit INFORMATION SOURCE (unrecogn ized section and content) DATE CREATED AUTHOR 06/23/2021 [facility] DATE CREATED AUTHOR AUTHOR'S ORGANIZ ATION 05/20/2022 [facility] DATE CREATED AUTHOR AUTHOR'S ORGANIZ ATION 09/25/2023 [facility] DATE CREATED AUTHOR AUTHOR'S ORGANIZ ATION 03/27/2024 [facility] DATE CREATED AUTHOR AUTHOR'S ORGANIZ ATION 04/13/2024 [facility] DATE CREATED AUTHOR AUTHOR'S ORGANIZ ATION 08/02/2024 [facility] DATE CREATED AUTHOR AUTHOR'S ORGANIZ ATION 02/22/[address] [facility] EPIC FOR RECORDS PERTAINING TO PATIENTS [...] BE BASED ON THE PRIMARY CLINICAL RECORDS. [facility] [employer] [facility]. provides no warranty or guarantee of the accuracy or completeness of information in this document.
== END 2025-02-27 20:28 | disposition home or self-care (01) ==
LOC: LAB 20:27
PROVIDERS: PCP Family Medicine; Visit Provider Nurse Practitioner Family
DX: Z34.93 Encounter for supervision of normal pregnancy, unspecified, third trimester (principal); Z3A.36 36 weeks gestation of pregnancy
CPT/HCPCS: 87081

== ENCOUNTER 2025-03-21 05:19 | Inpatient (IN) | payer BC, SELFPAY ==
--- OUTSIDE RECORDS SUMMARY | 2025-03-08 13:50 | XMS_ITS | Encounter Summary ---
Author Organization [facility] Address [address] [place] [address] Care Team Providers Care Destaticizer Feeder Name Role Phone Sri Ramírez MD Primary Care Provider [phone] Kayla Kahn DO Unavailable [phone] Reason for Visit * ReasonCommentsRoutine Visit Encounter Details DateTypeDepartmentCare Team (Latest Contact Info)Vnytduuwkfk06/26/2025 1:50 PM ESTRoutine [facility] [address] [place] [phone] Jose Pan DO [address] [place] [id number] Third trimester ([facility]); 37 weeks gestation of ([facility]) Social History Tobacco UseTypesPacks/DayYears UsedDateSmoking Tobacco: FormerCigarettes0.55 Smokeless Tobacco: NeverAlcohol UseStandard Drinks/WeekCommentsNever0 (1 standard drink = 0.6 oz pure alcohol)caffeine: 1-2 cups coffee or energy drink [id number] Health LiteracyAnswerDate RecordedHow often do you need [...] 09/24/2023How often do you attend pentecostalism or restorationist services?Patient declined 09/24/2023o you belong to any [...] heating?Not hard at all09/24/2023HQ-2AnswerDate RecordedPatient Health Questionnaire-2 [id number] [place] of Occupational Health - Occupational Stress QuestionnaireAnswerDate [...] homeless or living in a custodial (including now)?No09/24/2023 Estimated Date of MbxepebyElnhzrdzPer40/14/2025ased on last menstrual period of 06/19/2024Sex and Gender InformationValueDate RecordedSex Assigned at BirthNot on fileLegal SlkDkuxga36/15/2023 6:40 PM EDTGender IdentityNot on file Sexual OrientationNot on filedocumented as of this encounter Last Filed Vital Signs Vital SignReadingTime TakenCommentsBlood Abmlgrlu247/8203/08/2025 1:52 PM EST Pulse--Temperature--Respiratory Rate--Oxygen Saturation--Inhaled Oxygen Concentration--Ayavyf88.5 kg (184 lb)03/08/2025 1:52 PM ESTHeight--Body Mass Index28.8204 8:15 AM EDTdocumented in this encounter Progress Notes * Ana Mcintosh, CLIFFORD - 03/08/2025 1:50 PM EST Reason for Appointment: Patient ID: Sarah Belcher is a 30 y.o. female who presents for Routine Visit [...] 09/06/2022 Bipolar affective disorder, currently depressed, moderate ([facility]) 09/06/2022 Complication of intrauterine device (IUD) 09/06/2022 Inattention 09/06/2022 Irregular menses 09/06/2022 Irritable bowel syndrome with diarrhea 09/06/2022 Menstrual cramp 09/06/2022 Pain in pelvis 09/06/2022 Generalized anxiety disorder 09/06/2022 Post-traumatic stress disorder 09/06/2022 Slow transit constipation 09/06/2022 Anxiety during ([facility]) 03/26/2020 Depression affecting ([facility]) 03/26/2020 History of chlamydia 03/26/2020 Bacterial infection due to mycoplasma 02/15/2024 Vaginal odor 02/15/2024 Urinary tract infection without hematuria 02/15/2024 Bacterial vaginosis 02/15/2024 Bladder pain 07/18/2024 Calculus of kidney 07/25/2013 Gross hematuria 07/18/2024 Resolved Ambulatory Problems Diagnosis Date Noted No Resolved Ambulatory Problems Past Medical History: Diagnosis Date ADHD (attention deficit hyperactivity disorder) Bipolar disorder (manic depression) ([facility]) BMI 24.0-24.9, adult Chicken pox 2007 Headache IBS (irritable bowel syndrome) Intrauterine device surveillance Pelvic pain Urinary tract infection HISTORY PAST MEDICAL HISTORY SOCIAL HISTORY Past Medical History: Diagnosis Date ADHD (attention deficit hyperactivity disorder) Adjustment disorder with mixed anxiety and depressed mood Amenorrhea Anxiety Bipolar disorder (manic depression) ([facility]) BMI 24.0-24.9, adult Chicken pox 2007 [...] SMEAR 05/21/2021 negative WISDOM TOOTH EXTRACTION 2015 [place] teeth REVIEW OF SYSTEMS Review of Systems: [...] nursing note reviewed. Exam conducted with a senior product development scientist present. Vitals: Estimated body mass index is 28.82 kg/m?? as calculated from the following: Height as of 07/18/24: 5' 7 . Weight as of this encounter: 184 lb. BP: 120/82 Patient's last menstrual period was 06/19/2024. Assessment/Plan ICD-10-CM 1. Third trimester ([facility]) Z34.93 POCT urinalysis dipstick manually resulted 2. 37 weeks gestation of ([facility]) Z3A.37 Assessment/Plan Return OB: Patient presents today for a routine obstetrics appointment. Patient is currently 37w3d . Patient states she is doing well but has complaints of being tired due to current . Patient has verbalizes frequent movement. labor precautions was discussed/given and patient was instructed to perform kick counts three times a day. Orders Placed This Encounter Procedures POCT urinalysis dipstick manually resulted Follow Up: Patient is to return to office in 1 week for routine OB appointment. Documented by Ana Mcintosh LPN on behalf of: Jsoe Pan DO documented in this encounter Plan of Treatment Not on file documented as of this encounter Procedures Procedure NamePriorityDate/TimeAssociated DiagnosisCommentsPOCT URINALYSIS LJMAGDSBGduizqf44/26/2025 1:56 PM EST Third trimester ([facility]) documented in this encounter Results * POCT urinalysis dipstick manually resulted (03/08/2025 1:56 PM EST)Component ValueRef RangeTest MethodAnalysis TimePerformed AtPathologist SignatureColor, UAYellowClarity, UAClearGlucose, UANegativeNegative - 2000(110) ++++ mg/dL Bilirubin, UANegativeNegative - 4(70) +++ mg/dLKetones, UANegativeNegative - 160(16) ++++ mg/dLSpec Grav, UA1.0151 - 1.03Blood, UANegativeNegative - 50 Allen/mcLpH, UA6.55 - 9Protein, UANegativeNegative - 2000(20) ++++ mg/dL Urobilinogen, UA0.20.2 - 12 mg/dLLeukocytes, UANegativeNegative - 500+++ Andrei/mcLNitrite, UANegativeNegative - PositiveSpecimen (Source)Anatomical Location / LateralityCollection Method / VolumeCollection TimeReceived Time Urine03/08/2025 1:56 PM EST Narrative Authorizing ProviderResult TypeResult StatusCorematthieu Pan DOPOINT OF CARE TEST ENTER/EDIT ORDERABLESFinal Result documented in this encounter Visit Diagnoses Diagnosis Third trimester ([facility]) state, incidental 37 weeks gestation of ([facility]) documented in this encounter Care Teams Team MemberRelationshipSpecialtyStart DateEnd Date Sri Ramírez MD [address] [place] [address] PCP - GeneralFamily Medicine09/19/22 [place] [address] [place] [phone] Referring Physician09/19/22documented as of this encounter
--- OUTSIDE RECORDS SUMMARY | 2025-03-14 14:30 | XMS_ITS | Encounter Summary ---
Author Organization [facility] Address [address] [place] [address] Care Team Providers Care Physician Neonatology Name Role Phone Sri Ramírez MD Primary Care Provider [phone] Kayla Kahn DO Unavailable [phone] Reason for Visit * ReasonCommentsRoutine Visit Encounter Details DateTypeDepartmentCare Team (Latest Contact Info)Nefnmyzmhvr00/02/2025 2:30 PM ESTRoutine [facility] [address] [place] [phone] Jose Pan DO [address] [place], [place] [phone] 38 weeks gestation of ([facility]); Third trimester ([facility]) Social History Tobacco UseTypesPacks/DayYears UsedDateSmoking Tobacco: FormerCigarettes0.55 Smokeless Tobacco: NeverAlcohol UseStandard Drinks/WeekCommentsNever0 (1 standard drink = 0.6 oz pure alcohol)caffeine: 1-2 cups coffee or energy drink [id number] Health LiteracyAnswerDate RecordedHow often do you need [...] a week 09/24/2023How often do you attend temple or sabianist services?Patient declined 09/24/2023o you belong to any clubs or organizations such as temple groups, unions, fraternal or athletic groups, or school groups?No09/24/2023How often do you attend meetings of the clubs or organizations you belong to?Never09/24/2023 Are you , , , , never , or living with a partner?Patient kfihchol94/13/2024UDIT-CAnswerDate RecordedQ1: How often do you have a [...] heating?Not hard at all09/24/2023HQ-2AnswerDate RecordedPatient Health Questionnaire-2 Eehrv622Finheber [facility] [place] of Occupational Health - Occupational Stress QuestionnaireAnswerDate [...] in a [place] health care facility (including now)?No09/24/2023 Estimated Date of XfqpetptWbpoxhkwEfd41/14/2025ased on last menstrual period of 06/19/2024Sex and Gender InformationValueDate RecordedSex Assigned at BirthNot on fileLegal DxjXxwfic77/15/2023 6:40 PM EDTGender IdentityNot on file Sexual OrientationNot on filedocumented as of this encounter Last Filed Vital Signs Vital SignReadingTime TakenCommentsBlood Fccwbsag971/8203/14/2025 2:43 PM EST Pulse--Temperature--Respiratory Rate--Oxygen Saturation--Inhaled Oxygen Concentration--Bvixrd71.6 kg (182 lb 1.9 oz)03/14/2025 2:43 PM ESTHeight--Body Mass Index28.5204 8:15 AM EDTdocumented in this encounter Progress Notes * Ana Mcintosh, OIL CHANGE TECHNICIAN - 03/14/2025 2:30 PM EST Reason for Appointment: Patient ID: Sarah Belcher is a 30 y.o. female who presents for Routine Visit Patient presents today for Return OB appointment. MEDICATIONS Current Outpatient Medications Medication Instructions Multiple Vitamin (multivitamin) tablet 1 tablet, Daily ALLERGIES Allergies Allergen Reactions Bacitracin-Polymyxin B [...] Slow transit constipation 09/06/2022 Anxiety during ([facility]) 03/26/2020 Depression affecting ([facility]) 03/26/2020 History of chlamydia 03/26/2020 Bacterial infection due to mycoplasma 02/15/2024 Vaginal odor 02/15/2024 Urinary tract infection without hematuria 02/15/2024 Bacterial vaginosis 02/15/2024 Bladder pain 07/18/2024 Calculus of kidney 07/25/2013 Gross hematuria 07/18/2024 Resolved Ambulatory Problems Diagnosis Date Noted No Resolved Ambulatory Problems Past Medical History: Diagnosis Date ADHD (attention deficit hyperactivity disorder) Bipolar disorder (manic depression) ([facility]) BMI 24.0-24.9, adult Chicken pox 2007 Headache IBS (irritable bowel syndrome) Intrauterine device surveillance Pelvic pain Urinary tract infection HISTORY PAST MEDICAL HISTORY SOCIAL HISTORY Past Medical History: Diagnosis Date ADHD (attention deficit hyperactivity disorder) Adjustment disorder with mixed anxiety and depressed mood Amenorrhea Anxiety Bipolar disorder (manic depression) ([facility]) BMI 24.0-24.9, adult Chicken pox 2007 [...] SMEAR 05/21/2021 negative WISDOM TOOTH EXTRACTION 2015 [place] teeth REVIEW OF SYSTEMS Review of Systems: [...] nursing note reviewed. Exam conducted with a bioinformatics developer present. Vitals: Estimated body mass index is 28.52 kg/m?? as calculated from the following: Height as of 07/18/24: 5' 7 . Weight as of this encounter: 182 lb 1.9 oz. BP: 122/82 Patient's last menstrual period was 06/19/2024. Assessment/Plan ICD-10-CM 1. 38 weeks gestation of ([facility]) Z3A.38 POCT urinalysis dipstick manually resulted 2. Third trimester ([facility]) Z34.93 POCT urinalysis dipstick manually resulted Assessment/Plan Return OB: Patient presents today for a routine obstetrics appointment. Patient is currently 38w2d . Patient states she is doing well [...] this encounter Procedures Procedure NamePriorityDate/TimeAssociated DiagnosisCommentsPOCT URINALYSIS VKVEBELUZyqnkek74/02/2025 2:53 PM EST 38 weeks gestation of ([facility]) Third trimester ([facility]) documented in this encounter Results * POCT urinalysis dipstick manually resulted (03/14/2025 2:53 PM EST)Component ValueRef RangeTest MethodAnalysis TimePerformed AtPathologist SignatureColor, UAYellowClarity, UAClearGlucose, UANegativeNegative - 2000(110) ++++ mg/dL Bilirubin, UANegativeNegative - 4(70) +++ mg/dLKetones, UANegativeNegative - 160(16) ++++ mg/dLSpec Grav, UA1.0051 - 1.03Blood, UANegativeNegative - 50 Allen/mcLpH, UA6.05 - 9Protein, UANegativeNegative - 2000(20) ++++ mg/dL Urobilinogen, UA1.00.2 - 12 mg/dLLeukocytes, UANegativeNegative - 500+++ Andrei/mcLNitrite, UANegativeNegative - PositiveSpecimen (Source)Anatomical Location / LateralityCollection Method / VolumeCollection TimeReceived Time Urine03/14/2025 2:53 PM EST Narrative Authorizing ProviderResult TypeResult StatusCorematthieu Pan DOPOINT OF CARE TEST ENTER/EDIT ORDERABLESFinal Result documented in this encounter Visit Diagnoses Diagnosis 38 weeks gestation of ([facility]) Third trimester ([facility]) state, incidental documented in this encounter Care Teams Team MemberRelationshipSpecialtyStart DateEnd Date Sri Ramírez MD [address] [place] [address] PCP - GeneralFamily Medicine09/19/22 [place] [address] [place] [phone] Referring Physician09/19/22documented as of this encounter
--- OUTSIDE RECORDS SUMMARY | 2025-03-20 15:00 | XMS_ITS | Encounter Summary ---
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 Name Role Phone Sri Ramírez MD Primary Care Provider [phone] Kayla Kahn DO Unavailable [phone] Reason for Visit * ReasonCommentsRoutine Visit Encounter Details DateTypeDepartmentCare Team (Latest Contact Info)Fmzkxxrnkok11/08/2025 3:00 PM ESTRoutine [facility] [address] [place] [address] Jose Pan DO [address] [place] [address] Third trimester ([facility]); 39 weeks gestation of ([facility]) Social History Tobacco UseTypesPacks/DayYears UsedDateSmoking Tobacco: FormerCigarettes0.55 Smokeless Tobacco: NeverAlcohol UseStandard Drinks/WeekCommentsNever0 (1 standard drink = 0.6 oz pure alcohol)caffeine: 1-2 cups coffee or energy drink [id number] Health LiteracyAnswerDate RecordedHow often do you need [...] a week 09/24/2023How often do you attend hindu or lutheran services?Patient declined 09/24/2023o you belong to any clubs or organizations such as hindu groups, unions, fraternal or athletic groups, or school groups?No09/24/2023How often do you attend meetings of the clubs or organizations you belong to?Never09/24/2023 Are you , , , , never , or living with a partner?Patient jrabdqly90/13/2024UDIT-CAnswerDate RecordedQ1: How often do you have a [...] heating?Not hard at all09/24/2023HQ-2AnswerDate RecordedPatient Health Questionnaire-2 Ejbqg693Finlog[facility] [place] of Occupational Health - Occupational Stress QuestionnaireAnswerDate [...] were you homeless or living in a care home (including now)?No09/24/2023 Estimated Date of XkbxepcbPwgnakchQhe57/14/2025ased on last menstrual period of 06/19/2024Sex and Gender InformationValueDate RecordedSex Assigned at BirthNot on fileLegal EoxGizaii70/15/2023 6:40 PM EDTGender IdentityNot on file Sexual OrientationNot on filedocumented as of this encounter Last Filed Vital Signs Vital SignReadingTime TakenCommentsBlood Ubabucrt609/5803/20/2025 3:35 PM EST Pulse--Temperature--Respiratory Rate--Oxygen Saturation--Inhaled Oxygen Concentration--Ijoele77.9 kg (185 lb)03/20/2025 3:35 PM ESTHeight--Body Mass Index28.9804 8:15 AM EDTdocumented in this encounter Progress Notes * ALISA Coyle - 03/20/2025 3:00 PM EST Reason for Appointment: Patient ID: [...] 09/06/2022 Slow transit constipation 09/06/2022 Anxiety during ([facility]) 03/26/2020 Depression affecting ([facility]) 03/26/2020 History of chlamydia 03/26/2020 Bacterial infection due to mycoplasma 02/15/2024 Vaginal odor 02/15/2024 Urinary tract infection without hematuria 02/15/2024 Bacterial vaginosis 02/15/2024 Bladder pain 07/18/2024 Calculus of kidney 07/25/2013 Gross hematuria 07/18/2024 Resolved Ambulatory Problems Diagnosis Date Noted No Resolved Ambulatory Problems Past Medical History: Diagnosis Date ADHD (attention deficit hyperactivity disorder) Bipolar disorder (manic depression) ([facility]) BMI 24.0-24.9, adult Chicken pox 2007 Headache IBS (irritable bowel syndrome) Intrauterine device surveillance Pelvic pain Urinary tract infection HISTORY PAST MEDICAL HISTORY SOCIAL HISTORY Past Medical History: Diagnosis Date ADHD (attention deficit hyperactivity disorder) Adjustment disorder with mixed anxiety and depressed mood Amenorrhea Anxiety Bipolar disorder (manic depression) ([facility]) BMI 24.0-24.9, adult Chicken pox [...] SMEAR 05/21/2021 negative WISDOM TOOTH EXTRACTION 2015 [place] teeth REVIEW OF SYSTEMS Review of Systems: [...] reviewed. Vitals: Estimated body mass index is 28.98 kg/m?? as calculated from the following: Height as of 07/18/24: 5' 7 . Weight as of this encounter: 185 lb. BP: 112/58 Patient's last menstrual period was 06/19/2024. Assessment/Plan ICD-10-CM 1. Third trimester ([facility]) Z34.93 2. 39 weeks gestation of ([facility]) Z3A.39 POCT urinalysis dipstick manually resulted Assessment/Plan Return OB: Patient presents today for a routine obstetrics appointment. Patient is currently 39w1d . Patient states she is doing well [...] Documented by ALISA Coyle on behalf of: Jose Pan DO documented in this encounter Plan of Treatment Not on file documented as of this encounter Procedures Procedure NamePriorityDate/TimeAssociated DiagnosisCommentsPOCT URINALYSIS ANVMOQKJCxvuikj42/08/2025 3:41 PM EST 39 weeks gestation of ([facility]) documented in this encounter Results * POCT urinalysis dipstick manually resulted (03/20/2025 3:41 PM EST)Component ValueRef RangeTest MethodAnalysis TimePerformed AtPathologist SignatureColor, UAYellowClarity, UAClearGlucose, UANegativeNegative - 1999(110) ++++ mg/dL Bilirubin, UANegativeNegative - 4(70) +++ mg/dLKetones, UANegativeNegative - 160(16) ++++ mg/dLSpec Grav, UA1.0101 - 1.03Blood, UANegativeNegative - 50 Allen/mcLpH, UA6.55 - 9Protein, UANegativeNegative - 2000(20) ++++ mg/dL Urobilinogen, UA1.00.2 - 12 mg/dLLeukocytes, UANegativeNegative - 500+++ Andrei/mcLNitrite, UANegativeNegative - PositiveSpecimen (Source)Anatomical Location / LateralityCollection Method / VolumeCollection TimeReceived Time Urine03/20/2025 3:41 PM EST Narrative Authorizing ProviderResult TypeResult StatusCorey Maxim DOPOINT OF CARE TEST ENTER/EDIT ORDERABLESFinal Result documented in this encounter Visit Diagnoses Diagnosis Third trimester ([facility]) state, incidental 39 weeks gestation of ([facility]) documented in this encounter Care Teams Team MemberRelationshipSpecialtyStart DateEnd Date Sri Ramírez MD [address] [place] [address] PCP - GeneralFamily Medicine09/19/22 [place] [address] [place] [phone] Referring Physician09/19/22documented as of this encounter
[2025-03-21] VITALS (29 sets, daily range): BP systolic 114–162; BP diastolic 58–99; PULSE 68–126; TEMP 36.3–36.7
--- OUTSIDE RECORDS SUMMARY | 2025-03-21 05:24 | XMS_ITS | CCD ---
Author Organization [facility] Care Team Providers Care Head Usher Name Role Phone Desiree DILLON Sri Mera Primary Care Provider JASON BRADLEY Referring Unavailable DESIREE, SRI Mera Primary Care Unavailable PARSELLJASON Referring Unavailable DESIREE, SRI Samaria Primary Care Unavailable JASON BRADLEY Referring Unavailable DESIREE, SRI Mera Primary Care Unavailable JASON BRADLEY Referring Unavailable DESIREE, SRI Mera Primary Care Unavailable DESIREE, DR BAER Primary Care Unavailable BK DENT Admitting Unavailable BK DENT Attending Unavailable ALISA MOULTON Consulting Unavailable MAXIM, DR WESTON Admitting Unavailable MAXIM, DR WESTON Attending Unavailable DESIREE, DR BAER Primary Care Unavailable MAXIM, DR WESTON Consulting Unavailable DESIREE, SRI Samaria Primary Care Unavailable DILCIA LAZO Attending Unavailable Desiree DILLON Sri Samaria Primary Care Provider Femi ROQUE, Kayla R Unavailable Sharifa-Nossek HOUSEHOLD ASSISTANT-PUBLIC AFFAIRS DIRECTORDaisy M Unavailable DESIREE SRI Mera Primary Care Physician Femi ROQUE, Kayla R Unavailable Bonita Pinedo Attending Unavailable Bonita Pinedo Attending Unavailable Mitra Ellis Attending Unavailable Mitra Ellis Admitting Unavailable Femi ROQUE Kayla R Unavailable Bonita Pinedo Attending Unavailable JONAH GOMEZ Attending Unavailable JONAH GOMEZ Attending Unavailable JONAH GOMEZ Attending Unavailable Sharifa-Nossek HOUSEHOLD ASSISTANT-PUBLIC AFFAIRS DIRECTOR, Daisy M Unavailable DAJA RYAN Attending Unavailable [...] / Polymyxin B; Translations: [bacitracin-polymyxin B topical]Drug Pztcbod08-92-8487Sdrieqx (qualifier value)[facility] (20 sources)busPIRone; Translations: [buspirone]Drug Ccmqyrq17-56-7437Slamgva, Anxiety (finding)[facility] (20 sources)Escitalopram; Translations: [escitalopram]Drug Ezlxhye51-15-1242 Other, Drowsy (finding)[facility] (2 sources)busPIRone; Translations: [BuSpar][facility] (2 sources)Escitalopram; Translations: [Lexapro][facility]rug [facility] (2 sources)Bacitracin-Polymyxin; Translations: [Bacitracin-Polymyxin]Propensity to adverse reactions (disorder)[facility] Repository Medications Current Medications MedicationDrug Class(es)DatesSig (Normalized)Sig (Original)azelaic acid 0.15 mg/mg topical gel (18 sources)Start: 12-05-2024 End: 22-59-6747jdgeysa acid (Finacea) 15 % gel Indications: Acne, unspecified acne type Apply 1 application topically in the morning and 1 application before bedtime. 60 g 11 12/05/2024 12/05/2025 Activecephalexin 500 mg oral capsule (3 sources)Cephalosporin AntibacterialStart: 06-10-2024 End: 67-80-7547dmyzrhomen (Keflex) 500 MG capsule Indications: Cellulitis of finger of right hand Take 1 capsule (500 mg) by mouth in the morning and 1 capsule (500 mg) at noon and 1 capsule (500 mg) in the eveningand 1 capsule (500 mg) before bedtime. Do all this for 7 days. 28 capsule 06/10/2024 06/17/2024 ActiveClindamycin (1 source)Lincosamide AntibacterialStart: 03-09-2024 End: 56-73-5591Bpqqljbccvx Phosphate (Xaciato) 2 % gel Indications: Bacterial vaginosis Insert 1 applicator into the vagina at bedtime for 1 day 8 g 03/09/2024 03/10/2024 Activedoxycycline hyclate 100 mg oral capsule (9 sources)Tetracycline-class DrugStart: 02-15-2024 End: 57-84-3373sxkmjapipid (Vibramycin) 100 MG capsule Indications: Bacterial infection due to mycoplasma Take 1 capsule (100 mg) by mouth in the morning and 1 capsule (100 mg) before bedtime. Do all this for 7 days. Take with at least 8 ounces (large glass) of water, do not lie down for 30 minutes after. 14 capsule 02/15/2024 02/22/2024 ActiveStart: 01-11-2024 End: 71-68-6970zmkleuqjneu (Vibramycin) 100 MG capsule Indications: Pelvic pain in female Take 1 capsule (100 mg) by mouth in the morning and 1 capsule (100 mg) before bedtime. Take with at least 8 ounces (large glass) of water, do not lie down for 30 minutes after. 60 capsule 01/11/2024 2024 Activeescitalopram 5 mg oral tablet (4 sources)Serotonin Reuptake InhibitorStart: 93-15-4975wxtppdtlxqha (LEXAPRO) 5 MG tabletmetroNIDAZOLE 500 mg oral tablet (12 sources)Nitroimidazole AntimicrobialStart: 02-09-2025 End: 13-48-5742nuyq 1 tablet by mouth in the morningmetroNIDAZOLE (Flagyl) 500 MG tablet Indications: BV (bacterial vaginosis) Take 1 tablet (500 mg) by mouth in the morning and 1 tablet (500 mg) before bedtime. Do all this for 7 days. Do not drink alcohol while taking this medication. 14 tablet 02/09/2025 02/16/2025 ActiveStart: 05-23-2024 End: 84-23-7401gcpksPAEUXPFL (Nuvessa) 1.3 % gel Indications: Vaginal discharge , Vaginal burning Insert 5 g into the vagina 1 time for 1 dose 5 g 05/23/2024 05/23/2024 Discontinued (Other)Start: 03-09-2024 End: 25-16-7365mjbgfDTQVTDWX (Metrogel) 0.75 % vaginal gel Indications: Bacterial vaginosis Insert into the vaginaDaily for 5 days 70 g 03/09/2024 03/14/2024 ActiveStart: 2024 End: 74-15-6073ftap 1 tablet by mouth in the morningmetroNIDAZOLE (Flagyl) 500 MG tablet Indications: BV (bacterial vaginosis) Take 1 tablet (500 mg) by mouth in the morning and 1 tablet (500 mg) before bedtime. Do all this for 7 days. Do not drink alcohol while taking this medication. 14 tablet 2024 02/17/2024 ActiveStart: 01-13-2024 End: 31-02-6496lkkn 1 tablet by mouth in the morningmetroNIDAZOLE (Flagyl) 500 MG tablet Indications: BV (bacterial vaginosis) Take 1 tablet (500 mg) by mouth in the morning and 1 tablet (500 mg) before bedtime. Do all this for 7 days. Do not drink alcohol while taking this medication. 14 tablet 01/13/2024 01/27/2024 Discontinuedmoxifloxacin 400 mg oral tablet (2 sources)Quinolone AntimicrobialStart: 02-15-2024 End: 32-40-3163faon 1 tablet by mouth once dailymoxifloxacin (Avelox) [...] oral capsule (2 sources)Nitrofuran AntibacterialStart: 09-13-2024 End: 55-11-9819tgtu 1 capsule by mouth in the morningnitrofurantoin, macrocrystal-monohydrate, (Macrobid) 100 MG capsule Indications: Urinary tract infection in mother during , antepartum Take 1 capsule (100 mg) by mouth in the morning and 1 capsule (100 mg) before bedtime. Do all this for 7 days. 14 capsule 09/13/2024 09/20/2024 Activeondansetron 4 mg disintegrating oral tablet (20 sources)Serotonin-3 Receptor AntagonistStart: 27-31-1462myhuxwjshpa ODT (Zofran-ODT) 4 MG disintegrating tablet DISSOLVE 1 TABLET on tongue EVERY 8 HOURS NEEDED FOR NAUSEA & FOR VOMITING 08/13/2024 Activepolyethylene glycol 3350 73103 mg powder for oral solution (4 sources)Osmotic LaxativeStart: 06-12-2021 End: 70-04-0931evnszynsdyii glycol (GLYCOLAX) 17 GM/SCOOP powder Take 17 g by mouth daily 1530 g 1 06/12/2021 07/12/2021 Activetamsulosin hydrochloride 0.4 mg oral capsule (4 sources)alpha-Adrenergic BlockerStart: 65-06-3549eojn 1 capsule by mouth once dailytamsulosin (FLOMAX) 0.4 MG capsule Take 1 capsule by mouth daily 30 capsule 0 06/12/2021 Activeterconazole 4 mg/ml vaginal cream (2 sources)Azole AntifungalStart: 02-09-2025 End: 33-39-1369cokseuhqlkf (Terazol 7) 0.4 % vaginal cream Indications: Yeast infection Insert 1 applicator into the vagina at bedtime for 7 days 45 g 02/09/2025 02/16/2025 Activeubidecarenone 30 mg oral capsule (20 sources)take 1 capsule by mouth once dailyco-enzyme Q-10 30 MG capsule Take 30 mg by mouth Daily Active Completed/Discontinued Medications MedicationDrug Class(es)DatesSig (Normalized)Sig (Original)atomoxetine 40 mg oral capsule (3 sources)Norepinephrine Reuptake Inhibitor End: 80-68-9798qmlt 1 capsule by mouth once dailyatomoxetine (Strattera) 40 MG capsule Take 1 capsule by mouth Daily 01/11/2024 Discontinued (Other) azithromycin 500 mg oral tablet (8 sources)Macrolide AntimicrobialStart: 02-15-2024 End: 60-38-7786spsu 1 tablet by mouth once dailyazithromycin (Zithromax) 500 MG tablet Indications: Bacterial infection due to mycoplasma Day 1: Take 2 tablets PO onetime dose; Day 2,3,4: Take 1 tablet daily 5 tablet 02/15/2024 04/20/2024 Discontinued (Therapy completed)sertraline 25 mg oral tablet (3 sources)Serotonin Reuptake InhibitorStart: 11-16-2023 End: 83-66-0721omgg 1 tablet by mouth once dailysertraline (Zoloft) 25 MG tablet Indications: Generalized anxiety disorder (CMS/HCC) Take 1 tablet (25 mg) by mouth Daily 30 tablet 1 11/16/2023 01/11/2024 Discontinued (Other) Problems Active Problems Problem ClassificationProblemDateDocumented DateEpisodic/ChronicAdjustment disorders (20 sources)Adjustment disorder with mixed anxiety and depressed mood; Translations: [Adjustment disorder with mixed anxiety and depressed mood]Onset: 619534-06-5593TqhamyiMfmtbjnc reactions (1 source)Unspecified contact dermatitis, unspecified cause; Translations: [[facility] CONTACT DERMATITIS UNS CAUSE]Onset: 76-77-0363MnqxhrlkWqrsqxv disorders (20 sources)Anxiety; Translations: [Anxiety disorder, unspecified]Onset: 222909-61-6784SxhvdztOpppxydpdhwkd and screening for infectious disease (3 sources)Encounter for screening for human papillomavirus (HPV); Translations: [Patient encounter status]Onset: 587932-37-6044PmylyyinJoqdckaqu disorders (20 sources)Amenorrhea; Translations: [Amenorrhea, unspecified]Onset: 09-06-2022 46-30-6923NhuvzvpThdp disorders (20 sources)Bipolar affective disorder, currently depressed, moderate; Translations: [Bipolar disorder, currentepisode depressed, moderate]Onset: 248863-90-9391OwxgzylThszxhbklxjt breast conditions (2 sources)Lump in lower outer quadrant of left breast; Translations: [Unspecified lump in the left breast, lower outer quadrant]61-47-8544Yaaizukp Other aftercare (2 sources)Surgical follow-up; Translations: [Encounter for follow-up examination after completed treatment for conditions other than malignant neoplasm]59-39-6264IcurfyrgWwlcb aftercare (2 sources)Removal of sutures done; Translations: [Encounter for removal of sutures]28-83-5669XwgcgfdeCrest complications of (2 sources)Urinary tract infection in ; Translations: [Unspecified infection of urinary tract in , unspecified trimester]09-13-2024 EpisodicOther complications of (2 sources) size does not accord with dates; Translations: [Uterine size- date discrepancy, unspecified trimester]69-25-0767EcpmcndhLcjrh diseases of kidney and ureters (3 sources)Hydronephrosis; Translations: [Hydronephrosis with renal and ureteral calculous obstruction]EpisodicOther female genital disorders (2 sources)Vaginal discharge; Translations: [Other specified noninflammatory disorders of vagina]91-71-9172GwtgcuylLsbdf female genital disorders (2 sources)Burning sensation of vagina; Translations: [Other specified conditions associated with female genital organs and menstrual cycle]05-23-2024 EpisodicOther gastrointestinal disorders (20 sources)Irritable bowel syndrome with diarrhea; Translations: [Irritable bowel syndrome with diarrhea]Onset: 895720-77-9262KmdtfwuAfpcg inflammatory condition of skin (3 sources)Pruritus, unspecified; Translations: [PRURITUS UNSPECIFIED]Onset: 52-81-0335CvilekmgCnppk nervous system disorders (20 sources)Inattention; Translations: [Attention and concentration deficit] Onset: 592255-38-6800BffiiirIhgjb nervous system disorders (2 sources)Choroid plexus cyst; Translations: [Cerebral cysts]38-68-8655Lqwftmq Other and delivery including normal (20 sources); Translations: [Encounter for supervision of normal , unspecified, unspecified trimester]08-48-5412FgwzdkysSquke screening for suspected conditions (not mental disorders or infectious disease) (14 sources)Encounter for screening for malignant neoplasm of cervix; Translations: [Patient encounter status]Onset: 15-88-5095ApgtisxrVfhmq skin disorders (2 sources)Acne; Translations: [Acne, unspecified]82-98-0985EhaqevcsCddkndaa codes; unclassified (2 sources)Gestation period, 12 weeks; Translations: [12 weeks gestation of ]18-94-5863XocpjjxpDyfzolqp codes; unclassified (2 sources)Gestation period, 14 weeks; Translations: [14 weeks gestation of ]98-42-6810ZzyerheeTqhmwoiw codes; unclassified (2 sources)Gestation period, 16 weeks; Translations: [16 weeks gestation of ]38-49-5752YpbixznzIsrrfqdw codes; unclassified (2 sources)Gestation period, 20 weeks; Translations: [20 weeks gestation of ]11-10-7876CbixwmieQdtpgfpz codes; unclassified (2 sources)Gestation period, 24 weeks; Translations: [24 weeks gestation of ]32-10-0204VtfqxkdqXbqspbyg codes; unclassified (2 sources)Gestation period, 27 weeks; Translations: [27 weeks gestation of ]07-33-4648KiubbigvJvuxoymb codes; unclassified (2 sources)Gestation period, 29 weeks; Translations: [29 weeks gestation of ]58-81-2280MojcsqzcJzjriaum codes; unclassified (2 sources)Gestation period, 31 weeks; Translations: [31 weeks gestation of ]75-22-7419ZbsnhdjlRsdfresn codes; unclassified (2 sources)Gestation period, 33 weeks; Translations: [33 weeks gestation of ]52-48-7056CrjrcpriNipg and subcutaneous tissue infections (2 sources)Cellulitis of finger of right hand; Translations: [Cellulitis of right finger]19-79-7261HuclybfmVanlbkkdjqfi (12 sources)Pain in pelvis; Translations: [Pain in pelvis]Onset: 09-06-2022 09-06-2022 Past or Other Problems Problem ClassificationProblemDateDocumented DateEpisodic/ChronicAbdominal pain (20 sources)Suprapubic pain; Translations: [Pelvic and perineal pain]Onset: 80-00-8199JysfvvihVwumgyxya infection; unspecified site (20 sources)Mycoplasma infection; Translations: [Mycoplasma infection, unspecified site]Onset: 280986-26-3266HqjzulnaErdlcrbf of urinary tract (20 sources)Kidney stone; Translations: [Calculus of kidney]Onset: 07-25-2013 91-51-7527GrkhojdiGqvkqppxmlns of device; implant or graft (20 sources)Disorder of intrauterine contraceptive device; Translations: [Unspecified complication of genitourinary prosthetic device, implant and graft, initial encounter]Onset: 642834-34-4967QvscorfcDmlweggrpjvki symptoms and ill-defined conditions (20 sources)Dysuria; Translations: [Dysuria]Onset: 76-72-3960Bmsarnzv Inflammatory diseases of female pelvic organs (20 sources)Bacterial vaginosis; Translations: [Acute vaginitis]Onset: 328354-06-0613QyldxwxkHouai complications of (20 sources)Anxiety in ; Translations: [Other mental disorders complicating , unspecified trimester]Onset: EpisodicOther complications of (20 sources)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 ; Translations: [Other mental disorders complicating , unspecified trimester]Onset: 112663-26-2831GhcgnuxlVqvka complications of (20 sources)Other mental disorders complicating , unspecified trimester; Translations: [Mental disorders of mother, antepartum condition or complication]Onset: 217898-04-4596YkkgfhlwIvins female genital disorders (20 sources)Vaginal odor; Translations: [Other specified noninflammatory disorders of vagina]Onset: 405955-60-2442RldkibwzBlmnr gastrointestinal disorders (20 sources)Slow transit constipation; Translations: [Slow transit constipation] Onset: 012030-45-1266LamfiqdwPkdwz infections; including parasitic (20 sources)History of chlamydial infection; Translations: [Personal history of other infectious and parasitic diseases]Onset: 451725-19-6506Vgesfnws Urinary tract infections (20 sources)Cystitis, unspecified with hematuria; Translations: [Urinary tract infectious disease]Onset: 980714-83-1197Kepzuztk Results Test NameValueInterpretationReference RangeFacilityUS OB BPP W NON-STRESS on 13[place]88[place]61[place] [address] Ultrasound Report Signed Patient: FAHEEM BABB MR#: [id number] : 1995 Acct:[id number] Age/Sex: 30 / F ADM Date: Loc: [facility] 256-[address]: Jose Pan D.O. Ordering Physician: Jose Pan D.O. Date of Service: 02/15/25 Procedure(s): US OB BPP w non-stress Accession Number(s): [id number] cc: SRI RAMÍREZ ; Jose Pan D.O. The [place] [address] Patient Name: FAHEEM BABB MRN: [id number] date: 1995 Sex: F Assigned Patient Location: [facility] Current Patient Location: Accession/Order Number: [id number] Exam Date: 02/15/2025 14:44 Report Date: 02/16/2025 [...] 02/16/2025 9:04 AM Dictation Location: [place] [address] Electronically authenticated by: [id number] Y Date: 02/16/2025 09:04 Dictated By: Ana Michael M.D. Signed By: 02/16/25905 DD/ 3 TD/TT: Associate Professor Of Pathology:CHRISadiologmatthieu, Radiologist, - 02/16/2025 [place] [address] Ultrasound Report Signed Patient: FAHEEM BABB MR#: [id number] : 1995 Acct:[id number] Age/Sex: 30 / F ADM Date: Loc: [facility] [address]: Jose Pan D.O. Ordering Physician: Jose Pan D.O. Date of Service: 02/15/25 Procedure(s): US OB BPP w non-stress Accession Number(s): [id number] cc: SRI RAMÍREZ ; Jose Pan D.O. The [place] [address] Patient Name: FAHEEM BABB MRN: [id number] date: 1995 Sex: F Assigned Patient Location: [facility] Current Patient Location: Accession/Order Number: [id number] Exam Date: 02/15/2025 14:44 Report Date: 02/16/2025 [...] 02/16/2025 9:04 AM Dictation Location: [place] [address] Electronically authenticated by: [id number] Y Date: 02/16/2025 09:04 Dictated By: Ana Michael M.D. Signed By: 02/16/25905 DD/ 3 TD/TT: Associate Professor Of Pathology: [facility] HOSPITALGabriella HealthcareRadiology Study observation (narrative)NOMS HealthcareUS OB BPP W NON-STRESSOrdered By: Radiologist Radiology on 14-62-4649AGNV [facility] Work Phone: tbh UA (CLEAN/CATCH) PUBLIC AFFAIRS DIRECTOR/MICRO IF IND.on 02-15-2025 BILIRUBIN URINENegativeNEGATIVENOMS HealthcareBLOOD URINENegativeNEGATIVENOMS HealthcareClarity (U)CLEARCLEARNOMS HealthcareColor (U)LT. YELLOWYELLOWNOMS HealthcareGLUCOSE URINE UANegativeNEGATIVE mg/dLNOKY HealthcareInterpretation and review of laboratory resultsAbnormalNOMS HealthcareKetones Ql (U)Negative NEGATIVE mg/dLNOMS HealthcareLeukocyte esterase Test strip Ql (U)TRACEAbnormal NEGATIVENOMS HealthcareNITRITE URINENegativeNEGATIVENOMS HealthcarepH (U)7.0 [pH]5.0 - 9.0NOMS HealthcarePROTEIN URINENegativeNEG/TRACE mg/dLNOMS Healthcare SPECIFIC GRAVITY URINE1.0101.005 - 1.025NOMS HealthcareURINE MICROSCOPIC INDICATEDYESNOMS HealthcareUROBILINOGEN URINE0.2 EU/dL0.2 - 1.0 EU/dLNOMS HealthcareCLINISYNCNOMS HealthcareUrinalysis macro (dipstick) panel (U)on 52-53-6029Gwrsxxbic, UANegativeNegative - 4(70) +++ mg/dLNOMS HealthcareBlood, UANegativeNegative [...] - 12 mg/dLNOMS HealthcareNOMS HealthcareUS OB GROWTHon 44-77-1753Ak[place] [address] Ultrasound Report Signed Patient: FAHEEM BABB MR#: [id number] : 1995 Acct:[id number] Age/Sex: 29 / F ADM Date: 02/01/25 Loc: US Attending Dr: Jose Pan D.O. Ordering Physician: Jose Pan D.O. Date of Service: 02/01/25 Procedure(s): US OB growth Accession Number(s): [id number] cc: SRI RAMÍREZ Corey D.O. The [place] [address] Patient Name: FAHEEM BABB MRN: [id number] date: 1995 Sex: F Assigned Patient Location: [place] Current Patient Location: Accession/Order Number: [id number] Exam Date: 02/01/2025 13:36 Report Date: 02/02/2025 [...] 02/02/2025 8:33 AM Dictation Location: [place] [address] Electronically authenticated by: [id number] Y Date: 02/02/2025 08:33 Dictated By: Ana Michael M.D. Signed By: 02/02/25834 DD/ 2 TD/TT: Associate Professor Of Pathology:TBHRadiology, Radiologist, MD - 02/02/2025 [place] [address] Ultrasound Report Signed Patient: FAHEEM BABB MR#: [id number] : 1995 Acct:[id number] Age/Sex: 29 / F ADM Date: 02/01/25 Loc: US Attending Dr: Jose Pan D.O. Ordering Physician: Jose Pan D.O. Date of Service: 02/01/25 Procedure(s): US OB growth Accession Number(s): [id number] cc: SRI RAMÍREZ Corey D.O. The [address] [address] Patient Name: FAHEEM BABB MRN: [id number] date: 1995 Sex: F Assigned Patient Location: [place] Current Patient Location: Accession/Order Number: [id number] Exam Date: 02/01/2025 13:36 Report Date: 02/02/2025 [...] Michael M.D. 02/02/2025 8:33 AM Dictation [facility] Electronically authenticated by: [id number] Y Date: 02/02/2025 08:33 Dictated By: Ana Michael M.D. Signed By: 02/02/25834 DD/ 2 TD/TT: Associate Professor Of Pathology: PABLITO MeyersRadiology Study observation (narrative)[facility] OB GROWTHOrdered By: Radiologist Radiology on 16-29-7773BVDKEllis [facility]ische[facility] Center Work Phone: US OB LIMITED 1+ FETUSESon 53-89-5464BF OB LIMITED 1+ FETUSESFINDINGS: Comparison made with [...] Delivery: 03/26/25 Gestational Age as of 01/24/2025: 47i5jYnzachsiie macro (dipstick) panel (U)on 14-60-4272Jukymeobu, UANegativeNegative - 4(70) +++ mg/dLNOMS HealthcareBlood, UANegativeNegative [...] mg/dLNOMS HealthcareNOMS HealthcareUrinalysis macro (dipstick) panel (U)on 68-82-2249Ulsckrnzw, UA NegativeNegative - 4(70) +++ mg/dLNOMS HealthcareBlood, [...] mg/dLNOMS HealthcareNOMS HealthcareUrinalysis macro (dipstick) panel (U)on 27-07-1712Rqjxwtlhv, UANegativeNegative - 4(70) +++ mg/dLNOMS HealthcareBlood, UANegativeNegative [...] - 12 mg/dLNOMS HealthcareNOMS HealthcareGLUCOSE 1 HOURon 51-12-7255Xaqyerx [Mass/Vol]124 mg/dL NINF - 130 mg/dLNOMS HealthcareCLINISYNCNOMS HealthcareUS for multiple gestation limitedon 21-89-2484[place]bw[place] [address] Ultrasound Report Signed Patient: FAHEEM BABB MR#: [id number] : 1995 Acct:[id number] Age/Sex: 29 / F ADM Date: 12/05/24 Loc: US Attending Dr: Jake Gunter Ordering Physician: Jake Gunter Date of Service: 12/05/24 Procedure(s): US OB follow up Accession Number(s): [id number] cc: SRI RAMÍREZ Kristina [address] [address] Patient Name: FAHEEM BABB MRN: [id number] date: 1995 Sex: F Assigned Patient Location: US Current Patient Location: US Accession/Order Number: [id number] Exam Date: 12/05/2024 13:08 Report Date: 12/05/2024 [...] Jr., D.O. 12/05/2024 2:33 PM Dictation Location: [place] [address] Electronically authenticated by: [id number] Y Date: 12/05/2024 14:33 Dictated By: Elpidio Brush M.D. Signed By: 12/05/246 DD/ 32 TD/TT: Associate Professor Of Pathology:TBHRadiology, Radiologist, MD - 12/05/2024 [place] [address] Ultrasound Report Signed Patient: FAHEEM BABB MR#: [id number] : 1995 Acct:[id number] Age/Sex: 29 / F ADM Date: 12/05/24 Loc: US Attending Dr: Jake Gunter Ordering Physician: Jake Gunter Date of Service: 12/05/24 Procedure(s): US OB follow up Accession Number(s): [id number] cc: SRI RAMÍREZ ; Jake Gunter The [address] [address] Patient Name: FAHEEM BABB MRN: [id number] date: 1995 Sex: F Assigned Patient Location: US Current Patient Location: US Accession/Order Number: [id number] Exam Date: 12/05/2024 13:08 Report Date: 12/05/2024 [...] Jr., D.O. 12/05/2024 2:33 PM Dictation Location: [place] [address] Electronically authenticated by: [id number] Y Date: 12/05/2024 14:33 Dictated By: Elpidio Brush M.D. Signed By: 12/05/24 143 DD/ 32 TD/TT: Associate Professor Of Pathology: [facility] HealthcareRadiology Study observation (narrative)[facility] HealthcareUS for multiple gestation limitedOrdered By: Radiologist Radiology on 75-53-2050VWVAEllis Fischel [facility] Center Work Phone: Urinalysis macro (dipstick) panel (U)on 12-05-2024 Bilirubin, UANegativeNegative - 4(70) +++ mg/dLNOMS HealthcareBlood, UANegative Negative - 50 Allen/mcLNOMS HealthcareClarity, UAClearNOMS HealthcareColor, UA YellowNOMS HealthcareGlucose, UANegativeNegative - 2000(110) ++++ mg/dLNOKY HealthcareInterpretation and review of laboratory resultsNormalNOMS Healthcare Ketones, UANegativeNegative - 160(16) ++++ mg/dLNOMS HealthcareLeukocytes, UA NegativeNegative - 500+++ Andrei/mcLNOMS HealthcareNitrite, UANegativeNegative - PositiveNOMS HealthcarepH, UA6.55 - 9NOMS HealthcareProtein, UANegativeNegative - 2000(20) ++++ mg/dLNOMS HealthcareSpec Grav, UA1.011 - 1.03NOMS Healthcare Urobilinogen, UA0.20.2 - 12 mg/dLNOMS HealthcareNOMS HealthcareNo Panel InformationOrdered By: Radiologist Radiology on 67-89-1054DKMZ [employer] Work Phone: No Panel Informationon 64-34-7777Ruhabiiez Study observation (narrative)PABLITO MeyersUS OB ANATOMYon 53-28-[address]47Y[address] [address] Ultrasound Report Signed Patient: FAHEEM BABB MR#: [id number] : 1995 Acct:[id number] Age/Sex: 29 / F ADM Date: 11/07/24 Loc: US Attending Dr: Jose Pan D.O. Ordering Physician: Jose Pan D.O. Date of Service: 11/07/24 Procedure(s): US OB anatomy Accession Number(s): [id number] cc: SRI RAMÍREZ ; Jose Pan D.O. The [address] [address] Patient Name: FAHEEM BABB MRN: [id number] date: 1995 Sex: F Assigned Patient Location: US Current Patient Location: US Accession/Order Number: [id number] Exam Date: 11/07/2024 12:17 Report Date: 11/07/2024 [...] all 4 extremities were surveyed by the dialysis social worker. 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 [...] 11/07/2024 12:24 PM Dictation Location: [place] [address] Electronically authenticated by: [id number] Y Date: 11/07/2024 12:24 Dictated By: Ana Michael M.D. Signed By: 11/07/24 1226 DD/ 1224 TD/TT: Associate Professor Of Pathology:TBHRadiology, Radiologist, - 11/07/2024 [place] [address] Ultrasound Report Signed Patient: FAHEEM BABB MR#: [id number] : 1995 Acct:[id number] Age/Sex: 29 / F ADM Date: 11/07/24 Loc: US Attending Dr: Jose Pan D.O. Ordering Physician: Jose Pan D.O. Date of Service: 11/07/24 Procedure(s): US OB anatomy Accession Number(s): [id number] cc: SRI RAMÍREZ ; Jose Pan D.O. The [address] [address] Patient Name: FAHEEM BABB MRN: [id number] date: 1995 Sex: F Assigned Patient Location: US Current Patient Location: US Accession/Order Number: [id number] Exam Date: 11/07/2024 12:17 Report Date: 11/07/2024 [...] all 4 extremities were surveyed by the dialysis social worker. 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 [...] 11/07/2024 12:24 PM Dictation Location: [place] [address] Electronically authenticated by: [id number] Y Date: 11/07/2024 12:24 Dictated By: Ana Michael M.D. Signed By: 11/07/24 1226 DD/ 1224 TD/TT: Associate Professor Of Pathology: PABLITO Germain OB CERVICAL LENGTHon 09-17-7394F[address] [address] Ultrasound Report Signed Patient: FAHEEM BABB MR#: [id number] : 1995 Acct:[id number] Age/Sex: 29 / F ADM Date: 11/07/24 Loc: US Attending Dr: Jose Pan D.O. Ordering Physician: Jose Pan D.O. Date of Service: 11/07/24 Procedure(s): US OB cervical length Accession Number(s): [id number] cc: SRI RAMÍREZ ; Jose Pan D.O. [place] [id number] Patient Name: FAHEEM BABB MRN: [facility]:[id number] date: 1995 Sex: F Assigned Patient Location: Current Patient Location: US Accession/Order Number: [id number] Exam Date: 11/07/2024 12:17 Report Date: 11/07/2024 [...] all 4 extremities were surveyed by the dialysis social worker. 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 [...] 11/07/2024 12:24 PM Dictation Location: [place] [address] Electronically authenticated by: [id number] Y Date: 11/07/2024 12:24 Dictated By: Ana Michael M.D. Signed By: 11/07/24 1226 DD/ 1224 TD/TT: Associate Professor Of Pathology:TBHRadiology, Radiologist, MD - 11/07/2024 [place] [address] Ultrasound Report Signed Patient: FAHEEM BABB MR#: [id number] : 1995 Acct:[id number] Age/Sex: 29 / F ADM Date: 11/07/24 Loc: US Attending Dr: Jose Pan D.O. Ordering Physician: Jose Pan D.O. Date of Service: 11/07/24 Procedure(s): US OB cervical length Accession Number(s): [id number] cc: SRI RAMÍREZ ; Jose Pan D.O. The [place] [id number] Patient Name: FAHEEM BABB MRN: [id number]:[id number] date: 1995 Sex: F Assigned Patient Location: US Current Patient Location: US Accession/Order Number: [id number] Exam Date: 11/07/2024 12:17 Report Date: 11/07/2024 [...] all 4 extremities were surveyed by the dialysis social worker. 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 [...] 11/07/2024 12:24 PM Dictation Location: [place] [address] Electronically authenticated by: [id number] Y Date: 11/07/2024 12:24 Dictated By: Ana Michael M.D. Signed By: 11/07/24 1226 DD/ 1224 TD/TT: Associate Professor Of Pathology: PABLITO MeyersUrinalysis macro (dipstick) panel (U)on 56-97-2921Pyrkavfta, UA NegativeNegative - 4(70) +++ mg/dLNOMS HealthcareBlood, UANegativeNegative - 50 Allen/mcLNOMS HealthcareClarity, UAClearNOMS HealthcareColor, UAYellowNOMS HealthcareGlucose, UANegativeNegative - 2000(110) ++++ mg/dLNOMS Healthcare Interpretation and review of laboratory resultsNormalNOMS HealthcareKetones, UA NegativeNegative - 160(16) ++++ mg/dLNOMS HealthcareLeukocytes, UANegative Negative - 500+++ Andrei/mcLNOMS HealthcareNitrite, UANegativeNegative - Positive NOMS HealthcarepH, UA65 - 9NOMS HealthcareProtein, UANegativeNegative - 2000(20) ++++ mg/dLNOKY HealthcareSpec Grav, UA1.0151 - 1.03NOKY HealthcareUrobilinogen, UA0.20.2 - 12 mg/dLNOCarondelet Health HealthcareAFP, SERUM, OPEN SPINA BIFIDA on 53-10-6266LKY MOM1.01.NOMKindred HospitalAFP VALUE52.0 ng/mL.[facility] COMMENT:Comment.[facility]ischel Cancer CenterComment on above:Alejandra Santiago, Ph.D., [facility] Director References: Available Upon Request. Multiples Of Median Cutoffs For AFP Elevations Mascorro 2.5 Black 2.8 IDD 2.0 Twins 4.5 Abbreviation Definitions IDD - Insulin Dep Diabetes OSBR - Open Spina Bifida Risk For further inquiries contact [employer] at [phone]. This test was developed and its performance characteristics determined by [employer]. It has not been cleared or approved by the Food and Drug Administration. Performed at: [facility] [address] [place], [place] [address] Commodities Broker: Halina Hill [facility], Phone: [phone] GEST. AGE ON COLLECTION DATE19.4. weeksNOSaint John's HospitalGESTAT. AGE BASED ONLMP. [facility]l Cancer CenterComment on above:Recalculations are not recommended when gestational dating by LMP and ultrasound are within 10 days. INSULIN DEP DIABETESNo.[facility] HealthcareINTERPRETATIONComment.[facility] Comment on above:Interpretation: Screen Negative This [...] Customer Services to discuss available options. The [employer] recommends amniocentesis be offered to women age 35 and older. MATERNAL AGE AT EDD28.1. yrNOKY HealthcareMULTIPLE GESTATIONNo.[facility] OSBR RISK 1 [id number].NOMS HealthcareRACECaucasian.[facility] HospitalRESULTSReport. [facility] Fischel Cancer CenterTEST RESULTS:Negative.NOMS UrjnvlenzdKPUGIM359. lbsNOMS HealthcarePREGNANCY N N LMP [id number] 1 16 N 1 Y 153 N N N N N White/ CLINISYNCNOKY HealthcareUrinalysis macro (dipstick) panel (U)on 10-10-2024 Bilirubin, UANegativeNegative - 4(70) +++ mg/dLNOMS HealthcareBlood, UANegative Negative - 50 Allen/mcLNOMS HealthcareClarity, UAClearNOMS HealthcareColor, UA YellowNOMS HealthcareGlucose, UANegativeNegative - 2000(110) ++++ mg/dLNOMS HealthcareInterpretation and review of laboratory resultsNormalNOKY Healthcare Ketones, UANegativeNegative - 160(16) ++++ mg/dLNOMS HealthcareLeukocytes, UA NegativeNegative - 500+++ Andrei/mcLNOMS HealthcareNitrite, UANegativeNegative - PositiveNOMS HealthcarepH, UA75 - 9NOMS HealthcareProtein, UANegativeNegative - 2000(20) ++++ mg/dLNOMS HealthcareSpec Grav, UA1.021 - 1.03NOMS Healthcare Urobilinogen, UA0.20.2 - 12 mg/dLNOKY HealthcareNOKY HealthcareRECURRENT VAGINITIS (HTRX)on 73-88-2014UJUPGOBZO MXZMKRB6HLNB HealthcareATOPOBIUM VAGINAE Not detectedNOMS HealthcareBVAB 2,3 (BACTERIAL VAGINOSIS ASSOCIATED BACTERIA 2, 3); MOBILUNCUS YQM2OTMN HealthcareBVAB 2,3 (BACTERIAL VAGINOSIS ASSOCIATED BACTERIA 2, 3); MOBILUNCUS SPPNot detectedNOMS HealthcareCANDIDA ALBICANS, PARAPSILOSIS, KAGHCBOOAL2YTMX HealthcareCANDIDA ALBICANS, PARAPSILOSIS, TROPICALISNot detectedNOMS HealthcareCANDIDA JIERGFQX9VXQW HealthcareCANDIDA GLABRATANot detectedNOMS HealthcareCANDIDA QFCLKP3YLFQ HealthcareCANDIDA KRUSEI Not detectedNOMS HealthcareCHLAMYDIA OZNOLRFCZYV3XNNE HealthcareCHLAMYDIA TRACHOMATISNot detectedNOMS HealthcareGARDNERELLA JVIPXXWZW7XJUJ Healthcare GARDNERELLA VAGINALISNot detectedNOMS HealthcareMEGASPHAERA (TYPES 1, 2)0NOMS HealthcareMEGASPHAERA (TYPES 1, 2)Not detectedNOMS HealthcareMYCOPLASMA QLDBGSUWBD1DBVB HealthcareMYCOPLASMA GENITALIUMNot detectedNOMS Healthcare NEISSERIA SXNMLJUDELR8SDSZ HealthcareNEISSERIA GONORRHOEAENot detectedNOMS HealthcareTRICHOMONAS VHGPZYQKK0XDIM HealthcareTRICHOMONAS VAGINALISNot detected NOMS HealthcareNOMS HealthcareUrinalysis macro [...] mg/dLNOMS HealthcareNOMS HealthcareUrinalysis macro (dipstick) panel (U)on 82-27-0104Tsskidebb, UA NegativeNegative - 4(70) +++ mg/dLNOMS HealthcareBlood, UAPositiveNegative - 50 Allen/mcLNOMS HealthcareClarity, UAClearNOMS HealthcareColor, UAYellowNOMS HealthcareGlucose, UANegativeNegative - 2000(110) ++++ mg/dLNOMS Healthcare Interpretation and review of laboratory resultsAbnormalNOMS HealthcareKetones, UAPositiveNegative - 160(16) ++++ mg/dLNOMS HealthcareLeukocytes, UANegative Negative - 500+++ Andrei/mcLNOMS HealthcareNitrite, UANegativeNegative - Positive NOMS HealthcarepH, UA75 - 9NOMS HealthcareProtein, UANegativeNegative - 2000(20) ++++ mg/dLNOMS HealthcareSpec Grav, UA1.021 - 1.03NOKY HealthcareUrobilinogen, UA1.00.2 - 12 mg/dLNOKY HealthcareNOMS HealthcareBOX TESTon 84-52-1995BCU TEST SENT OUTunityNOKY WbrhzfenvsSKV7dakijXTSE MxfnxvazyeVRI30/12/25NOSaint John's Hospital UNITY BOX CLINISYNCNOKY HealthcareHCG ( test) Ql (U)on 40-97-4467Lnluijsfakvwkh and review of laboratory resultsAbnormalJORD[facility]LEY [facility] HealthcarePreg Test, UrPositive NegativeNOCarondelet Health HealthcareUS OB TRANSVAGINALon 13-94-1082CI OB TRANSVAGINALEXAM: US OB TRANSVAGINAL HISTORY: Dating. [...] II, MD, PHD at 21-Aug-2024 08:21:12 PM [facility] TeleradiologyNormalNot AvailableComment on above:Order Comment: US OB TRANSVAGINAL No LMP recorded.Urinalysis macro (dipstick) panel (U)on 36-29-9533Unlresfyn, UA NegativeNegative - 4(70) +++ mg/dLNOMS HealthcareBlood, UANegativeNegative - 50 Allen/mcLNOKY HealthcareClarity, UAClearNOMS HealthcareColor, UAYellowNOMS HealthcareGlucose, UANegativeNegative - 2000(110) ++++ mg/dLNOMS Healthcare Interpretation and review of laboratory resultsNormalNOMS HealthcareKetones, UA NegativeNegative - 160(16) ++++ mg/dLNOMS HealthcareLeukocytes, UANegative Negative - 500+++ Andrei/mcLNOKY HealthcareNitrite, UANegativeNegative - Positive NOMS HealthcarepH, UA75 - 9NOMS HealthcareProtein, UANegativeNegative - 2000(20) ++++ mg/dLNOMS HealthcareSpec Grav, UA1.011 - 1.03NOMS HealthcareUrobilinogen, UA0.20.2 - 12 mg/dLNOMS HealthcareNOMS HealthcareAmbulatory Visit Summaryon 63-62-6849Afwgwodbnp Visit SummaryAmbulatory Visit Summary FAHEEM BABB :1995 [...] you for choosing us for your care. DianMercy Health [facility] Medical CenterUrology Office/Clinic Noteon 45-48-8901Tdyrqsp Office/Clinic NoteUrology Office/Clinic Note Chief Complaint possible [...] Sx persisted so AO sent 7d Keflex. COMPENSATION INTERN spoke with her about possible IC. We [...] E&M of Est. Patient Moderate 30-39 Min 45530 Urnls Dip Stick Auto w/o Microscopy POC 34991 Follow-up With When Contact Information Call for UTI symptoms. Call to schedule follow up after . Additional Instructions: Patient Education Kidney Stones, Jogl-me-Otbk Problem List/Past Medical History Ongoing Adjustment disorder [...] Protein Urine Dipstick: Negative (08/01/24 13:23:00) Specific [place] Urine Dipstick: <=1.005 (08/01/24 13:23:00) Urine Appearance Urine Dipstick: Clear (08/01/24 13:23:00) Urine Color Urine Dipstick: Yellow (08/01/24 13:23:00) Urobilinogen Urine Dipstick: Normal 0.2-1 EU/dl (08/01/24 13:23:00) pH Urine Dipstick (more content not included)...[facility] CenterComment on above:Result Comment: Electronically Signed By: JONAH GOMEZ PA-C\.robbin\Date and Time Signed: 08/02/2515:14 EDTBI US BREAST LIMITED LEFT on 67-00-8209SA US BREAST LIMITED LEFTThis is a summary [...] 2 ELECTRONICALLY SIGNED BY: Jairo Hernández M.D.NormalNot AvailableSt. David'S Medical Center 31-02-7253IywvkecdzBlzvrnpmf From: Anayeli Laureano To: EU - Administrative; Sent: 03/01/2024 11:42:31 EST Show up: 03/22/2024 11:42:00 EST Subject: Ambulatory Reminder Due Date/Time: 05/28/2024 11:42:00 EST Reminder/Recall Patient needs scheduled with SUR[facility] for a 3 month F/U, due back in May 2024 MAY 16 W[facility] WITH AUTO DIFFon 93-68-1180XVBJITUEK ABSOLUTE EDPN0NLSZ HealthcareBasophils/100 WBC (Bld) 0.4 %0.2 - 2.0 %NOMS HealthcareEosinophils/100 WBC (Bld)2.3 %0.9 - 7.0 %NOMKindred HospitalErythrocyte distribution width (RBC) [Ratio]11.9 %11.0 - 15.0 %NOMKindred HospitalHematocrit (Bld) [Volume fraction]42 %36.0 - 48.0 %[facility] Hemoglobin (Bld) [Mass/Vol]14.4 g/dL12.0 - 16.0 g/dLNOKY HealthcareIMMATURE GRANULOCYTES ABS AUTO0.01NOKY HealthcareImmature granulocytes/100 WBC (Bld)0.2 % 0.0 - 0.5 %NOM HealthcareInterpretation and review of laboratory results AbnormalNOMS HealthcareLYMPHOCYTES ABSOLUTE GDBB4LQJV HealthcareLymphocytes/100 WBC (Bld)42.5 %20.5 - 60.0 %NOMKindred HospitalMCH (RBC) [Entitic mass]30.6 pg26.7 - 34.0 pgNOKindred HospitalHC (RBC) [Mass/Vol]34.3 g/dL29.9 - 35.2 g/dLNOSaint John's HospitalMCV (RBC) [Entitic vol]89.2 fL81.0 - 99.0 fLNOMS HealthcareMONOCYTES ABSOLUTE AUTO0.5NOMS HealthcareMonocytes/100 WBC (Bld)11 %1.7 - 12.0 %NOMS HealthcareNEUTROPHILS ABSOLUTE AUTO2.1NOMS HealthcareNeutrophils/100 WBC (Bld) 43.6 %43.0 - 75.0 %NOMS HealthcarePlatelet mean volume (Bld) [Entitic vol]9.4 fL Low9.5 - 13.5 fLNOMS HealthcareTBH EO #0.1NOMS HealthcareTBH BXE587UAFI HealthcareTBH RBC4.71NOMS HealthcareTBH WBC4.7NOMS HealthcareCLINISYNCNOMS HealthcareC Urineon 84-95-7706Isdkgmpo identified Cx Nom (U)Microbiology PROCEDURE: Urine Culture [...] Locations R1: This test was performed at: [facility], [address] [place] [address], [address] [place] [address], XthwrzUnqrnpCincinnati VA Medical CenterComment on above:Performed By: #### [id number] #### [facility] [address] [place] [id number] RENAL BIon 44-58-2626[place] [address] Ultrasound Report Signed Patient: FAHEEM BABB MR#: [id number] : 1995 Acct:[id number] Age/Sex: 29 / F ADM Date: 03/21/24 Loc: US Attending Dr: Bonita Pinedo SPECIAL EDUCATION TUTOR Ordering Physician: Bonita Pinedo NP Date of Service: 03/21/24 Procedure(s): US renal BI Accession Number(s): [id number] cc: SRI RAMÍREZ ; Bonita Pinedo SPECIAL EDUCATION TUTOR [place] [id number] Patient Name: FAHEEM BABB MRN: [id number] date: 1995 Sex: F Assigned Patient Location: Current Patient Location: Accession/Order Number: [id number] Exam Date: 03/21/2024 12:58 Report Date: 03/22/2024 [...] Jimenez M.D. Signed By: 03/22/2459 DD/ TD/TT: Associate Professor Of Pathology:CHRISadiologmatthieu, Radiologist, - 03/22/2024 [place] [address] Ultrasound Report Signed Patient: FAHEEM BABB MR#: [id number] : 1995 Acct:[id number] Age/Sex: 29 / F ADM Date: 03/21/24 Loc: US Attending Dr: Bonita Pinedo NP Ordering Physician: Bonita Pinedo NP Date of Service: 03/21/24 Procedure(s): US renal BI Accession Number(s): [id number] cc: SRI RAMÍREZ ; Bonita Pinedo NP The [place] [id number] Patient Name: FAHEEM BABB MRN: [id number] date: 1995 Sex: F Assigned Patient Location: US Current Patient Location: Accession/Order Number: [id number] Exam Date: 03/21/2024 12:58 Report Date: 03/22/2024 [...] M.D. Signed By: 03/22/2459 DD/ 6 TD/TT: Associate Professor Of Pathology: PABLITO [facility]oria Community HospitalRadiology Study observation (narrative)[facility] CenterUS RENAL BI Ordered By: Radiologist Radiology on 61-11-2475XZYB [employer] Work Phone: xr ABDOMEN 1Von 77-40-3608HkbVictor[place] [id number] XRay Report Signed Patient: FAHEEM BABB MR#: [id number] : 1995 Acct:[id number] Age/Sex: 29 / F ADM Date: 03/21/24 Loc: US Attending Dr: Bonita Pinedo NP Ordering Physician: Bonita Pinedo NP Date of Service: 03/21/24 Procedure(s): XR abdomen 1V Accession Number(s): [id number] cc: SRI RAMÍREZ ; Bonita Pinedo NP [address] [id number] Patient Name: FAHEEM BABB MRN: [id number] date: 1995 Sex: F Assigned Patient Location: US Current Patient Location: US Accession/Order Number: [id number] Exam Date: 03/21/2024 13:38 Report Date: 03/22/2024 11:48 At the request of: BNOITA PINEDO Procedure: XR abdomen 1V EXAMINATION: XR [...] Signed By: 03/22/24 1151 DD/ 1148 TD/TT: Associate Professor Of Pathology:CHRISadiologmatthieu, Radiologist, - 03/22/[address] [address] XRay Report Signed Patient: FAHEEM BABB MR#: [id number] : 1995 Acct:[id number] Age/Sex: 29 / F ADM Date: 03/21/24 Loc: US Attending Dr: Bonita Pinedo NP Ordering Physician: Bonita Pinedo NP Date of Service: 03/21/24 Procedure(s): XR abdomen 1V Accession Number(s): [id number] cc: SRI RAMÍREZ ; Bonita Pinedo NP The [address] [address] Patient Name: FAHEEM BABB MRN: [id number] date: 1995 Sex: F Assigned Patient Location: US Current Patient Location: US Accession/Order Number: [id number] Exam Date: 03/21/2024 13:38 Report Date: 03/22/2024 [...] Signed By: 03/22/24 1151 DD/ 1148 TD/TT: Associate Professor Of Pathology: PABLITO HealthcareRadiology Study observation (narrative)[facility] HealthcareXR ABDOMEN 1VOrdered By: Radiologist Radiology on 19-90-9383TKDPEllis Fischel Cancer Center Work Phone: Urinalysis macro (dipstick) panel [...] UA0.20.2 - 12 mg/dLNOMS HealthcareNOMS HealthcareUS PELVISon 53-01-9237WucHe[place] [address] Ultrasound Report Signed Patient: FAHEEM BABB MR#: [id number] : 1995 Acct:[id number] Age/Sex: 28 / F ADM Date: 02/03/24 Loc: NOMS Attending Dr: Jose Pan D.O. Ordering Physician: Jose Pan D.O. Date of Service: 02/03/24 Procedure(s): US pelvis Accession Number(s): [id number] cc: SRI RAMÍREZ ; Jose Pan D.O. [place] [address] Patient Name: FAHEEM BABB MRN: [id number] date: 1995 Sex: F Assigned Patient Location: [facility] Current Patient Location: LAB Accession/Order Number: [id number] Exam Date: 02/03/2024 10:36 Report Date: 02/03/2024 [...] Signed By: 02/03/24 1133 DD/ 1131 TD/TT: Associate Professor Of Pathology:NANCYHRadiology, Radiologist, - 02/03/2024 [place] [address] Ultrasound Report Signed Patient: FAHEEM BABB MR#: [id number] : 1995 Acct:[id number] Age/Sex: 28 / F ADM Date: 02/03/24 Loc: NOMS Attending Dr: Jose Pan D.O. Ordering Physician: Jose Pan D.O. Date of Service: 02/03/24 Procedure(s): US pelvis Accession Number(s): [id number] cc: SRI RAMÍREZ ; Jose Pan D.O. The [place] [phone] Patient Name: FAHEEM BABB MRN: [id number] date: 1995 Sex: F Assigned Patient Location: [facility] Current Patient Location: LAB Accession/Order Number: [id number] Exam Date: 02/03/2024 10:36 Report Date: 02/03/2024 [...] Signed By: 02/03/24 1133 DD/ 1131 TD/TT: Associate Professor Of Pathology: [facility]l Cancer CenterRadiology Study observation (narrative)[facility] HealthcareUS PELVIS Ordered By: Radiologist Radiology on 05-29-5449ABFX Healthcare Work Phone: IGP,APTIMA HPV,AGE GDLNon 72-42-5846UWZ GDLN ACOG TESTINGNote.[facility] HealthcareComment on above:TESTS RESULT FLAG UNITS REF RANGE LAB Clinician Provided Cytology Information Source.............Cervix;Endocervix No. of containers..01 ThinPrep Vial Age Algo ACOG Dione... - 01 FLAG LEGEND: L-Low Normal,H-High Normal,LL-Alert Low,HH-Alert High <-Panic Low,>-Panic High,A-Abnormal,AA-Critical Abnormal Performed at: 01 =G [address] [place] [address] Cristiane Eduardo MD, IGP, RFX APTIMA HPV ASCUNote.NOMS HealthcareComment on above:TESTS RESULT FLAG UNITS REF RANGE LAB DIAGNOSIS: 02 NEGATIVE FOR INTRAEPITHELIAL LESION OR MALIGNANCY. Specimen adequacy: 02 Satisfactory for evaluation. Endocervical and/or squamous metaplastic cells (endocervical component) are present. Performed by: 02 Marily Sin Manager Of Tires Sales ([facility]) . 02 Note: Note 03 The [...] High,A-Abnormal,AA-Critical Abnormal Performed at: 02 [facility] [address] [address] [place] [address] Mayur Coleman MD, 03 WB [facility] [address] [place] [address] Cristiane Eduardo MD, Performed at: =G - [facility] [address] [place], [place] [id number] Commodities Broker: Cristiane Eduardo MD, Phone: [phone] Performed at: [facility] [address] [address] [place], [place] [id number] Commodities Broker: Mayur Coleman MD, Phone: [phone] BRUSH-SPATULA CERVIX ENDOCERVIX CLINISYNCNOMS HealthcareCytology Cervical or vaginal smear or scraping studyon 36-13-4241JSYD HealthcareNo Panel Informationon 07-46-9608SEBJWIRPYHYQDE EPIDERMIDIS, HAEMOLYTICUS, LUGDUNENSIS, SAPROPHYTICUS (URINA0.000NOMS Healthcare STAPHYLOCOCCUS EPIDERMIDIS, HAEMOLYTICUS, LUGDUNENSIS, SAPROPHYTICUS (URINANot detectedNOMS HealthcareURINARY TRACT INFECTION (HTRX)on 67-50-3876PLFHMLNUKZBAC BAUMANII0.000NOMS HealthcareACINETOBACTER BAUMANIINot detectedNOMS Healthcare REAL ALBICANS, [...] UrNegativeNOMS HealthcareNOMS HealthcareUrinalysis macro (dipstick) panel (U)on 27-57-3524Lqqfgimgb, UANegativeNegative - 4(70) +++ mg/dLNOMS HealthcareBlood, UAPositiveNegative [...] HealthcareUrobilinogen, UA1.00.2 - 12 mg/dLNOMS HealthcareNOMS HealthcareCult,Urineon 91-92-7803Cphq,UrineSpecimen Description .URINE Unknown Culture NO SIGNIFICANT GROWTH Report Status FINAL 09/23/2023NoDoctors HospitalComment on above:Performed By: #### URC #### [facility] [employer] [address] [place] [address] Commodities Broker: Moisés Carl MD [place] [id number] Commodities Broker: CODEY Werner, ,Urineon 28-01-8164Okfh HCG ( test) Ql (U)NegativeNormalNEGMercy Kaiser Foundation HospitalComment on above:Result Comment: Specimens with hCG levels near the threshold of the test (25 mIU/mL) may give a negative or indeterminate result. In such cases, another test should be performed with a new specimen in 48-72 hours. If early is suspected clinically in this setting, correlation with quantitative serum b-hCG level is suggested.Performed By: #### AMBROSE CANOCG, UMICAO #### [place] [address] Commodities Broker: JUAN C Werner w/Reflex Cultureon 02-89-7133Ngpipvcny, SemiQt,UrNegativeAbnormalNEGMerSanta Barbara Cottage HospitalComment on above: Performed By: #### JOHNXAMBROSECG, UMICAO #### [place] [address] Commodities Broker: Brynn Werner, UrineLARGEAbnormalNEGDoctors HospitalComment on above:Performed By: #### UAX UHCG, UMICAO #### [place] [address] Commodities Broker: MICKEY Wernerlarity (U)SLIGHTLY CLOUDYAbnormalCLEARMercy Kaiser Foundation HospitalComment on above:Performed By: #### UAX, UHCG, UMICAO #### [place] [id number] Commodities Broker: MICKEY Wernerolor (U)RedAbnormalYELMerSanta Barbara Cottage HospitalComment on above:Performed By: #### UAX, UHCG, UMICAO #### [place] [address] Commodities Broker: Iman WernerINTERPRET WITH CAUTION DUE TO INTENSE COLOR OF URINE.NormalDoctors HospitalComment on above:Performed By: #### UAX, UHCG, UMICAO #### [place] [address] Commodities Broker: Wan Morales MDGlucose Ql (U)NegativeNormalNEGDoctors HospitalComment on above:Performed By: #### UAX, UHCG, UMICAO #### [place] [address] Commodities Broker: Wan Morales MDKetones Ql (U)NegativeNormalNEGDoctors HospitalComment on above:Performed By: #### UAX, UHCG, UMICAO #### [place] [address] Commodities Broker: Wan Morales MDLeukocyte esterase Test strip Ql (U)MODERATE AbnormalNEGDoctors HospitalComment on above:Performed By: #### UAX, UHCG, UMICAO #### [place] [address] Commodities Broker: Wan Morales MDNitrite,UrPositiveAbnormalNEGDoctors HospitalComment on above:Performed By: #### UAX, UHCG, UMICAO #### [place] [id number] Commodities Broker: Wan Morales [facility],Ur7.8Qrxdbl4.0-8.0Doctors HospitalComment on above:Performed By: #### UAX, UHCG, UMICAO #### [place] [address] Commodities Broker: SONNY Wernerrotein Ql (U)3+ mg/dLAbnormalNEGDoctors HospitalComment on above:Performed By: #### UAX, UHCG, UMICAO #### [place] [address] Commodities Broker: LINH Wernerpec. [place],Ur1.525Cqviub5.005-1.030Doctors HospitalComment on above:Performed By: #### UAX, UHCG, UMICAO #### [place] [address] Commodities Broker: Wan Morales MDUrobilinogen,UrNormalNormal0.0-1.0Doctors HospitalComment on above:Performed By: #### JEROME, AMBROSECG, UMICAO #### [place] [address] Commodities Broker: Wan Morales MDUrinalysis,Microon [id number] AbnormalNONEMercProvidence Little Company of Mary Medical Center, San Pedro CampusComment on above:Performed By: #### UAX, UHCG, UMICAO #### [place] [address] Commodities Broker: Wan Morales MDEpithelial cells LM Ql (Urine sed)5 TO 10Normal 0-5Doctors HospitalComment on above:Performed By: #### UAX, UHCG, UMICAO #### [place] [id number] Commodities Broker: Wan Morales MDOther ObservationsCulture ordered based on defined criteria.AbnormalNREQMerSanta Barbara Cottage HospitalComment on above: Performed By: #### UAX, UHCG, UMICAO #### [facility] [address] [place] [id number] Commodities Broker: Wan Morales MDUrine RBC'sTOO NUMEROUS TO COUNTNormal0-2[facility] HospitalComment on above:Performed By: #### UAX, UHCG, UMICAO #### [place] [address] Commodities Broker: Wan Morales MDUrine WBC'sTOO NUMEROUS TO COUNTNormal0-5[facility] Foundation HospitalComment on above:Performed By: #### UAX, UHCG, UMICAO #### [facility] [id number] [place] [address] Commodities Broker: Wan Morales MDUS RENAL COMPLETEon [id number] RENAL COMPLETE EXAMINATION: RETROPERITONEAL ULTRASOUND OF THE [...] Signed by: Sri Galeas MD 06/20/21 Final resultNoKettering Health Miamisburg1. Nonobstructing left renal stones measuring up to [...] the bladder. No significant post void residual. [facility] Sri Bryson MD - 06/20/2021 EXAMINATION: RETROPERITONEAL [...] up to 5 mm. 2. No hydronephrosis. Saqina Phone: us RENAL COMPLETEOrdered By: Sri Galeas on [id number] Phone: us RENAL COMPLETEon [id number] Study observation (narrative)Saqina Phone: xr ABDOMEN (KUB) (SINGLE AP VIEW)on 72-16-2317BS ABDOMEN (KUB) (SINGLE AP VIEW)EXAMINATION: ONE SUPINE [...] Signed by: See Herrera 06/19/21 Final resultNormalMercy Fairfield HospitalNo definite evidence of renal or ureteral stones. [facility] CONSOLIDATEDEXAMINATION: ONE SUPINE XRAY VIEW(S) [...] urine collecting system. Osseous structures are normal. [facility] GLORIARorochrisWarrenic P - 06/19/2021 EXAMINATION: [...] definite evidence of renal or ureteral stones. Saqina Phone: radiology Study observation (narrative)Saqina Phone: XR ABDOMEN (KUB) (SINGLE AP VIEW)Ordered By: See Herrera on [id number] Phone: Cult,Urineon [id number],UrineSpecimen Description .VOIDED URINE Culture NO SIGNIFICANT GROWTH Report Status FINAL 06/14/2021NormSelect Medical Cleveland Clinic Rehabilitation Hospital, BeachwoodComment on above: Performed By: #### URC #### [facility] Hospitalenteg[facility] [address] [place] [address] Commodities Broker: Moisés Carl MD [facility] [address] [place] [address] Commodities Broker: Filemon Gutiérrez MDUrinalysis w/ Microon 06-12-2021-----Tuscarawas HospitalComment on above:Performed By: #### UAMIC #### [facility] [address] [place] [address] Commodities Broker: Filemon Gutiérrez MDEpithelial cells LM Ql (Urine sed)2 TO 8Vojdku3-53 [facility] Health SystemComment on above:Performed By: #### UAMIC #### [facility] [address] [place], [place] [id number] Commodities Broker: Brennan Kay RBC's0 TO 6Rdvdaw9-7GjadhCity Hospital Comment on above:Performed By: #### UAMIC #### [facility] [address] [place], [place] [address] Commodities Broker: Brennan Kay WBC's0 TO 8Mhraxu4-8JimjeTrinity Health System Comment on above:Performed By: #### UAMIC #### [facility] [address] [place], [place] [address]83 Commodities Broker: Filemon Gutiérrez MDBilirubin, SemiQt,UrNegativeNormalNEGTrinity Health SystemComment on above:Performed By: #### UAMIC #### [facility] [address] [place], [place] [address] Commodities Broker: Filemon Gutiérrez MDBlood, UrineNegativeNormalNEGTrinity Health System Comment on above:Performed By: #### UAMIC #### [facility] [address] [place], [place] [address] Commodities Broker: MICKEY Kaylarity (U)ClearNormalCLEARTrinity Health System Comment on above:Performed By: #### UAMIC #### [facility] [address] [place], [place] [id number] Commodities Broker: MICKEY Kayolor (U)YellowNormalYOhioHealth Comment on above:Performed By: #### UAMIC #### [address] [place] [address] Commodities Broker: Filemon Gutiérrez MDGlucose Ql (U)NegativeNormalNEGMercy Veterans Administration Medical CenterComment on above:Performed By: #### UAMIC #### [address] [place], [place] [address]83 Commodities Broker: Filemon Gutiérrez MDKetones Ql (U)NegativeNormalNEGMercy Fairfield HospitalComment on above:Performed By: #### UAMIC #### [address] [place], [facility]83 Commodities Broker: Filemon Gutiérrez MDLeukocyte esterase Test strip Ql (U)NegativeNormal NEGMercy Veterans Administration Medical CenterComment on above:Performed By: #### UAMIC #### [address] [place], [facility]83 Commodities Broker: Filemon Gutiérrze MDNitrite,UrNegativeNormalNEGTrinity Health System Comment on above:Performed By: #### UAMIC #### [address] [place], [place] [address] Commodities Broker: SONNY Kay,Ur7.4Xrxgee9.0-9.0Trinity Health SystemComment on above:Performed By: #### UAMIC #### [address] [place], [place] [address] Commodities Broker: SONNY Kayrotein Ql (U)NegativeNormalNEGMerChillicothe Hospital HospitalComment on above:Performed By: #### UAMIC #### [address] [place], [place] [address]83 Commodities Broker: LINH Kaypec. [place],Ur1.556Kyftza5.010-1.020Mercy Veterans Administration Medical CenterComment on above:Performed By: #### UAMIC #### [facility] [address] [place] [address] [place] [address] Commodities Broker: Filemon Gutiérrez MDUrobilinogen,UrNormalNormalNORMMerUniversity of Connecticut Health Center/John Dempsey HospitalComment on above:Performed By: #### UAMIC #### [facility] [address] [place] [address] Commodities Broker: Filemon Gutiérrez MDUrinalysis with Microscopicon 06-12-2021-[facility] HospitalBilirubin UrineNegativeNEGATIVEMercy HealthColor, UAYellowYellowMercy HealthEpithelial Cells UA2 TO 5Mercy HealthGlucose, UrNegativeNEGATIVEMercy HealthKetones Ql (U)NegativeNEGATIVEMercy HealthLeukocyte esterase Test strip Ql (U)NegativeNEGATIVEMercy HealthNitrite, UrineNegativeNEGATIVEMercy HealthpH, UA 7.0Mercy HealthProtein, UANegativeNEGATIVEMercy HealthRBC, UA0 TO 2[facility] Specific [place], UA1.010Mercy HealthTurbidity UAClearClearMercy HealthUrine Hgb NegativeNEGATIVEMercy HealthUrobilinogen, UrineNormalNormalMercy HealthWBC, UA0 TO 2Mercy HealthMercy HealthPAP ACOG PANEL 2: 21 to 29on 05-25-2021..NormalAcmc Healthcare System GlenbeighCombeaumont hospital on above:Performed By: #### [id number] #### [facility] [address] [place] [address] Dr. Jolene Cornejo Gdln ACOG Yxgxfoo95-44GenqhlEahCleveland Clinic FoundationComment on above:Performed By: #### [id number] #### [facility] [address] [place] [address] [address] Jolene StreetDIAGNOSIS:CommentNoMarietta Memorial Hospital on above: Result Comment: NEGATIVE FOR INTRAEPITHELIAL LESION OR MALIGNANCY.Performed By: #### [id number] #### [facility] [address] [place] [address] [address] J[address]ene StreetMethodology:CommentNoCleveland Clinic FoundationCombeaumont hospital on above: Result Comment: This liquid based ThinPrep(R) pap test was screened with the use of an image guided system.Performed By: #### [id number] #### [place] [address] [address]ene StreetNote:CommentThe Jewish Hospital on above:Result Comment: The Pap smear is a screening test designed to aid in the detection of premalignant and malignant conditions of the uterine cervix. It is not a diagnostic procedure and should not be used as the sole means of detecting cervical cancer. Both false-positive and false-negative reports do occur. .Performed By: #### [id number] #### [place] [address] [address] Jolene StreetPerformed by:CommentThe Jewish Hospital on above: Result Comment: Grisel Negron, Manager Of Tires Sales (ASCP)Performed By: #### [id number] #### [place] [address] [address] Jolene StreetReflex Criteria:CommentThe Jewish Hospital on above:Result Comment: The HPV DNA reflex criteria were not met with this specimen result therefore, no HPV testing was performed. .Performed By: #### [id number] #### [place] [address] [address] J[address]ene StreetSpecimen adequacy:CommentThe Jewish Hospital on above:Result Comment: Satisfactory for evaluation. Endocervical and/or squamous metaplastic cells (endocervical component) are present.Performed By: #### [id number] #### [facility] [address] [place] [address] Vital Signs Date TimeVital SignValuePerforming ZsnagezqcHtwbhdaf72-32-2990 10:-040Body mass index (BMI) [Ratio]27.53 kg/m8Uljxc Maxim DO Work Phone: [facility] CenterDhzqdtanjf26-74-6356 10:040Body ijeevr37.74 kgCorey Maxim DO Work Phone: [facility] Cancer CenterFbxvlcfcld33-05-6705 10:23-0400Diastolic blood jyctfjpi54 mm[Hg]Jose Maxim DO Work Phone: [phone] [place], [place] [address]Fqkdeouawn85-21-5718 10:23-0400Systolic blood mfrtfikd330 mm[Hg]Jose Maxim DO Work Phone: [phone] [place], [place] [address]Ufnakvzfuh71-66-3685 10:15-0400Body mass index (BMI) [Ratio]27 kg/b7Amliu Maxim DO Work Phone: [phone] [place], [place] [address]Xdbfpwvwvz70-72-3327 10:15-0400Body .2 kg Jose Maxim DO Work Phone: [phone] [place] [address]-14-2025 10:15-0400Diastolic blood yifqvrag80 mm[Hg]Jose Maxim DO Work Phone: [phone] [place], [place] [address]Gyuaaceskc43-51-2526 10:15-0400Systolic blood nybkrbdr334 mm[Hg]Jose Maxim DO Work Phone: [phone] [place], [place] [address]Aihyrsslol74-41-9841 10:17-0400Body mass index (BMI) [Ratio]26.63 kg/a4McxjpaadJake Gunter SPECIAL EDUCATION TUTOR Work Phone: [phone] [place], [place] [address]Ecwchfqwff44-49-5600 10:17-0400Body oxuiwc95.11 kgKrmikael Gunter SPECIAL EDUCATION TUTOR Work Phone: [phone] [place], [place] [address]Ppqerqbucj33-48-6233 10:17-0400Diastolic blood mm[Hg]Jake Gunter SPECIAL EDUCATION TUTOR Work Phone: [phone] [place], [place] [address]Gvttmloqef35-08-9208 10:17-0400Systolic blood esznsdxw667 mm[Hg]Jake Jani SPECIAL EDUCATION TUTOR Work Phone: [phone] [place] [address]-17-2025 15:40-0400Body mass index (BMI) [Ratio]26.31 kg/m2Daja CUELLAR Work Phone: [facility] CenterAajcyzmlqz21-69-9474 15:40-0400Body eytjau06.2 kg Daja CUELLAR Work Phone: [phone] [place] [address]-17-2025 15:40-0400Diastolic blood mkyoldjb60 mm[Hg]Daja CUELLAR Work Phone: [phone])030-[address] [place], [place] [address]Nspuxeplvk62-22-7293 15:40-0400Systolic blood gkdfziht888 mm[Hg]Daja CUELLAR Work Phone: [phone] [place], [place] [address]Dyzzhakgob64-82-3935 14:09-0400Body mass index (BMI) [Ratio]25.22 kg/k0Hrryn Maxim DO Work Phone: [phone] [place], [place] [address]Jwdmrqbjht12-24-8800 14:09-0400Body arcdck75.03 kgCorey Maxim DO Work Phone: [phone] [place], [place] [address]Rxgpjhhmvg55-68-2666 14:09-0400Diastolic blood rqbzphod21 mm[Hg]Jose Maxim DO Work Phone: 1(722)185-[address] [place], [place] [address]Jauanndzul96-07-3385 14:09-0400Systolic blood izfjmove215 mm[Hg]Jose Maxim DO Work Phone: [phone])[facility] [place], [place] [address]Owfywcfuxo91-30-0482 14:11-0400Body mass index (BMI) [Ratio]24.59 kg/o6Xstkd Maxim DO Work Phone: [phone])[facility] [place], [place] [address]Whpbcnuudb14-46-1232 14:11-0400Body qwvegh45.22 kgCorey Maxim DO Work Phone: [phone])[facility] [place], [place] [address]Vvktojtvoo97-48-5490 14:11-0400Diastolic blood mmqmzpyi84 mm[Hg]Jose Maxim DO Work Phone: [phone] [place], [place] [address]Lrfydgsqmb36-55-2287 14:11-0400Systolic blood qihttehf029 mm[Hg]Jose Maxim DO Work Phone: [phone])[facility] [place], [place] [address]Aidzjxmhgu37-37-0314 14:44-0400Body mass index (BMI) [Ratio]24 kg/j9Leeyj Maxim DO Work Phone: 1(419)[facility] [place], [place] [address]Yvujflgkgg70-73-2649 14:44-0400Body fgvpii00.51 kgCorey Maxim DO Work Phone: [phone] [place], [place] [address]Dsjlqsgnhh97-45-9146 14:44-0400Diastolic blood wipyosck64 mm[Hg]Jose Maxim DO Work Phone: [facility] CenterFrbxtapfeq81-40-5672 14:44-0400Systolic blood mm[Hg]Jose Maxim DO Work Phone: [facility] CenterIsowstzgeo37-53-6831 15:30-0400Body mass index (BMI) [Ratio]23.34 kg/m2Daja Ryan PA Work Phone: [facility] CenterOtpnxjcuji48-74-6114 15:30-0400Body csvfhu48.59 kgDaja Ryan ALISA Work Phone: [facility] CenterXrnazxvoiw37-84-6817 15:30-0400Diastolic blood sdnwywsx91 mm[Hg]Daja Ryan ALISA Work Phone: [facility] CenterMyrnvjjxef96-23-5608 15:30-0400Systolic blood ajpukmnc503 mm[Hg]Daja Ryan ALISA Work Phone: [facility] CenterQxrqqxcqbj27-73-8569 14:04-0400Body mass index (BMI) [Ratio]22.99 kg/v6Ebmfg Maxim DO Work Phone: [facility] CenterBwywlegyzb86-13-8198 14:04-0400Body jiusja35.59 kgCorey Maxim DO Work Phone: [facility] CenterUtuudpubnl91-04-1307 14:04-0400Diastolic blood ypjpajkd17 mm[Hg]Jose Maxim DO Work Phone: [facility] CenterFlrwfspysy93-58-7138 14:04-0400Systolic blood hihswrny106 mm[Hg]Jose Maxim DO Work Phone: [facility] CenterIscxbfwwbh54-10-3268 13:39-0400Body mass index (BMI) [Ratio]22.87 kg/m2[facility]05-08-2025 13:39-0400Body afdxfv98.22 kgNoSt. Lukes [facility]05-08-2025 13:39-0400Diastolic blood mm[Hg]Noms [facility]05-08-2025 13:39-0400Systolic blood rwtjwwte011 mm[Hg]Pablito SotoEllis Fischel Cancer CenterSrllwklneb28-88-6236 08:15-0400Body .2 cmSri Ramírez MD Work Phone: [phone] [place], [place] [address]Tytgieqcuj39-11-5479 08:15-0400Body mass index (BMI) [Ratio]23.05 kg/m2Sri Ramírez MD Work Phone: [phone] [place], [place] [address]Qbiltvyvve21-80-4754 08:15-0400Body mtshmu26.77 kgSri Ramírez MD Work Phone: [phone] [place] [address]-07-2025 08:15-0400Diastolic blood bijjzqip74 mm[Hg]Sri Ramírez MD Work Phone: [phone] [place], [place] [address]Fwgqlnqted98-70-1482 08:15-0400Heart rate92 /min Sri Ramírez MD Work Phone: [phone])[facility] [place], [place] [address]Gpdqfbbcro75-96-1742 08:15-0400Respiratory rate18 /minSri Ramírez MD Work Phone: 1(439)[facility] [place], [place] [address]Lydimxmazq10-43-1540 08:15-7100EqW3% (BldA) [Mass fraction]99 %Sri Ramírez MD Work Phone: [phone] [place], [place] [address]Udefrefjzp17-94-9001 08:15-0400Systolic blood faiaujvs620 mm[Hg]Sri Ramírez MD Work Phone: [phone])312-[address] [place], [place] [address]Riqbfhjefy48-79-0630 08:03-0500Body mass index (BMI) [Ratio]22.96 kg/i5PjudrvReggie Donovan SPECIAL EDUCATION TUTOR Work Phone: [phone] [place], [place] [address]Iwmquslwmx08-42-7954 08:03-0500Body xhxldbyphut24 [degF]Reggie Donovan SPECIAL EDUCATION TUTOR Work Phone: [phone])[facility] [place], [place] [address]Qpyddcrrsc24-61-2049 08:03-0500Body nxaspl46.5 kg Reggie Donovan SPECIAL EDUCATION TUTOR Work Phone: [phone] [place], [place] [address]Lcmuxfdpac13-34-6312 08:03-0500Diastolic blood exttbqpc26 mm[Hg]Reggie Donovan SPECIAL EDUCATION TUTOR Work Phone: 1(675)[facility] [place] [address]-28-2025 08:03-0500Heart rate96 /min Reggie Farfangabriella SPECIAL EDUCATION TUTOR Work Phone: [facility] CenterHjzizkzwaj21-93-2023 08:03-8500TrF0% (BldA) [Mass fraction]98 %Reggie Donovan SPECIAL EDUCATION TUTOR Work Phone: [facility] Cancer CenterZgoazihycj77-95-7182 08:03-0500Systolic blood swogjvfy069 mm[Hg]Reggie Adolphgabriella SPECIAL EDUCATION TUTOR Work Phone: [facility] CenterQgwkzbugcf13-36-0232 09:03-0500Body mass index (BMI) [Ratio]22.57 kg/m2Amy Connor PA Work Phone: [facility] CenterCnwnmrnnya93-14-6202 09:03-0500Body gfhasv98.37 kgAmy Connor CUELLAR Work Phone: [facility] CenterTuirujxntz49-87-8718 09:03-0500Diastolic blood etpujcwj88 mm[Hg]Daja CUELLAR Work Phone: [facility] CenterKndhtiyjae39-20-7369 09:03-0500Systolic blood reahjfkl117 mm[Hg]Daja Ryan PA Work Phone: [facility] CenterBdifdvyucx95-64-7084 14:37-0500Body mass index (BMI) [Ratio]22.57 kg/i4Ozypr Maxim DO Work Phone: [facility] CenterNchisiwejl55-61-2713 14:37-0500Body dlwtku71.37 kgCorey Maxim DO Work Phone: [facility] CenterDjoxdtxxds16-72-9631 14:37-0500Diastolic blood jgxdshwy69 mm[Hg]Jose Maxim DO Work Phone: [facility] CenterNcqlbapvwb51-89-3377 14:37-0500Systolic blood cekrwkmh317 mm[Hg]Jose Maxim DO Work Phone: [facility] CenterXhxrgkceex86-15-0727 11:20-0500Body mass index (BMI) [Ratio]22.55 kg/j4Dpdgy Maxim DO Work Phone: [place] [address]Bltkduobml60-79-0918 11:20-0500Body maljqh28.32 kgCorey Maxim DO Work Phone: [place] [address]Bqzduijgau79-46-6027 11:20-0500Diastolic blood mm[Hg]Jose Maxim DO Work Phone: [facility] CenterWgqkuegxaj45-85-9627 11:20-0500Systolic blood mm[Hg]Jose Maxim DO Work Phone: 1([phone] [place] [address]-19-2024 10:47-0500Blood Pressure LocationAurora Orzech [facility]11-19-2024 10:47-0500Diastolic blood qthukgdp56 mm[Hg]Bonita Orzech [facility]11-19-2024 10:47-0500Heart rate79 /minAurora Orzech [facility]11-19-2024 10:47-0500Respiratory rate19 /minAurora Orzech [facility]11-19-2024 10:47-0500Systolic blood kwaxyoyl374 mm[Hg]Bonita Orzech [facility]11-04-2024 11:11-0500Body mass index (BMI) [Ratio]22.4 kg/z4Xjngq Maxim DO Work Phone: [place] [address]Ijvjdonrri30-06-6973 11:11-0500Body djvwoc22.86 kgCorey Maxim DO Work Phone: [place] [address]Qirriattrn97-74-6837 11:11-0500Diastolic blood fbiumexy68 mm[Hg]Jose Maxim DO Work Phone: [place] [address]Qddfmejfqg65-23-2454 11:11-0500Systolic blood xbadgvss621 mm[Hg]Jose Maxim DO Work Phone: [facility] CenterLbxzfrvpmh02-78-5539 14:13-0400Body mass index (BMI) [Ratio]22.08 kg/m2Daja Connor CUELLAR Work Phone: [facility]OSaint [facility] HospitalDnzqvuuyen58-61-3973 14:13-0400Body rfmayh94.96 kgDaja Connor CUELLAR Work Phone: [facility] CenterMygksnwapj16-98-5223 14:13-0400Diastolic blood mm[Hg]Daja Connor CUELLAR Work Phone: [facility] CenterBngfsrfhdw54-18-1467 14:13-0400Systolic blood ajfugyjf300 mm[Hg]Daja Umanajuve CUELLAR Work Phone: [facility] CenterLylwtlpgcn98-11-6968 11:52-0400Body mass index (BMI) [Ratio]22.42 kg/o0Yikha Maxim DO Work Phone: [phone] CenterFwjppousbj16-69-0753 11:52-0400Body nogbqd64.92 kgCorey Maxim DO Work Phone: [facility] CenterKhjojqsrqj55-96-0460 11:52-0400Diastolic blood syghoxvl60 mm[Hg]Jose Maxim DO Work Phone: [facility] CenterJdjynvkucv94-17-8073 11:52-0400Systolic blood ecnqqnzd004 mm[Hg]Jose Maxim DO Work Phone: [facility] Healthcare Encounters Encounter DateEncounter TypeCare ProviderFacilityStart: 02-21-2025 End: 52-86-3899Cqxcrk flowsheetCorey Maxim DO Work Phone: NOKY [facility] OBGYNStart: 02-21-2025 End: 86-95-8408Dphful flowsheetCorey Maxim DO Work Phone: NOKY [place] OBGYNStart: 02-21-2025 End: 70-02-2397kdqfecpdgmGJWRW FAZIONot AvailableStart: 02-16-2025 End: 36-40-0846Fsleswsdg Result EncounterCorey Maxim DO Work Phone: noms External Department UnsolicitedStart: 02-16-2025 End: 32-55-6540Sjihzossv Result EncounterCorey Maxim DO Work Phone: noms External Department UnsolicitedStart: 02-15-2025 End: 71-51-7536Egscymdxf Result EncounterCorey Maxim DO Work Phone: NOEA External Department UnsolicitedStart: 02-15-2025 End: 10-18-7061Ssspqpqrc Result EncounterCorey Maxim DO Work Phone: noms External Department UnsolicitedStart: 02-07-2025 End: 58-55-9901Dwwxcv flowsheetCorey Maxim DO Work Phone: NOAU [place] OBGYNStart: 02-07-2025 End: 87-81-4313Inoaig flowsheetCorey Maxim DO Work Phone: NOJS [facility]anesa OBGYNStart: 02-07-2025 End: 70-62-9707Wdjxxhhq flow sheetCorey Maxim DO Work Phone: NOMS Vanesa OBGYNComment on above:Third trimester ([facility] 33 weeks gestation of ([facility])Start: 02-07-2025 End: 30-30-4262uhtyjhoshvDTUOQ FAZIONot AvailableStart: 02-02-2025 End: 86-80-5569Qnecsdnft Result EncounterGeneric External Data ProviderNOMS External Department UnsolicitedStart: 02-02-2025 End: 87-15-6211Graafbwek Result EncounterGeneric External Data ProviderNOMS External Department UnsolicitedStart: 01-24-2025 End: 84-44-4117Lmsfhwqn flow sheetCorey Maxim DO Work Phone: NOMN Vanesa OBGYNComment on above:Encounter for ultrasound recheck of choroid plexus cyst, antepartum ([facility]); Third trimester ([facility]); 31 weeks gestation of ([facility]); size inconsistent with dates ([facility])Start: 01-24-2025 End: 94-36-4472mveizlvnetRLQKZ ANDRESMIKEONot AvailableStart: 01-09-2025 End: 48-93-4034Sufyhl flowsSp Gunter NP Work Phone: NOMS [facility] OBGYNStart: 01-09-2025 End: 03-00-1441Iyqike flowsheetJake Gunter SPECIAL EDUCATION TUTOR Work Phone: NOMS [place] OBGYNStart: 01-09-2025 End: 08-21-3955Swacmltp flow sheetJake Gunter NP Work Phone: NOMS [place] OBGYNComment on above:Third trimester ([facility]); 29 weeks gestation of ([facility]); Choroid plexus cystStart: 01-09-2025 End: 05-64-7474fgkhohwnmbVYNVKAKB JANINot AvailableStart: 12-28-2024 End: 72-03-8749bfqjjuftzeZNP RAMEYNot AvailableStart: 12-28-2024 End: 13-96-7564Mghruhdq flow Debby CUELLAR Work Phone: NOMS Vanesa OBGYNComment on above:Second trimester ([facility]); 27 weeks gestation of ([facility])Start: 12-28-2024 End: 62-60-4107Rwsszs Minnie CUELLAR Work Phone: [facility] [place] OBGYNStart: 12-28-2024 End: 79-43-2686Qxhwov Minnie CUELLAR Work Phone: NOMS [facility] OBGYNStart: 12-10-2024 End: 50-84-7930Ehzldecmp Result EncounterGeneric External Data ProviderNOMS External Department UnsolicitedStart: 12-10-2024 End: 49-41-8581Olnvlbflj Result EncounterGeneric External Data ProviderNOMS External Department UnsolicitedStart: 12-05-2024 End: 21-42-5846Novaitelp Result EncounterGeneric External Data ProviderNOMS External Department UnsolicitedStart: 12-05-2024 End: 54-37-2590Pljpycjtb Result EncounterGeneric External Data ProviderNOMS External Department UnsolicitedStart: 12-05-2024 End: 10-82-5700Hfcyhskf flow sheetCorey Maxim DO Work Phone: NOMS [facility]anesa OBGYNComment on above:Acne, unspecified acne type (Primary Dx); Second trimester ([facility]); 24 weeks gestation of ([facility]); Diabetes mellitus screening; Screening, , for anatomic survey ([facility])Start: 12-05-2024 End: 71-43-7108mqxtqjlfthHJYYA FAZIONot AvailableStart: 11-07-2024 End: 25-82-7943Hefrqdovq Result EncounterGeneric External Data ProviderNOMS External Department UnsolicitedStart: 11-07-2024 End: 25-14-5473Uqqfxekye Result EncounterGeneric External Data ProviderNOMS External Department UnsolicitedStart: 11-07-2024 End: 61-24-1091Jplatoqo flow sheetCorey Maxim DO Work Phone: [facility] Alexis OBGYNComment on above:Screening, , for anatomic survey ([facility]) (Primary Dx); Second trimester ([facility]); 20 weeks gestation of ([facility])Start: 11-07-2024 End: 14-78-9724mjjhjrilbiLXJQG FAZIONot AvailableStart: 11-02-2024 End: 31-20-5600Zudgujace Result EncounterCorey Maxim DO Work Phone: noMS External Department UnsolicitedStart: 11-02-2024 End: 28-79-4443Tfhkvmumt Result EncounterCorey Maxim DO Work Phone: noms External Department UnsolicitedStart: 10-10-2024 End: 97-32-6919Bxkejohz flow sheetCorey Maxim DO Work Phone: NOMS BCP OBComment on above:Second trimester ([facility]); 16 weeks gestation of ([facility]); Screening, , for anatomic survey ([facility])Start: 10-10-2024 End: 89-83-8449rmhnbetkejGWBPS FAZIONot AvailableStart: 10-10-2024 End: 13-12-0621Mpxpuc flowsheetCorey Maxim DO Work Phone: NOMS BCP OBStart: 10-10-2024 End: 51-05-8856Ricrqb flowsheetCorey Maxim DO Work Phone: NOMS BCP OBStart: 09-28-2024 End: 57-24-0652Unqshs outpatient visit 15 minutesDaja CUELLAR Work Phone: NOMS [facility] OBComment on above:Second trimester ([facility]); 14 weeks gestation of ([facility]); Screen for STD (sexually transmitted disease)Start: 09-28-2024 End: 97-72-3537xuequltdvwGDS Berenice AvailableStart: 09-28-2024 End: 89-81-2265Nuzakt Minnie CUELLAR Work Phone: NOMS BCP OBStart: 09-28-2024 End: 48-55-0661Facosm Minnie CUELLAR Work Phone: NOMS BCP OBStart: 09-28-2024 End: 19-69-3789Yejiuivq Result EncounterDaja CUELLAR Work Phone: NOMS External Department UnsolicitedStart: 09-13-2024 End: 71-84-9994Mlbqhr flowsheetCorey Maxim DO Work Phone: NOMS BCP OBStart: 09-13-2024 End: 53-56-2970Niszqb flowsheetCorey Maxim DO Work Phone: NOMS BCP OBStart: 09-13-2024 End: 57-42-4792vshkcdkzjzQMKXG FAZIONot AvailableStart: 09-13-2024 End: 49-00-0037Arritcco flow sheetCorey Maxim DO Work Phone: noms BCP OBComment on above:First trimester ; 12 weeks gestation of ; Urinary tract infection in mother during , antepartumStart: 08-22-2024 End: 76-13-6979Xovgnygcn Result EncounterCorey Maxim DO Work Phone: noms External Department UnsolicitedStart: 08-22-2024 End: 13-44-9041Ujybuvlsv Result EncounterCorey Maxim DO Work Phone: noms External Department UnsolicitedStart: 08-18-2024 End: 79-21-8641jlmapoybtmSBU Berenice AvailableStart: 08-18-2024 End: 48-75-8992Rjbkmn outpatient visit 5 minutesNoms Bcp Ob Maxim NurseNOMS BCP OBComment on above:GA: 4g2sYpwpu: 08-18-2024 End: 32-31-6735arrbnhbqlmFWN CONONRNot AvailableStart: 08-12-2024 End: 58-70-1471Xagmkpacs Result EncounterGeneric External Data ProviderNOMS External Department UnsolicitedStart: 08-12-2024 End: 47-32-4877Qkskqwxhs Result EncounterGeneric External Data ProviderNOMS External Department UnsolicitedStart: 08-12-2024 End: 98-45-4503Txtlvjpe Result EncounterDaja CUELLAR Work Phone: noms External Department UnsolicitedStart: 08-02-2024 ambulatoryAurora X OrzechFacility:EU [place]uskyStart: 08-01-2024 End: 31-34-6954xrcnjdkctwKEBBNPPQ E PERRYFacility:EU BellevueStart: 07-20-2024 End: 38-75-5425qcttikjaboGJFI F BOWERNot AvailableStart: 07-18-2024 End: 99-67-8258Zqwzfq Jesus Ramírez MD Work Phone: noms FNR FMStart: 07-18-2024 End: 62-06-3693Otnfuf Jesus Ramírez MD Work Phone: NOMS FNR FMStart: 07-18-2024 End: 69-89-1597Dosmhe outpatient visit 15 minutesSri Ramírez MD Work Phone: NOMS FNR FMComment on above:Mass of lower outer quadrant of left breast (Primary Dx)Start: 07-18-2024 End: 69-09-6302emplahipjpPMDC F BOWERNot AvailableStart: 06-10-2024 End: 84-36-0437Qolfjg flowsheetIntelePeer SPECIAL EDUCATION TUTOR Work Phone: NOMS FNR FMStart: 06-10-2024 End: 23-71-4475Pbviky flowsheetBanner Del E Webb Medical CenterAppy Hotel SPECIAL EDUCATION TUTOR Work Phone: NOMS FNR FMStart: 06-10-2024 End: 00-60-1643Mwqdzfhcq encounterSri Ramírez MD Work Phone: NOMS FNR FMStart: 06-10-2024 End: 36-70-3661Beizsm outpatient visit 25 minutesBresan carlos [facility] [employer] SPECIAL EDUCATION TUTOR Work Phone: NOMS FNR FMComment on above:Encounter for removal of sutures (Primary Dx); Cellulitis of finger of right handStart: 06-10-2024 End: 76-05-6663xaxoulghfdBYJRNL MAJORSNot AvailableStart: 05-23-2024 End: 16-97-5143Odqzfg flowsGermania CUELLAR Work Phone: NOMS BCP OBStart: 05-23-2024 End: 88-41-9300Pohapt flowsGermania CUELLAR Work Phone: NOMS BCP OBStart: 59-42-9826ebgnibkpnmTTECJSRH E PATRICIA Facility: [place]vueStart: 05-23-2024 End: 54-94-5656ffkbtgrnfgISG RAMEYNot AvailableStart: 05-23-2024 End: 45-03-3377Jhlrus outpatient visit 15 minutesDaja CUELLAR Work Phone: NOMS BCP OBComment on above:Vaginal discharge; Vaginal burningStart: 05-16-2024 End: 53-39-1498eindnxdeziLWOLTGVB E PERRYFacility:EU [place]Start: 05-16-2024 End: 91-68-2688Dqmocjt encounter procedureJENNIFER E PATRICIA [facility] Vanesa start: 04-20-2024 End: 13-35-4019Ujctuu Minnie CUELLAR Work Phone: noms BCP OBStart: 04-20-2024 End: 99-96-8550Uouros Minnie CUELLAR Work Phone: noms BCP OBStart: 04-20-2024 End: 54-75-3926Ljdvaz follow up visit related to original pxCorey Maxim DO Work Phone: noms BCP OBComment on above:Postoperative examination Start: 04-20-2024 End: 62-99-2227bnnrqnqietHBFQS FAZIONot AvailableStart: 04-01-2024 End: 58-28-7228Jntemjcnv Result EncounterGeneric External Data ProviderNOMS External Department UnsolicitedStart: 04-01-2024 End: 58-51-5802Vmnsicwhj Result EncounterGeneric External Data ProviderNOMS External Department UnsolicitedStart: 03-22-2024 End: 38-20-0434Ujoyrbhjb Result EncounterGeneric External Data ProviderNOMS External Department UnsolicitedStart: 03-22-2024 End: 35-33-9918Tmeecfinj Result EncounterGeneric External Data ProviderNOMS External Department UnsolicitedStart: 03-21-2024 End: 82-14-4666qifhxcepjtAgxcps J GaleaFacility:FTMCStart: 03-21-2024 End: 06-26-1534Twb Drop offAlyshayden [facility] Start: 03-21-2024 End: 21-71-1443jsraggxmfwWmyozz X OrzechFacility:EU [place]vueStart: 03-21-2024 End: 25-44-6500Tdmrzwc encounter procedureAurora X Orzech [facility] start: 03-09-2024 End: 77-15-5791Tdzuel flowsheetCorey Maxim DO Work Phone: noms BCP OBStart: 03-09-2024 End: 66-18-4708Xjwfol flowsheetCorey Maxim DO Work Phone: noms [facility] OBStart: 03-09-2024 End: 43-15-2245Vtzqve outpatient visit 15 minutesCorey Maxim DO Work Phone: noMS [facility] OBComment on above:Pre-op evaluation; Pelvic pain in female; Bacterial vaginosisStart: 03-09-2024 End: 80-62-0002Bbfsygxpuymga examination doneCorey Maxim DO Work Phone: NOMS HealthcareStart: 03-09-2024 End: 99-97-7202padfkbvrcsHOTCB FAZIONot AvailableStart: 03-01-2024 End: 58-72-6405xujgjjkwwlUpqwiq X OrzechFacility:EU Bellevtart: 03-01-2024 End: 75-88-7833Krwpyhy encounter procedureAurora X Orzech [facility] start: 02-15-2024 End: 99-91-7060Pfsxmt flowsheetCorey Maxim DO Work Phone: noms BCP OBStart: 02-15-2024 End: 20-07-9664Bbzdzz flowsheetCorey Maxim DO Work Phone: noms [facility] OBStart: 02-15-2024 End: 77-44-6535Qvpkck outpatient visit 15 minutesCorey Maxim DO Work Phone: NOMS [facility] OBComment on above:Bacterial vaginosis; Urinary tract infection without hematuria, site unspecified; Vaginal odor; Bacterial infection due to mycoplasmaStart: 02-03-2024 End: 44-60-5766Mvawgjbcj Result EncounterGeneric External Data ProviderNOMS External Department UnsolicitedStart: 02-03-2024 End: 38-62-7253Otbknobad Result EncounterGeneric External Data ProviderNOMS External Department UnsolicitedStart: 01-27-2024 End: 77-67-6830Nxiyfw flowsGermania CUELLAR Work Phone: noms [facility] OBStart: 01-27-2024 End: 81-53-2965Psrwoc flowsheetDaja CUELLAR Work Phone: NOMS [facility] OBStart: 01-27-2024 End: 68-46-9557Yngglqrnq Result EncounterGeneric External Data ProviderNOKY External Department UnsolicitedStart: 01-27-2024 End: 45-14-9314Pcmtfwt encounter procedureDaja CUELLAR Work Phone: noms [facility] Work Phone: Start: 01-27-2024 End: 48-58-3575Aekgpbsx preventive med est patient 18-39 yrsDaja Connor CUELLAR Work Phone: noms [facility] OBComment on above:Well woman exam with routine gynecological examStart: 01-11-2024 End: 47-88-6227Ceamsc flowsheetCorey Maxim DO Work Phone: NOMS BCP OBStart: 01-11-2024 End: 85-09-8590Bjdlgqab Result EncounterCorey Maxim DO Work Phone: noms External Department UnsolicitedStart: 01-11-2024 End: 99-64-7258Saqefhci Result EncounterCorey Maxim DO Work Phone: noms External Department UnsolicitedStart: 01-11-2024 End: 13-79-4004Gzmfwo outpatient visit 15 minutesCorey Maxim DO Work Phone: noms [facility] OBComment on above:Pelvic pain in female Start: 09-22-2023 End: 75-33-3793Kfhtbmzgl department patient visitSRI [facility] CenterStart: 05-03-2022 End: 35-00-7837nvssqjrcwnST SRI Olicility:O4Xdmov: 06-19-2021 End: 36-97-5398xskokgbzapINFEHUOOSF [facility] HospitalStart: 06-19-2021 End: 80-17-7073Vfetimtqub hospital visit by Steph Gardner [address] RadiologyComment on above:Ureteral stone with hydronephrosis Ureteral stone with hydronephrosis; Suprapubic pain; Dysuria; Urgency of urinationStart: 06-12-2021 End: 35-07-2180curjmdhqfwJDSHIIUOhioHealth Arthur G.H. Bing, MD, Cancer Centertart: 06-12-2021 End: 39-73-4352Azihmkbdhy hospital visit by Reji Ramírez MD Work Phone: mthz LaboratoryComment on above:Ureteral stone with hydronephrosis; Suprapubic pain; Dysuria; Urgency of urinationStart: 05-21-2021 End: 83-16-1741brduzxxhgcFR JOSE FAZIOFacility:H1 Procedures DateProcedureProcedure DetailPerforming ClinicianStart: 90-17-6107IY OB BPP W NON-STRESSCorey Maxim DO Work Phone: Start: 19-41-5738NTO UA (CLEAN/CATCH) PUBLIC AFFAIRS DIRECTOR/MICRO IF IND.Jose Maxim DO Work Phone: Start: 60-14-0829Iwaou dip stick/tablet rgnt non-auto w/o micrscpCorey Maxim DO Work Phone: Start: 75-11-1855SR OB GROWTHGeneric External Data ProviderStart: 10-75-7324Kpfnh dip stick/tablet rgnt non-auto w/o micrscpCorey Maxim DO Work Phone: Start: 68-29-0406Varae dip stick/tablet rgnt non-auto w/o micrscpKrmikael Gunter NP Work Phone: Start: 92-46-0519Lafui dip stick/tablet rgnt non-auto w/o micrscpAmy Connor CUELLAR Work Phone: Start: 17-52-4583MVVNOLA 1 HOURCorey Maxim DO Work Phone: Start: 02-27-9944KY for multiple gestation limitedGeneric External Data ProviderStart: 96-55-2368Xysjo dip stick/tablet rgnt non-auto w/o micrscpCorey Maxim DO Work Phone: Start: 24-32-2716Stqez dip stick/tablet rgnt non-auto w/o micrscpCorey Maxim DO Work Phone: Start: 18-71-1873FL OB ANATOMYGeneric External Data ProviderStart: 36-03-4575RW OB CERVICAL LENGTHCorey Maxim DO Work Phone: Start: 23-07-0752AZK, SERUM, OPEN SPINA BIFIDAGeneric External Data ProviderStart: 89-90-7374Yeyns dip stick/tablet rgnt non-auto w/o micrscpCorey Maxim DO Work Phone: Start: 71-33-3459WKXJXNENO VAGINITIS (HTRX)Daja CUELLAR Work Phone: Start: 29-72-8124Hhcvj dip stick/tablet rgnt non-auto w/o micrscpAmy Connor CUELLAR Work Phone: Start: 77-82-3590Bvhlx dip stick/tablet rgnt non-auto w/o micrscpCorey Maxim DO Work Phone: Start: 59-68-7972PXP TESTGeneric External Data ProviderStart: 10-91-6966Akkal dip stick/tablet rgnt non-auto w/o micrscpCorey Maxim DO Work Phone: Start: 58-79-5524Rbxhtrb bacterial quanttative colony count urineDaja Ryan ALISA Work Phone: Start: 86-16-1224FJTEZ CULTURE - FRMCGeneric External Data ProviderStart: 38-31-4079WQC CBC WITH AUTO DIFFCorey Maxim DO Work Phone: Start: 34-40-5318AO ABDOMEN 1VGeneric External Data ProviderStart: 49-91-6148DY RENAL BIGeneric External Data ProviderStart: 19-16-5525Ixydb dip stick/tablet rgnt non-auto w/o micrscpCorey Maxim DO Work Phone: Start: 52-54-5514TB PELVISGeneric External Data ProviderStart: 15-45-8928XDM,APTIMA HPV,AGE GDLNDaja Ryan ALISA Work Phone: Start: 43-84-3306Rsek cerv/vag auto thin layer prep mnl screenCorey Maxim DO Work Phone: Start: 55-56-3400AOJQKIK TRACT INFECTION (HTRX)Jose Maxim DO Work Phone: Start: 01-11-2024 End: 79-34-4188Bcvst dip stick/tablet rgnt non-auto w/o micrscpCorey Maxim DO Work Phone: Start: 81-42-7846Cmlmkrxlxe exam abdomen 1 viewBethany W Parsell HOUSEHOLD ASSISTANT - ASSOCIATE VICE PRESIDENT Work Phone: Start: 45-14-8465Ch retroperitoneal real time w/image completeBethany W Parsell HOUSEHOLD ASSISTANT - ASSOCIATE VICE PRESIDENT Work Phone: Start: 99-71-6446Tkjfw dip stick/tablet reagent auto microscopyBethany W Parsell HOUSEHOLD ASSISTANT - ASSOCIATE VICE PRESIDENT Work Phone: Start: 03-91-3316XydgegcsegoFrwiez Orzech Plan of Treatment DateCare ActivityDetailAuthorStart: 69-13-2968TBjZ/Tdap/Td vaccine (8 - Td or Tdap)DTaP/Tdap/Td vaccine (8 - Td or Tdap)[facility]Start: 06-24[facility]2030 DTaP/Tdap/Td Vaccines (8 - Td or Tdap)DTaP/Tdap/Td Vaccines (8 - Td or Tdap)NOMS HealthcareStart: 02-21-2025 End: 15-31-5661Obzcdbl encounter procedureNOMS [place] OBGYNComment on above: ArrivedStart: 02-07-2025 End: 47-89-3021Rpunqno encounter procedureNOMS [place] OBGYNComment on above: ArrivedStart: 02-06-2025 End: 03-18-0959Kugueek encounter procedureNOMS BCP OBStart: 01-24-2025 End: 44-53-2917YF for pregnancyNOMS HealthcareComment on above:Expected: 01/24/2025, Expires: 05/27/2025Start: 01-24-2025 End: 29-28-8844Uoocifo encounter jemdwumfz17/14/2025 10:00 AM EDT Routine [facility] [address] [place] [phone] Jose Pan DO [address] [place], [place] [id number] NOMS [facility] OBGYNStart: 01-24-2025 End: 15-80-1035Lkdpeohgbyjf / ancillary services ennhbfhjjb03/14/2025 9:30 AM EDT Ancillary Procedure NOMGabriella [place] [facility] [address] [place] [phone] NOMS [facility]anes[facility] OBGYNStart: 01-23-2025 End: 11-38-6612VC for pregnancyUS OB limited 1+ fetuses Imaging Routine Encounter for ultrasound recheck of choroid plexus cyst, antepartum ([facility]) Expected: 01/23/2025 (Approximate), Expires: 01/23/2026[facility] Work Phone: comment on above:Expected: 01/23/2025 (Approximate), Expires: 01/23/2026Start: 01-09-2025 End: 21-19-5763IG for pregnancyUS OB limited 1+ fetuses Imaging Routine Choroid plexus cyst Expected: 01/09/2025, Expires: 04/10/2025[facility] Work Phone: comment on above:Expected: 01/09/2025, Expires: 04/10/2025Start: 01-09-2025 End: 64-60-8341Kyafhbx encounter procedureNOMS [place] OBGYNComment on above: ArrivedStart: 12-28-2024 End: 14-52-3141Pygctvl encounter kjfgoshcb28/17/2025 1:20 PM EDT Routine NOMGabriella [place] OBGYN [address] [place], [id number] Jose Pan DO [address] [place] [address] NOMS [facility]anesa OBGYNStart: 00-96-2730SYKJZ- 19 Vaccine ( season)COVID-19 Vaccine ( season)NOMS HealthcareStart: 88-70-0410Iabjvnvac vaccinationNOKY HealthcareStart: 12-08-2024 End: 49-53-4937CI for pregnancyUS OB 14+ weeks anatomy scan Imaging Routine Screening, , for anatomic survey ([facility]) Expected: 12/08/2024, Expires: 02/07/2025NOKY Healthcare Work Phone: comment on above:Expected: 12/08/2024, Expires: 02/07/2025Start: 12-05-2024 End: 41-06-9488GJQ panel - Blood by Automated countCBC Lab Routine Diabetes mellitus screening Expected: 12/05/2024 (Approximate), Expires: 12/05/2025[facility] Work Phone: comment on above:Expected: 12/05/2024 (Approximate), Expires: 12/05/2025Start: 12-05-2024 End: 19-35-5816Hcacfekvnmq of glucose 1 hour after glucose challenge for glucose tolerance testGlucose tolerance, 1 hour Lab Routine Diabetes mellitus screening Expected: 12/05/2024 (Approximate), Expires: 12/05/2025NOKY HealthcareComment on above:Expected: 12/05/2024 (Approximate), Expires: 12/05/2025Start: 12-05-2024 End: 52-99-3873EZ for pregnancyUS OB 14+ weeks anatomy scan Imaging Routine Screening, , for anatomic survey ([facility]) Expected: 12/05/2024, Expires: 03/07/2025NO[facility] Work Phone: comment on above:Expected: 12/05/2024, Expires: 03/07/2025Start: 12-05-2024 End: 00-86-4246Umerlhuiobxn / ancillary services jwmbnyaeli16/25/2025 1:00 PM EDT Ancillary Procedure NOMS [facility] ROBIN [address] [place] [address] [place] [address] AAZY Vanesa OBGYNStart: 11-07-2024 End: 47-12-9716Oihylzr encounter procedureNOMS BCP OBStart: 10-10-2024 End: 75-82-8270Qhwfmdy encounter procedureNOMS BCP OBComment on above:Arrived Start: 10-10-2024 End: 37-91-6911Cbbar fetoprotein, maternalAlpha fetoprotein, maternal Lab Routine Second trimester ([facility]) Expected: 10/10/2024 (Approximate), Expires: 12/10/2024NOKY HealthcareComment on above:Expected: 10/10/2024 (Approximate), Expires: 12/10/2024Start: 10-10-2024 End: 82-50-7094KZ for pregnancyUS OB 14+ weeks anatomy scan Imaging Routine Screening, , for anatomic survey ([facility]) Expected: 10/10/2024, Expires: 01/10/2025NO[facility] Healthcare Work Phone: comment on above:Expected: 10/10/2024, Expires: 01/10/2025Start: 09-28-2024 End: 02-98-2372Qxcqpia encounter ieajhfhwa92/18/2025 2:50 PM EDT Office Visit NOM[facility] OB [address] [place] [address] Daja Ryan PA [address] [place], [place] [id number] [facility]SHRINERS [facility] OBComment on above:ArrivedStart: 09-14-2024 End: 73-75-2869Wlbavfi encounter qonsyysje26/04/2025 1:40 PM EDT Routine NOM[facility] OB [address] [place] [address] Jose Pan DO [address] [place], [place] [id number] NOMS BCP OBStart: 08-18-2024 End: 12-41-1346UMI/RhABO/Rh Lab Routine Missed menses , unspecified gestational age Expected: 08/18/2024 (Approximate), Expires: 08/18/2025NOKY HealthcareComment on above:Expected: 08/18/2024 (Approximate), Expires: 08/18/2025Start: 08-18-2024 End: 96-36-2208Ronjw type and Indirect antibody screen panel - BloodType and screen Lab Routine Missed menses , unspecified gestational age Expected: 08/18/2024 (Approximate), Expires: 08/18/2025[facility] Work Phone: comment on above:Expected: 08/18/2024 (Approximate), Expires: 08/18/2025Start: 08-18-2024 End: 88-98-6730Pzgym of abuse panel - Urine by Screen methodRapid drug screen, urine Lab Routine , unspecified gestational age Encounter for supervision of normal first in first trimester Expected: 08/18/2024 (Approximate), Expires: 08/18/2025NOKY HealthcareComment on above:Expected: 08/18/2024 (Approximate), Expires: 08/18/2025Start: 08-18-2024 End: 02-98-9345nriayceavg97/08/2025 1:00 PM EDT Initial [facility] OB [address] [place] [place] [address] XBVE BCP OBStart: 08-18-2024 End: 76-64-3596Pdnctmllnnts / ancillary services ygthvlnyva96/08/2025 12:30 PM EDT Ancillary Procedure [facility] OB [address] [place] [address] KRXG BCP OBStart: 07-20-2024 End: 74-90-0369Yzwckeuskrew / ancillary services quljtztgsb82/09/2025 3:30 PM EDT Ancillary Procedure [facility] [address] [place] [address] FCPV FNR ULTRASOUNDStart: 07-18-2024 End: 05-47-0200GT Breast - leftLeft breast US complete Imaging Routine Mass of lower outer quadrant of left breast Expected: 07/18/2024, Expires: 09/17/2025 [facility] Work Phone: Comment on above:Expected: 07/18/2024, Expires: 09/17/2025Start: 07-18-2024 End: 70-88-6349Swquwqj encounter hvydqvqka73/07/2025 8:20 AM EDT Office Visit [facility] [address] [facility] [place] [phone] Sri Ramírez MD [address] [place] [address] ArrivedNOMS FNR FMComment on above:ArrivedStart: 06-10-2024 End: 28-01-1294Lpbmcar encounter szvbzkylp00/28/2025 8:00 AM EST Office Visit [facility] [address] [place] [phone] Reggie Donovan NP [address] [facility] [place] [address] ArrivedLOUISEKY FNR FMComment on above:ArrivedStart: 04-20-2024 End: 66-48-4880Lwegubv encounter ldelfxjpt65/08/2025 8:50 AM EST Office Visit [facility] OB [address] [place] [place] [address] Daja Ryan PA [address] [place] [address] ArrivedNOMS BCP OBComment on above:ArrivedStart: 03-09-2024 End: 09-26-5772Rhuevrc encounter ytufrpqby90/27/2024 11:20 AM EST Consult [facility] OB [address] [place] [address] Jose Pan DO [address] [place] [address] ArrivedNOMS BCP OBComment on above:ArrivedStart: 02-15-2024 End: 16-75-3907Tskybvp encounter procedureNOMS BCP OBComment on above:Arrived Start: 02-03-2024 End: 26-27-5629Gfsvcpuresbf / ancillary services rgnpykdofh07/23/2024 10:30 AM EDT Ancillary Procedure [facility] OB [address] [place] [address] NOMS BCP OBStart: 01-27-2024 End: 55-96-3336Rkkfjey encounter procedureNOMS BCP OBComment on above:Arrived Start: 01-20-2024 End: 73-60-9301Mqlvslqljpic / ancillary services asmohtuapy32/09/2024 8:30 AM EDT Ancillary Procedure [facility] OB [address] [place] [address] NOMS BCP OBStart: 01-11-2024 End: 68-52-7023WJXSQWGC(R) ADVANCED VAGINITIS PLUS, TMASURESWAB(R) ADVANCED VAGINITIS PLUS, TMA Pathology and Cytology Routine Pelvic pain in female Expect ed: 01/11/2024 (Approximate), Expires: 01/10/2025[facility] Work Phone: comment on above:Expected: 01/11/2024 (Approximate), Expires: 01/10/2025Start: 01-11-2024 End: 40-39-2627CA for pregnancyUS PELVIS-TRANSVAG IF INDICATED Imaging Routine Pelvic pain in female Expected: 01/11/2024 (Approximate), Expires: 01/10/2025 [facility] HealthcareComment on above:Expected: 01/11/2024 (Approximate), Expires: 01/10/2025Start: 45-20-4039Ctkcpfjud vaccinationInfluenza Vaccine (#1)[facility]Start: [facility]-27-20[facility] End: 87-89-2933Ixpybeu encounter eivdtxfxg14/17/2022 Office Visit Urology Jason Bradley, HOUSEHOLD ASSISTANT - ASSOCIATE VICE PRESIDENT [address] [place], [phone] [facility]Start: 06-19-2021 End: 78-61-5569Wkaobpd encounter ydwzqxvnz88/09/2022 Appointment [facility]iologyHol[facility] UltrasoundStart: 79-43-8133HJXPA-19 Vaccine (3 - Booster for Pfizer series)COVID-19 Vaccine (3 - Booster for Pfizer series)[facility]Start: 76-49-7454Vdtwgkrnt vaccinationFlu vaccine (#1)[facility] HospitalStart: 2018 Screening for malignant neoplasm of cervixPap smearMartins Ferry Hospital HealthStart: 2013 Screening for Chlamydia trachomatisChlamydia screenMartins Ferry Hospital HealthStart: 02-11-2012 HIV screeningHIV screenMartins Ferry Hospital HealthStart: [id number] of varicella vaccinationVaricella Vaccines (1 of 2 - 13+ 2-dose series)[facility] HealthcareStart: [id number] ScreenDepression ScreenMartins Ferry Hospital HealthStart: 2003 Pneumococcal 0-64 years Vaccine (1 of 2 - PPSV23)Pneumococcal 0-64 years Vaccine (1 of 2 - PPSV23)[facility]: [id number] vaccine (1 of 2 - 2- dose childhood series)Varicella vaccine (1 of 2 - 2-dose childhood series)[facility]: [id number] C screeningHepatitis C screenMercy Health Bacteria identified in Urine by CultureUrine culture Microbiology Routine Pelvic pain in female Ordered: 01/11/2024[facility] HealthcareComment on above:Ordered: 4Bacteria identified in Urine by CultureUrine culture Microbiology Routine 08/12/2024 8:15 PM [facility] Work Phone: bacteria identified in Urine by CultureUrine culture Microbiology Routine Missed menses Ordered: 08/18/2024[facility] HealthcareComment on above:Ordered: 5CBC W Auto Differential panel - BloodCBC and differential Lab Routine Missed menses , unspecified gestational age Ordered: 08/18/2024[facility] HealthcareComment on above:Ordered: 5CHLAMYDIA TRACHOMATIS (GENITO/STI)CHLAMYDIA TRACHOMATIS (GENITO/STI) Lab Routine Vaginal odor Ordered: 02/15/2024[facility] HealthcareComment on above:Ordered: 02/15/2024 CHLAMYDIA TRACHOMATIS (GENITO/STI)CHLAMYDIA TRACHOMATIS (GENITO/STI) Lab Routine Pelvic pain in female Ordered: 01/11/2024[facility] HealthcareComment on above: Ordered: 4CHLAMYDIA TRACHOMATIS (GENITO/STI)CHLAMYDIA TRACHOMATIS (GENITO/STI) Lab Routine Vaginal discharge Vaginal burning Ordered: 05/23/2024 [facility] HealthcareComment on above:Ordered: 5CHLAMYDIA TRACHOMATIS (GENITO/STI)CHLAMYDIA TRACHOMATIS (GENITO/STI) Lab Routine Screen for STD (sexually transmitted disease) Ordered: 09/28/2024[facility] HealthcareComment on above:Ordered: 09/28/2024 End: [id number], [facility]Mer[facility] Work Phone: comment on above:1 Occurrences starting 06/12/2021 until 2Cytology Cervical or vaginal smear or scraping studyPap Smear Pathology and Cytology Routine Well woman exam with routine gynecological exam Ordered: 01/27/2024[facility] Healthcare Work Phone: Comment on above:Ordered: 01/27/2024Hemoglobin A1c/Hemoglobin.total in BloodHemoglobin A1c Lab Routine Missed menses , unspecified gestational age Ordered: 08/18/2024[facility] HealthcareComment on above: Ordered: 08/18/2024Hepatitis B virus surface Ag [Presence] in Serum or Plasma by ImmunoassayHepatitis B surface antigen Lab Routine Missed menses , unspecified gestational age Ordered: 08/18/2024[facility] HealthcareComment on above: Ordered: 08/18/2024Hepatitis C virus Ab [Presence] in Serum or Plasma by ImmunoassayHepatitis C antibody Lab Routine Missed menses , unspecified gestational age Ordered: 08/18/2024[facility] HealthcareComment on above:Ordered: 08/18/2024HIV-1/HIV-2 antigen/antibody combination immunoassayHIV-1 and HIV-2 antibodies Lab Routine Missed menses , unspecified gestational age Ordered: 08/18/2024[facility] HealthcareComment on above:Ordered: 08/18/2024Neisseria gonorrhoeae DNA [Presence] in Unspecified specimen by REKHA with probe detection Neisseria gonorrhea DNA probe, direct Lab Routine Vaginal odor Ordered: 02/15/2024[facility] HealthcareComment on above:Ordered: 02/15/2024Neisseria gonorrhoeae DNA [Presence] in Unspecified specimen by REKHA with probe detection Neisseria gonorrhea DNA probe, direct Lab Routine Pelvic pain in female Ordered: 01/11/2024[facility] HealthcareComment on above:Ordered: 01/11/2024Neisseria gonorrhoeae DNA [Presence] in Unspecified specimen by REKHA with probe detection Neisseria gonorrhea DNA probe, direct Lab Routine Vaginal discharge Vaginal burning Ordered: 05/23/2024[facility] HealthcareComment on above:Ordered: 05/23/2024 Neisseria gonorrhoeae DNA [Presence] in Unspecified specimen by REKHA with probe detectionNeisseria gonorrhea DNA probe, direct Lab Routine Screen for STD (sexually transmitted disease) Ordered: 09/28/2024[facility] HealthcareComment on above:Ordered: 09/28/2024Reagin Ab [Presence] in Serum by RPRRPR Lab Routine Missed menses , unspecified gestational age Ordered: 08/18/2024[facility] HealthcareComment on above:Ordered: 08/18/2024Rubella antibody, IgGRubella antibody, IgG Lab Routine Missed menses , unspecified gestational age Ordered: 08/18/2024[facility]:Ordered: 08/18/2024 SURESWAB(R) ADVANCED VAGINITIS PLUS, TMASURESWAB(R) ADVANCED VAGINITIS PLUS, TMA Pathology and Cytology Routine Bacterial vaginosis Vaginalodor Ordered: 02/15/2024[facility] [employer] Work Phone: comment on above:Ordered: 02/15/2024SURESWAB(R) ADVANCED VAGINITIS PLUS, TMASURESWAB(R) ADVANCED VAGINITIS PLUS, TMA Pathology and Cytology Routine Vaginal discharge Vaginal burning Ordered: 05/23/2024[facility] Work Phone: comhtjl on above:Ordered: 05/23/2024SURESWAB(R) ADVANCED VAGINITIS PLUS, TMASURESWAB(R) ADVANCED VAGINITIS PLUS, TMA Pathology and Cytology Routine Screen for STD (sexually transmitted disease) Ordered: 09/28/2024[facility] Work Phone: comqmai on above:Ordered: 09/28/2024[facility] Lab Routine 08/12/2024 8:15 PM [facility] [place], [facility] Immunizations Immunization DateImmunizationNotesCare DacgrogwNpdpzhen88-31-7559tltcjptduu, tetanus toxoids and pertussis vaccineCorey Maxim DO Work Phone: [phone] [place], [place] [address]Drsiebptlh25-74-1019subhg papilloma virus vaccine, quadrivalentCorey Maxim DO Work Phone: [phone] CenterKdxwiisgsz13-50-6857tkoev papilloma virus vaccine, quadrivalentCorey Maxim DO Work Phone: [phone] [place], [place] [address]Wjqtahxirs54-02-1588hmxyi papilloma virus vaccine, quadrivalentCorey Maxim DO Work Phone: [phone] [place], [place] [address]Bcmqaiaohw11-78-8104cvlepoa toxoid, reduced diphtheria toxoid, and acellular pertussis vaccine, adsorbedCorey Maxim DO Work Phone: [phone] [place], [place] [address]Tafwnnotnd56-54-8873zkhrdkhrqz, tetanus toxoids and acellular pertussis vaccine, unspecified formulationCorey Maxim DO Work Phone: [phone] [place] [address] Work Phone: [phone], mumps and rubella virus vaccine Jose Maxim DO Work Phone: [phone] [place], [place] [address]Lmvxtdmhxy79-58-9163iywrmzhhnb vaccine, inactivatedCorey Maxim DO Work Phone: [phone] [place], [place] [address]Ljwpjchfbx44-37-0196wzmthmyxyr, tetanus toxoids and acellular pertussis vaccine, unspecified formulationCorey Maxim DO Work Phone: [phone] [place], [place] [address]Ypernlsabf11-36-0979jxavllblpxa influenzae type b vaccine, PRP-T conjugateCorey Maxim DO Work Phone: [phone] [place], [place] [address]Ounpgrcjac30-25-1296ozgyxrs, mumps and rubella virus vaccineCorey Maxim DO Work Phone: [phone] [place], [place] [address]Pqvnxejfkt76-54-1059tovvpoijfn vaccine, inactivatedCorey Maxim DO Work Phone: [phone] [place], [place] [address]Ssvsgpaxzw84-86-4182qyrkrbxbpj, tetanus toxoids and acellular pertussis vaccine, unspecified formulationCorey Maxim DO Work Phone: [phone] [place], [place] [address]Rfajzrlwzx89-51-1790ppzpcoavkaa influenzae type b conjugate and Hepatitis B vaccineCorey Maxim DO Work Phone: [phone] [place], [place] [address]Lbxcresqlx47-30-1253ggwsgkjsmp, tetanus toxoids and acellular pertussis vaccine, unspecified formulationCorey Maxim DO Work Phone: [phone] [place], [place] [address]Caxjdvkrpn08-65-5575ohsfaoicfrs influenzae type b vaccine, conjugate unspecified formulationCorey Maxim DO Work Phone: [phone] [place], [place] [address]Ovyqrypdel81-66-1972vienresaoh vaccine, inactivatedCorey Maxim DO Work Phone: [phone] [place], [place] [address]Nozozpcmdn50-15-0124erjluquaah, tetanus toxoids and acellular pertussis vaccine, unspecified formulationCorey Maxim DO Work Phone: [phone] [place], [place] [address]Dmbnpfrjxq34-24-5556mdhpzqpnicz influenzae type b vaccine, conjugate unspecified formulationCorey Maxim DO Work Phone: [facility] CenterPlhjyiihsv19-33-4874ovcqytyhg B vaccine, pediatric or pediatric/adolescent dosageCorey Mxaim DO Work Phone: [facility] CenterYelkhofcif69-29-5938uelaxbvukg vaccine, inactivatedCorey Maxim DO Work Phone: [facility] CenterPwqavtkwtp56-29-4858fwlidgqbt B vaccine, pediatric or pediatric/adolescent dosageCorey Maxim DO Work Phone: [facility] Payers DatePayer CategoryPayerPolicy [id number] Member Subscriber Plan / Payer (Effective 2023-Present) Name: Faheem Babb Relation to Subscriber: Spouse Name: MIHAI BABB Date of : 1993 Address: [address] [place] [address] Payer ID: Not on file Type: Not on file Address: [address] [place] [phone] BCBS [id number] 2023-Present [phone] [address] [place] [address] [id number] 2021MedicaidBUCKEYEMedicaidBU[place] MEDICAID [place] [id number] 2020-Present [address] [place] [id number] Medicaid (Managed Care)[id number] [id number] 2.16.840.1.918756.3.579.2. [id number] 2.16.840.1.262326.3.57[id number] 2.16.840.1.179954.3.579.2.[id number] 2.16.840.1.755072.3.579.2.55859-33-1863Ybfxlis2735921 2.16.840.1.425201.3.579.2.53098-35-5390Ysygvqf3109374 2.16.840.1.808102.3.579.2.26[id number] 2.16.840.1.714002.3.579.2.60922-23-7138Pgmxrsk10843587 2.16.840.1.030922.3.57[id number] 2.16.840.1.464703.3.579.2.33107-05-8079Dvxprxe11014571 2.16.840.1.965713.3.579.2.96774-56-7278Cbijkvm17051794 2.16.840.1.279117.3.579.2.30421-67-7142Ryvpusz93890780 2.16.840.1.901502.3.579.2.37779-94-9662Qytscbz70676640 2.16.840.1.847784.3.579.2.40508-17-8029Lckivrj94072978 2.16.840.1.293149.3.579.2.96240-84-8154Xyruhqk47305332 2.16.840.1.599555.3.579.2.428770-27-6345Ydlhcke80244282 2.16.840.1.453608.3.579.2.087016-71-4057Allvheu50859148 2.16.840.1.858072.3.579.2.411995-85-8271Ygtymcm28418102 2.16840.1.102596.3.579.2.812175-06-4784Uiltkro90249310 2.160.1.417513.3.579.2.972451-44-3522Lyhfzeq07574277 2.840.1.767549.3.579.2.235769-13-8929Qppipmc62348446 2.840.1.556409.3.579.2.804487-69-3205Bnzfskt07529787 2.16840.1.578854.3.579.2.545101-18-6005Cdtjzkz41452523 2.840.1.875446.3.579.2.598027-20-0639Xmeelrf90204173 2.16840.1.564387.3.579.2.059752-26-2716Mqtirli87551385 2.840.1.789685.3.579.2.161580-77-9935Kmnuhsq4637817 2.16840.1.955153.3.579.2.163592-53-8425Xypdlsx7138334 2.840.1.231262.3.579.2.998678-95-7221Clcimiq7651118 2.16840.1.804332.3.579.2.221387-12-9353Wxcudpm2664918 2.16.840.1.839232.3.579.2.277249-04-9872Xdwaska1105184 2.16.840.1.715799.3.579.2.211940-07-5666Nfjqwxu8106394 2.16.840.1.998967.3.579.2.430170-62-5502Lfbkbxx5681644 2.16.840.1.188727.3.579.2.210665-06-1054Bwwmuoe3475072 2.16.840.1.450415.3.579.2.200003-23-6031HpeerieHJD396215408 1.2.840.152364.1.13.239.2.7.3.222932.37215-93-1718Ptlvmsm226526961851 1.2.840.387293.1.13.239.2.7.3.466261.52127-00-0946Vhzzcax5919584911455 Social History DateTypeDetailFacilityStart: 06-12-2021 End: 72-00-3621Inyvykz smoking status NHISEx-smokerGalion Community HospitalHistory of tobacco useCigarette SmokerMartins Ferry Hospital [employer] Phone: start: 06-12-2021 End: 19-39-3996Tdxufavhyp smoked current (pack per day) - Reported0.25[facility] HealthcareStart: 06-12-2021 End: 30-85-4605Qnuhgov use and exposureSmokeless tobacco non-userPromedica Flower HospitalVolta Phone: start: 06-31-4269Jpnatko intakeCurrent non-drinker of alcohol (finding)[facility] [employer] Phone: start: 19-03-9788Oiw Assigned At BirthNot on AcuteCare Health SystemVolta Phone: History of tobacco useCurrent smokerEll[facility]l Cancer Center Start: 01-11-2024 End: 31-08-9734Xebqizexq beverage intakeLifetime non-drinker (finding)[facility] HealthcareStart: 09-24-2023 End: 55-09-0898O3325 Health LiteracyJORDAN VALLEY [facility]ENTER HealthcareStart: 59-25-1919Rre often do you need to have someone [...] all the time - these days [OSQ]Rather muchNOKY Healthcare(I/We) worried whether (my/our) food would run out before (I/we) got money to buy more.Never trueNOKY HealthcareStart: 51-06-4531Giojjgi Commentcaffeine: 1-2 cups coffee or energy drink occasionallyNOKY HealthcareStart: 46-11-2280XnsmuldbnEBUN Healthcare Functional Status WafrQbgfgadykdUbuqpbQoegotsy67-97-2824Oirovlf Health Questionnaire 2 item (PHQ- 2) [Reported][facility] Cancer CenterVsqvmoamsy02-08-4925Uiqgaxpfuj StatusN/AExecutive Urology of [facility] Clinical Notes 01-11-2024 to 02-07-2025 Note Date & XqmkWccuTdksfihv96-15-7873 History of Present illness Narrative* Ana Mcintosh [...] depressed, moderate ([facility]) 09/06/2022 Complication of intrauterine device (IUD) 09/06/2022 Inattention 09/06/2022 Irregular menses 09/06/2022 Irritable bowel syndrome with diarrhea 09/06/2022 Menstrual cramp 09/06/2022 Pain in pelvis 09/06/2022 Generalized anxiety disorder 09/06/2022 Post-traumatic stress disorder 09/06/2022 Slow transit constipation 09/06/2022 Anxiety during ([facility] 03/26/2020 Depression affecting ([facility]) 03/26/2020 History of chlamydia 03/26/2020 Bacterial infection due to mycoplasma 02/15/2024 Vaginal odor 02/15/2024 Urinary tract infection without hematuria 02/15/2024 Bacterial vaginosis 02/15/2024 Bladder pain 07/18/2024 Calculus of kidney 07/25/2013 Gross hematuria 07/18/2024 Resolved Ambulatory Problems Diagnosis Date Noted No Resolved Ambulatory Problems Past Medical History: Diagnosis Date ADHD (attention deficit hyperactivity disorder) Bipolar disorder (manic depression) ([facility]) BMI 24.0-24.9, adult Chicken pox 2007 Headache IBS (irritable bowel syndrome) Intrauterine device surveillance Pelvic pain Urinary tract infection HISTORY PAST MEDICAL HISTORY SOCIAL HISTORY Past Medical History: Diagnosis Date ADHD (attention deficit hyperactivity disorder) Adjustment disorder with mixed anxiety and depressed mood Amenorrhea Anxiety Bipolar disorder (manic depression) ([facility]) BMI 24.0-24.9, adult Chicken pox 2008 Complication [...] SMEAR 05/21/2021 negative WISDOM TOOTH EXTRACTION 2015 [facility] REVIEW OF SYSTEMS Review of Systems: [...] note reviewed. Exam conducted with a senior linux engineer present. Vitals: Estimated body mass index is 27.53 kg/m as calculated from the following: Height as of 25: 5' 7 . Weight as of this encounter: 175 lb 12.8 oz. BP: 102/68 Patient's last menstrual period was 06/19/2024. Assessment/Plan ICD-10-CM 1. Third trimester ([facility]) Z34.93 2. 33 weeks gestation of ([facility]) Z3A.33 POCT urinalysis dipstick manually [...] of: Jose Pan DO documented in this encounterEllis Fischel Cancer CenterLcsiybjjuq48-02-8588 History of Present illness Narrative* Ana Mcintosh [...] depressed, moderate ([facility]) 09/06/2022 Complication of intrauterine device (IUD) 09/06/2022 Inattention 09/06/2022 Irregular menses 09/06/2022 Irritable bowel syndrome with diarrhea 09/06/2022 Menstrual cramp 09/06/2022 Pain in pelvis 09/06/2022 Generalized anxiety disorder 09/06/2022 Post-traumatic stress disorder 09/06/2022 Slow transit constipation 09/06/2022 Anxiety during ([facility]) 03/26/2020 Depression affecting ([facility]) 03/26/2020 History of chlamydia 03/26/2020 Bacterial infection due to mycoplasma 02/15/2024 Vaginal odor 02/15/2024 Urinary tract infection without hematuria 02/15/2024 Bacterial vaginosis 02/15/2024 Bladder pain 07/18/2024 Calculus of kidney 07/25/2013 Gross hematuria 07/18/2024 Resolved Ambulatory Problems Diagnosis Date Noted No Resolved Ambulatory Problems Past Medical History: Diagnosis Date ADHD (attention deficit hyperactivity disorder) Bipolar disorder (manic depression) ([facility]) BMI 24.0-24.9, adult Chicken pox 2007 Headache [...] note reviewed. Exam conducted with a senior linux engineer present. Vitals: Estimated body mass index is 27 kg/m as calculated from the following: Height as of 07/18/24: 5' 7 . Weight as of this encounter: 172 lb 6.4 oz. BP: 108/72 Patient's last menstrual period was 06/19/2024. ASSESSMENT & PLAN ICD-10-CM 1. Encounter for ultrasound recheck of choroid plexus cyst, antepartum ([facility]) O35.03X0 US OB limited 1+ fetuses 2. Third trimester ([facility]) Z34.93 3. 31 weeks gestation of ([facility]) Z3A.31 POCT urinalysis dipstick manually resulted 4. size inconsistent with dates ([facility]) O26.849 US OB follow up [...] (manic depression) ([facility]) BMI 24.0-24.9, adult Chicken pox 2008 Complication [...] SMEAR 05/21/2021 negative WISDOM TOOTH EXTRACTION 2015 [facility] documented in this encounterEllis Fischel Cancer CenterWvvwmibkrt43-03-9473 History of Present illness Narrative* Jake Gunter [...] depressed, moderate ([facility]) 09/06/2022 Complication of intrauterine device (IUD) 09/06/2022 Inattention 09/06/2022 Irregular menses 09/06/2022 Irritable bowel syndrome with diarrhea 09/06/2022 Menstrual cramp 09/06/2022 Pain in pelvis 09/06/2022 Generalized anxiety disorder 09/06/2022 Post-traumatic stress disorder 09/06/2022 Slow transit constipation 09/06/2022 Anxiety during ([facility]) 03/26/2020 Depression affecting ([facility]) 03/26/2020 History of chlamydia 03/26/2020 Bacterial infection due to mycoplasma 02/15/2024 Vaginal odor 02/15/2024 Urinary tract infection without hematuria 02/15/2024 Bacterial vaginosis 02/15/2024 Bladder pain 07/18/2024 Calculus of kidney 07/25/2013 Gross hematuria 07/18/2024 Resolved Ambulatory Problems Diagnosis Date Noted No Resolved Ambulatory Problems Past Medical History: Diagnosis Date ADHD (attention deficit hyperactivity disorder) Bipolar disorder (manic depression) ([facility]) BMI 24.0-24.9, adult Chicken pox 2007 Headache IBS (irritable bowel syndrome) Intrauterine device surveillance Pelvic pain Urinary tract infection HISTORY PAST MEDICAL HISTORY SOCIAL HISTORY Past Medical History: Diagnosis Date ADHD (attention deficit hyperactivity disorder) Adjustment disorder with mixed anxiety and depressed mood Amenorrhea Anxiety Bipolar disorder (manic depression) ([facility]) BMI 24.0-24.9, adult Chicken pox 2007 Complication [...] SMEAR 05/21/2021 negative WISDOM TOOTH EXTRACTION 2014 [facility] REVIEW OF SYSTEMS Review of Systems: [...] note reviewed. Exam conducted with a senior linux engineer present. Vitals: Estimated body mass index is 26.31 kg/m as calculated from the following: Height as of 07/18/24: 5' 7 . Weight as of 12/28/24: 168 lb. BP: Patient's last menstrual period was 06/19/2024. ASSESSMENT & PLAN ICD-10-CM 1. Third trimester ([facility]) Z34.93 POCT urinalysis dipstick manually resulted 2. 29 weeks gestation of ([facility]) Z3A.29 3. Choroid plexus cyst [...] of: Jake Gunter NP documented in this encounterEllis Fischel Cancer [id number] History of Present illness Narrative* ALISA Coyle [...] depressed, moderate ([facility]) 09/06/2022 Complication of intrauterine device (IUD) 09/06/2022 Inattention 09/06/2022 Irregular menses 09/06/2022 Irritable bowel syndrome with diarrhea 09/06/2022 Menstrual cramp 09/06/2022 Pain in pelvis 09/06/2022 Generalized anxiety disorder 09/06/2022 Post-traumatic stress disorder 09/06/2022 Slow transit constipation 09/06/2022 Anxiety during ([facility]) 03/26/2020 Depression affecting ([facility]) 03/26/2020 History of chlamydia 03/26/2020 Bacterial infection due to mycoplasma 02/15/2024 Vaginal odor 02/15/2024 Urinary tract infection without hematuria 02/15/2024 Bacterial vaginosis 02/15/2024 Bladder pain 07/18/2024 Calculus of kidney 07/25/2013 Gross hematuria 07/18/2024 Resolved Ambulatory Problems Diagnosis Date Noted No Resolved Ambulatory Problems Past Medical History: Diagnosis Date ADHD (attention deficit hyperactivity disorder) Bipolar disorder (manic depression) ([facility]) BMI 24.0-24.9, adult Chicken pox 2007 Headache IBS (irritable bowel syndrome) Intrauterine device surveillance Pelvic pain Urinary tract infection HISTORY PAST MEDICAL HISTORY SOCIAL HISTORY Past Medical History: Diagnosis Date ADHD (attention deficit hyperactivity disorder) Adjustment disorder with mixed anxiety and depressed mood Amenorrhea Anxiety Bipolar disorder (manic depression) ([facility]) BMI 24.0-24.9, adult Chicken pox 2007 Complication [...] SMEAR 05/21/2021 negative WISDOM TOOTH EXTRACTION 2015 [facility] REVIEW OF SYSTEMS Review of Systems: [...] ASSESSMENT & PLAN ICD-10-CM 1. Second trimester ([facility]) Z34.92 POCT urinalysis dipstick manually resulted 2. 27 weeks gestation of ([facility]) Z3A.27 POCT urinalysis dipstick manually [...] behalf of: ALISA Coyle documented in this encounterEllis Fischel Cancer CenterLjnbtzvfjc61-86-3429 History of Present illness Narrative* Jake Gunter [...] depressed, moderate ([facility]) 09/06/2022 Complication of intrauterine device (IUD) 09/06/2022 Inattention 09/06/2022 Irregular menses 09/06/2022 Irritable bowel syndrome with diarrhea 09/06/2022 Menstrual cramp 09/06/2022 Pain in pelvis 09/06/2022 Generalized anxiety disorder 09/06/2022 Post-traumatic stress disorder 09/06/2022 Slow transit constipation 09/06/2022 Anxiety during ([facility]) 03/26/2020 Depression affecting ([facility]) 03/26/2020 History of chlamydia 03/26/2020 Bacterial infection due to mycoplasma 02/15/2024 Vaginal odor 02/15/2024 Urinary tract infection without hematuria 02/15/2024 Bacterial vaginosis 02/15/2024 Bladder pain 07/18/2024 Calculus of kidney 07/25/2013 Gross hematuria 07/18/2024 Resolved Ambulatory Problems Diagnosis Date Noted No Resolved Ambulatory Problems Past Medical History: Diagnosis Date ADHD (attention deficit hyperactivity disorder) Bipolar disorder (manic depression) ([facility]) BMI 24.0-24.9, adult Chicken pox 2007 Headache IBS (irritable bowel syndrome) Intrauterine device surveillance Pelvic pain Urinary tract infection HISTORY PAST MEDICAL HISTORY SOCIAL HISTORY Past Medical History: Diagnosis Date ADHD (attention deficit hyperactivity disorder) Adjustment disorder with mixed anxiety and depressed mood Amenorrhea Anxiety Bipolar disorder (manic depression) ([facility]) BMI 24.0-24.9, adult Chicken pox 2008 Complication [...] SMEAR 05/21/2021 negative WISDOM TOOTH EXTRACTION 2015 [facility] REVIEW OF SYSTEMS Review of Systems: [...] note reviewed. Exam conducted with a senior linux engineer present. Vitals: Estimated body mass index is 25.22 kg/m as calculated from the following: Height as of 07/18/24: 5' 7 . Weight as of this encounter: 161 lb. BP: 110/72 Patient's last menstrual period was 06/19/2024. ASSESSMENT & PLAN ICD-10-CM 1. Second trimester ([facility]) Z34.92 POCT urinalysis dipstick manually resulted 2. 24 weeks gestation of ([facility]) Z3A.24 3. Diabetes mellitus screening [...] of: Jose Pan DO documented in this encounterEllis Fischel Cancer CenterNhhhbklfkg11-09-4925 History of Present illness Narrative* Jake Gunter [...] depressed, moderate ([facility]) 09/06/2022 Complication of intrauterine device (IUD) 09/06/2022 Inattention 09/06/2022 Irregular menses 09/06/2022 Irritable bowel syndrome with diarrhea 09/06/2022 Menstrual cramp 09/06/2022 Pain in pelvis 09/06/2022 Generalized anxiety disorder 09/06/2022 Post-traumatic stress disorder 09/06/2022 Slow transit constipation 09/06/2022 Anxiety during ([facility] [facility] 03/26/2020 Depression affecting ([facility]) 03/26/2020 History of chlamydia 03/26/2020 Bacterial infection due to mycoplasma 02/15/2024 Vaginal odor 02/15/2024 Urinary tract infection without hematuria 02/15/2024 Bacterial vaginosis 02/15/2024 Bladder pain 07/18/2024 Calculus of kidney 07/25/2013 Gross hematuria 07/18/2024 Resolved Ambulatory Problems Diagnosis Date Noted No Resolved Ambulatory Problems Past Medical History: Diagnosis Date ADHD (attention deficit hyperactivity disorder) Bipolar disorder (manic depression) ([facility]) BMI 24.0-24.9, adult Chicken pox 2007 Headache IBS (irritable bowel syndrome) Intrauterine device surveillance Pelvic pain Urinary tract infection HISTORY PAST MEDICAL HISTORY SOCIAL HISTORY Past Medical History: Diagnosis Date ADHD (attention deficit hyperactivity disorder) Adjustment disorder with mixed anxiety and depressed mood Amenorrhea Anxiety Bipolar disorder (manic depression) ([facility]) BMI 24.0-24.9, adult Chicken pox 2007 Complication [...] SMEAR 05/21/2021 negative WISDOM TOOTH EXTRACTION 2015 [place] [facility] REVIEW OF SYSTEMS Review of Systems: [...] note reviewed. Exam conducted with a senior linux engineer present. Vitals: Estimated body mass index is 24.59 kg/m as calculated from the following: Height as of 25: 5' 7 . Weight as of this encounter: 157 lb. BP: 118/70 Patient's last menstrual period was 06/19/2024. ASSESSMENT & PLAN (Z34.92) Second trimester ([facility]) Plan: POCT urinalysis dipstick manually resulted (Z3A.20) 20 weeks gestation of ([facility]) Return OB: Patient presents today for a [...] of: Jose Pan DO documented in this encounterEllis Fischel Cancer [id number] History of Present illness Narrative* Jake Gunter [...] 09/06/2022 Slow transit constipation 09/06/2022 Anxiety during ([facility]) 03/26/2020 Depression affecting ([facility]) 03/26/2020 History of chlamydia 03/26/2020 Bacterial infection due to mycoplasma 02/15/2024 Vaginal odor 02/15/2024 Urinary tract infection without hematuria 02/15/2024 Bacterial vaginosis 02/15/2024 Bladder pain 07/18/2024 Calculus of kidney 07/25/2013 Gross hematuria 07/18/2024 Resolved Ambulatory Problems Diagnosis Date Noted No Resolved Ambulatory Problems Past Medical History: Diagnosis Date ADHD (attention deficit hyperactivity disorder) Bipolar disorder (manic depression) ([facility]) BMI 24.0-24.9, adult Chicken pox 2007 Headache IBS (irritable bowel syndrome) Intrauterine device surveillance Pelvic pain Urinary tract infection HISTORY PAST MEDICAL HISTORY SOCIAL HISTORY Past Medical History: Diagnosis Date ADHD (attention deficit hyperactivity disorder) Adjustment disorder with mixed anxiety and depressed mood Amenorrhea Anxiety Bipolar disorder (manic depression) ([facility]) BMI 24.0-24.9, adult Chicken pox 2007 Complication [...] SMEAR 05/21/2021 negative WISDOM TOOTH EXTRACTION 2015 [place] [facility] REVIEW OF SYSTEMS Review of Systems: [...] note reviewed. Exam conducted with a senior linux engineer present. Vitals: Estimated body mass index is 24 kg/m as calculated from the following: Height as of 07/18/24: 5' 7 . Weight as of this encounter: 153 lb 4 oz. BP: 108/60 Patient's last menstrual period was 06/19/2024. ASSESSMENT & PLAN ICD-10-CM 1. Second trimester ([facility]) Z34.92 Alpha fetoprotein, maternal Alpha fetoprotein, maternal POCT urinalysis dipstick manually resulted 2. 16 weeks gestation of ([facility]) Z3A.16 3. Screening, , for anatomic survey ([facility]) Z36.89 US OB 14+ weeks [...] of: Jose Pan DO documented in this encounterEllis Fischel Cancer [id number] History of Present illness Narrative* Nasreen Figueroa [...] depressed, moderate ([facility]) 09/06/2022 Complication of intrauterine device (IUD) 09/06/2022 Inattention 09/06/2022 Irregular menses 09/06/2022 Irritable bowel syndrome with diarrhea 09/06/2022 Menstrual cramp 09/06/2022 Pain in pelvis 09/06/2022 Generalized anxiety disorder 09/06/2022 Post-traumatic stress disorder 09/06/2022 Slow transit constipation 09/06/2022 Anxiety during ([facility] 03/26/2020 Depression affecting ([facility]) 03/26/2020 History of chlamydia 03/26/2020 Bacterial infection due to mycoplasma 02/15/2024 Vaginal odor 02/15/2024 Urinary tract infection without hematuria 02/15/2024 Bacterial vaginosis 02/15/2024 Bladder pain 07/18/2024 Calculus of kidney 07/25/2013 Gross hematuria 07/18/2024 Resolved Ambulatory Problems Diagnosis Date Noted No Resolved Ambulatory Problems Past Medical History: Diagnosis Date ADHD (attention deficit hyperactivity disorder) Bipolar disorder (manic depression) ([facility]) BMI 24.0-24.9, adult Chicken pox 2007 Headache IBS (irritable bowel syndrome) Intrauterine device surveillance Pelvic pain Urinary tract infection HISTORY PAST MEDICAL HISTORY SOCIAL HISTORY Past Medical History: Diagnosis Date ADHD (attention deficit hyperactivity disorder) Adjustment disorder with mixed anxiety and depressed mood Amenorrhea Anxiety Bipolar disorder (manic depression) ([facility]) BMI 24.0-24.9, adult Chicken pox 2008 Complication [...] SMEAR 05/21/2021 negative WISDOM TOOTH EXTRACTION 2015 [place] [facility] REVIEW OF SYSTEMS Review of Systems: [...] note reviewed. Exam conducted with a senior linux engineer present. Vitals: Estimated body mass index is 23.34 kg/m as calculated from the following: Height as of 07/18/24: 5' 7 . Weight as of this encounter: 149 lb. BP: 116/70 Patient's last menstrual period was 06/19/2024. ASSESSMENT & PLAN ICD-10-CM 1. Second trimester ([facility]) Z34.92 POCT urinalysis dipstick manually resulted 2. 14 weeks gestation of ([facility]) Z3A.14 3. Screen for STD [...] depressed, moderate ([facility]) 09/06/2022 Complication of intrauterine device (IUD) 09/06/2022 Inattention 09/06/2022 Irregular menses 09/06/2022 Irritable bowel syndrome with diarrhea 09/06/2022 Menstrual cramp 09/06/2022 Pain in pelvis 09/06/2022 Generalized anxiety disorder 09/06/2022 Post-traumatic stress disorder 09/06/2022 Slow transit constipation 09/06/2022 Anxiety during ([facility]) 03/26/2020 Depression affecting ([facility]) 03/26/2020 History of chlamydia 03/26/2020 Bacterial infection due to mycoplasma 02/15/2024 Vaginal odor 02/15/2024 Urinary tract infection without hematuria 02/15/2024 Bacterial vaginosis 02/15/2024 Bladder pain 07/18/2024 Calculus of kidney 07/25/2013 Gross hematuria 07/18/2024 Resolved Ambulatory Problems Diagnosis Date Noted No Resolved Ambulatory Problems Past Medical History: Diagnosis Date ADHD (attention deficit hyperactivity disorder) Bipolar disorder (manic depression) ([facility]) BMI 24.0-24.9, adult Chicken pox 2007 Headache IBS (irritable bowel syndrome) Intrauterine device surveillance Pelvic pain Urinary tract infection HISTORY PAST MEDICAL HISTORY SOCIAL HISTORY Past Medical History: Diagnosis Date ADHD (attention deficit hyperactivity disorder) Adjustment disorder with mixed anxiety and depressed mood Amenorrhea Anxiety Bipolar disorder (manic depression) ([facility]) BMI 24.0-24.9, adult Chicken pox 2007 Complication [...] SMEAR 05/21/2021 negative WISDOM TOOTH EXTRACTION 2015 [place] [facility] REVIEW OF SYSTEMS Review of Systems: [...] note reviewed. Exam conducted with a senior linux engineer present. Vitals: Estimated body mass index is 23.34 kg/m as calculated from the following: Height as of 07/18/24: 5' 7 . Weight as of this encounter: 149 lb. BP: 116/70 Patient's last menstrual period was 06/19/2024. ASSESSMENT & PLAN ICD-10-CM 1. Second trimester ([facility]) Z34.92 POCT urinalysis dipstick manually resulted 2. 14 weeks gestation of ([facility]) Z3A.14 3. Screen for STD [...] behalf of: ALISA Coyle documented in this encounterEllis Fischel Cancer [id number] History of Present illness Narrative* Ana Mcintosh, [...] disorder with mixed anxiety and depressed mood ([facility]) 09/06/2022 Amenorrhea 09/06/2022 Anxiety 09/06/2022 Bipolar affective disorder, currently depressed, moderate ([facility]) 09/06/2022 Complication of intrauterine device (IUD) ([facility]) 09/06/2022 Inattention 09/06/2022 Irregular menses 09/06/2022 Irritable [...] ADHD (attention deficit hyperactivity disorder) ([facility]) Bipolar disorder (manic depression) ([facility]) BMI 24.0-24.9, adult Chicken pox 2008 Headache IBS (irritable bowel syndrome) Intrauterine device surveillance Pelvic pain Urinary tract infection HISTORY PAST MEDICAL HISTORY SOCIAL HISTORY Past Medical History: Diagnosis Date ADHD (attention deficit hyperactivity disorder) ([facility]) Adjustment disorder with mixed anxiety and depressed mood ([facility]) Amenorrhea Anxiety Bipolar disorder (manic depression) ([facility] BMI 24.0-24.9, adult Chicken pox 2008 Complication of intrauterine device (IUD) ([facility]) Headache IBS (irritable bowel syndrome) IBS with [...] SMEAR 05/21/2021 negative WISDOM TOOTH EXTRACTION 2015 [place] [facility] REVIEW OF SYSTEMS Review of Systems: [...] note reviewed. Exam conducted with a senior linux engineer present. Vitals: Estimated body mass index is [...] or undercooked meat, and stay away from [facility]. Patient has been consulted regarding any [...] of: Jose Pan DO documented in this encounterEllis Fischel Cancer [id number] History of Present illness Narrative* Nasreen Figueroa [...] disorder with mixed anxiety and depressed mood ([facility]) 09/06/2022 Amenorrhea 09/06/2022 Anxiety 09/06/2022 Bipolar affective disorder, currently depressed, moderate ([facility]) 09/06/2022 Complication of intrauterine device (IUD) ([facility]) 09/06/2022 Inattention 09/06/2022 Irregular menses 09/06/2022 Irritable bowel syndrome with diarrhea 09/06/2022 Menstrual cramp 09/06/2022 Pain in pelvis 09/06/2022 Generalized anxiety disorder ([facility]) 09/06/2022 Post-traumatic stress disorder ([facility]) 09/06/2022 Slow transit constipation 09/06/2022 Anxiety during 03/26/2020 Depression affecting ([facility]) 03/26/2020 History of chlamydia 03/26/2020 Bacterial infection due to mycoplasma 02/15/2024 Vaginal odor 02/15/2024 Urinary tract infection without hematuria 02/15/2024 Bacterial vaginosis 02/15/2024 Bladder pain 07/18/2024 Calculus of kidney 07/25/2013 Gross hematuria 07/18/2024 Resolved Ambulatory Problems Diagnosis Date Noted No Resolved Ambulatory Problems Past Medical History: Diagnosis Date ADHD (attention deficit hyperactivity disorder) ([facility]) Bipolar disorder (manic depression) ([facility]) BMI 24.0-24.9, adult Chicken pox 2008 Headache IBS (irritable bowel syndrome) Intrauterine device surveillance Pelvic pain Urinary tract infection Family History Problem Relation Name Age of Onset Cancer Mother kaila Mental illness Mother kaila manic depressive bipolar disorder No Known Problems Brother 2 brothers Breast cancer Paternal Grandmother juan pablo Cancer Paternal Grandmother juanp ablo No Known Problems Daughter Social History Tobacco [...] SMEAR 05/21/2021 negative WISDOM TOOTH EXTRACTION 2015 [place] [facility] Allergies Allergen Reactions Bacitracin-Polymyxin B Other [...] urine; Future Nurse Note: Patient unsure of Effie Billion to one. OB Intake: Patient presents today for first OB visit. Patients history has been reviewed in great detail including any potential risks. Patient signed consent forms and patient desires testing in both trimesters. Patient currently has no complaints and has been advised to drink 6-8 glasses of water a day, eatno raw or undercooked meat, and stay away from [facility]. Patient has also been advised to [...] by: Nasreen Figueroa MA documented in this encounterEllis Fischel Cancer [id number] NotePatient Education Urology Kidney Stones Kidney stones [...] these instructions at home: Medicines ??? Take onhe-ian-oadkiae and prescription medicines only as told by [...] provider. Document Revised: 11/21/2022 Document Reviewed: 11/21/2022 [facility] Patient Education ? 2023 [employer] 07-18-2024 History of Present illness [...] during her subsequent annual visit with her BAND SAW MARKER, the diagnosis of bilateral fibroids was confirmed, leading her to forego the ultrasound. Over the past weekend, she has noticed an increase in the sizeof the left breast mass, accompanied by tenderness. She recently had a positive test. Sheis scheduled to see her BAND SAW MARKER in 08/2024. Supplemental Information She takes D-mannose [...] SMEAR 05/21/2021 negative WISDOM TOOTH EXTRACTION 2015 [place] [facility] FAMILY HISTORY: Family History Problem Relation [...] size of the lump. documented in this encounterEllis Fischel Cancer [id number] Telephone encounter Note* Telephone Encounter - Lopez Gan - 06/10/2024 9:17 AM EST Faheem called - she asked if its ok that you go ahead and send the referral for her hand now,please. Ty Ellis Fischel Cancer [id number] Miscellaneous Notes* Telephone Encounter - Lopez Gan - 06/10/2024 9:17 AM EST Faheem called - she asked if its ok that you go ahead and send the referral for her hand now,please. Ty documented in this encounterEllis Fischel Cancer [id number] History of Present illness Narrative* Reggie Donovan [...] Flowsheet Row Patient Outreach from 06/09/2024 in [facility] with Massimo Buchanan LPN Hospital Information ED, Hospital or Longterm Facility Discharge? ED Patient has been contacted within 1 week of being seen in the ED No Have two attempts been made to contact the patient within one week of being seen in the ED? Yes Diagnosis Right thumb laceration. Discharge Date 06/01/24 Discharged To: Home Setting Discharge Hospital [facility] Engagement Admission Date 06/01/24 Medications Appointments Does [...] Diagnosis Date ADHD (attention deficit hyperactivity disorder) ([facility]) Adjustment disorder with mixed anxiety and depressed mood ([facility]) Amenorrhea Anxiety Bipolar disorder (manic depression) ([facility]) BMI 24.0-24.9, adult Chicken pox 2008 Complication of intrauterine device (IUD) ([facility]) Headache IBS (irritable bowel syndrome) IBS with [...] SMEAR 05/21/2021 negative WISDOM TOOTH EXTRACTION 2015 [place] [facility] REVIEW OF SYMPTOMS: Review of Systems [...] Follow up as needed. documented in this encounterEllis Fischel Cancer [id number] History of Present illness Narrative* ALISA Coyle [...] disorder with mixed anxiety and depressed mood ([facility]) 09/06/2022 Amenorrhea 09/06/2022 Anxiety 09/06/2022 Bipolar affective disorder, currently depressed, moderate ([facility]) 09/06/2022 Complication of intrauterine device (IUD) ([facility]) 09/06/2022 Inattention 09/06/2022 Irregular menses 09/06/2022 Irritable bowel syndrome with diarrhea 09/06/2022 Menstrual cramp 09/06/2022 Pain in pelvis 09/06/2022 Generalized anxiety disorder ([facility]) 09/06/2022 Post-traumatic stress disorder ([facility]) 09/06/2022 Slow transit constipation 09/06/2022 Anxiety during 03/26/2020 Depression affecting ([facility]) 03/26/2020 History of chlamydia 03/26/2020 Bacterial infection due to mycoplasma 02/15/2024 Vaginal odor 02/15/2024 Urinary tract infection without hematuria 02/15/2024 Bacterial vaginosis 02/15/2024 Resolved Ambulatory Problems Diagnosis Date Noted No Resolved Ambulatory Problems Past Medical History: Diagnosis Date ADHD (attention deficit hyperactivity disorder) ([facility]) Bipolar disorder (manic depression) ([facility]) BMI 24.0-24.9, adult Chicken pox 2007 Headache IBS (irritable bowel syndrome) Intrauterine device surveillance Pelvic pain Urinary tract infection HISTORY PAST MEDICAL HISTORY SOCIAL HISTORY Past Medical History: Diagnosis Date ADHD (attention deficit hyperactivity disorder) ([facility]) Adjustment disorder with mixed anxiety and depressed mood ([facility] Amenorrhea Anxiety Bipolar disorder (manic depression) ([facility]) BMI 24.0-24.9, adult Chicken pox 2007 Complication of intrauterine device (IUD) ([facility]) Headache IBS (irritable bowel syndrome) IBS with [...] SMEAR 05/21/2021 negative WISDOM TOOTH EXTRACTION 2015 [place] [facility] REVIEW OF SYSTEMS Review of Systems: [...] behalf of: ALISA Coyle documented in this encounterEllis Fischel Cancer [id number] History of Present illness Narrative* Ana Mcintosh [...] disorder with mixed anxiety and depressed mood ([facility]) 09/06/2022 Amenorrhea 09/06/2022 Anxiety 09/06/2022 Bipolar affective disorder, currently depressed, moderate ([facility]) 09/06/2022 Complication of intrauterine device (IUD) ([facility]) 09/06/2022 Inattention 09/06/2022 Irregular menses 09/06/2022 Irritable bowel syndrome with diarrhea 09/06/2022 Menstrual cramp 09/06/2022 Pain in pelvis 09/06/2022 Generalized anxiety disorder ([facility]) 09/06/2022 Post-traumatic stress disorder ([facility]) 09/06/2022 Slow transit constipation 09/06/2022 Anxiety during 03/26/2020 Depression affecting ([facility]) 03/26/2020 History of chlamydia 03/26/2020 Bacterial infection due to mycoplasma 02/15/2024 Vaginal odor 02/15/2024 Urinary tract infection without hematuria 02/15/2024 Bacterial vaginosis 02/15/2024 Resolved Ambulatory Problems Diagnosis Date Noted No Resolved Ambulatory Problems Past Medical History: Diagnosis Date ADHD (attention deficit hyperactivity disorder) ([facility] Bipolar disorder (manic depression) ([facility]) BMI 24.0-24.9, adult Chicken pox 2007 Headache IBS (irritable bowel syndrome) Intrauterine device surveillance Pelvic pain Urinary tract infection HISTORY PAST MEDICAL HISTORY SOCIAL HISTORY Past Medical History: Diagnosis Date ADHD (attention deficit hyperactivity disorder) ([facility]) Adjustment disorder with mixed anxiety and depressed mood ([facility]) Amenorrhea Anxiety Bipolar disorder (manic depression) ([facility]) BMI 24.0-24.9, adult Chicken pox 2007 Complication of intrauterine device (IUD) ([facility]) Headache IBS (irritable bowel syndrome) IBS with [...] SMEAR 05/21/2021 negative WISDOM TOOTH EXTRACTION 2015 [place] [facility] REVIEW OF SYSTEMS Review of Systems: [...] note reviewed. Exam conducted with a senior linux engineer present. Vitals: Estimated body mass index is [...] of: Jose Pan DO documented in this encounterEllis Fischel Cancer [id number] NoteUrology Office/Clinic Note Chief Complaint referral HPI [...] gross hematuria. Pt. states she was in [place] [facility] for cystitis Frequency: 2-3 hours Urgency: [...] with voice recognition artificial intelligence software, specifically [employer], [employer] and or [employer]. Substitutions may have occurred due to the [...] OBGYN regarding poss endometriosis dx May be COMPENSATION INTER[employer] source of pain Does not necessarily improve [...] intake. Restrict animal protein. -KUB/ MARCIA at [facility], call pt w/ results Orders: cephalexin, 500 mg = 1 cap(s), Oral, BID, X 7 day(s), # 14 cap(s), Refills(s) 0, Pharmacy: [id number], 174, cm, 03/01/24 10:48:00 EST, Height/Length [...] Mother. Primary malignant neoplasm of female breast: Grandparent.[facility] CenterComment on above:Result Comment: Electronically Signed By: SRUTHI Pinedo APRN, [place]\.br\Date and Time Signed: 03/29/24 10:28 [id number] Evaluation + Plan note Diagnostic Tests Pending * Urine Culture 03/21/24 [facility] 11-27-2024 History of Present illness Narrative* [...] with Dr. Pan at [facility]. MEDICATIONS Current Outpatient Medications Medication Instructions azithromycin (Zithromax) 500 MG tablet Day 1: Take 2 tablets PO onetime dose; Day 2,3,4: Take 1 tablet daily ALLERGIES Allergies Allergen Reactions Bacitracin-Polymyxin B Other Reaction(s): Unknown Lexapro [Escitalopram] Other groggy Buspar [Buspirone] Anxiety Caused heart palpitations and increased anxiety PROBLEMS Active Ambulatory Problems Diagnosis Date Noted Adjustment disorder with mixed anxiety and depressed mood ([facility]) 09/06/2022 Amenorrhea 09/06/2022 Anxiety 09/06/2022 Bipolar affective disorder, currently depressed, moderate ([facility]) 09/06/2022 Complication of intrauterine device (IUD) ([facility]) 09/06/2022 Inattention 09/06/2022 Irregular menses 09/06/2022 Irritable bowel syndrome with diarrhea 09/06/2022 Menstrual cramp 09/06/2022 Pain in pelvis 09/06/2022 Generalized anxiety disorder ([facility]) 09/06/2022 Post-traumatic stress disorder ([facility]) 09/06/2022 Slow transit constipation 09/06/2022 Anxiety during 03/26/2020 Depression affecting ([facility]) 03/26/2020 History of chlamydia 03/26/2020 Bacterial infection due to mycoplasma 02/15/2024 Vaginal odor 02/15/2024 Urinary tract infection without hematuria 02/15/2024 Bacterial vaginosis 02/15/2024 Resolved Ambulatory Problems Diagnosis Date Noted No Resolved Ambulatory Problems Past Medical History: Diagnosis Date ADHD (attention deficit hyperactivity disorder) ([facility] Bipolar disorder (manic depression) ([facility]) BMI 24.0-24.9, adult Chicken pox 2007 Headache IBS (irritable bowel syndrome) Intrauterine device surveillance Pelvic pain Urinary tract infection HISTORY PAST MEDICAL HISTORY SOCIAL HISTORY Past Medical History: Diagnosis Date ADHD (attention deficit hyperactivity disorder) ([facility]) Adjustment disorder with mixed anxiety and depressed mood ([facility] Amenorrhea Anxiety Bipolar disorder (manic depression) ([facility] BMI 24.0-24.9, adult Chicken pox 2007 Complication of intrauterine device (IUD) ([facility]) Headache IBS (irritable bowel syndrome) IBS with [...] SMEAR 05/21/2021 negative WISDOM TOOTH EXTRACTION 2015 [place] [facility] REVIEW OF SYSTEMS Review of Systems: [...] note reviewed. Exam conducted with a senior linux engineer present. Vitals: Estimated body mass index is [...] of: Jose Pan DO documented in this encounterEllis Fischel Cancer [id number] History of Present illness Narrative* Estela Phipps [...] disorder with mixed anxiety and depressed mood ([facility] 09/06/2022 Amenorrhea 09/06/2022 Anxiety 09/06/2022 Bipolar affective disorder, currently depressed, moderate ([facility] 09/06/2022 Complication of intrauterine device (IUD) ([facility] 09/06/2022 Inattention 09/06/2022 Irregular menses 09/06/2022 Irritable bowel syndrome with diarrhea 09/06/2022 Menstrual cramp 09/06/2022 Pain in pelvis 09/06/2022 Generalized anxiety disorder ([facility] 09/06/2022 Post-traumatic stress disorder ([facility] 09/06/2022 Slow transit constipation 09/06/2022 Anxiety during 03/26/2020 Depression affecting ([facility] 03/26/2020 History of chlamydia 03/26/2020 Resolved Ambulatory Problems Diagnosis Date Noted No Resolved Ambulatory Problems Past Medical History: Diagnosis Date ADHD (attention deficit hyperactivity disorder) ([facility]) Bipolar disorder (manic depression) ([facility] BMI 24.0-24.9, adult Chicken pox 2007 Headache IBS (irritable bowel syndrome) Intrauterine device surveillance Pelvic pain Urinary tract infection HISTORY PAST MEDICAL HISTORY SOCIAL HISTORY Past Medical History: Diagnosis Date ADHD (attention deficit hyperactivity disorder) ([facility] Adjustment disorder with mixed anxiety and depressed mood ([facility]) Amenorrhea Anxiety Bipolar disorder (manic depression) ([facility]) BMI 24.0-24.9, adult Chicken pox 2008 Complication of intrauterine device (IUD) ([facility] Headache IBS (irritable bowel syndrome) IBS with [...] SMEAR 05/21/2021 negative WISDOM TOOTH EXTRACTION 2015 [place] [facility] REVIEW OF SYSTEMS Review of Systems: [...] note reviewed. Exam conducted with a senior linux engineer present. Vitals: Estimated body mass index is [...] refe rral to Urology. Patient aware that Acquisition Advisor will reach out to her to sent up surgery datefor Dx Lap as well. Patient aware of referral process. Documented by Estela Phipps LPN on behalf of: Jose Pan DO documented in this encounterEllis Fischel Cancer [id number] History of Present illness Narrative* ALISA Coyle [...] disorder with mixed anxiety and depressed mood ([facility]) 09/06/2022 Amenorrhea 09/06/2022 Anxiety 09/06/2022 Bipolar affective disorder, currently depressed, moderate ([facility]) 09/06/2022 Complication of intrauterine device (IUD) ([facility]) 09/06/2022 Inattention 09/06/2022 Irregular menses 09/06/2022 Irritable bowel syndrome with diarrhea 09/06/2022 Menstrual cramp 09/06/2022 Pain in pelvis 09/06/2022 Generalized anxiety disorder ([facility]) 09/06/2022 Post-traumatic stress disorder ([facility]) 09/06/2022 Slow transit constipation 09/06/2022 Anxiety during 03/26/2020 Depression affecting ([facility]) 03/26/2020 History of chlamydia 03/26/2020 Resolved Ambulatory Problems Diagnosis Date Noted No Resolved Ambulatory Problems Past Medical History: Diagnosis Date ADHD (attention deficit hyperactivity disorder) ([facility]) Bipolar disorder (manic depression) ([facility] BMI 24.0-24.9, adult Chicken pox 2008 Headache IBS (irritable bowel syndrome) Intrauterine device surveillance Pelvic pain Urinary tract infection HISTORY PAST MEDICAL HISTORY SOCIAL HISTORY Past Medical History: Diagnosis Date ADHD (attention deficit hyperactivity disorder) ([facility]) Adjustment disorder with mixed anxiety and depressed mood ([facility]) Amenorrhea Anxiety Bipolar disorder (manic depression) ([facility]) BMI 24.0-24.9, adult Chicken pox 2008 Complication of intrauterine device (IUD) ([facility] Headache IBS (irritable bowel syndrome) IBS with [...] SMEAR 05/21/2021 negative WISDOM TOOTH EXTRACTION 2015 [place] [facility] REVIEW OF SYSTEMS Review of Systems: [...] note reviewed. Exam conducted with a senior linux engineer present. Vitals: Estimated body mass index is [...] behalf of: ALISA Coyle documented in this encounterEllis Fischel Cancer [id number] History of Present illness Narrative* Estela Phipps [...] disorder with mixed anxiety and depressed mood ([facility]) 09/06/2022 Amenorrhea 09/06/2022 Anxiety 09/06/2022 Bipolar affective disorder, currently depressed, moderate ([facility]) 09/06/2022 Complication of intrauterine device (IUD) ([facility]) 09/06/2022 Inattention 09/06/2022 Irregular menses 09/06/2022 Irritable bowel syndrome with diarrhea 09/06/2022 Menstrual cramp 09/06/2022 Pain in pelvis 09/06/2022 Generalized anxiety disorder ([facility]) 09/06/2022 Post-traumatic stress disorder ([facility]) 09/06/2022 Slow transit constipation 09/06/2022 Anxiety during 03/26/2020 Depression affecting ([facility] 03/26/2020 History of chlamydia 03/26/2020 Resolved Ambulatory Problems Diagnosis Date Noted No Resolved Ambulatory Problems Past Medical History: Diagnosis Date ADHD (attention deficit hyperactivity disorder) ([facility]) Bipolar disorder (manic depression) ([facility] BMI 24.0-24.9, adult Chicken pox 2007 Headache IBS (irritable bowel syndrome) Intrauterine device surveillance Pelvic pain Urinary tract infection HISTORY PAST MEDICAL HISTORY SOCIAL HISTORY Past Medical History: Diagnosis Date ADHD (attention deficit hyperactivity disorder) ([facility]) Adjustment disorder with mixed anxiety and depressed mood ([facility]) Amenorrhea Anxiety Bipolar disorder (manic depression) ([facility] BMI 24.0-24.9, adult Chicken pox 2007 Complication of intrauterine device (IUD) ([facility]) Headache IBS (irritable bowel syndrome) IBS with [...] SMEAR 05/21/2021 negative WISDOM TOOTH EXTRACTION 2015 [place] [facility] REVIEW OF SYSTEMS Review of Systems: [...] note reviewed. Exam conducted with a senior linux engineer present. Vitals: Estimated body mass index is [...] available for this section [facility] Vanesa evaluation note* Diagnosis Ureteral stone with hydronephrosis Calculus of ureter Suprapubic pain Abdominal pain, other specified site Dysuria Urgency of urination documented in this encounter [employer] Phone: evaluation note* Diagnosis Ureteral stone with hydronephrosis Calculus of ureter documented in this encounter [employer] Phone: evaluation note* Diagnosis Ureteral stone with hydronephrosis Calculus of ureter Suprapubic pain Abdominal pain, other specified site Dysuria Urgency of urination documented in this encounter [employer] Phone: evaluation note* Diagnosis Well woman exam [...] this section [facility] progress note No data available for this section [facility] Advance Directives TypeDate RecordedPatient RepresentativeExplanationACP-Advance DirectiveACP-Power of AttorneyCode StatusDate ActivatedDate InactivatedCommentsFull Code03/28/2014 9:49 AM03/28/2014 5:17 PMTypeDate RecordedPatient RepresentativeExplanationACP- Advance DirectiveACP-Power of AttorneyCode StatusDate ActivatedDate Inactivated CommentsFull Code03/28/2014 9:49 AM03/28/2014 5:17 PM Reason for Referral SpecialtyDiagnoses / ProceduresReferred By ContactReferred To ContactRadiology Diagnoses Ureteral stone with hydronephrosis Suprapubic pain Dysuria Urgency of urination Procedures US RENAL COMPLETE Jason Bradley, HOUSEHOLD ASSISTANT - ASSOCIATE VICE PRESIDENT [address] [facility] [address] [place] [address] Referral IDStatusReasonStart DateExpiration DateVisits RequestedVisits [id number] Summary Purpose Family History No Family History [...] MemberRelationshipSpecialtyStart DateEnd Date Sri Ramírez MD [address] [place] [address] PCP - General07/20/13Team MemberRelationshipSpecialtyStart DateEnd Date Sri Ramírez MD [address] [place] [address] PCP - General07/20/13Team MemberRelationshipSpecialtyStart DateEnd Date Sri Ramírez MD [address] [place] [address] PCP - General07/20/13Team MemberRelationshipSpecialtyStart DateEnd Date Sri Ramírez MD [address] [place] [address] PCP - General07/20/13Team MemberRelationshipSpecialtyStart DateEnd Date Sri Ramírez MD [facility] [place] [address] PCP - GeneralFamily Medicine09/19/22 Daisy Hurst, HOUSEHOLD ASSISTANT-PUBLIC AFFAIRS DIRECTOR [address] [place] [address] PCP - Cool Commercial09/12/23 Kayla Kahn DO [address] [place] [address] Referring Physician09/19/22Team MemberRelationshipSpecialtyStart DateEnd Date Sri Ramírez MD [address] [place] [address] PCP - GeneralFamily Medicine09/19/22 Daisy Hurst, HOUSEHOLD ASSISTANT-PUBLIC AFFAIRS DIRECTOR [address] [facility] [address] [place] [address] PCP - Cool Commercial09/12/23 Kayla Kahn, [address] [facility] [address] [place] [address] Referring Physician09/19/22Te MemberRelationshipSpecialtyStart DateEnd Date Sri Ramírez MD [address] [place] [facility] [address] PCP - GeneralFamily Medicine09/19/22 Daisy Hurst, HOUSEHOLD ASSISTANT-PUBLIC AFFAIRS DIRECTOR [address] [place] [address] PCP - Cool Commercial09/12/23 Kayla Kahn DO [address] [place] [address] Referring Physician09/19/22Te MemberRelationshipSpecialtyStart [facility] Sri Ramírez MD [address] [place] [address] PCP - GeneralClarke County Hospitally Medicine09/19/22 Daisy Hurst, HOUSEHOLD ASSISTANT-PUBLIC AFFAIRS DIRECTOR [address] [place] [address] PCP - Cool Commercial09/12/23 Kayla Kahn DO [address] [place] [address] Referring Physician09/19/22Te MemberRelationshipSpecialtyStart [facility] Date Sri Ramírez MD [address] [place] [facility] [address] PCP - [facility]Ad[facility] Medicine09/19/22 Daisy Hurst, HOUSEHOLD ASSISTANT-PUBLIC AFFAIRS DIRECTOR [address] [facility] [address] [place] [address] PCP - Cool Commercial09/12/23 Kayla Kahn DO [address] [place] [facility] [address] Referring Physician09/19/22Te MemberRelationshipSpecialtyStart [facility] Sri Ramírez MD [address] [place] [facility] [address] PCP - GeneralClarke County Hospitally Medicine09/19/22 Daisy Hurst, HOUSEHOLD ASSISTANT-PUBLIC AFFAIRS DIRECTOR [address] [facility] [address] [place] [address] PCP - Cool Commercial09/12/23 Kayla Kahn DO [address] [place] [address] Referring Physician09/19/22Te MemberRelationshipSpecialtyStart DateEnd [facility] Sri Ramírez MD [address] [place] [address] PCP - GeneralAd[facility] Medicine09/19/22 Daisy Hurst, HOUSEHOLD ASSISTANT-PUBLIC AFFAIRS DIRECTOR [address] [facility] [address] [place] [address] PCP - Cool Commercial09/12/23 Kayla Kahn DO [address] [facility] [address] [place] [address] Referring Physician09/19/22Te MemberRelationshipSpecialtyStart DateEnd Date Sri Ramírez MD [address] [place] [address] PCP - GeneralClarke County Hospitally Medicine09/19/22 Daisy Hurst, HOUSEHOLD ASSISTANT-PUBLIC AFFAIRS DIRECTOR [address] [facility] [address] [place] [address] PCP - Cool Commercial09/12/23 Kayla Kahn DO [address] [place] [address] Referring Physician09/19/22Te MemberRelationshipSpecialtyStart DateEnd Sri Ramírez MD [address] [place] [address] PCP - [facility]Ad[facility] Medicine09/19/22 Daisy Hurst, HOUSEHOLD ASSISTANT-PUBLIC AFFAIRS DIRECTOR [address] [facility] [address] [place] [address] PCP - Cool [employer]09/12/23 Kayla Kahn DO [address] [place] [address] Referring Physician09/19/22Team MemberRelationshipSpecialtyStart DateEnd Sri Ramírez MD [address] [place] [address] PCP - [facility]09/19/22 Daisy Hurst, HOUSEHOLD ASSISTANT-PUBLIC AFFAIRS DIRECTOR [address] [facility] [address] [place] [address] PCP - Cool [employer]09/12/23 Kayla Kahn DO [address] [place] [address] Referring Physician09/19/22Team MemberRelationshipSpecialtyStart DateEnd Date Sri Ramírez MD [address] [place] [address] PCP - GeneralP[facility] Center09/19/22 Daisy Hurst, HOUSEHOLD ASSISTANT-PUBLIC AFFAIRS DIRECTOR [address] [facility] [address] [place] [address] PCP - [employer]09/12/23 Kayla Kahn DO [address] [place] [address] Referring Physician09/19/22Te MemberRelationshipSpecialtyStart [facility] Sri Ramírez MD [address] [place] [address] PCP - GeneralFamily Medicine09/19/22 Daisy Hurst, HOUSEHOLD ASSISTANT-PUBLIC AFFAIRS DIRECTOR [address] [facility] [address] [place] [address] PCP - [employer]09/12/23 Kayla Kanh DO [address] [place] [address] Referring Physician09/19/22Te MemberRelationshipSpecialtyStart DateEnd [facility] Sri Ramírez MD [address] [place] [address] PCP - GeneralFamily Medicine09/19/22 Daisy Hurst, HOUSEHOLD ASSISTANT-PUBLIC AFFAIRS DIRECTOR [address] [facility] [address] [place] [address] PCP - [employer]09/12/23 Kayla Kahn DO [address] [place] [address] Referring Physician09/19/22Te MemberRelationshipSpecialtyStart DateEnd [facility] Sri Ramírez MD [address] [place] [address] PCP - GeneralFamily Medicine09/19/22 Daisy Hurst, HOUSEHOLD ASSISTANT-PUBLIC AFFAIRS DIRECTOR [address] [facility] [address] [place] [address] PCP - [employer]09/12/23 Kayla Kahn DO [address] [place] [address] Referring Physician09/19/22[facility] MemberRelationshipSpecialtyStart [facility] Sri Ramírez MD [address] [place] [address] PCP - [facility] Medicine09/19/22 Daisy Hurst, HOUSEHOLD ASSISTANT-PUBLIC AFFAIRS DIRECTOR [address] [facility] [address] [place] [address] PCP - [employer]09/12/23 Kayla Kahn DO [address] [place] [address] Referring Physician09/19/22 MemberRelationshipSpecialtyStart [facility] Sri Ramírez MD [address] [place] [address] PCP - [facility]Ad[facility] Medicine09/19/22 Daisy Hurst, HOUSEHOLD ASSISTANT-PUBLIC AFFAIRS DIRECTOR [address] [facility] [address] [place] [address] PCP - [employer]09/12/23 Kayla Kahn DO [address] [place] [address] Referring Physician09/19/22Team MemberRelationshipSpecialtyStart DateEnd Date Sri Ramírez MD [address] [place] [address] PCP - [facility]Ad[facility] Medicine09/19/22 Kayla Kahn DO [address] [place] [address] Referring Physician09/19/22Te MemberRelationshipSpecialtyStart DateEnd Date Sri Ramírez MD [address] [place] [address] PCP - [facility]09/19/22 Kayla Kahn DO [address] [place] [address] Referring Physician09/19/22Te MemberRelationshipSpecialtyStart DateEnd Date Sri Ramírez MD [address] [place] [address] PCP - [facility]09/19/22 Kayla Kahn DO [address] [place] [address] Referring Physician09/19/22Te MemberRelationshipSpecialtyStart DateEnd Date Sri Ramírez MD [address] [place] [address] PCP - [facility] Medicine09/19/22 Kayla Kahn DO [address] [place] [address] Referring Physician09/19/22Team MemberRelationshipSpecialtyStart DateEnd Date Sri Ramírez MD [address] [place] [address] PCP - [facility] Medicine09/19/22 Kayla Kahn DO [address] [place] [address] Referring Physician09/19/22Team MemberRelationshipSpecialtyStart DateEnd Date Sri Ramírez MD [address] [place] [address] PCP - [facility] Medicine09/19/22 Kayla Kahn DO [address] [place] [address] Referring Physician09/19/22Team MemberRelationshipSpecialtyStart DateEnd Date Sri Ramírez MD [address] [place] [address] PCP - [facility] Medicine09/19/22 Kayla Kahn DO [address] [place] [address] Referring Physician09/19/22Team MemberRelationshipSpecialtyStart DateEnd Date Sri Ramírez MD [address] [place] [address] PCP - [facility]09/19/22 Kayla Kahn DO [address] [place] [address] Referring Physician09/19/22Team MemberRelationshipSpecialtyStart [facility] Sri Ramírez MD [address] [place] [address] PCP - GeneralCl[facility] Hospitally Medicine09/19/22 Kayla Kahn DO [address] [place] [address] Referring Physician09/19/22Team MemberRelationshipSpecialtyStart [facility] Sri Ramírez MD [address] [place] [address] PCP - [facility] Medicine09/19/22 Kayla Kahn DO [address] [place] [address] Referring Physician09/19/22Team MemberRelationshipSpecialtyStart [facility] Sri Ramírez MD [address] [place] [address] PCP - [facility]Cl[facility] Hospit[facility] Medicine09/19/22 Kayla Kahn DO [address] [place] [address] Referring Physician09/19/22Team MemberRelationshipSpecialtyStart [facility] Sri Ramírez MD [address] [place] [address] PCP - Generalmily Medicine09/19/22 Daisy Hurst HOUSEHOLD ASSISTANT-PUBLIC AFFAIRS DIRECTOR [address] [place] [address] [address] [place] [address] PCP - [employer] Kayla Kahn DO [address] [place] [address] Referring Physician09/19/22Team MemberRelationshipSpecialtyStart DateEnd Date Sri Ramírez MD [address] [place] [address] PCP - GeneralFautly Medicine09/19/22 Kayla Kahn DO [address] [place] [address] Referring Physician09/19/22 Reason for Visit (unrecogniz ed section and content) SpecialtyDiagnoses / ProceduresReferred By ContactReferred To ContactRadiology Diagnoses Ureteral stone with hydronephrosis Suprapubic pain Dysuria Urgency of urination Procedures US RENAL COMPLETE Jason Bradley, HOUSEHOLD ASSISTANT - ASSOCIATE VICE PRESIDENT [address] [facility] [address] [place] [address] Referral IDStatusReasonStart DateExpiration DateVisits RequestedVisits [id number] Women VisitReason CommentsVaginitis/Bacterial VaginosisPt present today for follow up on BV/UTI. Pt complains of having an odor and would like cx's done at todays visit.Reason CommentsPre-op VisitReasonCommentspelvic pressureReasonCommentsPost-op Visit ReasonCommentsBV and CulturesReasonCommentsER Follow-upReasonCommentsAnnual Exam Breast MassReasonCommentsAmenorrheaReasonCommentsRoutine Visit INFORMATION SOURCE (unrecogn ized section and content) DATE CREATED AUTHOR 06/23/2021 [facility] DATE CREATED AUTHOR AUTHOR'S ORGANIZ ATION 05/20/2022 [facility] DATE CREATED AUTHOR AUTHOR'S ORGANIZ ATION 09/25/2023 [facility] DATE CREATED AUTHOR AUTHOR'S ORGANIZ ATION 03/27/2024 [facility] DATE CREATED AUTHOR AUTHOR'S ORGANIZ ATION 04/13/2024 [facility] DATE CREATED AUTHOR AUTHOR'S ORGANIZ ATION 08/02/2024 [facility] DATE CREATED AUTHOR AUTHOR'S ORGANIZ ATION 02/22/2025 [facility] EPIC FOR RECORDS PERTAINING TO [...] BE BASED ON THE PRIMARY CLINICAL RECORDS. [facility] [employer] [facility]. provides no warranty or guarantee of the accuracy or completeness of information in this document.
--- OUTSIDE RECORDS SUMMARY | 2025-03-21 05:25 | XMS_ITS | Encounter Summary ---
Author Organization [facility] Address [address] [place] [address] Care Team Providers Care Railroad Firer Name Role Phone Sri Ramírez MD Primary Care Provider [phone] Kayla Kahn DO Unavailable [phone] Encounter Details DateTypeDepartmentCare Team (Latest Contact Info)Wlpxbjtbeih83/08/2025amboo flowsheet [facility] [address] [address] Jose Pan DO [address] [place] [id number] Social History Tobacco UseTypesPacks/DayYears UsedDateSmoking Tobacco: FormerCigarettes0.55 Smokeless Tobacco: NeverAlcohol UseStandard Drinks/WeekCommentsNever0 (1 standard drink = 0.6 oz pure alcohol)caffeine: 1-2 cups coffee or energy drink [id number] Health LiteracyAnswerDate RecordedHow often do you need [...] 09/24/2023How often do you attend hindu or hinduism services?Patient declined 09/24/2023o you belong to any clubs or organizations such as hindu groups, unions, fraternal or athletic groups, or school groups?No09/24/2023How often do you attend meetings of the clubs or organizations you belong to?Never09/24/2023 Are you , , , , never , or living with a partner?Patient oxdkymlb13/13/2024UDIT-CAnswerDate RecordedQ1: How often do you have a [...] heating?Not hard at all09/24/2023HQ-2AnswerDate RecordedPatient Health Questionnaire-2 [place] [place] [facility] - Occupational Stress QuestionnaireAnswerDate [...] a half-way (including now)?No09/24/2023 Estimated Date of TtdtqkvzJflatoghEuy07/14/2025ased on last menstrual period of 06/19/2024Sex and Gender InformationValueDate RecordedSex Assigned at BirthNot on fileLegal FqtMknuea63/15/2023 6:40 PM EDTGender IdentityNot on file Sexual OrientationNot on filedocumented as of this encounter Plan of Treatment Not on file documented as of this encounter Visit Diagnoses Not on filedocumented in this encounter Care Teams Team MemberRelationshipSpecialtyStart DateEnd Date Sri Ramírez MD [address] [facility] [place] [address] PCP - GeneralFamily Medicine09/19/22 [place] [address] [place] [id number] Referring Physician09/19/22documented as of this encounter
--- OUTSIDE RECORDS SUMMARY | 2025-03-21 05:25 | XMS_ITS | Clinical Summary ---
Author Organization [facility] Address [address] [place] [address] Care Team Providers Care Professor Of Kinesiology Name Role Phone Sri Ramírez MD Primary Care Provider [phone] Kayla Kahn DO Unavailable [phone] Allergies Active AllergyReactionsCriticalityNoted DateCommentsBacitracin-Polymyxin B 09/06/2022 Other Reaction(s): Unknown JwfsuyuyzUchxxcpMzq71/27/2023 Caused heart palpitations and increased anxiety RcvaxmphdlggFchwf80/27/2023 groggy Other Reaction(s): Sleepy Medications MedicationSigDispense QuantityRefillsLast FilledStart DateEnd DateStatus Multiple Vitamin (multivitamin) tablet Take 1 tablet by mouth DailyActive co-enzyme Q-10 30 MG capsule Take 30 mg by mouth Daily03/14/2025Discontinued ondansetron ODT (Zofran-ODT) 4 MG disintegrating tablet DISSOLVE 1 TABLET on tongue EVERY 8 HOURS NEEDED FOR NAUSEA & FOR VOMITING Discontinued azelaic acid (Finacea) 15 % gel Indications:Acne, unspecified acne typeApply 1 application topically in the morning and 1 application before bedtime. 60 g 1108//Discontinued Active Problems ProblemNoted DateDiagnosed DateBladder pain07/18/2024Gross ugwuekrhn23/07/2025 Bacterial infection due to azwujcddtt25/04/2024Vaginal odor02/15/2024Urinary tract infection without pyhmmnvfk71/04/2024acterial fwfhkwdyo67/04/2024 Adjustment disorder with mixed anxiety and depressed mood09/06/2022menorrhea 09/06/20229783Twwbfgu43/27/2023ipolar affective disorder, currently depressed, glwebiyc46/27/2023omplication of intrauterine device (IUD)09/06/2022Inattention 09/06/2022Irregular ucalnu9609/06/2022Irritable bowel syndrome with diarrhea 09/06/2022Menstrual cramp09/06/2022ain in ipvesx5709/06/2022eneralized anxiety vrahmxhv23/27/2023ost-traumatic stress iqyyzulw90/27/2023Slow transit qxvndubknbzl00/27/2023nxiety during ([facility])03/26/2020Depression affecting htpqtualu39/14/2020History of utbzudmqr37/14/2020Calculus of kidney 07/25/2013Estimated Date of SkcqitigSkmavmbwPua79/14/2025ased on last menstrual period of 06/19/2024 Encounters DateTypeDepartmentCare DgkbEpuexaxxetp76/08/2025 3:00 PM ESTRoutine [facility] [address] [place] [address] [place] [address] Trista Pan, Third trimester ([facility]); 39 weeks gestation of ([facility])03/20/2025amboo flowsheet [facility] [address] [place] [address] [place] [address] Trista Pan, 03/14/2025 2:30 PM ESTRoutine [facility] [place] [address] Trista Pan, 38 weeks gestation of ([facility]); Third trimester ([facility])03/14/2025amboo flowsheet [facility] [address] [place] [address] [place] [address] Trista Pan, 03/08/2025 1:50 PM ESTRoutine [facility] [place] [address] Trista Pan, DO Third trimester ([facility]); 37 weeks gestation of ([facility])03/08/2025amboo flowsheet [facility] [address] [place] [address] Trista Pan, DO 02/27/2025 1:20 PM ESTRoutine [facility] [place] [address] Padmini Gunter, [employer] SUPER[employer] Third trimester ([facility]); 36 weeks gestation of ([facility]); Vaginal lfvhdfoqt51/17/2025linisync Result Encounter [facility]S External Department Unsolicited Padmini Gunter, [place] 02/27/2025External Result Encounter NOMS External Department Unsolicited Padmini Gunter, [place] 02/27/2025amboo flowsheet [facility] [address] [facility] [place] [address] Padmini Gunter, [employer] SUPERVISOR 02/21/2025 10:30 AM ESTRoutine [facility] [place] [phone] Trista Pan, DO Third trimester ([facility]); 35 weeks gestation of ([facility])02/21/2025amboo flowsheet [facility] OBGYMayelin [address] [place] [address] Trista Pan, DO 5Clinisync Result Encounter NOMS External Department Unsolicited Provider, Generic External Data 02/16/2025linisync Result Encounter NOMS External Department Unsolicited Trista Pan, DO 02/15/2025linisync Result Encounter NOMS External Department Unsolicited Trista Pan, DO 02/15/2025Telephone [facility]BGYMay[facility] [place] [phone] Trista Pan DO 02/09/2025Telephone [facility] [address] [facility] [place] [address] Nasreen Figueroa MA 02/07/2025 10:20 AM EDTRoutine [facility] [address] [place] [address] Trista Pan, Third trimester ([facility]); 33 weeks gestation of ([facility])02/07/2025amboo flowsheet [facility] [address] [place] [phone] Trista Pan DO 02/02/2025linisync Result Encounter NOMS External Department Unsolicited Provider, Generic External Data 01/30/2025bstract [facility] [address] [facility] [place] [address] Ameena Booker MA 01/24/2025 10:00 AM EDTRoutine [facility] [address] [place] [address] Trista Pan DO Encounter for ultrasound recheck of choroid plexus cyst, antepartum ([facility]); Third trimester ([facility]); 31 weeks gestation of ([facility]); size inconsistent with dates ([facility])01/24/2025 9:30 AM EDTAncillary Procedure [facility] [address] [place] [phone] Encounter for ultrasound recheck of choroid plexus cyst, antepartum ([facility])01/09/2025 10:10 AM EDTRoutine [facility] [address] [place] [address] Padmini Gunter, V[place] Third trimester ([facility]); 29 weeks gestation of ([facility]); Choroid plexus cyst01/09/2025amboo flowsheet [facility] [place] [facility] [address] [facility] [place] [address] Padmini Gunter NP 01/05/2025bstract [facility] [address] [facility] [place] [address] Trista Pan DO 12/28/2024 3:20 PM EDTRoutine [facility] OBCL[facility] [address] [facility] [place] [address] Daja Ryan PA Second trimester ([facility]); 27 weeks gestation of ([facility])12/28/2024amboo flowsheet [facility] OBCL[facility] [address] [facility] [place] [address] Daja Ryan PA from Last 3 Months Immunizations ImmunizationAdministration DatesNext VelROW731DTaP, Mxyjesxdanb62/17/2003 ,05/15/1998,1997,1997,1997HPV, Phtdqljrimnk69/22/2011, 02/05/2010,11/26/2009Hep B, Adolescent or Gtoafkcun38/23/1998,1997HiB, ngfwmojdlte64/27/1998,1997Hib (PRP-T)05/15/1998Hib / Hep B009/11/1997IPV 10/27/2002,05/15/1998,1997,1997MMR10/27/2002,05/15/1998Tdap 11/26/2009 Family History Medical HistoryRelationNameCommentsNo Known ProblemsBrother2 brothersNo Known ProblemsDaughterCancerMotherbernadetteMental illnessMotherbernadettemanic depressive bipolar disorderBreast cancerPaternal GrandmotherdebCancerPaternal PnajrmxypdyroiQudsbztpXaepDgfadzVrjsawelAkniplb3MltvsbnpExjrqAbclrfOgyvtQfhlaleg GrandmotherMotherbernadetteAlivePaternal GrandmotherdebAlive Social History Tobacco UseTypesPacks/DayYears UsedDateSmoking Tobacco: FormerCigarettes0.55 Smokeless Tobacco: Never Tobacco Cessation:Counseling Given: Not Answered Alcohol UseStandard Drinks/WeekCommentsNever0 (1 standard drink = 0.6 oz pure alcohol)caffeine: 1-2 cups coffee or energy drink hhwxturlcatmZ8648 Health LiteracyAnswerDate RecordedHow often do you need [...] relatives?Twice a week09/24/2023How often do you attend confucianism or yazidism services?Patient ukhxutpz12/13/2024o you belong to any clubs or organizations such as confucianism groups, unions, fraternal or athletic groups, or school groups?No09/24/2023How often do you attend meetings of the clubs or organizations you belong to?Never09/24/2023re you , , , , never , or living with a partner?Patient tfvvxnky91/13/2024 AUDIT-CAnswerDate RecordedQ1: How often do you have [...] at all 09/24/2023HQ-2AnswerDate RecordedPatient Health Questionnaire-2 Score0 07/18/2024[facility] [place] [facility] - Occupational Stress QuestionnaireAnswerDate [...] homeless or living in a fdc (including now)?No09/24/2023Estimated Date of Delivery PmdlyvkoRzd41/14/2025Based on last menstrual period of 06/19/2024Sex and Gender InformationValueDate RecordedSex Assigned at BirthNot on fileLegal SexFemale 06/25/2022 6:40 PM EDTGender IdentityNot on fileSexual OrientationNot on file Last Filed Vital Signs Vital SignReadingTime TakenCommentsBlood Evygvbwh374/5812 3:35 PM EST Aouwk8197 8:15 AM SJIVyvcezluqwd96 ??C (95 ??F)06/10/2024 8:03 AM EST Respiratory Lxlm5482 8:15 AM EDTOxygen Fiifssixcj09%07/18/2024 8:15 AM EDTInhaled Oxygen Concentration--Smzroe95.9 kg (185 lb)03/20/2025 3:35 PM EST Qvarrt318.2 cm (5' 7 )07/18/2024 8:15 AM EDTBody Mass Index28.98007/18/2024 8:15 AM EDT Plan of Treatment Health MaintenanceDue DateLast DoneCommentsCOVID-19 Vaccine ( season) /, 09/11/2020Influenza Vaccine (#1)2024Pneumococcal Vaccine: Pediatrics (0 to 5 Years) and At-Risk Patients (6 to 64 Years)Aged Out No longer eligible based on patient's age to complete this topic Procedures Procedure NamePriorityDate/TimeAssociated DiagnosisCommentsPOCT URINALYSIS KBECBCQSOrjblke75/08/2025 3:41 PM EST 39 weeks gestation of ([facility]) POCT URINALYSIS DCZWPWTKLpgwzwb05/02/2025 2:53 PM EST 38 weeks gestation of ([facility]) Third trimester ([facility]) POCT URINALYSIS MMPRPXQPErfrbhu43/26/2025 1:56 PM EST Third trimester ([facility]) RECURRENT VAGINITIS (HTRX)Tuyipxj1302/27/2025 3:07 PM EST POCT URINALYSIS SXOKIVFGHktangr00/17/2025 1:20 PM EST 36 weeks gestation of ([facility]) STREP GP B CULTURE+BSCUGtqbllt62/17/2025 1:03 PM EST POCT URINALYSIS ZKEGRSUZVobcyay54/11/2025 10:47 AM EST 35 weeks gestation of ([facility]) URINE CULTURE - WQQODkwwlld76/08/2025 10:20 PM EST US OB BPP W NON-UKPKKQ8402/16/2025 9:04 AM EST URINE CULTURE, FXDVMFXPqdowlp11/05/2025 11:45 AM EST [facility] URINE MICROSCOPIC WFRHSepafyl99/05/2025 11:45 AM EST [facility] UA (CLEAN/CATCH) GLOST TILE SHADER/MICRO IF IND.Qbznqpe5102/15/2025 11:45 AM EST POCT URINALYSIS DOBNVGISHmriyei87/28/2025 10:33 AM EDT 33 weeks gestation of ([facility]) US OB GWZAVZ5402/02/2025 8:33 AM EDT POCT URINALYSIS VPNRUUKVRpxxfmn43/14/2025 10:23 AM EDT 31 weeks gestation of ([facility]) US OB LIMITED 1+ WPCWGQUMpqplum45/14/2025 10:06 AM EDT Encounter for ultrasound recheck of choroid plexus cyst, antepartum ([facility]) POCT URINALYSIS DZIADVVVJlighmh97/29/2025 10:19 AM EDT Third trimester ([facility]) POCT URINALYSIS VOLBTQKOYmlslsf83/17/2025 3:47 PM EDT Second trimester ([facility]) 27 weeks gestation of ([facility]) from Last 3 Months Results * POCT urinalysis dipstick manually resulted (03/20/2025 3:41 PM EST) Only the most recent of9 resultswithin the time period is included. ComponentValueRef [...] Location / LateralityCollection Method / VolumeCollection TimeReceived FnirFytnv36/08/2025 3:41 PM EST Narrative Authorizing ProviderResult TypeResult StatusCorey Maxim DOPOINT OF CARE TEST ENTER/EDIT ORDERABLESFinal Result * RECURRENT VAGINITIS (HTRX) (02/27/2025 3:07 PM EST)ComponentValueRef RangeTest MethodAnalysis TimePerformed AtPathologist SignatureATOPOBIUM CVCMBDE012.961 - 24.689 ppm02/28/2025 8:25 AM ESTHealthTrackRx at LabDecatur County Memorial HospitalATOPOBIUM VAGINAENot Nnkblfhc27.961 - 24.689 ppm02/28/2025 8:25 AM ESTHealthTrackRx at LabPortBVAB 2,3 (BACTERIAL VAGINOSIS ASSOCIATED BACTERIA 2, 3); MOBILUNCUS QOI960.961 - 24.689 ppm02/28/2025 8:25 AM ESTHealthTrackRx at LabPortBVAB 2,3 (BACTERIAL VAGINOSIS ASSOCIATED BACTERIA 2, 3); MOBILUNCUS SPPNot Jqfymslm42.961 - 24.689 ppm02/28/2025 8:25 AM ESTHealthTrackRx at LabPortCANDIDA ALBICANS, PARAPSILOSIS, BFPOMHDABL838.000 - 30.347 ppm02/28/2025 8:25 AM EST [facility] at LabPortCANDIDA ALBICANS, PARAPSILOSIS, TROPICALISNot Detected 23.000 - 30.347 ppm02/28/2025 8:25 AM ESTHealthTrackRx at LabPortCANDIDA RIPOVNDE628.000 - 31.618 ppm02/28/2025 8:25 AM ESTHealthTrackRx at LabPort REAL GLABRATANot Mjduvalv17.000 - 31.618 ppm02/28/2025 8:25 AM EST [facility] at LabPortCANDIDA KXEGZN898.000 - 30.873 ppm02/28/2025 8:25 AM ESTHealthTrackRx at LabPortCANDIDA KRUSEINot Iwjcsweh56.000 - 30.873 ppm 02/28/2025 8:25 AM ESTHealthTrackRx at LabPortCHLAMYDIA TTHNQGEBLCU628.000 - 31.586 ppm02/28/2025 8:25 AM ESTHealthTrackRx at LabPortCHLAMYDIA TRACHOMATIS Not Qjsslble82.000 - 31.586 ppm02/28/2025 8:25 AM ESTHealthTrackRx at LabPort GARDNERELLA GWEYKZIXC677.961 - 24.689 ppm02/28/2025 8:25 AM ESTHealthTrackRx at LabPortGARDNERELLA VAGINALISNot Zfzqgwdq14.961 - 24.689 ppm02/28/2025 8:25 AM ESTHealthTrackRx at LabPortMEGASPHAERA (TYPES 1, 2)019.961 - 24.689 ppm 02/28/2025 8:25 AM ESTHealthTrackRx at LabPortMEGASPHAERA (TYPES 1, 2)Not Dokpbqgg46.961 - 24.689 ppm02/28/2025 8:25 AM ESTHealthTrackRx at LabPort NEISSERIA YCPXATLIHNQ569.000 - 32.587 ppm02/28/2025 8:25 AM ESTHealthTrackRx at LabPortNEISSERIA GONORRHOEAENot Vuxyrhzy85.000 - 32.587 ppm02/28/2025 8:25 AM ESTHealthTrackRx at LabPortTRICHOMONAS BUDFTIZKV561.000 - 31.995 ppm 02/28/2025 8:25 AM ESTHealthTrackRx at LabPortTRICHOMONAS VAGINALISNot Ivthmvkp07.000 - 31.995 ppm02/28/2025 8:25 AM ESTHealthTrackRx at LabPort MYCOPLASMA RZVDZRWZYD627.961 - 24.689 ppm02/28/2025 8:25 AM ESTHealthTrackRx at LabPortMYCOPLASMA GENITALIUMNot Gfcrlahi21.961 - 24.689 ppm02/28/2025 8:25 AM ESTHealthTrackRx at LabDecatur County Memorial HospitalSpecimen (Source)Anatomical Location / LateralityCollection Method / VolumeCollection TimeReceived TimeTissue 02/27/2025 3:07 PM EST02/28/2025 2:19 AM EST Narrative Authorizing ProviderResult TypeResult StatusPadmini Gunter NPLAB BLOOD ORDERABLESFinal ResultPerforming OrganizationAddressCity/State/ZIP CodePhone Number [facility] LabDec[facility] [address] [address] * STREP GP B CULTURE+RFLX (02/27/2025 1:03 PM EST)ComponentValueRef RangeTest MethodAnalysis TimePerformed AtPathologist SignatureSTREP GP B CULTURE+RFLX ??Strep Gp B Culture+Rflx TBHSTREP GP B CULTURE+RFLXNegativeTBHSTREP GP B CULTURE+RFLXCenters for Disease Control and Prevention (CDC) andTBHSTREP GP B CULTURE+RFLXAmerican Congress of Obstetricians and GynecologistsTBHSTREP GP B CULTURE+RFLX(ACOG) guidelines for prevention of group BTBHSTREP GP B CULTURE+RFLXstreptococcal (GBS) disease specify co-collection ofTBHSTREP GP B CULTURE+RFLXa vaginal and rectal swab specimen to maximizeTBHSTREP GP B CULTURE+RFLXsensitivity of GBS detection. Per the CDC and ACOG,TBHSTREP GP B CULTURE+RFLXswabbing both the lower vagina and rectumTBHSTREP GP B CULTURE+RFLXsubstantially increases the yield of detectionTBHSTREP GP B CULTURE+RFLXcompared with sampling the vagina alone.TBH STREP GP B CULTURE+RFLXPenicillin G, ampicillin, or cefazolin are indicatedTBH STREP GP B CULTURE+RFLXfor intrapartum prophylaxis of GBSTBHSTREP GP B CULTURE+RFLXcolonization. Reflex susceptibility testing should beTBHSTREP GP B CULTURE+RFLXperformed prior to use of clindamycin only on GBSTBHSTREP GP B CULTURE+RFLXisolates from penicillin-allergic women who areTBHSTREP GP B CULTURE+RFLXconsidered a high risk for anaphylaxis. Treatment withTBHSTREP GP B CULTURE+RFLXvancomycin without additional testing is warranted ifTBHSTREP GP B CULTURE+RFLXresistance to clindamycin is noted.TBHSTREP GP B CULTURE+RFLX Performed at: - [facility]tonTBHSTREP GP B CULTURE+[id number] [place], [place] [id number] GP B CULTURE+RFLXLab Director: Anthony Harrison PhD, Phone: [phone] (Source)Anatomical Location / Laterality Collection Method / VolumeCollection TimeReceived Time02/27/2025 1:03 PM EST 02/28/2025 7:01 AM EST Narrative CLINISYNC - 03/04/2025 4:13 PM EST Authorizing ProviderResult TypeResult StatusKristina Jani NPLAB BLOOD ORDERABLESFinal ResultPerforming OrganizationAddressCity/State/ZIP CodePhone Number [facility] * URINE CULTURE - FR (02/18/2025 10:20 PM EST)ComponentValueRef RangeTest MethodAnalysis TimePerformed AtPathologist SignatureURINE CULTURE - FR ??Urine Culture - [facility] SEEFR [facility] RESULT^[facility] RESULT TBHURINE CULTURE - FRMCSEEN SEE SCANNED REPORT, NORMAL^SEE SCANNED REPORT, NORMALTBHSpecimen (Source)Anatomical Location / LateralityCollection Method / VolumeCollection TimeReceived Time02/18/2025 10:20 PM EST02/18/2025 10:25 PM EST Narrative CLINISYNC - 02/22/2025 3:07 PM EST Authorizing ProviderResult TypeResult StatusGeneric External Data ProviderLAB BLOOD ORDERABLESFinal ResultPerforming OrganizationAddressCity/State/ZIP Code Phone Number [facility] * US OB BPP W NON-STRESS (02/16/2025 9:04 AM EST)Anatomical Region LateralityModalityOtherSpecimen (Source)Anatomical Location / Laterality Collection Method / VolumeCollection TimeReceived Time02/16/2025 9:04 AM EST Narrative 02/16/2025 9:06 AM EST [facility] ?[address] ? [place] [address] ? Ultrasound Report ? Signed ? Patient: SIMI,FAHEEM R ?MR#: [id number] ?? : 1995 ?Acct:[id number] ?? Age/Sex: 30 / F ?ADM Date: ?? Loc: [facility] ??256-1 ? Attending Dr: Trista Maxim D.O. ? Ordering Physician: Trista Pan D.O. ?? Date of Service: 02/15/25 ?? Procedure(s): US OB BPP w non-stress ?? Accession Number(s): [id number] ? cc: SRI RAMÍREZ ; Trista Pan D.O. ? [facility] ? [address] ? [place] [address] ? Patient Name: ?? FAHEEM BELCHER ? MRN: [facility]:[id number] ? date: 1995 ?Sex: F ?? Assigned Patient Location: [facility] ?? Current Patient Location: ? Accession/Order Number: [id number] ?? Exam Date: 02/15/2025 ??14:44 ?Report Date: [...] Dictation Location: RADIO-PC-02 ? Electronically authenticated by: [id number] ??Y ?? Date: 02/16/2025 ??09:04 ? Dictated By: ?Ana Michael M.D. ? Signed By: ?02/16/25 0906 ? DD/ 0904 ? TD/TT: ? General Studies Program Chair: Procedure Note Radiology, Radiologist, MD - 02/16/2025 [place] [address] Ultrasound Report Signed Patient: FAHEEM BELCHER RMR#: [id number] : 1995Acct:[id number] Age/Sex: 30 / FADM Date: Loc: [facility] 256-[address]: Trista Pan D.O. Ordering Physician: Trista Pan D.O. Date of Service: 02/15/25 Procedure(s): US OB BPP w non-stress Accession Number(s): [id number] cc: SRI RAMÍREZ ; Trista Pan D.O. The [place] [address] Patient Name: FAHEEM BELCHER MRN: [id number] date: 1995 Sex: F Assigned Patient Location: [facility] Current Patient Location: Accession/Order Number: [id number] Exam Date: 02/15/2025 14:44 Report Date: 02/16/2025 [...] Michael M.D. 02/16/2025 9:04 AM Dictation Location: [place] [address] Electronically authenticated by: [id number] Y Date: 9:04 Dictated By: Ana Michael M.D. Signed By:02/16/25905 DD/ 3 TD/TT: General Studies Program Chair: Authorizing ProviderResult TypeResult StatusCorey Maxim DOCLINISYNC IMAGING Edited Result - Final * URINE CULTURE, ROUTINE (02/15/2025 11:45 AM EST)ComponentValueRef RangeTest MethodAnalysis TimePerformed AtPathologist SignatureURINE CULTURE, ROUTINE ??Urine Culture, Routine TBHURINE CULTURE, ROUTINECulture shows less than 10,000 colony forming units of bacteria perTBHURINE CULTURE, ROUTINEmilliliter of urine. This colony count is not generally consideredTBHURINE CULTURE, ROUTINEto be clinically significant. TBHURINE CULTURE, ROUTINEPerformed at: [facility] HospitalTBHURINE CULTURE, [id number] [place], [place] [id number] CULTURE, ROUTINELab Director: Anthony Harrison PhD, Phone: [phone] (Source)Anatomical Location / LateralityCollection Method / VolumeCollection [...] 11:45 AM EST02/15/2025 2:00 PM EST Narrative LIN[facility] - 02/15/2025 2:20 PM EST Authorizing ProviderResult TypeResult StatusCorey Maxim DOCLINISYNCFinal Result Performing OrganizationAddressCity/State/ZIP CodePhone Number [facility] * (ABNORMAL) [facility] UA (CLEAN/CATCH) GLOST TILE SHADER/MICRO IF IND. (02/15/2025 11:45 AM EST) ComponentValueRef RangeTest MethodAnalysis TimePerformed AtPathologist SignatureCOLOR URINELT. YELLOWYELLOWTBHCLARITY URINECLEARCLEARTBHSPECIFIC GRAVITY URINE1.0101.005 - 1.025TBHPH URINE7.05.0 - 9.0TBHPROTEIN URINENEGATIVE NEG/TRACE mg/dLTBHGLUCOSE URINE UANEGATIVENEGATIVE mg/dLTBHBILIRUBIN URINE NEGATIVENEGATIVETBHKETONES URINENEGATIVENEGATIVE mg/dLTBHBLOOD URINENEGATIVE NEGATIVETBHNITRITE URINENEGATIVENEGATIVETBHUROBILINOGEN URINE0.20.2 - 1.0 EU/dLTBHLEUKOCYTE ESTERASE URINETRACE(A)NEGATIVETBHURINE MICROSCOPIC INDICATED YESTBHSpecimen (Source)Anatomical Location / LateralityCollection Method / VolumeCollection TimeReceived Time02/15/2025 11:45 AM EST02/15/2025 2:00 PM EST Narrative ANILA - 02/15/2025 2:20 PM EST Authorizing ProviderResult TypeResult StatusCorey Maxim DOCLINISYNCFinal Result Performing OrganizationAddressCity/State/ZIP CodePhone Number [facility] * US OB GROWTH (02/02/2025 8:33 AM EDT)Anatomical RegionLateralityModalityOther Specimen (Source)Anatomical Location / LateralityCollection Method / Volume Collection TimeReceived Time02/02/2025 8:33 AM EDT Narrative 02/02/2025 8:35 AM EDT [facility] ?[address] ? [place] [address] ? Ultrasound Report ? Signed ? Patient: SIMI,FAHEEM R ?MR#: [id number] ?? : 1995 ?Acct:[id number] ?? Age/Sex: 29 / F ?ADM Date: 10/22/25 ?? Loc: US ? Attending Dr: Trista Pan D.O. ? Ordering Physician: Trista Pan D.O. ?? Date of Service: 02/01/25 ?? Procedure(s): US OB growth ?? Accession Number(s): [id number] ? cc: SRI RAMÍREZ ; Trista Pan D.O. ? [facility] ? [address] ? [place] [address] ? Patient Name: ?? FAHEEM BELCHER ? MRN: [facility]:[id number] ? date: 1995 ?Sex: F ?? Assigned Patient Location: US ?? Current Patient Location: ? Accession/Order Number: [id number] ?? Exam Date: 02/01/2025 ??13:36 ?Report Date: [...] M.D. ??02/02/2025 8:33 AM ? Dictation Location: [place] [address] ? Electronically authenticated by: [id number] ??Y ?? Date: 02/02/2025 ??08:33 ? Dictated By: ?Ana Michael M.D. ? Signed By: ?02/02/25 0835 ? DD/ 0833 ? TD/TT: ? General Studies Program Chair: Procedure Note Radiology, Radiologist, MD - 02/02/2025 [place] [address] Ultrasound Report Signed Patient: FHAEEM BELCHER RMR#: [id number] : 1995Acct:[id number] Age/Sex: 29 / FADM Date: 02/01/25 Loc: US Attending Dr: Trista Pan D.O. Ordering Physician: Trista Pan D.O. Date of Service: 02/01/25 Procedure(s): US OB growth Accession Number(s): [id number] cc: SRI RAMÍREZ ; Trista Pan D.O. The [address] [address] Patient Name: FAHEEM BELCHER MRN: [id number] date: 1995 Sex: F Assigned Patient Location: [place] Current Patient Location: Accession/Order Number: [id number] Exam Date: 02/01/2025 13:36 Report Date: 02/02/2025 [...] Michael M.D. 02/02/2025 8:33 AM Dictation Location: [place] [address] Electronically authenticated by: [id number] Y Date: 508:33 Dictated By: Ana Michael M.D. Signed By:02/02/2535 DD/ 2 TD/TT: General Studies Program Chair: Authorizing ProviderResult TypeResult StatusGeneric External Data Provider [...] Díaz MD Authorizing ProviderResult TypeResult StatusCorey Maxim LINDO OB US PROCEDURES Final Result from Last 3 Months Insurance Care Teams Team MemberRelationshipSpecialtyStart DateEnd Date Sri Ramírez MD [address] [place] [address] PCP - GeneralFamily Medicine09/19/22 [place] [address] [place] [id number] Referring Physician09/19/22
--- OUTSIDE RECORDS SUMMARY | 2025-03-21 05:25 | XMS_ITS | Encounter Summary ---
Author Organization [facility] Address [address] [place] [address] Care Team Providers Care Intermediate Frame Tender Name Role Phone Sri Ramírez MD Primary Care Provider [phone] Kayla Kahn DO Unavailable [phone] Encounter Details DateTypeDepartmentCare Team (Latest Contact Info)Zrbgwzaytgl34/02/2025amboo flowsheet [facility] [address] [place] [address] Jose Pan DO [address] [place] [id number] Social History Tobacco UseTypesPacks/DayYears UsedDateSmoking Tobacco: FormerCigarettes0.55 Smokeless Tobacco: NeverAlcohol UseStandard Drinks/WeekCommentsNever0 (1 standard drink = 0.6 oz pure alcohol)caffeine: 1-2 cups coffee or energy drink [id number] Health LiteracyAnswerDate RecordedHow often do you need [...] a week 09/24/2023How often do you attend yazdanism or denominational services?Patient declined 09/24/2023o you belong to any clubs or organizations such as yazdanism groups, unions, fraternal or athletic groups, or school groups?No09/24/2023How often do you attend meetings of the clubs or organizations you belong to?Never09/24/2023 Are you , , , , never , or living with a partner?Patient egpuomny12/13/2024UDIT-CAnswerDate RecordedQ1: How often do you have a [...] heating?Not hard at all09/24/2023HQ-2AnswerDate RecordedPatient Health Questionnaire-2 [id number] [place] of Occupational Health - Occupational Stress QuestionnaireAnswerDate [...] a correction (including now)?No09/24/2023 Estimated Date of XfbmvbslKjswobszDlt28/14/2025ased on last menstrual period of 06/19/2024Sex and Gender InformationValueDate RecordedSex Assigned at BirthNot on fileLegal EhkXbfays88/15/2023 6:40 PM EDTGender IdentityNot on file Sexual OrientationNot on filedocumented as of this encounter Plan of Treatment Not on file documented as of this encounter Visit Diagnoses Not on filedocumented in this encounter Care Teams Team MemberRelationshipSpecialtyStart DateEnd Date Sri Ramírez MD [address] [place] [address] PCP - GeneralFamily Medicine09/19/22 [place] [address] [place] [id number] Referring Physician09/19/22documented as of this encounter
--- OUTSIDE RECORDS SUMMARY | 2025-03-21 05:25 | XMS_ITS | Encounter Summary ---
Author Organization [facility] Address [address] [place] [address] Care Team Providers Care Addresser Name Role Phone Sri Ramírez MD Primary Care Provider [phone] Kayla Kahn DO Unavailable [phone] Encounter Details DateTypeDepartmentCare Team (Latest Contact Info)Yvuyzlrtzjm40/26/2025amboo flowsheet [facility] [address] [address] Jose Pan DO [address] [place] [id number] Social History Tobacco UseTypesPacks/DayYears UsedDateSmoking Tobacco: FormerCigarettes0.55 Smokeless Tobacco: NeverAlcohol UseStandard Drinks/WeekCommentsNever0 (1 standard drink = 0.6 oz pure alcohol)caffeine: 1-2 cups coffee or energy drink [id number] Health LiteracyAnswerDate RecordedHow often do you need [...] a week 09/24/2023How often do you attend yazidi or taoist services?Patient declined 09/24/2023o you belong to any clubs or organizations such as yazidi groups, unions, fraternal or athletic groups, or school groups?No09/24/2023How often do you attend meetings of the clubs or organizations you belong to?Never09/24/2023 Are you , , , , never , or living with a partner?Patient rbofbaqu16/13/2024UDIT-CAnswerDate RecordedQ1: How often do you have a [...] heating?Not hard at all09/24/2023HQ-2AnswerDate RecordedPatient Health Questionnaire-2 Ipxno313[facility] [place] of Occupational Health - Occupational Stress QuestionnaireAnswerDate [...] or living in a residential (including now)?No09/24/2023 Estimated Date of EccxmxwkMbpoozzwTir63/14/2025ased on last menstrual period of 06/19/2024Sex and Gender InformationValueDate RecordedSex Assigned at BirthNot on fileLegal TmnXrdfth76/15/2023 6:40 PM EDTGender IdentityNot on file Sexual OrientationNot on filedocumented as of this encounter Plan of Treatment Not on file documented as of this encounter Visit Diagnoses Not on filedocumented in this encounter Care Teams Team MemberRelationshipSpecialtyStart DateEnd Date Sri Ramírez MD [address] [facility] [place] [address] PCP - GeneralFamily Medicine09/19/22 [place] [address] [place] [id number] Referring Physician09/19/22documented as of this encounter
--- OUTSIDE RECORDS SUMMARY | 2025-03-21 05:25 | XMS_ITS | Patient Health Record ---
Author Organization [facility] es Address [address] [place] [address] Care Team Providers Care Credit Collections Rep Name Role Phone Dr. Elpidio Michelle Primary Care Provider [phone] Reason For Referral No Information Plan Of Treatment No Information Insurance Providers Payer Name Payer Address Payer Phone Subscriber Number Group Number Insured Name Patient Relationship to Insured Coverage Start Date Coverage End Date zDENTAL SHERIEANTHONYRaymundo-termed [address] [place] [address] [id number] Fadi BASURTO - patient is the [id number] 2020[employer] [employer] after SHERIEANTHONYRaymundo-termed [address] [place] [phone] [id number], HAILEYSelf - patient is the [id number] 2020
[2025-03-21 06:15] LABS: Hematocrit 40.3 % (36.0-48.0); Hemoglobin 13.9 g/dL (12.0-16.0); Mean Corpuscular HGB Conc 34.5 g/dL (29.9-35.2); Mean Corpuscular Hemoglobin 31.7 pg (26.7-34.0); Mean Corpuscular Volume 91.8 fL (81.0-99.0); Platelet Count 206 10^3/uL (150-450); Red Blood Count 4.39 10^6/uL (4.20-5.40); White Blood Count 11.8 10^3/uL (4.0-11.0)
[2025-03-21 06:27] LABS: Cannabinoid Screen Urine NEGATIVE (NEGATIVE); Methamphetamines Screen Urine NEGATIVE (NEGATIVE); Tricyclic Antidepressant Urine NEGATIVE (NEGATIVE)
[2025-03-21] MEDS: 0.9 % SODIUM CHLORIDE 1,000 ML 125 ML IV ×2 (06:58→11:25)
[2025-03-21] MEDS: OXYTOCIN/0.9 % SODIUM CHLORIDE 10 UNITS/500 ML PLAST..BAG 6 UNIT IV (08:30)
[2025-03-21] MEDS: ROPIVACAINE HCL/PF 400 MG/200 ML PREMIX 6 MG EPIDURAL (11:24)
--- NOTE | 2025-03-21 13:36 | PM.OBPRCVD ---
Procedure Intrapartal events: None Induction method: per pitocin protocol Delivery augmentation: rupture of membranes and pitocin Delivery monitor: external FHT and external uterine Route of delivery: Episiotomy Description: none L&D Laceration Description: none Estimated blood loss (mL): 5 Anesthesia type: Epidural Disposition: floor Infant Delivery date: 03/21/25 Gender: female presentation: vertex Placental delivery description: Spontaneous cord description: 3 Vessels
[2025-03-21] MEDS: OXYTOCIN/0.9 % SODIUM CHLORIDE 20 UNITS/1,000 ML PLAST..BAG 125 UNIT IV (14:05)
[2025-03-22] MEDS: IBUPROFEN 600 MG TABLET PO ×2 (00:14→09:50)
[2025-03-22 06:24] LABS: Hematocrit 36.8 % (36.0-48.0); Hemoglobin 12.6 g/dL (12.0-16.0); Immature Granulocytes Abs Auto 0.14 10^3/uL (0.00-0.03); Immature Granulocytes Pct Auto 1.0 % (0.0-0.5); Lymphocytes Absolute Auto 2.2 10^3/uL (1.2-3.8); Mean Corpuscular HGB Conc 34.2 g/dL (29.9-35.2); Mean Corpuscular Hemoglobin 32.1 pg (26.7-34.0); Mean Corpuscular Volume 93.6 fL (81.0-99.0); Platelet Count 173 10^3/uL (150-450); Red Blood Count 3.93 10^6/uL (4.20-5.40); White Blood Count 14.5 10^3/uL (4.0-11.0)
--- NOTE | 2025-03-22 07:40 | P.OBPN_ITS ---
OB - PN: Subj Subjective Patient comments: no complaints and pain well controlled [place] status: doing well Exam Constitutional Vital Signs, click to edit/add: Last Vital Signs Temp 97.4 F L 03/21/25 23:01 Pulse 74 03/21/25 23:01 Resp 16 03/21/25 23:01 BP 125/76 03/21/25 23:01 O2 Del Method Room Air 03/21/25 23:06 Documenting provider has reviewed patient's vital signs: yes Common normals: no apparent distress Respiratory Common normals: normal respiratory effort and clear to auscultation bilaterally Cardio Common normals: regular rate and regular rhythm GI Common normals: Normal to inspection, nondistended, normoactive bowel sounds present Extremity Common normals: no clubbing, cyanosis or edema and no calf tenderness Results Labs Labs: Short CBC 03/22/25 Range/Units 06:15 WBC 14.5 H (4.0-11.0) 10^3/uL Hgb 12.6 (12.0-16.0) g/dL Hct 36.8 (36.0-48.0) % Plt Count 173 (150-450) 10^3/uL OB - PN: A/P Plan - Vaginal Delivery day: 1 Plan: routine care, discharge home and follow up 6 weeks Time Spent with Patient Time: Total time spent is greater than 50% in coordination of care (as documented) at patient's floor/unit and/or counseling patient: Total time spent with greater than 50% in coordination of care (as documented) at patient's floor/unit and/or counseling patient: less than 15 minutes
[2025-03-22 09:44] VITALS: BP 126/81; PULSE 96
[2025-03-22] MEDS: DOCUSATE SODIUM 100 MG CAPSULE PO (09:50)
[2025-03-22 09:55] VITALS: BP 126/81; PULSE 96; TEMP 36.7
== END 2025-03-22 16:40 | disposition home or self-care (01) | DRG 807 ==
PROVIDERS: Admitting Provider Obstetrics & Gynecology; PCP Family Medicine; Visit Provider Obstetrics & Gynecology
DX: O99.344 Other mental disorders complicating childbirth (principal); Z37.0 Single live birth; F31.9 Bipolar disorder, unspecified; F41.9 Anxiety disorder, unspecified; Z3A.39 39 weeks gestation of pregnancy; Z87.440 Personal history of urinary (tract) infections; Z87.442 Personal history of urinary calculi
CPT/HCPCS: 36415; 51701; 59050; 59410; 80307; 85025; 85027; 86850; 86900; 86901; J0665; J2795

== ENCOUNTER 2025-03-24 09:14 | Outpatient (OUT) | payer BC, SELFPAY ==
--- NOTE | 2025-03-24 15:12 | PC.NURSE ---
Sarah and 4 day old daughter Betty arrive for follow up appointment. Sarah states is doing well, reports breasts are fully engorged and uncomfortable. States This is where I quit the last time Pleased that is feels confident in ability to continue to breast feed infant this time. Mom denies complaints for self, states feels well. VSS and assessment WNL. has 4-5 wets daily and 4 brown yellow stools in last 24 hours. Infant latching well, cues for feeds and feeds every 1-3 hours. Betty with VSS and assessment WNL. Transcutaneous bili 9.9. Assessment WNL, baby roots for feeding. Mom able to latch infant well independently. Minor adjustments in positioning made to increase comfort for mom. Noted to increase swallows as well. Sarah pleased with ability to latch infant her self with feeding well. Finished nursing 25/01, burped well. Couplet home with plans to attend [facility] 03/28/2025. Aware to call for questions.
[2025-03-24 15:13] VITALS: BP 119/61; PULSE 96; TEMP 36.6; O2SAT 96
== END 2025-03-24 15:20 | disposition home or self-care (01) ==
LOC: FBCO 09:18
PROVIDERS: PCP Family Medicine; Visit Provider Obstetrics & Gynecology
DX: Z39.2 Encounter for routine postpartum follow-up (principal)